=== PATIENT | female | born 1955 | race Caucasian/White ===

== ENCOUNTER 2018-03-17 16:45 | Outpatient (REF) | payer MEDICARE, MEDICAID, SELFPAY ==
[2018-03-17 20:09] LABS: TSH 4.51 uIU/mL (0.358-3.74)
== END 2018-03-17 17:05 ==
LOC: NCHCN 16:45
PROVIDERS: PCP Internal Medicine; Visit Provider Internal Medicine
DX: R26.81 Unsteadiness on feet (principal); E05.00 Thyrotoxicosis with diffuse goiter without thyrotoxic crisis or storm; I10 Essential (primary) hypertension; L84 Corns and callosities
CPT/HCPCS: 84443

== ENCOUNTER 2018-07-04 13:02 | Inpatient (IN) | payer MEDICARE, MEDICAID, SELFPAY ==
[2018-07-04] VITALS (95 sets, daily range): BP systolic 65–106; BP diastolic 42–90; PULSE 64–99; RESP 9–23; TEMP 36.8–37.2; O2SAT 92–100
--- NOTE | 2018-07-04 13:17 | DI.RAD_ITS ---
SYMPTOMS/DIAGNOSIS: COUGH PORTABLE CHEST: There are no prior comparison exams. The heart size is normal. The film is rotated. The lungs appear clear. No infiltrate or effusion is seen. IMPRESSION: No acute abnormality.
--- NOTE | 2018-07-04 13:22 | ED.GENADUL_ITS ---
Discharge Plan Disposition Patient Disposition: [facility] INPATIENT Condition: Serious Discharge Details Chief Complaint: GenMedical Clinical Impression: Acute hypotension, Acute UTI, Acute dehydration, Acute kidney injury, Cough, Acute hypokalemia Primary Care Provider: Souleymane Muller ED Provider: Bg Gautam Home Meds and New Rx's Prescriptions: No Action loperamide 2 mg Capsule 2 mg PO DAILY AM RF: 0 fluconazole [Diflucan] 150 mg Tablet 150 mg PO ONCE RF: 0 donepezil [Aricept] 10 mg Tablet 10 mg PO DAILY RF: 0 olanzapine [Zyprexa] 5 mg Tablet 10 mg PO DAILY RF: 0 sumatriptan succinate 50 mg Tablet 50 mg PO PRN PRNRF: 0 omeprazole 40 mg Capsule,Delayed Release(Dr/Ec) 40 mg PO DAILY RF: 0 nystatin 100,000 unit/gram Cream 1 applic TOPICAL TID RF: 0 methimazole 5 mg Tablet 5 mg PO DAILY RF: 0 hydrochlorothiazide 25 mg Tablet 25 mg PO DAILY RF: 0 ProAir HFA 90 mcg/actuation Hfa Aerosol Inhaler 2 % Inhalation PRN PRNRF: 0 lisinopril 40 mg Tablet 40 mg PO DAILY RF: 0 cholecalciferol (vitamin D3) [Vitamin D3] 1,000 unit Capsule 1 tab PO DAILY RF: 0 memantine 10 mg Tablet 10 mg PO BID RF: 0 Medical Decision Making This is a 63-year-old female who presents for evaluation of weakness and decreased energy over the last few days. She did have a fever 5 days ago but this is currently gone, and has been gone for the last few days. No episodes of diarrhea or vomiting. No complaint of significant chest or abdominal pain. Physical exam demonstrates slightly low blood pressure however heart rate is reassuring. No fever. PCP was concerned for urinary infection. We will rehydrate the patient, evaluate for any potential infection, and check for an acute abdominal pathology with the patient's slightly firm abdominal hernia. This may be near her baseline, however I do feel that an incarcerated or strangulated hernia does need to be ruled out based on her current clinical presentation. Patient has not eaten anything since last night. 5:01 PM Patient's laboratory workup has returned, she demonstrates notable acute kidney injury with an elevated creatinine, she has an elevated white count, left shift, but no bandemia. No evidence of significant anemia. Potassium is low at 2.6, magnesium is within normal limits. Lactate is elevate. TSH is normal, doubt myxedema coma. Urinalysis is slightly elevated with a WBC count of 5-10, and RBCs of 3-5. Chest x-ray is negative per Dr. Alvarez, CT scan of the abdomen shows a large cystic structure in her anterior abdominal wall but no other significant abnormality or signs of infection. Influenza was negative. In spite of the negative chest x-ray the patient does continue to have a cough. I am unsure as to the exact etiology of her symptoms, however the patient's blood pressure continues to remain low. The patient oscillates between a map of 55 to a map of 65. Trending towards the lower end. 3 units of normal saline were administered to the patient and in spite of this she continued to have low blood pressure. Assessment of the IVC was ineffective secondary to the patient's habitus. However bedside evaluation of her IJ is demonstrated plump internal jugular vessels after fluid resuscitation. In spite of the fluid replacement with the continued low pressure we will start the patient on Levophed, and place a right central line. I have started the patient on Rocephin and azithromycin to cover urinary components with potential community-acquired pneumonia coverage. She demonstrates no evidence of meningitis with no nuchal rigidity, neck pain. We will wait for the hospitalist to call back for admission. 6: 36 PM Case was discussed with Dr. Corey, he agrees with assessment and plan. I have extensively reviewed the treatment plan with the patient. I have addressed all patient concerns at this time. I have also discussed the plan with the admitting physician and they agree with the current assessment and plan and have agreed to assume responsibility for the patient. All parties demonstrate verbal understanding and agreement with our assessment and plan at this time. EKG 18: 23 Rate 75, sinus rhythm, inverted T wave in V1 through V6. No ST elevations or depressions. No previous EKG for comparison Procedure: Internal Jugular Central Venous Catheter Indication: Hemodynamic monitoring/Intravenous access PROCEDURE SUMMARY: A time-out was performed. The patient?s right neck region was prepped and draped in sterile fashion using chlorhexidine scrub. Anesthesia was achieved with 1% lidocaine. The internal jugular vein was accessed under ultrasound guidance using a finder needle.Venous blood was withdrawn. A guidewire was advanced through the needle. A small incision was made with a 10 blade scalpel and the dilator was advanced over the guidewire until appropriate dilation was obtained. The dilator was removed and a triple lumen catheter was a dvanced over the guidewire and secured into place with 2 simple interrupted sutures. At time of procedure completion, all ports aspirated and flushed properly. Post-procedure x-ray shows the tip of the catheter within the superior vena cava. ESTIMATED BLOOD LOSS: 5ml?s The patient tolerated the procedure well there were no complications. HPI General Date/Time Provider Initiated Documentation: 07/04/18 13:03 . HPI Narrative: This is a 63-year-old female with a past medical history of developmental delay, Parkinson's, hypertension, schizophrenia thyroid disease who presents today for evaluation after being sent by her primary care provider in [place]. They report that the patient had a mild fever on Saturday/5 days ago, but none since then. She has had notable weakness since then, and slight difficulty performing her ADLs at home. She has been getting assistance from her sisters. She did see her primary care provider where she was diagnosed with a yeast infection in her groin, started on one oral fluconazole and then topical powder. However in spite of this she is continued to be weak, family states that she appears to be off her normal baseline. Normal mental status though is near baseline per her PCP. Due to the patient's developmental delay she has no additional complaints. No history of vomiting, diarrhea, hematemesis, hematochezia, melena, or acholic stool. No complaint of severe abdominal pain but she does admit to mild abdominal pain over the location of her abdominal hernia. Past surgical history is positive for multiple hernia repairs. Patient and family deny any IV or illicit drug use. No other complaints at this time. No other modifying factors. Related Data Home Medications Medication Instructions Recorded Confirmed albuterol sulfate [ProAir HFA] 2 % INHALATION PRN PRN 07/04/18 07/04/18 cholecalciferol (vitamin D3) 1 tab PO DAILY 07/04/18 07/04/18 [Vitamin D3] donepezil [Aricept] 10 mg PO DAILY 07/04/18 07/04/18 fluconazole [Diflucan] 150 mg PO ONCE 07/04/18 hydrochlorothiazide 25 mg PO DAILY 07/04/18 07/04/18 lisinopril 40 mg PO DAILY 07/04/18 07/04/18 loperamide 2 mg PO DAILY AM 07/04/18 07/04/18 memantine 10 mg PO BID 07/04/18 07/04/18 methimazole 5 mg PO DAILY 07/04/18 07/04/18 nystatin 1 applic TOPICAL TID 07/04/18 07/04/18 olanzapine [Zyprexa] 10 mg PO DAILY 07/04/18 07/04/18 omeprazole 40 mg PO DAILY 07/04/18 07/04/18 sumatriptan succinate 50 mg PO PRN PRN 07/04/18 07/04/18 Allergies Allergy/AdvReac Type Severity Reaction Status Date / Time Sulfa (Sulfonamide Allergy Mild Skin Rash Unverified 07/04/18 13:11 Antibiotics) General Stated Complaint: GenMedical TIFFANY: 3 Review of Systems Review of Systems All systems reviewed & are unremarkable except as noted in HPI and below PFSH Social History Smoking/Tobacco Use Status: Never Exam Narrative Exam Narrative: 1.Const: Well-nourished, Well-developed, appearing stated age 2.Eyes: PERRL, no conjunctival injection, and symmetrical lids. 3.ENT: Atraumatic external nose and ears. Moist MM. Neck: Symmetric, trachea midline, No thyromegaly. Patient demonstrates good movement of cervical neck. There is no nuchal rigidity, no nuchal tenderness. Patient is able to flex the neck without any difficulty or significant pain. Negative Kernig's and Brudzinski sign. 4.CVS: +S1/S2, No murmurs or gallops. Peripheral pulses 2+ and equal in all extremities. Brisk capillary refill in all extremities. 5.RESP: Unlabored respiratory effort. Clear to auscultation bilaterally. No wheezes rales or rhonchi 6.GI: Soft,Nondistended, No hepatosplenomegaly. No guarding or rebound. Patient does have a notable right-sided periumbilical hernia. It is firm with no evidence of erythema or edema. It is mildly tender on palpation. I am unable to reduce it. 7.MSK: Normocephalic/Atraumatic, Extremities w/o deformity or ttp No cyanosis or clubbing, Normal movement of all extremities 8.Skin: Warm, Dry. Patient does have a chronic left-sided ulcer which is well healed, no evidence of active bleeding or discharge. Excellent all the granulation tissue with no signs of current active ulcer. Minimal erythema under 1 of the patient's pannus folds on the right by her groin. No evidence of severe yeast infection. No evidence of significant decubitus ulcer. 9.Neuro: digital cartographer II-XII grossly intact. Sensation grossly intact, no focal neurologic deficits. 10.Psych: (AAO) x3. Appropriate mood and affect. Patient answers questions appropriately for her mental baseline Course Vital Signs Temperature 36.9 C 07/04/18 13:06 Pulse 81 07/04/18 13:06 Respiratory Rate 18 07/04/18 13:06 Blood Pressure 90/71 L 07/04/18 13:06 Pulse Oximetry 100 07/04/18 13:06 Temperature 36.9 C 07/04/18 13:06 Temperature Source Temporal Artery Scan 07/04/18 13:06 Pulse 81 07/04/18 13:06 Respiratory Rate 18 07/04/18 13:06 Respiratory Effort 07/04/18 13:14 Blood Pressure 90/71 L 07/04/18 13:06 Blood Pressure Position Sitting 07/04/18 13:06 Pulse Oximetry 100 07/04/18 13:06 Oxygen Delivery Method Room Air 07/04/18 13:06 Oxygen Flow Rate 0 07/04/18 13:06
[2018-07-04] MEDS: Normal Saline 1,000 ML 1000 ML IV ×3 (13:29→14:03)
[2018-07-04 13:36] LABS: Lactate-non-spesis 1.9 mmol/L (0.6-1.4)
[2018-07-04 13:38] LABS: Abs Immature Grans 0.05 k/cumm (0.0-0.09); Basophils % 0.3; Eosinophils % 0.3; HCT 40.6 % (36.0-46.0); Immature Grans % 0.3; Lymphocytes % 15.1; Mean Corp. HGB Concentration 34.5 g/dL (32.0-36.0); Mean Corpuscular Hemoglobin 24.7 pg (27.0-33.0); Mean Corpuscular Volume 71.7 fL (80-95); Mean Platelet Volume 10.6 fL (8.0-11.0); Monocytes % 12.1; Neutrophils % 71.9; Platelet Count 525 x1000/uL (130-400); RBC 5.66 m/cumm (4.00-5.20); RBC Distribution Width 15.5 % (11.7-14.6); White Blood Cell Count 14.87 k/cumm (4.4-10.8)
[2018-07-04 13:43] LABS: Bilirubin Negative (Negative); Blood Trace-intact (Negative); Clarity Clear; Glucose Negative (Negative); Ketones Negative (Negative); Leukocyte Esterase Negative (Negative); Nitrite Negative (Negative); Urobilinogen 0.2 EU/dL (Up TO 0.2)
[2018-07-04 13:58] LABS: Absolute Basophil Count 0.04 k/cumm (0.0-0.2); Absolute Eosinophil Count 0.04 k/cumm (0.0-0.7); Absolute Lymphocyte Count 2.25 k/cumm (1.2-3.4); Absolute Neutrophil Count 10.69 k/cumm (1.2-6.7)
[2018-07-04 14:01] LABS: Microcytosis 2+
[2018-07-04 14:06] LABS: ALT 29 U/L (12-78); AST 28 U/L (15-37); Albumin 4.3 g/dL (3.4-5.0); Alkaline Phosphatase 143 U/L (46-116); Anion Gap 12.8 mmol/L (3-11); BUN 20 mg/dL (7-18); Bilirubin, Total 0.5 mg/dL (0.2-1.0); CO2 30.2 mmol/L (21.0-32.0); CREATININE 2.53 mg/dL (0.55-1.02); Chloride 84 mmol/L (98-107); Estimated GFR 19.19 (mL/min/1.73m2); Glucose 107 mg/dL (70-100); Lipase 252 U/L (73-393); Sodium 127 mmol/L (136-145); TSH (W/Ref FT4) 3.03 uIU/mL (0.358-3.74); Total Protein 8.2 g/dL (6.4-8.2)
[2018-07-04 14:09] LABS: Potassium 2.6 mmol/L (3.5-5.1)
[2018-07-04 14:13] LABS: Ovalocytes 2+
[2018-07-04] MEDS: Potassium Chloride 20 MEQ TABCR 40 MEQ PO (14:15)
[2018-07-04] MEDS: POTASSIUM CHLORIDE 20 MEQ/100 ML BAG 50 MEQ IVPB (14:15)
[2018-07-04 14:26] LABS: Bacteria Few HPF (Negative); C & S Indicated? Yes; Casts 3-5 Hyaline LPF (Negative); Crystals Negative HPF (Negative); Epithelial Cells Rare HPF (Negative); Mucus Trace (Negative)
[2018-07-04] MEDS: Breeza Beverage 473 ML BTL PO (15:07)
[2018-07-04] MEDS: Omnipaque 350 MG/ML 50 ML BTL PO (15:07)
--- NOTE | 2018-07-04 15:20 | DI.CT_ITS ---
SYMPTOMS/DIAGNOSIS: SLIGHT CONFUSION, DEVELOPMENTAL DELAY, SLURRED SPEECH NONCONTRAST HEAD CT: There are no prior comparison exams. No intracranial hemorrhage, mass or infarct is seen. There is no evidence of skull fracture. The ventricles are normal in size. The orbits and sinuses are unremarkable. IMPRESSION: Negative head CT.
--- NOTE | 2018-07-04 15:25 | DI.CT_ITS ---
SYMPTOMS/DIAGNOSIS: ABDOMINAL PAIN, KNOWN HERNIA INCREASING IN SIZE X 1 YEAR, PAIN OVER HERNIA SITE, FIRM ANTERIOR HERNIA, NOT EATING WELL, DEVELOPMENTAL DELAY CT OF THE ABDOMEN AND PELVIS: Images were performed from the lung bases through the ischial tuberosities after oral and without IV contrast. The patient has a history of a hernia repair. In the subcutaneous tissue of the midline of the anterior abdomen, near the level of the umbilicus, there is an 11 mm circumscribed fluid collection, likely representing a seroma. No hernia is identified. The lung bases are clear. There is a posteromedial fatty-containing diaphragmatic hernia. The heart size is normal. The liver, spleen, pancreas, kidneys and right adrenal gland are unremarkable. There is a small low density nodule of the left adrenal gland consistent with an adenoma. A single stone is noted in the gallbladder. There is no abnormal gallbladder distention, wall thickening or biliary dilatation. The aorta is tortuous but normal in diameter. A Bell catheter is noted in the bladder, which is decompressed. The uterus and ovaries are unremarkable. There are numerous diverticula seen of the descending and sigmoid colon. There is no evidence of diverticulitis. No small bowel dilatation or wall thickening is seen. IMPRESSION: An 11 cm cyst in the umbilical region. The findings could represent a seroma. No hernia is identified. No acute abnormality is seen intraabdominally.
[2018-07-04] MEDS: AZITHROMYCIN 500 MG in Normal Saline 250 ML 250 MG IVPB (16:41)
--- NOTE | 2018-07-04 16:44 | DI.RAD_ITS ---
SYMPTOMS/DIAGNOSIS: POST LINE PORTABLE CHEST: Comparison is made with exam performed earlier the same day at 1:34 p.m. The exam is limited by respiratory motion. A right internal jugular central venous catheter has been placed. The tip projects in the upper right atrium. No pneumothorax is seen. The lungs are grossly clear but show motion. The heart size is normal. IMPRESSION: Satisfactory placement of central venous catheter.
--- NOTE | 2018-07-04 17:00 | DI.VRAD_ITS ---
EXAM: XR Chest, 1 View EXAM DATE/TIME: 07/04/2018 4:44 PM CLINICAL HISTORY: 63 years old, female; Device placement; Picc TECHNIQUE: XR of the chest, 1 view. COMPARISON: CR XR PORTABLE CHEST AP 07/04/2018 1:34 PM FINDINGS: Tubes, catheters and devices: A right jugular central venous catheter lies with its tip in the superior vena cava. Lungs: Unremarkable. No consolidation. Pleural space: Unremarkable. No pleural effusion. No pneumothorax. Heart/Mediastinum: Unremarkable. No cardiomegaly. Bones/joints: Chronic osseous changes. IMPRESSION: Right jugular venous catheter appears well-positioned. Dictated and Authenticated by: Gurdeep Carlin MD. Ordering:SUKH Pederson MD
[2018-07-04] MEDS: Hydrocortisone SOD SUC. 100 MG VIAL IVP (18:04)
--- NOTE | 2018-07-04 18:48 | HPE_ITS ---
Date of service: 07/04/18 Time of Service: 18:44 Assessment and Plan (1) Hypotension: Current visit: Yes Status: Acute Hypotension, etiology not entirely clear at present infectious source entirely possible but lack of fever and relatively underwhelming urinalysis would be atypical. I am struck by the lack of reflex tachycardia. I see no medications which would revisit be responsible for this and I wonder about a possible cardiogenic factor. Certainly the EKG would be consistent with coronary ischemia although this finding of bradycardia would be most usually associated with an inferior GA and we see no signs of that on EKG. otherwise there are certainly no signs of hemorrhagic shock and the remote possibility of adrenal insufficiency has been covered by empiric hydrocortisone. For now would continue antibiotics, await blood culture and complete rule out protocol In the meantime will replace potassium. The hyponatremia is noted, certainly of the hypovolemic variety. Will hold hydrochlorothiazide of course and continue saline. of course will hold the lisinopril as well given the hypo-to History of Present Illness Chief Complaint: Weakness and hypotension Narrative: Patient is a 63-year-old female with history of developmental delay. She was sent to the emergency room today because of several days of nonspecific weakness. In the emergency room initial findings of note for hypotension with blood pressures in the 60s systolic. She was given fluid resuscitation and started on levophed. Initial laboratory evaluation of note for leukocytosis, low-grade pyuria (5-10 white cells), negative chest x-ray and CT of abdomen unremarkable except for a known cyst in the right lower quadrant. She was given dose of Rocephin and Zithromax along with 100 mg of hydrocortisone. She was admitted for further evaluation and management. The patient herself says she feels entirely well Review of Systems Review of Systems Unobtainable due to mental condition COUNTS INCLUDE 234 BEDS AT THE [facility] Social History Smoking/Tobacco Use Status: Never Meds Home Medications Medication Instructions Recorded Confirmed Type albuterol sulfate [ProAir HFA] 2 % INHALATION PRN PRN 07/04/18 07/04/18 History cholecalciferol (vitamin D3) 1 tab PO DAILY 07/04/18 07/04/18 History [Vitamin D3] donepezil [Aricept] 10 mg PO DAILY 07/04/18 07/04/18 History fluconazole [Diflucan] 150 mg PO ONCE 07/04/18 History hydrochlorothiazide 25 mg PO DAILY 07/04/18 07/04/18 History lisinopril 40 mg PO DAILY 07/04/18 07/04/18 History loperamide 2 mg PO DAILY AM 07/04/18 07/04/18 History memantine 10 mg PO BID 07/04/18 07/04/18 History methimazole 5 mg PO DAILY 07/04/18 07/04/18 History nystatin 1 applic TOPICAL TID 07/04/18 07/04/18 History olanzapine [Zyprexa] 10 mg PO DAILY 07/04/18 07/04/18 History omeprazole 40 mg PO DAILY 07/04/18 07/04/18 History sumatriptan succinate 50 mg PO PRN PRN 07/04/18 07/04/18 History Allergies Allergy/AdvReac Type Severity Reaction Status Date / Time Sulfa (Sulfonamide Allergy Mild Skin Rash Unverified 07/04/18 13:11 Antibiotics) Exam Narrative Exam Narrative: Blood pressure 80/50, pulse 74, respirations 18, temp 36.9 HEENT is unremarkable, neck supple, lungs diminished breath sounds but clear, heart is distant but regular rate and rhythm. Abdomen is soft and nontender there is a 10-12 cm superficial cystic-like mass in the right lower quadrant. Pelvic and rectal exams deferred. Extremities without edema. Neurological patient is oriented x1 moves all 4 extrema Laboratory: White count is 14.8 hematocrit 40 platelets 520 sodium 127 potassium 2.6 chloride 84 bicarb 30 BUN 20 creatinine 2.5 glucose 107 lactate 1.9 TSH 3.0 urinalysis 3-5 red cells 5-10 white cells. Chest x-ray and CT as described above. EKG shows sinus rhythm with diffuse T wave inversions, no prior tracing for comparison Results Labs : 07/04/18 13:15 07/04/18 13:15 Laboratory Results - last 24 hr 07/04/18 07/04/18 07/04/18 13:15 13:15 13:15 WBC 14.87 H RBC 5.66 H Hgb 14.0 Hct 40.6 MCV 71.7 L MCH 24.7 L MCHC 34.5 RDW 15.5 H Plt Count 525 H MPV 10.6 Immature Gran % 0.3 Neutrophils % 71.9 Lymphocytes % 15.1 Monocytes % 12.1 Eosinophils % 0.3 Basophils % 0.3 Absolute Neutrophils 10.69 H Absolute Lymphocytes 2.25 Absolute Monocytes 1.80 H Absolute Eosinophils 0.04 Absolute Basophils 0.04 RBC Morphology See below Microcytosis 2+ Ovalocytes 2+ Sodium 127 L Potassium 2.6 L* Chloride 84 L Carbon Dioxide 30.2 Anion Gap 12.8 H BUN 20 H Creatinine 2.53 H Estimated GFR/1.73 m2 19.19 Glucose 107 H Lactate 1.9 H Calcium 10.0 Magnesium Total Bilirubin 0.5 AST 28 ALT 29 Alkaline Phosphatase 143 H Total Protein 8.2 Albumin 4.3 Lipase 252 TSH 3.03 Urine Color Urine Clarity Urine pH Ur Specific [place] Urine Protein Urine Ketones Urine Blood Urine Nitrite Urine Bilirubin Urine Urobilinogen Ur Leukocyte Esterase Urine RBC Urine WBC Ur Epithelial Cells Urine Crystals Urine Bacteria Urine Casts Urine Mucus Ur Culture Indicated? Urine Glucose 07/04/18 07/04/18 13:15 13:15 WBC RBC Hgb Hct MCV MCH MCHC RDW Plt Count MPV Immature Gran % Neutrophils % Lymphocytes % Monocytes % Eosinophils % Basophils % Absolute Neutrophils Absolute Lymphocytes Absolute Monocytes Absolute Eosinophils Absolute Basophils RBC Morphology Microcytosis Ovalocytes Sodium Potassium Chloride Carbon Dioxide Anion Gap BUN Creatinine Estimated GFR/1.73 m2 Glucose Lactate Calcium Magnesium 2.0 Total Bilirubin AST ALT Alkaline Phosphatase Total Protein Albumin Lipase TSH Urine Color Yellow Urine Clarity Clear Urine pH 7.0 Ur Specific [place] 1.020 Urine Protein 100 H Urine Ketones Negative Urine Blood Trace-intact H Urine Nitrite Negative Urine Bilirubin Negative Urine Urobilinogen 0.2 Ur Leukocyte Esterase Negative Urine RBC 3-5 H Urine WBC 5-10 Ur Epithelial Cells Rare Urine Crystals Negative Urine Bacteria Few Urine Casts 3-5 hyaline Urine Mucus Trace Ur Culture Indicated? Yes Urine Glucose Negative Last Vital Signs Temp 36.9 C 07/04/18 13:06 Pulse 74 07/04/18 17:06 Resp 18 07/04/18 14:33 BP 88/52 L 07/04/18 18:39 Pulse Ox 100 07/04/18 13:21
[2018-07-04 19:10] LABS: Troponin I < 0.02 ng/mL (0.00-0.06)
[2018-07-04 19:57] LABS: Troponin I < 0.02 ng/mL (0.00-0.06)
[2018-07-04] MEDS: POTASSIUM CHLORIDE/0.9% NACL 1,000 ML 150 MEQ IV (21:09)
[2018-07-04] MEDS: Normal Saline Flush 10 ML SYR IVP ×3 (21:12→23:32)
[2018-07-04] MEDS: OLANZapine 5 MG TAB 10 MG PO (22:02)
[2018-07-04] MEDS: Donepezil 5 MG TAB 10 MG PO (22:02)
[2018-07-04] MEDS: Memantine 5 MG TAB 10 MG PO (22:02)
[2018-07-04] MEDS: Methimazole 5 MG TAB PO (22:03)
[2018-07-04] MEDS: Normal Saline 500 ML IV (23:32)
[2018-07-05] VITALS (144 sets, daily range): BP systolic 54–133; BP diastolic 36–99; PULSE 48–105; RESP 10–41; TEMP 36.3–36.9; O2SAT 89–100
[2018-07-05] MEDS: Normal Saline Flush 10 ML SYR IVP ×3 (02:19→09:23)
[2018-07-05] MEDS: POTASSIUM CHLORIDE/0.9% NACL 1,000 ML 150 MEQ IV ×3 (05:52→19:54)
[2018-07-05] MEDS: Loperamide 2 MG CAP PO (06:16)
[2018-07-05 07:14] LABS: HCT 33.5 % (36.0-46.0); HGB 11.1 g/dL (12.0-15.5); Mean Corp. HGB Concentration 33.1 g/dL (32.0-36.0); Mean Corpuscular Hemoglobin 24.6 pg (27.0-33.0); Mean Corpuscular Volume 74.1 fL (80-95); Mean Platelet Volume 10.9 fL (8.0-11.0); Platelet Count 349 x1000/uL (130-400); RBC 4.52 m/cumm (4.00-5.20); RBC Distribution Width 15.6 % (11.7-14.6); White Blood Cell Count 12.49 k/cumm (4.4-10.8)
[2018-07-05 07:24] LABS: Anion Gap 10.4 mmol/L (3-11); BUN 12 mg/dL (7-18); CO2 25.6 mmol/L (21.0-32.0); CREATININE 1.48 mg/dL (0.55-1.02); Chloride 98 mmol/L (98-107); Estimated GFR 35.62 (mL/min/1.73m2); Sodium 134 mmol/L (136-145)
[2018-07-05 07:35] LABS: Potassium 2.8 mmol/L (3.5-5.1)
--- NOTE | 2018-07-05 07:58 | PDOC.CMIN ---
Care Management Initial Assess REASON FOR HOSPITALIZATION:: Hypotension PAST MEDICAL HISTORY/PAST SURGICAL HISTORY:: Hypertension, Parkinson's Disease, Schizophrenia, Graves disease, hx of bleeding stomach ulcer, hernia repair, surgeries on bilateral feet with plates, tubectomy with oophorectomy PREVIOUS FUNCTIONAL STATUS/SOCIAL/FAMILY SUPPORTS:: Christie resides alone in [place], [place]. She has sisters who support her with ADLs, Netta also resides in [place] and her other sister, Tiny resides about forty minutes away. Tiny shares that the family privately pays a woman who provides house cleaning, groceris and meal prep. CURRENT FUNCTIONAL STATUS:: Christie was lying in bed, elevated when CM met with her. She was pleasant in interaction and able to answer questions accurately about where she lives. ADVANCE DIRECTIVES:: None on file at [facility]. Has patient been provided with information about the portal?: Yes Did the patient sign up for the portal?: No CODE STATUS:: Full Code INSURANCE COVERAGE / FINANCIAL ISSUES:: Medicare. Medicaid CURRENT HOME/COMMUNITY SERVICES/EQUIPMENT:: Disability, private paid homemaker, MOW, FWW PRIMARY CARE PHYSICIAN:: Souleymane Muller POTENTIAL DISCHARGE NEEDS:: Coordination of additional services on discharge; CM referral/communication. PATIENT/FAMILY EDUCATION NEEDS:: Review of discharge needs, community based supports, self care needs upon discharge. ANTICIPATED BARRIERS TO DISCHARGE:: None identified. TRANSPORTATION:: Via private vehicle with family or friend. PLAN:: Christie will return home when ready per MD. She will follow up with her PCP, resume current supports and be evaluated for further needs. CM will continue to monitor clinical status and support discharge planning considerations. Christie will transport via private vehicle with family or friend.
[2018-07-05] MEDS: Potassium Chloride 20 MEQ TABCR 40 MEQ PO ×2 (09:16→16:40)
[2018-07-05] MEDS: POTASSIUM CHLORIDE 20 MEQ/100 ML BAG 50 MEQ IVPB (09:16)
[2018-07-05] MEDS: Memantine 5 MG TAB 10 MG PO ×2 (09:16→20:03)
[2018-07-05] MEDS: AZITHROMYCIN 250 MG in Normal Saline 250 ML IVPB (13:52)
[2018-07-05 14:18] LABS: Lactate-non-spesis 3.4 mmol/L (0.6-1.4)
[2018-07-05] MEDS: Hydrocortisone SOD SUC. 100 MG VIAL 50 MG IVP ×2 (14:48→20:02)
[2018-07-05] MEDS: VANCOMYCIN 750 MG in Normal Saline 250 ML 250 MG IV (16:41)
--- NOTE | 2018-07-05 17:53 | W.PM.PROGNOT ---
Date of Service Date of service: 07/05/18 Time of Service: 17:53 Assessment and Plan (1) Hypotension: Current visit: Yes Status: Acute Unusual findings of hypotension with evidence of end-organ damage with KJ and elevation in Lactate - unknown etiology. Initial thought regarding Sepsis/SIRS type picture, but without clear source. Potential for UTI but very weakly positive urinalysis, and with Blood and Urine Cultures both thus far negative. However, did broaden antibiotic therapy to Vancomycin & Meropenem in case of Sepsis with Urinary Source while awaiting Culture results. Also initiated on stress dosed steroids in case of adrenal insufficiency. Continue on pressor therapy and IVFs and monitor fluid status carefully. No signs of anaphylaxis. Check TSH to rule out Hypothyroidism. Again unsure of adrenal crisis as diagnosis - stress dose steroids as above. Check ECHO to rule out cardiogenic etiology. No persistent arrhythmias on monitor. Of note, patient's sister reports that she was just started on thiazide therapy as an outpatient for uncontrolled HTN. Unsure if this is a contributing or sole factor here - both YAMEL-I and HCTZ on hold. (2) KJ (acute kidney injury): Current visit: Yes Status: Acute Likely in setting of hypotension, poor perfusion, with concurrent HCTZ and YAMEL-I use. Both meds on hold, with pressor support and IVFs as above. Creatinine improved this morning. (3) Schizophrenia: Current visit: Yes Status: Chronic Noted. Continue home meds. (4) DVT prophylaxis: Current visit: Yes Status: Acute SC Lovenox. Subjective Interval history since last seen: 63-year-old woman with history of developmental delay and Hypertension, admitted from [facility] with a diagnosis of Hypotension. Ms. Gardiner has a history of developmental delay and cognitive dysfunction, HTN, GERD, and Schizophrenia. She was initially sent to the emergency room today because of several days of nonspecific weakness. In the ED she was noted to be significantly hypotensive with blood pressures in the 60s systolic, but interestingly without related tachycardia. She was given fluid resuscitation and started on levophed. Initial laboratory evaluation of note for leukocytosis, low-grade pyuria (5-10 white cells), negative chest x-ray and CT of abdomen unremarkable except for a known cyst in the right lower quadrant. She was then referred for admission for further evaluation and treatment. This morning the patient's blood pressure appears improved but still requiring pressor support. She remains afebrile. Her Urine and Blood Cultures remain negative. Exam Narrative Exam Narrative: General: Patient appears comfortable, Awake and Alert, enjoying dinner, NAD Neck: Supple CV: Regular, nontachycardic, S1S2, No rubs, murmurs, or gallops. Pulmonary: Clear to auscultation bilaterally, no crackles, wheezing, or rhonchi Abdomen: + Bowel Sounds, soft, nontender, nondistended Vascular: No lower extremity edema Psych: Normal mood and affect. Objective Objective Clinical Data: Abnormal lab results 07/05/18 07/05/18 07/05/18 Range/Units 06:39 06:39 14:10 WBC 12.49 H (4.4-10.8) k/cumm Hgb 11.1 L D (12.0-15.5) g/dL Hct 33.5 L (36.0-46.0) % MCV 74.1 L (80-95) fL MCH 24.6 L (27.0-33.0) pg RDW 15.6 H (11.7-14.6) % Sodium 134 L (136-145) mmol/L Potassium 2.8 L* (3.5-5.1) mmol/L Creatinine 1.48 H D (0.55-1.02) mg/dL Lactate 3.4 H (0.6-1.4) mmol/L Vital Signs Temperature 36.8 C 07/05/18 16:00 Temperature Source Temporal Artery Scan 07/05/18 16:00 Pulse 87 07/05/18 17:00 Pulse 80 07/05/18 17:10 Respiratory Rate 15 07/05/18 17:10 Respiratory Effort 07/05/18 16:00 Respiratory Depth Normal 07/05/18 16:00 Respiratory Pattern Normal 07/05/18 16:00 Blood Pressure 99/67 L 07/05/18 17:00 Blood Pressure Mean 76 07/05/18 17:00 Blood Pressure Position Left Lateral 07/05/18 16:00 Pulse Oximetry 97 07/05/18 17:10 Oxygen Delivery Method Room Air 07/05/18 16:00 Oxygen Flow Rate 0 07/05/18 16:00 Pain Level 0 07/05/18 16:00 Intake & Output 07/04/18 07/05/18 07/05/18 23:59 11:59 23:59 Intake Total 4412.000 / 4412.000 2169.637 / 3872.631 1702.994 / 3872.631 Output Total 2049 650 / 1500 850 / 1500 Balance 2362.000 / 2362.000 1519.637 / 2372.631 852.994 / 2372.631 Weight 89.1 kg 92 kg 92 kg Intake: IV 4052.000 / 4052.000 1689.637 / 3192.631 1502.994 / 3192.631 Oral 360 / 360 480 / 680 200 / 680 Output: Urine 2049 650 / 1500 850 / 1500 Other: Urine Color Pale Pale Straw Yellow Yellow Urine Appearance Clear Clear Cloudy Comment Campbell catheter in place and draining straw colored urine. Chem strip showing mod. leukocytes, pH of 5, SG of 1.020 and mod. blood campbell Stool Occult Blood Negative Negative Stool Size Smear Small Small Stool Characteristics Liquid Liquid Liquid Brown [facility] Laboratory Results WBC 12.49 k/cumm (4.4-10.8) H 07/05/18 06:39 RBC 4.52 m/cumm (4.00-5.20) 07/05/18 06:39 Hgb 11.1 g/dL (12.0-15.5) L D 07/05/18 06:39 Hct 33.5 % (36.0-46.0) L 07/05/18 06:39 MCV 74.1 fL (80-95) L 07/05/18 06:39 MCH 24.6 pg (27.0-33.0) L 07/05/18 06:39 MCHC 33.1 g/dL (32.0-36.0) 07/05/18 06:39 RDW 15.6 % (11.7-14.6) H 07/05/18 06:39 Plt Count 349 x1000/uL (130-400) D 07/05/18 06:39 MPV 10.9 fL (8.0-11.0) 07/05/18 06:39 Immature Gran % 0.3 07/04/18 13:15 Neutrophils % 71.9 07/04/18 13:15 Lymphocytes % 15.1 07/04/18 13:15 Monocytes % 12.1 07/04/18 13:15 Eosinophils % 0.3 07/04/18 13:15 Basophils % 0.3 07/04/18 13:15 Absolute Neutrophils 10.69 k/cumm (1.2-6.7) H 07/04/18 13:15 Absolute Lymphocytes 2.25 k/cumm (1.2-3.4) 07/04/18 13:15 Absolute Monocytes 1.80 k/cumm (0.11-0.7) H 07/04/18 13:15 Absolute Eosinophils 0.04 k/cumm (0.0-0.7) 07/04/18 13:15 Absolute Basophils 0.04 k/cumm (0.0-0.2) 07/04/18 13:15 RBC Morphology See below 07/04/18 13:15 Microcytosis 2+ 07/04/18 13:15 Ovalocytes 2+ 07/04/18 13:15 Sodium 134 mmol/L (136-145) L 07/05/18 06:39 Potassium 2.8 mmol/L (3.5-5.1) L* 07/05/18 06:39 Chloride 98 mmol/L (98-107) 07/05/18 06:39 Carbon Dioxide 25.6 mmol/L (21.0-32.0) 07/05/18 06:39 Anion Gap 10.4 mmol/L (3-11) 07/05/18 06:39 BUN 12 mg/dL (7-18) D 07/05/18 06:39 Creatinine 1.48 mg/dL (0.55-1.02) H D 07/05/18 06:39 Estimated GFR/1.73 m2 35.62 (mL/min/1.73m2) 07/05/18 06:39 Glucose 107 mg/dL (70-100) H 07/04/18 13:15 Lactate 3.4 mmol/L (0.6-1.4) H 07/05/18 14:10 Calcium 10.0 mg/dL (8.5-10.1) 07/04/18 13:15 Magnesium 2.0 mg/dL (1.8-2.4) 07/04/18 13:15 Total Bilirubin 0.5 mg/dL (0.2-1.0) 07/04/18 13:15 AST 28 U/L (15-37) 07/04/18 13:15 ALT 29 U/L (12-78) 07/04/18 13:15 Alkaline Phosphatase 143 U/L (46-116) H 07/04/18 13:15 Troponin I < 0.02 ng/mL (0.00-0.06) 07/04/18 19:14 Total Protein 8.2 g/dL (6.4-8.2) 07/04/18 13:15 Albumin 4.3 g/dL (3.4-5.0) 07/04/18 13:15 Lipase 252 U/L (73-393) 07/04/18 13:15 TSH 3.03 uIU/mL (0.358-3.74) 07/04/18 13:15 Urine Color Yellow (Yellow) 07/04/18 13:15 Urine Clarity Clear 07/04/18 13:15 Urine pH 7.0 (5-8) 07/04/18 13:15 Ur Specific [place] 1.020 (1.005-1.025) 07/04/18 13:15 Urine Protein 100 mg/dL (Negative) H 07/04/18 13:15 Urine Ketones Negative mg/dL (Negative) 07/04/18 13:15 Urine Blood Trace-intact (Negative) H 07/04/18 13:15 Urine Nitrite Negative (Negative) 07/04/18 13:15 Urine Bilirubin Negative (Negative) 07/04/18 13:15 Urine Urobilinogen 0.2 EU/dL (Up TO 0.2) 07/04/18 13:15 Ur Leukocyte Esterase Negative (Negative) 07/04/18 13:15 Urine RBC 3-5 (0-2) H 07/04/18 13:15 Urine WBC 5-10 HPF (0-5) 07/04/18 13:15 Ur Epithelial Cells Rare HPF (Negative) 07/04/18 13:15 Urine Crystals Negative HPF (Negative) 07/04/18 13:15 Urine Bacteria Few HPF (Negative) 07/04/18 13:15 Urine Casts 3-5 hyaline LPF (Negative) 07/04/18 13:15 Urine Mucus Trace (Negative) 07/04/18 13:15 Ur Culture Indicated? Yes 07/04/18 13:15 Urine Glucose Negative mg/dL (Negative) 07/04/18 13:15
[2018-07-05] MEDS: OLANZapine 5 MG TAB 10 MG PO (22:13)
[2018-07-05] MEDS: Methimazole 5 MG TAB PO (22:13)
[2018-07-05] MEDS: Donepezil 5 MG TAB 10 MG PO (22:13)
[2018-07-06] VITALS (112 sets, daily range): BP systolic 81–152; BP diastolic 11–120; PULSE 60–130; RESP 9–33; TEMP 35.9–37.1; O2SAT 93–100
[2018-07-06] MEDS: Normal Saline Flush 10 ML SYR IVP ×5 (00:39→23:11)
[2018-07-06] MEDS: Albuterol HFA 8 GM 60 PUFF INH IH (00:39)
[2018-07-06] MEDS: Hydrocortisone SOD SUC. 100 MG VIAL 50 MG IVP ×3 (01:21→14:15)
[2018-07-06] MEDS: POTASSIUM CHLORIDE/0.9% NACL 1,000 ML 150 MEQ IV ×3 (01:49→15:54)
[2018-07-06] MEDS: VANCOMYCIN 750 MG in Normal Saline 250 ML 250 MG IV ×2 (02:49→14:52)
[2018-07-06] MEDS: Loperamide 2 MG CAP PO (06:40)
[2018-07-06 07:36] LABS: Abs Immature Grans 0.03 k/cumm (0.0-0.09); Absolute Basophil Count 0.01 k/cumm (0.0-0.2); Absolute Eosinophil Count 0.01 k/cumm (0.0-0.7); Absolute Lymphocyte Count 1.17 k/cumm (1.2-3.4); Absolute Monocyte Count 0.76 k/cumm (0.11-0.7); Absolute Neutrophil Count 8.81 k/cumm (1.2-6.7); Basophils % 0.1; Eosinophils % 0.1; HCT 33.9 % (36.0-46.0); HGB 11.2 g/dL (12.0-15.5); Immature Grans % 0.3; Lymphocytes % 10.8; Mean Corpuscular Hemoglobin 24.7 pg (27.0-33.0); Mean Corpuscular Volume 74.7 fL (80-95); Mean Platelet Volume 10.3 fL (8.0-11.0); Neutrophils % 81.7; Platelet Count 343 x1000/uL (130-400); RBC 4.54 m/cumm (4.00-5.20); White Blood Cell Count 10.79 k/cumm (4.4-10.8)
[2018-07-06 07:55] LABS: Anion Gap 11.9 mmol/L (3-11); BUN 10 mg/dL (7-18); CO2 21.1 mmol/L (21.0-32.0); CREATININE 0.99 mg/dL (0.55-1.02); Calcium 8.7 mg/dL (8.5-10.1); Chloride 105 mmol/L (98-107); Estimated GFR 56.65 (mL/min/1.73m2); Glucose 126 mg/dL (70-100); Magnesium 1.3 mg/dL (1.8-2.4); Potassium 3.6 mmol/L (3.5-5.1); Sodium 138 mmol/L (136-145); TSH (W/Ref FT4) 1.09 uIU/mL (0.358-3.74)
[2018-07-06 07:58] LABS: Troponin I < 0.02 ng/mL (0.00-0.06)
[2018-07-06] MEDS: Enoxaparin 40 MG/0.4 ML SYR SC (08:09)
[2018-07-06] MEDS: Memantine 5 MG TAB 10 MG PO ×2 (08:10→20:52)
[2018-07-06 08:44] LABS: Diff Comment RBC Morph Reviewed
[2018-07-06 08:45] LABS: Hypochromasia 2+; Microcytosis 2+; Ovalocytes 2+
[2018-07-06] MEDS: Potassium Chloride 20 MEQ TABCR 40 MEQ PO (09:23)
[2018-07-06] MEDS: MAGNESIUM SULFATE 4 GM/100 ML BAG IVPB (09:32)
--- NOTE | 2018-07-06 10:25 | PDOC.CMPRO ---
Care Management Progress Note S/O: Christie was lying in bed-sitting up elevated when CM met with her, Netta-her sister was at her bedside. They reported no concerns at this time and Christie was pleasant in interaction. Netta reported Christie has fourteen steps into her home, as well as an elevator. CM will continue to follow. A: 63 year old female admitted to [facility] 07/04/18 for Hypotension P: Christie will return home with increased service supports; anticipate new orders for VNA supports as well as CCC attachment at [facility]. Christie has been managing with private supports at home but is agreeable to additional supports and reports having VNA in the past after surgical procedures. Christie will transport via private vehicle with one of her sisters.
--- NOTE | 2018-07-06 10:32 | CMPROGNOTE_ITS ---
Care Management Progress Note S/O: Christie was lying in bed-sitting up elevated when CM met with her, Netta-her sister was at her bedside. They reported no concerns at this time and Christie was pleasant in interaction. Netta reported Christie has fourteen steps into her home, as well as an elevator. CM will continue to follow. A: 63 year old female admitted to [facility] 07/04/18 for Hypotension P: Christie will return home with increased service supports; anticipate new orders for VNA supports as well as CCC attachment at [facility]. Christie has been managing with private supports at home but is agreeable to additional supports and reports having VNA in the past after surgical procedures. Christie will transport via private vehicle with one of her sisters.
--- NOTE | 2018-07-06 15:06 | PGE_ITS ---
Date of Service Date of service: 07/06/18 Time of Service: 15:01 Assessment and Plan (1) Altered mental status: Current visit: Yes Status: Acute As described by family and nursing staff, appears to involve episodes of confusion, 'staring', near unresponsive state while awake, and a potential post- ictal like state - cannot rule out seizure activity as potential reason. Check MRI to rule out acute intracranial pathology, include space occupying lesion or acute CVA, and check an EEG. Neurology consulted as well. Currently appears stable. (2) Hypotension: Current visit: Yes Status: Acute Unusual findings of hypotension with evidence of end-organ damage with KJ and elevation in Lactate - unknown etiology. Initial thought regarding Sepsis/SIRS type picture, but without clear source. Potential for UTI but very weakly positive urinalysis, and with Blood and Urine Cultures both thus far negative. However, did broaden antibiotic therapy to Vancomycin & Meropenem in case of Sepsis with Urinary Source while awaiting final Culture results. Also initiated on stress dosed steroids in case of adrenal insufficiency - begin to taper downtoday. Currently off pressor therapy but remains on IVFs. No signs of anaphylaxis. TSH normal and rules out Hypothyroidism. Again unsure of adrenal crisis as diagnosis - stress dose steroids as above. Check ECHO to rule out cardiogenic etiology. No persistent arrhythmias on monitoring manager. Of note, patient's sister reported that she was just started on thiazide therapy as an outpatient for uncontrolled HTN. Unsure if this is a contributing or sole factor here - both YAMEL-I and HCTZ continue to be on hold. (3) KJ (acute kidney injury): Current visit: Yes Status: Acute Likely in setting of hypotension, poor perfusion, with concurrent HCTZ and YAMEL-I use. Both meds continue to be on hold, with pressor support and IVFs as above. Creatinine improved again this morning and now normalized. Monitor. (4) Schizophrenia: Current visit: Yes Status: Chronic Noted. Continue home meds. (5) DVT prophylaxis: Current visit: Yes Status: Acute SC Lovenox. Subjective Interval history since last seen: 63-year-old woman with history of cognitive delay and Hypertension, admitted from [facility] Emergency Department with a diagnosis of Hypotension. Ms. Gardiner has a history of cognitive dysfunction, HTN, GERD, and Schizophrenia. She was initially sent to the emergency room because of several days of nonspecific weakness. In the ED she was noted to be significantly hypotensive with blood pressures in the 60s systolic, but interestingly without tachycardia. She was given fluid resuscitation and started on levophed. Initial laboratory evaluation of note for leukocytosis, low-grade pyuria (5-10 white cells), negative chest x-ray and CT of the abdomen that was unremarkable except for a known cyst in the right lower quadrant. She was then referred for admission for further evaluation and treatment. Today the patient's blood pressure appears improved and she remains off pressor support for the last few hours. She remains afebrile. Her Urine and Blood Cultures remain negative, and her C. Diff and Fecal Leukocytes were negative as well. However, family noted an episode of 'staring' where the patient appeared confused and was minimally responsive. Nursing confirms reports and tells account of Ms. Gardiner being unable to lift her spoon while eating and appearing confused as well. She regained back to her baseline mental status over some time, but was initially confused following the event. Exam Narrative Exam Narrative: General: Patient appears comfortable, Awake and Alert, enjoying dinner, NAD Neck: Supple CV: Regular, nontachycardic, S1S2, No rubs, murmurs, or gallops. Pulmonary: Clear to auscultation bilaterally, no crackles, wheezing, or rhonchi Abdomen: + Bowel Sounds, soft, nontender, nondistended Vascular: No lower extremity edema Psych: Normal mood and affect. Objective Objective Clinical Data: Abnormal lab results 07/06/18 07/06/18 Range/Units 07:20 07:20 Hgb 11.2 L (12.0-15.5) g/dL Hct 33.9 L (36.0-46.0) % MCV 74.7 L (80-95) fL MCH 24.7 L (27.0-33.0) pg RDW 16.0 H (11.7-14.6) % Absolute Neutrophils 8.81 H (1.2-6.7) k/cumm Absolute Lymphocytes 1.17 L (1.2-3.4) k/cumm Absolute Monocytes 0.76 H (0.11-0.7) k/cumm Anion Gap 11.9 H (3-11) mmol/L Glucose 126 H (70-100) mg/dL Magnesium 1.3 L (1.8-2.4) mg/dL Vital Signs Temperature 36.5 C 07/06/18 08:00 Temperature Source Temporal Artery Scan 07/06/18 08:00 Pulse 120 H 07/06/18 13:01 Pulse 125 H 07/06/18 13:10 Respiratory Rate 30 H 07/06/18 13:10 Respiratory Effort 07/06/18 08:00 Respiratory Depth Normal 07/06/18 08:00 Respiratory Pattern Normal 07/06/18 08:00 Blood Pressure 146/120 H 07/06/18 13:01 Blood Pressure Mean 124 07/06/18 13:01 Blood Pressure Position Left Lateral 07/06/18 08:00 Pulse Oximetry 98 07/06/18 13:10 Oxygen Delivery Method Nasal Cannula 07/06/18 08:00 Oxygen Flow Rate 1 07/06/18 08:00 Pain Level 0 07/06/18 08:00 Intake & Output 07/05/18 07/06/18 07/06/18 23:59 11:59 23:59 Intake Total 2952.994 / 5122.631 2821.354 / 3021.354 200 / 3021.354 Output Total 1650 / 2300 650 / 650 Balance 1302.994 / 2822.631 2171.354 / 2371.354 200 / 2371.354 Weight 92 kg 94.5 kg Intake: IV 2752.994 / 4442.631 2581.354 / 2781.354 200 / 2781.354 Oral 200 / 680 240 / 240 Output: Urine 1650 / 2300 650 / 650 Other: Urine Color Pale Pale Yellow Yellow Urine Appearance Clear Clear Comment campbell Campbell catheter in place and draining clear yellow urine. Trace protein, pH of 5, large amt of blood, SG of 1.030, trace ketones and Glucose 1999 Stool Occult Blood Negative Negative Stool Size Moderate Small Stool Characteristics Liquid Liquid Laboratory Results WBC 10.79 k/cumm (4.4-10.8) 07/06/18 07:20 RBC 4.54 m/cumm (4.00-5.20) 07/06/18 07:20 Hgb 11.2 g/dL (12.0-15.5) L 07/06/18 07:20 Hct 33.9 % (36.0-46.0) L 07/06/18 07:20 MCV 74.7 fL (80-95) L 07/06/18 07:20 MCH 24.7 pg (27.0-33.0) L 07/06/18 07:20 MCHC 33.0 g/dL (32.0-36.0) 07/06/18 07:20 RDW 16.0 % (11.7-14.6) H 07/06/18 07:20 Plt Count 343 x1000/uL (130-400) 07/06/18 07:20 MPV 10.3 fL (8.0-11.0) 07/06/18 07:20 Immature Gran % 0.3 07/06/18 07:20 Neutrophils % 81.7 07/06/18 07:20 Lymphocytes % 10.8 07/06/18 07:20 Monocytes % 7.0 07/06/18 07:20 Eosinophils % 0.1 07/06/18 07:20 Basophils % 0.1 07/06/18 07:20 Absolute Neutrophils 8.81 k/cumm (1.2-6.7) H 07/06/18 07:20 Absolute Lymphocytes 1.17 k/cumm (1.2-3.4) L 07/06/18 07:20 Absolute Monocytes 0.76 k/cumm (0.11-0.7) H 07/06/18 07:20 Absolute Eosinophils 0.01 k/cumm (0.0-0.7) 07/06/18 07:20 Absolute Basophils 0.01 k/cumm (0.0-0.2) 07/06/18 07:20 Differential Comment Rbc morph reviewed 07/06/18 07:20 RBC Morphology See below 07/06/18 07:20 Hypochromasia 2+ 07/06/18 07:20 Microcytosis 2+ 07/06/18 07:20 Ovalocytes 2+ 07/06/18 07:20 Sodium 138 mmol/L (136-145) 07/06/18 07:20 Potassium 3.6 mmol/L (3.5-5.1) D 07/06/18 07:20 Chloride 105 mmol/L (98-107) 07/06/18 07:20 Carbon Dioxide 21.1 mmol/L (21.0-32.0) 07/06/18 07:20 Anion Gap 11.9 mmol/L (3-11) H 07/06/18 07:20 BUN 10 mg/dL (7-18) 07/06/18 07:20 Creatinine 0.99 mg/dL (0.55-1.02) 07/06/18 07:20 Estimated GFR/1.73 m2 56.65 (mL/min/1.73m2) 07/06/18 07:20 Glucose 126 mg/dL (70-100) H 07/06/18 07:20 Lactate 1.0 mmol/L (0.6-1.4) 07/06/18 07:20 Calcium 8.7 mg/dL (8.5-10.1) 07/06/18 07:20 Magnesium 1.3 mg/dL (1.8-2.4) L 07/06/18 07:20 Total Bilirubin 0.5 mg/dL (0.2-1.0) 07/04/18 13:15 AST 28 U/L (15-37) 07/04/18 13:15 ALT 29 U/L (12-78) 07/04/18 13:15 Alkaline Phosphatase 143 U/L (46-116) H 07/04/18 13:15 Troponin I < 0.02 ng/mL (0.00-0.06) 07/06/18 07:20 Total Protein 8.2 g/dL (6.4-8.2) 07/04/18 13:15 Albumin 4.3 g/dL (3.4-5.0) 07/04/18 13:15 Lipase 252 U/L (73-393) 07/04/18 13:15 TSH 1.09 uIU/mL (0.358-3.74) 07/06/18 07:20 Urine Color Yellow (Yellow) 07/04/18 13:15 Urine Clarity Clear 07/04/18 13:15 Urine pH 7.0 (5-8) 07/04/18 13:15 Ur Specific [place] 1.020 (1.005-1.025) 07/04/18 13:15 Urine Protein 100 mg/dL (Negative) H 07/04/18 13:15 Urine Ketones Negative mg/dL (Negative) 07/04/18 13:15 Urine Blood Trace-intact (Negative) H 07/04/18 13:15 Urine Nitrite Negative (Negative) 07/04/18 13:15 Urine Bilirubin Negative (Negative) 07/04/18 13:15 Urine Urobilinogen 0.2 EU/dL (Up TO 0.2) 07/04/18 13:15 Ur Leukocyte Esterase Negative (Negative) 07/04/18 13:15 Urine RBC 3-5 (0-2) H 07/04/18 13:15 Urine WBC 5-10 HPF (0-5) 07/04/18 13:15 Ur Epithelial Cells Rare HPF (Negative) 07/04/18 13:15 Urine Crystals Negative HPF (Negative) 07/04/18 13:15 Urine Bacteria Few HPF (Negative) 07/04/18 13:15 Urine Casts 3-5 hyaline LPF (Negative) 07/04/18 13:15 Urine Mucus Trace (Negative) 07/04/18 13:15 Ur Culture Indicated? Yes 07/04/18 13:15 Urine Glucose Negative mg/dL (Negative) 07/04/18 13:15 Stool Campylobacter PCR Cancelled 07/05/18 17:07 Stool Salmonella PCR Cancelled 07/05/18 17:07 Stool Shigella PCR Cancelled 07/05/18 17:07 Shiga Toxin (PCR) Cancelled 07/05/18 17:07 Objective Narrative Objective Narrative: Urine Culture Final 07/06/18-1335 Day 1 Result NO GROWTH 24 HOURS Day 2 Result NO GROWTH 48 HOURS
[2018-07-06] MEDS: Methimazole 5 MG TAB PO (20:52)
[2018-07-06] MEDS: Donepezil 5 MG TAB 10 MG PO (20:53)
[2018-07-06] MEDS: Pantoprazole 40 MG TABCR PO (20:53)
[2018-07-06] MEDS: OLANZapine 5 MG TAB 10 MG PO (20:55)
[2018-07-07] VITALS (36 sets, daily range): BP systolic 80–155; BP diastolic 57–114; PULSE 62–111; RESP 16–28; TEMP 36.2–37.1; O2SAT 93–100
[2018-07-07] MEDS: Normal Saline 500 ML 30 ML IV (02:38)
[2018-07-07] MEDS: Hydrocortisone SOD SUC. 100 MG VIAL 50 MG IVP ×2 (02:39→14:37)
[2018-07-07] MEDS: VANCOMYCIN 750 MG in Normal Saline 250 ML 250 MG IV ×2 (03:50→14:39)
[2018-07-07] MEDS: Loperamide 2 MG CAP PO (05:43)
[2018-07-07] MEDS: Normal Saline Flush 10 ML SYR IVP ×6 (07:01→23:46)
[2018-07-07 07:40] LABS: Abs Immature Grans 0.05 k/cumm (0.0-0.09); Absolute Eosinophil Count 0.03 k/cumm (0.0-0.7); Absolute Lymphocyte Count 1.11 k/cumm (1.2-3.4); Absolute Monocyte Count 0.69 k/cumm (0.11-0.7); Basophils % 0.2; Eosinophils % 0.2; HGB 10.7 g/dL (12.0-15.5); Immature Grans % 0.4; Lymphocytes % 8.8; Mean Corp. HGB Concentration 32.4 g/dL (32.0-36.0); Mean Corpuscular Hemoglobin 24.8 pg (27.0-33.0); Mean Corpuscular Volume 76.4 fL (80-95); Mean Platelet Volume 10.5 fL (8.0-11.0); Monocytes % 5.5; Neutrophils % 84.9; Platelet Count 327 x1000/uL (130-400); RBC 4.32 m/cumm (4.00-5.20); RBC Distribution Width 16.5 % (11.7-14.6)
[2018-07-07 07:43] LABS: Absolute Basophil Count 0.03 k/cumm (0.0-0.2)
[2018-07-07 07:55] LABS: Anion Gap 6.5 mmol/L (3-11); BUN 15 mg/dL (7-18); CO2 24.5 mmol/L (21.0-32.0); CREATININE 1.06 mg/dL (0.55-1.02); Calcium 8.7 mg/dL (8.5-10.1); Chloride 109 mmol/L (98-107); Estimated GFR 52.36 (mL/min/1.73m2); Glucose 103 mg/dL (70-100); Potassium 4.5 mmol/L (3.5-5.1); Sodium 140 mmol/L (136-145)
[2018-07-07] MEDS: Memantine 5 MG TAB 10 MG PO ×2 (09:02→20:08)
[2018-07-07] MEDS: Enoxaparin 40 MG/0.4 ML SYR SC (09:02)
--- NOTE | 2018-07-07 09:23 | W.SPEECHEVAL ---
Date of service: 07/07/18 Time of Service: 07:45 Speech Therapy Evaluation Note: REFERRING PROVIDER: Dr. Sigala BACKGROUND This is a 63 year old left-handed female who was admitted on 07/04/18 with a recent h/o nonspecific weakness and a dx of hypotension and KJ. Family reported that she has her pills crushed in puree and, consequently, a swallow eval was requested. PMH is positive for developmental delay, schizophrenia, HTN and GERD. The patient is able to provide additional background information with regard to p. o. consistencies taken at her residence in the weeks prior to this admission. She states she is able to take what, by description, are Thin liquids, a Dysphagia Advanced diet with chopped meats and crushed pills in puree. OBJECTIVE Nursing reports: - T: 36.6 - O2 sat: 95% on RA - LS: CTA-B in the presence of multiple ABX - Good abilty to self-feed with slow feeding rate. - Occasional episodes of staring off into space with either minimal or no responses. The patient greets me with good direct eye contact and an intelligible verbal greeting. She is able to converse, answering questions to the best of her ability, but rarely asks questions. She is easily distracted but able to attend adequately in the absence of distractions. She is A & O x 4 and able to follow 2-step directions. Oral Sensorimotor Exam The patient has her own dentition but has only 3 remaining teeth on the bottom ridge (anterior teeth). She denies having any partial dentures and any dental discomfort,even when chewing. Oral sensation for buccal, labial and lingual areas is WNL bilaterally. Motorically, the smile is symmetrical. The pt shows no lingual deviation in a setting of moderately decreased excursion. Lingual lateralization is WNL bilaterally. Labial and buccal strength and coordination are WNL. Lingual strength is mildly-moderately decreased bilaterally. Velopharyngeal elevation is strong and symmetrical. Pt's volitional cough is produced as more of a hard-onset throat-clear. Volitional throat-clear is WNL. Speech intelligibility to this unfamiliar listener in the presence of mild-moderate background noise is 100%.Vocal quality is mildly hyponasal and mildly strained. Vocal intensity is mildly increased. Swallowing - [place]-thick liquid: Good bolus control & posterior oral transit (POT). No suraj s/s aspiration/penetration (A/P). Oral clearance 100%.These results are true for both single and consecutive swallows by cup. - [place]-thick liquid: Good bolus control & POT; no suraj s/s A/P; oral clearance 100%. These results are true for both single and consecutive swallows by both cup and straw. - Thin liquids: Good bolus control and POT; no suraj s/s A/P; oral clearance 100%. These results are true for both single and consecutive swallows by both cup and straw. - Puree food: Good bolus control and linguopalatal bolus compression. POT is WNL. No suraj s/s A/P. Oral clearance 100%. - Mechanically Altered food: Good mastication quality, bolus control & POT. No suraj s/s A/P. Oral clearance 100%. - Dysphagia Advanced food: Use of mildly-moderately increased mastication time but this does result in good mastication quality. Bolus control and POT are both WNL. No suraj s/s A/P. Oral clearance 100%. - Small-sized whole pills taken one at a time with a Thin liquid wash: Good bolus control & POT. No suraj s/s A/P. Oral clearance 100%. Pt is observed to self-feed both liquids and finger foods with use of her dominant LUE with good effect. She denies any globus sensation at either the pharyngeal or proximal esophageal levels at the conclusion of the visit. She shows no evidence of staring off into space with decreased responses during today's visit. INTERPRETATION The patient shows no evidence of a pharyngoesphageal dysphagia but does have a mild-moderate oral-prep dysphagia secondary to significant partial edentulousness. RECOMMENDATIONS 1. Continue Thin liquids 2. Change from a Regular consistency diet to a Dysphagial Advanced diet with moistened fine-chopped meats. 3. Whole pills with a liquid wash as tolerated. 4. Independant self-feeding. 5. Allow p. o. intake ONLY with sufficient alertness/participation. 6. No ST indicated at this time. Thank you for referring this patient.
--- NOTE | 2018-07-07 11:33 | PDOC.CMPRO ---
- If Service Date Differs Date of service: 07/07/18 Time of Service: 11:33 Care Management Progress Note S/O: Christie is lying in bed when this script writer visits this morning. She states that her night was good, and that she is doing good. Discussed DC plans with Christie, she has had home health services in the past and is receptive to home health if the physician feels as though it is warranted. A: 63 year old female admitted to [facility] 07/04/18 for Hypotension P: Christie will return home with increased service supports; anticipate new orders for VNA supports as well as CCC attachment at [facility]. Christie has been managing with private supports at home but is agreeable to additional supports and reports having VNA in the past after surgical procedures. Christie will transport via private vehicle with one of her sisters.
[2018-07-07] MEDS: Normal Saline 1,000 ML 75 ML IV (11:51)
--- NOTE | 2018-07-07 11:55 | CMPROGNOTE_ITS ---
- If Service Date Differs Date of service: 07/07/18 Time of Service: 11:33 Care Management Progress Note S/O: Christie is lying in bed when this keno writer visits this morning. She states that her night was good, and that she is doing good. Discussed DC plans with Christie, she has had home health services in the past and is receptive to home health if the physician feels as though it is warranted. A: 63 year old female admitted to [facility] 07/04/18 for Hypotension P: Christie will return home with increased service supports; anticipate new orders for VNA supports as well as CCC attachment at [facility]. Christie has been managing with private supports at home but is agreeable to additional supports and reports having VNA in the past after surgical procedures. Christie will transport via private vehicle with one of her sisters.
--- NOTE | 2018-07-07 12:36 | PHARADMIT ---
Addendum entered by Delfino Aleman III 08/19/18 11:41: Pharmacy Note Subjective Main issue is now urinary retention, needs straight cath Objective VS-OK K+3.5 Mag-2.0 Wgt-90.5 kg Assessment Lasix 40mg po daily. Plan Plan is for discharge to [facility] (accepted) if she is ready. Original Note: Addendum entered by Sabiha Irwin 08/14/18 15:12: Pharmacy Note Subjective Continues to be treated for CHF, tube feeds, meds via PEG tube, frequent bouts of aspiration Objective VS-ok, weight steady 97.2kg, K+ 3.2, Mag 1.8 Assessment Lasix increased to 40mg IV BID Potassium 40meq via PEG tube daily added and 20meq IV x 2 today Zosyn continues day# ? (long time, many orders) for UTI and aspiration coverage Last urine micro resulted 08/13/18 >100K Pseudomonas Micro blood drawn 08/11/18: no growth x48h Plan Referrals made for placement but having PEG tube does restrict acceptance Original Note: Addendum entered by Delfino Aleman III 08/13/18 11:08: Pharmacy Note Subjective Immodium order q4h prn. Objective VS-OK Afebrile, WBC- 8..98 K+3.1 H&H-8.6/29.2 Large BM Assessment Vancomycin dc'd, Zosyn continues for UTI Plan Placement still remains an issue. Original Note: Addendum entered by Delfino Aleman III 08/12/18 09:17: Pharmacy Note Subjective Also diagnosis of UTI, along with pneumonia Continues strict NPO due to aspiration issues, wheezy. Complaint of tooth pain. Loose stooling , Immodium BID to be ordered Objective VS-OK afebrile, K+3.3 WBC-10.93 H&H-8.7/29.2 SCr-0.59 Wgt-97.6 kg Large liquid BM today Assessment Vancomycin, Zosyn continue... Plan Watch for Immodium order, follow Vancomycin. Original Note: Addendum entered by Alejandra Mann 08/11/18 15:42: Pharmacy Note Subjective question of possible aspiration again per morning report Objective HR-101 other VS okay K+3.1 Assessment vanco started 1250 mg Q12H to target a trough of 15.9 Plan order vanco trough when needed Original Note: Addendum entered by Delfino Aleman III 08/08/18 14:16: Swing Bed: Stooling has decreased. VS-OK BP-115/84 HR-94 H&H-up8.7/29.8 Other Labs-OK Still awaiting placement Original Note: Addendum entered by Delfino Aleman III 08/07/18 15:47: Nutrition consult to help with continual stooling after PEG tube feeds. Recommended Immodium 30 minutes prior to tube feeds. VS-OK BP-148/104 HR-91 Lytes,SCr, Plts, WBC-OK H&H-8.1/27.4 Wgt-91.6 kg Family would like patient in a SNF in the [place], [place] area. Original Note: Addendum entered by Delfino Aleman III 08/06/18 10:45: Pharmacy Note Subjective Patient much improved, ambulated some in halll, approaching baseline. Objective VS_OK K+3.6 mAG-1.9 H&H, WBC,SCr-OK Wgt- 93.8 kg Assessment No changes Plan Placement is an issue at this time. No bed available at [facility] Original Note: Addendum entered by Delfino Aleman III 07/31/18 14:54: Pharmacy Note Subjective Speech attempted swallow eval. today but patient was uncooperative. Speech concluded that patient is a poor candidate for a change in PO intake at this time. Continue PEG tibe for nutrition,hydratio n and meds. Objective BP-152/108 HR-107 Lytes,SCr,Plts,WBC-OK, H&H-7.8/26.4 Wgt-100 kg Liquid BMs Assessment Asked MD about Zosyn, she will think it over, continues for now. Plan Be sure all meds via PEG tube, Watch for Zosyn dc. Original Note: Addendum entered by Delfino Aleman III 07/30/18 12:10: Pharmacy Note Subjective MD noted that patient is swallowing better and is more awake. Objective BP-101/69 VS-OK K+3.8 H&H-7.6/25.5 Grkv-[id number]-NGU-OK Wgt-102 kg Assessment Zosyn continues. Plan [facility], Keep npo Original Note: Addendum entered by Alejandra Mann 07/28/18 16:17: Pharmacy Note Subjective All PO meds to be given via PEG tube Objective BP-150/106 other VS okay Assessment zosyn started yesterday due to aspiration pneumonia clotrimazole/zinc oxide/A+D ointment ordered norepinephrine drip discontinued as pt has been on lorazepam without issues for a few days Plan continue to watch VS, labs and for med changes Original Note: Addendum entered by Sabiha Irwin 07/24/18 10:47: Pharmacy Note Subjective Somnolent overnight per RN, All meds to be given via PEG tube Objective VS ok, weight is down 6.7kg, H/H 8.3/27.3, lytes ok Assessment Lorazepam 1mg IV Q3h (scheduled), even if asleep but easily arousable, but hold for sedation (rec'd total of 11mg in last 24 hrs) to see if mental status improves, then plan to taper Norepinephrine is not running, but active if needed Xopenex updrafts are scheduled and prn Psychiatry following, pt remains mostly non-verbal, many med changes Plan Will take time for Catatonia to subside and continue on Benzo therapy Original Note: Addendum entered by Delfino Aleman III 07/23/18 14:35: Pharmacy Note Subjective believes patients current catatonia & low BP is from being NPO and not receiving her psych meds (notably Olanzapine). She has required pressors (Levophed & Lorazepam) to combat these symptoms. Had palliative care consult. Her current swallowing issues (esophageal dysmotility) continue, and she is receiving tube feeds. Objective VS-OK BP-100/64 K+3.6 Mag-1.8 SCr-1.08 H&H-9.1/29.5 WBC-11.13 Assessment Lorazepam 1mg NG q8H, Ordered but not using Levophed Drip. Plan Awaiting catatonia to resolve now that she is back on psych meds Original Note: Addendum entered by Alejandra Mann 07/21/18 17:02: Pharmacy Note Subjective All meds to be given via PEG tube; moved from MS to ICU for IV lorazepam Objective Tmax-31.8 BP-90/57 RR-93 SCr-1.11(up) WBC-11.70(up very slightly) Assessment lorazepam 0.5 mg ordered TID PO mag and K+ replacement given IV fluids stopped Plan continue to watch VS, labs and for med changes Original Note: Addendum entered by Sabiha Irwin 07/20/18 14:33: Pharmacy Note Subjective All meds to be given via PEG tube Objective BP 160/100, lytes good, WBC 11.37 Assessment MD mentions possible Justin/Tachy syndrome Lovenox restarted today Triple Anbx discontinued was on for risk of aspiration and failed swallow tests) Home meds restarted, Methimazole is alternating 2 tablets w/1 tablet daily Lasix 40mg IV QD Plan Tube feeds per nutrition, working w/PT but non-verbal and resistant today Original Note: Addendum entered by Sabiha Irwin 07/19/18 15:14: went for PEG placement today, likely remains high risk of aspiration Vanco trough 7am 07/20/18 ordered (day#14), Zosyn continues (day#11), Levaquin (day#6) plus other Anbx prior repeat chest xray this morning shows no findings Big jump in K+ level (4.0)..still has KCl in IVF's Mag down 1.6...rec'd 2gram IV x1 Watch for restart of Lovenox ? Narrow Anbx coverage, Afebrile, WBC down 10.78, negative chest xray Original Note: Addendum entered by Delfino Aleman III 07/18/18 16:57: Pharmacy Note Subjective Patient in cognitively impaired at baseline and he mentation waxes & wanes heree. Objective BP- 179/104 K+2.8 SCr-0.89 WBC-11.02 H&H,Plts steady Wgt-101.2 kg Stooling liquid Assessment Continues to require IV K+ boluses, Na-145 No Vancomycin trough needed today, Zosyn continues. Plan PEG tube placement held up by low K+, Surgeon wants level > 3.5 before going to OR Original Note: Addendum entered by Delfino Aleman III 07/17/18 13:58: Pharmacy Note Subjective Speech eval-for swallowing & Nutrition consult ( wants PEG Tube for feeds). Remains NPO. Objective BP-151/107 K+2.9 Na-150 Assessment MD ordered KCl 20mEq IV X 4 Bags. On Bumex IV Vanco trough OK 19.1), Zosyn,Levaquin continue Mónica garay'katy MORRIS thinks it is increasing her confusion Plan Surgical consult ordered for PEG tube placement Original Note: Addendum entered by Alana Herrera 07/16/18 09:19: Pharmacy Note Subjective brain MRI showed no acute infract, mass or enhancing lesion Objective so far UC and BC negative, Bp 134/85 hr 103(usually 80's) Assessment vancomycin, pip/tazo and levofloxacin continue, Repeat chest xray, keppra IV continues, Plan methimazole is ordered 5 mg HS, in the dosing comments it says 2 tabs alternate with 1 tab once daily (was copied from home med list). was made aware of this and this med is currently on hold due to NPO, follow up on this when med restarted Original Note: Addendum entered by Alejandra Mann 07/15/18 17:02: Pharmacy Note Subjective repeat brain MRI today Objective VS-okay K+3.1(down) h/h-improved Assessment -vanco trough came back high at 22.6 so held dose for 4 hours and restarted at 1000 mg Q18H to target a trough of 14.2 (actual trough has been much higher than predicted so far) -vanco, zosyn and levfloxacin continue -NPO- due to dysphagia -methimazole is ordered 5 mg HS, in the dosing comments it says 2 tabs alternate with 1 tab once daily (was copied from home med list). was made aware of this and this med is currently on hold due to NPO, follow up on this when med restarted -bumetanide dose increased, hydrocortisone dose decreased, K+ replacement given -repeat blood and urine cultures from yesterday no growth @24 hours Plan continue to watch VS, labs and for med changes (possible change or d/c of abx) order vanco trough when necessary Original Note: Addendum entered by Delfino Aleman III 07/11/18 14:39: Pharmacy Note Subjective Hospitalist notes that dysphagia raises concerns of aspiration pneumonia. On Day #4 of Zosyn & Vancomycin. has called for surgical consult for possible EGD. Endoscopy scheduled for AM. Nursing described episodes of confusion, near unresponsive state and post-ictal like state. (Seizure ?) Objective BP- 145/116 K+3.7 WBC-11.43, Assessment Vancomycin trough came back high (21.2) dose frequency changed to q14 hours and re-timed. Flu-negative Tamiflu dc'd. Plan Awaiting results of endoscopy. Original Note: Addendum entered by Alana Herrera 07/09/18 15:01: Pharmacy Note Subjective UNSURE OF SOURCE OF HYPOTENSION Objective BP NOW 152/91, HR 99 Assessment NO GROWTH FROM UC, BC. NEW BC ORDERED ON 07/08 PENDING FLU NEGATIVE, CDIFF NEGATIVE, PIP/TAZO AND VANCOMYCIN CONTINUE, NEW VANCO DOSE STARTED DUE TO INCREASED RENAL FUNCTION. SOLU CORTEF IV, PT HAS DIFFICULTY SWALLOWING SO MEDS CHANGED TO LIQUID OR NURSE CRUSHING Plan EXPECT HOME BP MEDS OR NEW ONES TO BE ADDED, ORDER VANCO TROUGH IF CONTINUED WHEN APPROPRIATE Original Note: Addendum entered by Alejandra Mann 07/08/18 17:52: Pharmacy Note Subjective Objective VS-okay mag-1.6 WBC-14.02(up) Assessment abx were discontinued yesterday evening, then restarted last night, and changed some today. Pt now on vanco and zosyn IV mag replacement given neuro consult today, suggested keppra 500 mg BID (was ordered) Plan order vanco trough when needed Original Note: Admission Pharmacy Clinical Review hypotension Code Status Full Code Current Weight 95.3 kg Renally Cleared and Narrow Therapeutic Index Meds Crcl ~66.4 mL/min using adjusted body weight meropenem could be changed from Q12H to Q8H due to improved renal function, MD aware QTc Value / Action Taken QTc 465 BP Control, Fever BP 126 afebrile Electrolytes reviewed Cl 109 DVT Prophylaxis enoxaparin Opiate Usage / Scheduled Bowel Regimen Ordered no/no Plt/SCr for Heparin / Enoxaparin plt 327 SCr 1.06 INR for Warfarin n/a H/H stable, WBC/Bands h/h 10.7/33.0 wbc 12.60 Antibiotic appropriateness meropenem and vanco Cultures and Sensitivities blood and urine cultures-no growth @48 hours rapid influenza, lactoferrin and C.diff negative Surgical ABX d/c within 24 hr n/a DM control / Insulin Dosing BG 103 none Heart Failure (Check EF%) (YAMEL's, B-Block, Diuretics) hydrochlorothiazide and lisinopril (home meds) IV to PO Switch n/a Home Meds Reviewed yes Home Meds Not Ordered cholecalciferol, fluconazole(x1 dose), HCTZ, lisinopril, nystatin, omeprazole (has pantoprazole ordered), sumatriptan Comments vanco trough came back 18.6 (was drawn a little early and previous dose was given late), continue same dose to target a trough of 15.1 speech and neuro consults
--- NOTE | 2018-07-07 12:45 | DI.MRI_ITS ---
SYMPTOM/DIAGNOSIS: ALTERED MENTAL STATUS MRI BRAIN: Comparison is made with head CT dated 04 July 2018. T2 sagittal, T1, T2, Flair, Diffusion and gradient echo axial sequences were performed. No intracranial hemorrhage, mass or infarct is seen. There is mild atrophy. No significant white matter changes. The vascular flow voids appear intact. The orbits, sinuses and pituitary are unremarkable. IMPRESSION: Mild atrophy. No acute abnormality
[2018-07-07 13:09] LABS: Vancomycin, Trough 18.6 ug/mL (10.0-20.0)
--- NOTE | 2018-07-07 14:47 | PT.INIE ---
Date of service: 07/07/18 Time of Service: 02:00 PT Notes Inpatient Physical Therapy Evaluation Date: Saturday July 07, 2018 Referring Doctor: Fernandez Sigala MD PT Orders: PT CONSULT: Follow-up needed Manage/follow per spec. Precautions: fall risk Patient Profile/Admitting Diagnosis: Patient admited to [facility] diagnosis of acute on chronic exacerbation of CHF, hypomagnesium, hypotension PMHX: Developmental delay, complicating schizpphrenia, PD, graves disease, HTN, multipe foot surgeries right. Social History/Home Situation: Lives alone in [facility]. Lives on second floor with elevator but does have 14 steps if not using elevator. Has family support and care also provided by computer engineering technician. Current Functional Limitations: ambulation, stair negotiation Equipment Owned/DME: 4 wheeled walker, cane, grab bars in shower and toilet Subjective: I'm feeling pretty good right now. I think I'm going into a different room. Objective: Seen today for PT evaluation. General Observation: Obese female. IV ports in right carotid, dorsum of right hand and antecubital fossa of left arm. Was on telemetry while in ICU but was disconnected for purposes of changing rooms. She was moved from ICU to [facility] surge floor. Mental Status: Alert to person and place but not time. Very pleasant and communicative. Pain: Mild discomfort in right MTP with ambulation. She likes to walk with her sneakers on but they would not fit (fluid retention) ROM: Right Upper Extremity: WFL and painfree. Left Upper Extremity: WFL and painfree. Right Lower Extremity: WFL and painfree Left Lower Extremity: WFL and painfree Strength: Right Upper Extremity: GH flexion and abduction 4/5, bicep 4+/5, tricep 4/5. Coater Smoking Pipe 5/5. Left Upper Extremity: GH flexion and abduction 4-/5, bicep and tricep 4/5. Coater Smoking Pipe 5/5. Right Lower Extremity: Hip flexion and abduction 4-/5, quad 4/5, hamstring 4/5, ankle PF and DF 4/5. Left Lower Extremity: Hip flexion and abduction 4-/5, quad 4/5, hamstring 4-/5, ankle PF and DF 4/5. Bed Mobility/Transfers: Supine to sit: Min assist x1 with HOB 30 degrees Sit to Stand: CG x1 to FWW Stand to sit: CGx1 from FWW Sit to supine: CG x1 with HOB 45 degrees Gait: Patient ambulated 75 feet with CG assist x1 with FWW with verbal cues for turning slowly and controlled with FWW. Patient was being moved from ICU to Med Surg. After 75 feet, she reported that her legs felt tired and that she needed to sit. She ambulated with a wheel chair following. Ended up in hospital bed with HOB 45 degrees and bed alarm activated. Balance: Static Sitting: Good Dynamic Sitting: Fair Static Standing: Fair Dynamic Standing: Fair Special Tests: Mobility Limitations Standardized Measure [facility] AM-PAC 6 clicks Basic Mobility Inpatient Short Form: Raw Score: 17 Standardized Score: 42.13 CMS Score: 50.57 CMS Modifier: CK Informed Consent/Education: Patient instructed in purpose of PT consult and plan of care. Assessment: Patient is a 63 year old female with developmental delay referred to physical therapy services with the diagnosis of weakness and hypotension, and graves disease Patient presents with clinical signs and symptoms consistent with this diagnosis, as demonstrated by the following impairment level findings: impaired motor function, muscle performance, gait, balance and functional mobility. Impairments are contributing to the functional limitations listed above. AMPA score. 50.57% Patient is assessed as a [] Low 87493 Moderate 71664 [] High 12401 complexity based on the following: History: as per PMH Examination: as per functional limitations Presentation: evolving Decision Making: moderate AMPAC 50.57% Goals: Goals X1 week 1. Supine-Sit: SBA 2. Sit-Supine: SBA 3. Sit-Stand: SBA to FWW 4. Stand-Sit SBA from FWW 5. Bed-Chair: SBA with FWW 6. Chair-Bed: SBA with FWW 7. Gait 150' SBA with FWW 8. Stairs: full flight with use of railing. Plan of Care/Treatment Plan: 1-2x/day, 7 days/week x 1 week. Plan of care has been reviewed with the BUILDING ENERGY RETROFIT TECHNICIAN providing the service under Physical Therapy direction. Initiate Physical Therapy intervention for strengthening, bed mobility, transfers, gait, stairs, balance training, use of assistive device. DISCHARGE RECOMMENDATIONS: Discharge to home with HHPT. TREATMENT CODE/TIME: 30 minutes IE 2:00 G Codes in the area mobility of walking and moving around: current status [id number] CK; projected status GP [id number]. Discharge status (if discharging) GP [id number] CK. Valentín Fofana PT, DPT
--- NOTE | 2018-07-07 14:52 | NUR.NOTE ---
Nursing Note: Pt transferred out of ICU room 222 to MS room 208.
--- NOTE | 2018-07-07 15:06 | IN_ITS ---
Date of service: 07/07/18 Time of Service: 02:00 PT Notes Inpatient Physical Therapy Evaluation Date: Saturday July 07, 2018 Referring Doctor: Fernandez Sigala MD PT Orders: PT CONSULT: Follow-up needed Manage/follow per spec. Precautions: fall risk Patient Profile/Admitting Diagnosis: Patient admited to [facility] diagnosis of acute on chronic exacerbation of CHF, hypomagnesium, hypotension PMHX: Developmental delay, complicating schizpphrenia, PD, graves disease, HTN, multipe foot surgeries right. Social History/Home Situation: Lives alone in [facility] assisted living facility. Lives on second floor with elevator but does have 14 steps if not using elevator. Has family support and care also provided by medical insurance claims processor. Current Functional Limitations: ambulation, stair negotiation Equipment Owned/DME: 4 wheeled walker, cane, grab bars in shower and toilet Subjective: I'm feeling pretty good right now. I think I'm going into a different room. Objective: Seen today for PT evaluation. General Observation: Obese female. IV ports in right carotid, dorsum of right hand and antecubital fossa of left arm. Was on telemetry while in ICU but was d isconnected for purposes of changing rooms. She was moved from ICU to [facility] surge floor. Mental Status: Alert to person and place but not time. Very pleasant and communicative. Pain: Mild discomfort in right MTP with ambulation. She likes to walk with her sneakers on but they would not fit (fluid retention) ROM: Right Upper Extremity: WFL and painfree. Left Upper Extremity: WFL and painfree. Right Lower Extremity: WFL and painfree Left Lower Extremity: WFL and painfree Strength: Right Upper Extremity: GH flexion and abduction 4/5, bicep 4+/5, tricep 4/5. Bean Picker Machine Operator 5/5. Left Upper Extremity: GH flexion and abduction 4-/5, bicep and tricep 4/5. Bean Picker Machine Operator 5/5. Right Lower Extremity: Hip flexion and abduction 4-/5, quad 4/5, hamstring 4/5, ankle PF and DF 4/5. Left Lower Extremity: Hip flexion and abduction 4-/5, quad 4/5, hamstring 4-/5, ankle PF and DF 4/5. Bed Mobility/Transfers: Supine to sit: Min assist x1 with HOB 30 degrees Sit to Stand: CG x1 to FWW Stand to sit: CGx1 from FWW Sit to supine: CG x1 with HOB 45 degrees Gait: Patient ambulated 75 feet with CG assist x1 with FWW with verbal cues for turning slowly and controlled with FWW. Patient was being moved from ICU to Med Surg. After 75 feet, she reported that her legs felt tired and that she needed to sit. She ambulated with a wheel chair following. Ended up in hospital bed with HOB 45 degrees and bed alarm activated. Balance: Static Sitting: Good Dynamic Sitting: Fair Static Standing: Fair Dynamic Standing: Fair Special Tests: Mobility Limitations Standardized Measure [facility] AM-PAC 6 clicks Basic Mobility Inpatient Short Form: Raw Score: 17 Standardized Score: 42.13 CMS Score: 50.57 CMS Modifier: CK Informed Consent/Education: Patient instructed in purpose of PT consult and plan of care. Assessment: Patient is a 63 year old female with developmental delay referred to physical therapy services with the diagnosis of weakness and hypotension, and graves disease Patient presents with clinical signs and symptoms consistent with this diagnosis, as demonstrated by the following impairment level findings: impaired motor function, muscle performance, gait, balance and functional mobility. Impairments are contributing to the functional limitations listed above. AMPA score. 50.57% Patient is assessed as a [] Low 25654 Moderate 15216 [] High 11147 complexity based on the following: History: as per PMH Examination: as per functional limitations Presentation: evolving Decision Making: moderate AMPAC 50.57% Goals: Goals X1 week 1. Supine-Sit: SBA 2. Sit-Supine: SBA 3. Sit-Stand: SBA to FWW 4. Stand-Sit SBA from FWW 5. Bed-Chair: SBA with FWW 6. Chair-Bed: SBA with FWW 7. Gait 150' SBA with FWW 8. Stairs: full flight with use of railing. Plan of Care/Treatment Plan: 1-2x/day, 7 days/week x 1 week. Plan of care has been reviewed with the OILSEED MEAT PRESSER providing the service under Physical Therapy direction. Initiate Physical Therapy intervention for strengthening, bed mobility, transfers, gait, stairs, balance training, use of assistive device. DISCHARGE RECOMMENDATIONS: Discharge to home with HHPT. TREATMENT CODE/TIME: 30 minutes IE 2:00 G Codes in the area mobility of walking and moving around: current status [id number] CK; projected status GP [id number]. Discharge status (if discharging) GP G8980 CK. Valentín Fofana PT, DPT
--- NOTE | 2018-07-07 15:32 | CHAPLAIN ---
I met Christie when she was in the ICU earlier today having lunch. I introduced myself, explained my role and offered support.
--- NOTE | 2018-07-07 16:00 | OT.INIE ---
Occupational Therapy Notes Inpatient Occupational Therapy Evaluation Date: 07/07/18 Referring Doctor:Fernandez Sigala MD Precautions: Standard, Fall risk PATIENT PROFILE/ADMITTING DIAGNOSIS: Pt is 63 year old female who was admitted through the ER for hypotensive. Past Medical History: Developmental delay, complicating schizpphrenia, PD, graves disease, HTN, multipe foot surgeries.. Social History/Home Situation: : Pt reports that she lives alone in [place] at an assisted living facility. Lives on second floor with elevator or 14 steps. Has family support by her sisters and care also provided by housekeeper child care. Her baseline level of function for ADLs was (I). Equipment owned/DME: 4WW, grab bars SUBJECTIVE: Pt was sitting in bed with her sister in the room. She was agreeable to OT session. OBJECTIVE: General Observation: IV ports in right carotid, dorsum of right hand and antecubital fossa of left arm, telemetry, BP cuff (L) UE Mental Status: Alert to person, place and year Pain: no c/o pain ROM: RUE WNL L UE WNL STRENGTH: RUE 4/5 throughout globally LUE 4/5 throughout globally FUNCTIONAL MOBILITY/ADLS: BATHING Sitting on side of bed with max (A) for set up Bathing UE (I) (B) UE, face and abdomen Bathing LE (I) DRESSING Dressing UE In sitting position min (A) with doning and doffing [facility] gown. BALANCE: Static sitting Normal Dynamic Sitting Normal SPECIAL TESTS: Daily Activity Limitations Standardized Measure [facility] AM -PAC ?6 clicks? Daily Activity Inpatient Short Form: Raw score: 19 Standardized score: 40.22 CMS score: 42.80% [facility] modifier: CK INFORMED CONSENT/EDUCATION: Pt instructed in purpose of OT Consult and plan of care. ASSESSMENT: Patient is a 63-year-old female referred to occupational therapy services with developmental delay referred to OT services with the diagnosis of weakness and hypotension, and graves disease in setting of Developmental delay, complicating schizophrenia, PD, graves disease, HTN, multiple foot surgeries right. Patient presents with clinical signs and symptoms consistent with dx, as demonstrated by the following impairment level findings and functional limitations of decreased (I) in ADLs/IADLs compared to pts baseline level of function. OT recommends that pt return home when medically cleared per MD with home health OT. AMPAC score 19, CMS 42.80% Patient is assessed as a high [id number] complexity based on the following: History: See Above Examination: See Above Presentation: See Above Decision Making: AMPAC score 19, CMS 42.80% GOALS Goals x1 week in hospital setting. 1. Dressing pt will be (I) with dressing routine including UE/LE 2. Bathing pt will be (I) with bathing routine in the shower. 3. Toileting pt will be (I) With toileting routine on toilet. PLAN OF CARE/TREATMENT PLAN: 1x/day, 5 days/ week x 1week Initiate Occupational Therapy Services for bathing, dressing, grooming, toileting, eating, transfer training. DISCHARGE RECOMMENDATIONS Home when medically cleared per MD with home OT. TREATMENT TIME/MINUTES/[place]ODES [place] [id number], 33 minutes G Codes in the area of self- : washing oneself, toileting, dressing, eating and drinking, current status GO [id number] CK projected status GO [id number]. Discharge status (if discharging) GO [id number]. Thank you for this referral. Ashtyn Alvarez, OTR/L [facility]
--- NOTE | 2018-07-07 16:15 | OTIE_ITS ---
Occupational Therapy Notes Inpatient Occupational Therapy Evaluation Date: 07/07/18 Referring Doctor:Fernandez Sigala MD Precautions: Standard, Fall risk PATIENT PROFILE/ADMITTING DIAGNOSIS: Pt is 63 year old female who was admitted through the ER for hypotensive. Past Medical History: Developmental delay, complicating schizpphrenia, PD, graves disease, HTN, multipe foot surgeries.. Social History/Home Situation: : Pt reports that she lives alone in [place] at an assisted living facility. Lives on second floor with elevator or 14 steps . Has family support by her sisters and care also provided by director hris. Her baseline level of function for ADLs was (I). Equipment owned/DME: 4WW, grab bars SUBJECTIVE: Pt was sitting in bed with her sister in the room. She was agreeable to OT session. OBJECTIVE: General Observation: IV ports in right carotid, dorsum of right hand and an tecubital fossa of left arm, telemetry, BP cuff (L) UE Mental Status: Alert to person, place and year Pain: no c/o pain ROM: RUE WNL L UE WNL STRENGTH: RUE 4/5 throughout globally LUE 4/5 throughout globally FUNCTIONAL MOBILITY/ADLS: BATHING Sitting on side of bed with max (A) for set up Bathing UE (I) (B) UE, face and abdomen Bathing LE (I) DRESSING Dressing UE In sitting position min (A) with doning and doffing [facility] gown. BALANCE: Static sitting Normal Dynamic Sitting Normal SPECIAL TESTS: Daily Activity Limitations Standardized Measure [facility] AM -PAC ?6 clicks? Daily Activity Inpatient Short Form: Raw score: 19 Standardized score: 40.22 CMS score: 42.80% [facility] modifier: CK INFORMED CONSENT/EDUCATION: Pt instructed in purpose of OT Consult and plan of care. ASSESSMENT: Patient is a 63-year-old female referred to occupational therapy services with developmental delay referred to OT services with the diagnosis of weakness and hypotension, and graves disease in setting of Developmental delay, complicating schizophrenia, PD, graves disease, HTN, multiple foot surgeries right. Patient presents with clinical signs and symptoms consistent with dx, as demonstrated by the following impairment level findings and functional limitatio ns of decreased (I) in ADLs/IADLs compared to pts baseline level of function. OT recommends that pt return home when medically cleared per MD with home health OT. AMPAC score 19, CMS 42.80% Patient is assessed as a high [id number] complexity based on the following: History: See Above Examination: See Above Presentation: See Above Decision Making: AMPAC score 19, CMS 42.80% GOALS Goals x1 week in hospital setting. 1. Dressing pt will be (I) with dressing routine including UE/LE 2. Bathing pt will be (I) with bathing routine in the shower. 3. Toileting pt will be (I) With toileting routine on toilet. PLAN OF CARE/TREATMENT PLAN: 1x/day, 5 days/ week x 1week Initiate Occupational Therapy Services for bathing, dressing, grooming, toileti ng, eating, transfer training. DISCHARGE RECOMMENDATIONS Home when medically cleared per MD with home OT. TREATMENT TIME/MINUTES/CODES IE [id number], 33 minutes G Codes in the area of self- : washing oneself, toileting, dressing, eating and drinking, current status GO [id number] CK projected status GO [id number]. Discharge status (if discharging) GO [id number]. Thank you for this referral. Ashtyn Alvarez, OTR/L [facility]
[2018-07-07] MEDS: OLANZapine 5 MG TAB 10 MG PO (20:08)
[2018-07-07] MEDS: Methimazole 5 MG TAB PO (20:08)
[2018-07-07] MEDS: Donepezil 5 MG TAB 10 MG PO (20:09)
[2018-07-07] MEDS: Pantoprazole 40 MG TABCR PO (20:09)
[2018-07-07] MEDS: Albuterol HFA 8 GM 60 PUFF INH IH (20:26)
--- NOTE | 2018-07-07 20:29 | PGE_ITS ---
Date of Service Date of service: 07/07/18 Time of Service: 20:26 Assessment and Plan (1) Altered mental status: Current visit: Yes Status: Acute As described by family and nursing staff, appears to involve episodes of confusion, 'staring', near unresponsive state while awake, and a potential post- ictal like state - cannot rule out seizure activity as potential reason. MRI without acute intracranial pathology, including space occupying lesion or acute CVA. EEG pending. Neurology consulted as well - Currently appears stable. (2) Hypotension: Current visit: Yes Status: Acute Unusual findings of hypotension with evidence of end-organ damage with KJ and elevation in Lactate - unknown etiology. Initial thought regarding Sepsis/SIRS type picture, but without clear source. Potential for UTI but very weakly positive urinalysis with negative Blood and Urine Cultures. Will discontinue Vancomycin & Meropenem. Also initiated on stress dosed steroids in case of adrenal insufficiency - continue taper today. Currently off pressor therapy and becoming hypertensive. No signs of anaphylaxis. TSH normal and rules out Hypothyroidism. Again unsure of adrenal crisis as diagnosis - stress dose steroids as above. Check ECHO to rule out cardiogenic etiology - still pending. No persistent arrhythmias on monitoring and evaluation advisor. Of note, patient's sister reported that she was just started on thiazide therapy as an outpatient for uncontrolled HTN. Unsure if this was a contributing or sole factor here - both YAMEL-I and HCTZ continue to be on hold. (3) KJ (acute kidney injury): Current visit: Yes Status: Acute Likely in setting of hypotension, poor perfusion, with concurrent HCTZ and YAMEL-I use. Both meds continue to be on hold, with pressor support and IVFs as above. Creatinine improved again this morning and now normalized. Monitor. (4) Schizophrenia: Current visit: Yes Status: Chronic Noted. Continue home meds. (5) DVT prophylaxis: Current visit: Yes Status: Acute SC Lovenox. Subjective Interval history since last seen: 63-year-old woman with history of cognitive delay and Hypertension, admitted from [facility] Emergency Department with a diagnosis of Hypotension. Ms. Gardiner has a history of cognitive dysfunction, HTN, GERD, and Schizophrenia. She was initially sent to the emergency room because of several days of nonspecific weakness. In the ED she was noted to be significantly hypotensive w ith blood pressures in the 60s systolic, but interestingly without tachycardia. She was given fluid resuscitation and started on levophed. Initial laboratory evaluation of note for leukocytosis, low-grade pyuria (5-10 white cells), negative chest x-ray and CT of the abdomen that was unremarkable except for a known cyst in the right lower quadrant. She was then referred for admission for further evaluation and treatment. Today the patient's blood pressure appears improved and she remains off pressor support for the last few hours. She remains afebrile. Her Urine and Blood Cultures remain negative, and her C. Diff and Fecal Leukocytes were negative as well. However, family noted an episode of 'staring' where the patient appeared confused and was minimally responsive. Nursing confirms reports and tells account of Ms. Gardiner being unable to lift her spoon while eating and appearing confused as well. She regained back to her baseline mental status over some time, but was initially confused following the event. Exam Narrative Exam Narrative: General: Patient appears comfortable, Awake and Alert, enjoying dinner, NAD Neck: Supple CV: Regular, nontachycardic, S1S2, No rubs, murmurs, or gallops. Pulmonary: Clear to auscultation bilaterally, no crackles, wheezing, or rhonchi. Breath Sounds decreased overall. Abdomen: + Bowel Sounds, soft, nontender, nondistended Vascular: No lower extremity edema Psych: Normal mood and affect. Objective Objective Clinical Data: Abnormal lab results 07/07/18 07/07/18 Range/Units 07:03 07:03 WBC 12.60 H (4.4-10.8) k/cumm Hgb 10.7 L (12.0-15.5) g/dL Hct 33.0 L (36.0-46.0) % MCV 76.4 L (80-95) fL MCH 24.8 L (27.0-33.0) pg RDW 16.5 H (11.7-14.6) % Absolute Neutrophils 10.70 H (1.2-6.7) k/cumm Absolute Lymphocytes 1.11 L (1.2-3.4) k/cumm Chloride 109 H (98-107) mmol/L Creatinine 1.06 H (0.55-1.02) mg/dL Glucose 103 H (70-100) mg/dL Vital Signs Temperature 36.4 C L 07/07/18 16:29 Temperature Source Tympanic 07/07/18 16:29 Pulse 101 H 07/07/18 16:29 Pulse 102 H 07/07/18 11:01 Respiratory Rate 22 07/07/18 16:29 Respiratory Effort 07/07/18 09:00 Respiratory Depth Normal 07/07/18 09:00 Respiratory Pattern Normal 07/07/18 09:00 Blood Pressure 148/114 H 07/07/18 16:29 Blood Pressure Mean 102 07/07/18 11:01 Blood Pressure Position Supine 07/07/18 05:05 Pulse Oximetry 96 07/07/18 16:29 Oxygen Delivery Method Room Air 07/07/18 16:29 Oxygen Flow Rate 0 07/07/18 16:29 Pain Level 0 07/07/18 16:08 Comment 07/06/18 11:20 Intake & Output 07/06/18 07/07/18 07/07/18 23:59 11:59 23:59 Intake Total 1222.5 / 4433.854 491.5 / 1676.5 1185 / 1676.5 Output Total 580 / 1230 175 / 175 Balance 642.5 / 3203.854 316.5 / 1501.5 1185 / 1501.5 Weight 95.3 kg Intake: IV 582.5 / 3193.854 491.5 / 1336.5 845 / 1336.5 Oral 640 / 1240 340 / 340 Output: Urine 580 / 1230 175 / 175 Other: Urine Color Yellow Dark Kadie Urine Appearance Clear Cloudy Sediment Comment campbell Campbell in place and draining dark kadie urine. Stool Occult Blood Negative Negative Stool Size Small Small Stool Characteristics Liquid Soft Brown Brown Laboratory Results WBC 12.60 k/cumm (4.4-10.8) H 07/07/18 07:03 RBC 4.32 m/cumm (4.00-5.20) 07/07/18 07:03 Hgb 10.7 g/dL (12.0-15.5) L 07/07/18 07:03 Hct 33.0 % (36.0-46.0) L 07/07/18 07:03 MCV 76.4 fL (80-95) L 07/07/18 07:03 MCH 24.8 pg (27.0-33.0) L 07/07/18 07:03 MCHC 32.4 g/dL (32.0-36.0) 07/07/18 07:03 RDW 16.5 % (11.7-14.6) H 07/07/18 07:03 Plt Count 327 x1000/uL (130-400) 07/07/18 07:03 MPV 10.5 fL (8.0-11.0) 07/07/18 07:03 Immature Gran % 0.4 07/07/18 07:03 Neutrophils % 84.9 07/07/18 07:03 Lymphocytes % 8.8 07/07/18 07:03 Monocytes % 5.5 07/07/18 07:03 Eosinophils % 0.2 07/07/18 07:03 Basophils % 0.2 07/07/18 07:03 Absolute Neutrophils 10.70 k/cumm (1.2-6.7) H 07/07/18 07:03 Absolute Lymphocytes 1.11 k/cumm (1.2-3.4) L 07/07/18 07:03 Absolute Monocytes 0.69 k/cumm (0.11-0.7) 07/07/18 07:03 Absolute Eosinophils 0.03 k/cumm (0.0-0.7) 07/07/18 07:03 Absolute Basophils 0.03 k/cumm (0.0-0.2) 07/07/18 07:03 Differential Comment Rbc morph reviewed 07/06/18 07:20 RBC Morphology See below 07/06/18 07:20 Hypochromasia 2+ 07/06/18 07:20 Microcytosis 2+ 07/06/18 07:20 Ovalocytes 2+ 07/06/18 07:20 Sodium 140 mmol/L (136-145) 07/07/18 07:03 Potassium 4.5 mmol/L (3.5-5.1) D 07/07/18 07:03 Chloride 109 mmol/L (98-107) H 07/07/18 07:03 Carbon Dioxide 24.5 mmol/L (21.0-32.0) 07/07/18 07:03 Anion Gap 6.5 mmol/L (3-11) 07/07/18 07:03 BUN 15 mg/dL (7-18) 07/07/18 07:03 Creatinine 1.06 mg/dL (0.55-1.02) H 07/07/18 07:03 Estimated GFR/1.73 m2 52.36 (mL/min/1.73m2) 07/07/18 07:03 Glucose 103 mg/dL (70-100) H 07/07/18 07:03 Lactate 1.0 mmol/L (0.6-1.4) 07/06/18 07:20 Calcium 8.7 mg/dL (8.5-10.1) 07/07/18 07:03 Magnesium 2.0 mg/dL (1.8-2.4) 07/07/18 07:03 Total Bilirubin 0.5 mg/dL (0.2-1.0) 07/04/18 13:15 AST 28 U/L (15-37) 07/04/18 13:15 ALT 29 U/L (12-78) 07/04/18 13:15 Alkaline Phosphatase 143 U/L (46-116) H 07/04/18 13:15 Troponin I < 0.02 ng/mL (0.00-0.06) 07/06/18 07:20 Total Protein 8.2 g/dL (6.4-8.2) 07/04/18 13:15 Albumin 4.3 g/dL (3.4-5.0) 07/04/18 13:15 Lipase 252 U/L (73-393) 07/04/18 13:15 TSH 1.09 uIU/mL (0.358-3.74) 07/06/18 07:20 Urine Color Yellow (Yellow) 07/04/18 13:15 Urine Clarity Clear 07/04/18 13:15 Urine pH 7.0 (5-8) 07/04/18 13:15 Ur Specific [place] 1.020 (1.005-1.025) 07/04/18 13:15 Urine Protein 100 mg/dL (Negative) H 07/04/18 13:15 Urine Ketones Negative mg/dL (Negative) 07/04/18 13:15 Urine Blood Trace-intact (Negative) H 07/04/18 13:15 Urine Nitrite Negative (Negative) 07/04/18 13:15 Urine Bilirubin Negative (Negative) 07/04/18 13:15 Urine Urobilinogen 0.2 EU/dL (Up TO 0.2) 07/04/18 13:15 Ur Leukocyte Esterase Negative (Negative) 07/04/18 13:15 Urine RBC 3-5 (0-2) H 07/04/18 13:15 Urine WBC 5-10 HPF (0-5) 07/04/18 13:15 Ur Epithelial Cells Rare HPF (Negative) 07/04/18 13:15 Urine Crystals Negative HPF (Negative) 07/04/18 13:15 Urine Bacteria Few HPF (Negative) 07/04/18 13:15 Urine Casts 3-5 hyaline LPF (Negative) 07/04/18 13:15 Urine Mucus Trace (Negative) 07/04/18 13:15 Ur Culture Indicated? Yes 07/04/18 13:15 Urine Glucose Negative mg/dL (Negative) 07/04/18 13:15 Stool Campylobacter PCR Cancelled 07/05/18 17:07 Stool Salmonella PCR Cancelled 07/05/18 17:07 Stool Shigella PCR Cancelled 07/05/18 17:07 Vancomycin Trough 18.6 ug/mL (10.0-20.0) 07/07/18 12:46 Shiga Toxin (PCR) Cancelled 07/05/18 17:07 Path Cons Comment See comment 07/06/18 07:20
[2018-07-07 22:11] LABS: Troponin I 0.03 ng/mL (0.00-0.06)
--- NOTE | 2018-07-07 22:14 | PDOC.EEG_ITS ---
EEG: [facility] Department of Neurology INPATIENT EEG REPORT Date of Recordin07/07/18 Interpreting Physician: Dr. Tena Saba Reason for study: Ms. Gardiner is a 63 year-old woman with a history of cognitive impairment admitted with hypotension and questionable sepsis but with no known source, who was witnessed to have episodes of waxing and waning mental status with brief staring, concerning for seizure. Current Medications: Active Medications Generic Name Dose Route Start Last Admin Trade Name Freq PRN Reason Stop Dose Admin Albuterol Sulfate 2 puff 07/04/18 19:04 07/07/18 20:26 Ventolin Hfa IH 2 puffs Q4H PRN PRN Administration Dimethicone/Zinc Oxide 0 gm 07/04/18 18:59 07/05/18 14:49 Franky Protect Cream TP 1 applic PRN PRN Administration Donepezil HCl 10 mg 07/04/18 22:00 07/07/18 20:09 Aricept PO 10 mg HS KALIN Administration Enoxaparin Sodium 40 mg 07/06/18 08:30 07/07/18 09:02 Lovenox SC 40 mg DAILY KALIN Administration Hydrocortisone 50 mg 07/08/18 08:00 Solu-Cortef IVP DAILY@0800 KALIN Norepinephrine Bitartrate 4, 250 mls @ 0 mls/hr 07/04/18 17:15 07/06/18 22:12 000 mcg/ Dextrose/Water IV Infused INFUSION KALIN Titration Protocol Per Protocol Sodium Chloride 500 mls @ 30 mls/hr 07/07/18 02:33 07/07/18 05:41 Saline 500ml Bag IV 0 mls/hr PRN PRN Infusion Sodium Chloride 1,000 mls @ 75 mls/hr 07/07/18 11:45 07/07/18 18:19 Saline 1000ml Bag IV 75 mls/hr INFUSION KALIN Infusion Loperamide HCl 2 mg 07/05/18 05:35 07/07/18 05:43 Imodium PO 2 mg DAILY AM KALIN Administration Memantine 10 mg 07/04/18 20:00 07/07/18 20:08 Namenda PO 10 mg BID KALIN Administration Methimazole 5 mg 07/04/18 22:00 07/07/18 20:08 Tapazole PO 5 mg HS KALIN Administration Olanzapine 10 mg 07/04/18 22:00 07/07/18 20:08 Zyprexa PO 10 mg HS KALIN Administration Pantoprazole Sodium 40 mg 07/04/18 22:00 07/07/18 20:09 Protonix PO 40 mg HS KALIN Administration Sodium Chloride 10 ml 07/04/18 21:11 07/07/18 21:41 Saline Flush 10 Ml Syringe IVP 20 ml PRN PRN Administration Sodium Chloride 500 ml 07/07/18 02:51 Saline 500ml Bag IV DIRECTED PRN albuterol sulfate [ProAir HFA] 2 % INHALATION PRN PRN 07/04/18 cholecalciferol (vitamin D3) [Vitamin D3] 1 tab PO DAILY 07/04/18 donepezil [Aricept] 10 mg PO DAILY 07/04/18 fluconazole [Diflucan] 150 mg PO ONCE 07/04/18 hydrochlorothiazide 25 mg PO DAILY 07/04/18 lisinopril 40 mg PO DAILY 07/04/18 loperamide 2 mg PO DAILY AM 07/04/18 memantine 10 mg PO BID 07/04/18 methimazole 5 mg PO DAILY 07/04/18 nystatin 1 applic TOPICAL TID 07/04/18 olanzapine [Zyprexa] 10 mg PO DAILY 07/04/18 omeprazole 40 mg PO DAILY 07/04/18 sumatriptan succinate 50 mg PO PRN PRN 07/04/18 METHODS: A 21 channel digitized electroencephalogram was performed in the [facility] Med/Surg Floor or ICU. The 10/20 international system of electrode placement was used and bipolar and referential electrode montages were recorded. In addition to EEG the patient was monitored for EKG and lateral/vertical eye movements. Activation procedures of photic stimulation and hyperventilation were performed if applicable. Video was used during activation procedures and during events where applicable. The duration of the recording was 30 minutes. DESCRIPTION OF EEG: The patient was noted to be awake only during the recording. During maximal wakefulness an 8-Hz posterior background rhythm was present which was well- modulated, symmetrical, reactive to eye opening, and of moderate voltage. With eye opening the background activity changed to a low voltage mixture of alpha, beta, and occasional theta range frequencies. Faster frequencies were present in the bilateral anterior head regions. There was a normal anterior-posterior voltage gradient. No drowsiness or stage II sleep was recorded. Activating Procedures: Photic stimulation was performed which produced a symmetrical posterior driving response at various flash frequencies. Hyperventilation was not performed. EKG: EKG revealed normal sinus rhythm. INTERPRETATION: This EEG is abnormal due to a mildly slowed posterior background rhythm. PRIOR EEG: none CLINICAL CORRELATION: The finding above most likely reflects the patients known history of cognitive impairment. No focal regions of cerebral dysfunction or epileptiform activity was present. Epilepsy remains a clinical diagnosis and a normal EEG does not rule out epilepsy. No sleep was recorded during the study which reduces the sensitivity of the exam. Clinical correlation is advised. Tena Saba MD
--- NOTE | 2018-07-07 22:26 | DI.RAD_ITS ---
SYMPTOM/DIAGNOSIS: DYSPNEA PORTABLE AP CHEST: Comparison is made with 07/04/18. The exam is limited by respiratory motion and suboptimal pulmonary inflation. A right internal jugular catheter is again noted with the tip in the right atrium. There is a question of increased densities at the left lung base which could represent atelectasis versus pneumonia. No effusions are visible. IMPRESSION: Limited exam. Question of increased densities at the left lung base representing atelectasis or pneumonia.
[2018-07-07 22:31] LABS: D-Dimer 1329 ng/mlFEU (<500)
--- NOTE | 2018-07-07 22:52 | PGE_ITS ---
Date of Service Date of service: 07/07/18 Time of Service: 22:45 Assessment and Plan (1) Dyspnea: Current visit: Yes Status: Acute ddx includes ACS, CHF/volume overload, HCAP, PE. EKG did not show acute ischemia, first troponin was negative. D-dimer is high and therefore will check CTA chest to rule out P.E./pneumonia, CHF. (2) Atypical chest pain: Current visit: Yes Status: Acute as above. Subjective Patient reports: shortness of breath and other (chest pain) Interval history since last seen: Christie developed some transient chest discomfort and dyspnea tonight. She has been hypertensive and tachycardic. BP 150/110 and HR in low 100's sinus tachycardia. Repeat ECG did not show any ischemic changes. In fact her prior ECG from admission on 07/[address]-T changes which have since resolved. She was treated w/ single NTG and her CP is now gone. She remains hypertensive. Troponin I was normal at 0.03 but her d- dimer is elevated at 1329. I am checking a CTA of her chest to rule out PE. I do not feel that she has acute coronary ischemia. I am also checking pro-BNP to evaluate for CHF. Exam Const General: no acute distress Nutritional Appearance: overweight Orientation: alert and awake Limitations: behavioral limitations (patient is cognitively impaired. She is a poor historian and not attentive) Resp Effort & Inspection: normal respiratory effort Auscultation: diminished lung sounds bilaterally in the lower lung reynaga Percussion: dullness Lower: bilaterally Cardio Jugular venous pressure: no JVD Palpation: normal PMI Rate: tachycardic Rhythm: regular rhythm Heart Sounds: S1 normal, S2 normal, no gallops, no murmurs and no rubs Extrem Right lower extremity: edema Details: non-pitting and 1+ Left lower extremity: edema Details: non-pitting and 1+ Objective Objective Clinical Data: Abnormal lab results 07/07/18 07/07/18 07/07/18 Range/Units 07:03 07:03 21:15 WBC 12.60 H (4.4-10.8) k/cumm Hgb 10.7 L (12.0-15.5) g/dL Hct 33.0 L (36.0-46.0) % MCV 76.4 L (80-95) fL MCH 24.8 L (27.0-33.0) pg RDW 16.5 H (11.7-14.6) % Absolute Neutrophils 10.70 H (1.2-6.7) k/cumm Absolute Lymphocytes 1.11 L (1.2-3.4) k/cumm D-Dimer 1329 H (<500) ng/mlFEU Chloride 109 H (98-107) mmol/L Creatinine 1.06 H (0.55-1.02) mg/dL Glucose 103 H (70-100) mg/dL Vital Signs Temperature 36.2 C L 07/07/18 20:55 Temperature Source Tympanic 07/07/18 20:55 Pulse 104 H 07/07/18 20:55 Pulse Rhythm Regular 07/07/18 20:57 Pulse 102 H 07/07/18 11:01 Respiratory Rate 18 07/07/18 20:55 Respiratory Effort Non-Labored 07/07/18 20:57 Respiratory Depth Normal 07/07/18 20:57 Respiratory Pattern Normal 07/07/18 20:57 Blood Pressure 150/110 H 07/07/18 20:55 Blood Pressure Mean 102 07/07/18 11:01 Blood Pressure Position Supine 07/07/18 05:05 Pulse Oximetry 94 L 07/07/18 20:55 Oxygen Delivery Method Room Air 07/07/18 20:55 Oxygen Flow Rate 0 07/07/18 20:55 Pain Level 0 07/07/18 16:08 Comment 07/06/18 11:20 Intake & Output 07/06/18 07/07/18 07/07/18 23:59 11:59 23:59 Intake Total 1222.5 / 4433.854 491.5 / 1936.5 1445 / 1936.5 Output Total 580 / 1230 175 / 475 300 / 475 Balance 642.5 / 3203.854 316.5 / 1461.5 1145 / 1461.5 Weight 95.3 kg Intake: IV 582.5 / 3193.854 491.5 / 1356.5 865 / 1356.5 Oral 640 / 1240 580 / 580 Output: Urine 580 / 1230 175 / 475 300 / 475 Other: Urine Color Yellow Dark Kadie Dark Kadie Urine Appearance Clear Cloudy Clear Sediment Comment campbell Campbell in place and draining dark kadie urine. Stool Occult Blood Negative Negative Stool Size Small Small Stool Characteristics Liquid Soft Brown Brown Laboratory Results WBC 12.60 k/cumm (4.4-10.8) H 07/07/18 07:03 RBC 4.32 m/cumm (4.00-5.20) 07/07/18 07:03 Hgb 10.7 g/dL (12.0-15.5) L 07/07/18 07:03 Hct 33.0 % (36.0-46.0) L 07/07/18 07:03 MCV 76.4 fL (80-95) L 07/07/18 07:03 MCH 24.8 pg (27.0-33.0) L 07/07/18 07:03 MCHC 32.4 g/dL (32.0-36.0) 07/07/18 07:03 RDW 16.5 % (11.7-14.6) H 07/07/18 07:03 Plt Count 327 x1000/uL (130-400) 07/07/18 07:03 MPV 10.5 fL (8.0-11.0) 07/07/18 07:03 Immature Gran % 0.4 07/07/18 07:03 Neutrophils % 84.9 07/07/18 07:03 Lymphocytes % 8.8 07/07/18 07:03 Monocytes % 5.5 07/07/18 07:03 Eosinophils % 0.2 07/07/18 07:03 Basophils % 0.2 07/07/18 07:03 Absolute Neutrophils 10.70 k/cumm (1.2-6.7) H 07/07/18 07:03 Absolute Lymphocytes 1.11 k/cumm (1.2-3.4) L 07/07/18 07:03 Absolute Monocytes 0.69 k/cumm (0.11-0.7) 07/07/18 07:03 Absolute Eosinophils 0.03 k/cumm (0.0-0.7) 07/07/18 07:03 Absolute Basophils 0.03 k/cumm (0.0-0.2) 07/07/18 07:03 Differential Comment Rbc morph reviewed 07/06/18 07:20 RBC Morphology See below 07/06/18 07:20 Hypochromasia 2+ 07/06/18 07:20 Microcytosis 2+ 07/06/18 07:20 Ovalocytes 2+ 07/06/18 07:20 D-Dimer 1329 ng/mlFEU (<500) H 07/07/18 21:15 Sodium 140 mmol/L (136-145) 07/07/18 07:03 Potassium 4.5 mmol/L (3.5-5.1) D 07/07/18 07:03 Chloride 109 mmol/L (98-107) H 07/07/18 07:03 Carbon Dioxide 24.5 mmol/L (21.0-32.0) 07/07/18 07:03 Anion Gap 6.5 mmol/L (3-11) 07/07/18 07:03 BUN 15 mg/dL (7-18) 07/07/18 07:03 Creatinine 1.06 mg/dL (0.55-1.02) H 07/07/18 07:03 Estimated GFR/1.73 m2 52.36 (mL/min/1.73m2) 07/07/18 07:03 Glucose 103 mg/dL (70-100) H 07/07/18 07:03 Lactate 1.0 mmol/L (0.6-1.4) 07/06/18 07:20 Calcium 8.7 mg/dL (8.5-10.1) 07/07/18 07:03 Magnesium 2.0 mg/dL (1.8-2.4) 07/07/18 07:03 Total Bilirubin 0.5 mg/dL (0.2-1.0) 07/04/18 13:15 AST 28 U/L (15-37) 07/04/18 13:15 ALT 29 U/L (12-78) 07/04/18 13:15 Alkaline Phosphatase 143 U/L (46-116) H 07/04/18 13:15 Troponin I 0.03 ng/mL (0.00-0.06) 07/07/18 21:15 Total Protein 8.2 g/dL (6.4-8.2) 07/04/18 13:15 Albumin 4.3 g/dL (3.4-5.0) 07/04/18 13:15 Lipase 252 U/L (73-393) 07/04/18 13:15 TSH 1.09 uIU/mL (0.358-3.74) 07/06/18 07:20 Urine Color Yellow (Yellow) 07/04/18 13:15 Urine Clarity Clear 07/04/18 13:15 Urine pH 7.0 (5-8) 07/04/18 13:15 Ur Specific [place] 1.020 (1.005-1.025) 07/04/18 13:15 Urine Protein 100 mg/dL (Negative) H 07/04/18 13:15 Urine Ketones Negative mg/dL (Negative) 07/04/18 13:15 Urine Blood Trace-intact (Negative) H 07/04/18 13:15 Urine Nitrite Negative (Negative) 07/04/18 13:15 Urine Bilirubin Negative (Negative) 07/04/18 13:15 Urine Urobilinogen 0.2 EU/dL (Up TO 0.2) 07/04/18 13:15 Ur Leukocyte Esterase Negative (Negative) 07/04/18 13:15 Urine RBC 3-5 (0-2) H 07/04/18 13:15 Urine WBC 5-10 HPF (0-5) 07/04/18 13:15 Ur Epithelial Cells Rare HPF (Negative) 07/04/18 13:15 Urine Crystals Negative HPF (Negative) 07/04/18 13:15 Urine Bacteria Few HPF (Negative) 07/04/18 13:15 Urine Casts 3-5 hyaline LPF (Negative) 07/04/18 13:15 Urine Mucus Trace (Negative) 07/04/18 13:15 Ur Culture Indicated? Yes 07/04/18 13:15 Urine Glucose Negative mg/dL (Negative) 07/04/18 13:15 Stool Campylobacter PCR Cancelled 07/05/18 17:07 Stool Salmonella PCR Cancelled 07/05/18 17:07 Stool Shigella PCR Cancelled 07/05/18 17:07 Vancomycin Trough 18.6 ug/mL (10.0-20.0) 07/07/18 12:46 Shiga Toxin (PCR) Cancelled 07/05/18 17:07 Path Cons Comment See comment 07/06/18 07:20 EXAM: CT Angiography Chest With Contrast EXAM DATE/TIME: 07/07/2018 10:44 PM FINDINGS: Lungs: No consolidation. Pleural space: No pleural effusion. No pneumothorax. Heart/Mediastinum: No cardiomegaly. Bones/joints: Rotator cuff repair in the right shoulder. Right acromioclavicular degenerative changes with right a.c. joint widening, appears chronic. Degenerative changes in the spine. IMPRESSION: No acute cardiopulmonary pathology. Dictated and Authenticated by: Jie Causey MD. Reviewed Pertinent PMH: Yes
[2018-07-07 23:01] LABS: NT-proBNP 1154 pg/mL
--- NOTE | 2018-07-07 23:35 | DI.CT_ITS ---
SYMPTOM/DIAGNOSIS: DYSPNEA, CHEST PAIN PE CHEST CT: CT angiography was performed with multi slice acquisition and multi planar and 3D reconstruction. The aorta and pulmonary arteries are well opacified with IV contrast and no emboli or aortic dissection is seen. The heart size is normal. There are no pleural or pericardial effusions. Evaluation of the lungs is limited due to respiratory motion. There are no focal infiltrates. Significant motion is seen at the level of the liver. No gross abnormality is identified. IMPRESSION: No evidence of pulmonary emboli or other acute abnormality.
[2018-07-07] MEDS: Omnipaque 350 MG/ML 100 ML BTL IJ (23:43)
--- NOTE | 2018-07-07 23:46 | DI.VRAD_ITS ---
EXAM: XR Chest, 1 View EXAM DATE/TIME: 07/07/2018 10:27 PM CLINICAL HISTORY: 63 years old, female; Signs and symptoms; Dyspnea TECHNIQUE: XR of the chest, 1 view. COMPARISON: CR XR PORTABLE CHEST AP POST LINE 07/04/2018 4:42 PM FINDINGS: Tubes, catheters and devices: Shunt tubing overlies the right chest. Lungs: Increasing opacities in the left base may represent atelectasis or pneumonia. Pleural space: Possible small left pleural effusion No pneumothorax. Heart/Mediastinum: Unremarkable. No cardiomegaly. Bones/joints: Unremarkable. Other findings: Overlying EKG wires IMPRESSION: 1. Shunt tubing overlies the right chest. 2. Increasing opacities in the left base may represent atelectasis or pneumonia. Dictated and Authenticated by: Jerrell Whipple MD. Ordering:[facility] Trevor Sanz MD
--- NOTE | 2018-07-07 23:52 | DI.VRAD_ITS ---
EXAM: CT Angiography Chest With Contrast EXAM DATE/TIME: 07/07/2018 10:44 PM CLINICAL HISTORY: 63 years old, female; Pain and signs and symptoms; Dyspnea; Chest pain; Type not specified; Patient HX: PT unable to provide medical HX. Dyspnea, chest pain TECHNIQUE: Axial computed tomographic angiography images of the chest with intravenous contrast using CT angiography protocol. All CT scans at this facility use at least one of these dose optimization techniques: automated exposure control; mA and/or kV adjustment per patient size (includes targeted exams where dose is matched to clinical indication); or iterative reconstruction. Coronal and sagittal reformatted images were created and reviewed. MIP reconstructed images were created and reviewed. CONTRAST: 79 ml of Omnipaque 350 administered intravenously. COMPARISON: CR XR PORTABLE CHEST AP 07/07/2018 10:38 PM FINDINGS: Pulmonary arteries: No evidence of pulmonary embolus to the segmental level. Aorta: No aneurysm of the aorta. No dissection of the aorta. Lungs: Minimal subluxation in the left lower lobe may represent minimal atelectasis or pneumonia. Pleural space: Normal. No pneumothorax. No pleural effusion. Heart: Normal. No cardiomegaly. No pericardial effusion. Lymph nodes: Unremarkable. No enlarged lymph nodes. Bones/joints: Unremarkable. No acute fracture. Soft tissues: Unremarkable. IMPRESSION: 1. No evidence of pulmonary embolus to the segmental level. 2. No aneurysm of the aorta. 3. No dissection of the aorta. Dictated and Authenticated by: Jerrell Whipple MD. Ordering:[facility] Trevor Sanz MD
[2018-07-08] VITALS (55 sets, daily range): BP systolic 77–161; BP diastolic 45–111; PULSE 42–108; RESP 2–24; TEMP 36.1–37.6; O2SAT 90–99
[2018-07-08] MEDS: Albuterol HFA 8 GM 60 PUFF INH IH (00:28)
[2018-07-08] MEDS: Normal Saline Flush 10 ML SYR IVP ×5 (00:29→16:29)
[2018-07-08] MEDS: Furosemide 20 MG/2 ML VIAL IVP (01:31)
[2018-07-08 01:54] LABS: Troponin I 0.02 ng/mL (0.00-0.06)
[2018-07-08] MEDS: MEROPENEM 1 GM in Normal Saline 100 ML IVPB (02:13)
[2018-07-08] MEDS: Loperamide 2 MG CAP PO (05:19)
[2018-07-08 06:03] LABS: Abs Immature Grans 0.05 k/cumm (0.0-0.09); Absolute Eosinophil Count 0.39 k/cumm (0.0-0.7); Absolute Monocyte Count 1.12 k/cumm (0.11-0.7); Basophils % 0.4; Eosinophils % 2.8; HCT 32.8 % (36.0-46.0); HGB 10.7 g/dL (12.0-15.5); Immature Grans % 0.4; Lymphocytes % 26.2; Mean Corp. HGB Concentration 32.6 g/dL (32.0-36.0); Mean Corpuscular Hemoglobin 24.8 pg (27.0-33.0); Mean Corpuscular Volume 75.9 fL (80-95); Mean Platelet Volume 10.4 fL (8.0-11.0); Neutrophils % 62.2; Platelet Count 330 x1000/uL (130-400); RBC 4.32 m/cumm (4.00-5.20); RBC Distribution Width 16.8 % (11.7-14.6); White Blood Cell Count 14.02 k/cumm (4.4-10.8)
[2018-07-08 06:07] LABS: Absolute Basophil Count 0.06 k/cumm (0.0-0.2); Absolute Lymphocyte Count 3.67 k/cumm (1.2-3.4); Absolute Neutrophil Count 8.72 k/cumm (1.2-6.7)
[2018-07-08 06:10] LABS: Anion Gap 9.2 mmol/L (3-11); BUN 20 mg/dL (7-18); CO2 27.8 mmol/L (21.0-32.0); CREATININE 0.91 mg/dL (0.55-1.02); Calcium 8.7 mg/dL (8.5-10.1); Chloride 104 mmol/L (98-107); Glucose 85 mg/dL (70-100); Magnesium 1.6 mg/dL (1.8-2.4); Potassium 3.5 mmol/L (3.5-5.1); Sodium 141 mmol/L (136-145)
[2018-07-08 06:18] LABS: Troponin I 0.02 ng/mL (0.00-0.06)
--- NOTE | 2018-07-08 07:45 | MERGE_ITS ---
*[facility]* *[facility]* [address] [place] [address] Date of study: 07/08/2018 Transthoracic Echocardiography M-mode, complete 2D, complete spectral Doppler, and color Doppler *STUDY CONCLUSIONS* Summary: 1. Procedure narrative: Image quality was fair. 2. Left ventricle: The cavity size was normal. Wall thickness was normal. Systolic function was normal. The estimated ejection fraction was 60-65%. Although no diagnostic regional wall motion abnormality was identified, this possibility cannot be completely excluded on the basis of this study. 3. Right ventricle: The cavity size was normal. Wall thickness was normal. Systolic function was normal. *PATIENT PRESENTATION* Height: 170.2cm ((67in) ) S/D Pressure: 152 / 109 Weight: 95.3kg ((209.6lb) ) BSA: 2.16m^2 Test start time: 07:45 AM. Test stop time: 08:45 AM. CONSULTING Souleymane Muller MD ORDERING Fernandez Sigala REFERRING Fernandez Sigala PERFORMING [facility] [employer] RT Karl Orta)(MARELY), RDMIHIR PERFORMING [place] *PROCEDURE DATA* Procedure information: The patient was identified by two identifiers. This study was interpreted by [facility]. Pertinent images and digital data are archived for permanent storage and are available for subsequent review. No prior study was available for comparison. Study status: Routine. Transthoracic echocardiography. M-mode, complete 2D, complete spectral Doppler, and color Doppler. A Transthoracic Echocardiogram was performed. Scanning was performed from the parasternal, apical, subcostal, and suprasternal notch acoustic windows. Images were obtained using an [id number] cardiac ultrasound machine. Image quality was fair. Study completion: The patient tolerated the procedure well. There were no complications. *CARDIAC ANATOMY* Left ventricle: The cavity size was normal. Wall thickness was normal. Systolic function was normal. The estimated ejection fraction was 60-65%. Although no diagnostic regional wall motion abnormality was identified, this possibility cannot be completely excluded on the basis of this study. The study is not technically sufficient to allow evaluation of LV diastolic function. Aortic valve: Poorly visualized. Mobility was not restricted. Doppler: Transvalvular velocity was within the normal range. There was no stenosis. There was no significant regurgitation. VTI ratio of LVOT to aortic valve: 1.15. Valve area (VTI): 3.9cm^2. Indexed valve area (VTI): 1.8cm^2/m^2. Peak velocity ratio of LVOT to aortic valve: 1. Valve area (Vmax): 3.4cm^2. Indexed valve area (Vmax): 1.6cm^2/m^2. Mean velocity ratio of LVOT to aortic valve: 0.77. Valve area (Vmean): 2.6cm^2. Indexed valve area (Vmean): 1.2cm^2/m^2. Mean gradient (S): 3.1mm Hg. Peak gradient (S): 4.6mm Hg. Aorta: Aortic root: The aortic root was normal in size. Ascending aorta: The ascending aorta was normal in size. Mitral valve: Structurally normal valve. Mobility was not restricted. Doppler: Transvalvular velocity was within the normal range. There was no evidence for stenosis. There was no significant regurgitation. Valve area by pressure half-time: 3.5cm^2. Indexed valve area by pressure half-time: 1.6cm^2/m^2. Left atrium: The atrium was normal in size. Right ventricle: The cavity size was normal. Wall thickness was normal. Systolic function was normal. Pulmonic valve: Doppler: Transvalvular velocity was within the normal range. There was no evidence for stenosis. There was no significant regurgitation. Tricuspid valve: Structurally normal valve. Doppler: Transvalvular velocity was within the normal range. There was no evidence for stenosis. There was no significant regurgitation. Pulmonary artery: Systolic pressure could not be accurately estimated. Right atrium: The atrium was normal in size. Pericardium: There was no pericardial effusion. Systemic veins: Inferior vena cava: Well visualized. The vessel was patent and normal in size. The respirophasic diameter changes were in the normal range (greater than or equal to 50%). Baseline ECG: Normal sinus rhythm. Measurements Left ventricle Value Reference LV ID, ED, PLAX 5.0 cm 3.5 - 6.0 LV ID, ES, PLAX 2.9 cm 2.1 - 4.0 LV PW thickness, ED, PLAX 0.6 cm LV end-diastolic volume, 1-p A2C 51 ml LV ejection fraction, 1-p A2C 63 % LV end-diastolic volume, 1-p A4C 59 ml LV ejection fraction, 1-p A4C 65 % LV e', lateral 0.114 m/sec LV E/e', lateral 5 LV e', medial 0.07 m/sec LV E/e', medial 8 LV e', average 0.092 m/sec LV E/e', average 6 Ventricular septum Value Reference IVS thickness, ED, PLAX 1.1 cm LVOT Value Reference LVOT ID, A-P 2.1 cm LVOT area 3.4 cm^2 LVOT peak velocity, S 1.07 m/sec LVOT mean velocity, S 0.66 m/sec LVOT VTI, S 21.8 cm LVOT peak gradient, S 4.6 mm Hg LVOT mean gradient, S 2.1 mm Hg Stroke volume (SV), LVOT DP 73 ml Stroke index (SV/bsa), LVOT DP 34 ml/m^2 Aortic valve Value Reference Aortic valve peak velocity, S 1.1 m/sec Aortic valve mean velocity, S 0.86 m/sec Aortic valve VTI, S 19.0 cm Aortic mean gradient, S 3.1 mm Hg Aortic peak gradient, S 4.6 mm Hg VTI ratio, LVOT/AV 1.15 Aortic valve area, VTI 3.9 cm^2 Velocity ratio, peak, LVOT/AV 1 Aortic valve area, peak velocity 3.4 cm^2 Velocity ratio, mean, LVOT/AV 0.77 Aortic valve area, mean velocity 2.6 cm^2 Aortic valve area/bsa, mean velocity 1.2 cm^2/m^2 Aorta Value Reference Aortic root ID, ED 3.2 cm Ascending aorta ID, A-P, S 3.5 cm Left atrium Value Reference LA ID, A-P, ES 2.3 cm LA ID/bsa, A-P 1.1 cm/m^2 <=2.2 LA area, ES, A4C 14.3 cm^2 8.8 - 23.4 LA area, ES, A2C 10 cm^2 LA volume/bsa, ES, 1-p A4C 16 ml/m^2 LA volume, ES, 2-p 23 ml LA volume/bsa, ES, 2-p 11 ml/m^2 LA/aortic root ratio 0.71 Mitral valve Value Reference Mitral E-wave peak velocity 0.58 m/sec Mitral A-wave peak velocity 0.78 m/sec Mitral deceleration time 220 ms 150 - 230 Mitral pressure half-time 64 ms Mitral E/A ratio, peak 0.74 Mitral valve area, PHT, DP 3.5 cm^2 Tricuspid valve Value Reference Tricuspid regurg peak velocity 2.2 m/sec Tricuspid peak RV-RA gradient 19.6 mm Hg Right atrium Value Reference RA area, ES, A4C 12.9 cm^2 8.3 - 19.5 Legend: (L) and (H) rosemary values outside specified reference range. I have personally reviewed the images and have reviewed and edited the reported findings. Electronically signed by Mani Cordoba 07/08/2018 09:24
[2018-07-08] MEDS: Hydrocortisone SOD SUC. 100 MG VIAL 50 MG IVP ×2 (09:27→20:04)
[2018-07-08] MEDS: Potassium Chloride 20 MEQ TABCR 40 MEQ PO (09:28)
[2018-07-08] MEDS: Memantine 5 MG TAB 10 MG PO (09:28)
[2018-07-08] MEDS: Enoxaparin 40 MG/0.4 ML SYR SC (09:28)
[2018-07-08] MEDS: MAGNESIUM SULFATE 2 GM/50 ML BAG IVPB (09:30)
[2018-07-08] MEDS: VANCOMYCIN 750 MG in Normal Saline 250 ML 250 MG IV ×2 (10:30→21:27)
[2018-07-08] MEDS: Metoprolol 12.5 MG TAB PO (10:59)
[2018-07-08] MEDS: Lisinopril 20 MG TAB 40 MG PO (10:59)
--- NOTE | 2018-07-08 11:10 | OT.INNT ---
Date of service: 07/08/18 Time of Service: 09:40 Occupational Therapy Notes 07/08/18 OT went in to see pt, pt was sitting in bed and getting medication with nursing. Pt denied OT services today stating no and then provided no other verbal communication with OT. OT will check in with pt tomorrow. Ashtyn Alvarez OTR/[facility]
[2018-07-08 11:37] LABS: Campylobacter PCR SEE COMMENTS; Salmonella PCR SEE COMMENTS; Shiga Toxin PCR SEE COMMENTS; Shigella/Enteroinvasive Ecoli SEE COMMENTS
--- NOTE | 2018-07-08 11:52 | PT.INTREAT ---
Date of service: 07/08/18 Time of Service: 11:52 PT Notes Inpatient Physical Therapy Treatment Note [facility] Date: 07/08/18 PRECAUTIONS: Fall SUBJECTIVE: Christie is agreeable to participating in PT. OBJECTIVE: PAIN: No complaints of pain BED MOBILITY/TRANSFERS Supine-sit: Mod A with HOB at 50 degrees Sit-supine: Independent with HOB flat Sit-stand: Mod A x2 Stand-sit: Min A GAIT Assistive Device: FWW Weight bearing: Full Assist: Min A Distance: 4 sidesteps to left Deviation: Cueing for FWW mechanics ASSESSMENT: Patient tolerated session without complaints of pain. Patient appeared as though she was having difficulty following instructions, slow to respond. Patient did not want to complete any more gait training at this time. Patient would benefit from continued gait and transfer training as well as strengthening for improved mobility. PLAN: Continue with PTs POC TREATMENT CODE/TIME: 20 minutes; ([id number] x 1)
[2018-07-08] MEDS: CEFEPIME 2 GM in Normal Saline 100 ML IVPB (12:09)
--- NOTE | 2018-07-08 12:20 | W.NEUROCONSU ---
Date of service: 07/08/18 Time of Service: 12:20 Assessment and Plan (1) Altered mental status: Current visit: Yes Status: Acute (2) Spell of behavior change: Current visit: Yes Status: Acute (3) Babinski response: Current visit: Yes Status: Acute Ms. Gardiner is a 63-year-old, left-handed woman with a past medical history of cognitive impairment who was admitted with hypotension and acute kidney injury as well as pneumonia. During the hospitalization, she has been witnessed to have 2-3 episodes of behavioral arrest and staring, followed by several minutes of confusion and then return to baseline. The differential diagnosis includes encephalopathy/delirium in the setting of acute illness versus new onset seizures (she lives alone). Workup including a brain MRI and EEG were both unremarkable. It is not known if she has any other epilepsy risk factors other than her cognitive impairment at this time. Based on the limited information and despite the normal testing, I would recommend treatment for epilepsy, especially as she lives alone. I recommend starting Keppra 500 mg twice daily. ADRs include agitation and other behavioral disturbance. Otherwise, she was found to have bilateral Babinski reflexes on exam. It is unclear if this is part of her cognitive impairment or is a new finding. She reports using a walker at baseline and it is unclear if her balance and gait have changed over the years. If there is concern for progressive gait imbalance, I would recommend further workup including an MRI of her cervical spine without contrast plus or minus an MRI thoracic spine without contrast. She should follow-up in the neurology in the next 1-2 months. Please call with any questions or concerns. DISCLAIMER: This note was created using [employer] voice recognition software. History of Present Illness Chief Complaint: seizures Narrative: Handedness: LEFT (only?). HPI: Ms. Gardiner is a 63-year-old woman with a past medical history of cognitive impairment, schizophrenia, hypothyroidism, and hypertension. She was brought to the ER on 07/04/2018 with a 5-day history of increased weakness. She was found to be hypotensive with a blood pressure in the 70s-90s systolic without resultant tachycardia. Her white blood cells were elevated at 14.87, sodium was 127, potassium 2.6, creatinine 2.53, lactate 1.9, alk phos 143, and a normal TSH. She was initially thought to be septic and she does have pneumonia, however, ultimately it was thought that she became hypotensive due to new diuretics. On 07/06/2018, family noted a spell of behavioral arrest. Christie was eating with the spoon retirement to her mouth when she suddenly stopped eating. She was witnessed to stare off. She was not responsive to her family members who were trying to speak with her. After a very short duration, she began to respond but seemed unusually confused, more so than baseline. After another short period of time, she seemed to be back to normal. There were 1-2 more episodes also witnessed by family and nursing during this hospitalization. Unfortunately, no family was at the bedside and there was no answer to the contact numbers that I called. Thus, the history is limited to what is written in the chart and what Ms. Gardiner can provide. She reportedly has no prior history of seizures and no staring spells have ever been witnessed before, however, she does live on her own. It is unclear if she has any risk factors for seizures or family history of seizures. Parkinson's was written on her diagnosis list but I do not know the background of that. She is not on any Parkinson's medications and is in fact on Zyprexa, presumably for mood. She gave me conflicting information on whether she uses a walker for ambulation prior to the hospitalization or not. Workup has included both a CT head and MRI brain, both of which I was able to review. They were remarkable for only mild cerebral atrophy. 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 I am not sure what to make of this. She had an EEG on 07/07/2018 which did not show any epileptic activity in the awake state only. Consults Requesting physician: Fernandez Sigala Review of Systems Review of Systems All systems reviewed & are unremarkable except as noted in HPI and below PFSH Medical History Schizophrenia (Chronic) Cognitive developmental delay (Acute) Hypertension (Chronic) Hypothyroidism (Chronic) Social History household members: none marital status: SINGLE current occupational status: disabled Smoking/Tobacco Use Status: Never alcohol intake: never substance use type: does not use additional social history: Lives alone. Visit Medication and Allergies Active Medications Generic Name Dose Route Start Last Admin Trade Name Freq PRN Reason Stop Dose Admin Albuterol Sulfate 2 puff 07/04/18 19:04 07/08/18 00:28 Ventolin Hfa IH 2 puffs Q4H PRN PRN Administration Dimethicone/Zinc Oxide 0 gm 07/04/18 18:59 07/05/18 14:49 Franky Protect Cream TP 1 applic PRN PRN Administration Donepezil HCl 10 mg 07/04/18 22:00 07/07/18 20:09 Aricept PO 10 mg HS KALIN Administration Enoxaparin Sodium 40 mg 07/06/18 08:30 07/08/18 09:28 Lovenox SC 40 mg DAILY KALIN Administration Sodium Chloride 500 mls @ 30 mls/hr 07/07/18 02:33 07/07/18 05:41 Saline 500ml Bag IV 0 mls/hr PRN PRN Infusion Vancomycin HCl 750 mg/ Sodium 250 mls @ 250 mls/hr 07/08/18 10:00 07/08/18 10:30 Chloride IV 250 mls/hr Q12H KALIN Administration Protocol Cefepime HCl 2 gm/ Sodium 100 mls @ 200 mls/hr 07/08/18 12:00 07/08/18 12:09 Chloride IVPB 200 mls/hr Q8H KALIN Administration Lisinopril 40 mg 07/08/18 08:30 07/08/18 10:59 Prinivil PO 40 mg DAILY KALIN Administration Loperamide HCl 2 mg 07/05/18 05:35 07/08/18 05:19 Imodium PO 2 mg DAILY AM KALIN Administration Memantine 10 mg 07/04/18 20:00 07/08/18 09:28 Namenda PO 10 mg BID KALIN Administration Methimazole 5 mg 07/04/18 22:00 07/07/18 20:08 Tapazole PO 5 mg HS KALIN Administration Metoprolol Tartrate 12.5 mg 07/08/18 10:00 07/08/18 10:59 Lopressor PO 12.5 mg Q12H KALIN Administration Olanzapine 10 mg 07/04/18 22:00 07/07/18 20:08 Zyprexa PO 10 mg HS KALIN Administration Pantoprazole Sodium 40 mg 07/04/18 22:00 07/07/18 20:09 Protonix PO 40 mg HS KALIN Administration Sodium Chloride 10 ml 07/04/18 21:11 07/08/18 10:31 Saline Flush 10 Ml Syringe IVP 30 ml PRN PRN Administration Sodium Chloride 500 ml 07/07/18 02:51 Saline 500ml Bag IV DIRECTED PRN Allergies Sulfa (Sulfonamide Antibiotics) Allergy (Mild, Unverified 07/04/18 13:11) Skin Rash Exam Narrative Exam Narrative: Physical Exam: Gen: Patient of apparent stated age, NAD Head and face: no facial or cranial abnormalities Neck: Supple, no meningismus, no occipital tenderness CV: + S1, S2, RRR, no murmur Resp: borderline tachympnea with accessory breathing; clear breath sounds Abd: soft, nontender, nondistended Ext: No edema. No clubbing or cyanosis. No bony deformity. Neuro Exam: Language: fluency, naming, repetition, and comprehension intact; Mental Status: AAO to self, current events mostly intact; baseline cognitive impairment Speech: no dysarthria Cranial nerves: Funduscopy: not performed CN II: visual reynaga intact CN III, IV, : extraocular movements intact, no nystagmus, pupils symmetric and reactive to light CN V: face sensation intact to LT CN VII: no facial asymmetry noted CN VIII: hearing intact bilaterally CN IX, X: palate rises symmetrically CN XI: trapezius/SCM 5/5 bilaterally CN XII: protrudes tongue symmetrically Sensory: intact to LT in all extremities; extensive sensory testing not performed due to cognitive status Motor: bulk and tone intact. Fine motor movements intact bilaterally. No pronator drift. Strength 5/5 throughout including the deltoids, biceps, triceps, wrist extensors, hip flexors, knee flexors, knee extensors, ankle flexors, and ankle extensors. Reflexes: 2+ at the biceps, triceps, brachioradialis, patella, and achilles tendons bilaterally; toes upgoing bilaterally; neg Esquivel/Tromner; no clonus; Coordination: FTN and HTS intact bilaterally Gait: deferred Results Last Vital Signs Temp 36.6 C 07/08/18 11:56 Pulse 97 H 07/08/18 11:56 Resp 20 07/08/18 11:56 BP 151/105 H 07/08/18 11:56 Pulse Ox 99 07/08/18 11:56 Labs : 07/08/18 05:00 07/08/18 05:00 Laboratory Results - last 24 hr 07/07/18 07/07/18 07/07/18 12:46 21:15 21:15 WBC RBC Hgb Hct MCV MCH MCHC RDW Plt Count MPV Immature Gran % Neutrophils % Lymphocytes % Monocytes % Eosinophils % Basophils % Absolute Neutrophils Absolute Lymphocytes Absolute Monocytes Absolute Eosinophils Absolute Basophils D-Dimer 1329 H Sodium Potassium Chloride Carbon Dioxide Anion Gap BUN Creatinine Estimated GFR/1.73 m2 Glucose Calcium Magnesium Troponin I 0.03 NT-Pro-B Natriuret Pep 1154 H Calcitonin Vancomycin Trough 18.6 07/08/18 07/08/18 07/08/18 00:55 05:00 05:00 WBC 14.02 H RBC 4.32 Hgb 10.7 L Hct 32.8 L MCV 75.9 L MCH 24.8 L MCHC 32.6 RDW 16.8 H Plt Count 330 MPV 10.4 Immature Gran % 0.4 Neutrophils % 62.2 Lymphocytes % 26.2 Monocytes % 8.0 Eosinophils % 2.8 Basophils % 0.4 Absolute Neutrophils 8.72 H Absolute Lymphocytes 3.67 H Absolute Monocytes 1.12 H Absolute Eosinophils 0.39 Absolute Basophils 0.06 D-Dimer Sodium 141 Potassium 3.5 D Chloride 104 Carbon Dioxide 27.8 Anion Gap 9.2 BUN 20 H Creatinine 0.91 Estimated GFR/1.73 m2 >= 60.00 Glucose 85 Calcium 8.7 Magnesium 1.6 L Troponin I 0.02 NT-Pro-B Natriuret Pep Calcitonin Vancomycin Trough 07/08/18 07/08/18 05:00 06:24 WBC RBC Hgb Hct MCV MCH MCHC RDW Plt Count MPV Immature Gran % Neutrophils % Lymphocytes % Monocytes % Eosinophils % Basophils % Absolute Neutrophils Absolute Lymphocytes Absolute Monocytes Absolute Eosinophils Absolute Basophils D-Dimer Sodium Potassium Chloride Carbon Dioxide Anion Gap BUN Creatinine Estimated GFR/1.73 m2 Glucose Calcium Magnesium Troponin I 0.02 NT-Pro-B Natriuret Pep Calcitonin Cancelled Vancomycin Trough
--- NOTE | 2018-07-08 12:43 | PDOC.CMPRO ---
- If Service Date Differs Date of service: 07/08/18 Time of Service: 12:43 Care Management Progress Note S/O: Christie is sitting up in bed eating pancakes when this internal communications writer visits this morning. Christie states that she is doing good when this internal communications writer talks with her this morning. At times throughout conversation Christie does not answer this internal communications writer, however if CM repeats question Christie will answer. A: 63 year old female admitted to [facility] 07/04/18 for Hypotension P: Christie will return home with increased service supports; anticipate new orders for VNA supports as well as CCC attachment at [facility]. Christie has been managing with private supports at home but is agreeable to additional supports and reports having VNA in the past after surgical procedures. Christie will transport via private vehicle with one of her sisters.
--- NOTE | 2018-07-08 16:20 | PT.INNT ---
Date of service: 07/08/18 Time of Service: 16:21 PT Notes 07/08/18 Patient on hold for the afternoon per nursing. SS
[2018-07-08] MEDS: Normal Saline 1,000 ML 150 ML IV (16:28)
--- NOTE | 2018-07-08 16:30 | RESPIRATORY ---
Patient placed on 2Lpm nasal cannula to assist in respiratory effort
[2018-07-08] MEDS: Levalbuterol 1.25 MG/3 ML UPD VIAL UPD (16:32)
--- NOTE | 2018-07-08 16:42 | DI.RAD_ITS ---
SYMPTOM/DIAGNOSIS: TACHYPNEA PORTABLE AP CHEST: Comparison is made with 07/07/18. The exam is limited by respiratory motion and poor pulmonary inflation. A right internal jugular line is again noted. The heart size is unchanged. The lungs show no focal infiltrate. IMPRESSION: Limited exam. No acute abnormality.
--- NOTE | 2018-07-08 17:00 | DI.VRAD_ITS ---
EXAM: XR Chest, 1 View EXAM DATE/TIME: 07/08/2018 4:19 PM CLINICAL HISTORY: 63 years old, female; Signs and symptoms; Other: Tachypnea TECHNIQUE: XR of the chest, 1 view. COMPARISON: SC XR PORTABLE CHEST AP 07/07/2018 10:38 PM FINDINGS: Tubes, catheters and devices: Right approach central venous catheter with its tip in the region of cavoatrial junction. Lungs: Minimal opacity in in the left retrocardiac region which is slightly decreased as compared to prior chest radiograph of 07/07/2018. Pleural space: Unremarkable. No pleural effusion. No pneumothorax. Heart/Mediastinum: Unremarkable. No cardiomegaly. Bones/joints: Degenerative changes of the spine. IMPRESSION: Improved aeration in the left lower lung which may represent improving atelectasis/pneumonia. Dictated and Authenticated by: Yvon Carmichael MD. Ordering:TARYN Presley MD
--- NOTE | 2018-07-08 17:13 | NUR.NOTE ---
Nursing Note: Went in to perform a check and change on the patient and she did not look right. She was diaphoretic, had an increased work of breathing. she was grossly incontinent of BM, I had a staff member assist me to clean her up and change her bed so I could perform a complete assessment. Besides the afore mentioned, she also had wheezes and rhonci to the bases, vs were checked,and hospitalist was called for an order for a duoneb. RT came in and put her on 2 liters of 02 for an assist. Hospitalist, came in, ordered stat labs, ns at 150, change in abx, blood cultures chest x-ray. All of this was performed, Then after speaking to the family hospitalist transfewrred her to the care of the ICU. I gave report to the icu at 1645, and transferred care at 1710
[2018-07-08] MEDS: PIPERACILLIN/TAZO 4.5 GM in Normal Saline 100 ML IVPB (18:03)
--- NOTE | 2018-07-08 18:50 | W.PM.PROGNOT ---
Date of Service Date of service: 07/08/18 Time of Service: 18:50 Assessment and Plan (1) Altered mental status: Current visit: Yes Status: Acute As described by family and nursing staff, appears to involve episodes of confusion, 'staring', near unresponsive state while awake, and a potential post-ictal like state - cannot rule out seizure activity as potential reason. MRI without acute intracranial pathology, including space occupying lesion or acute CVA. EEG essentially normal. 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 Unsure if her symptoms represent waxing and waning encephalopathyin the setting of acute illness vs. seizure activity. Per recommendations will initiate low dose Keppra and follow-up with Neurology in 1-2 months. (2) Hypotension: Current visit: Yes Status: Acute Unusual findings of hypotension with evidence of end-organ damage with KJ and elevation in Lactate - unknown etiology. Initial thought regarding Sepsis/SIRS type picture, but without clear source. Potential for UTI but very weakly positive urinalysis with negative Blood and Urine Cultures. Initially discontinued Vancomycin & Meropenem. Also initiated on stress dosed steroids in case of adrenal insufficiency. Was weaned off pressor therapy and became hypertensive. No signs of anaphylaxis. TSH normal and rules out Hypothyroidism. Again unsure of adrenal crisis as diagnosis - stress dose steroids as above. ECHO ruled out cardiogenic etiology. No persistent arrhythmias on playground monitor. Of note, patient's sister reported that she was just started on thiazide therapy as an outpatient for uncontrolled HTN. Unsure if this was a contributing or sole factor here - both YAMEL-I and HCTZ were on hold. Current hypotension appears more due to acute illness, but currrently unsure of source. Given cough will check Rapid Flu and initiate antibiotic therapy with HCAP coverage as well as aspiration, as there was some concern regarding potential aspiration after patient's lunch. Of note, her initial speech eval without risk. Continue Vancomycin and Pip-Tazo. Will transfer back to the ICU, reinitiate IVFs, hold antihypertensives (low dose BB initiated, and YAMEL-I restarted), and initiate pressor thereapy as needed. RIJ TLC Central Line still in place. (3) KJ (acute kidney injury): Current visit: Yes Status: Acute Likely in setting of hypotension, poor perfusion, with concurrent HCTZ and YMAEL-I use. Both meds continue to be on hold, with pressor support and IVFs as above. Creatinine improved again this morning and now normalized. Monitor. (4) Schizophrenia: Current visit: Yes Status: Chronic Noted. Continue home meds. (5) DVT prophylaxis: Current visit: Yes Status: Acute SC Lovenox. Subjective Interval history since last seen: 63-year-old woman with history of cognitive delay and Hypertension, admitted from [facility] Emergency Department with a diagnosis of Hypotension. Ms. Gardiner has a history of cognitive dysfunction, HTN, GERD, and Schizophrenia. She was initially sent to the emergency room because of several days of nonspecific weakness. In the ED she was noted to be significantly hypotensive with blood pressures in the 60s systolic, but interestingly without tachycardia. She was given fluid resuscitation and started on levophed. Initial laboratory evaluation of note for leukocytosis, low-grade pyuria (5-10 white cells), negative chest x-ray and CT of the abdomen that was unremarkable except for a known cyst in the right lower quadrant. She was then referred for admission for further evaluation and treatment. Today the patient's blood pressure appears improved and she remains off pressor support for the last few hours. She remains afebrile. Her Urine and Blood Cultures remain negative, and her C. Diff and Fecal Leukocytes were negative as well. However, family noted an episode of 'staring' where the patient appeared confused and was minimally responsive. Nursing confirms reports and tells account of Ms. Gardiner being unable to lift her spoon while eating and appearing confused as well. She regained back to her baseline mental status over some time, but was initially confused following the event. MRI of the brain and EEG were both interpreted as essentially normal, and neurology consult was provided as well. Overnight the patient developed some chest discomfort, with an unchanged EKG and ruled out with serial cardiac biomarkers. She also underwent an unremarkable CT Angiogram (although with minimal area of atelectasis or pneumonia in the left lower lobe). She was started overnight on broad spectrum antibiotics. This morning the patient appeared slightly more ill than previously seen, and by afternoon had a worsening cough and dyspnea. A repeat CXR showed no gross abnormalities, and with improved aeration in the left lower lung. Her ECHO was also interpreted as normal. She is afebrile, but with a temperature of 37.6. Exam Narrative Exam Narrative: General: Patient appears more ill at time of exam, diaphoretic but still responsive, awake, and alert. Neck: Supple CV: Regular, nontachycardic, S1S2, No rubs, murmurs, or gallops. Pulmonary: Clear to auscultation bilaterally, no crackles, wheezing, or rhonchi. Breath Sounds decreased overall. Exam appears unchanged with perhaps mild wheezing. Abdomen: + Bowel Sounds, soft, nontender, nondistended Vascular: No lower extremity edema Psych: Normal mood and affect. Objective Objective Clinical Data: Abnormal lab results 07/07/18 07/07/18 07/08/18 Range/Units 21:15 21:15 05:00 WBC (4.4-10.8) k/cumm Hgb (12.0-15.5) g/dL Hct (36.0-46.0) % MCV (80-95) fL MCH (27.0-33.0) pg RDW (11.7-14.6) % Absolute Neutrophils (1.2-6.7) k/cumm Absolute Lymphocytes (1.2-3.4) k/cumm Absolute Monocytes (0.11-0.7) k/cumm D-Dimer 1329 H (<500) ng/mlFEU BUN 20 H (7-18) mg/dL Magnesium 1.6 L (1.8-2.4) mg/dL NT-Pro-B Natriuret Pep 1154 H ( - 299) pg/mL 07/08/18 Range/Units 05:00 WBC 14.02 H (4.4-10.8) k/cumm Hgb 10.7 L (12.0-15.5) g/dL Hct 32.8 L (36.0-46.0) % MCV 75.9 L (80-95) fL MCH 24.8 L (27.0-33.0) pg RDW 16.8 H (11.7-14.6) % Absolute Neutrophils 8.72 H (1.2-6.7) k/cumm Absolute Lymphocytes 3.67 H (1.2-3.4) k/cumm Absolute Monocytes 1.12 H (0.11-0.7) k/cumm D-Dimer (<500) ng/mlFEU BUN (7-18) mg/dL Magnesium (1.8-2.4) mg/dL NT-Pro-B Natriuret Pep ( - 299) pg/mL Vital Signs Temperature 37.4 C 07/08/18 16:13 Temperature Source Tympanic 07/08/18 16:13 Pulse 74 07/08/18 16:32 Pulse Rhythm Regular 07/08/18 13:57 Pulse 102 H 07/07/18 11:01 Respiratory Rate 24 07/08/18 16:32 Respiratory Effort 07/08/18 13:57 Respiratory Depth Normal 07/08/18 13:57 Respiratory Pattern Normal 07/08/18 13:57 Blood Pressure 103/70 07/08/18 16:13 Blood Pressure Mean 102 07/07/18 11:01 Blood Pressure Position Supine 07/07/18 05:05 Pulse Oximetry 94 L 07/08/18 16:32 Oxygen Delivery Method Nasal Cannula 07/08/18 16:32 Oxygen Flow Rate 2 07/08/18 16:32 Pain Level 0 07/07/18 16:08 Comment 07/08/18 16:13 Intake & Output 07/07/18 07/08/18 07/08/18 23:59 11:59 23:59 Intake Total 1865 / 2356.5 430 / 480 50 / 480 Output Total 300 / 475 1550 / 2100 550 / 2100 Balance 1565 / 1881.5 -1120 / -1620 -500 / -1620 Weight 96.2 kg Intake: IV 1285 / 1776.5 130 / 180 50 / 180 Oral 580 / 580 300 / 300 Output: Urine 300 / 475 1550 / 2100 550 / 2100 Other: Urine Color Dark Sofia Pale Yellow Yellow Urine Appearance Clear Clear Clear Cloudy Laboratory Results WBC 14.02 k/cumm (4.4-10.8) H 07/08/18 05:00 RBC 4.32 m/cumm (4.00-5.20) 07/08/18 05:00 Hgb 10.7 g/dL (12.0-15.5) L 07/08/18 05:00 Hct 32.8 % (36.0-46.0) L 07/08/18 05:00 MCV 75.9 fL (80-95) L 07/08/18 05:00 MCH 24.8 pg (27.0-33.0) L 07/08/18 05:00 MCHC 32.6 g/dL (32.0-36.0) 07/08/18 05:00 RDW 16.8 % (11.7-14.6) H 07/08/18 05:00 Plt Count 330 x1000/uL (130-400) 07/08/18 05:00 MPV 10.4 fL (8.0-11.0) 07/08/18 05:00 Immature Gran % 0.4 07/08/18 05:00 Neutrophils % 62.2 07/08/18 05:00 Lymphocytes % 26.2 07/08/18 05:00 Monocytes % 8.0 07/08/18 05:00 Eosinophils % 2.8 07/08/18 05:00 Basophils % 0.4 07/08/18 05:00 Absolute Neutrophils 8.72 k/cumm (1.2-6.7) H 07/08/18 05:00 Absolute Lymphocytes 3.67 k/cumm (1.2-3.4) H 07/08/18 05:00 Absolute Monocytes 1.12 k/cumm (0.11-0.7) H 07/08/18 05:00 Absolute Eosinophils 0.39 k/cumm (0.0-0.7) 07/08/18 05:00 Absolute Basophils 0.06 k/cumm (0.0-0.2) 07/08/18 05:00 Differential Comment Rbc morph reviewed 07/06/18 07:20 RBC Morphology See below 07/06/18 07:20 Hypochromasia 2+ 07/06/18 07:20 Microcytosis 2+ 07/06/18 07:20 Ovalocytes 2+ 07/06/18 07:20 D-Dimer 1329 ng/mlFEU (<500) H 07/07/18 21:15 Sodium 141 mmol/L (136-145) 07/08/18 05:00 Potassium 3.5 mmol/L (3.5-5.1) D 07/08/18 05:00 Chloride 104 mmol/L (98-107) 07/08/18 05:00 Carbon Dioxide 27.8 mmol/L (21.0-32.0) 07/08/18 05:00 Anion Gap 9.2 mmol/L (3-11) 07/08/18 05:00 BUN 20 mg/dL (7-18) H 07/08/18 05:00 Creatinine 0.91 mg/dL (0.55-1.02) 07/08/18 05:00 Estimated GFR/1.73 m2 >= 60.00 (mL/min/1.73m2) 07/08/18 05:00 Glucose 85 mg/dL (70-100) 07/08/18 05:00 Lactate 1.0 mmol/L (0.6-1.4) 07/06/18 07:20 Calcium 8.7 mg/dL (8.5-10.1) 07/08/18 05:00 Magnesium 1.6 mg/dL (1.8-2.4) L 07/08/18 05:00 Total Bilirubin 0.5 mg/dL (0.2-1.0) 07/04/18 13:15 AST 28 U/L (15-37) 07/04/18 13:15 ALT 29 U/L (12-78) 07/04/18 13:15 Alkaline Phosphatase 143 U/L (46-116) H 07/04/18 13:15 Troponin I 0.02 ng/mL (0.00-0.06) 07/08/18 05:00 NT-Pro-B Natriuret Pep 1154 pg/mL (-299) H 07/07/18 21:15 Total Protein 8.2 g/dL (6.4-8.2) 07/04/18 13:15 Albumin 4.3 g/dL (3.4-5.0) 07/04/18 13:15 Lipase 252 U/L (73-393) 07/04/18 13:15 Calcitonin Cancelled 07/08/18 06:24 TSH 1.09 uIU/mL (0.358-3.74) 07/06/18 07:20 Urine Color Yellow (Yellow) 07/04/18 13:15 Urine Clarity Clear 07/04/18 13:15 Urine pH 7.0 (5-8) 07/04/18 13:15 Ur Specific [place] 1.020 (1.005-1.025) 07/04/18 13:15 Urine Protein 100 mg/dL (Negative) H 07/04/18 13:15 Urine Ketones Negative mg/dL (Negative) 07/04/18 13:15 Urine Blood Trace-intact (Negative) H 07/04/18 13:15 Urine Nitrite Negative (Negative) 07/04/18 13:15 Urine Bilirubin Negative (Negative) 07/04/18 13:15 Urine Urobilinogen 0.2 EU/dL (Up TO 0.2) 07/04/18 13:15 Ur Leukocyte Esterase Negative (Negative) 07/04/18 13:15 Urine RBC 3-5 (0-2) H 07/04/18 13:15 Urine WBC 5-10 HPF (0-5) 07/04/18 13:15 Ur Epithelial Cells Rare HPF (Negative) 07/04/18 13:15 Urine Crystals Negative HPF (Negative) 07/04/18 13:15 Urine Bacteria Few HPF (Negative) 07/04/18 13:15 Urine Casts 3-5 hyaline LPF (Negative) 07/04/18 13:15 Urine Mucus Trace (Negative) 07/04/18 13:15 Ur Culture Indicated? Yes 07/04/18 13:15 Urine Glucose Negative mg/dL (Negative) 07/04/18 13:15 Stool Campylobacter PCR Cancelled 07/05/18 17:07 Stool Salmonella PCR Cancelled 07/05/18 17:07 Stool Shigella PCR Cancelled 07/05/18 17:07 Vancomycin Trough 18.6 ug/mL (10.0-20.0) 07/07/18 12:46 Shiga Toxin (PCR) Cancelled 07/05/18 17:07 Path Cons Comment See comment 07/06/18 07:20
[2018-07-08 19:04] LABS: Bilirubin Negative (Negative); Blood Large (Negative); Glucose >=1000 mg/dL (Negative); Ketones 15 mg/dL (Negative); Leukocyte Esterase Negative (Negative); Nitrite Negative (Negative); Specific Gravity >= 1.030 (1.005-1.025); Urobilinogen 0.2 EU/dL (Up TO 0.2)
[2018-07-08 19:47] LABS: Clarity Cloudy
[2018-07-08 20:00] LABS: RBC >50 (0-2)
[2018-07-08 20:01] LABS: C & S Indicated? C&S Done As Ordered
--- NOTE | 2018-07-08 21:31 | PGE_ITS ---
Date of Service Date of service: 07/08/18 Time of Service: 21:28 Subjective Interval history since last seen: Called for hypotension and bradycardia. Case reviewed, currently on empiric antibiotics for presumed sepsis, unknown source. At time I was called BP 70s-80s/ sys with pulse 40-50s. Monitor and 12 lead demonstrate sinus narda with periods of junctional escape and possible slow AF. On Levophed. Meds reviewed, Aricept potentially contributing to inappropriate bradycardia in face of hypotension. I do note that patient had similar pattern on admission and there may be some underlying sinus disease as well. Currently BP has increased to 120/sys, pulse remains similar to above. Have d'elizabeth Aricept. Will also switch levophed to Dopamine as may provide greater chronotropic impact. As of now patient is tolerating the bradycardia, but temporary pacer may be required at some point. Will also continue volume support. Objective Objective Clinical Data: Abnormal lab results 07/07/18 07/07/18 07/08/18 Range/Units 21:15 21:15 05:00 WBC (4.4-10.8) k/cumm Hgb (12.0-15.5) g/dL Hct (36.0-46.0) % MCV (80-95) fL MCH (27.0-33.0) pg RDW (11.7-14.6) % Absolute Neutrophils (1.2-6.7) k/cumm Absolute Lymphocytes (1.2-3.4) k/cumm Absolute Monocytes (0.11-0.7) k/cumm D-Dimer 1329 H (<500) ng/mlFEU BUN 20 H (7-18) mg/dL Magnesium 1.6 L (1.8-2.4) mg/dL NT-Pro-B Natriuret Pep 1154 H ( - 299) pg/mL Ur Specific [place] (1.005-1.025) Urine Protein (Negative) mg/dL Urine Ketones (Negative) mg/dL Urine Blood (Negative) Urine RBC (0-2) Urine Glucose (Negative) mg/dL 07/08/18 07/08/18 Range/Units 05:00 16:30 WBC 14.02 H (4.4-10.8) k/cumm Hgb 10.7 L (12.0-15.5) g/dL Hct 32.8 L (36.0-46.0) % MCV 75.9 L (80-95) fL MCH 24.8 L (27.0-33.0) pg RDW 16.8 H (11.7-14.6) % Absolute Neutrophils 8.72 H (1.2-6.7) k/cumm Absolute Lymphocytes 3.67 H (1.2-3.4) k/cumm Absolute Monocytes 1.12 H (0.11-0.7) k/cumm D-Dimer (<500) ng/mlFEU BUN (7-18) mg/dL Magnesium (1.8-2.4) mg/dL NT-Pro-B Natriuret Pep ( - 299) pg/mL Ur Specific [place] >= 1.030 H (1.005-1.025) Urine Protein 100 H (Negative) mg/dL Urine Ketones 15 H (Negative) mg/dL Urine Blood Large H (Negative) Urine RBC >50 H (0-2) Urine Glucose >=1000 H (Negative) mg/dL Vital Signs Temperature 37.4 C 07/08/18 16:13 Temperature Source Tympanic 07/08/18 16:13 Pulse 50 L 07/08/18 20:18 Pulse Rhythm Regular 07/08/18 13:57 Pulse 66 07/08/18 19:30 Respiratory Rate 20 07/08/18 19:30 Respiratory Effort 07/08/18 15:15 Respiratory Depth Normal 07/08/18 15:15 Respiratory Pattern Normal 07/08/18 15:15 Blood Pressure 79/56 L 07/08/18 20:18 Blood Pressure Mean 63 07/08/18 19:30 Blood Pressure Position Supine 07/07/18 05:05 Pulse Oximetry 97 07/08/18 19:30 Respiratory End-tidal CO2 34 07/07/18 15:01 Oxygen Delivery Method Nasal Cannula 07/08/18 16:32 Oxygen Flow Rate 2 07/08/18 16:32 Pain Level 0 07/08/18 15:15 Comment 07/08/18 16:13 Intake & Output 07/07/18 07/08/18 07/08/18 23:59 11:59 23:59 Intake Total 1865 / 2356.5 680 / 730.33 50.33 / 730.33 Output Total 300 / 475 1550 / 2100 550 / 2100 Balance 1565 / 1881.5 -870 / -1369.67 -499.67 / -1369.67 Weight 96.2 kg 97.5 kg Intake: IV 1285 / 1776.5 380 / 430.33 50.33 / 430.33 Oral 580 / 580 300 / 300 Output: Urine 300 / 475 1550 / 2100 550 / 2100 Other: Urine Color Dark Sofia Pale Yellow Yellow Urine Appearance Clear Clear Clear Cloudy Laboratory Results WBC 14.02 k/cumm (4.4-10.8) H 07/08/18 05:00 RBC 4.32 m/cumm (4.00-5.20) 07/08/18 05:00 Hgb 10.7 g/dL (12.0-15.5) L 07/08/18 05:00 Hct 32.8 % (36.0-46.0) L 07/08/18 05:00 MCV 75.9 fL (80-95) L 07/08/18 05:00 MCH 24.8 pg (27.0-33.0) L 07/08/18 05:00 MCHC 32.6 g/dL (32.0-36.0) 07/08/18 05:00 RDW 16.8 % (11.7-14.6) H 07/08/18 05:00 Plt Count 330 x1000/uL (130-400) 07/08/18 05:00 MPV 10.4 fL (8.0-11.0) 07/08/18 05:00 Immature Gran % 0.4 07/08/18 05:00 Neutrophils % 62.2 07/08/18 05:00 Lymphocytes % 26.2 07/08/18 05:00 Monocytes % 8.0 07/08/18 05:00 Eosinophils % 2.8 07/08/18 05:00 Basophils % 0.4 07/08/18 05:00 Absolute Neutrophils 8.72 k/cumm (1.2-6.7) H 07/08/18 05:00 Absolute Lymphocytes 3.67 k/cumm (1.2-3.4) H 07/08/18 05:00 Absolute Monocytes 1.12 k/cumm (0.11-0.7) H 07/08/18 05:00 Absolute Eosinophils 0.39 k/cumm (0.0-0.7) 07/08/18 05:00 Absolute Basophils 0.06 k/cumm (0.0-0.2) 07/08/18 05:00 Differential Comment Rbc morph reviewed 07/06/18 07:20 RBC Morphology See below 07/06/18 07:20 Hypochromasia 2+ 07/06/18 07:20 Microcytosis 2+ 07/06/18 07:20 Ovalocytes 2+ 07/06/18 07:20 D-Dimer 1329 ng/mlFEU (<500) H 07/07/18 21:15 Sodium 141 mmol/L (136-145) 07/08/18 05:00 Potassium 3.5 mmol/L (3.5-5.1) D 07/08/18 05:00 Chloride 104 mmol/L (98-107) 07/08/18 05:00 Carbon Dioxide 27.8 mmol/L (21.0-32.0) 07/08/18 05:00 Anion Gap 9.2 mmol/L (3-11) 07/08/18 05:00 BUN 20 mg/dL (7-18) H 07/08/18 05:00 Creatinine 0.91 mg/dL (0.55-1.02) 07/08/18 05:00 Estimated GFR/1.73 m2 >= 60.00 (mL/min/1.73m2) 07/08/18 05:00 Glucose 85 mg/dL (70-100) 07/08/18 05:00 Lactate 1.0 mmol/L (0.6-1.4) 07/06/18 07:20 Calcium 8.7 mg/dL (8.5-10.1) 07/08/18 05:00 Magnesium 1.6 mg/dL (1.8-2.4) L 07/08/18 05:00 Total Bilirubin 0.5 mg/dL (0.2-1.0) 07/04/18 13:15 AST 28 U/L (15-37) 07/04/18 13:15 ALT 29 U/L (12-78) 07/04/18 13:15 Alkaline Phosphatase 143 U/L (46-116) H 07/04/18 13:15 Troponin I 0.02 ng/mL (0.00-0.06) 07/08/18 05:00 NT-Pro-B Natriuret Pep 1154 pg/mL (-299) H 07/07/18 21:15 Total Protein 8.2 g/dL (6.4-8.2) 07/04/18 13:15 Albumin 4.3 g/dL (3.4-5.0) 07/04/18 13:15 Lipase 252 U/L (73-393) 07/04/18 13:15 Calcitonin Cancelled 07/08/18 06:24 TSH 1.09 uIU/mL (0.358-3.74) 07/06/18 07:20 Urine Color Brown (Yellow) 07/08/18 16:30 Urine Clarity Cloudy 07/08/18 16:30 Urine pH 6.0 (5-8) 07/08/18 16:30 Ur Specific [place] >= 1.030 (1.005-1.025) H 07/08/18 16:30 Urine Protein 100 mg/dL (Negative) H 07/08/18 16:30 Urine Ketones 15 mg/dL (Negative) H 07/08/18 16:30 Urine Blood Large (Negative) H 07/08/18 16:30 Urine Nitrite Negative (Negative) 07/08/18 16:30 Urine Bilirubin Negative (Negative) 07/08/18 16:30 Urine Urobilinogen 0.2 EU/dL (Up TO 0.2) 07/08/18 16:30 Ur Leukocyte Esterase Negative (Negative) 07/08/18 16:30 Urine RBC >50 (0-2) H 07/08/18 16:30 Urine WBC Not Applicable 07/08/18 16:30 Ur Epithelial Cells Not Applicable 07/08/18 16:30 Urine Crystals Not Applicable 07/08/18 16:30 Urine Bacteria Not Applicable 07/08/18 16:30 Urine Casts 3-5 hyaline LPF (Negative) 07/04/18 13:15 Urine Mucus Not Applicable 07/08/18 16:30 Ur Culture Indicated? C&s done as ordered 07/08/18 16:30 Urine Glucose >=1000 mg/dL (Negative) H 07/08/18 16:30 Stool Campylobacter PCR Cancelled 07/05/18 17:07 Stool Salmonella PCR Cancelled 07/05/18 17:07 Stool Shigella PCR Cancelled 07/05/18 17:07 Vancomycin Trough 18.6 ug/mL (10.0-20.0) 07/07/18 12:46 Shiga Toxin (PCR) Cancelled 07/05/18 17:07 Path Cons Comment See comment 07/06/18 07:20
[2018-07-08] MEDS: DOPamine 400 MG/250 ML BAG 12.797 MG IV (21:33)
[2018-07-09] VITALS (70 sets, daily range): BP systolic 92–163; BP diastolic 56–123; PULSE 54–107; RESP 7–32; TEMP 36–37.6; O2SAT 90–98
[2018-07-09] MEDS: PIPERACILLIN/TAZO 4.5 GM in Normal Saline 100 ML IVPB ×4 (01:38→23:12)
[2018-07-09] MEDS: Hydrocortisone SOD SUC. 100 MG VIAL 50 MG IVP ×4 (01:39→20:54)
[2018-07-09] MEDS: Levalbuterol 1.25 MG/3 ML UPD VIAL UPD ×2 (01:41→14:05)
[2018-07-09] MEDS: Normal Saline 1,000 ML 125 ML IV ×2 (02:38→23:00)
[2018-07-09] MEDS: Normal Saline Flush 10 ML SYR IVP ×2 (06:45→09:23)
[2018-07-09 07:33] LABS: Abs Immature Grans 0.01 k/cumm (0.0-0.09); Absolute Basophil Count 0.01 k/cumm (0.0-0.2); Absolute Eosinophil Count 0.01 k/cumm (0.0-0.7); Absolute Lymphocyte Count 0.88 k/cumm (1.2-3.4); Absolute Neutrophil Count 8.45 k/cumm (1.2-6.7); Basophils % 0.1; Eosinophils % 0.1; HCT 32.9 % (36.0-46.0); HGB 10.5 g/dL (12.0-15.5); Immature Grans % 0.1; Mean Corp. HGB Concentration 31.9 g/dL (32.0-36.0); Mean Corpuscular Hemoglobin 24.5 pg (27.0-33.0); Mean Corpuscular Volume 76.9 fL (80-95); Mean Platelet Volume 10.2 fL (8.0-11.0); Monocytes % 4.1; Neutrophils % 86.6; Platelet Count 301 x1000/uL (130-400); RBC 4.28 m/cumm (4.00-5.20); RBC Distribution Width 17.1 % (11.7-14.6); White Blood Cell Count 9.76 k/cumm (4.4-10.8)
[2018-07-09 07:36] LABS: Anion Gap 10.4 mmol/L (3-11); BUN 18 mg/dL (7-18); CO2 24.6 mmol/L (21.0-32.0); CREATININE 0.84 mg/dL (0.55-1.02); Calcium 8.6 mg/dL (8.5-10.1); Chloride 110 mmol/L (98-107); Glucose 125 mg/dL (70-100); Magnesium 1.8 mg/dL (1.8-2.4); Potassium 3.9 mmol/L (3.5-5.1); Sodium 145 mmol/L (136-145)
--- NOTE | 2018-07-09 08:46 | OT.INNT ---
Date of service: 07/09/18 Time of Service: 08:46 Occupational Therapy Notes 07/09/18 Pt was transferred from Med Surg to ICU, at this time OT will need new referral for continued care. Ashtyn Alvarez OTR/[facility]
[2018-07-09] MEDS: Magnesium Oxide 400 MG TAB PO (09:21)
[2018-07-09] MEDS: Memantine 5 MG TAB 10 MG PO ×2 (09:21→20:56)
[2018-07-09] MEDS: Enoxaparin 40 MG/0.4 ML SYR SC (09:22)
[2018-07-09] MEDS: Loperamide 2 MG CAP PO (09:22)
--- NOTE | 2018-07-09 10:26 | PDOC.CMPRO ---
- If Service Date Differs Date of service: 07/09/18 Time of Service: 10:26 Care Management Progress Note S/O: Christie is lying in bed when this documentation writer visits this morning. She has family in the room with her, whom are supportive and open to discussion. Christie states she's doing good this morning. Christie had low blood pressures last evening, and was started on a Dopamine drip. She also continues on IV Vancomycin at this time. A: 63 year old female admitted to [facility] 07/04/18 for Hypotension P: Christie will return home with increased service supports; anticipate new orders for VNA supports as well as CCC attachment at [facility]. Christie has been managing with private supports at home but is agreeable to additional supports and reports having VNA in the past after surgical procedures. Christie will transport via private vehicle with one of her sisters.
--- NOTE | 2018-07-09 10:48 | PT.INDS ---
Date of service: 07/09/18 Time of Service: 10:48 PT Notes 07/09/18 Referring: Dr. Fernandez Sigala Treatment Dates: 07/07/18-07/08/18 Patient has been transferred to ICU for further medical intervention. Due to acute medical status change, she will be discharged from PT services. If further PT intervention is warranted, a new consultation will be required. Plan: Discharge from PT Karen Floyd, PT, DPT
--- NOTE | 2018-07-09 11:01 | CMPROGNOTE_ITS ---
- If Service Date Differs Date of service: 07/09/18 Time of Service: 10:26 Care Management Progress Note S/O: Christie is lying in bed when this video games storywriter visits this morning. She has family in the room with her, whom are supportive and open to discussion. Christie states she's doing good this morning. Christie had low blood pressures last evening, and was started on a Dopamine drip. She also continues on IV Vancomycin at this time. A: 63 year old female admitted to [facility] 07/04/18 for Hypotension P: Christie will return home with increased service supports; anticipate new orders for VNA supports as well as CCC attachment at [facility]. Christie has been managing with private supports at home but is agreeable to additional supports and reports having VNA in the past after surgical procedures. Christie will transport via private vehicle with one of her sisters.
[2018-07-09] MEDS: Oseltamivir 6 MG/ML 60 ML BTL 75 MG PO ×2 (12:38→20:56)
[2018-07-09] MEDS: VANCOMYCIN 1,000 MG in Normal Saline 250 ML 166.667 MG IVPB (12:40)
[2018-07-09] MEDS: Potassium Chloride Liquid 20 MEQ PKT 10 MEQ PO (12:40)
[2018-07-09] MEDS: Normal Saline 1,000 ML 150 ML IV (12:41)
--- NOTE | 2018-07-09 12:43 | W.PM.PROGNOT ---
Date of Service Date of service: 07/09/18 Time of Service: 12:44 Assessment and Plan (1) Hypotension: Current visit: Yes Status: Acute Initial hypotension with evidence of end-organ damage with KJ and elevation in Lactate - unknown etiology. Initial thought regarding Sepsis/SIRS type picture, but without clear source. Potential for UTI but very weakly positive urinalysis with negative Blood and Urine Cultures. Initially discontinued Vancomycin & Meropenem. Also initiated on stress dosed steroids in case of adrenal insufficiency. Was weaned off pressor therapy and became hypertensive. No signs of anaphylaxis. TSH normal and rules out Hypothyroidism. Again unsure of adrenal crisis as diagnosis - stress dose steroids were initiated. ECHO ruled out cardiogenic etiology. No persistent arrhythmias on phototypesetting equipment monitor, but now patient has become intermittently bradycardic, especially during episodes of hypotension. Initial episode may have been med related as she was just started on thiazide therapy as an outpatient for uncontrolled HTN. Unsure if this was a contributing or sole factor here - both YAMEL-I and HCTZ continue to be on hold. Current hypotension appears more due to acute illness, but unsure of source. Repeat Rapid Flu negative. So far with negative CXR, urine culture, Blood Culture, CT of the chest on 06/27 (small area of atelectasis vs. infiltrate - improved on repeaat CXR), stool cultures, C.Diff, and fecal leukocytes. Nursing reporting continued bouts of coughing URI type symptoms, as well as a 'choking spell' while attempting to eat. Nursing yesterday has simliar concerns. Continue broad spectrum antibiotics with HCAP coverage as well as aspiration. Of note, her initial speech eval without risk. Continue Vancomycin and Pip-Tazo day #2. Modify diet and request speech consult. Continue to monitor in the ICU, reinitiated IVFs, holding antihypertensive, and continue pressor thereapy if needed. Also started on empiric Tamiflu. RIJ TLC Central Line still in place. (2) Bradycardia: Current visit: Yes Status: Acute Abnormally normal heart rate during initial bout of hypotension, then frankly bradycardic - reportedly had a bout of junctional rhythm as well. Will formally review case with cardiology. (3) Altered mental status: Current visit: Yes Status: Acute As described by family and nursing staff, appears to involve episodes of confusion, 'staring', near unresponsive state while awake, and a potential post-ictal like state - cannot rule out seizure activity as potential reason. MRI without acute intracranial pathology, including space occupying lesion or acute CVA. EEG essentially normal. 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 Unsure if her symptoms represent waxing and waning encephalopathy in the setting of acute illness vs. seizure activity. Per recommendations will initiate low dose Keppra and follow-up with Neurology in 1-2 months. (4) KJ (acute kidney injury): Current visit: Yes Status: Acute Likely in setting of hypotension, poor perfusion, with concurrent HCTZ and YAMEL-I use. Both meds continue to be on hold, with pressor support and IVFs as above. Creatinine improved again this morning and now normalized. Monitor. (5) Schizophrenia: Current visit: Yes Status: Chronic Noted. Continue home meds. (6) DVT prophylaxis: Current visit: Yes Status: Acute SC Lovenox. Subjective Interval history since last seen: 63-year-old woman with history of cognitive delay and Hypertension, admitted from [facility] Emergency Department with a diagnosis of Hypotension. Ms. Gardiner has a history of cognitive dysfunction, HTN, GERD, and Schizophrenia. She was initially sent to the emergency room because of several days of nonspecific weakness. In the ED she was noted to be significantly hypotensive with blood pressures in the 60s systolic, but without tachycardia. She was given fluid resuscitation and started on levophed. Initial laboratory evaluation of note for leukocytosis, low-grade pyuria (5-10 white cells), negative chest x-ray and CT of the abdomen that was unremarkable except for a known cyst in the right lower quadrant. She was then referred for admission for further evaluation and treatment. Blood pressure initially improved and she remained off pressor support, eventually being transferred to the medical surgical floor. She remained afebrile. Her Urine and Blood Cultures remained negative, and her C. Diff and Fecal Leukocytes were negative as well. However, family noted an episodes of 'staring' where the patient appeared confused and was minimally responsive. Nursing confirms reports and tells account of Ms. Gardiner being unable to lift her spoon while eating and appearing confused as well. She regained back to her baseline mental status over some time, but was initially confused following the event. MRI of the brain and EEG were both interpreted as essentially normal, and neurology consult was provided as well - current thought regarding waxing and waning encephalopathy in setting of acute illness, with seizure not completely ruled out. As she lives alone and is independed, Low dose Keppra was initiated as prophylaxis. Previously the patient developed some chest discomfort, with an unchanged EKG and ruled out with serial cardiac biomarkers. She also underwent an unremarkable CT Angiogram (although with minimal area of atelectasis or pneumonia in the left lower lobe). She was started overnight on broad spectrum antibiotics. By the morning of 07/08 the patient appeared slightly more ill than previously seen, and by afternoon had a worsening cough and dyspnea. A repeat CXR showed no gross abnormalities, and in fact with improved aeration in the left lower lung. Her ECHO was also interpreted as normal. She continued to be afebrile, but with worsening clinical picture - went on to develop hypotension. She was moved to the ICU and eventually initiated on Dopamine as the patient became bradycardic as well. This morning the patient appears improved, and has been off of pressor therapy for approximately one hour. No other events reported. Remains afebrile. Exam Narrative Exam Narrative: General: Patient appears more ill at time of exam, diaphoretic but still responsive, awake, and alert. Neck: Supple CV: Regular, nontachycardic, S1S2, No rubs, murmurs, or gallops. Pulmonary: Clear to auscultation bilaterally, no crackles, wheezing, or rhonchi. Breath Sounds decreased overall. Exam appears unchanged. Abdomen: + Bowel Sounds, soft, nontender, nondistended Vascular: No lower extremity edema Psych: Normal mood and affect. Objective Objective Clinical Data: Abnormal lab results 07/08/18 07/09/18 07/09/18 Range/Units 16:30 07:00 07:00 Hgb 10.5 L (12.0-15.5) g/dL Hct 32.9 L (36.0-46.0) % MCV 76.9 L (80-95) fL MCH 24.5 L (27.0-33.0) pg MCHC 31.9 L (32.0-36.0) g/dL RDW 17.1 H (11.7-14.6) % Absolute Neutrophils 8.45 H (1.2-6.7) k/cumm Absolute Lymphocytes 0.88 L (1.2-3.4) k/cumm Chloride 110 H (98-107) mmol/L Glucose 125 H (70-100) mg/dL Ur Specific Lockwood >= 1.030 H (1.005-1.025) Urine Protein 100 H (Negative) mg/dL Urine Ketones 15 H (Negative) mg/dL Urine Blood Large H (Negative) Urine RBC >50 H (0-2) Urine Glucose >=1000 H (Negative) mg/dL Vital Signs Temperature 36.8 C 07/09/18 03:00 Temperature Source Temporal Artery Scan 07/09/18 03:00 Pulse 54 L 07/09/18 04:01 Pulse Rhythm Regular 07/08/18 13:57 Pulse 60 07/09/18 04:01 Respiratory Rate 19 07/09/18 04:01 Respiratory Effort 07/09/18 03:00 Respiratory Depth Normal 07/09/18 03:00 Respiratory Pattern Normal 07/09/18 03:00 Blood Pressure 110/59 L 07/09/18 04:01 Blood Pressure Mean 71 07/09/18 04:01 Blood Pressure Position Right Lateral 07/09/18 03:00 Pulse Oximetry 97 07/09/18 07:57 Respiratory End-tidal CO2 34 07/07/18 15:01 Oxygen Delivery Method OxyMask 07/09/18 07:57 Oxygen Flow Rate 2 07/09/18 07:57 Pain Level 0 07/09/18 03:00 Comment 07/08/18 16:13 Intake & Output 07/08/18 07/09/18 07/09/18 23:59 11:59 23:59 Intake Total 195.836 / 875.836 213.939 / 3594.610 3285 / 1213.939 Output Total 850 / 2400 950 / 950 Balance -654.164 / -1524.164 -736.061 / 830.960 2156 / 263.939 Weight 97.5 kg 98.4 kg Intake: IV 195.836 / 575.836 153.939 / 5945.753 8424 / 1153.939 Oral 60 / 60 Output: Urine 850 / 2400 950 / 950 Other: Urine Color Yellow Yellow Urine Appearance Clear Cloudy Cloudy Urine Odor Strong Comment Pt has a patent and draining indwelling campbell cath. Pt has a patent and draining indwelling campbell cath. Voiding Methods Indwelling Catheter Laboratory Results WBC 9.76 k/cumm (4.4-10.8) D 07/09/18 07:00 RBC 4.28 m/cumm (4.00-5.20) 07/09/18 07:00 Hgb 10.5 g/dL (12.0-15.5) L 07/09/18 07:00 Hct 32.9 % (36.0-46.0) L 07/09/18 07:00 MCV 76.9 fL (80-95) L 07/09/18 07:00 MCH 24.5 pg (27.0-33.0) L 07/09/18 07:00 MCHC 31.9 g/dL (32.0-36.0) L 07/09/18 07:00 RDW 17.1 % (11.7-14.6) H 07/09/18 07:00 Plt Count 301 x1000/uL (130-400) 07/09/18 07:00 MPV 10.2 fL (8.0-11.0) 07/09/18 07:00 Immature Gran % 0.1 07/09/18 07:00 Neutrophils % 86.6 07/09/18 07:00 Lymphocytes % 9.0 07/09/18 07:00 Monocytes % 4.1 07/09/18 07:00 Eosinophils % 0.1 07/09/18 07:00 Basophils % 0.1 07/09/18 07:00 Absolute Neutrophils 8.45 k/cumm (1.2-6.7) H 07/09/18 07:00 Absolute Lymphocytes 0.88 k/cumm (1.2-3.4) L 07/09/18 07:00 Absolute Monocytes 0.40 k/cumm (0.11-0.7) 07/09/18 07:00 Absolute Eosinophils 0.01 k/cumm (0.0-0.7) 07/09/18 07:00 Absolute Basophils 0.01 k/cumm (0.0-0.2) 07/09/18 07:00 Differential Comment Rbc morph reviewed 07/06/18 07:20 RBC Morphology See below 07/06/18 07:20 Hypochromasia 2+ 07/06/18 07:20 Microcytosis 2+ 07/06/18 07:20 Ovalocytes 2+ 07/06/18 07:20 D-Dimer 1329 ng/mlFEU (<500) H 07/07/18 21:15 Sodium 145 mmol/L (136-145) 07/09/18 07:00 Potassium 3.9 mmol/L (3.5-5.1) 07/09/18 07:00 Chloride 110 mmol/L (98-107) H 07/09/18 07:00 Carbon Dioxide 24.6 mmol/L (21.0-32.0) 07/09/18 07:00 Anion Gap 10.4 mmol/L (3-11) 07/09/18 07:00 BUN 18 mg/dL (7-18) 07/09/18 07:00 Creatinine 0.84 mg/dL (0.55-1.02) 07/09/18 07:00 Estimated GFR/1.73 m2 >= 60.00 (mL/min/1.73m2) 07/09/18 07:00 Glucose 125 mg/dL (70-100) H 07/09/18 07:00 Lactate 1.0 mmol/L (0.6-1.4) 07/06/18 07:20 Calcium 8.6 mg/dL (8.5-10.1) 07/09/18 07:00 Magnesium 1.8 mg/dL (1.8-2.4) 07/09/18 07:00 Total Bilirubin 0.5 mg/dL (0.2-1.0) 07/04/18 13:15 AST 28 U/L (15-37) 07/04/18 13:15 ALT 29 U/L (12-78) 07/04/18 13:15 Alkaline Phosphatase 143 U/L (46-116) H 07/04/18 13:15 Troponin I 0.02 ng/mL (0.00-0.06) 07/08/18 05:00 NT-Pro-B Natriuret Pep 1154 pg/mL (-299) H 07/07/18 21:15 Total Protein 8.2 g/dL (6.4-8.2) 07/04/18 13:15 Albumin 4.3 g/dL (3.4-5.0) 07/04/18 13:15 Lipase 252 U/L (73-393) 07/04/18 13:15 Calcitonin Cancelled 07/08/18 06:24 TSH 1.09 uIU/mL (0.358-3.74) 07/06/18 07:20 Urine Color Brown (Yellow) 07/08/18 16:30 Urine Clarity Cloudy 07/08/18 16:30 Urine pH 6.0 (5-8) 07/08/18 16:30 Ur Specific Lockwood >= 1.030 (1.005-1.025) H 07/08/18 16:30 Urine Protein 100 mg/dL (Negative) H 07/08/18 16:30 Urine Ketones 15 mg/dL (Negative) H 07/08/18 16:30 Urine Blood Large (Negative) H 07/08/18 16:30 Urine Nitrite Negative (Negative) 07/08/18 16:30 Urine Bilirubin Negative (Negative) 07/08/18 16:30 Urine Urobilinogen 0.2 EU/dL (Up TO 0.2) 07/08/18 16:30 Ur Leukocyte Esterase Negative (Negative) 07/08/18 16:30 Urine RBC >50 (0-2) H 07/08/18 16:30 Urine WBC Not Applicable 07/08/18 16:30 Ur Epithelial Cells Not Applicable 07/08/18 16:30 Urine Crystals Not Applicable 07/08/18 16:30 Urine Bacteria Not Applicable 07/08/18 16:30 Urine Casts 3-5 hyaline LPF (Negative) 07/04/18 13:15 Urine Mucus Not Applicable 07/08/18 16:30 Ur Culture Indicated? C&s done as ordered 07/08/18 16:30 Urine Glucose >=1000 mg/dL (Negative) H 07/08/18 16:30 Stool Campylobacter PCR See comments 07/06/18 12:45 Stool Salmonella PCR See comments 07/06/18 12:45 Stool Shigella PCR See comments 07/06/18 12:45 Vancomycin Trough 18.6 ug/mL (10.0-20.0) 07/07/18 12:46 Shiga Toxin (PCR) See comments 07/06/18 12:45 Path Cons Comment See comment 07/06/18 07:20
--- NOTE | 2018-07-09 12:50 | PGE_ITS ---
Date of Service Date of service: 07/09/18 Time of Service: 12:44 Assessment and Plan (1) Hypotension: Current visit: Yes Status: Acute Initial hypotension with evidence of end-organ damage with KJ and elevation in Lactate - unknown etiology. Initial thought regarding Sepsis/SIRS type picture, but without clear source. Potential for UTI but very weakly positive urinalysis with negative Blood and Urine Cultures. Initially discontinued Vancomycin & Meropenem. Also initiated on stress dosed steroids in case of adrenal insufficiency. Was weaned off pressor therapy and became hypertensive. No signs of anaphylaxis. TSH normal and rules out Hypothyroidism. Again unsure of adrenal crisis as diagnosis - stress dose steroids were initiated. ECHO ruled out cardiogenic etiology. No persistent arrhythmias on cardiac rehabilitation specialist, but now patient has become intermittently bradycardic, especially during episodes of hypotension. Initial episode may have been med related as she was just started on thiazide therapy as an outpatient for uncontrolled HTN. Unsure if this was a contributing or sole factor here - both YAMEL-I and HCTZ continue to be on hold. Current hypotension appears more due to acute illness, but unsure of source. Repeat Rapid Flu negative. So far with negative CXR, urine culture, Blood Culture, CT of the chest on 06/27 (small area of atelectasis vs. infiltrate - improved on repeaat CXR), stool cultures, C.Diff, and fecal leukocytes. Nursing reporting continued bouts of coughing URI type symptoms, as well as a 'choking spell' while attempting to eat. Nursing yesterday has simliar concerns. Continue broad spectrum antibiotics with HCAP coverage as well as aspiration. Of note, her initial speech eval without risk. Continue Vancomycin and Pip-Tazo day #2. Modify diet and request speech consult. Continue to monitor in the ICU, reinitiated IVFs, holding antihypertensive, and continue pressor thereapy if needed. Also started on empiric Tamiflu. RIJ TLC Central Line still in place. (2) Bradycardia: Current visit: Yes Status: Acute Abnormally normal heart rate during initial bout of hypotension, then frankly bradycardic - reportedly had a bout of junctional rhythm as well. Will formally review case with cardiology. (3) Altered mental status: Current visit: Yes Status: Acute As described by family and nursing staff, appears to involve episodes of confusion, 'staring', near unresponsive state while awake, and a potential post- ictal like state - cannot rule out seizure activity as potential reason. MRI without acute intracranial pathology, including space occupying lesion or acute CVA. EEG essentially normal. 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 Unsure if her symptoms represent waxing and waning encephalopathy in the setting of acute illness vs. seizure activity. Per recommendations will initiate low dose Keppra and follow-up with Neurology in 1- 2 months. (4) KJ (acute kidney injury): Current visit: Yes Status: Acute Likely in setting of hypotension, poor perfusion, with concurrent HCTZ and YAMEL-I use. Both meds continue to be on hold, with pressor support and IVFs as above. Creatinine improved again this morning and now normalized. Monitor. (5) Schizophrenia: Current visit: Yes Status: Chronic Noted. Continue home meds. (6) DVT prophylaxis: Current visit: Yes Status: Acute SC Lovenox. Subjective Interval history since last seen: 63-year-old woman with history of cognitive delay and Hypertension, admitted from [facility] Emergency Department with a diagnosis of Hypotension. Ms. Gardiner has a history of cognitive dysfunction, HTN, GERD, and Schizophrenia. She was initially sent to the emergency room because of several days of nonspecific weakness. In the ED she was noted to be significantly hypotensive with blood pressures in the 60s systolic, but without tachycardia. She was given fluid resuscitation and started on levophed. Initial laboratory evaluation of note for leukocytosis, low-grade pyuria (5-10 white cells), negative chest x-ray and CT of the abdomen that was unremarkable except for a known cyst in the right lower quadrant. She was then referred for admission for further evaluation and treatment. Blood pressure initially improved and she remained off pressor support, eventually being transferred to the medical surgical floor. She remained afebrile. Her Urine and Blood Cultures remained negative, and her C. Diff and Fecal Leukocytes were negative as well. However, family noted an episodes of 'staring' where the patient appeared confused and was minimally responsive. Nursing confirms reports and tells account of Ms. Gardiner being unable to lift her spoon while eating and appearing confused as well. She regained back to her baseline mental status over some time, but was initially confused following the event. MRI of the brain and EEG were both interpreted as essentially normal, and neurology consult was provided as well - current thought regarding waxing and waning encephalopathy in setting of acute illness, with seizure not completely ruled out. As she lives alone and is independed, Low dose Keppra was initiated as prophylaxis. Previously the patient developed some chest discomfort, with an unchanged EKG and ruled out with serial cardiac biomarkers. She also underwent an unremarkable CT Angiogram (although with minimal area of atelectasis or pneumonia in the left lower lobe). She was started overnight on broad spectrum antibiotics. By the morning of 07/08 the patient appeared slightly more ill than previously seen, and by afternoon had a worsening cough and dyspnea. A repeat CXR showed no gross abnormalities, and in fact with improved aeration in the left lower lung. Her ECHO was also interpreted as normal. She continued to be afebrile, but with worsening clinical picture - went on to develop hypotension. She was moved to the ICU and eventually initiated on Dopamine as the patient became bradycardic as well. This morning the patient appears improved, and has been off of pressor therapy for approximately one hour. No other events reported. Remains afebrile. Exam Narrative Exam Narrative: General: Patient appears more ill at time of exam, diaphoretic but still responsive, awake, and alert. Neck: Supple CV: Regular, nontachycardic, S1S2, No rubs, murmurs, or gallops. Pulmonary: Clear to auscultation bilaterally, no crackles, wheezing, or rhonchi. Breath Sounds decreased overall. Exam appears unchanged. Abdomen: + Bowel Sounds, soft, nontender, nondistended Vascular: No lower extremity edema Psych: Normal mood and affect. Objective Objective Clinical Data: Abnormal lab results 07/08/18 07/09/18 07/09/18 Range/Units 16:30 07:00 07:00 Hgb 10.5 L (12.0-15.5) g/dL Hct 32.9 L (36.0-46.0) % MCV 76.9 L (80-95) fL MCH 24.5 L (27.0-33.0) pg MCHC 31.9 L (32.0-36.0) g/dL RDW 17.1 H (11.7-14.6) % Absolute Neutrophils 8.45 H (1.2-6.7) k/cumm Absolute Lymphocytes 0.88 L (1.2-3.4) k/cumm Chloride 110 H (98-107) mmol/L Glucose 125 H (70-100) mg/dL Ur Specific [place] >= 1.030 H (1.005-1.025) Urine Protein 100 H (Negative) mg/dL Urine Ketones 15 H (Negative) mg/dL Urine Blood Large H (Negative) Urine RBC >50 H (0-2) Urine Glucose >=1000 H (Negative) mg/dL Vital Signs Temperature 36.8 C 07/09/18 03:00 Temperature Source Temporal Artery Scan 07/09/18 03:00 Pulse 54 L 07/09/18 04:01 Pulse Rhythm Regular 07/08/18 13:57 Pulse 60 07/09/18 04:01 Respiratory Rate 19 07/09/18 04:01 Respiratory Effort 07/09/18 03:00 Respiratory Depth Normal 07/09/18 03:00 Respiratory Pattern Normal 07/09/18 03:00 Blood Pressure 110/59 L 07/09/18 04:01 Blood Pressure Mean 71 07/09/18 04:01 Blood Pressure Position Right Lateral 07/09/18 03:00 Pulse Oximetry 97 07/09/18 07:57 Respiratory End-tidal CO2 34 07/07/18 15:01 Oxygen Delivery Method OxyMask 07/09/18 07:57 Oxygen Flow Rate 2 07/09/18 07:57 Pain Level 0 07/09/18 03:00 Comment 07/08/18 16:13 Intake & Output 07/08/18 07/09/18 07/09/18 23:59 11:59 23:59 Intake Total 195.836 / 875.836 213.939 / 6221.930 9952 / 1213.939 Output Total 850 / 2400 950 / 950 Balance -654.164 / -1524.164 -736.061 / 727.410 4281 / 263.939 Weight 97.5 kg 98.4 kg Intake: IV 195.836 / 575.836 153.939 / 2965.830 9375 / 1153.939 Oral 60 / 60 Output: Urine 850 / 2400 950 / 950 Other: Urine Color Yellow Yellow Urine Appearance Clear Cloudy Cloudy Urine Odor Strong Comment Pt has a patent and draining indwelling campbell cath. Pt has a patent and draining indwelling campbell cath. Voiding Methods Indwelling Catheter Laboratory Results WBC 9.76 k/cumm (4.4-10.8) D 07/09/18 07:00 RBC 4.28 m/cumm (4.00-5.20) 07/09/18 07:00 Hgb 10.5 g/dL (12.0-15.5) L 07/09/18 07:00 Hct 32.9 % (36.0-46.0) L 07/09/18 07:00 MCV 76.9 fL (80-95) L 07/09/18 07:00 MCH 24.5 pg (27.0-33.0) L 07/09/18 07:00 MCHC 31.9 g/dL (32.0-36.0) L 07/09/18 07:00 RDW 17.1 % (11.7-14.6) H 07/09/18 07:00 Plt Count 301 x1000/uL (130-400) 07/09/18 07:00 MPV 10.2 fL (8.0-11.0) 07/09/18 07:00 Immature Gran % 0.1 07/09/18 07:00 Neutrophils % 86.6 07/09/18 07:00 Lymphocytes % 9.0 07/09/18 07:00 Monocytes % 4.1 07/09/18 07:00 Eosinophils % 0.1 07/09/18 07:00 Basophils % 0.1 07/09/18 07:00 Absolute Neutrophils 8.45 k/cumm (1.2-6.7) H 07/09/18 07:00 Absolute Lymphocytes 0.88 k/cumm (1.2-3.4) L 07/09/18 07:00 Absolute Monocytes 0.40 k/cumm (0.11-0.7) 07/09/18 07:00 Absolute Eosinophils 0.01 k/cumm (0.0-0.7) 07/09/18 07:00 Absolute Basophils 0.01 k/cumm (0.0-0.2) 07/09/18 07:00 Differential Comment Rbc morph reviewed 07/06/18 07:20 RBC Morphology See below 07/06/18 07:20 Hypochromasia 2+ 07/06/18 07:20 Microcytosis 2+ 07/06/18 07:20 Ovalocytes 2+ 07/06/18 07:20 D-Dimer 1329 ng/mlFEU (<500) H 07/07/18 21:15 Sodium 145 mmol/L (136-145) 07/09/18 07:00 Potassium 3.9 mmol/L (3.5-5.1) 07/09/18 07:00 Chloride 110 mmol/L (98-107) H 07/09/18 07:00 Carbon Dioxide 24.6 mmol/L (21.0-32.0) 07/09/18 07:00 Anion Gap 10.4 mmol/L (3-11) 07/09/18 07:00 BUN 18 mg/dL (7-18) 07/09/18 07:00 Creatinine 0.84 mg/dL (0.55-1.02) 07/09/18 07:00 Estimated GFR/1.73 m2 >= 60.00 (mL/min/1.73m2) 07/09/18 07:00 Glucose 125 mg/dL (70-100) H 07/09/18 07:00 Lactate 1.0 mmol/L (0.6-1.4) 07/06/18 07:20 Calcium 8.6 mg/dL (8.5-10.1) 07/09/18 07:00 Magnesium 1.8 mg/dL (1.8-2.4) 07/09/18 07:00 Total Bilirubin 0.5 mg/dL (0.2-1.0) 07/04/18 13:15 AST 28 U/L (15-37) 07/04/18 13:15 ALT 29 U/L (12-78) 07/04/18 13:15 Alkaline Phosphatase 143 U/L (46-116) H 07/04/18 13:15 Troponin I 0.02 ng/mL (0.00-0.06) 07/08/18 05:00 NT-Pro-B Natriuret Pep 1154 pg/mL (-299) H 07/07/18 21:15 Total Protein 8.2 g/dL (6.4-8.2) 07/04/18 13:15 Albumin 4.3 g/dL (3.4-5.0) 07/04/18 13:15 Lipase 252 U/L (73-393) 07/04/18 13:15 Calcitonin Cancelled 07/08/18 06:24 TSH 1.09 uIU/mL (0.358-3.74) 07/06/18 07:20 Urine Color Brown (Yellow) 07/08/18 16:30 Urine Clarity Cloudy 07/08/18 16:30 Urine pH 6.0 (5-8) 07/08/18 16:30 Ur Specific [place] >= 1.030 (1.005-1.025) H 07/08/18 16:30 Urine Protein 100 mg/dL (Negative) H 07/08/18 16:30 Urine Ketones 15 mg/dL (Negative) H 07/08/18 16:30 Urine Blood Large (Negative) H 07/08/18 16:30 Urine Nitrite Negative (Negative) 07/08/18 16:30 Urine Bilirubin Negative (Negative) 07/08/18 16:30 Urine Urobilinogen 0.2 EU/dL (Up TO 0.2) 07/08/18 16:30 Ur Leukocyte Esterase Negative (Negative) 07/08/18 16:30 Urine RBC >50 (0-2) H 07/08/18 16:30 Urine WBC Not Applicable 07/08/18 16:30 Ur Epithelial Cells Not Applicable 07/08/18 16:30 Urine Crystals Not Applicable 07/08/18 16:30 Urine Bacteria Not Applicable 07/08/18 16:30 Urine Casts 3-5 hyaline LPF (Negative) 07/04/18 13:15 Urine Mucus Not Applicable 07/08/18 16:30 Ur Culture Indicated? C&s done as ordered 07/08/18 16:30 Urine Glucose >=1000 mg/dL (Negative) H 07/08/18 16:30 Stool Campylobacter PCR See comments 07/06/18 12:45 Stool Salmonella PCR See comments 07/06/18 12:45 Stool Shigella PCR See comments 07/06/18 12:45 Vancomycin Trough 18.6 ug/mL (10.0-20.0) 07/07/18 12:46 Shiga Toxin (PCR) See comments 07/06/18 12:45 Path Cons Comment See comment 07/06/18 07:20
[2018-07-09] MEDS: OLANZapine 5 MG TAB 10 MG PO (22:48)
[2018-07-09] MEDS: Methimazole 5 MG TAB PO (22:48)
[2018-07-09] MEDS: Pantoprazole 40 MG TABCR PO (22:49)
[2018-07-09] MEDS: VANCOMYCIN 1,000 MG in Normal Saline 250 ML 166.6 MG IVPB (23:16)
[2018-07-10] VITALS (43 sets, daily range): BP systolic 101–140; BP diastolic 66–103; PULSE 55–109; RESP 7–24; TEMP 36.5–36.9; O2SAT 90–97
[2018-07-10] MEDS: Hydrocortisone SOD SUC. 100 MG VIAL 50 MG IVP ×4 (03:09→23:22)
[2018-07-10] MEDS: Loperamide 2 MG CAP PO (06:20)
[2018-07-10 07:03] LABS: Abs Immature Grans 0.04 k/cumm (0.0-0.09); Absolute Lymphocyte Count 0.96 k/cumm (1.2-3.4); Absolute Monocyte Count 0.45 k/cumm (0.11-0.7); Absolute Neutrophil Count 6.97 k/cumm (1.2-6.7); HGB 9.7 g/dL (12.0-15.5); Immature Grans % 0.5; Lymphocytes % 11.4; Mean Corp. HGB Concentration 31.3 g/dL (32.0-36.0); Mean Corpuscular Hemoglobin 24.2 pg (27.0-33.0); Mean Corpuscular Volume 77.3 fL (80-95); Mean Platelet Volume 10.3 fL (8.0-11.0); Monocytes % 5.3; Neutrophils % 82.8; Platelet Count 297 x1000/uL (130-400); RBC 4.01 m/cumm (4.00-5.20); RBC Distribution Width 17.2 % (11.7-14.6); White Blood Cell Count 8.42 k/cumm (4.4-10.8)
[2018-07-10 07:12] LABS: Anion Gap 8.7 mmol/L (3-11); BUN 21 mg/dL (7-18); CO2 25.3 mmol/L (21.0-32.0); CREATININE 0.69 mg/dL (0.55-1.02); Calcium 8.8 mg/dL (8.5-10.1); Chloride 114 mmol/L (98-107); Glucose 106 mg/dL (70-100); Magnesium 1.7 mg/dL (1.8-2.4); Potassium 3.5 mmol/L (3.5-5.1); Sodium 148 mmol/L (136-145)
[2018-07-10] MEDS: Levalbuterol 1.25 MG/3 ML UPD VIAL UPD (08:00)
[2018-07-10] MEDS: PIPERACILLIN/TAZO 4.5 GM in Normal Saline 100 ML IVPB ×3 (08:15→23:23)
[2018-07-10] MEDS: Memantine 5 MG TAB 10 MG PO ×2 (08:15→20:21)
[2018-07-10] MEDS: Normal Saline Flush 10 ML SYR IVP (08:16)
[2018-07-10] MEDS: Oseltamivir 6 MG/ML 60 ML BTL 75 MG PO (08:17)
[2018-07-10] MEDS: Enoxaparin 40 MG/0.4 ML SYR SC (08:17)
--- NOTE | 2018-07-10 08:35 | DI.US_ITS ---
SYMPTOM/DIAGNOSIS: CHOKING SENSATION, H/O GRAVES DISEASE THYROID ULTRASOUND: Routine examination was performed. The right lobe measures 4.9 by 1.6 by 1.9 cm. The left lobe measures 4.2 by 2.1 by 1.7 cm. The thyroid gland is heterogeneous with symmetric and normal blood flow. There are multiple thyroid nodules distributed throughout the gland, ranging from cystic and solid. The largest nodule is a solid isoechoic nodule in the superior aspect of the right lobe measuring 1.1 by 1.1 by 1 cm. No internal blood flow is seen. There is an ovoid, hypoechoic nodule in the isthmus measuring .7 by .7 by .4 cm. without internal blood flow. The study is somewhat limited due to patient motion artifact. IMPRESSION: Multi nodular thyroid gland.
[2018-07-10] MEDS: Furosemide 20 MG/2 ML VIAL IVP (09:47)
[2018-07-10] MEDS: Potassium Chloride 20 MEQ TABCR 40 MEQ PO (09:47)
[2018-07-10] MEDS: Magnesium Oxide 400 MG TAB 800 MG PO (09:47)
--- NOTE | 2018-07-10 13:02 | PDOC.CMPRO ---
- If Service Date Differs Date of service: 07/10/18 Time of Service: 13:02 Care Management Progress Note S/O: Christie is sitting up in her chair this morning. She is receptive to discussion. Christie's family had not been in as of this morning when this appeals writer visited with her. Per morning meeting Christie will have a thyroid US today and a speech consult will be put in. No change in DC plan. A: 63 year old female admitted to [facility] 07/04/18 for Hypotension P: Christie will return home with increased service supports; anticipate new orders for VNA supports as well as CCC attachment at [facility]. Christie has been managing with private supports at home but is agreeable to additional supports and reports having VNA in the past after surgical procedures. Christie will transport via private vehicle with one of her sisters.
--- NOTE | 2018-07-10 13:23 | CMPROGNOTE_ITS ---
- If Service Date Differs Date of service: 07/10/18 Time of Service: 13:02 Care Management Progress Note S/O: Christie is sitting up in her chair this morning. She is receptive to discussion. Christie's family had not been in as of this morning when this data analyst report writer visited with her. Per morning meeting Christie will have a thyroid US today and a speech consult will be put in. No change in DC plan. A: 63 year old female admitted to [facility] 07/04/18 for Hypotension P: Christie will return home with increased service supports; anticipate new orders for VNA supports as well as CCC attachment at [facility]. Christie has been managing with private supports at home but is agreeable to additional supports and reports having VNA in the past after surgical procedures. Christie will transport via private vehicle with one of her sisters.
[2018-07-10] MEDS: Normal Saline 1,000 ML 30 ML IV (13:50)
[2018-07-10] MEDS: VANCOMYCIN 1,000 MG in Normal Saline 250 ML 166.6 MG IVPB ×2 (13:53→23:24)
--- NOTE | 2018-07-10 14:15 | PGE_ITS ---
Date of Service Date of service: 07/10/18 Time of Service: 14:14 Assessment and Plan (1) Dysphagia: Current visit: Yes Status: Acute Review of outside records with Barium Swallow from 2007 at [facility] with abnormal findings, including distal esophageal spasms and possible narrowing. There was also noted Unprotected aspiration as well as large GERD with evidence of esophagitis. An ensuing Endoscopy showed a benign appearing stricture, dilated. Patient's symptoms of dysphagia, noted difficulty with meals, and waxing and waning clinical deterioration may be related to recurrence of esophageal stricture, with potential aspiration events and ensuing chemical pneumonitis vs. pneumonia (small area of infiltrate seen on imaging). Continue coverage for potential aspiration pneumonia, repeat Barium Swallow, repeat Speech Consult (patient had been evaluated shortly after admission without significant noted risk). Maintain on current modified diet, and monitor closely. Ultrasound of the thyroid also obtained given history of Grave's Disease, and without evidence of significant enlargement that would cause patient's symptoms. (2) Hypotension: Current visit: Yes Status: Acute Initial hypotension with evidence of end-organ damage with KJ and elevation in Lactate - unknown etiology. Initial thought regarding Sepsis/SIRS type picture, but without clear source. Potential for UTI but very weakly positive urinalysis with negative Blood and Urine Cultures. Initially discontinued Vancomycin & Meropenem. Also initiated on stress dosed steroids in case of adrenal insufficiency. Was weaned off pressor therapy and became hypertensive. No signs of anaphylaxis. TSH normal and ruled out Hypothyroidism. ECHO ruled out cardiogenic etiology. No persistent arrhythmias on boiler coverer, but patient had episodes of intermit sinus bradycardia, especially during episodes of hypotension. Initial episode may have been med related as she was just started on thiazide therapy as an outpatient for uncontrolled HTN. Unsure if this was a contributing or sole factor here - both YAMEL-I and HCTZ continue to be on hold. Recurrent hypotension appears more due to acute illness, potentially on the basis of aspiration. Repeat Rapid Flu negative. So far with negative CXR, urine culture, Blood Culture, CT of the chest on 06/27 (small area of atelectasis vs. infiltrate - improved on repeat CXR), stool cultures, C.Diff, and fecal leukocytes. Nursing reporting continued bouts of coughing URI type symptoms, as well as a 'choking spell' while attempting to eat, with dysphagia under work-up as above. Continue broad spectrum antibiotics with HCAP coverage as well as aspiration. Of note, her initial speech eval without risk. Continue Vancomycin and Pip-Tazo day #3. Continue to monitor in the ICU, reinitiated IVFs, holding antihypertensive, and continue pressor thereapy if needed. Will discontinue empiric Tamiflu. RIJ TLC Central Line still in place. (3) Bradycardia: Current visit: No Status: Acute Abnormally normal heart rate during initial bout of hypotension, then frankly bradycardic - reportedly had a bout of junctional rhythm as well. However, review of EKG by Cardiology/Electrophysiology with note of Sinus Bradycardia. Avoid jovan agents - also with tachycardia noted. 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 Cardiology is aware if patient becomes unstable. (4) Altered mental status: Current visit: Yes Status: Acute As described by family and nursing staff, appears to involve episodes of confusion, 'staring', near unresponsive state while awake, and a potential post- ictal like state - cannot rule out seizure activity as potential reason. MRI without acute intracranial pathology, including space occupying lesion or acute CVA. EEG essentially normal. 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 Unsure if her symptoms represent waxing and waning encephalopathy in the setting of acute illness vs. seizure activity. Per recommendations initiated low dose Keppra and follow-up with Neurology in 1-2 months. (5) KJ (acute kidney injury): Current visit: Yes Status: Acute Likely in setting of hypotension, poor perfusion, with concurrent HCTZ and YAMEL-I use. Both meds continue to be on hold, with pressor support and IVFs as above. Creatinine improved and KJ resolved. (6) Schizophrenia: Current visit: No Status: Chronic Noted. Continue home meds. (7) DVT prophylaxis: Current visit: Yes Status: Acute SC Lovenox. Subjective Interval history since last seen: 63-year-old woman with history of cognitive delay and Hypertension, admitted from [facility] Emergency Department with a diagnosis of Hypotension. Ms. Gardiner has a history of cognitive dysfunction, HTN, GERD, and Schizophrenia. She was initially sent to the emergency room because of several days of nonspecific weakness. In the ED she was noted to be significantly hypotensive with blood pressures in the 60s systolic, but without tachycardia. She was given fluid resuscitation and started on levophed. Initial laboratory evaluation of note for leukocytosis, low-grade pyuria (5-10 white cells), negative chest x-ray and CT of the abdomen that was unremarkable except for a known cyst in the right lower quadrant. She was then referred for admission for further evaluation and treatment. Blood pressure initially improved and she remained off pressor support, eventually being transferred to the medical surgical floor. She remained afebrile. Her Urine and Blood Cultures remained negative, and her C. Diff and Fecal Leukocytes were negative as well. However, family noted an episodes of 'staring' where the patient appeared confused and was minimally responsive. Nursing confirms reports and tells account of Ms. Gardiner being unable to lift her spoon while eating and appearing confused as well. She regained back to her baseline mental status over some time, but was initially confused following the event. MRI of the brain and EEG were both interpreted as essentially normal, and neurology consult was provided as well - current thought regarding waxing and waning encephalopathy in setting of acute illness, with seizure not completely ruled out. As she lives alone and is independent, Low dose Keppra was initiated as seizure prophylaxis. Previously the patient developed some chest discomfort, with an unchanged EKG and ruled out with serial cardiac biomarkers. She also underwent an unremarkable CT Angiogram (although with minimal area of atelectasis or pneumonia in the left lower lobe). She was started overnight on broad spectrum antibiotics. By the morning of 07/08 the patient appeared slightly more ill than previously seen, and by afternoon had a worsening cough and dyspnea. A repeat CXR showed no gross abnormalities, and in fact with improved aeration in the left lower lung. Her ECHO was also interpreted as normal. She continued to be afebrile, but with worsening clinical picture - went on to develop hypotension. She was moved to the ICU and eventually initiated on Dopamine as the patient became bradycardic as well. She has since stabilized and is off pressor therapy - however continues to complain of dysphagia and food 'sticking' in throat. A thyroid ultrasound was obtained given her history of Grave's, showing a MNG. Nursing reports that the patient and family are now reporting a history of esophageal stricture s/p dilation in past at an outside hospital. She appears improved today - continued loose stools reported. Remains afebrile. Exam Narrative Exam Narrative: General: Patient appears less ill than prior exam, awake, and alert, appropriately responsive. NAD. Neck: Supple CV: Regular, nontachycardic, S1S2, No rubs, murmurs, or gallops. Pulmonary: Clear to auscultation bilaterally, no crackles, wheezing, or rhonchi. Breath Sounds decreased overall. Exam appears unchanged. Abdomen: + Bowel Sounds, soft, nontender, nondistended Vascular: No lower extremity edema Psych: Normal mood and affect. Objective Objective Clinical Data: Abnormal lab results 07/10/18 07/10/18 Range/Units 06:40 06:40 Hgb 9.7 L (12.0-15.5) g/dL Hct 31.0 L (36.0-46.0) % MCV 77.3 L (80-95) fL MCH 24.2 L (27.0-33.0) pg MCHC 31.3 L (32.0-36.0) g/dL RDW 17.2 H (11.7-14.6) % Absolute Neutrophils 6.97 H (1.2-6.7) k/cumm Absolute Lymphocytes 0.96 L (1.2-3.4) k/cumm Sodium 148 H (136-145) mmol/L Chloride 114 H (98-107) mmol/L BUN 21 H (7-18) mg/dL Glucose 106 H (70-100) mg/dL Magnesium 1.7 L (1.8-2.4) mg/dL Vital Signs Temperature 36.6 C 07/10/18 14:12 Temperature Source Temporal Artery Scan 07/10/18 14:12 Pulse 90 07/10/18 14:01 Pulse Rhythm Regular 07/08/18 13:57 Pulse 86 07/10/18 14:01 Respiratory Rate 19 07/10/18 14:01 Respiratory Effort Incrsd Work of Breathing 07/10/18 14:12 Respiratory Depth Shallow 07/10/18 14:12 Respiratory Pattern Normal 07/10/18 14:12 Blood Pressure 121/94 H 07/10/18 14:01 Blood Pressure Mean 100 07/10/18 14:01 Blood Pressure Position Right Lateral 07/10/18 03:00 Pulse Oximetry 97 07/10/18 08:30 Respiratory End-tidal CO2 34 07/07/18 15:01 Oxygen Delivery Method Room Air 07/10/18 08:03 Oxygen Flow Rate 0 07/10/18 08:03 Pain Level 0 07/10/18 14:12 Comment 07/08/18 16:13 Intake & Output 07/09/18 07/10/18 07/10/18 23:59 11:59 23:59 Intake Total 3945 / 4158.939 1510 / 1510 Output Total 500 / 2165 625 / 625 Balance 3445 / 1993.939 885 / 885 Weight 101.7 kg Intake: IV 3275 / 3428.939 1510 / 1510 Oral 670 / 730 Output: Urine 500 / 2100 625 / 625 Other: Urine Color Light Sofia Yellow Urine Appearance Cloudy Cloudy Comment Pt has a patent and draining indwelling campbell cath, output QS. Campbell in place Campbell in place Stool Occult Blood Negative Negative Stool Size Moderate Large Stool Characteristics Soft Soft Liquid Brown Brown Laboratory Results WBC 8.42 k/cumm (4.4-10.8) 07/10/18 06:40 RBC 4.01 m/cumm (4.00-5.20) 07/10/18 06:40 Hgb 9.7 g/dL (12.0-15.5) L 07/10/18 06:40 Hct 31.0 % (36.0-46.0) L 07/10/18 06:40 MCV 77.3 fL (80-95) L 07/10/18 06:40 MCH 24.2 pg (27.0-33.0) L 07/10/18 06:40 MCHC 31.3 g/dL (32.0-36.0) L 07/10/18 06:40 RDW 17.2 % (11.7-14.6) H 07/10/18 06:40 Plt Count 297 x1000/uL (130-400) 07/10/18 06:40 MPV 10.3 fL (8.0-11.0) 07/10/18 06:40 Immature Gran % 0.5 07/10/18 06:40 Neutrophils % 82.8 07/10/18 06:40 Lymphocytes % 11.4 07/10/18 06:40 Monocytes % 5.3 07/10/18 06:40 Eosinophils % 0.0 07/10/18 06:40 Basophils % 0.0 07/10/18 06:40 Absolute Neutrophils 6.97 k/cumm (1.2-6.7) H 07/10/18 06:40 Absolute Lymphocytes 0.96 k/cumm (1.2-3.4) L 07/10/18 06:40 Absolute Monocytes 0.45 k/cumm (0.11-0.7) 07/10/18 06:40 Absolute Eosinophils 0.00 k/cumm (0.0-0.7) 07/10/18 06:40 Absolute Basophils 0.00 k/cumm (0.0-0.2) 07/10/18 06:40 Differential Comment Rbc morph reviewed 07/06/18 07:20 RBC Morphology See below 07/06/18 07:20 Hypochromasia 2+ 07/06/18 07:20 Microcytosis 2+ 07/06/18 07:20 Ovalocytes 2+ 07/06/18 07:20 D-Dimer 1329 ng/mlFEU (<500) H 07/07/18 21:15 Sodium 148 mmol/L (136-145) H 07/10/18 06:40 Potassium 3.5 mmol/L (3.5-5.1) 07/10/18 06:40 Chloride 114 mmol/L (98-107) H 07/10/18 06:40 Carbon Dioxide 25.3 mmol/L (21.0-32.0) 07/10/18 06:40 Anion Gap 8.7 mmol/L (3-11) 07/10/18 06:40 BUN 21 mg/dL (7-18) H 07/10/18 06:40 Creatinine 0.69 mg/dL (0.55-1.02) 07/10/18 06:40 Estimated GFR/1.73 m2 >= 60.00 (mL/min/1.73m2) 07/10/18 06:40 Glucose 106 mg/dL (70-100) H 07/10/18 06:40 Lactate 1.0 mmol/L (0.6-1.4) 07/06/18 07:20 Calcium 8.8 mg/dL (8.5-10.1) 07/10/18 06:40 Magnesium 1.7 mg/dL (1.8-2.4) L 07/10/18 06:40 Total Bilirubin 0.5 mg/dL (0.2-1.0) 07/04/18 13:15 AST 28 U/L (15-37) 07/04/18 13:15 ALT 29 U/L (12-78) 07/04/18 13:15 Alkaline Phosphatase 143 U/L (46-116) H 07/04/18 13:15 Troponin I 0.02 ng/mL (0.00-0.06) 07/08/18 05:00 NT-Pro-B Natriuret Pep 1154 pg/mL (-299) H 07/07/18 21:15 Total Protein 8.2 g/dL (6.4-8.2) 07/04/18 13:15 Albumin 4.3 g/dL (3.4-5.0) 07/04/18 13:15 Lipase 252 U/L (73-393) 07/04/18 13:15 Calcitonin Cancelled 07/08/18 06:24 TSH 1.09 uIU/mL (0.358-3.74) 07/06/18 07:20 Urine Color Brown (Yellow) 07/08/18 16:30 Urine Clarity Cloudy 07/08/18 16:30 Urine pH 6.0 (5-8) 07/08/18 16:30 Ur Specific Porcupine >= 1.030 (1.005-1.025) H 07/08/18 16:30 Urine Protein 100 mg/dL (Negative) H 07/08/18 16:30 Urine Ketones 15 mg/dL (Negative) H 07/08/18 16:30 Urine Blood Large (Negative) H 07/08/18 16:30 Urine Nitrite Negative (Negative) 07/08/18 16:30 Urine Bilirubin Negative (Negative) 07/08/18 16:30 Urine Urobilinogen 0.2 EU/dL (Up TO 0.2) 07/08/18 16:30 Ur Leukocyte Esterase Negative (Negative) 07/08/18 16:30 Urine RBC >50 (0-2) H 07/08/18 16:30 Urine WBC Not Applicable 07/08/18 16:30 Ur Epithelial Cells Not Applicable 07/08/18 16:30 Urine Crystals Not Applicable 07/08/18 16:30 Urine Bacteria Not Applicable 07/08/18 16:30 Urine Casts 3-5 hyaline LPF (Negative) 07/04/18 13:15 Urine Mucus Not Applicable 07/08/18 16:30 Ur Culture Indicated? C&s done as ordered 07/08/18 16:30 Urine Glucose >=1000 mg/dL (Negative) H 07/08/18 16:30 Stool Campylobacter PCR See comments 07/06/18 12:45 Stool Salmonella PCR See comments 07/06/18 12:45 Stool Shigella PCR See comments 07/06/18 12:45 Vancomycin Trough 18.6 ug/mL (10.0-20.0) 07/07/18 12:46 Shiga Toxin (PCR) See comments 07/06/18 12:45 Path Cons Comment See comment 07/06/18 07:20
[2018-07-10] MEDS: Magnesium Oxide 400 MG TAB PO (16:31)
[2018-07-10] MEDS: Potassium Chloride 20 MEQ TABCR PO (16:32)
--- NOTE | 2018-07-10 18:29 | NUR.NOTE ---
Pt had marked congestion in her airway after eating dinner. Pt had been sitting upright for meal and no choking was noted during eating. The patient feels the something in my throat feeling is slightly worse after eating. Pt had all liquids or pureed food. (pudding, cottage cheese, thickened milk....)Nursing Note:
[2018-07-10] MEDS: Pantoprazole 40 MG TABCR PO (20:22)
[2018-07-10] MEDS: Methimazole 5 MG TAB PO (21:17)
[2018-07-10] MEDS: OLANZapine 5 MG TAB 10 MG PO (21:17)
[2018-07-11] VITALS (46 sets, daily range): BP systolic 104–169; BP diastolic 62–127; PULSE 57–109; RESP 11–33; TEMP 36.3–37.2; O2SAT 88–99
[2018-07-11] MEDS: Loperamide 2 MG CAP PO (06:14)
[2018-07-11] MEDS: Normal Saline Flush 10 ML SYR IVP ×4 (06:24→17:26)
[2018-07-11 07:29] LABS: Abs Immature Grans 0.08 k/cumm (0.0-0.09); Absolute Basophil Count 0.01 k/cumm (0.0-0.2); Absolute Lymphocyte Count 1.49 k/cumm (1.2-3.4); Absolute Monocyte Count 0.79 k/cumm (0.11-0.7); Absolute Neutrophil Count 9.06 k/cumm (1.2-6.7); Basophils % 0.1; HCT 31.8 % (36.0-46.0); Immature Grans % 0.7; Mean Corp. HGB Concentration 31.4 g/dL (32.0-36.0); Mean Corpuscular Hemoglobin 24.4 pg (27.0-33.0); Mean Corpuscular Volume 77.6 fL (80-95); Mean Platelet Volume 10.5 fL (8.0-11.0); Monocytes % 6.9; Neutrophils % 79.3; Platelet Count 319 x1000/uL (130-400); RBC Distribution Width 17.6 % (11.7-14.6); White Blood Cell Count 11.43 k/cumm (4.4-10.8)
[2018-07-11 07:38] LABS: Anion Gap 8.6 mmol/L (3-11); BUN 29 mg/dL (7-18); CO2 26.4 mmol/L (21.0-32.0); CREATININE 0.81 mg/dL (0.55-1.02); Calcium 8.9 mg/dL (8.5-10.1); Chloride 114 mmol/L (98-107); Glucose 97 mg/dL (70-100); Magnesium 1.7 mg/dL (1.8-2.4); Potassium 3.7 mmol/L (3.5-5.1); Sodium 149 mmol/L (136-145)
--- NOTE | 2018-07-11 09:17 | PT.INIE ---
Date of service: 07/11/18 Time of Service: 09:00 PT Notes Inpatient Physical Therapy Evaluation Date: 07/11/18 Referring Doctor: Dr. Sigala PT Orders: PT CONSULT: evaluate and treat Precautions: fall, standard Patient Profile/Admitting Diagnosis: Patient admitted with c/o weakness, and found in the ER to be hypotensive. During her hospital stay, she developed possible seizure activity versus waxing and waning encephalopathy in the setting of acute illness. She then developed bradycardia and was admitted to the ICU. Initially during her stay, she was receiving PT intervention, although with worsening mobility leading up to her transfer to ICU. New orders were received today to evaluate patient in the ICU. PMHX: cognitive dysfunction; HTN; GERD; schizophrenia; Graves disease; esophageal stricture s/p dilation Social History/Home Situation: Patient lives alone in a single level home. She uses a 4WW at night, and according to family present at time of eval, has been encouarged to use this during the day as well, although with limited compliance. She has a internet sales associate who comes in to help with meals, grocery shopping and housework. She has supportive family in the area, who have been present here at the hospital throughout her stay. Equipment Owned/DME: 4WW Subjective: Christie states that she's feeling well today. She reports that she got up with her walker and nursing and sat in the chair yesterday. She is getting ready to do down for tests at this time. Objective: General Observation: Resting in bed with multiple lines in place. Patient has an IV central line to the right side of her neck, telemetry, and a Bell catheter. Mental Status: A&Ox3 Pain: denies Vital Signs: monitored on telemetry ROM: Right Upper Extremity: AROM allows shoulder flexion to 90 degrees. Wrist and elbow motion are WNL. Left Upper Extremity: AROM allows shoulder flexion to 90 degrees. Wrist and elbow motion are WNL. Right Lower Extremity: Hip flexion allows 80 degrees functionally. Knee motion 0-120 bilaterally. Ankle motion allows 0 degrees DF only. Left Lower Extremity: Hip flexion allows 80 degrees functionally. Knee motion 0-120 bilaterally. Ankle motion allows 0 degrees DF only. Strength: Right Upper Extremity: Shoulder flexion 3-/5. Biceps 3/5. Left Upper Extremity: Shoulder flexion 3-/5. Biceps 3/5. Right Lower Extremity: Patient is functionally able to perform SLR without extension lag. Ankle DF is 3/5 bilat. HS 3/5 bilat. Left Lower Extremity: Patient is functionally able to perform SLR without extension lag. Ankle DF is 3/5 bilat. HS 3/5 bilat. Sensation: intact distally Bed Mobility/Transfers: rolling L->R: mod A rolling R->L: mod A Unable to assess further due to time contraints, as patient is heading down for testing. [facility]. Gait: Unable to assess due to time constraints. Balance: Unable to assess Special Tests: Mobility Limitations Standardized Measure [employer] AM-PAC 6 clicks Basic Mobility Inpatient Short Form: Raw Score: 11 Standardized Score: 33.86 CMS Score: 73% CMS Modifier: CL Informed Consent/Education: Patient instructed in purpose of PT consult and plan of care. Assessment: Patient is a 63 year old female referred to physical therapy services with the diagnosis of diminished mobility related to acute illness. Patient presents with clinical signs and symptoms consistent with diagnosis, with limited evaluation performed today, as patient is undergoing further testing this morning. She currently demonstrates the following impairment level findings: 1. Decreased UE strength 2. Decreased ankle DF 3. Decreased functional strength for rolling 4. Anticipated gait impairments and limitations in activity tolerance Impairments are contributing to the following functional limitations: 1. Decreased independence with bed mobility 2. Decreased independence with transfers 3. Unable to ambulate 4. Anticipated decrease in activity tolerance [facility] score 73% deficit Patient is assessed as a High [id number] complexity based on the following: History: 63 year old female with cognitive delay admitted with weakness and continuing to undergo medical testing, with current diagnoses including bradycardia and possible seizure activity versus waxing and waning encephalopathy in the setting of acute illness. Examination: functional limitations as noted above Presentation: unstable Decision Making: high complexity Goals: Goals X1 week 1. Supine-Sit : supervision 2. Sit-Supine : supervision 3. Sit-Stand : supervision 4. Stand-Sit : supervision 5. Bed-Chair : CG with 4WW 6. Chair-Bed : CG with 4WW 7. Gait : CG with 4WW x 50' Plan of Care/Treatment Plan: 1-2x/day, 7 days/week x 1 week. Plan of care has been reviewed with the [employer] providing the service under Physical Therapy direction. Initiate Physical Therapy intervention for strengthening, bed mobility, transfers, gait, stairs, balance training, use of assistive device. DISCHARGE RECOMMENDATIONS: home with family assistance. Will likely require continued PT intervention via Home Health services TREATMENT CODE/TIME: 25 minutes (00495) G Codes in the area mobility of walking and moving around: current status [id number] CL; projected status GP [id number]. Discharge status (if discharging) GP [id number] CL.
--- NOTE | 2018-07-11 10:23 | DI.RAD_ITS ---
SYMPTOM/DIAGNOSIS: H/O ESOPHAGEAL STRICTURE AND ASPIRATION BARIUM SWALLOW AND UPPER GI: Fluoroscopy Time: 2.01 seconds The examination was performed with the patient in the semi upright position. There was no aspiration or penetration during the examination. There is decreased motility of the esophagus with residual contrast remaining in the mid esophagus. No stricture is seen. No hiatal hernia was noted. No intrinsic or extrinsic masses are seen in the esophagus. There is a question of delay in the ni phase of swallowing. This may be further evaluated with a modified barium swallow with speech pathology. IMPRESSION: 1. No evidence of an esophageal stricture. 2. No evidence of aspiration or penetration during the examination. 3. Decreased esophageal peristalsis. The findings were discussed with Dr. Sigala on the date of the examination.
--- NOTE | 2018-07-11 10:43 | PDOC.CMPRO ---
- If Service Date Differs Date of service: 07/11/18 Time of Service: 10:43 Care Management Progress Note S/O: Christie had a upper GI and barium swallow xray today, she remains in the ICU at this time. Christie had a PT consult today whom will follow her throughout her stay. She continues on IV fluids and IV antibiotics at this time. No change in DC plan. A: 63 year old female admitted to [facility] 07/04/18 for Hypotension P: Christie will return home with increased service supports; anticipate new orders for VNA supports as well as CCC attachment at [facility]. Christie has been managing with private supports at home but is agreeable to additional supports and reports having VNA in the past after surgical procedures. Christie will transport via private vehicle with one of her sisters.
--- NOTE | 2018-07-11 10:46 | CMPROGNOTE_ITS ---
- If Service Date Differs Date of service: 07/11/18 Time of Service: 10:43 Care Management Progress Note S/O: Christie had a upper GI and barium swallow xray today, she remains in the ICU at this time. Christie had a PT consult today whom will follow her throughout her stay. She continues on IV fluids and IV antibiotics at this time. No change in DC plan. A: 63 year old female admitted to [facility] 07/04/18 for Hypotension P: Christie will return home with increased service supports; anticipate new orders for VNA supports as well as CCC attachment at [facility]. Chrsitie has been managing with private supports at home but is agreeable to additional supports and reports having VNA in the past after surgical procedures. Christie will transport via private vehicle with one of her sisters.
[2018-07-11] MEDS: Barium Sulfate 60% W/V 355 ML BTL 175 ML PO (10:47)
[2018-07-11] MEDS: PIPERACILLIN/TAZO 4.5 GM in Normal Saline 100 ML IVPB ×2 (10:57→16:19)
[2018-07-11] MEDS: Memantine 5 MG TAB 10 MG PO ×2 (11:00→19:12)
[2018-07-11] MEDS: Magnesium Oxide 400 MG TAB PO (11:01)
[2018-07-11] MEDS: Enoxaparin 40 MG/0.4 ML SYR SC (11:01)
[2018-07-11] MEDS: Potassium Chloride Liquid 20 MEQ PKT 40 MEQ PO (11:01)
[2018-07-11] MEDS: Pantoprazole 40 MG VIAL IVP ×2 (11:02→19:13)
[2018-07-11 11:35] LABS: Vancomycin, Trough 21.2 ug/mL (10.0-20.0)
[2018-07-11] MEDS: Hydrocortisone SOD SUC. 100 MG VIAL 50 MG IVP (12:05)
--- NOTE | 2018-07-11 12:34 | W.PM.PROGNOT ---
Date of Service Date of service: 07/11/18 Time of Service: 12:35 Assessment and Plan (1) Dysphagia: Current visit: Yes Status: Acute Review of outside records with Barium Swallow from 2007 at [facility] with abnormal findings, including distal esophageal spasms and possible narrowing. There was also noted Unprotected aspiration as well as large GERD with evidence of esophagitis. An ensuing Endoscopy showed a benign appearing stricture, dilated. Patient's symptoms of dysphagia, noted difficulty with meals, and waxing and waning clinical deterioration were concerning for recurrence of esophageal stricture, with potential aspiration events and ensuing chemical pneumonitis vs. pneumonia (small area of infiltrate seen on imaging). Barium Swallow shows no evidence of stricture, but with esophageal dysmotility and retention of barium in the esophagus. Continue coverage for potential aspiration pneumonia, currently on day 4 of vancomycin and Pip-Tazo. Discussed case with GI at both [facility] and [facility] who agree that she needs a diagnostic EGD as an inpatient, but both without bed availability. Plan will be for a surgical consult regarding potential EGD here, and if structural problem is encountered she may warrant transfer and back to a tertiary center for intervention. If not, will need medical management of dysmotility with either Rx vs. consideration for PEG tube placement. Maintain on current modified diet, small frequent meals, and monitor very closely. Ultrasound of the thyroid also obtained given history of Grave's Disease, and without evidence of significant enlargement that would cause patient's symptoms. (2) Hypotension: Current visit: Yes Status: Acute Initial hypotension with evidence of end-organ damage with KJ and elevation in Lactate - unknown etiology. Initial thought regarding Sepsis/SIRS type picture, but without clear source. Potential for UTI but very weakly positive urinalysis with negative Blood and Urine Cultures. Initially discontinued Vancomycin & Meropenem. Also initiated on stress dosed steroids in case of adrenal insufficiency. Was weaned off pressor therapy and became hypertensive. No signs of anaphylaxis. TSH normal and ruled out Hypothyroidism. ECHO ruled out cardiogenic etiology. No persistent arrhythmias on phlebotomy services technician, but patient had episodes of intermit sinus bradycardia, especially during episodes of hypotension. Initial episode may have been med related as she was just started on thiazide therapy as an outpatient for uncontrolled HTN. Unsure if this was a contributing or sole factor here - both YAMEL-I and HCTZ continue to be on hold. Recurrent hypotension appears more due to acute illness, potentially on the basis of aspiration. Repeat Rapid Flu negative. So far with negative CXR, urine culture, Blood Culture, CT of the chest on 06/27 (small area of atelectasis vs. infiltrate - improved on repeat CXR), stool cultures, C.Diff, and fecal leukocytes. Nursing reporting continued bouts of coughing URI type symptoms, as well as a 'choking spell' while attempting to eat, with dysphagia under work-up as above. Continue broad spectrum antibiotics with HCAP coverage as well as aspiration. Of note, her initial speech eval without risk. Continue Vancomycin and Pip-Tazo day #4. Continue to monitor in the ICU, reinitiated IVFs, holding antihypertensive, and continue pressor thereapy if needed. RIJ TLC Central Line still in place. (3) Bradycardia: Current visit: No Status: Acute Abnormally normal heart rate during initial bout of hypotension, then frankly bradycardic - reportedly had a bout of junctional rhythm as well. However, review of EKG by Cardiology/Electrophysiology with note of Sinus Bradycardia. Avoid jovan agents - also with tachycardia noted. 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 Cardiology is aware if patient becomes unstable. (4) Altered mental status: Current visit: Yes Status: Acute As described by family and nursing staff, appears to involve episodes of confusion, 'staring', near unresponsive state while awake, and a potential post-ictal like state - cannot rule out seizure activity as potential reason. MRI without acute intracranial pathology, including space occupying lesion or acute CVA. EEG essentially normal. 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 Unsure if her symptoms represent waxing and waning encephalopathy in the setting of acute illness vs. seizure activity. Per recommendations initiated low dose Keppra and follow-up with Neurology in 1-2 months. (5) KJ (acute kidney injury): Current visit: Yes Status: Acute Likely in setting of hypotension, poor perfusion, with concurrent HCTZ and YAMEL-I use. Both meds continue to be on hold, with pressor support and IVFs as above. Creatinine improved and KJ resolved. (6) Schizophrenia: Current visit: No Status: Chronic Noted. Continue home meds. (7) DVT prophylaxis: Current visit: Yes Status: Acute SC Lovenox. Subjective Interval history since last seen: 63-year-old woman with history of cognitive delay and Hypertension, admitted from [facility] Emergency Department with a diagnosis of Hypotension. Ms. Gardiner has a history of cognitive dysfunction, HTN, GERD, and Schizophrenia. She was initially sent to the emergency room because of several days of nonspecific weakness. In the ED she was noted to be significantly hypotensive with blood pressures in the 60s systolic, but without tachycardia. She was given fluid resuscitation and started on levophed. Initial laboratory evaluation of note for leukocytosis, low-grade pyuria (5-10 white cells), negative chest x-ray and CT of the abdomen that was unremarkable except for a known cyst in the right lower quadrant. She was then referred for admission for further evaluation and treatment. Blood pressure initially improved and she remained off pressor support, eventually being transferred to the medical surgical floor. She remained afebrile. Her Urine and Blood Cultures remained negative, and her C. Diff and Fecal Leukocytes were negative as well. However, family noted an episodes of 'staring' where the patient appeared confused and was minimally responsive. Nursing confirms reports and tells account of Ms. Gardiner being unable to lift her spoon while eating and appearing confused as well. She regained back to her baseline mental status over some time, but was initially confused following the event. MRI of the brain and EEG were both interpreted as essentially normal, and neurology consult was provided as well - current thought regarding waxing and waning encephalopathy in setting of acute illness, with seizure not completely ruled out. As she lives alone and is independent, Low dose Keppra was initiated as seizure prophylaxis. Previously on 07/07 the patient developed some chest discomfort, with an unchanged EKG, and ruled out with serial cardiac biomarkers. She also underwent an unremarkable CT Angiogram (although with minimal area of atelectasis or pneumonia in the left lower lobe). She was started overnight on broad spectrum antibiotics. By the morning of 07/08 the patient appeared slightly more ill than previously seen, and by afternoon had a worsening cough and dyspnea. A repeat CXR showed no gross abnormalities, and in fact with improved aeration in the left lower lung. Her ECHO was also interpreted as normal. She continued to be afebrile, but with worsening clinical picture - went on to develop hypotension. She was moved to the ICU and eventually initiated on Dopamine as the she became bradycardic as well. She has since stabilized and is off pressor therapy - however continues to complain of dysphagia and food 'sticking' in throat. A thyroid ultrasound was obtained given her history of Grave's, showing only a MNG. Nursing reported that the patient and family reported a history of esophageal stricture s/p dilation in past at an outside hospital. An upper GI / Barium Swallow was obtained and showed decreased esophageal motility with retention of barium, but no stricture. She appears stable today. Remains afebrile. Exam Narrative Exam Narrative: General: Patient appears less ill than prior exam, awake, and alert, appropriately responsive. NAD. Neck: Supple CV: Regular, nontachycardic, S1S2, No rubs, murmurs, or gallops. Pulmonary: Clear to auscultation bilaterally, no crackles, wheezing, or rhonchi. Breath Sounds decreased overall. Exam appears unchanged. Abdomen: + Bowel Sounds, soft, nontender, nondistended Vascular: No lower extremity edema Psych: Normal mood and affect. Objective Objective Clinical Data: Abnormal lab results 07/11/18 07/11/18 07/11/18 Range/Units 06:40 06:40 11:10 WBC 11.43 H D (4.4-10.8) k/cumm Hgb 10.0 L (12.0-15.5) g/dL Hct 31.8 L (36.0-46.0) % MCV 77.6 L (80-95) fL MCH 24.4 L (27.0-33.0) pg MCHC 31.4 L (32.0-36.0) g/dL RDW 17.6 H (11.7-14.6) % Absolute Neutrophils 9.06 H (1.2-6.7) k/cumm Absolute Monocytes 0.79 H (0.11-0.7) k/cumm Sodium 149 H (136-145) mmol/L Chloride 114 H (98-107) mmol/L BUN 29 H (7-18) mg/dL Magnesium 1.7 L (1.8-2.4) mg/dL Vancomycin Trough 21.2 H* (10.0-20.0) ug/mL Vital Signs Temperature 37 C 07/11/18 00:05 Temperature Source Temporal Artery Scan 07/11/18 00:05 Pulse 109 H 07/11/18 00:05 Pulse Rhythm Regular 07/08/18 13:57 Pulse 98 H 07/10/18 18:01 Respiratory Rate 19 07/11/18 00:05 Respiratory Effort Incrsd Work of Breathing 07/11/18 00:05 Respiratory Depth Shallow 07/11/18 00:05 Respiratory Pattern Normal 07/11/18 00:05 Blood Pressure 117/79 07/11/18 00:05 Blood Pressure Mean 91 07/11/18 00:05 Blood Pressure Position Right Lateral 07/11/18 00:05 Pulse Oximetry 93 L 07/11/18 00:05 Respiratory End-tidal CO2 34 07/07/18 15:01 Oxygen Delivery Method Room Air 07/11/18 00:05 Oxygen Flow Rate 0 07/11/18 00:05 Pain Level 0 07/11/18 00:05 Comment 07/08/18 16:13 Intake & Output 07/10/18 07/11/18 07/11/18 23:59 11:59 23:59 Intake Total 1329 / 3089 450 / 450 Output Total 1750 / 2375 125 / 125 Balance -421 / 714 325 / 325 Weight 100.1 kg Intake: IV 490 / 2000 450 / 450 Oral 839 / 1089 Output: Urine 1500 / 2125 125 / 125 Stool 250 / 250 Other: Urine Color Straw Straw Urine Appearance Cloudy Cloudy Comment Bell in place, draining QS. Bell in place, draining QS. Stool Occult Blood Negative Negative Stool Size Large Large Stool Characteristics Soft Soft Brown Brown Laboratory Results WBC 11.43 k/cumm (4.4-10.8) H D 07/11/18 06:40 RBC 4.10 m/cumm (4.00-5.20) 07/11/18 06:40 Hgb 10.0 g/dL (12.0-15.5) L 07/11/18 06:40 Hct 31.8 % (36.0-46.0) L 07/11/18 06:40 MCV 77.6 fL (80-95) L 07/11/18 06:40 MCH 24.4 pg (27.0-33.0) L 07/11/18 06:40 MCHC 31.4 g/dL (32.0-36.0) L 07/11/18 06:40 RDW 17.6 % (11.7-14.6) H 07/11/18 06:40 Plt Count 319 x1000/uL (130-400) 07/11/18 06:40 MPV 10.5 fL (8.0-11.0) 07/11/18 06:40 Immature Gran % 0.7 07/11/18 06:40 Neutrophils % 79.3 07/11/18 06:40 Lymphocytes % 13.0 07/11/18 06:40 Monocytes % 6.9 07/11/18 06:40 Eosinophils % 0.0 07/11/18 06:40 Basophils % 0.1 07/11/18 06:40 Absolute Neutrophils 9.06 k/cumm (1.2-6.7) H 07/11/18 06:40 Absolute Lymphocytes 1.49 k/cumm (1.2-3.4) 07/11/18 06:40 Absolute Monocytes 0.79 k/cumm (0.11-0.7) H 07/11/18 06:40 Absolute Eosinophils 0.00 k/cumm (0.0-0.7) 07/11/18 06:40 Absolute Basophils 0.01 k/cumm (0.0-0.2) 07/11/18 06:40 Differential Comment Rbc morph reviewed 07/06/18 07:20 RBC Morphology See below 07/06/18 07:20 Hypochromasia 2+ 07/06/18 07:20 Microcytosis 2+ 07/06/18 07:20 Ovalocytes 2+ 07/06/18 07:20 D-Dimer 1329 ng/mlFEU (<500) H 07/07/18 21:15 Sodium 149 mmol/L (136-145) H 07/11/18 06:40 Potassium 3.7 mmol/L (3.5-5.1) 07/11/18 06:40 Chloride 114 mmol/L (98-107) H 07/11/18 06:40 Carbon Dioxide 26.4 mmol/L (21.0-32.0) 07/11/18 06:40 Anion Gap 8.6 mmol/L (3-11) 07/11/18 06:40 BUN 29 mg/dL (7-18) H 07/11/18 06:40 Creatinine 0.81 mg/dL (0.55-1.02) 07/11/18 06:40 Estimated GFR/1.73 m2 >= 60.00 (mL/min/1.73m2) 07/11/18 06:40 Glucose 97 mg/dL (70-100) 07/11/18 06:40 Lactate 1.0 mmol/L (0.6-1.4) 07/06/18 07:20 Calcium 8.9 mg/dL (8.5-10.1) 07/11/18 06:40 Magnesium 1.7 mg/dL (1.8-2.4) L 07/11/18 06:40 Total Bilirubin 0.5 mg/dL (0.2-1.0) 07/04/18 13:15 AST 28 U/L (15-37) 07/04/18 13:15 ALT 29 U/L (12-78) 07/04/18 13:15 Alkaline Phosphatase 143 U/L (46-116) H 07/04/18 13:15 Troponin I 0.02 ng/mL (0.00-0.06) 07/08/18 05:00 NT-Pro-B Natriuret Pep 1154 pg/mL (-299) H 07/07/18 21:15 Total Protein 8.2 g/dL (6.4-8.2) 07/04/18 13:15 Albumin 4.3 g/dL (3.4-5.0) 07/04/18 13:15 Lipase 252 U/L (73-393) 07/04/18 13:15 Calcitonin Cancelled 07/08/18 06:24 TSH 1.09 uIU/mL (0.358-3.74) 07/06/18 07:20 Urine Color Brown (Yellow) 07/08/18 16:30 Urine Clarity Cloudy 07/08/18 16:30 Urine pH 6.0 (5-8) 07/08/18 16:30 Ur Specific Northrop >= 1.030 (1.005-1.025) H 07/08/18 16:30 Urine Protein 100 mg/dL (Negative) H 07/08/18 16:30 Urine Ketones 15 mg/dL (Negative) H 07/08/18 16:30 Urine Blood Large (Negative) H 07/08/18 16:30 Urine Nitrite Negative (Negative) 07/08/18 16:30 Urine Bilirubin Negative (Negative) 07/08/18 16:30 Urine Urobilinogen 0.2 EU/dL (Up TO 0.2) 07/08/18 16:30 Ur Leukocyte Esterase Negative (Negative) 07/08/18 16:30 Urine RBC >50 (0-2) H 07/08/18 16:30 Urine WBC Not Applicable 07/08/18 16:30 Ur Epithelial Cells Not Applicable 07/08/18 16:30 Urine Crystals Not Applicable 07/08/18 16:30 Urine Bacteria Not Applicable 07/08/18 16:30 Urine Casts 3-5 hyaline LPF (Negative) 07/04/18 13:15 Urine Mucus Not Applicable 07/08/18 16:30 Ur Culture Indicated? C&s done as ordered 07/08/18 16:30 Urine Glucose >=1000 mg/dL (Negative) H 07/08/18 16:30 Stool Campylobacter PCR See comments 07/06/18 12:45 Stool Salmonella PCR See comments 07/06/18 12:45 Stool Shigella PCR See comments 07/06/18 12:45 Vancomycin Trough 21.2 ug/mL (10.0-20.0) H* 07/11/18 11:10 Shiga Toxin (PCR) See comments 07/06/18 12:45 Path Cons Comment See comment 07/06/18 07:20
[2018-07-11] MEDS: VANCOMYCIN 1,000 MG in Normal Saline 250 ML 166.667 MG IVPB (13:24)
[2018-07-11] MEDS: Normal Saline 500 ML 50 ML IV (13:36)
--- NOTE | 2018-07-11 14:00 | W.SURGCON ---
Date of service: 07/11/18 Time of Service: 14:00 Assessment and Plan (1) Dysphagia: Current visit: Yes Status: Acute 63 y/o female with dysphagia. Barium swallow this am suggestive of esophageal dysmotility. Remote history of esophageal stricture/dilation. Discussed with patient and sister re: findings and recommendation for EGD. Procedure for EGD with risks, benefits, and alternatives reviewed. These include but are not limited to risks with anesthesia sedation, bleeding, perforation, missed finding, possible biopsy, and possible dilation. If no stricture is identified, will need medical management of dysmotility. We discussed possible transfer to tertiary center for further intervention as needed. May have to consider PEG placement at some point if symptoms worsen/ fail to improve. All questions answered. Patient and her sister wish for us to proceed with EGD at this time. For endoscopy in am. See orders. History of Present Illness Chief Complaint: Dysphagia Narrative: 63 y/o female seen with her sister at the bedside in the ICU. Patient's case discussed with Dr. Sigala earlier today. Patient was admitted on 07/04/18 for weakness and hypotension. She reportedly passed an initial swallow evaluation but since then has had issues with dysphagia on this admission. Her old records indicate a barium swallow performed in 2007 showed GERD with distal esophageal spasms and possible narrowing. A distal stricture was identified and dilated endoscopically. She had another barium swallow this am which did not show a stricture but was suggestive of esophageal dysmotility with residual barium in the mid-esophagus. GI was consulted at [facility] and [facility] with recommendations for further workup with endoscopy. Surgical consult requested for EGD. Patient has a history of cognitive delay and schizophrenia but is A&Ox3. Consults Consult date: 07/11/18 Requesting physician: Fernandez Sigala Review of Systems Review of Systems All systems reviewed & are unremarkable except as noted in HPI and below Gastrointestinal Denies abdominal pain, Denies nausea and Denies vomiting [facility] Medical History Schizophrenia (Chronic) Cognitive developmental delay (Acute) Hypertension (Chronic) Hypothyroidism (Chronic) Social History household members: none marital status: SINGLE current occupational status: disabled Smoking/Tobacco Use Status: Never alcohol intake: never substance use type: does not use additional social history: Lives alone. Exam Const General: cooperative, comfortable and no acute distress Nutritional Appearance: obese Orientation: alert and oriented x3 HENMT Head: normocephalic and atraumatic Eyes Sclera: sclerae normal Resp Effort & Inspection: normal respiratory effort and able to speak in complete sentences Cardio Jugular venous pressure: no JVD Rate: regular rate Rhythm: regular rhythm GI Inspection: non-distended Palpation: soft, not firm, no guarding, mass (large right lower quadrant mass consistent with cyst per hx/CT) RLQ , not rigid and nontender Skin General skin exam: no rashes or lesions noted and no jaundice Neuro General: alert and oriented x3 Speech: speech normal Results Last Vital Signs Temp 37 C 07/11/18 00:05 Pulse 79 07/11/18 12:01 Resp 17 07/11/18 13:00 BP 145/116 H 07/11/18 12:01 Pulse Ox 98 07/11/18 12:01 Labs : 07/11/18 06:40 07/11/18 06:40 Laboratory Results - last 24 hr 07/11/18 07/11/18 07/11/18 06:40 06:40 11:10 WBC 11.43 H D RBC 4.10 Hgb 10.0 L Hct 31.8 L MCV 77.6 L MCH 24.4 L MCHC 31.4 L RDW 17.6 H Plt Count 319 MPV 10.5 Immature Gran % 0.7 Neutrophils % 79.3 Lymphocytes % 13.0 Monocytes % 6.9 Eosinophils % 0.0 Basophils % 0.1 Absolute Neutrophils 9.06 H Absolute Lymphocytes 1.49 Absolute Monocytes 0.79 H Absolute Eosinophils 0.00 Absolute Basophils 0.01 Sodium 149 H Potassium 3.7 Chloride 114 H Carbon Dioxide 26.4 Anion Gap 8.6 BUN 29 H Creatinine 0.81 Estimated GFR/1.73 m2 >= 60.00 Glucose 97 Calcium 8.9 Magnesium 1.7 L Vancomycin Trough 21.2 H* Imaging Additional studies: Patient Name: VIOLETTA WRIGHT #: [id number]: ICU Ordering Provider: Fernandez Sigala M.D. : ADM IN Primary Care Provider: Souleymane Muller Date of Exam: 07/11/18Sex: F Admission Date: 07/04/18 : 1955 Age: 63 Exam(s) a RF:RF barium swallow & UGI SYMPTOM/DIAGNOSIS: H/O ESOPHAGEAL STRICTURE AND ASPIRATION BARIUM SWALLOW AND UPPER GI: Fluoroscopy Time: 2.01 seconds The examination was performed with the patient in the semi upright position. There was no aspiration or penetration during the examination. There is decreased motility of the esophagus with residual contrast remaining in the mid esophagus. No stricture is seen. No hiatal hernia was noted. No intrinsic or extrinsic masses are seen in the esophagus. There is a question of delay in the ni phase of swallowing. This may be further evaluated with a modified barium swallow with speech pathology. IMPRESSION: 1. No evidence of an esophageal stricture. 2. No evidence of aspiration or penetration during the examination. 3. Decreased esophageal peristalsis. The findings were discussed with Dr. Sigala on the date of the examination. Ordered By: Fernandez Sigala M.D. CC: Dictated By: Souleymane Kee M.D. 07/11/18 1025 Transcribed By: Violetta Almanza 07/11/18 1027 This is privileged, confidential information intended only for the provider named. Any use or distribution by any person other than this provider is strictly prohibited. If you receive this report in error, please notify us immediately at [phone] and return the original report to us at the address above. Thank-you.
--- NOTE | 2018-07-11 15:23 | PT.INTREAT ---
Date of service: 07/11/18 Time of Service: 15:23 PT Notes Inpatient Physical Therapy Treatment Note [facility] Date: 07/11/18 PRECAUTIONS: Fall SUBJECTIVE: Christie states that she feels pretty good today, although she reports I cannot move. OBJECTIVE: PAIN: No complaints of pain BED MOBILITY/TRANSFERS Supine-sit: I Sit-supine: I Sit-stand: CGA Stand-sit: CGA GAIT Assistive Device: 4 WW Weight bearing: Full Assist: CGA Distance: 3 side steps to right THEREX: Patient completed an UE and LE strengthening program while seated at EOB, as per flow sheet. ASSESSMENT: Patient tolerated session well without complaint. Patient was able to tolerate a progression in therapeutic exercise program while seated at edge of bed. Patient would benefit from continued gait and transfer training as well as strengthening for improved mobility. PLAN: Continue with PTs POC TREATMENT CODE/TIME: 30 minutes; (9711 0 x 1, 9753 0 x 1)
[2018-07-11] MEDS: Normal Saline 1,000 ML 100 ML IV (16:28)
[2018-07-11] MEDS: Furosemide 20 MG/2 ML VIAL IVP (17:26)
[2018-07-11] MEDS: Methimazole 5 MG TAB PO (21:21)
[2018-07-11] MEDS: Nystatin POWDER 60 GM JAR TP (21:21)
[2018-07-11] MEDS: OLANZapine 5 MG TAB 10 MG PO (21:21)
[2018-07-12] VITALS (37 sets, daily range): BP systolic 108–180; BP diastolic 63–126; PULSE 61–113; RESP 11–26; TEMP 36.4–36.8; O2SAT 92–98
[2018-07-12] MEDS: PIPERACILLIN/TAZO 4.5 GM in Normal Saline 100 ML IVPB ×4 (00:08→23:36)
[2018-07-12] MEDS: VANCOMYCIN 1,000 MG in Normal Saline 250 ML 167 MG IVPB ×2 (05:40→18:51)
[2018-07-12] MEDS: Normal Saline Flush 10 ML SYR IVP ×3 (05:41→22:21)
[2018-07-12 06:14] LABS: Abs Immature Grans 0.02 k/cumm (0.0-0.09); Absolute Basophil Count 0.01 k/cumm (0.0-0.2); Absolute Eosinophil Count 0.18 k/cumm (0.0-0.7); Absolute Lymphocyte Count 2.28 k/cumm (1.2-3.4); Absolute Monocyte Count 0.71 k/cumm (0.11-0.7); Absolute Neutrophil Count 4.08 k/cumm (1.2-6.7); Basophils % 0.1; Eosinophils % 2.5; HCT 28.2 % (36.0-46.0); HGB 8.7 g/dL (12.0-15.5); Immature Grans % 0.3; Lymphocytes % 31.3; Mean Corp. HGB Concentration 30.9 g/dL (32.0-36.0); Mean Corpuscular Hemoglobin 24.4 pg (27.0-33.0); Mean Corpuscular Volume 79.2 fL (80-95); Mean Platelet Volume 10.7 fL (8.0-11.0); Monocytes % 9.8; Platelet Count 238 x1000/uL (130-400); RBC 3.56 m/cumm (4.00-5.20); RBC Distribution Width 17.5 % (11.7-14.6); White Blood Cell Count 7.28 k/cumm (4.4-10.8)
[2018-07-12 06:38] LABS: Anion Gap 5.4 mmol/L (3-11); BUN 24 mg/dL (7-18); CO2 28.6 mmol/L (21.0-32.0); Calcium 8.4 mg/dL (8.5-10.1); Chloride 118 mmol/L (98-107); Glucose 73 mg/dL (70-100); Magnesium 1.7 mg/dL (1.8-2.4); Potassium 3.3 mmol/L (3.5-5.1); Sodium 152 mmol/L (136-145)
[2018-07-12] MEDS: Lactated Ringers 1,000 ML 30 ML IV (08:55)
--- NOTE | 2018-07-12 09:32 | ROE_ITS ---
Date of service: 07/12/18 Time of Service: 09:28 Operative Note DATE OF PROCEDURE: 07/12/18 PRE-OP DIAGNOSIS: Dysphagia, esophageal dysmotility POST-OP DIAGNOSIS: other (Schatzki's ring) PROCEDURE: Esophagogastroduodenoscopy SURGEON: Leonidas Mcclellan ANESTHESIA: MAC ESTIMATED BLOOD LOSS: 0 PATHOLOGY: none sent COMPLICATIONS: None Patient was transported to: PACU Patient's condition: stable Indications: 63 y/o female with dysphagia. Patient had a barium study on 07/11/18 which suggested esophageal dysmotility. Patient presents at this time for an EGD for further workup. Procedure including risks, benefits, and alternatives discussed with patient and her sister and informed consent obtained prior to proceeding. Findings: Esophagus - mild Schatzki's ring proximal to GE junction, non- obstructing, no pooling of secretions noted Stomach - normal Duodenal bulb/2nd portion - normal Procedure Description: Patient was brought to the operating room and placed in the supine position. Patient was placed under monitored anesthesia care. Time out performed per protocol. Olympus endoscope was introduced transorally and advanced down the esophagus without resistance. No retained food or pooling of secretions seen. The GE junction appeared regular without any acute inflammation. Scope was advanced into the stomach. Normal distensibility and rugae noted. No mucosal lesions noted. Scope was advanced beyond the pylorus up to the second portion of the duodenum. The duodenal mucosa was unremarkable. The scope was withdrawn into the stomach and retroflexed. The proximal stomach and hiatal region were unremarkable. The scope was then straightened and withdrawn. In the distal esophagus, there appeared to be a mild Schatzki's ring proximal to the GE junction. No significant narrowing noted. The lumen was widely patent at the site of the ring and appeared to be too wide for dilation. Scope was then withdrawn completely. The patient tolerated the procedure well.
[2018-07-12] MEDS: Hydrocortisone SOD SUC. 100 MG VIAL 50 MG IVP (10:05)
[2018-07-12] MEDS: Pantoprazole 40 MG VIAL IVP ×2 (10:06→20:49)
[2018-07-12] MEDS: Memantine 5 MG TAB 10 MG PO ×2 (10:07→20:51)
[2018-07-12] MEDS: Nystatin POWDER 60 GM JAR TP ×2 (10:07→20:51)
[2018-07-12] MEDS: Potassium Chloride Liquid 20 MEQ PKT 40 MEQ PO (10:20)
[2018-07-12] MEDS: MAGNESIUM SULFATE 1 GM/100 ML BAG IVPB ×2 (10:20→10:35)
[2018-07-12 10:22] LABS: ALT 47 U/L (12-78); AST 24 U/L (15-37); Albumin 2.2 g/dL (3.4-5.0); Alkaline Phosphatase 65 U/L (46-116); Bilirubin, Total 0.3 mg/dL (0.2-1.0); Total Protein 4.6 g/dL (6.4-8.2)
[2018-07-12] MEDS: DEXTROSE 5%-WATER 1,000 ML 75 ML IV ×2 (10:45→10:47)
--- NOTE | 2018-07-12 12:03 | PDOC.CMPRO ---
Care Management Progress Note S/O Christie had just returned from the OR following an EGD. I did not engage in a conversation at this time. A: 63 yo female admitted for hypotension remains at ICU level of care P: Return to [facility] in [place] and resume independent living. Anticipate referral for NEW services for PT/OT. Family will transport when medically cleared for discharge.
--- NOTE | 2018-07-12 12:11 | CMPROGNOTE_ITS ---
Care Management Progress Note S/O Christie had just returned from the OR following an EGD. I did not engage in a conversation at this time. A: 63 yo female admitted for hypotension remains at ICU level of care P: Return to [facility] in [place] and resume independent living. Anticipate referral for NEW services for PT/OT. Family will transport when medically cleared for discharge.
--- NOTE | 2018-07-12 12:48 | PT.INTREAT ---
Date of service: 07/12/18 Time of Service: 12:48 PT Notes Inpatient Physical Therapy Treatment Note [facility] Date: 07/12/18 PRECAUTIONS: Fall OBJECTIVE: [] PAIN: [] BED MOBILITY/TRANSFERS Rolling L/R: [] Supine-sit: Mod/Max x2 Sit-supine: Mod/Maxx2 Sit-stand: CGA Stand-sit: CGA GAIT Assistive Device: 4WW Weight bearing: Full Assist: CGAx2 Distance: Marching in place, static standing for approx 3 min, and side steps to the left x4. THEREX: Pt completed UE and LE ther ex as per flow sheet. ASSESSMENT: Pt was fatigued fairly quickly today. Bed mobility was difficult today. PLAN: Cont as per PT POC. TREATMENT CODE/TIME: 10:55-11:30 (35) NILDA TORRES
--- NOTE | 2018-07-12 12:51 | PT.INTREAT ---
Date of service: 07/30/18 Time of Service: 15:29 PT Notes Inpatient Physical Therapy Treatment Note [facility] Date: 07/30/18 PRECAUTIONS: Fall and Standard SUBJECTIVE: Pt reports that she is tired from the AM session. She refuses to get OOB but will complete bed ther ex. OBJECTIVE: GAIT THEREX: Pt completed supine UE and LE ther ex as per flow sheet. ASSESSMENT: Pt did seem to be fatigued this afternoon and was not able to tolerate a lot during her session. We will monitor pt's response to today's session and progress accordingly. PLAN: Cont as per PT POC. TREATMENT CODE/TIME: 3:05-3:15 (10) TP
--- NOTE | 2018-07-12 13:12 | DI.US_ITS ---
SYMPTOM/DIAGNOSIS: BILAT CALF SWELLING, ? DVT BILATERAL LOWER EXTREMITY ULTRASOUND: The deep veins of the right lower extremity show normal compression, augmentation and color flow. The visualized portions of the saphenous veins are patent with normal compression. The deep veins of the left lower extremity show normal compression, augmentation and color flow. No evidence of a deep venous thrombus is seen. The visualized portion of the saphenous vein is patent. There is subcutaneous edema seen in the calves bilaterally. IMPRESSION: No evidence of a deep venous thrombus in either lower extremity.
--- NOTE | 2018-07-12 13:30 | DI.VRAD_ITS ---
EXAM: US Bilateral Duplex Lower Extremity Veins EXAM DATE/TIME: 07/12/2018 10:03 AM CLINICAL HISTORY: 63 years old, female; Signs and symptoms; Other: Bilateral calf swelling TECHNIQUE: Real-time duplex ultrasound of the Bilateral Lower Extremities with 2-D arellano scale, color Doppler flow and spectral waveform analysis. Complete exam focused on the bilateral lower extremity veins. COMPARISON: No relevant prior studies available. FINDINGS: Right deep veins: Unremarkable. The common femoral, femoral, proximal profunda femoral and popliteal veins are patent without thrombus. Normal compressibility, augmentation response and Doppler waveforms. Right superficial veins: Saphenofemoral junction is patent without thrombus. Left deep veins: Unremarkable. The common femoral, femoral, proximal profunda femoral and popliteal veins are patent without thrombus. Normal compressibility, augmentation response and Doppler waveforms. Left superficial veins: Saphenofemoral junction is patent without thrombus. Soft tissues: There is subcutaneous edema seen at the calf level bilaterally. IMPRESSION: No evidence for DVT. COMMENT: Preliminary interpretation is based on receipt of 50 image(s). A final report will be issued subsequently. Dictated and Authenticated by: Disha Perry MD. Ordering:SHEILA Robb MD
[2018-07-12 15:27] LABS: Anion Gap 10.5 mmol/L (3-11); BUN 24 mg/dL (7-18); CO2 25.5 mmol/L (21.0-32.0); CREATININE 0.87 mg/dL (0.55-1.02); Chloride 114 mmol/L (98-107); Glucose 141 mg/dL (70-100); Potassium 3.6 mmol/L (3.5-5.1); Sodium 150 mmol/L (136-145)
--- NOTE | 2018-07-12 15:49 | W.PM.PROGNOT ---
Date of Service Date of service: 07/12/18 Time of Service: 15:51 Assessment and Plan (1) Dysphagia: Current visit: Yes Status: Acute with h/o distal esophageal spasms and possible stricture. At the time of the EGD in 2007, there was also noted Unprotected aspiration as well as GERD with evidence of esophagitis. An ensuing Endoscopy showed a benign appearing stricture, dilated. She is s/p EGD today with findings of a Schatzky's ring, though it was felt to be nonobstructing. I am awaiting call back from [facility] to discuss further plan of care. (2) Hypotension: Current visit: Yes Status: Acute Initially, hypotension to the point of shock requiring pressors with evidence of end-organ damage with KJ and elevation in Lactate - unknown etiology. ?Dehydration, ?sepsis. Does not appear to have been adrenal insufficiency. No clear infectious source. Echo without clear cardiogenic explanation. Aspiration pneumonia/recurrent aspiration events now seem like the most likely scenario. Today, the BP is stable at 124/74. Will continue to closely monitor. Continue Vancomycin and Pip-Tazo day #5. Likely ok to transfer out of ICU ass seems to be maintaining BP's. RIJ TLC Central Line still in place. (3) Bradycardia: Current visit: No Status: Acute In setting of hypotension. Avoid jovan agents. ? Tachy/Justin Syndrome. Cardiology is aware if patient becomes unstable. No longer requiring pressors/chronotropes. (4) Altered mental status: Current visit: Yes Status: Acute episodes of confusion, 'staring', near unresponsive state while awake, and a potential post-ictal like state - cannot rule out seizure activity as potential reason, though EEG and MRI were negative. Continue keppra. Will need outpatient neurology follow up. (5) KJ (acute kidney injury): Current visit: Yes Status: Resolved Likely in setting of hypotension, poor perfusion, with concurrent HCTZ and YAMEL-I use. Both meds continue to be on hold. Continue IVF. (6) Schizophrenia: Current visit: No Status: Chronic Noted. Continue home meds. (7) DVT prophylaxis: Current visit: Yes Status: Acute SC Lovenox. (8) Esophageal dysmotility: Current visit: Yes Status: Acute Awaiting discussion with [facility] (9) GERD (gastroesophageal reflux disease): Current visit: Yes Status: Chronic Continue PPI 40 mg IV BID (10) Hypomagnesemia: Current visit: Yes Status: Acute Replete (11) Hypernatremia: Current visit: Yes Status: Acute Likely due to dehydration. IVF changed to D5. Continue with careful sodium monitoring. (12) Hypokalemia: Current visit: Yes Status: Acute replete (13) Discharge planning issues: Current visit: Yes Status: Acute Full code. Can be transferred out of ICU but on tele Awaiting conversation with [facility] re further plans. (14) DVT prophylaxis: Current visit: Yes Status: Acute Lovenox Subjective Interval history since last seen: Ms Gardiner had an EGD this am, which demonstrated a mild Schatzki's ring proximal to the GE junction, which was felt to be nonobstructing and without evidence of pooling of secretions. Following the procedure, the patient felt well, denying dizziness, chest pain, nausea, vomiting. She did complain of some shortness of breath. Exam Narrative Exam Narrative: General: Middle Aged female, somewhat slow to respond to questions, very pleasant HEENT: EOMI, MMM Heart: RRR, no m/r/g Lungs: Clear/diminished breath sounds B GI: abdomen soft, nontender, nondistended Extremities: +2 BLE edema, no clubbing or cyanosis Objective Objective Clinical Data: Abnormal lab results 07/12/18 07/12/18 07/12/18 Range/Units 05:50 05:50 15:05 RBC 3.56 L (4.00-5.20) m/cumm Hgb 8.7 L (12.0-15.5) g/dL Hct 28.2 L (36.0-46.0) % MCV 79.2 L (80-95) fL MCH 24.4 L (27.0-33.0) pg MCHC 30.9 L (32.0-36.0) g/dL RDW 17.5 H (11.7-14.6) % Absolute Monocytes 0.71 H (0.11-0.7) k/cumm Sodium 152 H 150 H (136-145) mmol/L Potassium 3.3 L (3.5-5.1) mmol/L Chloride 118 H 114 H (98-107) mmol/L BUN 24 H 24 H (7-18) mg/dL Glucose 141 H (70-100) mg/dL Calcium 8.4 L (8.5-10.1) mg/dL Magnesium 1.7 L (1.8-2.4) mg/dL Total Protein 4.6 L (6.4-8.2) g/dL Albumin 2.2 L (3.4-5.0) g/dL Vital Signs Temperature 36.4 C L 07/12/18 12:00 Temperature Source Temporal Artery Scan 07/12/18 12:00 Pulse 64 07/12/18 08:01 Pulse Rhythm Regular 07/08/18 13:57 Pulse 67 07/12/18 08:01 Respiratory Rate 19 07/12/18 12:00 Respiratory Effort 07/12/18 12:00 Respiratory Depth Normal 07/12/18 12:00 Respiratory Pattern Irregular 07/12/18 12:00 Blood Pressure 124/74 07/12/18 08:01 Blood Pressure Mean 86 07/12/18 08:01 Blood Pressure Position Supine 07/12/18 12:00 Pulse Oximetry 96 07/12/18 08:01 Respiratory End-tidal CO2 34 07/07/18 15:01 Oxygen Delivery Method Room Air 07/12/18 12:00 Oxygen Flow Rate 0 07/12/18 12:00 Pain Level 0 07/12/18 12:00 Comment 07/08/18 16:13 Intake & Output 07/11/18 07/12/18 07/12/18 23:59 11:59 23:59 Intake Total 1667.833 / 2680.833 1355 / 1355 Output Total 2100 / 2225 450 / 450 Balance -432.167 / 455.833 905 / 905 Weight 100.7 kg Intake: IV 1017.833 / 2030.833 1355 / 1355 Oral 650 / 650 Output: Urine 2100 / 2225 450 / 450 Other: Urine Color Yellow Yellow Urine Appearance Sediment Clear Comment campbell in place. Campbell in place. campbell in place. Stool Occult Blood Negative Stool Size Small Stool Characteristics Liquid Laboratory Results WBC 7.28 k/cumm (4.4-10.8) D 07/12/18 05:50 RBC 3.56 m/cumm (4.00-5.20) L 07/12/18 05:50 Hgb 8.7 g/dL (12.0-15.5) L 07/12/18 05:50 Hct 28.2 % (36.0-46.0) L 07/12/18 05:50 MCV 79.2 fL (80-95) L 07/12/18 05:50 MCH 24.4 pg (27.0-33.0) L 07/12/18 05:50 MCHC 30.9 g/dL (32.0-36.0) L 07/12/18 05:50 RDW 17.5 % (11.7-14.6) H 07/12/18 05:50 Plt Count 238 x1000/uL (130-400) 07/12/18 05:50 MPV 10.7 fL (8.0-11.0) 07/12/18 05:50 Immature Gran % 0.3 07/12/18 05:50 Neutrophils % 56.0 07/12/18 05:50 Lymphocytes % 31.3 07/12/18 05:50 Monocytes % 9.8 07/12/18 05:50 Eosinophils % 2.5 07/12/18 05:50 Basophils % 0.1 07/12/18 05:50 Absolute Neutrophils 4.08 k/cumm (1.2-6.7) 07/12/18 05:50 Absolute Lymphocytes 2.28 k/cumm (1.2-3.4) 07/12/18 05:50 Absolute Monocytes 0.71 k/cumm (0.11-0.7) H 07/12/18 05:50 Absolute Eosinophils 0.18 k/cumm (0.0-0.7) 07/12/18 05:50 Absolute Basophils 0.01 k/cumm (0.0-0.2) 07/12/18 05:50 Differential Comment Rbc morph reviewed 07/06/18 07:20 RBC Morphology See below 07/06/18 07:20 Hypochromasia 2+ 07/06/18 07:20 Microcytosis 2+ 07/06/18 07:20 Ovalocytes 2+ 07/06/18 07:20 D-Dimer 1329 ng/mlFEU (<500) H 07/07/18 21:15 Sodium 150 mmol/L (136-145) H 07/12/18 15:05 Potassium 3.6 mmol/L (3.5-5.1) 07/12/18 15:05 Chloride 114 mmol/L (98-107) H 07/12/18 15:05 Carbon Dioxide 25.5 mmol/L (21.0-32.0) 07/12/18 15:05 Anion Gap 10.5 mmol/L (3-11) 07/12/18 15:05 BUN 24 mg/dL (7-18) H 07/12/18 15:05 Creatinine 0.87 mg/dL (0.55-1.02) 07/12/18 15:05 Estimated GFR/1.73 m2 >= 60.00 (mL/min/1.73m2) 07/12/18 15:05 Glucose 141 mg/dL (70-100) H 07/12/18 15:05 Lactate 1.0 mmol/L (0.6-1.4) 07/06/18 07:20 Calcium 9.0 mg/dL (8.5-10.1) 07/12/18 15:05 Magnesium 1.7 mg/dL (1.8-2.4) L 07/12/18 05:50 Total Bilirubin 0.3 mg/dL (0.2-1.0) 07/12/18 05:50 Conjugated Bilirubin 0.10 mg/dL (0.00-0.20) 07/12/18 05:50 AST 24 U/L (15-37) 07/12/18 05:50 ALT 47 U/L (12-78) 07/12/18 05:50 Alkaline Phosphatase 65 U/L (46-116) 07/12/18 05:50 Troponin I 0.02 ng/mL (0.00-0.06) 07/08/18 05:00 NT-Pro-B Natriuret Pep 1154 pg/mL (-299) H 07/07/18 21:15 Total Protein 4.6 g/dL (6.4-8.2) L 07/12/18 05:50 Albumin 2.2 g/dL (3.4-5.0) L 07/12/18 05:50 Lipase 252 U/L (73-393) 07/04/18 13:15 Calcitonin Cancelled 07/08/18 06:24 TSH 1.09 uIU/mL (0.358-3.74) 07/06/18 07:20 Urine Color Brown (Yellow) 07/08/18 16:30 Urine Clarity Cloudy 07/08/18 16:30 Urine pH 6.0 (5-8) 07/08/18 16:30 Ur Specific [place] >= 1.030 (1.005-1.025) H 07/08/18 16:30 Urine Protein 100 mg/dL (Negative) H 07/08/18 16:30 Urine Ketones 15 mg/dL (Negative) H 07/08/18 16:30 Urine Blood Large (Negative) H 07/08/18 16:30 Urine Nitrite Negative (Negative) 07/08/18 16:30 Urine Bilirubin Negative (Negative) 07/08/18 16:30 Urine Urobilinogen 0.2 EU/dL (Up TO 0.2) 07/08/18 16:30 Ur Leukocyte Esterase Negative (Negative) 07/08/18 16:30 Urine RBC >50 (0-2) H 07/08/18 16:30 Urine WBC Not Applicable 07/08/18 16:30 Ur Epithelial Cells Not Applicable 07/08/18 16:30 Urine Crystals Not Applicable 07/08/18 16:30 Urine Bacteria Not Applicable 07/08/18 16:30 Urine Casts 3-5 hyaline LPF (Negative) 07/04/18 13:15 Urine Mucus Not Applicable 07/08/18 16:30 Ur Culture Indicated? C&s done as ordered 07/08/18 16:30 Urine Glucose >=1000 mg/dL (Negative) H 07/08/18 16:30 Stool Campylobacter PCR See comments 07/06/18 12:45 Stool Salmonella PCR See comments 07/06/18 12:45 Stool Shigella PCR See comments 07/06/18 12:45 Vancomycin Trough 21.2 ug/mL (10.0-20.0) H* 07/11/18 11:10 Shiga Toxin (PCR) See comments 07/06/18 12:45 Path Cons Comment See comment 07/06/18 07:20 Venous doppler BLE's: No evidence for DVT.
[2018-07-12] MEDS: Methimazole 5 MG TAB PO (20:50)
[2018-07-12] MEDS: OLANZapine 5 MG TAB 10 MG PO (20:51)
[2018-07-13] VITALS (32 sets, daily range): BP systolic 113–169; BP diastolic 65–110; PULSE 75–90; RESP 10–34; TEMP 37.6; O2SAT 91–98
[2018-07-13] MEDS: PIPERACILLIN/TAZO 4.5 GM in Normal Saline 100 ML IVPB ×2 (08:01→16:11)
[2018-07-13] MEDS: Normal Saline Flush 10 ML SYR IVP ×3 (08:04→10:55)
[2018-07-13 08:40] LABS: Vancomycin, Trough 19.7 ug/mL (10.0-20.0)
[2018-07-13 08:41] LABS: Magnesium 1.8 mg/dL (1.8-2.4)
--- NOTE | 2018-07-13 08:45 | DI.CT_ITS ---
SYMPTOM/DIAGNOSIS: ? CVA,WEAKNESS RT SIDE OF FACE, FACIAL DROOP NONCONTRAST HEAD CT: Comparison is made with 07/04/18. There is prominence of the ventricles and sulci consistent with age appropriate cerebral atrophy. Areas of decreased attenuation are seen in the white matter consistent with small vessel ischemic disease. No acute intracranial hemorrhage, infarct, midline shift or mass effect is identified. The ventricles are intact. The basilar cisterns are patent. The visualized paranasal sinuses are clear. The mastoid air cells are well pneumatized. The calvarium is intact. IMPRESSION: No acute intracranial process.
--- NOTE | 2018-07-13 09:13 | DI.VRAD_ITS ---
EXAM: CT Head Without Contrast EXAM DATE/TIME: 07/13/2018 7:26 AM CLINICAL HISTORY: 63 years old, female; Signs and symptoms; Other: R/O CVA TECHNIQUE: Axial computed tomography images of the head/brain without contrast. All CT scans at this facility use at least one of these dose optimization techniques: automated exposure control; mA and/or kV adjustment per patient size (includes targeted exams where dose is matched to clinical indication); or iterative reconstruction. Coronal and sagittal reformatted images were created and reviewed. COMPARISON: CT Head^HEAD ROUTINE (Adult) 07/04/2018 3:18 PM FINDINGS: Brain: No acute intracranial hemorrhage. There is mild diffuse heterogeneity of the white matter attenuation, consistent with chronic white matter ischemic changes. Mild cerebral atrophy Ventricles: Normal. No ventriculomegaly. Bones/joints: Normal. No acute fracture. Sinuses: Normal as visualized. No acute sinusitis. Mastoid air cells: Normal as visualized. No mastoid effusion. Soft tissues: Normal. IMPRESSION: No acute intracranial hemorrhage. Dictated and Authenticated by: Jerrell Whipple MD. Ordering:SHEILA Robb MD
[2018-07-13 09:14] LABS: Abs Immature Grans 0.06 k/cumm (0.0-0.09); Absolute Basophil Count 0.02 k/cumm (0.0-0.2); Absolute Eosinophil Count 0.17 k/cumm (0.0-0.7); Absolute Lymphocyte Count 1.57 k/cumm (1.2-3.4); Absolute Monocyte Count 1.05 k/cumm (0.11-0.7); Absolute Neutrophil Count 6.91 k/cumm (1.2-6.7); Basophils % 0.2; Eosinophils % 1.7; HCT 33.3 % (36.0-46.0); HGB 10.8 g/dL (12.0-15.5); Immature Grans % 0.6; Lymphocytes % 16.1; Mean Corp. HGB Concentration 32.4 g/dL (32.0-36.0); Mean Corpuscular Hemoglobin 25.1 pg (27.0-33.0); Mean Corpuscular Volume 77.4 fL (80-95); Mean Platelet Volume 10.1 fL (8.0-11.0); Monocytes % 10.7; Neutrophils % 70.7; Platelet Count 285 x1000/uL (130-400); RBC Distribution Width 17.7 % (11.7-14.6); White Blood Cell Count 9.78 k/cumm (4.4-10.8)
[2018-07-13 09:25] LABS: Anion Gap 7.4 mmol/L (3-11); BUN 21 mg/dL (7-18); CO2 26.6 mmol/L (21.0-32.0); CREATININE 0.85 mg/dL (0.55-1.02); Calcium 8.9 mg/dL (8.5-10.1); Chloride 115 mmol/L (98-107); Glucose 110 mg/dL (70-100); Potassium 3.3 mmol/L (3.5-5.1); Sodium 149 mmol/L (136-145)
[2018-07-13] MEDS: VANCOMYCIN 1,000 MG in Normal Saline 250 ML 167 MG IVPB (09:28)
[2018-07-13] MEDS: Pantoprazole 40 MG VIAL IVP ×2 (09:36→20:47)
[2018-07-13] MEDS: Hydrocortisone SOD SUC. 100 MG VIAL 50 MG IVP (09:36)
[2018-07-13] MEDS: Memantine 5 MG TAB 10 MG PO ×2 (09:36→20:42)
[2018-07-13] MEDS: Loperamide 2 MG CAP PO (09:37)
[2018-07-13] MEDS: Enoxaparin 40 MG/0.4 ML SYR SC (09:38)
[2018-07-13] MEDS: Nystatin POWDER 60 GM JAR TP ×2 (09:38→20:42)
[2018-07-13] MEDS: Bumetanide 1 MG/4 ML VIAL 0.5 MG IVP (10:56)
--- NOTE | 2018-07-13 11:28 | PGE_ITS ---
Date of Service Date of service: 07/13/18 Time of Service: 11:24 Assessment and Plan (1) Esophageal dysmotility: Current visit: Yes Status: Acute Case discussed with GI at [facility] per Dr. Barrera with recommmendation for outpatient manometry noted. May be considering PEG if not improving. Noting further to add at this time. Will sign off for now. Please reconsult surgery as needed. Subjective Interval history since last seen: Chart reviewed. Patient denies any abdominal pain. No new complaints. She is NPO for now awaiting another swallow eval. Exam Const General: cooperative and no acute distress Nutritional Appearance: obese Orientation: alert Eyes Sclera: sclerae normal Resp Effort & Inspection: normal respiratory effort and able to speak in complete sentences Cardio Jugular venous pressure: no JVD Rate: regular rate Rhythm: regular rhythm GI Inspection: non-distended Palpation: soft, not firm, no guarding, mass (known cyst/seroma RLQ seen on CT) and nontender Skin General skin exam: no jaundice Objective Objective Clinical Data: Abnormal lab results 07/12/18 07/13/18 07/13/18 Range/Units 15:05 08:05 09:00 Hgb 10.8 L D (12.0-15.5) g/dL Hct 33.3 L (36.0-46.0) % MCV 77.4 L (80-95) fL MCH 25.1 L (27.0-33.0) pg RDW 17.7 H (11.7-14.6) % Absolute Neutrophils 6.91 H (1.2-6.7) k/cumm Absolute Monocytes 1.05 H (0.11-0.7) k/cumm Sodium 150 H 149 H (136-145) mmol/L Potassium 3.3 L (3.5-5.1) mmol/L Chloride 114 H 115 H (98-107) mmol/L BUN 24 H 21 H (7-18) mg/dL Glucose 141 H 110 H (70-100) mg/dL Vital Signs Temperature 36.8 C 07/12/18 18:28 Temperature Source Temporal Artery Scan 07/12/18 18:28 Pulse 79 07/13/18 05:01 Pulse Rhythm Regular 07/13/18 00:36 Pulse 78 07/13/18 05:01 Respiratory Rate 10 L 07/13/18 05:01 Respiratory Effort 07/13/18 00:36 Respiratory Depth Normal 07/13/18 00:36 Respiratory Pattern Normal 07/13/18 00:36 Blood Pressure 153/102 H 07/13/18 05:01 Blood Pressure Mean 115 07/13/18 05:01 Blood Pressure Position Supine 07/12/18 12:00 Pulse Oximetry 93 L 07/13/18 00:01 Respiratory End-tidal CO2 34 07/07/18 15:01 Oxygen Delivery Method Room Air 07/12/18 18:28 Oxygen Flow Rate 0 07/12/18 18:28 Pain Level 0 07/12/18 18:28 Comment 07/08/18 16:13 Intake & Output 07/12/18 07/12/18 07/13/18 11:59 23:59 11:59 Intake Total 1605 / 2775 1170 / 2775 1100 / 1100 Output Total 450 / 950 500 / 950 250 / 250 Balance 1155 / 1825 670 / 1825 850 / 850 Weight 100.7 kg 108 kg Intake: IV 1605 / 2055 450 / 2055 1100 / 1100 Oral 720 / 720 Output: Urine 450 / 950 500 / 950 250 / 250 Other: Urine Color Yellow Yellow Yellow Urine Appearance Clear Clear Clear Comment Campbell in place. campbell in place. Laboratory Results WBC 9.78 k/cumm (4.4-10.8) D 07/13/18 09:00 RBC 4.30 m/cumm (4.00-5.20) 07/13/18 09:00 Hgb 10.8 g/dL (12.0-15.5) L D 07/13/18 09:00 Hct 33.3 % (36.0-46.0) L 07/13/18 09:00 MCV 77.4 fL (80-95) L 07/13/18 09:00 MCH 25.1 pg (27.0-33.0) L 07/13/18 09:00 MCHC 32.4 g/dL (32.0-36.0) 07/13/18 09:00 RDW 17.7 % (11.7-14.6) H 07/13/18 09:00 Plt Count 285 x1000/uL (130-400) 07/13/18 09:00 MPV 10.1 fL (8.0-11.0) 07/13/18 09:00 Abs Immat Gran (auto) Cancelled 07/13/18 08:05 Immature Gran % 0.6 07/13/18 09:00 Neutrophils % 70.7 07/13/18 09:00 Band Neutrophils % Cancelled 07/13/18 08:05 Lymphocytes % 16.1 07/13/18 09:00 Atypical Lymphs % Cancelled 07/13/18 08:05 Monocytes % 10.7 07/13/18 09:00 Eosinophils % 1.7 07/13/18 09:00 Basophils % 0.2 07/13/18 09:00 Absolute Neutrophils 6.91 k/cumm (1.2-6.7) H 07/13/18 09:00 Absolute Lymphocytes 1.57 k/cumm (1.2-3.4) 07/13/18 09:00 Absolute Monocytes 1.05 k/cumm (0.11-0.7) H 07/13/18 09:00 Absolute Eosinophils 0.17 k/cumm (0.0-0.7) 07/13/18 09:00 Absolute Basophils 0.02 k/cumm (0.0-0.2) 07/13/18 09:00 Metamyelocytes Cancelled 07/13/18 08:05 Myelocytes Cancelled 07/13/18 08:05 Promyelocytes Cancelled 07/13/18 08:05 Nucleated RBCs Cancelled 07/13/18 08:05 Differential Comment Rbc morph reviewed 07/06/18 07:20 Other Cell Type Cancelled 07/13/18 08:05 RBC Morphology See below 07/06/18 07:20 Polychromasia Cancelled 07/13/18 08:05 Hypochromasia 2+ 07/06/18 07:20 Poikilocytosis Cancelled 07/13/18 08:05 Basophilic Stippling Cancelled 07/13/18 08:05 Anisocytosis Cancelled 07/13/18 08:05 Microcytosis 2+ 07/06/18 07:20 Macrocytosis Cancelled 07/13/18 08:05 Spherocytes Cancelled 07/13/18 08:05 Target Cells Cancelled 07/13/18 08:05 Tear Drop Cells Cancelled 07/13/18 08:05 Ovalocytes 2+ 07/06/18 07:20 Stomatocytes Cancelled 07/13/18 08:05 Telles-Whatley Bodies Cancelled 07/13/18 08:05 Girma Cells Cancelled 07/13/18 08:05 Acanthocytes (Spur) Cancelled 07/13/18 08:05 Schistocytes Cancelled 07/13/18 08:05 D-Dimer 1329 ng/mlFEU (<500) H 07/07/18 21:15 Sodium 149 mmol/L (136-145) H 07/13/18 08:05 Potassium 3.3 mmol/L (3.5-5.1) L 07/13/18 08:05 Chloride 115 mmol/L (98-107) H 07/13/18 08:05 Carbon Dioxide 26.6 mmol/L (21.0-32.0) 07/13/18 08:05 Anion Gap 7.4 mmol/L (3-11) 07/13/18 08:05 BUN 21 mg/dL (7-18) H 07/13/18 08:05 Creatinine 0.85 mg/dL (0.55-1.02) 07/13/18 08:05 Estimated GFR/1.73 m2 >= 60.00 (mL/min/1.73m2) 07/13/18 08:05 Glucose 110 mg/dL (70-100) H 07/13/18 08:05 Lactate 1.0 mmol/L (0.6-1.4) 07/06/18 07:20 Calcium 8.9 mg/dL (8.5-10.1) 07/13/18 08:05 Magnesium 1.8 mg/dL (1.8-2.4) 07/13/18 08:05 Total Bilirubin 0.3 mg/dL (0.2-1.0) 07/12/18 05:50 Conjugated Bilirubin 0.10 mg/dL (0.00-0.20) 07/12/18 05:50 AST 24 U/L (15-37) 07/12/18 05:50 ALT 47 U/L (12-78) 07/12/18 05:50 Alkaline Phosphatase 65 U/L (46-116) 07/12/18 05:50 Troponin I 0.02 ng/mL (0.00-0.06) 07/08/18 05:00 NT-Pro-B Natriuret Pep 1154 pg/mL (-299) H 07/07/18 21:15 Total Protein 4.6 g/dL (6.4-8.2) L 07/12/18 05:50 Albumin 2.2 g/dL (3.4-5.0) L 07/12/18 05:50 Lipase 252 U/L (73-393) 07/04/18 13:15 Calcitonin Cancelled 07/08/18 06:24 TSH 1.09 uIU/mL (0.358-3.74) 07/06/18 07:20 Urine Color Brown (Yellow) 07/08/18 16:30 Urine Clarity Cloudy 07/08/18 16:30 Urine pH 6.0 (5-8) 07/08/18 16:30 Ur Specific [place] >= 1.030 (1.005-1.025) H 07/08/18 16:30 Urine Protein 100 mg/dL (Negative) H 07/08/18 16:30 Urine Ketones 15 mg/dL (Negative) H 07/08/18 16:30 Urine Blood Large (Negative) H 07/08/18 16:30 Urine Nitrite Negative (Negative) 07/08/18 16:30 Urine Bilirubin Negative (Negative) 07/08/18 16:30 Urine Urobilinogen 0.2 EU/dL (Up TO 0.2) 07/08/18 16:30 Ur Leukocyte Esterase Negative (Negative) 07/08/18 16:30 Urine RBC >50 (0-2) H 07/08/18 16:30 Urine WBC Not Applicable 07/08/18 16:30 Ur Epithelial Cells Not Applicable 07/08/18 16:30 Urine Crystals Not Applicable 07/08/18 16:30 Urine Bacteria Not Applicable 07/08/18 16:30 Urine Casts 3-5 hyaline LPF (Negative) 07/04/18 13:15 Urine Mucus Not Applicable 07/08/18 16:30 Ur Culture Indicated? C&s done as ordered 07/08/18 16:30 Urine Glucose >=1000 mg/dL (Negative) H 07/08/18 16:30 Stool Campylobacter PCR See comments 07/06/18 12:45 Stool Salmonella PCR See comments 07/06/18 12:45 Stool Shigella PCR See comments 07/06/18 12:45 Vancomycin Trough 19.7 ug/mL (10.0-20.0) 07/13/18 08:05 Shiga Toxin (PCR) See comments 07/06/18 12:45 Path Cons Comment See comment 07/06/18 07:20
--- NOTE | 2018-07-13 11:33 | PT.INTREAT ---
Date of service: 07/13/18 Time of Service: 11:34 PT Notes Inpatient Physical Therapy Treatment Note [facility] Date: 07/13/18 PRECAUTIONS: Fall and standard SUBJECTIVE: Pt reports that she is tired today. OBJECTIVE: Pt's bp was 157/102 and HR in the low 90's so we did not get pt OOB today due to her BP getting more elevated when OOB and in chair yesterday. THEREX: Pt completed UE and LE strengthening as per flow sheet. PT required mod vc's and also assist with almost all of her ther ex today. Pt was noticeably more fatigued today and required significant more assist with her ther ex today. ASSESSMENT: Pt was experiencing more difficulty today with her session. Pt reports that nothing is wrong but required more assist today. PLAN: Cont as per PT POC. TREATMENT CODE/TIME: 10:45-11:05 (20)
--- NOTE | 2018-07-13 13:30 | CMPROGNOTE_ITS ---
Care Management Progress Note S/O: Christie appeared very tired today an there were long pauses between her answers when asked any question. Family was not present during the visit. At time of admission Christie's sisters and brother (Tiny, Netta and Cedric) shared concerns about her underlying diagnosis of schizophrenia that had become out of control when she was sick in the past but at baseline she is able to function in the community with assistance when medication compliant. The family received education around guardianship and competency at that time and were encouraged to focus on medical clearance prior to discussing disposition options other than transfer or home with increased supports. Based on results from her recent diagnostic exams she may need to consider PEG tube placement for nutrition as she is not able to manage swallowing food without difficulty. I did begin the conversation with Christie this morning but am not sure how well she understood the details. She did say she would consider it but we will need to schedule a family meeting once the physician has had the opportunity to address the need with her as well. Palliative Consult will also be considered. 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 Anticipate referral for new services for Nursing, PT/OT. This plan may not be realistic if she does not regain her baseline functionality. Family will transport when medically cleared for discharge.
[2018-07-13] MEDS: DEXTROSE 5%-WATER 1,000 ML 125 ML IV ×2 (13:49→22:44)
[2018-07-13 14:49] LABS: BUN 18 mg/dL (7-18); CREATININE 0.83 mg/dL (0.55-1.02); Calcium 8.7 mg/dL (8.5-10.1); Chloride 114 mmol/L (98-107); Glucose 120 mg/dL (70-100); Potassium 3.1 mmol/L (3.5-5.1); Sodium 150 mmol/L (136-145)
[2018-07-13] MEDS: POTASSIUM CHLORIDE 20 MEQ/100 ML BAG 50 MEQ IVPB ×2 (17:48→20:28)
--- NOTE | 2018-07-13 18:05 | W.PM.PROGNOT ---
Date of Service Date of service: 07/13/18 Time of Service: 07:30 Assessment and Plan (1) Weakness on right side of face: Current visit: Yes Status: Acute I am not convinced that this is truly there. CT head negative. Will consult with neurology in am. Patient already had an MRI on this admission. ?Could this be symptomatic hypernatremia or a complex partial seizure. (2) Dysphagia: Current visit: Yes Status: Acute Made NPO today due to the questionable R facial droop until reevaluation by speech. She is s/p EGD 05/12/19 with findings of a Schatzky's ring, though it was felt to be nonobstructing. [facility] (Dr Bryson) feels the patient would warrant an outpatient monometry. This study is not done on inpatient basis. Meanwhile, we are recommended to monitor her PO intake (if/when she passes swallowing evaluation) and how she does with the modified diet. If she does not pass, we are recommended to place a PEG tube. No transfer recommended at this time. *h/o distal esophageal spasms and possible stricture. At the time of the EGD in 2007, there was also noted Unprotected aspiration as well as GERD with evidence of esophagitis. An ensuing Endoscopy showed a benign appearing stricture, dilated. (3) Esophageal dysmotility: Current visit: Yes Status: Acute As above (4) Hypotension: Current visit: Yes Status: Acute Initially, hypotension to the point of shock requiring pressors with evidence of end-organ damage with KJ and elevation in Lactate - unknown etiology. ?Dehydration, ?sepsis. Does not appear to have been adrenal insufficiency, but we are weaning steroids. No clear infectious source. Echo without clear cardiogenic explanation. Aspiration pneumonia/recurrent aspiration events now seem like the most likely scenario. Continue Vancomycin and Pip-Tazo day #6. BP's are maintaining. (5) Bradycardia: Current visit: No Status: Acute Resolved, was seen in setting of hypotension. Avoid jovan agents. ? Tachy/Justin Syndrome. Cardiology is aware if patient becomes unstable. No longer requiring pressors/chronotropes. (6) Altered mental status: Current visit: Yes Status: Acute episodes of confusion, 'staring', near unresponsive state while awake, and a potential post-ictal like state - cannot rule out seizure activity as potential reason, though EEG and MRI were negative. New R-sided facial droop could be part of the same picture. Continue keppra. Will discuss with neurology. (7) KJ (acute kidney injury): Current visit: Yes Status: Resolved Likely in setting of hypotension, poor perfusion, with concurrent HCTZ and YAMEL-I use. Both meds continue to be on hold. Continue IVF. (8) Schizophrenia: Current visit: No Status: Chronic Behaviors stable. Continue home meds. (9) GERD (gastroesophageal reflux disease): Current visit: Yes Status: Chronic Continue PPI 40 mg IV BID (10) Hypomagnesemia: Current visit: Yes Status: Resolved Monitor (11) Hypernatremia: Current visit: Yes Status: Acute Likely due to dehydration. Continue D5 fluids. (12) Hypokalemia: Current visit: Yes Status: Resolved Continue to monitor (13) Discharge planning issues: Current visit: Yes Status: Acute Full code. In med-surg tele status May require a PEG tube. Palliative care consult placed (14) DVT prophylaxis: Current visit: Yes Status: Acute SC Lovenox. Subjective Interval history since last seen: The patient states her mouth feels funny because it's dry. Per nursing, they think they see a R facial droop, which is why I was called to bedside this morning. It is unclear when this truly started. The patient denies a headache, dizziness, chest pain, shortness of breath, nausea, vomiting, abdominal pain. She denies numbness/tingling. Exam Narrative Exam Narrative: General: Middle Aged female, somewhat slow to respond to questions, seems even more slow to do so today Neurological: A&ox2, ?slight R facial droop (she is able to elevate the corner of the mouth when smiling); preserved strength in BUE's and BLE's HEENT: EOMI, dry MM Heart: RRR, no m/r/g Lungs: Clear/diminished breath sounds B GI: abdomen soft, nontender, nondistended Extremities: +1 BLE edema, no clubbing or cyanosis Objective Objective Clinical Data: Abnormal lab results 07/13/18 07/13/18 07/13/18 Range/Units 08:05 09:00 14:08 Hgb 10.8 L D (12.0-15.5) g/dL Hct 33.3 L (36.0-46.0) % MCV 77.4 L (80-95) fL MCH 25.1 L (27.0-33.0) pg RDW 17.7 H (11.7-14.6) % Absolute Neutrophils 6.91 H (1.2-6.7) k/cumm Absolute Monocytes 1.05 H (0.11-0.7) k/cumm Sodium 149 H 150 H (136-145) mmol/L Potassium 3.3 L 3.1 L (3.5-5.1) mmol/L Chloride 115 H 114 H (98-107) mmol/L BUN 21 H (7-18) mg/dL Glucose 110 H 120 H (70-100) mg/dL Vital Signs Temperature 36.8 C 07/12/18 18:28 Temperature Source Temporal Artery Scan 07/12/18 18:28 Pulse 83 07/13/18 16:18 Pulse Rhythm Regular 07/13/18 16:19 Pulse 86 07/13/18 16:18 Respiratory Rate 17 07/13/18 16:18 Respiratory Effort 07/13/18 16:19 Respiratory Depth Normal 07/13/18 10:00 Respiratory Pattern Normal 07/13/18 10:00 Blood Pressure 167/109 H 07/13/18 16:18 Blood Pressure Mean 124 07/13/18 16:18 Blood Pressure Position Supine 07/12/18 12:00 Pulse Oximetry 96 07/13/18 15:00 Respiratory End-tidal CO2 34 07/07/18 15:01 Oxygen Delivery Method Room Air 07/12/18 18:28 Oxygen Flow Rate 0 07/12/18 18:28 Pain Level 0 07/12/18 18:28 Comment 07/08/18 16:13 Intake & Output 07/12/18 07/13/18 07/13/18 23:59 11:59 23:59 Intake Total 1170 / 2775 1100 / 1200 100 / 1200 Output Total 500 / 950 250 / 1550 1300 / 1550 Balance 670 / 1825 850 / -350 -1200 / -350 Weight 108 kg Intake: IV 450 / 2055 1100 / 1200 100 / 1200 Oral 720 / 720 Output: Urine 500 / 950 250 / 1550 1300 / 1550 Other: Urine Color Yellow Yellow Yellow Urine Appearance Clear Clear Clear Mucous Threads Comment campbell in place. Stool Occult Blood Negative Stool Size Large Stool Characteristics Brown Laboratory Results WBC 9.78 k/cumm (4.4-10.8) D 07/13/18 09:00 RBC 4.30 m/cumm (4.00-5.20) 07/13/18 09:00 Hgb 10.8 g/dL (12.0-15.5) L D 07/13/18 09:00 Hct 33.3 % (36.0-46.0) L 07/13/18 09:00 MCV 77.4 fL (80-95) L 07/13/18 09:00 MCH 25.1 pg (27.0-33.0) L 07/13/18 09:00 MCHC 32.4 g/dL (32.0-36.0) 07/13/18 09:00 RDW 17.7 % (11.7-14.6) H 07/13/18 09:00 Plt Count 285 x1000/uL (130-400) 07/13/18 09:00 MPV 10.1 fL (8.0-11.0) 07/13/18 09:00 Abs Immat Gran (auto) Cancelled 07/13/18 08:05 Immature Gran % 0.6 07/13/18 09:00 Neutrophils % 70.7 07/13/18 09:00 Band Neutrophils % Cancelled 07/13/18 08:05 Lymphocytes % 16.1 07/13/18 09:00 Atypical Lymphs % Cancelled 07/13/18 08:05 Monocytes % 10.7 07/13/18 09:00 Eosinophils % 1.7 07/13/18 09:00 Basophils % 0.2 07/13/18 09:00 Absolute Neutrophils 6.91 k/cumm (1.2-6.7) H 07/13/18 09:00 Absolute Lymphocytes 1.57 k/cumm (1.2-3.4) 07/13/18 09:00 Absolute Monocytes 1.05 k/cumm (0.11-0.7) H 07/13/18 09:00 Absolute Eosinophils 0.17 k/cumm (0.0-0.7) 07/13/18 09:00 Absolute Basophils 0.02 k/cumm (0.0-0.2) 07/13/18 09:00 Metamyelocytes Cancelled 07/13/18 08:05 Myelocytes Cancelled 07/13/18 08:05 Promyelocytes Cancelled 07/13/18 08:05 Nucleated RBCs Cancelled 07/13/18 08:05 Differential Comment Rbc morph reviewed 07/06/18 07:20 Other Cell Type Cancelled 07/13/18 08:05 RBC Morphology See below 07/06/18 07:20 Polychromasia Cancelled 07/13/18 08:05 Hypochromasia 2+ 07/06/18 07:20 Poikilocytosis Cancelled 07/13/18 08:05 Basophilic Stippling Cancelled 07/13/18 08:05 Anisocytosis Cancelled 07/13/18 08:05 Microcytosis 2+ 07/06/18 07:20 Macrocytosis Cancelled 07/13/18 08:05 Spherocytes Cancelled 07/13/18 08:05 Target Cells Cancelled 07/13/18 08:05 Tear Drop Cells Cancelled 07/13/18 08:05 Ovalocytes 2+ 07/06/18 07:20 Stomatocytes Cancelled 07/13/18 08:05 [place] Bodies Cancelled 07/13/18 08:05 [place] Cells Cancelled 07/13/18 08:05 Acanthocytes (Spur) Cancelled 07/13/18 08:05 Schistocytes Cancelled 07/13/18 08:05 D-Dimer 1329 ng/mlFEU (<500) H 07/07/18 21:15 Sodium 150 mmol/L (136-145) H 07/13/18 14:08 Potassium 3.1 mmol/L (3.5-5.1) L 07/13/18 14:08 Chloride 114 mmol/L (98-107) H 07/13/18 14:08 Carbon Dioxide 27.0 mmol/L (21.0-32.0) 07/13/18 14:08 Anion Gap 9.0 mmol/L (3-11) 07/13/18 14:08 BUN 18 mg/dL (7-18) 07/13/18 14:08 Creatinine 0.83 mg/dL (0.55-1.02) 07/13/18 14:08 Estimated GFR/1.73 m2 >= 60.00 (mL/min/1.73m2) 07/13/18 14:08 Glucose 120 mg/dL (70-100) H 07/13/18 14:08 Lactate 1.0 mmol/L (0.6-1.4) 07/06/18 07:20 Calcium 8.7 mg/dL (8.5-10.1) 07/13/18 14:08 Magnesium 1.8 mg/dL (1.8-2.4) 07/13/18 08:05 Total Bilirubin 0.3 mg/dL (0.2-1.0) 07/12/18 05:50 Conjugated Bilirubin 0.10 mg/dL (0.00-0.20) 07/12/18 05:50 AST 24 U/L (15-37) 07/12/18 05:50 ALT 47 U/L (12-78) 07/12/18 05:50 Alkaline Phosphatase 65 U/L (46-116) 07/12/18 05:50 Troponin I 0.02 ng/mL (0.00-0.06) 07/08/18 05:00 NT-Pro-B Natriuret Pep 1154 pg/mL (-299) H 07/07/18 21:15 Total Protein 4.6 g/dL (6.4-8.2) L 07/12/18 05:50 Albumin 2.2 g/dL (3.4-5.0) L 07/12/18 05:50 Lipase 252 U/L (73-393) 07/04/18 13:15 Calcitonin Cancelled 07/08/18 06:24 TSH 1.09 uIU/mL (0.358-3.74) 07/06/18 07:20 Urine Color Brown (Yellow) 07/08/18 16:30 Urine Clarity Cloudy 07/08/18 16:30 Urine pH 6.0 (5-8) 07/08/18 16:30 Ur Specific [place] >= 1.030 (1.005-1.025) H 07/08/18 16:30 Urine Protein 100 mg/dL (Negative) H 07/08/18 16:30 Urine Ketones 15 mg/dL (Negative) H 07/08/18 16:30 Urine Blood Large (Negative) H 07/08/18 16:30 Urine Nitrite Negative (Negative) 07/08/18 16:30 Urine Bilirubin Negative (Negative) 07/08/18 16:30 Urine Urobilinogen 0.2 EU/dL (Up TO 0.2) 07/08/18 16:30 Ur Leukocyte Esterase Negative (Negative) 07/08/18 16:30 Urine RBC >50 (0-2) H 07/08/18 16:30 Urine WBC Not Applicable 07/08/18 16:30 Ur Epithelial Cells Not Applicable 07/08/18 16:30 Urine Crystals Not Applicable 07/08/18 16:30 Urine Bacteria Not Applicable 07/08/18 16:30 Urine Casts 3-5 hyaline LPF (Negative) 07/04/18 13:15 Urine Mucus Not Applicable 07/08/18 16:30 Ur Culture Indicated? C&s done as ordered 07/08/18 16:30 Urine Glucose >=1000 mg/dL (Negative) H 07/08/18 16:30 Stool Campylobacter PCR See comments 07/06/18 12:45 Stool Salmonella PCR See comments 07/06/18 12:45 Stool Shigella PCR See comments 07/06/18 12:45 Vancomycin Trough 19.7 ug/mL (10.0-20.0) 07/13/18 08:05 Shiga Toxin (PCR) See comments 07/06/18 12:45 Path Cons Comment See comment 07/06/18 07:20 CT head: No acute intracranial hemorrhage.
[2018-07-13] MEDS: Methimazole 5 MG TAB PO (20:56)
[2018-07-13] MEDS: OLANZapine 5 MG TAB 10 MG PO (20:57)
[2018-07-13] MEDS: guaiFENesin/D-METHORPHAN HB 5 ML CUP PO (20:57)
[2018-07-13] MEDS: VANCOMYCIN 1,000 MG in Normal Saline 250 ML 166.667 MG IVPB (22:50)
[2018-07-14] VITALS (54 sets, daily range): BP systolic 84–169; BP diastolic 53–115; PULSE 58–103; RESP 1–26; TEMP 36.2–36.5; O2SAT 92–100
[2018-07-14] MEDS: Levalbuterol 1.25 MG/3 ML UPD VIAL UPD ×6 (00:52→20:54)
[2018-07-14] MEDS: guaiFENesin/D-METHORPHAN HB 5 ML CUP PO (01:07)
[2018-07-14] MEDS: Normal Saline Flush 10 ML SYR IVP ×4 (05:40→20:53)
--- NOTE | 2018-07-14 05:50 | PDOC.CMPRO ---
Care Management Progress Note S/O: Christie remains somewhat confused at baseline causing concern for capacity. Christie was reviewed during interdisciplinary rounds meeting; next steps dependent on Speech and Neuro consults, per MD. If Christie is approved for modified diet she may return home with new VNA supports, if not, she may require PEG Tube which in turn, will initiate family conversation with her three siblings; per MD. A: 63 yo disabled female admitted for hypotension now may be in need of a PEG Tube and referral for Palliative Care P: Plan undetermined at this time-monitoring to determine Christie's baseline functionality. Family will transport when medically cleared for discharge.
[2018-07-14 07:24] LABS: Abs Immature Grans 0.03 k/cumm (0.0-0.09); Absolute Basophil Count 0.02 k/cumm (0.0-0.2); Absolute Eosinophil Count 0.34 k/cumm (0.0-0.7); Absolute Monocyte Count 0.98 k/cumm (0.11-0.7); Absolute Neutrophil Count 5.24 k/cumm (1.2-6.7); Basophils % 0.2; Eosinophils % 3.8; HCT 30.5 % (36.0-46.0); HGB 9.6 g/dL (12.0-15.5); Immature Grans % 0.3; Lymphocytes % 25.8; Mean Corp. HGB Concentration 31.5 g/dL (32.0-36.0); Mean Corpuscular Hemoglobin 24.7 pg (27.0-33.0); Mean Corpuscular Volume 78.6 fL (80-95); Neutrophils % 58.9; Platelet Count 242 x1000/uL (130-400); RBC 3.88 m/cumm (4.00-5.20); RBC Distribution Width 17.7 % (11.7-14.6); White Blood Cell Count 8.91 k/cumm (4.4-10.8)
[2018-07-14 07:54] LABS: Magnesium 1.7 mg/dL (1.8-2.4)
[2018-07-14 08:21] LABS: Anion Gap 7.1 mmol/L (3-11); BUN 17 mg/dL (7-18); CO2 26.9 mmol/L (21.0-32.0); CREATININE 0.98 mg/dL (0.55-1.02); Calcium 8.3 mg/dL (8.5-10.1); Chloride 111 mmol/L (98-107); Estimated GFR 57.32 (mL/min/1.73m2); Glucose 106 mg/dL (70-100); Potassium 3.3 mmol/L (3.5-5.1); Sodium 145 mmol/L (136-145)
[2018-07-14] MEDS: DEXTROSE 5%-WATER 1,000 ML 125 ML IV (08:56)
[2018-07-14] MEDS: PIPERACILLIN/TAZO 4.5 GM in Normal Saline 100 ML IVPB ×3 (08:59→17:42)
[2018-07-14] MEDS: Enoxaparin 40 MG/0.4 ML SYR SC (09:12)
[2018-07-14] MEDS: Hydrocortisone SOD SUC. 100 MG VIAL 25 MG IVP (09:13)
[2018-07-14] MEDS: Bumetanide 1 MG/4 ML VIAL 0.5 MG IVP (09:18)
[2018-07-14] MEDS: Pantoprazole 40 MG VIAL IVP ×2 (09:21→20:53)
[2018-07-14 10:18] LABS: Procalcitonin, S <0.10 ng/mL (<or=1.5)
[2018-07-14] MEDS: MAGNESIUM SULFATE 2 GM/50 ML BAG IVPB (10:43)
[2018-07-14] MEDS: Normal Saline 500 ML 25 ML IV (10:44)
--- NOTE | 2018-07-14 12:27 | W.PM.PROGNOT ---
Date of Service Date of service: 07/14/18 Time of Service: 12:27 Assessment and Plan (1) Altered mental status: Current visit: Yes Status: Acute (2) Spell of behavior change: Current visit: No Status: Acute (3) Dysphagia: Current visit: Yes Status: Acute Ms. Gardiner is a 63-year-old, left-handed woman with a past medical history of cognitive impairment who was admitted with hypotension, acute kidney injury, and pneumonia, initially noted to have 2-3 episodes of behavioral arrest and staring, followed by several minutes of confusion and then return to baseline concerning for encephalopathy/delirium in the setting of acute illness versus new onset seizures (she lives alone). Workup including a brain MRI and EEG were both unremarkable and she was started on Keppra 500mg BID as a precautionary as it was i she would be returning home alone. She has not had any further episodes of behavioral arrest but over the last 24 hours has developed a more persistent altered mental status. This has been associated with progressive and severe dysphagia over the last 2-3 days. I cannot find any focal neurological deficits on exam. I suspect that her clinical decline is due to a toxic/metabolic etiology which I discussed with the primary care team. They will work this up further. Otherwise, she was also noted to have potential right face weakness. I do not see any documentation to suggest that she did have true weakness. She does have a right facial asymmetry which may have caused the questionable finding. Without any hard evidence of the face weakness actually happening, I would not recommend any further workup at this time. Otherwise, she was found to have bilateral Babinski reflexes on exam. In discussion with her sister, there were no concerns for myelopathy/progressive gait imbalance prior to her hospitalization. Thus, I suspect this is her baseline finding secondary to her underlying neurological disease. She should follow-up in the neurology in the next 1-2 months. Please call with any questions or concerns. DISCLAIMER: This note was created using [employer] voice recognition software. (4) Babinski response: Current visit: No Status: Acute Subjective Interval history since last seen: I was asked to see Ms. Gardiner again after she was witnessed to have a questionable right facial droop yesterday, 07/13/18. Nursing staff had thought that there was a weakness, and the hospitalist was called immediately who evaluated the patient but did not note any significant facial weakness. She does have a baseline asymmetry. She had an acute CT head which is able to review and was unremarkable. Otherwise, since she was last seen, she has been dealing with bradycardia, hypernatremia, and more recently altered mental status with new dysphagia. She has not had any further spells with behavioral arrest or automatisms to suggest further seizure activity. She has been on Keppra 500 mg twice daily. Exam Narrative Exam Narrative: Physical Exam: Constitutional: Patient of apparent stated age, well nourished, well developed, no acute distress Extrem: significant edema in all extremities, worse in the bilateral LE Neuro: MS/Language/Speech: Alert, oriented to self only, language slowed overall with difficulty following 2 step commands; able to cross the midline; mild dysarthria CN: EOMI, visual [place] full, no facial asymmetry, hearing intact to whisper Motor: Normal bulk and tone. FMM intact, no pronator drift. Diffuse mild symmetric weakness throughout. Sensation: Intact to light touch throughout Reflexes: +Babinski bilaterally Coordination: Finger to nose performed without dysmetria Gait: deferred Objective Objective Clinical Data: Abnormal lab results 07/13/18 07/14/18 07/14/18 Range/Units 14:08 06:25 06:25 RBC 3.88 L (4.00-5.20) m/cumm Hgb 9.6 L (12.0-15.5) g/dL Hct 30.5 L (36.0-46.0) % MCV 78.6 L (80-95) fL MCH 24.7 L (27.0-33.0) pg MCHC 31.5 L (32.0-36.0) g/dL RDW 17.7 H (11.7-14.6) % Absolute Monocytes 0.98 H (0.11-0.7) k/cumm Sodium 150 H (136-145) mmol/L Potassium 3.1 L (3.5-5.1) mmol/L Chloride 114 H (98-107) mmol/L Glucose 120 H (70-100) mg/dL Calcium (8.5-10.1) mg/dL Magnesium 1.7 L (1.8-2.4) mg/dL 07/14/18 Range/Units 06:25 RBC (4.00-5.20) m/cumm Hgb (12.0-15.5) g/dL Hct (36.0-46.0) % MCV (80-95) fL MCH (27.0-33.0) pg MCHC (32.0-36.0) g/dL RDW (11.7-14.6) % Absolute Monocytes (0.11-0.7) k/cumm Sodium (136-145) mmol/L Potassium 3.3 L (3.5-5.1) mmol/L Chloride 111 H (98-107) mmol/L Glucose 106 H (70-100) mg/dL Calcium 8.3 L (8.5-10.1) mg/dL Magnesium (1.8-2.4) mg/dL Vital Signs Temperature 37.6 C H 07/13/18 18:30 Temperature Source Temporal Artery Scan 07/13/18 18:30 Pulse 72 07/14/18 06:15 Pulse Rhythm Regular 07/14/18 00:05 Pulse 76 07/14/18 03:01 Respiratory Rate 20 07/14/18 06:15 Respiratory Effort 07/14/18 00:05 Respiratory Depth Normal 07/13/18 10:00 Respiratory Pattern Normal 07/13/18 10:00 Blood Pressure 84/68 L 07/14/18 03:01 Blood Pressure Mean 72 07/14/18 03:01 Blood Pressure Position Supine 07/12/18 12:00 Pulse Oximetry 95 07/14/18 06:15 Respiratory End-tidal CO2 34 07/07/18 15:01 Oxygen Delivery Method Room Air 07/14/18 05:45 Oxygen Flow Rate 0 07/14/18 05:45 Pain Level 0 07/12/18 18:28 Comment 07/08/18 16:13 Intake & Output 07/13/18 07/14/18 07/14/18 23:59 11:59 23:59 Intake Total 5400 / 6750 3350 / 3350 Output Total 2600 / 2850 275 / 275 Balance 2800 / 3900 3075 / 3075 Weight 105.5 kg Intake: IV 5400 / 6750 3350 / 3350 Oral 0 / 0 Output: Urine 2600 / 2850 275 / 275 Other: Urine Color Yellow Yellow Urine Appearance Clear Cloudy Mucous Threads Mucous Threads Stool Occult Blood Negative Negative Stool Size Large Large Stool Characteristics Soft Soft Liquid Liquid Mucoid Mucoid Brown Brown Voiding Methods Indwelling Catheter Laboratory Results WBC 8.91 k/cumm (4.4-10.8) 07/14/18 06:25 RBC 3.88 m/cumm (4.00-5.20) L 07/14/18 06:25 Hgb 9.6 g/dL (12.0-15.5) L 07/14/18 06:25 Hct 30.5 % (36.0-46.0) L 07/14/18 06:25 MCV 78.6 fL (80-95) L 07/14/18 06:25 MCH 24.7 pg (27.0-33.0) L 07/14/18 06:25 MCHC 31.5 g/dL (32.0-36.0) L 07/14/18 06:25 RDW 17.7 % (11.7-14.6) H 07/14/18 06:25 Plt Count 242 x1000/uL (130-400) 07/14/18 06:25 MPV 11.0 fL (8.0-11.0) 07/14/18 06:25 Abs Immat Gran (auto) Cancelled 07/13/18 08:05 Immature Gran % 0.3 07/14/18 06:25 Neutrophils % 58.9 07/14/18 06:25 Band Neutrophils % Cancelled 07/13/18 08:05 Lymphocytes % 25.8 07/14/18 06:25 Atypical Lymphs % Cancelled 07/13/18 08:05 Monocytes % 11.0 07/14/18 06:25 Eosinophils % 3.8 07/14/18 06:25 Basophils % 0.2 07/14/18 06:25 Absolute Neutrophils 5.24 k/cumm (1.2-6.7) 07/14/18 06:25 Absolute Lymphocytes 2.30 k/cumm (1.2-3.4) 07/14/18 06:25 Absolute Monocytes 0.98 k/cumm (0.11-0.7) H 07/14/18 06:25 Absolute Eosinophils 0.34 k/cumm (0.0-0.7) 07/14/18 06:25 Absolute Basophils 0.02 k/cumm (0.0-0.2) 07/14/18 06:25 Metamyelocytes Cancelled 07/13/18 08:05 Myelocytes Cancelled 07/13/18 08:05 Promyelocytes Cancelled 07/13/18 08:05 Nucleated RBCs Cancelled 07/13/18 08:05 Differential Comment Rbc morph reviewed 07/06/18 07:20 Other Cell Type Cancelled 07/13/18 08:05 RBC Morphology See below 07/06/18 07:20 Polychromasia Cancelled 07/13/18 08:05 Hypochromasia 2+ 07/06/18 07:20 Poikilocytosis Cancelled 07/13/18 08:05 Basophilic Stippling Cancelled 07/13/18 08:05 Anisocytosis Cancelled 07/13/18 08:05 Microcytosis 2+ 07/06/18 07:20 Macrocytosis Cancelled 07/13/18 08:05 Spherocytes Cancelled 07/13/18 08:05 Target Cells Cancelled 07/13/18 08:05 Tear Drop Cells Cancelled 07/13/18 08:05 Ovalocytes 2+ 07/06/18 07:20 Stomatocytes Cancelled 07/13/18 08:05 [place] Bodies Cancelled 07/13/18 08:05 [place] Cells Cancelled 07/13/18 08:05 Acanthocytes (Spur) Cancelled 07/13/18 08:05 Schistocytes Cancelled 07/13/18 08:05 D-Dimer 1329 ng/mlFEU (<500) H 07/07/18 21:15 Sodium 145 mmol/L (136-145) 07/14/18 06:25 Potassium 3.3 mmol/L (3.5-5.1) L 07/14/18 06:25 Chloride 111 mmol/L (98-107) H 07/14/18 06:25 Carbon Dioxide 26.9 mmol/L (21.0-32.0) 07/14/18 06:25 Anion Gap 7.1 mmol/L (3-11) 07/14/18 06:25 BUN 17 mg/dL (7-18) 07/14/18 06:25 Creatinine 0.98 mg/dL (0.55-1.02) 07/14/18 06:25 Estimated GFR/1.73 m2 57.32 (mL/min/1.73m2) 07/14/18 06:25 Glucose 106 mg/dL (70-100) H 07/14/18 06:25 Lactate 1.0 mmol/L (0.6-1.4) 07/06/18 07:20 Calcium 8.3 mg/dL (8.5-10.1) L 07/14/18 06:25 Magnesium 1.7 mg/dL (1.8-2.4) L 07/14/18 06:25 Total Bilirubin 0.3 mg/dL (0.2-1.0) 07/12/18 05:50 Conjugated Bilirubin 0.10 mg/dL (0.00-0.20) 07/12/18 05:50 AST 24 U/L (15-37) 07/12/18 05:50 ALT 47 U/L (12-78) 07/12/18 05:50 Alkaline Phosphatase 65 U/L (46-116) 07/12/18 05:50 Troponin I 0.02 ng/mL (0.00-0.06) 07/08/18 05:00 NT-Pro-B Natriuret Pep 1154 pg/mL (-299) H 07/07/18 21:15 Total Protein 4.6 g/dL (6.4-8.2) L 07/12/18 05:50 Albumin 2.2 g/dL (3.4-5.0) L 07/12/18 05:50 Lipase 252 U/L (73-393) 07/04/18 13:15 Procalcitonin <0.10 ng/mL (<or=1.5) 07/08/18 06:24 Calcitonin Cancelled 07/08/18 06:24 TSH 1.09 uIU/mL (0.358-3.74) 07/06/18 07:20 Urine Color Brown (Yellow) 07/08/18 16:30 Urine Clarity Cloudy 07/08/18 16:30 Urine pH 6.0 (5-8) 07/08/18 16:30 Ur Specific [place] >= 1.030 (1.005-1.025) H 07/08/18 16:30 Urine Protein 100 mg/dL (Negative) H 07/08/18 16:30 Urine Ketones 15 mg/dL (Negative) H 07/08/18 16:30 Urine Blood Large (Negative) H 07/08/18 16:30 Urine Nitrite Negative (Negative) 07/08/18 16:30 Urine Bilirubin Negative (Negative) 07/08/18 16:30 Urine Urobilinogen 0.2 EU/dL (Up TO 0.2) 07/08/18 16:30 Ur Leukocyte Esterase Negative (Negative) 07/08/18 16:30 Urine RBC >50 (0-2) H 07/08/18 16:30 Urine WBC Not Applicable 07/08/18 16:30 Ur Epithelial Cells Not Applicable 07/08/18 16:30 Urine Crystals Not Applicable 07/08/18 16:30 Urine Bacteria Not Applicable 07/08/18 16:30 Urine Casts 3-5 hyaline LPF (Negative) 07/04/18 13:15 Urine Mucus Not Applicable 07/08/18 16:30 Ur Culture Indicated? C&s done as ordered 07/08/18 16:30 Urine Glucose >=1000 mg/dL (Negative) H 07/08/18 16:30 Stool Campylobacter PCR See comments 07/06/18 12:45 Stool Salmonella PCR See comments 07/06/18 12:45 Stool Shigella PCR See comments 07/06/18 12:45 Vancomycin Trough 19.7 ug/mL (10.0-20.0) 07/13/18 08:05 Shiga Toxin (PCR) See comments 07/06/18 12:45 Path Cons Comment See comment 07/06/18 07:20 Miscellaneous Test Cancelled 07/08/18 06:24
--- NOTE | 2018-07-14 12:29 | DI.RAD_ITS ---
SYMPTOMS/DIAGNOSIS: HYPOTENSION, F/U PNEUMONIA CHEST X-RAY, PORTABLE AP VIEW: Comparisons are 07/08/18 and 07/11/18. There is poor inspiration. Cardiac silhouette is stable in size. There is a left PICC line. The tip of the catheter is seen in the superior vena cava. There is increased opacity in the left lung base. This may represent atelectasis or pneumonia. The right lung appears clear. No gross effusions or pneumothoraces are identified. The bones appear intact. IMPRESSION: Increased lung markings in the left lung base. This may represent atelectasis or pneumonia.
--- NOTE | 2018-07-14 12:31 | W.SPEECHEVAL ---
Date of service: 07/14/18 Time of Service: 11:30 Speech Therapy Evaluation Note: REFERRING PROVIDER: Dr. Barrera BACKGROUND This is a 63 year old left-handed female who, on 07/13/18, was thought to show a right facial droop. Consequently, a new swallow evaluation was requested. An initial swallow eval was done on 07/07/18 which showed a mild-moderate oral-prep dysphagia secondary to significant partial edentulousness. PMH: schizophrenia, developmental delay, HTN, GERD. The pt had a Ba+ swallow x-ray on 07/11/18 which showed esophageal dysmotility and no aspiration/penetration. On 07/12/18 an EGD was done which revealed a non-obstructing Schatzky's ring. A phone consult with [facility] [place] resulted in a recommendation of out-patient manometry. OBJECTIVE Nursing reports: - O2 sat: 95% on RA - Patient (pt) is currently NPO. - Pt had a coughing episode earlier this morning. It was felt that she had difficulty clearing pharyngeal secretions. The pt is reclined in bed. She makes a delayed direct eye contact with me only after I offer a verbal greeting. Her verbal responses are extremely delayed and often incomplete. Occasionally they are absent. She is only able to state her first name despite verbal cueing. She is oriented to place but not time or event. She is able to follow basic 1-step directions inconsistently. One of the pt's sisters is in the room with her. Oral Sensorimotor Exam The pt has her own dentition but has only 3 remaining teeth on the bottom ridge (anterior teeth). Oral sensation for buccal and labial areas is within normal limits bilaterally (WNL-B) but lingual sensation is unable to be assessed due to the pt's decreased ability to follow directions and poor oral access. Motorically, the smile is symmetrical and no facial droop is noted. Mild right lingual deviation with upward tongue-tip curl is seen in a setting of absent excursion. Lingual lateralization is WNL-B but lingual rapid alternating movements are severely decreased. Mandibular lateralization is mildly-moderately decreased. Velopharyngeal elevation is moderately decreased B. Volitional cough is produced as a weak throat-clear. A volitional throat-clear is severely decreased. Speech intelligibility to this mildly familiar listener in a setting of mild background noise is 100% despite mild vocal hoarseness and moderately decreased vocal intensity. It should be noted that some of the tasks in this exam are unable to be done due to the pt's difficulty with following directions. Swallowing: - Honey-thick liquid: Good bolus control but delayed posterior oral transit (POT). Decreased laryngeal elevation on palpation. No suraj signs/symptoms (s/s) of aspiration/penetration (A/P). Oral clearance: 100%. No oral escape. - [place]-thick liquid: Results the same as for Honey-thick liquid but after the swallow, the pt spontaneously puts her right index and middle fingers to her throat at the cricopharyngeal/UES level. She is unable to verbally express/describe any sensation. P. o. intake is halted at this point due to what is felt to be a high risk of both silent and audible aspiration. INTERPRETATION The pt's functional status is significantly diminished from that seen on 07/07/18. She shows a moderate oral and severe pharyngoesophageal dysphagia in a setting of increased generalized weakness and mental status change. She is felt to be at high risk of aspiration with any p. o. intake. RECOMMENDATIONS 1. Continue NPO status. 2. Provide oral moisturizing with use of a cold wet metal teaspoon in order to avoid aspiration. 3. Consider non-oral means of nutrition/hydration/medication. 4. ST is not indicated at this time. The case is discussed with today's hospitalist, Dr. Barrera, and the neurologist, Dr. Bennett. The recommendations and rationale for same are also discussed with the pt's sister. Both Dr. Barrera and the pt's sister are in agreement with the recommendations. Thank you for referring this pt.
[2018-07-14] MEDS: Nystatin POWDER 60 GM JAR TP ×2 (12:34→20:48)
--- NOTE | 2018-07-14 13:06 | EVALE_ITS ---
Date of service: 07/14/18 Time of Service: 11:30 Speech Therapy Evaluation Note: REFERRING PROVIDER: Dr. Barrera BACKGROUND This is a 63 year old left-handed female who, on 07/13/18, was thought to show a right facial droop. Consequently, a new swallow evaluation was requested. An initial swallow eval was done on 07/07/18 which showed a mild- moderate oral-prep dysphagia secondary to significant partial edentulousness. PMH: schizophrenia, developmental delay, HTN, GERD. The pt had a Ba+ swallow x- ray on 07/11/18 which showed esophageal dysmotility and no aspiration/penetration. On 07/12/18 an EGD was done which revealed a non- obstructing Schatzky's ring. A phone consult with [facility] [place] resulted in a recommendation of out-patient manometry. OBJECTIVE Nursing reports: - O2 sat: 95% on RA - Patient (pt) is currently NPO. - Pt had a coughing episode earlier this morning. It was felt that she had difficulty clearing pharyngeal secretions. The pt is reclined in bed. She makes a delayed direct eye contact with me only after I offer a verbal greeting. Her verbal responses are extremely delayed and often incomplete. Occasionally they are absent. She is only able to state her first name despite verbal cueing. She is oriented to place but not time or event. She is able to follow basic 1-step directions inconsistently. One of the pt's sisters is in the room with her. Oral Sensorimotor Exam The pt has her own dentition but has only 3 remaining teeth on the bottom ridge (anterior teeth). Oral sensation for buccal and labial areas is within normal limits bilaterally (WNL-B) but lingual sensation is unable to be assessed due to the pt's decreased ability to follow directions and poor oral access. Motorically, the smile is symmetrical and no facial droop is noted. Mild right lingual deviation with upward tongue-tip curl is seen in a setting of absent e xcursion. Lingual lateralization is WNL-B but lingual rapid alternating movements are severely decreased. Mandibular lateralization is mildly- moderately decreased. Velopharyngeal elevation is moderately decreased B. Volitional cough is produced as a weak throat-clear. A volitional throat-clear is severely decreased. Speech intelligibility to this mildly familiar listener in a setting of mild background noise is 100% despite mild vocal hoarseness and moderately decreased vocal intensity. It should be noted that some of the tasks in this exam are unable to be done due to the pt's difficulty with following directions. Swallowing: - Honey-thick liquid: Good bolus control but delayed posterior oral transit (POT). Decreased laryngeal elevation on palpation. No suraj signs/symptoms (s/s) of aspiration/penetration (A/P). Oral clearance: 100%. No oral escape. - [place]-thick liquid: Results the same as for Honey-thick liquid but after the swallow, the pt spontaneously puts her right index and middle fingers to her throat at the cricopharyngeal/UES level. She is unable to verbally express/describe any sensation. P. o. intake is halted at this point due to what is felt to be a high risk of both silent and audible aspiration. INTERPRETATION The pt's functional status is significantly diminished from that seen on 07/07/18. She shows a moderate oral and severe pharyngoesophageal dysphagia in a setting of increased generalized weakness and mental status change. She is felt to be at high risk of aspiration with any p. o. intake. RECOMMENDATIONS 1. Continue NPO status. 2. Provide oral moisturizing with use of a cold wet metal teaspoon in order to avoid aspiration. 3. Consider non-oral means of nutrition/hydration/medication. 4. ST is not indicated at this time. The case is discussed with today's hospitalist, Dr. Barrera, and the neurologist, Dr. Bennett. The recommendations and rationale for same are also discussed with the pt's sister. Both Dr. Barrera and the pt's sister are in agreement with the recommendations. Thank you for referring this pt.
[2018-07-14] MEDS: POTASSIUM CHLORIDE 20 MEQ/100 ML BAG 50 MEQ IVPB ×2 (13:08→14:58)
[2018-07-14] MEDS: VANCOMYCIN 1,000 MG in Normal Saline 250 ML 167 MG IVPB (14:24)
[2018-07-14 14:29] LABS: Bilirubin Negative (Negative); Blood Small (Negative); Clarity Clear; Glucose 100 mg/dL (Negative); Ketones Negative (Negative); Leukocyte Esterase Negative (Negative); Nitrite Negative (Negative); Specific Gravity <= 1.005 (1.005-1.025); Urobilinogen 0.2 EU/dL (Up TO 0.2)
[2018-07-14 14:37] LABS: Epithelial Cells Rare HPF (Negative); WBC 0-2 HPF (0-5)
[2018-07-14 14:38] LABS: Bacteria Rare HPF (Negative); C & S Indicated? C&S Done As Ordered; Casts Negative LPF (Negative); Crystals Rare Amorphous HPF (Negative); Mucus Trace (Negative)
--- NOTE | 2018-07-14 16:12 | PT.INTREAT ---
Date of service: 07/14/18 Time of Service: 15:35 PT Notes Inpatient Physical Therapy Treatment Note [facility] Date: 07/14/18 PRECAUTIONS:standard, fall SUBJECTIVE: Christie denies pain at initiation of session. She has family present who state she's done well today. PT treatment was attempted on 4 occasions before patient was available for treatment today; subsequently she received only 1 PT session today. OBJECTIVE: PAIN: denies BED MOBILITY/TRANSFERS Supine-sit: patient able to independently transfer supine->long sit, with HOB at 30 degrees. She initiates steps to transition to EOB, although demonstrates significant DAVILA. Her HR remains below 100, and with rest back to supine position, her breathing recovers after 45 seconds. Sit-stand: unable Bed-Chair: unable GAIT : Unable VITALS: Resting HR 80bpm, BP 155/100. Post-therex, HR 95, BP 156/110. Therex was subsequently discontinued and nursing alerted to elevated BP. THEREX: Patient able to complete therex program in long sit position, with need for max cues and visual feedback. She requires min A with heel slides on the left. ASSESSMENT: Decreased mobility versus previous visits. Patient demonstrating significant DAVILA and blood pressures elevated above safe limits for exercise, limiting our treatment today. PLAN: Re-evaluate and progress tomorrow. Will attempt transfer to EOB with close monitoring of vitals tomorrow. TREATMENT CODE/TIME: 25 minutes ([id number], [id number])
--- NOTE | 2018-07-14 16:20 | PTTR_ITS ---
Date of service: 07/14/18 Time of Service: 15:35 PT Notes Inpatient Physical Therapy Treatment Note [facility] Date: 07/14/18 PRECAUTIONS:standard, fall SUBJECTIVE: Christie denies pain at initiation of session. She has family present w luis antonio state she's done well today. PT treatment was attempted on 4 occasions before patient was available for treatment today; subsequently she received only 1 PT session today. OBJECTIVE: PAIN: denies BED MOBILITY/TRANSFERS Supine-sit: patient able to independently transfer supine->long sit, with HOB at 30 degrees. She initiates steps to transition to EOB, although demonstrates significant DAVILA. Her HR remains below 100, and with rest back to supine position , her breathing recovers after 45 seconds. Sit-stand: unable Bed-Chair: unable GAIT : Unable VITALS: Resting HR 80bpm, BP 155/100. Post-therex, HR 95, BP 156/110. Therex was subsequently discontinued and nursing alerted to elevated BP. THEREX: Patient able to complete therex program in long sit position, with need for max cues and visual feedback. She requires min A with heel slides on the left. ASSESSMENT: Decreased mobility versus previous visits. Patient demonstrating significant DAVILA and blood pressures elevated above safe limits for exercise, limiting our treatment today. PLAN: Re-evaluate and progress tomorrow. Will attempt transfer to EOB with close monitoring of vitals tomorrow. TREATMENT CODE/TIME: 25 minutes ([id number], [id number])
--- NOTE | 2018-07-14 17:43 | W.PM.PROGNOT ---
Date of Service Date of service: 07/14/18 Time of Service: 13:00 Assessment and Plan (1) Weakness on right side of face: Current visit: Yes Status: Acute Likely part of toxic metabolic encephalopathy - but I will again discuss with neurology now that even the family reports seeing it. CT head negative. Septic workup at this time reveals a L basilar infiltrate - we will focus on treating that and reassess mental status. (2) Altered mental status: Current visit: Yes Status: Acute episodes of confusion, 'staring', near unresponsive state while awake, and a potential post-ictal like state earlier on this admission, in addition to worsening confusion now - cannot rule out seizure activity as potential reason, though EEG and MRI were negative. Continue keppra. Treat pneumonia. Check ammonia. (3) Dysphagia: Current visit: Yes Status: Acute Multifactorial - both oropharyngeal and esophageal. She failed her swallowing evaluation today. It is felt right now that her oropharyngeal dysphagia could be due to the acute encephalopathy - so it may, in fact, improve. We will focus on treating her infection. Keep her NPO. The patient would be willing to have a PEG tube if needed, per my conversation with her. She will need outpatient monometry to evaluate her esophageal dysphagia/dysmotility. *h/o distal esophageal spasms and possible stricture. At the time of the EGD in 2007, there was also noted Unprotected aspiration as well as GERD with evidence of esophagitis. An ensuing Endoscopy showed a benign appearing stricture, dilated. (4) Esophageal dysmotility: Current visit: Yes Status: Acute As above (5) Hypotension: Current visit: Yes Status: Resolved Initially, hypotension to the point of shock requiring pressors with evidence of end-organ damage with KJ and elevation in Lactate - unknown etiology. ?Dehydration, ?sepsis. Does not appear to have been adrenal insufficiency, but we are weaning steroids. No clear infectious source. Echo without clear cardiogenic explanation. Aspiration pneumonia/recurrent aspiration events now seem like the most likely scenario. (6) Bradycardia: Current visit: No Status: Acute Resolved, was seen in setting of hypotension. Avoid jovan agents. ? Tachy/Justin Syndrome. Cardiology is aware if patient becomes unstable. No longer requiring pressors/chronotropes. (7) KJ (acute kidney injury): Current visit: Yes Status: Resolved Likely in setting of hypotension, poor perfusion, with concurrent HCTZ and YAMEL-I use. Both meds continue to be on hold. Continue IVF. (8) Schizophrenia: Current visit: No Status: Chronic Behaviors stable. Continue home meds. (9) GERD (gastroesophageal reflux disease): Current visit: Yes Status: Chronic Continue PPI 40 mg IV BID (10) Hypomagnesemia: Current visit: Yes Status: Resolved Monitor (11) Hypernatremia: Current visit: Yes Status: Resolved D/c D5 fluids. (12) Hypokalemia: Current visit: Yes Status: Acute Replete (13) Discharge planning issues: Current visit: Yes Status: Acute Meeting with palliative care to discuss code status. Verbalizes agreement to PEG tube if needed in discussion with me. Transferred back to the ICU today due to change in neurologic status. (14) DVT prophylaxis: Current visit: Yes Status: Acute SC Lovenox. Subjective Interval history since last seen: More confused today and having more slurred speech. Per family, she did have a brief episode of R facial droop this afternoon which they clearly noticed. The patient denies dizziness, chest pain, shortness of breath, nausea, vomiting. She failed her swallowing evaluation today. The patient verbalizes to me that, if she had to have a feeding tube, she would want it. She is not hungry right now. She was evaluated by Dr Saba, who feels that the change in mental status/swallowing is likely a part of encephalopathy and, so, we should look for reversible causes of encephalopathy. Exam Narrative Exam Narrative: General: Middle Aged female, more slow to respond to questions today Neurological: A&ox3, I do not appreciate a R facial droop; preserved strength in BUE's and BLE's HEENT: EOMI, dry MM Heart: RRR, no m/r/g Lungs: Clear/diminished breath sounds B GI: abdomen soft, nontender, nondistended Extremities: +2 BLE edema, no clubbing or cyanosis Objective Objective Clinical Data: Abnormal lab results 07/14/18 07/14/18 07/14/18 Range/Units 06:25 06:25 06:25 RBC 3.88 L (4.00-5.20) m/cumm Hgb 9.6 L (12.0-15.5) g/dL Hct 30.5 L (36.0-46.0) % MCV 78.6 L (80-95) fL MCH 24.7 L (27.0-33.0) pg MCHC 31.5 L (32.0-36.0) g/dL RDW 17.7 H (11.7-14.6) % Absolute Monocytes 0.98 H (0.11-0.7) k/cumm Potassium 3.3 L (3.5-5.1) mmol/L Chloride 111 H (98-107) mmol/L Glucose 106 H (70-100) mg/dL Calcium 8.3 L (8.5-10.1) mg/dL Magnesium 1.7 L (1.8-2.4) mg/dL Urine Blood (Negative) Urine RBC (0-2) 07/14/18 Range/Units 13:05 RBC (4.00-5.20) m/cumm Hgb (12.0-15.5) g/dL Hct (36.0-46.0) % MCV (80-95) fL MCH (27.0-33.0) pg MCHC (32.0-36.0) g/dL RDW (11.7-14.6) % Absolute Monocytes (0.11-0.7) k/cumm Potassium (3.5-5.1) mmol/L Chloride (98-107) mmol/L Glucose (70-100) mg/dL Calcium (8.5-10.1) mg/dL Magnesium (1.8-2.4) mg/dL Urine Blood Small H (Negative) Urine RBC 3-5 H (0-2) Vital Signs Temperature 36.4 C L 07/14/18 16:26 Temperature Source Temporal Artery Scan 07/14/18 16:26 Pulse 85 07/14/18 16:26 Pulse Rhythm Regular 07/14/18 00:05 Pulse 90 07/14/18 15:54 Respiratory Rate 18 07/14/18 16:26 Respiratory Effort Non-Labored 07/14/18 16:26 Respiratory Depth Normal 07/14/18 16:26 Respiratory Pattern Normal 07/14/18 16:26 Blood Pressure 168/104 H 07/14/18 16:26 Blood Pressure Mean 125 07/14/18 16:26 Blood Pressure Position Supine 07/14/18 16:26 Pulse Oximetry 97 07/14/18 16:26 Respiratory End-tidal CO2 34 07/07/18 15:01 Oxygen Delivery Method Room Air 07/14/18 16:26 Oxygen Flow Rate 0 07/14/18 16:26 Pain Level 3 07/14/18 16:26 Comment 07/08/18 16:13 Intake & Output 07/13/18 07/14/18 07/14/18 23:59 11:59 23:59 Intake Total 5400 / 6750 3380 / 3827.500 447.500 / 3827.500 Output Total 2600 / 2850 275 / 1225 950 / 1225 Balance 2800 / 3900 3105 / 2602.500 -502.500 / 2602.500 Weight 105.5 kg Intake: IV 5400 / 6750 3380 / 3827.500 447.500 / 3827.500 Oral 0 / 0 0 / 0 Output: Urine 2600 / 2850 275 / 1225 950 / 1225 Other: Urine Color Yellow Yellow Yellow Urine Appearance Clear Cloudy Cloudy Mucous Threads Mucous Threads Hematuria Comment Bell catheter in place and draining yellow urine with some sedimentation noted. Bell in place, draining clear yellow urine with sediment Stool Occult Blood Negative Negative Stool Size Large Moderate Stool Characteristics Soft Soft Liquid Brown Mucoid Brown Voiding Methods Indwelling Catheter Laboratory Results WBC 8.91 k/cumm (4.4-10.8) 07/14/18 06:25 RBC 3.88 m/cumm (4.00-5.20) L 07/14/18 06:25 Hgb 9.6 g/dL (12.0-15.5) L 07/14/18 06:25 Hct 30.5 % (36.0-46.0) L 07/14/18 06:25 MCV 78.6 fL (80-95) L 07/14/18 06:25 MCH 24.7 pg (27.0-33.0) L 07/14/18 06:25 MCHC 31.5 g/dL (32.0-36.0) L 07/14/18 06:25 RDW 17.7 % (11.7-14.6) H 07/14/18 06:25 Plt Count 242 x1000/uL (130-400) 07/14/18 06:25 MPV 11.0 fL (8.0-11.0) 07/14/18 06:25 Abs Immat Gran (auto) Cancelled 07/13/18 08:05 Immature Gran % 0.3 07/14/18 06:25 Neutrophils % 58.9 07/14/18 06:25 Band Neutrophils % Cancelled 07/13/18 08:05 Lymphocytes % 25.8 07/14/18 06:25 Atypical Lymphs % Cancelled 07/13/18 08:05 Monocytes % 11.0 07/14/18 06:25 Eosinophils % 3.8 07/14/18 06:25 Basophils % 0.2 07/14/18 06:25 Absolute Neutrophils 5.24 k/cumm (1.2-6.7) 07/14/18 06:25 Absolute Lymphocytes 2.30 k/cumm (1.2-3.4) 07/14/18 06:25 Absolute Monocytes 0.98 k/cumm (0.11-0.7) H 07/14/18 06:25 Absolute Eosinophils 0.34 k/cumm (0.0-0.7) 07/14/18 06:25 Absolute Basophils 0.02 k/cumm (0.0-0.2) 07/14/18 06:25 Metamyelocytes Cancelled 07/13/18 08:05 Myelocytes Cancelled 07/13/18 08:05 Promyelocytes Cancelled 07/13/18 08:05 Nucleated RBCs Cancelled 07/13/18 08:05 Differential Comment Rbc morph reviewed 07/06/18 07:20 Other Cell Type Cancelled 07/13/18 08:05 RBC Morphology See below 07/06/18 07:20 Polychromasia Cancelled 07/13/18 08:05 Hypochromasia 2+ 07/06/18 07:20 Poikilocytosis Cancelled 07/13/18 08:05 Basophilic Stippling Cancelled 07/13/18 08:05 Anisocytosis Cancelled 07/13/18 08:05 Microcytosis 2+ 07/06/18 07:20 Macrocytosis Cancelled 07/13/18 08:05 Spherocytes Cancelled 07/13/18 08:05 Target Cells Cancelled 07/13/18 08:05 Tear Drop Cells Cancelled 07/13/18 08:05 Ovalocytes 2+ 07/06/18 07:20 Stomatocytes Cancelled 07/13/18 08:05 [place] Bodies Cancelled 07/13/18 08:05 Girma Cells Cancelled 07/13/18 08:05 Acanthocytes (Spur) Cancelled 07/13/18 08:05 Schistocytes Cancelled 07/13/18 08:05 D-Dimer 1329 ng/mlFEU (<500) H 07/07/18 21:15 Sodium 145 mmol/L (136-145) 07/14/18 06:25 Potassium 3.3 mmol/L (3.5-5.1) L 07/14/18 06:25 Chloride 111 mmol/L (98-107) H 07/14/18 06:25 Carbon Dioxide 26.9 mmol/L (21.0-32.0) 07/14/18 06:25 Anion Gap 7.1 mmol/L (3-11) 07/14/18 06:25 BUN 17 mg/dL (7-18) 07/14/18 06:25 Creatinine 0.98 mg/dL (0.55-1.02) 07/14/18 06:25 Estimated GFR/1.73 m2 57.32 (mL/min/1.73m2) 07/14/18 06:25 Glucose 106 mg/dL (70-100) H 07/14/18 06:25 Lactate 1.0 mmol/L (0.6-1.4) 07/06/18 07:20 Calcium 8.3 mg/dL (8.5-10.1) L 07/14/18 06:25 Magnesium 1.7 mg/dL (1.8-2.4) L 07/14/18 06:25 Total Bilirubin 0.3 mg/dL (0.2-1.0) 07/12/18 05:50 Conjugated Bilirubin 0.10 mg/dL (0.00-0.20) 07/12/18 05:50 AST 24 U/L (15-37) 07/12/18 05:50 ALT 47 U/L (12-78) 07/12/18 05:50 Alkaline Phosphatase 65 U/L (46-116) 07/12/18 05:50 Troponin I 0.02 ng/mL (0.00-0.06) 07/08/18 05:00 NT-Pro-B Natriuret Pep 1154 pg/mL (-299) H 07/07/18 21:15 Total Protein 4.6 g/dL (6.4-8.2) L 07/12/18 05:50 Albumin 2.2 g/dL (3.4-5.0) L 07/12/18 05:50 Lipase 252 U/L (73-393) 07/04/18 13:15 Procalcitonin <0.10 ng/mL (<or=1.5) 07/08/18 06:24 Calcitonin Cancelled 07/08/18 06:24 TSH 1.09 uIU/mL (0.358-3.74) 07/06/18 07:20 Urine Color Yellow (Yellow) 07/14/18 13:05 Urine Clarity Clear 07/14/18 13:05 Urine pH 5.0 (5-8) 07/14/18 13:05 Ur Specific [place] <= 1.005 (1.005-1.025) 07/14/18 13:05 Urine Protein Negative mg/dL (Negative) 07/14/18 13:05 Urine Ketones Negative mg/dL (Negative) 07/14/18 13:05 Urine Blood Small (Negative) H 07/14/18 13:05 Urine Nitrite Negative (Negative) 07/14/18 13:05 Urine Bilirubin Negative (Negative) 07/14/18 13:05 Urine Urobilinogen 0.2 EU/dL (Up TO 0.2) 07/14/18 13:05 Ur Leukocyte Esterase Negative (Negative) 07/14/18 13:05 Urine RBC 3-5 (0-2) H 07/14/18 13:05 Urine WBC 0-2 HPF (0-5) 07/14/18 13:05 Ur Epithelial Cells Rare HPF (Negative) 07/14/18 13:05 Urine Crystals Rare amorphous HPF (Negative) 07/14/18 13:05 Urine Bacteria Rare HPF (Negative) 07/14/18 13:05 Urine Casts Negative LPF (Negative) 07/14/18 13:05 Urine Mucus Trace (Negative) 07/14/18 13:05 Ur Culture Indicated? C&s done as ordered 07/14/18 13:05 Urine Glucose 100 mg/dL (Negative) 07/14/18 13:05 Stool Campylobacter PCR See comments 07/06/18 12:45 Stool Salmonella PCR See comments 07/06/18 12:45 Stool Shigella PCR See comments 07/06/18 12:45 Vancomycin Trough 19.7 ug/mL (10.0-20.0) 07/13/18 08:05 Shiga Toxin (PCR) See comments 07/06/18 12:45 Path Cons Comment See comment 07/06/18 07:20 Miscellaneous Test Cancelled 07/08/18 06:24 CXR: Increased lung markings in the left lung base. This may represent atelectasis or pneumonia.
--- NOTE | 2018-07-14 20:22 | W.PALLCONSUL ---
Date of service: 07/14/18 Time of Service: 20:23 History of Present Illness Chief Complaint: Weakness and mental status changes Narrative: Christie is a 63-year-old woman who lives at [facility] in [place] she has 2 sisters who help to take care of the details of her life. Her past medical history is significant for renal insufficiency, multiple hernia repairs, hypotension requiring levo fed, Parkinson's, schizophrenia. She had a 5-day history of fever and weakness, was brought to the emergency room and admitted for further care. They were concerned because of her hypotension and possible sepsis. During her 10 days in the ICU she has had multiple multiple workups. She does have a left basilar infiltrate and persistent hypotension and weakness. Her sister states that baseline she is fairly functional, although her meals have to be brought to her. Her sisters take care of her checkbook etc. She had lived with her mother until her mother's 4 years ago. They state that they have never seen her mental status as it is now. Of note her PCP said that her mental status baseline was not normal. Today she had a swallowing eval. Unfortunately she does chronic aspiration. And was made n.p.o. She was asked if she wanted a feeding tube and replied yes I was asked to come in and talk to the patient and the family about goals of care and CODE STATUS Consults Consult date: 07/14/18 Requesting physician: Clarisse Barrera Assessment and Plan (1) Esophageal dysmotility: Current visit: Yes Status: Acute (2) Dysphagia: Current visit: Yes Status: Acute (3) Dyspnea: Current visit: No Status: Acute (4) Has end of life care plan: Current visit: No Status: Acute I spoke with Christie and her two sisters. She was very clear that she wanted her sisters to direct her care. We completed a DPOA form. Christie signed it and it was witnessed by an ICU nurse and myself. Christie's clarity of choices broke down when I discussed COde Status. She answered yes to every question even if the questions I asked were total opposites. Christie's sisters stated that they had discussed CODE Status over the last 4 years when their mom was dying of cancer. They both said that they had never seen Christie in her present state. They both felt strongly that Christie stated that she did not want to be on life support, she would not want CPR. The sisters understood what CPR entailed. We reviewed the COLST form. In keeping with Christie's wishes, they chose DNR/DNI as what Christie would chose if she was at her baseline. They knew Christie would still want to be transferred when she returned home, should she get sick again. Christie said she was ok with antibiotics to be administered should she get sick; IV fluids were fine if it can return her to baseline; Christie stated emphatically that she was ok with a feeding tube. We discussed how the tube would enter her abdomen and her food would be liquid. Chicken was her favorite food. She didn't react negatively when I said she may not be able to eat in the future (we didn't know at this time) I understand the medical legal concern about asking Christie who she wants to make decisions for her. Again I asked this question in many many ways. She was quite clear every time I asked the question that she wanted her sisters to make these decisions I feel comfortable that she did assign D POA to them. I have given a copy of her Coast form to her sisters. We also sent a copy to Dr. Styles her PCP and have a copy scanned into [employer], and a copy to [facility] I have spent more than 50% of time in counseling with this patient. This document was created by [employer] recognition and may contain grammatical and translation errors. I did express the above to her nurse and the hospitalist, Dr Barrera. Dr Barrera did enter the DNR/DNI order. Review of Systems Review of Systems Obtaining a review of systems with the patient was impossible. She answered yes to every question even if questions were polar opposite i.e. are you hungry yes are you full yes. Sister states that she has been very weak and that her mental status has not been clear. Today states that in the past she would have been able to answer the questions appropriately. FOR[facility]LY [facility] Medical History Schizophrenia (Chronic) Cognitive developmental delay (Acute) Hypertension (Chronic) Hypothyroidism (Chronic) Social History household members: none current occupational status: disabled Smoking/Tobacco Use Status: Never alcohol intake: never substance use type: does not use additional social history: Lives alone. Exam Narrative Exam Narrative: Christie is lying in an ICU bed, hooked up to monitors and IVs etc. She stares blankly at me at times looks at her sisters for guidance. Her vitals were stable during my visit pupils were equal and reactive her heart was regular. Lungs, to the extent that I was able to listen to them, showed aeration and some scattered rales. She did not try to sit up in bed. She seemed engaged in our conversation, but any attempts at asking her what I said this resulted in either a blank stare or shaking her head. Results Last Vital Signs Temp 97.5 F L 07/14/18 19:17 Pulse 86 07/14/18 19:17 Resp 17 07/14/18 19:17 BP 165/108 H 07/14/18 19:17 Pulse Ox 98 07/14/18 19:17 Labs : 07/14/18 06:25 07/14/18 06:25 Laboratory Results - last 24 hr 07/08/18 07/14/18 07/14/18 06:24 06:25 06:25 WBC 8.91 RBC 3.88 L Hgb 9.6 L Hct 30.5 L MCV 78.6 L MCH 24.7 L MCHC 31.5 L RDW 17.7 H Plt Count 242 MPV 11.0 Immature Gran % 0.3 Neutrophils % 58.9 Lymphocytes % 25.8 Monocytes % 11.0 Eosinophils % 3.8 Basophils % 0.2 Absolute Neutrophils 5.24 Absolute Lymphocytes 2.30 Absolute Monocytes 0.98 H Absolute Eosinophils 0.34 Absolute Basophils 0.02 Sodium Potassium Chloride Carbon Dioxide Anion Gap BUN Creatinine Estimated GFR/1.73 m2 Glucose Calcium Magnesium 1.7 L Procalcitonin <0.10 Calcitonin Cancelled Urine Color Urine Clarity Urine pH Ur Specific [place] Urine Protein Urine Ketones Urine Blood Urine Nitrite Urine Bilirubin Urine Urobilinogen Ur Leukocyte Esterase Urine RBC Urine WBC Ur Epithelial Cells Urine Crystals Urine Bacteria Urine Casts Urine Mucus Ur Culture Indicated? Urine Glucose Miscellaneous Test Cancelled 07/14/18 07/14/18 06:25 13:05 WBC RBC Hgb Hct MCV MCH MCHC RDW Plt Count MPV Immature Gran % Neutrophils % Lymphocytes % Monocytes % Eosinophils % Basophils % Absolute Neutrophils Absolute Lymphocytes Absolute Monocytes Absolute Eosinophils Absolute Basophils Sodium 145 Potassium 3.3 L Chloride 111 H Carbon Dioxide 26.9 Anion Gap 7.1 BUN 17 Creatinine 0.98 Estimated GFR/1.73 m2 57.32 Glucose 106 H Calcium 8.3 L Magnesium Procalcitonin Calcitonin Urine Color Yellow Urine Clarity Clear Urine pH 5.0 Ur Specific [place] <= 1.005 Urine Protein Negative Urine Ketones Negative Urine Blood Small H Urine Nitrite Negative Urine Bilirubin Negative Urine Urobilinogen 0.2 Ur Leukocyte Esterase Negative Urine RBC 3-5 H Urine WBC 0-2 Ur Epithelial Cells Rare Urine Crystals Rare amorphous Urine Bacteria Rare Urine Casts Negative Urine Mucus Trace Ur Culture Indicated? C&s done as ordered Urine Glucose 100 Miscellaneous Test
--- NOTE | 2018-07-14 20:50 | PCNE_ITS ---
Date of service: 07/14/18 Time of Service: 20:23 History of Present Illness Chief Complaint: Weakness and mental status changes Narrative: Christie is a 63-year-old woman who lives at [facility] in [place] she has 2 sisters who help to take care of the details of her life. Her past medical history is significant for renal insufficiency, multiple hernia re pairs, hypotension requiring levo fed, Parkinson's, schizophrenia. She had a 5- day history of fever and weakness, was brought to the emergency room and admitted for further care. They were concerned because of her hypotension and possible sepsis. During her 10 days in the ICU she has had multiple multiple workups. She does have a left basilar infiltrate and persistent hypotension and weakness. Her sister states that baseline she is fairly functional, although her meals have to be brought to her. Her sisters take care of her checkbook etc. She had lived with her mother until her mother's 4 years ago. They state that they have never seen her mental status as it is now. Of note her PCP said that her mental status baseline was not normal. Today she had a swallowing eval. Unfortunately she does chronic aspiration. And was made n.p.o. She was asked if she wanted a feeding tube and replied yes I was asked to come in and talk to the patient and the family about goals of care and CODE STATUS Consults Consult date: 07/14/18 Requesting physician: Clarisse Barrera Assessment and Plan (1) Esophageal dysmotility: Current visit: Yes Status: Acute (2) Dysphagia: Current visit: Yes Status: Acute (3) Dyspnea: Current visit: No Status: Acute (4) Has end of life care plan: Current visit: No Status: Acute I spoke with Christie and her two sisters. She was very clear that she wanted her sisters to direct her care. We completed a DPOA form. Christie signed it and it was witnessed by an ICU nurse and myself. Christie's clarity of choices broke down when I discussed COde Status. She answered yes to every question even if the questions I asked were total opposites. Christie's sisters stated that they had discussed CODE Status over the last 4 years when their mom was dying of cancer. They both said that they had never seen Christie in her present state. They both felt strongly that Christie stated that she did not want to be on life support, she would not want CPR. The sisters understood what CPR entailed. We reviewed the COLST form. In keeping with Christie's wishes, they chose DNR/DNI as what Christie would chose if she was at her baseline. They knew Christie would still want to be transferred when she returned home, should she get sick again. Christie said she was ok with antibiotics to be administered should she get sick; IV fluids were fine if it can return her to baseline; Christie stated emphatically that she was ok with a feeding tube. We discussed how the tube would enter her abdomen and her food would be liquid. Chicken was her favorite food. She didn't react negatively when I said she may not be able to eat in the future (we didn't know at this time) I understand the medical legal concern about asking Christie who she wants to make decisions for her. Again I asked this question in many many ways. She was quite clear every time I asked the question that she wanted her sisters to make these decisions I feel comfortable that she did assign D POA to them. I have given a copy of her Coast form to her sisters. We also sent a copy to Dr. Styles her PCP and have a copy scanned into [employer], and a copy to [facility] I have spent more than 50% of time in counseling with this patient. This document was created by [employer] recognition and may contain grammatical and translation errors. I did express the above to her nurse and the hospitalist, Dr Barrera. Dr Barrera did enter the DNR/DNI order. Review of Systems Review of Systems Obtaining a review of systems with the patient was impossible. She answered yes to every question even if questions were polar opposite i.e. are you hungry yes are you full yes. Sister states that she has been very weak and that her mental status has not been clear. Today states that in the past she would have been able to answer the questions appropriately. FOR[facility]LY [facility] Medical History Schizophrenia (Chronic) Cognitive developmental delay (Acute) Hypertension (Chronic) Hypothyroidism (Chronic) Social History household members: none current occupational status: disabled Smoking/Tobacco Use Status: Never alcohol intake: never substance use type: does not use additional social history: Lives alone. Exam Narrative Exam Narrative: Christie is lying in an ICU bed, hooked up to monitors and IVs etc. She stares blankly at me at times looks at her sisters for guidance. Her vitals were stable during my visit pupils were equal and reactive her heart was regular. Lungs, to the extent that I was able to listen to them, showed aeration and some scattered rales. She did not try to sit up in bed. She seemed engaged in our conversation, but any attempts at asking her what I said this resulted in either a blank stare or shaking her head. Results Last Vital Signs Temp 97.5 F L 07/14/18 19:17 Pulse 86 07/14/18 19:17 Resp 17 07/14/18 19:17 BP 165/108 H 07/14/18 19:17 Pulse Ox 98 07/14/18 19:17 Labs : 07/14/18 06:25 07/14/18 06:25 Laboratory Results - last 24 hr 07/08/18 07/14/18 07/14/18 06:24 06:25 06:25 WBC 8.91 RBC 3.88 L Hgb 9.6 L Hct 30.5 L MCV 78.6 L MCH 24.7 L MCHC 31.5 L RDW 17.7 H Plt Count 242 MPV 11.0 Immature Gran % 0.3 Neutrophils % 58.9 Lymphocytes % 25.8 Monocytes % 11.0 Eosinophils % 3.8 Basophils % 0.2 Absolute Neutrophils 5.24 Absolute Lymphocytes 2.30 Absolute Monocytes 0.98 H Absolute Eosinophils 0.34 Absolute Basophils 0.02 Sodium Potassium Chloride Carbon Dioxide Anion Gap BUN Creatinine Estimated GFR/1.73 m2 Glucose Calcium Magnesium 1.7 L Procalcitonin <0.10 Calcitonin Cancelled Urine Color Urine Clarity Urine pH Ur Specific [place] Urine Protein Urine Ketones Urine Blood Urine Nitrite Urine Bilirubin Urine Urobilinogen Ur Leukocyte Esterase Urine RBC Urine WBC Ur Epithelial Cells Urine Crystals Urine Bacteria Urine Casts Urine Mucus Ur Culture Indicated? Urine Glucose Miscellaneous Test Cancelled 07/14/18 07/14/18 06:25 13:05 WBC RBC Hgb Hct MCV MCH MCHC RDW Plt Count MPV Immature Gran % Neutrophils % Lymphocytes % Monocytes % Eosinophils % Basophils % Absolute Neutrophils Absolute Lymphocytes Absolute Monocytes Absolute Eosinophils Absolute Basophils Sodium 145 Potassium 3.3 L Chloride 111 H Carbon Dioxide 26.9 Anion Gap 7.1 BUN 17 Creatinine 0.98 Estimated GFR/1.73 m2 57.32 Glucose 106 H Calcium 8.3 L Magnesium Procalcitonin Calcitonin Urine Color Yellow Urine Clarity Clear Urine pH 5.0 Ur Specific [place] <= 1.005 Urine Protein Negative Urine Ketones Negative Urine Blood Small H Urine Nitrite Negative Urine Bilirubin Negative Urine Urobilinogen 0.2 Ur Leukocyte Esterase Negative Urine RBC 3-5 H Urine WBC 0-2 Ur Epithelial Cells Rare Urine Crystals Rare amorphous Urine Bacteria Rare Urine Casts Negative Urine Mucus Trace Ur Culture Indicated? C&s done as ordered Urine Glucose 100 Miscellaneous Test
[2018-07-14] MEDS: LEVOFLOXACIN 500 MG/100 ML BAG 100 MG IVPB (20:53)
[2018-07-14] MEDS: Normal Saline 500 ML 100 ML IV (21:10)
--- NOTE | 2018-07-14 21:47 | NUR.NOTE ---
Nursing Note: Luis Ramirez filled out DPOA and Code status paperwork with pt and sisters. then instructed RN to fax this document to , [facility], and [facility], which RN did. However, it was then noted that had filled in wrong birthdate for pt- 09/26/1954, instead of 1955. RN passing this information on to next shift, with goal that they will notify day shift nursing team and this team will notify MD Ramirez so that document can be rectified
[2018-07-15] VITALS (46 sets, daily range): BP systolic 101–173; BP diastolic 63–144; PULSE 67–91; RESP 1–26; TEMP 36.4–37; O2SAT 91–100
[2018-07-15] MEDS: PIPERACILLIN/TAZO 4.5 GM in Normal Saline 100 ML IVPB ×3 (00:10→16:22)
[2018-07-15] MEDS: Normal Saline Flush 10 ML SYR IVP ×6 (00:25→16:57)
[2018-07-15] MEDS: VANCOMYCIN 1,000 MG in Normal Saline 250 ML 167 MG IVPB (01:54)
[2018-07-15] MEDS: Levalbuterol 1.25 MG/3 ML UPD VIAL UPD ×6 (02:03→20:50)
[2018-07-15] MEDS: Pantoprazole 40 MG VIAL IVP ×2 (08:05→20:50)
[2018-07-15] MEDS: Hydrocortisone SOD SUC. 100 MG VIAL 25 MG IVP (08:05)
[2018-07-15] MEDS: Enoxaparin 40 MG/0.4 ML SYR SC (08:10)
[2018-07-15 08:36] LABS: Abs Immature Grans 0.05 k/cumm (0.0-0.09); Absolute Basophil Count 0.02 k/cumm (0.0-0.2); Absolute Eosinophil Count 0.29 k/cumm (0.0-0.7); Absolute Lymphocyte Count 1.18 k/cumm (1.2-3.4); Absolute Monocyte Count 0.98 k/cumm (0.11-0.7); Absolute Neutrophil Count 8.26 k/cumm (1.2-6.7); Basophils % 0.2; Eosinophils % 2.7; HCT 33.5 % (36.0-46.0); HGB 10.5 g/dL (12.0-15.5); Immature Grans % 0.5; Lymphocytes % 10.9; Mean Corp. HGB Concentration 31.3 g/dL (32.0-36.0); Mean Corpuscular Hemoglobin 24.1 pg (27.0-33.0); Mean Platelet Volume 10.9 fL (8.0-11.0); Monocytes % 9.1; Neutrophils % 76.6; Platelet Count 279 x1000/uL (130-400); RBC 4.35 m/cumm (4.00-5.20); RBC Distribution Width 17.6 % (11.7-14.6); White Blood Cell Count 10.78 k/cumm (4.4-10.8)
[2018-07-15 08:37] LABS: Anion Gap 6.8 mmol/L (3-11); BUN 12 mg/dL (7-18); CO2 27.2 mmol/L (21.0-32.0); CREATININE 0.94 mg/dL (0.55-1.02); Calcium 8.7 mg/dL (8.5-10.1); Chloride 111 mmol/L (98-107); Glucose 109 mg/dL (70-100); Magnesium 1.9 mg/dL (1.8-2.4); Potassium 3.1 mmol/L (3.5-5.1); Sodium 145 mmol/L (136-145)
--- NOTE | 2018-07-15 10:19 | PT.INTREAT ---
Date of service: 07/15/18 Time of Service: 10:19 PT Notes 07/15/18 Held morning PT session, patient's BP elevated. Patient unable to follow directions and at one time reports I can't breathe which was reported to nsg. Will attempt to resume PT services later today.
[2018-07-15] MEDS: POTASSIUM CHLORIDE 20 MEQ/100 ML BAG 50 MEQ IVPB ×2 (10:45→14:32)
[2018-07-15] MEDS: Bumetanide 1 MG/4 ML VIAL IVP ×2 (10:46→16:02)
[2018-07-15 10:56] LABS: Ammonia < 10 umol/L (11-32)
--- NOTE | 2018-07-15 13:33 | W.PM.PROGNOT ---
Date of Service Date of service: 07/15/18 Time of Service: 11:15 Assessment and Plan (1) Weakness on right side of face: Current visit: Yes Status: Acute As the family mentioned thinking that the facial droop was indeed there, we are repeating MRI brain - with and without contrast this time, to r/o organic lesion. CT head negative. Continue to treat pneumonia. (2) Altered mental status: Current visit: Yes Status: Acute episodes of confusion, 'staring', near unresponsive state while awake, and a potential post-ictal like state earlier on this admission, in addition to worsening confusion now - cannot rule out seizure activity as potential reason, though EEG and MRI were negative. Continue keppra. Continue to treat pneumonia. Ammonia wnl. For MRI brain with and without contrast. (3) Dysphagia: Current visit: Yes Status: Acute Multifactorial - both oropharyngeal and esophageal. Currently NPO after having failed a swallowing evaluation. It is felt right now that her oropharyngeal dysphagia could be due to the acute encephalopathy - so it may, in fact, improve. Continue to treat pneumonia. Keep her NPO. The patient would be willing to have a PEG tube if needed, per my conversation with her. She will need outpatient monometry to evaluate her esophageal dysphagia/dysmotility. *h/o distal esophageal spasms and possible stricture. At the time of the EGD in 2007, there was also noted Unprotected aspiration as well as GERD with evidence of esophagitis. An ensuing Endoscopy showed a benign appearing stricture, dilated. (4) Esophageal dysmotility: Current visit: Yes Status: Acute As above (5) Hypotension: Current visit: Yes Status: Resolved Initially, hypotension to the point of shock requiring pressors with evidence of end-organ damage with KJ and elevation in Lactate - unknown etiology. ?Dehydration, ?sepsis. Does not appear to have been adrenal insufficiency, but we are weaning steroids. No clear infectious source. Echo without clear cardiogenic explanation. Aspiration pneumonia/recurrent aspiration events now seem like the most likely scenario. (6) Bradycardia: Current visit: No Status: Acute Resolved, was seen in setting of hypotension. Avoid jovan agents. ? Tachy/Justin Syndrome. Cardiology is aware if patient becomes unstable. No longer requiring pressors/chronotropes. (7) KJ (acute kidney injury): Current visit: Yes Status: Resolved Likely in setting of hypotension, poor perfusion, with concurrent HCTZ and YAMEL-I use. Both meds continue to be on hold. Tolerating bumex - continue to monitor Cr. Off IVF at this time. (8) Schizophrenia: Current visit: No Status: Chronic Behaviors stable. Continue home meds. (9) GERD (gastroesophageal reflux disease): Current visit: Yes Status: Chronic Continue PPI 40 mg IV BID (10) Hypomagnesemia: Current visit: Yes Status: Resolved Monitor (11) Hypernatremia: Current visit: Yes Status: Resolved Continue to monitor while diuresing. (12) Hypokalemia: Current visit: Yes Status: Acute Replete (13) Discharge planning issues: Current visit: Yes Status: Acute Code status now DNR/DNI, and DPOA has been assigned. Verbalizes agreement to PEG tube if needed in discussion with me. Keep in ICU. (14) DVT prophylaxis: Current visit: Yes Status: Acute SC Lovenox. Subjective Interval history since last seen: Complains of shortness of breath - she thinks its in her lungs that she has the sensation, but then she keeps pointing to her neck and clearing her throat when talking about it. She has not required oxygen, has not had respiratory distress, and has not be tachypneic. She denies dizziness, chest pain, abdominal pain, nausea, vomiting. Exam Narrative Exam Narrative: General: Middle Aged female, responds mostly with one word answers, appears again slow to respond Neurological: A&ox3, I do not appreciate a R facial droop; preserved strength in BUE's and BLE's HEENT: EOMI, dry MM Heart: RRR, no m/r/g Lungs: Clear/diminished breath sounds B GI: abdomen soft, nontender, nondistended; abdominal fullness in RLQ which I have not previously appreciated - and firmer, per nursing - nontender. Extremities: +2 BLE edema, no clubbing or cyanosis Objective Objective Clinical Data: Abnormal lab results 07/14/18 07/15/18 07/15/18 Range/Units 13:05 08:05 08:05 Hgb 10.5 L (12.0-15.5) g/dL Hct 33.5 L (36.0-46.0) % MCV 77.0 L (80-95) fL MCH 24.1 L (27.0-33.0) pg MCHC 31.3 L (32.0-36.0) g/dL RDW 17.6 H (11.7-14.6) % Absolute Neutrophils 8.26 H (1.2-6.7) k/cumm Absolute Lymphocytes 1.18 L (1.2-3.4) k/cumm Absolute Monocytes 0.98 H (0.11-0.7) k/cumm Potassium 3.1 L (3.5-5.1) mmol/L Chloride 111 H (98-107) mmol/L Glucose 109 H (70-100) mg/dL Ammonia (11-32) umol/L Urine Blood Small H (Negative) Urine RBC 3-5 H (0-2) 07/15/18 Range/Units 10:20 Hgb (12.0-15.5) g/dL Hct (36.0-46.0) % MCV (80-95) fL MCH (27.0-33.0) pg MCHC (32.0-36.0) g/dL RDW (11.7-14.6) % Absolute Neutrophils (1.2-6.7) k/cumm Absolute Lymphocytes (1.2-3.4) k/cumm Absolute Monocytes (0.11-0.7) k/cumm Potassium (3.5-5.1) mmol/L Chloride (98-107) mmol/L Glucose (70-100) mg/dL Ammonia < 10 L (11-32) umol/L Urine Blood (Negative) Urine RBC (0-2) Vital Signs Temperature 36.4 C L 07/15/18 08:35 Temperature Source Temporal Artery Scan 07/15/18 08:35 Pulse 90 07/15/18 12:01 Pulse Rhythm Regular 07/14/18 00:05 Pulse 90 07/15/18 12:01 Respiratory Rate 17 07/15/18 12:01 Respiratory Effort Non-Labored 07/15/18 08:35 Respiratory Depth Normal 07/15/18 08:35 Respiratory Pattern Normal 07/15/18 08:35 Blood Pressure 166/109 H 07/15/18 12:01 Blood Pressure Mean 122 07/15/18 12:01 Blood Pressure Position Supine 07/15/18 08:35 Pulse Oximetry 97 07/15/18 10:01 Respiratory End-tidal CO2 34 07/07/18 15:01 Oxygen Delivery Method Room Air 07/15/18 08:35 Oxygen Flow Rate 0 07/15/18 08:35 Pain Level 0 07/15/18 03:00 Comment 07/08/18 16:13 Intake & Output 07/14/18 07/15/18 07/15/18 23:59 11:59 23:59 Intake Total 1822.500 / 5202.500 250 / 250 Output Total 1721999 650 / 650 Balance 97.500 / 3202.500 -400 / -400 Weight 104.8 kg Intake: IV 1822.500 / 5202.500 250 / 250 Oral 0 / 0 Output: Urine 1724 650 / 650 Other: Urine Color Yellow Yellow Urine Appearance Clear Clear Comment Bell in place, draining clear yellow urine with sediment Bell in intact, draining clear yellow urine with sediment Stool Occult Blood Negative Stool Size Moderate Moderate Stool Characteristics Liquid Soft Brown Brown Laboratory Results WBC 10.78 k/cumm (4.4-10.8) 07/15/18 08:05 RBC 4.35 m/cumm (4.00-5.20) 07/15/18 08:05 Hgb 10.5 g/dL (12.0-15.5) L 07/15/18 08:05 Hct 33.5 % (36.0-46.0) L 07/15/18 08:05 MCV 77.0 fL (80-95) L 07/15/18 08:05 MCH 24.1 pg (27.0-33.0) L 07/15/18 08:05 MCHC 31.3 g/dL (32.0-36.0) L 07/15/18 08:05 RDW 17.6 % (11.7-14.6) H 07/15/18 08:05 Plt Count 279 x1000/uL (130-400) 07/15/18 08:05 MPV 10.9 fL (8.0-11.0) 07/15/18 08:05 Abs Immat Gran (auto) Cancelled 07/13/18 08:05 Immature Gran % 0.5 07/15/18 08:05 Neutrophils % 76.6 07/15/18 08:05 Band Neutrophils % Cancelled 07/13/18 08:05 Lymphocytes % 10.9 07/15/18 08:05 Atypical Lymphs % Cancelled 07/13/18 08:05 Monocytes % 9.1 07/15/18 08:05 Eosinophils % 2.7 07/15/18 08:05 Basophils % 0.2 07/15/18 08:05 Absolute Neutrophils 8.26 k/cumm (1.2-6.7) H 07/15/18 08:05 Absolute Lymphocytes 1.18 k/cumm (1.2-3.4) L 07/15/18 08:05 Absolute Monocytes 0.98 k/cumm (0.11-0.7) H 07/15/18 08:05 Absolute Eosinophils 0.29 k/cumm (0.0-0.7) 07/15/18 08:05 Absolute Basophils 0.02 k/cumm (0.0-0.2) 07/15/18 08:05 Metamyelocytes Cancelled 07/13/18 08:05 Myelocytes Cancelled 07/13/18 08:05 Promyelocytes Cancelled 07/13/18 08:05 Nucleated RBCs Cancelled 07/13/18 08:05 Differential Comment Rbc morph reviewed 07/06/18 07:20 Other Cell Type Cancelled 07/13/18 08:05 RBC Morphology See below 07/06/18 07:20 Polychromasia Cancelled 07/13/18 08:05 Hypochromasia 2+ 07/06/18 07:20 Poikilocytosis Cancelled 07/13/18 08:05 Basophilic Stippling Cancelled 07/13/18 08:05 Anisocytosis Cancelled 07/13/18 08:05 Microcytosis 2+ 07/06/18 07:20 Macrocytosis Cancelled 07/13/18 08:05 Spherocytes Cancelled 07/13/18 08:05 Target Cells Cancelled 07/13/18 08:05 Tear Drop Cells Cancelled 07/13/18 08:05 Ovalocytes 2+ 07/06/18 07:20 Stomatocytes Cancelled 07/13/18 08:05 Telles-Idana Bodies Cancelled 07/13/18 08:05 Girma Cells Cancelled 07/13/18 08:05 Acanthocytes (Spur) Cancelled 07/13/18 08:05 Schistocytes Cancelled 07/13/18 08:05 D-Dimer 1329 ng/mlFEU (<500) H 07/07/18 21:15 Sodium 145 mmol/L (136-145) 07/15/18 08:05 Potassium 3.1 mmol/L (3.5-5.1) L 07/15/18 08:05 Chloride 111 mmol/L (98-107) H 07/15/18 08:05 Carbon Dioxide 27.2 mmol/L (21.0-32.0) 07/15/18 08:05 Anion Gap 6.8 mmol/L (3-11) 07/15/18 08:05 BUN 12 mg/dL (7-18) 07/15/18 08:05 Creatinine 0.94 mg/dL (0.55-1.02) 07/15/18 08:05 Estimated GFR/1.73 m2 >= 60.00 (mL/min/1.73m2) 07/15/18 08:05 Glucose 109 mg/dL (70-100) H 07/15/18 08:05 Lactate 1.0 mmol/L (0.6-1.4) 07/06/18 07:20 Calcium 8.7 mg/dL (8.5-10.1) 07/15/18 08:05 Magnesium 1.9 mg/dL (1.8-2.4) 07/15/18 08:05 Total Bilirubin 0.3 mg/dL (0.2-1.0) 07/12/18 05:50 Conjugated Bilirubin 0.10 mg/dL (0.00-0.20) 07/12/18 05:50 AST 24 U/L (15-37) 07/12/18 05:50 ALT 47 U/L (12-78) 07/12/18 05:50 Alkaline Phosphatase 65 U/L (46-116) 07/12/18 05:50 Ammonia < 10 umol/L (11-32) L 07/15/18 10:20 Troponin I 0.02 ng/mL (0.00-0.06) 07/08/18 05:00 NT-Pro-B Natriuret Pep 1154 pg/mL (-299) H 07/07/18 21:15 Total Protein 4.6 g/dL (6.4-8.2) L 07/12/18 05:50 Albumin 2.2 g/dL (3.4-5.0) L 07/12/18 05:50 Lipase 252 U/L (73-393) 07/04/18 13:15 Procalcitonin <0.10 ng/mL (<or=1.5) 07/08/18 06:24 Calcitonin Cancelled 07/08/18 06:24 TSH 1.09 uIU/mL (0.358-3.74) 07/06/18 07:20 Urine Color Yellow (Yellow) 07/14/18 13:05 Urine Clarity Clear 07/14/18 13:05 Urine pH 5.0 (5-8) 07/14/18 13:05 Ur Specific [place] <= 1.005 (1.005-1.025) 07/14/18 13:05 Urine Protein Negative mg/dL (Negative) 07/14/18 13:05 Urine Ketones Negative mg/dL (Negative) 07/14/18 13:05 Urine Blood Small (Negative) H 07/14/18 13:05 Urine Nitrite Negative (Negative) 07/14/18 13:05 Urine Bilirubin Negative (Negative) 07/14/18 13:05 Urine Urobilinogen 0.2 EU/dL (Up TO 0.2) 07/14/18 13:05 Ur Leukocyte Esterase Negative (Negative) 07/14/18 13:05 Urine RBC 3-5 (0-2) H 07/14/18 13:05 Urine WBC 0-2 HPF (0-5) 07/14/18 13:05 Ur Epithelial Cells Rare HPF (Negative) 07/14/18 13:05 Urine Crystals Rare amorphous HPF (Negative) 07/14/18 13:05 Urine Bacteria Rare HPF (Negative) 07/14/18 13:05 Urine Casts Negative LPF (Negative) 07/14/18 13:05 Urine Mucus Trace (Negative) 07/14/18 13:05 Ur Culture Indicated? C&s done as ordered 07/14/18 13:05 Urine Glucose 100 mg/dL (Negative) 07/14/18 13:05 Stool Campylobacter PCR See comments 07/06/18 12:45 Stool Salmonella PCR See comments 07/06/18 12:45 Stool Shigella PCR See comments 07/06/18 12:45 Vancomycin Trough 19.7 ug/mL (10.0-20.0) 01/20/19 08:05 Shiga Toxin (PCR) See comments 07/06/18 12:45 Path Cons Comment See comment 07/06/18 07:20 Miscellaneous Test Cancelled 07/08/18 06:24
--- NOTE | 2018-07-15 14:00 | DI.MRI_ITS ---
SYMPTOMS/DIAGNOSIS: NEW CEREBROVASCULAR ACCIDENT, ? BRAIN LESION MRI OF BRAIN: Pre and post contrast examination was performed. Comparison CT is 07/13/18. There is global cerebral atrophy. There is normal signal in the brain parenchyma. The diffusion weighted images are unremarkable. No intracranial hemorrhage is seen. No intracranial mass or enhancing lesion is present. The ventricles are intact. The basilar cisterns are patent. No acute midline shift or mass effect is present. There is a normal flow void present in the [place]. The visualized paranasal sinuses are clear. The orbits and retroorbital soft tissues are unremarkable. IMPRESSION: 1. No evidence of an acute infarct, intracranial mass or enhancing lesion. 2. Global cerebral atrophy.
[2018-07-15] MEDS: Gadoterate meglumine 20 ML VIAL IVP (14:03)
--- NOTE | 2018-07-15 15:06 | PT.INTREAT ---
Date of service: 07/15/18 Time of Service: 15:06 PT Notes 07/15/18 Hold afternoon PT session. Patient at MRI testing. Patient has had elevated BP throughout the day at rest and with activity. Will attempt to resume PT services tomorrow morning, if appropriate.
--- NOTE | 2018-07-15 15:54 | DI.RAD_ITS ---
SYMPTOM/DIAGNOSIS: ASPIRATION EVENT PORTABLE AP CHEST: The lungs are free of infiltrate. No pleural effusion is defined. The heart is within normal limits in size. There is some unfolding and ectasia of the thoracic aorta. The tip of a left subclavian appears to end in the mid to distal portion of the superior vena cava. SUMMARY: Clearing of the lung re[place] is demonstrated when compared with the previous examination. A CVP line remains in good position. The heart remains within normal limits in size.
[2018-07-15 16:54] LABS: Vancomycin, Trough 22.6 ug/mL (10.0-20.0)
[2018-07-15] MEDS: methylPREDNISolone SUCC 125 MG VIAL IVP (16:57)
[2018-07-15] MEDS: LORazepam 2 MG/ML VIAL 0.5 MG IVP (17:29)
--- NOTE | 2018-07-15 18:25 | PDOC.CMPRO ---
Care Management Progress Note S/O: Christie continues work up per MD. She remains NPO and her code status was changed yesterday after family meeting with Palliative Care DO; Dr. Ramirez. Christie remains confused but pleasant. CM continues to follow; discharge plan remains undetermined at this time. A: 63 yo disabled female admitted for hypotension now may be in need of a PEG Tube and referral for Palliative Care P: Plan undetermined at this time-monitoring to determine Christie's baseline functionality. Family will transport when medically cleared for discharge.
[2018-07-15] MEDS: Normal Saline Flush 10 ML SYR 20 ML IVP (20:49)
[2018-07-15] MEDS: LEVOFLOXACIN 500 MG/100 ML BAG 100 MG IVPB (20:50)
[2018-07-15] MEDS: Normal Saline 500 ML 30 ML IV (20:50)
[2018-07-15] MEDS: Nystatin POWDER 60 GM JAR TP (20:51)
[2018-07-15] MEDS: VANCOMYCIN 1,000 MG in Normal Saline 250 ML 166.667 MG IVPB (20:51)
[2018-07-16] VITALS (42 sets, daily range): BP systolic 89–175; BP diastolic 53–113; PULSE 71–140; RESP 8–22; TEMP 36.6–36.8; O2SAT 91–100
[2018-07-16] MEDS: PIPERACILLIN/TAZO 4.5 GM in Normal Saline 100 ML IVPB ×3 (00:32→17:02)
[2018-07-16] MEDS: Levalbuterol 1.25 MG/3 ML UPD VIAL UPD ×6 (00:36→21:24)
[2018-07-16 07:05] LABS: Abs Immature Grans 0.06 k/cumm (0.0-0.09); Absolute Basophil Count 0.01 k/cumm (0.0-0.2); Absolute Neutrophil Count 9.21 k/cumm (1.2-6.7); Basophils % 0.1; HCT 31.8 % (36.0-46.0); HGB 10.2 g/dL (12.0-15.5); Immature Grans % 0.5; Mean Corp. HGB Concentration 32.1 g/dL (32.0-36.0); Mean Corpuscular Hemoglobin 24.8 pg (27.0-33.0); Mean Corpuscular Volume 77.4 fL (80-95); Mean Platelet Volume 11.2 fL (8.0-11.0); Monocytes % 10.3; Neutrophils % 80.1; Platelet Count 290 x1000/uL (130-400); RBC 4.11 m/cumm (4.00-5.20)
[2018-07-16 07:11] LABS: Absolute Lymphocyte Count 1.04 k/cumm (1.2-3.4); Absolute Monocyte Count 1.18 k/cumm (0.11-0.7)
[2018-07-16 07:17] LABS: Anion Gap 10.9 mmol/L (3-11); BUN 14 mg/dL (7-18); CO2 27.1 mmol/L (21.0-32.0); Chloride 111 mmol/L (98-107); Glucose 110 mg/dL (70-100); Magnesium 1.8 mg/dL (1.8-2.4); Sodium 149 mmol/L (136-145)
[2018-07-16 07:26] LABS: Calcium 8.8 mg/dL (8.5-10.1)
[2018-07-16] MEDS: Normal Saline Flush 10 ML SYR IVP ×2 (09:04→17:11)
[2018-07-16] MEDS: Normal Saline Flush 10 ML SYR 20 ML IVP ×2 (09:04→21:22)
[2018-07-16] MEDS: Enoxaparin 40 MG/0.4 ML SYR SC (09:41)
[2018-07-16] MEDS: Bumetanide 1 MG/4 ML VIAL IVP ×2 (09:41→17:05)
[2018-07-16] MEDS: Hydrocortisone SOD SUC. 100 MG VIAL 10 MG IVP (09:42)
[2018-07-16] MEDS: Pantoprazole 40 MG VIAL IVP ×2 (09:43→21:22)
[2018-07-16] MEDS: Nystatin POWDER 60 GM JAR TP ×2 (09:43→21:23)
[2018-07-16] MEDS: POTASSIUM CHLORIDE 20 MEQ/100 ML BAG 50 MEQ IVPB ×2 (11:09→13:36)
--- NOTE | 2018-07-16 11:12 | DI.RAD_ITS ---
SYMPTOMS/DIAGNOSIS: F/U ASPIRATION EVENT AP UPRIGHT PORTABLE CHEST: When compared with the 07/15 examination, there has been no significant interval change with no gross infiltrates identified in the lungs. There is no pleural effusion. The heart is unchanged in size. A PICC line remains well positioned in the superior vena cava.
[2018-07-16] MEDS: POTASSIUM CHLORIDE/D5-0.45NACL 1,000 ML 75 MEQ IV (11:52)
--- NOTE | 2018-07-16 12:12 | PT.INTREAT ---
Date of service: 07/16/18 Time of Service: 12:12 PT Notes Inpatient Physical Therapy Treatment Note [facility] Date: 07/16/18 PRECAUTIONS: Fall SUBJECTIVE: Christie stating I can't move. OBJECTIVE: PAIN: No c/o pain BED MOBILITY/TRANSFERS Rolling L/R: Max A x2 Supine-sit: Max A x2 Sit-supine: I Sit-stand: Refused Stand-sit: refused GAIT: Unable VITALS: BP: 175/111 post exercise THEREX: Completed LE AAROM with patient, bilaterally, as per flow sheet. Patient unable to follow direction to completed actively. ASSESSMENT: Patient demonstrated difficulty following directions this morning. She also had elevated BP, which prevented further participation in PT, for safety. PLAN: Continue with PT's POC, as appropriate. TREATMENT CODE/TIME: 30 minutes; ([id number], [id number])
[2018-07-16] MEDS: VANCOMYCIN 1,000 MG in Normal Saline 250 ML 166.67 MG IVPB (14:57)
--- NOTE | 2018-07-16 16:07 | PT.INNT ---
Date of service: 07/16/18 Time of Service: 16:07 PT Notes 07/16/18 Held afternoon PT session due to elevated blood pressures throughout the day. Will attempt to resume PT services tomorrow morning, if appropriate.
--- NOTE | 2018-07-16 16:40 | PDOC.CMPRO ---
Care Management Progress Note S/O: Christie continues work up per MD. CM continues to follow; discharge plan remains undetermined at this time. A: 63 yo disabled female admitted for hypotension now may be in need of a PEG Tube and referral for Palliative Care P: Plan undetermined at this time-monitoring to determine Christie's baseline functionality. Family will transport when medically cleared for discharge.
--- NOTE | 2018-07-16 19:11 | PGE_ITS ---
Date of Service Date of service: 07/16/18 Time of Service: 13:00 Assessment and Plan (1) Weakness on right side of face: Current visit: Yes Status: Resolved MRI brain is negative for CVA/organic lesion. CT head negative. Continue to treat pneumonia. (2) Altered mental status: Current visit: Yes Status: Acute episodes of confusion, 'staring', near unresponsive state while awake, and a potential post-ictal like state earlier on this admission, in addition to worsening confusion now - cannot rule out seizure activity as potential reason, though EEG and MRI x 2 were negative. D/c keppra - worsening confusion could be a side effect. Continue to treat pneumonia. Ammonia wnl. (3) Dysphagia: Current visit: Yes Status: Acute Multifactorial - both oropharyngeal and esophageal. Currently NPO. Swallow reeval tomorrow. If fails, consider PEG tube. Continue to treat pneumonia. D/c keppra. She will need outpatient monometry to evaluate her esophageal dysphagia/dysmotility. *h/o distal esophageal spasms and possible stricture. At the time of the EGD in 2007, there was also noted Unprotected aspiration as well as GERD with evidence of esophagitis. An ensuing Endoscopy showed a benign appearing stricture, dilated. (4) Esophageal dysmotility: Current visit: Yes Status: Acute As above (5) Hypotension: Current visit: Yes Status: Resolved Initially, hypotension to the point of shock requiring pressors with evidence of end-organ damage with KJ and elevation in Lactate - unknown etiology. ?Dehydration, ?sepsis. Does not appear to have been adrenal insufficiency, but we are weaning steroids. No clear infectious source. Echo without clear cardiogenic explanation. Aspiration pneumonia/recurrent aspiration events now seem like the most likely scenario. (6) Bradycardia: Current visit: No Status: Acute Resolved, was seen in setting of hypotension. Avoid jovan agents. ? Tachy/Justin Syndrome. Cardiology is aware if patient becomes unstable. No longer requiring pressors/chronotropes. (7) KJ (acute kidney injury): Current visit: Yes Status: Resolved Likely in setting of hypotension, poor perfusion, with concurrent HCTZ and YAMEL-I use. Both meds continue to be on hold. Tolerating bumex - continue to prema tor Cr. Off IVF at this time. (8) Schizophrenia: Current visit: No Status: Chronic Behaviors stable. Resume home meds once has an NG tube/PEG tube. (9) GERD (gastroesophageal reflux disease): Current visit: Yes Status: Chronic Continue PPI 40 mg IV BID (10) Hypomagnesemia: Current visit: Yes Status: Resolved Monitor (11) Hypernatremia: Current visit: Yes Status: Resolved Continue to monitor while diuresing. (12) Hypokalemia: Current visit: Yes Status: Acute Replete (13) Discharge planning issues: Current visit: Yes Status: Acute Code status now DNR/DNI, and DPOA has been assigned. Verbalizes agreement to PEG tube if needed in discussion with me. Transfer out of ICU. (14) DVT prophylaxis: Current visit: Yes Status: Acute SC Lovenox. Subjective Interval history since last seen: Ms Gardiner is complaining of irritated throat and continues to have a cough. She denies dizziness, chest pain, shortness of breath, nausea, vomiting. Exam Narrative Exam Narrative: General: Middle Aged female, awake, appears slightly faster in her responses, coughing/clearing throat a lot, A&OX2 HEENT: EOMI, MMM Heart: RRR, no m/r/g Lungs: Clear/diminished breath sounds B GI: abdomen soft, nontender, nondistended; abdominal fullness in RLQ - nontender Extremities: +2 BLE edema (improved), no clubbing or cyanosis Objective Objective Clinical Data: Abnormal lab results 07/16/18 07/16/18 Range/Units 06:25 06:25 WBC 11.50 H (4.4-10.8) k/cumm Hgb 10.2 L (12.0-15.5) g/dL Hct 31.8 L (36.0-46.0) % MCV 77.4 L (80-95) fL MCH 24.8 L (27.0-33.0) pg RDW 18.0 H (11.7-14.6) % MPV 11.2 H (8.0-11.0) fL Absolute Neutrophils 9.21 H (1.2-6.7) k/cumm Absolute Lymphocytes 1.04 L (1.2-3.4) k/cumm Absolute Monocytes 1.18 H (0.11-0.7) k/cumm Sodium 149 H (136-145) mmol/L Potassium 3.0 L (3.5-5.1) mmol/L Chloride 111 H (98-107) mmol/L Glucose 110 H (70-100) mg/dL Vital Signs Temperature 36.8 C 07/16/18 12:15 Temperature Source Temporal Artery Scan 07/16/18 12:15 Pulse 108 H 07/16/18 12:01 Pulse Rhythm Regular 07/14/18 00:05 Pulse 109 H 07/16/18 14:00 Respiratory Rate 15 07/16/18 14:00 Respiratory Effort Non-Labored 07/16/18 12:15 Respiratory Depth Normal 07/16/18 12:15 Respiratory Pattern Normal 07/16/18 12:15 Blood Pressure 156/98 H 07/16/18 12:01 Blood Pressure Mean 113 07/16/18 12:01 Blood Pressure Position Left Lateral 07/16/18 12:15 Pulse Oximetry 97 07/16/18 14:00 Respiratory End-tidal CO2 34 07/07/18 15:01 Oxygen Delivery Method Room Air 07/16/18 12:15 Oxygen Flow Rate 0 07/16/18 12:15 Fraction of Inspired Oxygen (FIO2) 28 07/16/18 00:30 Pain Level 0 07/16/18 12:15 Comment 07/08/18 16:13 Intake & Output 07/15/18 07/16/18 07/16/18 23:59 11:59 23:59 Intake Total 875 / 1230 235 / 955 720 / 955 Output Total 3825 / 4475 350 / 1750 1400 / 1750 Balance -2950 / -3245 -115 / -795 -680 / -795 Weight 100.9 kg Intake: IV 875 / 1230 235 / 955 720 / 955 Output: Urine 3825 / 4475 350 / 1750 1400 / 1750 Other: Urine Color Yellow Yellow Yellow Straw Urine Appearance Clear Clear Clear Comment Bell in intact, draining clear yellow urine with sediment Bell in intact, draining clear yellow urine with sediment Bell in intact, draining clear yellow urine with sediment Stool Size Small Stool Characteristics Liquid Brown Laboratory Results WBC 11.50 k/cumm (4.4-10.8) H 07/16/18 06:25 RBC 4.11 m/cumm (4.00-5.20) 07/16/18 06:25 Hgb 10.2 g/dL (12.0-15.5) L 07/16/18 06:25 Hct 31.8 % (36.0-46.0) L 07/16/18 06:25 MCV 77.4 fL (80-95) L 07/16/18 06:25 MCH 24.8 pg (27.0-33.0) L 07/16/18 06:25 MCHC 32.1 g/dL (32.0-36.0) 07/16/18 06:25 RDW 18.0 % (11.7-14.6) H 07/16/18 06:25 Plt Count 290 x1000/uL (130-400) 07/16/18 06:25 MPV 11.2 fL (8.0-11.0) H 07/16/18 06:25 Abs Immat Gran (auto) Cancelled 07/13/18 08:05 Immature Gran % 0.5 07/16/18 06:25 Neutrophils % 80.1 07/16/18 06:25 Band Neutrophils % Cancelled 07/13/18 08:05 Lymphocytes % 9.0 07/16/18 06:25 Atypical Lymphs % Cancelled 07/13/18 08:05 Monocytes % 10.3 07/16/18 06:25 Eosinophils % 0.0 07/16/18 06:25 Basophils % 0.1 07/16/18 06:25 Absolute Neutrophils 9.21 k/cumm (1.2-6.7) H 07/16/18 06:25 Absolute Lymphocytes 1.04 k/cumm (1.2-3.4) L 07/16/18 06:25 Absolute Monocytes 1.18 k/cumm (0.11-0.7) H 07/16/18 06:25 Absolute Eosinophils 0.00 k/cumm (0.0-0.7) 07/16/18 06:25 Absolute Basophils 0.01 k/cumm (0.0-0.2) 07/16/18 06:25 Metamyelocytes Cancelled 07/13/18 08:05 Myelocytes Cancelled 07/13/18 08:05 Promyelocytes Cancelled 07/13/18 08:05 Nucleated RBCs Cancelled 07/13/18 08:05 Differential Comment Rbc morph reviewed 07/06/18 07:20 Other Cell Type Cancelled 07/13/18 08:05 RBC Morphology See below 07/06/18 07:20 Polychromasia Cancelled 07/13/18 08:05 Hypochromasia 2+ 07/06/18 07:20 Poikilocytosis Cancelled 07/13/18 08:05 Basophilic Stippling Cancelled 07/13/18 08:05 Anisocytosis Cancelled 07/13/18 08:05 Microcytosis 2+ 07/06/18 07:20 Macrocytosis Cancelled 07/13/18 08:05 Spherocytes Cancelled 07/13/18 08:05 Target Cells Cancelled 07/13/18 08:05 Tear Drop Cells Cancelled 07/13/18 08:05 Ovalocytes 2+ 07/06/18 07:20 Stomatocytes Cancelled 07/13/18 08:05 [place] Bodies Cancelled 07/13/18 08:05 [place] Cells Cancelled 07/13/18 08:05 Acanthocytes (Spur) Cancelled 07/13/18 08:05 Schistocytes Cancelled 07/13/18 08:05 D-Dimer 1329 ng/mlFEU (<500) H 07/07/18 21:15 Sodium 149 mmol/L (136-145) H 07/16/18 06:25 Potassium 3.0 mmol/L (3.5-5.1) L 07/16/18 06:25 Chloride 111 mmol/L (98-107) H 07/16/18 06:25 Carbon Dioxide 27.1 mmol/L (21.0-32.0) 07/16/18 06:25 Anion Gap 10.9 mmol/L (3-11) 07/16/18 06:25 BUN 14 mg/dL (7-18) 07/16/18 06:25 Creatinine 1.00 mg/dL (0.55-1.02) 07/16/18 06:25 Estimated GFR/1.73 m2 56.00 (mL/min/1.73m2) 07/16/18 06:25 Glucose 110 mg/dL (70-100) H 07/16/18 06:25 Lactate 1.0 mmol/L (0.6-1.4) 07/06/18 07:20 Calcium 8.8 mg/dL (8.5-10.1) 07/16/18 06:25 Magnesium 1.8 mg/dL (1.8-2.4) 07/16/18 06:25 Total Bilirubin 0.3 mg/dL (0.2-1.0) 07/12/18 05:50 Conjugated Bilirubin 0.10 mg/dL (0.00-0.20) 07/12/18 05:50 AST 24 U/L (15-37) 07/12/18 05:50 ALT 47 U/L (12-78) 07/12/18 05:50 Alkaline Phosphatase 65 U/L (46-116) 07/12/18 05:50 Ammonia < 10 umol/L (11-32) L 07/15/18 10:20 Troponin I 0.02 ng/mL (0.00-0.06) 07/08/18 05:00 NT-Pro-B Natriuret Pep 1154 pg/mL (-299) H 07/07/18 21:15 Total Protein 4.6 g/dL (6.4-8.2) L 07/12/18 05:50 Albumin 2.2 g/dL (3.4-5.0) L 07/12/18 05:50 Lipase 252 U/L (73-393) 07/04/18 13:15 Procalcitonin <0.10 ng/mL (<or=1.5) 07/08/18 06:24 Calcitonin Cancelled 07/08/18 06:24 TSH 1.09 uIU/mL (0.358-3.74) 07/06/18 07:20 Urine Color Yellow (Yellow) 07/14/18 13:05 Urine Clarity Clear 07/14/18 13:05 Urine pH 5.0 (5-8) 07/14/18 13:05 Ur Specific [place] <= 1.005 (1.005-1.025) 07/14/18 13:05 Urine Protein Negative mg/dL (Negative) 07/14/18 13:05 Urine Ketones Negative mg/dL (Negative) 07/14/18 13:05 Urine Blood Small (Negative) H 07/14/18 13:05 Urine Nitrite Negative (Negative) 07/14/18 13:05 Urine Bilirubin Negative (Negative) 07/14/18 13:05 Urine Urobilinogen 0.2 EU/dL (Up TO 0.2) 07/14/18 13:05 Ur Leukocyte Esterase Negative (Negative) 07/14/18 13:05 Urine RBC 3-5 (0-2) H 07/14/18 13:05 Urine WBC 0-2 HPF (0-5) 07/14/18 13:05 Ur Epithelial Cells Rare HPF (Negative) 07/14/18 13:05 Urine Crystals Rare amorphous HPF (Negative) 07/14/18 13:05 Urine Bacteria Rare HPF (Negative) 07/14/18 13:05 Urine Casts Negative LPF (Negative) 07/14/18 13:05 Urine Mucus Trace (Negative) 07/14/18 13:05 Ur Culture Indicated? C&s done as ordered 07/14/18 13:05 Urine Glucose 100 mg/dL (Negative) 07/14/18 13:05 Stool Campylobacter PCR See comments 07/06/18 12:45 Stool Salmonella PCR See comments 07/06/18 12:45 Stool Shigella PCR See comments 07/06/18 12:45 Vancomycin Trough 22.6 ug/mL (10.0-20.0) H* 07/15/18 16:15 Shiga Toxin (PCR) See comments 07/06/18 12:45 Path Cons Comment See comment 07/06/18 07:20 Miscellaneous Test Cancelled 07/08/18 06:24
[2018-07-16] MEDS: LEVOFLOXACIN 500 MG/100 ML BAG 100 MG IVPB (21:12)
[2018-07-17] VITALS (21 sets, daily range): BP systolic 133–166; BP diastolic 90–139; PULSE 79–107; RESP 1–33; TEMP 36.8; O2SAT 94–98
[2018-07-17] MEDS: Levalbuterol 1.25 MG/3 ML UPD VIAL UPD ×5 (00:28→21:22)
[2018-07-17] MEDS: PIPERACILLIN/TAZO 4.5 GM in Normal Saline 100 ML IVPB ×3 (00:29→16:05)
[2018-07-17] MEDS: Normal Saline Flush 10 ML SYR IVP ×2 (06:31→21:08)
[2018-07-17 07:25] LABS: Abs Immature Grans 0.06 k/cumm (0.0-0.09); Absolute Basophil Count 0.01 k/cumm (0.0-0.2); Absolute Eosinophil Count 0.16 k/cumm (0.0-0.7); Absolute Lymphocyte Count 1.46 k/cumm (1.2-3.4); Absolute Monocyte Count 1.14 k/cumm (0.11-0.7); Absolute Neutrophil Count 7.68 k/cumm (1.2-6.7); Basophils % 0.1; Eosinophils % 1.5; HCT 30.2 % (36.0-46.0); HGB 9.4 g/dL (12.0-15.5); Immature Grans % 0.6; Lymphocytes % 13.9; Mean Corp. HGB Concentration 31.1 g/dL (32.0-36.0); Mean Corpuscular Hemoglobin 24.5 pg (27.0-33.0); Mean Corpuscular Volume 78.6 fL (80-95); Mean Platelet Volume 11.1 fL (8.0-11.0); Monocytes % 10.8; Neutrophils % 73.1; Platelet Count 276 x1000/uL (130-400); RBC 3.84 m/cumm (4.00-5.20); RBC Distribution Width 18.3 % (11.7-14.6); White Blood Cell Count 10.51 k/cumm (4.4-10.8)
[2018-07-17 07:31] LABS: Anion Gap 9.7 mmol/L (3-11); BUN 13 mg/dL (7-18); CO2 29.3 mmol/L (21.0-32.0); CREATININE 0.99 mg/dL (0.55-1.02); Calcium 8.7 mg/dL (8.5-10.1); Chloride 111 mmol/L (98-107); Estimated GFR 56.65 (mL/min/1.73m2); Glucose 115 mg/dL (70-100); Magnesium 1.7 mg/dL (1.8-2.4); Sodium 150 mmol/L (136-145)
[2018-07-17 07:35] LABS: Vancomycin, Trough 19.1 ug/mL (10.0-20.0)
[2018-07-17 07:46] LABS: Potassium 2.9 mmol/L (3.5-5.1)
[2018-07-17 07:55] LABS: Anisocytosis 2+; Diff Comment RBC Morph Reviewed; Ovalocytes 2+; Polychromasia Present
[2018-07-17 07:56] LABS: Hypochromasia 1+; Poikilocytes 1+
--- NOTE | 2018-07-17 08:44 | W.SPEECHEVAL ---
Date of service: 07/17/18 Time of Service: 07:45 Speech Therapy Evaluation Note: REFERRING PROVIDER: Dr. Barrera BACKGROUND This is a 63 year old left-handed female who is currently being treated for pneumonia as well as other concerns. She has been seen by me twice during this admission for swallow evals. An initial eval was done on 07/07/18 which showed a mild-moderate oral-prep dysphagia secondary to significant partial edentulousness. Consequently, she was changed to a Dysphagial Advanced diet with moistened fine-chopped meats but continued on Thin liquids and whole pills with a liquid wash as tolerated. She was seen for a second swallow eval on 07/14/18 due to a possible R facial droop. At that time, a distinct decrease in overall function was noted with a moderate oral and severe pharyngoesophageal dysphagia. (A 07/11/18 Ba+ swallow x-ray showed esophageal dysmotility and no aspiration/penetration. A 07/12/18 EGD showed only a non-obstructive Schatzky's ring.) An n.p.o. status was recommended as well as consideration of non-oral nutrition/hydration/medication. To date the pt has remained n.p.o. and has not had an NG or PEG tube. A request for current assessment of p.o. toleration is now made. PMH: Schizophrenia, developmental delay, HTN, GERD. OBJECTIVE Nursing reports: - T: 36.8 - O2 sat: 96 on RA - LS: generally CTA-B but possible fine crackles and diminished in the R base The pt is initially observed to show audible respiration due to oropharyngeal secretions when she is prone. She makes no spontaneous effort to clear them. Nursing cleans her up and then puts her in a reclined sitting position prior to my visit and, once she is sitting up, her respiration is no longer audible. She is awake and staring diagonally to her right. She is using mouth breathing. She shows no response to my verbal greeting and requires a verbal request in order to turn her head over toward me (on her left). Having done this, she does make good direct eye contact but whenever I stop speaking to her, she returns to her right visual gaze. Her behavioral and verbal responses are very delayed and, in fact, she sometimes offers no verbal response to questions. Her speech is very dysarthric as she barely moves her lips and tongue unless prompted to do so; this does result in increased oral motor movement and increased speech intelligibility but it is not sustained across conversation. After much encouragement she is able to answer orientation questions and is found to be A & O x 4. She does not follow most 1-step directions, giving a perseverative I can't. to almost every request. The Oral Sensorimotor Exam is unable to be done due the pt's verbal and behavioral refusals (I can't as well as just no responses). The pt is trialed on thermal-tactile stimulation in an effort to increase oral motor movement. However, upon introduction of the cold wet metal tsp to the anterior and mid-tongue, the pt immediately gags and hypersalivates. A tsp coated lightly with Honey-thick liquid is introduced for gustatory stim and this is met with no oral closure around the spoon and oral escape of secretions. At this point, the evaluation is stopped due to what is felt to be a high risk of aspiration. The pt denies being hungry or thirsty. INTERPRETATION The pt continues to be unsafe for any p. o. nutrition/hydration/medication due to a second, and even more severe, decrease in overall functional status. It is felt that her perseverative I can't. is not an indication of physical inability but of mental/emotional difficulty. RECOMMENDATION 1. Continue n.p.o. status. 2. Consider placement of a PEG tube for nutrition/hydration/medication. 3. ST is not indicated at this time. 4. Re-evaluation for safe p.o. intake can be done if/when the pt shows sustained (over several days) alertness/participation. Thank you for referring this pt.
[2018-07-17] MEDS: Normal Saline Flush 10 ML SYR 20 ML IVP ×2 (09:05→19:36)
[2018-07-17] MEDS: Enoxaparin 40 MG/0.4 ML SYR SC (09:05)
[2018-07-17] MEDS: Bumetanide 1 MG/4 ML VIAL IVP (09:06)
[2018-07-17] MEDS: Hydrocortisone SOD SUC. 100 MG VIAL 10 MG IVP (09:22)
[2018-07-17] MEDS: Pantoprazole 40 MG VIAL IVP ×2 (09:27→19:36)
[2018-07-17] MEDS: Nystatin POWDER 60 GM JAR TP ×2 (10:32→19:37)
[2018-07-17] MEDS: MAGNESIUM SULFATE 2 GM/50 ML BAG IVPB (11:05)
--- NOTE | 2018-07-17 11:13 | INDS_ITS ---
Date of service: 07/17/18 Time of Service: 10:40 PT Notes Date: 07/17/18 Referring Doctor: Dr. Sigala PT Orders: PT CONSULT: evaluate and treat Precautions: fall, standard Treatment Dates: 07/11/18 - 07/17/18 Patient Profile/Admitting Diagnosis: Patient admitted with c/o weakness, and found in the ER to be hypotensive. During her hospital stay, she developed possible seizure activity versus waxing and waning encephalopathy in the setting of acute illness. She then developed bradycardia and was admitted to the ICU. Initially during her stay, she was receiving PT intervention, although with worsening mobility leading up to her transfer to ICU. She's been been unable to participate in PT intervention on several occasions throughout the past 7 days, due to elevated blood pressure. She has been seen for 6 PT sessions over the past 7 days PMHX: cognitive dysfunction; HTN; GERD; schizophrenia; Graves disease; esophageal stricture s/p dilation Social History/Home Situation: Patient lives alone in a single level home. She uses a 4WW at night, and according to family present at time of eval, has been encouarged to use this during the day as well, although with limited compliance. She has a mower operator who comes in to help with meals, grocery shopping and housework. She has supportive family in the area, who have been present here at the hospital throughout her stay. Equipment Owned/DME: 4WW Subjective: Christie states that she's feeling well today. She reports that she got up with her walker and nursing and sat in the chair yesterday. She is getting ready to do down for tests at this time. Objective: General Observation: Resting in bed with multiple lines in place. Patient has a blood pressure cuff to right upper extremity, pulse oximeter to left index finger, IV in LUE, telemetry, and a Bell catheter. Mental Status: A&Ox3 Pain: denies Vital Signs: monitored on telemetry throughout. Resting BP is 156/94. ROM: Right Upper Extremity: AROM allows shoulder flexion to 120 degrees. Wrist and elbow motion are WNL. Left Upper Extremity: AROM allows shoulder flexion to 120 degrees. Wrist and elbow motion are WNL. Right Lower Extremity: Hip flexion allows 80 degrees functionally. Knee motion 0-120 bilaterally. Ankle motion allows 0 degrees DF only. Left Lower Extremity: Hip flexion allows 80 degrees functionally. Knee motion 0- 120 bilaterally. Ankle motion allows 0 degrees DF only. Strength: Right Upper Extremity: Shoulder flexion 3-/5. Biceps 3/5. Left Upper Extremity: Shoulder flexion 3-/5. Biceps 3/5. Right Lower Extremity: Patient is functionally able to perform SLR without extension lag. Ankle DF is 3/5 bilat. HS 3/5 bilat. Left Lower Extremity: Patient is functionally able to perform SLR without extension lag. Ankle DF is 3/5 bilat. HS 3/5 bilat. Sensation: intact distally Bed Mobility/Transfers: Supine to sit: Mod assist of 1 Sit to stand: Min assist Stand to sit: Mod assist Bed to chair: Mod assist x2, 4 WW Gait: Patient able to take 3 steps with need for max cues, mod assist x2 and 4 WW Balance: Static sitting: Fair Dynamic sitting: Fair Static standing: Poor Dynamic standing: Poor Treatment: Today's session consisted of reevaluation, and initiation of transfer training. Patient requires max cues throughout, and assistance as noted above. She also completed therapeutic exercises, as noted on flowsheet, with need for both verbal and tactile cues throughout. Assessment: Patient is a 63 year old female referred to physical therapy services with the diagnosis of diminished mobility related to acute illness. Patient has participated in PT intervention over the past 7 days, although with limited ability to participate due to poorly controlled blood pressures. Today she was able to get up to the chair with significant assistance. She continues to demonstrate significant limitations in functional mobility and strength, and requires continued PT intervention in acute care setting to maximize mobility and allow for safe transition back home once medically stable. Goals: Goals X1 week 1. Supine-Sit : supervision (not met) 2. Sit-Supine : supervision(not met) 3. Sit-Stand : supervision(not met) 4. Stand-Sit : supervision(not met) 5. Bed-Chair : CG with 4WW(not met) 6. Chair-Bed : CG with 4WW(not met) 7. Gait : CG with 4WW x 50'(not met) Plan of Care/Treatment Plan: 1-2x/day, 7 days/week x 1 week. Plan of care has been reviewed with the WAREHOUSE RECEIVING SUPERVISOR providing the service under Physical Therapy direction. Initiate Physical Therapy intervention for strengthening, bed mobility, transfers, gait, stairs, balance training, use of assistive device. DISCHARGE RECOMMENDATIONS: home with family assistance. Will likely require continued PT intervention via Home Health services TREATMENT CODE/TIME: 25 minutes ([id number])
[2018-07-17] MEDS: POTASSIUM CHLORIDE 20 MEQ/100 ML BAG 50 MEQ IVPB ×4 (11:22→17:16)
[2018-07-17] MEDS: DEXTROSE 5%-WATER 1,000 ML 75 ML IV ×2 (11:27→11:31)
--- NOTE | 2018-07-17 11:39 | W.NUTCONSULT ---
Date of service: 07/17/18 Time of Service: 11:41 Nutritional Consult ASSESSMENT: Nutrition consult for tube feeding recommendations. Ms. Gardiner has been NPO since 07/12/18. She has been re-evaluated today by speech therapist and was deemed incapable of PO intake. She is 67/170.2 cm and 101.9 kg/224 lbs her BMI is 35.2 kg/m2 which consistent with class 2 obesity. Her adjusted ideal body weight is 89 kg. Her estimated energy needs are 2000 kcal/day (REE x 1.2) Her estimated protein needs are 89g-107g per day based on 1.0-1.2 g/kg of adjusted ideal body weight. Her estimated fluid needs are 2000 ml/day based on 1 ml per kcal provided. Of note, her weight is up 10kg from admission. NUTRITIONAL DIAGNOSIS: Inability to take oral foods and fluids related to decreased alertness. INTERVENTION: Recommend the following tube feeding regimen: Goal rate of Jevity 1.2 micki @ 65 ml/hr continuously. Start feeding at 30 ml/hr x 4 hours then increase by 15 ml every four hours as tolerated until goal rate is achieved. This feeding will provide 1872 calories, 86 grams of protein, 28 grams of fiber, and 1242 ml of free water. She may require an additional 800 ml of free water to maintain adequate hydration. This feeding provides her estimated micronutrient needs. MONITORING AND EVALUATION: 1. Will monitor weight, tolerance to tube feeding, and watch for advance to PO feeds. 2. Will evaluate nutrition care plan ongoing and adjust as needed to provide Ms. Gardiner with optimal nutrition. Thank you for the consult. Time Spent in Nutritional Counseling and Treatment: BERNABE
--- NOTE | 2018-07-17 14:24 | CMPROGNOTE_ITS ---
Care Management Progress Note S/O: Christie continues work up per MD. She was sitting up in her chair when greeted by this race and sports book writer; she remains pleasant in interaction. CM continues to follow; discharge plan remains undetermined at this time. A: 63 yo disabled female admitted for hypotension now may be in need of a PEG Tube and referral for Palliative Care P: Plan undetermined at this time-monitoring to determine Christie's baseline functionality. Family will transport when medically cleared for discharge.
--- NOTE | 2018-07-17 14:56 | PT.INTREAT ---
Date of service: 07/17/18 Time of Service: 14:56 PT Notes Inpatient Physical Therapy Treatment Note [facility] Date: 07/17/18 PRECAUTIONS: Fall SUBJECTIVE: Christie states that she is feeling better today, although her throat is bothering her and she is having a difficult time swallowing. OBJECTIVE: PAIN: No complaints of pain BED MOBILITY/TRANSFERS Supine-sit: Mod A Sit-stand: CGA Stand-sit: Min A Bed-Chair: CGA x2 GAIT Assistive Device: 4 WW Weight bearing: Full Assist: CGA x2 Distance: 3 steps Deviation: X cueing for 4 WW mechanics and movement initiation THEREX: Patient completed several lower extremity strengthening exercises in a seated position, as per flow sheet. VITALS: BP: Pre-activity = 157/117, post 3-minute rest = 155/102 (monitored by nursing throughout session) ASSESSMENT: Patient tolerated session without complaint. Patient required max cueing for movement initiation and 4 WW mechanics with gait training. Patient would benefit from continued gait and transfer training as well as strengthening for improved mobility as well as for improved activity tolerance. PLAN: Continue with PTs POC TREATMENT CODE/TIME: 30 minutes; [id number], [id number]
--- NOTE | 2018-07-17 16:18 | SCONE_ITS ---
Date of service: 07/17/18 Time of Service: 16:15 Assessment and Plan (1) Dysphagia: Start date: 07/17/18 Start time: 16:16 Current visit: Yes Status: Acute pt for peg in am will have to get consent from the sister case will be an add-on (2) Esophageal dysmotility: Start date: 07/17/18 Start time: 16:17 Current visit: Yes Status: Acute History of Present Illness Chief Complaint: dysphagia/dysmotility Review of Systems Constitutional Reports as per [facility] Medical History Schizophrenia (Chronic) Cognitive developmental delay (Acute) Hypertension (Chronic) Hypothyroidism (Chronic) Social History household members: none current occupational status: disabled Smoking/Tobacco Use Status: Never alcohol intake: never substance use type: does not use additional social history: Lives alone. Exam Const General: cooperative Orientation: other (pt cant answer my questions) GI Inspection: normal to inspection Palpation: soft Percussion: normal to percussion Auscultation: normal bowel sounds Results Last Vital Signs Temp 36.8 C 07/17/18 07:54 Pulse 92 H 07/17/18 12:01 Resp 20 07/17/18 12:01 BP 151/107 H 07/17/18 12:01 Pulse Ox 97 07/17/18 10:49 Labs : 07/17/18 06:35 07/17/18 06:35 Laboratory Results - last 24 hr 07/17/18 07/17/18 07/17/18 06:35 06:35 07:00 WBC 10.51 RBC 3.84 L Hgb 9.4 L Hct 30.2 L MCV 78.6 L MCH 24.5 L MCHC 31.1 L RDW 18.3 H Plt Count 276 MPV 11.1 H Immature Gran % 0.6 Neutrophils % 73.1 Lymphocytes % 13.9 Monocytes % 10.8 Eosinophils % 1.5 Basophils % 0.1 Absolute Neutrophils 7.68 H Absolute Lymphocytes 1.46 Absolute Monocytes 1.14 H Absolute Eosinophils 0.16 Absolute Basophils 0.01 Differential Comment Rbc morph reviewed RBC Morphology See below Polychromasia Present Hypochromasia 1+ Poikilocytosis 1+ Anisocytosis 2+ Ovalocytes 2+ Sodium 150 H Potassium 2.9 L* Chloride 111 H Carbon Dioxide 29.3 Anion Gap 9.7 BUN 13 Creatinine 0.99 Estimated GFR/1.73 m2 56.65 Glucose 115 H Calcium 8.7 Magnesium 1.7 L Vancomycin Trough 19.1
--- NOTE | 2018-07-17 18:35 | PGE_ITS ---
Date of Service Date of service: 07/17/18 Time of Service: 12:20 Assessment and Plan (1) Dysphagia: Current visit: Yes Status: Acute Multifactorial - both oropharyngeal and esophageal. Currently NPO. Again, failed this today. General surgery is consulted for a PEG tube tomorrow. Continue to treat pneumonia. She will need outpatient monometry to evaluate her esophageal dysphagia/dy smotility. *h/o distal esophageal spasms and possible stricture. At the time of the EGD in 2007, there was also noted Unprotected aspiration as well as GERD with evidence of esophagitis. An ensuing Endoscopy showed a benign appearing stricture, dilated. (2) Altered mental status: Current visit: Yes Status: Acute Current encephalopathy is different than what the patient initially presented with - ?is this episode due to keppra (d/c'ed) or possibly pneumonia. Initially, had episodes of confusion, 'staring', near unresponsive state while awake, and a potential post-ictal like state - cannot rule out seizure activity as potential reason, though EEG and MRI x 2 were negative. Continue to treat pneumonia. Ammonia wnl. (3) Weakness on right side of face: Current visit: Yes Status: Resolved MRI brain is negative for CVA/organic lesion. CT head negative. Continue to treat pneumonia. (4) Esophageal dysmotility: Current visit: Yes Status: Acute As above (5) Hypotension: Current visit: Yes Status: Resolved Initially, hypotension to the point of shock requiring pressors with evidence of end-organ damage with KJ and elevation in Lactate - unknown etiology. ?Dehydration, ?sepsis. Does not appear to have been adrenal insufficiency, but we are weaning steroids. No clear infectious source. Echo without clear cardiogenic explanation. Aspiration pneumonia/recurrent aspiration events now seem like the most likely scenario. Continue to taper hydrocortisone. No actual evidence of adrenal insufficiency on admission. (6) Bradycardia: Current visit: No Status: Acute Resolved, was seen in setting of hypotension. Avoid jovan agents. ? Tachy/Justin Syndrome. Cardiology is aware if patient becomes unstable. No longer requiring pressors/chronotropes. (7) KJ (acute kidney injury): Current visit: Yes Status: Resolved Likely in setting of hypotension, poor perfusion, with concurrent HCTZ and YAMEL-I use. Both meds continue to be on hold. Tolerating bumex - continue to monitor Cr. Off IVF at this time. (8) Schizophrenia: Current visit: No Status: Chronic Behaviors stable. Resume home meds once has an NG tube/PEG tube. (9) GERD (gastroesophageal reflux disease): Current visit: Yes Status: Chronic Continue PPI 40 mg IV BID (10) Hypomagnesemia: Current visit: Yes Status: Acute Replete (11) Hypernatremia: Current visit: Yes Status: Acute Resume D5 fluids and continue bumex (12) Hypokalemia: Current visit: Yes Status: Acute Replete (13) Discharge planning issues: Current visit: Yes Status: Acute Code status now DNR/DNI, and DPOA has been assigned. Verbalizes agreement to PEG tube if needed in discussion with me. Transfer out of ICU. (14) DVT prophylaxis: Current visit: Yes Status: Acute SC Lovenox. Subjective Interval history since last seen: Christie keeps pointing to her throat, but states it doesn't hurt and that she is not short of breath. She keeps clearing her throat. She denies dizziness, chest pain, nausea, vomiting. She is planned to get a PEG tube tomorrow. Exam Narrative Exam Narrative: General: Middle Aged female, awake, A&Ox2, looks about the same as yesterday HEENT: EOMI, MMM Heart: RRR, no m/r/g Lungs: Clear/diminished breath sounds B GI: abdomen soft, nontender, nondistended; abdominal fullness in RLQ - nontender Extremities: +1 BLE edema (improved), no clubbing or cyanosis Objective Objective Clinical Data: Abnormal lab results 07/17/18 07/17/18 Range/Units 06:35 06:35 RBC 3.84 L (4.00-5.20) m/cumm Hgb 9.4 L (12.0-15.5) g/dL Hct 30.2 L (36.0-46.0) % MCV 78.6 L (80-95) fL MCH 24.5 L (27.0-33.0) pg MCHC 31.1 L (32.0-36.0) g/dL RDW 18.3 H (11.7-14.6) % MPV 11.1 H (8.0-11.0) fL Absolute Neutrophils 7.68 H (1.2-6.7) k/cumm Absolute Monocytes 1.14 H (0.11-0.7) k/cumm Sodium 150 H (136-145) mmol/L Potassium 2.9 L* (3.5-5.1) mmol/L Chloride 111 H (98-107) mmol/L Glucose 115 H (70-100) mg/dL Magnesium 1.7 L (1.8-2.4) mg/dL Vital Signs Temperature 36.8 C 07/17/18 07:54 Temperature Source Temporal Artery Scan 07/17/18 07:54 Pulse 92 H 07/17/18 12:01 Pulse Rhythm Regular 07/17/18 07:56 Pulse 93 H 07/17/18 12:01 Respiratory Rate 20 07/17/18 12:01 Respiratory Effort 07/17/18 07:56 Respiratory Depth Shallow 07/17/18 07:56 Respiratory Pattern Normal 07/17/18 07:56 Blood Pressure 151/107 H 07/17/18 12:01 Blood Pressure Mean 117 07/17/18 12:01 Blood Pressure Position Left Lateral 07/16/18 12:15 Pulse Oximetry 97 07/17/18 10:49 Respiratory End-tidal CO2 34 07/07/18 15:01 Oxygen Delivery Method Room Air 07/17/18 09:19 Oxygen Flow Rate 0 07/17/18 09:19 Fraction of Inspired Oxygen (FIO2) 28 07/16/18 00:30 Pain Level 0 07/16/18 15:05 Comment 07/08/18 16:13 Intake & Output 07/16/18 07/17/18 07/17/18 23:59 11:59 23:59 Intake Total 940 / 1175 105 / 503.333 398.333 / 503.333 Output Total 3600 / 3950 2149 Balance -2660 / -2775 -2045 / -1646.667 398.333 / -1646.667 Weight 101.9 kg Intake: IV 940 / 1175 105 / 503.333 398.333 / 503.333 Output: Urine 3600 / 3950 2149 / 2149 Other: Urine Color Pale Pale Yellow Yellow Urine Appearance Clear Sediment Comment Bell in intact, draining clear yellow urine with sediment Stool Occult Blood Negative Negative Stool Size Small Moderate Small Stool Characteristics Liquid Liquid Soft Brown Laboratory Results WBC 10.51 k/cumm (4.4-10.8) 07/17/18 06:35 RBC 3.84 m/cumm (4.00-5.20) L 07/17/18 06:35 Hgb 9.4 g/dL (12.0-15.5) L 07/17/18 06:35 Hct 30.2 % (36.0-46.0) L 07/17/18 06:35 MCV 78.6 fL (80-95) L 07/17/18 06:35 MCH 24.5 pg (27.0-33.0) L 07/17/18 06:35 MCHC 31.1 g/dL (32.0-36.0) L 07/17/18 06:35 RDW 18.3 % (11.7-14.6) H 07/17/18 06:35 Plt Count 276 x1000/uL (130-400) 07/17/18 06:35 MPV 11.1 fL (8.0-11.0) H 07/17/18 06:35 Abs Immat Gran (auto) Cancelled 07/13/18 08:05 Immature Gran % 0.6 07/17/18 06:35 Neutrophils % 73.1 07/17/18 06:35 Band Neutrophils % Cancelled 07/13/18 08:05 Lymphocytes % 13.9 07/17/18 06:35 Atypical Lymphs % Cancelled 07/13/18 08:05 Monocytes % 10.8 07/17/18 06:35 Eosinophils % 1.5 07/17/18 06:35 Basophils % 0.1 07/17/18 06:35 Absolute Neutrophils 7.68 k/cumm (1.2-6.7) H 07/17/18 06:35 Absolute Lymphocytes 1.46 k/cumm (1.2-3.4) 07/17/18 06:35 Absolute Monocytes 1.14 k/cumm (0.11-0.7) H 07/17/18 06:35 Absolute Eosinophils 0.16 k/cumm (0.0-0.7) 07/17/18 06:35 Absolute Basophils 0.01 k/cumm (0.0-0.2) 07/17/18 06:35 Metamyelocytes Cancelled 07/13/18 08:05 Myelocytes Cancelled 07/13/18 08:05 Promyelocytes Cancelled 07/13/18 08:05 Nucleated RBCs Cancelled 07/13/18 08:05 Differential Comment Rbc morph reviewed 07/17/18 06:35 Other Cell Type Cancelled 07/13/18 08:05 RBC Morphology See below 07/17/18 06:35 Polychromasia Present 07/17/18 06:35 Hypochromasia 1+ 07/17/18 06:35 Poikilocytosis 1+ 07/17/18 06:35 Basophilic Stippling Cancelled 07/13/18 08:05 Anisocytosis 2+ 07/17/18 06:35 Microcytosis 2+ 07/06/18 07:20 Macrocytosis Cancelled 07/13/18 08:05 Spherocytes Cancelled 07/13/18 08:05 Target Cells Cancelled 07/13/18 08:05 Tear Drop Cells Cancelled 07/13/18 08:05 Ovalocytes 2+ 07/17/18 06:35 Stomatocytes Cancelled 07/13/18 08:05 Telles-[place] Bodies Cancelled 07/13/18 08:05 [place] Cells Cancelled 07/13/18 08:05 Acanthocytes (Spur) Cancelled 07/13/18 08:05 Schistocytes Cancelled 07/13/18 08:05 D-Dimer 1329 ng/mlFEU (<500) H 07/07/18 21:15 Sodium 150 mmol/L (136-145) H 07/17/18 06:35 Potassium 2.9 mmol/L (3.5-5.1) L* 07/17/18 06:35 Chloride 111 mmol/L (98-107) H 07/17/18 06:35 Carbon Dioxide 29.3 mmol/L (21.0-32.0) 07/17/18 06:35 Anion Gap 9.7 mmol/L (3-11) 07/17/18 06:35 BUN 13 mg/dL (7-18) 07/17/18 06:35 Creatinine 0.99 mg/dL (0.55-1.02) 07/17/18 06:35 Estimated GFR/1.73 m2 56.65 (mL/min/1.73m2) 07/17/18 06:35 Glucose 115 mg/dL (70-100) H 07/17/18 06:35 Lactate 1.0 mmol/L (0.6-1.4) 07/06/18 07:20 Calcium 8.7 mg/dL (8.5-10.1) 07/17/18 06:35 Magnesium 1.7 mg/dL (1.8-2.4) L 07/17/18 06:35 Total Bilirubin 0.3 mg/dL (0.2-1.0) 07/12/18 05:50 Conjugated Bilirubin 0.10 mg/dL (0.00-0.20) 07/12/18 05:50 AST 24 U/L (15-37) 07/12/18 05:50 ALT 47 U/L (12-78) 07/12/18 05:50 Alkaline Phosphatase 65 U/L (46-116) 07/12/18 05:50 Ammonia < 10 umol/L (11-32) L 07/15/18 10:20 Troponin I 0.02 ng/mL (0.00-0.06) 07/08/18 05:00 NT-Pro-B Natriuret Pep 1154 pg/mL (-299) H 07/07/18 21:15 Total Protein 4.6 g/dL (6.4-8.2) L 07/12/18 05:50 Albumin 2.2 g/dL (3.4-5.0) L 07/12/18 05:50 Lipase 252 U/L (73-393) 07/04/18 13:15 Procalcitonin <0.10 ng/mL (<or=1.5) 07/08/18 06:24 Calcitonin Cancelled 07/08/18 06:24 TSH 1.09 uIU/mL (0.358-3.74) 07/06/18 07:20 Urine Color Yellow (Yellow) 07/14/18 13:05 Urine Clarity Clear 07/14/18 13:05 Urine pH 5.0 (5-8) 07/14/18 13:05 Ur Specific [place] <= 1.005 (1.005-1.025) 07/14/18 13:05 Urine Protein Negative mg/dL (Negative) 07/14/18 13:05 Urine Ketones Negative mg/dL (Negative) 07/14/18 13:05 Urine Blood Small (Negative) H 07/14/18 13:05 Urine Nitrite Negative (Negative) 07/14/18 13:05 Urine Bilirubin Negative (Negative) 07/14/18 13:05 Urine Urobilinogen 0.2 EU/dL (Up TO 0.2) 07/14/18 13:05 Ur Leukocyte Esterase Negative (Negative) 07/14/18 13:05 Urine RBC 3-5 (0-2) H 07/14/18 13:05 Urine WBC 0-2 HPF (0-5) 07/14/18 13:05 Ur Epithelial Cells Rare HPF (Negative) 07/14/18 13:05 Urine Crystals Rare amorphous HPF (Negative) 07/14/18 13:05 Urine Bacteria Rare HPF (Negative) 07/14/18 13:05 Urine Casts Negative LPF (Negative) 07/14/18 13:05 Urine Mucus Trace (Negative) 07/14/18 13:05 Ur Culture Indicated? C&s done as ordered 07/14/18 13:05 Urine Glucose 100 mg/dL (Negative) 07/14/18 13:05 Stool Campylobacter PCR See comments 07/06/18 12:45 Stool Salmonella PCR See comments 07/06/18 12:45 Stool Shigella PCR See comments 07/06/18 12:45 Vancomycin Trough 19.1 ug/mL (10.0-20.0) 07/17/18 07:00 Shiga Toxin (PCR) See comments 07/06/18 12:45 Path Cons Comment See comment 07/06/18 07:20 Miscellaneous Test Cancelled 07/08/18 06:24
[2018-07-17] MEDS: LEVOFLOXACIN 500 MG/100 ML BAG 100 MG IVPB (19:36)
[2018-07-18] VITALS (37 sets, daily range): BP systolic 91–179; BP diastolic 62–122; PULSE 65–103; RESP 2–32; TEMP 36.2–36.3; O2SAT 94–100
[2018-07-18] MEDS: PIPERACILLIN/TAZO 4.5 GM in Normal Saline 100 ML IVPB ×4 (01:06→23:50)
[2018-07-18] MEDS: DEXTROSE 5%-WATER 1,000 ML 75 ML IV (03:12)
--- NOTE | 2018-07-18 06:24 | W.PM.PROGNOT ---
Date of Service Date of service: 07/18/18 Time of Service: 06:24 Assessment and Plan (1) Esophageal dysmotility: Start date: 07/18/18 Start time: :25 Current visit: Yes Status: Acute PEG for today (2) Dysphagia: Current visit: Yes Status: Acute Subjective Patient reports: no new complaints Exam GI Inspection: normal to inspection Palpation: soft Percussion: normal to percussion Auscultation: normal bowel sounds Objective Objective Clinical Data: Abnormal lab results 07/17/18 07/17/18 Range/Units 06:35 06:35 RBC 3.84 L (4.00-5.20) m/cumm Hgb 9.4 L (12.0-15.5) g/dL Hct 30.2 L (36.0-46.0) % MCV 78.6 L (80-95) fL MCH 24.5 L (27.0-33.0) pg MCHC 31.1 L (32.0-36.0) g/dL RDW 18.3 H (11.7-14.6) % MPV 11.1 H (8.0-11.0) fL Absolute Neutrophils 7.68 H (1.2-6.7) k/cumm Absolute Monocytes 1.14 H (0.11-0.7) k/cumm Sodium 150 H (136-145) mmol/L Potassium 2.9 L* (3.5-5.1) mmol/L Chloride 111 H (98-107) mmol/L Glucose 115 H (70-100) mg/dL Magnesium 1.7 L (1.8-2.4) mg/dL Vital Signs Temperature 36.8 C 07/17/18 07:54 Temperature Source Temporal Artery Scan 07/17/18 07:54 Pulse 87 07/18/18 04:01 Pulse Rhythm Regular 07/18/18 00:44 Pulse 88 07/18/18 04:01 Respiratory Rate 30 H 07/18/18 04:01 Respiratory Effort Non-Labored 07/18/18 00:44 Respiratory Depth Normal 07/18/18 00:44 Respiratory Pattern Normal 07/18/18 00:44 Blood Pressure 153/99 H 07/18/18 04:01 Blood Pressure Mean 113 07/18/18 04:01 Blood Pressure Position Left Lateral 07/16/18 12:15 Pulse Oximetry 95 07/18/18 04:01 Respiratory End-tidal CO2 34 07/07/18 15:01 Oxygen Delivery Method Room Air 07/17/18 09:19 Oxygen Flow Rate 0 07/17/18 09:19 Fraction of Inspired Oxygen (FIO2) 28 07/16/18 00:30 Pain Level 0 07/16/18 15:05 Comment 07/17/18 22:23 Intake & Output 07/17/18 07/17/18 07/18/18 11:59 23:59 11:59 Intake Total 105 / 803.333 698.333 / 155.139 4196 / 1200 Output Total 2150 / 3100 950 / 3100 350 / 350 Balance -2045 / -2296.667 -251.667 / -2296.667 850 / 850 Weight 101.9 kg Intake: IV 105 / 803.333 698.333 / 108.897 8110 / 1200 Output: Urine 2150 / 3100 950 / 3100 350 / 350 Other: Urine Color Pale Yellow Yellow Yellow Urine Appearance Sediment Cloudy Clear Stool Occult Blood Negative Negative Stool Size Moderate Small Stool Characteristics Liquid Liquid Brown Laboratory Results WBC 10.51 k/cumm (4.4-10.8) 07/17/18 06:35 RBC 3.84 m/cumm (4.00-5.20) L 07/17/18 06:35 Hgb 9.4 g/dL (12.0-15.5) L 07/17/18 06:35 Hct 30.2 % (36.0-46.0) L 07/17/18 06:35 MCV 78.6 fL (80-95) L 07/17/18 06:35 MCH 24.5 pg (27.0-33.0) L 07/17/18 06:35 MCHC 31.1 g/dL (32.0-36.0) L 07/17/18 06:35 RDW 18.3 % (11.7-14.6) H 07/17/18 06:35 Plt Count 276 x1000/uL (130-400) 07/17/18 06:35 MPV 11.1 fL (8.0-11.0) H 07/17/18 06:35 Abs Immat Gran (auto) Cancelled 07/13/18 08:05 Immature Gran % 0.6 07/17/18 06:35 Neutrophils % 73.1 07/17/18 06:35 Band Neutrophils % Cancelled 07/13/18 08:05 Lymphocytes % 13.9 07/17/18 06:35 Atypical Lymphs % Cancelled 07/13/18 08:05 Monocytes % 10.8 07/17/18 06:35 Eosinophils % 1.5 07/17/18 06:35 Basophils % 0.1 07/17/18 06:35 Absolute Neutrophils 7.68 k/cumm (1.2-6.7) H 07/17/18 06:35 Absolute Lymphocytes 1.46 k/cumm (1.2-3.4) 07/17/18 06:35 Absolute Monocytes 1.14 k/cumm (0.11-0.7) H 07/17/18 06:35 Absolute Eosinophils 0.16 k/cumm (0.0-0.7) 07/17/18 06:35 Absolute Basophils 0.01 k/cumm (0.0-0.2) 07/17/18 06:35 Metamyelocytes Cancelled 07/13/18 08:05 Myelocytes Cancelled 07/13/18 08:05 Promyelocytes Cancelled 07/13/18 08:05 Nucleated RBCs Cancelled 07/13/18 08:05 Differential Comment Rbc morph reviewed 07/17/18 06:35 Other Cell Type Cancelled 07/13/18 08:05 RBC Morphology See below 07/17/18 06:35 Polychromasia Present 07/17/18 06:35 Hypochromasia 1+ 07/17/18 06:35 Poikilocytosis 1+ 07/17/18 06:35 Basophilic Stippling Cancelled 07/13/18 08:05 Anisocytosis 2+ 07/17/18 06:35 Microcytosis 2+ 07/06/18 07:20 Macrocytosis Cancelled 07/13/18 08:05 Spherocytes Cancelled 07/13/18 08:05 Target Cells Cancelled 07/13/18 08:05 Tear Drop Cells Cancelled 07/13/18 08:05 Ovalocytes 2+ 07/17/18 06:35 Stomatocytes Cancelled 07/13/18 08:05 [place] Bodies Cancelled 07/13/18 08:05 [place] Cells Cancelled 07/13/18 08:05 Acanthocytes (Spur) Cancelled 07/13/18 08:05 Schistocytes Cancelled 07/13/18 08:05 D-Dimer 1329 ng/mlFEU (<500) H 07/07/18 21:15 Sodium 150 mmol/L (136-145) H 07/17/18 06:35 Potassium 2.9 mmol/L (3.5-5.1) L* 07/17/18 06:35 Chloride 111 mmol/L (98-107) H 07/17/18 06:35 Carbon Dioxide 29.3 mmol/L (21.0-32.0) 07/17/18 06:35 Anion Gap 9.7 mmol/L (3-11) 07/17/18 06:35 BUN 13 mg/dL (7-18) 07/17/18 06:35 Creatinine 0.99 mg/dL (0.55-1.02) 07/17/18 06:35 Estimated GFR/1.73 m2 56.65 (mL/min/1.73m2) 07/17/18 06:35 Glucose 115 mg/dL (70-100) H 07/17/18 06:35 Lactate 1.0 mmol/L (0.6-1.4) 07/06/18 07:20 Calcium 8.7 mg/dL (8.5-10.1) 07/17/18 06:35 Magnesium 1.7 mg/dL (1.8-2.4) L 07/17/18 06:35 Total Bilirubin 0.3 mg/dL (0.2-1.0) 07/12/18 05:50 Conjugated Bilirubin 0.10 mg/dL (0.00-0.20) 07/12/18 05:50 AST 24 U/L (15-37) 07/12/18 05:50 ALT 47 U/L (12-78) 07/12/18 05:50 Alkaline Phosphatase 65 U/L (46-116) 07/12/18 05:50 Ammonia < 10 umol/L (11-32) L 07/15/18 10:20 Troponin I 0.02 ng/mL (0.00-0.06) 07/08/18 05:00 NT-Pro-B Natriuret Pep 1154 pg/mL (-299) H 07/07/18 21:15 Total Protein 4.6 g/dL (6.4-8.2) L 07/12/18 05:50 Albumin 2.2 g/dL (3.4-5.0) L 07/12/18 05:50 Lipase 252 U/L (73-393) 07/04/18 13:15 Procalcitonin <0.10 ng/mL (<or=1.5) 07/08/18 06:24 Calcitonin Cancelled 07/08/18 06:24 TSH 1.09 uIU/mL (0.358-3.74) 07/06/18 07:20 Urine Color Yellow (Yellow) 07/14/18 13:05 Urine Clarity Clear 07/14/18 13:05 Urine pH 5.0 (5-8) 07/14/18 13:05 Ur Specific [place] <= 1.005 (1.005-1.025) 07/14/18 13:05 Urine Protein Negative mg/dL (Negative) 07/14/18 13:05 Urine Ketones Negative mg/dL (Negative) 07/14/18 13:05 Urine Blood Small (Negative) H 07/14/18 13:05 Urine Nitrite Negative (Negative) 07/14/18 13:05 Urine Bilirubin Negative (Negative) 07/14/18 13:05 Urine Urobilinogen 0.2 EU/dL (Up TO 0.2) 07/14/18 13:05 Ur Leukocyte Esterase Negative (Negative) 07/14/18 13:05 Urine RBC 3-5 (0-2) H 07/14/18 13:05 Urine WBC 0-2 HPF (0-5) 07/14/18 13:05 Ur Epithelial Cells Rare HPF (Negative) 07/14/18 13:05 Urine Crystals Rare amorphous HPF (Negative) 07/14/18 13:05 Urine Bacteria Rare HPF (Negative) 07/14/18 13:05 Urine Casts Negative LPF (Negative) 07/14/18 13:05 Urine Mucus Trace (Negative) 07/14/18 13:05 Ur Culture Indicated? C&s done as ordered 07/14/18 13:05 Urine Glucose 100 mg/dL (Negative) 07/14/18 13:05 Stool Campylobacter PCR See comments 07/06/18 12:45 Stool Salmonella PCR See comments 07/06/18 12:45 Stool Shigella PCR See comments 07/06/18 12:45 Vancomycin Trough 19.1 ug/mL (10.0-20.0) 07/17/18 07:00 Shiga Toxin (PCR) See comments 07/06/18 12:45 Path Cons Comment See comment 07/06/18 07:20 Miscellaneous Test Cancelled 07/08/18 06:24
[2018-07-18 07:24] LABS: Abs Immature Grans 0.03 k/cumm (0.0-0.09); Absolute Basophil Count 0.01 k/cumm (0.0-0.2); Absolute Eosinophil Count 0.37 k/cumm (0.0-0.7); Absolute Lymphocyte Count 1.52 k/cumm (1.2-3.4); Absolute Monocyte Count 0.99 k/cumm (0.11-0.7); Basophils % 0.1; Eosinophils % 3.4; HGB 9.7 g/dL (12.0-15.5); Immature Grans % 0.3; Lymphocytes % 13.8; Mean Corp. HGB Concentration 31.3 g/dL (32.0-36.0); Mean Corpuscular Hemoglobin 24.7 pg (27.0-33.0); Mean Corpuscular Volume 78.9 fL (80-95); Mean Platelet Volume 11.4 fL (8.0-11.0); Neutrophils % 73.4; Platelet Count 288 x1000/uL (130-400); RBC 3.93 m/cumm (4.00-5.20); RBC Distribution Width 18.7 % (11.7-14.6); White Blood Cell Count 11.02 k/cumm (4.4-10.8)
[2018-07-18 07:25] LABS: Absolute Neutrophil Count 8.09 k/cumm (1.2-6.7)
[2018-07-18 07:44] LABS: Anion Gap 8.9 mmol/L (3-11); BUN 10 mg/dL (7-18); CO2 29.1 mmol/L (21.0-32.0); CREATININE 0.89 mg/dL (0.55-1.02); Calcium 8.7 mg/dL (8.5-10.1); Chloride 107 mmol/L (98-107); Glucose 112 mg/dL (70-100); Magnesium 1.9 mg/dL (1.8-2.4); Sodium 145 mmol/L (136-145)
[2018-07-18 08:04] LABS: Potassium 2.8 mmol/L (3.5-5.1)
[2018-07-18] MEDS: Hydrocortisone SOD SUC. 100 MG VIAL 10 MG IVP (08:59)
[2018-07-18] MEDS: Pantoprazole 40 MG VIAL IVP ×2 (09:01→19:34)
[2018-07-18] MEDS: Bumetanide 1 MG/4 ML VIAL IVP (09:01)
[2018-07-18] MEDS: Levalbuterol 1.25 MG/3 ML UPD VIAL UPD ×2 (09:55→14:32)
--- NOTE | 2018-07-18 10:25 | PT.INTREAT ---
Date of service: 07/18/18 Time of Service: 10:26 PT Notes Inpatient Physical Therapy Treatment Note [facility] Date: 07/18/18 PRECAUTIONS: Fall OBJECTIVE: Patient makes good eye contact, although is not speaking or answering questions this morning. Continuously pointing to throat and groaning. PAIN: Patient indicates discomfort in throat this morning BED MOBILITY/TRANSFERS/GAIT: Unable to follow directions to move to edge of bed. THEREX: Patient was able to perform SLR x2, actively. She was unable to follow further instructions, however tolerated PROM to LE, as per flow sheet. ASSESSMENT: Patient was unable to follow directions this morning. Patient tolerated PROM to LE in supine position. Patient would benefit from continued participation in gait and transfer training as well as strengthening for improved mobility. PLAN: Continue with PTs POC TREATMENT CODE/TIME: 10 minutes; [id number]
[2018-07-18] MEDS: POTASSIUM CHLORIDE/D5-0.9%NACL 1,000 ML 75 MEQ IV (11:01)
[2018-07-18] MEDS: POTASSIUM CHLORIDE 20 MEQ/100 ML BAG 50 MEQ IVPB ×4 (11:07→20:19)
[2018-07-18] MEDS: Normal Saline Flush 10 ML SYR 20 ML IVP ×2 (11:17→19:32)
[2018-07-18] MEDS: Normal Saline 500 ML 50 ML IV (11:18)
[2018-07-18] MEDS: Normal Saline Flush 10 ML SYR IVP ×2 (11:19→17:00)
[2018-07-18] MEDS: Nystatin POWDER 60 GM JAR TP ×2 (11:24→19:51)
--- NOTE | 2018-07-18 12:48 | W.PM.PROGNOT ---
Date of Service Date of service: 07/18/18 Time of Service: 12:48 Assessment and Plan (1) Esophageal dysmotility: Current visit: Yes Status: Acute Patient will need PEG placement in OR (2) Hypokalemia: Start date: 07/18/18 Start time: 12:49 Current visit: Yes Status: Acute Patient potassium of 2.8 will need to be corrected would like to be greater than 3.5 or surgery and will repeat in the morning for possible PEG done in the operating room Case discussed with the hospitalist Consent obtained by Sister Netta all risk benefits alternatives discussed in detail and consent was signed Subjective Patient reports: no new complaints Exam GI Inspection: normal to inspection Palpation: soft Percussion: normal to percussion Auscultation: normal bowel sounds Objective Objective Clinical Data: Abnormal lab results 07/18/18 07/18/18 Range/Units 06:20 06:20 WBC 11.02 H (4.4-10.8) k/cumm RBC 3.93 L (4.00-5.20) m/cumm Hgb 9.7 L (12.0-15.5) g/dL Hct 31.0 L (36.0-46.0) % MCV 78.9 L (80-95) fL MCH 24.7 L (27.0-33.0) pg MCHC 31.3 L (32.0-36.0) g/dL RDW 18.7 H (11.7-14.6) % MPV 11.4 H (8.0-11.0) fL Absolute Neutrophils 8.09 H (1.2-6.7) k/cumm Absolute Monocytes 0.99 H (0.11-0.7) k/cumm Potassium 2.8 L* (3.5-5.1) mmol/L Glucose 112 H (70-100) mg/dL Vital Signs Temperature 36.8 C 07/17/18 07:54 Temperature Source Temporal Artery Scan 07/17/18 07:54 Pulse 94 H 07/18/18 09:55 Pulse Rhythm Regular 07/18/18 00:44 Pulse 88 07/18/18 04:01 Respiratory Rate 25 H 07/18/18 09:55 Respiratory Effort Non-Labored 07/18/18 00:44 Respiratory Depth Normal 07/18/18 00:44 Respiratory Pattern Normal 07/18/18 00:44 Blood Pressure 153/99 H 07/18/18 04:01 Blood Pressure Mean 113 07/18/18 04:01 Blood Pressure Position Left Lateral 07/16/18 12:15 Pulse Oximetry 100 07/18/18 09:55 Respiratory End-tidal CO2 34 07/07/18 15:01 Oxygen Delivery Method Room Air 07/18/18 09:55 Oxygen Flow Rate 0 07/18/18 09:55 Fraction of Inspired Oxygen (FIO2) 28 07/16/18 00:30 Pain Level 0 07/16/18 15:05 Comment 07/17/18 22:23 Intake & Output 07/17/18 07/18/18 07/18/18 23:59 11:59 23:59 Intake Total 698.333 / 088.515 5921.833 / 2125.833 Output Total 950 / 3100 350 / 350 Balance -251.667 / -2296.667 1775.833 / 1775.833 Weight 101.2 kg Intake: IV 698.333 / 885.254 4445.833 / 2125.833 Output: Urine 950 / 3100 350 / 350 Other: Urine Color Yellow Yellow Urine Appearance Cloudy Clear Stool Occult Blood Negative Stool Size Small Stool Characteristics Liquid Laboratory Results WBC 11.02 k/cumm (4.4-10.8) H 07/18/18 06:20 RBC 3.93 m/cumm (4.00-5.20) L 07/18/18 06:20 Hgb 9.7 g/dL (12.0-15.5) L 07/18/18 06:20 Hct 31.0 % (36.0-46.0) L 07/18/18 06:20 MCV 78.9 fL (80-95) L 07/18/18 06:20 MCH 24.7 pg (27.0-33.0) L 07/18/18 06:20 MCHC 31.3 g/dL (32.0-36.0) L 07/18/18 06:20 RDW 18.7 % (11.7-14.6) H 07/18/18 06:20 Plt Count 288 x1000/uL (130-400) 07/18/18 06:20 MPV 11.4 fL (8.0-11.0) H 07/18/18 06:20 Abs Immat Gran (auto) Cancelled 07/13/18 08:05 Immature Gran % 0.3 07/18/18 06:20 Neutrophils % 73.4 07/18/18 06:20 Band Neutrophils % Cancelled 07/13/18 08:05 Lymphocytes % 13.8 07/18/18 06:20 Atypical Lymphs % Cancelled 07/13/18 08:05 Monocytes % 9.0 07/18/18 06:20 Eosinophils % 3.4 07/18/18 06:20 Basophils % 0.1 07/18/18 06:20 Absolute Neutrophils 8.09 k/cumm (1.2-6.7) H 07/18/18 06:20 Absolute Lymphocytes 1.52 k/cumm (1.2-3.4) 07/18/18 06:20 Absolute Monocytes 0.99 k/cumm (0.11-0.7) H 07/18/18 06:20 Absolute Eosinophils 0.37 k/cumm (0.0-0.7) 07/18/18 06:20 Absolute Basophils 0.01 k/cumm (0.0-0.2) 07/18/18 06:20 Metamyelocytes Cancelled 07/13/18 08:05 Myelocytes Cancelled 07/13/18 08:05 Promyelocytes Cancelled 07/13/18 08:05 Nucleated RBCs Cancelled 07/13/18 08:05 Differential Comment Rbc morph reviewed 07/17/18 06:35 Other Cell Type Cancelled 07/13/18 08:05 RBC Morphology See below 07/17/18 06:35 Polychromasia Present 07/17/18 06:35 Hypochromasia 1+ 07/17/18 06:35 Poikilocytosis 1+ 07/17/18 06:35 Basophilic Stippling Cancelled 07/13/18 08:05 Anisocytosis 2+ 07/17/18 06:35 Microcytosis 2+ 07/06/18 07:20 Macrocytosis Cancelled 07/13/18 08:05 Spherocytes Cancelled 07/13/18 08:05 Target Cells Cancelled 07/13/18 08:05 Tear Drop Cells Cancelled 07/13/18 08:05 Ovalocytes 2+ 07/17/18 06:35 Stomatocytes Cancelled 07/13/18 08:05 Telles-[place] Bodies Cancelled 07/13/18 08:05 Girma Cells Cancelled 07/13/18 08:05 Acanthocytes (Spur) Cancelled 07/13/18 08:05 Schistocytes Cancelled 07/13/18 08:05 D-Dimer 1329 ng/mlFEU (<500) H 07/07/18 21:15 Sodium 145 mmol/L (136-145) 07/18/18 06:20 Potassium 2.8 mmol/L (3.5-5.1) L* 07/18/18 06:20 Chloride 107 mmol/L (98-107) 07/18/18 06:20 Carbon Dioxide 29.1 mmol/L (21.0-32.0) 07/18/18 06:20 Anion Gap 8.9 mmol/L (3-11) 07/18/18 06:20 BUN 10 mg/dL (7-18) 07/18/18 06:20 Creatinine 0.89 mg/dL (0.55-1.02) 07/18/18 06:20 Estimated GFR/1.73 m2 >= 60.00 (mL/min/1.73m2) 07/18/18 06:20 Glucose 112 mg/dL (70-100) H 07/18/18 06:20 Lactate 1.0 mmol/L (0.6-1.4) 07/06/18 07:20 Calcium 8.7 mg/dL (8.5-10.1) 07/18/18 06:20 Magnesium 1.9 mg/dL (1.8-2.4) 07/18/18 06:20 Total Bilirubin 0.3 mg/dL (0.2-1.0) 07/12/18 05:50 Conjugated Bilirubin 0.10 mg/dL (0.00-0.20) 07/12/18 05:50 AST 24 U/L (15-37) 07/12/18 05:50 ALT 47 U/L (12-78) 07/12/18 05:50 Alkaline Phosphatase 65 U/L (46-116) 07/12/18 05:50 Ammonia < 10 umol/L (11-32) L 07/15/18 10:20 Troponin I 0.02 ng/mL (0.00-0.06) 07/08/18 05:00 NT-Pro-B Natriuret Pep 1154 pg/mL (-299) H 07/07/18 21:15 Total Protein 4.6 g/dL (6.4-8.2) L 07/12/18 05:50 Albumin 2.2 g/dL (3.4-5.0) L 07/12/18 05:50 Lipase 252 U/L (73-393) 07/04/18 13:15 Procalcitonin <0.10 ng/mL (<or=1.5) 07/08/18 06:24 Calcitonin Cancelled 07/08/18 06:24 TSH 1.09 uIU/mL (0.358-3.74) 07/06/18 07:20 Urine Color Yellow (Yellow) 07/14/18 13:05 Urine Clarity Clear 07/14/18 13:05 Urine pH 5.0 (5-8) 07/14/18 13:05 Ur Specific [place] <= 1.005 (1.005-1.025) 07/14/18 13:05 Urine Protein Negative mg/dL (Negative) 07/14/18 13:05 Urine Ketones Negative mg/dL (Negative) 07/14/18 13:05 Urine Blood Small (Negative) H 07/14/18 13:05 Urine Nitrite Negative (Negative) 07/14/18 13:05 Urine Bilirubin Negative (Negative) 07/14/18 13:05 Urine Urobilinogen 0.2 EU/dL (Up TO 0.2) 07/14/18 13:05 Ur Leukocyte Esterase Negative (Negative) 07/14/18 13:05 Urine RBC 3-5 (0-2) H 07/14/18 13:05 Urine WBC 0-2 HPF (0-5) 07/14/18 13:05 Ur Epithelial Cells Rare HPF (Negative) 07/14/18 13:05 Urine Crystals Rare amorphous HPF (Negative) 07/14/18 13:05 Urine Bacteria Rare HPF (Negative) 07/14/18 13:05 Urine Casts Negative LPF (Negative) 07/14/18 13:05 Urine Mucus Trace (Negative) 07/14/18 13:05 Ur Culture Indicated? C&s done as ordered 07/14/18 13:05 Urine Glucose 100 mg/dL (Negative) 07/14/18 13:05 Stool Campylobacter PCR See comments 07/06/18 12:45 Stool Salmonella PCR See comments 07/06/18 12:45 Stool Shigella PCR See comments 07/06/18 12:45 Vancomycin Trough 19.1 ug/mL (10.0-20.0) 07/17/18 07:00 Shiga Toxin (PCR) See comments 07/06/18 12:45 Path Cons Comment See comment 07/06/18 07:20 Miscellaneous Test Cancelled 07/08/18 06:24
--- NOTE | 2018-07-18 15:06 | PDOC.CMPRO ---
Care Management Progress Note S/O: Christie had a planned PEG tube placement for today but was not clinically ready due to her potassium level. She will continue to be monitored. CM spoke to her sister Netta in length. Netta shared concerns around Christie's disposition and shared that Christie would not wish to be in a longterm and would not wish to have terminal makeup operator life support measures. CM reviewed disposition options and provided family education around considerations for all. Netta reported she would consider SNFs and Hospice (with coordination of 14/01 support). Netta reported feeling confident that Christie would want the PEG tube but not sure for how long. Netta also shared concerns around Christie not having her anti-psychotic prescribed for schizophrenia. CM reviewed chart and observed medicine has been held for five days. Netta stated that in the past it has taken weeks for Christie to return to therapeutic levels when missing doses. OSITO spoke with Delfino of Pharmacy who reported injectable Zyprexa was available; but would require MD order. Dr. Barrera shared that Christie's med was held due to NPO status and she would resume CM continues to follow; discharge plan remains undetermined at this time. A: 63 yo disabled female admitted for hypotension now may be in need of a PEG Tube and referral for Palliative Care P: Plan remains undetermined at this time though Christie will likely have PEG tube placed. CM will continue to follow.
--- NOTE | 2018-07-18 15:09 | NUR.NOTE ---
07/18/18-0845 Pt sitting up in bed watching TV. Pointing to her throat multiple times but does not answer questions regarding this. She will make fleeting eye contact. Does not answer questions and does not offer any conversation which is not her norm. Does not recognize this nurse which she has been able to do in the past. Tends to stare out , will not follow simple commands , is very still in her movements. Her sister reports that when she is having a episode with her schizophrenia she will look you in the eye, say no and move her arm to the right to indicate leave me alone. Nursing Note:
--- NOTE | 2018-07-18 15:49 | CMPROGNOTE_ITS ---
Care Management Progress Note S/O: Christie had a planned PEG tube placement for today but was not clinically ready due to her potassium level. She will continue to be monitored. CM spoke to her sister Netta in length. 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 CM reviewed disposition options and provided family education around considerations for all. Netta reported she would consider SNFs and Hospice (with coordination of 14/01 support). Netta reported feeling confident that Christie would want the PEG tube but not sure for how long. Netta also shared concerns around Christie not having her anti-psychotic prescribed for schizophrenia. CM reviewed chart and observed medicine has been held for five days. Netta stated that in the past it has taken weeks for Christie to return to therapeutic levels when missing doses. OSITO spoke with Delfino of Pharmacy who reported injectable Zyprexa was available; but would require MD order. Dr. Barrera shared that Christie's med was held due to NPO status and she would resume CM continues to follow; discharge plan remains undetermined at this time. A: 63 yo disabled female admitted for hypotension now may be in need of a PEG Tube and referral for Palliative Care P: Plan remains undetermined at this time though Christie will likely have PEG tube placed. CM will continue to follow.
--- NOTE | 2018-07-18 16:59 | PT.INTREAT ---
Date of service: 07/18/18 Time of Service: 16:00 PT Notes Inpatient Physical Therapy Treatment Note [facility] Date: 07/18/18 PRECAUTIONS:Fall, standard SUBJECTIVE: Christie is agreeable to setting up a physical therapy. She states that she is feeling well today. OBJECTIVE: PAIN: Denies BED MOBILITY/TRANSFERS Rolling L/R: Max assist of 3 Supine-sit: Min assist x1 Sit-supine: Max assist x2 Sit-stand: Unable GAIT Unable THEREX: Patient completes limited therapeutic exercise program in supine and seated position. Throughout session she demonstrates increasing difficulty following commands, and requires significant assistance to get back to bed. She also has a large bowel movement in the seated position, and requires assistance of 3 for rolling and positioning to allow for effective cleaning. ASSESSMENT: Patient demonstrates good strength and mobility when cognitively able to follow commands. She was able to get out of bed with min assist only for assistance of the left lower extremity however requires max assist of 3 for returning to bed. PLAN: Continue attempts to maximize mobility and independence while medically managed in the ICU TREATMENT CODE/TIME: 45 minutes (61510 x3)
--- NOTE | 2018-07-18 17:04 | PTTR_ITS ---
Date of service: 07/18/18 Time of Service: 16:00 PT Notes Inpatient Physical Therapy Treatment Note [facility] Date: 07/18/18 PRECAUTIONS:Fall, standard SUBJECTIVE: Christie is agreeable to setting up a physical therapy. She states lionel t she is feeling well today. OBJECTIVE: PAIN: Denies BED MOBILITY/TRANSFERS Rolling L/R: Max assist of 3 Supine-sit: Min assist x1 Sit-supine: Max assist x2 Sit-stand: Unable GAIT Unable THEREX: Patient completes limited therapeutic exercise program in supine and seated position. Throughout session she demonstrates increasing difficulty following commands, and requires significant assistance to get back to bed. She also has a large bowel movement in the seated position, and requires assistance of 3 for rolling and positioning to allow for effective cleaning. ASSESSMENT: Patient demonstrates good strength and mobility when cognitively able to follow commands. She was able to get out of bed with min assist only for assistance of the left lower extremity however requires max assist of 3 for returning to bed. PLAN: Continue attempts to maximize mobility and independence while medically managed in the ICU TREATMENT CODE/TIME: 45 minutes (75117 x3)
[2018-07-18 17:21] LABS: Anion Gap 9.5 mmol/L (3-11); BUN 9 mg/dL (7-18); CO2 28.5 mmol/L (21.0-32.0); Calcium 8.9 mg/dL (8.5-10.1); Chloride 109 mmol/L (98-107); Glucose 119 mg/dL (70-100); Potassium 3.3 mmol/L (3.5-5.1); Sodium 147 mmol/L (136-145)
[2018-07-18] MEDS: LEVOFLOXACIN 500 MG/100 ML BAG 100 MG IVPB (19:18)
[2018-07-18] MEDS: POTASSIUM CHLORIDE/D5-0.9%NACL 1,000 ML 125 MEQ IV (20:09)
--- NOTE | 2018-07-18 20:45 | PGE_ITS ---
Date of Service Date of service: 07/18/18 Time of Service: 11:20 Assessment and Plan (1) Dysphagia: Current visit: Yes Status: Acute Multifactorial - both oropharyngeal and esophageal. Failed several swallowing evaluations. Remains NPO in anticipation of the PEG tube tomorrow. Continue to treat her aspiration pneumonia. She will need outpatient monometry to evaluate her esophageal dysphagia/dysmotility. *h/o distal esophageal spasms and possible stricture. At the time of the EGD in 2007, there was also noted Unprotected aspiration as well as GERD with evidence of esophagitis. An ensuing Endoscopy showed a benign appearing stricture, dilated. (2) Altered mental status: Current visit: Yes Status: Acute Current encephalopathy is different than what the patient initially presented with - ?is this episode due to keppra (d/c'ed) or possibly pneumonia. Also, could this be her psychiatric condition presenting again, since she has been off her medications? Initially, had episodes of confusion, 'staring', near unresponsive state while awake, and a potential post-ictal like state - cannot rule out seizure activity as potential reason, though EEG and MRI x 2 were negative. Continue to treat pneumonia as the one potentially correctable reason of encephalopathy. (3) Weakness on right side of face: Current visit: Yes Status: Resolved MRI brain is negative for CVA/organic lesion. CT head negative. Continue to treat pneumonia. (4) Esophageal dysmotility: Current visit: Yes Status: Acute As above (5) Hypotension: Current visit: Yes Status: Resolved Initially, hypotension to the point of shock requiring pressors with evidence of end-organ damage with KJ and elevation in Lactate - unknown etiology. ?Dehydration, ?sepsis. Does not appear to have been adrenal insufficiency, but we are weaning steroids. No clear infectious source. Echo without clear cardiogenic explanation. Aspiration pneumonia/recurrent aspiration events now seem like the most likely scenario. Finished hydrocortisone. No actual evidence of adrenal insufficiency on admission. (6) Bradycardia: Current visit: No Status: Acute Resolved, was seen in setting of hypotension. Avoid jovan agents. ? Tachy/Justin Syndrome. Cardiology is aware if patient becomes unstable. No longer requiring pressors/chronotropes. (7) KJ (acute kidney injury): Current visit: Yes Status: Resolved Likely in setting of hypotension, poor perfusion, with concurrent HCTZ and YAMEL-I use. Both meds continue to be on hold. Tolerating bumex - continue to monitor Cr. Bumex held to avoid hypokalemia prior to PEG placement tomorrow. (8) Schizophrenia: Current visit: No Status: Chronic Possibly a component of this encephalopathy. Resume home meds once has an NG tube/PEG tube. Consider psych consult. (9) GERD (gastroesophageal reflux disease): Current visit: Yes Status: Chronic Continue PPI 40 mg IV BID (10) Hypomagnesemia: Current visit: Yes Status: Acute Replete (11) Hypernatremia: Current visit: Yes Status: Acute Monitor/adjust IVF accordingly (presently, On D5 1/2NS with 40 meq KCL @75 cc/hr) (12) Hypokalemia: Current visit: Yes Status: Acute Replete (13) Discharge planning issues: Current visit: Yes Status: Acute Code status now DNR/DNI, and DPOA has been assigned. Awaiting PEG. In medical surgical status (14) DVT prophylaxis: Current visit: Yes Status: Acute SC Lovenox on hold in anticipation of procedure. Subjective Interval history since last seen: Christie is not answering any of my questions today, but keeps pointing to her throat when I ask her about it. PEG tube placement did not happen today because of hypokalemia. She is planned to undergo PEG placement tomorrow. Exam Narrative Exam Narrative: General: Middle Aged female, awake, while she looks alert, she is not answering my questions today HEENT: EOMI, MMM Heart: RRR, no m/r/g Lungs: Clear/diminished breath sounds B GI: abdomen soft, nontender, nondistended; abdominal fullness in RLQ - nontender Extremities: +1 BLE edema (improved), no clubbing or cyanosis Objective Objective Clinical Data: Abnormal lab results 07/18/18 07/18/18 07/18/18 Range/Units 06:20 06:20 17:00 WBC 11.02 H (4.4-10.8) k/cumm RBC 3.93 L (4.00-5.20) m/cumm Hgb 9.7 L (12.0-15.5) g/dL Hct 31.0 L (36.0-46.0) % MCV 78.9 L (80-95) fL MCH 24.7 L (27.0-33.0) pg MCHC 31.3 L (32.0-36.0) g/dL RDW 18.7 H (11.7-14.6) % MPV 11.4 H (8.0-11.0) fL Absolute Neutrophils 8.09 H (1.2-6.7) k/cumm Absolute Monocytes 0.99 H (0.11-0.7) k/cumm Sodium 147 H (136-145) mmol/L Potassium 2.8 L* 3.3 L (3.5-5.1) mmol/L Chloride 109 H (98-107) mmol/L Glucose 112 H 119 H (70-100) mg/dL Vital Signs Temperature 36.2 C L 07/18/18 12:16 Temperature Source Tympanic 07/18/18 12:16 Pulse 93 H 07/18/18 18:01 Pulse Rhythm Regular 07/18/18 16:32 Pulse 96 H 07/18/18 18:01 Respiratory Rate 29 H 07/18/18 18:01 Respiratory Effort Non-Labored 07/18/18 16:32 Respiratory Depth Normal 07/18/18 16:32 Respiratory Pattern Normal 07/18/18 16:32 Blood Pressure 161/122 H 07/18/18 18:01 Blood Pressure Mean 131 07/18/18 18:01 Blood Pressure Position Left Lateral 07/16/18 12:15 Pulse Oximetry 97 07/18/18 18:01 Respiratory End-tidal CO2 34 07/07/18 15:01 Oxygen Delivery Method Room Air 07/18/18 12:16 Oxygen Flow Rate 0 07/18/18 12:16 Fraction of Inspired Oxygen (FIO2) 28 07/16/18 00:30 Pain Level 0 07/18/18 08:46 Comment 07/17/18 22:23 Intake & Output 07/17/18 07/18/18 07/18/18 23:59 11:59 23:59 Intake Total 698.333 / 698.792 9720.833 / 3535.000 1389.167 / 3535.000 Output Total 950 / 3100 725 / 1275 550 / 1275 Balance -251.667 / -2296.667 1420.833 / 2260.000 839.167 / 2260.000 Weight 101.2 kg Intake: IV 698.333 / 231.972 0062.833 / 3535.000 1389.167 / 3535.000 Oral 0 / 0 0 / 0 Output: Urine 950 / 3100 725 / 1275 550 / 1275 Other: Urine Color Yellow Yellow Yellow Urine Appearance Cloudy Clear Clear Stool Occult Blood Negative Negative Stool Size Small Moderate Moderate Stool Characteristics Liquid Liquid Liquid Laboratory Results WBC 11.02 k/cumm (4.4-10.8) H 07/18/18 06:20 RBC 3.93 m/cumm (4.00-5.20) L 07/18/18 06:20 Hgb 9.7 g/dL (12.0-15.5) L 07/18/18 06:20 Hct 31.0 % (36.0-46.0) L 07/18/18 06:20 MCV 78.9 fL (80-95) L 07/18/18 06:20 MCH 24.7 pg (27.0-33.0) L 07/18/18 06:20 MCHC 31.3 g/dL (32.0-36.0) L 07/18/18 06:20 RDW 18.7 % (11.7-14.6) H 07/18/18 06:20 Plt Count 288 x1000/uL (130-400) 07/18/18 06:20 MPV 11.4 fL (8.0-11.0) H 07/18/18 06:20 Abs Immat Gran (auto) Cancelled 07/13/18 08:05 Immature Gran % 0.3 07/18/18 06:20 Neutrophils % 73.4 07/18/18 06:20 Band Neutrophils % Cancelled 07/13/18 08:05 Lymphocytes % 13.8 07/18/18 06:20 Atypical Lymphs % Cancelled 07/13/18 08:05 Monocytes % 9.0 07/18/18 06:20 Eosinophils % 3.4 07/18/18 06:20 Basophils % 0.1 07/18/18 06:20 Absolute Neutrophils 8.09 k/cumm (1.2-6.7) H 07/18/18 06:20 Absolute Lymphocytes 1.52 k/cumm (1.2-3.4) 07/18/18 06:20 Absolute Monocytes 0.99 k/cumm (0.11-0.7) H 07/18/18 06:20 Absolute Eosinophils 0.37 k/cumm (0.0-0.7) 07/18/18 06:20 Absolute Basophils 0.01 k/cumm (0.0-0.2) 07/18/18 06:20 Metamyelocytes Cancelled 07/13/18 08:05 Myelocytes Cancelled 07/13/18 08:05 Promyelocytes Cancelled 07/13/18 08:05 Nucleated RBCs Cancelled 07/13/18 08:05 Differential Comment Rbc morph reviewed 07/17/18 06:35 Other Cell Type Cancelled 07/13/18 08:05 RBC Morphology See below 07/17/18 06:35 Polychromasia Present 07/17/18 06:35 Hypochromasia 1+ 07/17/18 06:35 Poikilocytosis 1+ 07/17/18 06:35 Basophilic Stippling Cancelled 07/13/18 08:05 Anisocytosis 2+ 07/17/18 06:35 Microcytosis 2+ 07/06/18 07:20 Macrocytosis Cancelled 07/13/18 08:05 Spherocytes Cancelled 07/13/18 08:05 Target Cells Cancelled 07/13/18 08:05 Tear Drop Cells Cancelled 07/13/18 08:05 Ovalocytes 2+ 07/17/18 06:35 Stomatocytes Cancelled 07/13/18 08:05 [place] Bodies Cancelled 07/13/18 08:05 Girma Cells Cancelled 07/13/18 08:05 Acanthocytes (Spur) Cancelled 07/13/18 08:05 Schistocytes Cancelled 07/13/18 08:05 D-Dimer 1329 ng/mlFEU (<500) H 07/07/18 21:15 Sodium 147 mmol/L (136-145) H 07/18/18 17:00 Potassium 3.3 mmol/L (3.5-5.1) L 07/18/18 17:00 Chloride 109 mmol/L (98-107) H 07/18/18 17:00 Carbon Dioxide 28.5 mmol/L (21.0-32.0) 07/18/18 17:00 Anion Gap 9.5 mmol/L (3-11) 07/18/18 17:00 BUN 9 mg/dL (7-18) 07/18/18 17:00 Creatinine 1.00 mg/dL (0.55-1.02) 07/18/18 17:00 Estimated GFR/1.73 m2 56.00 (mL/min/1.73m2) 07/18/18 17:00 Glucose 119 mg/dL (70-100) H 07/18/18 17:00 Lactate 1.0 mmol/L (0.6-1.4) 07/06/18 07:20 Calcium 8.9 mg/dL (8.5-10.1) 07/18/18 17:00 Magnesium 1.9 mg/dL (1.8-2.4) 07/18/18 06:20 Total Bilirubin 0.3 mg/dL (0.2-1.0) 07/12/18 05:50 Conjugated Bilirubin 0.10 mg/dL (0.00-0.20) 07/12/18 05:50 AST 24 U/L (15-37) 07/12/18 05:50 ALT 47 U/L (12-78) 07/12/18 05:50 Alkaline Phosphatase 65 U/L (46-116) 07/12/18 05:50 Ammonia < 10 umol/L (11-32) L 07/15/18 10:20 Troponin I 0.02 ng/mL (0.00-0.06) 07/08/18 05:00 NT-Pro-B Natriuret Pep 1154 pg/mL (-299) H 07/07/18 21:15 Total Protein 4.6 g/dL (6.4-8.2) L 07/12/18 05:50 Albumin 2.2 g/dL (3.4-5.0) L 07/12/18 05:50 Lipase 252 U/L (73-393) 07/04/18 13:15 Procalcitonin <0.10 ng/mL (<or=1.5) 07/08/18 06:24 Calcitonin Cancelled 07/08/18 06:24 TSH 1.09 uIU/mL (0.358-3.74) 07/06/18 07:20 Urine Color Yellow (Yellow) 07/14/18 13:05 Urine Clarity Clear 07/14/18 13:05 Urine pH 5.0 (5-8) 07/14/18 13:05 Ur Specific [place] <= 1.005 (1.005-1.025) 07/14/18 13:05 Urine Protein Negative mg/dL (Negative) 07/14/18 13:05 Urine Ketones Negative mg/dL (Negative) 07/14/18 13:05 Urine Blood Small (Negative) H 07/14/18 13:05 Urine Nitrite Negative (Negative) 07/14/18 13:05 Urine Bilirubin Negative (Negative) 07/14/18 13:05 Urine Urobilinogen 0.2 EU/dL (Up TO 0.2) 07/14/18 13:05 Ur Leukocyte Esterase Negative (Negative) 07/14/18 13:05 Urine RBC 3-5 (0-2) H 07/14/18 13:05 Urine WBC 0-2 HPF (0-5) 07/14/18 13:05 Ur Epithelial Cells Rare HPF (Negative) 07/14/18 13:05 Urine Crystals Rare amorphous HPF (Negative) 07/14/18 13:05 Urine Bacteria Rare HPF (Negative) 07/14/18 13:05 Urine Casts Negative LPF (Negative) 07/14/18 13:05 Urine Mucus Trace (Negative) 07/14/18 13:05 Ur Culture Indicated? C&s done as ordered 07/14/18 13:05 Urine Glucose 100 mg/dL (Negative) 07/14/18 13:05 Stool Campylobacter PCR See comments 07/06/18 12:45 Stool Salmonella PCR See comments 07/06/18 12:45 Stool Shigella PCR See comments 07/06/18 12:45 Vancomycin Trough 19.1 ug/mL (10.0-20.0) 07/17/18 07:00 Shiga Toxin (PCR) See comments 07/06/18 12:45 Path Cons Comment See comment 07/06/18 07:20 Miscellaneous Test Cancelled 07/08/18 06:24
[2018-07-18] MEDS: POTASSIUM CHLORIDE/D5-0.45NACL 1,000 ML 75 MEQ IV (22:23)
[2018-07-19] VITALS (45 sets, daily range): BP systolic 109–182; BP diastolic 74–148; PULSE 30–107; RESP 1–94; TEMP 35.8–37.4; O2SAT 94–100
[2018-07-19] MEDS: Levalbuterol 1.25 MG/3 ML UPD VIAL UPD ×5 (04:46→21:37)
[2018-07-19] MEDS: Normal Saline Flush 10 ML SYR IVP ×3 (04:48→15:40)
[2018-07-19 05:19] LABS: Abs Immature Grans 0.04 k/cumm (0.0-0.09); Absolute Basophil Count 0.02 k/cumm (0.0-0.2); Absolute Lymphocyte Count 1.33 k/cumm (1.2-3.4); Absolute Monocyte Count 1.14 k/cumm (0.11-0.7); Absolute Neutrophil Count 7.85 k/cumm (1.2-6.7); Basophils % 0.2; Eosinophils % 3.7; HCT 31.9 % (36.0-46.0); Immature Grans % 0.4; Lymphocytes % 12.3; Mean Corp. HGB Concentration 31.3 g/dL (32.0-36.0); Mean Corpuscular Hemoglobin 24.9 pg (27.0-33.0); Mean Corpuscular Volume 79.4 fL (80-95); Mean Platelet Volume 10.9 fL (8.0-11.0); Monocytes % 10.6; Neutrophils % 72.8; Platelet Count 299 x1000/uL (130-400); RBC 4.02 m/cumm (4.00-5.20); White Blood Cell Count 10.78 k/cumm (4.4-10.8)
[2018-07-19 05:26] LABS: BUN 8 mg/dL (7-18); CREATININE 0.96 mg/dL (0.55-1.02); Calcium 8.7 mg/dL (8.5-10.1); Chloride 110 mmol/L (98-107); Glucose 108 mg/dL (70-100); Magnesium 1.6 mg/dL (1.8-2.4); Sodium 148 mmol/L (136-145)
--- NOTE | 2018-07-19 06:09 | PGE_ITS ---
Date of Service Date of service: 07/19/18 Time of Service: 06:07 Assessment and Plan (1) Esophageal dysmotility: Start date: 07/19/18 Start time: 06:08 Current visit: Yes Status: Acute potassium corrected for or this am consent done Subjective Patient reports: no new complaints Exam GI Inspection: normal to inspection Palpation: soft Percussion: normal to percussion Auscultation: normal bowel sounds Objective Objective Clinical Data: Abnormal lab results 07/18/18 07/18/18 07/18/18 Range/Units 06:20 06:20 17:00 WBC 11.02 H (4.4-10.8) k/cumm RBC 3.93 L (4.00-5.20) m/cumm Hgb 9.7 L (12.0-15.5) g/dL Hct 31.0 L (36.0-46.0) % MCV 78.9 L (80-95) fL MCH 24.7 L (27.0-33.0) pg MCHC 31.3 L (32.0-36.0) g/dL RDW 18.7 H (11.7-14.6) % MPV 11.4 H (8.0-11.0) fL Absolute Neutrophils 8.09 H (1.2-6.7) k/cumm Absolute Monocytes 0.99 H (0.11-0.7) k/cumm Sodium 147 H (136-145) mmol/L Potassium 2.8 L* 3.3 L (3.5-5.1) mmol/L Chloride 109 H (98-107) mmol/L Glucose 112 H 119 H (70-100) mg/dL Magnesium (1.8-2.4) mg/dL 07/19/18 07/19/18 Range/Units 05:02 05:02 WBC (4.4-10.8) k/cumm RBC (4.00-5.20) m/cumm Hgb 10.0 L (12.0-15.5) g/dL Hct 31.9 L (36.0-46.0) % MCV 79.4 L (80-95) fL MCH 24.9 L (27.0-33.0) pg MCHC 31.3 L (32.0-36.0) g/dL RDW 19.0 H (11.7-14.6) % MPV (8.0-11.0) fL Absolute Neutrophils 7.85 H (1.2-6.7) k/cumm Absolute Monocytes 1.14 H (0.11-0.7) k/cumm Sodium 148 H (136-145) mmol/L Potassium (3.5-5.1) mmol/L Chloride 110 H (98-107) mmol/L Glucose 108 H (70-100) mg/dL Magnesium 1.6 L (1.8-2.4) mg/dL Vital Signs Temperature 36.2 C L 07/18/18 12:16 Temperature Source Tympanic 07/18/18 12:16 Pulse 94 H 07/19/18 02:01 Pulse Rhythm Regular 07/18/18 23:10 Pulse 87 07/19/18 03:00 Respiratory Rate 30 H 07/19/18 04:46 Respiratory Effort Non-Labored 07/18/18 23:10 Respiratory Depth Normal 07/18/18 23:10 Respiratory Pattern Normal 07/18/18 23:10 Blood Pressure 157/109 H 07/19/18 02:01 Blood Pressure Mean 119 07/19/18 02:01 Blood Pressure Position Left Lateral 07/16/18 12:15 Pulse Oximetry 94 L 07/19/18 04:46 Respiratory End-tidal CO2 34 07/07/18 15:01 Oxygen Delivery Method Room Air 07/19/18 04:46 Oxygen Flow Rate 0 07/19/18 04:46 Fraction of Inspired Oxygen (FIO2) 28 07/16/18 00:30 Pain Level 0 07/18/18 08:46 Comment 07/17/18 22:23 Intake & Output 07/18/18 07/18/18 07/19/18 11:59 23:59 11:59 Intake Total 2145.833 / 4443.334 2297.501 / 4443.334 100 / 100 Output Total 725 / 1525 800 / 1525 Balance 1420.833 / 2918.334 1497.501 / 2918.334 100 / 100 Weight 101.2 kg Intake: IV 2145.833 / 4443.334 2297.501 / 4443.334 100 / 100 Oral 0 / 0 0 / 0 0 / 0 Output: Urine 725 / 1525 800 / 1525 Other: Urine Color Yellow Yellow Yellow Urine Appearance Clear Clear Clear Urine Odor Normal Comment Passing clear yellow urine QS. Passing clear yellow urine QS. Stool Occult Blood Negative Stool Size Moderate Moderate Stool Characteristics Liquid Liquid Voiding Methods Indwelling Catheter Laboratory Results WBC 10.78 k/cumm (4.4-10.8) 07/19/18 05:02 RBC 4.02 m/cumm (4.00-5.20) 07/19/18 05:02 Hgb 10.0 g/dL (12.0-15.5) L 07/19/18 05:02 Hct 31.9 % (36.0-46.0) L 07/19/18 05:02 MCV 79.4 fL (80-95) L 07/19/18 05:02 MCH 24.9 pg (27.0-33.0) L 07/19/18 05:02 MCHC 31.3 g/dL (32.0-36.0) L 07/19/18 05:02 RDW 19.0 % (11.7-14.6) H 07/19/18 05:02 Plt Count 299 x1000/uL (130-400) 07/19/18 05:02 MPV 10.9 fL (8.0-11.0) 07/19/18 05:02 Abs Immat Gran (auto) Cancelled 07/13/18 08:05 Immature Gran % 0.4 07/19/18 05:02 Neutrophils % 72.8 07/19/18 05:02 Band Neutrophils % Cancelled 07/13/18 08:05 Lymphocytes % 12.3 07/19/18 05:02 Atypical Lymphs % Cancelled 07/13/18 08:05 Monocytes % 10.6 07/19/18 05:02 Eosinophils % 3.7 07/19/18 05:02 Basophils % 0.2 07/19/18 05:02 Absolute Neutrophils 7.85 k/cumm (1.2-6.7) H 07/19/18 05:02 Absolute Lymphocytes 1.33 k/cumm (1.2-3.4) 07/19/18 05:02 Absolute Monocytes 1.14 k/cumm (0.11-0.7) H 07/19/18 05:02 Absolute Eosinophils 0.40 k/cumm (0.0-0.7) 07/19/18 05:02 Absolute Basophils 0.02 k/cumm (0.0-0.2) 07/19/18 05:02 Metamyelocytes Cancelled 07/13/18 08:05 Myelocytes Cancelled 07/13/18 08:05 Promyelocytes Cancelled 07/13/18 08:05 Nucleated RBCs Cancelled 07/13/18 08:05 Differential Comment Rbc morph reviewed 07/17/18 06:35 Other Cell Type Cancelled 07/13/18 08:05 RBC Morphology See below 07/17/18 06:35 Polychromasia Present 07/17/18 06:35 Hypochromasia 1+ 07/17/18 06:35 Poikilocytosis 1+ 07/17/18 06:35 Basophilic Stippling Cancelled 07/13/18 08:05 Anisocytosis 2+ 07/17/18 06:35 Microcytosis 2+ 07/06/18 07:20 Macrocytosis Cancelled 07/13/18 08:05 Spherocytes Cancelled 07/13/18 08:05 Target Cells Cancelled 07/13/18 08:05 Tear Drop Cells Cancelled 07/13/18 08:05 Ovalocytes 2+ 07/17/18 06:35 Stomatocytes Cancelled 07/13/18 08:05 [place]elles[place] Bodies Cancelled 07/13/18 08:05 [place] Cells Cancelled 07/13/18 08:05 Acanthocytes (Spur) Cancelled 07/13/18 08:05 Schistocytes Cancelled 07/13/18 08:05 D-Dimer 1329 ng/mlFEU (<500) H 07/07/18 21:15 Sodium 148 mmol/L (136-145) H 07/19/18 05:02 Potassium 4.0 mmol/L (3.5-5.1) D 07/19/18 05:02 Chloride 110 mmol/L (98-107) H 07/19/18 05:02 Carbon Dioxide 27.0 mmol/L (21.0-32.0) 07/19/18 05:02 Anion Gap 11.0 mmol/L (3-11) 07/19/18 05:02 BUN 8 mg/dL (7-18) 07/19/18 05:02 Creatinine 0.96 mg/dL (0.55-1.02) 07/19/18 05:02 Estimated GFR/1.73 m2 58.70 (mL/min/1.73m2) 07/19/18 05:02 Glucose 108 mg/dL (70-100) H 07/19/18 05:02 Lactate 1.0 mmol/L (0.6-1.4) 07/06/18 07:20 Calcium 8.7 mg/dL (8.5-10.1) 07/19/18 05:02 Magnesium 1.6 mg/dL (1.8-2.4) L 07/19/18 05:02 Total Bilirubin 0.3 mg/dL (0.2-1.0) 07/12/18 05:50 Conjugated Bilirubin 0.10 mg/dL (0.00-0.20) 07/12/18 05:50 AST 24 U/L (15-37) 07/12/18 05:50 ALT 47 U/L (12-78) 07/12/18 05:50 Alkaline Phosphatase 65 U/L (46-116) 07/12/18 05:50 Ammonia < 10 umol/L (11-32) L 07/15/18 10:20 Troponin I 0.02 ng/mL (0.00-0.06) 07/08/18 05:00 NT-Pro-B Natriuret Pep 1154 pg/mL (-299) H 07/07/18 21:15 Total Protein 4.6 g/dL (6.4-8.2) L 07/12/18 05:50 Albumin 2.2 g/dL (3.4-5.0) L 07/12/18 05:50 Lipase 252 U/L (73-393) 07/04/18 13:15 Procalcitonin <0.10 ng/mL (<or=1.5) 07/08/18 06:24 Calcitonin Cancelled 07/08/18 06:24 TSH 1.09 uIU/mL (0.358-3.74) 07/06/18 07:20 Urine Color Yellow (Yellow) 07/14/18 13:05 Urine Clarity Clear 07/14/18 13:05 Urine pH 5.0 (5-8) 07/14/18 13:05 Ur Specific [place] <= 1.005 (1.005-1.025) 07/14/18 13:05 Urine Protein Negative mg/dL (Negative) 07/14/18 13:05 Urine Ketones Negative mg/dL (Negative) 07/14/18 13:05 Urine Blood Small (Negative) H 07/14/18 13:05 Urine Nitrite Negative (Negative) 07/14/18 13:05 Urine Bilirubin Negative (Negative) 07/14/18 13:05 Urine Urobilinogen 0.2 EU/dL (Up TO 0.2) 07/14/18 13:05 Ur Leukocyte Esterase Negative (Negative) 07/14/18 13:05 Urine RBC 3-5 (0-2) H 07/14/18 13:05 Urine WBC 0-2 HPF (0-5) 07/14/18 13:05 Ur Epithelial Cells Rare HPF (Negative) 07/14/18 13:05 Urine Crystals Rare amorphous HPF (Negative) 07/14/18 13:05 Urine Bacteria Rare HPF (Negative) 07/14/18 13:05 Urine Casts Negative LPF (Negative) 07/14/18 13:05 Urine Mucus Trace (Negative) 07/14/18 13:05 Ur Culture Indicated? C&s done as ordered 07/14/18 13:05 Urine Glucose 100 mg/dL (Negative) 07/14/18 13:05 Stool Campylobacter PCR See comments 07/06/18 12:45 Stool Salmonella PCR See comments 07/06/18 12:45 Stool Shigella PCR See comments 07/06/18 12:45 Vancomycin Trough 19.1 ug/mL (10.0-20.0) 07/17/18 07:00 Shiga Toxin (PCR) See comments 07/06/18 12:45 Path Cons Comment See comment 07/06/18 07:20 Miscellaneous Test Cancelled 07/08/18 06:24
--- NOTE | 2018-07-19 07:22 | NUR.NOTE ---
19 Jul 2018, 0620hrs; This RN notified [facility], Richa Marshall, that Dr Rhodes (Surgeon) has spoken with Tali NOGUERA and has decided to cancel the surgical placement of a PEG Tube scheduled for this AM.Nursing Note:
--- NOTE | 2018-07-19 07:54 | PDOC.CMPRO ---
- If Service Date Differs Date of service: 07/19/18 Time of Service: 07:54 Care Management Progress Note S/O: Christie went to the OR today and a PEG tube was placed and returned to the ICU. No change in status today discharge disposition to be determined. Once the PEG tube is in use plan to restart her medications for schizophrenia and nutrition via PEG. She remains on IV antibiotics and palliative continues to consult. A: 63 yo disabled female admitted for hypotension, aspiration now with a PEG tube placement. P: Discharge disposition undetermined at this time, no change in status today patient remains ICU level of care. CM to continue to provide support ongoing discharge planning and disposition.
--- NOTE | 2018-07-19 08:30 | DI.RAD_ITS ---
SYMPTOM/DIAGNOSIS: TACHYPNEA PORTABLE CHEST: Comparison is made with 16 July 2018. A PICC line is again noted from the left arm with the tip in the lower SVC. Leads overlie the chest. The exam is limited by respiratory motion. The aorta is tortuous. No gross infiltrate or effusion is seen. IMPRESSION: Limited exam. No acute abnormality.
[2018-07-19] MEDS: Pantoprazole 40 MG VIAL IVP (08:38)
[2018-07-19] MEDS: PIPERACILLIN/TAZO 4.5 GM in Normal Saline 100 ML IVPB (08:38)
[2018-07-19] MEDS: Normal Saline Flush 10 ML SYR 20 ML IVP ×2 (08:38→21:39)
[2018-07-19] MEDS: Nystatin POWDER 60 GM JAR TP ×2 (08:40→21:39)
[2018-07-19] MEDS: MAGNESIUM SULFATE 2 GM/50 ML BAG IVPB (10:02)
--- NOTE | 2018-07-19 10:34 | DI.VRAD_ITS ---
EXAM: XR Chest, 1 View EXAM DATE/TIME: 07/19/2018 8:15 AM CLINICAL HISTORY: 63 years old, female; Signs and symptoms; Tachypnea; Additional info: Limited exam due to patient's mental status. PT unable to follow breathing instructions TECHNIQUE: XR of the chest, 1 view. COMPARISON: CR XR PORTABLE CHEST AP 07/16/2018 11:10 AM FINDINGS: Tubes, catheters and devices: The left PICC line is stable. Lungs: Unremarkable. No consolidation. Pleural space: Unremarkable. No pleural effusion. No pneumothorax. Heart/Mediastinum: Unremarkable. No cardiomegaly. Bones/joints: Unremarkable. Other findings: Patient rotation to the right. IMPRESSION: No acute findings. Dictated and Authenticated by: Valentín Oconnor MD. Ordering:TARYN Presley MD
--- NOTE | 2018-07-19 11:07 | NUR.NOTE ---
Pt is unable to follow commands, non verbal, sitting with eye open, withdraws to pain and responds to tactile stimuli, resistant to repositionint and to AM skin care and incont care, pushing against staff with moderate strength using all extremities. Does not respond to questions, stares at television or nurse without verbalizing. Nursing Note:
--- NOTE | 2018-07-19 11:54 | W.PM.PROGNOT ---
Date of Service Date of service: 07/19/18 Time of Service: 11:55 Assessment and Plan (1) Esophageal dysmotility: Start date: 07/19/18 Start time: 11:57 Current visit: Yes Status: Acute cxr ok pt less tachypnea not hypoxic case dw hospitalist and family notified looking to do case at 1:30 Exam Const Other: pt more interactive today case dw team in the morning Hospitalist aware of case and believe she is optimized based on her poor baseline GI Inspection: normal to inspection Palpation: soft Percussion: normal to percussion Auscultation: normal bowel sounds Objective Objective Clinical Data: Abnormal lab results 07/18/18 07/19/18 07/19/18 Range/Units 17:00 05:02 05:02 Hgb 10.0 L (12.0-15.5) g/dL Hct 31.9 L (36.0-46.0) % MCV 79.4 L (80-95) fL MCH 24.9 L (27.0-33.0) pg MCHC 31.3 L (32.0-36.0) g/dL RDW 19.0 H (11.7-14.6) % Absolute Neutrophils 7.85 H (1.2-6.7) k/cumm Absolute Monocytes 1.14 H (0.11-0.7) k/cumm Sodium 147 H 148 H (136-145) mmol/L Potassium 3.3 L (3.5-5.1) mmol/L Chloride 109 H 110 H (98-107) mmol/L Glucose 119 H 108 H (70-100) mg/dL Magnesium 1.6 L (1.8-2.4) mg/dL Vital Signs Temperature 36.2 C L 07/18/18 12:16 Temperature Source Tympanic 07/18/18 12:16 Pulse 82 07/19/18 08:00 Pulse Rhythm Regular 07/18/18 23:10 Pulse 107 H 07/19/18 10:00 Respiratory Rate 34 H 07/19/18 10:00 Respiratory Effort 07/19/18 08:35 Respiratory Depth Shallow 07/19/18 08:35 Respiratory Pattern Tachypnea 07/19/18 08:35 Blood Pressure 137/94 H 07/19/18 08:00 Blood Pressure Mean 105 07/19/18 08:00 Blood Pressure Position Left Lateral 07/16/18 12:15 Pulse Oximetry 98 07/19/18 10:00 Respiratory End-tidal CO2 34 07/07/18 15:01 Oxygen Delivery Method Room Air 07/19/18 04:46 Oxygen Flow Rate 0 07/19/18 04:46 Fraction of Inspired Oxygen (FIO2) 28 07/16/18 00:30 Pain Level 0 07/18/18 08:46 Comment 07/17/18 22:23 Intake & Output 07/18/18 07/18/18 07/19/18 11:59 23:59 11:59 Intake Total 2145.833 / 4443.334 2297.501 / 4443.334 290.5 / 290.5 Output Total 725 / 1525 800 / 1525 400 / 400 Balance 1420.833 / 2918.334 1497.501 / 2918.334 -109.5 / -109.5 Weight 101.2 kg 100.4 kg Intake: IV 2145.833 / 4443.334 2297.501 / 4443.334 290.5 / 290.5 Oral 0 / 0 0 / 0 0 / 0 Output: Urine 725 / 1525 800 / 1525 400 / 400 Other: Urine Color Yellow Yellow Yellow Urine Appearance Clear Clear Clear Urine Odor Normal Normal Comment Passing clear yellow urine QS. Passing clear yellow urine QS. Stool Occult Blood Negative Negative Stool Size Moderate Moderate Moderate Stool Characteristics Liquid Soft Liquid Liquid Voiding Methods Indwelling Catheter Indwelling Catheter Laboratory Results WBC 10.78 k/cumm (4.4-10.8) 07/19/18 05:02 RBC 4.02 m/cumm (4.00-5.20) 07/19/18 05:02 Hgb 10.0 g/dL (12.0-15.5) L 07/19/18 05:02 Hct 31.9 % (36.0-46.0) L 07/19/18 05:02 MCV 79.4 fL (80-95) L 07/19/18 05:02 MCH 24.9 pg (27.0-33.0) L 07/19/18 05:02 MCHC 31.3 g/dL (32.0-36.0) L 07/19/18 05:02 RDW 19.0 % (11.7-14.6) H 07/19/18 05:02 Plt Count 299 x1000/uL (130-400) 07/19/18 05:02 MPV 10.9 fL (8.0-11.0) 07/19/18 05:02 Abs Immat Gran (auto) Cancelled 07/13/18 08:05 Immature Gran % 0.4 07/19/18 05:02 Neutrophils % 72.8 07/19/18 05:02 Band Neutrophils % Cancelled 07/13/18 08:05 Lymphocytes % 12.3 07/19/18 05:02 Atypical Lymphs % Cancelled 07/13/18 08:05 Monocytes % 10.6 07/19/18 05:02 Eosinophils % 3.7 07/19/18 05:02 Basophils % 0.2 07/19/18 05:02 Absolute Neutrophils 7.85 k/cumm (1.2-6.7) H 07/19/18 05:02 Absolute Lymphocytes 1.33 k/cumm (1.2-3.4) 07/19/18 05:02 Absolute Monocytes 1.14 k/cumm (0.11-0.7) H 07/19/18 05:02 Absolute Eosinophils 0.40 k/cumm (0.0-0.7) 07/19/18 05:02 Absolute Basophils 0.02 k/cumm (0.0-0.2) 07/19/18 05:02 Metamyelocytes Cancelled 07/13/18 08:05 Myelocytes Cancelled 07/13/18 08:05 Promyelocytes Cancelled 07/13/18 08:05 Nucleated RBCs Cancelled 07/13/18 08:05 Differential Comment Rbc morph reviewed 07/17/18 06:35 Other Cell Type Cancelled 07/13/18 08:05 RBC Morphology See below 07/17/18 06:35 Polychromasia Present 07/17/18 06:35 Hypochromasia 1+ 07/17/18 06:35 Poikilocytosis 1+ 07/17/18 06:35 Basophilic Stippling Cancelled 07/13/18 08:05 Anisocytosis 2+ 07/17/18 06:35 Microcytosis 2+ 07/06/18 07:20 Macrocytosis Cancelled 07/13/18 08:05 Spherocytes Cancelled 07/13/18 08:05 Target Cells Cancelled 07/13/18 08:05 Tear Drop Cells Cancelled 07/13/18 08:05 Ovalocytes 2+ 07/17/18 06:35 Stomatocytes Cancelled 07/13/18 08:05 [place] Bodies Cancelled 07/13/18 08:05 [place] Cells Cancelled 07/13/18 08:05 Acanthocytes (Spur) Cancelled 07/13/18 08:05 Schistocytes Cancelled 07/13/18 08:05 D-Dimer 1329 ng/mlFEU (<500) H 07/07/18 21:15 Sodium 148 mmol/L (136-145) H 07/19/18 05:02 Potassium 4.0 mmol/L (3.5-5.1) D 07/19/18 05:02 Chloride 110 mmol/L (98-107) H 07/19/18 05:02 Carbon Dioxide 27.0 mmol/L (21.0-32.0) 07/19/18 05:02 Anion Gap 11.0 mmol/L (3-11) 07/19/18 05:02 BUN 8 mg/dL (7-18) 07/19/18 05:02 Creatinine 0.96 mg/dL (0.55-1.02) 07/19/18 05:02 Estimated GFR/1.73 m2 58.70 (mL/min/1.73m2) 07/19/18 05:02 Glucose 108 mg/dL (70-100) H 07/19/18 05:02 Lactate 1.0 mmol/L (0.6-1.4) 07/06/18 07:20 Calcium 8.7 mg/dL (8.5-10.1) 07/19/18 05:02 Magnesium 1.6 mg/dL (1.8-2.4) L 07/19/18 05:02 Total Bilirubin 0.3 mg/dL (0.2-1.0) 07/12/18 05:50 Conjugated Bilirubin 0.10 mg/dL (0.00-0.20) 07/12/18 05:50 AST 24 U/L (15-37) 07/12/18 05:50 ALT 47 U/L (12-78) 07/12/18 05:50 Alkaline Phosphatase 65 U/L (46-116) 07/12/18 05:50 Ammonia < 10 umol/L (11-32) L 07/15/18 10:20 Troponin I 0.02 ng/mL (0.00-0.06) 07/08/18 05:00 NT-Pro-B Natriuret Pep 1154 pg/mL (-299) H 07/07/18 21:15 Total Protein 4.6 g/dL (6.4-8.2) L 07/12/18 05:50 Albumin 2.2 g/dL (3.4-5.0) L 07/12/18 05:50 Lipase 252 U/L (73-393) 07/04/18 13:15 Procalcitonin <0.10 ng/mL (<or=1.5) 07/08/18 06:24 Calcitonin Cancelled 07/08/18 06:24 TSH 1.09 uIU/mL (0.358-3.74) 07/06/18 07:20 Urine Color Yellow (Yellow) 07/14/18 13:05 Urine Clarity Clear 07/14/18 13:05 Urine pH 5.0 (5-8) 07/14/18 13:05 Ur Specific [place] <= 1.005 (1.005-1.025) 07/14/18 13:05 Urine Protein Negative mg/dL (Negative) 07/14/18 13:05 Urine Ketones Negative mg/dL (Negative) 07/14/18 13:05 Urine Blood Small (Negative) H 07/14/18 13:05 Urine Nitrite Negative (Negative) 07/14/18 13:05 Urine Bilirubin Negative (Negative) 07/14/18 13:05 Urine Urobilinogen 0.2 EU/dL (Up TO 0.2) 07/14/18 13:05 Ur Leukocyte Esterase Negative (Negative) 07/14/18 13:05 Urine RBC 3-5 (0-2) H 07/14/18 13:05 Urine WBC 0-2 HPF (0-5) 07/14/18 13:05 Ur Epithelial Cells Rare HPF (Negative) 07/14/18 13:05 Urine Crystals Rare amorphous HPF (Negative) 07/14/18 13:05 Urine Bacteria Rare HPF (Negative) 07/14/18 13:05 Urine Casts Negative LPF (Negative) 07/14/18 13:05 Urine Mucus Trace (Negative) 07/14/18 13:05 Ur Culture Indicated? C&s done as ordered 07/14/18 13:05 Urine Glucose 100 mg/dL (Negative) 07/14/18 13:05 Stool Campylobacter PCR See comments 07/06/18 12:45 Stool Salmonella PCR See comments 07/06/18 12:45 Stool Shigella PCR See comments 07/06/18 12:45 Vancomycin Trough 19.1 ug/mL (10.0-20.0) 07/17/18 07:00 Shiga Toxin (PCR) See comments 07/06/18 12:45 Path Cons Comment See comment 07/06/18 07:20 Miscellaneous Test Cancelled 07/08/18 06:24
[2018-07-19] MEDS: POTASSIUM CHLORIDE/D5-0.45NACL 1,000 ML 75 MEQ IV (12:12)
--- NOTE | 2018-07-19 12:36 | PT.INTREAT ---
Date of service: 07/19/18 Time of Service: 10:15 PT Notes Inpatient Physical Therapy Treatment Note [facility] Date: 07/19/18 SUBJECTIVE: pt non verbal today. OBJECTIVE: [] THEREX: performed AAROM of U/LE. See flowsheet for details. ASSESSMENT: unable to follow directions, or verbalize anything today. Held on getting her OOB today, due to safety issues. PLAN: will continue POC as she is able to tolerate. TREATMENT CODE/TIME: 12 min. TPx1.
--- NOTE | 2018-07-19 12:39 | PTTR_ITS ---
Date of service: 07/19/18 Time of Service: 10:15 PT Notes Inpatient Physical Therapy Treatment Note [facility] Date: 07/19/18 SUBJECTIVE: pt non verbal today. OBJECTIVE: [] THEREX: performed AAROM of U/LE. See flowsheet for details. ASSESSMENT: unable to follow directions, or verbalize anything today. Held on getting her OOB today, due to safety issues. PLAN: will continue POC as she is able to tolerate. TREATMENT CODE/TIME: 12 min. TPx1.
--- NOTE | 2018-07-19 14:34 | W.PM.OP ---
Date of service: 07/19/18 Time of Service: 14:34 Operative Note DATE OF PROCEDURE: 07/12/18 PRE-OP DIAGNOSIS: Dysphagia, esophageal dysmotility POST-OP DIAGNOSIS: other (Schatzki's ring) PROCEDURE: PEG SURGEON: Leonidas Mcclellan ASSISTING SURGEON: Jax Morales ANESTHESIA: GETA ESTIMATED BLOOD LOSS: 2 PATHOLOGY: none sent Patient was transported to: PACU Patient's condition: stable Procedure Description: Patient was seen preoperatively and had a potassium of 2.5 that need to be corrected preoperatively to 4. This was done overnight and in the morning on examination patient was found to be tachypneic and hypoxic requiring some intervention prior to clearance and bring the patient for her operation today. Once patient was ready for surgery at approximately 1:30pm this afternoon patient was brought to the operating room and placed on the operating table in supine fashion. Patient's sister Netta who is the power of trust and estates attorney gave consent all risks benefits and alternatives were discussed in detail with her. Patient underwent general anesthesia and endotracheal intubation. A thorough timeout was done with entire OR staff present. Patient had the abdomen prepped and draped in a sterile fashion. Local anesthesia was infiltrated in the area and adequate anesthesia was achieved. Patient had the upper endoscopy performed and entered into the stomach with complete distention and light reflex through the abdominal wall the proper position in the left upper quadrant was chosen. The area that local had been infiltrated had a 1.5 cm incision with an 11 blade. The needle was inserted in to the abdominal wall entering the anterior stomach where the scope visualized the needle coming in. At this point the insert of the needle was removed the snare was placed around the Angiocath and the guidewire was entered into the stomach where it was snared and brought out through the mouth with the endoscope. The guidewire was attached to the PEG tube and this was then pulled through the mouth down the esophagus into the stomach via the incision made in the anterior abdominal wall. The scope was reinserted and followed the tube down into the abdomen and confirmed its placement at 2.5 cm at the skin of the abdominal wall. Patient had a bumper brought down to the skin level to secure it at 2.5 cm and sterile dressing was applied. A thorough debridement was done with the entire or staff present. Patient's sister Netta was contacted by phone of intraoperative findings and procedures. Patient was extubated did well and moved from PACU to back to the ICU postoperatively
--- NOTE | 2018-07-19 14:40 | ROE_ITS ---
Date of service: 07/19/18 Time of Service: 14:34 Operative Note DATE OF PROCEDURE: 07/12/18 PRE-OP DIAGNOSIS: Dysphagia, esophageal dysmotility POST-OP DIAGNOSIS: other (Schatzki's ring) PROCEDURE: PEG SURGEON: Leonidas Mcclellan ASSISTING SURGEON: Jax Morales ANESTHESIA: GETA ESTIMATED BLOOD LOSS: 2 PATHOLOGY: none sent Patient was transported to: PACU Patient's condition: stable Procedure Description: Patient was seen preoperatively and had a potassium of 2.5 that need to be corrected preoperatively to 4. This was done overnight and in the morning on examination patient was found to be tachypneic and hypoxic requiring some intervention prior to clearance and bring the patient for her operation today. Once patient was ready for surgery at approximately 1:30pm this afternoon patient was brought to the operating room and placed on the operating table in supine fashion. Patient's sister Netta who is the power of attorney law clerk gave consent all risks benefits and alternatives were discussed in d etail with her. Patient underwent general anesthesia and endotracheal intubation. A thorough timeout was done with entire OR staff present. Patient had the abdomen prepped and draped in a sterile fashion. Local anesthesia was infiltrated in the area and adequate anesthesia was achieved. Patient had the upper endoscopy performed and entered into the stomach with complete distention and light reflex through the abdominal wall the proper position in the left upper quadrant was chosen. The area that local had been infiltrated had a 1.5 cm incision with an 11 blade. The needle was inserted in to the abdominal wall entering the anterior stomach where the scope visualized the needle coming in. At this point the insert of the needle was removed the snare was placed around the Angiocath and the guidewire was entered into the stomach where it was snared and brought out through the mouth with the endoscope. The guidewire was attached to the PEG tube and this was then pulled through the mouth down the esophagus into the stomach via the incision made in the anterior abdominal wall. The scope was reinserted and followed the tube down into the abdomen and confirmed its placement at 2.5 cm at the skin of the abdominal wall. Patient had a bumper brought down to the skin level to secure it at 2.5 cm and sterile dressing was applied. A thorough debridement was done with the entire or staff present. Patient's sister Netta was contacted by phone of intraoperative findings and procedures. Patient was extubated did well and moved from PACU to back to the ICU postoperatively
[2018-07-19] MEDS: Normal Saline 500 ML 30 ML IV (15:40)
--- NOTE | 2018-07-19 15:58 | W.PM.PROGNOT ---
Date of Service Date of service: 07/19/18 Time of Service: 15:58 Assessment and Plan (1) Dysphagia: Current visit: Yes Status: Acute History of benign distal esophageal stricture by EGD, s/p dilation in 2007. There was also noted Unprotected aspiration as well as large GERD with evidence of esophagitis. However, repeat EGD normal and Barium Swallow with no evidence of stricture, but with esophageal dysmotility and retention of barium in the esophagus. Patient has been under treatment for Aspiration pneumonia - s/p PEG tube placement today. Maintain NPO status and initiate Tube Feeds tomorrow. For now will reinitiate home meds via Peg Tube, and continue aspiration precautions. Will also start on short acting Cardizem, and consider QHS Imipramine. Continue treatment of GERD with IV PPI therapy. Will ultimately need outpatient manometry when mental status is back to baseline, and patient is able to cooperate. Of note, currently also having problems with initiation of swallowing which appears new and may be related to her altered mental status and holding of her psych medications. Her medications are being restarted. (2) Esophageal dysmotility: Current visit: Yes Status: Acute Treatment as above. (3) Hypotension: Current visit: Yes Status: Resolved Initially, hypotensiven to the point of requiring pressor support, and with evidence of end-organ damage with KJ and elevation in Lactate - unknown etiology. Potential Dehydration in the setting of initiation of HCTZ vs. Sepsis - although no evidence of infiltrate or acute infection initially. Does not appear to have been adrenal insufficiency, with steroids weaned off. Echo without clear cardiogenic etiology, and no persistent arrhythmias on monitor. Aspiration pneumonia/recurrent aspiration events now seem like the most likely scenario. (4) Altered mental status: Current visit: Yes Status: Acute Initially described as episodes of confusion, 'staring', near unresponsive state while awake, with potential post-ictal like state - now appears different as patient's affect and verbal responsiveness have declined significantly. No evidence of active infection - may be related to side-effect of Keppra (depression/confusion), now d/c'd. May also be related to witholding of chronic psychiatric medications - reinitiated today. Ultmately cannot rule out seizure activity as potential etiology as well, although EEG and MRI X2 were negative. 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 Unsure if her symptoms represent waxing and waning encephalopathy in the setting of acute illness vs. seizure activity. (5) Bradycardia: Current visit: No Status: Acute Abnormally normal heart rate during initial bout of hypotension, then frankly bradycardic - reportedly had a bout of junctional rhythm as well. However, review of EKG by Cardiology/Electrophysiology with note of Sinus Bradycardia. Avoid jovan agents - also with tachycardia noted. 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 Cardiology is aware if patient becomes unstable. (6) Hypernatremia: Current visit: Yes Status: Acute Mild. Free Water Deficit Calculated at 3-4 L. Will start on low quantity free water dispense via Peg Tube. For initiation of Tube Feeds soon as well. Monitor. (7) KJ (acute kidney injury): Current visit: Yes Status: Resolved Creatinine improved and KJ resolved. (8) Schizophrenia: Current visit: No Status: Chronic Restart home meds as above. (9) DVT prophylaxis: Current visit: Yes Status: Acute Restart Enoxaparin tomorrow - on hold for PEG Tube placement today. (10) Advance directive on file: Current visit: Yes Status: Acute DNR/DNI. Subjective Interval history since last seen: 63-year-old woman with history of cognitive delay and Hypertension, admitted from [facility] Emergency Department with a diagnosis of Hypotension. Ms. Gardiner has a history of cognitive dysfunction, HTN, GERD, and Schizophrenia. She was initially sent to the emergency room because of several days of nonspecific weakness. In the ED she was noted to be significantly hypotensive with blood pressures in the 60s systolic, but without tachycardia. She was given fluid resuscitation and started on levophed. Initial laboratory evaluation of note for leukocytosis, low-grade pyuria (5-10 white cells), negative chest x-ray and CT of the abdomen that was unremarkable except for a known cyst in the right lower quadrant. She was then referred for admission for further evaluation and treatment. Since her admission Blood pressure eventually improved and she has remained off pressor support after recurrence of her hypotension, thought likely secondary to aspiration pneumonia/pneumonitis. She has remained afebrile. Her Urine and Blood Cultures remained negative, and her C. Diff and Fecal Leukocytes were negative as well. CT of the chest and ECHO have been normal. She has however shown evidence of difficulty with swallowing, and a Barium Swallow revealed evidence of barium retention and esophageal dysmotility. Subsequent EGD was negative. Mrs. Gardiner has remained NPO and without oral meds or food. She has successfully undergone PEG tube placement today, and appears stable post procedure. Still not at her baseline mental status. No other events reported. Remains afebrile. Exam Narrative Exam Narrative: General: Patient appears stable, awake, and alert, no longer appropriately responsive. NAD. Neck: Supple CV: Regular, nontachycardic, S1S2, No rubs, murmurs, or gallops. Pulmonary: Essentially Clear to auscultation bilaterally, no crackles, wheezing, or rhonchi. Breath Sounds decreased overall. Abdomen: + Bowel Sounds, soft, nontender, nondistended Vascular: No lower extremity edema Objective Objective Clinical Data: Abnormal lab results 07/18/18 07/19/18 07/19/18 Range/Units 17:00 05:02 05:02 Hgb 10.0 L (12.0-15.5) g/dL Hct 31.9 L (36.0-46.0) % MCV 79.4 L (80-95) fL MCH 24.9 L (27.0-33.0) pg MCHC 31.3 L (32.0-36.0) g/dL RDW 19.0 H (11.7-14.6) % Absolute Neutrophils 7.85 H (1.2-6.7) k/cumm Absolute Monocytes 1.14 H (0.11-0.7) k/cumm Sodium 147 H 148 H (136-145) mmol/L Potassium 3.3 L (3.5-5.1) mmol/L Chloride 109 H 110 H (98-107) mmol/L Glucose 119 H 108 H (70-100) mg/dL Magnesium 1.6 L (1.8-2.4) mg/dL Vital Signs Temperature 35.8 C L 07/19/18 14:45 Temperature Source Tympanic 07/19/18 14:45 Pulse 76 07/19/18 14:45 Pulse Rhythm Regular 07/18/18 23:10 Pulse 97 H 07/19/18 13:20 Respiratory Rate 26 H 07/19/18 14:45 Respiratory Effort 07/19/18 14:45 Respiratory Depth Shallow 07/19/18 14:45 Respiratory Pattern Tachypnea 07/19/18 14:45 Blood Pressure 114/74 07/19/18 14:45 Blood Pressure Mean 87 07/19/18 14:45 Blood Pressure Position Supine 07/19/18 14:45 Pulse Oximetry 97 07/19/18 14:45 Respiratory End-tidal CO2 34 07/07/18 15:01 Oxygen Delivery Method Room Air 07/19/18 14:45 Oxygen Flow Rate 0 07/19/18 14:45 Fraction of Inspired Oxygen (FIO2) 28 07/16/18 00:30 Pain Level 0 07/18/18 08:46 Comment 07/17/18 22:23 Intake & Output 07/18/18 07/19/18 07/19/18 23:59 11:59 23:59 Intake Total 2297.501 / 4443.334 290.5 / 1418.0 1127.5 / 1418.0 Output Total 800 / 1525 400 / 950 550 / 950 Balance 1497.501 / 2918.334 -109.5 / 468.0 577.5 / 468.0 Weight 100.4 kg Intake: IV 2297.501 / 4443.334 290.5 / 1418.0 1127.5 / 1418.0 Oral 0 / 0 0 / 0 Output: Urine 800 / 1525 400 / 950 550 / 950 Other: Urine Color Yellow Yellow Yellow Urine Appearance Clear Clear Urine Odor Normal Normal Comment Passing clear yellow urine QS. Passing clear yellow urine QS. Stool Occult Blood Negative Stool Size Moderate Moderate Small Stool Characteristics Soft Liquid Liquid Liquid Brown Brown Green Voiding Methods Indwelling Catheter Indwelling Catheter Laboratory Results WBC 10.78 k/cumm (4.4-10.8) 07/19/18 05:02 RBC 4.02 m/cumm (4.00-5.20) 07/19/18 05:02 Hgb 10.0 g/dL (12.0-15.5) L 07/19/18 05:02 Hct 31.9 % (36.0-46.0) L 07/19/18 05:02 MCV 79.4 fL (80-95) L 07/19/18 05:02 MCH 24.9 pg (27.0-33.0) L 07/19/18 05:02 MCHC 31.3 g/dL (32.0-36.0) L 07/19/18 05:02 RDW 19.0 % (11.7-14.6) H 07/19/18 05:02 Plt Count 299 x1000/uL (130-400) 07/19/18 05:02 MPV 10.9 fL (8.0-11.0) 07/19/18 05:02 Abs Immat Gran (auto) Cancelled 07/13/18 08:05 Immature Gran % 0.4 07/19/18 05:02 Neutrophils % 72.8 07/19/18 05:02 Band Neutrophils % Cancelled 07/13/18 08:05 Lymphocytes % 12.3 07/19/18 05:02 Atypical Lymphs % Cancelled 07/13/18 08:05 Monocytes % 10.6 07/19/18 05:02 Eosinophils % 3.7 07/19/18 05:02 Basophils % 0.2 07/19/18 05:02 Absolute Neutrophils 7.85 k/cumm (1.2-6.7) H 07/19/18 05:02 Absolute Lymphocytes 1.33 k/cumm (1.2-3.4) 07/19/18 05:02 Absolute Monocytes 1.14 k/cumm (0.11-0.7) H 07/19/18 05:02 Absolute Eosinophils 0.40 k/cumm (0.0-0.7) 07/19/18 05:02 Absolute Basophils 0.02 k/cumm (0.0-0.2) 07/19/18 05:02 Metamyelocytes Cancelled 07/13/18 08:05 Myelocytes Cancelled 07/13/18 08:05 Promyelocytes Cancelled 07/13/18 08:05 Nucleated RBCs Cancelled 07/13/18 08:05 Differential Comment Rbc morph reviewed 07/17/18 06:35 Other Cell Type Cancelled 07/13/18 08:05 RBC Morphology See below 07/17/18 06:35 Polychromasia Present 07/17/18 06:35 Hypochromasia 1+ 07/17/18 06:35 Poikilocytosis 1+ 07/17/18 06:35 Basophilic Stippling Cancelled 07/13/18 08:05 Anisocytosis 2+ 07/17/18 06:35 Microcytosis 2+ 07/06/18 07:20 Macrocytosis Cancelled 07/13/18 08:05 Spherocytes Cancelled 07/13/18 08:05 Target Cells Cancelled 07/13/18 08:05 Tear Drop Cells Cancelled 07/13/18 08:05 Ovalocytes 2+ 07/17/18 06:35 Stomatocytes Cancelled 07/13/18 08:05 Telles-Farner Bodies Cancelled 07/13/18 08:05 [place] Cells Cancelled 07/13/18 08:05 Acanthocytes (Spur) Cancelled 07/13/18 08:05 Schistocytes Cancelled 07/13/18 08:05 D-Dimer 1329 ng/mlFEU (<500) H 07/07/18 21:15 Sodium 148 mmol/L (136-145) H 07/19/18 05:02 Potassium 4.0 mmol/L (3.5-5.1) D 07/19/18 05:02 Chloride 110 mmol/L (98-107) H 07/19/18 05:02 Carbon Dioxide 27.0 mmol/L (21.0-32.0) 07/19/18 05:02 Anion Gap 11.0 mmol/L (3-11) 07/19/18 05:02 BUN 8 mg/dL (7-18) 07/19/18 05:02 Creatinine 0.96 mg/dL (0.55-1.02) 07/19/18 05:02 Estimated GFR/1.73 m2 58.70 (mL/min/1.73m2) 07/19/18 05:02 Glucose 108 mg/dL (70-100) H 07/19/18 05:02 Lactate 1.0 mmol/L (0.6-1.4) 07/06/18 07:20 Calcium 8.7 mg/dL (8.5-10.1) 07/19/18 05:02 Magnesium 1.6 mg/dL (1.8-2.4) L 07/19/18 05:02 Total Bilirubin 0.3 mg/dL (0.2-1.0) 07/12/18 05:50 Conjugated Bilirubin 0.10 mg/dL (0.00-0.20) 07/12/18 05:50 AST 24 U/L (15-37) 07/12/18 05:50 ALT 47 U/L (12-78) 07/12/18 05:50 Alkaline Phosphatase 65 U/L (46-116) 07/12/18 05:50 Ammonia < 10 umol/L (11-32) L 07/15/18 10:20 Troponin I 0.02 ng/mL (0.00-0.06) 07/08/18 05:00 NT-Pro-B Natriuret Pep 1154 pg/mL (-299) H 07/07/18 21:15 Total Protein 4.6 g/dL (6.4-8.2) L 07/12/18 05:50 Albumin 2.2 g/dL (3.4-5.0) L 07/12/18 05:50 Lipase 252 U/L (73-393) 07/04/18 13:15 Procalcitonin <0.10 ng/mL (<or=1.5) 07/08/18 06:24 Calcitonin Cancelled 07/08/18 06:24 TSH 1.09 uIU/mL (0.358-3.74) 07/06/18 07:20 Urine Color Yellow (Yellow) 07/14/18 13:05 Urine Clarity Clear 07/14/18 13:05 Urine pH 5.0 (5-8) 07/14/18 13:05 Ur Specific [place] <= 1.005 (1.005-1.025) 07/14/18 13:05 Urine Protein Negative mg/dL (Negative) 07/14/18 13:05 Urine Ketones Negative mg/dL (Negative) 07/14/18 13:05 Urine Blood Small (Negative) H 07/14/18 13:05 Urine Nitrite Negative (Negative) 07/14/18 13:05 Urine Bilirubin Negative (Negative) 07/14/18 13:05 Urine Urobilinogen 0.2 EU/dL (Up TO 0.2) 07/14/18 13:05 Ur Leukocyte Esterase Negative (Negative) 07/14/18 13:05 Urine RBC 3-5 (0-2) H 07/14/18 13:05 Urine WBC 0-2 HPF (0-5) 07/14/18 13:05 Ur Epithelial Cells Rare HPF (Negative) 07/14/18 13:05 Urine Crystals Rare amorphous HPF (Negative) 07/14/18 13:05 Urine Bacteria Rare HPF (Negative) 07/14/18 13:05 Urine Casts Negative LPF (Negative) 07/14/18 13:05 Urine Mucus Trace (Negative) 07/14/18 13:05 Ur Culture Indicated? C&s done as ordered 07/14/18 13:05 Urine Glucose 100 mg/dL (Negative) 07/14/18 13:05 Stool Campylobacter PCR See comments 07/06/18 12:45 Stool Salmonella PCR See comments 07/06/18 12:45 Stool Shigella PCR See comments 07/06/18 12:45 Vancomycin Trough 19.1 ug/mL (10.0-20.0) 07/17/18 07:00 Shiga Toxin (PCR) See comments 07/06/18 12:45 Path Cons Comment See comment 07/06/18 07:20 Miscellaneous Test Cancelled 07/08/18 06:24
--- NOTE | 2018-07-19 21:08 | NUR.NOTE ---
Nursing Note: Patient transferred from ICU to medsur unit without incident, patient noted to have campbell catheter in place, currently on telemetry monitoring, all belongings transferred with patient.
--- NOTE | 2018-07-19 21:24 | NUR.NOTE ---
Nursing Note: Oral suctioning performed for patient comfort, tolerated well.
[2018-07-19] MEDS: Donepezil 5 MG TAB 10 MG UD (21:37)
[2018-07-19] MEDS: OLANZapine 5 MG TAB 10 MG UD (21:38)
[2018-07-19] MEDS: Memantine 5 MG TAB 10 MG UD (21:42)
--- NOTE | 2018-07-19 23:25 | NUR.NOTE ---
Nursing Note: Oral suctioning performed on patient, she is having a significant amount of secretions, which she is not able to manage independently.
[2018-07-20] VITALS (20 sets, daily range): BP systolic 150–175; BP diastolic 100–140; PULSE 81–168; RESP 2–36; TEMP 36.6–37.7; O2SAT 95–98
[2018-07-20] MEDS: Levalbuterol 1.25 MG/3 ML UPD VIAL UPD ×6 (00:14→20:39)
--- NOTE | 2018-07-20 01:27 | NUR.NOTE ---
Nursing Note: The patient required oral suctioning again. Charge nurse aware.
[2018-07-20] MEDS: POTASSIUM CHLORIDE/D5-0.45NACL 1,000 ML 75 MEQ IV ×2 (02:40→13:47)
--- NOTE | 2018-07-20 03:49 | NUR.NOTE ---
Nursing Note: Patient requires additional oral suctioning for inability to manage standard secretions.
[2018-07-20 07:01] LABS: Abs Immature Grans 0.03 k/cumm (0.0-0.09); Absolute Basophil Count 0.02 k/cumm (0.0-0.2); Absolute Lymphocyte Count 1.18 k/cumm (1.2-3.4); Absolute Monocyte Count 0.99 k/cumm (0.11-0.7); Basophils % 0.2; Eosinophils % 2.6; HCT 30.6 % (36.0-46.0); HGB 9.6 g/dL (12.0-15.5); Immature Grans % 0.3; Lymphocytes % 10.4; Mean Corp. HGB Concentration 31.4 g/dL (32.0-36.0); Mean Corpuscular Hemoglobin 25.1 pg (27.0-33.0); Mean Corpuscular Volume 79.9 fL (80-95); Mean Platelet Volume 11.4 fL (8.0-11.0); Monocytes % 8.7; Neutrophils % 77.8; Platelet Count 273 x1000/uL (130-400); RBC 3.83 m/cumm (4.00-5.20); RBC Distribution Width 19.2 % (11.7-14.6); White Blood Cell Count 11.37 k/cumm (4.4-10.8)
[2018-07-20 07:02] LABS: Absolute Neutrophil Count 8.85 k/cumm (1.2-6.7)
[2018-07-20 07:14] LABS: Anion Gap 6.5 mmol/L (3-11); BUN 6 mg/dL (7-18); CO2 26.5 mmol/L (21.0-32.0); CREATININE 0.91 mg/dL (0.55-1.02); Calcium 8.6 mg/dL (8.5-10.1); Chloride 110 mmol/L (98-107); Glucose 115 mg/dL (70-100); Magnesium 1.8 mg/dL (1.8-2.4); Potassium 3.6 mmol/L (3.5-5.1); Sodium 143 mmol/L (136-145)
[2018-07-20 07:20] LABS: Vancomycin, Trough 18.9 ug/mL (10.0-20.0)
--- NOTE | 2018-07-20 07:28 | PGE_ITS ---
Date of Service Date of service: 07/20/18 Time of Service: 07:26 Assessment and Plan (1) Gastrostomy in place: Start date: 07/20/18 Start time: 07:30 Current visit: Yes Status: Acute PEG placed yesterday pt simon well TF started surgery will S/O if any new issues please reconsult Subjective Patient reports: no new complaints Interval history since last seen: cont to have upper airway secretions si gnificant to be concerned for aspiration Exam Const Other: pt has lucid moments and her reaction amd affect are variable GI Inspection: normal to inspection Palpation: soft Percussion: normal to percussion Auscultation: normal bowel sounds Abdomen image: 1. peg site CDI Objective Objective Clinical Data: Abnormal lab results 07/20/18 07/20/18 Range/Units 06:17 06:17 WBC 11.37 H (4.4-10.8) k/cumm RBC 3.83 L (4.00-5.20) m/cumm Hgb 9.6 L (12.0-15.5) g/dL Hct 30.6 L (36.0-46.0) % MCV 79.9 L (80-95) fL MCH 25.1 L (27.0-33.0) pg MCHC 31.4 L (32.0-36.0) g/dL RDW 19.2 H (11.7-14.6) % MPV 11.4 H (8.0-11.0) fL Absolute Neutrophils 8.85 H (1.2-6.7) k/cumm Absolute Lymphocytes 1.18 L (1.2-3.4) k/cumm Absolute Monocytes 0.99 H (0.11-0.7) k/cumm Chloride 110 H (98-107) mmol/L BUN 6 L (7-18) mg/dL Glucose 115 H (70-100) mg/dL Vital Signs Temperature 36.9 C 07/20/18 04:11 Temperature Source Tympanic 07/20/18 04:11 Pulse 82 07/20/18 04:29 Pulse Rhythm Regular 07/19/18 22:32 Pulse 90 07/19/18 16:00 Respiratory Rate 18 07/20/18 04:29 Respiratory Effort Non-Labored 07/19/18 22:32 Respiratory Depth Shallow 07/19/18 22:32 Respiratory Pattern Normal 07/19/18 22:32 Blood Pressure 153/105 H 07/20/18 04:11 Blood Pressure Mean 87 07/19/18 14:45 Blood Pressure Position Supine 07/19/18 14:45 Pulse Oximetry 97 07/20/18 04:29 Respiratory End-tidal CO2 34 07/07/18 15:01 Oxygen Delivery Method Room Air 07/20/18 04:29 Oxygen Flow Rate 0 07/20/18 04:29 Fraction of Inspired Oxygen (FIO2) 28 07/16/18 00:30 Pain Level 0 07/18/18 08:46 Comment 07/20/18 00:20 Intake & Output 07/19/18 07/19/18 07/20/18 11:59 23:59 11:59 Intake Total 290.5 / 1609.5 1319.0 / 1609.5 902.5 / 902.5 Output Total 400 / 950 550 / 950 370 / 370 Balance -109.5 / 659.5 769.0 / 659.5 532.5 / 532.5 Weight 100.4 kg 100.4 kg Intake: IV 290.5 / 1609.5 1319.0 / 1609.5 902.5 / 902.5 Oral 0 / 0 0 / 0 Output: Urine 400 / 950 550 / 950 250 / 250 Output, Residual 120 / 120 Other: Urine Color Yellow Yellow Yellow Urine Appearance Clear Clear Clear Urine Odor Normal Comment Passing clear yellow urine QS. Stool Size Moderate Small Stool Characteristics Liquid Liquid Brown Brown Green Voiding Methods Indwelling Catheter Laboratory Results WBC 11.37 k/cumm (4.4-10.8) H 07/20/18 06:17 RBC 3.83 m/cumm (4.00-5.20) L 07/20/18 06:17 Hgb 9.6 g/dL (12.0-15.5) L 07/20/18 06:17 Hct 30.6 % (36.0-46.0) L 07/20/18 06:17 MCV 79.9 fL (80-95) L 07/20/18 06:17 MCH 25.1 pg (27.0-33.0) L 07/20/18 06:17 MCHC 31.4 g/dL (32.0-36.0) L 07/20/18 06:17 RDW 19.2 % (11.7-14.6) H 07/20/18 06:17 Plt Count 273 x1000/uL (130-400) 07/20/18 06:17 MPV 11.4 fL (8.0-11.0) H 07/20/18 06:17 Abs Immat Gran (auto) Cancelled 07/13/18 08:05 Immature Gran % 0.3 07/20/18 06:17 Neutrophils % 77.8 07/20/18 06:17 Band Neutrophils % Cancelled 07/13/18 08:05 Lymphocytes % 10.4 07/20/18 06:17 Atypical Lymphs % Cancelled 07/13/18 08:05 Monocytes % 8.7 07/20/18 06:17 Eosinophils % 2.6 07/20/18 06:17 Basophils % 0.2 07/20/18 06:17 Absolute Neutrophils 8.85 k/cumm (1.2-6.7) H 07/20/18 06:17 Absolute Lymphocytes 1.18 k/cumm (1.2-3.4) L 07/20/18 06:17 Absolute Monocytes 0.99 k/cumm (0.11-0.7) H 07/20/18 06:17 Absolute Eosinophils 0.30 k/cumm (0.0-0.7) 07/20/18 06:17 Absolute Basophils 0.02 k/cumm (0.0-0.2) 07/20/18 06:17 Metamyelocytes Cancelled 07/13/18 08:05 Myelocytes Cancelled 07/13/18 08:05 Promyelocytes Cancelled 07/13/18 08:05 Nucleated RBCs Cancelled 07/13/18 08:05 Differential Comment Rbc morph reviewed 07/17/18 06:35 Other Cell Type Cancelled 07/13/18 08:05 RBC Morphology See below 07/17/18 06:35 Polychromasia Present 07/17/18 06:35 Hypochromasia 1+ 07/17/18 06:35 Poikilocytosis 1+ 07/17/18 06:35 Basophilic Stippling Cancelled 07/13/18 08:05 Anisocytosis 2+ 07/17/18 06:35 Microcytosis 2+ 07/06/18 07:20 Macrocytosis Cancelled 07/13/18 08:05 Spherocytes Cancelled 07/13/18 08:05 Target Cells Cancelled 07/13/18 08:05 Tear Drop Cells Cancelled 07/13/18 08:05 Ovalocytes 2+ 07/17/18 06:35 Stomatocytes Cancelled 07/13/18 08:05 Telles-[place] Bodies Cancelled 07/13/18 08:05 [place] Cells Cancelled 07/13/18 08:05 Acanthocytes (Spur) Cancelled 07/13/18 08:05 Schistocytes Cancelled 07/13/18 08:05 D-Dimer 1329 ng/mlFEU (<500) H 07/07/18 21:15 Sodium 143 mmol/L (136-145) 07/20/18 06:17 Potassium 3.6 mmol/L (3.5-5.1) 07/20/18 06:17 Chloride 110 mmol/L (98-107) H 07/20/18 06:17 Carbon Dioxide 26.5 mmol/L (21.0-32.0) 07/20/18 06:17 Anion Gap 6.5 mmol/L (3-11) 07/20/18 06:17 BUN 6 mg/dL (7-18) L 07/20/18 06:17 Creatinine 0.91 mg/dL (0.55-1.02) 07/20/18 06:17 Estimated GFR/1.73 m2 >= 60.00 (mL/min/1.73m2) 07/20/18 06:17 Glucose 115 mg/dL (70-100) H 07/20/18 06:17 Lactate 1.0 mmol/L (0.6-1.4) 07/06/18 07:20 Calcium 8.6 mg/dL (8.5-10.1) 07/20/18 06:17 Magnesium 1.8 mg/dL (1.8-2.4) 07/20/18 06:17 Total Bilirubin 0.3 mg/dL (0.2-1.0) 07/12/18 05:50 Conjugated Bilirubin 0.10 mg/dL (0.00-0.20) 07/12/18 05:50 AST 24 U/L (15-37) 07/12/18 05:50 ALT 47 U/L (12-78) 07/12/18 05:50 Alkaline Phosphatase 65 U/L (46-116) 07/12/18 05:50 Ammonia < 10 umol/L (11-32) L 07/15/18 10:20 Troponin I 0.02 ng/mL (0.00-0.06) 07/08/18 05:00 NT-Pro-B Natriuret Pep 1154 pg/mL (-299) H 07/07/18 21:15 Total Protein 4.6 g/dL (6.4-8.2) L 07/12/18 05:50 Albumin 2.2 g/dL (3.4-5.0) L 07/12/18 05:50 Lipase 252 U/L (73-393) 07/04/18 13:15 Procalcitonin <0.10 ng/mL (<or=1.5) 07/08/18 06:24 Calcitonin Cancelled 07/08/18 06:24 TSH 1.09 uIU/mL (0.358-3.74) 07/06/18 07:20 Urine Color Yellow (Yellow) 07/14/18 13:05 Urine Clarity Clear 07/14/18 13:05 Urine pH 5.0 (5-8) 07/14/18 13:05 Ur Specific [place] <= 1.005 (1.005-1.025) 07/14/18 13:05 Urine Protein Negative mg/dL (Negative) 07/14/18 13:05 Urine Ketones Negative mg/dL (Negative) 07/14/18 13:05 Urine Blood Small (Negative) H 07/14/18 13:05 Urine Nitrite Negative (Negative) 07/14/18 13:05 Urine Bilirubin Negative (Negative) 07/14/18 13:05 Urine Urobilinogen 0.2 EU/dL (Up TO 0.2) 07/14/18 13:05 Ur Leukocyte Esterase Negative (Negative) 07/14/18 13:05 Urine RBC 3-5 (0-2) H 07/14/18 13:05 Urine WBC 0-2 HPF (0-5) 07/14/18 13:05 Ur Epithelial Cells Rare HPF (Negative) 07/14/18 13:05 Urine Crystals Rare amorphous HPF (Negative) 07/14/18 13:05 Urine Bacteria Rare HPF (Negative) 07/14/18 13:05 Urine Casts Negative LPF (Negative) 07/14/18 13:05 Urine Mucus Trace (Negative) 07/14/18 13:05 Ur Culture Indicated? C&s done as ordered 07/14/18 13:05 Urine Glucose 100 mg/dL (Negative) 07/14/18 13:05 Stool Campylobacter PCR See comments 07/06/18 12:45 Stool Salmonella PCR See comments 07/06/18 12:45 Stool Shigella PCR See comments 07/06/18 12:45 Vancomycin Trough 19.1 ug/mL (10.0-20.0) 07/17/18 07:00 Shiga Toxin (PCR) See comments 07/06/18 12:45 Path Cons Comment See comment 07/06/18 07:20 Miscellaneous Test Cancelled 07/08/18 06:24
[2018-07-20] MEDS: Nystatin POWDER 60 GM JAR TP ×2 (08:00→20:42)
[2018-07-20] MEDS: Enoxaparin 40 MG/0.4 ML SYR SC (09:08)
[2018-07-20] MEDS: Normal Saline Flush 10 ML SYR 20 ML IVP ×2 (09:09→20:40)
[2018-07-20] MEDS: Pantoprazole 40 MG VIAL IVP (09:09)
[2018-07-20] MEDS: Memantine 5 MG TAB 10 MG UD ×2 (09:10→20:40)
[2018-07-20] MEDS: Methimazole 5 MG TAB 10 MG UD (09:11)
[2018-07-20] MEDS: Loperamide 2 MG CAP UD (09:11)
[2018-07-20] MEDS: Magnesium Oxide 400 MG TAB UD (10:34)
[2018-07-20] MEDS: Potassium Chloride Liquid 20 MEQ PKT 40 MEQ UD (10:34)
--- NOTE | 2018-07-20 12:01 | PT.INTREAT ---
Date of service: 07/20/18 Time of Service: 09:25 PT Notes Inpatient Physical Therapy Treatment Note [facility] Date: 07/20/18 SUBJECTIVE: Pt non verbal. She is awake and looks at me, but willing or able to communicate. OBJECTIVE: [] THEREX:attempted some ther ex. most ex performed AA. I was unable to get her to perform any UE ex, as she resisted me with any ROM. ASSESSMENT: nonverbal today, and unable to follow directions. PLAN: continue POC. TREATMENT CODE/TIME: 10 min. TPx1.
[2018-07-20] MEDS: Furosemide 40 MG/4 ML VIAL IVP (12:48)
[2018-07-20] MEDS: Normal Saline Flush 10 ML SYR IVP (12:49)
--- NOTE | 2018-07-20 13:16 | PDOC.CMPRO ---
- If Service Date Differs Date of service: 07/20/18 Time of Service: 13:16 Care Management Progress Note S/O: Christie is alert when CM enters the room conversation is minimal. Christie and her sister Netta met with palliative care today, Christie is having difficulty managing her secretions. PEG tube is in place feedings to start today and medications were restarted to treat schizophrenia. Plan per palliative and family is to continue to assess Christie's ability to tolerate feeding, and medications and then to revisit progress on Saturday. Hopeful that Christie can return to baseline and independent level of functioning versus transition to comfort measures only. A: 63 yo disabled female admitted for hypotension, aspiration now with a PEG tube placement. P: Discharge disposition undetermined at this time, no change in status today patient remains acute level of care. Palliative to revisit comfort measures versus progressive treatment on Saturday Christie and family present CM to continue to provide support ongoing discharge planning and disposition.
--- NOTE | 2018-07-20 18:25 | PCPN_ITS ---
Date of service: 07/20/18 Time of Service: 10:24 Assessment and Plan (1) Gastrostomy in place: Current visit: Yes Status: Acute (2) Has end of life care plan: Current visit: No Status: Acute I did speak with Netta her sister for some time. Netta was having a hard time with seeing Christie as she is presently. She stated my mother would be appalled to see her that there is state I do agree with the hospitalist that we do need to give her some time on her psych meds to better understand if she can regain her previous level of function. Netta and I decided we would touch base Saturday evening and decide next steps after 48 hours on her psych meds I have spent more than 50% of time in counseling with this patient. This document was created by [employer] and may contain grammatical and translation errors. (3) Weakness on right side of face: Current visit: Yes Status: Resolved Subjective Patient reports: no new complaints Interval history since last seen: I came to see how Regina was doing since her PEG tube was placed. Nursing reports that she is having trouble with her secretions. She is pretty much staring in place. She appears to be much more we moved that she had been. Little emotion in her face. I also spoke with her sister Netta who was very torn between watching her sister in a way that she had been helped to never see her and not feeling comfortable actively reversing the process with the PEG tube etc. I also spoke to Dr. Barrera, the hospitalist who took care of Regina when she was first admitted. He remembers a vivacious energetic person. He feels strongly that discontinuation of her psych meds was contributing to her present state. Dr. Jaocb from psychiatry has seen Christie and felt that she may be having catatonia from abrupt withdrawal of her psych meds She remains n.p.o. and they are trying some free water and her PEG tube Exam Narrative Exam Narrative: It is quite difficult to communicate with Christie. She looks at you most of the time actually through you she does try to say some words but it is difficult to understand what her meaning it is. She is drooling. She does not indicate that she is in any pain Cor regular lungs some air movement although diminished abdomen nontender PEG tube in place. She does have compression for her legs. Objective Objective Clinical Data: Abnormal lab results 07/20/18 07/20/18 Range/Units 06:17 06:17 WBC 11.37 H (4.4-10.8) k/cumm RBC 3.83 L (4.00-5.20) m/cumm Hgb 9.6 L (12.0-15.5) g/dL Hct 30.6 L (36.0-46.0) % MCV 79.9 L (80-95) fL MCH 25.1 L (27.0-33.0) pg MCHC 31.4 L (32.0-36.0) g/dL RDW 19.2 H (11.7-14.6) % MPV 11.4 H (8.0-11.0) fL Absolute Neutrophils 8.85 H (1.2-6.7) k/cumm Absolute Lymphocytes 1.18 L (1.2-3.4) k/cumm Absolute Monocytes 0.99 H (0.11-0.7) k/cumm Chloride 110 H (98-107) mmol/L BUN 6 L (7-18) mg/dL Glucose 115 H (70-100) mg/dL Vital Signs Temperature 99.1 F 07/20/18 11:50 Temperature Source Tympanic 07/20/18 11:50 Pulse 97 H 07/20/18 15:15 Pulse Rhythm Regular 07/20/18 08:15 Pulse 90 07/19/18 16:00 Respiratory Rate 20 07/20/18 11:50 Respiratory Effort Non-Labored 07/20/18 08:15 Respiratory Depth Shallow 07/20/18 08:15 Respiratory Pattern Normal 07/20/18 08:15 Blood Pressure 160/100 H 07/20/18 14:20 Blood Pressure Mean 87 07/19/18 14:45 Blood Pressure Position Supine 07/19/18 14:45 Pulse Oximetry 98 07/20/18 11:50 Respiratory End-tidal CO2 34 07/07/18 15:01 Oxygen Delivery Method Room Air 07/20/18 11:50 Oxygen Flow Rate 0 07/20/18 11:50 Fraction of Inspired Oxygen (FIO2) 28 07/16/18 00:30 Pain Level 0 07/18/18 08:46 Comment 07/20/18 14:20 Intake & Output 0107/20/18 07/20/18 23:59 11:59 23:59 Intake Total 1319.0 / 1609.5 902.5 / 1736.25 833.75 / 1736.25 Output Total 550 / 950 570 / 2195 1625 / 2195 Balance 769.0 / 659.5 332.5 / -458.75 -791.25 / -458.75 Weight 221 lb 5.506 oz Intake: IV 1319.0 / 1609.5 902.5 / 1736.25 833.75 / 1736.25 Oral 0 / 0 Output: Urine 550 / 950 250 / 1875 1625 / 1875 Output, Residual 320 / 320 Other: Urine Color Yellow Yellow Yellow Urine Appearance Clear Clear Clear Stool Size Small Large Stool Characteristics Liquid Liquid Brown Mucoid Laboratory Results WBC 11.37 k/cumm (4.4-10.8) H 07/20/18 06:17 RBC 3.83 m/cumm (4.00-5.20) L 07/20/18 06:17 Hgb 9.6 g/dL (12.0-15.5) L 07/20/18 06:17 Hct 30.6 % (36.0-46.0) L 07/20/18 06:17 MCV 79.9 fL (80-95) L 07/20/18 06:17 MCH 25.1 pg (27.0-33.0) L 07/20/18 06:17 MCHC 31.4 g/dL (32.0-36.0) L 07/20/18 06:17 RDW 19.2 % (11.7-14.6) H 07/20/18 06:17 Plt Count 273 x1000/uL (130-400) 07/20/18 06:17 MPV 11.4 fL (8.0-11.0) H 07/20/18 06:17 Abs Immat Gran (auto) Cancelled 07/13/18 08:05 Immature Gran % 0.3 07/20/18 06:17 Neutrophils % 77.8 07/20/18 06:17 Band Neutrophils % Cancelled 07/13/18 08:05 Lymphocytes % 10.4 07/20/18 06:17 Atypical Lymphs % Cancelled 07/13/18 08:05 Monocytes % 8.7 07/20/18 06:17 Eosinophils % 2.6 07/20/18 06:17 Basophils % 0.2 07/20/18 06:17 Absolute Neutrophils 8.85 k/cumm (1.2-6.7) H 07/20/18 06:17 Absolute Lymphocytes 1.18 k/cumm (1.2-3.4) L 07/20/18 06:17 Absolute Monocytes 0.99 k/cumm (0.11-0.7) H 07/20/18 06:17 Absolute Eosinophils 0.30 k/cumm (0.0-0.7) 07/20/18 06:17 Absolute Basophils 0.02 k/cumm (0.0-0.2) 07/20/18 06:17 Metamyelocytes Cancelled 07/13/18 08:05 Myelocytes Cancelled 07/13/18 08:05 Promyelocytes Cancelled 07/13/18 08:05 Nucleated RBCs Cancelled 07/13/18 08:05 Differential Comment Rbc morph reviewed 07/17/18 06:35 Other Cell Type Cancelled 07/13/18 08:05 RBC Morphology See below 07/17/18 06:35 Polychromasia Present 07/17/18 06:35 Hypochromasia 1+ 07/17/18 06:35 Poikilocytosis 1+ 07/17/18 06:35 Basophilic Stippling Cancelled 07/13/18 08:05 Anisocytosis 2+ 07/17/18 06:35 Microcytosis 2+ 07/06/18 07:20 Macrocytosis Cancelled 07/13/18 08:05 Spherocytes Cancelled 07/13/18 08:05 Target Cells Cancelled 07/13/18 08:05 Tear Drop Cells Cancelled 07/13/18 08:05 Ovalocytes 2+ 07/17/18 06:35 Stomatocytes Cancelled 07/13/18 08:05 [place] Bodies Cancelled 07/13/18 08:05 [place] Cells Cancelled 07/13/18 08:05 Acanthocytes (Spur) Cancelled 07/13/18 08:05 Schistocytes Cancelled 07/13/18 08:05 D-Dimer 1329 ng/mlFEU (<500) H 07/07/18 21:15 Sodium 143 mmol/L (136-145) 07/20/18 06:17 Potassium 3.6 mmol/L (3.5-5.1) 07/20/18 06:17 Chloride 110 mmol/L (98-107) H 07/20/18 06:17 Carbon Dioxide 26.5 mmol/L (21.0-32.0) 07/20/18 06:17 Anion Gap 6.5 mmol/L (3-11) 07/20/18 06:17 BUN 6 mg/dL (7-18) L 07/20/18 06:17 Creatinine 0.91 mg/dL (0.55-1.02) 07/20/18 06:17 Estimated GFR/1.73 m2 >= 60.00 (mL/min/1.73m2) 07/20/18 06:17 Glucose 115 mg/dL (70-100) H 07/20/18 06:17 Lactate 1.0 mmol/L (0.6-1.4) 07/06/18 07:20 Calcium 8.6 mg/dL (8.5-10.1) 07/20/18 06:17 Magnesium 1.8 mg/dL (1.8-2.4) 07/20/18 06:17 Total Bilirubin 0.3 mg/dL (0.2-1.0) 07/12/18 05:50 Conjugated Bilirubin 0.10 mg/dL (0.00-0.20) 07/12/18 05:50 AST 24 U/L (15-37) 07/12/18 05:50 ALT 47 U/L (12-78) 07/12/18 05:50 Alkaline Phosphatase 65 U/L (46-116) 07/12/18 05:50 Ammonia < 10 umol/L (11-32) L 07/15/18 10:20 Troponin I 0.02 ng/mL (0.00-0.06) 07/08/18 05:00 NT-Pro-B Natriuret Pep 1154 pg/mL (-299) H 07/07/18 21:15 Total Protein 4.6 g/dL (6.4-8.2) L 07/12/18 05:50 Albumin 2.2 g/dL (3.4-5.0) L 07/12/18 05:50 Lipase 252 U/L (73-393) 07/04/18 13:15 Procalcitonin <0.10 ng/mL (<or=1.5) 07/08/18 06:24 Calcitonin Cancelled 07/08/18 06:24 TSH 1.09 uIU/mL (0.358-3.74) 07/06/18 07:20 Urine Color Yellow (Yellow) 07/14/18 13:05 Urine Clarity Clear 07/14/18 13:05 Urine pH 5.0 (5-8) 07/14/18 13:05 Ur Specific [place] <= 1.005 (1.005-1.025) 07/14/18 13:05 Urine Protein Negative mg/dL (Negative) 07/14/18 13:05 Urine Ketones Negative mg/dL (Negative) 07/14/18 13:05 Urine Blood Small (Negative) H 07/14/18 13:05 Urine Nitrite Negative (Negative) 07/14/18 13:05 Urine Bilirubin Negative (Negative) 07/14/18 13:05 Urine Urobilinogen 0.2 EU/dL (Up TO 0.2) 07/14/18 13:05 Ur Leukocyte Esterase Negative (Negative) 07/14/18 13:05 Urine RBC 3-5 (0-2) H 07/14/18 13:05 Urine WBC 0-2 HPF (0-5) 07/14/18 13:05 Ur Epithelial Cells Rare HPF (Negative) 07/14/18 13:05 Urine Crystals Rare amorphous HPF (Negative) 07/14/18 13:05 Urine Bacteria Rare HPF (Negative) 07/14/18 13:05 Urine Casts Negative LPF (Negative) 07/14/18 13:05 Urine Mucus Trace (Negative) 07/14/18 13:05 Ur Culture Indicated? C&s done as ordered 07/14/18 13:05 Urine Glucose 100 mg/dL (Negative) 07/14/18 13:05 Stool Campylobacter PCR See comments 07/06/18 12:45 Stool Salmonella PCR See comments 07/06/18 12:45 Stool Shigella PCR See comments 07/06/18 12:45 Vancomycin Trough 18.9 ug/mL (10.0-20.0) 07/20/18 06:17 Shiga Toxin (PCR) See comments 07/06/18 12:45 Path Cons Comment See comment 07/06/18 07:20 Miscellaneous Test Cancelled 07/08/18 06:24
--- NOTE | 2018-07-20 18:29 | PGE_ITS ---
Date of Service Date of service: 07/20/18 Time of Service: 18:26 Assessment and Plan (1) Dysphagia: Current visit: Yes Status: Acute History of benign distal esophageal stricture by EGD, s/p dilation in 2007. There was also noted Unprotected aspiration as well as large GERD with evidence of esophagitis. However, repeat EGD normal and Barium Swallow with no evidence of stricture, but with esophageal dysmotility and retention of barium in the esophagus. Patient has been under treatment for Aspiration pneumonia - s/p PEG tube placement 07/19. Maintain NPO status for now, initiate Tube Feeds today. Also restarted home meds via Peg Tube, with continued aspiration precautions. Will also start on short acting Cardizem, and consider QHS Imipramine. Continue treatment of GERD with IV PPI therapy. Will ultimately need outpatient manometry when mental status is back to baseline, and patient is able to cooperate. Of note, currently also having problems with initiation of swallowing which appears new and may be related to her altered mental status and holding of her psych medications. Her medications have been restarted. (2) Esophageal dysmotility: Current visit: Yes Status: Acute Treatment as above. (3) Hypotension: Current visit: Yes Status: Resolved Initially, hypotensiven to the point of requiring pressor support, and with evidence of end-organ damage with KJ and elevation in Lactate - unknown etiology. Potential Dehydration in the setting of initiation of HCTZ vs. Sepsis - although no evidence of infiltrate or acute infection initially. Does not appear to have been adrenal insufficiency, with steroids weaned off. Echo without clear cardiogenic etiology, and no persistent arrhythmias on monitor. Aspiration pneumonia/recurrent aspiration events now seem like the most likely scenario. (4) Altered mental status: Current visit: Yes Status: Acute Initially described as episodes of confusion, 'staring', near unresponsive state while awake, with potential post-ictal like state - now appears different as patient's affect and verbal responsiveness have declined significantly. No evidence of active infection - may be related to side-effect of Keppra (depression/confusion), now d/c'd. May also be related to witholding of chronic psychiatric medications - reinitiated 07/19. Ultmately cannot rule out seizure activity as potential etiology as well, although EEG and MRI X2 were negative. 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 Unsure if her symptoms represent waxing and waning encephalopathy in the setting of acute illness vs. seizure activity. (5) Bradycardia: Current visit: No Status: Acute Abnormally normal heart rate during initial bout of hypotension, then frankly bradycardic - reportedly had a bout of junctional rhythm as well. However, review of EKG by Cardiology/Electrophysiology with note of Sinus Bradycardia. Avoid jovan agents - also with tachycardia noted. 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 Cardiology is aware if patient becomes unstable. (6) Hypernatremia: Current visit: Yes Status: Acute Mild. Free Water Deficit Calculated at 3-4 L. Was initiated on low quantity free water dispense via Peg Tube with normalization of sodium this morning. Continue to monitor with initiation of Tube Feeds as well. (7) KJ (acute kidney injury): Current visit: Yes Status: Resolved Creatinine improved and KJ resolved. (8) Schizophrenia: Current visit: No Status: Chronic Restarted home meds as above. (9) DVT prophylaxis: Current visit: Yes Status: Acute Restart Enoxaparin post PEG Tube placement yesterday. (10) Advance directive on file: Current visit: Yes Status: Acute DNR/DNI. Subjective Interval history since last seen: 63-year-old woman with history of cognitive delay and Hypertension, admitted from [facility] Emergency Department with a diagnosis of Hypotension. Ms. Gardiner has a history of cognitive dysfunction, HTN, GERD, and Schizophrenia. She was initially sent to the emergency room because of several days of nonspecific weakness. In the ED she was noted to be significantly hypotensive with blood pressures in the 60s systolic, but without tachycardia. She was given fluid resuscitation and started on levophed. Initial laboratory evaluation of note for leukocytosis, low-grade pyuria (5-10 white cells), negative chest x-ray and CT of the abdomen that was unremarkable except for a known cyst in the right lower quadrant. She was then referred for admission for further evaluation and treatment. Since her admission Blood pressure eventually improved and she has remained off pressor support after recurrence of her hypotension, thought likely secondary to aspiration pneumonia/pneumonitis. She has remained afebrile. Her Urine and Blood Cultures remained negative, and her C. Diff and Fecal Leukocytes were negative as well. CT of the chest and ECHO have been normal. She has however shown evidence of difficulty with swallowing, and a Barium Swallow revealed evidence of barium retention and esophageal dysmotility. Subsequent EGD was negative. Mrs. Gardiner has remained NPO and without oral meds or food for quite some time - has successfully undergone PEG tube placement on 07/19 with apparent well functioning tube. Still not at her baseline mental status and with significant waxing and waning symptoms overall. No other events reported. Remains afebrile. Exam Narrative Exam Narrative: General: Patient appears stable, awake, and alert, no longer appropriately responsive. NAD. Neck: Supple CV: Regular, nontachycardic, S1S2, No rubs, murmurs, or gallops. Pulmonary: Essentially Clear to auscultation bilaterally but limited due to patient's lack of cooperation and body habitus. No crackles, wheezing, or rhonchi. Breath Sounds decreased overall. Abdomen: + Bowel Sounds, soft, nontender, nondistended Vascular: No lower extremity edema Objective Objective Clinical Data: Abnormal lab results 07/20/18 07/20/18 Range/Units 06:17 06:17 WBC 11.37 H (4.4-10.8) k/cumm RBC 3.83 L (4.00-5.20) m/cumm Hgb 9.6 L (12.0-15.5) g/dL Hct 30.6 L (36.0-46.0) % MCV 79.9 L (80-95) fL MCH 25.1 L (27.0-33.0) pg MCHC 31.4 L (32.0-36.0) g/dL RDW 19.2 H (11.7-14.6) % MPV 11.4 H (8.0-11.0) fL Absolute Neutrophils 8.85 H (1.2-6.7) k/cumm Absolute Lymphocytes 1.18 L (1.2-3.4) k/cumm Absolute Monocytes 0.99 H (0.11-0.7) k/cumm Chloride 110 H (98-107) mmol/L BUN 6 L (7-18) mg/dL Glucose 115 H (70-100) mg/dL Vital Signs Temperature 37.3 C 07/20/18 11:50 Temperature Source Tympanic 07/20/18 11:50 Pulse 97 H 07/20/18 15:15 Pulse Rhythm Regular 07/20/18 08:15 Pulse 90 07/19/18 16:00 Respiratory Rate 20 07/20/18 11:50 Respiratory Effort Non-Labored 07/20/18 08:15 Respiratory Depth Shallow 07/20/18 08:15 Respiratory Pattern Normal 07/20/18 08:15 Blood Pressure 160/100 H 07/20/18 14:20 Blood Pressure Mean 87 07/19/18 14:45 Blood Pressure Position Supine 07/19/18 14:45 Pulse Oximetry 98 07/20/18 11:50 Respiratory End-tidal CO2 34 07/07/18 15:01 Oxygen Delivery Method Room Air 07/20/18 11:50 Oxygen Flow Rate 0 07/20/18 11:50 Fraction of Inspired Oxygen (FIO2) 28 07/16/18 00:30 Pain Level 0 07/18/18 08:46 Comment 07/20/18 14:20 Intake & Output 07/19/18 07/20/18 07/20/18 23:59 11:59 23:59 Intake Total 1319.0 / 1609.5 902.5 / 1736.25 833.75 / 1736.25 Output Total 550 / 950 570 / 2195 1625 / 2195 Balance 769.0 / 659.5 332.5 / -458.75 -791.25 / -458.75 Weight 100.4 kg Intake: IV 1319.0 / 1609.5 902.5 / 1736.25 833.75 / 1736.25 Oral 0 / 0 Output: Urine 550 / 950 250 / 1875 1625 / 1875 Output, Residual 320 / 320 Other: Urine Color Yellow Yellow Yellow Urine Appearance Clear Clear Clear Stool Size Small Large Stool Characteristics Liquid Liquid Brown Mucoid Laboratory Results WBC 11.37 k/cumm (4.4-10.8) H 07/20/18 06:17 RBC 3.83 m/cumm (4.00-5.20) L 07/20/18 06:17 Hgb 9.6 g/dL (12.0-15.5) L 07/20/18 06:17 Hct 30.6 % (36.0-46.0) L 07/20/18 06:17 MCV 79.9 fL (80-95) L 07/20/18 06:17 MCH 25.1 pg (27.0-33.0) L 07/20/18 06:17 MCHC 31.4 g/dL (32.0-36.0) L 07/20/18 06:17 RDW 19.2 % (11.7-14.6) H 07/20/18 06:17 Plt Count 273 x1000/uL (130-400) 07/20/18 06:17 MPV 11.4 fL (8.0-11.0) H 07/20/18 06:17 Abs Immat Gran (auto) Cancelled 07/13/18 08:05 Immature Gran % 0.3 07/20/18 06:17 Neutrophils % 77.8 07/20/18 06:17 Band Neutrophils % Cancelled 07/13/18 08:05 Lymphocytes % 10.4 07/20/18 06:17 Atypical Lymphs % Cancelled 07/13/18 08:05 Monocytes % 8.7 07/20/18 06:17 Eosinophils % 2.6 07/20/18 06:17 Basophils % 0.2 07/20/18 06:17 Absolute Neutrophils 8.85 k/cumm (1.2-6.7) H 07/20/18 06:17 Absolute Lymphocytes 1.18 k/cumm (1.2-3.4) L 07/20/18 06:17 Absolute Monocytes 0.99 k/cumm (0.11-0.7) H 07/20/18 06:17 Absolute Eosinophils 0.30 k/cumm (0.0-0.7) 07/20/18 06:17 Absolute Basophils 0.02 k/cumm (0.0-0.2) 07/20/18 06:17 Metamyelocytes Cancelled 07/13/18 08:05 Myelocytes Cancelled 07/13/18 08:05 Promyelocytes Cancelled 07/13/18 08:05 Nucleated RBCs Cancelled 07/13/18 08:05 Differential Comment Rbc morph reviewed 07/17/18 06:35 Other Cell Type Cancelled 07/13/18 08:05 RBC Morphology See below 07/17/18 06:35 Polychromasia Present 07/17/18 06:35 Hypochromasia 1+ 07/17/18 06:35 Poikilocytosis 1+ 07/17/18 06:35 Basophilic Stippling Cancelled 07/13/18 08:05 Anisocytosis 2+ 07/17/18 06:35 Microcytosis 2+ 07/06/18 07:20 Macrocytosis Cancelled 07/13/18 08:05 Spherocytes Cancelled 07/13/18 08:05 Target Cells Cancelled 07/13/18 08:05 Tear Drop Cells Cancelled 07/13/18 08:05 Ovalocytes 2+ 07/17/18 06:35 Stomatocytes Cancelled 07/13/18 08:05 [place] Bodies Cancelled 07/13/18 08:05 [place] Cells Cancelled 07/13/18 08:05 Acanthocytes (Spur) Cancelled 07/13/18 08:05 Schistocytes Cancelled 07/13/18 08:05 D-Dimer 1329 ng/mlFEU (<500) H 07/07/18 21:15 Sodium 143 mmol/L (136-145) 07/20/18 06:17 Potassium 3.6 mmol/L (3.5-5.1) 07/20/18 06:17 Chloride 110 mmol/L (98-107) H 07/20/18 06:17 Carbon Dioxide 26.5 mmol/L (21.0-32.0) 07/20/18 06:17 Anion Gap 6.5 mmol/L (3-11) 07/20/18 06:17 BUN 6 mg/dL (7-18) L 07/20/18 06:17 Creatinine 0.91 mg/dL (0.55-1.02) 07/20/18 06:17 Estimated GFR/1.73 m2 >= 60.00 (mL/min/1.73m2) 07/20/18 06:17 Glucose 115 mg/dL (70-100) H 07/20/18 06:17 Lactate 1.0 mmol/L (0.6-1.4) 07/06/18 07:20 Calcium 8.6 mg/dL (8.5-10.1) 07/20/18 06:17 Magnesium 1.8 mg/dL (1.8-2.4) 07/20/18 06:17 Total Bilirubin 0.3 mg/dL (0.2-1.0) 07/12/18 05:50 Conjugated Bilirubin 0.10 mg/dL (0.00-0.20) 07/12/18 05:50 AST 24 U/L (15-37) 07/12/18 05:50 ALT 47 U/L (12-78) 07/12/18 05:50 Alkaline Phosphatase 65 U/L (46-116) 07/12/18 05:50 Ammonia < 10 umol/L (11-32) L 07/15/18 10:20 Troponin I 0.02 ng/mL (0.00-0.06) 07/08/18 05:00 NT-Pro-B Natriuret Pep 1154 pg/mL (-299) H 07/07/18 21:15 Total Protein 4.6 g/dL (6.4-8.2) L 07/12/18 05:50 Albumin 2.2 g/dL (3.4-5.0) L 07/12/18 05:50 Lipase 252 U/L (73-393) 07/04/18 13:15 Procalcitonin <0.10 ng/mL (<or=1.5) 07/08/18 06:24 Calcitonin Cancelled 07/08/18 06:24 TSH 1.09 uIU/mL (0.358-3.74) 07/06/18 07:20 Urine Color Yellow (Yellow) 07/14/18 13:05 Urine Clarity Clear 07/14/18 13:05 Urine pH 5.0 (5-8) 07/14/18 13:05 Ur Specific [place] <= 1.005 (1.005-1.025) 07/14/18 13:05 Urine Protein Negative mg/dL (Negative) 07/14/18 13:05 Urine Ketones Negative mg/dL (Negative) 07/14/18 13:05 Urine Blood Small (Negative) H 07/14/18 13:05 Urine Nitrite Negative (Negative) 07/14/18 13:05 Urine Bilirubin Negative (Negative) 07/14/18 13:05 Urine Urobilinogen 0.2 EU/dL (Up TO 0.2) 07/14/18 13:05 Ur Leukocyte Esterase Negative (Negative) 07/14/18 13:05 Urine RBC 3-5 (0-2) H 07/14/18 13:05 Urine WBC 0-2 HPF (0-5) 07/14/18 13:05 Ur Epithelial Cells Rare HPF (Negative) 07/14/18 13:05 Urine Crystals Rare amorphous HPF (Negative) 07/14/18 13:05 Urine Bacteria Rare HPF (Negative) 07/14/18 13:05 Urine Casts Negative LPF (Negative) 07/14/18 13:05 Urine Mucus Trace (Negative) 07/14/18 13:05 Ur Culture Indicated? C&s done as ordered 07/14/18 13:05 Urine Glucose 100 mg/dL (Negative) 07/14/18 13:05 Stool Campylobacter PCR See comments 07/06/18 12:45 Stool Salmonella PCR See comments 07/06/18 12:45 Stool Shigella PCR See comments 07/06/18 12:45 Vancomycin Trough 18.9 ug/mL (10.0-20.0) 07/20/18 06:17 Shiga Toxin (PCR) See comments 07/06/18 12:45 Path Cons Comment See comment 07/06/18 07:20 Miscellaneous Test Cancelled 07/08/18 06:24
[2018-07-20] MEDS: OLANZapine 5 MG TAB 10 MG UD (22:47)
[2018-07-20] MEDS: Donepezil 5 MG TAB 10 MG UD (22:47)
[2018-07-21] VITALS (47 sets, daily range): BP systolic 80–178; BP diastolic 50–124; PULSE 85–131; RESP 5–32; TEMP 37.2–38.1; O2SAT 92–99
[2018-07-21] MEDS: Levalbuterol 1.25 MG/3 ML UPD VIAL UPD ×6 (00:37→20:16)
[2018-07-21 07:30] LABS: Abs Immature Grans 0.06 k/cumm (0.0-0.09); Absolute Neutrophil Count 7.76 k/cumm (1.2-6.7); Basophils % 0.3; Eosinophils % 3.8; HCT 31.2 % (36.0-46.0); HGB 9.7 g/dL (12.0-15.5); Immature Grans % 0.5; Lymphocytes % 17.1; Mean Corp. HGB Concentration 31.1 g/dL (32.0-36.0); Mean Corpuscular Hemoglobin 24.9 pg (27.0-33.0); Mean Platelet Volume 11.2 fL (8.0-11.0); Neutrophils % 66.3; Platelet Count 326 x1000/uL (130-400); RBC Distribution Width 19.7 % (11.7-14.6)
[2018-07-21 07:37] LABS: Absolute Basophil Count 0.04 k/cumm (0.0-0.2); Absolute Eosinophil Count 0.44 k/cumm (0.0-0.7)
[2018-07-21 07:44] LABS: BUN 9 mg/dL (7-18); CREATININE 1.11 mg/dL (0.55-1.02); Calcium 8.9 mg/dL (8.5-10.1); Chloride 109 mmol/L (98-107); Estimated GFR 49.64 (mL/min/1.73m2); Glucose 132 mg/dL (70-100); Magnesium 1.7 mg/dL (1.8-2.4); Potassium 3.5 mmol/L (3.5-5.1); Sodium 146 mmol/L (136-145)
[2018-07-21] MEDS: Furosemide 40 MG/4 ML VIAL IVP (09:11)
[2018-07-21] MEDS: Pantoprazole 40 MG VIAL IVP (09:12)
[2018-07-21] MEDS: Normal Saline Flush 10 ML SYR 20 ML IVP ×2 (09:12→20:25)
[2018-07-21] MEDS: Enoxaparin 40 MG/0.4 ML SYR SC (09:13)
[2018-07-21] MEDS: Magnesium Oxide 400 MG TAB PO ×3 (09:14→17:30)
[2018-07-21] MEDS: Methimazole 5 MG TAB UD (09:14)
[2018-07-21] MEDS: Loperamide 2 MG CAP UD (09:14)
[2018-07-21] MEDS: Potassium Chloride Liquid 20 MEQ PKT 40 MEQ PO (09:15)
[2018-07-21] MEDS: Nystatin POWDER 60 GM JAR TP ×2 (09:16→20:20)
--- NOTE | 2018-07-21 09:18 | PDOC.CMPRO ---
Care Management Progress Note S/O: Christie was transferred to ICU level of care as she will begin new Ativan treatment for catatonia recommended by Dr. Scott. CM will continue to follow. Family remains hopeful that Christie can return to baseline and independent level of functioning versus transition to comfort measures only. A: 63 yo disabled female admitted for hypotension, aspiration now with a PEG tube placement. P: Discharge disposition undetermined at this time, no change in status today patient remains acute level of care. Palliative to revisit comfort measures versus progressive treatment on Saturday Christie and family present CM to continue to provide support ongoing discharge planning and disposition.
[2018-07-21] MEDS: Memantine 5 MG TAB 10 MG UD ×2 (09:41→20:16)
--- NOTE | 2018-07-21 12:31 | W.NUTRFU ---
Date of service: 07/21/18 Time of Service: 12:33 Nutritional Follow up NOTE: Nutrition consult to re-evaluate tube feeding with regard to intravascular depletion. In reviewing the amount of free fluid that she is getting, there is room to increase the volume using a calculation of 30-35 ml/kg/day of her adjusted ideal body weight of 89 kg. In that case, we could move towards an additional 1450 ml to 1875 ml of free water daily in addition to the tube feeding volume. In this case, she will need to get 240 ml of free water, six times per day or in some schedule that works with her medications and her flushes. Will continue to monitor her progress and tolerance to tube feeding. Will remain available for any other recommendations in with her nutrition care plan. Thank you for the consult. Time Spent in Nutritional Counseling and Treatment: BERNABE
--- NOTE | 2018-07-21 15:10 | W.PM.PROGNOT ---
Date of Service Date of service: 07/21/18 Time of Service: 15:10 Assessment and Plan (1) Dysphagia: Current visit: Yes Status: Acute History of benign distal esophageal stricture by EGD, s/p dilation in 2007. There was also noted Unprotected aspiration as well as large GERD with evidence of esophagitis. However, repeat EGD normal and Barium Swallow with no evidence of stricture, but with esophageal dysmotility and retention of barium in the esophagus. Patient has been under treatment for Aspiration pneumonia - s/p PEG tube placement 07/19. Maintain NPO status for now, continue Tube Feeds. Also restarted home meds via Peg Tube, with continued aspiration precautions. Will also continue short acting Cardizem, and consider QHS Imipramine. Continue treatment of GERD with IV PPI therapy. Will ultimately need outpatient manometry when mental status is back to baseline, and patient is able to cooperate. Of note, currently also having problems with initiation of swallowing which appears new and may be related to her altered mental status and holding of her psych medications. Her medications have been restarted. (2) Schizophrenia: Current visit: No Status: Chronic Restarted home meds as above on 07/19. Ms. Gardiner was formally evaluated by psychiatry - per verbal report from Dr. 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 Recommendations for transfer of patient to ICU, and initiation of IV Ativan with close monitoring for effect. (3) Esophageal dysmotility: Current visit: Yes Status: Acute Treatment as above. (4) Hypotension: Current visit: Yes Status: Resolved Initially, hypotensiven to the point of requiring pressor support, and with evidence of end-organ damage with KJ and elevation in Lactate - unknown etiology. Potential Dehydration in the setting of initiation of HCTZ vs. Sepsis - although no evidence of infiltrate or acute infection initially. Does not appear to have been adrenal insufficiency, with steroids weaned off. Echo without clear cardiogenic etiology, and no persistent arrhythmias on monitor. Aspiration pneumonia/recurrent aspiration events now seem like the most likely scenario. (5) Altered mental status: Current visit: Yes Status: Acute Initially described as episodes of confusion, 'staring', near unresponsive state while awake, with potential post-ictal like state - now appears different as patient's affect and verbal responsiveness have declined significantly. No evidence of active infection - thought potentially related to side-effect of Keppra (depression/confusion), now without change even after d/c. Potentially related to witholding of chronic psychiatric medications, catatonia per verbal report from psychiatry. Reinitiated medications 07/19. Currently to transfer to the ICU for trial of benzodiazepine therapy. EEG and MRI X2 were negative. (6) Bradycardia: Current visit: No Status: Acute Abnormally normal heart rate during initial bout of hypotension, then frankly bradycardic - reportedly had a bout of junctional rhythm as well. However, review of EKG by Cardiology/Electrophysiology with note of Sinus Bradycardia. Avoid jovan agents - also with tachycardia noted. 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 Cardiology is aware if patient becomes unstable. (7) Hypernatremia: Current visit: Yes Status: Acute Improved and now mild. Continue Tube Feeds with Free Water via Peg Tube. (8) KJ (acute kidney injury): Current visit: Yes Status: Resolved Creatinine improved and KJ resolved. (9) DVT prophylaxis: Current visit: Yes Status: Acute Continue Enoxaparin. (10) Advance directive on file: Current visit: Yes Status: Acute DNR/DNI. Subjective Interval history since last seen: 63-year-old woman with history of cognitive delay and Hypertension, admitted from [facility] Emergency Department with a diagnosis of Hypotension. Ms. Gardiner has a history of cognitive dysfunction, HTN, GERD, and Schizophrenia. She was initially sent to the emergency room because of several days of nonspecific weakness. In the ED she was noted to be significantly hypotensive with blood pressures in the 60s systolic, but without tachycardia. She was given fluid resuscitation and started on levophed. Initial laboratory evaluation of note for leukocytosis, low-grade pyuria (5-10 white cells), negative chest x-ray and CT of the abdomen that was unremarkable except for a known cyst in the right lower quadrant. She was then referred for admission for further evaluation and treatment. Since her admission Blood pressure eventually improved and she has remained off pressor support after recurrence of her hypotension, thought likely secondary to aspiration pneumonia/pneumonitis. Her Urine and Blood Cultures remained negative, and her C. Diff and Fecal Leukocytes were negative as well. CT of the chest and ECHO have been normal. She has however shown evidence of difficulty with swallowing, and a Barium Swallow revealed evidence of barium retention and esophageal dysmotility. Subsequent EGD was negative. Mrs. Gardiner has remained NPO and without oral meds or food for quite some time - has successfully undergone PEG tube placement on 07/19 with apparent well functioning tube. Still not at her baseline mental status and with significant waxing and waning symptoms overall, now worsening. One time fever overnight. No other events reported. Remains afebrile. Exam Narrative Exam Narrative: General: Patient appears stable, awake, but not alert, no longer appropriately responsive or following commands. NAD. Neck: Supple CV: Regular, tachycardic, S1S2, No rubs, murmurs, or gallops. Pulmonary: diffusely rhonchorous but limited due to patient's lack of cooperation and body habitus. Abdomen: + Bowel Sounds, soft, nontender, nondistended Vascular: No lower extremity edema Objective Objective Clinical Data: Abnormal lab results 07/21/18 07/21/18 Range/Units 06:44 06:44 WBC 11.70 H (4.4-10.8) k/cumm RBC 3.90 L (4.00-5.20) m/cumm Hgb 9.7 L (12.0-15.5) g/dL Hct 31.2 L (36.0-46.0) % MCH 24.9 L (27.0-33.0) pg MCHC 31.1 L (32.0-36.0) g/dL RDW 19.7 H (11.7-14.6) % MPV 11.2 H (8.0-11.0) fL Absolute Neutrophils 7.76 H (1.2-6.7) k/cumm Absolute Monocytes 1.40 H (0.11-0.7) k/cumm Sodium 146 H (136-145) mmol/L Chloride 109 H (98-107) mmol/L Creatinine 1.11 H (0.55-1.02) mg/dL Glucose 132 H (70-100) mg/dL Magnesium 1.7 L (1.8-2.4) mg/dL Vital Signs Temperature 37.4 C 07/21/18 11:33 Temperature Source Tympanic 07/21/18 11:33 Pulse 113 H 07/21/18 14:31 Pulse Rhythm Regular 07/21/18 08:20 Pulse 114 H 07/21/18 14:31 Respiratory Rate 29 H 07/21/18 14:31 Respiratory Effort Non-Labored 07/21/18 08:20 Respiratory Depth Shallow 07/21/18 08:20 Respiratory Pattern Normal 07/21/18 08:20 Blood Pressure 134/97 H 07/21/18 14:31 Blood Pressure Mean 105 07/21/18 14:31 Blood Pressure Position Supine 07/19/18 14:45 Pulse Oximetry 94 L 07/21/18 14:31 Respiratory End-tidal CO2 34 07/07/18 15:01 Oxygen Delivery Method Room Air 07/21/18 11:33 Oxygen Flow Rate 0 07/21/18 11:33 Fraction of Inspired Oxygen (FIO2) 28 07/16/18 00:30 Pain Level 0 07/18/18 08:46 Comment 07/21/18 00:23 Intake & Output 07/20/18 07/21/18 07/21/18 23:59 11:59 23:59 Intake Total 833.75 / 1736.25 241 / 241 Output Total 3825 / 4395 2355 / 3605 1250 / 3605 Balance -2991.25 / -2658.75 -2114 / -3364 -1250 / -3364 Weight 97.3 kg Intake: IV 833.75 / 1736.25 Intake, Tube Feeding Amount 241 / 241 Output: Urine 3825 / 4075 2050 / 3300 1250 / 3300 Output, Residual 305 / 305 Other: Urine Color Pale Yellow Pale Yellow Yellow Urine Appearance Clear Clear Clear Urine Odor None Stool Size Small Stool Characteristics Liquid Brown Laboratory Results WBC 11.70 k/cumm (4.4-10.8) H 07/21/18 06:44 RBC 3.90 m/cumm (4.00-5.20) L 07/21/18 06:44 Hgb 9.7 g/dL (12.0-15.5) L 07/21/18 06:44 Hct 31.2 % (36.0-46.0) L 07/21/18 06:44 MCV 80.0 fL (80-95) 07/21/18 06:44 MCH 24.9 pg (27.0-33.0) L 07/21/18 06:44 MCHC 31.1 g/dL (32.0-36.0) L 07/21/18 06:44 RDW 19.7 % (11.7-14.6) H 07/21/18 06:44 Plt Count 326 x1000/uL (130-400) 07/21/18 06:44 MPV 11.2 fL (8.0-11.0) H 07/21/18 06:44 Abs Immat Gran (auto) Cancelled 07/13/18 08:05 Immature Gran % 0.5 07/21/18 06:44 Neutrophils % 66.3 07/21/18 06:44 Band Neutrophils % Cancelled 07/13/18 08:05 Lymphocytes % 17.1 07/21/18 06:44 Atypical Lymphs % Cancelled 07/13/18 08:05 Monocytes % 12.0 07/21/18 06:44 Eosinophils % 3.8 07/21/18 06:44 Basophils % 0.3 07/21/18 06:44 Absolute Neutrophils 7.76 k/cumm (1.2-6.7) H 07/21/18 06:44 Absolute Lymphocytes 2.00 k/cumm (1.2-3.4) 07/21/18 06:44 Absolute Monocytes 1.40 k/cumm (0.11-0.7) H 07/21/18 06:44 Absolute Eosinophils 0.44 k/cumm (0.0-0.7) 07/21/18 06:44 Absolute Basophils 0.04 k/cumm (0.0-0.2) 07/21/18 06:44 Metamyelocytes Cancelled 07/13/18 08:05 Myelocytes Cancelled 07/13/18 08:05 Promyelocytes Cancelled 07/13/18 08:05 Nucleated RBCs Cancelled 07/13/18 08:05 Differential Comment Rbc morph reviewed 07/17/18 06:35 Other Cell Type Cancelled 07/13/18 08:05 RBC Morphology See below 07/17/18 06:35 Polychromasia Present 07/17/18 06:35 Hypochromasia 1+ 07/17/18 06:35 Poikilocytosis 1+ 07/17/18 06:35 Basophilic Stippling Cancelled 07/13/18 08:05 Anisocytosis 2+ 07/17/18 06:35 Microcytosis 2+ 07/06/18 07:20 Macrocytosis Cancelled 07/13/18 08:05 Spherocytes Cancelled 07/13/18 08:05 Target Cells Cancelled 07/13/18 08:05 Tear Drop Cells Cancelled 07/13/18 08:05 Ovalocytes 2+ 07/17/18 06:35 Stomatocytes Cancelled 07/13/18 08:05 [place] Bodies Cancelled 07/13/18 08:05 Girma Cells Cancelled 07/13/18 08:05 Acanthocytes (Spur) Cancelled 07/13/18 08:05 Schistocytes Cancelled 07/13/18 08:05 D-Dimer 1329 ng/mlFEU (<500) H 07/07/18 21:15 Sodium 146 mmol/L (136-145) H 07/21/18 06:44 Potassium 3.5 mmol/L (3.5-5.1) 07/21/18 06:44 Chloride 109 mmol/L (98-107) H 07/21/18 06:44 Carbon Dioxide 28.0 mmol/L (21.0-32.0) 07/21/18 06:44 Anion Gap 9.0 mmol/L (3-11) 07/21/18 06:44 BUN 9 mg/dL (7-18) 07/21/18 06:44 Creatinine 1.11 mg/dL (0.55-1.02) H 07/21/18 06:44 Estimated GFR/1.73 m2 49.64 (mL/min/1.73m2) 07/21/18 06:44 Glucose 132 mg/dL (70-100) H 07/21/18 06:44 Lactate 1.0 mmol/L (0.6-1.4) 07/06/18 07:20 Calcium 8.9 mg/dL (8.5-10.1) 07/21/18 06:44 Magnesium 1.7 mg/dL (1.8-2.4) L 07/21/18 06:44 Total Bilirubin 0.3 mg/dL (0.2-1.0) 07/12/18 05:50 Conjugated Bilirubin 0.10 mg/dL (0.00-0.20) 07/12/18 05:50 AST 24 U/L (15-37) 07/12/18 05:50 ALT 47 U/L (12-78) 07/12/18 05:50 Alkaline Phosphatase 65 U/L (46-116) 07/12/18 05:50 Ammonia < 10 umol/L (11-32) L 07/15/18 10:20 Troponin I 0.02 ng/mL (0.00-0.06) 07/08/18 05:00 NT-Pro-B Natriuret Pep 1154 pg/mL (-299) H 07/07/18 21:15 Total Protein 4.6 g/dL (6.4-8.2) L 07/12/18 05:50 Albumin 2.2 g/dL (3.4-5.0) L 07/12/18 05:50 Lipase 252 U/L (73-393) 07/04/18 13:15 Procalcitonin <0.10 ng/mL (<or=1.5) 07/08/18 06:24 Calcitonin Cancelled 07/08/18 06:24 TSH 1.09 uIU/mL (0.358-3.74) 07/06/18 07:20 Urine Color Yellow (Yellow) 07/14/18 13:05 Urine Clarity Clear 07/14/18 13:05 Urine pH 5.0 (5-8) 07/14/18 13:05 Ur Specific [place] <= 1.005 (1.005-1.025) 07/14/18 13:05 Urine Protein Negative mg/dL (Negative) 07/14/18 13:05 Urine Ketones Negative mg/dL (Negative) 07/14/18 13:05 Urine Blood Small (Negative) H 07/14/18 13:05 Urine Nitrite Negative (Negative) 07/14/18 13:05 Urine Bilirubin Negative (Negative) 07/14/18 13:05 Urine Urobilinogen 0.2 EU/dL (Up TO 0.2) 07/14/18 13:05 Ur Leukocyte Esterase Negative (Negative) 07/14/18 13:05 Urine RBC 3-5 (0-2) H 07/14/18 13:05 Urine WBC 0-2 HPF (0-5) 07/14/18 13:05 Ur Epithelial Cells Rare HPF (Negative) 07/14/18 13:05 Urine Crystals Rare amorphous HPF (Negative) 07/14/18 13:05 Urine Bacteria Rare HPF (Negative) 07/14/18 13:05 Urine Casts Negative LPF (Negative) 07/14/18 13:05 Urine Mucus Trace (Negative) 07/14/18 13:05 Ur Culture Indicated? C&s done as ordered 07/14/18 13:05 Urine Glucose 100 mg/dL (Negative) 07/14/18 13:05 Stool Campylobacter PCR See comments 07/06/18 12:45 Stool Salmonella PCR See comments 07/06/18 12:45 Stool Shigella PCR See comments 07/06/18 12:45 Vancomycin Trough 18.9 ug/mL (10.0-20.0) 07/20/18 06:17 Shiga Toxin (PCR) See comments 07/06/18 12:45 Path Cons Comment See comment 07/06/18 07:20 Miscellaneous Test Cancelled 07/08/18 06:24
[2018-07-21] MEDS: LORazepam 2 MG/ML VIAL 1 MG IVP (15:22)
[2018-07-21] MEDS: Normal Saline Flush 10 ML SYR IVP (15:27)
--- NOTE | 2018-07-21 15:29 | PT.INTREAT ---
Date of service: 07/21/18 Time of Service: 15:29 PT Notes Inpatient Physical Therapy Treatment Note [facility] Date: 07/21/18 PRECAUTIONS: Fall OBJECTIVE: Christie is mostly non-responsive, although awake, making good eye contact during this morning's PT session. Patient not making good eye contact, non-responsive, although awake, during afternoon PT session. PAIN: No indications of pain BED MOBILITY/TRANSFERS/GAIT: Unable to participate in transfers and gait at this time due to unresponsiveness and inability to follow directions. THEREX: Patient was taken through ROM exercises for both UE and LE. Patient was able to perform AAROM during this morning's session, although allowed for PROM throughout UE and LE, bilaterally, with some resistance into shoulder horizontal abduction and shoulder flexion. ASSESSMENT: Patient was unable to participate much in ROM exercises for UE and LE. She was also unable to perform transfers and gait training at this time due to inability to follow directions. PLAN: Continue with PT's POC TREATMENT CODE/TIME: Session 1: 15 minutes; [id number] Session 2: 15 minutes; [id number]
[2018-07-21] MEDS: Normal Saline 500 ML 30 ML IV (15:39)
--- NOTE | 2018-07-21 16:47 | PT.INPN ---
Date of service: 07/17/18 Time of Service: 16:47 PT Notes Date: 07/17/18 Referring Doctor: Dr. Sigala PT Orders: PT CONSULT: evaluate and treat Precautions: fall, standard Treatment Dates: 07/11/18 - 07/17/18 Patient Profile/Admitting Diagnosis: Patient admitted with c/o weakness, and found in the ER to be hypotensive. During her hospital stay, she developed possible seizure activity versus waxing and waning encephalopathy in the setting of acute illness. She then developed bradycardia and was admitted to the ICU. Initially during her stay, she was receiving PT intervention, although with worsening mobility leading up to her transfer to ICU. She's been been unable to participate in PT intervention on several occasions throughout the past 7 days, due to elevated blood pressure. She has been seen for 6 PT sessions over the past 7 days PMHX: cognitive dysfunction; HTN; GERD; schizophrenia; Graves disease; esophageal stricture s/p dilation Social History/Home Situation: Patient lives alone in a single level home. She uses a 4WW at night, and according to family present at time of eval, has been encouarged to use this during the day as well, although with limited compliance. She has a wiping rag washer who comes in to help with meals, grocery shopping and housework. She has supportive family in the area, who have been present here at the hospital throughout her stay. Equipment Owned/DME: 4WW Subjective: Christie states that she's feeling well today. She reports that she got up with her walker and nursing and sat in the chair yesterday. She is getting ready to do down for tests at this time. Objective: General Observation: Resting in bed with multiple lines in place. Patient has a blood pressure cuff to right upper extremity, pulse oximeter to left index finger, IV in LUE, telemetry, and a Bell catheter. Mental Status: A&Ox3 Pain: denies Vital Signs: monitored on telemetry throughout. Resting BP is 156/94. ROM: Right Upper Extremity: AROM allows shoulder flexion to 120 degrees. Wrist and elbow motion are WNL. Left Upper Extremity: AROM allows shoulder flexion to 120 degrees. Wrist and elbow motion are WNL. Right Lower Extremity: Hip flexion allows 80 degrees functionally. Knee motion 0-120 bilaterally. Ankle motion allows 0 degrees DF only. Left Lower Extremity: Hip flexion allows 80 degrees functionally. Knee motion 0-120 bilaterally. Ankle motion allows 0 degrees DF only. Strength: Right Upper Extremity: Shoulder flexion 3-/5. Biceps 3/5. Left Upper Extremity: Shoulder flexion 3-/5. Biceps 3/5. Right Lower Extremity: Patient is functionally able to perform SLR without extension lag. Ankle DF is 3/5 bilat. HS 3/5 bilat. Left Lower Extremity: Patient is functionally able to perform SLR without extension lag. Ankle DF is 3/5 bilat. HS 3/5 bilat. Sensation: intact distally Bed Mobility/Transfers: Supine to sit: Mod assist of 1 Sit to stand: Min assist Stand to sit: Mod assist Bed to chair: Mod assist x2, 4 WW Gait: Patient able to take 3 steps with need for max cues, mod assist x2 and 4 WW Balance: Static sitting: Fair Dynamic sitting: Fair Static standing: Poor Dynamic standing: Poor Treatment: Today's session consisted of reevaluation, and initiation of transfer training. Patient requires max cues throughout, and assistance as noted above. She also completed therapeutic exercises, as noted on flowsheet, with need for both verbal and tactile cues throughout. Assessment: Patient is a 63 year old female referred to physical therapy services with the diagnosis of diminished mobility related to acute illness. Patient has participated in PT intervention over the past 7 days, although with limited ability to participate due to poorly controlled blood pressures. Today she was able to get up to the chair with significant assistance. She continues to demonstrate significant limitations in functional mobility and strength, and requires continued PT intervention in acute care setting to maximize mobility and allow for safe transition back home once medically stable. Goals: Goals X1 week 1. Supine-Sit : supervision (not met) 2. Sit-Supine : supervision(not met) 3. Sit-Stand : supervision(not met) 4. Stand-Sit : supervision(not met) 5. Bed-Chair : CG with 4WW(not met) 6. Chair-Bed : CG with 4WW(not met) 7. Gait : CG with 4WW x 50'(not met) Plan of Care/Treatment Plan: 1-2x/day, 7 days/week x 1 week. Plan of care has been reviewed with the INSURANCE CLAIMS SUPERVISOR providing the service under Physical Therapy direction. Initiate Physical Therapy intervention for strengthening, bed mobility, transfers, gait, stairs, balance training, use of assistive device. DISCHARGE RECOMMENDATIONS: home with family assistance. Will likely require continued PT intervention via Home Health services TREATMENT CODE/TIME: 25 minutes ([id number])
--- NOTE | 2018-07-21 16:47 | PT.DS ---
Date of service 07/21/18 Time of Service 16:48 PT Notes 07/21/18 Patient has been seen for skilled PT intervention 1-2x/day for 11 days. She has demonstrated limited participation over the past 3 days, and today was transferred to ICU for monitoring. Due to acute medical status change, she will be discharged from PT services. If further PT intervention is warranted, a new consult will be required. Karen Floyd, PT, DPT
[2018-07-21] MEDS: Potassium Chloride Liquid 20 MEQ PKT 10 MEQ PO (17:29)
[2018-07-21] MEDS: OLANZapine 5 MG TAB 10 MG UD (20:15)
[2018-07-21] MEDS: Donepezil 5 MG TAB 10 MG UD (20:16)
[2018-07-21] MEDS: LORazepam 0.5 MG TAB NG ×2 (20:17→21:45)
[2018-07-22] VITALS (62 sets, daily range): BP systolic 78–173; BP diastolic 50–114; PULSE 77–126; RESP 1–37; TEMP 36.7–37.4; O2SAT 88–99
[2018-07-22] MEDS: Levalbuterol 1.25 MG/3 ML UPD VIAL UPD ×6 (01:06→20:17)
[2018-07-22] MEDS: LORazepam 2 MG/ML VIAL 0.5 MG IVP (02:19)
[2018-07-22 07:35] LABS: Abs Immature Grans 0.03 k/cumm (0.0-0.09); Absolute Basophil Count 0.02 k/cumm (0.0-0.2); Absolute Eosinophil Count 0.37 k/cumm (0.0-0.7); Absolute Lymphocyte Count 1.41 k/cumm (1.2-3.4); Absolute Monocyte Count 1.05 k/cumm (0.11-0.7); Absolute Neutrophil Count 7.08 k/cumm (1.2-6.7); Basophils % 0.2; Eosinophils % 3.7; HCT 27.7 % (36.0-46.0); HGB 8.4 g/dL (12.0-15.5); Immature Grans % 0.3; Lymphocytes % 14.2; Mean Corp. HGB Concentration 30.3 g/dL (32.0-36.0); Mean Corpuscular Hemoglobin 24.5 pg (27.0-33.0); Mean Corpuscular Volume 80.8 fL (80-95); Mean Platelet Volume 11.1 fL (8.0-11.0); Monocytes % 10.5; Neutrophils % 71.1; Platelet Count 287 x1000/uL (130-400); RBC 3.43 m/cumm (4.00-5.20); RBC Distribution Width 19.6 % (11.7-14.6); White Blood Cell Count 9.96 k/cumm (4.4-10.8)
[2018-07-22 07:39] LABS: Anion Gap 6.2 mmol/L (3-11); BUN 16 mg/dL (7-18); CO2 30.8 mmol/L (21.0-32.0); CREATININE 1.14 mg/dL (0.55-1.02); Calcium 8.6 mg/dL (8.5-10.1); Chloride 111 mmol/L (98-107); Estimated GFR 48.14 (mL/min/1.73m2); Glucose 125 mg/dL (70-100); Magnesium 1.9 mg/dL (1.8-2.4); Potassium 3.8 mmol/L (3.5-5.1); Sodium 148 mmol/L (136-145)
--- NOTE | 2018-07-22 07:50 | PSYCO_ITS ---
Date of service: 07/21/18 Time of Service: 13:47 History of Present Illness Narrative: Primary Care Provider: Dr. Styles at [facility] Information source: Patient's sister Tiny, chart, medical team Reason for consultation: I was asked by Fernandez Sigala MD to see Christie Gardiner for question of catatonia or other cause of altered mental status. History Of Present Illness: Per Tiny, patient's sister, Christie Gardiner was living fairly independently in an assisted living and at her baseline healthwise when after a few days of feeling not well she was feeling worse and called the ambulance to take her to the emergency room. Per summary in Dr. Sigala's note: Ms. Gardiner has a history of cognitive dysfunction, HTN, GERD, and Schizophrenia. She was initially sent to the emergency room because of several days of nonspecific weakness. In the ED she was noted to be significantly hypotensive with blood pressures in the 60s systolic, but without tachycardia. She was given fluid resuscitation and started on levophed. Initial laboratory evaluation of note for leukocytosis, low-grade pyuria (5-10 white cells), negative chest x-ray and CT of the abdomen that was unremarkable except for a known cyst in the right lower quadrant. She was then referred for admission for further evaluation and treatment. Since her admission Blood pressure eventually improved and she has remained off pressor support after recurrence of her hypotension, thought likely secondary to aspiration pneumonia/pneumonitis. Her Urine and Blood Cultures remained negative, and her C. Diff and Fecal Leukocytes were negative as well. CT of the chest and ECHO have been normal. She did however show evidence of difficulty with swallowing, and a Barium Swallow revealed evidence of barium retention and esophageal dysmotility. Subsequent EGD was negative. Mrs. Gardiner had remained NPO and without oral meds or food for quite some time - successfully underwent PEG tube placement on 07/19 and restarted on her home medications. Still was not at her baseline mental status and with significant waxing and waning symptoms overall, which was worsening. Neurology was consulted and concluded a toxic-metabolic etiology to her dysphagia and altered mental status. Tiny reports that Christie was displaying stereotypic behaviors of sitting up and stretching out her arms before her without any known purpose early on in this current episode of illness, even while she was still living at home. Christie was apparently diagnosed with schizophrenia in her early 20s when she was hospitalized and experiencing hallucinations. Since that time she once stopped her antipsychotic and clearly psychotic symptoms returned with hallucinations and confusions. She has experience catatonia in the past around the time of stopping her antipsychotic with predominantly staring and mutism symptoms. It took a long time after resuming her antipsychotics for her to return to her baseline which is normally functional in ADLs, very social and related. She lived with her mother as an adult, even took care of her mother as mother was dying, and after mother's moved to an assisted living facility. Her sisters are involved and supportive. Per Dr Sigala, Christie was quite interactive and social in the first week of admission for possible aspiration pneumonia until swallowing became difficult due to onset of worsening esophogeal dysmotility. Her psychiatric medications had been stopped in case they were contributing to her decline. PEG tube for continued feeds and resumption of psychiatric medications did not resolved her symptoms. Family and medical team report that her condition continues to decline and they are getting palliative care involved in helping make health care decisions. Today Christie is agitated, requiring on both hands to prevent pulling at lines, is not verbal, but she looked at me in a staring fashion when I entered the room. Throughout the interview she otherwise made no notice of my presence and perseverated on touching/poking at her name band on her wrist. She was not aware of her jaydon falling forward to expose her bare chest, nor seemed to notice sister's or my adjustment of her gown back over her shoulders. She did not follow objects put before her eyes, no echolalia or echopraxia, no response to words or her name. Staring, mutism and an agitated perseveration were present. Sister emphasized that this was nothing like her baseline and nothing that her sister would want to live with. She was hopeful, when presented with the option, that a benzodiazepine challenge might help alleviate these symptoms of likely catatonia. Substances: not reviewed with sister at this visit PAST PSYCHIATRIC HISTORY: as noted above Hospitalizations: Suicide attempts: none known Prescribers: Dr. Styles Medications: - olanzapine 10mg daily as an outpatient. Therapist: REVIEW OF SYSTEMS: patient unable to participate. MENTAL STATUS EXAM: Constitutional: alert, sitting up in bed, behaviors as noted above Psychomotor: +restless/agitation, purposeless movements Speech: none Associations: unable to assess Thought process: unable to assess Thought content unable to assess Suicidal/homicidal ideations: unable to assess Hallucinations none clearly evident but uncertain Mood: unable to assess Affect: blank, staring Attention/Concentration: poort Judgment/insight: poor Oriented x 0 as far as able to assess Language unable to assess Fund of knowledge unable to assess Memory unable to assess Other cognitive testing: none Assessment and Plan (1) Altered mental status: Current visit: Yes Status: Acute History and clinical exam are strongly suggestive of Active Catatonia which can be further assessed with a benzodiazepine challenge. Although her vital signs have been labile due to underlying illness she does not exhibit muscle rigidity which would be concerning for a possible malignant catatonia. Recommendations: - move her to the ICU for repeated IV or PO dosing of ativan q30 minutes until she either becomes sedated or begins to improve in mental status. Dosing required to improve mental status can then be scheduled three times daily to maintain improved mental status. - continue her psychiatric medications for now, particularly olanzapine. I high suspect that while discontinuation of olanzapine worsened catatonia, by sister's report of stereotypic movements, Christie was already beginning to experience mild, possibly fluctuating, catatonia at illness onset. While stopping antispychotics is often the course with new onset catatonia, in Christie's case the best history we have is that cessation of antipsychotic precipitates catatonia. I have discussed the benzo challenge protocol with Dr. Sigala in person. [facility] Medical History Schizophrenia (Chronic) Cognitive developmental delay (Acute) Hypertension (Chronic) Hypothyroidism (Chronic) Social History household members: none current occupational status: disabled Smoking/Tobacco Use Status: Never alcohol intake: never substance use type: does not use additional social history: Lives alone. Results Last Vital Signs Temp 37.4 C 07/22/18 03:30 Pulse 112 H 07/22/18 03:06 Resp 30 H 07/22/18 03:06 BP 136/103 H 07/22/18 03:06 Pulse Ox 99 07/22/18 07:35 Labs : 07/23/18 06:30 07/23/18 06:30 Laboratory Results - last 24 hr 07/21/18 07/22/18 07/22/18 06:44 07:12 07:12 WBC 9.96 RBC 3.43 L Hgb 8.4 L Hct 27.7 L MCV 80.8 MCH 24.5 L MCHC 30.3 L RDW 19.6 H Plt Count 287 MPV 11.1 H Immature Gran % 0.3 Neutrophils % 71.1 Lymphocytes % 14.2 Monocytes % 10.5 Eosinophils % 3.7 Basophils % 0.2 Absolute Neutrophils 7.08 H Absolute Lymphocytes 1.41 Absolute Monocytes 1.05 H Absolute Eosinophils 0.37 Absolute Basophils 0.02 Sodium 146 H 148 H Potassium 3.5 3.8 Chloride 109 H 111 H Carbon Dioxide 28.0 30.8 Anion Gap 9.0 6.2 BUN 9 16 D Creatinine 1.11 H 1.14 H Estimated GFR/1.73 m2 49.64 48.14 Glucose 132 H 125 H Calcium 8.9 8.6 Magnesium 1.7 L 1.9
--- NOTE | 2018-07-22 08:43 | W.PSYCHCONSU ---
Date of service: 07/22/18 History of Present Illness Narrative: Events since initial consultation/last note: Overnight events: lorazepam 1mg led to drop in blood pressure - 0.5mg TID ordered. overnight nurse reported that patient did become more interactive and twice responded no to questions after getting ativan in the night. Staring and agitation continued when she was awake, which was several times throughout the night. Subjective: Patient was sleeping in ICU, snoring loudly with head of bed raised at 45 degrees. She did not respond to voice or touch or physical exam. MSK/Neuro: no rigidity in proximal and distal joints of upper extremities bilaterally. Mental status exam: asleep, in apparent distress. Does not arouse to normal sound and touch stimuli. Assessment and Plan (1) Altered mental status: Current visit: Yes Status: Acute Ms. Gardiner is a 63 year old female with a history of cognitive dysfunction, HTN, GERD, and Schizophrenia. She initially presented to the emergency room because of several days of nonspecific weakness and admitted for possible aspiration pneumonia. In the ED she was noted to be significantly hypotensive with blood pressures in the 60s systolic, but without tachycardia. She was given fluid resuscitation and started on levophed. Initial laboratory evaluation of note for leukocytosis, low-grade pyuria (5-10 white cells), negative chest x-ray and CT of the abdomen that was unremarkable except for a known cyst in the right lower quadrant. She was then referred for admission for further evaluation and treatment. Since her admission Blood pressure eventually improved and she has remained off pressor support after recurrence of her hypotension, thought likely secondary to aspiration pneumonia/pneumonitis. Her Urine and Blood Cultures remained negative, and her C. Diff and Fecal Leukocytes were negative as well. CT of the chest and ECHO have been normal. She did however show evidence of difficulty with swallowing, and a Barium Swallow revealed evidence of barium retention and esophageal dysmotility. Subsequent EGD was negative. Mrs. Gardiner had remained NPO and without oral meds or food for quite some time - successfully underwent PEG tube placement on 07/19 and restarted on her home medications. Still was not at her baseline mental status and with significant waxing and waning symptoms overall, which was worsening. History and clinical exam strongly supported an active catatonia which was confirmed by a lorazepam challenge immediately improving her symptoms, but not resolving them. It may take days to weeks for symptoms of catatonia to fully resolve, so long as her medical condition also improves. She is likely susceptible to catatonic symptoms triggered by physical illness. Recommendations: - continue lorazepam dosing while managing hypotension, and continue to monitor vital signs and monitor for any worsening muscle rigidity that indicates worsening of catatonia. - continue involvement with palliative care to address goals of care for Christie with family. - it patient is converted to comfort measures only, aggressive treatment of Catatonia with lorazepam can be part of comfort measures. - continue olanzapine medication as discontinuation seems to worsen catatonia. [facility] Medical History Schizophrenia (Chronic) Cognitive developmental delay (Acute) Hypertension (Chronic) Hypothyroidism (Chronic) Social History household members: none current occupational status: disabled Smoking/Tobacco Use Status: Never alcohol intake: never substance use type: does not use additional social history: Lives alone. Results Last Vital Signs Temp 37.4 C 07/22/18 03:30 Pulse 112 H 07/22/18 03:06 Resp 30 H 07/22/18 03:06 BP 136/103 H 07/22/18 03:06 Pulse Ox 99 07/22/18 07:35 Labs : 07/23/18 06:30 07/23/18 06:30 Laboratory Results - last 24 hr 07/22/18 07/22/18 07:12 07:12 WBC 9.96 RBC 3.43 L Hgb 8.4 L Hct 27.7 L MCV 80.8 MCH 24.5 L MCHC 30.3 L RDW 19.6 H Plt Count 287 MPV 11.1 H Immature Gran % 0.3 Neutrophils % 71.1 Lymphocytes % 14.2 Monocytes % 10.5 Eosinophils % 3.7 Basophils % 0.2 Absolute Neutrophils 7.08 H Absolute Lymphocytes 1.41 Absolute Monocytes 1.05 H Absolute Eosinophils 0.37 Absolute Basophils 0.02 Sodium 148 H Potassium 3.8 Chloride 111 H Carbon Dioxide 30.8 Anion Gap 6.2 BUN 16 D Creatinine 1.14 H Estimated GFR/1.73 m2 48.14 Glucose 125 H Calcium 8.6 Magnesium 1.9
[2018-07-22] MEDS: Normal Saline 500 ML 30 ML IV (08:57)
[2018-07-22] MEDS: Normal Saline Flush 10 ML SYR 20 ML IVP ×2 (09:13→19:53)
[2018-07-22] MEDS: Pantoprazole 40 MG VIAL IVP (09:14)
[2018-07-22] MEDS: Memantine 5 MG TAB 10 MG UD ×2 (09:14→19:51)
[2018-07-22] MEDS: Furosemide 40 MG/4 ML VIAL IVP (09:14)
[2018-07-22] MEDS: Loperamide 2 MG CAP UD (09:15)
[2018-07-22] MEDS: Magnesium Oxide 400 MG TAB PO (09:15)
[2018-07-22] MEDS: LORazepam 0.5 MG TAB NG ×2 (09:15→13:46)
[2018-07-22] MEDS: Enoxaparin 40 MG/0.4 ML SYR SC (09:15)
[2018-07-22] MEDS: Methimazole 5 MG TAB 10 MG UD (09:15)
--- NOTE | 2018-07-22 10:36 | PDOC.CMPRO ---
Care Management Progress Note S/O: Christie remains in the ICU with continued close monitoring of possible catatonia being managed by Dr. Sigala in conjunction with Dr. Scott. She continues to stare off and not engage with care. She is unable to follow directions and slow to answer questions per RN, though it appears daytime nursing noted Christie is progressively more alert and alert for longer periods of time. CM will continue to follow. Family remains hopeful that Christie can return to baseline and independent level of functioning versus transition to comfort measures only. A: 63 yo disabled female admitted for hypotension, aspiration now with a PEG tube placement. P: Discharge disposition undetermined at this time, no change in status today patient remains ICU level of care. Palliative to revisit comfort measures versus progressive treatment on Saturday. CM will continue to provide support ongoing discharge planning and disposition.
[2018-07-22] MEDS: Potassium Chloride Liquid 20 MEQ PKT NG (10:41)
[2018-07-22] MEDS: Nystatin POWDER 60 GM JAR TP ×2 (10:41→19:51)
[2018-07-22] MEDS: Normal Saline Flush 10 ML SYR IVP ×2 (11:18→14:04)
[2018-07-22] MEDS: LORazepam 1 MG TAB NG ×2 (12:11→14:06)
[2018-07-22 14:26] LABS: HCT 31.3 % (36.0-46.0); HGB 9.8 g/dL (12.0-15.5)
--- NOTE | 2018-07-22 15:00 | PGE_ITS ---
Date of Service Date of service: 07/22/18 Time of Service: 14:58 Assessment and Plan (1) Dysphagia: Current visit: Yes Status: Acute History of benign distal esophageal stricture by EGD, s/p dilation in 2007. There was also noted Unprotected aspiration as well as large GERD with evidence of esophagitis. However, repeat EGD normal and Barium Swallow performed this hospitalization with no evidence of stricture, but with esophageal dysmotility and retention of barium in the esophagus. Patient treated for Aspiration pneumonia - s/p PEG tube placement 07/19. Maintain NPO status for now, continue Tube Feeds. Also restarted home meds via Peg Tube, with continued aspiration precautions. Due to hypotension from trial of ativan will discontinue short acting Cardizem, and initiate QHS Imipramine. Continue treatment of GERD with IV PPI therapy. Will ultimately need outpatient manometry when mental status is back to baseline, and patient is able to cooperate. Of note, currently also having problems with initiation of swallowing which appears new and may be related to her altered mental status and holding of her psych medications. Her medications have been restarted. (2) Schizophrenia: Current visit: No Status: Chronic Restarted home meds as above on 07/19. Ms. Gardiner was formally evaluated by psychiatry - per verbal report from Dr. 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 Per recommendations patient was transferred to the ICU, and initiated on IV Ativan with significant hypotension, but also with improved mentation, interaction, following commands, and now increasing verbal response. Started on standing, 3 times daily low dose lorazepam, with essentially Q2H administration of additional Lorazepam to guage for response, with further titration based on results. Psych input appreciated. (3) Esophageal dysmotility: Current visit: Yes Status: Acute Treatment as above. (4) Hypotension: Current visit: Yes Status: Resolved Initially, hypotensiven to the point of requiring pressor support, and with evidence of end-organ damage with KJ and elevation in Lactate - unknown etiology. Potential Dehydration in the setting of initiation of HCTZ vs. Sepsis - although no evidence of infiltrate or acute infection initially. Does not appear to have been adrenal insufficiency, with steroids weaned off. Echo wi thout clear cardiogenic etiology, and no persistent arrhythmias on monitor. Aspiration pneumonia/recurrent aspiration events now seem like the most likely scenario. Levophed currently ordered but not in use, in case patient experiences repeat hypotension while receiving a Lorazepam challenge. (5) Altered mental status: Current visit: Yes Status: Acute Initially described as episodes of confusion, 'staring', near unresponsive state while awake, with potential post-ictal like state - now appears different as patient's affect and verbal responsiveness have declined significantly. No evidence of active infection - thought potentially related to side-effect of Keppra (depression/confusion), now without change even after d/c. Potentially related to witholding of chronic psychiatric medications, catatonia per verbal report from psychiatry. Reinitiated medications 07/19. Currently in ICU for trial of benzodiazepine therapy as above. EEG and MRI X2 were negative. (6) Bradycardia: Current visit: No Status: Acute Abnormally normal heart rate during initial bout of hypotension, then frankly bradycardic - reportedly had a bout of junctional rhythm as well. However, review of EKG by Cardiology/Electrophysiology with note of Sinus Bradycardia. Avoid jovan agents - also with tachycardia noted. 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 Cardiology is aware if patient becomes unstable. (7) Hypernatremia: Current visit: Yes Status: Acute Improved and now mild. Continue Tube Feeds, and increase Free Water via Peg Tube. (8) KJ (acute kidney injury): Current visit: Yes Status: Resolved Creatinine stable. (9) DVT prophylaxis: Current visit: Yes Status: Acute Continue Enoxaparin. (10) Advance directive on file: Current visit: Yes Status: Acute DNR/DNI. Subjective Interval history since last seen: 63-year-old woman with history of cognitive delay and Hypertension, admitted from [facility] Emergency Department with a diagnosis of Hypotension. Ms. Gardiner has a history of cognitive dysfunction, HTN, GERD, and Schizophrenia. She was initially sent to the emergency room because of several days of nonspecific weakness. In the ED she was noted to be significantly hypotensive with blood pressures in the 60s systolic, but without tachycardia. She was given fluid resuscitation and started on levophed. Initial laboratory evaluation of note for leukocytosis, low-grade pyuria (5-10 white cells), negative chest x-ray and CT of the abdomen that was unremarkable except for a known cyst in the right lower quadrant. She was then referred for admission for further evaluation and treatment. Since her admission Blood pressure eventually improved and she has remained off pressor support after recurrence of her hypotension, thought likely secondary to aspiration pneumonia/pneumonitis. Her Urine and Blood Cultures remained negative, and her C. Diff and Fecal Leukocytes were negative as well. CT of the chest and ECHO have been normal. She has however shown evidence of difficulty with swallowing, and a Barium Swallow revealed evidence of barium retention and esophageal dysmotility. Subsequent EGD was negative. Mrs. Gardiner had remained NPO and without oral meds or food for quite some time - successfully underwent PEG tube placement on 07/19 and restarted on her home medications. Still was not at her baseline mental status and with significant waxing and waning symptoms overall, which was worsening. Described as likely catatonia by psychiatry, she was moved to the ICU and given trial of benzodiazepine therapy. No other events reported. Remains afebrile. Exam Narrative Exam Narrative: General: Patient appears stable, awake, appears alert this morning, improved responsiveness and now following commands. Minimally verbal only. NAD. Neck: Supple CV: Regular, tachycardic, S1S2, No rubs, murmurs, or gallops. Pulmonary: Improved breath sounds overall, appears clear but limited due to patient's lack of cooperation and body habitus. Abdomen: + Bowel Sounds, soft, nontender, nondistended Vascular: No lower extremity edema Objective Objective Clinical Data: Abnormal lab results 07/22/18 07/22/18 07/22/18 Range/Units 07:12 07:12 14:12 RBC 3.43 L (4.00-5.20) m/cumm Hgb 8.4 L 9.8 L (12.0-15.5) g/dL Hct 27.7 L 31.3 L (36.0-46.0) % MCH 24.5 L (27.0-33.0) pg MCHC 30.3 L (32.0-36.0) g/dL RDW 19.6 H (11.7-14.6) % MPV 11.1 H (8.0-11.0) fL Absolute Neutrophils 7.08 H (1.2-6.7) k/cumm Absolute Monocytes 1.05 H (0.11-0.7) k/cumm Sodium 148 H (136-145) mmol/L Chloride 111 H (98-107) mmol/L Creatinine 1.14 H (0.55-1.02) mg/dL Glucose 125 H (70-100) mg/dL Vital Signs Temperature 37.1 C 07/22/18 13:08 Temperature Source Tympanic 07/22/18 13:08 Pulse 116 H 07/22/18 14:00 Pulse Rhythm Regular 07/21/18 08:20 Pulse 117 H 07/22/18 14:01 Respiratory Rate 29 H 07/22/18 14:01 Respiratory Effort Non-Labored 07/22/18 13:08 Respiratory Depth Normal 07/22/18 13:08 Respiratory Pattern Tachypnea 07/22/18 13:08 Blood Pressure 135/101 H 07/22/18 14:00 Blood Pressure Mean 109 07/22/18 14:00 Blood Pressure Position Supine 07/22/18 13:08 Pulse Oximetry 94 L 07/22/18 14:01 Respiratory End-tidal CO2 34 07/07/18 15:01 Oxygen Delivery Method Room Air 07/22/18 13:25 Oxygen Flow Rate 0 07/22/18 13:25 Fraction of Inspired Oxygen (FIO2) 28 07/16/18 00:30 Pain Level 0 07/22/18 13:08 Comment 07/21/18 15:40 Intake & Output 07/21/18 07/22/18 07/22/18 23:59 11:59 23:59 Intake Total 0 / 241 1870 / 2990 1120 / 2990 Output Total 2600 / 4955 2300 / 2300 Balance -2600 / -4714 1870 / 690 -1180 / 690 Weight 97.3 kg 94.3 kg Intake: IV 0 / 0 500 / 500 Oral 1370 / 1970 600 / 1970 Intake, Tube Feeding Amount 520 / 520 Output: Urine 2600 / 4650 2300 / 2300 Other: Urine Color Pale Yellow Yellow Straw Urine Appearance Clear Clear Urine Odor None Comment Passing clear yellow urine QS. Bell catheter. Bell catheter. Stool Occult Blood Negative Stool Size Large Stool Characteristics Brown Laboratory Results WBC 9.96 k/cumm (4.4-10.8) 07/22/18 07:12 RBC 3.43 m/cumm (4.00-5.20) L 07/22/18 07:12 Hgb 9.8 g/dL (12.0-15.5) L 07/22/18 14:12 Hct 31.3 % (36.0-46.0) L 07/22/18 14:12 MCV 80.8 fL (80-95) 07/22/18 07:12 MCH 24.5 pg (27.0-33.0) L 07/22/18 07:12 MCHC 30.3 g/dL (32.0-36.0) L 07/22/18 07:12 RDW 19.6 % (11.7-14.6) H 07/22/18 07:12 Plt Count 287 x1000/uL (130-400) 07/22/18 07:12 MPV 11.1 fL (8.0-11.0) H 07/22/18 07:12 Abs Immat Gran (auto) Cancelled 07/13/18 08:05 Immature Gran % 0.3 07/22/18 07:12 Neutrophils % 71.1 07/22/18 07:12 Band Neutrophils % Cancelled 07/13/18 08:05 Lymphocytes % 14.2 07/22/18 07:12 Atypical Lymphs % Cancelled 07/13/18 08:05 Monocytes % 10.5 07/22/18 07:12 Eosinophils % 3.7 07/22/18 07:12 Basophils % 0.2 07/22/18 07:12 Absolute Neutrophils 7.08 k/cumm (1.2-6.7) H 07/22/18 07:12 Absolute Lymphocytes 1.41 k/cumm (1.2-3.4) 07/22/18 07:12 Absolute Monocytes 1.05 k/cumm (0.11-0.7) H 07/22/18 07:12 Absolute Eosinophils 0.37 k/cumm (0.0-0.7) 07/22/18 07:12 Absolute Basophils 0.02 k/cumm (0.0-0.2) 07/22/18 07:12 Metamyelocytes Cancelled 07/13/18 08:05 Myelocytes Cancelled 07/13/18 08:05 Promyelocytes Cancelled 07/13/18 08:05 Nucleated RBCs Cancelled 07/13/18 08:05 Differential Comment Rbc morph reviewed 07/17/18 06:35 Other Cell Type Cancelled 07/13/18 08:05 RBC Morphology See below 07/17/18 06:35 Polychromasia Present 07/17/18 06:35 Hypochromasia 1+ 07/17/18 06:35 Poikilocytosis 1+ 07/17/18 06:35 Basophilic Stippling Cancelled 07/13/18 08:05 Anisocytosis 2+ 07/17/18 06:35 Microcytosis 2+ 07/06/18 07:20 Macrocytosis Cancelled 07/13/18 08:05 Spherocytes Cancelled 07/13/18 08:05 Target Cells Cancelled 07/13/18 08:05 Tear Drop Cells Cancelled 07/13/18 08:05 Ovalocytes 2+ 07/17/18 06:35 Stomatocytes Cancelled 07/13/18 08:05 [place] Bodies Cancelled 07/13/18 08:05 Girma Cells Cancelled 07/13/18 08:05 Acanthocytes (Spur) Cancelled 07/13/18 08:05 Schistocytes Cancelled 07/13/18 08:05 D-Dimer 1329 ng/mlFEU (<500) H 07/07/18 21:15 Sodium 148 mmol/L (136-145) H 07/22/18 07:12 Potassium 3.8 mmol/L (3.5-5.1) 07/22/18 07:12 Chloride 111 mmol/L (98-107) H 07/22/18 07:12 Carbon Dioxide 30.8 mmol/L (21.0-32.0) 07/22/18 07:12 Anion Gap 6.2 mmol/L (3-11) 07/22/18 07:12 BUN 16 mg/dL (7-18) D 07/22/18 07:12 Creatinine 1.14 mg/dL (0.55-1.02) H 07/22/18 07:12 Estimated GFR/1.73 m2 48.14 (mL/min/1.73m2) 07/22/18 07:12 Glucose 125 mg/dL (70-100) H 07/22/18 07:12 Lactate 1.0 mmol/L (0.6-1.4) 07/06/18 07:20 Calcium 8.6 mg/dL (8.5-10.1) 07/22/18 07:12 Magnesium 1.9 mg/dL (1.8-2.4) 07/22/18 07:12 Total Bilirubin 0.3 mg/dL (0.2-1.0) 07/12/18 05:50 Conjugated Bilirubin 0.10 mg/dL (0.00-0.20) 07/12/18 05:50 AST 24 U/L (15-37) 07/12/18 05:50 ALT 47 U/L (12-78) 07/12/18 05:50 Alkaline Phosphatase 65 U/L (46-116) 07/12/18 05:50 Ammonia < 10 umol/L (11-32) L 07/15/18 10:20 Troponin I 0.02 ng/mL (0.00-0.06) 07/08/18 05:00 NT-Pro-B Natriuret Pep 1154 pg/mL (-299) H 07/07/18 21:15 Total Protein 4.6 g/dL (6.4-8.2) L 07/12/18 05:50 Albumin 2.2 g/dL (3.4-5.0) L 07/12/18 05:50 Lipase 252 U/L (73-393) 07/04/18 13:15 Procalcitonin <0.10 ng/mL (<or=1.5) 07/08/18 06:24 Calcitonin Cancelled 07/08/18 06:24 TSH 1.09 uIU/mL (0.358-3.74) 07/06/18 07:20 Urine Color Yellow (Yellow) 07/14/18 13:05 Urine Clarity Clear 07/14/18 13:05 Urine pH 5.0 (5-8) 07/14/18 13:05 Ur Specific [place] <= 1.005 (1.005-1.025) 07/14/18 13:05 Urine Protein Negative mg/dL (Negative) 07/14/18 13:05 Urine Ketones Negative mg/dL (Negative) 07/14/18 13:05 Urine Blood Small (Negative) H 07/14/18 13:05 Urine Nitrite Negative (Negative) 07/14/18 13:05 Urine Bilirubin Negative (Negative) 07/14/18 13:05 Urine Urobilinogen 0.2 EU/dL (Up TO 0.2) 07/14/18 13:05 Ur Leukocyte Esterase Negative (Negative) 07/14/18 13:05 Urine RBC 3-5 (0-2) H 07/14/18 13:05 Urine WBC 0-2 HPF (0-5) 07/14/18 13:05 Ur Epithelial Cells Rare HPF (Negative) 07/14/18 13:05 Urine Crystals Rare amorphous HPF (Negative) 07/14/18 13:05 Urine Bacteria Rare HPF (Negative) 07/14/18 13:05 Urine Casts Negative LPF (Negative) 07/14/18 13:05 Urine Mucus Trace (Negative) 07/14/18 13:05 Ur Culture Indicated? C&s done as ordered 07/14/18 13:05 Urine Glucose 100 mg/dL (Negative) 07/14/18 13:05 Stool Campylobacter PCR See comments 07/06/18 12:45 Stool Salmonella PCR See comments 07/06/18 12:45 Stool Shigella PCR See comments 07/06/18 12:45 Vancomycin Trough 18.9 ug/mL (10.0-20.0) 07/20/18 06:17 Shiga Toxin (PCR) See comments 07/06/18 12:45 Path Cons Comment See comment 07/06/18 07:20 Miscellaneous Test Cancelled 07/08/18 06:24
[2018-07-22] MEDS: LORazepam 0.5 MG TAB 1 MG NG (19:54)
[2018-07-22] MEDS: Donepezil 5 MG TAB 10 MG UD (20:44)
[2018-07-22] MEDS: OLANZapine 5 MG TAB 10 MG UD (20:44)
[2018-07-23] VITALS (88 sets, daily range): BP systolic 81–179; BP diastolic 56–142; PULSE 77–119; RESP 2–38; TEMP 36.6–37.3; O2SAT 88–97
[2018-07-23] MEDS: Normal Saline Flush 10 ML SYR 20 ML IVP ×2 (06:26→19:49)
[2018-07-23 07:14] LABS: Abs Immature Grans 0.04 k/cumm (0.0-0.09); Absolute Basophil Count 0.04 k/cumm (0.0-0.2); Absolute Eosinophil Count 0.63 k/cumm (0.0-0.7); Absolute Lymphocyte Count 1.45 k/cumm (1.2-3.4); Absolute Monocyte Count 1.14 k/cumm (0.11-0.7); Absolute Neutrophil Count 7.82 k/cumm (1.2-6.7); Basophils % 0.4; Eosinophils % 5.7; HCT 29.5 % (36.0-46.0); HGB 9.1 g/dL (12.0-15.5); Immature Grans % 0.4; Mean Corp. HGB Concentration 30.8 g/dL (32.0-36.0); Mean Corpuscular Hemoglobin 24.9 pg (27.0-33.0); Mean Corpuscular Volume 80.6 fL (80-95); Mean Platelet Volume 11.5 fL (8.0-11.0); Monocytes % 10.2; Neutrophils % 70.3; Platelet Count 322 x1000/uL (130-400); RBC 3.66 m/cumm (4.00-5.20); RBC Distribution Width 19.6 % (11.7-14.6); White Blood Cell Count 11.13 k/cumm (4.4-10.8)
[2018-07-23 07:42] LABS: Anion Gap 8.6 mmol/L (3-11); BUN 17 mg/dL (7-18); CO2 30.4 mmol/L (21.0-32.0); CREATININE 1.08 mg/dL (0.55-1.02); Calcium 8.9 mg/dL (8.5-10.1); Chloride 107 mmol/L (98-107); Estimated GFR 51.24 (mL/min/1.73m2); Glucose 127 mg/dL (70-100); Magnesium 1.8 mg/dL (1.8-2.4); Potassium 3.6 mmol/L (3.5-5.1); Sodium 146 mmol/L (136-145)
[2018-07-23] MEDS: Loperamide 2 MG CAP UD (08:02)
[2018-07-23] MEDS: Memantine 5 MG TAB 10 MG UD ×2 (08:03→19:47)
[2018-07-23] MEDS: Methimazole 5 MG TAB UD (08:03)
[2018-07-23] MEDS: LORazepam 0.5 MG TAB 1 MG NG (08:03)
[2018-07-23] MEDS: Enoxaparin 40 MG/0.4 ML SYR SC (08:04)
[2018-07-23] MEDS: Pantoprazole 40 MG VIAL IVP (08:04)
--- NOTE | 2018-07-23 08:45 | PDOC.CMPRO ---
Care Management Progress Note S/O: CM spoke with Dr. Ramirez who met with Christie Franks's sister for Palliative Care. CM met with Dr. Sigala as well as Christie's sisters Tiny and Netta to discuss medical status, prognosis and next steps. After being well informed by both doctors, the sisters reported feeling confident in continuing with Christie's current treatments with the hope she will return to her functional mental baseline and then be able to follow up with GI in regards to her esophageal functioning. Christie remains on aspiration precautions; NPO with PEG tube feeds. Christie was sleeping when CM was in her room, she coughed a few times and was snoring, but not alert to engage with this technical writer and editor. Per MD note; 07/22/18: Restarted home meds as above on 07/19. Ms. Gardiner was formally evaluated by psychiatry - per verbal report from Dr. Scott her current condition may represent Catatonia following abrupt disruption of her medications, Especially Olanzapine(Of note, currently also having problems with initiation of swallowing which appears new and may be related to her altered mental status and holding of her psych medications). Per recommendations patient was transferred to the ICU, and initiated on IV Ativan with significant hypotension, but also with improved mentation, interaction, following commands, and now increasing verbal response. Due to hypotension from trial of ativan will discontinue short acting Cardizem, and initiate QHS Imipramine. A: 63 yo disabled female admitted for hypotension, aspiration pneumonia now with a PEG tube placement. P: Discharge disposition undetermined at this time, no change in status today patient remains ICU level of care. Palliative to revisit comfort measures versus progressive treatment. Family remains hopeful that Christie can return to baseline and independent level of functioning versus transition to comfort measures only. In this event, Christie would require eventual follow up for outpatient manometry per MD. CM will continue to provide support ongoing discharge planning and disposition.
[2018-07-23] MEDS: Levalbuterol 1.25 MG/3 ML UPD VIAL UPD ×3 (09:17→19:47)
[2018-07-23] MEDS: Potassium Chloride 20 MEQ TABCR 40 MEQ UD (10:03)
[2018-07-23] MEDS: Magnesium Oxide 400 MG TAB UD (10:03)
[2018-07-23] MEDS: Normal Saline Flush 10 ML SYR IVP ×2 (10:04→19:41)
[2018-07-23] MEDS: LORazepam 2 MG/ML VIAL 1 MG IVP ×9 (10:04→22:52)
[2018-07-23] MEDS: Nystatin POWDER 60 GM JAR TP ×2 (10:16→19:48)
--- NOTE | 2018-07-23 11:52 | W.PALLCONSUL ---
Date of service: 07/23/18 Time of Service: 09:52 History of Present Illness Chief Complaint: Weakness, esophageal dysfunction, catatonia Narrative: Christie is a 63-year-old woman with schizophrenia previously living successfully in a assisted living with family support. She developed weakness and was brought to the hospital. After a lengthy workup she was found to hear esophageal dysmotility. During the course of the workup, due to her aspiration, she was n.p.o. and was unable to take her psych meds. On Saturday a PEG tube was placed. Her psych meds were restarted on Saturday. Due to the abrupt stopping of many of her psych meds, Dr. Jacob, psychiatry, felt that she was going through catatonia and recommended Ativan. The Ativan dropped Christie's blood pressure significantly requiring blood pressure pressors to maintain adequate BP. Christie has come around some. She is better able to handle her secretions. She still needs the bed to be at about 50 degrees. She now appears to look more actually than through you. I am meeting with her Sister Tiny to discuss goals of care. On Saturday I had met with Christie's sister Netta. Netta was quite upset with how Christie was appearing to be. She made the remark my mother would be a good asked if she saw how Christie was at this time.After discussing with Dr. Sigala and Netta the plan was to give Christie a few days to see how she is improving. Dr. Sigala feels that Christie is starting to wake up. She still has a long way to go. Tiny feels strongly that Christie would not want to live in a care home and would not like to be hooked up to tube feedings for the rest of her life. I had tried to call Netta at her home [phone] but was unable to reach her. I will try again on her cell at [phone]. Netta wanted to discuss next steps today Consults Consult date: 07/23/18 Requesting physician: Fernandez Siagla Assessment and Plan (1) Gastrostomy in place: Current visit: Yes Status: Acute (2) Esophageal dysmotility: Current visit: Yes Status: Acute (3) Spell of behavior change: Current visit: No Status: Acute (4) Altered mental status: Current visit: Yes Status: Acute (5) Hypotension: Current visit: Yes Status: Resolved I have spent more than 50% of time in counseling with this family. In discussion with Tiny, Tiny feels strongly that Christie would not like to live the way that she is. Her doctor, Dr. Sigala feels that she is making progress. I am waiting to speak with Netta to get a better idea of next steps. (tried again 12:09) Netta had spoken to Dr Sigala in the interim. She wants to continue the present treatment to see if Regina can come out of her catatonia. She does not think Regina would want to continue if this is the best her life will be. She is uncertain if life in a care home with food only through a feeding tube is what Regina would want either. I am gone for the next [address] Bourgeois knows about Regina and her present case and is happy to visit with the family if they wish. I will see Regina next week. This document was created by [employer] and may contain grammatical and translation errors. Review of Systems Constitutional Reports lethargy and Reports malaise Eyes Reports system reviewed and no additional complaints, except as docu ENT Comments: NPO Cardiovascular Reports system reviewed and no additional complaints, except as docu Comments: did not indicate to sister that she was in any pain hypotension with administration of lorazapam. Now on pressors to mintain BP Neurologic Reports behavioral changes Psychiatric Reports behavioral changes Comments: possible catatonia [facility] Medical History Schizophrenia (Chronic) Cognitive developmental delay (Acute) Hypertension (Chronic) Hypothyroidism (Chronic) Social History household members: none current occupational status: disabled Smoking/Tobacco Use Status: Never alcohol intake: never substance use type: does not use additional social history: Lives alone. Exam Narrative Exam Narrative: Christie is lying in bed in a 50 degree angle. She seems tired. She did look more at this, especially concentrating on her Sister Tiny. She allowed nursing to do their thing, but did not interact with them. She did appear comfortable, and not anxious Results Last Vital Signs Temp 97.9 F 07/23/18 08:30 Pulse 105 H 07/23/18 04:00 Resp 25 H 07/23/18 04:01 BP 149/100 H 07/23/18 04:00 Pulse Ox 94 L 07/23/18 04:01 Labs : 07/23/18 06:30 07/23/18 06:30 Laboratory Results - last 24 hr 07/22/18 07/23/18 07/23/18 14:12 06:30 06:30 WBC 11.13 H RBC 3.66 L Hgb 9.8 L 9.1 L Hct 31.3 L 29.5 L MCV 80.6 MCH 24.9 L MCHC 30.8 L RDW 19.6 H Plt Count 322 MPV 11.5 H Immature Gran % 0.4 Neutrophils % 70.3 Lymphocytes % 13.0 Monocytes % 10.2 Eosinophils % 5.7 Basophils % 0.4 Absolute Neutrophils 7.82 H Absolute Lymphocytes 1.45 Absolute Monocytes 1.14 H Absolute Eosinophils 0.63 Absolute Basophils 0.04 Sodium 146 H Potassium 3.6 Chloride 107 Carbon Dioxide 30.4 Anion Gap 8.6 BUN 17 Creatinine 1.08 H Estimated GFR/1.73 m2 51.24 Glucose 127 H Calcium 8.9 Magnesium 1.8
--- NOTE | 2018-07-23 12:07 | PCNE_ITS ---
Date of service: 07/23/18 Time of Service: 09:52 History of Present Illness Chief Complaint: Weakness, esophageal dysfunction, catatonia Narrative: Christie is a 63-year-old woman with schizophrenia previously living successfully in a assisted living with family support. She developed weakness and was brought to the hospital. After a lengthy workup she was found to hear esophageal dysmotility. During the course of the workup, due to her aspiration, she was n.p.o. and was unable to take her psych meds. On Saturday a PEG tube was placed. Her psych meds were restarted on Saturday. Due to the abrupt stopping of many of her psych meds, Dr. Jacob, psychiatry, felt that she was going through catatonia and recommended Ativan. The Ativan dropped Christie's bloo d pressure significantly requiring blood pressure pressors to maintain adequate BP. Christie has come around some. She is better able to handle her secretions. She still needs the bed to be at about 50 degrees. She now appears to look more actually than through you. I am meeting with her Sister Tiny to discuss goals of care. On Saturday I had met with Christie's sister Netta. Netta was quite upset with how Christie was appearing to be. She made the remark my mother would be a good asked if she saw how Christie was at this time.After discussing with Dr. Sigala and Netta the plan was to give Christie a few days to see how she is improving. Dr. Sigala feels that Christie is starting to wake up. She still has a long way to go. Tiny feels strongly that Christie would not want to live in a fpc and would not like to be hooked up to tube feedings for the rest of her life. I had tried to call Netta at her home [phone] but was unable to reach her. I will try again on her cell at [phone]. Netta wanted to discuss next steps today Consults Consult date: 07/23/18 Requesting physician: Fernandez Sigala Assessment and Plan (1) Gastrostomy in place: Current visit: Yes Status: Acute (2) Esophageal dysmotility: Current visit: Yes Status: Acute (3) Spell of behavior change: Current visit: No Status: Acute (4) Altered mental status: Current visit: Yes Status: Acute (5) Hypotension: Current visit: Yes Status: Resolved I have spent more than 50% of time in counseling with this family. In discussion with Tiny, Tiny feels strongly that Christie would not like to live the way that she is. Her doctor, Dr. Sigala feels that she is making progress. I am waiting to speak with Netta to get a better idea of next steps. (tried again 12:09) Netta had spoken to Dr Sigala in the interim. She wants to continue the present treatment to see if Regina can come out of her catatonia. She does not think Regina would want to continue if this is the best her life will be. She is uncertain if life in a fpc with food only through a feeding tube is what Regina would want either. I am gone for the next [address] Bourgeois knows about Regina and her present case and is happy to visit with the family if they wish. I will see Regina next week. This document was created by [employer] and may contain grammatical and translation errors. Review of Systems Constitutional Reports lethargy and Reports malaise Eyes Reports system reviewed and no additional complaints, except as docu ENT Comments: NPO Cardiovascular Reports system reviewed and no additional complaints, except as docu Comments: did not indicate to sister that she was in any pain hypotension with administration of lorazapam. Now on pressors to mintain BP Neurologic Reports behavioral changes Psychiatric Reports behavioral changes Comments: possible catatonia [facility] Medical History Schizophrenia (Chronic) Cognitive developmental delay (Acute) Hypertension (Chronic) Hypothyroidism (Chronic) Social History household members: none current occupational status: disabled Smoking/Tobacco Use Status: Never alcohol intake: never substance use type: does not use additional social history: Lives alone. Exam Narrative Exam Narrative: Christie is lying in bed in a 50 degree angle. She seems tired. She did look more at this, especially concentrating on her Sister Tiny. She allowed nursing to do their thing, but did not interact with them. She did appear comfortable, and not anxious Results Last Vital Signs Temp 97.9 F 07/23/18 08:30 Pulse 105 H 07/23/18 04:00 Resp 25 H 07/23/18 04:01 BP 149/100 H 07/23/18 04:00 Pulse Ox 94 L 07/23/18 04:01 Labs : 07/23/18 06:30 07/23/18 06:30 Laboratory Results - last 24 hr 07/22/18 07/23/18 07/23/18 14:12 06:30 06:30 WBC 11.13 H RBC 3.66 L Hgb 9.8 L 9.1 L Hct 31.3 L 29.5 L MCV 80.6 MCH 24.9 L MCHC 30.8 L RDW 19.6 H Plt Count 322 MPV 11.5 H Immature Gran % 0.4 Neutrophils % 70.3 Lymphocytes % 13.0 Monocytes % 10.2 Eosinophils % 5.7 Basophils % 0.4 Absolute Neutrophils 7.82 H Absolute Lymphocytes 1.45 Absolute Monocytes 1.14 H Absolute Eosinophils 0.63 Absolute Basophils 0.04 Sodium 146 H Potassium 3.6 Chloride 107 Carbon Dioxide 30.4 Anion Gap 8.6 BUN 17 Creatinine 1.08 H Estimated GFR/1.73 m2 51.24 Glucose 127 H Calcium 8.9 Magnesium 1.8
--- NOTE | 2018-07-23 13:41 | PGE_ITS ---
Date of Service Date of service: 07/23/18 Time of Service: 13:39 Assessment and Plan (1) Schizophrenia: Current visit: No Status: Chronic Restarted home meds as above on 07/19. Ms. Gardiner was formally evaluated by psychiatry - per verbal report from Dr. 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 Per recommendations patient was transferred to the ICU, and initiated on IV Ativan with significant hypotension, but also with improved mentation, interaction, following commands, and now increasing verbal response. Conitnue on standing, 3 times daily low dose lorazepam. Initiate Levophed for blood pressure control, and continue aggressive IV Ativan when able from a sedation standpoint. Continue further titration based on results. Psych input appreciated. (2) Dysphagia: Current visit: Yes Status: Acute History of benign distal esophageal stricture by EGD, s/p dilation in 2007. There was also noted Unprotected aspiration as well as large GERD with evidence of esophagitis. However, repeat EGD normal and Barium Swallow performed this hospitalization with no evidence of stricture, but with esophageal dysmotility and retention of barium in the esophagus. Patient treated for Aspiration pneumonia - s/p PEG tube placement 07/19. Maintain NPO status for now, continue Tube Feeds. Also restarted home meds via Peg Tube, with continued aspiration precautions. Due to hypotension from trial of ativan discontinued short acting Cardizem and initiated QHS Imipramine. Continue treatment of GERD with IV PPI therapy. Will ultimately need outpatient manometry when mental status is back to baseline and patient is able to cooperate. Of note, currently also having problems with initiation of swallowing which appears new and may be related to her altered mental status and holding of her psych medications. Her psychiatric medications have been restarted and administered via PEG tube. (3) Esophageal dysmotility: Current visit: Yes Status: Acute Treatment as above. (4) Hypotension: Current visit: Yes Status: Resolved Initially, hypotensiven to the point of requiring pressor support, and with evidence of end-organ damage with KJ and elevation in Lactate - unknown etiology. Potential Dehydration in the setting of initiation of HCTZ vs. Sepsis - although no evidence of infiltrate or acute infection initially. Does not appear to have been adrenal insufficiency, with steroids weaned off. Echo without clear cardiogenic etiology, and no persistent arrhythmias on monitor. Aspiration pneumonia/recurrent aspiration events now seem like the most likely scenario. Levophed currently ordered but not in use, in case patient experiences repeat hypotension while receiving Lorazepam challenge. (5) Altered mental status: Current visit: Yes Status: Acute Initially described as episodes of confusion, 'staring', near unresponsive state while awake, with potential post-ictal like state - now appears different as patient's affect and verbal responsiveness have declined significantly. No evidence of active infection - thought potentially related to side-effect of Keppra (depression/confusion), now without change even after d/c. Potentially related to witholding of chronic psychiatric medications, catatonia per report from psychiatry. Reinitiated medications 07/19. Currently in ICU for trial of benzodiazepine therapy as above. EEG and MRI X2 were negative. (6) Bradycardia: Current visit: No Status: Acute Abnormally normal heart rate during initial bout of hypotension, then frankly bradycardic - reportedly had a bout of junctional rhythm as well. However, review of EKG by Cardiology/Electrophysiology with note of Sinus Bradycardia. Avoid jovan agents - also with tachycardia noted. 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 (7) Hypernatremia: Current visit: Yes Status: Acute Improved and now mild. Continue Tube Feeds, and increased Free Water via Peg Tube. (8) KJ (acute kidney injury): Current visit: Yes Status: Resolved Creatinine stable. (9) DVT prophylaxis: Current visit: Yes Status: Acute Continue Enoxaparin. (10) Advance directive on file: Current visit: Yes Status: Acute DNR/DNI. Subjective Interval history since last seen: 63-year-old woman with history of cognitive delay and Hypertension, admitted from [facility] Emergency Department with a diagnosis of Hypotension. Ms. Gardiner has a history of cognitive dysfunction, HTN, GERD, and Schizophrenia. She was initially sent to the emergency room because of several days of nonspecific weakness. In the ED she was noted to be significantly hypotensive with blood pressures in the 60s systolic, but without tachycardia. She was given fluid resuscitation and started on levophed. Initial laboratory evaluat ion of note for leukocytosis, low-grade pyuria (5-10 white cells), negative chest x-ray and CT of the abdomen that was unremarkable except for a known cyst in the right lower quadrant. She was then referred for admission for further evaluation and treatment. Since her admission Blood pressure eventually improved and she has remained off pressor support after recurrence of her hypotension, thought likely secondary to aspiration pneumonia/pneumonitis. Her Urine and Blood Cultures remained negative, and her C. Diff and Fecal Leukocytes were negative as well. CT of the chest and ECHO have been normal. She did however show evidence of difficulty with swallowing, and a Barium Swallow revealed evidence of barium retention and esophageal dysmotility. Subsequent EGD was negative. Mrs. Gardiner had remained NPO and without oral meds or food for quite some time - successfully underwent PEG tube placement on 07/19 and restarted on her home medications. Still was not at her baseline mental status and with significant waxing and waning symptoms overall, which was worsening. Described as likely catatonia by psychiatry, she was moved to the ICU and given trial of benzodiazepine therapy with some degree of success. No other events reported. Remains afebrile. Exam Narrative Exam Narrative: General: Patient was awake at time of visit, more alert this morning, improved responsiveness and now following commands and verbal at times. NAD. Neck: Supple CV: Regular, tachycardic, S1S2, No rubs, murmurs, or gallops. Pulmonary: Improved breath sounds overall, appears clear but limited due to patient's lack of cooperation and body habitus. Potential bibasilar crackles. Abdomen: + Bowel Sounds, soft, nontender, nondistended Vascular: No lower extremity edema Objective Objective Clinical Data: Abnormal lab results 07/22/18 07/23/18 07/23/18 Range/Units 14:12 06:30 06:30 WBC 11.13 H (4.4-10.8) k/cumm RBC 3.66 L (4.00-5.20) m/cumm Hgb 9.8 L 9.1 L (12.0-15.5) g/dL Hct 31.3 L 29.5 L (36.0-46.0) % MCH 24.9 L (27.0-33.0) pg MCHC 30.8 L (32.0-36.0) g/dL RDW 19.6 H (11.7-14.6) % MPV 11.5 H (8.0-11.0) fL Absolute Neutrophils 7.82 H (1.2-6.7) k/cumm Absolute Monocytes 1.14 H (0.11-0.7) k/cumm Sodium 146 H (136-145) mmol/L Creatinine 1.08 H (0.55-1.02) mg/dL Glucose 127 H (70-100) mg/dL Vital Signs Temperature 37.1 C 07/23/18 11:41 Temperature Source Temporal Artery Scan 07/23/18 11:41 Pulse 81 07/23/18 12:31 Pulse Rhythm Regular 07/21/18 08:20 Pulse 82 07/23/18 12:31 Respiratory Rate 27 H 07/23/18 12:31 Respiratory Effort 07/23/18 11:41 Respiratory Depth Shallow 07/23/18 11:41 Respiratory Pattern Tachypnea 07/23/18 11:41 Blood Pressure 100/64 07/23/18 12:31 Blood Pressure Mean 71 07/23/18 12:31 Blood Pressure Position Right Lateral 07/23/18 11:41 Pulse Oximetry 89 L 07/23/18 12:31 Respiratory End-tidal CO2 34 07/07/18 15:01 Oxygen Delivery Method Room Air 07/23/18 11:41 Oxygen Flow Rate 0 07/23/18 11:41 Fraction of Inspired Oxygen (FIO2) 28 07/16/18 00:30 Pain Level 0 07/23/18 11:41 Comment 07/21/18 15:40 Intake & Output 07/22/18 07/23/18 07/23/18 23:59 11:59 23:59 Intake Total 1120 / 2990 Output Total 2650 / 2650 1150 / 1800 650 / 1800 Balance -1530 / 340 -1150 / -1800 -650 / -1800 Weight 95.5 kg Intake: Oral 600 / 1970 Intake, Tube Feeding Amount 520 / 520 Output: Urine 2650 / 2650 1150 / 1800 650 / 1800 Other: Urine Color Yellow Yellow Yellow Urine Appearance Clear Clear Clear Comment Bell in place draining yellow urine Bell catheter in place and draining clear yellow urine. Emptied for 650 cc at this time. Mod. amt of leukocytes, pH of 6.5, SG of 1.010 Laboratory Results WBC 11.13 k/cumm (4.4-10.8) H 07/23/18 06:30 RBC 3.66 m/cumm (4.00-5.20) L 07/23/18 06:30 Hgb 9.1 g/dL (12.0-15.5) L 07/23/18 06:30 Hct 29.5 % (36.0-46.0) L 07/23/18 06:30 MCV 80.6 fL (80-95) 07/23/18 06:30 MCH 24.9 pg (27.0-33.0) L 07/23/18 06:30 MCHC 30.8 g/dL (32.0-36.0) L 07/23/18 06:30 RDW 19.6 % (11.7-14.6) H 07/23/18 06:30 Plt Count 322 x1000/uL (130-400) 07/23/18 06:30 MPV 11.5 fL (8.0-11.0) H 07/23/18 06:30 Abs Immat Gran (auto) Cancelled 07/13/18 08:05 Immature Gran % 0.4 07/23/18 06:30 Neutrophils % 70.3 07/23/18 06:30 Band Neutrophils % Cancelled 07/13/18 08:05 Lymphocytes % 13.0 07/23/18 06:30 Atypical Lymphs % Cancelled 07/13/18 08:05 Monocytes % 10.2 07/23/18 06:30 Eosinophils % 5.7 07/23/18 06:30 Basophils % 0.4 07/23/18 06:30 Absolute Neutrophils 7.82 k/cumm (1.2-6.7) H 07/23/18 06:30 Absolute Lymphocytes 1.45 k/cumm (1.2-3.4) 07/23/18 06:30 Absolute Monocytes 1.14 k/cumm (0.11-0.7) H 07/23/18 06:30 Absolute Eosinophils 0.63 k/cumm (0.0-0.7) 07/23/18 06:30 Absolute Basophils 0.04 k/cumm (0.0-0.2) 07/23/18 06:30 Metamyelocytes Cancelled 07/13/18 08:05 Myelocytes Cancelled 07/13/18 08:05 Promyelocytes Cancelled 07/13/18 08:05 Nucleated RBCs Cancelled 07/13/18 08:05 Differential Comment Rbc morph reviewed 07/17/18 06:35 Other Cell Type Cancelled 07/13/18 08:05 RBC Morphology See below 07/17/18 06:35 Polychromasia Present 07/17/18 06:35 Hypochromasia 1+ 07/17/18 06:35 Poikilocytosis 1+ 07/17/18 06:35 Basophilic Stippling Cancelled 07/13/18 08:05 Anisocytosis 2+ 07/17/18 06:35 Microcytosis 2+ 07/06/18 07:20 Macrocytosis Cancelled 07/13/18 08:05 Spherocytes Cancelled 07/13/18 08:05 Target Cells Cancelled 07/13/18 08:05 Tear Drop Cells Cancelled 07/13/18 08:05 Ovalocytes 2+ 07/17/18 06:35 Stomatocytes Cancelled 07/13/18 08:05 Telles-Goodridge Bodies Cancelled 07/13/18 08:05 Girma Cells Cancelled 07/13/18 08:05 Acanthocytes (Spur) Cancelled 07/13/18 08:05 Schistocytes Cancelled 07/13/18 08:05 D-Dimer 1329 ng/mlFEU (<500) H 07/07/18 21:15 Sodium 146 mmol/L (136-145) H 07/23/18 06:30 Potassium 3.6 mmol/L (3.5-5.1) 07/23/18 06:30 Chloride 107 mmol/L (98-107) 07/23/18 06:30 Carbon Dioxide 30.4 mmol/L (21.0-32.0) 07/23/18 06:30 Anion Gap 8.6 mmol/L (3-11) 07/23/18 06:30 BUN 17 mg/dL (7-18) 07/23/18 06:30 Creatinine 1.08 mg/dL (0.55-1.02) H 07/23/18 06:30 Estimated GFR/1.73 m2 51.24 (mL/min/1.73m2) 07/23/18 06:30 Glucose 127 mg/dL (70-100) H 07/23/18 06:30 Lactate 1.0 mmol/L (0.6-1.4) 07/06/18 07:20 Calcium 8.9 mg/dL (8.5-10.1) 07/23/18 06:30 Magnesium 1.8 mg/dL (1.8-2.4) 07/23/18 06:30 Total Bilirubin 0.3 mg/dL (0.2-1.0) 07/12/18 05:50 Conjugated Bilirubin 0.10 mg/dL (0.00-0.20) 07/12/18 05:50 AST 24 U/L (15-37) 07/12/18 05:50 ALT 47 U/L (12-78) 07/12/18 05:50 Alkaline Phosphatase 65 U/L (46-116) 07/12/18 05:50 Ammonia < 10 umol/L (11-32) L 07/15/18 10:20 Troponin I 0.02 ng/mL (0.00-0.06) 07/08/18 05:00 NT-Pro-B Natriuret Pep 1154 pg/mL (-299) H 07/07/18 21:15 Total Protein 4.6 g/dL (6.4-8.2) L 07/12/18 05:50 Albumin 2.2 g/dL (3.4-5.0) L 07/12/18 05:50 Lipase 252 U/L (73-393) 07/04/18 13:15 Procalcitonin <0.10 ng/mL (<or=1.5) 07/08/18 06:24 Calcitonin Cancelled 07/08/18 06:24 TSH 1.09 uIU/mL (0.358-3.74) 07/06/18 07:20 Urine Color Yellow (Yellow) 07/14/18 13:05 Urine Clarity Clear 07/14/18 13:05 Urine pH 5.0 (5-8) 07/14/18 13:05 Ur Specific Willard <= 1.005 (1.005-1.025) 07/14/18 13:05 Urine Protein Negative mg/dL (Negative) 07/14/18 13:05 Urine Ketones Negative mg/dL (Negative) 07/14/18 13:05 Urine Blood Small (Negative) H 07/14/18 13:05 Urine Nitrite Negative (Negative) 07/14/18 13:05 Urine Bilirubin Negative (Negative) 07/14/18 13:05 Urine Urobilinogen 0.2 EU/dL (Up TO 0.2) 07/14/18 13:05 Ur Leukocyte Esterase Negative (Negative) 07/14/18 13:05 Urine RBC 3-5 (0-2) H 07/14/18 13:05 Urine WBC 0-2 HPF (0-5) 07/14/18 13:05 Ur Epithelial Cells Rare HPF (Negative) 07/14/18 13:05 Urine Crystals Rare amorphous HPF (Negative) 07/14/18 13:05 Urine Bacteria Rare HPF (Negative) 07/14/18 13:05 Urine Casts Negative LPF (Negative) 07/14/18 13:05 Urine Mucus Trace (Negative) 07/14/18 13:05 Ur Culture Indicated? C&s done as ordered 07/14/18 13:05 Urine Glucose 100 mg/dL (Negative) 07/14/18 13:05 Stool Campylobacter PCR See comments 07/06/18 12:45 Stool Salmonella PCR See comments 07/06/18 12:45 Stool Shigella PCR See comments 07/06/18 12:45 Vancomycin Trough 18.9 ug/mL (10.0-20.0) 07/20/18 06:17 Shiga Toxin (PCR) See comments 07/06/18 12:45 Path Cons Comment See comment 07/06/18 07:20 Miscellaneous Test Cancelled 07/08/18 06:24
[2018-07-23] MEDS: Donepezil 5 MG TAB 10 MG UD (21:36)
[2018-07-23] MEDS: OLANZapine 5 MG TAB 10 MG UD (21:36)
[2018-07-24] VITALS (55 sets, daily range): BP systolic 73–173; BP diastolic 37–117; PULSE 68–118; RESP 2–36; TEMP 36.4–37; O2SAT 88–100
[2018-07-24] MEDS: Levalbuterol 1.25 MG/3 ML UPD VIAL UPD ×6 (00:26→20:04)
[2018-07-24] MEDS: LORazepam 1 MG TAB NG (00:27)
[2018-07-24] MEDS: LORazepam 2 MG/ML VIAL 1 MG IVP ×7 (01:40→22:30)
[2018-07-24] MEDS: Normal Saline Flush 10 ML SYR IVP ×3 (01:41→09:20)
[2018-07-24 07:33] LABS: Abs Immature Grans 0.01 k/cumm (0.0-0.09); Absolute Basophil Count 0.03 k/cumm (0.0-0.2); Absolute Eosinophil Count 0.45 k/cumm (0.0-0.7); Absolute Lymphocyte Count 1.48 k/cumm (1.2-3.4); Absolute Monocyte Count 1.16 k/cumm (0.11-0.7); Absolute Neutrophil Count 5.44 k/cumm (1.2-6.7); Basophils % 0.4; Eosinophils % 5.3; HCT 27.3 % (36.0-46.0); HGB 8.3 g/dL (12.0-15.5); Immature Grans % 0.1; Lymphocytes % 17.3; Mean Corp. HGB Concentration 30.4 g/dL (32.0-36.0); Mean Corpuscular Volume 82.2 fL (80-95); Mean Platelet Volume 11.5 fL (8.0-11.0); Monocytes % 13.5; Neutrophils % 63.4; Platelet Count 277 x1000/uL (130-400); RBC 3.32 m/cumm (4.00-5.20); RBC Distribution Width 19.6 % (11.7-14.6); White Blood Cell Count 8.57 k/cumm (4.4-10.8)
[2018-07-24 07:44] LABS: Anion Gap 5.2 mmol/L (3-11); BUN 19 mg/dL (7-18); CO2 31.8 mmol/L (21.0-32.0); CREATININE 0.97 mg/dL (0.55-1.02); Calcium 8.7 mg/dL (8.5-10.1); Chloride 109 mmol/L (98-107); Glucose 90 mg/dL (70-100); Magnesium 2.1 mg/dL (1.8-2.4); Potassium 4.1 mmol/L (3.5-5.1); Sodium 146 mmol/L (136-145)
[2018-07-24] MEDS: Normal Saline Flush 10 ML SYR 20 ML IVP ×2 (09:00→20:00)
[2018-07-24] MEDS: Methimazole 5 MG TAB 10 MG UD (09:17)
[2018-07-24] MEDS: Enoxaparin 40 MG/0.4 ML SYR SC (09:17)
[2018-07-24] MEDS: Loperamide 2 MG CAP UD (09:18)
[2018-07-24] MEDS: Memantine 5 MG TAB 10 MG UD ×2 (09:19→19:58)
[2018-07-24] MEDS: Pantoprazole 40 MG VIAL IVP (09:20)
[2018-07-24] MEDS: Nystatin POWDER 60 GM JAR TP ×2 (09:48→20:01)
--- NOTE | 2018-07-24 10:11 | W.PSYCHCONSU ---
Date of service: 07/24/18 History of Present Illness Narrative: Events since initial consultation/last note: Overnight events: - patient reportedly more responsive and interactive since initiation of q2 1mg ativan Medications: - total of 11mg of ativan over last 24 hours Subjective: Patient unable to provide subjective report verbally but does spontaneously point to her throat. No other patient initiated communication is observed. When asked to say something she does not spontaneously speak. When asked if she would say yes or no, patient said. No. When asked to say her name, she stated Christie Gardiner. Per Meredith, her casino cage manager, family reported that it took a week for catatonia to resolve in last episode. REVIEW OF SYSTEMS: - patient unable to participate other than as noted above - when asked about pain she said no - but this is the only word I heard her say and may not be reliable Physical exam: - no rigidity in joints of upper extremity bilaterally MENTAL STATUS EXAM: Constitutional: appears much more alert than yesterday, no longer staring but making normal eye contact and tracks my movement around her bed with her eyes. Attitude: cooperative Psychomotor: no retardation or agitation Speech: consisting only of no and Christie Gardiner when asked to state her name. Poorly enunciated. Associations: no looseness Thought process: linear, logical, goal directed Thought content without psychosis, delusions, obsessions No suicidal or homicidal ideations evident Hallucinations: none evident Mood: not able to assess Affect: anxious, Attention/Concentration: alert Judgment/insight: unable to assess Oriented to self, unable to determine whether to time or place Language unable to assess Fund of knowledge unable to assess Memory unable to assess Other cognitive testing: none Assessment and Plan (1) Catatonia associated with another mental disorder: Current visit: Yes Status: Acute Christie Gardiner is a 63 year old female with past psychiatric history of schizophrenia and history of catatonia when antipsychotics were stopped, who was admitted to [facility] on 07/04/18 with worsening weakness and found to be hypotensive and thought possibly to have aspiration pneumonia. A dysphagia was discovered and worsened over the course of hospitalization requiring PEG tub placement for feeds and medications. Earlier in this hospital course neurology was consulted to evaluate staring spells (no focal neurological disorder was found), and as dysphagia worsened all psychotropics were stopped (reasonable) but mental status acutely worsened at the same time. Psychiatry consult was requested to help assess altered mental status which did not improve even after olanzapine was restarted. The symptom of catatonia was suspected by history and clinical exam which responded to an ativan challenge. I suspect a mild fluctuating catatonia was present even prior to admission per family report of stereotypic behavior as patient was reporting not feeling well. Worsening of her medical status and acute cessation of olanzapine probably significantly worsened catatonia. Yesterday, ativan 1mg q2hrs prn catatonia was administered for total of 11mg which was beneficial for improving mental status but with catatonic symptoms still present. Recommendations: - schedule ativan 1mg IV q3 hours even if asleep but easily arousable, but hold for sedation. - if improvement in mental status holds at current state or improves even further on above schedule, then consider backing ativan off to [id number] to prevent somnolence secondary to ativan. - if previous episode reported by family is any guide, it will take about a week for catatonia to improve and during this week daily assessment and incremental reduction of ativan total dose may be possible. - long-term (3-6 months) of low dose twice daily dosing of scheduled ativan or clonazepam will likely be necessary to prevent recurrence of catatonia. - I have verbally given my recommendations to Dr. Sigala and I have given him my cell phone number so that he can contact me with any questions about catatonia symptom management. Thank you for including me in the care of Christie Gardiner. Visit Statistics Total Visit Minutes: 20 Visit Time Allocation >50% of face to face visit spent in counseling (Extensive teaching, explanation and instructions. Counseling as appropriate. Review of plans, and discussion concerning medical problems dealt with at this visit. Discussion of benefits/risks of treatment, anticipated course of events, potential medication side effects, options, alternatives, and follow up plans. Questions were solicited and answered, and the patient verbalized understanding.), and/or coordination of care. [facility] Medical History Schizophrenia (Chronic) Cognitive developmental delay (Acute) Hypertension (Chronic) Hypothyroidism (Chronic) Social History household members: none current occupational status: disabled Smoking/Tobacco Use Status: Never alcohol intake: never substance use type: does not use additional social history: Lives alone. Results Last Vital Signs Temp 36.4 C L 07/24/18 08:32 Pulse 73 07/24/18 08:32 Resp 24 07/24/18 08:32 BP 100/71 07/24/18 08:32 Pulse Ox 92 L 07/24/18 08:32 Labs : 07/24/18 06:18 07/24/18 06:18 Laboratory Results - last 24 hr 07/24/18 07/24/18 06:18 06:18 WBC 8.57 RBC 3.32 L Hgb 8.3 L Hct 27.3 L MCV 82.2 MCH 25.0 L MCHC 30.4 L RDW 19.6 H Plt Count 277 MPV 11.5 H Immature Gran % 0.1 Neutrophils % 63.4 Lymphocytes % 17.3 Monocytes % 13.5 Eosinophils % 5.3 Basophils % 0.4 Absolute Neutrophils 5.44 Absolute Lymphocytes 1.48 Absolute Monocytes 1.16 H Absolute Eosinophils 0.45 Absolute Basophils 0.03 Sodium 146 H Potassium 4.1 Chloride 109 H Carbon Dioxide 31.8 Anion Gap 5.2 BUN 19 H Creatinine 0.97 Estimated GFR/1.73 m2 58.00 Glucose 90 Calcium 8.7 Magnesium 2.1
--- NOTE | 2018-07-24 10:21 | PSYCO_ITS ---
Date of service: 07/24/18 History of Present Illness Narrative: Events since initial consultation/last note: Overnight events: - patient reportedly more responsive and interactive since initiation of q2 1mg ativan Medications: - total of 11mg of ativan over last 24 hours Subjective: Patient unable to provide subjective report verbally but does spontaneously point to her throat. No other patient initiated communication is observed. When asked to say something she does not spontaneously speak. When asked if she would say yes or no, patient said. No. When asked to say her name, she stated Christie Gardiner. Per Meredith, her processing manager, family reported that it took a week for catatonia to resolve in last episode. REVIEW OF SYSTEMS: - patient unable to participate other than as noted above - when asked about pain she said no - but this is the only word I heard her say and may not be reliable Physical exam: - no rigidity in joints of upper extremity bilaterally MENTAL STATUS EXAM: Constitutional: appears much more alert than yesterday, no longer staring but making normal eye contact and tracks my movement around her bed with her eyes. Attitude: cooperative Psychomotor: no retardation or agitation Speech: consisting only of no and Christie Gardiner when asked to state her name. Poorly enunciated. Associations: no looseness Thought process: linear, logical, goal directed Thought content without psychosis, delusions, obsessions No suicidal or homicidal ideations evident Hallucinations: none evident Mood: not able to assess Affect: anxious, Attention/Concentration: alert Judgment/insight: unable to assess Oriented to self, unable to determine whether to time or place Language unable to assess Fund of knowledge unable to assess Memory unable to assess Other cognitive testing: none Assessment and Plan (1) Catatonia associated with another mental disorder: Current visit: Yes Status: Acute Christie Gardiner is a 63 year old female with past psychiatric history of schizophrenia and history of catatonia when antipsychotics were stopped, who was admitted to [facility] on 07/04/18 with worsening weakness and found to be hypotensive and thought possibly to have aspiration pneumonia. A dysphagia was discovered and worsened over the course of hospitalization requiring PEG tub placement for feeds and medications. Earlier in this hospital course neurology was consulted to evaluate staring spells (no focal neurological disorder was found), and as dysphagia worsened all psychotropics were stopped (reasonable) but mental status acutely worsened at the same time. Psychiatry consult was requested to help assess altered mental status which did not improve even after olanzapine was restarted. The symptom of catatonia was suspected by history and clinical exam which responded to an ativan challenge. I suspect a mild fluctuating catatonia was present even prior to admission per family report of stereotypic behavior as patient was reporting not feeling well. Worsening of her medical status and acute cessation of olanzapine probably significantly worsened catatonia. Yesterday, ativan 1mg q2hrs prn catatonia was administered for total of 11mg which was beneficial for improving mental status but with catatonic symptoms sti ll present. Recommendations: - schedule ativan 1mg IV q3 hours even if asleep but easily arousable, but hold for sedation. - if improvement in mental status holds at current state or improves even further on above schedule, then consider backing ativan off to [id number] to prevent somnolence secondary to ativan. - if previous episode reported by family is any guide, it will take about a week for catatonia to improve and during this week daily assessment and incremental reduction of ativan total dose may be possible. - long-term (3-6 months) of low dose twice daily dosing of scheduled ativan or clonazepam will likely be necessary to prevent recurrence of catatonia. - I have verbally given my recommendations to Dr. Sigala and I have given him my cell phone number so that he can contact me with any questions about catatonia symptom management. Thank you for including me in the care of Christie Gardiner. Visit Statistics Total Visit Minutes: 20 Visit Time Allocation >50% of face to face visit spent in counseling (Extensive teaching, explanation and instructions. Counseling as appropriate. Review of plans, and discussion concerning medical problems dealt with at this visit. Discussion of benefits/risks of treatment, anticipated course of events, potential medication side effects, options, alternatives, and follow up plans. Questions were solicited and answered, and the patient verbalized understanding.), and/or coordination of care. [facility] Medical History Schizophrenia (Chronic) Cognitive developmental delay (Acute) Hypertension (Chronic) Hypothyroidism (Chronic) Social History household members: none current occupational status: disabled Smoking/Tobacco Use Status: Never alcohol intake: never substance use type: does not use additional social history: Lives alone. Results Last Vital Signs Temp 36.4 C L 07/24/18 08:32 Pulse 73 07/24/18 08:32 Resp 24 07/24/18 08:32 BP 100/71 07/24/18 08:32 Pulse Ox 92 L 07/24/18 08:32 Labs : 07/24/18 06:18 07/24/18 06:18 Laboratory Results - last 24 hr 07/24/18 07/24/18 06:18 06:18 WBC 8.57 RBC 3.32 L Hgb 8.3 L Hct 27.3 L MCV 82.2 MCH 25.0 L MCHC 30.4 L RDW 19.6 H Plt Count 277 MPV 11.5 H Immature Gran % 0.1 Neutrophils % 63.4 Lymphocytes % 17.3 Monocytes % 13.5 Eosinophils % 5.3 Basophils % 0.4 Absolute Neutrophils 5.44 Absolute Lymphocytes 1.48 Absolute Monocytes 1.16 H Absolute Eosinophils 0.45 Absolute Basophils 0.03 Sodium 146 H Potassium 4.1 Chloride 109 H Carbon Dioxide 31.8 Anion Gap 5.2 BUN 19 H Creatinine 0.97 Estimated GFR/1.73 m2 58.00 Glucose 90 Calcium 8.7 Magnesium 2.1
--- NOTE | 2018-07-24 11:24 | PSYCO_ITS ---
[facility] Medical History Schizophrenia (Chronic) Cognitive developmental delay (Acute) Hypertension (Chronic) Hypothyroidism (Chronic) Social History household members: none current occupational status: disabled Smoking/Tobacco Use Status: Never alcohol intake: never substance use type: does not use additional social history: Lives alone. Results Last Vital Signs Temp 36.4 07/24/18 08:32 Pulse 73 07/24/18 08:32 Resp 24 07/24/18 08:32 BP 100/71 07/24/18 08:32 Pulse Ox 92 L 07/24/18 08:32 Labs : 07/24/18 06:18 07/24/18 06:18 Laboratory Results - last 24 hr 07/24/18 07/24/18 06:18 06:18 WBC 8.57 RBC 3.32 L Hgb 8.3 L Hct 27.3 L MCV 82.2 MCH 25.0 L MCHC 30.4 L RDW 19.6 H Plt Count 277 MPV 11.5 H Immature Gran % 0.1 Neutrophils % 63.4 Lymphocytes % 17.3 Monocytes % 13.5 Eosinophils % 5.3 Basophils % 0.4 Absolute Neutrophils 5.44 Absolute Lymphocytes 1.48 Absolute Monocytes 1.16 H Absolute Eosinophils 0.45 Absolute Basophils 0.03 Sodium 146 H Potassium 4.1 Chloride 109 H Carbon Dioxide 31.8 Anion Gap 5.2 BUN 19 H Creatinine 0.97 Estimated GFR/1.73 m2 58.00 Glucose 90 Calcium 8.7 Magnesium 2.1
--- NOTE | 2018-07-24 14:38 | W.PM.PROGNOT ---
Date of Service Date of service: 07/24/18 Time of Service: 14:38 Assessment and Plan (1) Schizophrenia: Current visit: No Status: Chronic Restarted home meds as above on 07/19. Ms. Gardiner was formally evaluated by psychiatry - per verbal report from Dr. 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 Per recommendations patient was transferred to the ICU, and initiated on IV Ativan - she now has improved mentation, interaction, following commands, and increasing verbal response. Recommendations per psychiatry as follows: - Change to scheduled ativan 1mg IV q3 hours, even if asleep (if easily arousable), but hold for sedation. - if improvement in mental status holds at current state or improves even further on above schedule, will decrease Ativan off to [id number] to prevent somnolence. - if previous episode reported by family is any guide, it will take about a week for catatonia to improve and during this week daily assessment and incremental reduction of ativan total dose may be possible. - long-term (3-6 months) of low dose twice daily dosing of scheduled ativan or clonazepam will likely be necessary to prevent recurrence of catatonia. (2) Dysphagia: Current visit: Yes Status: Acute History of benign distal esophageal stricture by EGD, s/p dilation in 2007. There was also noted Unprotected aspiration as well as large GERD with evidence of esophagitis. However, repeat EGD normal and Barium Swallow performed this hospitalization with no evidence of stricture, but with esophageal dysmotility and retention of barium in the esophagus. Patient treated for Aspiration pneumonia - s/p PEG tube placement 07/19. Maintain NPO status for now, continue Tube Feeds. Also restarted home meds via Peg Tube, with continued aspiration precautions. Due to hypotension from trial of ativan discontinued short acting Cardizem and initiated QHS Imipramine. Continue treatment of GERD with IV PPI therapy. Will ultimately need outpatient manometry when mental status is back to baseline and patient is able to cooperate. Of note, currently also having problems with initiation of swallowing which appears new and may be related to her altered mental status and holding of her psych medications. Her psychiatric medications have been restarted and administered via PEG tube, and catatonia appears improved. (3) Esophageal dysmotility: Current visit: Yes Status: Acute Treatment as above. (4) Hypotension: Current visit: Yes Status: Resolved Initially, hypotensive to the point of requiring pressor support, and with evidence of end-organ damage with KJ and elevation in Lactate - unknown etiology. Potential Dehydration in the setting of initiation of HCTZ vs. Sepsis - although no evidence of infiltrate or acute infection initially. Does not appear to have been adrenal insufficiency, with steroids weaned off. Echo without clear cardiogenic etiology, and no persistent arrhythmias on monitor. Aspiration pneumonia/recurrent aspiration events now seem like the most likely scenario. Levophed currently ordered but not in use, in case patient experiences repeat hypotension while receiving Lorazepam challenge. (5) Altered mental status: Current visit: Yes Status: Acute Initially described as episodes of confusion, 'staring', near unresponsive state while awake, with potential post-ictal like state - now appears different as patient's affect and verbal responsiveness have declined significantly. No evidence of active infection - thought potentially related to side-effect of Keppra (depression/confusion), now without change even after d/c. Potentially related to witholding of chronic psychiatric medications, catatonia per report from psychiatry. Reinitiated medications 07/19. Currently in ICU for trial of benzodiazepine therapy as above. EEG and MRI X2 were negative. (6) Bradycardia: Current visit: No Status: Acute Abnormally normal heart rate during initial bout of hypotension, then frankly bradycardic - reportedly had a bout of junctional rhythm as well. However, review of EKG by Cardiology/Electrophysiology with note of Sinus Bradycardia. Avoid jovan agents - also with tachycardia noted. 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 (7) Hypernatremia: Current visit: Yes Status: Acute Improved and now mild. Continue Tube Feeds, and increased Free Water via Peg Tube. (8) KJ (acute kidney injury): Current visit: Yes Status: Resolved Creatinine stable. (9) DVT prophylaxis: Current visit: Yes Status: Acute Continue Enoxaparin. (10) Advance directive on file: Current visit: Yes Status: Acute DNR/DNI. Subjective Interval history since last seen: 63-year-old woman with history of cognitive delay and Hypertension, admitted from [facility] Emergency Department with a diagnosis of Hypotension. Ms. Gardiner has a history of cognitive dysfunction, HTN, GERD, and Schizophrenia. She was initially sent to the emergency room because of several days of nonspecific weakness. In the ED she was noted to be significantly hypotensive with blood pressures in the 60s systolic, but without tachycardia. She was given fluid resuscitation and started on levophed. Initial laboratory evaluation of note for leukocytosis, low-grade pyuria (5-10 white cells), negative chest x-ray and CT of the abdomen that was unremarkable except for a known cyst in the right lower quadrant. She was then referred for admission for further evaluation and treatment. Since her admission Blood pressure eventually improved and she has remained off pressor support after recurrence of her hypotension, thought likely secondary to aspiration pneumonia/pneumonitis. Her Urine and Blood Cultures remained negative, and her C. Diff and Fecal Leukocytes were negative as well. CT of the chest and ECHO have been normal. She did however show evidence of difficulty with swallowing, and a Barium Swallow revealed evidence of barium retention and esophageal dysmotility. Subsequent EGD was negative. Mrs. Gardiner had remained NPO and without oral meds or food for quite some time - successfully underwent PEG tube placement on 07/19 and restarted on her home medications. Still was not at her baseline mental status and with significant waxing and waning symptoms overall, which was worsening. Described as likely catatonia by psychiatry, she was moved to the ICU and given trial of benzodiazepine therapy with some degree of success. She is now awake and alert, following commands and appropriate, but not yet at her baseline. No other events reported. Remains afebrile. Exam Narrative Exam Narrative: General: Patient was awake at time of visit, more alert this morning, improved responsiveness and now following commands and verbal at times. NAD. Neck: Supple CV: Regular, tachycardic, S1S2, No rubs, murmurs, or gallops. Pulmonary: Appears clear but limited due to patient's lack of cooperation and body habitus. Potential mild bibasilar crackles. Abdomen: + Bowel Sounds, soft, nontender, nondistended Vascular: No lower extremity edema Objective Objective Clinical Data: Abnormal lab results 07/24/18 07/24/18 Range/Units 06:18 06:18 RBC 3.32 L (4.00-5.20) m/cumm Hgb 8.3 L (12.0-15.5) g/dL Hct 27.3 L (36.0-46.0) % MCH 25.0 L (27.0-33.0) pg MCHC 30.4 L (32.0-36.0) g/dL RDW 19.6 H (11.7-14.6) % MPV 11.5 H (8.0-11.0) fL Absolute Monocytes 1.16 H (0.11-0.7) k/cumm Sodium 146 H (136-145) mmol/L Chloride 109 H (98-107) mmol/L BUN 19 H (7-18) mg/dL Vital Signs Temperature 36.6 C 07/24/18 13:09 Temperature Source Temporal Artery Scan 07/24/18 13:09 Pulse 115 H 07/24/18 13:09 Pulse Rhythm Regular 07/21/18 08:20 Pulse 118 H 07/24/18 11:04 Respiratory Rate 22 07/24/18 13:09 Respiratory Effort Incrsd Work of Breathing 07/24/18 13:09 Respiratory Depth Shallow 07/24/18 13:09 Respiratory Pattern Tachypnea 07/24/18 13:09 Blood Pressure 152/110 H 07/24/18 13:09 Blood Pressure Mean 124 07/24/18 13:09 Blood Pressure Position Sitting 07/24/18 13:09 Pulse Oximetry 97 07/24/18 13:09 Respiratory End-tidal CO2 34 07/07/18 15:01 Oxygen Delivery Method Room Air 07/24/18 13:09 Oxygen Flow Rate 0 07/24/18 13:09 Fraction of Inspired Oxygen (FIO2) 28 07/16/18 00:30 Pain Level 0 07/24/18 11:58 Comment 07/21/18 15:40 Intake & Output 07/23/18 07/24/18 07/24/18 23:59 11:59 23:59 Intake Total 741 / 741 640 / 640 Output Total 1550 / 2705 310 / 310 Balance -809 / -1964 330 / 330 Weight 93.7 kg Intake: IV 217 / 217 Intake, Tube Feeding Amount 711 / 711 423 / 423 Output: Urine 1550 / 2700 310 / 310 Other: Urine Color Pale Pale Yellow Yellow Urine Appearance Clear Clear Comment campbell to gravity with light colored yellow urine. campbell to gravity with light colored yellow urine. indwelling campbell Stool Occult Blood Negative Negative Stool Size Large Small Stool Characteristics Soft Liquid Brown Laboratory Results WBC 8.57 k/cumm (4.4-10.8) 07/24/18 06:18 RBC 3.32 m/cumm (4.00-5.20) L 07/24/18 06:18 Hgb 8.3 g/dL (12.0-15.5) L 07/24/18 06:18 Hct 27.3 % (36.0-46.0) L 07/24/18 06:18 MCV 82.2 fL (80-95) 07/24/18 06:18 MCH 25.0 pg (27.0-33.0) L 07/24/18 06:18 MCHC 30.4 g/dL (32.0-36.0) L 07/24/18 06:18 RDW 19.6 % (11.7-14.6) H 07/24/18 06:18 Plt Count 277 x1000/uL (130-400) 07/24/18 06:18 MPV 11.5 fL (8.0-11.0) H 07/24/18 06:18 Abs Immat Gran (auto) Cancelled 07/13/18 08:05 Immature Gran % 0.1 07/24/18 06:18 Neutrophils % 63.4 07/24/18 06:18 Band Neutrophils % Cancelled 07/13/18 08:05 Lymphocytes % 17.3 07/24/18 06:18 Atypical Lymphs % Cancelled 07/13/18 08:05 Monocytes % 13.5 07/24/18 06:18 Eosinophils % 5.3 07/24/18 06:18 Basophils % 0.4 07/24/18 06:18 Absolute Neutrophils 5.44 k/cumm (1.2-6.7) 07/24/18 06:18 Absolute Lymphocytes 1.48 k/cumm (1.2-3.4) 07/24/18 06:18 Absolute Monocytes 1.16 k/cumm (0.11-0.7) H 07/24/18 06:18 Absolute Eosinophils 0.45 k/cumm (0.0-0.7) 07/24/18 06:18 Absolute Basophils 0.03 k/cumm (0.0-0.2) 07/24/18 06:18 Metamyelocytes Cancelled 07/13/18 08:05 Myelocytes Cancelled 07/13/18 08:05 Promyelocytes Cancelled 07/13/18 08:05 Nucleated RBCs Cancelled 07/13/18 08:05 Differential Comment Rbc morph reviewed 07/17/18 06:35 Other Cell Type Cancelled 07/13/18 08:05 RBC Morphology See below 07/17/18 06:35 Polychromasia Present 07/17/18 06:35 Hypochromasia 1+ 07/17/18 06:35 Poikilocytosis 1+ 07/17/18 06:35 Basophilic Stippling Cancelled 07/13/18 08:05 Anisocytosis 2+ 07/17/18 06:35 Microcytosis 2+ 07/06/18 07:20 Macrocytosis Cancelled 07/13/18 08:05 Spherocytes Cancelled 07/13/18 08:05 Target Cells Cancelled 07/13/18 08:05 Tear Drop Cells Cancelled 07/13/18 08:05 Ovalocytes 2+ 07/17/18 06:35 Stomatocytes Cancelled 07/13/18 08:05 Telles-Mccarr Bodies Cancelled 07/13/18 08:05 Morris Cells Cancelled 07/13/18 08:05 Acanthocytes (Spur) Cancelled 07/13/18 08:05 Schistocytes Cancelled 07/13/18 08:05 D-Dimer 1329 ng/mlFEU (<500) H 07/07/18 21:15 Sodium 146 mmol/L (136-145) H 07/24/18 06:18 Potassium 4.1 mmol/L (3.5-5.1) 07/24/18 06:18 Chloride 109 mmol/L (98-107) H 07/24/18 06:18 Carbon Dioxide 31.8 mmol/L (21.0-32.0) 07/24/18 06:18 Anion Gap 5.2 mmol/L (3-11) 07/24/18 06:18 BUN 19 mg/dL (7-18) H 07/24/18 06:18 Creatinine 0.97 mg/dL (0.55-1.02) 07/24/18 06:18 Estimated GFR/1.73 m2 58.00 (mL/min/1.73m2) 07/24/18 06:18 Glucose 90 mg/dL (70-100) 07/24/18 06:18 Lactate 1.0 mmol/L (0.6-1.4) 07/06/18 07:20 Calcium 8.7 mg/dL (8.5-10.1) 07/24/18 06:18 Magnesium 2.1 mg/dL (1.8-2.4) 07/24/18 06:18 Total Bilirubin 0.3 mg/dL (0.2-1.0) 07/12/18 05:50 Conjugated Bilirubin 0.10 mg/dL (0.00-0.20) 07/12/18 05:50 AST 24 U/L (15-37) 07/12/18 05:50 ALT 47 U/L (12-78) 07/12/18 05:50 Alkaline Phosphatase 65 U/L (46-116) 07/12/18 05:50 Ammonia < 10 umol/L (11-32) L 07/15/18 10:20 Troponin I 0.02 ng/mL (0.00-0.06) 07/08/18 05:00 NT-Pro-B Natriuret Pep 1154 pg/mL (-299) H 07/07/18 21:15 Total Protein 4.6 g/dL (6.4-8.2) L 07/12/18 05:50 Albumin 2.2 g/dL (3.4-5.0) L 07/12/18 05:50 Lipase 252 U/L (73-393) 07/04/18 13:15 Procalcitonin <0.10 ng/mL (<or=1.5) 07/08/18 06:24 Calcitonin Cancelled 07/08/18 06:24 TSH 1.09 uIU/mL (0.358-3.74) 07/06/18 07:20 Urine Color Yellow (Yellow) 07/14/18 13:05 Urine Clarity Clear 07/14/18 13:05 Urine pH 5.0 (5-8) 07/14/18 13:05 Ur Specific [place] <= 1.005 (1.005-1.025) 07/14/18 13:05 Urine Protein Negative mg/dL (Negative) 07/14/18 13:05 Urine Ketones Negative mg/dL (Negative) 07/14/18 13:05 Urine Blood Small (Negative) H 07/14/18 13:05 Urine Nitrite Negative (Negative) 07/14/18 13:05 Urine Bilirubin Negative (Negative) 07/14/18 13:05 Urine Urobilinogen 0.2 EU/dL (Up TO 0.2) 07/14/18 13:05 Ur Leukocyte Esterase Negative (Negative) 07/14/18 13:05 Urine RBC 3-5 (0-2) H 07/14/18 13:05 Urine WBC 0-2 HPF (0-5) 07/14/18 13:05 Ur Epithelial Cells Rare HPF (Negative) 07/14/18 13:05 Urine Crystals Rare amorphous HPF (Negative) 07/14/18 13:05 Urine Bacteria Rare HPF (Negative) 07/14/18 13:05 Urine Casts Negative LPF (Negative) 07/14/18 13:05 Urine Mucus Trace (Negative) 07/14/18 13:05 Ur Culture Indicated? C&s done as ordered 07/14/18 13:05 Urine Glucose 100 mg/dL (Negative) 07/14/18 13:05 Stool Campylobacter PCR See comments 07/06/18 12:45 Stool Salmonella PCR See comments 07/06/18 12:45 Stool Shigella PCR See comments 07/06/18 12:45 Vancomycin Trough 18.9 ug/mL (10.0-20.0) 07/20/18 06:17 Shiga Toxin (PCR) See comments 07/06/18 12:45 Path Cons Comment See comment 07/06/18 07:20 Miscellaneous Test Cancelled 07/08/18 06:24
--- NOTE | 2018-07-24 17:55 | DI.RAD_ITS ---
SYMPTOM/DIAGNOSIS: TACHYPNEA, CHANGE IN RESPIRATION. PORTABLE AP CHEST: 07/24/18 Note is again made of previously described PICC line, the tip of which lies over the superior vena cava. Lungs are grossly clear with a poor inspiratory effort. CONCLUSION: No evidence of acute change.
--- NOTE | 2018-07-24 18:17 | DI.VRAD_ITS ---
EXAM: XR Chest, 1 View EXAM DATE/TIME: 07/24/2018 5:40 PM CLINICAL HISTORY: 63 years old, female; Signs and symptoms; Other: Tachypnea, change in respiration TECHNIQUE: XR of the chest, 1 view. COMPARISON: SC XR PORTABLE CHEST AP 07/19/2018 10:08 AM FINDINGS: Tubes, catheters and devices: There is a left-sided PICC line with its tip overlying the SVC. There cardiac leads which overlie the chest. Lungs: There is no evidence of an infiltrate or a pleural effusion. There is a poor inspiratory effort. Pleural space: See above. Heart/Mediastinum: Unremarkable. No cardiomegaly. Bones/joints: Unremarkable. IMPRESSION: Poor inspiratory effort. Left-sided PICC line in place. Dictated and Authenticated by: Mariano Horn MD. Ordering:TARYN Presley MD
[2018-07-24] MEDS: Donepezil 5 MG TAB 10 MG UD (22:35)
[2018-07-24] MEDS: OLANZapine 5 MG TAB 10 MG UD (22:35)
[2018-07-25] VITALS (53 sets, daily range): BP systolic 85–173; BP diastolic 49–120; PULSE 71–115; RESP 1–34; TEMP 36.6–37.3; O2SAT 79–100
[2018-07-25] MEDS: LORazepam 2 MG/ML VIAL 1 MG IVP ×6 (01:50→21:56)
[2018-07-25] MEDS: Levalbuterol 1.25 MG/3 ML UPD VIAL UPD ×5 (02:08→20:05)
[2018-07-25] MEDS: Normal Saline 500 ML 30 ML IV ×2 (03:45→20:05)
[2018-07-25] MEDS: Normal Saline Flush 10 ML SYR 20 ML IVP ×2 (06:22→20:04)
[2018-07-25] MEDS: Normal Saline Flush 10 ML SYR IVP ×2 (06:23→06:35)
[2018-07-25 07:26] LABS: Abs Immature Grans 0.02 k/cumm (0.0-0.09); Absolute Basophil Count 0.02 k/cumm (0.0-0.2); Absolute Eosinophil Count 0.41 k/cumm (0.0-0.7); Absolute Lymphocyte Count 1.37 k/cumm (1.2-3.4); Absolute Monocyte Count 0.86 k/cumm (0.11-0.7); Absolute Neutrophil Count 3.87 k/cumm (1.2-6.7); Basophils % 0.3; Eosinophils % 6.3; HCT 27.5 % (36.0-46.0); HGB 8.2 g/dL (12.0-15.5); Immature Grans % 0.3; Lymphocytes % 20.9; Mean Corp. HGB Concentration 29.8 g/dL (32.0-36.0); Mean Corpuscular Hemoglobin 24.8 pg (27.0-33.0); Mean Corpuscular Volume 83.3 fL (80-95); Mean Platelet Volume 11.4 fL (8.0-11.0); Monocytes % 13.1; Neutrophils % 59.1; Platelet Count 275 x1000/uL (130-400); RBC Distribution Width 19.6 % (11.7-14.6); White Blood Cell Count 6.55 k/cumm (4.4-10.8)
[2018-07-25 07:39] LABS: Anion Gap 2.2 mmol/L (3-11); BUN 17 mg/dL (7-18); CO2 32.8 mmol/L (21.0-32.0); CREATININE 0.93 mg/dL (0.55-1.02); Calcium 8.5 mg/dL (8.5-10.1); Chloride 109 mmol/L (98-107); Glucose 107 mg/dL (70-100); Potassium 4.2 mmol/L (3.5-5.1); Sodium 144 mmol/L (136-145)
[2018-07-25] MEDS: Enoxaparin 40 MG/0.4 ML SYR SC (08:46)
[2018-07-25] MEDS: Methimazole 5 MG TAB UD (08:49)
[2018-07-25] MEDS: Loperamide 2 MG CAP UD (08:50)
[2018-07-25] MEDS: Memantine 5 MG TAB 10 MG UD ×2 (08:50→20:04)
[2018-07-25] MEDS: Pantoprazole 40 MG VIAL IVP (08:53)
[2018-07-25] MEDS: Nystatin POWDER 60 GM JAR TP ×2 (09:15→20:11)
--- NOTE | 2018-07-25 09:35 | PDOC.CMPRO ---
Care Management Progress Note S/O: Per reports, Christie appears to be making some slow gains. CM met with Netta who reported the family is seeking guardianship; specifically Tiny as she is retired and has more time to devote to Christie's everyday needs. Netta will remain DPOA per Christie's wishes. CM validated Netta's concerns as she waits for Christie's catatonia to resolve and remains hopeful Christie can return to her mental baseline, with the understanding her physical baseline functioning will take precedent only when and if her catatonia resolves. In the interim, she remains closely monitored and remains NPO on TPN. CM will continue to follow. A: 63 yo disabled female admitted for hypotension, aspiration pneumonia now with a PEG tube placement. P: Discharge disposition undetermined at this time, no change in status today patient remains ICU level of care. Family remains hopeful that Christie can return to baseline and independent level of functioning.. In this event, Christie would require eventual follow up for outpatient manometry per MD. CM will continue to provide support ongoing discharge planning and disposition.
--- NOTE | 2018-07-25 11:25 | W.PM.PROGNOT ---
Date of Service Date of service: 07/25/18 Time of Service: 11:25 Assessment and Plan (1) Schizophrenia: Current visit: No Status: Chronic Restarted home meds as above on 07/19. Ms. 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 Per recommendations patient was transferred to the ICU, and initiated on standing dose frequent IV Ativan - she now has improved mentation, interaction, following commands, and increasing verbal response, but not at her baseline and with significant waxing and waning. Recommendations per psychiatry as follows: - Will extend scheduled ativan 1mg IV to Q4 hour dosing, even if asleep (if easily arousable), but holding for sedation. Patient has pressors ordered incase of hypotention. - if improvement in mental status holds at current state or improves even further on above schedule, will continue to decrease Ativan off to prevent somnolence. - if previous episode reported by family is any guide, it will take about a week for catatonia to improve and during this week daily assessment and incremental reduction of ativan total dose may be possible. - long-term (3-6 months) of low dose twice daily dosing of scheduled ativan or clonazepam will likely be necessary to prevent recurrence of catatonia. (2) Dysphagia: Current visit: Yes Status: Acute History of benign distal esophageal stricture by EGD, s/p dilation in 2007. There was also noted Unprotected aspiration as well as large GERD with evidence of esophagitis. However, repeat EGD normal and Barium Swallow performed this hospitalization with no evidence of stricture, but with esophageal dysmotility and retention of barium in the esophagus. Patient treated for Aspiration pneumonia - s/p PEG tube placement 07/19. Maintain NPO status for now, continue Tube Feeds. Also restarted home meds via Peg Tube, with continued aspiration precautions. Due to hypotension from trial of ativan discontinued short acting Cardizem and initiated QHS Imipramine. Continue treatment of GERD with IV PPI therapy. Will ultimately need outpatient manometry if mental status returns to baseline and patient is able to cooperate. Of note, had been having problems with initiation of swallowing which appeared new and likely related to her altered mental status and holding of her psych medications. Her psychiatric medications have been restarted and administered via PEG tube, and catatonia appears improved. (3) Esophageal dysmotility: Current visit: Yes Status: Acute Treatment as above. (4) Hypotension: Current visit: Yes Status: Resolved Initially, hypotensive to the point of requiring pressor support, and with evidence of end-organ damage with KJ and elevation in Lactate - unknown etiology. Potential Dehydration in the setting of initiation of HCTZ vs. Sepsis - although no evidence of infiltrate or acute infection initially. Does not appear to have been adrenal insufficiency, with steroids weaned off. Echo without clear cardiogenic etiology, and no persistent arrhythmias on monitor. Aspiration pneumonia/recurrent aspiration events now seem like the most likely scenario. Levophed currently ordered but not in use, in case patient experiences repeat hypotension while receiving Lorazepam challenge. (5) Altered mental status: Current visit: Yes Status: Acute Initially described as episodes of confusion, 'staring', near unresponsive state while awake, with potential post-ictal like state - now appears different as patient's affect and verbal responsiveness have declined significantly. No evidence of active infection - thought potentially related to side-effect of Keppra (depression/confusion), now without change even after d/c. Potentially related to witholding of chronic psychiatric medications, catatonia per report from psychiatry. Reinitiated medications 07/19. Currently in ICU for trial of benzodiazepine therapy as above. EEG and MRI X2 were negative. (6) Bradycardia: Current visit: No Status: Acute Abnormally normal heart rate during initial bout of hypotension, then frankly bradycardic - reportedly had a bout of junctional rhythm as well. However, review of EKG by Cardiology/Electrophysiology with note of Sinus Bradycardia. Avoid jovan agents - also with tachycardia noted. 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 (7) Hypernatremia: Current visit: Yes Status: Acute Now resolved. Continue Tube Feeds, and increased Free Water via Peg Tube. (8) KJ (acute kidney injury): Current visit: Yes Status: Resolved Creatinine stable. (9) Anemia: Current visit: Yes Status: Chronic Mildly worsening hgb, heme negative stool. Check iron studies, B12, FA, and continue PPI therapy although doubt GI source or blood loss. (10) DVT prophylaxis: Current visit: Yes Status: Acute Continue Enoxaparin. (11) Advance directive on file: Current visit: Yes Status: Acute DNR/DNI. Subjective Interval history since last seen: 63-year-old woman with history of cognitive delay and Hypertension, admitted from [facility] Emergency Department with a diagnosis of Hypotension. Ms. Gardiner has a history of cognitive dysfunction, HTN, GERD, and Schizophrenia. She was initially sent to the emergency room because of several days of nonspecific weakness. In the ED she was noted to be significantly hypotensive with blood pressures in the 60s systolic, but without tachycardia. She was given fluid resuscitation and started on levophed. Initial laboratory evaluation of note for leukocytosis, low-grade pyuria (5-10 white cells), negative chest x-ray and CT of the abdomen that was unremarkable except for a known cyst in the right lower quadrant. She was then referred for admission for further evaluation and treatment. Since her admission Blood pressure eventually improved and she has remained off pressor support after recurrence of her hypotension, thought likely secondary to aspiration pneumonia/pneumonitis. Her Urine and Blood Cultures have remained negative, and her C. Diff and Fecal Leukocytes were negative as well. CT of the chest and ECHO have been normal. She did however show evidence of difficulty with swallowing, and a Barium Swallow revealed evidence of barium retention and esophageal dysmotility. Subsequent EGD was negative. Mrs. Gardiner had remained NPO and without oral meds or food for quite some time - successfully underwent PEG tube placement on 07/19 and restarted on her home medications. Still was not at her baseline mental status and had become essentially nonverbal and not following commands. Thought to be likely catatonia psychiatry was consulted and confirmed diagnosis. She was moved to the ICU and given trial of benzodiazepine therapy with a degree of success. She is now awake and alert, following commands and appropriate, but not yet at her baseline. Her symptoms are also waxing and waning. No other events reported. Remains afebrile. Exam Narrative Exam Narrative: General: Patient was awake at time of visit, more alert this morning, improved responsiveness and now following commands and verbal at times. NAD. Neck: Supple CV: Regular, mildly tachycardic, S1S2, No rubs, murmurs, or gallops. Pulmonary: Appears clear but limited due to patient's lack of cooperation and body habitus. Abdomen: + Bowel Sounds, soft, nontender, nondistended Vascular: No lower extremity edema Objective Objective Clinical Data: Abnormal lab results 07/25/18 07/25/18 Range/Units 06:40 06:40 RBC 3.30 L (4.00-5.20) m/cumm Hgb 8.2 L (12.0-15.5) g/dL Hct 27.5 L (36.0-46.0) % MCH 24.8 L (27.0-33.0) pg MCHC 29.8 L (32.0-36.0) g/dL RDW 19.6 H (11.7-14.6) % MPV 11.4 H (8.0-11.0) fL Absolute Monocytes 0.86 H (0.11-0.7) k/cumm Chloride 109 H (98-107) mmol/L Carbon Dioxide 32.8 H (21.0-32.0) mmol/L Anion Gap 2.2 L (3-11) mmol/L Glucose 107 H (70-100) mg/dL Vital Signs Temperature 36.6 C 07/25/18 05:00 Temperature Source Temporal Artery Scan 07/25/18 05:00 Pulse 104 H 07/25/18 09:45 Pulse Rhythm Regular 07/21/18 08:20 Pulse 99 H 07/25/18 07:01 Respiratory Rate 24 07/25/18 09:45 Respiratory Effort Incrsd Work of Breathing 07/25/18 03:00 Respiratory Depth Shallow 07/25/18 03:00 Respiratory Pattern Tachypnea 07/25/18 03:00 Blood Pressure 127/87 07/25/18 07:01 Blood Pressure Mean 96 07/25/18 07:01 Blood Pressure Position Supine 07/25/18 03:00 Pulse Oximetry 100 07/25/18 09:45 Respiratory End-tidal CO2 34 07/07/18 15:01 Oxygen Delivery Method Nasal Cannula 07/25/18 05:19 Oxygen Flow Rate 3 07/25/18 05:19 Fraction of Inspired Oxygen (FIO2) 28 07/16/18 00:30 Pain Level 0 07/25/18 03:00 Comment 07/21/18 15:40 Intake & Output 07/24/18 07/24/18 07/25/18 11:59 23:59 11:59 Intake Total 700 / 1120 420 / 1120 614 / 614 Output Total 2019 285 / 285 Balance 390 / -900 -1290 / -900 329 / 329 Weight 93.7 kg 96.4 kg Intake: IV 277 / 377 100 / 377 283 / 283 Intake, Tube Feeding Amount 423 / 743 320 / 743 331 / 331 Output: Urine / 2009 1700 2009 275 / 275 Output, Residual Other: Urine Color Pale Yellow Yellow Yellow Straw Straw Urine Appearance Clear Clear Clear Comment campbell to gravity with light colored yellow urine. indwelling campbell indwelling campbell Stool Occult Blood Negative Negative Stool Size Small Large Stool Characteristics Liquid Liquid Brown Brown Laboratory Results WBC 6.55 k/cumm (4.4-10.8) 07/25/18 06:40 RBC 3.30 m/cumm (4.00-5.20) L 07/25/18 06:40 Hgb 8.2 g/dL (12.0-15.5) L 07/25/18 06:40 Hct 27.5 % (36.0-46.0) L 07/25/18 06:40 MCV 83.3 fL (80-95) 07/25/18 06:40 MCH 24.8 pg (27.0-33.0) L 07/25/18 06:40 MCHC 29.8 g/dL (32.0-36.0) L 07/25/18 06:40 RDW 19.6 % (11.7-14.6) H 07/25/18 06:40 Plt Count 275 x1000/uL (130-400) 07/25/18 06:40 MPV 11.4 fL (8.0-11.0) H 07/25/18 06:40 Abs Immat Gran (auto) Cancelled 07/13/18 08:05 Immature Gran % 0.3 07/25/18 06:40 Neutrophils % 59.1 07/25/18 06:40 Band Neutrophils % Cancelled 07/13/18 08:05 Lymphocytes % 20.9 07/25/18 06:40 Atypical Lymphs % Cancelled 07/13/18 08:05 Monocytes % 13.1 07/25/18 06:40 Eosinophils % 6.3 07/25/18 06:40 Basophils % 0.3 07/25/18 06:40 Absolute Neutrophils 3.87 k/cumm (1.2-6.7) 07/25/18 06:40 Absolute Lymphocytes 1.37 k/cumm (1.2-3.4) 07/25/18 06:40 Absolute Monocytes 0.86 k/cumm (0.11-0.7) H 07/25/18 06:40 Absolute Eosinophils 0.41 k/cumm (0.0-0.7) 07/25/18 06:40 Absolute Basophils 0.02 k/cumm (0.0-0.2) 07/25/18 06:40 Metamyelocytes Cancelled 07/13/18 08:05 Myelocytes Cancelled 07/13/18 08:05 Promyelocytes Cancelled 07/13/18 08:05 Nucleated RBCs Cancelled 07/13/18 08:05 Differential Comment Rbc morph reviewed 07/17/18 06:35 Other Cell Type Cancelled 07/13/18 08:05 RBC Morphology See below 07/17/18 06:35 Polychromasia Present 07/17/18 06:35 Hypochromasia 1+ 07/17/18 06:35 Poikilocytosis 1+ 07/17/18 06:35 Basophilic Stippling Cancelled 07/13/18 08:05 Anisocytosis 2+ 07/17/18 06:35 Microcytosis 2+ 07/06/18 07:20 Macrocytosis Cancelled 07/13/18 08:05 Spherocytes Cancelled 07/13/18 08:05 Target Cells Cancelled 07/13/18 08:05 Tear Drop Cells Cancelled 07/13/18 08:05 Ovalocytes 2+ 07/17/18 06:35 Stomatocytes Cancelled 07/13/18 08:05 [place] Bodies Cancelled 07/13/18 08:05 [place] Cells Cancelled 07/13/18 08:05 Acanthocytes (Spur) Cancelled 07/13/18 08:05 Schistocytes Cancelled 07/13/18 08:05 D-Dimer 1329 ng/mlFEU (<500) H 07/07/18 21:15 Sodium 144 mmol/L (136-145) 07/25/18 06:40 Potassium 4.2 mmol/L (3.5-5.1) 07/25/18 06:40 Chloride 109 mmol/L (98-107) H 07/25/18 06:40 Carbon Dioxide 32.8 mmol/L (21.0-32.0) H 07/25/18 06:40 Anion Gap 2.2 mmol/L (3-11) L 07/25/18 06:40 BUN 17 mg/dL (7-18) 07/25/18 06:40 Creatinine 0.93 mg/dL (0.55-1.02) 07/25/18 06:40 Estimated GFR/1.73 m2 >= 60.00 (mL/min/1.73m2) 07/25/18 06:40 Glucose 107 mg/dL (70-100) H 07/25/18 06:40 Lactate 1.0 mmol/L (0.6-1.4) 07/06/18 07:20 Calcium 8.5 mg/dL (8.5-10.1) 07/25/18 06:40 Magnesium 2.0 mg/dL (1.8-2.4) 07/25/18 06:40 Total Bilirubin 0.3 mg/dL (0.2-1.0) 07/12/18 05:50 Conjugated Bilirubin 0.10 mg/dL (0.00-0.20) 07/12/18 05:50 AST 24 U/L (15-37) 07/12/18 05:50 ALT 47 U/L (12-78) 07/12/18 05:50 Alkaline Phosphatase 65 U/L (46-116) 07/12/18 05:50 Ammonia < 10 umol/L (11-32) L 07/15/18 10:20 Troponin I 0.02 ng/mL (0.00-0.06) 07/08/18 05:00 NT-Pro-B Natriuret Pep 1154 pg/mL (-299) H 07/07/18 21:15 Total Protein 4.6 g/dL (6.4-8.2) L 07/12/18 05:50 Albumin 2.2 g/dL (3.4-5.0) L 07/12/18 05:50 Lipase 252 U/L (73-393) 07/04/18 13:15 Procalcitonin <0.10 ng/mL (<or=1.5) 07/08/18 06:24 Calcitonin Cancelled 07/08/18 06:24 TSH 1.09 uIU/mL (0.358-3.74) 07/06/18 07:20 Urine Color Yellow (Yellow) 07/14/18 13:05 Urine Clarity Clear 07/14/18 13:05 Urine pH 5.0 (5-8) 07/14/18 13:05 Ur Specific [place] <= 1.005 (1.005-1.025) 07/14/18 13:05 Urine Protein Negative mg/dL (Negative) 07/14/18 13:05 Urine Ketones Negative mg/dL (Negative) 07/14/18 13:05 Urine Blood Small (Negative) H 07/14/18 13:05 Urine Nitrite Negative (Negative) 07/14/18 13:05 Urine Bilirubin Negative (Negative) 07/14/18 13:05 Urine Urobilinogen 0.2 EU/dL (Up TO 0.2) 07/14/18 13:05 Ur Leukocyte Esterase Negative (Negative) 07/14/18 13:05 Urine RBC 3-5 (0-2) H 07/14/18 13:05 Urine WBC 0-2 HPF (0-5) 07/14/18 13:05 Ur Epithelial Cells Rare HPF (Negative) 07/14/18 13:05 Urine Crystals Rare amorphous HPF (Negative) 07/14/18 13:05 Urine Bacteria Rare HPF (Negative) 07/14/18 13:05 Urine Casts Negative LPF (Negative) 07/14/18 13:05 Urine Mucus Trace (Negative) 07/14/18 13:05 Ur Culture Indicated? C&s done as ordered 07/14/18 13:05 Urine Glucose 100 mg/dL (Negative) 07/14/18 13:05 Stool Campylobacter PCR See comments 07/06/18 12:45 Stool Salmonella PCR See comments 07/06/18 12:45 Stool Shigella PCR See comments 07/06/18 12:45 Vancomycin Trough 18.9 ug/mL (10.0-20.0) 07/20/18 06:17 Shiga Toxin (PCR) See comments 07/06/18 12:45 Path Cons Comment See comment 07/06/18 07:20 Miscellaneous Test Cancelled 07/08/18 06:24
--- NOTE | 2018-07-25 15:40 | PT.INIE ---
Date of service: 07/25/18 Time of Service: 14:00 PT Notes Inpatient Physical Therapy Evaluation Date: 07/25/18 Referring Doctor: Dr. Sigala PT Orders: PT CONSULT: deconditioned, long hospitalization. Not able to ambulate at this time Precautions: fall, standard Patient Profile/Admitting Diagnosis: Patient admitted with c/o weakness, and found in the ER to be hypotensive. She has had a prolonged hospital stay, and is now being managed by both Dr. Sigala and Dr. Scott. She had participated in PT intervention to a limited degree early in her acute care stay. She was placed on hold after transfer to the ICU where her psychiatric medications were addressed. Dr. Sigala has now requested a new consult, as patient has now been bedridden for several days. PMHX: cognitive dysfunction; HTN; GERD; schizophrenia; Graves disease; esophageal stricture s/p dilation Social History/Home Situation: Patient lives alone in a single level home. She uses a 4WW at night, and according to family present at time of eval, has been encouarged to use this during the day as well, although with limited compliance. She has a life cycle assessment analyst who comes in to help with meals, grocery shopping and housework. She has supportive family in the area, who have been present here at the hospital throughout her stay. Equipment Owned/DME: 4WW Subjective: Christie does not provide any subjective history, although she shakes her head yes when asked if she's agreeable to PT consult, and mouths no when asked if she has any pain. Her sister is present at time of consult, and reports she is happy to see Christie working with PT in an effort to get stronger. Objective: General Observation: Resting in bed with multiple lines in place. Patient has a IV lines to LLE, telemetry, PEG tube, and a Bell catheter. Mental Status: Alert. Patient responds only intermittently, and verbalizes poorly. She is easily distracted and requires significant cues throughout session. Pain: denies Vital Signs: monitored on telemetry. HR elevated from resting of 90 to 115 with transition to long sit position. ROM: Right Upper Extremity: AROM allows shoulder flexion to 90 degrees. Wrist and elbow motion are WNL. Left Upper Extremity: AROM allows shoulder flexion to 90 degrees. Wrist and elbow motion are WNL. Right Lower Extremity: Hip flexion allows 80 degrees functionally. Knee motion 0-120 bilaterally. Ankle motion allows 0 degrees DF only. Left Lower Extremity: Hip flexion allows 80 degrees functionally. Knee motion 0-120 bilaterally. Ankle motion allows 0 degrees DF only. Strength: Right Upper Extremity: Shoulder flexion 3-/5. Biceps 3/5. Left Upper Extremity: Shoulder flexion 3-/5. Biceps 3/5. Right Lower Extremity: Patient is functionally able to perform SLR without extension lag. Ankle DF is 3/5 bilat. HS 3/5 bilat. Left Lower Extremity: Patient is functionally able to perform SLR without extension lag. Ankle DF is 3/5 bilat. HS 3/5 bilat. Sensation: intact distally Bed Mobility/Transfers: supine-sit: unable sit-stand: unable Patient is able to perform partial supine (HOB 30 degrees) to long sit independently, although with need for significant cues. Gait: Unable Balance: Unable to assess Special Tests: Mobility Limitations Standardized Measure [facility] AM-PAC 6 clicks Basic Mobility Inpatient Short Form: Raw Score: 7 Standardized Score: 26.42 CMS Score: 92% Informed Consent/Education: Patient instructed in purpose of PT consult and plan of care. Assessment: Patient is a 63 year old female referred to physical therapy services with the diagnosis of deconditioned, long hospitalization. Not able to ambulate at this time. Patient presents with clinical signs and symptoms consistent with diagnosis, with marked limitations in mobility and activity tolerance, with significant elevation in HR with only minor movements for bed mobility. She has been undergoing changes in her psychiatric medications, and continues to struggle with following commands; I anticipate that she will continue to have fluctuating ability to participate in PT intervention. She will certainly benefit from resumption of skilled care to maximize her strength and mobility, but will likely have to alter activities based on her ability to participate day to day. She currently demonstrates the following impairment level findings: 1. Decreased UE strength 2. Decreased ankle DF 3. Decreased functional strength for bed mobility 4. Anticipated gait impairments and limitations in activity tolerance Impairments are contributing to the following functional limitations: 1. Decreased independence with bed mobility 2. Decreased independence with transfers 3. Unable to ambulate 4. Anticipated decrease in activity tolerance [facility] score 92% deficit Patient is assessed as a High 86852 complexity based on the following: History: 63 year old female with cognitive delay admitted with weakness and hypotension. She's had an extensive acute care stay with limited mobility for the past several days, as well as an extensive medical history as noted above. Examination: functional limitations as noted above Presentation: unstable Decision Making: high complexity Goals: Goals X1 week 1. Supine-Sit : supervision 2. Sit-Supine : supervision 3. Sit-Stand : supervision 4. Stand-Sit : supervision 5. Bed-Chair : CG with 4WW 6. Chair-Bed : CG with 4WW 7. Gait : CG with 4WW x 50' Plan of Care/Treatment Plan: 1-2x/day, 7 days/week x 1 week. Plan of care has been reviewed with the INSURANCE OFFICE MANAGER providing the service under Physical Therapy direction. Initiate Physical Therapy intervention for strengthening, bed mobility, transfers, gait, stairs, balance training, use of assistive device. DISCHARGE RECOMMENDATIONS: home with family assistance. Will likely require continued PT intervention via Home Health services TREATMENT CODE/TIME: 25 minutes ([id number])
[2018-07-25 17:03] LABS: Iron 20 ug/dL (50-175); Total Iron Binding Capacity 235 ug/dL (250-450); Transferrin Sat 9 % (15-50)
[2018-07-25 17:29] LABS: Ferritin 35 ng/mL (8-388); Vitamin B12 471 pg/mL (193-986)
[2018-07-25] MEDS: OLANZapine 5 MG TAB 10 MG UD (21:56)
[2018-07-25] MEDS: Donepezil 5 MG TAB 10 MG UD (21:56)
[2018-07-26] VITALS (34 sets, daily range): BP systolic 90–177; BP diastolic 52–112; PULSE 75–113; RESP 2–33; TEMP 36.7–37.1; O2SAT 91–99
[2018-07-26] MEDS: Levalbuterol 1.25 MG/3 ML UPD VIAL UPD (04:31)
[2018-07-26 05:59] LABS: Abs Immature Grans 0.01 k/cumm (0.0-0.09); Absolute Basophil Count 0.03 k/cumm (0.0-0.2); Absolute Monocyte Count 0.88 k/cumm (0.11-0.7); Absolute Neutrophil Count 3.75 k/cumm (1.2-6.7); Basophils % 0.5; Eosinophils % 4.7; HCT 26.4 % (36.0-46.0); HGB 7.9 g/dL (12.0-15.5); Immature Grans % 0.2; Mean Corp. HGB Concentration 29.9 g/dL (32.0-36.0); Mean Corpuscular Hemoglobin 24.5 pg (27.0-33.0); Mean Platelet Volume 10.9 fL (8.0-11.0); Monocytes % 13.8; Neutrophils % 58.8; Platelet Count 294 x1000/uL (130-400); RBC 3.22 m/cumm (4.00-5.20); RBC Distribution Width 19.3 % (11.7-14.6); White Blood Cell Count 6.37 k/cumm (4.4-10.8)
[2018-07-26 06:06] LABS: Anion Gap 6.1 mmol/L (3-11); BUN 16 mg/dL (7-18); CO2 30.9 mmol/L (21.0-32.0); CREATININE 0.92 mg/dL (0.55-1.02); Calcium 8.8 mg/dL (8.5-10.1); Chloride 107 mmol/L (98-107); Glucose 103 mg/dL (70-100); Potassium 3.8 mmol/L (3.5-5.1); Sodium 144 mmol/L (136-145)
[2018-07-26 06:41] LABS: Diff Comment RBC Morph Reviewed
[2018-07-26 06:42] LABS: Hypochromasia 1+; Microcytosis 2+; Ovalocytes 2+; Schistocytes 1+
[2018-07-26] MEDS: Pantoprazole 40 MG VIAL IVP (07:56)
[2018-07-26] MEDS: Normal Saline Flush 10 ML SYR IVP ×2 (07:57→11:22)
[2018-07-26] MEDS: Enoxaparin 40 MG/0.4 ML SYR SC (08:00)
[2018-07-26] MEDS: Memantine 5 MG TAB 10 MG UD ×2 (08:10→20:37)
[2018-07-26] MEDS: Loperamide 2 MG CAP UD (08:10)
[2018-07-26] MEDS: Methimazole 5 MG TAB 10 MG UD (08:10)
--- NOTE | 2018-07-26 10:40 | PT.INTREAT ---
Date of service: 07/26/18 Time of Service: 10:40 PT Notes Inpatient Physical Therapy Treatment Note [facility] Date: 07/26/18 PRECAUTIONS: Fall SUBJECTIVE: Christie is agreeable to participating in PT OBJECTIVE: PAIN: No c/o pain BED MOBILITY/TRANSFERS Rolling L/R: Mod A to L and R Supine-sit: I Sit-supine: I Sit-stand: Refused THEREX: Patient completed several LE strengthening exercises while seated at EOB, as per flow sheet. ASSESSMENT: Patient tolerated session well at first. She then became non-compliant, refusing to stand, and getting herself back to bed. Patient was able to perform rolling in bed, following encouragement, to be cleaned up and have linens changed. Patient would benefit from continued gait and transfer training for improved mobility and activity tolerance. PLAN: Continue with PT's POC TREATMENT CODE/TIME: 30 minutes; [id number] x2
--- NOTE | 2018-07-26 10:45 | PTTR_ITS ---
Date of service: 07/26/18 Time of Service: 10:40 PT Notes Inpatient Physical Therapy Treatment Note [facility] Date: 07/26/18 PRECAUTIONS: Fall SUBJECTIVE: Christie is agreeable to participating in PT OBJECTIVE: PAIN: No c/o pain BED MOBILITY/TRANSFERS Rolling L/R: Mod A to L and R Supine-sit: I Sit-supine: I Sit-stand: Refused THEREX: Patient completed several LE strengthening exercises while seated at EOB, as per flow sheet. ASSESSMENT: Patient tolerated session well at first. She then became non- compliant, refusing to stand, and getting herself back to bed. Patient was able to perform rolling in bed, following encouragement, to be cleaned up and have linens changed. Patient would benefit from continued gait and transfer training for improved mobility and activity tolerance. PLAN: Continue with PT's POC TREATMENT CODE/TIME: 30 minutes; [id number] x2
[2018-07-26] MEDS: LORazepam 2 MG/ML VIAL 1 MG IVP ×4 (11:07→23:31)
[2018-07-26] MEDS: Nystatin POWDER 60 GM JAR TP ×2 (11:09→20:39)
[2018-07-26] MEDS: Cyanocobalamin 500 MCG TAB 1000 MCG NG (11:19)
[2018-07-26] MEDS: Folic Acid 1 MG TAB NG (11:20)
[2018-07-26] MEDS: Ferrous Sulfate 44 MG/ML Liquid 325 MG NG (11:20)
[2018-07-26] MEDS: Normal Saline Flush 10 ML SYR 20 ML IVP ×2 (11:22→20:38)
--- NOTE | 2018-07-26 12:47 | PDOC.CMPRO ---
- If Service Date Differs Date of service: 07/26/18 Time of Service: 12:47 Care Management Progress Note S/O: Christie remains in the ICU at this time. She continues to receive tube feeds at this time. Christie's family visit frequently and are very supportive, at this time family is pursuing guardianship. Per report in morning meeting Christie was able to follow commands and had a good night. She will remain in the ICU at this time. no change in DC plan. A: 63 yo disabled female admitted for hypotension, aspiration pneumonia now with a PEG tube placement. P: Discharge disposition undetermined at this time, no change in status today patient remains ICU level of care. Family remains hopeful that Christie can return to baseline and independent level of functioning.. In this event, Christie would require eventual follow up for outpatient manometry per MD. CM will continue to provide support ongoing discharge planning and disposition.
--- NOTE | 2018-07-26 14:22 | W.PM.PROGNOT ---
Date of Service Date of service: 07/26/18 Time of Service: 14:22 Assessment and Plan (1) Schizophrenia: Current visit: No Status: Chronic with catatonia - treatment as above (2) Altered mental status: Current visit: Yes Status: Acute At this point felt to be predominantly psychiatric in etiology, as in catatonia. Continue IV ativan at current doses and monitor mental status closely. (3) Dysphagia: Current visit: Yes Status: Acute Multifactorial - both oropharyngeal and esophageal, with at least part of oropharyngeal component thought to be psychogenic/due to being off of psychiatric medications. Failed several swallowing evaluations. s/p PEG tube - tolerating TF's well. She will need outpatient monometry to evaluate her esophageal dysphagia/dysmotility. s/p EGD on this admission with a nonobstructing Schatzki ring. (4) Weakness on right side of face: Current visit: Yes Status: Resolved No evidence for CVA or seizure. Off of anticonvulsants at this time. (5) Esophageal dysmotility: Current visit: Yes Status: Acute As above (6) Hypotension: Current visit: Yes Status: Resolved Initially, hypotension to the point of shock requiring pressors with evidence of end-organ damage with KJ and elevation in Lactate - at this point felt to be due to aspiration pneumonia at the time Finished hydrocortisone taper, but no actual evidence of adrenal insufficiency on admission. Latest BP's in the 90's thought to be secondary to ativan use - since then, noted to be with SBP in 150's. (7) Bradycardia: Current visit: No Status: Acute Resolved, was seen in setting of hypotension. Avoid jovan agents. ? Tachy/Justin Syndrome. No longer requiring pressors/chronotropes. (8) KJ (acute kidney injury): Current visit: Yes Status: Resolved Cr remains stable - continue to monitor (9) GERD (gastroesophageal reflux disease): Current visit: Yes Status: Chronic Continue PPI 40 mg IV daily (10) Hypomagnesemia: Current visit: Yes Status: Resolved Continue to monitor (11) Hypernatremia: Current visit: Yes Status: Resolved Continue to monitor (12) Hypokalemia: Current visit: Yes Status: Resolved Continue to monitor (13) Discharge planning issues: Current visit: Yes Status: Acute DNR/DNI, s/p PEG (14) DVT prophylaxis: Current visit: Yes Status: Acute Lovenox Subjective Interval history since last seen: Christie is reported by nursing to have an improved level of alertness today. She states she is not in pain and that her breathing is good, but does not answer my other questions. She remains on tube feeding. Remains on IV ativan - 6 am dose was held due to sedation. Exam Narrative Exam Narrative: General: in bed, awake, verbally intermittently responsive; continues to reach for her neck/throat HEENT: EOMI, MMM Heart: RRR, no m/r/g Lungs: ?mildly tachypneic, diminished breath sounds B GI: abdomen soft; RLQ mass/seroma unchanged; PEG tube site clean, dry, intact Extremities: no e/c/c BLE's; 1+ BLE pedal pulses. Objective Objective Clinical Data: Abnormal lab results 07/25/18 07/25/18 07/26/18 Range/Units 16:13 16:13 05:47 RBC (4.00-5.20) m/cumm Hgb (12.0-15.5) g/dL Hct (36.0-46.0) % MCH (27.0-33.0) pg MCHC (32.0-36.0) g/dL RDW (11.7-14.6) % Absolute Monocytes (0.11-0.7) k/cumm Glucose 103 H (70-100) mg/dL Iron 20 L (50-175) ug/dL TIBC 235 L (250-450) ug/dL Transferrin % Sat 9 L (15-50) % Folate 8.0 L (8.6-20.0) ng/mL 07/26/18 Range/Units 05:47 RBC 3.22 L (4.00-5.20) m/cumm Hgb 7.9 L (12.0-15.5) g/dL Hct 26.4 L (36.0-46.0) % MCH 24.5 L (27.0-33.0) pg MCHC 29.9 L (32.0-36.0) g/dL RDW 19.3 H (11.7-14.6) % Absolute Monocytes 0.88 H (0.11-0.7) k/cumm Glucose (70-100) mg/dL Iron (50-175) ug/dL TIBC (250-450) ug/dL Transferrin % Sat (15-50) % Folate (8.6-20.0) ng/mL Vital Signs Temperature 37.0 C 07/26/18 12:45 Temperature Source Temporal Artery Scan 07/26/18 12:45 Pulse 108 H 07/26/18 13:01 Pulse Rhythm Regular 07/21/18 08:20 Pulse 109 H 07/26/18 14:01 Respiratory Rate 33 H 07/26/18 14:01 Respiratory Effort Non-Labored 07/26/18 12:45 Respiratory Depth Normal 07/26/18 12:45 Respiratory Pattern Tachypnea 07/26/18 12:45 Blood Pressure 150/81 H 07/26/18 13:01 Blood Pressure Mean 95 07/26/18 13:01 Blood Pressure Position Left Lateral 07/26/18 12:45 Pulse Oximetry 97 07/26/18 14:01 Respiratory End-tidal CO2 34 07/07/18 15:01 Oxygen Delivery Method Room Air 07/26/18 12:45 Oxygen Flow Rate 0 07/26/18 12:45 Fraction of Inspired Oxygen (FIO2) 28 07/16/18 00:30 Pain Level 0 07/26/18 12:45 Comment 07/21/18 15:40 Intake & Output 07/25/18 07/26/18 07/26/18 23:59 11:59 23:59 Intake Total 728 / 1690.5 117.5 / 117.5 Output Total 2200 / 2485 510 / 1150 640 / 1150 Balance -1472 / -794.5 -392.5 / -1032.5 -640 / -1032.5 Weight 99.2 kg Intake: IV 418 / 818.5 117.5 / 117.5 Intake, Tube Feeding Amount 310 / 872 Output: Urine 2200 / 2475 500 / 1140 640 / 1140 Output, Residual 0 / 10 Other: Urine Color Yellow Yellow Yellow Straw Urine Appearance Clear Clear Clear Sediment Urine Odor None Normal Comment indwelling campbell Campbell intact and draining clear yellow urine. Campbell intact and draining clear yellow urine. Stool Occult Blood Negative Stool Size Moderate Small Moderate Stool Characteristics Liquid Brown Brown Voiding Methods Indwelling Catheter Laboratory Results WBC 6.37 k/cumm (4.4-10.8) 07/26/18 05:47 RBC 3.22 m/cumm (4.00-5.20) L 07/26/18 05:47 Hgb 7.9 g/dL (12.0-15.5) L 07/26/18 05:47 Hct 26.4 % (36.0-46.0) L 07/26/18 05:47 MCV 82.0 fL (80-95) 07/26/18 05:47 MCH 24.5 pg (27.0-33.0) L 07/26/18 05:47 MCHC 29.9 g/dL (32.0-36.0) L 07/26/18 05:47 RDW 19.3 % (11.7-14.6) H 07/26/18 05:47 Plt Count 294 x1000/uL (130-400) 07/26/18 05:47 MPV 10.9 fL (8.0-11.0) 07/26/18 05:47 Abs Immat Gran (auto) Cancelled 07/13/18 08:05 Immature Gran % 0.2 07/26/18 05:47 Neutrophils % 58.8 07/26/18 05:47 Band Neutrophils % Cancelled 07/13/18 08:05 Lymphocytes % 22.0 07/26/18 05:47 Atypical Lymphs % Cancelled 07/13/18 08:05 Monocytes % 13.8 07/26/18 05:47 Eosinophils % 4.7 07/26/18 05:47 Basophils % 0.5 07/26/18 05:47 Absolute Neutrophils 3.75 k/cumm (1.2-6.7) 07/26/18 05:47 Absolute Lymphocytes 1.40 k/cumm (1.2-3.4) 07/26/18 05:47 Absolute Monocytes 0.88 k/cumm (0.11-0.7) H 07/26/18 05:47 Absolute Eosinophils 0.30 k/cumm (0.0-0.7) 07/26/18 05:47 Absolute Basophils 0.03 k/cumm (0.0-0.2) 07/26/18 05:47 Metamyelocytes Cancelled 07/13/18 08:05 Myelocytes Cancelled 07/13/18 08:05 Promyelocytes Cancelled 07/13/18 08:05 Nucleated RBCs Cancelled 07/13/18 08:05 Differential Comment Rbc morph reviewed 07/26/18 05:47 Other Cell Type Cancelled 07/13/18 08:05 RBC Morphology See below 07/26/18 05:47 Polychromasia Present 07/17/18 06:35 Hypochromasia 1+ 07/26/18 05:47 Poikilocytosis 1+ 07/17/18 06:35 Basophilic Stippling Cancelled 07/13/18 08:05 Anisocytosis 2+ 07/17/18 06:35 Microcytosis 2+ 07/26/18 05:47 Macrocytosis Cancelled 07/13/18 08:05 Spherocytes Cancelled 07/13/18 08:05 Target Cells Cancelled 07/13/18 08:05 Tear Drop Cells Cancelled 07/13/18 08:05 Ovalocytes 2+ 07/26/18 05:47 Stomatocytes Cancelled 07/13/18 08:05 [place] Bodies Cancelled 07/13/18 08:05 Girma Cells Cancelled 07/13/18 08:05 Acanthocytes (Spur) Cancelled 07/13/18 08:05 Schistocytes 1+ 07/26/18 05:47 D-Dimer 1329 ng/mlFEU (<500) H 07/07/18 21:15 Sodium 144 mmol/L (136-145) 07/26/18 05:47 Potassium 3.8 mmol/L (3.5-5.1) 07/26/18 05:47 Chloride 107 mmol/L (98-107) 07/26/18 05:47 Carbon Dioxide 30.9 mmol/L (21.0-32.0) 07/26/18 05:47 Anion Gap 6.1 mmol/L (3-11) 07/26/18 05:47 BUN 16 mg/dL (7-18) 07/26/18 05:47 Creatinine 0.92 mg/dL (0.55-1.02) 07/26/18 05:47 Estimated GFR/1.73 m2 >= 60.00 (mL/min/1.73m2) 07/26/18 05:47 Glucose 103 mg/dL (70-100) H 07/26/18 05:47 Lactate 1.0 mmol/L (0.6-1.4) 07/06/18 07:20 Calcium 8.8 mg/dL (8.5-10.1) 07/26/18 05:47 Magnesium 2.0 mg/dL (1.8-2.4) 07/26/18 05:47 Iron 20 ug/dL (50-175) L 07/25/18 16:13 TIBC 235 ug/dL (250-450) L 07/25/18 16:13 Transferrin % Sat 9 % (15-50) L 07/25/18 16:13 Ferritin 35 ng/mL (8-388) 07/25/18 16:13 Total Bilirubin 0.3 mg/dL (0.2-1.0) 07/12/18 05:50 Conjugated Bilirubin 0.10 mg/dL (0.00-0.20) 07/12/18 05:50 AST 24 U/L (15-37) 07/12/18 05:50 ALT 47 U/L (12-78) 07/12/18 05:50 Alkaline Phosphatase 65 U/L (46-116) 07/12/18 05:50 Ammonia < 10 umol/L (11-32) L 07/15/18 10:20 Troponin I 0.02 ng/mL (0.00-0.06) 07/08/18 05:00 NT-Pro-B Natriuret Pep 1154 pg/mL (-299) H 07/07/18 21:15 Total Protein 4.6 g/dL (6.4-8.2) L 07/12/18 05:50 Albumin 2.2 g/dL (3.4-5.0) L 07/12/18 05:50 Lipase 252 U/L (73-393) 07/04/18 13:15 Vitamin B12 471 pg/mL (193-986) 07/25/18 16:13 Folate 8.0 ng/mL (8.6-20.0) L 07/25/18 16:13 Procalcitonin <0.10 ng/mL (<or=1.5) 07/08/18 06:24 Calcitonin Cancelled 07/08/18 06:24 TSH 1.09 uIU/mL (0.358-3.74) 07/06/18 07:20 Urine Color Yellow (Yellow) 07/14/18 13:05 Urine Clarity Clear 07/14/18 13:05 Urine pH 5.0 (5-8) 07/14/18 13:05 Ur Specific [place] <= 1.005 (1.005-1.025) 07/14/18 13:05 Urine Protein Negative mg/dL (Negative) 07/14/18 13:05 Urine Ketones Negative mg/dL (Negative) 07/14/18 13:05 Urine Blood Small (Negative) H 07/14/18 13:05 Urine Nitrite Negative (Negative) 07/14/18 13:05 Urine Bilirubin Negative (Negative) 07/14/18 13:05 Urine Urobilinogen 0.2 EU/dL (Up TO 0.2) 07/14/18 13:05 Ur Leukocyte Esterase Negative (Negative) 07/14/18 13:05 Urine RBC 3-5 (0-2) H 07/14/18 13:05 Urine WBC 0-2 HPF (0-5) 07/14/18 13:05 Ur Epithelial Cells Rare HPF (Negative) 07/14/18 13:05 Urine Crystals Rare amorphous HPF (Negative) 07/14/18 13:05 Urine Bacteria Rare HPF (Negative) 07/14/18 13:05 Urine Casts Negative LPF (Negative) 07/14/18 13:05 Urine Mucus Trace (Negative) 07/14/18 13:05 Ur Culture Indicated? C&s done as ordered 07/14/18 13:05 Urine Glucose 100 mg/dL (Negative) 07/14/18 13:05 Stool Campylobacter PCR See comments 07/06/18 12:45 Stool Salmonella PCR See comments 07/06/18 12:45 Stool Shigella PCR See comments 07/06/18 12:45 Vancomycin Trough 18.9 ug/mL (10.0-20.0) 07/20/18 06:17 Shiga Toxin (PCR) See comments 07/06/18 12:45 Path Cons Comment See comment 07/06/18 07:20 Miscellaneous Test Cancelled 07/08/18 06:24
--- NOTE | 2018-07-26 15:02 | DI.RAD_ITS ---
SYMPTOM/DIAGNOSIS: TACHYPNEA, H/O ASPIRATION R/O ASPIRATION PNA PORTABLE CHEST: Comparison is made with 24 July 2018 The exam is limited by poor pulmonary inflation and rotation as well as mild respiratory motion. The heart size is unchanged. The aorta is quite tortuous. A PICC line is again noted with the tip in the SVC The patient's chin overlies the right lung apex. No gross infiltrates are seen. There is no evidence of pneumothorax or effusion. IMPRESSION: Limited exam. No acute abnormality.
--- NOTE | 2018-07-26 15:49 | DI.VRAD_ITS ---
EXAM: XR Chest, 1 View EXAM DATE/TIME: 07/26/2018 2:27 PM CLINICAL HISTORY: 63 years old, female; Signs and symptoms; Tachypnea; Patient HX: H/o aspiration, R/O aspiration pna TECHNIQUE: XR of the chest, 1 view. COMPARISON: SC XR PORTABLE CHEST AP 07/24/2018 5:45 PM FINDINGS: Tubes, catheters and devices: Left PICC line tip over the atriocaval junction. Lungs: Probable mild left basilar pneumonia final left heart. Pleural space: Unremarkable. No pleural effusion. No pneumothorax. Heart/Mediastinum: Unremarkable. No cardiomegaly. Bones/joints: Unremarkable. Other findings: Patient rotation to the right. IMPRESSION: 1. Probable mild left basilar pneumonia final left heart. 2. Left PICC line tip over the atriocaval junction. Dictated and Authenticated by: Valentín Oconnor MD. Ordering:SHEILA Robb MD
--- NOTE | 2018-07-26 16:47 | WOUNDCARE ---
Wound Care Report Wound consult placed on 07/19/18, this nurse notified of consult today, 07/26/18. Pt seen in ICU, agreeable to consult A&Ox1. Pt has what appears to be IAD. Currently receiving tube feeds and as a result is having incontinent liquid stools every 2-3 hours. Large area of reddened, denuded skin noted on bilateral buttocks and chay area. Entire area blanchable. some bleeding noted around anal area during cleaning of stool. Inner thighs/groin also reddened and denuded. Possible component of candidiasis albicans based on presentation, MD Whittington notified of assessment. Would recommend applying zinc based cream (in house brand is [id number] ) after each incontinent episode. Use blue package barrier wipes for cleansing skin. No diapers/briefs, use cloth chucks only. If further/worsening skin breakdown occurs even with prompt attention to incontinent episodes and zinc application please notify wound nurse or MD. Thank you for the consult.
[2018-07-26] MEDS: Donepezil 5 MG TAB 10 MG UD (22:00)
[2018-07-26] MEDS: OLANZapine 5 MG TAB 10 MG UD (22:00)
[2018-07-27] VITALS (26 sets, daily range): BP systolic 96–177; BP diastolic 56–110; PULSE 74–105; RESP 22–44; TEMP 36.5–37; O2SAT 90–96
[2018-07-27 06:10] LABS: Abs Immature Grans 0.01 k/cumm (0.0-0.09); Absolute Basophil Count 0.03 k/cumm (0.0-0.2); Absolute Eosinophil Count 0.46 k/cumm (0.0-0.7); Absolute Monocyte Count 0.98 k/cumm (0.11-0.7); Absolute Neutrophil Count 4.49 k/cumm (1.2-6.7); Basophils % 0.4; Eosinophils % 6.3; HCT 27.4 % (36.0-46.0); HGB 8.4 g/dL (12.0-15.5); Immature Grans % 0.1; Lymphocytes % 17.9; Mean Corp. HGB Concentration 30.7 g/dL (32.0-36.0); Mean Corpuscular Hemoglobin 25.1 pg (27.0-33.0); Mean Corpuscular Volume 81.8 fL (80-95); Mean Platelet Volume 11.1 fL (8.0-11.0); Monocytes % 13.5; Neutrophils % 61.8; Platelet Count 316 x1000/uL (130-400); RBC 3.35 m/cumm (4.00-5.20); RBC Distribution Width 19.1 % (11.7-14.6); White Blood Cell Count 7.27 k/cumm (4.4-10.8)
[2018-07-27 06:23] LABS: Anion Gap 5.1 mmol/L (3-11); BUN 14 mg/dL (7-18); CO2 30.9 mmol/L (21.0-32.0); CREATININE 0.85 mg/dL (0.55-1.02); Calcium 8.6 mg/dL (8.5-10.1); Chloride 106 mmol/L (98-107); Glucose 113 mg/dL (70-100); Magnesium 1.8 mg/dL (1.8-2.4); Potassium 3.6 mmol/L (3.5-5.1); Sodium 142 mmol/L (136-145)
[2018-07-27] MEDS: Normal Saline Flush 10 ML SYR IVP ×3 (08:17→21:49)
[2018-07-27] MEDS: Normal Saline Flush 10 ML SYR 20 ML IVP ×2 (08:17→21:27)
[2018-07-27] MEDS: Pantoprazole 40 MG VIAL IVP (08:18)
[2018-07-27] MEDS: Folic Acid 1 MG TAB NG (08:19)
[2018-07-27] MEDS: Loperamide 2 MG CAP UD (08:19)
[2018-07-27] MEDS: Methimazole 5 MG TAB UD (08:19)
[2018-07-27] MEDS: Cyanocobalamin 500 MCG TAB 1000 MCG NG (08:19)
[2018-07-27] MEDS: Memantine 5 MG TAB 10 MG UD ×2 (08:19→21:26)
[2018-07-27] MEDS: Ferrous Sulfate 44 MG/ML Liquid 325 MG NG (08:19)
[2018-07-27] MEDS: Enoxaparin 40 MG/0.4 ML SYR SC (08:24)
[2018-07-27] MEDS: Nystatin POWDER 60 GM JAR TP ×2 (08:26→21:30)
[2018-07-27] MEDS: PIPERACILLIN/TAZO 3.375 GM in Normal Saline 50 ML IVPB ×3 (09:40→21:32)
[2018-07-27] MEDS: LORazepam 2 MG/ML VIAL 1 MG IVP ×4 (09:41→21:28)
--- NOTE | 2018-07-27 10:31 | PT.INTREAT ---
Date of service: 07/27/18 Time of Service: 10:31 PT Notes Inpatient Physical Therapy Treatment Note [facility] Date: 07/27/18 PRECAUTIONS: Fall SUBJECTIVE: Christie is agreeable to participating in PT. She states that she slept well last night. OBJECTIVE: PAIN: No c/o pain BED MOBILITY/TRANSFERS Rolling L/R: Min A to L/R Supine-sit: I Sit-supine: I Sit-stand: Refused Stand-sit: Refused Static sitting at EOB x5 minutes with SBA GAIT: Refused THEREX: Patient completed several global strengthening exercises in both supine and seated positions, as per flow sheet. Patient also performed functional scooting up EOB x5 with Mod A. ASSESSMENT: Patient tolerated session well without complaint. Patient demonstrates occasions of inability to follow directions. She would benefit from continued transfer training and strengthening for improved mobility. PLAN: Continue with PT's POC TREATMENT CODE/TIME: 40 minutes; 52020 x2, 16850
--- NOTE | 2018-07-27 14:18 | PDOC.CMPRO ---
- If Service Date Differs Date of service: 07/27/18 Time of Service: 14:18 Care Management Progress Note S/O: Christie remains in the ICU at this time. She continues to receive tube feeds at this time. Christie's family was in today visiting and are interested in discussing guardianship, as well as obtaining paperwork in regards to applying for guardianship. CM to discuss this with christie's family on Saturday and to provide them with the paperwork for completion. A: 63 yo disabled female admitted for hypotension, aspiration pneumonia now with a PEG tube placement. P: Discharge disposition undetermined at this time, no change in status today patient remains ICU level of care. Family remains hopeful that Christie can return to baseline and independent level of functioning.. In this event, Christie would require eventual follow up for outpatient manometry per MD. CM will continue to provide support ongoing discharge planning and disposition.
--- NOTE | 2018-07-27 14:31 | PGE_ITS ---
Date of Service Date of service: 07/27/18 Time of Service: 14:27 Assessment and Plan (1) Aspiration pneumonia: Current visit: Yes Status: Acute Started on zosyn. Keep NPO. Unclear if this is happening due to aspiration on tube feeding or on respiratory secritions. (2) Schizophrenia: Current visit: No Status: Chronic with catatonia - treatment as above. Improving (3) Altered mental status: Current visit: Yes Status: Acute At this point felt to be predominantly psychiatric in etiology, as in catatonia. Continue IV ativan at current doses and monitor mental status closely. (4) Dysphagia: Current visit: Yes Status: Acute Multifactorial - both oropharyngeal and esophageal, with at least part of oropharyngeal component thought to be psychogenic/due to being off of psychiatric medications. I am obtaining a CT of the soft tissues of the neck as the patient so persistently points to her throat. Failed several swallowing evaluations. s/p PEG tube - tolerating TF's well. She will need outpatient monometry to evaluate her esophageal dysphagia/dysmotility. s/p EGD on this admission with a nonobstructing Schatzki ring. Reinitiated on abx for suspected aspiration pneumonia. (5) Weakness on right side of face: Current visit: Yes Status: Resolved No evidence for CVA or seizure. Off of anticonvulsants at this time. (6) Esophageal dysmotility: Current visit: Yes Status: Acute As above (7) Hypotension: Current visit: Yes Status: Resolved Initially, hypotension to the point of shock requiring pressors with evidence of end-organ damage with KJ and elevation in Lactate - at this point felt to be due to aspiration pneumonia at the time Finished hydrocortisone taper, but no actual evidence of adrenal insufficiency on admission. Latest BP's in the 90's thought to be secondary to ativan use. Has prn levophed ordered. (8) Bradycardia: Current visit: No Status: Acute Resolved, was seen in setting of hypotension. Avoid jovan agents. ? Tachy/Justin Syndrome. No longer requiring pressors/chronotropes. (9) KJ (acute kidney injury): Current visit: Yes Status: Resolved Cr remains stable - continue to monitor (10) GERD (gastroesophageal reflux disease): Current visit: Yes Status: Chronic Continue PPI 40 mg IV daily (11) Hypomagnesemia: Current visit: Yes Status: Resolved Continue to monitor (12) Hypernatremia: Current visit: Yes Status: Resolved Continue to monitor (13) Hypokalemia: Current visit: Yes Status: Resolved Continue to monitor (14) Discharge planning issues: Current visit: Yes Status: Acute DNR/DNI, s/p PEG (15) DVT prophylaxis: Current visit: Yes Status: Acute Lovenox Subjective Interval history since last seen: Christie remains on IV ativan in the ICU. Her 6 am dose of ativan was held today. She is more interactive/conversant, but not answering every question. Today she tries to explain to me why she keeps pointing to her throat, but pauses after I keep touching my throat because...Because... She denies a sore throat or a sensation of something stuck to it. She is not answering questions about dizziness, chest pain, shortness of breath, nausea, or vomiting. Exam Narrative Exam Narrative: General: in bed, awake, more communicative/makes attempts to explain why she continues to reach for her neck/throat, but not answering other questions I ask her HEENT: EOMI, MMM Heart: RRR, no m/r/g Lungs: ?mildly tachypneic (looks better), diminished breath sounds B GI: abdomen soft; RLQ mass/seroma unchanged; PEG tube site clean, dry, intact Extremities: no e/c/c BLE's; 1+ BLE pedal pulses. Objective Objective Clinical Data: Abnormal lab results 07/27/18 07/27/18 Range/Units 05:32 05:32 RBC 3.35 L (4.00-5.20) m/cumm Hgb 8.4 L (12.0-15.5) g/dL Hct 27.4 L (36.0-46.0) % MCH 25.1 L (27.0-33.0) pg MCHC 30.7 L (32.0-36.0) g/dL RDW 19.1 H (11.7-14.6) % MPV 11.1 H (8.0-11.0) fL Absolute Monocytes 0.98 H (0.11-0.7) k/cumm Glucose 113 H (70-100) mg/dL Vital Signs Temperature 36.5 C 07/27/18 08:16 Temperature Source Temporal Artery Scan 07/27/18 08:16 Pulse 102 H 07/27/18 13:01 Pulse Rhythm Regular 07/21/18 08:20 Pulse 104 H 07/27/18 13:01 Respiratory Rate 31 H 07/27/18 13:01 Respiratory Effort Non-Labored 07/27/18 08:16 Respiratory Depth Normal 07/27/18 08:16 Respiratory Pattern Tachypnea 07/27/18 08:16 Blood Pressure 167/103 H 07/27/18 13:01 Blood Pressure Mean 118 07/27/18 13:01 Blood Pressure Position Supine 07/27/18 08:16 Pulse Oximetry 95 07/27/18 13:01 Respiratory End-tidal CO2 34 07/07/18 15:01 Oxygen Delivery Method Room Air 07/27/18 08:16 Oxygen Flow Rate 0 07/27/18 08:16 Fraction of Inspired Oxygen (FIO2) 28 07/16/18 00:30 Pain Level 0 07/27/18 08:16 Comment 07/21/18 15:40 Intake & Output 07/26/18 07/27/18 07/27/18 23:59 11:59 23:59 Intake Total 30 / 147.5 Output Total 640 / 1150 1350 / 1350 Balance -610 / -1002.5 -1350 / -1350 Weight 104.1 kg Intake: IV 30 / 147.5 Output: Urine 640 / 1140 1350 / 1350 Output, Residual 0 / 10 0 / 0 Other: Urine Color Yellow Yellow Urine Appearance Clear Clear Urine Odor None Comment Indwelling urinary catheter present Bell catheter intact and draining well. Stool Occult Blood Negative Stool Size Moderate Moderate Stool Characteristics Brown Liquid Voiding Methods Indwelling Catheter Laboratory Results WBC 7.27 k/cumm (4.4-10.8) 07/27/18 05:32 RBC 3.35 m/cumm (4.00-5.20) L 07/27/18 05:32 Hgb 8.4 g/dL (12.0-15.5) L 07/27/18 05:32 Hct 27.4 % (36.0-46.0) L 07/27/18 05:32 MCV 81.8 fL (80-95) 07/27/18 05:32 MCH 25.1 pg (27.0-33.0) L 07/27/18 05:32 MCHC 30.7 g/dL (32.0-36.0) L 07/27/18 05:32 RDW 19.1 % (11.7-14.6) H 07/27/18 05:32 Plt Count 316 x1000/uL (130-400) 07/27/18 05:32 MPV 11.1 fL (8.0-11.0) H 07/27/18 05:32 Abs Immat Gran (auto) Cancelled 07/13/18 08:05 Immature Gran % 0.1 07/27/18 05:32 Neutrophils % 61.8 07/27/18 05:32 Band Neutrophils % Cancelled 07/13/18 08:05 Lymphocytes % 17.9 07/27/18 05:32 Atypical Lymphs % Cancelled 07/13/18 08:05 Monocytes % 13.5 07/27/18 05:32 Eosinophils % 6.3 07/27/18 05:32 Basophils % 0.4 07/27/18 05:32 Absolute Neutrophils 4.49 k/cumm (1.2-6.7) 07/27/18 05:32 Absolute Lymphocytes 1.30 k/cumm (1.2-3.4) 07/27/18 05:32 Absolute Monocytes 0.98 k/cumm (0.11-0.7) H 07/27/18 05:32 Absolute Eosinophils 0.46 k/cumm (0.0-0.7) 07/27/18 05:32 Absolute Basophils 0.03 k/cumm (0.0-0.2) 07/27/18 05:32 Metamyelocytes Cancelled 07/13/18 08:05 Myelocytes Cancelled 07/13/18 08:05 Promyelocytes Cancelled 07/13/18 08:05 Nucleated RBCs Cancelled 07/13/18 08:05 Differential Comment Rbc morph reviewed 07/26/18 05:47 Other Cell Type Cancelled 07/13/18 08:05 RBC Morphology See below 07/26/18 05:47 Polychromasia Present 07/17/18 06:35 Hypochromasia 1+ 07/26/18 05:47 Poikilocytosis 1+ 07/17/18 06:35 Basophilic Stippling Cancelled 07/13/18 08:05 Anisocytosis 2+ 07/17/18 06:35 Microcytosis 2+ 07/26/18 05:47 Macrocytosis Cancelled 07/13/18 08:05 Spherocytes Cancelled 07/13/18 08:05 Target Cells Cancelled 07/13/18 08:05 Tear Drop Cells Cancelled 07/13/18 08:05 Ovalocytes 2+ 07/26/18 05:47 Stomatocytes Cancelled 07/13/18 08:05 [place] Bodies Cancelled 07/13/18 08:05 [place] Cells Cancelled 07/13/18 08:05 Acanthocytes (Spur) Cancelled 07/13/18 08:05 Schistocytes 1+ 07/26/18 05:47 D-Dimer 1329 ng/mlFEU (<500) H 07/07/18 21:15 Sodium 142 mmol/L (136-145) 07/27/18 05:32 Potassium 3.6 mmol/L (3.5-5.1) 07/27/18 05:32 Chloride 106 mmol/L (98-107) 07/27/18 05:32 Carbon Dioxide 30.9 mmol/L (21.0-32.0) 07/27/18 05:32 Anion Gap 5.1 mmol/L (3-11) 07/27/18 05:32 BUN 14 mg/dL (7-18) 07/27/18 05:32 Creatinine 0.85 mg/dL (0.55-1.02) 07/27/18 05:32 Estimated GFR/1.73 m2 >= 60.00 (mL/min/1.73m2) 07/27/18 05:32 Glucose 113 mg/dL (70-100) H 07/27/18 05:32 Lactate 1.0 mmol/L (0.6-1.4) 07/06/18 07:20 Calcium 8.6 mg/dL (8.5-10.1) 07/27/18 05:32 Magnesium 1.8 mg/dL (1.8-2.4) 07/27/18 05:32 Iron 20 ug/dL (50-175) L 07/25/18 16:13 TIBC 235 ug/dL (250-450) L 07/25/18 16:13 Transferrin % Sat 9 % (15-50) L 07/25/18 16:13 Ferritin 35 ng/mL (8-388) 07/25/18 16:13 Total Bilirubin 0.3 mg/dL (0.2-1.0) 07/12/18 05:50 Conjugated Bilirubin 0.10 mg/dL (0.00-0.20) 07/12/18 05:50 AST 24 U/L (15-37) 07/12/18 05:50 ALT 47 U/L (12-78) 07/12/18 05:50 Alkaline Phosphatase 65 U/L (46-116) 07/12/18 05:50 Ammonia < 10 umol/L (11-32) L 07/15/18 10:20 Troponin I 0.02 ng/mL (0.00-0.06) 07/08/18 05:00 NT-Pro-B Natriuret Pep 1154 pg/mL (-299) H 07/07/18 21:15 Total Protein 4.6 g/dL (6.4-8.2) L 07/12/18 05:50 Albumin 2.2 g/dL (3.4-5.0) L 07/12/18 05:50 Lipase 252 U/L (73-393) 07/04/18 13:15 Vitamin B12 471 pg/mL (193-986) 07/25/18 16:13 Folate 8.0 ng/mL (8.6-20.0) L 07/25/18 16:13 Procalcitonin <0.10 ng/mL (<or=1.5) 07/08/18 06:24 Calcitonin Cancelled 07/08/18 06:24 TSH 1.09 uIU/mL (0.358-3.74) 07/06/18 07:20 Urine Color Yellow (Yellow) 07/14/18 13:05 Urine Clarity Clear 07/14/18 13:05 Urine pH 5.0 (5-8) 07/14/18 13:05 Ur Specific [place] <= 1.005 (1.005-1.025) 07/14/18 13:05 Urine Protein Negative mg/dL (Negative) 07/14/18 13:05 Urine Ketones Negative mg/dL (Negative) 07/14/18 13:05 Urine Blood Small (Negative) H 07/14/18 13:05 Urine Nitrite Negative (Negative) 07/14/18 13:05 Urine Bilirubin Negative (Negative) 07/14/18 13:05 Urine Urobilinogen 0.2 EU/dL (Up TO 0.2) 07/14/18 13:05 Ur Leukocyte Esterase Negative (Negative) 07/14/18 13:05 Urine RBC 3-5 (0-2) H 07/14/18 13:05 Urine WBC 0-2 HPF (0-5) 07/14/18 13:05 Ur Epithelial Cells Rare HPF (Negative) 07/14/18 13:05 Urine Crystals Rare amorphous HPF (Negative) 07/14/18 13:05 Urine Bacteria Rare HPF (Negative) 07/14/18 13:05 Urine Casts Negative LPF (Negative) 07/14/18 13:05 Urine Mucus Trace (Negative) 07/14/18 13:05 Ur Culture Indicated? C&s done as ordered 07/14/18 13:05 Urine Glucose 100 mg/dL (Negative) 07/14/18 13:05 Stool Campylobacter PCR See comments 07/06/18 12:45 Stool Salmonella PCR See comments 07/06/18 12:45 Stool Shigella PCR See comments 07/06/18 12:45 Vancomycin Trough 18.9 ug/mL (10.0-20.0) 07/20/18 06:17 Shiga Toxin (PCR) See comments 07/06/18 12:45 Path Cons Comment See comment 07/06/18 07:20 Miscellaneous Test Cancelled 07/08/18 06:24 CXR: 1. Probable mild left basilar pneumonia final left heart. 2. Left PICC line tip over the atriocaval junction. (this is a quote of a preliminary CXR read; it is not clear what final left heart means in this context; final read is pending)
[2018-07-27] MEDS: Omnipaque 350 MG/ML 100 ML BTL IJ (14:45)
--- NOTE | 2018-07-27 14:46 | DI.CT_ITS ---
SYMPTOMS/DIAGNOSIS: DYSPHAGIA, ? ABSCESS/MASS CT OF THE NECK: The exam is somewhat limited by patient motion. There is artifact related to dental work. No mass, adenopathy or abscess is seen. Submandibular, parotid and thyroid glands are unremarkable. The lung apices appear clear. There is no paraspinal hematoma. The tip of a catheter is seen in the SVC. IMPRESSION: No acute abnormality. No evidence of abscess or mass.
--- NOTE | 2018-07-27 15:09 | DI.VRAD_ITS ---
EXAM: CT Neck With Contrast EXAM DATE/TIME: 07/27/2018 1:57 PM CLINICAL HISTORY: 63 years old, female; Signs and symptoms; Dysphagia / difficulty swallowing TECHNIQUE: Axial computed tomography images of the neck with intravenous contrast. Coronal and sagittal reformatted images were created and reviewed. COMPARISON: US thyroid 07/10/2018 4:19 PM FINDINGS: Oropharynx: Normal. No significant tonsillar enlargement. Larynx: Normal. Normal epiglottis. Submandibular/Parotid glands: Normal. Glands are normal in size. Thyroid: Normal. No enlarged or calcified nodules. Lymph nodes: Normal. No lymphadenopathy. Lungs: Normal as visualized. Vasculature: No acute findings. Bones/joints: Normal. No acute fracture. Soft tissues: There is a left PICC with the tip in the SVC. IMPRESSION: No acute abnormality. Dictated and Authenticated by: Joy Holliday MD. Ordering:SHEILA Robb MD
[2018-07-27] MEDS: OLANZapine 5 MG TAB 10 MG UD (21:24)
[2018-07-27] MEDS: Donepezil 5 MG TAB 10 MG UD (21:25)
[2018-07-28] VITALS (41 sets, daily range): BP systolic 106–168; BP diastolic 64–114; PULSE 77–118; RESP 17–31; TEMP 36.2–36.7; O2SAT 91–97
[2018-07-28] MEDS: PIPERACILLIN/TAZO 3.375 GM in Normal Saline 50 ML IVPB ×4 (03:23→22:13)
[2018-07-28] MEDS: guaiFENesin/D-METHORPHAN HB 5 ML CUP UD (03:26)
[2018-07-28] MEDS: LORazepam 2 MG/ML VIAL 1 MG IVP ×5 (06:28→22:13)
[2018-07-28] MEDS: Normal Saline Flush 10 ML SYR IVP ×4 (06:37→22:13)
[2018-07-28 07:26] LABS: Abs Immature Grans 0.02 k/cumm (0.0-0.09); Absolute Basophil Count 0.04 k/cumm (0.0-0.2); Absolute Eosinophil Count 0.41 k/cumm (0.0-0.7); Absolute Lymphocyte Count 1.08 k/cumm (1.2-3.4); Absolute Monocyte Count 0.88 k/cumm (0.11-0.7); Absolute Neutrophil Count 3.96 k/cumm (1.2-6.7); Basophils % 0.6; Eosinophils % 6.4; HCT 27.4 % (36.0-46.0); HGB 8.3 g/dL (12.0-15.5); Immature Grans % 0.3; Lymphocytes % 16.9; Mean Corp. HGB Concentration 30.3 g/dL (32.0-36.0); Mean Corpuscular Hemoglobin 24.7 pg (27.0-33.0); Mean Corpuscular Volume 81.5 fL (80-95); Mean Platelet Volume 10.9 fL (8.0-11.0); Monocytes % 13.8; Platelet Count 320 x1000/uL (130-400); RBC 3.36 m/cumm (4.00-5.20); RBC Distribution Width 18.9 % (11.7-14.6); White Blood Cell Count 6.39 k/cumm (4.4-10.8)
[2018-07-28 07:41] LABS: Anion Gap 6.2 mmol/L (3-11); BUN 12 mg/dL (7-18); CO2 30.8 mmol/L (21.0-32.0); CREATININE 0.94 mg/dL (0.55-1.02); Calcium 8.5 mg/dL (8.5-10.1); Chloride 105 mmol/L (98-107); Glucose 118 mg/dL (70-100); Magnesium 1.9 mg/dL (1.8-2.4); Potassium 3.5 mmol/L (3.5-5.1); Sodium 142 mmol/L (136-145)
--- NOTE | 2018-07-28 08:51 | PDOC.CMPRO ---
Care Management Progress Note S/O: Christie presents with marked improvement; speaking in almost full sentences with only lingering catatonia per Dr. Scott. She reported no awareness of catatonic episode to Dr. Scott; please refer to her note for more information. CM will continue to follow; it is likely with continued improvement that Christie and her family may collaborate together for discharge planning considerations with a presumed return home with increased service supports and outpatient follow up for further exploration of esophageal functioning. CM will continue to follow. A: 63 yo disabled female admitted for hypotension, aspiration pneumonia now with a PEG tube placement. P: Discharge disposition undetermined at this time, no change in status today patient remains ICU level of care. Family remains hopeful that Christie can return to baseline and independent level of functioning.. In this event, Christie would require eventual follow up for outpatient manometry per MD. CM will continue to provide support ongoing discharge planning and disposition.
[2018-07-28] MEDS: Normal Saline Flush 10 ML SYR 20 ML IVP ×2 (09:35→19:24)
[2018-07-28] MEDS: Pantoprazole 40 MG VIAL IVP (09:38)
[2018-07-28] MEDS: Loperamide 2 MG CAP UD (09:39)
[2018-07-28] MEDS: Cyanocobalamin 500 MCG TAB 1000 MCG NG (09:39)
[2018-07-28] MEDS: Enoxaparin 40 MG/0.4 ML SYR SC (09:39)
[2018-07-28] MEDS: Methimazole 5 MG TAB 10 MG UD (09:39)
[2018-07-28] MEDS: Folic Acid 1 MG TAB NG (09:39)
[2018-07-28] MEDS: Memantine 5 MG TAB 10 MG UD ×2 (09:39→19:24)
[2018-07-28] MEDS: Nystatin POWDER 60 GM JAR TP ×2 (09:40→19:24)
[2018-07-28] MEDS: Ferrous Sulfate 44 MG/ML Liquid 325 MG NG (10:10)
--- NOTE | 2018-07-28 11:21 | PT.INTREAT ---
Date of service: 07/28/18 Time of Service: 11:21 PT Notes Inpatient Physical Therapy Treatment Note [facility] Date: 07/28/18 PRECAUTIONS: WBAT on R SUBJECTIVE: Christie is agreeable to PT. She expresses that she needs to be cleaned-up and changed by nursing. She also states that she is feeling good today. OBJECTIVE: PAIN: No c/o pain BED MOBILITY/TRANSFERS Rolling L/R: CGA on L Supine-sit: I Sit-supine: I Sit-stand: Mod A Stand-sit: Min A Static standing x2 minutes with Min A. GAIT: Refused THEREX: Patient completed a exercises for UE and LE strengthening while in a supine position, and while seated at EOB, as per flow sheet. ASSESSMENT: Patient was able to perform sit<> stand transfer with min?mod assist today. Patient continues to require consistent cueing for activity initiation. Patient would benefit from continued transfer training and strengthening as well as participating in gait training for improved ability to perform daily functional activities, to return to baseline. PLAN: Continue with PTs POC TREATMENT CODE/TIME: 30 minutes; [id number], [id number]
--- NOTE | 2018-07-28 12:59 | W.PM.PROGNOT ---
Date of Service Date of service: 07/28/18 Time of Service: 12:59 Assessment and Plan (1) Aspiration pneumonia: Current visit: Yes Status: Acute On zosyn D2. Keep NPO. Unclear if this is happening due to aspiration on tube feeding or on respiratory secritions. Repeat CXR pending. (2) Schizophrenia: Current visit: No Status: Chronic with catatonia - treating with IV ativan. Improving (3) Altered mental status: Current visit: Yes Status: Acute At this point felt to be predominantly psychiatric in etiology, as in catatonia. Continue IV ativan at current doses. Improving rapidly. (4) Dysphagia: Current visit: Yes Status: Acute Multifactorial - both oropharyngeal and esophageal, with at least part of oropharyngeal component thought to be psychogenic/due to being off of psychiatric medications. CT soft tissues of the neck was negative for any abnormality Failed several swallowing evaluations - worth considering repeating one now that patient's mental status is better. s/p PEG tube - tolerating TF's well. She will need outpatient monometry to evaluate her esophageal dysphagia/dysmotility. s/p EGD on this admission with a nonobstructing Schatzki ring. (5) Weakness on right side of face: Current visit: Yes Status: Resolved No evidence for CVA or seizure. Off of anticonvulsants at this time. (6) Esophageal dysmotility: Current visit: Yes Status: Acute As above (7) Hypotension: Current visit: Yes Status: Resolved Initially, hypotension to the point of shock requiring pressors with evidence of end-organ damage with KJ and elevation in Lactate - at this point felt to be due to sepsis/shock due to aspiration pneumonia at the time. Finished hydrocortisone taper, but no actual evidence of adrenal insufficiency on admission. Latest BP's in the 90's thought to be secondary to ativan use. Levophed is being d/c'ed. (8) Bradycardia: Current visit: No Status: Acute Resolved, was seen in setting of hypotension. Avoid jovan agents. ? Tachy/Justin Syndrome. No longer requiring pressors/chronotropes. (9) KJ (acute kidney injury): Current visit: Yes Status: Resolved Cr remains stable - continue to monitor (10) GERD (gastroesophageal reflux disease): Current visit: Yes Status: Chronic Continue PPI 40 mg IV daily (11) Hypomagnesemia: Current visit: Yes Status: Resolved Continue to monitor (12) Hypernatremia: Current visit: Yes Status: Resolved Continue to monitor (13) Hypokalemia: Current visit: Yes Status: Resolved Continue to monitor (14) Discharge planning issues: Current visit: Yes Status: Acute DNR/DNI, s/p PEG (15) DVT prophylaxis: Current visit: Yes Status: Acute Lovenox Subjective Interval history since last seen: Ms Gardiner is more interactive and speaking in full sentences today, per nursing. With me, she was napping, easily arousable, denying chest pain, shortness of breath, nausea, vomiting, pain, or any discomfort. Exam Narrative Exam Narrative: General: in bed, asleep - and tachypneic with RR up to 32 when asleep at about 20 degree angle - mildly better when HOB is elevated. Easily arousable, but mildly tachypneic even when awake. She seems to be unaware of this tachypnea. More interactive today, speaking in sentences HEENT: EOMI, MMM Heart: RRR, no m/r/g Lungs: more tachypneic, diminished breath sounds B GI: abdomen soft; RLQ mass/seroma unchanged; PEG tube site clean, dry, intact Extremities: no e/c/c BLE's; 1+ BLE pedal pulses. Objective Objective Clinical Data: Abnormal lab results 07/28/18 07/28/18 Range/Units 06:43 06:43 RBC 3.36 L (4.00-5.20) m/cumm Hgb 8.3 L (12.0-15.5) g/dL Hct 27.4 L (36.0-46.0) % MCH 24.7 L (27.0-33.0) pg MCHC 30.3 L (32.0-36.0) g/dL RDW 18.9 H (11.7-14.6) % Absolute Lymphocytes 1.08 L (1.2-3.4) k/cumm Absolute Monocytes 0.88 H (0.11-0.7) k/cumm Glucose 118 H (70-100) mg/dL CXR ordered, not yet done Vital Signs Temperature 36.5 C 07/28/18 08:45 Temperature Source Tympanic 07/28/18 08:45 Pulse 95 H 07/28/18 12:00 Pulse Rhythm Regular 07/21/18 08:20 Pulse 99 H 07/28/18 12:01 Respiratory Rate 28 H 07/28/18 12:01 Respiratory Effort 07/28/18 08:45 Respiratory Depth Shallow 07/28/18 08:45 Respiratory Pattern Normal 07/28/18 08:45 Blood Pressure 125/89 07/28/18 12:00 Blood Pressure Mean 96 07/28/18 12:00 Blood Pressure Position Sitting 07/28/18 08:45 Pulse Oximetry 95 07/28/18 12:01 Respiratory End-tidal CO2 34 07/07/18 15:01 Oxygen Delivery Method Room Air 07/28/18 08:45 Oxygen Flow Rate 0 07/28/18 08:45 Fraction of Inspired Oxygen (FIO2) 28 07/16/18 00:30 Pain Level 0 07/28/18 08:45 Comment 07/21/18 15:40 Intake & Output 07/27/18 07/28/18 07/28/18 23:59 11:59 23:59 Intake Total 425 / 475 791 / 791 Output Total 615 / 1965 640 / 1015 375 / 1015 Balance -190 / -1490 151 / -224 -375 / -224 Weight 102.4 kg Intake: IV 150 / 200 50 / 50 Intake, Tube Feeding Amount 275 / 275 741 / 741 Output: Urine 600 / 1950 625 / 1000 375 / 1000 Output, Residual 15 / 15 15 / 15 Other: Urine Color Yellow Yellow Yellow Urine Appearance Clear Clear Clear Urine Odor None Comment Bell catheter intact and draining clear yellow urine QS. Bell in place and draining clear yellow urine. Stool Occult Blood Negative Stool Size Large Stool Characteristics Liquid Brown Voiding Methods Indwelling Catheter Laboratory Results WBC 6.39 k/cumm (4.4-10.8) 07/28/18 06:43 RBC 3.36 m/cumm (4.00-5.20) L 07/28/18 06:43 Hgb 8.3 g/dL (12.0-15.5) L 07/28/18 06:43 Hct 27.4 % (36.0-46.0) L 07/28/18 06:43 MCV 81.5 fL (80-95) 07/28/18 06:43 MCH 24.7 pg (27.0-33.0) L 07/28/18 06:43 MCHC 30.3 g/dL (32.0-36.0) L 07/28/18 06:43 RDW 18.9 % (11.7-14.6) H 07/28/18 06:43 Plt Count 320 x1000/uL (130-400) 07/28/18 06:43 MPV 10.9 fL (8.0-11.0) 07/28/18 06:43 Abs Immat Gran (auto) Cancelled 07/13/18 08:05 Immature Gran % 0.3 07/28/18 06:43 Neutrophils % 62.0 07/28/18 06:43 Band Neutrophils % Cancelled 07/13/18 08:05 Lymphocytes % 16.9 07/28/18 06:43 Atypical Lymphs % Cancelled 07/13/18 08:05 Monocytes % 13.8 07/28/18 06:43 Eosinophils % 6.4 07/28/18 06:43 Basophils % 0.6 07/28/18 06:43 Absolute Neutrophils 3.96 k/cumm (1.2-6.7) 07/28/18 06:43 Absolute Lymphocytes 1.08 k/cumm (1.2-3.4) L 07/28/18 06:43 Absolute Monocytes 0.88 k/cumm (0.11-0.7) H 07/28/18 06:43 Absolute Eosinophils 0.41 k/cumm (0.0-0.7) 07/28/18 06:43 Absolute Basophils 0.04 k/cumm (0.0-0.2) 07/28/18 06:43 Metamyelocytes Cancelled 07/13/18 08:05 Myelocytes Cancelled 07/13/18 08:05 Promyelocytes Cancelled 07/13/18 08:05 Nucleated RBCs Cancelled 07/13/18 08:05 Differential Comment Rbc morph reviewed 07/26/18 05:47 Other Cell Type Cancelled 07/13/18 08:05 RBC Morphology See below 07/26/18 05:47 Polychromasia Present 07/17/18 06:35 Hypochromasia 1+ 07/26/18 05:47 Poikilocytosis 1+ 07/17/18 06:35 Basophilic Stippling Cancelled 07/13/18 08:05 Anisocytosis 2+ 07/17/18 06:35 Microcytosis 2+ 07/26/18 05:47 Macrocytosis Cancelled 07/13/18 08:05 Spherocytes Cancelled 07/13/18 08:05 Target Cells Cancelled 07/13/18 08:05 Tear Drop Cells Cancelled 07/13/18 08:05 Ovalocytes 2+ 07/26/18 05:47 Stomatocytes Cancelled 07/13/18 08:05 [place] Bodies Cancelled 07/13/18 08:05 [place] Cells Cancelled 07/13/18 08:05 Acanthocytes (Spur) Cancelled 07/13/18 08:05 Schistocytes 1+ 07/26/18 05:47 D-Dimer 1329 ng/mlFEU (<500) H 07/07/18 21:15 Sodium 142 mmol/L (136-145) 07/28/18 06:43 Potassium 3.5 mmol/L (3.5-5.1) 07/28/18 06:43 Chloride 105 mmol/L (98-107) 07/28/18 06:43 Carbon Dioxide 30.8 mmol/L (21.0-32.0) 07/28/18 06:43 Anion Gap 6.2 mmol/L (3-11) 07/28/18 06:43 BUN 12 mg/dL (7-18) 07/28/18 06:43 Creatinine 0.94 mg/dL (0.55-1.02) 07/28/18 06:43 Estimated GFR/1.73 m2 >= 60.00 (mL/min/1.73m2) 07/28/18 06:43 Glucose 118 mg/dL (70-100) H 07/28/18 06:43 Lactate 1.0 mmol/L (0.6-1.4) 07/06/18 07:20 Calcium 8.5 mg/dL (8.5-10.1) 07/28/18 06:43 Magnesium 1.9 mg/dL (1.8-2.4) 07/28/18 06:43 Iron 20 ug/dL (50-175) L 07/25/18 16:13 TIBC 235 ug/dL (250-450) L 07/25/18 16:13 Transferrin % Sat 9 % (15-50) L 07/25/18 16:13 Ferritin 35 ng/mL (8-388) 07/25/18 16:13 Total Bilirubin 0.3 mg/dL (0.2-1.0) 07/12/18 05:50 Conjugated Bilirubin 0.10 mg/dL (0.00-0.20) 07/12/18 05:50 AST 24 U/L (15-37) 07/12/18 05:50 ALT 47 U/L (12-78) 07/12/18 05:50 Alkaline Phosphatase 65 U/L (46-116) 07/12/18 05:50 Ammonia < 10 umol/L (11-32) L 07/15/18 10:20 Troponin I 0.02 ng/mL (0.00-0.06) 07/08/18 05:00 NT-Pro-B Natriuret Pep 1154 pg/mL (-299) H 07/07/18 21:15 Total Protein 4.6 g/dL (6.4-8.2) L 07/12/18 05:50 Albumin 2.2 g/dL (3.4-5.0) L 07/12/18 05:50 Lipase 252 U/L (73-393) 07/04/18 13:15 Vitamin B12 471 pg/mL (193-986) 07/25/18 16:13 Folate 8.0 ng/mL (8.6-20.0) L 07/25/18 16:13 Procalcitonin <0.10 ng/mL (<or=1.5) 07/08/18 06:24 Calcitonin Cancelled 07/08/18 06:24 TSH 1.09 uIU/mL (0.358-3.74) 07/06/18 07:20 Urine Color Yellow (Yellow) 07/14/18 13:05 Urine Clarity Clear 07/14/18 13:05 Urine pH 5.0 (5-8) 07/14/18 13:05 Ur Specific [place] <= 1.005 (1.005-1.025) 07/14/18 13:05 Urine Protein Negative mg/dL (Negative) 07/14/18 13:05 Urine Ketones Negative mg/dL (Negative) 07/14/18 13:05 Urine Blood Small (Negative) H 07/14/18 13:05 Urine Nitrite Negative (Negative) 07/14/18 13:05 Urine Bilirubin Negative (Negative) 07/14/18 13:05 Urine Urobilinogen 0.2 EU/dL (Up TO 0.2) 07/14/18 13:05 Ur Leukocyte Esterase Negative (Negative) 07/14/18 13:05 Urine RBC 3-5 (0-2) H 07/14/18 13:05 Urine WBC 0-2 HPF (0-5) 07/14/18 13:05 Ur Epithelial Cells Rare HPF (Negative) 07/14/18 13:05 Urine Crystals Rare amorphous HPF (Negative) 07/14/18 13:05 Urine Bacteria Rare HPF (Negative) 07/14/18 13:05 Urine Casts Negative LPF (Negative) 07/14/18 13:05 Urine Mucus Trace (Negative) 07/14/18 13:05 Ur Culture Indicated? C&s done as ordered 07/14/18 13:05 Urine Glucose 100 mg/dL (Negative) 07/14/18 13:05 Stool Campylobacter PCR See comments 07/06/18 12:45 Stool Salmonella PCR See comments 07/06/18 12:45 Stool Shigella PCR See comments 07/06/18 12:45 Vancomycin Trough 18.9 ug/mL (10.0-20.0) 07/20/18 06:17 Shiga Toxin (PCR) See comments 07/06/18 12:45 Path Cons Comment See comment 07/06/18 07:20 Miscellaneous Test Cancelled 07/08/18 06:24
--- NOTE | 2018-07-28 13:30 | DI.RAD_ITS ---
SYMPTOM/DIAGNOSIS: ASPIRATION PNEUMONIA PORTABLE AP CHEST: Comparison is made with 07/25/18. The heart size is normal. There has been no change in the position of the PICC line with the tip in the right atrium. The lungs are again not well inflated. No infiltrates or effusions are seen. IMPRESSION: No acute abnormality.
--- NOTE | 2018-07-28 14:06 | W.PSYCHCONSU ---
History of Present Illness Narrative: Events since initial consultation/last note: Overnight events: Medications: - currently getting ativan IV [id number] Subjective: Per medical team: she is talking in full sentences now, seeming more alert. Patient reports being in no pain. She initially endorsed her sister Tiny coming by today, then paused, then said No she did not come today. She reports not remembering meeting me before or being aware of catatonic symptoms last week, not aware of people trying to interact with her and her being unable to respond. She reports having a PEG tube for feeds but that it doesn't hurt. She reports having a feeling but no pain at the base of her neck. REVIEW OF SYSTEMS: Constitutional: denies any pain or lethargy Musculoskeletal/neuro: denies any stiffness GI: as noted above Psych: see above Physical exam: - no stiffness or cogwheeling in upper extremity joints bilaterally MENTAL STATUS EXAM: Constitutional: sitting up in bed, looking at tv, turns to look at me when I come into the doorway Attitude: cooperative Psychomotor: slowed Speech: slowed with a bit of latency before response, few words, simple sentences, quiet volume and monotone. Still slightly slurred Associations: no looseness Thought process: linear, logical, goal directed, concrete Thought content without psychosis, delusions, obsessions No suicidal or homicidal ideations Hallucinations denied and none observed Mood: unable to say Affect: flat Attention/Concentration: improved from last week, see cognitive testing below Judgment/insight: fair/fair Oriented x 4 Other cognitive testing: spelled WORLD correctly forward, initially refused to spell it backwards but with encouragement to state the last letter, she said, [id number] Stated the season as winter, gave the month as July after looking around me at the calendar on the wall. Accurately stated the scene in the painting on the wall at the foot of her bed as spring and accurately described the activity (fishing). Assessment and Plan (1) Catatonia associated with another mental disorder: Current visit: Yes Status: Acute Christie Gardiner is a 63 year old female with past psychiatric history of schizophrenia and history of catatonia when antipsychotics were stopped, who was admitted to [facility] on 07/04/18 with worsening weakness and found to be hypotensive and thought possibly to have aspiration pneumonia. A dysphagia was discovered and worsened over the course of hospitalization requiring PEG tub placement for feeds and medications. Earlier in this hospital course neurology was consulted to evaluate staring spells (no focal neurological disorder was found), and as dysphagia worsened all psychotropics were stopped (reasonable) but mental status acutely worsened at the same time. Psychiatry consult was requested to help assess altered mental status which did not improve even after olanzapine was restarted. The symptom of catatonia was suspected by history and clinical exam which responded to an ativan challenge. I suspect a mild fluctuating catatonia was present even prior to admission per family report of stereotypic behavior as patient was reporting not feeling well. Worsening of her medical status and acute cessation of olanzapine probably significantly worsened catatonia. Patient has improved on IV ativan with likely a bit of lingering catatonia (delayed response but no longer staring, speaking and understanding more, attention improved, no stereiotypic behaviors) remaining but will need to check with sisters about her baseline. She is at high risk for catatonia relapse if her medical condition worsens. Recommendations: - continue ativan IV [id number]. - continue psychotropic medication particularly olanzapine - treat underlying medical conditions. I will continue to follow her while she is admitted to [facility]. [facility] Medical History Schizophrenia (Chronic) Cognitive developmental delay (Acute) Hypertension (Chronic) Hypothyroidism (Chronic) Social History household members: none current occupational status: disabled Smoking/Tobacco Use Status: Never alcohol intake: never substance use type: does not use additional social history: Lives alone. Results Last Vital Signs Temp 36.2 C L 07/28/18 12:50 Pulse 92 H 07/28/18 12:50 Resp 27 H 07/28/18 12:50 BP 130/83 07/28/18 12:50 Pulse Ox 95 07/28/18 12:50 Labs : 07/28/18 06:43 07/28/18 06:43 Laboratory Results - last 24 hr 07/28/18 07/28/18 06:43 06:43 WBC 6.39 RBC 3.36 L Hgb 8.3 L Hct 27.4 L MCV 81.5 MCH 24.7 L MCHC 30.3 L RDW 18.9 H Plt Count 320 MPV 10.9 Immature Gran % 0.3 Neutrophils % 62.0 Lymphocytes % 16.9 Monocytes % 13.8 Eosinophils % 6.4 Basophils % 0.6 Absolute Neutrophils 3.96 Absolute Lymphocytes 1.08 L Absolute Monocytes 0.88 H Absolute Eosinophils 0.41 Absolute Basophils 0.04 Sodium 142 Potassium 3.5 Chloride 105 Carbon Dioxide 30.8 Anion Gap 6.2 BUN 12 Creatinine 0.94 Estimated GFR/1.73 m2 >= 60.00 Glucose 118 H Calcium 8.5 Magnesium 1.9
--- NOTE | 2018-07-28 15:20 | PT.INNT ---
Date of service: 07/28/18 Time of Service: 15:21 PT Notes 07/28/18 Patient refused afternoon PT session, stating I'm really tired and could we just do it tomorrow? Will attempt to resume PT services tomorrow morning.
[2018-07-28] MEDS: Normal Saline 500 ML 30 ML IV (16:39)
[2018-07-28] MEDS: Donepezil 5 MG TAB 10 MG UD (22:14)
[2018-07-28] MEDS: OLANZapine 5 MG TAB 10 MG UD (22:14)
[2018-07-29] VITALS (26 sets, daily range): BP systolic 107–162; BP diastolic 68–108; PULSE 71–106; RESP 20–32; TEMP 35.8–36.7; O2SAT 93–98
[2018-07-29] MEDS: Normal Saline Flush 10 ML SYR 20 ML IVP ×6 (00:20→21:18)
[2018-07-29] MEDS: LORazepam 2 MG/ML VIAL 1 MG IVP ×6 (02:56→21:18)
[2018-07-29] MEDS: guaiFENesin/D-METHORPHAN HB 5 ML CUP UD (02:57)
[2018-07-29] MEDS: PIPERACILLIN/TAZO 3.375 GM in Normal Saline 50 ML IVPB ×4 (03:11→21:43)
[2018-07-29 07:15] LABS: Abs Immature Grans 0.03 k/cumm (0.0-0.09); Absolute Basophil Count 0.02 k/cumm (0.0-0.2); Absolute Eosinophil Count 0.56 k/cumm (0.0-0.7); Absolute Lymphocyte Count 1.29 k/cumm (1.2-3.4); Absolute Monocyte Count 0.83 k/cumm (0.11-0.7); Absolute Neutrophil Count 4.01 k/cumm (1.2-6.7); Basophils % 0.3; Eosinophils % 8.3; HCT 27.5 % (36.0-46.0); HGB 8.4 g/dL (12.0-15.5); Immature Grans % 0.4; Lymphocytes % 19.1; Mean Corp. HGB Concentration 30.5 g/dL (32.0-36.0); Mean Corpuscular Hemoglobin 24.8 pg (27.0-33.0); Mean Corpuscular Volume 81.1 fL (80-95); Mean Platelet Volume 11.2 fL (8.0-11.0); Monocytes % 12.3; Neutrophils % 59.6; Platelet Count 335 x1000/uL (130-400); RBC 3.39 m/cumm (4.00-5.20); RBC Distribution Width 18.8 % (11.7-14.6); White Blood Cell Count 6.74 k/cumm (4.4-10.8)
[2018-07-29 07:46] LABS: Anion Gap 7.2 mmol/L (3-11); BUN 13 mg/dL (7-18); CO2 30.8 mmol/L (21.0-32.0); CREATININE 0.86 mg/dL (0.55-1.02); Calcium 8.6 mg/dL (8.5-10.1); Chloride 104 mmol/L (98-107); Glucose 115 mg/dL (70-100); Magnesium 1.8 mg/dL (1.8-2.4); Potassium 3.4 mmol/L (3.5-5.1); Sodium 142 mmol/L (136-145)
[2018-07-29] MEDS: Enoxaparin 40 MG/0.4 ML SYR SC (09:05)
[2018-07-29] MEDS: Pantoprazole 40 MG VIAL IVP (09:06)
[2018-07-29] MEDS: Cyanocobalamin 500 MCG TAB 1000 MCG NG (09:08)
[2018-07-29] MEDS: Folic Acid 1 MG TAB NG (09:09)
[2018-07-29] MEDS: Memantine 5 MG TAB 10 MG UD ×2 (09:09→21:17)
[2018-07-29] MEDS: Loperamide 2 MG CAP UD (09:09)
[2018-07-29] MEDS: Methimazole 5 MG TAB UD (09:10)
[2018-07-29] MEDS: Ferrous Sulfate 44 MG/ML Liquid 325 MG NG (09:10)
[2018-07-29] MEDS: Nystatin POWDER 60 GM JAR TP ×2 (09:11→21:19)
[2018-07-29] MEDS: Furosemide 20 MG/2 ML VIAL IVP (11:04)
[2018-07-29] MEDS: Normal Saline Flush 10 ML SYR IVP ×2 (11:05→14:02)
[2018-07-29] MEDS: Potassium Chloride Liquid 20 MEQ PKT 40 MEQ NG ×2 (12:27→18:44)
--- NOTE | 2018-07-29 13:10 | PT.INTREAT ---
Date of service: 07/29/18 Time of Service: 11:30 PT Notes Inpatient Physical Therapy Treatment Note [facility] Date: 07/29/18 PRECAUTIONS: Fall, standard SUBJECTIVE: Christie states that she is willing to get up into standing today. States that her legs are very tired, but she is willing to try OBJECTIVE: PAIN: Denies BED MOBILITY/TRANSFERS Rolling L/R: Min assist Supine-sit: Min assist x2 Sit-supine: Supervision Sit-stand: Mod assist x2 Stand-sit: Mod assist x2 Bed-Chair: Unable Chair-bed: Unable GAIT : Unable. Patient is able to transition to partial standing for 3 repetitions, requiring significant level of assist, as noted above. THEREX: Instructed in both seated and supine activities, as noted on flowsheet ASSESSMENT: Significant fatigue with attempts at weightbearing activity today. Patient is significantly more engaged and responsive during today's session. We will continue attempts at improving tolerance to weightbearing activity. PLAN: Continue per established POC TREATMENT CODE/TIME: 35 minutes (94509, [id number])
--- NOTE | 2018-07-29 13:13 | PTTR_ITS ---
Date of service: 07/29/18 Time of Service: 11:30 PT Notes Inpatient Physical Therapy Treatment Note [facility] Date: 07/29/18 PRECAUTIONS: Fall, standard SUBJECTIVE: Christie states that she is willing to get up into standing today. [place] mansi that her legs are very tired, but she is willing to try OBJECTIVE: PAIN: Denies BED MOBILITY/TRANSFERS Rolling L/R: Min assist Supine-sit: Min assist x2 Sit-supine: Supervision Sit-stand: Mod assist x2 Stand-sit: Mod assist x2 Bed-Chair: Unable Chair-bed: Unable GAIT : Unable. Patient is able to transition to partial standing for 3 repetitions, requiring significant level of assist, as noted above. THEREX: Instructed in both seated and supine activities, as noted on flowsheet ASSESSMENT: Significant fatigue with attempts at weightbearing activity today. Patient is significantly more engaged and responsive during today's session. We will continue attempts at improving tolerance to weightbearing activity. PLAN: Continue per established POC TREATMENT CODE/TIME: 35 minutes ([id number], [id number])
--- NOTE | 2018-07-29 15:01 | PT.INTREAT ---
Date of service: 07/29/18 Time of Service: 15:01 PT Notes Inpatient Physical Therapy Treatment Note [facility] Date: 07/29/18 PRECAUTIONS: Fall SUBJECTIVE: Christie is agreeable to participating in PT, following some encouragement. She expresses that she is concerned about transferring with her PEG tube in place. OBJECTIVE: PAIN: No c/o pain BED MOBILITY/TRANSFERS Supine-sit: Min A x2 Sit-supine: S Sit-stand: Mod A x2 Stand-sit: Mod A x2 GAIT: Unable at this time. THEREX: Patient completed several UE and LE exercises in a supine position, as per flow sheet. Patient completed static standing 4x30 seconds with Mod A x2. Patient continues to require significant cueing for exercise initiation. ASSESSMENT: Patient tolerated session with complaints of increased fatigue. She was able to perform functional sit<>stand transfers with Mod A x2 4x, and was able to maintain static standing position x30 seconds. Patient would benefit from continued transfer training and strengthening. PLAN: Continue with PT's POC TREATMENT CODE/TIME: 30 minutes; [id number], [id number]
--- NOTE | 2018-07-29 15:04 | WOUNDCARE ---
Wound Care Report Pt seen in ICU for follow-up visit. Buttocks and chay are are much improved in regards to redness and rawness. Entire reddened are continues to be blanchable. No bleeding noted. Pt denies pain. MD ordered Clomitrazole 1%/Zinc Oxide/Vitamins A&D TID and PRN, in place of original Zinc recommendation, which has not been applied up to this point according to MAR. Pharmacy contacted and asked to time order so cream will start being applied as ordered. Will follow-up on to see if new Tx plan is improving IAD.
--- NOTE | 2018-07-29 17:28 | PGE_ITS ---
Date of Service Date of service: 07/29/18 Time of Service: 11:45 Assessment and Plan (1) Aspiration pneumonia: Current visit: Yes Status: Acute On zosyn D3. Keep NPO until a repeat swallow eval in am. Unclear if this is happening due to aspiration on tube feeding or on respiratory secretions. Repeat CXR is negative. (2) Schizophrenia: Current visit: No Status: Chronic with catatonia - treating with IV ativan. Improving rapidly. (3) Altered mental status: Current visit: Yes Status: Acute At this point felt to be predominantly psychiatric in etiology, as in catatonia. Continue IV ativan at current doses. Improving rapidly. Consider switch to PO ativan tomorrow. (4) Dysphagia: Current visit: Yes Status: Acute Multifactorial - both oropharyngeal and esophageal, with at least part of oropharyngeal component thought to be psychogenic/due to being off of psychiatric medications. CT soft tissues of the neck was negative for any abnormality Failed several swallowing evaluations - for repeat swallow eval tomorrow. s/p PEG tube - tolerating TF's well. She will need outpatient monometry to evaluate her esophageal dysphagia/dysmotility. s/p EGD on this admission with a nonobstructing Schatzki ring. (5) Weakness on right side of face: Current visit: Yes Status: Resolved No evidence for CVA or seizure. Off of anticonvulsants at this time. (6) Esophageal dysmotility: Current visit: Yes Status: Acute As above (7) Hypotension: Current visit: Yes Status: Resolved Initially, hypotension to the point of shock requiring pressors with evidence of end-organ damage with KJ and elevation in Lactate - at this point felt to be due to sepsis/shock due to aspiration pneumonia at the time. Finished hydrocortisone taper, but no actual evidence of adrenal insufficiency on admission. BP's are actually on the higher side today. (8) Bradycardia: Current visit: No Status: Resolved Resolved, was seen in setting of hypotension. Avoid jovan agents. ? Tachy/Justin Syndrome. No longer requiring pressors/chronotropes. (9) KJ (acute kidney injury): Current visit: Yes Status: Resolved Cr remains stable - continue to monitor (10) GERD (gastroesophageal reflux disease): Current visit: Yes Status: Chronic Continue PPI 40 mg IV daily (11) Hypomagnesemia: Current visit: Yes Status: Resolved Continue to monitor (12) Hypernatremia: Current visit: Yes Status: Resolved Continue to monitor (13) Hypokalemia: Current visit: Yes Status: Resolved Continue to monitor (14) Discharge planning issues: Current visit: Yes Status: Acute DNR/DNI, s/p PEG (15) DVT prophylaxis: Current visit: Yes Status: Acute Lovenox Subjective Interval history since last seen: Ms Gardiner states she is feeling better today. She is not sure she wants to try another swallowing evaluation. She denies dizziness, chest pain, shortness of breath, nausea, vomiting. Nursing reports crackles. Family feels the patient is doing much much better. Exam Narrative Exam Narrative: General: Sitting up in bed, no tachypnea noted; much more conversant HEENT: EOMI, MMM Heart: RRR, no m/r/g Lungs: Diminished breath sounds B GI: abdomen soft; RLQ mass/seroma unchanged; PEG tube site clean, dry, intact Extremities: no e/c/c BLE's; 1+ BLE pedal pulses. Objective Objective Clinical Data: Abnormal lab results 07/29/18 07/29/18 Range/Units 06:20 06:20 RBC 3.39 L (4.00-5.20) m/cumm Hgb 8.4 L (12.0-15.5) g/dL Hct 27.5 L (36.0-46.0) % MCH 24.8 L (27.0-33.0) pg MCHC 30.5 L (32.0-36.0) g/dL RDW 18.8 H (11.7-14.6) % MPV 11.2 H (8.0-11.0) fL Absolute Monocytes 0.83 H (0.11-0.7) k/cumm Potassium 3.4 L (3.5-5.1) mmol/L Glucose 115 H (70-100) mg/dL Vital Signs Temperature 36.7 C 07/29/18 13:24 Temperature Source Temporal Artery Scan 07/29/18 13:24 Pulse 93 H 07/29/18 14:01 Pulse Rhythm Regular 07/21/18 08:20 Pulse 95 H 07/29/18 14:01 Respiratory Rate 22 07/29/18 12:02 Respiratory Effort Non-Labored 07/29/18 13:24 Respiratory Depth Normal 07/29/18 13:24 Respiratory Pattern Normal 07/29/18 13:24 Blood Pressure 162/107 H 07/29/18 14:01 Blood Pressure Mean 121 07/29/18 14:01 Blood Pressure Position Supine 07/29/18 07:56 Pulse Oximetry 96 07/29/18 14:01 Respiratory End-tidal CO2 34 07/07/18 15:01 Oxygen Delivery Method Room Air 07/29/18 13:24 Oxygen Flow Rate 0 07/29/18 13:24 Fraction of Inspired Oxygen (FIO2) 07/16/18 00:30 Pain Level 0 07/29/18 13:24 Comment 07/21/18 15:40 Intake & Output 07/28/18 07/29/18 07/29/18 23:59 11:59 23:59 Intake Total 870 / 1711 477 / 1024 547 / 1024 Output Total 1063 / 1703 850 / 850 Balance -193 / 8 -373 / 174 547 / 174 Weight 101.2 kg Intake: IV 170 / 270 100 / 100 Intake, Tube Feeding Amount 700 / 1441 377 / 924 547 / 924 Output: Urine 1025 / 1650 850 / 850 Output, Residual 38 / 53 Other: Urine Color Pale Yellow Urine Appearance Clear Comment Bell in place and draining clear yellow urine. Indwelling Bell catheter with clear yellow urine in collection bag. Indwelling Bell catheter with clear yellow urine in collection bag. Stool Occult Blood Negative Stool Size Smear Moderate Stool Characteristics Soft Soft Foamy Foamy Brown Laboratory Results WBC 6.74 k/cumm (4.4-10.8) 07/29/18 06:20 RBC 3.39 m/cumm (4.00-5.20) L 07/29/18 06:20 Hgb 8.4 g/dL (12.0-15.5) L 07/29/18 06:20 Hct 27.5 % (36.0-46.0) L 07/29/18 06:20 MCV 81.1 fL (80-95) 07/29/18 06:20 MCH 24.8 pg (27.0-33.0) L 07/29/18 06:20 MCHC 30.5 g/dL (32.0-36.0) L 07/29/18 06:20 RDW 18.8 % (11.7-14.6) H 07/29/18 06:20 Plt Count 335 x1000/uL (130-400) 07/29/18 06:20 MPV 11.2 fL (8.0-11.0) H 07/29/18 06:20 Abs Immat Gran (auto) Cancelled 07/13/18 08:05 Immature Gran % 0.4 07/29/18 06:20 Neutrophils % 59.6 07/29/18 06:20 Band Neutrophils % Cancelled 07/13/18 08:05 Lymphocytes % 19.1 07/29/18 06:20 Atypical Lymphs % Cancelled 07/13/18 08:05 Monocytes % 12.3 07/29/18 06:20 Eosinophils % 8.3 07/29/18 06:20 Basophils % 0.3 07/29/18 06:20 Absolute Neutrophils 4.01 k/cumm (1.2-6.7) 07/29/18 06:20 Absolute Lymphocytes 1.29 k/cumm (1.2-3.4) 07/29/18 06:20 Absolute Monocytes 0.83 k/cumm (0.11-0.7) H 07/29/18 06:20 Absolute Eosinophils 0.56 k/cumm (0.0-0.7) 07/29/18 06:20 Absolute Basophils 0.02 k/cumm (0.0-0.2) 07/29/18 06:20 Metamyelocytes Cancelled 07/13/18 08:05 Myelocytes Cancelled 07/13/18 08:05 Promyelocytes Cancelled 07/13/18 08:05 Nucleated RBCs Cancelled 07/13/18 08:05 Differential Comment Rbc morph reviewed 07/26/18 05:47 Other Cell Type Cancelled 07/13/18 08:05 RBC Morphology See below 07/26/18 05:47 Polychromasia Present 07/17/18 06:35 Hypochromasia 1+ 07/26/18 05:47 Poikilocytosis 1+ 07/17/18 06:35 Basophilic Stippling Cancelled 07/13/18 08:05 Anisocytosis 2+ 07/17/18 06:35 Microcytosis 2+ 07/26/18 05:47 Macrocytosis Cancelled 07/13/18 08:05 Spherocytes Cancelled 07/13/18 08:05 Target Cells Cancelled 07/13/18 08:05 Tear Drop Cells Cancelled 07/13/18 08:05 Ovalocytes 2+ 07/26/18 05:47 Stomatocytes Cancelled 07/13/18 08:05 [place] Bodies Cancelled 07/13/18 08:05 Girma Cells Cancelled 07/13/18 08:05 Acanthocytes (Spur) Cancelled 07/13/18 08:05 Schistocytes 1+ 07/26/18 05:47 D-Dimer 1329 ng/mlFEU (<500) H 07/07/18 21:15 Sodium 142 mmol/L (136-145) 07/29/18 06:20 Potassium 3.4 mmol/L (3.5-5.1) L 07/29/18 06:20 Chloride 104 mmol/L (98-107) 07/29/18 06:20 Carbon Dioxide 30.8 mmol/L (21.0-32.0) 07/29/18 06:20 Anion Gap 7.2 mmol/L (3-11) 07/29/18 06:20 BUN 13 mg/dL (7-18) 07/29/18 06:20 Creatinine 0.86 mg/dL (0.55-1.02) 07/29/18 06:20 Estimated GFR/1.73 m2 >= 60.00 (mL/min/1.73m2) 07/29/18 06:20 Glucose 115 mg/dL (70-100) H 07/29/18 06:20 Lactate 1.0 mmol/L (0.6-1.4) 07/06/18 07:20 Calcium 8.6 mg/dL (8.5-10.1) 07/29/18 06:20 Magnesium 1.8 mg/dL (1.8-2.4) 07/29/18 06:20 Iron 20 ug/dL (50-175) L 07/25/18 16:13 TIBC 235 ug/dL (250-450) L 07/25/18 16:13 Transferrin % Sat 9 % (15-50) L 07/25/18 16:13 Ferritin 35 ng/mL (8-388) 07/25/18 16:13 Total Bilirubin 0.3 mg/dL (0.2-1.0) 07/12/18 05:50 Conjugated Bilirubin 0.10 mg/dL (0.00-0.20) 07/12/18 05:50 AST 24 U/L (15-37) 07/12/18 05:50 ALT 47 U/L (12-78) 07/12/18 05:50 Alkaline Phosphatase 65 U/L (46-116) 07/12/18 05:50 Ammonia < 10 umol/L (11-32) L 07/15/18 10:20 Troponin I 0.02 ng/mL (0.00-0.06) 07/08/18 05:00 NT-Pro-B Natriuret Pep 1154 pg/mL (-299) H 07/07/18 21:15 Total Protein 4.6 g/dL (6.4-8.2) L 07/12/18 05:50 Albumin 2.2 g/dL (3.4-5.0) L 07/12/18 05:50 Lipase 252 U/L (73-393) 07/04/18 13:15 Vitamin B12 471 pg/mL (193-986) 07/25/18 16:13 Folate 8.0 ng/mL (8.6-20.0) L 07/25/18 16:13 Procalcitonin <0.10 ng/mL (<or=1.5) 07/08/18 06:24 Calcitonin Cancelled 07/08/18 06:24 TSH 1.09 uIU/mL (0.358-3.74) 07/06/18 07:20 Urine Color Yellow (Yellow) 07/14/18 13:05 Urine Clarity Clear 07/14/18 13:05 Urine pH 5.0 (5-8) 07/14/18 13:05 Ur Specific [place] <= 1.005 (1.005-1.025) 07/14/18 13:05 Urine Protein Negative mg/dL (Negative) 07/14/18 13:05 Urine Ketones Negative mg/dL (Negative) 07/14/18 13:05 Urine Blood Small (Negative) H 07/14/18 13:05 Urine Nitrite Negative (Negative) 07/14/18 13:05 Urine Bilirubin Negative (Negative) 07/14/18 13:05 Urine Urobilinogen 0.2 EU/dL (Up TO 0.2) 07/14/18 13:05 Ur Leukocyte Esterase Negative (Negative) 07/14/18 13:05 Urine RBC 3-5 (0-2) H 07/14/18 13:05 Urine WBC 0-2 HPF (0-5) 07/14/18 13:05 Ur Epithelial Cells Rare HPF (Negative) 07/14/18 13:05 Urine Crystals Rare amorphous HPF (Negative) 07/14/18 13:05 Urine Bacteria Rare HPF (Negative) 07/14/18 13:05 Urine Casts Negative LPF (Negative) 07/14/18 13:05 Urine Mucus Trace (Negative) 07/14/18 13:05 Ur Culture Indicated? C&s done as ordered 07/14/18 13:05 Urine Glucose 100 mg/dL (Negative) 07/14/18 13:05 Stool Campylobacter PCR See comments 07/06/18 12:45 Stool Salmonella PCR See comments 07/06/18 12:45 Stool Shigella PCR See comments 07/06/18 12:45 Vancomycin Trough 18.9 ug/mL (10.0-20.0) 07/20/18 06:17 Shiga Toxin (PCR) See comments 07/06/18 12:45 Path Cons Comment See comment 07/06/18 07:20 Miscellaneous Test Cancelled 07/08/18 06:24
--- NOTE | 2018-07-29 17:43 | PDOC.CMPRO ---
Care Management Progress Note S/O: Christie was sitting upright in bed when CM met with her. Christie's sister, Tiny was at Christie's bedside. CM provided Emergency Guardianship paperwork; Tiny reported she would only be seeking financial guardianship to pay Christie's bills. Christie continues to slowly clear, and answered CM's questions appropriately. She only provided one or two word sentences and struggled with word finding to describe her NG tube. She reported no discomfort. She made good eye contact and appeared fully alert. CM provided update to Dr. Ramirez via phone as well. CM will continue to follow. A: 63 yo disabled female admitted for hypotension, aspiration pneumonia now with a PEG tube placement. P: Discharge disposition undetermined at this time, no change in status today patient remains ICU level of care. Family remains hopeful that Christie can return to baseline and independent level of functioning.. In this event, Christie would require eventual follow up for outpatient manometry per MD. CM will continue to provide support ongoing discharge planning and disposition.
[2018-07-29] MEDS: OLANZapine 5 MG TAB 10 MG UD (21:17)
[2018-07-29] MEDS: Donepezil 5 MG TAB 10 MG UD (21:17)
[2018-07-29] MEDS: Normal Saline 500 ML 30 ML IV (22:31)
[2018-07-30] VITALS (33 sets, daily range): BP systolic 80–172; BP diastolic 48–115; PULSE 68–104; RESP 15–31; TEMP 35.9–36.9; O2SAT 90–98
[2018-07-30] MEDS: LORazepam 2 MG/ML VIAL 1 MG IVP ×5 (01:44→18:20)
[2018-07-30] MEDS: Normal Saline Flush 10 ML SYR 20 ML IVP ×4 (01:45→20:37)
[2018-07-30] MEDS: PIPERACILLIN/TAZO 3.375 GM in Normal Saline 50 ML IVPB ×4 (04:39→22:31)
[2018-07-30 07:46] LABS: Abs Immature Grans 0.02 k/cumm (0.0-0.09); Absolute Basophil Count 0.04 k/cumm (0.0-0.2); Absolute Eosinophil Count 0.65 k/cumm (0.0-0.7); Absolute Lymphocyte Count 1.53 k/cumm (1.2-3.4); Absolute Monocyte Count 0.74 k/cumm (0.11-0.7); Absolute Neutrophil Count 3.68 k/cumm (1.2-6.7); Basophils % 0.6; Eosinophils % 9.8; HCT 25.5 % (36.0-46.0); HGB 7.6 g/dL (12.0-15.5); Immature Grans % 0.3; Mean Corp. HGB Concentration 29.8 g/dL (32.0-36.0); Mean Corpuscular Hemoglobin 24.6 pg (27.0-33.0); Mean Corpuscular Volume 82.5 fL (80-95); Mean Platelet Volume 11.2 fL (8.0-11.0); Monocytes % 11.1; Neutrophils % 55.2; Platelet Count 300 x1000/uL (130-400); RBC 3.09 m/cumm (4.00-5.20); RBC Distribution Width 18.8 % (11.7-14.6); White Blood Cell Count 6.66 k/cumm (4.4-10.8)
[2018-07-30 07:47] LABS: Anion Gap 3.7 mmol/L (3-11); BUN 13 mg/dL (7-18); CO2 31.3 mmol/L (21.0-32.0); CREATININE 0.85 mg/dL (0.55-1.02); Calcium 8.8 mg/dL (8.5-10.1); Chloride 107 mmol/L (98-107); Glucose 109 mg/dL (70-100); Magnesium 1.9 mg/dL (1.8-2.4); Potassium 3.8 mmol/L (3.5-5.1); Sodium 142 mmol/L (136-145)
[2018-07-30] MEDS: Enoxaparin 40 MG/0.4 ML SYR SC (09:15)
[2018-07-30] MEDS: Ferrous Sulfate 44 MG/ML Liquid 325 MG NG (09:24)
[2018-07-30] MEDS: Methimazole 5 MG TAB 10 MG UD (09:27)
[2018-07-30] MEDS: Memantine 5 MG TAB 10 MG UD ×2 (09:27→20:38)
[2018-07-30] MEDS: Loperamide 2 MG CAP UD (09:27)
[2018-07-30] MEDS: Cyanocobalamin 500 MCG TAB 1000 MCG NG (09:27)
[2018-07-30] MEDS: Pantoprazole 40 MG VIAL IVP (09:27)
[2018-07-30] MEDS: Folic Acid 1 MG TAB NG (09:27)
[2018-07-30] MEDS: Nystatin POWDER 60 GM JAR TP ×2 (09:45→21:37)
[2018-07-30] MEDS: Normal Saline Flush 10 ML SYR IVP ×3 (11:22→18:20)
[2018-07-30] MEDS: Normal Saline 500 ML 30 ML IV (11:23)
--- NOTE | 2018-07-30 11:53 | PT.INTREAT ---
Date of service: 07/30/18 Time of Service: 11:53 PT Notes 07/30/18 SUBJECTIVE: Christie stating her stomach is rumbling. She is agreeable to PT treatment. OBJECTIVE: Pt supine with bed elevated. TRANSFERS: Supine to sit: Min A Sit to supine: Min A x2 Sit to stand: Mod A x2 Stand to sit: Mod A x2 Rolling: Min A GAIT: Device: 4WW Weight bearing: AT Assist: min A x 2 Distance: side step to right x 4 steps. Therex: Stood x2 for at least 1 minute each. She performs light LE strengthening in supine position for UE/LE's. See flow sheet for specifics. ASSESSMENT: Improvement in her sit stand transfers and was able to stand for longer periods of time with improvement in her ability to side step. She continues to be motivated to improve. PLAN: Continue current POC progressing towards established goals. Treatment time: 40 minutes [id number] Alice Howard, PROFESSOR OF NURSING
--- NOTE | 2018-07-30 11:59 | PTTR_ITS ---
Date of service: 07/30/18 Time of Service: 11:53 PT Notes 07/30/18 SUBJECTIVE: Christie stating her stomach is rumbling. She is agreeable to PT treatment. OBJECTIVE: Pt supine with bed elevated. TRANSFERS: Supine to sit: Min A Sit to supine: Min A x2 Sit to stand: Mod A x2 Stand to sit: Mod A x2 Rolling: Min A GAIT: Device: 4WW Weight bearing: AT Assist: min A x 2 Distance: side step to right x 4 steps. Therex: Stood x2 for at least 1 minute each. She performs light LE strengthening in supine position for UE/LE's. See flow sheet for specifics. ASSESSMENT: Improvement in her sit stand transfers and was able to stand for longer periods of time with improvement in her ability to side step. She continues to be motivated to improve. PLAN: Continue current POC progressing towards established goals. Treatment time: 40 minutes [id number], [id number] Alice Howard, LABORATORY ASST
[2018-07-30 14:52] LABS: HCT 29.8 % (36.0-46.0); HGB 8.8 g/dL (12.0-15.5)
--- NOTE | 2018-07-30 16:28 | PDOC.CMPRO ---
- If Service Date Differs Date of service: 07/30/18 Time of Service: 16:28 Care Management Progress Note S/O: Christie was sitting upright in bed when CM met with her. Christie is able to answer questions related to how she is feeling today. She does not ask questions however appears to have appropriate responses to questions. She is alert, her condition appears to have improved per report. Anticipate she will change to acute care this week once she can be transitioned to oral benzodiazepines. Family is not present today during CM visit will provide update when present. Dr. Scott's continues to consult. A: 63 yo disabled female admitted for hypotension, aspiration pneumonia now with a PEG tube placement. P: Discharge disposition undetermined at this time, no change in status today patient remains ICU level of care. Family remains hopeful that Christie can return to baseline and independent level of functioning.. In this event, Christie would require eventual follow up for outpatient manometry per MD. CM will continue to provide support ongoing discharge planning and disposition.
--- NOTE | 2018-07-30 19:04 | PGE_ITS ---
Date of Service Date of service: 07/30/18 Time of Service: 11:30 Assessment and Plan (1) Aspiration pneumonia: Current visit: Yes Status: Acute On zosyn D4. Finish tomorrow. Swallow eval will now happen tomorrow. (2) Schizophrenia: Current visit: No Status: Chronic with catatonia - improved. Transition to PO ativan. Ok to transfer out of ICU. (3) Altered mental status: Current visit: Yes Status: Acute At this point felt to be predominantly psychiatric in etiology, as in catatonia. Resolving. Switching to PO ativan. (4) Dysphagia: Current visit: Yes Status: Acute Multifactorial - both oropharyngeal and esophageal, with at least part of oropharyngeal component thought to be psychogenic/due to being off of psychiatric medications. CT soft tissues of the neck was negative for any abnormality For repeat swallow eval tomorrow. s/p PEG tube - tolerating TF's well. She will need outpatient monometry to evaluate her esophageal dysphagia/dysmotility. s/p EGD on this admission with a nonobstructing Schatzki ring. (5) Weakness on right side of face: Current visit: Yes Status: Resolved No evidence for CVA or seizure. Off of anticonvulsants at this time. (6) Esophageal dysmotility: Current visit: Yes Status: Acute As above (7) Hypotension: Current visit: Yes Status: Resolved Initially, hypotension to the point of shock requiring pressors with evidence of end-organ damage with KJ and elevation in Lactate - at this point felt to be due to sepsis/shock due to aspiration pneumonia at the time. Finished hydrocortisone taper, but no actual evidence of adrenal insufficiency on admission. BP's normalized. (8) Bradycardia: Current visit: No Status: Resolved Resolved, was seen in setting of hypotension. Avoid jovan agents. ? Tachy/Justin Syndrome. No longer requiring pressors/chronotropes. (9) KJ (acute kidney injury): Current visit: Yes Status: Resolved Cr remains stable - continue to monitor (10) GERD (gastroesophageal reflux disease): Current visit: Yes Status: Chronic Continue PPI 40 mg IV daily (11) Hypomagnesemia: Current visit: Yes Status: Resolved Continue to monitor (12) Hypernatremia: Current visit: Yes Status: Resolved Continue to monitor (13) Hypokalemia: Current visit: Yes Status: Resolved Continue to monitor (14) Discharge planning issues: Current visit: Yes Status: Acute DNR/DNI, s/p PEG (15) DVT prophylaxis: Current visit: Yes Status: Acute Lovenox Subjective Interval history since last seen: Ms Gardiner continues to do better. She denies dizziness, chest pain, shortness of breath, nausea, vomiting. Exam Narrative Exam Narrative: General: Sitting up in bed, no tachypnea, conversant, upbeat HEENT: EOMI, MMM Heart: RRR, no m/r/g Lungs: Diminished breath sounds B GI: abdomen soft; RLQ mass/seroma unchanged; PEG tube site clean, dry, intact Extremities: no e/c/c BLE's; 1+ BLE pedal pulses. Objective Objective Clinical Data: Abnormal lab results 07/30/18 07/30/18 07/30/18 Range/Units 06:25 06:25 14:35 RBC 3.09 L (4.00-5.20) m/cumm Hgb 7.6 L 8.8 L (12.0-15.5) g/dL Hct 25.5 L 29.8 L (36.0-46.0) % MCH 24.6 L (27.0-33.0) pg MCHC 29.8 L (32.0-36.0) g/dL RDW 18.8 H (11.7-14.6) % MPV 11.2 H (8.0-11.0) fL Absolute Monocytes 0.74 H (0.11-0.7) k/cumm Glucose 109 H (70-100) mg/dL Vital Signs Temperature 35.9 C L 07/30/18 16:46 Temperature Source Tympanic 07/30/18 16:46 Pulse 92 H 07/30/18 16:46 Pulse Rhythm Regular 07/21/18 08:20 Pulse 94 H 07/30/18 16:43 Respiratory Rate 22 07/30/18 16:46 Respiratory Effort Non-Labored 07/30/18 16:46 Respiratory Depth Normal 07/30/18 16:46 Respiratory Pattern Normal 07/30/18 16:46 Blood Pressure 163/102 H 07/30/18 16:43 Blood Pressure Mean 115 07/30/18 16:43 Blood Pressure Position Supine 07/30/18 16:46 Pulse Oximetry 96 07/30/18 16:46 Respiratory End-tidal CO2 34 07/07/18 15:01 Oxygen Delivery Method Room Air 07/30/18 16:46 Oxygen Flow Rate 0 07/30/18 16:46 Fraction of Inspired Oxygen (FIO2) 28 07/16/18 00:30 Pain Level 0 07/30/18 16:46 Comment 07/21/18 15:40 Intake & Output 07/29/18 07/30/18 07/30/18 23:59 11:59 23:59 Intake Total 1127 / 2104 1251 / 1473 222 / 1473 Output Total 990 / 1840 550 / 550 Balance 137 / 264 1251 / 923 -328 / 923 Weight 102 kg Intake: IV 100 / 700 576 / 656 80 / 656 Oral 0 / 0 0 / 0 Intake, Tube Feeding Amount 1027 / 1404 675 / 817 142 / 817 Output: Urine 950 / 1800 550 / 550 Output, Residual 40 / 40 Other: Urine Color Pale Pale Yellow Yellow Yellow Urine Appearance Clear Clear Clear Comment campbell to gravity with light colored yellow urine Campbell catheter in place and draining yellow urine. Trace protein, pH of 7.5, Sg of 1.015 by chem strip. Campbell catheter in place and draining yellow urine. Stool Occult Blood Negative Negative Stool Size Moderate Small Stool Characteristics Liquid Laboratory Results WBC 6.66 k/cumm (4.4-10.8) 07/30/18 06:25 RBC 3.09 m/cumm (4.00-5.20) L 07/30/18 06:25 Hgb 8.8 g/dL (12.0-15.5) L 07/30/18 14:35 Hct 29.8 % (36.0-46.0) L 07/30/18 14:35 MCV 82.5 fL (80-95) 07/30/18 06:25 MCH 24.6 pg (27.0-33.0) L 07/30/18 06:25 MCHC 29.8 g/dL (32.0-36.0) L 07/30/18 06:25 RDW 18.8 % (11.7-14.6) H 07/30/18 06:25 Plt Count 300 x1000/uL (130-400) 07/30/18 06:25 MPV 11.2 fL (8.0-11.0) H 07/30/18 06:25 Abs Immat Gran (auto) Cancelled 07/13/18 08:05 Immature Gran % 0.3 07/30/18 06:25 Neutrophils % 55.2 07/30/18 06:25 Band Neutrophils % Cancelled 07/13/18 08:05 Lymphocytes % 23.0 07/30/18 06:25 Atypical Lymphs % Cancelled 07/13/18 08:05 Monocytes % 11.1 07/30/18 06:25 Eosinophils % 9.8 07/30/18 06:25 Basophils % 0.6 07/30/18 06:25 Absolute Neutrophils 3.68 k/cumm (1.2-6.7) 07/30/18 06:25 Absolute Lymphocytes 1.53 k/cumm (1.2-3.4) 07/30/18 06:25 Absolute Monocytes 0.74 k/cumm (0.11-0.7) H 07/30/18 06:25 Absolute Eosinophils 0.65 k/cumm (0.0-0.7) 07/30/18 06:25 Absolute Basophils 0.04 k/cumm (0.0-0.2) 07/30/18 06:25 Metamyelocytes Cancelled 07/13/18 08:05 Myelocytes Cancelled 07/13/18 08:05 Promyelocytes Cancelled 07/13/18 08:05 Nucleated RBCs Cancelled 07/13/18 08:05 Differential Comment Rbc morph reviewed 07/26/18 05:47 Other Cell Type Cancelled 07/13/18 08:05 RBC Morphology See below 07/26/18 05:47 Polychromasia Present 07/17/18 06:35 Hypochromasia 1+ 07/26/18 05:47 Poikilocytosis 1+ 07/17/18 06:35 Basophilic Stippling Cancelled 07/13/18 08:05 Anisocytosis 2+ 07/17/18 06:35 Microcytosis 2+ 07/26/18 05:47 Macrocytosis Cancelled 07/13/18 08:05 Spherocytes Cancelled 07/13/18 08:05 Target Cells Cancelled 07/13/18 08:05 Tear Drop Cells Cancelled 07/13/18 08:05 Ovalocytes 2+ 07/26/18 05:47 Stomatocytes Cancelled 07/13/18 08:05 T[place] Bodies Cancelled 07/13/18 08:05 Vilas Cells Cancelled 07/13/18 08:05 Acanthocytes (Spur) Cancelled 07/13/18 08:05 Schistocytes 1+ 07/26/18 05:47 D-Dimer 1329 ng/mlFEU (<500) H 07/07/18 21:15 Sodium 142 mmol/L (136-145) 07/30/18 06:25 Potassium 3.8 mmol/L (3.5-5.1) 07/30/18 06:25 Chloride 107 mmol/L (98-107) 07/30/18 06:25 Carbon Dioxide 31.3 mmol/L (21.0-32.0) 07/30/18 06:25 Anion Gap 3.7 mmol/L (3-11) 07/30/18 06:25 BUN 13 mg/dL (7-18) 07/30/18 06:25 Creatinine 0.85 mg/dL (0.55-1.02) 07/30/18 06:25 Estimated GFR/1.73 m2 >= 60.00 (mL/min/1.73m2) 07/30/18 06:25 Glucose 109 mg/dL (70-100) H 07/30/18 06:25 Lactate 1.0 mmol/L (0.6-1.4) 07/06/18 07:20 Calcium 8.8 mg/dL (8.5-10.1) 07/30/18 06:25 Magnesium 1.9 mg/dL (1.8-2.4) 07/30/18 06:25 Iron 20 ug/dL (50-175) L 07/25/18 16:13 TIBC 235 ug/dL (250-450) L 07/25/18 16:13 Transferrin % Sat 9 % (15-50) L 07/25/18 16:13 Ferritin 35 ng/mL (8-388) 07/25/18 16:13 Total Bilirubin 0.3 mg/dL (0.2-1.0) 07/12/18 05:50 Conjugated Bilirubin 0.10 mg/dL (0.00-0.20) 07/12/18 05:50 AST 24 U/L (15-37) 07/12/18 05:50 ALT 47 U/L (12-78) 07/12/18 05:50 Alkaline Phosphatase 65 U/L (46-116) 07/12/18 05:50 Ammonia < 10 umol/L (11-32) L 07/15/18 10:20 Troponin I 0.02 ng/mL (0.00-0.06) 07/08/18 05:00 NT-Pro-B Natriuret Pep 1154 pg/mL (-299) H 07/07/18 21:15 Total Protein 4.6 g/dL (6.4-8.2) L 07/12/18 05:50 Albumin 2.2 g/dL (3.4-5.0) L 07/12/18 05:50 Lipase 252 U/L (73-393) 07/04/18 13:15 Vitamin B12 471 pg/mL (193-986) 07/25/18 16:13 Folate 8.0 ng/mL (8.6-20.0) L 07/25/18 16:13 Procalcitonin <0.10 ng/mL (<or=1.5) 07/08/18 06:24 Calcitonin Cancelled 07/08/18 06:24 TSH 1.09 uIU/mL (0.358-3.74) 07/06/18 07:20 Urine Color Yellow (Yellow) 07/14/18 13:05 Urine Clarity Clear 07/14/18 13:05 Urine pH 5.0 (5-8) 07/14/18 13:05 Ur Specific [place] <= 1.005 (1.005-1.025) 07/14/18 13:05 Urine Protein Negative mg/dL (Negative) 07/14/18 13:05 Urine Ketones Negative mg/dL (Negative) 07/14/18 13:05 Urine Blood Small (Negative) H 07/14/18 13:05 Urine Nitrite Negative (Negative) 07/14/18 13:05 Urine Bilirubin Negative (Negative) 07/14/18 13:05 Urine Urobilinogen 0.2 EU/dL (Up TO 0.2) 07/14/18 13:05 Ur Leukocyte Esterase Negative (Negative) 07/14/18 13:05 Urine RBC 3-5 (0-2) H 07/14/18 13:05 Urine WBC 0-2 HPF (0-5) 07/14/18 13:05 Ur Epithelial Cells Rare HPF (Negative) 07/14/18 13:05 Urine Crystals Rare amorphous HPF (Negative) 07/14/18 13:05 Urine Bacteria Rare HPF (Negative) 07/14/18 13:05 Urine Casts Negative LPF (Negative) 07/14/18 13:05 Urine Mucus Trace (Negative) 07/14/18 13:05 Ur Culture Indicated? C&s done as ordered 07/14/18 13:05 Urine Glucose 100 mg/dL (Negative) 07/14/18 13:05 Stool Campylobacter PCR See comments 07/06/18 12:45 Stool Salmonella PCR See comments 07/06/18 12:45 Stool Shigella PCR See comments 07/06/18 12:45 Vancomycin Trough 18.9 ug/mL (10.0-20.0) 07/20/18 06:17 Shiga Toxin (PCR) See comments 07/06/18 12:45 Path Cons Comment See comment 07/06/18 07:20 Miscellaneous Test Cancelled 07/08/18 06:24
[2018-07-30] MEDS: OLANZapine 5 MG TAB 10 MG UD (20:38)
[2018-07-30] MEDS: LORazepam 1 MG TAB PO ×2 (20:39→23:28)
[2018-07-30] MEDS: Donepezil 5 MG TAB 10 MG UD (20:39)
[2018-07-31] MEDS: PIPERACILLIN/TAZO 3.375 GM in Normal Saline 50 ML IVPB ×3 (03:38→16:37)
[2018-07-31] MEDS: LORazepam 1 MG TAB PO ×4 (03:38→19:47)
[2018-07-31 04:35] VITALS: BP 115/76; PULSE 75; RESP 24; TEMP 36.6; O2SAT 94
[2018-07-31 06:59] LABS: Abs Immature Grans 0.02 k/cumm (0.0-0.09); Absolute Basophil Count 0.03 k/cumm (0.0-0.2); Absolute Eosinophil Count 0.65 k/cumm (0.0-0.7); Absolute Lymphocyte Count 1.49 k/cumm (1.2-3.4); Absolute Monocyte Count 0.53 k/cumm (0.11-0.7); Absolute Neutrophil Count 4.91 k/cumm (1.2-6.7); Basophils % 0.4; Eosinophils % 8.5; HCT 26.4 % (36.0-46.0); HGB 7.8 g/dL (12.0-15.5); Immature Grans % 0.3; Lymphocytes % 19.5; Mean Corp. HGB Concentration 29.5 g/dL (32.0-36.0); Mean Corpuscular Hemoglobin 24.5 pg (27.0-33.0); Mean Platelet Volume 10.7 fL (8.0-11.0); Monocytes % 6.9; Neutrophils % 64.4; Platelet Count 340 x1000/uL (130-400); RBC 3.18 m/cumm (4.00-5.20); RBC Distribution Width 18.9 % (11.7-14.6); White Blood Cell Count 7.63 k/cumm (4.4-10.8)
[2018-07-31 07:12] LABS: Anion Gap 5.6 mmol/L (3-11); BUN 13 mg/dL (7-18); CO2 30.4 mmol/L (21.0-32.0); CREATININE 0.81 mg/dL (0.55-1.02); Calcium 8.5 mg/dL (8.5-10.1); Chloride 106 mmol/L (98-107); Glucose 117 mg/dL (70-100); Magnesium 1.8 mg/dL (1.8-2.4); Potassium 3.9 mmol/L (3.5-5.1); Sodium 142 mmol/L (136-145)
[2018-07-31 07:25] VITALS: BP 110/75; PULSE 80; RESP 22; TEMP 36.5; O2SAT 94
[2018-07-31] MEDS: Normal Saline 500 ML 30 ML IV (08:17)
--- NOTE | 2018-07-31 09:53 | PDOC.CMPRO ---
Care Management Progress Note S/O: Christie will have a repeat speech consult today to inform next steps. She was lying in bed when CM met with her, alert and engaged with this feature writer. She put on the TV, changed the channels and the volume when asked if she enjoyed watching television. She also reported liking her change in room, now being on the MED/SURG floow. Dr. Scott's continues to consult. CM continues to follow. A: 63 yo disabled female admitted for hypotension, aspiration pneumonia now with a PEG tube placement. P: Discharge disposition undetermined at this time, no change in status today patient remains ICU level of care. Family remains hopeful that Christie can return to baseline and independent level of functioning.. In this event, Christie would require eventual follow up for outpatient manometry per MD. CM will continue to provide support ongoing discharge planning and disposition.
[2018-07-31] MEDS: Methimazole 5 MG TAB UD (11:21)
[2018-07-31] MEDS: Memantine 5 MG TAB 10 MG UD ×2 (11:21→19:48)
[2018-07-31] MEDS: Loperamide 2 MG CAP UD (11:21)
[2018-07-31] MEDS: Cyanocobalamin 500 MCG TAB 1000 MCG NG (11:21)
[2018-07-31] MEDS: Folic Acid 1 MG TAB NG (11:21)
[2018-07-31] MEDS: Ferrous Sulfate 44 MG/ML Liquid 325 MG NG (11:22)
[2018-07-31] MEDS: Pantoprazole 40 MG VIAL IVP (11:24)
[2018-07-31] MEDS: Enoxaparin 40 MG/0.4 ML SYR SC (11:25)
[2018-07-31] MEDS: Normal Saline Flush 10 ML SYR 20 ML IVP ×2 (11:26→20:08)
[2018-07-31] MEDS: Nystatin POWDER 60 GM JAR TP ×2 (11:29→20:06)
[2018-07-31 11:41] VITALS: BP 152/108; PULSE 107; RESP 20; TEMP 36.7; O2SAT 96
--- NOTE | 2018-07-31 12:44 | PT.INPN ---
Date of service: 07/31/18 Time of Service: 12:45 PT Notes Date: 07/31/18 Referring Doctor: Dr. Sigala PT Orders: PT CONSULT: deconditioned, long hospitalization. Not able to ambulate at this time Precautions: fall, standard Treatment Dates: 07/25/18 - 07/31/18 Patient Profile/Admitting Diagnosis: Patient has had a prolonged hospitalization for management of hypotension and schizophrenia. She's participated in PT intervention 1-2x/day for the past 7 days, with a total of 9 sessions. PMHX: cognitive dysfunction; HTN; GERD; schizophrenia; Graves disease; esophageal stricture s/p dilation Social History/Home Situation: Patient lives alone in a single level home. She uses a 4WW at night, and according to family present at time of eval, has been encouarged to use this during the day as well, although with limited compliance. She has a pattern keeper who comes in to help with meals, grocery shopping and housework. She has supportive family in the area, who have been present here at the hospital throughout her stay. Equipment Owned/DME: 4WW Subjective: Christie states that she is ready to work with PT. She denies pain. Objective: General Observation: Resting in bed with multiple lines in place. Patient has a IV lines to LLE, telemetry, PEG tube, and a Bell catheter. Mental Status: Alert. Patient responds appropriately throughout session. Pain: denies ROM: Right Upper Extremity: AROM allows shoulder flexion to 120 degrees. Wrist and elbow motion are WNL. Left Upper Extremity: AROM allows shoulder flexion to 120 degrees. Wrist and elbow motion are WNL. Right Lower Extremity: Hip flexion allows 90 degrees functionally. Knee motion 0-120 bilaterally. Ankle motion allows 0 degrees DF only. Left Lower Extremity: Hip flexion allows 90 degrees functionally. Knee motion 0-120 bilaterally. Ankle motion allows 0 degrees DF only. Strength: Right Upper Extremity: Shoulder flexion 3/5. Biceps 3/5. Left Upper Extremity: Shoulder flexion 3/5. Biceps 3/5. Right Lower Extremity: Patient is functionally able to perform SLR without extension lag. Ankle DF is 3/5 bilat. HS 3/5 bilat. Left Lower Extremity: Patient is functionally able to perform SLR without extension lag. Ankle DF is 3/5 bilat. HS 3/5 bilat. Sensation: intact distally Bed Mobility/Transfers: rolling to side: min A supine-sit: supervision sit-stand: min A x 2 stand-sit: min A x 2 Patient is able to perform partial supine (HOB 30 degrees) to long sit independently. She is able to WB through heels and UEs to scoot up in bed with max cues. Gait: Patient is able to statically stand x 60 seconds with bilat UE support to 4WW and CGx2. She was able to take side steps x 4 on 07/30/18 with min A x 2 and use of 4WW. Balance: Static sitting: Fair Dynamic sitting fair Static standing poor Dynamic standing: Poor Treatment: Today's session consisted of instruction in a therapeutic exercise program in addition to gait and transfer training. Patient received instruction and cuing for scooting up in bed, which she is able to perform to a moderate degree without assistance. She is instructed in supine and seated activities, and completed static sitting times 5 minutes with supervision only to ensure safety with seated activities with speech therapist (non-billable time). Assessment: Patient is a 63 year old female referred to physical therapy services with the diagnosis of deconditioned, long hospitalization. Not able to ambulate at this time. Patient has been participating in skilled PT intervention 1-2 times per day for the past 7 days, with significant improvements in mobility and activity tolerance. Her mental status has significantly improved, and she is now able to follow commands and participate with PT sessions, and has subsequently demonstrated remarkable gains in the past few days. She requires continue PT intervention to maximize mobility and independence to allow for eventual transition back to assisted living. I suspect she will require a stay in either chcf or on swing bed status prior to transition back to her assisted living apartment. Goals: Goals X1 week 1. Supine-Sit : supervision ( met) 2. Sit-Supine : supervision (progressing toward) 3. Sit-Stand : supervision (progressing toward) 4. Stand-Sit : supervision (progressing toward) 5. Bed-Chair : CG with 4WW (progressing toward) 6. Chair-Bed : CG with 4WW(progressing toward) 7. Gait : CG with 4WW x 50' (not met) Plan of Care/Treatment Plan: 1-2x/day, 7 days/week x 1 week. Plan of care has been reviewed with the TUBE REPAIRER providing the service under Physical Therapy direction. Initiate Physical Therapy intervention for strengthening, bed mobility, transfers, gait, stairs, balance training, use of assistive device. DISCHARGE RECOMMENDATIONS: home with family assistance. Will likely require SNF or Swing Bed stay for further rehabilitation once medically stable. TREATMENT CODE/TIME: 35 minutes total, with 30 minutes in skilled care ([id number], [id number])
--- NOTE | 2018-07-31 12:49 | W.SPEECHNOTE ---
Date of service: 07/31/18 Time of Service: 12:30 Speech Therapy Visit Note Note: Attempted to do a swallow eval for this pt as requested by Dr. Barrera. Pt was awake but was unwilling to fully participate, spitting out two trial boluses and saying I don't want to. She had difficulty following contextual 1-step directions. She showed perseverative ideation and comments regarding her PEG tube and required comforting/assurance from her sister. It's felt that the patient is resistant to p. o. intake and so is a poor candidate for a change to p. o. nutrition/hydration/medication at this time. It is likely that she will need to depend on her PEG tube for adequate nutrition.
--- NOTE | 2018-07-31 12:51 | INPN_ITS ---
Date of service: 07/31/18 Time of Service: 12:45 PT Notes Date: 07/31/18 Referring Doctor: Dr. Sigala PT Orders: PT CONSULT: deconditioned, long hospitalization. Not able to ambulate at this time Precautions: fall, standard Treatment Dates: 07/25/18 - 07/31/18 Patient Profile/Admitting Diagnosis: Patient has had a prolonged hospitalization for management of hypotension and schizophrenia. She's participated in PT intervention 1-2x/day for the past 7 days, with a total of 9 sessions. PMHX: cognitive dysfunction; HTN; GERD; schizophrenia; Graves disease; esophageal stricture s/p dilation Social History/Home Situation: Patient lives alone in a single level home. She uses a 4WW at night, and according to family present at time of eval, has been encouarged to use this during the day as well, although with limited compliance. She has a lifter driver who comes in to help with meals, grocery shopping and h ousework. She has supportive family in the area, who have been present here at the hospital throughout her stay. Equipment Owned/DME: 4WW Subjective: Christie states that she is ready to work with PT. She denies pain. Objective: General Observation: Resting in bed with multiple lines in place. Patient has a IV lines to LLE, telemetry, PEG tube, and a Bell catheter. Mental Status: Alert. Patient responds appropriately throughout session. Pain: denies ROM: Right Upper Extremity: AROM allows shoulder flexion to 120 degrees. Wrist and elbow motion are WNL. Left Upper Extremity: AROM allows shoulder flexion to 120 degrees. Wrist and elbow motion are WNL. Right Lower Extremity: Hip flexion allows 90 degrees functionally. Knee motion 0-120 bilaterally. Ankle motion allows 0 degrees DF only. Left Lower Extremity: Hip flexion allows 90 degrees functionally. Knee motion 0- 120 bilaterally. Ankle motion allows 0 degrees DF only. Strength: Right Upper Extremity: Shoulder flexion 3/5. Biceps 3/5. Left Upper Extremity: Shoulder flexion 3/5. Biceps 3/5. Right Lower Extremity: Patient is functionally able to perform SLR without extension lag. Ankle DF is 3/5 bilat. HS 3/5 bilat. Left Lower Extremity: Patient is functionally able to perform SLR without extension lag. Ankle DF is 3/5 bilat. HS 3/5 bilat. Sensation: intact distally Bed Mobility/Transfers: rolling to side: min A supine-sit: supervision sit-stand: min A x 2 stand-sit: min A x 2 Patient is able to perform partial supine (HOB 30 degrees) to long sit independently. She is able to WB through heels and UEs to scoot up in bed with max cues. Gait: Patient is able to statically stand x 60 seconds with bilat UE support to 4WW and CGx2. She was able to take side steps x 4 on 07/30/18 with min A x 2 and use of 4WW. Balance: Static sitting: Fair Dynamic sitting fair Static standing poor Dynamic standing: Poor Treatment: Today's session consisted of instruction in a therapeutic exercise program in addition to gait and transfer training. Patient received instruction and cuing for scooting up in bed, which she is able to perform to a moderate degree without assistance. She is instructed in supine and seated activities, and completed static sitting times 5 minutes with supervision only to ensure safety with seated activities with speech therapist (non-billable time). Assessment: Patient is a 63 year old female referred to physical therapy services with the diagnosis of deconditioned, long hospitalization. Not able to ambulate at this time. Patient has been participating in skilled PT intervention 1-2 times per day for the past 7 days, with significant improvements in mobility and activity tolerance. Her mental status has significantly improved, and she is now able to follow commands and participate with PT sessions, and has subsequently demonstrated remarkable gains in the past few days. She requires continue PT intervention to maximize mobility and independence to allow for eventual transition back to assisted living. I suspect she will require a stay in either alf or on swing bed status prior to transition back to her assisted living apartment. Goals: Goals X1 week 1. Supine-Sit : supervision ( met) 2. Sit-Supine : supervision (progressing toward) 3. Sit-Stand : supervision (progressing toward) 4. Stand-Sit : supervision (progressing toward) 5. Bed-Chair : CG with 4WW (progressing toward) 6. Chair-Bed : CG with 4WW(progressing toward) 7. Gait : CG with 4WW x 50' (not met) Plan of Care/Treatment Plan: 1-2x/day, 7 days/week x 1 week. Plan of care has been reviewed with the DIGITAL MARKETING PROGRAM MANAGER providing the service under Physical Therapy direction. Initiate Physical Therapy intervention for strengthening, bed mobility, transfers, gait, stairs, balance training, use of assistive device. DISCHARGE RECOMMENDATIONS: home with family assistance. Will likely require SNF or Swing Bed stay for further rehabilitation once medically stable. TREATMENT CODE/TIME: 35 minutes total, with 30 minutes in skilled care ([id number])
--- NOTE | 2018-07-31 16:04 | PT.INTREAT ---
Date of service: 07/31/18 Time of Service: 15:00 PT Notes Inpatient Physical Therapy Treatment Note [facility] Date: 07/31/18 PRECAUTIONS:FALL, STANDARD SUBJECTIVE: Christie states that she's agreeable to PT session. OBJECTIVE: PAIN: denies BED MOBILITY/TRANSFERS Supine-sit: Supervision Sit-supine: Supervision Sit-stand: Min assist Stand-sit: Min assist Bed-Chair: Unable GAIT Assistive Device: 4 WW Weight bearing: Full Assist: Min assist Distance: Sidestep x4 Deviation: Max cues for technique and walker management THEREX: Patient completed limited therapeutic exercises, as noted on flowsheet. Treatment: Today's session consisted of gait and transfer training. Patient performed supine to sit transfers x2, and sit to stand transfers x5. She requires max cues for technique throughout. She was able to initiate sidestepping although with reliance on posterior support to bed, with poor intrinsic stability. Deferred on transfer to chair due to continued instability. ASSESSMENT: Entirety of today's session was spent in gait and transfer training. Patient is demonstrating improved independence with transfers, and improve tolerance to weightbearing activities. PLAN: Continue progressing weightbearing activities and close chain strengthening with transition to gait training in upcoming days. TREATMENT CODE/TIME: 25 minutes ([id number])
[2018-07-31] MEDS: Normal Saline Flush 10 ML SYR IVP ×2 (16:35→21:31)
[2018-07-31 17:00] VITALS: BP 155/111; PULSE 99; RESP 24; TEMP 37.2; O2SAT 94
--- NOTE | 2018-07-31 18:16 | W.PM.PROGNOT ---
Date of Service Date of service: 07/31/18 Time of Service: 13:25 Assessment and Plan (1) Aspiration pneumonia: Current visit: Yes Status: Acute On zosyn D5 - finish today. (2) Schizophrenia: Current visit: No Status: Chronic with catatonia - improved. Continue ativan per tube, monitoring mental status. (3) Altered mental status: Current visit: Yes Status: Acute At this point felt to be predominantly psychiatric in etiology, as in catatonia. Resolving. Continue PO ativan. Consider klonopin. (4) Dysphagia: Current visit: Yes Status: Acute Multifactorial - both oropharyngeal and esophageal, with at least part of oropharyngeal component thought to be psychogenic/due to being off of psychiatric medications. CT soft tissues of the neck was negative for any abnormality Failed repeat swallow eval. s/p PEG tube - tolerating TF's well. If the patient is going to be tube-feeding dependent, then the necessity of outpatient monometry is questionable. She is s/p EGD on this admission with a nonobstructing Schatzki ring. (5) Weakness on right side of face: Current visit: Yes Status: Resolved No evidence for CVA or seizure. Off of anticonvulsants at this time. (6) Esophageal dysmotility: Current visit: Yes Status: Acute As above (7) Hypotension: Current visit: Yes Status: Resolved Initially, hypotension to the point of shock requiring pressors with evidence of end-organ damage with KJ and elevation in Lactate - at this point felt to be due to sepsis/shock due to aspiration pneumonia at the time. Finished hydrocortisone taper, but no actual evidence of adrenal insufficiency on admission. BP's normalized. (8) Bradycardia: Current visit: No Status: Resolved Resolved, was seen in setting of hypotension. Avoid jovan agents. ? Tachy/Justin Syndrome. No longer requiring pressors/chronotropes. (9) KJ (acute kidney injury): Current visit: Yes Status: Resolved Cr remains stable - continue to monitor (10) GERD (gastroesophageal reflux disease): Current visit: Yes Status: Chronic Continue PPI 40 mg IV daily (11) Hypomagnesemia: Current visit: Yes Status: Resolved Continue to monitor (12) Hypernatremia: Current visit: Yes Status: Resolved Continue to monitor (13) Hypokalemia: Current visit: Yes Status: Resolved Continue to monitor (14) Discharge planning issues: Current visit: Yes Status: Acute DNR/DNI, s/p PEG (15) DVT prophylaxis: Current visit: Yes Status: Acute Lovenox Subjective Interval history since last seen: Christie failed/did not fully participate with the swallowing evaluation today. She denies dizziness, chest pain, shortness of breath, nausea, vomiting. Exam Narrative Exam Narrative: General: Sitting up in bed, no tachypnea, conversant, upbeat, smiling HEENT: EOMI, MMM Heart: RRR, no m/r/g Lungs: Diminished breath sounds B GI: abdomen soft; RLQ mass/seroma unchanged; PEG tube site clean, dry, intact Extremities: no e/c/c BLE's; 1+ BLE pedal pulses. Objective Objective Clinical Data: Abnormal lab results 07/31/18 07/31/18 Range/Units 06:45 06:45 RBC 3.18 L (4.00-5.20) m/cumm Hgb 7.8 L (12.0-15.5) g/dL Hct 26.4 L (36.0-46.0) % MCH 24.5 L (27.0-33.0) pg MCHC 29.5 L (32.0-36.0) g/dL RDW 18.9 H (11.7-14.6) % Glucose 117 H (70-100) mg/dL Vital Signs Temperature 37.2 C 07/31/18 17:00 Temperature Source Tympanic 07/31/18 17:00 Pulse 99 H 07/31/18 17:00 Pulse Rhythm Regular 07/31/18 16:53 Pulse 94 H 07/30/18 16:43 Respiratory Rate 24 07/31/18 17:00 Respiratory Effort Incrsd Work of Breathing 07/31/18 16:53 Respiratory Depth Deep 07/31/18 16:53 Respiratory Pattern Tachypnea 07/31/18 16:53 Blood Pressure 155/111 H 07/31/18 17:00 Blood Pressure Mean 115 07/30/18 16:43 Blood Pressure Position Supine 07/30/18 16:46 Pulse Oximetry 94 L 07/31/18 17:00 Respiratory End-tidal CO2 34 07/07/18 15:01 Oxygen Delivery Method Room Air 07/31/18 17:00 Oxygen Flow Rate 0 07/31/18 17:00 Fraction of Inspired Oxygen (FIO2) 28 07/16/18 00:30 Pain Level 0 07/31/18 17:00 Comment 07/31/18 04:35 Intake & Output 07/30/18 07/31/18 07/31/18 23:59 11:59 23:59 Intake Total 911 / 2162 925 / 925 Output Total 1452 / 1452 412 / 1022 610 / 1022 Balance -541 / 710 513 / -97 -610 / -97 Weight 100 kg Intake: IV 130 / 706 700 / 700 Oral 0 / 0 Intake, Tube Feeding Amount 781 / 1456 225 / 225 Output: Urine 1450 / 1450 300 / 750 450 / 750 Output, Residual 2 / 2 112 / 272 160 / 272 Other: Urine Color Yellow Yellow Yellow Urine Appearance Clear Clear Clear Urine Odor None Comment Bell catheter in place and draining yellow urine. Stool Occult Blood Negative Negative Stool Size Small Large Stool Characteristics Brown Liquid Brown Voiding Methods Indwelling Catheter Laboratory Results WBC 7.63 k/cumm (4.4-10.8) 07/31/18 06:45 RBC 3.18 m/cumm (4.00-5.20) L 07/31/18 06:45 Hgb 7.8 g/dL (12.0-15.5) L 07/31/18 06:45 Hct 26.4 % (36.0-46.0) L 07/31/18 06:45 MCV 83.0 fL (80-95) 07/31/18 06:45 MCH 24.5 pg (27.0-33.0) L 07/31/18 06:45 MCHC 29.5 g/dL (32.0-36.0) L 07/31/18 06:45 RDW 18.9 % (11.7-14.6) H 07/31/18 06:45 Plt Count 340 x1000/uL (130-400) 07/31/18 06:45 MPV 10.7 fL (8.0-11.0) 07/31/18 06:45 Abs Immat Gran (auto) Cancelled 07/13/18 08:05 Immature Gran % 0.3 07/31/18 06:45 Neutrophils % 64.4 07/31/18 06:45 Band Neutrophils % Cancelled 07/13/18 08:05 Lymphocytes % 19.5 07/31/18 06:45 Atypical Lymphs % Cancelled 07/13/18 08:05 Monocytes % 6.9 07/31/18 06:45 Eosinophils % 8.5 07/31/18 06:45 Basophils % 0.4 07/31/18 06:45 Absolute Neutrophils 4.91 k/cumm (1.2-6.7) 07/31/18 06:45 Absolute Lymphocytes 1.49 k/cumm (1.2-3.4) 07/31/18 06:45 Absolute Monocytes 0.53 k/cumm (0.11-0.7) 07/31/18 06:45 Absolute Eosinophils 0.65 k/cumm (0.0-0.7) 07/31/18 06:45 Absolute Basophils 0.03 k/cumm (0.0-0.2) 07/31/18 06:45 Metamyelocytes Cancelled 07/13/18 08:05 Myelocytes Cancelled 07/13/18 08:05 Promyelocytes Cancelled 07/13/18 08:05 Nucleated RBCs Cancelled 07/13/18 08:05 Differential Comment Rbc morph reviewed 07/26/18 05:47 Other Cell Type Cancelled 07/13/18 08:05 RBC Morphology See below 07/26/18 05:47 Polychromasia Present 07/17/18 06:35 Hypochromasia 1+ 07/26/18 05:47 Poikilocytosis 1+ 07/17/18 06:35 Basophilic Stippling Cancelled 07/13/18 08:05 Anisocytosis 2+ 07/17/18 06:35 Microcytosis 2+ 07/26/18 05:47 Macrocytosis Cancelled 07/13/18 08:05 Spherocytes Cancelled 07/13/18 08:05 Target Cells Cancelled 07/13/18 08:05 Tear Drop Cells Cancelled 07/13/18 08:05 Ovalocytes 2+ 07/26/18 05:47 Stomatocytes Cancelled 07/13/18 08:05 Telles-[place] Bodies Cancelled 07/13/18 08:05 Girma Cells Cancelled 07/13/18 08:05 Acanthocytes (Spur) Cancelled 07/13/18 08:05 Schistocytes 1+ 07/26/18 05:47 D-Dimer 1329 ng/mlFEU (<500) H 07/07/18 21:15 Sodium 142 mmol/L (136-145) 07/31/18 06:45 Potassium 3.9 mmol/L (3.5-5.1) 07/31/18 06:45 Chloride 106 mmol/L (98-107) 07/31/18 06:45 Carbon Dioxide 30.4 mmol/L (21.0-32.0) 07/31/18 06:45 Anion Gap 5.6 mmol/L (3-11) 07/31/18 06:45 BUN 13 mg/dL (7-18) 07/31/18 06:45 Creatinine 0.81 mg/dL (0.55-1.02) 07/31/18 06:45 Estimated GFR/1.73 m2 >= 60.00 (mL/min/1.73m2) 07/31/18 06:45 Glucose 117 mg/dL (70-100) H 07/31/18 06:45 Lactate 1.0 mmol/L (0.6-1.4) 07/06/18 07:20 Calcium 8.5 mg/dL (8.5-10.1) 07/31/18 06:45 Magnesium 1.8 mg/dL (1.8-2.4) 07/31/18 06:45 Iron 20 ug/dL (50-175) L 07/25/18 16:13 TIBC 235 ug/dL (250-450) L 07/25/18 16:13 Transferrin % Sat 9 % (15-50) L 07/25/18 16:13 Ferritin 35 ng/mL (8-388) 07/25/18 16:13 Total Bilirubin 0.3 mg/dL (0.2-1.0) 07/12/18 05:50 Conjugated Bilirubin 0.10 mg/dL (0.00-0.20) 07/12/18 05:50 AST 24 U/L (15-37) 07/12/18 05:50 ALT 47 U/L (12-78) 07/12/18 05:50 Alkaline Phosphatase 65 U/L (46-116) 07/12/18 05:50 Ammonia < 10 umol/L (11-32) L 07/15/18 10:20 Troponin I 0.02 ng/mL (0.00-0.06) 07/08/18 05:00 NT-Pro-B Natriuret Pep 1154 pg/mL (-299) H 07/07/18 21:15 Total Protein 4.6 g/dL (6.4-8.2) L 07/12/18 05:50 Albumin 2.2 g/dL (3.4-5.0) L 07/12/18 05:50 Lipase 252 U/L (73-393) 07/04/18 13:15 Vitamin B12 471 pg/mL (193-986) 07/25/18 16:13 Folate 8.0 ng/mL (8.6-20.0) L 07/25/18 16:13 Procalcitonin <0.10 ng/mL (<or=1.5) 07/08/18 06:24 Calcitonin Cancelled 07/08/18 06:24 TSH 1.09 uIU/mL (0.358-3.74) 07/06/18 07:20 Urine Color Yellow (Yellow) 07/14/18 13:05 Urine Clarity Clear 07/14/18 13:05 Urine pH 5.0 (5-8) 07/14/18 13:05 Ur Specific [place] <= 1.005 (1.005-1.025) 07/14/18 13:05 Urine Protein Negative mg/dL (Negative) 07/14/18 13:05 Urine Ketones Negative mg/dL (Negative) 07/14/18 13:05 Urine Blood Small (Negative) H 07/14/18 13:05 Urine Nitrite Negative (Negative) 07/14/18 13:05 Urine Bilirubin Negative (Negative) 07/14/18 13:05 Urine Urobilinogen 0.2 EU/dL (Up TO 0.2) 07/14/18 13:05 Ur Leukocyte Esterase Negative (Negative) 07/14/18 13:05 Urine RBC 3-5 (0-2) H 07/14/18 13:05 Urine WBC 0-2 HPF (0-5) 07/14/18 13:05 Ur Epithelial Cells Rare HPF (Negative) 07/14/18 13:05 Urine Crystals Rare amorphous HPF (Negative) 07/14/18 13:05 Urine Bacteria Rare HPF (Negative) 07/14/18 13:05 Urine Casts Negative LPF (Negative) 07/14/18 13:05 Urine Mucus Trace (Negative) 07/14/18 13:05 Ur Culture Indicated? C&s done as ordered 07/14/18 13:05 Urine Glucose 100 mg/dL (Negative) 07/14/18 13:05 Stool Campylobacter PCR See comments 07/06/18 12:45 Stool Salmonella PCR See comments 07/06/18 12:45 Stool Shigella PCR See comments 07/06/18 12:45 Vancomycin Trough 18.9 ug/mL (10.0-20.0) 07/20/18 06:17 Shiga Toxin (PCR) See comments 07/06/18 12:45 Path Cons Comment See comment 07/06/18 07:20 Miscellaneous Test Cancelled 07/08/18 06:24
[2018-07-31 18:57] VITALS: BP 164/120; PULSE 102; RESP 28; TEMP 37.5; O2SAT 94
--- NOTE | 2018-07-31 19:27 | DI.RAD_ITS ---
SYMPTOM/DIAGNOSIS: DYSPNEA PORTABLE AP CHEST at 1927 hours: The heart is not enlarged. There is a PICC line in position on the left, the tip of which appears to lie in the superior vena cava. Lungs are grossly clear. Slight pleurla blunting noted on the right, small right pleural effusion not excluded. PA and lateral chest may be obtained for further evaluation if clinically indicated. CONCLUSION: No evidence of acute change.
[2018-07-31 19:47] VITALS: PULSE 102; RESP 2; RESP 28; O2SAT 94
[2018-07-31] MEDS: Albuterol/Ipratropium 3 ML UPD VIAL UPD (19:47)
[2018-07-31 20:24] LABS: NT-proBNP 744 pg/mL
--- NOTE | 2018-07-31 21:21 | PGE_ITS ---
Date of Service Date of service: 07/31/18 Time of Service: 21:06 Assessment and Plan (1) Dyspnea: Current visit: No Status: Acute clinically this does not appear to be pneumonia although with her dysphagia she certainly is at risk of aspiration of her secretions. There has been no observed emesis of tube feedings. Clinically I think that she has some bronchospastic component that responded to aerosolized bronchodilators and therefore I am going to keep her on scheduled aerosol treatments for tonight. I am also giving her some iv lasix as she appears to be slightly volume overloaded although her echocardiogram from 07/08 demonstrated normal LV function. I took a brief look at her heart on US in PLAX view and she seemed to have vigorous LV function. I gave her some supplemental KCl in light of giving her lasix. She has repeat BMP and magnesium levels for a.m. As she had no ischemic ST-T changes and had no CP I did not proceed w/ troponin levels. I will repeat her BNP in the a.m. however to assess her responsiveness to the lasix. She has been anemic but stable the past few days, I did not repeat this tonight as she showed no signs of bleeding. If she were to become hypotensive then I would check stat hemogram. Qualifiers: Dyspnea type: shortness of breath Qualified Code(s): R06.02 - Shortness of breath; R06.00 - Dyspnea, unspecified; R06.01 - Orthopnea Subjective Patient reports: shortness of breath Interval history since last seen: Patient w/ progressive increase in her HR and BP throughout the afternoon and tonight was tachypneic w/ increased wheezing. I ordered stat aerosol treatments and PCXR in light of her hx of aspiration pneumonia. She just finished 5 d course of Zosyn today. She has no fevers. I also ordered stat EKG and BNP. Her EKG demonstrated sinus tachycardia at 103 [address]pm with no ischemic [address]-T changes. Her pro-BNP was elevated at 744 and her CXR did not reveal any infiltrates and is unchanged compared to her prior CXR on 07/28 which was read as no acute abnormalities (specifically no infiltrates or efusions and normal heart size). I performed a quick bedside U.S. of her lungs and found a few B lines at the bases but no effusion. I reviewed her I/O's and her cumulative is 4.4 liters over the course of her admission and in the past 3 days she is positive by 1900 mL. Her dyspnea improved and her wheezing improved w/ DuoNeb but in light of her elevated BNP and rales on exam and US findings I decided to give her a dose of lasix. Exam Const General: cooperative, anxious and not diaphoretic Nutritional Appearance: obese Orientation: alert, awake and oriented to person Neck Neck: normal visual inspection, full ROM and no JVD Carotids: normal carotid upstroke Resp Effort & Inspection: able to speak in complete sentences, not labored and tachypneic Auscultation: crackles bilaterally at the base, no rhonchi and no wheezes Cardio Jugular venous pressure: no JVD Palpation: normal PMI Rate: tachycardic Rhythm: regular rhythm Extrem General: pedal edema bilaterally Objective Objective Clinical Data: Abnormal lab results 07/31/18 07/31/18 07/31/18 Range/Units 06:45 06:45 19:52 RBC 3.18 L (4.00-5.20) m/cumm Hgb 7.8 L (12.0-15.5) g/dL Hct 26.4 L (36.0-46.0) % MCH 24.5 L (27.0-33.0) pg MCHC 29.5 L (32.0-36.0) g/dL RDW 18.9 H (11.7-14.6) % Glucose 117 H (70-100) mg/dL NT-Pro-B Natriuret Pep 744 H ( - 299) pg/mL Vital Signs Temperature 37.5 C 07/31/18 18:57 Temperature Source Tympanic 07/31/18 18:57 Pulse 102 H 07/31/18 19:47 Pulse Rhythm Regular 07/31/18 16:53 Pulse 94 H 07/30/18 16:43 Respiratory Rate 28 H 07/31/18 19:47 Respiratory Effort Incrsd Work of Breathing 07/31/18 16:53 Respiratory Depth Deep 07/31/18 16:53 Respiratory Pattern Tachypnea 07/31/18 16:53 Blood Pressure 164/120 H 07/31/18 18:57 Blood Pressure Mean 115 07/30/18 16:43 Blood Pressure Position Supine 07/30/18 16:46 Pulse Oximetry 94 L 07/31/18 19:47 Respiratory End-tidal CO2 34 07/07/18 15:01 Oxygen Delivery Method Room Air 07/31/18 19:47 Oxygen Flow Rate 0 07/31/18 19:47 Fraction of Inspired Oxygen (FIO2) 28 07/16/18 00:30 Pain Level 0 07/31/18 17:00 Comment 07/31/18 04:35 Intake & Output 07/30/18 07/31/18 07/31/18 23:59 11:59 23:59 Intake Total / 2162 925 / 1970 1045 / 1970 Output Total 1452 / 1452 412 / 1022 610 / 1022 Balance -541 / 710 513 / 948 435 / 948 Weight 100 kg Intake: IV 130 / 706 700 / 760 60 / 760 Oral 0 / 0 Intake, Tube Feeding Amount 781 / 1456 225 / 1210 985 / 1210 Output: Urine 1450 / 1450 300 / 750 450 / 750 Output, Residual 2 / 2 112 / 272 160 / 272 Other: Urine Color Yellow Yellow Yellow Urine Appearance Clear Clear Clear Urine Odor None Comment Bell catheter in place and draining yellow urine. Stool Occult Blood Negative Negative Stool Size Small Large Smear Stool Characteristics Brown Liquid Brown Brown Voiding Methods Indwelling Catheter Laboratory Results WBC 7.63 k/cumm (4.4-10.8) 07/31/18 06:45 RBC 3.18 m/cumm (4.00-5.20) L 07/31/18 06:45 Hgb 7.8 g/dL (12.0-15.5) L 07/31/18 06:45 Hct 26.4 % (36.0-46.0) L 07/31/18 06:45 MCV 83.0 fL (80-95) 07/31/18 06:45 MCH 24.5 pg (27.0-33.0) L 07/31/18 06:45 MCHC 29.5 g/dL (32.0-36.0) L 07/31/18 06:45 RDW 18.9 % (11.7-14.6) H 07/31/18 06:45 Plt Count 340 x1000/uL (130-400) 07/31/18 06:45 MPV 10.7 fL (8.0-11.0) 07/31/18 06:45 Abs Immat Gran (auto) Cancelled 07/13/18 08:05 Immature Gran % 0.3 07/31/18 06:45 Neutrophils % 64.4 07/31/18 06:45 Band Neutrophils % Cancelled 07/13/18 08:05 Lymphocytes % 19.5 07/31/18 06:45 Atypical Lymphs % Cancelled 07/13/18 08:05 Monocytes % 6.9 07/31/18 06:45 Eosinophils % 8.5 07/31/18 06:45 Basophils % 0.4 07/31/18 06:45 Absolute Neutrophils 4.91 k/cumm (1.2-6.7) 07/31/18 06:45 Absolute Lymphocytes 1.49 k/cumm (1.2-3.4) 07/31/18 06:45 Absolute Monocytes 0.53 k/cumm (0.11-0.7) 07/31/18 06:45 Absolute Eosinophils 0.65 k/cumm (0.0-0.7) 07/31/18 06:45 Absolute Basophils 0.03 k/cumm (0.0-0.2) 07/31/18 06:45 Metamyelocytes Cancelled 07/13/18 08:05 Myelocytes Cancelled 07/13/18 08:05 Promyelocytes Cancelled 07/13/18 08:05 Nucleated RBCs Cancelled 07/13/18 08:05 Differential Comment Rbc morph reviewed 07/26/18 05:47 Other Cell Type Cancelled 07/13/18 08:05 RBC Morphology See below 07/26/18 05:47 Polychromasia Present 07/17/18 06:35 Hypochromasia 1+ 07/26/18 05:47 Poikilocytosis 1+ 07/17/18 06:35 Basophilic Stippling Cancelled 07/13/18 08:05 Anisocytosis 2+ 07/17/18 06:35 Microcytosis 2+ 07/26/18 05:47 Macrocytosis Cancelled 07/13/18 08:05 Spherocytes Cancelled 07/13/18 08:05 Target Cells Cancelled 07/13/18 08:05 Tear Drop Cells Cancelled 07/13/18 08:05 Ovalocytes 2+ 07/26/18 05:47 Stomatocytes Cancelled 07/13/18 08:05 [place] Bodies Cancelled 07/13/18 08:05 [place] Cells Cancelled 07/13/18 08:05 Acanthocytes (Spur) Cancelled 07/13/18 08:05 Schistocytes 1+ 07/26/18 05:47 D-Dimer 1329 ng/mlFEU (<500) H 07/07/18 21:15 Sodium 142 mmol/L (136-145) 07/31/18 06:45 Potassium 3.9 mmol/L (3.5-5.1) 07/31/18 06:45 Chloride 106 mmol/L (98-107) 07/31/18 06:45 Carbon Dioxide 30.4 mmol/L (21.0-32.0) 07/31/18 06:45 Anion Gap 5.6 mmol/L (3-11) 07/31/18 06:45 BUN 13 mg/dL (7-18) 07/31/18 06:45 Creatinine 0.81 mg/dL (0.55-1.02) 07/31/18 06:45 Estimated GFR/1.73 m2 >= 60.00 (mL/min/1.73m2) 07/31/18 06:45 Glucose 117 mg/dL (70-100) H 07/31/18 06:45 Lactate 1.0 mmol/L (0.6-1.4) 07/06/18 07:20 Calcium 8.5 mg/dL (8.5-10.1) 07/31/18 06:45 Magnesium 1.8 mg/dL (1.8-2.4) 07/31/18 06:45 Iron 20 ug/dL (50-175) L 07/25/18 16:13 TIBC 235 ug/dL (250-450) L 07/25/18 16:13 Transferrin % Sat 9 % (15-50) L 07/25/18 16:13 Ferritin 35 ng/mL (8-388) 07/25/18 16:13 Total Bilirubin 0.3 mg/dL (0.2-1.0) 07/12/18 05:50 Conjugated Bilirubin 0.10 mg/dL (0.00-0.20) 07/12/18 05:50 AST 24 U/L (15-37) 07/12/18 05:50 ALT 47 U/L (12-78) 07/12/18 05:50 Alkaline Phosphatase 65 U/L (46-116) 07/12/18 05:50 Ammonia < 10 umol/L (11-32) L 07/15/18 10:20 Troponin I 0.02 ng/mL (0.00-0.06) 07/08/18 05:00 NT-Pro-B Natriuret Pep 744 pg/mL (-299) H 07/31/18 19:52 Total Protein 4.6 g/dL (6.4-8.2) L 07/12/18 05:50 Albumin 2.2 g/dL (3.4-5.0) L 07/12/18 05:50 Lipase 252 U/L (73-393) 07/04/18 13:15 Vitamin B12 471 pg/mL (193-986) 07/25/18 16:13 Folate 8.0 ng/mL (8.6-20.0) L 07/25/18 16:13 Procalcitonin <0.10 ng/mL (<or=1.5) 07/08/18 06:24 Calcitonin Cancelled 07/08/18 06:24 TSH 1.09 uIU/mL (0.358-3.74) 07/06/18 07:20 Urine Color Yellow (Yellow) 07/14/18 13:05 Urine Clarity Clear 07/14/18 13:05 Urine pH 5.0 (5-8) 07/14/18 13:05 Ur Specific [place] <= 1.005 (1.005-1.025) 07/14/18 13:05 Urine Protein Negative mg/dL (Negative) 07/14/18 13:05 Urine Ketones Negative mg/dL (Negative) 07/14/18 13:05 Urine Blood Small (Negative) H 07/14/18 13:05 Urine Nitrite Negative (Negative) 07/14/18 13:05 Urine Bilirubin Negative (Negative) 07/14/18 13:05 Urine Urobilinogen 0.2 EU/dL (Up TO 0.2) 07/14/18 13:05 Ur Leukocyte Esterase Negative (Negative) 07/14/18 13:05 Urine RBC 3-5 (0-2) H 07/14/18 13:05 Urine WBC 0-2 HPF (0-5) 07/14/18 13:05 Ur Epithelial Cells Rare HPF (Negative) 07/14/18 13:05 Urine Crystals Rare amorphous HPF (Negative) 07/14/18 13:05 Urine Bacteria Rare HPF (Negative) 07/14/18 13:05 Urine Casts Negative LPF (Negative) 07/14/18 13:05 Urine Mucus Trace (Negative) 07/14/18 13:05 Ur Culture Indicated? C&s done as ordered 07/14/18 13:05 Urine Glucose 100 mg/dL (Negative) 07/14/18 13:05 Stool Campylobacter PCR See comments 07/06/18 12:45 Stool Salmonella PCR See comments 07/06/18 12:45 Stool Shigella PCR See comments 07/06/18 12:45 Vancomycin Trough 18.9 ug/mL (10.0-20.0) 07/20/18 06:17 Shiga Toxin (PCR) See comments 07/06/18 12:45 Path Cons Comment See comment 07/06/18 07:20 Miscellaneous Test Cancelled 07/08/18 06:24 Reviewed Pertinent PMH: Yes
[2018-07-31] MEDS: Furosemide 40 MG/4 ML VIAL IVP (21:30)
--- NOTE | 2018-07-31 21:34 | DI.VRAD_ITS ---
EXAM: XR Chest, 1 View EXAM DATE/TIME: 07/31/2018 7:35 PM CLINICAL HISTORY: 63 years old, female; Signs and symptoms; Dyspnea TECHNIQUE: XR of the chest, 1 view. COMPARISON: CR XR PORTABLE CHEST AP 07/28/2018 1:20 PM FINDINGS: Tubes, catheters and devices: Left upper extremity PICC is noted terminating in the lower SVC. Lungs: Lung volumes are adequate. Mild atelectasis is noted in the lung bases. No focal consolidation is seen. Pleural space: Subtle veil-like density projecting over the right lung base, which may be indicative of a posteriorly layering small pleural effusion. There is no pneumothorax. Heart/Mediastinum: Heart size is within normal limits. Thoracic aorta appears mildly tortuous. Bones/joints: Unremarkable. IMPRESSION: Mild bibasilar atelectasis and findings suggestive of a small posteriorly layering right-sided pleural effusion. Dictated and Authenticated by: Aguila Peace MD. Ordering:[facility] Trevor Sanz MD
[2018-07-31] MEDS: Donepezil 5 MG TAB 10 MG UD (21:41)
[2018-07-31] MEDS: Potassium Chloride Liquid 20 MEQ PKT NG (21:41)
[2018-07-31] MEDS: OLANZapine 5 MG TAB 10 MG UD (21:42)
[2018-08-01] VITALS (7 sets, daily range): BP systolic 104–165; BP diastolic 68–109; PULSE 88–107; RESP 20–22; TEMP 36.2–37.4; O2SAT 90–97
[2018-08-01] MEDS: Albuterol/Ipratropium 3 ML UPD VIAL UPD ×2 (00:43→04:59)
[2018-08-01] MEDS: LORazepam 1 MG TAB PO ×7 (00:44→23:09)
[2018-08-01 07:31] LABS: Abs Immature Grans 0.03 k/cumm (0.0-0.09); Absolute Basophil Count 0.05 k/cumm (0.0-0.2); Absolute Eosinophil Count 0.58 k/cumm (0.0-0.7); Absolute Lymphocyte Count 1.69 k/cumm (1.2-3.4); Absolute Monocyte Count 0.66 k/cumm (0.11-0.7); Absolute Neutrophil Count 5.43 k/cumm (1.2-6.7); Basophils % 0.6; Eosinophils % 6.9; HCT 28.1 % (36.0-46.0); HGB 8.4 g/dL (12.0-15.5); Immature Grans % 0.4; Mean Corp. HGB Concentration 29.9 g/dL (32.0-36.0); Mean Corpuscular Hemoglobin 24.5 pg (27.0-33.0); Mean Corpuscular Volume 81.9 fL (80-95); Monocytes % 7.8; Neutrophils % 64.3; Platelet Count 386 x1000/uL (130-400); RBC 3.43 m/cumm (4.00-5.20); White Blood Cell Count 8.44 k/cumm (4.4-10.8)
[2018-08-01 07:42] LABS: Anion Gap 8.9 mmol/L (3-11); BUN 13 mg/dL (7-18); CO2 30.1 mmol/L (21.0-32.0); CREATININE 0.87 mg/dL (0.55-1.02); Calcium 8.9 mg/dL (8.5-10.1); Chloride 105 mmol/L (98-107); Glucose 116 mg/dL (70-100); Magnesium 1.8 mg/dL (1.8-2.4); Potassium 3.6 mmol/L (3.5-5.1); Sodium 144 mmol/L (136-145)
[2018-08-01] MEDS: Normal Saline Flush 10 ML SYR IVP ×2 (08:59→21:43)
[2018-08-01] MEDS: Enoxaparin 40 MG/0.4 ML SYR SC (09:00)
[2018-08-01] MEDS: Memantine 5 MG TAB 10 MG UD ×2 (09:01→20:06)
[2018-08-01] MEDS: Methimazole 5 MG TAB 10 MG UD (09:01)
[2018-08-01] MEDS: Loperamide 2 MG CAP UD (09:01)
[2018-08-01] MEDS: Cyanocobalamin 500 MCG TAB 1000 MCG NG (09:01)
[2018-08-01] MEDS: Folic Acid 1 MG TAB NG (09:01)
[2018-08-01] MEDS: Nystatin POWDER 60 GM JAR TP ×2 (09:02→20:25)
[2018-08-01] MEDS: Ferrous Sulfate 44 MG/ML Liquid 325 MG NG (09:02)
[2018-08-01] MEDS: Pantoprazole 40 MG VIAL IVP (09:03)
[2018-08-01] MEDS: Normal Saline Flush 10 ML SYR 20 ML IVP ×2 (09:04→20:07)
--- NOTE | 2018-08-01 12:25 | W.NUTRFU ---
Date of service: 08/01/18 Time of Service: 12:25 Nutritional Follow up NOTE: Nutrition consult to reassess tube feeding: Ms. Gardiner is receiving 65 ml/hr continuously of Jevity 1.2 micki. She has minimal residuals on most days and her weight has been relatively stable. She is currently 97 kg. BMI 33.5 kg/m2 consistent with class 1 obesity. Her latest BMP was WNL except for glucose which was 116, which is not actually out of range considering she gets continuous feeds. Her normal BUN, creatinine, GFR suggest that she is getting adequate free water. The Banatrol should be available later today or by tomorrow morning, to help thicken up and possible reduce her stool output. As Ms. Gardiner is becoming more alert and as she may not want to be hooked up to her feeding around the clock moving forward, we could start working towards cycling the feeding overnight so that she has free time during day, if so desired. I would recommend first decreasing her feeding by 4 hours, then 8, then 12 if she is able to tolerate the increased rate with the decreased hours. For example, start with 78 ml/hr of Jevity 1.2 micki x 20 hours daily. If tolerated, increase to 98 ml/hr x 16 hours daily. If tolerated, increase to 130 ml/hr x 12 hours daily. If she does not tolerate the high rate, even some hours off the feeding during the day may be pleasurable to her in the future. Thank you for the consult. Time Spent in Nutritional Counseling and Treatment: BERNABE
[2018-08-01] MEDS: Potassium Chloride Liquid 20 MEQ PKT 40 MEQ NG (12:36)
--- NOTE | 2018-08-01 15:39 | PT.INTREAT ---
Date of service: 08/01/18 Time of Service: 15:39 PT Notes Inpatient Physical Therapy Treatment Note [facility] Date: 08/01/18 PRECAUTIONS: Fall SUBJECTIVE: Christie states that she is feeling good today. OBJECTIVE: PAIN: No c/o pain BED MOBILITY/TRANSFERS Rolling: Min A Supine-sit: S Sit-supine: S Sit-stand: Min A-CGA in a.m.; Min A in p.m. Stand-sit: Min A-CGA in a.m.; Min A in p.m. Transfer training with STEDY in afternoon. Performed sit<>stand transfer x1, static standing x30 seconds with cueing for upright posture. GAIT Assistive Device: 4WW Weight bearing: WBAT on R Assist: Min A Distance: 4 side steps in both a.m. and p.m. Deviation: Buckling noted on L knee with attempt at forward step Static standing x2 minutes in a.m.; x1 minute in p.m. THEREX: Patient completed a global strengthening program while seated at EOB in both a.m. and p.m., as per flow sheet. Patient tolerated the addition of reaching exercises, as well as cervical ROM exercises. ASSESSMENT: Patient tolerated sessions well with some complaints of increased fatigue. Patient was able to tolerate a progression in ther ex. Patient would benefit from continued transfer training as well as strengthening for improved activity tolerance. PLAN: Continue with PT's POC TREATMENT CODE/TIME: Session 1: 30 minutes; 15572 x2, 74147 Session 2: 30 minutes; 37212, [id number]
--- NOTE | 2018-08-01 18:20 | PDOC.CMPRO ---
Care Management Progress Note S/O: Christie was sitting up in her bed, her sisters at her bedside. She continues to make gains towards mental and physical baseline. CM facilitated conversation central to SNF stay for short term rehab when medically ready. Christie was agreeable to transitioning short term and requested this chart writer fax referrals to [facility] [place], [facility] and [facility]. CM faxed referrals and will continue to follow. CM supported Tiny in retrieving [employer]OL[employer]TARY financial guardianship forms as Christie is now alert enough to engage in the process. A: 63 yo disabled female admitted for hypotension, aspiration pneumonia now with a PEG tube placement. P: SNF coordination has begun in anticipation of medical stabilization, Christie continues to work with S/T and P/T; CM to request OT consult. Christie will require follow up for outpatient manometry per MD. CM will continue to provide support ongoing discharge planning and disposition.
--- NOTE | 2018-08-01 18:42 | CMPROGNOTE_ITS ---
Care Management Progress Note S/O: Christie was sitting up in her bed, her sisters at her bedside. She continues to make gains towards mental and physical baseline. CM facilitated conversation central to SNF stay for short term rehab when medically ready. Christie was agreeable to transitioning short term and requested this assembly instructions writer fax referrals to [facility], [facility] and [facility]. CM faxed referrals and will continue to follow. CM supported Tiny in retrieving [employer]OL[employer]TARY financial guardianship forms as Christie is now alert enough to engage in the process. A: 63 yo disabled female admitted for hypotension, aspiration pneumonia now with a PEG tube placement. P: SNF coordination has begun in anticipation of medical stabilization, Christie continues to work with S/T and P/T; CM to request OT consult. Christie will require follow up for outpatient manometry per MD. CM will continue to provide support ongoing discharge planning and disposition.
--- NOTE | 2018-08-01 21:01 | W.PM.PROGNOT ---
Date of Service Date of service: 08/01/18 Time of Service: 18:00 Assessment and Plan (1) Acute on chronic diastolic CHF (congestive heart failure): Current visit: Yes Status: Acute EF 60-65% per echo in June. I have decreased free water with Tube feeding and am diuresing the patient some more tonight. Monitor I/O's and daily weights. (2) Aspiration pneumonia: Current visit: Yes Status: Resolved Finished 5 days of zosyn. (3) Schizophrenia: Current visit: No Status: Chronic with catatonia - improved/stable. Continue ativan per tube, monitoring mental status. Next week, would consider transitioning to clonazepam. (4) Altered mental status: Current visit: Yes Status: Acute At this point felt to be predominantly psychiatric in etiology, as in catatonia. Resolving. Continue PO ativan. Consider klonopin. (5) Dysphagia: Current visit: Yes Status: Acute Multifactorial - both oropharyngeal and esophageal, with at least part of oropharyngeal component thought to be psychogenic/due to being off of psychiatric medications. CT soft tissues of the neck was negative for any abnormality Failed repeat swallow eval. s/p PEG tube - tolerating TF's well. Will increase rate, as per nutrition recommendations, so that TF is only going for 20 hours/day. If the patient is going to be tube-feeding dependent, then the necessity of outpatient monometry is questionable. She is s/p EGD on this admission with a nonobstructing Schatzki ring. (6) Weakness on right side of face: Current visit: Yes Status: Resolved No evidence for CVA or seizure. Off of anticonvulsants at this time. (7) Esophageal dysmotility: Current visit: Yes Status: Acute As above (8) Hypotension: Current visit: Yes Status: Resolved Initially, hypotension to the point of shock requiring pressors with evidence of end-organ damage with KJ and elevation in Lactate - at this point felt to be due to sepsis/shock due to aspiration pneumonia at the time. Finished hydrocortisone taper, but no actual evidence of adrenal insufficiency on admission. BP's normalized. (9) Bradycardia: Current visit: No Status: Resolved Resolved, was seen in setting of hypotension. Avoid jovan agents. ? Tachy/Justin Syndrome. No longer requiring pressors/chronotropes. (10) KJ (acute kidney injury): Current visit: Yes Status: Resolved Cr remains stable - continue to monitor (11) GERD (gastroesophageal reflux disease): Current visit: Yes Status: Chronic Continue PPI 40 mg IV daily (12) Hypomagnesemia: Current visit: Yes Status: Resolved Continue to monitor (13) Hypernatremia: Current visit: Yes Status: Resolved Continue to monitor (14) Hypokalemia: Current visit: Yes Status: Resolved Continue to monitor (15) Discharge planning issues: Current visit: Yes Status: Acute DNR/DNI, s/p PEG Discussed with case management - patient may require a Level 2 review prior to placement. (16) DVT prophylaxis: Current visit: Yes Status: Acute Lovenox Subjective Interval history since last seen: Ms Gardiner complains of shortness of breath. She did have an episode of shortness of breath overnight which improved with lasix. Right now, she is not coughing. She denies dizziness, chest pain, nausea, vomiting. She states she thinks her chest is not moving. She is on room air. Exam Narrative Exam Narrative: General: Laying in bed at a 30 degree angle; no tachypnea, conversant in full sentences, no increased work of breathing whatsoever HEENT: EOMI, MMM Heart: RRR, no m/r/g Lungs: Diminished breath sounds B GI: abdomen soft; RLQ mass/seroma unchanged; PEG tube site clean, dry, intact Extremities: no e/c/c BLE's; 1+ BLE pedal pulses. Objective Objective Clinical Data: Abnormal lab results 08/01/18 08/01/18 Range/Units 06:48 06:48 RBC 3.43 L (4.00-5.20) m/cumm Hgb 8.4 L (12.0-15.5) g/dL Hct 28.1 L (36.0-46.0) % MCH 24.5 L (27.0-33.0) pg MCHC 29.9 L (32.0-36.0) g/dL RDW 19.0 H (11.7-14.6) % Glucose 116 H (70-100) mg/dL Vital Signs Temperature 37.2 C 08/01/18 20:22 Temperature Source Tympanic 08/01/18 20:22 Pulse 101 H 08/01/18 20:22 Pulse Rhythm Regular 08/01/18 15:53 Pulse 94 H 07/30/18 16:43 Respiratory Rate 20 08/01/18 20:22 Respiratory Effort 08/01/18 15:53 Respiratory Depth Shallow 08/01/18 15:53 Respiratory Pattern Tachypnea 08/01/18 15:53 Blood Pressure 148/109 H 08/01/18 20:22 Blood Pressure Mean 115 07/30/18 16:43 Blood Pressure Position Supine 07/30/18 16:46 Pulse Oximetry 92 L 08/01/18 20:22 Respiratory End-tidal CO2 34 07/07/18 15:01 Oxygen Delivery Method Room Air 08/01/18 20:22 Oxygen Flow Rate 0 08/01/18 20:22 Fraction of Inspired Oxygen (FIO2) 28 07/16/18 00:30 Pain Level 0 07/31/18 17:00 Comment 08/01/18 07:51 Intake & Output 07/31/18 08/01/18 08/01/18 23:59 11:59 23:59 Intake Total 1095 / 2020 666 / 1101 435 / 1101 Output Total 3960 / 4382 854 / 1263 409 / 1263 Balance -2865 / -2362 -188 / -162 26 / -162 Weight 97 kg Intake: IV 110 / 810 Intake, Tube Feeding Amount 985 / 1210 666 / 1101 435 / 1101 Output: Urine 3800 / 4100 800 / 1200 400 / 1200 Output, Residual 160 / 282 54 / 63 9 / 63 Other: Urine Color Pale Pale Yellow Yellow Yellow Urine Appearance Clear Clear Clear Urine Odor None Comment not emptied at this time Stool Size Smear Small Small Stool Characteristics Brown Soft Soft Brown Liquid Brown Voiding Methods Indwelling Catheter Laboratory Results WBC 8.44 k/cumm (4.4-10.8) 08/01/18 06:48 RBC 3.43 m/cumm (4.00-5.20) L 08/01/18 06:48 Hgb 8.4 g/dL (12.0-15.5) L 08/01/18 06:48 Hct 28.1 % (36.0-46.0) L 08/01/18 06:48 MCV 81.9 fL (80-95) 08/01/18 06:48 MCH 24.5 pg (27.0-33.0) L 08/01/18 06:48 MCHC 29.9 g/dL (32.0-36.0) L 08/01/18 06:48 RDW 19.0 % (11.7-14.6) H 08/01/18 06:48 Plt Count 386 x1000/uL (130-400) 08/01/18 06:48 MPV 11.0 fL (8.0-11.0) 08/01/18 06:48 Abs Immat Gran (auto) Cancelled 07/13/18 08:05 Immature Gran % 0.4 08/01/18 06:48 Neutrophils % 64.3 08/01/18 06:48 Band Neutrophils % Cancelled 07/13/18 08:05 Lymphocytes % 20.0 08/01/18 06:48 Atypical Lymphs % Cancelled 07/13/18 08:05 Monocytes % 7.8 08/01/18 06:48 Eosinophils % 6.9 08/01/18 06:48 Basophils % 0.6 08/01/18 06:48 Absolute Neutrophils 5.43 k/cumm (1.2-6.7) 08/01/18 06:48 Absolute Lymphocytes 1.69 k/cumm (1.2-3.4) 08/01/18 06:48 Absolute Monocytes 0.66 k/cumm (0.11-0.7) 08/01/18 06:48 Absolute Eosinophils 0.58 k/cumm (0.0-0.7) 08/01/18 06:48 Absolute Basophils 0.05 k/cumm (0.0-0.2) 08/01/18 06:48 Metamyelocytes Cancelled 07/13/18 08:05 Myelocytes Cancelled 07/13/18 08:05 Promyelocytes Cancelled 07/13/18 08:05 Nucleated RBCs Cancelled 07/13/18 08:05 Differential Comment Rbc morph reviewed 07/26/18 05:47 Other Cell Type Cancelled 07/13/18 08:05 RBC Morphology See below 07/26/18 05:47 Polychromasia Present 07/17/18 06:35 Hypochromasia 1+ 07/26/18 05:47 Poikilocytosis 1+ 07/17/18 06:35 Basophilic Stippling Cancelled 07/13/18 08:05 Anisocytosis 2+ 07/17/18 06:35 Microcytosis 2+ 07/26/18 05:47 Macrocytosis Cancelled 07/13/18 08:05 Spherocytes Cancelled 07/13/18 08:05 Target Cells Cancelled 07/13/18 08:05 Tear Drop Cells Cancelled 07/13/18 08:05 Ovalocytes 2+ 07/26/18 05:47 Stomatocytes Cancelled 07/13/18 08:05 [place] Bodies Cancelled 07/13/18 08:05 Girma Cells Cancelled 07/13/18 08:05 Acanthocytes (Spur) Cancelled 07/13/18 08:05 Schistocytes 1+ 07/26/18 05:47 D-Dimer 1329 ng/mlFEU (<500) H 07/07/18 21:15 Sodium 144 mmol/L (136-145) 08/01/18 06:48 Potassium 3.6 mmol/L (3.5-5.1) 08/01/18 06:48 Chloride 105 mmol/L (98-107) 08/01/18 06:48 Carbon Dioxide 30.1 mmol/L (21.0-32.0) 08/01/18 06:48 Anion Gap 8.9 mmol/L (3-11) 08/01/18 06:48 BUN 13 mg/dL (7-18) 08/01/18 06:48 Creatinine 0.87 mg/dL (0.55-1.02) 08/01/18 06:48 Estimated GFR/1.73 m2 >= 60.00 (mL/min/1.73m2) 08/01/18 06:48 Glucose 116 mg/dL (70-100) H 08/01/18 06:48 Lactate 1.0 mmol/L (0.6-1.4) 07/06/18 07:20 Calcium 8.9 mg/dL (8.5-10.1) 08/01/18 06:48 Magnesium 1.8 mg/dL (1.8-2.4) 08/01/18 06:48 Iron 20 ug/dL (50-175) L 07/25/18 16:13 TIBC 235 ug/dL (250-450) L 07/25/18 16:13 Transferrin % Sat 9 % (15-50) L 07/25/18 16:13 Ferritin 35 ng/mL (8-388) 07/25/18 16:13 Total Bilirubin 0.3 mg/dL (0.2-1.0) 07/12/18 05:50 Conjugated Bilirubin 0.10 mg/dL (0.00-0.20) 07/12/18 05:50 AST 24 U/L (15-37) 07/12/18 05:50 ALT 47 U/L (12-78) 07/12/18 05:50 Alkaline Phosphatase 65 U/L (46-116) 07/12/18 05:50 Ammonia < 10 umol/L (11-32) L 07/15/18 10:20 Troponin I 0.02 ng/mL (0.00-0.06) 07/08/18 05:00 NT-Pro-B Natriuret Pep 744 pg/mL (-299) H 07/31/18 19:52 Total Protein 4.6 g/dL (6.4-8.2) L 07/12/18 05:50 Albumin 2.2 g/dL (3.4-5.0) L 07/12/18 05:50 Lipase 252 U/L (73-393) 07/04/18 13:15 Vitamin B12 471 pg/mL (193-986) 07/25/18 16:13 Folate 8.0 ng/mL (8.6-20.0) L 07/25/18 16:13 Procalcitonin <0.10 ng/mL (<or=1.5) 07/08/18 06:24 Calcitonin Cancelled 07/08/18 06:24 TSH 1.09 uIU/mL (0.358-3.74) 07/06/18 07:20 Urine Color Yellow (Yellow) 07/14/18 13:05 Urine Clarity Clear 07/14/18 13:05 Urine pH 5.0 (5-8) 07/14/18 13:05 Ur Specific [place] <= 1.005 (1.005-1.025) 07/14/18 13:05 Urine Protein Negative mg/dL (Negative) 07/14/18 13:05 Urine Ketones Negative mg/dL (Negative) 07/14/18 13:05 Urine Blood Small (Negative) H 07/14/18 13:05 Urine Nitrite Negative (Negative) 07/14/18 13:05 Urine Bilirubin Negative (Negative) 07/14/18 13:05 Urine Urobilinogen 0.2 EU/dL (Up TO 0.2) 07/14/18 13:05 Ur Leukocyte Esterase Negative (Negative) 07/14/18 13:05 Urine RBC 3-5 (0-2) H 07/14/18 13:05 Urine WBC 0-2 HPF (0-5) 07/14/18 13:05 Ur Epithelial Cells Rare HPF (Negative) 07/14/18 13:05 Urine Crystals Rare amorphous HPF (Negative) 07/14/18 13:05 Urine Bacteria Rare HPF (Negative) 07/14/18 13:05 Urine Casts Negative LPF (Negative) 07/14/18 13:05 Urine Mucus Trace (Negative) 07/14/18 13:05 Ur Culture Indicated? C&s done as ordered 07/14/18 13:05 Urine Glucose 100 mg/dL (Negative) 07/14/18 13:05 Stool Campylobacter PCR See comments 07/06/18 12:45 Stool Salmonella PCR See comments 07/06/18 12:45 Stool Shigella PCR See comments 07/06/18 12:45 Vancomycin Trough 18.9 ug/mL (10.0-20.0) 07/20/18 06:17 Shiga Toxin (PCR) See comments 07/06/18 12:45 Path Cons Comment See comment 07/06/18 07:20 Miscellaneous Test Cancelled 07/08/18 06:24
[2018-08-01] MEDS: Furosemide 20 MG/2 ML VIAL IVP (21:41)
[2018-08-01] MEDS: Donepezil 5 MG TAB 10 MG UD (21:42)
[2018-08-01] MEDS: OLANZapine 5 MG TAB 10 MG UD (21:42)
[2018-08-02] VITALS (8 sets, daily range): BP systolic 134–172; BP diastolic 85–120; PULSE 90–105; RESP 18–20; TEMP 36.4–37.7; O2SAT 93–96
[2018-08-02] MEDS: LORazepam 1 MG TAB PO ×5 (04:57→21:29)
[2018-08-02 07:14] LABS: Abs Immature Grans 0.03 k/cumm (0.0-0.09); Absolute Basophil Count 0.04 k/cumm (0.0-0.2); Absolute Eosinophil Count 0.82 k/cumm (0.0-0.7); Absolute Lymphocyte Count 1.82 k/cumm (1.2-3.4); Absolute Monocyte Count 0.75 k/cumm (0.11-0.7); Basophils % 0.5; Eosinophils % 9.9; HCT 27.9 % (36.0-46.0); HGB 8.1 g/dL (12.0-15.5); Immature Grans % 0.4; Mean Corpuscular Hemoglobin 24.1 pg (27.0-33.0); Mean Platelet Volume 10.8 fL (8.0-11.0); Monocytes % 9.1; Neutrophils % 58.1; Platelet Count 402 x1000/uL (130-400); RBC 3.36 m/cumm (4.00-5.20); RBC Distribution Width 18.9 % (11.7-14.6); White Blood Cell Count 8.26 k/cumm (4.4-10.8)
[2018-08-02 07:19] LABS: Anion Gap 6.2 mmol/L (3-11); BUN 15 mg/dL (7-18); CO2 32.8 mmol/L (21.0-32.0); CREATININE 0.81 mg/dL (0.55-1.02); Calcium 8.7 mg/dL (8.5-10.1); Chloride 105 mmol/L (98-107); Glucose 106 mg/dL (70-100); Magnesium 1.7 mg/dL (1.8-2.4); Potassium 4.1 mmol/L (3.5-5.1); Sodium 144 mmol/L (136-145)
[2018-08-02] MEDS: Pantoprazole 40 MG VIAL IVP (09:20)
[2018-08-02] MEDS: Nystatin POWDER 60 GM JAR TP ×2 (09:20→17:55)
[2018-08-02] MEDS: Normal Saline Flush 10 ML SYR IVP (09:21)
[2018-08-02] MEDS: Normal Saline Flush 10 ML SYR 20 ML IVP ×2 (09:21→21:31)
[2018-08-02] MEDS: Enoxaparin 40 MG/0.4 ML SYR SC (09:22)
[2018-08-02] MEDS: Loperamide 2 MG CAP UD (09:25)
[2018-08-02] MEDS: Memantine 5 MG TAB 10 MG UD ×2 (09:25→21:29)
[2018-08-02] MEDS: Methimazole 5 MG TAB UD (09:25)
[2018-08-02] MEDS: Ferrous Sulfate 44 MG/ML Liquid 325 MG NG ×2 (09:26→21:32)
[2018-08-02] MEDS: Folic Acid 1 MG TAB NG (09:26)
[2018-08-02] MEDS: Cyanocobalamin 500 MCG TAB 1000 MCG NG (09:26)
[2018-08-02] MEDS: Magnesium Oxide 400 MG TAB NG (10:52)
--- NOTE | 2018-08-02 12:05 | PTTR_ITS ---
Date of service: 08/02/18 Time of Service: 08:10 PT Notes Inpatient Physical Therapy Treatment Note [facility] Date: 08/02/18 PRECAUTIONS:Fall and Standard SUBJECTIVE: Indicated she had pooped while performing right hip abd/adduction in bed. Returned to room later in the morning to perform seated on edge of bed exercises and standing activities, but patient indicated she did not want to try Stedy Lift today. Not feeling like she can stand as well today. OBJECTIVE: PAIN: No reported pain, just complaints of leg weakness. BED MOBILITY/TRANSFERS Supine-sit: SBA Sit-supine: SBA Sit-stand: Min assist of 2 Stand-sit: Min assist of 2 GAIT Assistive Device: EWW Weight bearing: WBAT Assist: Min assist x 2 Distance: Refused side stepping today and attempt to try Stedy Lift, but did perform 3 reps of sit to stand. Was able to stand x 30 seconds for 1 rep today. THEREX: Performed ther ex on edge of bed consisting of LAQs, hip abd/add, hip flexion, UE shoulder horizontal abd/add, rows, elbow flexion/ extension and shoulder flexion to approximately 80-90 degrees x 10 to 15 reps each. See flow sheet for details. Also, worked on sitting balance on edge of bed having patient perform changing head movements, reaching forward and reaching to right and left. ASSESSMENT: Tolerated today's PT session fair, but appeared a bit nervous about working with someone new. PLAN: Continue with current POC with focus on strengthening of bilateral UE/LEs and progression with ADL mobility. Hope to try Stedy Lift tomorrow if willing. TREATMENT CODE/TIME: 8:10 to 8:20 (10') and 10:45 to 11:05 (20'), [id number] adn [id number] x [id number] Christie Reid, PHOTOC[employer]YING EQUIPMENT REPAIRER
--- NOTE | 2018-08-02 17:59 | W.PM.PROGNOT ---
Date of Service Date of service: 08/02/18 Time of Service: 17:59 Assessment and Plan (1) Schizophrenia: Current visit: No Status: Chronic Restarted home meds as above on 07/19. Ms. 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 Per recommendations patient was transferred to the ICU, and initiated on standing dose frequent IV Ativan - she now has improved mentation, interaction, following commands, and at baseline. Need to consider change to longer acting benzo, with slow taper over weeks. Will discuss further with psychiatry. (2) Altered mental status: Current visit: Yes Status: Acute Initially described as episodes of confusion, 'staring', near unresponsive state while awake, with potential post-ictal like state - now appears different as patient's affect and verbal responsiveness have declined significantly. No evidence of active infection - thought potentially related to side-effect of Keppra (depression/confusion), now without change even after d/c. Potentially related to witholding of chronic psychiatric medications, catatonia per report from psychiatry. Reinitiated medications 07/19. Currently back to baseline with ativan therapy as above. EEG and MRI X2 were negative. (3) Dysphagia: Current visit: Yes Status: Acute History of benign distal esophageal stricture by EGD, s/p dilation in 2007. There was also noted Unprotected aspiration as well as large GERD with evidence of esophagitis. However, repeat EGD normal and Barium Swallow performed this hospitalization with no evidence of stricture, but with esophageal dysmotility and retention of barium in the esophagus. Patient treated for Aspiration pneumonia now on seperate occasions - s/p PEG tube placement 07/19. Maintain NPO status for now, continue Tube Feeds. Also restarted home meds via Peg Tube, with continued aspiration precautions. Due to hypotension from trial of ativan discontinued short acting Cardizem and initiated QHS Imipramine. Continue treatment of GERD with IV PPI therapy. Will ultimately need outpatient manometry if mental status returns to baseline and patient is able to cooperate. Of note, had been having problems with initiation of swallowing which appeared new and likely related to her altered mental status and holding of her psych medications. She has undergone repeat treatment of aspiration pneumonia despite PEG tube placement - needs repeat speech evaluation. Her psychiatric medications have been restarted and administered via PEG tube, and catatonia appears resolved. (4) Esophageal dysmotility: Current visit: Yes Status: Acute Treatment as above. (5) Hypotension: Current visit: Yes Status: Resolved Initially, hypotensive to the point of requiring pressor support, and with evidence of end-organ damage with KJ and elevation in Lactate - unknown etiology. Potential Dehydration in the setting of initiation of HCTZ vs. Sepsis - although no evidence of infiltrate or acute infection initially. Does not appear to have been adrenal insufficiency, with steroids weaned off. Echo without clear cardiogenic etiology, and no persistent arrhythmias on monitor. Aspiration pneumonia/recurrent aspiration events now seem like the most likely scenario. Appears resolved. (6) Bradycardia: Current visit: No Status: Resolved Abnormally normal heart rate during initial bout of hypotension, then frankly bradycardic - reportedly had a bout of junctional rhythm as well. However, review of EKG by Cardiology/Electrophysiology with note of Sinus Bradycardia. Avoid jovan agents - also with tachycardia noted. 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 (7) Hypernatremia: Current visit: Yes Status: Resolved Now resolved. Continue Tube Feeds, and Free Water via Peg Tube. (8) JK (acute kidney injury): Current visit: Yes Status: Resolved Creatinine stable. (9) Anemia: Current visit: Yes Status: Chronic Mildly worsening hgb, heme negative stool. Iron studies with low iron, low TIBC, and low ferritin. B12 normal but wit low FA. TSH normal as well. Continue PPI therapy, Ferrous sulfate and Folic Acid supplements. Add Vitamin C as well. (10) DVT prophylaxis: Current visit: Yes Status: Acute Continue Enoxaparin. (11) Advance directive on file: Current visit: Yes Status: Acute DNR/DNI. Subjective Interval history since last seen: 63-year-old woman with history of cognitive delay and Hypertension, admitted from [facility] Emergency Department with a diagnosis of Hypotension. Ms. Gardiner has a history of cognitive dysfunction, HTN, GERD, and Schizophrenia. She was initially sent to the emergency room because of several days of nonspecific weakness. In the ED she was noted to be significantly hypotensive with blood pressures in the 60s systolic, but without tachycardia. She was given fluid resuscitation and started on levophed. Initial laboratory evaluation of note for leukocytosis, low-grade pyuria (5-10 white cells), negative chest x-ray and CT of the abdomen that was unremarkable except for a known cyst in the right lower quadrant. She was then referred for admission for further evaluation and treatment. Since her admission Blood pressure eventually improved and she has remained off pressor support after recurrence of her hypotension, thought likely secondary to aspiration pneumonia/pneumonitis. Her Urine and Blood Cultures have remained negative, and her C. Diff and Fecal Leukocytes were negative as well. CT of the chest and ECHO have been normal. She did however show evidence of difficulty with swallowing, and a Barium Swallow revealed evidence of barium retention and esophageal dysmotility. Subsequent EGD was negative. Mrs. Gardiner had remained NPO and without oral meds or food for quite some time - successfully underwent PEG tube placement on 07/19 and restarted on her home medications. Still was not at her baseline mental status and had become essentially nonverbal and not following commands. Thought to be likely catatonia psychiatry was consulted and confirmed diagnosis. She was moved to the ICU and given trial of benzodiazepine therapy with excellent success. She is now awake and alert and appears back to baseline mental status. No other events reported. Remains afebrile. Exam Narrative Exam Narrative: General: Patient awake at time of visit, alert and at baseline mental status. NAD. Neck: Supple CV: Regular, mildly tachycardic, S1S2, No rubs, murmurs, or gallops. Pulmonary: Appears clear but diminished. Abdomen: + Bowel Sounds, soft, nontender, nondistended. RLQ seroma unchanged. PEG Tube site clean. Vascular: No lower extremity edema Objective Objective Clinical Data: Abnormal lab results 08/02/18 08/02/18 Range/Units 06:30 06:30 RBC 3.36 L (4.00-5.20) m/cumm Hgb 8.1 L (12.0-15.5) g/dL Hct 27.9 L (36.0-46.0) % MCH 24.1 L (27.0-33.0) pg MCHC 29.0 L (32.0-36.0) g/dL RDW 18.9 H (11.7-14.6) % Plt Count 402 H (130-400) x1000/uL Absolute Monocytes 0.75 H (0.11-0.7) k/cumm Absolute Eosinophils 0.82 H (0.0-0.7) k/cumm Carbon Dioxide 32.8 H (21.0-32.0) mmol/L Glucose 106 H (70-100) mg/dL Magnesium 1.7 L (1.8-2.4) mg/dL Vital Signs Temperature 37.7 C H 08/02/18 16:06 Temperature Source Tympanic 08/02/18 16:06 Pulse 102 H 08/02/18 16:06 Pulse Rhythm Regular 08/02/18 07:27 Pulse 94 H 07/30/18 16:43 Respiratory Rate 20 08/02/18 16:06 Respiratory Effort Incrsd Work of Breathing 08/02/18 07:27 Respiratory Depth Shallow 08/02/18 07:27 Respiratory Pattern Tachypnea 08/02/18 07:27 Blood Pressure 170/20 H 08/02/18 16:06 Blood Pressure Mean 115 07/30/18 16:43 Blood Pressure Position Supine 07/30/18 16:46 Pulse Oximetry 96 08/02/18 16:06 Respiratory End-tidal CO2 34 07/07/18 15:01 Oxygen Delivery Method Room Air 08/02/18 16:06 Oxygen Flow Rate 0 08/02/18 16:06 Fraction of Inspired Oxygen (FIO2) 28 07/16/18 00:30 Pain Level 0 08/02/18 11:45 Comment 08/02/18 16:06 Intake & Output 08/01/18 08/02/18 08/02/18 23:59 11:59 23:59 Intake Total 735 / 1401 936 / 2680 1744 / 2680 Output Total 415 / 1269 1747 / 2253 506 / 2253 Balance 320 / 132 -811 / 427 1238 / 427 Weight 95.6 kg Intake: Intake, Tube Feeding Amount 735 / 1401 936 / 2680 1744 / 2680 Output: Urine 400 / 1200 1650 / 2100 450 / 2100 Output, Residual 15 / 69 97 / 153 56 / 153 Other: Urine Color Yellow Yellow Yellow Urine Appearance Clear Clear Clear Stool Size Small Large Stool Characteristics Soft Soft Liquid Formed Brown Liquid Brown Laboratory Results WBC 8.26 k/cumm (4.4-10.8) 08/02/18 06:30 RBC 3.36 m/cumm (4.00-5.20) L 08/02/18 06:30 Hgb 8.1 g/dL (12.0-15.5) L 08/02/18 06:30 Hct 27.9 % (36.0-46.0) L 08/02/18 06:30 MCV 83.0 fL (80-95) 08/02/18 06:30 MCH 24.1 pg (27.0-33.0) L 08/02/18 06:30 MCHC 29.0 g/dL (32.0-36.0) L 08/02/18 06:30 RDW 18.9 % (11.7-14.6) H 08/02/18 06:30 Plt Count 402 x1000/uL (130-400) H 08/02/18 06:30 MPV 10.8 fL (8.0-11.0) 08/02/18 06:30 Abs Immat Gran (auto) Cancelled 07/13/18 08:05 Immature Gran % 0.4 08/02/18 06:30 Neutrophils % 58.1 08/02/18 06:30 Band Neutrophils % Cancelled 07/13/18 08:05 Lymphocytes % 22.0 08/02/18 06:30 Atypical Lymphs % Cancelled 07/13/18 08:05 Monocytes % 9.1 08/02/18 06:30 Eosinophils % 9.9 08/02/18 06:30 Basophils % 0.5 08/02/18 06:30 Absolute Neutrophils 4.80 k/cumm (1.2-6.7) 08/02/18 06:30 Absolute Lymphocytes 1.82 k/cumm (1.2-3.4) 08/02/18 06:30 Absolute Monocytes 0.75 k/cumm (0.11-0.7) H 08/02/18 06:30 Absolute Eosinophils 0.82 k/cumm (0.0-0.7) H 08/02/18 06:30 Absolute Basophils 0.04 k/cumm (0.0-0.2) 08/02/18 06:30 Metamyelocytes Cancelled 07/13/18 08:05 Myelocytes Cancelled 07/13/18 08:05 Promyelocytes Cancelled 07/13/18 08:05 Nucleated RBCs Cancelled 07/13/18 08:05 Differential Comment Rbc morph reviewed 07/26/18 05:47 Other Cell Type Cancelled 07/13/18 08:05 RBC Morphology See below 07/26/18 05:47 Polychromasia Present 07/17/18 06:35 Hypochromasia 1+ 07/26/18 05:47 Poikilocytosis 1+ 07/17/18 06:35 Basophilic Stippling Cancelled 07/13/18 08:05 Anisocytosis 2+ 07/17/18 06:35 Microcytosis 2+ 07/26/18 05:47 Macrocytosis Cancelled 07/13/18 08:05 Spherocytes Cancelled 07/13/18 08:05 Target Cells Cancelled 07/13/18 08:05 Tear Drop Cells Cancelled 07/13/18 08:05 Ovalocytes 2+ 07/26/18 05:47 Stomatocytes Cancelled 07/13/18 08:05 [place] Blue Bodies Cancelled 07/13/18 08:05 Girma Cells Cancelled 07/13/18 08:05 Acanthocytes (Spur) Cancelled 07/13/18 08:05 Schistocytes 1+ 07/26/18 05:47 D-Dimer 1329 ng/mlFEU (<500) H 07/07/18 21:15 Sodium 144 mmol/L (136-145) 08/02/18 06:30 Potassium 4.1 mmol/L (3.5-5.1) 08/02/18 06:30 Chloride 105 mmol/L (98-107) 08/02/18 06:30 Carbon Dioxide 32.8 mmol/L (21.0-32.0) H 08/02/18 06:30 Anion Gap 6.2 mmol/L (3-11) 08/02/18 06:30 BUN 15 mg/dL (7-18) 08/02/18 06:30 Creatinine 0.81 mg/dL (0.55-1.02) 08/02/18 06:30 Estimated GFR/1.73 m2 >= 60.00 (mL/min/1.73m2) 08/02/18 06:30 Glucose 106 mg/dL (70-100) H 08/02/18 06:30 Lactate 1.0 mmol/L (0.6-1.4) 07/06/18 07:20 Calcium 8.7 mg/dL (8.5-10.1) 08/02/18 06:30 Magnesium 1.7 mg/dL (1.8-2.4) L 08/02/18 06:30 Iron 20 ug/dL (50-175) L 07/25/18 16:13 TIBC 235 ug/dL (250-450) L 07/25/18 16:13 Transferrin % Sat 9 % (15-50) L 07/25/18 16:13 Ferritin 35 ng/mL (8-388) 07/25/18 16:13 Total Bilirubin 0.3 mg/dL (0.2-1.0) 07/12/18 05:50 Conjugated Bilirubin 0.10 mg/dL (0.00-0.20) 07/12/18 05:50 AST 24 U/L (15-37) 07/12/18 05:50 ALT 47 U/L (12-78) 07/12/18 05:50 Alkaline Phosphatase 65 U/L (46-116) 07/12/18 05:50 Ammonia < 10 umol/L (11-32) L 07/15/18 10:20 Troponin I 0.02 ng/mL (0.00-0.06) 07/08/18 05:00 NT-Pro-B Natriuret Pep 744 pg/mL (-299) H 07/31/18 19:52 Total Protein 4.6 g/dL (6.4-8.2) L 07/12/18 05:50 Albumin 2.2 g/dL (3.4-5.0) L 07/12/18 05:50 Lipase 252 U/L (73-393) 07/04/18 13:15 Vitamin B12 471 pg/mL (193-986) 07/25/18 16:13 Folate 8.0 ng/mL (8.6-20.0) L 07/25/18 16:13 Procalcitonin <0.10 ng/mL (<or=1.5) 07/08/18 06:24 Calcitonin Cancelled 07/08/18 06:24 TSH 1.09 uIU/mL (0.358-3.74) 07/06/18 07:20 Urine Color Yellow (Yellow) 07/14/18 13:05 Urine Clarity Clear 07/14/18 13:05 Urine pH 5.0 (5-8) 07/14/18 13:05 Ur Specific Lamar <= 1.005 (1.005-1.025) 07/14/18 13:05 Urine Protein Negative mg/dL (Negative) 07/14/18 13:05 Urine Ketones Negative mg/dL (Negative) 07/14/18 13:05 Urine Blood Small (Negative) H 07/14/18 13:05 Urine Nitrite Negative (Negative) 07/14/18 13:05 Urine Bilirubin Negative (Negative) 07/14/18 13:05 Urine Urobilinogen 0.2 EU/dL (Up TO 0.2) 07/14/18 13:05 Ur Leukocyte Esterase Negative (Negative) 07/14/18 13:05 Urine RBC 3-5 (0-2) H 07/14/18 13:05 Urine WBC 0-2 HPF (0-5) 07/14/18 13:05 Ur Epithelial Cells Rare HPF (Negative) 07/14/18 13:05 Urine Crystals Rare amorphous HPF (Negative) 07/14/18 13:05 Urine Bacteria Rare HPF (Negative) 07/14/18 13:05 Urine Casts Negative LPF (Negative) 07/14/18 13:05 Urine Mucus Trace (Negative) 07/14/18 13:05 Ur Culture Indicated? C&s done as ordered 07/14/18 13:05 Urine Glucose 100 mg/dL (Negative) 07/14/18 13:05 Stool Campylobacter PCR See comments 07/06/18 12:45 Stool Salmonella PCR See comments 07/06/18 12:45 Stool Shigella PCR See comments 07/06/18 12:45 Vancomycin Trough 18.9 ug/mL (10.0-20.0) 07/20/18 06:17 Shiga Toxin (PCR) See comments 07/06/18 12:45 Path Cons Comment See comment 07/06/18 07:20 Miscellaneous Test Cancelled 07/08/18 06:24
--- NOTE | 2018-08-02 19:47 | PDOC.CMPRO ---
Care Management Progress Note S/O: Christie continues to make gains towards mental and physical baseline. She will have a repeat S/T consult to inform next steps and will have a new OT consult as well. Referrals faxed to [facility], [facility] and [facility]; coordination to continue when admission staff available on 08/04/18. A: 63 yo disabled female admitted for hypotension, aspiration pneumonia now with a PEG tube placement. P: SNF coordination has begun in anticipation of medical stabilization, Christie continues to work with S/T and P/T; CM to request OT consult. Christie will require follow up for outpatient manometry per MD. CM will continue to provide support ongoing discharge planning and disposition.
--- NOTE | 2018-08-02 19:50 | CMPROGNOTE_ITS ---
Care Management Progress Note S/O: Christie continues to make gains towards mental and physical baseline. She will have a repeat S/T consult to inform next steps and will have a new OT consult as well. Referrals faxed to [facility], [facility] [place] and [facility]; coordination to continue when admission staff available on 08/04/18. A: 63 yo disabled female admitted for hypotension, aspiration pneumonia now with a PEG tube placement. P: SNF coordination has begun in anticipation of medical stabilization, Christie continues to work with S/T and P/T; CM to request OT consult. Christie will require follow up for outpatient manometry per MD. CM will continue to provide support ongoing discharge planning and disposition.
[2018-08-02] MEDS: Donepezil 5 MG TAB 10 MG UD (21:28)
[2018-08-02] MEDS: OLANZapine 5 MG TAB 10 MG UD (21:28)
[2018-08-02] MEDS: Ascorbic Acid 500 MG TAB NG (21:29)
[2018-08-03] MEDS: LORazepam 1 MG TAB PO ×3 (00:06→09:05)
[2018-08-03 04:10] VITALS: BP 122/86; PULSE 83; RESP 28; TEMP 36.7; O2SAT 94
[2018-08-03 07:17] LABS: Abs Immature Grans 0.04 k/cumm (0.0-0.09); Absolute Basophil Count 0.05 k/cumm (0.0-0.2); Absolute Eosinophil Count 0.76 k/cumm (0.0-0.7); Absolute Lymphocyte Count 2.15 k/cumm (1.2-3.4); Absolute Monocyte Count 0.66 k/cumm (0.11-0.7); Absolute Neutrophil Count 5.17 k/cumm (1.2-6.7); Basophils % 0.6; Eosinophils % 8.6; HCT 28.2 % (36.0-46.0); HGB 8.3 g/dL (12.0-15.5); Immature Grans % 0.5; Lymphocytes % 24.3; Mean Corp. HGB Concentration 29.4 g/dL (32.0-36.0); Mean Corpuscular Hemoglobin 24.4 pg (27.0-33.0); Mean Corpuscular Volume 82.9 fL (80-95); Mean Platelet Volume 10.8 fL (8.0-11.0); Monocytes % 7.5; Neutrophils % 58.5; Platelet Count 418 x1000/uL (130-400); RBC Distribution Width 18.7 % (11.7-14.6); White Blood Cell Count 8.83 k/cumm (4.4-10.8)
[2018-08-03 07:28] LABS: Anion Gap 7.3 mmol/L (3-11); BUN 18 mg/dL (7-18); CO2 30.7 mmol/L (21.0-32.0); CREATININE 0.73 mg/dL (0.55-1.02); Calcium 9.1 mg/dL (8.5-10.1); Chloride 106 mmol/L (98-107); Glucose 111 mg/dL (70-100); Magnesium 1.8 mg/dL (1.8-2.4); Potassium 4.2 mmol/L (3.5-5.1); Sodium 144 mmol/L (136-145)
[2018-08-03 07:50] VITALS: BP 162/115; PULSE 93; RESP 18; TEMP 36.2; O2SAT 97
[2018-08-03] MEDS: Normal Saline Flush 10 ML SYR IVP (09:19)
[2018-08-03] MEDS: Normal Saline Flush 10 ML SYR 20 ML IVP ×2 (09:19→20:56)
[2018-08-03] MEDS: Memantine 5 MG TAB 10 MG UD ×2 (09:21→20:55)
[2018-08-03] MEDS: Ascorbic Acid 500 MG TAB NG ×2 (09:21→20:55)
[2018-08-03] MEDS: Methimazole 5 MG TAB 10 MG UD (09:21)
[2018-08-03] MEDS: Cyanocobalamin 500 MCG TAB 1000 MCG NG (09:21)
[2018-08-03] MEDS: Loperamide 2 MG CAP UD (09:22)
[2018-08-03] MEDS: Enoxaparin 40 MG/0.4 ML SYR SC (09:22)
[2018-08-03] MEDS: Folic Acid 1 MG TAB NG (09:22)
[2018-08-03] MEDS: Ferrous Sulfate 44 MG/ML Liquid 325 MG NG ×2 (09:22→21:11)
[2018-08-03] MEDS: Pantoprazole 40 MG VIAL IVP (10:09)
[2018-08-03] MEDS: Nystatin POWDER 60 GM JAR TP ×2 (10:10→20:55)
[2018-08-03] MEDS: Magnesium Oxide 400 MG TAB JT (10:55)
[2018-08-03 11:20] VITALS: BP 164/114; PULSE 100; RESP 20; TEMP 37.4; O2SAT 97
--- NOTE | 2018-08-03 12:10 | PDOC.CMPRO ---
Care Management Progress Note S/O: Christie continues to make gains towards mental and physical baseline. She will have a repeat S/T consult to inform next steps and continue working with Psychiatry, PT and OT. Christie will transition to Clonidine long acting per MD. Referrals faxed to [facility], [facility] and [facility]; coordination to continue when admission staff available on 08/04/18. A: 63 yo disabled female admitted for hypotension, aspiration pneumonia now with a PEG tube placement. P: SNF coordination has begun in anticipation of medical stabilization, Christie continues to work with S/T and P/T; CM to request OT consult. Christie will require follow up for outpatient manometry per MD. CM will continue to provide support ongoing discharge planning and disposition.
--- NOTE | 2018-08-03 12:38 | PT.INTREAT ---
Date of service: 08/03/18 Time of Service: 08:30 PT Notes Inpatient Physical Therapy Treatment Note [facility] Date: 08/03/18 PRECAUTIONS:Fall and Standard SUBJECTIVE: Indicated she would like to sit up in the recliner chair today. OBJECTIVE: PAIN: No reported pain complaints offered. BED MOBILITY/TRANSFERS Supine-sit: SBA Sit-supine: SBA Sit-stand: Min assist with 4WW Stand-sit: Min assist with 4WW GAIT Assistive Device: 4WW Weight bearing: AT Assist: Min assist of 2 Distance: Stood at bed side for 1-11/2 minutes x 2 Utilized Stedy Lift with patient able to perform a sit to stand transfer and transition to recliner chair. THEREX: Performed AP x 20 reps, seated SAQs, hip flexion and hip abd/add for 15 reps each. Also, performed UE horizontal shoulder abd/add, rows, shoulder flexion to 80-90 degrees, and elbow flexion / extension for 15 reps each. Worked on sitting balance on edge of bed with patient performing head position changes and reaching with L/R UE upon verbal commands. ASSESSMENT: Tolerated PT session very well with good effort given with all exercises and willing to try Stedy Lift for chair transfer. Actually did well with this. PLAN: Continue with current POC with focus on improved UE/ LE strength and ADL function. 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
--- NOTE | 2018-08-03 12:50 | PTTR_ITS ---
Date of service: 08/03/18 Time of Service: 08:30 PT Notes Inpatient Physical Therapy Treatment Note [facility] Date: 08/03/18 PRECAUTIONS:Fall and Standard SUBJECTIVE: Indicated she would like to sit up in the recliner chair today. OBJECTIVE: PAIN: No reported pain complaints offered. BED MOBILITY/TRANSFERS Supine-sit: SBA Sit-supine: SBA Sit-stand: Min assist with 4WW Stand-sit: Min assist with 4WW GAIT Assistive Device: 4WW Weight bearing: AT Assist: Min assist of 2 Distance: Stood at bed side for 1-11/2 minutes x 2 Utilized Stedy Lift with patient able to perform a sit to stand transfer and transition to recliner chair. THEREX: Performed AP x 20 reps, seated SAQs, hip flexion and hip abd/add for 15 reps each. Also, performed UE horizontal shoulder abd/add, rows, shoulder flexion to 80-90 degrees, and elbow flexion / extension for 15 reps each. Worked on sitting balance on edge of bed with patient performing head position changes and reaching with L/R UE upon verbal commands. ASSESSMENT: Tolerated PT session very well with good effort given with all exercises and willing to try Stedy Lift for chair transfer. Actually did well with this. PLAN: Continue with current POC with focus on improved UE/ LE strength and ADL function. TREATMENT CODE/TIME: 8:30 to 9:00 (30'), 37928 x 1 and 33360 x 1 Christie Reid ANIMAL DAYCARE PROVIDER
[2018-08-03] MEDS: clonazePAM 1 MG TAB PO ×2 (14:04→20:55)
[2018-08-03 15:51] VITALS: BP 163/107; PULSE 101; RESP 20; TEMP 37.2; O2SAT 97
--- NOTE | 2018-08-03 17:02 | PGE_ITS ---
Date of Service Date of service: 08/03/18 Time of Service: 16:58 Assessment and Plan (1) Schizophrenia: Current visit: No Status: Chronic Restarted home meds as above on 07/19. Ms. 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 Per recommendations patient was transferred to the ICU, and initiated on standing dose frequent IV Ativan - she now has improved mentation, interaction, following commands, and appears at baseline mental status. Has been maintained on Q4 hour oral Lorazepam. Change to equivalent dosing long-acting benzo with Clonazepam today, with slow taper planned over weeks. Will discuss further with psychiatry. (2) Altered mental status: Current visit: Yes Status: Acute Initially described as episodes of confusion, 'staring', near unresponsive state while awake, with potential post-ictal like state - now appears different as patient's affect and verbal responsiveness have declined significantly. No evidence of active infection - thought potentially related to side-effect of Keppra (depression/confusion), now without change even after d/c. Potentially related to witholding of chronic psychiatric medications, catatonia per report from psychiatry. Reinitiated medications 07/19. Currently back to baseline with benzo therapy as above. EEG and MRI X2 were negative. (3) Dysphagia: Current visit: Yes Status: Acute History of benign distal esophageal stricture by EGD, s/p dilation in 2007. There was also noted Unprotected aspiration as well as large GERD with evidence of esophagitis. However, repeat EGD normal and Barium Swallow performed this hospitalization with no evidence of stricture, but with esophageal dysmotility and retention of barium in the esophagus. Patient treated for Aspiration pneumonia now on seperate occasions - s/p PEG tube placement 07/19. Maintaining NPO status with continue dTube Feeds. Also restarted home meds via Peg Tube, with continued aspiration precautions. Due to hypotension from trial of ativan discontinued short acting Cardizem and initiated QHS Imipramine. Continue treatment of GERD with IV PPI therapy. Will ultimately need outpatient manometry if patient is able to cooperate and tolerate testing. Of note, had been having problems with initiation of swallowing which appeared new and likely related to her altered mental status and holding of her psych medications. She has undergone repeat treatment of aspiration pneumonia despite PEG tube placement - needs repeat speech evaluation. Her psychiatric medications have been restarted and administered via PEG tube, and catatonia appears resolved. (4) Esophageal dysmotility: Current visit: Yes Status: Acute Treatment as above. (5) Hypotension: Current visit: Yes Status: Resolved Initially, hypotensive to the point of requiring pressor support, and with evidence of end-organ damage with KJ and elevation in Lactate - unknown etiology. Potential Dehydration in the setting of initiation of HCTZ vs. Sepsis - although no evidence of infiltrate or acute infection initially. Does not appear to have been adrenal insufficiency, with steroids weaned off. Echo without clear cardiogenic etiology, and no persistent arrhythmias on monitor. A spiration pneumonia/recurrent aspiration events now seem like the most likely scenario. Appears resolved. (6) Bradycardia: Current visit: No Status: Resolved Abnormally normal heart rate during initial bout of hypotension, then frankly bradycardic - reportedly had a bout of junctional rhythm as well. However, review of EKG by Cardiology/Electrophysiology with note of Sinus Bradycardia. Avoid jovan agents - also with tachycardia noted. 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 (7) Hypernatremia: Current visit: Yes Status: Resolved Now resolved. Continue Tube Feeds, and Free Water via Peg Tube. (8) KJ (acute kidney injury): Current visit: Yes Status: Resolved Creatinine stable. (9) Anemia: Current visit: Yes Status: Chronic Stable but low hgb, heme negative stool. Iron studies with low iron, low TIBC, and low ferritin. B12 normal but wit low FA. TSH normal as well. Continue PPI therapy, Ferrous sulfate and Folic Acid supplements. Added Vitamin C as well. (10) DVT prophylaxis: Current visit: Yes Status: Acute Continue Enoxaparin. (11) Advance directive on file: Current visit: Yes Status: Acute DNR/DNI. Subjective Interval history since last seen: 63-year-old woman with history of cognitive delay and Hypertension, admitted from [facility] Emergency Department with a diagnosis of Hypotension. Ms. Gardiner has a history of cognitive dysfunction, HTN, GERD, and Schizophrenia. She was initially sent to the emergency room because of several days of nonspecific weakness. In the ED she was noted to be significantly hypotensive with blood pressures in the 60s systolic, but without tachycardia. She was given fluid resuscitation and started on levophed. Initial laboratory evaluation of note for leukocytosis, low-grade pyuria (5-10 white cells), nega tive chest x-ray and CT of the abdomen that was unremarkable except for a known cyst in the right lower quadrant. She was then referred for admission for further evaluation and treatment. Since her admission Blood pressure eventually improved and she has remained off pressor support after recurrence of her hypotension, thought likely secondary to aspiration pneumonia/pneumonitis. Her Urine and Blood Cultures have remained negative, and her C. Diff and Fecal Leukocytes were negative as well. CT of the chest and ECHO have been normal. She did however show evidence of difficulty with swallowing, and a Barium Swallow revealed evidence of barium retention and esophageal dysmotility. Subsequent EGD was negative. Mrs. Gardiner had remained NPO and without oral meds or food for quite some time - successfully underwent PEG tube placement on 07/19 and restarted on her home medications. Still was not at her baseline mental status and had become essentially nonverbal and not following commands. Thought to be likely catatonia psychiatry was consulted and confirmed diagnosis. She was moved to the ICU and given trial of benzodiazepine therapy with excellent success. She is now awake and alert and appears back to baseline mental status. Needs repeat speech evaluation and likely SNF for skilled rehab. No other events reported. Remains afebrile. Exam Narrative Exam Narrative: General: Patient awake at time of visit, alert and at baseline mental status. NAD. Neck: Supple CV: Regular, mildly tachycardic, S1S2, No rubs, murmurs, or gallops. Pulmonary: Appears clear but diminished. Abdomen: + Bowel Sounds, soft, nontender, nondistended. RLQ seroma unchanged. PEG Tube site clean. Vascular: No lower extremity edema Objective Objective Clinical Data: Abnormal lab results 08/03/18 08/03/18 Range/Units 06:32 06:32 RBC 3.40 L (4.00-5.20) m/cumm Hgb 8.3 L (12.0-15.5) g/dL Hct 28.2 L (36.0-46.0) % MCH 24.4 L (27.0-33.0) pg MCHC 29.4 L (32.0-36.0) g/dL RDW 18.7 H (11.7-14.6) % Plt Count 418 H (130-400) x1000/uL Absolute Eosinophils 0.76 H (0.0-0.7) k/cumm Glucose 111 H (70-100) mg/dL Vital Signs Temperature 37.2 C 08/03/18 15:51 Temperature Source Tympanic 08/03/18 15:51 Pulse 101 H 08/03/18 15:51 Pulse Rhythm Regular 08/03/18 16:23 Pulse 94 H 07/30/18 16:43 Respiratory Rate 20 08/03/18 15:51 Respiratory Effort 08/03/18 16:23 Respiratory Depth Shallow 08/03/18 16:23 Respiratory Pattern Tachypnea 08/03/18 16:23 Blood Pressure 163/107 H 08/03/18 15:51 Blood Pressure Mean 115 07/30/18 16:43 Blood Pressure Position Supine 07/30/18 16:46 Pulse Oximetry 97 08/03/18 15:51 Respiratory End-tidal CO2 34 07/07/18 15:01 Oxygen Delivery Method Room Air 08/03/18 15:51 Oxygen Flow Rate 0 08/03/18 15:51 Fraction of Inspired Oxygen (FIO2) 28 07/16/18 00:30 Pain Level 0 08/03/18 11:20 Comment 08/03/18 04:10 Intake & Output 08/02/18 08/03/18 08/03/18 23:59 11:59 23:59 Intake Total 1744 / 2680 1595 / 1595 Output Total 1106 / 2853 382 / 982 600 / 982 Balance 638 / -173 -382 / 613 995 / 613 Weight 94.8 kg Intake: Intake, Tube Feeding Amount 1744 / 2680 1595 / 1595 Output: Urine 1050 / 2700 350 / 950 600 / 950 Output, Residual 56 / 153 32 / 32 Other: Urine Color Yellow Yellow Light Sofia Urine Appearance Clear Clear Clear Stool Size Moderate Stool Characteristics Soft Brown Laboratory Results WBC 8.83 k/cumm (4.4-10.8) 08/03/18 06:32 RBC 3.40 m/cumm (4.00-5.20) L 08/03/18 06:32 Hgb 8.3 g/dL (12.0-15.5) L 08/03/18 06:32 Hct 28.2 % (36.0-46.0) L 08/03/18 06:32 MCV 82.9 fL (80-95) 08/03/18 06:32 MCH 24.4 pg (27.0-33.0) L 08/03/18 06:32 MCHC 29.4 g/dL (32.0-36.0) L 08/03/18 06:32 RDW 18.7 % (11.7-14.6) H 08/03/18 06:32 Plt Count 418 x1000/uL (130-400) H 08/03/18 06:32 MPV 10.8 fL (8.0-11.0) 08/03/18 06:32 Abs Immat Gran (auto) Cancelled 07/13/18 08:05 Immature Gran % 0.5 08/03/18 06:32 Neutrophils % 58.5 08/03/18 06:32 Band Neutrophils % Cancelled 07/13/18 08:05 Lymphocytes % 24.3 08/03/18 06:32 Atypical Lymphs % Cancelled 07/13/18 08:05 Monocytes % 7.5 08/03/18 06:32 Eosinophils % 8.6 08/03/18 06:32 Basophils % 0.6 08/03/18 06:32 Absolute Neutrophils 5.17 k/cumm (1.2-6.7) 08/03/18 06:32 Absolute Lymphocytes 2.15 k/cumm (1.2-3.4) 08/03/18 06:32 Absolute Monocytes 0.66 k/cumm (0.11-0.7) 08/03/18 06:32 Absolute Eosinophils 0.76 k/cumm (0.0-0.7) H 08/03/18 06:32 Absolute Basophils 0.05 k/cumm (0.0-0.2) 08/03/18 06:32 Metamyelocytes Cancelled 07/13/18 08:05 Myelocytes Cancelled 07/13/18 08:05 Promyelocytes Cancelled 07/13/18 08:05 Nucleated RBCs Cancelled 07/13/18 08:05 Differential Comment Rbc morph reviewed 07/26/18 05:47 Other Cell Type Cancelled 07/13/18 08:05 RBC Morphology See below 07/26/18 05:47 Polychromasia Present 07/17/18 06:35 Hypochromasia 1+ 07/26/18 05:47 Poikilocytosis 1+ 07/17/18 06:35 Basophilic Stippling Cancelled 07/13/18 08:05 Anisocytosis 2+ 07/17/18 06:35 Microcytosis 2+ 07/26/18 05:47 Macrocytosis Cancelled 07/13/18 08:05 Spherocytes Cancelled 07/13/18 08:05 Target Cells Cancelled 07/13/18 08:05 Tear Drop Cells Cancelled 07/13/18 08:05 Ovalocytes 2+ 07/26/18 05:47 Stomatocytes Cancelled 07/13/18 08:05 [place] Bodies Cancelled 07/13/18 08:05 Girma Cells Cancelled 07/13/18 08:05 Acanthocytes (Spur) Cancelled 07/13/18 08:05 Schistocytes 1+ 07/26/18 05:47 D-Dimer 1329 ng/mlFEU (<500) H 07/07/18 21:15 Sodium 144 mmol/L (136-145) 08/03/18 06:32 Potassium 4.2 mmol/L (3.5-5.1) 08/03/18 06:32 Chloride 106 mmol/L (98-107) 08/03/18 06:32 Carbon Dioxide 30.7 mmol/L (21.0-32.0) 08/03/18 06:32 Anion Gap 7.3 mmol/L (3-11) 08/03/18 06:32 BUN 18 mg/dL (7-18) 08/03/18 06:32 Creatinine 0.73 mg/dL (0.55-1.02) 08/03/18 06:32 Estimated GFR/1.73 m2 >= 60.00 (mL/min/1.73m2) 08/03/18 06:32 Glucose 111 mg/dL (70-100) H 08/03/18 06:32 Lactate 1.0 mmol/L (0.6-1.4) 07/06/18 07:20 Calcium 9.1 mg/dL (8.5-10.1) 08/03/18 06:32 Magnesium 1.8 mg/dL (1.8-2.4) 08/03/18 06:32 Iron 20 ug/dL (50-175) L 07/25/18 16:13 TIBC 235 ug/dL (250-450) L 07/25/18 16:13 Transferrin % Sat 9 % (15-50) L 07/25/18 16:13 Ferritin 35 ng/mL (8-388) 07/25/18 16:13 Total Bilirubin 0.3 mg/dL (0.2-1.0) 07/12/18 05:50 Conjugated Bilirubin 0.10 mg/dL (0.00-0.20) 07/12/18 05:50 AST 24 U/L (15-37) 07/12/18 05:50 ALT 47 U/L (12-78) 07/12/18 05:50 Alkaline Phosphatase 65 U/L (46-116) 07/12/18 05:50 Ammonia < 10 umol/L (11-32) L 07/15/18 10:20 Troponin I 0.02 ng/mL (0.00-0.06) 07/08/18 05:00 NT-Pro-B Natriuret Pep 744 pg/mL (-299) H 07/31/18 19:52 Total Protein 4.6 g/dL (6.4-8.2) L 07/12/18 05:50 Albumin 2.2 g/dL (3.4-5.0) L 07/12/18 05:50 Lipase 252 U/L (73-393) 07/04/18 13:15 Vitamin B12 471 pg/mL (193-986) 07/25/18 16:13 Folate 8.0 ng/mL (8.6-20.0) L 07/25/18 16:13 Procalcitonin <0.10 ng/mL (<or=1.5) 07/08/18 06:24 Calcitonin Cancelled 07/08/18 06:24 TSH 1.09 uIU/mL (0.358-3.74) 07/06/18 07:20 Urine Color Yellow (Yellow) 07/14/18 13:05 Urine Clarity Clear 07/14/18 13:05 Urine pH 5.0 (5-8) 07/14/18 13:05 Ur Specific [place] <= 1.005 (1.005-1.025) 07/14/18 13:05 Urine Protein Negative mg/dL (Negative) 07/14/18 13:05 Urine Ketones Negative mg/dL (Negative) 07/14/18 13:05 Urine Blood Small (Negative) H 07/14/18 13:05 Urine Nitrite Negative (Negative) 07/14/18 13:05 Urine Bilirubin Negative (Negative) 07/14/18 13:05 Urine Urobilinogen 0.2 EU/dL (Up TO 0.2) 07/14/18 13:05 Ur Leukocyte Esterase Negative (Negative) 07/14/18 13:05 Urine RBC 3-5 (0-2) H 07/14/18 13:05 Urine WBC 0-2 HPF (0-5) 07/14/18 13:05 Ur Epithelial Cells Rare HPF (Negative) 07/14/18 13:05 Urine Crystals Rare amorphous HPF (Negative) 07/14/18 13:05 Urine Bacteria Rare HPF (Negative) 07/14/18 13:05 Urine Casts Negative LPF (Negative) 07/14/18 13:05 Urine Mucus Trace (Negative) 07/14/18 13:05 Ur Culture Indicated? C&s done as ordered 07/14/18 13:05 Urine Glucose 100 mg/dL (Negative) 07/14/18 13:05 Stool Campylobacter PCR See comments 07/06/18 12:45 Stool Salmonella PCR See comments 07/06/18 12:45 Stool Shigella PCR See comments 07/06/18 12:45 Vancomycin Trough 18.9 ug/mL (10.0-20.0) 07/20/18 06:17 Shiga Toxin (PCR) See comments 07/06/18 12:45 Path Cons Comment See comment 07/06/18 07:20 Miscellaneous Test Cancelled 07/08/18 06:24
[2018-08-03 19:39] VITALS: BP 177/93; PULSE 96; RESP 20; TEMP 36.7; O2SAT 96
[2018-08-03] MEDS: Donepezil 5 MG TAB 10 MG UD (20:55)
[2018-08-03] MEDS: OLANZapine 5 MG TAB 10 MG UD (20:55)
[2018-08-04 00:17] VITALS: BP 110/75; PULSE 86; RESP 20; TEMP 36; O2SAT 93
[2018-08-04 04:50] VITALS: BP 150/97; PULSE 100; RESP 26; TEMP 37; O2SAT 96
[2018-08-04] MEDS: Normal Saline Flush 10 ML SYR IVP ×3 (06:52→13:53)
[2018-08-04 07:11] LABS: Abs Immature Grans 0.03 k/cumm (0.0-0.09); Absolute Basophil Count 0.04 k/cumm (0.0-0.2); Absolute Eosinophil Count 0.71 k/cumm (0.0-0.7); Absolute Lymphocyte Count 1.82 k/cumm (1.2-3.4); Absolute Monocyte Count 0.77 k/cumm (0.11-0.7); Absolute Neutrophil Count 5.83 k/cumm (1.2-6.7); Basophils % 0.4; Eosinophils % 7.7; HGB 8.5 g/dL (12.0-15.5); Immature Grans % 0.3; Lymphocytes % 19.8; Mean Corp. HGB Concentration 29.3 g/dL (32.0-36.0); Mean Corpuscular Hemoglobin 24.3 pg (27.0-33.0); Mean Corpuscular Volume 82.9 fL (80-95); Mean Platelet Volume 10.9 fL (8.0-11.0); Monocytes % 8.4; Neutrophils % 63.4; Platelet Count 432 x1000/uL (130-400); RBC Distribution Width 18.7 % (11.7-14.6)
[2018-08-04 07:19] LABS: Anion Gap 6.8 mmol/L (3-11); BUN 17 mg/dL (7-18); CO2 30.2 mmol/L (21.0-32.0); CREATININE 0.79 mg/dL (0.55-1.02); Chloride 106 mmol/L (98-107); Glucose 122 mg/dL (70-100); Magnesium 1.7 mg/dL (1.8-2.4); Potassium 3.8 mmol/L (3.5-5.1); Sodium 143 mmol/L (136-145)
[2018-08-04 07:30] VITALS: BP 151/96; PULSE 99; RESP 20; TEMP 37.1; O2SAT 96
[2018-08-04] MEDS: clonazePAM 1 MG TAB PO ×2 (08:40→20:45)
[2018-08-04] MEDS: amLODIPine 5 MG TAB PO (08:40)
[2018-08-04] MEDS: Cyanocobalamin 500 MCG TAB 1000 MCG NG (08:40)
[2018-08-04] MEDS: Ascorbic Acid 500 MG TAB NG ×2 (08:52→20:45)
[2018-08-04] MEDS: Methimazole 5 MG TAB UD (08:52)
[2018-08-04] MEDS: Memantine 5 MG TAB 10 MG UD ×2 (08:52→20:45)
[2018-08-04] MEDS: Folic Acid 1 MG TAB NG (08:52)
[2018-08-04] MEDS: Loperamide 2 MG CAP UD (08:52)
[2018-08-04] MEDS: Normal Saline Flush 10 ML SYR 20 ML IVP ×3 (08:53→20:45)
[2018-08-04] MEDS: Enoxaparin 40 MG/0.4 ML SYR SC (08:53)
[2018-08-04] MEDS: Pantoprazole 40 MG VIAL IVP (08:53)
[2018-08-04] MEDS: Nystatin POWDER 60 GM JAR TP ×2 (08:54→21:09)
--- NOTE | 2018-08-04 10:58 | W.SPEECHEVAL ---
Date of service: 08/04/18 Time of Service: 10:00 Speech Therapy Evaluation Note: REFERRING PROVIDER: Dr. Sigala BACKGROUND This is a 63 year old Caucasion left-handed female s/p PEG tube placement (07/19/18) for whom a second attempt at a swallowing eval was requested in order to assess for swallow competency required for an outpatient esophageal manometry procedure. The previous attempt on 07/31/18 failed due to the patient's refusal to swallow any boluses. PMH: schizophrenia, developmental delay, HTN, GERD. OBJECTIVE Nursing reports:- T: 37.1 - O2 sat: 96% on RA - LS: CTA and diminished bilaterally The patient (pt) has her sister in the room with her. Her sister states that she gave the pt a pep talk regarding participation in this swallow eval. The pt is sitting in her porfirio-chair and makes good direct eye contact with me and gives a delayed verbal greeting. She is A & o X 4 and able to follow 2-step directions. Oral Sensorimotor Exam The pt has her own dentition but is partially edentulous on the lower ridge. Some of her teeth are chipped or broken but she denies any dental pain. Oral hygiene is fair. Oral senstion is WNL bilaterally (B) for buccal, labial and lingual areas. Smile is symmetrical. Inconsistent mild lingual deviation on protrusion is seen in a setting of good excursion. Lingual lateralization is WNL-B, however, lingual rapid alternating movements are replaced with lingual superior-inferior movements. Mandibular lateralization is WNL-B. Velopharyngeal elevation is mildly-moderately decreased B. Volitional cough is mildly-moderately decreased but volitional throat-clear is WNL. Speech intelligibility to this familiar listener in a setting of mild background noise is 100%. Vocal intensity and quality are both WNL. Swallowing - Honey-thick liquid: Good bolus control; mildly delayed posterior oral transit (POT); no suraj signs/symptoms (s/s) aspiration/penetration (A/P); oral clearance 100%; no oral escape. These results are true for both single and consecutive swallows by cup. It should be noted that the pt reports a stuck feeling and points to the level of the UES. She denies any globus and any reflux sensations at the level of the distal, mid and proximal esophagus. - [place]-thick liquid: Results are the same as for Honey-thick liquid and are true for both single and consecutive swallows by cup and straw. Again, the pt reports a UES globus sensation but no esophageal sensations. - Thin liquid: Results are the same as for [place]-thick liquid, including sensations. - Puree food: Good bolus control; mildly delayed POT; no suraj s/s A/P; oral clearance 100%; no oral escape. Continued reporting of UES globus sensation,but no esophageal sensations. - Mechanically Altered food: Good bolus control and mastication quality; POT mildly delayed; no suraj s/s A/P; oral clearance 100%; no oral escape. Continued reporting of UES globus sensation, but no esophageal sensations. - Dysphagia Advanced food: Use of significantly increased mastication time but this does result in good mastication quality. Bolus control & POT both WNL. No suraj s/s A/P. Oral clearance 100%. No oral escape. Continued UES globus sensation but no esophageal sensations. Pt observed to self-feed using dominant LUE and regular utensil. It should be noted that some time after the period of p.o. intake is over, pt begins to show a repeated dry cough. Vocal quality is WNL. She is unable to say what she thinks is causing the cough. INTERPRETATION The pt shows the following: mild oral-prep dysphagia secondary to partial edentulousness, no clinical s/s of pharyngeal dysphagia; severe esophageal dysphagia likely secondary to previously diagnosed esophageal dysmotility (Ba+ swallow x-ray 07/11/18). She is now willing to swallow various p.o. consistencies, but continues to be at risk of aspiration of refluxed material. RECOMMENDATIONS 1. Continue n.p.o. status with nutrition/hydration/medication via PEG tube. 2. No speech therapy is indicated at this time. Thank you for referring this pt.
[2018-08-04 11:00] VITALS: BP 132/96; PULSE 99; RESP 16; TEMP 37.4; O2SAT 96
[2018-08-04] MEDS: Magnesium Oxide 400 MG TAB NG (11:02)
[2018-08-04] MEDS: Potassium Chloride Liquid 20 MEQ PKT NG (11:02)
[2018-08-04] MEDS: Ferrous Sulfate 44 MG/ML Liquid 325 MG NG ×2 (11:13→21:08)
--- NOTE | 2018-08-04 12:30 | PT.INTREAT ---
Date of service: 08/04/18 Time of Service: 12:30 PT Notes Inpatient Physical Therapy Treatment Note [facility] Date: 08/04/18 PRECAUTIONS: Fall SUBJECTIVE: Patient states that she is feeling good today, and she is agreeable to getting up to the recliner chair. OBJECTIVE: PAIN: Complains of pain BED MOBILITY/TRANSFERS Rolling L/R: Min A Supine-sit: S Sit-supine: S Sit-stand: SBA with STEDY from bed; Min A with STEDY from chair Stand-sit: CGA with STEDY Bed-Chair: STEDY Chair-bed: STEDY GAIT Assistive Device: STEDY Weight bearing: As tolerated Assist: SBA Distance: Stood in STEDY x2 minutes THEREX: Patient completed a global strengthening program in the a.m., while seated in chair, as per flow sheet. Patient completed a global strengthening program in p.m., while standing and STEDY, and in supine and side-lying positions in bed, as per flow sheet. Patient tolerated a slight progression in her program today, modifications made to repetitions are noted on flow sheet. ASSESSMENT: Patient tolerated session well without complaint. Patient was able to demonstrate a progression in her ther ex for global strengthening, as well as standing tolerance and STEDY. Patient would benefit from continued strengthening as well as gait and transfer training for improved activity tolerance as well as improved mobility. PLAN: Continue with PTs POC TREATMENT CODE/TIME: Session 1: 40 minutes; [id number], [id number] Session 2: 20 minutes; [id number]
--- NOTE | 2018-08-04 12:45 | PTTR_ITS ---
Date of service: 08/04/18 Time of Service: 12:30 PT Notes Inpatient Physical Therapy Treatment Note [facility] Date: 08/04/18 PRECAUTIONS: Fall SUBJECTIVE: Patient states that she is feeling good today, and she is agreeable to getting up to the recliner chair. OBJECTIVE: PAIN: Complains of pain BED MOBILITY/TRANSFERS Rolling L/R: Min A Supine-sit: S Sit-supine: S Sit-stand: SBA with STEDY from bed; Min A with STEDY from chair Stand-sit: CGA with STEDY Bed-Chair: STEDY Chair-bed: STEDY GAIT Assistive Device: STEDY Weight bearing: As tolerated Assist: SBA Distance: Stood in STEDY x2 minutes THEREX: Patient completed a global strengthening program in the a.m., while seat ed in chair, as per flow sheet. Patient completed a global strengthening program in p.m., while standing and STEDY, and in supine and side-lying positions in bed, as per flow sheet. Patient tolerated a slight progression in her program today, modifications made to repetitions are noted on flow sheet. ASSESSMENT: Patient tolerated session well without complaint. Patient was able to demonstrate a progression in her ther ex for global strengthening, as well as standing tolerance and STEDY. Patient would benefit from continued strengthening as well as gait and transfer training for improved activity tolerance as well as improved mobility. PLAN: Continue with PTs POC TREATMENT CODE/TIME: Session 1: 40 minutes; [id number], [id number] Session 2: 20 minutes; [id number]
[2018-08-04] MEDS: Furosemide 20 MG/2 ML VIAL IVP (13:54)
[2018-08-04 15:14] VITALS: BP 145/99; PULSE 96; RESP 17; TEMP 36.7; O2SAT 97
--- NOTE | 2018-08-04 16:17 | OT.INIE ---
Occupational Therapy Notes Inpatient Occupational Therapy Evaluation Date: 08/04/18 Referring Doctor:Dr. Sigala OT Orders: a Precautions: Fall, standard precautions PATIENT PROFILE/ADMITTING DIAGNOSIS: Pt is a 63 year old female who was admitted with c/o weakness, and found in the ER to be hypotensive last month. She has had a prolonged hospital stay, with a decline in medical status resulting in transfer to the ICU and is now being managed on Med Surg. Past Medical History:cognitive dysfunction; HTN; GERD; schizophrenia; Graves disease; esophageal stricture s/p dilation Social History/Home Situation:Prior to admission to [facility] she lived alone in [place] at an assisted living facility. Lives on second floor with elevator or 14 steps. Has family support by her sisters and care also provided by [employer]. Her baseline level of function for ADLs was (I). Equipment owned/DME: [employer] SUBJECTIVE: Pt was sitting in bed when OT arrived. She was agreeable to OT consult and states that she is waiting to meet with the doctor and her sister this morning. OBJECTIVE: General Observation: IV not connected (L) UE, Bell, PEG tube Mental Status: Alert and aware of place and name Pain: no c/o pain ROM: RUE Shoulder AROM to 110*, wrist and hand WNL L UE Shoulder AROM to 110*, wrist and hand WNL STRENGTH: RUE 4/5 throughout globally LUE 4/5 throughout globally FUNCTIONAL MOBILITY/ADLS: Transfers Rolling L/R: Min A Supine-sit: S Sit-supine: S Sit-stand: SBA with STEDY from bed; Min A with STEDY from chair Stand-sit: CGA with STEDY Bed-Chair: STEDY Transfer Chair-bed: STEDY transfer BATHING Sitting in bed with max (A) set up Bathing UE (I) wash UE with min vc Bathing LE (I) was to knees, pt denies lower legs and feet at todays session. DRESSING Sitting in bed Dressing UE (I) [facility] gown with min vc for pulling up arm sleeves. Dressing LE NT GROOMING Sitting in chair with max (A) set up, pt was (I) brushing her teeth and combing her hair. Needed vc for opening tooth paste. TOILETING Pt soiled her bed during OT session. She reported that she had no idea that she even had to go to the bathroom. EATING NT BALANCE: Static sitting Normal Dynamic Sitting Good Static Standing Good Dynamic Standing Fair-good SPECIAL TESTS: Daily Activity Limitations Standardized Measure [facility] AM -PAC ?6 clicks? Daily Activity Inpatient Short Form: Raw score: 19 CMS score: 43% INFORMED CONSENT/EDUCATION: Pt instructed in purpose of OT Consult and plan of care. ASSESSMENT: Patient is a 63-year-old female referred to occupational therapy services with diagnosis of deconditioned, long hospitalization. Patient presents with clinical signs and symptoms consistent with dx, as demonstrated by the following impairment level findings/functional limitations: Decreased AROM of (B) UE, decreased strength in (B) UE, decreased functional activity tolerance, decreased (I) for functional mobilitys to perform ADLs/IADLs, decreased (I) in ADLs, decreased (I) in standing ADLs and use of toilet for toileting routine. AMPAC score 19, CMS score 43% Patient is assessed as a high [id number] complexity based on the following: History: See Above Examination: See Above Presentation: Evolving Decision Making: AMPAC score 19, CMS score 43% GOALS Goals x1 week 1. Grooming standing at sink with FWW, SBA pt will be able to perform teeth brushing and brushing her hair (I). 2. Dressing sitting in chair with mod (A) for (B) socks pt will be able to (I) don and doff pants and shirt. 3. Bathing standing at sink with CGA, FWW pt will be able to perform bathing routing with mod (A) lower legs. 4. Toileting pt will be able to perform toileting routine on toilet with min (A) 5. Eating (I) PLAN OF CARE/TREATMENT PLAN: 1x/day, 5 days/ week x 1week Initiate Occupational Therapy Services for bathing, dressing, grooming, toileting, eating, transfer training. DISCHARGE RECOMMENDATIONS To SNF for further rehabilitation and assistance when medically cleared per MD. TREATMENT TIME/MINUTES/CODES 50520, [id number], 30 minutes (09:20) [facility]
--- NOTE | 2018-08-04 16:20 | OTIE_ITS ---
Occupational Therapy Notes Inpatient Occupational Therapy Evaluation Date: 08/04/18 Referring Doctor:Dr. Sigala OT Orders: a Precautions: Fall, standard precautions PATIENT PROFILE/ADMITTING DIAGNOSIS: Pt is a 63 year old female who was admitted with c/o weakness, and found in the ER to be hypotensive last month. She has had a prolonged hospital stay, with a decline in medical status resulting in transfer to the ICU and is now being managed on Med Surg. Past Medical History:cognitive dysfunction; HTN; GERD; schizophrenia; Graves disease; esophageal stricture s/p dilation Social History/Home Situation:Prior to admission to [facility] she lived alone in [place] at an assisted living facility. Lives on second floor with elevator or 14 steps. Has family support by her sisters and care also provided by [employer]. Her baseline level of function for ADLs was (I). Equipment owned/DME: [employer] SUBJECTIVE: Pt was sitting in bed when OT arrived. She was agreeable to OT consult and states that she is waiting to meet with the doctor and her sister this morning. OBJECTIVE: General Observation: IV not connected (L) UE, Bell, PEG tube Mental Status: Alert and aware of place and name Pain: no c/o pain ROM: RUE Shoulder AROM to 110*, wrist and hand WNL L UE Shoulder AROM to 110*, wrist and hand WNL STRENGTH: RUE 4/5 throughout globally LUE 4/5 throughout globally FUNCTIONAL MOBILITY/ADLS: Transfers Rolling L/R: Min A Supine-sit: S Sit-supine: S Sit-stand: SBA with STEDY from bed; Min A with STEDY from chair Stand-sit: CGA with STEDY Bed-Chair: STEDY Transfer Chair-bed: STEDY transfer BATHING Sitting in bed with max (A) set up Bathing UE (I) wash UE with min vc Bathing LE (I) was to knees, pt denies lower legs and feet at todays session. DRESSING Sitting in bed Dressing UE (I) [facility] gown with min vc for pulling up arm sleeves. Dressing LE NT GROOMING Sitting in chair with max (A) set up, pt was (I) brushing her teeth and combing her hair. Needed vc for opening tooth paste. TOILETING Pt soiled her bed during OT session. She reported that she had no idea that she even had to go to the bathroom. EATING NT BALANCE: Static sitting Normal Dynamic Sitting Good Static Standing Good Dynamic Standing Fair-good SPECIAL TESTS: Daily Activity Limitations Standardized Measure [facility] AM -PAC ?6 clicks? Daily Activity Inpatient Short Form: Raw score: 19 CMS score: 43% INFORMED CONSENT/EDUCATION: Pt instructed in purpose of OT Consult and plan of care. ASSESSMENT: Patient is a 63-year-old female referred to occupational therapy services with diagnosis of deconditioned, long hospitalization. Patient presents with clinical signs and symptoms consistent with dx, as demonstrated by the following impairment level findings/functional limitations: Decreased AROM of (B) UE, decreased strength in (B) UE, decreased functional activity tolerance, decreased (I) for functional mobilitys to perform ADLs/IADLs, decreased (I) in ADLs, decreased (I) in standing ADLs and use of toilet for toileting routine. AMPAC score 19, CMS score 43% Patient is assessed as a high [id number] complexity based on the following: History: See Above Examination: See Above Presentation: Evolving Decision Making: AMPAC score 19, CMS score 43% GOALS Goals x1 week 1. Grooming standing at sink with FWW, SBA pt will be able to perform teeth brushing and brushing her hair (I). 2. Dressing sitting in chair with mod (A) for (B) socks pt will be able to (I) don and doff pants and shirt. 3. Bathing standing at sink with CGA, FWW pt will be able to perform bathing routing with mod (A) lower legs. 4. Toileting pt will be able to perform toileting routine on toilet with min (A) 5. Eating (I) PLAN OF CARE/TREATMENT PLAN: 1x/day, 5 days/ week x 1week Initiate Occupational Therapy Services for bathing, dressing, grooming, toileting, eating, transfer training. DISCHARGE RECOMMENDATIONS To SNF for further rehabilitation and assistance when medically cleared per MD. TREATMENT TIME/MINUTES/CODES 35392, [id number], 30 minutes (09:20) [facility]
--- NOTE | 2018-08-04 17:41 | PGE_ITS ---
Date of Service Date of service: 08/04/18 Time of Service: 17:30 Assessment and Plan (1) Schizophrenia: Current visit: No Status: Chronic Restarted home meds as above on 07/19. Ms. 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 Per recommendations patient was transferred to the ICU, and initiated on standing dose frequent IV Ativan - she now has improved mentation, interaction, following commands, and appears at baseline mental status. Had been maintained on Q4 hour oral Lorazepam, change to equivalent dosing long-acting benzo with Clonazepam yesterday, decreased dose today following discussion with psych. Plan will be for a very slow taper planned over a 6 month course. (2) Altered mental status: Current visit: Yes Status: Acute Initially described as episodes of confusion, 'staring', near unresponsive state while awake, with potential post-ictal like state - then with worsening affect and verbal responsiveness that declined significantly. 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 Responded well to Benzo therapy as above, now back to baseline. EEG and MRI X2 were negative. (3) Dysphagia: Current visit: Yes Status: Acute History of benign distal esophageal stricture by EGD, s/p dilation in 2007. There was also noted Unprotected aspiration as well as large GERD with evidence of esophagitis. However, repeat EGD here normal and Barium Swallow performed this hospitalization with no evidence of stricture, but with esophageal dysmotility and retention of barium in the esophagus. Patient treated for Aspiration pneumonia now on seperate occasions - s/p PEG tube placement 07/19. Maintaining NPO status with continued Tube Feeds. Also restarted home meds via Peg Tube, with continued aspiration precautions. Due to hypotension from trial of ativan discontinued short acting Cardizem and initiated QHS Imipramine. Also on treatment of GERD with PPI therapy. Will ultimately need outpatient manometry. Of note, had been having problems with initiation of swallowing which appeared new and likely related to her altered mental status/catatonic state from withholding of her psych medications. She has undergone repeat speech evaluation and now able to initiate swallowing well, but with continued and significant discomfort after due to her Esophageal Dysmotility. (4) Esophageal dysmotility: Current visit: Yes Status: Acute Treatment as above. (5) Hypotension: Current visit: Yes Status: Resolved Initially, hypotensive to the point of requiring pressor support, and with evidence of end-organ damage with KJ and elevation in Lactate - unknown etiology. Potential Dehydration in the setting of initiation of HCTZ vs. Sepsis - although no evidence of infiltrate or acute infection initially. Does not appear to have been adrenal insufficiency, with steroids weaned off. Echo without clear cardiogenic etiology, and no persistent arrhythmias on monitor. Aspiration pneumonia/recurrent aspiration events now seem like the most likely scenario. Appears resolved. (6) Bradycardia: Current visit: No Status: Resolved Abnormally normal heart rate during initial bout of hypotension, then frankly bradycardic - reportedly had a bout of junctional rhythm as well. However, review of EKG by Cardiology/Electrophysiology with note of Sinus Bradycardia. Avoid jovan agents - also with tachycardia noted. 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 (7) Hypernatremia: Current visit: Yes Status: Resolved Now resolved. Continue Tube Feeds, and Free Water via Peg Tube. (8) KJ (acute kidney injury): Current visit: Yes Status: Resolved Creatinine stable. (9) Anemia: Current visit: Yes Status: Chronic Stable but low hgb, heme negative stool. Iron studies with low iron, low TIBC, and low ferritin. B12 normal but wit low FA. TSH normal as well. Continue PPI therapy, Ferrous sulfate and Folic Acid supplements. Added Vitamin C as well. (10) DVT prophylaxis: Current visit: Yes Status: Acute Continue Enoxaparin. (11) Advance directive on file: Current visit: Yes Status: Acute DNR/DNI. Subjective Interval history since last seen: 63-year-old woman with history of cognitive delay and Hypertension, admitted from [facility] Emergency Department with a diagnosis of Hypotension. Ms. Gardiner has a history of cognitive dysfunction, HTN, GERD, and Schizophrenia. She was initially sent to the emergency room because of several days of nonspecific weakness. In the ED she was noted to be significantly hypotensive with blood pressures in the 60s systolic, but without tachycardia. She was given fluid resuscitation and started on levophed. Initial laboratory evaluation of note for leukocytosis, low-grade pyuria (5-10 white cells), negative chest x-ray and CT of the abdomen that was unremarkable except for a known cyst in the right lower quadrant. She was then referred for admission for further evaluation and treatment. Since her admission Blood pressure eventually improved and she has remained off pressor support after recurrence of her hypotension, thought likely secondary to aspiration pneumonia/pneumonitis. Her Urine and Blood Cultures have remained negative, and her C. Diff and Fecal Leukocytes were negative as well. CT of the chest and ECHO have been normal. She did however show evidence of difficulty with swallowing, and a Barium Swallow revealed evidence of barium retention and esophageal dysmotility. Subsequent EGD was negative. Mrs. Gardiner had remained NPO and without oral meds or food for quite some time - successfully underwent PEG tube placement on 07/19 and restarted on her home medications. The Patient is an extremely pleasant and stable woman, previously highly independent and living on her own. Her mental status declined significantly from her baseline - become essentially nonverbal and not following commands. Thought to be likely catatonia psychiatry was consulted and confirmed diagnosis. She was moved to the ICU and given trial of benzodiazepine therapy with excellent success. She is now awake and alert and appears back to baseline mental status. Ms. Gardiner underwent a repeat speech evaluation with improved ability to swallow with return of her mental status, but as expected with a great deal of esophageal dysphagia and resultant discomfort given her esophageal dysmotility. She will likely need SNF for skilled rehab. No other events reported. Remains afebrile. Exam Narrative Exam Narrative: General: Patient awake at time of visit, alert and at baseline mental status. NAD. Neck: Supple CV: Regular, mildly tachycardic, S1S2, No rubs, murmurs, or gallops. Pulmonary: Mild bibasilar crackles. Abdomen: + Bowel Sounds, soft, nontender, nondistended. RLQ seroma unchanged. PEG Tube site clean. Vascular: No lower extremity edema Objective Objective Clinical Data: Abnormal lab results 08/04/18 08/04/18 Range/Units 06:33 06:33 RBC 3.50 L (4.00-5.20) m/cumm Hgb 8.5 L (12.0-15.5) g/dL Hct 29.0 L (36.0-46.0) % MCH 24.3 L (27.0-33.0) pg MCHC 29.3 L (32.0-36.0) g/dL RDW 18.7 H (11.7-14.6) % Plt Count 432 H (130-400) x1000/uL Absolute Monocytes 0.77 H (0.11-0.7) k/cumm Absolute Eosinophils 0.71 H (0.0-0.7) k/cumm Glucose 122 H (70-100) mg/dL Magnesium 1.7 L (1.8-2.4) mg/dL Vital Signs Temperature 36.7 C 08/04/18 15:14 Temperature Source Tympanic 08/04/18 15:14 Pulse 96 H 08/04/18 15:14 Pulse Rhythm Regular 08/04/18 07:30 Pulse 94 H 07/30/18 16:43 Respiratory Rate 17 08/04/18 15:14 Respiratory Effort 08/04/18 07:30 Respiratory Depth Normal 08/04/18 07:30 Respiratory Pattern Tachypnea 08/03/18 16:23 Blood Pressure 145/99 H 08/04/18 15:14 Blood Pressure Mean 115 07/30/18 16:43 Blood Pressure Position Supine 07/30/18 16:46 Pulse Oximetry 97 08/04/18 15:14 Respiratory End-tidal CO2 34 07/07/18 15:01 Oxygen Delivery Method Room Air 08/04/18 15:14 Oxygen Flow Rate 0 08/04/18 15:14 Fraction of Inspired Oxygen (FIO2) 28 07/16/18 00:30 Pain Level 0 08/04/18 04:50 Comment 08/04/18 04:50 Intake & Output 08/03/18 08/04/18 08/04/18 23:59 11:59 23:59 Intake Total 1675 / 1675 0 / 0 Output Total 1650 / 2031 350 / 1000 650 / 1000 Balance 25 / -357 -350 / -1000 -650 / -1000 Weight 96.4 kg Intake: IV 80 / 80 Oral 0 / 0 Intake, Tube Feeding Amount 1595 / 1595 Output: Urine 1650 / 2000 300 / 950 650 / 950 Output, Residual 0 / 32 50 / 50 Other: Urine Color Yellow Yellow Yellow Urine Appearance Clear Clear Clear Stool Occult Blood Negative Stool Size Small Small Stool Characteristics Soft Soft Liquid Brown Laboratory Results WBC 9.20 k/cumm (4.4-10.8) 08/04/18 06:33 RBC 3.50 m/cumm (4.00-5.20) L 08/04/18 06:33 Hgb 8.5 g/dL (12.0-15.5) L 08/04/18 06:33 Hct 29.0 % (36.0-46.0) L 08/04/18 06:33 MCV 82.9 fL (80-95) 08/04/18 06:33 MCH 24.3 pg (27.0-33.0) L 08/04/18 06:33 MCHC 29.3 g/dL (32.0-36.0) L 08/04/18 06:33 RDW 18.7 % (11.7-14.6) H 08/04/18 06:33 Plt Count 432 x1000/uL (130-400) H 08/04/18 06:33 MPV 10.9 fL (8.0-11.0) 08/04/18 06:33 Abs Immat Gran (auto) Cancelled 07/13/18 08:05 Immature Gran % 0.3 08/04/18 06:33 Neutrophils % 63.4 08/04/18 06:33 Band Neutrophils % Cancelled 07/13/18 08:05 Lymphocytes % 19.8 08/04/18 06:33 Atypical Lymphs % Cancelled 07/13/18 08:05 Monocytes % 8.4 08/04/18 06:33 Eosinophils % 7.7 08/04/18 06:33 Basophils % 0.4 08/04/18 06:33 Absolute Neutrophils 5.83 k/cumm (1.2-6.7) 08/04/18 06:33 Absolute Lymphocytes 1.82 k/cumm (1.2-3.4) 08/04/18 06:33 Absolute Monocytes 0.77 k/cumm (0.11-0.7) H 08/04/18 06:33 Absolute Eosinophils 0.71 k/cumm (0.0-0.7) H 08/04/18 06:33 Absolute Basophils 0.04 k/cumm (0.0-0.2) 08/04/18 06:33 Metamyelocytes Cancelled 07/13/18 08:05 Myelocytes Cancelled 07/13/18 08:05 Promyelocytes Cancelled 07/13/18 08:05 Nucleated RBCs Cancelled 07/13/18 08:05 Differential Comment Rbc morph reviewed 07/26/18 05:47 Other Cell Type Cancelled 07/13/18 08:05 RBC Morphology See below 07/26/18 05:47 Polychromasia Present 07/17/18 06:35 Hypochromasia 1+ 07/26/18 05:47 Poikilocytosis 1+ 07/17/18 06:35 Basophilic Stippling Cancelled 07/13/18 08:05 Anisocytosis 2+ 07/17/18 06:35 Microcytosis 2+ 07/26/18 05:47 Macrocytosis Cancelled 07/13/18 08:05 Spherocytes Cancelled 07/13/18 08:05 Target Cells Cancelled 07/13/18 08:05 Tear Drop Cells Cancelled 07/13/18 08:05 Ovalocytes 2+ 07/26/18 05:47 Stomatocytes Cancelled 07/13/18 08:05 Telles-Bowen Bodies Cancelled 07/13/18 08:05 Girma Cells Cancelled 07/13/18 08:05 Acanthocytes (Spur) Cancelled 07/13/18 08:05 Schistocytes 1+ 07/26/18 05:47 D-Dimer 1329 ng/mlFEU (<500) H 07/07/18 21:15 Sodium 143 mmol/L (136-145) 08/04/18 06:33 Potassium 3.8 mmol/L (3.5-5.1) 08/04/18 06:33 Chloride 106 mmol/L (98-107) 08/04/18 06:33 Carbon Dioxide 30.2 mmol/L (21.0-32.0) 08/04/18 06:33 Anion Gap 6.8 mmol/L (3-11) 08/04/18 06:33 BUN 17 mg/dL (7-18) 08/04/18 06:33 Creatinine 0.79 mg/dL (0.55-1.02) 08/04/18 06:33 Estimated GFR/1.73 m2 >= 60.00 (mL/min/1.73m2) 08/04/18 06:33 Glucose 122 mg/dL (70-100) H 08/04/18 06:33 Lactate 1.0 mmol/L (0.6-1.4) 07/06/18 07:20 Calcium 9.0 mg/dL (8.5-10.1) 08/04/18 06:33 Magnesium 1.7 mg/dL (1.8-2.4) L 08/04/18 06:33 Iron 20 ug/dL (50-175) L 07/25/18 16:13 TIBC 235 ug/dL (250-450) L 07/25/18 16:13 Transferrin % Sat 9 % (15-50) L 07/25/18 16:13 Ferritin 35 ng/mL (8-388) 07/25/18 16:13 Total Bilirubin 0.3 mg/dL (0.2-1.0) 07/12/18 05:50 Conjugated Bilirubin 0.10 mg/dL (0.00-0.20) 07/12/18 05:50 AST 24 U/L (15-37) 07/12/18 05:50 ALT 47 U/L (12-78) 07/12/18 05:50 Alkaline Phosphatase 65 U/L (46-116) 07/12/18 05:50 Ammonia < 10 umol/L (11-32) L 07/15/18 10:20 Troponin I 0.02 ng/mL (0.00-0.06) 07/08/18 05:00 NT-Pro-B Natriuret Pep 744 pg/mL (-299) H 07/31/18 19:52 Total Protein 4.6 g/dL (6.4-8.2) L 07/12/18 05:50 Albumin 2.2 g/dL (3.4-5.0) L 07/12/18 05:50 Lipase 252 U/L (73-393) 07/04/18 13:15 Vitamin B12 471 pg/mL (193-986) 07/25/18 16:13 Folate 8.0 ng/mL (8.6-20.0) L 07/25/18 16:13 Procalcitonin <0.10 ng/mL (<or=1.5) 07/08/18 06:24 Calcitonin Cancelled 07/08/18 06:24 TSH 1.09 uIU/mL (0.358-3.74) 07/06/18 07:20 Urine Color Yellow (Yellow) 07/14/18 13:05 Urine Clarity Clear 07/14/18 13:05 Urine pH 5.0 (5-8) 07/14/18 13:05 Ur Specific [place] <= 1.005 (1.005-1.025) 07/14/18 13:05 Urine Protein Negative mg/dL (Negative) 07/14/18 13:05 Urine Ketones Negative mg/dL (Negative) 07/14/18 13:05 Urine Blood Small (Negative) H 07/14/18 13:05 Urine Nitrite Negative (Negative) 07/14/18 13:05 Urine Bilirubin Negative (Negative) 07/14/18 13:05 Urine Urobilinogen 0.2 EU/dL (Up TO 0.2) 07/14/18 13:05 Ur Leukocyte Esterase Negative (Negative) 07/14/18 13:05 Urine RBC 3-5 (0-2) H 07/14/18 13:05 Urine WBC 0-2 HPF (0-5) 07/14/18 13:05 Ur Epithelial Cells Rare HPF (Negative) 07/14/18 13:05 Urine Crystals Rare amorphous HPF (Negative) 07/14/18 13:05 Urine Bacteria Rare HPF (Negative) 07/14/18 13:05 Urine Casts Negative LPF (Negative) 07/14/18 13:05 Urine Mucus Trace (Negative) 07/14/18 13:05 Ur Culture Indicated? C&s done as ordered 07/14/18 13:05 Urine Glucose 100 mg/dL (Negative) 07/14/18 13:05 Stool Campylobacter PCR See comments 07/06/18 12:45 Stool Salmonella PCR See comments 07/06/18 12:45 Stool Shigella PCR See comments 07/06/18 12:45 Vancomycin Trough 18.9 ug/mL (10.0-20.0) 07/20/18 06:17 Shiga Toxin (PCR) See comments 07/06/18 12:45 Path Cons Comment See comment 07/06/18 07:20 Miscellaneous Test Cancelled 07/08/18 06:24
--- NOTE | 2018-08-04 17:41 | PSYCO_ITS ---
Date of service: 08/04/18 Time of Service: 13:08 History of Present Illness Narrative: Events since initial consultation/last note: Overnight events: no concerns. PT visit this morning and speech eval this morning Medications: po ativan 1mg q4hrs was changed to clonazepam 1mg tid. Labs last 24 hours: Subjective: Mood: good sleep good cognition I have short-term memory problems denies is bothering her. Pain none. She feels that she still has something in there when she points to her throat. Feels ready to take a nap after activities this morning. Endorses having a swallow eval today and reports that PT came but she was not yet able to walk. She reports that Tiny came to visit and do a lot of papers. Papers were for a skilled nursing. She is aware she will go to a skilled nursing at discharge. She said she feels okay about this. medical team reports her being much more bright, spontaneous, and interactive, seeming back to her baseline. REVIEW OF SYSTEMS: Constitutional: denies pain Musculoskeletal/neuro: feels weak Psych: see above MENTAL STATUS EXAM: Constitutional: appears alert, relaxed, comfortable Attitude: cooperative Psychomotor: no retardation or agitation Speech: slow, quiet volume and normal prosody. Slight articulation problems Associations: no looseness Thought process: linear, logical, goal directed, concrete Thought content without psychosis, delusions, obsessions No suicidal or homicidal ideations Hallucinations denied Mood: good Affect: full, appropriately reactive, calm Attention/Concentration: groslsy intact Judgment/insight: fair/fair Oriented x 4 Language appropriate to age and education Fund of knowledge appropriate to age and education Memory intact to recent and remote events Other cognitive testing: none Assessment and Plan (1) Catatonia associated with another mental disorder: Current visit: Yes Status: Acute Christie Gardiner is a 63 year old female with past psychiatric history of schizophrenia and history of catatonia when antipsychotics were stopped, who was admitted to [facility] on 07/04/18 with worsening weakness and found to be hypotensive and thought possibly to have aspiration pneumonia. A dysphagia was discovered and worsened over the course of hospitalization requiring PEG tub placement for feeds and medications. Earlier in this hospital course neurology was consulted to evaluate staring spells (no focal neurological disorder was found), and as dysphagia worsened all psychotropics were stopped (reasonable) but mental status acutely worsened at the same time. Psychiatry consult was requested to help assess altered mental status which did not improve even after olanzapine was restarted. The symptom of catatonia was suspected by history and clinical exam which responded to an ativan challenge. I suspect a mild fluctuating catatonia was present even prior to admission per family report of stereotypic behavior as patient was reporting not feeling well. Worsening of her medical status and acute cessation of olanzapine probably significantly worsened catatonia. Catatonia appears resolved and was transitioned from IV ativan to PO ativan and now to clonazepam 1mg tid. She might be having a bit of sedation on clonazepam tid and a trial to bid dosing is worthwhile while monitoring for returning catatonia symptoms. Recommendations: - reduce clonazepam to 1mg twice daily - continue olanzapine 10mg daily I will continue to follow her while medications are being adjusted. Visit Statistics Total Visit Minutes: 25 Visit Time Allocation >50% of face to face visit spent in counseling (Extensive teaching, explanation and instructions. Counseling as appropriate. Review of plans, and discussion concerning medical problems dealt with at this visit. Discussion of benefits/risks of treatment, anticipated course of events, potential medication side effects, options, alternatives, and follow up plans. Questions were solicited and answered, and the patient verbalized understanding.), and/or coordination of care. (2) Schizophrenia: Current visit: No Status: Chronic [facility] Medical History Schizophrenia (Chronic) Cognitive developmental delay (Acute) Hypertension (Chronic) Hypothyroidism (Chronic) Social History household members: none current occupational status: disabled Smoking and Tabacco status: Never alcohol intake: never substance use type: does not use additional social history: Lives alone. Results Last Vital Signs Temp 36.7 C 08/04/18 15:14 Pulse 96 H 08/04/18 15:14 Resp 17 08/04/18 15:14 BP 145/99 H 08/04/18 15:14 Pulse Ox 97 08/04/18 15:14 Labs : 08/05/18 06:35 08/05/18 06:35 Laboratory Results - last 24 hr 08/04/18 08/04/18 06:33 06:33 WBC 9.20 RBC 3.50 L Hgb 8.5 L Hct 29.0 L MCV 82.9 MCH 24.3 L MCHC 29.3 L RDW 18.7 H Plt Count 432 H MPV 10.9 Immature Gran % 0.3 Neutrophils % 63.4 Lymphocytes % 19.8 Monocytes % 8.4 Eosinophils % 7.7 Basophils % 0.4 Absolute Neutrophils 5.83 Absolute Lymphocytes 1.82 Absolute Monocytes 0.77 H Absolute Eosinophils 0.71 H Absolute Basophils 0.04 Sodium 143 Potassium 3.8 Chloride 106 Carbon Dioxide 30.2 Anion Gap 6.8 BUN 17 Creatinine 0.79 Estimated GFR/1.73 m2 >= 60.00 Glucose 122 H Calcium 9.0 Magnesium 1.7 L
--- NOTE | 2018-08-04 18:16 | PDOC.CMPRO ---
Care Management Progress Note S/O: Christie passed her speech evaluation today, she also worked successfully with PT and received much positive praise for her efforts. CM notified [employer] Guardianship paperwork for Christie, Tiny and Netta. PASSR II RN called to report no screening will be needed for Christie's short term stay. Referrals faxed to [facility], [facility] and [facility]; CM continues to seek placement and provide updated clinical information. A: 63 yo disabled female admitted for hypotension, aspiration pneumonia now with a PEG tube placement. P: SNF coordination has begun in anticipation of medical stabilization, Christie continues to work with S/T, Psychiatry, P/T, and OT. Christie will require follow up for outpatient manometry per MD. CM will continue to provide support ongoing discharge planning and disposition.
--- NOTE | 2018-08-04 18:24 | CMPROGNOTE_ITS ---
Care Management Progress Note S/O: Christie passed her speech evaluation today, she also worked successfully with PT and received much positive praise for her efforts. CM notified Voluntary Guardianship paperwork for Christie, Tiny and Netta. PASSR II RN called to report no screening will be needed for Christie's short term stay. Referrals faxed to [facility], [facility] and [facility]; CM continues to seek placement and provide updated clinical information. A: 63 yo disabled female admitted for hypotension, aspiration pneumonia now with a PEG tube placement. P: SNF coordination has begun in anticipation of medical stabilization, Christie continues to work with S/T, Psychiatry, P/T, and OT. Christie will require follow up for outpatient manometry per MD. CM will continue to provide support ongoing discharge planning and disposition.
[2018-08-04 19:57] VITALS: BP 168/118; PULSE 94; RESP 19; TEMP 36.7; O2SAT 94
[2018-08-04] MEDS: Donepezil 5 MG TAB 10 MG UD (22:16)
[2018-08-04] MEDS: OLANZapine 5 MG TAB 10 MG UD (22:16)
[2018-08-05] VITALS (8 sets, daily range): BP systolic 120–165; BP diastolic 84–112; PULSE 88–101; RESP 18–20; TEMP 36.4–37.2; O2SAT 95–98
[2018-08-05] MEDS: guaiFENesin/D-METHORPHAN HB 5 ML CUP UD ×2 (05:00→21:11)
[2018-08-05 07:12] LABS: Abs Immature Grans 0.02 k/cumm (0.0-0.09); Absolute Basophil Count 0.05 k/cumm (0.0-0.2); Absolute Eosinophil Count 0.57 k/cumm (0.0-0.7); Absolute Monocyte Count 0.78 k/cumm (0.11-0.7); Absolute Neutrophil Count 4.98 k/cumm (1.2-6.7); Basophils % 0.6; Eosinophils % 7.1; HCT 30.9 % (36.0-46.0); HGB 9.2 g/dL (12.0-15.5); Immature Grans % 0.3; Mean Corp. HGB Concentration 29.8 g/dL (32.0-36.0); Mean Corpuscular Hemoglobin 24.7 pg (27.0-33.0); Mean Corpuscular Volume 82.8 fL (80-95); Mean Platelet Volume 10.8 fL (8.0-11.0); Monocytes % 9.8; Neutrophils % 62.2; Platelet Count 445 x1000/uL (130-400); RBC 3.73 m/cumm (4.00-5.20); RBC Distribution Width 18.8 % (11.7-14.6)
[2018-08-05 07:25] LABS: Anion Gap 6.9 mmol/L (3-11); BUN 18 mg/dL (7-18); CO2 34.1 mmol/L (21.0-32.0); Calcium 9.2 mg/dL (8.5-10.1); Chloride 105 mmol/L (98-107); Glucose 131 mg/dL (70-100); Potassium 3.5 mmol/L (3.5-5.1); Sodium 146 mmol/L (136-145)
[2018-08-05] MEDS: Enoxaparin 40 MG/0.4 ML SYR SC (08:55)
[2018-08-05] MEDS: Pantoprazole 40 MG VIAL IVP (08:57)
[2018-08-05] MEDS: Normal Saline Flush 10 ML SYR 20 ML IVP ×2 (08:57→20:28)
[2018-08-05] MEDS: Cyanocobalamin 500 MCG TAB 1000 MCG NG (08:58)
[2018-08-05] MEDS: Methimazole 5 MG TAB 10 MG UD (08:58)
[2018-08-05] MEDS: Loperamide 2 MG CAP UD (08:59)
[2018-08-05] MEDS: Ascorbic Acid 500 MG TAB NG ×2 (08:59→20:27)
[2018-08-05] MEDS: clonazePAM 1 MG TAB PO ×2 (08:59→20:27)
[2018-08-05] MEDS: Folic Acid 1 MG TAB NG (08:59)
[2018-08-05] MEDS: Memantine 5 MG TAB 10 MG UD ×2 (08:59→20:27)
[2018-08-05] MEDS: amLODIPine 5 MG TAB PO (09:00)
[2018-08-05] MEDS: Ferrous Sulfate 44 MG/ML Liquid 325 MG NG ×2 (09:01→20:25)
[2018-08-05] MEDS: Nystatin POWDER 60 GM JAR TP ×2 (09:02→20:29)
--- NOTE | 2018-08-05 09:33 | PDOC.CMPRO ---
Care Management Progress Note S/O: Christie remains pleasant in interaction and is motivated to return to her baseline; working well with Speech, PT, and OT. CM will continue to follow. CM faxed updated clinicals to [facility], [facility] and [facility]; CM continues to seek placement and provide updated clinical information. [facility]: Reported no female bed availability anticipated. [facility]: Under Review [facility]: Under Review A: 63 yo disabled female admitted for hypotension, aspiration pneumonia now with a PEG tube placement. P: SNF coordination continues in anticipation of medical stabilization, Christie continues to work with S/T, Psychiatry, P/T, and OT. Christie will require follow up for outpatient manometry per MD. CM will continue to provide support ongoing discharge planning and disposition.
--- NOTE | 2018-08-05 09:39 | CMPROGNOTE_ITS ---
Care Management Progress Note S/O: Christie remains pleasant in interaction and is motivated to return to her baseline; working well with Speech, PT, and OT. CM will continue to follow. CM faxed updated clinicals to [facility], [facility]; CM continues to seek placement and provide updated clinical information. [facility]: Reported no female bed availability anticipated. [facility]: Under Review [facility]: Under Review A: 63 yo disabled female admitted for hypotension, aspiration pneumonia now with a PEG tube placement. P: SNF coordination continues in anticipation of medical stabilization, Christie continues to work with S/T, Psychiatry, P/T, and OT. Christie will require follow up for outpatient manometry per MD. CM will continue to provide support ongoing discharge planning and disposition.
--- NOTE | 2018-08-05 11:08 | OT.INTREAT ---
Date of service: 08/05/18 Time of Service: 10:35 Occupational Therapy Notes Occupational Therapy Inpatient Treatment Note Date: 08/05/18 PRECAUTIONS: Fall, standard SUBJECTIVE: Pt was sitting in bed when OT arrived. She reports that nursing came in and cleaned her up already washing her back, arms and chest. Pt reports that she is clean and does not feel like she needs to wash up anymore because nursing already said she was clean. She is agreeable to OT session to brush her teeth. She reports that she is tired this morning because she worked with PT for a long time. OBJECTIVE: PAIN:no c/o pain. GROOMING: Sitting in bed pt was able to open and close tooth paste, and brush her teeth (I). She required min vc for spitting and to make sure all of the left over tooth paste was out of her mouth. ASSESSMENT/PLAN: OT will plan to see pt when PT is present at next session. OT feels that pt will benefit more so that pt won't be as tired. Pt has demonstrated increased (I). OT will continue to work towards goals of bring more (I) with ADL routine. TREATMENT CODES/TIME: 18063, 10 minutes (10:35) Ashtyn Alvarez OTR/[facility]
--- NOTE | 2018-08-05 13:41 | PT.INTREAT ---
Date of service: 08/05/18 Time of Service: 13:42 PT Notes Inpatient Physical Therapy Treatment Note [facility] Date: 08/05/18 PRECAUTIONS: Fall SUBJECTIVE: Christie is agreeable to participating in PT, and reports that she got good rest last night. OBJECTIVE: PAIN: No c/o pain BED MOBILITY/TRANSFERS Supine-sit: S Sit-supine: S Sit-stand: SBA with STEDY in a.m.; CGA with 4WW in p.m. Stand-sit: SBA with STEDY in a.m.; CGA with 4WW in p.m. Bed-chair: STEDY in a.m.; CGA x2 with 4WW in p.m. Chair-bed: CGA x2 4WW in p.m. GAIT Assistive Device: STEDY in a.m.; 4WW in p.m. Weight bearing: Full Assist: SBA with STEDY in a.m.; CGA x2 with 4WW in p.m. Distance: 6' x2 with 4WW in p.m. Patient completed static standing and STEDY times 15 minutes with UE support THEREX: Patient completed a global strengthening program, in standing and seated positions, in a.m. and p.m., as per flow sheet. Added functional [id number] exercise from recliner chair. Patient also completed shoulder flexion from 4WW, bilaterally, in standing position for dynamic balance retraining exercise. ASSESSMENT: Patient tolerated sessions well with some complaint of increased fatigue. She was able to tolerate gait training with 4 WW, 6' x2, with CGA x2. Patient would benefit from continued transfer and gait training as well as strengthening for continued improvement in activity tolerance and ability to perform daily functional tasks. PLAN: Continue with PT's POC TREATMENT CODE/TIME: Session 1: 45 minutes; 17177 x2, [id number] Session 2: 25 minutes; [id number], [id number]
--- NOTE | 2018-08-05 13:48 | PTTR_ITS ---
Date of service: 08/05/18 Time of Service: 13:42 PT Notes Inpatient Physical Therapy Treatment Note [facility] Date: 08/05/18 PRECAUTIONS: Fall SUBJECTIVE: Christie is agreeable to participating in PT, and reports that she got good rest last night. OBJECTIVE: PAIN: No c/o pain BED MOBILITY/TRANSFERS Supine-sit: S Sit-supine: S Sit-stand: SBA with STEDY in a.m.; CGA with 4WW in p.m. Stand-sit: SBA with STEDY in a.m.; CGA with 4WW in p.m. Bed-chair: STEDY in a.m.; CGA x2 with 4WW in p.m. Chair-bed: CGA x2 4WW in p.m. GAIT Assistive Device: STEDY in a.m.; 4WW in p.m. Weight bearing: Full Assist: SBA with STEDY in a.m.; CGA x2 with 4WW in p.m. Distance: 6' x2 with 4WW in p.m. Patient completed static standing and STEDY times 15 minutes with UE support THEREX: Patient completed a global strengthening program, in standing and seated positions, in a.m. and p.m., as per flow sheet. Added functional [id number] exercise from recliner chair. Patient also completed shoulder flexion from 4WW, bilaterally, in standing position for dynamic balance retraining exercise. ASSESSMENT: Patient tolerated sessions well with some complaint of increased fatigue. She was able to tolerate gait training with 4 WW, 6' x2, with CGA x2. Patient would benefit from continued transfer and gait training as well as strengthening for continued improvement in activity tolerance and ability to perform daily functional tasks. PLAN: Continue with PT's POC TREATMENT CODE/TIME: Session 1: 45 minutes; 68205 x2, 50119 Session 2: 25 minutes; [id number], [id number]
--- NOTE | 2018-08-05 15:46 | W.PM.PROGNOT ---
Date of Service Date of service: 08/05/18 Time of Service: 15:46 Assessment and Plan (1) Schizophrenia: Current visit: No Status: Chronic Restarted home meds as above on 07/19. Ms. 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 Per recommendations patient was transferred to the ICU, and initiated on standing dose frequent IV Ativan - she now has improved mentation, interaction, following commands, and appears at baseline mental status. Had been maintained on Q4 hour oral Lorazepam, change to equivalent dosing long-acting benzo with Clonazepam previously, decreased dose today following discussion with psych. Plan will be for a very slow taper planned over a 6 month course. (2) Altered mental status: Current visit: Yes Status: Acute Initially described as episodes of confusion, 'staring', near unresponsive state while awake, with potential post-ictal like state - then with worsening affect and verbal responsiveness that declined significantly. 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 Responded well to Benzo therapy as above, now back to baseline. EEG and MRI X2 were negative. (3) Dysphagia: Current visit: Yes Status: Acute History of benign distal esophageal stricture by EGD, s/p dilation in 2007. There was also noted Unprotected aspiration as well as large GERD with evidence of esophagitis. However, repeat EGD here normal and Barium Swallow performed this hospitalization with no evidence of stricture, but with esophageal dysmotility and retention of barium in the esophagus. Patient treated for Aspiration pneumonia now on seperate occasions - s/p PEG tube placement 07/19. Maintaining NPO status with continued Tube Feeds. Also restarted home meds via Peg Tube, with continued aspiration precautions. Due to hypotension from trial of ativan discontinued short acting Cardizem and initiated QHS Imipramine. Also on treatment of GERD with PPI therapy. Will ultimately need outpatient manometry. Of note, had been having problems with initiation of swallowing which appeared new and likely related to her altered mental status/catatonic state from withholding of her psych medications. She has undergone repeat speech evaluation and now able to initiate swallowing well, but with continued and significant discomfort after due to her Esophageal Dysmotility. (4) Esophageal dysmotility: Current visit: Yes Status: Acute Treatment as above. (5) Hypotension: Current visit: Yes Status: Resolved Initially, hypotensive to the point of requiring pressor support, and with evidence of end-organ damage with KJ and elevation in Lactate - unknown etiology. Potential Dehydration in the setting of initiation of HCTZ vs. Sepsis - although no evidence of infiltrate or acute infection initially. Does not appear to have been adrenal insufficiency, with steroids weaned off. Echo without clear cardiogenic etiology, and no persistent arrhythmias on monitor. Aspiration pneumonia/recurrent aspiration events now seem like the most likely scenario. Appears resolved. (6) Bradycardia: Current visit: No Status: Resolved Abnormally normal heart rate during initial bout of hypotension, then frankly bradycardic - reportedly had a bout of junctional rhythm as well. However, review of EKG by Cardiology/Electrophysiology with note of Sinus Bradycardia. Avoid jovan agents - also with tachycardia noted. 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 (7) Hypernatremia: Current visit: Yes Status: Resolved Now resolved. Continue Tube Feeds, and Free Water via Peg Tube. (8) KJ (acute kidney injury): Current visit: Yes Status: Resolved Creatinine stable. (9) Anemia: Current visit: Yes Status: Chronic Stable but low hgb, heme negative stool. Iron studies with low iron, low TIBC, and low ferritin. B12 normal but wit low FA. TSH normal as well. Continue PPI therapy, Ferrous sulfate and Folic Acid supplements. Added Vitamin C as well. (10) DVT prophylaxis: Current visit: Yes Status: Acute Continue Enoxaparin. (11) Advance directive on file: Current visit: Yes Status: Acute DNR/DNI. Subjective Interval history since last seen: 63-year-old woman with history of cognitive delay and Hypertension, admitted from [facility] Emergency Department with a diagnosis of Hypotension. Ms. Gardiner has a history of cognitive dysfunction, HTN, GERD, and Schizophrenia. She was initially sent to the emergency room because of several days of nonspecific weakness. In the ED she was noted to be significantly hypotensive with blood pressures in the 60s systolic, but without tachycardia. She was given fluid resuscitation and started on levophed. Initial laboratory evaluation of note for leukocytosis, low-grade pyuria (5-10 white cells), negative chest x-ray and CT of the abdomen that was unremarkable except for a known cyst in the right lower quadrant. She was then referred for admission for further evaluation and treatment. Since her admission Blood pressure eventually improved and she has remained off pressor support after recurrence of her hypotension, thought likely secondary to aspiration pneumonia/pneumonitis. Her Urine and Blood Cultures have remained negative, and her C. Diff and Fecal Leukocytes were negative as well. CT of the chest and ECHO have been normal. She did however show evidence of difficulty with swallowing, and a Barium Swallow revealed evidence of barium retention and esophageal dysmotility. Subsequent EGD was negative. Mrs. Gardiner had remained NPO and without oral meds or food for quite some time - successfully underwent PEG tube placement on 07/19 and restarted on her home medications. The Patient is an extremely pleasant and stable woman, previously highly independent and living on her own. Her mental status declined significantly from her baseline - become essentially nonverbal and not following commands. Thought to be likely catatonia psychiatry was consulted and confirmed diagnosis. She was moved to the ICU and given trial of benzodiazepine therapy with excellent success. She is now awake and alert and appears back to baseline mental status. Ms. Gardiner underwent a repeat speech evaluation with improved ability to swallow with return of her mental status, but as expected with a great deal of esophageal dysphagia and resultant discomfort given her esophageal dysmotility. Plan is for SNF placement for skilled rehab. No other events reported. Remains afebrile. Exam Narrative Exam Narrative: General: Patient awake at time of visit, alert and at baseline mental status. NAD. Neck: Supple CV: Regular, mildly tachycardic, S1S2, No rubs, murmurs, or gallops. Pulmonary: Previous mild bibasilar crackles improved. Abdomen: + Bowel Sounds, soft, nontender, nondistended. RLQ seroma unchanged. PEG Tube site clean. Vascular: No lower extremity edema Objective Objective Clinical Data: Abnormal lab results 08/05/18 08/05/18 Range/Units 06:35 06:35 RBC 3.73 L (4.00-5.20) m/cumm Hgb 9.2 L (12.0-15.5) g/dL Hct 30.9 L (36.0-46.0) % MCH 24.7 L (27.0-33.0) pg MCHC 29.8 L (32.0-36.0) g/dL RDW 18.8 H (11.7-14.6) % Plt Count 445 H (130-400) x1000/uL Absolute Monocytes 0.78 H (0.11-0.7) k/cumm Sodium 146 H (136-145) mmol/L Carbon Dioxide 34.1 H (21.0-32.0) mmol/L Glucose 131 H (70-100) mg/dL Vital Signs Temperature 37.2 C 08/05/18 15:42 Temperature Source Tympanic 08/05/18 15:42 Pulse 101 H 08/05/18 15:42 Pulse Rhythm Regular 08/05/18 15:31 Pulse 94 H 07/30/18 16:43 Respiratory Rate 20 08/05/18 15:42 Respiratory Effort 08/05/18 15:31 Respiratory Depth Normal 08/05/18 15:31 Respiratory Pattern Normal 08/05/18 15:31 Blood Pressure 159/100 H 08/05/18 15:42 Blood Pressure Mean 115 07/30/18 16:43 Blood Pressure Position Supine 07/30/18 16:46 Pulse Oximetry 98 08/05/18 15:42 Respiratory End-tidal CO2 34 07/07/18 15:01 Oxygen Delivery Method Room Air 08/05/18 15:42 Oxygen Flow Rate 0 08/05/18 15:42 Fraction of Inspired Oxygen (FIO2) 28 07/16/18 00:30 Pain Level 0 08/05/18 10:51 Comment 08/04/18 04:50 Intake & Output 08/04/18 08/05/18 08/05/18 23:59 11:59 23:59 Intake Total 1560 / 1560 Output Total 1679 300 / 300 Balance -1679 / 1260 / 1260 Weight 91.3 kg Intake: Oral 0 / 0 Intake, Tube Feeding Amount 1560 / 1560 Output: Urine 1650 / 1950 300 / 300 Output, Residual 30 / 80 Other: Urine Color Yellow Yellow Urine Appearance Clear Cloudy Clear Stool Size Small Moderate Stool Characteristics Liquid Soft Brown Laboratory Results WBC 8.00 k/cumm (4.4-10.8) 08/05/18 06:35 RBC 3.73 m/cumm (4.00-5.20) L 08/05/18 06:35 Hgb 9.2 g/dL (12.0-15.5) L 08/05/18 06:35 Hct 30.9 % (36.0-46.0) L 08/05/18 06:35 MCV 82.8 fL (80-95) 08/05/18 06:35 MCH 24.7 pg (27.0-33.0) L 08/05/18 06:35 MCHC 29.8 g/dL (32.0-36.0) L 08/05/18 06:35 RDW 18.8 % (11.7-14.6) H 08/05/18 06:35 Plt Count 445 x1000/uL (130-400) H 08/05/18 06:35 MPV 10.8 fL (8.0-11.0) 08/05/18 06:35 Abs Immat Gran (auto) Cancelled 07/13/18 08:05 Immature Gran % 0.3 08/05/18 06:35 Neutrophils % 62.2 08/05/18 06:35 Band Neutrophils % Cancelled 07/13/18 08:05 Lymphocytes % 20.0 08/05/18 06:35 Atypical Lymphs % Cancelled 07/13/18 08:05 Monocytes % 9.8 08/05/18 06:35 Eosinophils % 7.1 08/05/18 06:35 Basophils % 0.6 08/05/18 06:35 Absolute Neutrophils 4.98 k/cumm (1.2-6.7) 08/05/18 06:35 Absolute Lymphocytes 1.60 k/cumm (1.2-3.4) 08/05/18 06:35 Absolute Monocytes 0.78 k/cumm (0.11-0.7) H 08/05/18 06:35 Absolute Eosinophils 0.57 k/cumm (0.0-0.7) 08/05/18 06:35 Absolute Basophils 0.05 k/cumm (0.0-0.2) 08/05/18 06:35 Metamyelocytes Cancelled 07/13/18 08:05 Myelocytes Cancelled 07/13/18 08:05 Promyelocytes Cancelled 07/13/18 08:05 Nucleated RBCs Cancelled 07/13/18 08:05 Differential Comment Rbc morph reviewed 07/26/18 05:47 Other Cell Type Cancelled 07/13/18 08:05 RBC Morphology See below 07/26/18 05:47 Polychromasia Present 07/17/18 06:35 Hypochromasia 1+ 07/26/18 05:47 Poikilocytosis 1+ 07/17/18 06:35 Basophilic Stippling Cancelled 07/13/18 08:05 Anisocytosis 2+ 07/17/18 06:35 Microcytosis 2+ 07/26/18 05:47 Macrocytosis Cancelled 07/13/18 08:05 Spherocytes Cancelled 07/13/18 08:05 Target Cells Cancelled 07/13/18 08:05 Tear Drop Cells Cancelled 07/13/18 08:05 Ovalocytes 2+ 07/26/18 05:47 Stomatocytes Cancelled 07/13/18 08:05 [place] Bodies Cancelled 07/13/18 08:05 Martin Cells Cancelled 07/13/18 08:05 Acanthocytes (Spur) Cancelled 07/13/18 08:05 Schistocytes 1+ 07/26/18 05:47 D-Dimer 1329 ng/mlFEU (<500) H 07/07/18 21:15 Sodium 146 mmol/L (136-145) H 08/05/18 06:35 Potassium 3.5 mmol/L (3.5-5.1) 08/05/18 06:35 Chloride 105 mmol/L (98-107) 08/05/18 06:35 Carbon Dioxide 34.1 mmol/L (21.0-32.0) H 08/05/18 06:35 Anion Gap 6.9 mmol/L (3-11) 08/05/18 06:35 BUN 18 mg/dL (7-18) 08/05/18 06:35 Creatinine 0.80 mg/dL (0.55-1.02) 08/05/18 06:35 Estimated GFR/1.73 m2 >= 60.00 (mL/min/1.73m2) 08/05/18 06:35 Glucose 131 mg/dL (70-100) H 08/05/18 06:35 Lactate 1.0 mmol/L (0.6-1.4) 07/06/18 07:20 Calcium 9.2 mg/dL (8.5-10.1) 08/05/18 06:35 Magnesium 2.0 mg/dL (1.8-2.4) 08/05/18 06:35 Iron 20 ug/dL (50-175) L 07/25/18 16:13 TIBC 235 ug/dL (250-450) L 07/25/18 16:13 Transferrin % Sat 9 % (15-50) L 07/25/18 16:13 Ferritin 35 ng/mL (8-388) 07/25/18 16:13 Total Bilirubin 0.3 mg/dL (0.2-1.0) 07/12/18 05:50 Conjugated Bilirubin 0.10 mg/dL (0.00-0.20) 07/12/18 05:50 AST 24 U/L (15-37) 07/12/18 05:50 ALT 47 U/L (12-78) 07/12/18 05:50 Alkaline Phosphatase 65 U/L (46-116) 07/12/18 05:50 Ammonia < 10 umol/L (11-32) L 07/15/18 10:20 Troponin I 0.02 ng/mL (0.00-0.06) 07/08/18 05:00 NT-Pro-B Natriuret Pep 744 pg/mL (-299) H 07/31/18 19:52 Total Protein 4.6 g/dL (6.4-8.2) L 07/12/18 05:50 Albumin 2.2 g/dL (3.4-5.0) L 07/12/18 05:50 Lipase 252 U/L (73-393) 07/04/18 13:15 Vitamin B12 471 pg/mL (193-986) 07/25/18 16:13 Folate 8.0 ng/mL (8.6-20.0) L 07/25/18 16:13 Procalcitonin <0.10 ng/mL (<or=1.5) 07/08/18 06:24 Calcitonin Cancelled 07/08/18 06:24 TSH 1.09 uIU/mL (0.358-3.74) 07/06/18 07:20 Urine Color Yellow (Yellow) 07/14/18 13:05 Urine Clarity Clear 07/14/18 13:05 Urine pH 5.0 (5-8) 07/14/18 13:05 Ur Specific [place] <= 1.005 (1.005-1.025) 07/14/18 13:05 Urine Protein Negative mg/dL (Negative) 07/14/18 13:05 Urine Ketones Negative mg/dL (Negative) 07/14/18 13:05 Urine Blood Small (Negative) H 07/14/18 13:05 Urine Nitrite Negative (Negative) 07/14/18 13:05 Urine Bilirubin Negative (Negative) 07/14/18 13:05 Urine Urobilinogen 0.2 EU/dL (Up TO 0.2) 07/14/18 13:05 Ur Leukocyte Esterase Negative (Negative) 07/14/18 13:05 Urine RBC 3-5 (0-2) H 07/14/18 13:05 Urine WBC 0-2 HPF (0-5) 07/14/18 13:05 Ur Epithelial Cells Rare HPF (Negative) 07/14/18 13:05 Urine Crystals Rare amorphous HPF (Negative) 07/14/18 13:05 Urine Bacteria Rare HPF (Negative) 07/14/18 13:05 Urine Casts Negative LPF (Negative) 07/14/18 13:05 Urine Mucus Trace (Negative) 07/14/18 13:05 Ur Culture Indicated? C&s done as ordered 07/14/18 13:05 Urine Glucose 100 mg/dL (Negative) 07/14/18 13:05 Stool Campylobacter PCR See comments 07/06/18 12:45 Stool Salmonella PCR See comments 07/06/18 12:45 Stool Shigella PCR See comments 07/06/18 12:45 Vancomycin Trough 18.9 ug/mL (10.0-20.0) 07/20/18 06:17 Shiga Toxin (PCR) See comments 07/06/18 12:45 Path Cons Comment See comment 07/06/18 07:20 Miscellaneous Test Cancelled 07/08/18 06:24
[2018-08-05] MEDS: Normal Saline Flush 10 ML SYR IVP (17:45)
[2018-08-05] MEDS: OLANZapine 5 MG TAB 10 MG UD (21:07)
[2018-08-05] MEDS: Donepezil 5 MG TAB 10 MG UD (21:07)
[2018-08-06] VITALS (7 sets, daily range): BP systolic 117–161; BP diastolic 81–116; PULSE 88–101; RESP 18–22; TEMP 36.4–37.2; O2SAT 94–97
[2018-08-06 07:41] LABS: Abs Immature Grans 0.04 k/cumm (0.0-0.09); Absolute Basophil Count 0.06 k/cumm (0.0-0.2); Absolute Eosinophil Count 0.48 k/cumm (0.0-0.7); Absolute Lymphocyte Count 2.06 k/cumm (1.2-3.4); Absolute Monocyte Count 1.01 k/cumm (0.11-0.7); Absolute Neutrophil Count 5.05 k/cumm (1.2-6.7); Basophils % 0.7; Eosinophils % 5.5; HCT 30.2 % (36.0-46.0); Immature Grans % 0.5; Lymphocytes % 23.7; Mean Corp. HGB Concentration 29.8 g/dL (32.0-36.0); Mean Corpuscular Hemoglobin 24.9 pg (27.0-33.0); Mean Corpuscular Volume 83.4 fL (80-95); Mean Platelet Volume 10.8 fL (8.0-11.0); Monocytes % 11.6; Platelet Count 445 x1000/uL (130-400); RBC 3.62 m/cumm (4.00-5.20); RBC Distribution Width 18.9 % (11.7-14.6)
[2018-08-06 07:43] LABS: Anion Gap 6.9 mmol/L (3-11); BUN 18 mg/dL (7-18); CO2 33.1 mmol/L (21.0-32.0); CREATININE 0.85 mg/dL (0.55-1.02); Calcium 9.2 mg/dL (8.5-10.1); Chloride 106 mmol/L (98-107); Glucose 118 mg/dL (70-100); Magnesium 1.9 mg/dL (1.8-2.4); Potassium 3.6 mmol/L (3.5-5.1); Sodium 146 mmol/L (136-145)
[2018-08-06] MEDS: Nystatin POWDER 60 GM JAR TP ×2 (09:28→21:29)
[2018-08-06] MEDS: Ferrous Sulfate 44 MG/ML Liquid 325 MG NG ×2 (09:28→21:30)
[2018-08-06] MEDS: Normal Saline Flush 10 ML SYR IVP (09:29)
[2018-08-06] MEDS: Enoxaparin 40 MG/0.4 ML SYR SC (09:29)
[2018-08-06] MEDS: Normal Saline Flush 10 ML SYR 20 ML IVP ×2 (09:29→21:30)
[2018-08-06] MEDS: Cyanocobalamin 500 MCG TAB 1000 MCG NG (09:30)
[2018-08-06] MEDS: Loperamide 2 MG CAP UD (09:30)
[2018-08-06] MEDS: Memantine 5 MG TAB 10 MG UD ×2 (09:30→21:31)
[2018-08-06] MEDS: amLODIPine 5 MG TAB PO (09:30)
[2018-08-06] MEDS: Pantoprazole 40 MG VIAL IVP (09:30)
[2018-08-06] MEDS: Folic Acid 1 MG TAB NG (09:30)
[2018-08-06] MEDS: Ascorbic Acid 500 MG TAB NG ×2 (09:30→21:31)
[2018-08-06] MEDS: clonazePAM 1 MG TAB PO ×2 (09:31→21:31)
[2018-08-06] MEDS: Methimazole 5 MG TAB UD (09:31)
[2018-08-06] MEDS: Magnesium Oxide 400 MG TAB JT (09:35)
--- NOTE | 2018-08-06 11:17 | OT.INTREAT ---
Date of service: 08/06/18 Time of Service: 08:25 Occupational Therapy Notes Occupational Therapy Inpatient Treatment Note Date: 08/06/18 PRECAUTIONS: Fall, Standard SUBJECTIVE: Pt was agreeable to OT session. She reports that she slept well last night and that she wants to sit in her chair. OBJECTIVE: PAIN:no c/o pain FUNCTIONAL MOBILITY performed with CHARGE HISTOTECHNOLOGIST to chair BATHING: Sitting in chair, min vc Upper Body: (I) (B) UE, min (A) abdomen, max (A) hair, (I) face Lower Body: (I) legs to knees. DRESSING: Sitting in chair with min vc Upper Extremity: Min (A) [facility] gow Lower Extremity: Max (A) (B) socks GROOMING: Sitting in chair max (A) Set up, mod vc for spitting post teeth brushing, (I) hair. ASSESSMENT/PLAN: OT recommends that pt go to SNF when medically cleared per MD. Pt is demonstrating increased (I) in ADLs however requires vc to perform routines and mod-max (A) for set up at this time. TREATMENT CODES/TIME: [id number], 30 minutes (08:25) Ashtyn Alvarez OTR/[facility]
--- NOTE | 2018-08-06 11:23 | OTTR_ITS ---
Date of service: 08/06/18 Time of Service: 08:25 Occupational Therapy Notes Occupational Therapy Inpatient Treatment Note Date: 08/06/18 PRECAUTIONS: Fall, Standard SUBJECTIVE: Pt was agreeable to OT session. She reports that she slept well last night and that she wants to sit in her chair. OBJECTIVE: PAIN:no c/o pain FUNCTIONAL MOBILITY performed with SPRAY GUN STRIPER to chair BATHING: Sitting in chair, min vc Upper Body: (I) (B) UE, min (A) abdomen, max (A) hair, (I) face Lower Body: (I) legs to knees. DRESSING: Sitting in chair with min vc Upper Extremity: Min (A) [facility] gow Lower Extremity: Max (A) (B) socks GROOMING: Sitting in chair max (A) Set up, mod vc for spitting post teeth brushing, (I) hair. ASSESSMENT/PLAN: OT recommends that pt go to SNF when medically cleared per MD. Pt is demonstrating increased (I) in ADLs however requires vc to perform routines and mod-max (A) for set up at this time. TREATMENT CODES/TIME: [id number], 30 minutes (08:25) Ashtyn Alvarez OTR/[facility]
--- NOTE | 2018-08-06 12:37 | PT.INTREAT ---
Date of service: 08/06/18 Time of Service: 12:37 PT Notes Inpatient Physical Therapy Treatment Note [facility] Date: 08/06/18 PRECAUTIONS: Fall SUBJECTIVE: Christie is pleasant and agreeable to PT. During PT session, Christie states I have to tell you something, I pulled on my tube the other day, and they told me not to. It doesn't hurt, I just can't explain it. OBJECTIVE: PAIN: No c/o pain BED MOBILITY/TRANSFERS Supine-sit: S Sit-supine: S Sit-stand: CGA from bed in a.m.; Min A from recliner in p.m. Stand-sit: CGA Bed-chair: CGA x2 with 4WW Chair-bed: CGA x2 with 4WW GAIT Assistive Device: 4WW Weight bearing: Full Assist: CGA x2 in a.m.; CGA in p.m. Distance: 6' in a.m.; 12' + 6' in p.m. Deviation: Cueing for safety with turning and backing up to chair; Seated rest x1 in p.m. THEREX: Patient completed a global strengthening program, while in seated and supine positions, as per flow sheet. She was also able to perform functional [id number] exercise x5, as well as standing shoulder flexion, bilaterally, for dynamic balance retraining. ASSESSMENT: Patient tolerated session well, requiring cueing and instruction during gait training for safety with turning and backing up to chair. She was able to tolerate a progression in gait distance with 4WW and CGA. Patient would benefit from continued gait and transfer training, as well as strengthening for improved activity tolerance and mobility. PLAN: Continue with PT's POC TREATMENT CODE/TIME: Session 1: 35 minutes; [id number], [id number] Session 2: 30 minutes; [id number], [id number]
--- NOTE | 2018-08-06 12:43 | PTTR_ITS ---
Date of service: 08/06/18 Time of Service: 12:37 PT Notes Inpatient Physical Therapy Treatment Note [facility] Date: 08/06/18 PRECAUTIONS: Fall SUBJECTIVE: Chrisite is pleasant and agreeable to PT. During PT session, Christie states I have to tell you something, I pulled on my tube the other day, and they told me not to. It doesn't hurt, I just can't explain it. OBJECTIVE: PAIN: No c/o pain BED MOBILITY/TRANSFERS Supine-sit: S Sit-supine: S Sit-stand: CGA from bed in a.m.; Min A from recliner in p.m. Stand-sit: CGA Bed-chair: CGA x2 with 4WW Chair-bed: CGA x2 with 4WW GAIT Assistive Device: 4WW Weight bearing: Full Assist: CGA x2 in a.m.; CGA in p.m. Distance: 6' in a.m.; 12' + 6' in p.m. Deviation: Cueing for safety with turning and backing up to chair; Seated rest x1 in p.m. THEREX: Patient completed a global strengthening program, while in seated and supine positions, as per flow sheet. She was also able to perform functional [id number] exercise x5, as well as standing shoulder flexion, bilaterally, for dynamic balance retraining. ASSESSMENT: Patient tolerated session well, requiring cueing and instruction during gait training for safety with turning and backing up to chair. She was able to tolerate a progression in gait distance with 4WW and CGA. Patient would benefit from continued gait and transfer training, as well as strengthening for improved activity tolerance and mobility. PLAN: Continue with PT's POC TREATMENT CODE/TIME: Session 1: 35 minutes; [id number], [id number] Session 2: 30 minutes; [id number], [id number]
--- NOTE | 2018-08-06 13:29 | PDOC.CMPRO ---
- If Service Date Differs Date of service: 08/06/18 Time of Service: 13:29 Care Management Progress Note S/O: Christie is lying in bed this morning when this blurb writer visits. CM contacted SNF's of patients choice and the responses are listed below. Chrsitie's family has not been in as of yet this afternoon. CM will need to meet with Christie and her family in regards to broadening search for SNF placement. [facility]: Reported no female bed availability anticipated. [facility] [place]: No beds available - have a wait list [facility]: No female beds available. A: 63 yo disabled female admitted for hypotension, aspiration pneumonia now with a PEG tube placement. P: SNF coordination continues in anticipation of medical stabilization, Christie continues to work with S/T, Psychiatry, P/T, and OT. Christie will require follow up for outpatient manometry per MD. CM will continue to provide support ongoing discharge planning and disposition.
--- NOTE | 2018-08-06 13:32 | CMPROGNOTE_ITS ---
- If Service Date Differs Date of service: 08/06/18 Time of Service: 13:29 Care Management Progress Note S/O: Christie is lying in bed this morning when this business writer visits. CM contacted SNF's of patients choice and the responses are listed below. Christie's family has not been in as of yet this afternoon. CM will need to meet with Christie and her family in regards to broadening search for SNF placement. [facility]: Reported no female bed availability anticipated. [facility]: No beds available - have a wait list [facility]: No female beds available. A: 63 yo disabled female admitted for hypotension, aspiration pneumonia now with a PEG tube placement. P: SNF coordination continues in anticipation of medical stabilization, Christie continues to work with S/T, Psychiatry, P/T, and OT. Christie will require follow up for outpatient manometry per MD. CM will continue to provide support ongoing discharge planning and disposition.
--- NOTE | 2018-08-06 18:06 | W.PM.PROGNOT ---
Date of Service Date of service: 08/06/18 Time of Service: 18:06 Assessment and Plan (1) Schizophrenia: Current visit: No Status: Chronic Restarted home meds as above on 07/19. Ms. 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 Per recommendations patient was transferred to the ICU, and initiated on standing dose frequent IV Ativan - she now has improved mentation, interaction, following commands, and appears at baseline mental status. Had been maintained on Q4 hour oral Lorazepam, change to equivalent dosing long-acting benzo with Clonazepam previously, decreased dose following discussion with psych. Plan will be for a very slow taper planned over a 6 month course. (2) Altered mental status: Current visit: Yes Status: Acute Initially described as episodes of confusion, 'staring', near unresponsive state while awake, with potential post-ictal like state - then with worsening affect and verbal responsiveness that declined significantly. 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 Responded well to Benzo therapy as above, now back to baseline. EEG and MRI X2 were negative. (3) Dysphagia: Current visit: Yes Status: Acute History of benign distal esophageal stricture by EGD, s/p dilation in 2007. There was also noted Unprotected aspiration as well as large GERD with evidence of esophagitis. However, repeat EGD here normal and Barium Swallow performed this hospitalization with no evidence of stricture, but with esophageal dysmotility and retention of barium in the esophagus. Patient treated for Aspiration pneumonia now on seperate occasions - s/p PEG tube placement 07/19. Maintaining NPO status with continued Tube Feeds. Also restarted home meds via Peg Tube, with continued aspiration precautions. Due to hypotension from trial of ativan discontinued short acting Cardizem and initiated QHS Imipramine. Also on treatment of GERD with PPI therapy. Will ultimately need outpatient manometry. Of note, had been having problems with initiation of swallowing which appeared new and likely related to her altered mental status/catatonic state from withholding of her psych medications. She has undergone repeat speech evaluation and now able to initiate swallowing well, but with continued and significant discomfort after due to her Esophageal Dysmotility. (4) Esophageal dysmotility: Current visit: Yes Status: Acute Treatment as above. (5) Hypotension: Current visit: Yes Status: Resolved Initially, hypotensive to the point of requiring pressor support, and with evidence of end-organ damage with KJ and elevation in Lactate - unknown etiology. Potential Dehydration in the setting of initiation of HCTZ vs. Sepsis - although no evidence of infiltrate or acute infection initially. Does not appear to have been adrenal insufficiency, with steroids weaned off. Echo without clear cardiogenic etiology, and no persistent arrhythmias on monitor. Aspiration pneumonia/recurrent aspiration events now seem like the most likely scenario. Appears resolved. (6) Bradycardia: Current visit: No Status: Resolved Abnormally normal heart rate during initial bout of hypotension, then frankly bradycardic - reportedly had a bout of junctional rhythm as well. However, review of EKG by Cardiology/Electrophysiology with note of Sinus Bradycardia. Avoid jovan agents - also with tachycardia noted. 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 (7) Hypernatremia: Current visit: Yes Status: Resolved Now resolved. Continue Tube Feeds, and Free Water via Peg Tube. (8) KJ (acute kidney injury): Current visit: Yes Status: Resolved Creatinine stable. (9) Anemia: Current visit: Yes Status: Chronic Stable but low hgb, heme negative stool. Iron studies with low iron, low TIBC, and low ferritin. B12 normal but wit low FA. TSH normal as well. Continue PPI therapy, Ferrous sulfate and Folic Acid supplements. Added Vitamin C as well. (10) DVT prophylaxis: Current visit: Yes Status: Acute Continue Enoxaparin. (11) Advance directive on file: Current visit: Yes Status: Acute DNR/DNI. Subjective Interval history since last seen: 63-year-old woman with history of cognitive delay and Hypertension, admitted from [facility] Emergency Department with a diagnosis of Hypotension. Ms. Gardiner has a history of cognitive dysfunction, HTN, GERD, and Schizophrenia. She was initially sent to the emergency room because of several days of nonspecific weakness. In the ED she was noted to be significantly hypotensive with blood pressures in the 60s systolic, but without tachycardia. She was given fluid resuscitation and started on levophed. Initial laboratory evaluation of note for leukocytosis, low-grade pyuria (5-10 white cells), negative chest x-ray and CT of the abdomen that was unremarkable except for a known cyst in the right lower quadrant. She was then referred for admission for further evaluation and treatment. Since her admission Blood pressure eventually improved and she has remained off pressor support after recurrence of her hypotension, thought likely secondary to aspiration pneumonia/pneumonitis. Her Urine and Blood Cultures have remained negative, and her C. Diff and Fecal Leukocytes were negative as well. CT of the chest and ECHO have been normal. She did however show evidence of difficulty with swallowing, and a Barium Swallow revealed evidence of barium retention and esophageal dysmotility. Subsequent EGD was negative. Mrs. Gardiner had remained NPO and without oral meds or food for quite some time - successfully underwent PEG tube placement on 07/19 and restarted on her home medications. The Patient is an extremely pleasant and stable woman, previously highly independent and living on her own. Her mental status declined significantly from her baseline - become essentially nonverbal and not following commands. Thought to be likely catatonia psychiatry was consulted and confirmed diagnosis. She was moved to the ICU and given trial of benzodiazepine therapy with excellent success. She is now awake and alert and appears back to baseline mental status. Ms. Gardiner underwent a repeat speech evaluation with improved ability to swallow with return of her mental status, but as expected with a great deal of esophageal dysphagia and resultant discomfort given her esophageal dysmotility. Plan is for SNF placement for skilled rehab - currently awaiting placement options. No other events reported. Remains afebrile. Exam Narrative Exam Narrative: General: Patient awake at time of visit, alert and at baseline mental status. NAD. Psych: Mood and affect at patient's baseline. Objective Objective Clinical Data: Abnormal lab results 08/06/18 08/06/18 Range/Units 06:30 06:30 RBC 3.62 L (4.00-5.20) m/cumm Hgb 9.0 L (12.0-15.5) g/dL Hct 30.2 L (36.0-46.0) % MCH 24.9 L (27.0-33.0) pg MCHC 29.8 L (32.0-36.0) g/dL RDW 18.9 H (11.7-14.6) % Plt Count 445 H (130-400) x1000/uL Absolute Monocytes 1.01 H (0.11-0.7) k/cumm Sodium 146 H (136-145) mmol/L Carbon Dioxide 33.1 H (21.0-32.0) mmol/L Glucose 118 H (70-100) mg/dL Vital Signs Temperature 36.9 C 08/06/18 16:26 Temperature Source Tympanic 08/06/18 16:26 Pulse 97 H 08/06/18 16:26 Pulse Rhythm Regular 08/06/18 12:08 Pulse 94 H 07/30/18 16:43 Respiratory Rate 20 08/06/18 16:26 Respiratory Effort 08/06/18 12:08 Respiratory Depth Shallow 08/06/18 12:08 Respiratory Pattern Normal 08/06/18 12:08 Blood Pressure 132/91 H 08/06/18 16:26 Blood Pressure Mean 115 07/30/18 16:43 Blood Pressure Position Supine 07/30/18 16:46 Pulse Oximetry 97 08/06/18 16:26 Respiratory End-tidal CO2 34 07/07/18 15:01 Oxygen Delivery Method Room Air 08/06/18 16:26 Oxygen Flow Rate 0 08/06/18 16:26 Fraction of Inspired Oxygen (FIO2) 28 07/16/18 00:30 Pain Level 0 08/05/18 10:51 Comment 08/04/18 04:50 Intake & Output 08/05/18 08/06/18 08/06/18 23:59 11:59 23:59 Output Total 700 / 1000 350 / 700 350 / 700 Balance -700 / 560 -350 / -700 -350 / -700 Weight 93.8 kg Output: Urine 700 / 1000 350 / 700 350 / 700 Other: Urine Color Yellow Yellow Yellow Urine Appearance Clear Clear Clear Comment patient given good skin care , currently she is perservating about her stomach, that it hurts, she has a hernia, but other fisher, positive bowel sounds, no tenderness, she was given reassurance fecal matter along tubing is cleaned off , campbell is patent and draining Stool Size Smear Moderate Stool Characteristics Soft Soft Laboratory Results WBC 8.70 k/cumm (4.4-10.8) 08/06/18 06:30 RBC 3.62 m/cumm (4.00-5.20) L 08/06/18 06:30 Hgb 9.0 g/dL (12.0-15.5) L 08/06/18 06:30 Hct 30.2 % (36.0-46.0) L 08/06/18 06:30 MCV 83.4 fL (80-95) 08/06/18 06:30 MCH 24.9 pg (27.0-33.0) L 08/06/18 06:30 MCHC 29.8 g/dL (32.0-36.0) L 08/06/18 06:30 RDW 18.9 % (11.7-14.6) H 08/06/18 06:30 Plt Count 445 x1000/uL (130-400) H 08/06/18 06:30 MPV 10.8 fL (8.0-11.0) 08/06/18 06:30 Abs Immat Gran (auto) Cancelled 07/13/18 08:05 Immature Gran % 0.5 08/06/18 06:30 Neutrophils % 58.0 08/06/18 06:30 Band Neutrophils % Cancelled 07/13/18 08:05 Lymphocytes % 23.7 08/06/18 06:30 Atypical Lymphs % Cancelled 07/13/18 08:05 Monocytes % 11.6 08/06/18 06:30 Eosinophils % 5.5 08/06/18 06:30 Basophils % 0.7 08/06/18 06:30 Absolute Neutrophils 5.05 k/cumm (1.2-6.7) 08/06/18 06:30 Absolute Lymphocytes 2.06 k/cumm (1.2-3.4) 08/06/18 06:30 Absolute Monocytes 1.01 k/cumm (0.11-0.7) H 08/06/18 06:30 Absolute Eosinophils 0.48 k/cumm (0.0-0.7) 08/06/18 06:30 Absolute Basophils 0.06 k/cumm (0.0-0.2) 08/06/18 06:30 Metamyelocytes Cancelled 07/13/18 08:05 Myelocytes Cancelled 07/13/18 08:05 Promyelocytes Cancelled 07/13/18 08:05 Nucleated RBCs Cancelled 07/13/18 08:05 Differential Comment Rbc morph reviewed 07/26/18 05:47 Other Cell Type Cancelled 07/13/18 08:05 RBC Morphology See below 07/26/18 05:47 Polychromasia Present 07/17/18 06:35 Hypochromasia 1+ 07/26/18 05:47 Poikilocytosis 1+ 07/17/18 06:35 Basophilic Stippling Cancelled 07/13/18 08:05 Anisocytosis 2+ 07/17/18 06:35 Microcytosis 2+ 07/26/18 05:47 Macrocytosis Cancelled 07/13/18 08:05 Spherocytes Cancelled 07/13/18 08:05 Target Cells Cancelled 07/13/18 08:05 Tear Drop Cells Cancelled 07/13/18 08:05 Ovalocytes 2+ 07/26/18 05:47 Stomatocytes Cancelled 07/13/18 08:05 [place] Bodies Cancelled 07/13/18 08:05 Collins Cells Cancelled 07/13/18 08:05 Acanthocytes (Spur) Cancelled 07/13/18 08:05 Schistocytes 1+ 07/26/18 05:47 D-Dimer 1329 ng/mlFEU (<500) H 07/07/18 21:15 Sodium 146 mmol/L (136-145) H 08/06/18 06:30 Potassium 3.6 mmol/L (3.5-5.1) 08/06/18 06:30 Chloride 106 mmol/L (98-107) 08/06/18 06:30 Carbon Dioxide 33.1 mmol/L (21.0-32.0) H 08/06/18 06:30 Anion Gap 6.9 mmol/L (3-11) 08/06/18 06:30 BUN 18 mg/dL (7-18) 08/06/18 06:30 Creatinine 0.85 mg/dL (0.55-1.02) 08/06/18 06:30 Estimated GFR/1.73 m2 >= 60.00 (mL/min/1.73m2) 08/06/18 06:30 Glucose 118 mg/dL (70-100) H 08/06/18 06:30 Lactate 1.0 mmol/L (0.6-1.4) 07/06/18 07:20 Calcium 9.2 mg/dL (8.5-10.1) 08/06/18 06:30 Magnesium 1.9 mg/dL (1.8-2.4) 08/06/18 06:30 Iron 20 ug/dL (50-175) L 07/25/18 16:13 TIBC 235 ug/dL (250-450) L 07/25/18 16:13 Transferrin % Sat 9 % (15-50) L 07/25/18 16:13 Ferritin 35 ng/mL (8-388) 07/25/18 16:13 Total Bilirubin 0.3 mg/dL (0.2-1.0) 07/12/18 05:50 Conjugated Bilirubin 0.10 mg/dL (0.00-0.20) 07/12/18 05:50 AST 24 U/L (15-37) 07/12/18 05:50 ALT 47 U/L (12-78) 07/12/18 05:50 Alkaline Phosphatase 65 U/L (46-116) 07/12/18 05:50 Ammonia < 10 umol/L (11-32) L 07/15/18 10:20 Troponin I 0.02 ng/mL (0.00-0.06) 07/08/18 05:00 NT-Pro-B Natriuret Pep 744 pg/mL (-299) H 07/31/18 19:52 Total Protein 4.6 g/dL (6.4-8.2) L 07/12/18 05:50 Albumin 2.2 g/dL (3.4-5.0) L 07/12/18 05:50 Lipase 252 U/L (73-393) 07/04/18 13:15 Vitamin B12 471 pg/mL (193-986) 07/25/18 16:13 Folate 8.0 ng/mL (8.6-20.0) L 07/25/18 16:13 Procalcitonin <0.10 ng/mL (<or=1.5) 07/08/18 06:24 Calcitonin Cancelled 07/08/18 06:24 TSH 1.09 uIU/mL (0.358-3.74) 07/06/18 07:20 Urine Color Yellow (Yellow) 07/14/18 13:05 Urine Clarity Clear 07/14/18 13:05 Urine pH 5.0 (5-8) 07/14/18 13:05 Ur Specific [place] <= 1.005 (1.005-1.025) 07/14/18 13:05 Urine Protein Negative mg/dL (Negative) 07/14/18 13:05 Urine Ketones Negative mg/dL (Negative) 07/14/18 13:05 Urine Blood Small (Negative) H 07/14/18 13:05 Urine Nitrite Negative (Negative) 07/14/18 13:05 Urine Bilirubin Negative (Negative) 07/14/18 13:05 Urine Urobilinogen 0.2 EU/dL (Up TO 0.2) 07/14/18 13:05 Ur Leukocyte Esterase Negative (Negative) 07/14/18 13:05 Urine RBC 3-5 (0-2) H 07/14/18 13:05 Urine WBC 0-2 HPF (0-5) 07/14/18 13:05 Ur Epithelial Cells Rare HPF (Negative) 07/14/18 13:05 Urine Crystals Rare amorphous HPF (Negative) 07/14/18 13:05 Urine Bacteria Rare HPF (Negative) 07/14/18 13:05 Urine Casts Negative LPF (Negative) 07/14/18 13:05 Urine Mucus Trace (Negative) 07/14/18 13:05 Ur Culture Indicated? C&s done as ordered 07/14/18 13:05 Urine Glucose 100 mg/dL (Negative) 07/14/18 13:05 Stool Campylobacter PCR See comments 07/06/18 12:45 Stool Salmonella PCR See comments 07/06/18 12:45 Stool Shigella PCR See comments 07/06/18 12:45 Vancomycin Trough 18.9 ug/mL (10.0-20.0) 07/20/18 06:17 Shiga Toxin (PCR) See comments 07/06/18 12:45 Path Cons Comment See comment 07/06/18 07:20 Miscellaneous Test Cancelled 07/08/18 06:24
[2018-08-06] MEDS: OLANZapine 5 MG TAB 10 MG UD (21:31)
[2018-08-06] MEDS: Donepezil 5 MG TAB 10 MG UD (21:31)
[2018-08-07 04:10] VITALS: BP 134/90; PULSE 87; RESP 24; TEMP 36.9; O2SAT 95
[2018-08-07 07:22] LABS: Abs Immature Grans 0.02 k/cumm (0.0-0.09); Absolute Basophil Count 0.04 k/cumm (0.0-0.2); Absolute Eosinophil Count 0.51 k/cumm (0.0-0.7); Absolute Lymphocyte Count 1.85 k/cumm (1.2-3.4); Absolute Monocyte Count 0.71 k/cumm (0.11-0.7); Absolute Neutrophil Count 3.95 k/cumm (1.2-6.7); Basophils % 0.6; Eosinophils % 7.2; HCT 27.4 % (36.0-46.0); HGB 8.1 g/dL (12.0-15.5); Immature Grans % 0.3; Lymphocytes % 26.1; Mean Corp. HGB Concentration 29.6 g/dL (32.0-36.0); Mean Corpuscular Hemoglobin 24.9 pg (27.0-33.0); Mean Corpuscular Volume 84.3 fL (80-95); Neutrophils % 55.8; Platelet Count 375 x1000/uL (130-400); RBC 3.25 m/cumm (4.00-5.20); RBC Distribution Width 18.8 % (11.7-14.6); White Blood Cell Count 7.08 k/cumm (4.4-10.8)
[2018-08-07 07:34] LABS: Anion Gap 7.2 mmol/L (3-11); BUN 17 mg/dL (7-18); CO2 31.8 mmol/L (21.0-32.0); CREATININE 0.77 mg/dL (0.55-1.02); Calcium 8.7 mg/dL (8.5-10.1); Chloride 107 mmol/L (98-107); Glucose 119 mg/dL (70-100); Magnesium 1.9 mg/dL (1.8-2.4); Potassium 3.8 mmol/L (3.5-5.1); Sodium 146 mmol/L (136-145)
[2018-08-07 07:45] VITALS: BP 148/104; PULSE 91; RESP 18; TEMP 36.8; O2SAT 96
--- NOTE | 2018-08-07 09:02 | PDOC.CMPRO ---
Care Management Progress Note S/O: Christie remains pleasant in interaction and continues to make good efforts and is appropriate working with PT/OT/Speech/Psych/Nutrition and medical staff. CM reviewed lack of bed availability. CM will discuss possibility of SWB1 for Christie as it is likely Christie will be difficult to place for short term rehab given her dual diagnosis and medical complexity. CM will continue to follow. [facility]: Reported no female bed availability anticipated. [place]: No beds available - have a wait list [facility]: No female beds available. A: 63 yo disabled female admitted for hypotension, aspiration pneumonia now with a PEG tube placement. P: SNF coordination continues in anticipation of medical stabilization, Christie continues to work with S/T, Psychiatry, P/T, and OT. Christie will require follow up for outpatient manometry per MD. CM will continue to provide support ongoing discharge planning and disposition.
[2018-08-07] MEDS: clonazePAM 1 MG TAB PO ×2 (09:27→19:12)
[2018-08-07] MEDS: amLODIPine 5 MG TAB PO (09:27)
[2018-08-07] MEDS: Folic Acid 1 MG TAB NG (09:27)
[2018-08-07] MEDS: Memantine 5 MG TAB 10 MG UD ×2 (09:27→19:12)
[2018-08-07] MEDS: Potassium Chloride 20 MEQ TABCR PO (09:27)
[2018-08-07] MEDS: Loperamide 2 MG CAP UD ×3 (09:27→21:34)
[2018-08-07] MEDS: Magnesium Oxide 400 MG TAB NG (09:28)
[2018-08-07] MEDS: Cyanocobalamin 500 MCG TAB 1000 MCG NG (09:28)
[2018-08-07] MEDS: Methimazole 5 MG TAB 10 MG UD (09:28)
[2018-08-07] MEDS: Ascorbic Acid 500 MG TAB NG ×2 (09:28→19:12)
[2018-08-07] MEDS: Normal Saline Flush 10 ML SYR 20 ML IVP ×2 (09:28→19:13)
[2018-08-07] MEDS: Nystatin POWDER 60 GM JAR TP ×2 (09:29→19:13)
[2018-08-07] MEDS: Pantoprazole 40 MG VIAL IVP (09:29)
[2018-08-07] MEDS: Enoxaparin 40 MG/0.4 ML SYR SC (09:48)
--- NOTE | 2018-08-07 09:54 | OTTR_ITS ---
Date of service: 08/07/18 Time of Service: 09:00 Occupational Therapy Notes Occupational Therapy Inpatient Treatment Note Date: 08/07/18 PRECAUTIONS: Fall, standard SUBJECTIVE: Pt was sitting on commode when OT arrived. She was agreeable to OT session. OBJECTIVE: PAIN:no c/o pain FUNCTIONAL MOBILITY Sit-stand: CGA, 4WW Stand-sit: CGA, 4WW with min vc for hand placement Commode-Chair: CGA, 4WW BATHING: Sitting in chair, max (A) set up Upper Body: mod (A) for underarms, otherwise (I) face, abdomen and (B) UE, max (A) back Lower Body: Mod (A) lower legs DRESSING: Sitting in chair with max (A) set up. Upper Extremity: Mod (A) [facility] gown Lower Extremity: NT GROOMING: Sitting in chair, (I) with brushing teeth and hair with max (A) set up. TOILETING: Device: Commode Assist: Max (A) toileting hygiene ASSESSMENT: Pt is demonstrating increased (I) in ADL routines. She able to perform them in the sitting position however is not able to tolerate standing at the sink at this time. Pt would benefit from continued skilled OT services for progression of (I) of ADLs and increased functional activity tolerance. PLAN: OT recommends that pt go to SNF when medically cleared per MD. TREATMENT CODES/TIME: [id number], 27minutes (09:00) [facility]
[2018-08-07] MEDS: Ferrous Sulfate 44 MG/ML Liquid 325 MG NG ×2 (09:58→19:11)
--- NOTE | 2018-08-07 11:16 | PT.INTREAT ---
Date of service: 08/07/18 Time of Service: 11:16 PT Notes Inpatient Physical Therapy Treatment Note [facility] Date: 08/07/18 PRECAUTIONS: Fall SUBJECTIVE: Christie states that she did not sleep well, and is feeling tired and not well today. OBJECTIVE: PAIN: No c/o pain BED MOBILITY/TRANSFERS Supine-sit: S Sit-stand: CGA Stand-sit: CGA GAIT Assistive Device: 4WW Weight bearing: Full Assist: CGA Distance: 15' x2 Deviation: Slow pace, seated rest x1 TOILETING: Patient toileted with assist (performed x2) ASSESSMENT: Patient tolerated session well with complaint of increased fatigue. She was able to tolerate a progression in gait distance with 4WW. She would benefit from continued gait and transfer training as well as strengthening for improved mobility. PLAN: Continue with PT's POC TREATMENT CODE/TIME: 35 minutes; [id number], [id number]
--- NOTE | 2018-08-07 11:56 | W.NUTRFU ---
Date of service: 08/07/18 Time of Service: 11:57 Nutritional Follow up NOTE: Ms. Gardiner is having increased stool output. It is noted that cycling the tube feedings was initiated. It is unclear if cycling the feedings has helped her stool output. Would recommend a trial of bolus feeds which can sometimes help to minimize stool output. Her weight is fairly stable at 94.6 kg. Jevity 1.2 micki bolus 390 ml, four times per day. Would consider giving immodium 30 minutes prior to each feeding. Recommend 175 ml of free water pre and post feed or in some manner to achieve a total of at least 1400 ml of free water. Would recommend adding one packet of Maximiliano, glutamine and arginine supplement for wound healing, to one of the flushes, twice daily. 1. Will monitor tolerance to new feeding regimen or whatever is decided. Will monitor weight. 2. Will evaluate nutrition care plan ongoing and adjust as needed. Time Spent in Nutritional Counseling and Treatment: BERNABE
[2018-08-07 16:08] VITALS: BP 151/98; PULSE 95; RESP 20; TEMP 37.3; O2SAT 95
--- NOTE | 2018-08-07 16:11 | PT.INPN ---
Date of service: 08/07/18 Time of Service: 05:00 PT Notes Date: 08/07/18 Referring Doctor: Dr. Sigala PT Orders: PT CONSULT: deconditioned, long hospitalization. Not able to ambulate at this time Precautions: fall, standard Treatment Dates: 07/25/18 - 08/07/18 Patient Profile/Admitting Diagnosis: Patient has had a prolonged hospitalization for management of hypotension and schizophrenia. She's participated in PT intervention 1-2x/day for the past 14 days, with a total of 22 sessions. PMHX: cognitive dysfunction; HTN; GERD; schizophrenia; Graves disease; esophageal stricture s/p dilation Social History/Home Situation: Patient lives alone in a single level home. She uses a 4WW at night, and according to family present at time of eval, has been encouarged to use this during the day as well, although with limited compliance. She has a shipping and receiving specialist who comes in to help with meals, grocery shopping and housework. She has supportive family in the area, who have been present here at the hospital throughout her stay. Equipment Owned/DME: 4WW Subjective: Christie states that she is ready to work with PT. She denies pain. States that she's tired from walking this morning. Objective: General Observation: Resting in chair. PEG tube and a Bell catheter. Mental Status: Alert. Patient responds appropriately throughout session. Pain: denies ROM: Right Upper Extremity: AROM allows shoulder flexion to 150 degrees. Wrist and elbow motion are WNL. Left Upper Extremity: AROM allows shoulder flexion to 150 degrees. Wrist and elbow motion are WNL. Right Lower Extremity: Hip flexion allows 90 degrees functionally. Knee motion 0-120 bilaterally. Ankle motion allows 0 degrees DF only. Left Lower Extremity: Hip flexion allows 90 degrees functionally. Knee motion 0-120 bilaterally. Ankle motion allows 0 degrees DF only. Strength: Right Upper Extremity: Shoulder flexion 4/5. Biceps 4/5. Left Upper Extremity: Shoulder flexion 4/5. Biceps 4/5. Right Lower Extremity: Patient is functionally able to perform SLR without extension lag. Ankle DF is 3/5 bilat. HS 3/5 bilat. Left Lower Extremity: Patient is functionally able to perform SLR without extension lag. Ankle DF is 3/5 bilat. HS 3/5 bilat. Sensation: intact distally Bed Mobility/Transfers: rolling to side: independent supine-sit: supervision sit-stand: min A x 2 stand-sit: min A x 2CGA Able to perform partial supine (HOB 30 degrees) to long sit independently. She is able to WB through heels and UEs to scoot up in bed. Gait: Patient is able to ambulate 15' with 4WW with CGA x 2. She requires cues and increased time to perform, with reports of LE fatigue during ambulation. Balance: Static sitting: Good Dynamic sitting good Static standing fair Dynamic standing: fair Treatment: Today's session consisted of instruction in a therapeutic exercise program in addition to gait and transfer training. She was instructed in supine and seated activities, with addition of resisted exercises with use of theraband. Full therex program can be found on flowsheet. Assessment: Patient is a 63 year old female referred to physical therapy services with the diagnosis of deconditioned, long hospitalization. Not able to ambulate at this time. Patient has been participating in skilled PT intervention 1-2 times per day for the past 14 days, with significant improvements in mobility and activity tolerance. Her mental status has significantly improved, and she is now able to follow commands and participate with PT sessions, and has subsequently demonstrated remarkable gains in the past week. She requires continue PT intervention to maximize mobility and independence to allow for eventual transition back to assisted living. Due to her continued limitations in mobility, she will require a stay in prison prior to transition back to her assisted living apartment. Goals: Goals X1 week 1. Supine-Sit : supervision ( met) 2. Sit-Supine : supervision (met) 3. Sit-Stand : supervision (progressing toward) 4. Stand-Sit : supervision (progressing toward) 5. Bed-Chair : CG with 4WW (met) 6. Chair-Bed : CG with 4WW(met) 7. Gait : CG with 4WW x 50' (not met) Plan of Care/Treatment Plan: 1-2x/day, 7 days/week x 1 week. Plan of care has been reviewed with the SENIOR TRIAL ATTORNEY providing the service under Physical Therapy direction. Initiate Physical Therapy intervention for strengthening, bed mobility, transfers, gait, stairs, balance training, use of assistive device. DISCHARGE RECOMMENDATIONS:Will require SNF for further rehabilitation once medically stable. TREATMENT CODE/TIME: 3:00-3:25 (25 minutes) ([id number], [id number])
--- NOTE | 2018-08-07 16:41 | W.PM.PROGNOT ---
Date of Service Date of service: 08/07/18 Time of Service: 16:40 Assessment and Plan (1) Schizophrenia: Current visit: No Status: Chronic Restarted home meds as above on 07/19. Ms. 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 Per recommendations patient was transferred to the ICU, and initiated on standing dose frequent IV Ativan - she now has improved mentation, interaction, following commands, and appears at baseline mental status. Had been maintained on Q4 hour oral Lorazepam, change to equivalent dosing long-acting benzo with Clonazepam previously, decreased dose following discussion with psych. Plan will be for a very slow taper planned over a 6 month course. Continues to appear stable and at baseline mental status. (2) Altered mental status: Current visit: Yes Status: Acute Initially described as episodes of confusion, 'staring', near unresponsive state while awake, with potential post-ictal like state - then with worsening affect and verbal responsiveness that declined significantly. 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 Responded well to Benzo therapy as above, now back to baseline. EEG and MRI X2 were negative. (3) Dysphagia: Current visit: Yes Status: Acute History of benign distal esophageal stricture by EGD, s/p dilation in 2007. There was also noted Unprotected aspiration as well as large GERD with evidence of esophagitis. However, repeat EGD here normal and Barium Swallow performed this hospitalization with no evidence of stricture, but with esophageal dysmotility and retention of barium in the esophagus. Patient treated for Aspiration pneumonia now on seperate occasions - s/p PEG tube placement 07/19. Maintaining NPO status with continued Tube Feeds. Also restarted home meds via Peg Tube, with continued aspiration precautions. Due to hypotension from trial of ativan discontinued short acting Cardizem and initiated QHS Imipramine. Also on treatment of GERD with PPI therapy. Will ultimately need outpatient manometry. Of note, had been having problems with initiation of swallowing which appeared new and likely related to her altered mental status/catatonic state from withholding of her psych medications. She has undergone repeat speech evaluation and now able to initiate swallowing well, but with continued and significant discomfort after due to her Esophageal Dysmotility. (4) Esophageal dysmotility: Current visit: Yes Status: Acute Treatment as above. (5) Hypotension: Current visit: Yes Status: Resolved Initially, hypotensive to the point of requiring pressor support, and with evidence of end-organ damage with KJ and elevation in Lactate - unknown etiology. Potential Dehydration in the setting of initiation of HCTZ vs. Sepsis - although no evidence of infiltrate or acute infection initially. Does not appear to have been adrenal insufficiency, with steroids weaned off. Echo without clear cardiogenic etiology, and no persistent arrhythmias on monitor. Aspiration pneumonia/recurrent aspiration events now seem like the most likely scenario. Appears resolved. Currently with mild bibasilar crackles and mild weight gain - attempt dose of IV diuretic therapy. (6) Bradycardia: Current visit: No Status: Resolved Abnormally normal heart rate during initial bout of hypotension, then frankly bradycardic - reportedly had a bout of junctional rhythm as well. However, review of EKG by Cardiology/Electrophysiology with note of Sinus Bradycardia. Avoid jovan agents - also with tachycardia noted. 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 (7) Hypernatremia: Current visit: Yes Status: Resolved Minimal. Continue Tube Feeds, and Free Water via Peg Tube. (8) KJ (acute kidney injury): Current visit: Yes Status: Resolved Creatinine stable. (9) Anemia: Current visit: Yes Status: Chronic Stable but low hgb, heme negative stool. Iron studies with low iron, low TIBC, and low ferritin. B12 normal but wit low FA. TSH normal as well. Continue PPI therapy, Ferrous sulfate and Folic Acid supplements. Added Vitamin C as well. (10) DVT prophylaxis: Current visit: Yes Status: Acute Continue Enoxaparin. (11) Advance directive on file: Current visit: Yes Status: Acute DNR/DNI. Subjective Interval history since last seen: 63-year-old woman with history of cognitive delay and Hypertension, admitted from [facility] Emergency Department with a diagnosis of Hypotension. Ms. Gardiner has a history of cognitive dysfunction, HTN, GERD, and Schizophrenia. She was initially sent to the emergency room because of several days of nonspecific weakness. In the ED she was noted to be significantly hypotensive with blood pressures in the 60s systolic, but without tachycardia. She was given fluid resuscitation and started on levophed. Initial laboratory evaluation of note for leukocytosis, low-grade pyuria (5-10 white cells), negative chest x-ray and CT of the abdomen that was unremarkable except for a known cyst in the right lower quadrant. She was then referred for admission for further evaluation and treatment. Since her admission Blood pressure eventually improved and she has remained off pressor support after recurrence of her hypotension, thought likely secondary to aspiration pneumonia/pneumonitis. Her Urine and Blood Cultures have remained negative, and her C. Diff and Fecal Leukocytes were negative as well. CT of the chest and ECHO have been normal. She did however show evidence of difficulty with swallowing, and a Barium Swallow revealed evidence of barium retention and esophageal dysmotility. Subsequent EGD was negative. Mrs. Gardiner had remained NPO and without oral meds or food for quite some time - successfully underwent PEG tube placement on 07/19 and restarted on her home medications. The Patient is an extremely pleasant and stable woman, previously highly independent and living on her own. Her mental status declined significantly from her baseline - become essentially nonverbal and not following commands. Thought to be likely catatonia psychiatry was consulted and confirmed diagnosis. She was moved to the ICU and given trial of benzodiazepine therapy with excellent success. She is now awake and alert and appears back to baseline mental status. Ms. Gardiner underwent a repeat speech evaluation with improved ability to swallow with return of her mental status, but as expected with a great deal of esophageal dysphagia and resultant discomfort given her esophageal dysmotility. Plan is for SNF placement for skilled rehab - currently awaiting placement options. She reports mild dyspnea this morning, but remains without oxygen requirement. No other events reported. Remains afebrile. Exam Narrative Exam Narrative: General: Patient awake at time of visit, alert and at baseline mental status. NAD. Neck: Supple CV: Regular, mildly tachycardic, S1S2, No rubs, murmurs, or gallops. Pulmonary: Recurrence of mild bibasilar crackles. Abdomen: + Bowel Sounds, soft, nontender, nondistended. RLQ seroma unchanged. PEG Tube site clean. Vascular: No lower extremity edema Psych: Mood and affect at patient's baseline. Objective Objective Clinical Data: Abnormal lab results 08/07/18 08/07/18 Range/Units 06:40 06:40 RBC 3.25 L (4.00-5.20) m/cumm Hgb 8.1 L (12.0-15.5) g/dL Hct 27.4 L (36.0-46.0) % MCH 24.9 L (27.0-33.0) pg MCHC 29.6 L (32.0-36.0) g/dL RDW 18.8 H (11.7-14.6) % Absolute Monocytes 0.71 H (0.11-0.7) k/cumm Sodium 146 H (136-145) mmol/L Glucose 119 H (70-100) mg/dL Vital Signs Temperature 37.3 C 08/07/18 16:08 Temperature Source Tympanic 08/07/18 16:08 Pulse 95 H 08/07/18 16:08 Pulse Rhythm Regular 08/07/18 09:00 Pulse 94 H 07/30/18 16:43 Respiratory Rate 20 08/07/18 16:08 Respiratory Effort Non-Labored 08/07/18 09:00 Respiratory Depth Normal 08/07/18 09:00 Respiratory Pattern Normal 08/07/18 09:00 Blood Pressure 151/98 H 08/07/18 16:08 Blood Pressure Mean 115 07/30/18 16:43 Blood Pressure Position Supine 07/30/18 16:46 Pulse Oximetry 95 08/07/18 16:08 Respiratory End-tidal CO2 34 07/07/18 15:01 Oxygen Delivery Method Room Air 08/07/18 16:08 Oxygen Flow Rate 0 08/07/18 16:08 Fraction of Inspired Oxygen (FIO2) 28 07/16/18 00:30 Pain Level 0 08/07/18 04:10 Comment 08/04/18 04:50 Intake & Output 08/06/18 08/07/18 08/07/18 23:59 11:59 23:59 Intake Total 20 / 1645 1625 / 1645 Output Total 350 / 700 500 / 990 490 / 990 Balance -350 / -700 -480 / 655 1135 / 655 Weight 94.6 kg Intake: IV 20 / 50 30 / 50 Intake, Tube Feeding Amount 1595 / 1595 Output: Urine 350 / 700 500 / 950 450 / 950 Output, Residual 40 / 40 Other: Urine Color Yellow Yellow Yellow Urine Appearance Clear Cloudy Cloudy Comment fecal matter along tubing is cleaned off , campbell is patent and draining Stool Size Smear Moderate Small Stool Characteristics Soft Liquid Liquid Liquid Brown Brown Laboratory Results WBC 7.08 k/cumm (4.4-10.8) 08/07/18 06:40 RBC 3.25 m/cumm (4.00-5.20) L 08/07/18 06:40 Hgb 8.1 g/dL (12.0-15.5) L 08/07/18 06:40 Hct 27.4 % (36.0-46.0) L 08/07/18 06:40 MCV 84.3 fL (80-95) 08/07/18 06:40 MCH 24.9 pg (27.0-33.0) L 08/07/18 06:40 MCHC 29.6 g/dL (32.0-36.0) L 08/07/18 06:40 RDW 18.8 % (11.7-14.6) H 08/07/18 06:40 Plt Count 375 x1000/uL (130-400) 08/07/18 06:40 MPV 11.0 fL (8.0-11.0) 08/07/18 06:40 Abs Immat Gran (auto) Cancelled 07/13/18 08:05 Immature Gran % 0.3 08/07/18 06:40 Neutrophils % 55.8 08/07/18 06:40 Band Neutrophils % Cancelled 07/13/18 08:05 Lymphocytes % 26.1 08/07/18 06:40 Atypical Lymphs % Cancelled 07/13/18 08:05 Monocytes % 10.0 08/07/18 06:40 Eosinophils % 7.2 08/07/18 06:40 Basophils % 0.6 08/07/18 06:40 Absolute Neutrophils 3.95 k/cumm (1.2-6.7) 08/07/18 06:40 Absolute Lymphocytes 1.85 k/cumm (1.2-3.4) 08/07/18 06:40 Absolute Monocytes 0.71 k/cumm (0.11-0.7) H 08/07/18 06:40 Absolute Eosinophils 0.51 k/cumm (0.0-0.7) 08/07/18 06:40 Absolute Basophils 0.04 k/cumm (0.0-0.2) 08/07/18 06:40 Metamyelocytes Cancelled 07/13/18 08:05 Myelocytes Cancelled 07/13/18 08:05 Promyelocytes Cancelled 07/13/18 08:05 Nucleated RBCs Cancelled 07/13/18 08:05 Differential Comment Rbc morph reviewed 07/26/18 05:47 Other Cell Type Cancelled 07/13/18 08:05 RBC Morphology See below 07/26/18 05:47 Polychromasia Present 07/17/18 06:35 Hypochromasia 1+ 07/26/18 05:47 Poikilocytosis 1+ 07/17/18 06:35 Basophilic Stippling Cancelled 07/13/18 08:05 Anisocytosis 2+ 07/17/18 06:35 Microcytosis 2+ 07/26/18 05:47 Macrocytosis Cancelled 07/13/18 08:05 Spherocytes Cancelled 07/13/18 08:05 Target Cells Cancelled 07/13/18 08:05 Tear Drop Cells Cancelled 07/13/18 08:05 Ovalocytes 2+ 07/26/18 05:47 Stomatocytes Cancelled 07/13/18 08:05 [place] Bodies Cancelled 07/13/18 08:05 [place] Cells Cancelled 07/13/18 08:05 Acanthocytes (Spur) Cancelled 07/13/18 08:05 Schistocytes 1+ 07/26/18 05:47 D-Dimer 1329 ng/mlFEU (<500) H 07/07/18 21:15 Sodium 146 mmol/L (136-145) H 08/07/18 06:40 Potassium 3.8 mmol/L (3.5-5.1) 08/07/18 06:40 Chloride 107 mmol/L (98-107) 08/07/18 06:40 Carbon Dioxide 31.8 mmol/L (21.0-32.0) 08/07/18 06:40 Anion Gap 7.2 mmol/L (3-11) 08/07/18 06:40 BUN 17 mg/dL (7-18) 08/07/18 06:40 Creatinine 0.77 mg/dL (0.55-1.02) 08/07/18 06:40 Estimated GFR/1.73 m2 >= 60.00 (mL/min/1.73m2) 08/07/18 06:40 Glucose 119 mg/dL (70-100) H 08/07/18 06:40 Lactate 1.0 mmol/L (0.6-1.4) 07/06/18 07:20 Calcium 8.7 mg/dL (8.5-10.1) 08/07/18 06:40 Magnesium 1.9 mg/dL (1.8-2.4) 08/07/18 06:40 Iron 20 ug/dL (50-175) L 07/25/18 16:13 TIBC 235 ug/dL (250-450) L 07/25/18 16:13 Transferrin % Sat 9 % (15-50) L 07/25/18 16:13 Ferritin 35 ng/mL (8-388) 07/25/18 16:13 Total Bilirubin 0.3 mg/dL (0.2-1.0) 07/12/18 05:50 Conjugated Bilirubin 0.10 mg/dL (0.00-0.20) 07/12/18 05:50 AST 24 U/L (15-37) 07/12/18 05:50 ALT 47 U/L (12-78) 07/12/18 05:50 Alkaline Phosphatase 65 U/L (46-116) 07/12/18 05:50 Ammonia < 10 umol/L (11-32) L 07/15/18 10:20 Troponin I 0.02 ng/mL (0.00-0.06) 07/08/18 05:00 NT-Pro-B Natriuret Pep 744 pg/mL (-299) H 07/31/18 19:52 Total Protein 4.6 g/dL (6.4-8.2) L 07/12/18 05:50 Albumin 2.2 g/dL (3.4-5.0) L 07/12/18 05:50 Lipase 252 U/L (73-393) 07/04/18 13:15 Vitamin B12 471 pg/mL (193-986) 07/25/18 16:13 Folate 8.0 ng/mL (8.6-20.0) L 07/25/18 16:13 Procalcitonin <0.10 ng/mL (<or=1.5) 07/08/18 06:24 Calcitonin Cancelled 07/08/18 06:24 TSH 1.09 uIU/mL (0.358-3.74) 07/06/18 07:20 Urine Color Yellow (Yellow) 07/14/18 13:05 Urine Clarity Clear 07/14/18 13:05 Urine pH 5.0 (5-8) 07/14/18 13:05 Ur Specific [place] <= 1.005 (1.005-1.025) 07/14/18 13:05 Urine Protein Negative mg/dL (Negative) 07/14/18 13:05 Urine Ketones Negative mg/dL (Negative) 07/14/18 13:05 Urine Blood Small (Negative) H 07/14/18 13:05 Urine Nitrite Negative (Negative) 07/14/18 13:05 Urine Bilirubin Negative (Negative) 07/14/18 13:05 Urine Urobilinogen 0.2 EU/dL (Up TO 0.2) 07/14/18 13:05 Ur Leukocyte Esterase Negative (Negative) 07/14/18 13:05 Urine RBC 3-5 (0-2) H 07/14/18 13:05 Urine WBC 0-2 HPF (0-5) 07/14/18 13:05 Ur Epithelial Cells Rare HPF (Negative) 07/14/18 13:05 Urine Crystals Rare amorphous HPF (Negative) 07/14/18 13:05 Urine Bacteria Rare HPF (Negative) 07/14/18 13:05 Urine Casts Negative LPF (Negative) 07/14/18 13:05 Urine Mucus Trace (Negative) 07/14/18 13:05 Ur Culture Indicated? C&s done as ordered 07/14/18 13:05 Urine Glucose 100 mg/dL (Negative) 07/14/18 13:05 Stool Campylobacter PCR See comments 07/06/18 12:45 Stool Salmonella PCR See comments 07/06/18 12:45 Stool Shigella PCR See comments 07/06/18 12:45 Vancomycin Trough 18.9 ug/mL (10.0-20.0) 07/20/18 06:17 Shiga Toxin (PCR) See comments 07/06/18 12:45 Path Cons Comment See comment 07/06/18 07:20 Miscellaneous Test Cancelled 07/08/18 06:24
[2018-08-07] MEDS: Normal Saline Flush 10 ML SYR IVP (17:27)
[2018-08-07] MEDS: Furosemide 20 MG/2 ML VIAL IVP (17:27)
--- NOTE | 2018-08-07 19:15 | NUR.NOTE ---
Nursing Note: Report received from previous nurse, patient is in stable condition, currently resting in bed with no report of pain or discomfort at this time. The bed is in the low and locked position, side rails up x2, call light within reach, bed alarm on.
[2018-08-07] MEDS: Donepezil 5 MG TAB 10 MG UD (22:03)
[2018-08-07] MEDS: OLANZapine 5 MG TAB 10 MG UD (22:03)
[2018-08-07 23:49] VITALS: BP 123/87; PULSE 86; RESP 21; TEMP 36.5; O2SAT 97
[2018-08-08 04:53] VITALS: BP 129/86; PULSE 87; RESP 24; TEMP 36.6; O2SAT 97
[2018-08-08 07:09] LABS: Abs Immature Grans 0.02 k/cumm (0.0-0.09); Absolute Basophil Count 0.06 k/cumm (0.0-0.2); Absolute Eosinophil Count 0.56 k/cumm (0.0-0.7); Absolute Monocyte Count 0.66 k/cumm (0.11-0.7); Absolute Neutrophil Count 4.53 k/cumm (1.2-6.7); Basophils % 0.8; Eosinophils % 7.2; HCT 29.8 % (36.0-46.0); HGB 8.7 g/dL (12.0-15.5); Immature Grans % 0.3; Lymphocytes % 25.5; Mean Corp. HGB Concentration 29.2 g/dL (32.0-36.0); Mean Corpuscular Hemoglobin 24.5 pg (27.0-33.0); Mean Corpuscular Volume 83.9 fL (80-95); Monocytes % 8.4; Neutrophils % 57.8; Platelet Count 399 x1000/uL (130-400); RBC 3.55 m/cumm (4.00-5.20); White Blood Cell Count 7.83 k/cumm (4.4-10.8)
[2018-08-08 07:42] LABS: Anion Gap 8.1 mmol/L (3-11); BUN 16 mg/dL (7-18); CO2 30.9 mmol/L (21.0-32.0); CREATININE 0.77 mg/dL (0.55-1.02); Calcium 8.9 mg/dL (8.5-10.1); Chloride 104 mmol/L (98-107); Glucose 87 mg/dL (70-100); Magnesium 1.8 mg/dL (1.8-2.4); Potassium 3.5 mmol/L (3.5-5.1); Sodium 143 mmol/L (136-145)
[2018-08-08 07:50] VITALS: BP 138/101; PULSE 93; RESP 20; TEMP 36.8; O2SAT 93
[2018-08-08] MEDS: amLODIPine 5 MG TAB PO (09:56)
[2018-08-08] MEDS: Cyanocobalamin 500 MCG TAB 1000 MCG NG (09:56)
[2018-08-08] MEDS: Potassium Chloride 20 MEQ TABCR 40 MEQ PO (09:57)
[2018-08-08] MEDS: Magnesium Oxide 400 MG TAB JT (09:57)
[2018-08-08] MEDS: Memantine 5 MG TAB 10 MG UD ×2 (09:57→21:31)
[2018-08-08] MEDS: clonazePAM 1 MG TAB PO ×2 (09:58→21:28)
[2018-08-08] MEDS: Enoxaparin 40 MG/0.4 ML SYR SC (09:58)
[2018-08-08] MEDS: Pantoprazole 40 MG VIAL IVP (09:58)
[2018-08-08] MEDS: Folic Acid 1 MG TAB NG (09:58)
[2018-08-08] MEDS: Ascorbic Acid 500 MG TAB NG ×2 (09:58→21:28)
[2018-08-08] MEDS: Normal Saline Flush 10 ML SYR IVP (09:59)
[2018-08-08] MEDS: Methimazole 5 MG TAB UD (10:00)
[2018-08-08] MEDS: Nystatin POWDER 60 GM JAR TP ×2 (10:00→21:29)
--- NOTE | 2018-08-08 10:13 | OT.INTREAT ---
Date of service: 08/08/18 Time of Service: 08:50 Occupational Therapy Notes Occupational Therapy Inpatient Treatment Note Date: 08/08/18 PRECAUTIONS: NPO, Fall, Standard SUBJECTIVE: Pt would like to shower today, she reports that she feels good today and is agreeable to OT session. OBJECTIVE: PAIN:no c/o pain FUNCTIONAL MOBILITY pt performed functional mobility with PT to get to the shower room, please refer to note. BATHING: In shower, sitting on shower bench with min-mod vc pt was educated on use of shower head and water temperature adjust which was performed throughout session by OT. Upper Body: (I) face, max (A) back, mod (A) underarms and abdomen, (I) (B) UE min vc for water/soap combination and rinsing techniques Lower Body: (I) upper legs, max (A) lower legs as pt reports I can't do it pt felt unsure about leaning forward in the shower. Max (A) glutes DRESSING: Sitting on shower bench post shower with min vc Upper Extremity: Min (A) don and doff hospital gown Lower Extremity: Max (A) don and doff (B) socks. ASSESSMENT: Pt was demonstrating increased (I) in ADLs for her bathing routine. She was able to perform bathing routine in the shower while sitting on shower bench which is a progression from sitting in her chair in her room at previous sessions. Pt is demonstrating increased functional use of her (B) arms and was receptive to education and training provided. She was able to perform bathing routine with (A), she is unable to perform this (I) however is making progressions. Pt would benefit from continued skilled OT services for progression of (I) in ADLs and functional activity tolerance. PLAN: OT will continue to progress pts (I) in ADL routines. TREATMENT CODES/TIME: [id number], 49 minutes (08:50) [facility]
--- NOTE | 2018-08-08 10:18 | OTTR_ITS ---
Date of service: 08/08/18 Time of Service: 08:50 Occupational Therapy Notes Occupational Therapy Inpatient Treatment Note Date: 08/08/18 PRECAUTIONS: NPO, Fall, Standard SUBJECTIVE: Pt would like to shower today, she reports that she feels good today and is agreeable to OT session. OBJECTIVE: PAIN:no c/o pain FUNCTIONAL MOBILITY pt performed functional mobility with PT to get to the shower room, please refer to note. BATHING: In shower, sitting on shower bench with min-mod vc pt was educated on use of shower head and water temperature adjust which was performed throughout session by OT. Upper Body: (I) face, max (A) back, mod (A) underarms and abdomen, (I) (B) UE min vc for water/soap combination and rinsing techniques Lower Body: (I) upper legs, max (A) lower legs as pt reports I can't do it pt felt unsure about leaning forward in the shower. Max (A) glutes DRESSING: Sitting on shower bench post shower with min vc Upper Extremity: Min (A) don and doff [facility] gown Lower Extremity: Max (A) don and doff (B) socks. ASSESSMENT: Pt was demonstrating increased (I) in ADLs for her bathing routine. She was able to perform bathing routine in the shower while sitting on shower bench which is a progression from sitting in her chair in her room at previous sessions. Pt is demonstrating increased functional use of her (B) arms and was receptive to education and training provided. She was able to perform bathing routine with (A), she is unable to perform this (I) however is making progressions. Pt would benefit from continued skilled OT services for p rogression of (I) in ADLs and functional activity tolerance. PLAN: OT will continue to progress pts (I) in ADL routines. TREATMENT CODES/TIME: [id number], 49 minutes (08:50) [facility]
[2018-08-08] MEDS: Ferrous Sulfate 44 MG/ML Liquid 325 MG NG ×2 (10:20→21:28)
[2018-08-08] MEDS: Loperamide 2 MG CAP UD ×2 (10:21→13:20)
[2018-08-08 11:40] VITALS: BP 115/84; PULSE 94; RESP 20; TEMP 36.7; O2SAT 93
--- NOTE | 2018-08-08 12:05 | PDOC.CMPRO ---
Care Management Progress Note S/O: Christie remains pleasant in interaction and continues to make good effort working with PT/OT/Speech/Psych/Nutrition and medical staff. SNF placement coordination has been difficult given her dual diagnosis, medical complexity and family choice. She will likely enter [facility] for skilled rehab stay at [facility] while working towards baseline and attending outpatient appointments including possible manometry. CM will continue to follow. A: 63 yo disabled female admitted for hypotension, aspiration pneumonia now with a PEG tube placement. P: SNF coordination continues in anticipation of medical stabilization, Christie continues to work with S/T, Psychiatry, P/T, and OT. Christie will require follow up for outpatient manometry per MD. CM will continue to provide support ongoing discharge planning and disposition.
--- NOTE | 2018-08-08 12:06 | PT.INTREAT ---
Date of service: 08/08/18 Time of Service: 08:30 PT Notes [facility] Date: 08/08/18 PRECAUTIONS: Fall SUBJECTIVE: Christie states that she is anxious to take a shower with OT today. OBJECTIVE: PAIN: No c/o pain BED MOBILITY/TRANSFERS Supine-sit: S Sit-stand: CGA Stand-sit: CGA GAIT Assistive Device: 4WW Weight bearing: Full Assist: CGA Distance: 15' x3 Deviation: Slow pace, chair follow Therex: Post rx, patient reports that she is too fatigued from showering to perform therex activities. ASSESSMENT: Patient tolerated session well with complaint of increased fatigue. She was able to tolerate a progression in gait distance with 4WW. She would benefit from continued gait and transfer training as well as strengthening for improved mobility. PLAN: Continue with PT's POC TREATMENT CODE/TIME: (8:30-8:50; 9:25-9:35); [id number]
--- NOTE | 2018-08-08 12:25 | CMPROGNOTE_ITS ---
Care Management Progress Note S/O: Christie remains pleasant in interaction and continues to make good effort working with PT/OT/Speech/Psych/Nutrition and medical staff. SNF placement coordination has been difficult given her dual diagnosis, medical complexity and family choice. She will likely enter [facility] for skilled rehab stay at [facility] while working towards baseline and attending outpatient appointments including possible manometry. CM will continue to follow. A: 63 yo disabled female admitted for hypotension, aspiration pneumonia now with a PEG tube placement. P: SNF coordination continues in anticipation of medical stabilization, Christie continues to work with S/T, Psychiatry, P/T, and OT. Christie will require follow up for outpatient manometry per MD. CM will continue to provide support ongoing discharge planning and disposition.
--- NOTE | 2018-08-08 13:07 | PGE_ITS ---
Date of Service Date of service: 08/08/18 Time of Service: 13:05 Assessment and Plan (1) Schizophrenia: Current visit: No Status: Chronic Restarted home meds as above on 07/19. Ms. 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 Per recommendations patient was transferred to the ICU, and initiated on standing dose frequent IV Ativan - she now has improved mentation, interaction, following commands, and appears at baseline mental status. Had been maintained on Q4 hour oral Lorazepam, change to equivalent dosing long-acting benzo with Clonazepam previously, decreased dose following discussion with psych. Plan will be for a very slow taper planned over a 6 month course. Continues to appear stable and at baseline mental status. (2) Altered mental status: Current visit: Yes Status: Acute Initially described as episodes of confusion, 'staring', near unresponsive state while awake, with potential post-ictal like state - then with worsening affect and verbal responsiveness that declined significantly. 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 Responded well to Benzo therapy as above, now back to baseline. EEG and MRI X2 were negative. (3) Dysphagia: Current visit: Yes Status: Acute History of benign distal esophageal stricture by EGD, s/p dilation in 2007. There was also noted Unprotected aspiration as well as large GERD with evidence of esophagitis. However, repeat EGD here normal and Barium Swallow performed this hospitalization with no evidence of stricture, but with esophageal dysmotility and retention of barium in the esophagus. Patient treated for Aspiration pneumonia now on seperate occasions - s/p PEG tube placement 07/19. Maintaining NPO status with continued Tube Feeds. Also restarted home meds via Peg Tube, with continued aspiration precautions. Due to hypotension from trial of ativan discontinued short acting Cardizem and initiated QHS Imipramine. Also on treatment of GERD with PPI therapy. Will ultimately need outpatient manometry. Of note, had been having problems with initiation of swallowing which appeared new and likely related to her altered mental status/catatonic state from withholding of her psych medications. She has undergone repeat speech evaluation and now able to initiate swallowing well, but with continued and significant discomfort after due to her Esophageal Dysmotility. Will need outpatient GI work-up with manometry. (4) Esophageal dysmotility: Current visit: Yes Status: Acute Treatment as above. (5) Hypotension: Current visit: Yes Status: Resolved Initially, hypotensive to the point of requiring pressor support, and with evidence of end-organ damage with KJ and elevation in Lactate - unknown et iology. Potential Dehydration in the setting of initiation of HCTZ vs. Sepsis - although no evidence of infiltrate or acute infection initially. Does not appear to have been adrenal insufficiency, with steroids weaned off. Echo without clear cardiogenic etiology, and no persistent arrhythmias on monitor. Aspiration pneumonia/recurrent aspiration events now seem like the most likely scenario. Appears resolved. (6) Bradycardia: Current visit: No Status: Resolved Abnormally normal heart rate during initial bout of hypotension, then frankly bradycardic - reportedly had a bout of junctional rhythm as well. However, review of EKG by Cardiology/Electrophysiology with note of Sinus Bradycardia. Avoid jovan agents - also with tachycardia noted. 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 (7) Hypernatremia: Current visit: Yes Status: Resolved Resolved. Continue Tube Feeds, and Free Water via Peg Tube. Of note, patient with occasional bibasilar crackles and subjective dyspnea which responds to prn administration of lasix. Will decrease free water today and monitor. (8) KJ (acute kidney injury): Current visit: Yes Status: Resolved Creatinine stable. (9) Anemia: Current visit: Yes Status: Chronic Stable but low hgb, heme negative stool. Iron studies with low iron, low TIBC, and low ferritin. B12 normal but wit low FA. TSH normal as well. Continue PPI therapy, Ferrous sulfate and Folic Acid supplements. Added Vitamin C as well. (10) DVT prophylaxis: Current visit: Yes Status: Acute Continue Enoxaparin. (11) Advance directive on file: Current visit: Yes Status: Acute DNR/DNI. Subjective Interval history since last seen: 63-year-old woman with history of cognitive delay and Hypertension, admitted from [facility] Emergency Department with a diagnosis of Hypotension. Ms. Gardiner has a history of cognitive dysfunction, HTN, GERD, and Schizophrenia. She was initially sent to the emergency room because of several days of nonspecific weakness. In the ED she was noted to be significantly hypotensive with blood pressures in the 60s systolic, but without tachycardia. She was given fluid resuscitation and started on levophed. Initial laboratory evalu ation of note for leukocytosis, low-grade pyuria (5-10 white cells), negative chest x-ray and CT of the abdomen that was unremarkable except for a known cyst in the right lower quadrant. She was then referred for admission for further evaluation and treatment. Since her admission Blood pressure eventually improved and she has remained off pressor support after recurrence of her hypotension, thought likely secondary to aspiration pneumonia/pneumonitis. Her Urine and Blood Cultures have remained negative, and her C. Diff and Fecal Leukocytes were negative as well. CT of the chest and ECHO have been normal. She did however show evidence of difficulty with swallowing, and a Barium Swallow revealed evidence of barium retention and esophageal dysmotility. Subsequent EGD was negative. Mrs. Gardiner had remained NPO and without oral meds or food for quite some time - successfully underwent PEG tube placement on 07/19 and restarted on her home medications. The Patient is an extremely pleasant and stable woman, previously highly independent and living on her own. Her mental status declined significantly from her baseline - become essentially nonverbal and not following commands. Thought to be likely catatonia psychiatry was consulted and confirmed diagnosis. She was moved to the ICU and given trial of benzodiazepine therapy with excellent success. She is now awake and alert and appears back to baseline mental status. Ms. Gardiner underwent a repeat speech evaluation with improved ability to swallow with return of her mental status, but as expected with a great deal of esophageal dysphagia and resultant discomfort given her esophageal dysmotility. Plan is for SNF placement for skilled rehab - currently awaiting placement options. She has no complaints this morning. No other events reported. Remains afebrile. Exam Narrative Exam Narrative: General: Patient awake at time of visit, alert and at baseline mental status. NAD. Neck: Supple CV: Regular, nontachycardic, S1S2, No rubs, murmurs, or gallops. Pulmonary: Resolution of mild bibasilar crackles. Abdomen: + Bowel Sounds, soft, nontender, nondistended. RLQ seroma unchanged. PEG Tube site clean. Vascular: No lower extremity edema Psych: Mood and affect at patient's baseline. Objective Objective Clinical Data: Abnormal lab results 08/08/18 Range/Units 06:24 RBC 3.55 L (4.00-5.20) m/cumm Hgb 8.7 L (12.0-15.5) g/dL Hct 29.8 L (36.0-46.0) % MCH 24.5 L (27.0-33.0) pg MCHC 29.2 L (32.0-36.0) g/dL RDW 19.0 H (11.7-14.6) % Vital Signs Temperature 36.8 C 08/08/18 07:50 Temperature Source Tympanic 08/08/18 07:50 Pulse 93 H 08/08/18 07:50 Pulse Rhythm Regular 08/08/18 09:55 Pulse 94 H 07/30/18 16:43 Respiratory Rate 20 08/08/18 07:50 Respiratory Effort Non-Labored 08/08/18 09:55 Respiratory Depth Normal 08/08/18 09:55 Respiratory Pattern Normal 08/08/18 09:55 Blood Pressure 138/101 H 08/08/18 07:50 Blood Pressure Mean 115 07/30/18 16:43 Blood Pressure Position Supine 07/30/18 16:46 Pulse Oximetry 93 L 08/08/18 07:50 Respiratory End-tidal CO2 34 07/07/18 15:01 Oxygen Delivery Method Room Air 08/08/18 07:50 Oxygen Flow Rate 0 08/08/18 07:50 Fraction of Inspired Oxygen (FIO2) 28 07/16/18 00:30 Pain Level 0 08/08/18 04:53 Comment 08/04/18 04:50 Intake & Output 08/07/18 08/08/18 08/08/18 23:59 11:59 23:59 Intake Total 2405 / 2425 600 / 600 Output Total 810 / 1310 1308 / 1308 Balance 1595 / 1115 -708 / -708 Weight 92.8 kg Intake: IV 30 / 50 Intake, Tube Feeding Amount 2375 / 2375 600 / 600 Output: Urine 750 / 1250 1300 / 1300 Output, Residual 60 / 60 8 / 8 Other: Urine Color Yellow Yellow Urine Appearance Cloudy Cloudy Stool Size Small Stool Characteristics Liquid Laboratory Results WBC 7.83 k/cumm (4.4-10.8) 08/08/18 06:24 RBC 3.55 m/cumm (4.00-5.20) L 08/08/18 06:24 Hgb 8.7 g/dL (12.0-15.5) L 08/08/18 06:24 Hct 29.8 % (36.0-46.0) L 08/08/18 06:24 MCV 83.9 fL (80-95) 08/08/18 06:24 MCH 24.5 pg (27.0-33.0) L 08/08/18 06:24 MCHC 29.2 g/dL (32.0-36.0) L 08/08/18 06:24 RDW 19.0 % (11.7-14.6) H 08/08/18 06:24 Plt Count 399 x1000/uL (130-400) 08/08/18 06:24 MPV 11.0 fL (8.0-11.0) 08/08/18 06:24 Abs Immat Gran (auto) Cancelled 07/13/18 08:05 Immature Gran % 0.3 08/08/18 06:24 Neutrophils % 57.8 08/08/18 06:24 Band Neutrophils % Cancelled 07/13/18 08:05 Lymphocytes % 25.5 08/08/18 06:24 Atypical Lymphs % Cancelled 07/13/18 08:05 Monocytes % 8.4 08/08/18 06:24 Eosinophils % 7.2 08/08/18 06:24 Basophils % 0.8 08/08/18 06:24 Absolute Neutrophils 4.53 k/cumm (1.2-6.7) 08/08/18 06:24 Absolute Lymphocytes 2.00 k/cumm (1.2-3.4) 08/08/18 06:24 Absolute Monocytes 0.66 k/cumm (0.11-0.7) 08/08/18 06:24 Absolute Eosinophils 0.56 k/cumm (0.0-0.7) 08/08/18 06:24 Absolute Basophils 0.06 k/cumm (0.0-0.2) 08/08/18 06:24 Metamyelocytes Cancelled 07/13/18 08:05 Myelocytes Cancelled 07/13/18 08:05 Promyelocytes Cancelled 07/13/18 08:05 Nucleated RBCs Cancelled 07/13/18 08:05 Differential Comment Rbc morph reviewed 07/26/18 05:47 Other Cell Type Cancelled 07/13/18 08:05 RBC Morphology See below 07/26/18 05:47 Polychromasia Present 07/17/18 06:35 Hypochromasia 1+ 07/26/18 05:47 Poikilocytosis 1+ 07/17/18 06:35 Basophilic Stippling Cancelled 07/13/18 08:05 Anisocytosis 2+ 07/17/18 06:35 Microcytosis 2+ 07/26/18 05:47 Macrocytosis Cancelled 07/13/18 08:05 Spherocytes Cancelled 07/13/18 08:05 Target Cells Cancelled 07/13/18 08:05 Tear Drop Cells Cancelled 07/13/18 08:05 Ovalocytes 2+ 07/26/18 05:47 Stomatocytes Cancelled 07/13/18 08:05 Telles-Calcium Bodies Cancelled 07/13/18 08:05 [place] Cells Cancelled 07/13/18 08:05 Acanthocytes (Spur) Cancelled 07/13/18 08:05 Schistocytes 1+ 07/26/18 05:47 D-Dimer 1329 ng/mlFEU (<500) H 07/07/18 21:15 Sodium 143 mmol/L (136-145) 08/08/18 06:24 Potassium 3.5 mmol/L (3.5-5.1) 08/08/18 06:24 Chloride 104 mmol/L (98-107) 08/08/18 06:24 Carbon Dioxide 30.9 mmol/L (21.0-32.0) 08/08/18 06:24 Anion Gap 8.1 mmol/L (3-11) 08/08/18 06:24 BUN 16 mg/dL (7-18) 08/08/18 06:24 Creatinine 0.77 mg/dL (0.55-1.02) 08/08/18 06:24 Estimated GFR/1.73 m2 >= 60.00 (mL/min/1.73m2) 08/08/18 06:24 Glucose 87 mg/dL (70-100) 08/08/18 06:24 Lactate 1.0 mmol/L (0.6-1.4) 07/06/18 07:20 Calcium 8.9 mg/dL (8.5-10.1) 08/08/18 06:24 Magnesium 1.8 mg/dL (1.8-2.4) 08/08/18 06:24 Iron 20 ug/dL (50-175) L 07/25/18 16:13 TIBC 235 ug/dL (250-450) L 07/25/18 16:13 Transferrin % Sat 9 % (15-50) L 07/25/18 16:13 Ferritin 35 ng/mL (8-388) 07/25/18 16:13 Total Bilirubin 0.3 mg/dL (0.2-1.0) 07/12/18 05:50 Conjugated Bilirubin 0.10 mg/dL (0.00-0.20) 07/12/18 05:50 AST 24 U/L (15-37) 07/12/18 05:50 ALT 47 U/L (12-78) 07/12/18 05:50 Alkaline Phosphatase 65 U/L (46-116) 07/12/18 05:50 Ammonia < 10 umol/L (11-32) L 07/15/18 10:20 Troponin I 0.02 ng/mL (0.00-0.06) 07/08/18 05:00 NT-Pro-B Natriuret Pep 744 pg/mL (-299) H 07/31/18 19:52 Total Protein 4.6 g/dL (6.4-8.2) L 07/12/18 05:50 Albumin 2.2 g/dL (3.4-5.0) L 07/12/18 05:50 Lipase 252 U/L (73-393) 07/04/18 13:15 Vitamin B12 471 pg/mL (193-986) 07/25/18 16:13 Folate 8.0 ng/mL (8.6-20.0) L 07/25/18 16:13 Procalcitonin <0.10 ng/mL (<or=1.5) 07/08/18 06:24 Calcitonin Cancelled 07/08/18 06:24 TSH 1.09 uIU/mL (0.358-3.74) 07/06/18 07:20 Urine Color Yellow (Yellow) 07/14/18 13:05 Urine Clarity Clear 07/14/18 13:05 Urine pH 5.0 (5-8) 07/14/18 13:05 Ur Specific [place] <= 1.005 (1.005-1.025) 07/14/18 13:05 Urine Protein Negative mg/dL (Negative) 07/14/18 13:05 Urine Ketones Negative mg/dL (Negative) 07/14/18 13:05 Urine Blood Small (Negative) H 07/14/18 13:05 Urine Nitrite Negative (Negative) 07/14/18 13:05 Urine Bilirubin Negative (Negative) 07/14/18 13:05 Urine Urobilinogen 0.2 EU/dL (Up TO 0.2) 07/14/18 13:05 Ur Leukocyte Esterase Negative (Negative) 07/14/18 13:05 Urine RBC 3-5 (0-2) H 07/14/18 13:05 Urine WBC 0-2 HPF (0-5) 07/14/18 13:05 Ur Epithelial Cells Rare HPF (Negative) 07/14/18 13:05 Urine Crystals Rare amorphous HPF (Negative) 07/14/18 13:05 Urine Bacteria Rare HPF (Negative) 07/14/18 13:05 Urine Casts Negative LPF (Negative) 07/14/18 13:05 Urine Mucus Trace (Negative) 07/14/18 13:05 Ur Culture Indicated? C&s done as ordered 07/14/18 13:05 Urine Glucose 100 mg/dL (Negative) 07/14/18 13:05 Stool Campylobacter PCR See comments 07/06/18 12:45 Stool Salmonella PCR See comments 07/06/18 12:45 Stool Shigella PCR See comments 07/06/18 12:45 Vancomycin Trough 18.9 ug/mL (10.0-20.0) 07/20/18 06:17 Shiga Toxin (PCR) See comments 07/06/18 12:45 Path Cons Comment See comment 07/06/18 07:20 Miscellaneous Test Cancelled 07/08/18 06:24
--- NOTE | 2018-08-08 15:09 | PT.INTREAT ---
Date of service: 08/08/18 Time of Service: 15:10 PT Notes Inpatient Physical Therapy Treatment Note [facility] Date: 08/08/18 PRECAUTIONS: Fall SUBJECTIVE: Christie is agreeable to participating in PT, although states that she would like to get back into bed after she is done. There is an also expresses concern regarding the long-term plan for her. She states that she is afraid that she never be able to return home because of her feeding tube and weakness. OBJECTIVE: PAIN: No complaints of pain BED MOBILITY/TRANSFERS Sit-supine: S Sit-stand: CGA Stand-sit: CGA Bed-Chair: CGA Chair-bed: CGA GAIT Assistive Device: 4 WW Weight bearing: Full Assist: CGA Distance: 15'+ 25' Deviation: Seated rest x1 TOILETING: Stand?pivot transfer from bed<>commode. Patient toileted with assist. THEREX: Patient completed several supine exercises, including sit ups, SLR, rows and shoulder horizontal abduction with green Thera-Band, as per flow sheet. ASSESSMENT: Patient tolerated a progression in gait distance with 4 WW support and CGA. Patient would benefit from continued gait and transfer training as well as strengthening for improved mobility and ability to perform daily functional tasks at a more independent level. PLAN: Continue with PTs POC TREATMENT CODE/TIME: 30 minutes; [id number], [id number]
[2018-08-08 16:18] VITALS: BP 135/91; PULSE 91; RESP 20; TEMP 37; O2SAT 95
[2018-08-08 19:31] VITALS: BP 137/92; PULSE 86; RESP 18; TEMP 36.8; O2SAT 100
[2018-08-08] MEDS: Donepezil 5 MG TAB 10 MG UD (21:29)
[2018-08-08] MEDS: Normal Saline Flush 10 ML SYR 20 ML IVP (21:29)
[2018-08-08] MEDS: OLANZapine 5 MG TAB 10 MG UD (21:30)
[2018-08-08 23:46] VITALS: BP 118/81; PULSE 80; RESP 19; TEMP 37.4; O2SAT 97
[2018-08-09 07:30] LABS: Abs Immature Grans 0.05 k/cumm (0.0-0.09); Absolute Basophil Count 0.03 k/cumm (0.0-0.2); Absolute Eosinophil Count 0.39 k/cumm (0.0-0.7); Absolute Lymphocyte Count 1.67 k/cumm (1.2-3.4); Absolute Monocyte Count 0.87 k/cumm (0.11-0.7); Basophils % 0.2; Eosinophils % 3.1; HCT 30.6 % (36.0-46.0); Immature Grans % 0.4; Lymphocytes % 13.3; Mean Corp. HGB Concentration 29.4 g/dL (32.0-36.0); Mean Corpuscular Hemoglobin 24.7 pg (27.0-33.0); Mean Corpuscular Volume 84.1 fL (80-95); Mean Platelet Volume 11.4 fL (8.0-11.0); Monocytes % 6.9; Neutrophils % 76.1; Platelet Count 428 x1000/uL (130-400); RBC 3.64 m/cumm (4.00-5.20); RBC Distribution Width 18.9 % (11.7-14.6); White Blood Cell Count 12.56 k/cumm (4.4-10.8)
[2018-08-09 07:33] VITALS: BP 146/100; PULSE 95; RESP 18; TEMP 36.6; O2SAT 96
[2018-08-09 07:33] LABS: Anion Gap 8.1 mmol/L (3-11); BUN 24 mg/dL (7-18); CO2 30.9 mmol/L (21.0-32.0); Calcium 8.9 mg/dL (8.5-10.1); Chloride 102 mmol/L (98-107); Glucose 94 mg/dL (70-100); Magnesium 1.9 mg/dL (1.8-2.4); Potassium 3.5 mmol/L (3.5-5.1); Sodium 141 mmol/L (136-145)
[2018-08-09 07:39] LABS: Absolute Neutrophil Count 9.56 k/cumm (1.2-6.7)
[2018-08-09] MEDS: Ferrous Sulfate 44 MG/ML Liquid 325 MG NG ×2 (08:57→20:57)
[2018-08-09] MEDS: Pantoprazole 40 MG VIAL IVP ×2 (08:58→20:57)
[2018-08-09] MEDS: Folic Acid 1 MG TAB NG (08:58)
[2018-08-09] MEDS: Cyanocobalamin 500 MCG TAB 1000 MCG NG (08:58)
[2018-08-09] MEDS: Enoxaparin 40 MG/0.4 ML SYR SC (08:58)
[2018-08-09] MEDS: Methimazole 5 MG TAB 10 MG UD (08:59)
[2018-08-09] MEDS: Memantine 5 MG TAB 10 MG UD ×2 (08:59→20:58)
[2018-08-09] MEDS: Ascorbic Acid 500 MG TAB NG ×2 (08:59→20:58)
[2018-08-09] MEDS: Normal Saline Flush 10 ML SYR 20 ML IVP ×2 (08:59→21:00)
[2018-08-09] MEDS: clonazePAM 1 MG TAB PO ×2 (08:59→20:58)
[2018-08-09] MEDS: amLODIPine 5 MG TAB PO (08:59)
[2018-08-09] MEDS: Normal Saline Flush 10 ML SYR IVP ×3 (09:00→15:03)
--- NOTE | 2018-08-09 10:01 | PT.INTREAT ---
Date of service: 08/09/18 Time of Service: 10:01 PT Notes 08/09/18 SUBJECTIVE: Agreeable to PT treatment. Complains of stomach discomfort post treatment. Nursing aware. OBJECTIVE: Supine in bed. Agreeable to PT treatment. TRANSFERS Supine to sit: S Sit to stand: CGA Stand to sit: CGA GAIT: Device: 4WW Weight bearing: Full Assist: CGA Distance: 5'+25' Deviation: Wheel chair follow Therex: UE/LE strengthening as noted on flow sheet with skilled instruction provided throughout. ASSESSMENT: Tolerates PT well today. She initially was quite fatigued getting out of bed but then was able to rest for a minute and complete 25' of gait. PLAN: Continue current POC progressing towards goals. Treatment time: 25' [id number], [id number] Alice Howard, DIRECTOR OF [employer]
--- NOTE | 2018-08-09 10:06 | PTTR_ITS ---
Date of service: 08/09/18 Time of Service: 10:01 PT Notes 08/09/18 SUBJECTIVE: Agreeable to PT treatment. Complains of stomach discomfort post treatment. Nursing aware. OBJECTIVE: Supine in bed. Agreeable to PT treatment. TRANSFERS Supine to sit: S Sit to stand: CGA Stand to sit: CGA GAIT: Device: 4WW Weight bearing: Full Assist: CGA Distance: 5'+25' Deviation: Wheel chair follow Therex: UE/LE strengthening as noted on flow sheet with skilled instruction provided throughout. ASSESSMENT: Tolerates PT well today. She initially was quite fatigued getting out of bed but then was able to rest for a minute and complete 25' of gait. PLAN: Continue current POC progressing towards goals. Treatment time: 25' [id number], [id number] Alice Howard, [employer]
[2018-08-09] MEDS: Nystatin POWDER 60 GM JAR TP ×2 (10:55→20:59)
--- NOTE | 2018-08-09 11:20 | DI.RAD_ITS ---
SYMPTOMS/DIAGNOSIS: NEW LEUKOCYTOSIS, SUSPECTED ASPIRATION EVENT CHEST X-RAY, PORTABLE: A single frontal view is obtained. Comparison is 07/31/18. The heart size and pulmonary vasculature are within normal limits. There is a left PICC line. The tip of the catheter is in good position in the superior vena cava. It is stable in position. No focal infiltrates, effusions or pneumothoraces are identified. IMPRESSION: No acute pulmonary process.
--- NOTE | 2018-08-09 11:23 | DI.VRAD_ITS ---
EXAM: XR Chest, 1 View EXAM DATE/TIME: 08/09/2018 10:59 AM CLINICAL HISTORY: 63 years old, female; Signs and symptoms; Other: New leucocytosis, suspected aspiration event. TECHNIQUE: XR of the chest, 1 view. COMPARISON: SC XR PORTABLE CHEST AP 07/31/2018 7:22 PM FINDINGS: Tubes, catheters and devices: PICC line present with tip superimposed over the lower SVC. Lungs: The lungs are clear. No pulmonary consolidation. Pleural space: Unremarkable. No pleural effusion. No pneumothorax. Heart/Mediastinum: Unremarkable. No cardiomegaly. Bones/joints: Unremarkable. IMPRESSION: No acute abnormality. Dictated and Authenticated by: Rios Olson MD. Ordering:SHEILA Robb MD
[2018-08-09 11:25] VITALS: BP 124/86; PULSE 85; RESP 19; TEMP 36.7; O2SAT 97
[2018-08-09] MEDS: Alteplase 2 MG VIAL IJ (13:43)
[2018-08-09] MEDS: PIPERACILLIN/TAZO 3.375 GM in Normal Saline 50 ML IVPB ×2 (15:03→20:56)
[2018-08-09] MEDS: Furosemide 20 MG/2 ML VIAL IVP (15:03)
--- NOTE | 2018-08-09 15:15 | PDOC.CMPRO ---
Care Management Progress Note S/O: Christie was alert and responded to questions. Shared that she plans to go to a Residential for a while to get stronger. A: 63 yo disabled female admitted for hypotension, aspiration pneumonia now with a PEG tube placement. P: Anticipate Christie will need to spend time in Swing Bed 1 status as we continue to try and find SNF placement. Christie continues to work with S/T, Psychiatry, P/T, and OT. Christie will require follow up for outpatient manometry per MD.
[2018-08-09 15:53] VITALS: BP 132/89; PULSE 88; RESP 18; TEMP 36.9; O2SAT 96
--- NOTE | 2018-08-09 16:01 | CMPROGNOTE_ITS ---
Care Management Progress Note S/O: Christie was alert and responded to questions. Shared that she plans to go to a [facility] for a while to get stronger. A: 63 yo disabled female admitted for hypotension, aspiration pneumonia now with a PEG tube placement. P: Anticipate Christie will need to spend time in Swing Bed 1 status as we continue to try and find SNF placement. Christie continues to work with S/T, Psychiatry, P/T, and OT. Christie will require follow up for outpatient manometry per MD.
[2018-08-09 19:24] VITALS: BP 130/93; PULSE 94; RESP 20; TEMP 37.2; O2SAT 95
--- NOTE | 2018-08-09 20:14 | W.PM.PROGNOT ---
Date of Service Date of service: 08/09/18 Time of Service: 14:00 Assessment and Plan (1) Acute on chronic diastolic CHF (congestive heart failure): Current visit: Yes Status: Acute EF 60-65% per echo in June. Continue decreased free water with tube feeding. Lasix reinitiated. (2) Aspiration pneumonia: Current visit: Yes Status: Acute Clinically, I think this has recurred - especially given evidence of reflux by report of taste of medicine in the mouth, and hoarseness. Zosyn resumed. I increased her PPI. (3) Schizophrenia: Current visit: No Status: Chronic with catatonia - improved/stable. Continue clonazepam. (4) Altered mental status: Current visit: Yes Status: Resolved Due to catatonia. Resolving. Continue klonopin. (5) Dysphagia: Current visit: Yes Status: Acute Multifactorial - both oropharyngeal and esophageal, with at least part of oropharyngeal component thought to be psychogenic/due to being off of psychiatric medications. CT soft tissues of the neck was negative for any abnormality Failed repeat swallow eval. s/p PEG tube - tolerating bolus Tube feeding. If the patient is going to be tube-feeding dependent, then the necessity of outpatient monometry is questionable. She is s/p EGD on this admission with a nonobstructing Schatzki ring. (6) Weakness on right side of face: Current visit: Yes Status: Resolved No evidence for CVA or seizure. Off of anticonvulsants at this time. (7) Esophageal dysmotility: Current visit: Yes Status: Acute As above (8) Hypotension: Current visit: Yes Status: Resolved Initially, hypotension to the point of shock requiring pressors with evidence of end-organ damage with KJ and elevation in Lactate - at this point felt to be due to sepsis/shock due to aspiration pneumonia at the time. Finished hydrocortisone taper, but no actual evidence of adrenal insufficiency on admission. BP's normalized. (9) Bradycardia: Current visit: No Status: Resolved Resolved, was seen in setting of hypotension. Avoid jovan agents. ? Tachy/Justin Syndrome. No longer requiring pressors/chronotropes. (10) KJ (acute kidney injury): Current visit: Yes Status: Resolved Cr remains stable - continue to monitor (11) GERD (gastroesophageal reflux disease): Current visit: Yes Status: Chronic Increase PPI as patient reports reflux. Follow aspiration precautions. (12) Hypomagnesemia: Current visit: Yes Status: Resolved Continue to monitor (13) Hypernatremia: Current visit: Yes Status: Resolved Continue to monitor (14) Hypokalemia: Current visit: Yes Status: Resolved Continue to monitor (15) Discharge planning issues: Current visit: Yes Status: Acute DNR/DNI, s/p PEG Discussed with case management - patient may require a Level 2 review prior to placement. (16) DVT prophylaxis: Current visit: Yes Status: Acute Lovenox Subjective Interval history since last seen: Complains of abdominal pain only around the PEG site and only when she touches it. Denies dizziness, chest pain, shortness of breath. Sister reports noting that she has been coughing. Patient reports tasting her medicine in her mouth. Sister notes that Christie's voice has been hoarse. Exam Narrative Exam Narrative: General: Laying in bed at a 30 degree angle; no tachypnea, no respiratory distress when talking HEENT: EOMI, MMM Heart: RRR, no m/r/g Lungs: Diminished breath sounds B GI: abdomen soft; RLQ mass/seroma unchanged; PEG tube site clean, dry, intact Extremities: +1 BLE edema, no clubbing/cyanosis Objective Objective Clinical Data: Abnormal lab results 08/09/18 08/09/18 Range/Units 05:48 05:48 WBC 12.56 H D (4.4-10.8) k/cumm RBC 3.64 L (4.00-5.20) m/cumm Hgb 9.0 L (12.0-15.5) g/dL Hct 30.6 L (36.0-46.0) % MCH 24.7 L (27.0-33.0) pg MCHC 29.4 L (32.0-36.0) g/dL RDW 18.9 H (11.7-14.6) % Plt Count 428 H (130-400) x1000/uL MPV 11.4 H (8.0-11.0) fL Absolute Neutrophils 9.56 H (1.2-6.7) k/cumm Absolute Monocytes 0.87 H (0.11-0.7) k/cumm BUN 24 H (7-18) mg/dL Vital Signs Temperature 37.2 C 08/09/18 19:24 Temperature Source Tympanic 08/09/18 19:24 Pulse 94 H 08/09/18 19:24 Pulse Rhythm Regular 08/09/18 09:00 Pulse 94 H 07/30/18 16:43 Respiratory Rate 20 08/09/18 19:24 Respiratory Effort Incrsd Work of Breathing 08/09/18 09:00 Respiratory Depth Normal 08/09/18 09:00 Respiratory Pattern Normal 08/09/18 09:00 Blood Pressure 130/93 H 08/09/18 19:24 Blood Pressure Mean 115 07/30/18 16:43 Blood Pressure Position Supine 07/30/18 16:46 Pulse Oximetry 95 08/09/18 19:24 Respiratory End-tidal CO2 34 07/07/18 15:01 Oxygen Delivery Method Room Air 08/09/18 19:24 Oxygen Flow Rate 0 08/09/18 19:24 Fraction of Inspired Oxygen (FIO2) 28 07/16/18 00:30 Pain Level 0 08/09/18 11:25 Comment 08/04/18 04:50 Intake & Output 08/08/18 08/09/18 08/09/18 23:59 11:59 23:59 Intake Total 1440 / 2040 450 / 1280 830 / 1280 Output Total 1050 / 2358 250 / 1850 1600 / 1850 Balance 390 / -318 200 / -570 -770 / -570 Weight 96.4 kg Intake: IV 30 60 / 110 50 / 110 Intake, Tube Feeding Amount 1409 390 / 1170 780 / 1170 Output: Urine 1050 / 2350 250 / 1850 1600 / 1850 Output, Residual 0 / 8 0 / 0 0 / 0 Other: Urine Color Yellow Yellow Yellow Urine Appearance Cloudy Clear Stool Size Small Small Stool Characteristics Soft Liquid Laboratory Results WBC 12.56 k/cumm (4.4-10.8) H D 08/09/18 05:48 RBC 3.64 m/cumm (4.00-5.20) L 08/09/18 05:48 Hgb 9.0 g/dL (12.0-15.5) L 08/09/18 05:48 Hct 30.6 % (36.0-46.0) L 08/09/18 05:48 MCV 84.1 fL (80-95) 08/09/18 05:48 MCH 24.7 pg (27.0-33.0) L 08/09/18 05:48 MCHC 29.4 g/dL (32.0-36.0) L 08/09/18 05:48 RDW 18.9 % (11.7-14.6) H 08/09/18 05:48 Plt Count 428 x1000/uL (130-400) H 08/09/18 05:48 MPV 11.4 fL (8.0-11.0) H 08/09/18 05:48 Abs Immat Gran (auto) Cancelled 07/13/18 08:05 Immature Gran % 0.4 08/09/18 05:48 Neutrophils % 76.1 08/09/18 05:48 Band Neutrophils % Cancelled 07/13/18 08:05 Lymphocytes % 13.3 08/09/18 05:48 Atypical Lymphs % Cancelled 07/13/18 08:05 Monocytes % 6.9 08/09/18 05:48 Eosinophils % 3.1 08/09/18 05:48 Basophils % 0.2 08/09/18 05:48 Absolute Neutrophils 9.56 k/cumm (1.2-6.7) H 08/09/18 05:48 Absolute Lymphocytes 1.67 k/cumm (1.2-3.4) 08/09/18 05:48 Absolute Monocytes 0.87 k/cumm (0.11-0.7) H 08/09/18 05:48 Absolute Eosinophils 0.39 k/cumm (0.0-0.7) 08/09/18 05:48 Absolute Basophils 0.03 k/cumm (0.0-0.2) 08/09/18 05:48 Metamyelocytes Cancelled 07/13/18 08:05 Myelocytes Cancelled 07/13/18 08:05 Promyelocytes Cancelled 07/13/18 08:05 Nucleated RBCs Cancelled 07/13/18 08:05 Differential Comment Rbc morph reviewed 07/26/18 05:47 Other Cell Type Cancelled 07/13/18 08:05 RBC Morphology See below 07/26/18 05:47 Polychromasia Present 07/17/18 06:35 Hypochromasia 1+ 07/26/18 05:47 Poikilocytosis 1+ 07/17/18 06:35 Basophilic Stippling Cancelled 07/13/18 08:05 Anisocytosis 2+ 07/17/18 06:35 Microcytosis 2+ 07/26/18 05:47 Macrocytosis Cancelled 07/13/18 08:05 Spherocytes Cancelled 07/13/18 08:05 Target Cells Cancelled 07/13/18 08:05 Tear Drop Cells Cancelled 07/13/18 08:05 Ovalocytes 2+ 07/26/18 05:47 Stomatocytes Cancelled 07/13/18 08:05 [place] Bodies Cancelled 07/13/18 08:05 Girma Cells Cancelled 07/13/18 08:05 Acanthocytes (Spur) Cancelled 07/13/18 08:05 Schistocytes 1+ 07/26/18 05:47 D-Dimer 1329 ng/mlFEU (<500) H 07/07/18 21:15 Sodium 141 mmol/L (136-145) 08/09/18 05:48 Potassium 3.5 mmol/L (3.5-5.1) 08/09/18 05:48 Chloride 102 mmol/L (98-107) 08/09/18 05:48 Carbon Dioxide 30.9 mmol/L (21.0-32.0) 08/09/18 05:48 Anion Gap 8.1 mmol/L (3-11) 08/09/18 05:48 BUN 24 mg/dL (7-18) H 08/09/18 05:48 Creatinine 0.70 mg/dL (0.55-1.02) 08/09/18 05:48 Estimated GFR/1.73 m2 >= 60.00 (mL/min/1.73m2) 08/09/18 05:48 Glucose 94 mg/dL (70-100) 08/09/18 05:48 Lactate 1.0 mmol/L (0.6-1.4) 07/06/18 07:20 Calcium 8.9 mg/dL (8.5-10.1) 08/09/18 05:48 Magnesium 1.9 mg/dL (1.8-2.4) 08/09/18 05:48 Iron 20 ug/dL (50-175) L 07/25/18 16:13 TIBC 235 ug/dL (250-450) L 07/25/18 16:13 Transferrin % Sat 9 % (15-50) L 07/25/18 16:13 Ferritin 35 ng/mL (8-388) 07/25/18 16:13 Total Bilirubin 0.3 mg/dL (0.2-1.0) 07/12/18 05:50 Conjugated Bilirubin 0.10 mg/dL (0.00-0.20) 07/12/18 05:50 AST 24 U/L (15-37) 07/12/18 05:50 ALT 47 U/L (12-78) 07/12/18 05:50 Alkaline Phosphatase 65 U/L (46-116) 07/12/18 05:50 Ammonia < 10 umol/L (11-32) L 07/15/18 10:20 Troponin I 0.02 ng/mL (0.00-0.06) 07/08/18 05:00 NT-Pro-B Natriuret Pep 744 pg/mL (-299) H 07/31/18 19:52 Total Protein 4.6 g/dL (6.4-8.2) L 07/12/18 05:50 Albumin 2.2 g/dL (3.4-5.0) L 07/12/18 05:50 Lipase 252 U/L (73-393) 07/04/18 13:15 Vitamin B12 471 pg/mL (193-986) 07/25/18 16:13 Folate 8.0 ng/mL (8.6-20.0) L 07/25/18 16:13 Procalcitonin <0.10 ng/mL (<or=1.5) 07/08/18 06:24 Calcitonin Cancelled 07/08/18 06:24 TSH 1.09 uIU/mL (0.358-3.74) 07/06/18 07:20 Urine Color Yellow (Yellow) 07/14/18 13:05 Urine Clarity Clear 07/14/18 13:05 Urine pH 5.0 (5-8) 07/14/18 13:05 Ur Specific [place] <= 1.005 (1.005-1.025) 07/14/18 13:05 Urine Protein Negative mg/dL (Negative) 07/14/18 13:05 Urine Ketones Negative mg/dL (Negative) 07/14/18 13:05 Urine Blood Small (Negative) H 07/14/18 13:05 Urine Nitrite Negative (Negative) 07/14/18 13:05 Urine Bilirubin Negative (Negative) 07/14/18 13:05 Urine Urobilinogen 0.2 EU/dL (Up TO 0.2) 07/14/18 13:05 Ur Leukocyte Esterase Negative (Negative) 07/14/18 13:05 Urine RBC 3-5 (0-2) H 07/14/18 13:05 Urine WBC 0-2 HPF (0-5) 07/14/18 13:05 Ur Epithelial Cells Rare HPF (Negative) 07/14/18 13:05 Urine Crystals Rare amorphous HPF (Negative) 07/14/18 13:05 Urine Bacteria Rare HPF (Negative) 07/14/18 13:05 Urine Casts Negative LPF (Negative) 07/14/18 13:05 Urine Mucus Trace (Negative) 07/14/18 13:05 Ur Culture Indicated? C&s done as ordered 07/14/18 13:05 Urine Glucose 100 mg/dL (Negative) 07/14/18 13:05 Stool Campylobacter PCR See comments 07/06/18 12:45 Stool Salmonella PCR See comments 07/06/18 12:45 Stool Shigella PCR See comments 07/06/18 12:45 Vancomycin Trough 18.9 ug/mL (10.0-20.0) 07/20/18 06:17 Shiga Toxin (PCR) See comments 07/06/18 12:45 Path Cons Comment See comment 07/06/18 07:20 Miscellaneous Test Cancelled 07/08/18 06:24 CXR: IMPRESSION: No acute abnormality.
[2018-08-09] MEDS: Donepezil 5 MG TAB 10 MG UD (22:05)
[2018-08-09] MEDS: OLANZapine 5 MG TAB 10 MG UD (22:05)
[2018-08-09 23:45] VITALS: BP 136/92; PULSE 87; RESP 20; TEMP 36.8; O2SAT 95
[2018-08-10] MEDS: PIPERACILLIN/TAZO 3.375 GM in Normal Saline 50 ML IVPB ×4 (01:53→19:43)
[2018-08-10 03:59] VITALS: BP 131/86; PULSE 90; RESP 20; TEMP 36.9; O2SAT 95
[2018-08-10 07:27] LABS: Abs Immature Grans 0.06 k/cumm (0.0-0.09); Absolute Eosinophil Count 0.45 k/cumm (0.0-0.7); Absolute Lymphocyte Count 1.91 k/cumm (1.2-3.4); Absolute Monocyte Count 0.97 k/cumm (0.11-0.7); Basophils % 0.3; Eosinophils % 3.9; HCT 29.2 % (36.0-46.0); HGB 8.5 g/dL (12.0-15.5); Immature Grans % 0.5; Lymphocytes % 16.7; Mean Corp. HGB Concentration 29.1 g/dL (32.0-36.0); Mean Corpuscular Hemoglobin 24.5 pg (27.0-33.0); Mean Corpuscular Volume 84.1 fL (80-95); Mean Platelet Volume 11.2 fL (8.0-11.0); Monocytes % 8.5; Neutrophils % 70.1; Platelet Count 396 x1000/uL (130-400); RBC 3.47 m/cumm (4.00-5.20); RBC Distribution Width 18.8 % (11.7-14.6); White Blood Cell Count 11.44 k/cumm (4.4-10.8)
[2018-08-10 07:30] LABS: Absolute Basophil Count 0.03 k/cumm (0.0-0.2); Absolute Neutrophil Count 8.02 k/cumm (1.2-6.7)
[2018-08-10 07:39] LABS: Anion Gap 6.4 mmol/L (3-11); BUN 22 mg/dL (7-18); CO2 31.6 mmol/L (21.0-32.0); CREATININE 0.68 mg/dL (0.55-1.02); Calcium 8.2 mg/dL (8.5-10.1); Chloride 103 mmol/L (98-107); Glucose 88 mg/dL (70-100); Magnesium 1.9 mg/dL (1.8-2.4); Sodium 141 mmol/L (136-145)
[2018-08-10] MEDS: Enoxaparin 40 MG/0.4 ML SYR SC (07:54)
[2018-08-10] MEDS: Normal Saline Flush 10 ML SYR 20 ML IVP ×2 (07:54→19:44)
[2018-08-10] MEDS: Normal Saline Flush 10 ML SYR IVP ×3 (07:54→13:51)
[2018-08-10 07:55] VITALS: BP 152/103; PULSE 91; RESP 18; TEMP 36.4; O2SAT 96
[2018-08-10] MEDS: Ferrous Sulfate 44 MG/ML Liquid 325 MG NG ×2 (07:55→19:43)
[2018-08-10] MEDS: Methimazole 5 MG TAB UD (07:56)
[2018-08-10] MEDS: Memantine 5 MG TAB 10 MG UD ×2 (07:56→19:42)
[2018-08-10] MEDS: Cyanocobalamin 500 MCG TAB 1000 MCG NG (07:56)
[2018-08-10] MEDS: Folic Acid 1 MG TAB NG (07:56)
[2018-08-10] MEDS: Pantoprazole 40 MG VIAL IVP ×2 (07:56→19:43)
[2018-08-10] MEDS: Ascorbic Acid 500 MG TAB NG ×2 (07:56→19:43)
[2018-08-10] MEDS: amLODIPine 5 MG TAB PO (07:56)
[2018-08-10] MEDS: clonazePAM 1 MG TAB PO ×2 (07:56→19:42)
[2018-08-10] MEDS: Nystatin POWDER 60 GM JAR TP ×2 (07:56→19:45)
--- NOTE | 2018-08-10 10:00 | PT.INTREAT ---
Date of service: 08/10/18 Time of Service: 10:00 PT Notes 08/10/18 SUBJECTIVE: Pt stating she has to use the toilet. No new complaints. OBJECTIVE: Seated in recliner. Agreeable to PT treatment. TRANSFERS Sit to stand: CGA Stand to sit: CGA GAIT: Device; 4WW Weight bearing: Full Assist: CGA Distance: 30' Deviation: Wheel chair follow, cues to stay close to her walker. Breaks activated on walker througout gait. Therex: Seated UE/LE strengthening. Perform resisted UE exercises with good tolerance. Also performed repetitive stand pivot transfers x 3 to use commode throughout treatment. ASSESSMENT: Increased safety awareness with transfers with pt reaching for her chair and squaring up before she sits. She tolerates an increase in her gait distance well today but is quite fatigued afterwards. PLAN: Continue per established POC. Treatment time: 30 minutes [id number], [id number] Alice Howard, TUNNELING MACHINE OPERATOR
--- NOTE | 2018-08-10 10:05 | PTTR_ITS ---
Date of service: 08/10/18 Time of Service: 10:00 PT Notes 08/10/18 SUBJECTIVE: Pt stating she has to use the toilet. No new complaints. OBJECTIVE: Seated in recliner. Agreeable to PT treatment. TRANSFERS Sit to stand: CGA Stand to sit: CGA GAIT: Device; 4WW Weight bearing: Full Assist: CGA Distance: 30' Deviation: Wheel chair follow, cues to stay close to her walker. Breaks activated on walker througout gait. Therex: Seated UE/LE strengthening. Perform resisted UE exercises with good tolerance. Also performed repetitive stand pivot transfers x 3 to use commode throughout treatment. ASSESSMENT: Increased safety awareness with transfers with pt reaching for her chair and squaring up before she sits. She tolerates an increase in her gait distance well today but is quite fatigued afterwards. PLAN: Continue per established POC. Treatment time: 30 minutes [id number], [id number] Alice Howard, PIER MASTER
[2018-08-10] MEDS: Furosemide 20 MG/2 ML VIAL IVP (11:10)
[2018-08-10] MEDS: Potassium Chloride Liquid 20 MEQ PKT 40 MEQ NG ×2 (11:11→19:43)
[2018-08-10 13:05] VITALS: BP 123/86; PULSE 90; RESP 18; TEMP 36; O2SAT 99
--- NOTE | 2018-08-10 15:24 | PDOC.CMPRO ---
Care Management Progress Note S/O: Christie was alert and responded to questions. Appears comfortable lying in bed with her head elevated. A: 63 yo disabled female admitted for hypotension, aspiration pneumonia now with a PEG tube in place. Remains at Acute level of care today. P: Anticipate Christie will need to spend time in Swing Bed 1 status as we continue to try and find SNF placement. Christie continues to work with P/T. Will require SNF placement to increase her strength and mobility. May need to use Swing Bed option as we search for placement.
[2018-08-10 15:49] VITALS: BP 115/83; PULSE 90; RESP 19; TEMP 36.9; O2SAT 99
--- NOTE | 2018-08-10 19:34 | W.PM.PROGNOT ---
Date of Service Date of service: 08/10/18 Time of Service: 16:15 Assessment and Plan (1) Acute on chronic diastolic CHF (congestive heart failure): Current visit: Yes Status: Acute EF 60-65% per echo in June. Continue decreased free water with tube feeding. Continue lasix. Monitor Cr, Sodium, I/O's, daily weights and respiratory status. (2) Aspiration pneumonia: Current visit: Yes Status: Acute Clinically, I think this has recurred - especially given evidence of reflux by report of taste of medicine in the mouth, and hoarseness. Continue zosyn and BID PPI. (3) Schizophrenia: Current visit: No Status: Chronic with catatonia - improved/stable. Continue clonazepam. (4) Altered mental status: Current visit: Yes Status: Resolved Due to catatonia. Resolving. Continue klonopin. (5) Dysphagia: Current visit: Yes Status: Acute Multifactorial - both oropharyngeal and esophageal, with at least part of oropharyngeal component thought to be psychogenic/due to being off of psychiatric medications. CT soft tissues of the neck was negative for any abnormality Failed repeat swallow eval. s/p PEG tube - tolerating bolus Tube feeding. If the patient is going to be tube-feeding dependent, then the necessity of outpatient monometry is questionable. She is s/p EGD on this admission with a nonobstructing Schatzki ring. (6) Weakness on right side of face: Current visit: Yes Status: Resolved No evidence for CVA or seizure. Off of anticonvulsants at this time. (7) Esophageal dysmotility: Current visit: Yes Status: Acute As above (8) Hypotension: Current visit: Yes Status: Resolved Initially, hypotension to the point of shock requiring pressors with evidence of end-organ damage with KJ and elevation in Lactate - at this point felt to be due to sepsis/shock due to aspiration pneumonia at the time. Finished hydrocortisone taper, but no actual evidence of adrenal insufficiency on admission. BP's normalized. (9) Bradycardia: Current visit: No Status: Resolved Resolved, was seen in setting of hypotension. Avoid jovan agents. ? Tachy/Justin Syndrome. No longer requiring pressors/chronotropes. (10) KJ (acute kidney injury): Current visit: Yes Status: Resolved Cr remains stable - continue to monitor (11) GERD (gastroesophageal reflux disease): Current visit: Yes Status: Chronic Continue BID PPI. Follow aspiration precautions. (12) Hypomagnesemia: Current visit: Yes Status: Resolved Continue to monitor (13) Hypernatremia: Current visit: Yes Status: Resolved Continue to monitor (14) Hypokalemia: Current visit: Yes Status: Resolved Continue to monitor (15) Discharge planning issues: Current visit: Yes Status: Acute DNR/DNI, s/p PEG Discussed with case management - patient may require a Level 2 review prior to placement. (16) DVT prophylaxis: Current visit: Yes Status: Acute Lovenox Subjective Interval history since last seen: I feel like I'm not breathing. Denies cough, dizziness, chest pain, actual shortness of breath, nausea, vomiting. Exam Narrative Exam Narrative: General: Laying in bed at a 30 degree angle; no tachypnea, no respiratory distress when talking HEENT: EOMI, MMM Heart: RRR, no m/r/g Lungs: Diminished breath sounds B GI: abdomen soft; RLQ mass/seroma unchanged; PEG tube site clean, dry, intact Extremities: +1 BLE edema - improved; no clubbing/cyanosis Objective Objective Clinical Data: Abnormal lab results 08/10/18 08/10/18 Range/Units 06:32 06:32 WBC 11.44 H (4.4-10.8) k/cumm RBC 3.47 L (4.00-5.20) m/cumm Hgb 8.5 L (12.0-15.5) g/dL Hct 29.2 L (36.0-46.0) % MCH 24.5 L (27.0-33.0) pg MCHC 29.1 L (32.0-36.0) g/dL RDW 18.8 H (11.7-14.6) % MPV 11.2 H (8.0-11.0) fL Absolute Neutrophils 8.02 H (1.2-6.7) k/cumm Absolute Monocytes 0.97 H (0.11-0.7) k/cumm Potassium 3.0 L (3.5-5.1) mmol/L BUN 22 H (7-18) mg/dL Calcium 8.2 L (8.5-10.1) mg/dL Vital Signs Temperature 36.9 C 08/10/18 15:49 Temperature Source Tympanic 02/17/19 15:49 Pulse 90 08/10/18 15:49 Pulse Rhythm Regular 08/10/18 07:55 Pulse 94 H 07/30/18 16:43 Respiratory Rate 19 08/10/18 15:49 Respiratory Effort 08/10/18 07:55 Respiratory Depth Shallow 08/10/18 07:55 Respiratory Pattern Normal 08/10/18 07:55 Blood Pressure 115/83 08/10/18 15:49 Blood Pressure Mean 115 07/30/18 16:43 Blood Pressure Position Supine 07/30/18 16:46 Pulse Oximetry 99 08/10/18 15:49 Respiratory End-tidal CO2 34 07/07/18 15:01 Oxygen Delivery Method Room Air 08/10/18 15:49 Oxygen Flow Rate 0 08/10/18 15:49 Fraction of Inspired Oxygen (FIO2) 28 07/16/18 00:30 Pain Level 0 08/10/18 07:55 Comment 08/04/18 04:50 Intake & Output 08/09/18 08/10/18 08/10/18 23:59 11:59 23:59 Intake Total 1680 / 2130 570 / 1410 840 / 1410 Output Total 1610 / 1860 650 / 650 0 / 650 Balance 70 / 270 -80 / 760 840 / 760 Weight 97.1 kg Intake: IV 120 / 180 180 / 240 60 / 240 Intake, Tube Feeding Amount 1560 / 1950 390 / 1170 780 / 1170 Output: Urine 1600 / 1850 650 / 650 Output, Residual 10 / 10 0 / 0 0 / 0 Other: Urine Color Yellow Straw Urine Appearance Clear Cloudy Sediment Stool Occult Blood Negative Stool Size Large Copious Smear Stool Characteristics Soft Liquid Brown Laboratory Results WBC 11.44 k/cumm (4.4-10.8) H 08/10/18 06:32 RBC 3.47 m/cumm (4.00-5.20) L 08/10/18 06:32 Hgb 8.5 g/dL (12.0-15.5) L 08/10/18 06:32 Hct 29.2 % (36.0-46.0) L 08/10/18 06:32 MCV 84.1 fL (80-95) 08/10/18 06:32 MCH 24.5 pg (27.0-33.0) L 08/10/18 06:32 MCHC 29.1 g/dL (32.0-36.0) L 08/10/18 06:32 RDW 18.8 % (11.7-14.6) H 08/10/18 06:32 Plt Count 396 x1000/uL (130-400) 08/10/18 06:32 MPV 11.2 fL (8.0-11.0) H 08/10/18 06:32 Abs Immat Gran (auto) Cancelled 07/13/18 08:05 Immature Gran % 0.5 08/10/18 06:32 Neutrophils % 70.1 08/10/18 06:32 Band Neutrophils % Cancelled 07/13/18 08:05 Lymphocytes % 16.7 08/10/18 06:32 Atypical Lymphs % Cancelled 07/13/18 08:05 Monocytes % 8.5 08/10/18 06:32 Eosinophils % 3.9 08/10/18 06:32 Basophils % 0.3 08/10/18 06:32 Absolute Neutrophils 8.02 k/cumm (1.2-6.7) H 08/10/18 06:32 Absolute Lymphocytes 1.91 k/cumm (1.2-3.4) 08/10/18 06:32 Absolute Monocytes 0.97 k/cumm (0.11-0.7) H 08/10/18 06:32 Absolute Eosinophils 0.45 k/cumm (0.0-0.7) 08/10/18 06:32 Absolute Basophils 0.03 k/cumm (0.0-0.2) 08/10/18 06:32 Metamyelocytes Cancelled 07/13/18 08:05 Myelocytes Cancelled 07/13/18 08:05 Promyelocytes Cancelled 07/13/18 08:05 Nucleated RBCs Cancelled 07/13/18 08:05 Differential Comment Rbc morph reviewed 07/26/18 05:47 Other Cell Type Cancelled 07/13/18 08:05 RBC Morphology See below 07/26/18 05:47 Polychromasia Present 07/17/18 06:35 Hypochromasia 1+ 07/26/18 05:47 Poikilocytosis 1+ 07/17/18 06:35 Basophilic Stippling Cancelled 07/13/18 08:05 Anisocytosis 2+ 07/17/18 06:35 Microcytosis 2+ 07/26/18 05:47 Macrocytosis Cancelled 07/13/18 08:05 Spherocytes Cancelled 07/13/18 08:05 Target Cells Cancelled 07/13/18 08:05 Tear Drop Cells Cancelled 07/13/18 08:05 Ovalocytes 2+ 07/26/18 05:47 Stomatocytes Cancelled 07/13/18 08:05 Telles-[place] Bodies Cancelled 07/13/18 08:05 Girma Cells Cancelled 07/13/18 08:05 Acanthocytes (Spur) Cancelled 07/13/18 08:05 Schistocytes 1+ 07/26/18 05:47 D-Dimer 1329 ng/mlFEU (<500) H 07/07/18 21:15 Sodium 141 mmol/L (136-145) 08/10/18 06:32 Potassium 3.0 mmol/L (3.5-5.1) L 08/10/18 06:32 Chloride 103 mmol/L (98-107) 08/10/18 06:32 Carbon Dioxide 31.6 mmol/L (21.0-32.0) 08/10/18 06:32 Anion Gap 6.4 mmol/L (3-11) 08/10/18 06:32 BUN 22 mg/dL (7-18) H 08/10/18 06:32 Creatinine 0.68 mg/dL (0.55-1.02) 08/10/18 06:32 Estimated GFR/1.73 m2 >= 60.00 (mL/min/1.73m2) 08/10/18 06:32 Glucose 88 mg/dL (70-100) 08/10/18 06:32 Lactate 1.0 mmol/L (0.6-1.4) 07/06/18 07:20 Calcium 8.2 mg/dL (8.5-10.1) L 08/10/18 06:32 Magnesium 1.9 mg/dL (1.8-2.4) 08/10/18 06:32 Iron 20 ug/dL (50-175) L 07/25/18 16:13 TIBC 235 ug/dL (250-450) L 07/25/18 16:13 Transferrin % Sat 9 % (15-50) L 07/25/18 16:13 Ferritin 35 ng/mL (8-388) 07/25/18 16:13 Total Bilirubin 0.3 mg/dL (0.2-1.0) 07/12/18 05:50 Conjugated Bilirubin 0.10 mg/dL (0.00-0.20) 07/12/18 05:50 AST 24 U/L (15-37) 07/12/18 05:50 ALT 47 U/L (12-78) 07/12/18 05:50 Alkaline Phosphatase 65 U/L (46-116) 07/12/18 05:50 Ammonia < 10 umol/L (11-32) L 07/15/18 10:20 Troponin I 0.02 ng/mL (0.00-0.06) 07/08/18 05:00 NT-Pro-B Natriuret Pep 744 pg/mL (-299) H 07/31/18 19:52 Total Protein 4.6 g/dL (6.4-8.2) L 07/12/18 05:50 Albumin 2.2 g/dL (3.4-5.0) L 07/12/18 05:50 Lipase 252 U/L (73-393) 07/04/18 13:15 Vitamin B12 471 pg/mL (193-986) 07/25/18 16:13 Folate 8.0 ng/mL (8.6-20.0) L 07/25/18 16:13 Procalcitonin <0.10 ng/mL (<or=1.5) 07/08/18 06:24 Calcitonin Cancelled 07/08/18 06:24 TSH 1.09 uIU/mL (0.358-3.74) 07/06/18 07:20 Urine Color Yellow (Yellow) 07/14/18 13:05 Urine Clarity Clear 07/14/18 13:05 Urine pH 5.0 (5-8) 07/14/18 13:05 Ur Specific [place] <= 1.005 (1.005-1.025) 07/14/18 13:05 Urine Protein Negative mg/dL (Negative) 07/14/18 13:05 Urine Ketones Negative mg/dL (Negative) 07/14/18 13:05 Urine Blood Small (Negative) H 07/14/18 13:05 Urine Nitrite Negative (Negative) 07/14/18 13:05 Urine Bilirubin Negative (Negative) 07/14/18 13:05 Urine Urobilinogen 0.2 EU/dL (Up TO 0.2) 07/14/18 13:05 Ur Leukocyte Esterase Negative (Negative) 07/14/18 13:05 Urine RBC 3-5 (0-2) H 07/14/18 13:05 Urine WBC 0-2 HPF (0-5) 07/14/18 13:05 Ur Epithelial Cells Rare HPF (Negative) 07/14/18 13:05 Urine Crystals Rare amorphous HPF (Negative) 07/14/18 13:05 Urine Bacteria Rare HPF (Negative) 07/14/18 13:05 Urine Casts Negative LPF (Negative) 07/14/18 13:05 Urine Mucus Trace (Negative) 07/14/18 13:05 Ur Culture Indicated? C&s done as ordered 07/14/18 13:05 Urine Glucose 100 mg/dL (Negative) 07/14/18 13:05 Stool Campylobacter PCR See comments 07/06/18 12:45 Stool Salmonella PCR See comments 07/06/18 12:45 Stool Shigella PCR See comments 07/06/18 12:45 Vancomycin Trough 18.9 ug/mL (10.0-20.0) 07/20/18 06:17 Shiga Toxin (PCR) See comments 07/06/18 12:45 Path Cons Comment See comment 07/06/18 07:20 Miscellaneous Test Cancelled 07/08/18 06:24
[2018-08-10 19:53] VITALS: BP 133/94; PULSE 89; RESP 20; TEMP 36.7; O2SAT 98
[2018-08-10] MEDS: Donepezil 5 MG TAB 10 MG UD (21:36)
[2018-08-10] MEDS: OLANZapine 5 MG TAB 10 MG UD (21:36)
[2018-08-11] MEDS: PIPERACILLIN/TAZO 3.375 GM in Normal Saline 50 ML IVPB ×4 (01:07→20:20)
[2018-08-11 07:10] LABS: Abs Immature Grans 0.07 k/cumm (0.0-0.09); Absolute Basophil Count 0.05 k/cumm (0.0-0.2); Absolute Lymphocyte Count 1.94 k/cumm (1.2-3.4); Absolute Monocyte Count 0.91 k/cumm (0.11-0.7); Basophils % 0.4; HCT 30.9 % (36.0-46.0); Immature Grans % 0.6; Lymphocytes % 16.3; Mean Corp. HGB Concentration 29.1 g/dL (32.0-36.0); Mean Corpuscular Hemoglobin 24.8 pg (27.0-33.0); Mean Corpuscular Volume 85.1 fL (80-95); Monocytes % 7.6; Neutrophils % 70.1; Platelet Count 405 x1000/uL (130-400); RBC 3.63 m/cumm (4.00-5.20); RBC Distribution Width 19.3 % (11.7-14.6); White Blood Cell Count 11.92 k/cumm (4.4-10.8)
[2018-08-11 07:15] LABS: Absolute Neutrophil Count 8.36 k/cumm (1.2-6.7)
[2018-08-11 07:20] VITALS: BP 142/95; PULSE 96; RESP 20; TEMP 37; O2SAT 97
[2018-08-11 07:26] LABS: Anion Gap 5.7 mmol/L (3-11); BUN 23 mg/dL (7-18); CO2 34.3 mmol/L (21.0-32.0); Calcium 8.9 mg/dL (8.5-10.1); Chloride 102 mmol/L (98-107); Glucose 93 mg/dL (70-100); Magnesium 1.8 mg/dL (1.8-2.4); Potassium 3.1 mmol/L (3.5-5.1); Sodium 142 mmol/L (136-145)
[2018-08-11] MEDS: Potassium Chloride Liquid 20 MEQ PKT 40 MEQ NG ×2 (08:48→11:00)
[2018-08-11] MEDS: Normal Saline Flush 10 ML SYR IVP ×3 (08:49→16:55)
[2018-08-11] MEDS: Normal Saline Flush 10 ML SYR 20 ML IVP ×2 (08:49→20:18)
[2018-08-11] MEDS: Pantoprazole 40 MG VIAL IVP ×2 (08:49→20:20)
[2018-08-11] MEDS: Ferrous Sulfate 44 MG/ML Liquid 325 MG NG ×2 (08:49→20:19)
[2018-08-11] MEDS: Furosemide 20 MG/2 ML VIAL IVP (08:49)
[2018-08-11] MEDS: Enoxaparin 40 MG/0.4 ML SYR SC (08:50)
[2018-08-11] MEDS: Methimazole 5 MG TAB 10 MG UD (08:50)
[2018-08-11] MEDS: amLODIPine 5 MG TAB PO (08:50)
[2018-08-11] MEDS: Ascorbic Acid 500 MG TAB NG ×2 (08:50→20:18)
[2018-08-11] MEDS: Memantine 5 MG TAB 10 MG UD ×2 (08:50→20:19)
[2018-08-11] MEDS: clonazePAM 1 MG TAB PO ×2 (08:50→20:18)
[2018-08-11] MEDS: Cyanocobalamin 500 MCG TAB 1000 MCG NG (08:50)
[2018-08-11] MEDS: Folic Acid 1 MG TAB NG (08:50)
[2018-08-11] MEDS: Nystatin POWDER 60 GM JAR TP ×2 (08:51→20:19)
[2018-08-11 09:55] VITALS: O2SAT 97
[2018-08-11 11:05] VITALS: BP 129/88; PULSE 101; RESP 20; TEMP 37; O2SAT 97
--- NOTE | 2018-08-11 11:06 | OT.INNT ---
Date of service: 08/11/18 Time of Service: 11:06 Occupational Therapy Notes 08/11/18 OT went to see pt, pt reports that I am not doing well today. She reports that her jaw is very painful, with nursing is present in the room. Pt denies OT session reporting that she is in too much pain. OT will follow up with pt tomorrow. Ashtyn Alvarez, OTR/[facility]
[2018-08-11 12:14] LABS: Bilirubin Negative (Negative); Blood Trace-intact (Negative); Clarity Clear; Glucose Negative (Negative); Ketones Negative (Negative); Leukocyte Esterase Moderate (Negative); Nitrite Positive (Negative); Specific Gravity 1.015 (1.005-1.025); Urobilinogen 0.2 EU/dL (Up TO 0.2); pH 7.5 (5-8)
[2018-08-11 12:27] LABS: Epithelial Cells Negative HPF (Negative); Other Cells Rare Renal (Negative)
[2018-08-11 12:28] LABS: Bacteria Moderate HPF (Negative); C & S Indicated? C&S Done As Ordered; Casts Negative LPF (Negative); Crystals Rare Calcium Oxalate HPF (Negative); Mucus Negative (Negative)
--- NOTE | 2018-08-11 12:56 | PT.INTREAT ---
Date of service: 08/11/18 Time of Service: 12:56 PT Notes Inpatient Physical Therapy Treatment Note [facility] Date: 08/11/18 PRECAUTIONS: Fall SUBJECTIVE: Christie reports that she is having significant left?sided jaw pain this morning. She states that she is not feeling well today. OBJECTIVE: PAIN: Please see subjective portion of this note. BED MOBILITY/TRANSFERS Supine-sit: S Sit-supine: S Sit-stand: CGA Stand-sit: CGA GAIT Assistive Device: 4WW Weight bearing: Full Assist: CGA Distance: 15' in a.m.; 20' x2 in p.m. Deviation: Seated rest x1 in p.m. THEREX: Completed a lower extremity strengthening and resisted upper extremity strengthening program, as per flow sheet. Patient tolerated the addition of tricep extension exercise using green Thera-Band for resistance, well without complaint. TOILETING: Patient toileted with assist for care and transfers ASSESSMENT: Patient tolerated session with complaint of increased fatigue. She would benefit from continued gait and transfer training as well as strengthening for improved mobility and improved activity tolerance. PLAN: As per primary PT TREATMENT CODE/TIME: Session 1: 30 minutes; [id number], [id number] Session 2: 30 minutes; [id number], [id number]
--- NOTE | 2018-08-11 13:00 | PTTR_ITS ---
Date of service: 08/11/18 Time of Service: 12:56 PT Notes Inpatient Physical Therapy Treatment Note [facility] Date: 08/11/18 PRECAUTIONS: Fall SUBJECTIVE: Christie reports that she is having significant left?sided jaw pain this morning. She states that she is not feeling well today. OBJECTIVE: PAIN: Please see subjective portion of this note. BED MOBILITY/TRANSFERS Supine-sit: S Sit-supine: S Sit-stand: CGA Stand-sit: CGA GAIT Assistive Device: 4WW Weight bearing: Full Assist: CGA Distance: 15' in a.m.; 20' x2 in p.m. Deviation: Seated rest x1 in p.m. THEREX: Completed a lower extremity strengthening and resisted upper extremity strengthening program, as per flow sheet. Patient tolerated the addition of tricep extension exercise using green Thera-Band for resistance, well without complaint. TOILETING: Patient toileted with assist for care and transfers ASSESSMENT: Patient tolerated session with complaint of increased fatigue. She would benefit from continued gait and transfer training as well as strengthening for improved mobility and improved activity tolerance. PLAN: As per primary PT TREATMENT CODE/TIME: Session 1: 30 minutes; [id number], [id number] Session 2: 30 minutes; [id number], [id number]
--- NOTE | 2018-08-11 13:12 | DI.RAD_ITS ---
SYMPTOM/DIAGNOSIS: SUSPECTED ASPIRATION PNEUMONIA PORTABLE AP CHEST: Comparison is made with 08/09/18. Heart size and pulmonary vasculature are stable and within normal limits. There is a left PICC line, the tip of the catheter is seen at the junction of the superior vena cava and right atrium. Since the prior examination, there appears to have developed a left basilar infiltrate. The right lung is clear. No effusions or pneumothoraces are identified. IMPRESSION: Question of interval development of a left basilar infiltrate suspicious for pneumonia or atelectasis.
[2018-08-11 16:18] VITALS: BP 138/97; PULSE 96; RESP 20; TEMP 37.8; O2SAT 96
--- NOTE | 2018-08-11 16:23 | PDOC.CMPRO ---
- If Service Date Differs Date of service: 08/11/18 Time of Service: 16:23 Care Management Progress Note S/O:Christie remains acute at this time. Urine and blood cultures are pending. She is now on IV antibiotics for suspected aspiration pneumonia. She had a temp of 37.8 this late afternoon. Christie is alert engages with CM. She is sitting up in bed family is not present during CM visit. A: 63 yo disabled female admitted for hypotension, aspiration pneumonia, and Catatonia, now with a PEG tube in place. Remains at Acute level of care today. P: Anticipate Christie will need to spend time in Swing Bed 1 status as CM continues to search for SNF placement. Christie continues to work with P/T. Will require SNF placement to increase her strength and mobility. CM to continue to provide support to patient ongoing discharge planning and disposition.
[2018-08-11] MEDS: VANCOMYCIN 1,250 MG in Normal Saline 250 ML 166.667 MG IV (16:55)
[2018-08-11 17:12] LABS: Bilirubin Negative (Negative); Blood Large (Negative); Clarity Sl Cloudy; Glucose Negative (Negative); Ketones Trace mg/dL (Negative); Leukocyte Esterase Small (Negative); Nitrite Negative (Negative); Specific Gravity 1.015 (1.005-1.025); Urobilinogen 0.2 EU/dL (Up TO 0.2); pH 6.5 (5-8)
[2018-08-11 17:27] LABS: Bacteria Moderate HPF (Negative); C & S Indicated? Yes; Casts Negative LPF (Negative); Crystals Negative HPF (Negative); Epithelial Cells Few HPF (Negative); Mucus Trace (Negative); RBC >50 (0-2); WBC 20-50 HPF (0-5)
[2018-08-11] MEDS: Acetaminophen Solution 650 MG/20.3 ML CUP NG (17:44)
--- NOTE | 2018-08-11 19:42 | W.PM.PROGNOT ---
Date of Service Date of service: 08/11/18 Time of Service: 14:30 Assessment and Plan (1) Acute on chronic diastolic CHF (congestive heart failure): Current visit: Yes Status: Acute EF 60-65% per echo in June. Continue decreased free water with tube feeding. Continue lasix. Monitor Cr, Sodium, I/O's, daily weights and respiratory status. (2) Aspiration pneumonia: Current visit: Yes Status: Acute Clinically, I think this has recurred. Continue zosyn and BID PPI. Add vancomycin, as the leukocytosis has not improved. (3) Schizophrenia: Current visit: No Status: Chronic with catatonia - improved/stable. Continue clonazepam. (4) Altered mental status: Current visit: Yes Status: Resolved Due to catatonia. Resolving. Continue klonopin. I do not appreciate that the patient's mental status today is any different than 2 days ago. However, the family and physical therapy feel that there may be a difference. I suspect that there may be a component of toxic metabolic encephalopathy from the UTI. (5) Dysphagia: Current visit: Yes Status: Acute Multifactorial - both oropharyngeal and esophageal, with at least part of oropharyngeal component thought to be psychogenic/due to being off of psychiatric medications. CT soft tissues of the neck was negative for any abnormality Failed repeat swallow eval. s/p PEG tube - tolerating bolus Tube feeding. If the patient is going to be tube-feeding dependent, then the necessity of outpatient monometry is questionable. She is s/p EGD on this admission with a nonobstructing Schatzki ring. (6) Weakness on right side of face: Current visit: Yes Status: Resolved No evidence for CVA or seizure. Off of anticonvulsants at this time. (7) Esophageal dysmotility: Current visit: Yes Status: Acute As above (8) Hypotension: Current visit: Yes Status: Resolved Initially, hypotension to the point of shock requiring pressors with evidence of end-organ damage with KJ and elevation in Lactate - at this point felt to be due to sepsis/shock due to aspiration pneumonia at the time. Finished hydrocortisone taper, but no actual evidence of adrenal insufficiency on admission. BP's normalized. (9) Bradycardia: Current visit: No Status: Resolved Resolved, was seen in setting of hypotension. Avoid jovan agents. ? Tachy/Justin Syndrome. No longer requiring pressors/chronotropes. (10) KJ (acute kidney injury): Current visit: Yes Status: Resolved Cr remains stable - continue to monitor (11) GERD (gastroesophageal reflux disease): Current visit: Yes Status: Chronic Continue BID PPI. Follow aspiration precautions. (12) Hypomagnesemia: Current visit: Yes Status: Resolved Continue to monitor (13) Hypernatremia: Current visit: Yes Status: Resolved Continue to monitor (14) Hypokalemia: Current visit: Yes Status: Acute Continue to monitor (15) Catheter-associated urinary tract infection: Current visit: Yes Status: Acute Catheter was changed today. Vancomycin added to Zosyn. Cultures done, pending. (16) Tooth pain: Current visit: Yes Status: Acute Patient is already on Zosyn. I have prescribed Tylenol and Magic mouthwash. (17) Discharge planning issues: Current visit: Yes Status: Acute DNR/DNI, s/p PEG Discussed with case management - patient may require a Level 2 review prior to placement. (18) DVT prophylaxis: Current visit: Yes Status: Acute Lovenox Subjective Interval history since last seen: The patient reported that her left jaw was hurting today. She was also noted to have a fever this afternoon. She complains of a nonproductive cough. She still thinks that she is short of breath, which she is describing as not breathing. She denies any dizziness, chest pain, nausea, vomiting. Her Bell catheter was changed today. Exam Narrative Exam Narrative: General: Laying in bed at a 30 degree angle; no tachypnea, no respiratory distress when talking; she is alert oriented x2; appears to be at her baseline, but sweaty HEENT: EOMI, MMM Heart: RRR, no m/r/g Lungs: Diminished breath sounds B GI: abdomen soft; RLQ mass/seroma unchanged; PEG tube site clean, dry, intact Extremities: +1 BLE edema -unchanged; no clubbing/cyanosis Objective Objective Clinical Data: Abnormal lab results 08/11/18 08/11/18 08/11/18 Range/Units 06:19 06:19 11:45 WBC 11.92 H (4.4-10.8) k/cumm RBC 3.63 L (4.00-5.20) m/cumm Hgb 9.0 L (12.0-15.5) g/dL Hct 30.9 L (36.0-46.0) % MCH 24.8 L (27.0-33.0) pg MCHC 29.1 L (32.0-36.0) g/dL RDW 19.3 H (11.7-14.6) % Plt Count 405 H (130-400) x1000/uL Absolute Neutrophils 8.36 H (1.2-6.7) k/cumm Absolute Monocytes 0.91 H (0.11-0.7) k/cumm Potassium 3.1 L (3.5-5.1) mmol/L Carbon Dioxide 34.3 H (21.0-32.0) mmol/L BUN 23 H (7-18) mg/dL Urine Protein (Negative) mg/dL Urine Ketones (Negative) mg/dL Urine Blood Trace-intact H (Negative) Urine Nitrite Positive H (Negative) Ur Leukocyte Esterase Moderate H (Negative) Urine RBC 3-5 H (0-2) 08/11/18 Range/Units 16:18 WBC (4.4-10.8) k/cumm RBC (4.00-5.20) m/cumm Hgb (12.0-15.5) g/dL Hct (36.0-46.0) % MCH (27.0-33.0) pg MCHC (32.0-36.0) g/dL RDW (11.7-14.6) % Plt Count (130-400) x1000/uL Absolute Neutrophils (1.2-6.7) k/cumm Absolute Monocytes (0.11-0.7) k/cumm Potassium (3.5-5.1) mmol/L Carbon Dioxide (21.0-32.0) mmol/L BUN (7-18) mg/dL Urine Protein 100 H (Negative) mg/dL Urine Ketones Trace H (Negative) mg/dL Urine Blood Large H (Negative) Urine Nitrite (Negative) Ur Leukocyte Esterase Small H (Negative) Urine RBC >50 H (0-2) Vital Signs Temperature 37.8 C H 08/11/18 16:18 Temperature Source Tympanic 08/11/18 16:18 Pulse 96 H 08/11/18 16:18 Pulse Rhythm Regular 08/11/18 08:50 Pulse 94 H 07/30/18 16:43 Respiratory Rate 20 08/11/18 16:18 Respiratory Effort 08/11/18 08:50 Respiratory Depth Shallow 08/11/18 08:50 Respiratory Pattern Normal 08/11/18 08:50 Blood Pressure 138/97 H 08/11/18 16:18 Blood Pressure Mean 115 07/30/18 16:43 Blood Pressure Position Supine 07/30/18 16:46 Pulse Oximetry 96 08/11/18 16:18 Respiratory End-tidal CO2 34 07/07/18 15:01 Oxygen Delivery Method Room Air 08/11/18 16:18 Oxygen Flow Rate 0 08/11/18 16:18 Fraction of Inspired Oxygen (FIO2) 28 07/16/18 00:30 Pain Level 0 08/10/18 07:55 Comment 08/04/18 04:50 Intake & Output 08/10/18 08/11/18 08/11/18 23:59 11:59 23:59 Intake Total 1300 / 1870 550 / 1670 1120 / 1670 Output Total 0 / 650 1600 / 2190 590 / 2190 Balance 1300 / 1220 -1050 / -520 530 / -520 Weight 97.9 kg Intake: IV 130 / 310 160 / 500 340 / 500 Intake, Tube Feeding Amount 1170 / 1560 390 / 1170 780 / 1170 Output: Urine 1600 / 2100 500 / 2100 Output, Residual 0 / 0 0 / 90 90 / 90 Other: Urine Color Light Sofia Yellow Urine Appearance Cloudy Clear Cloudy Sediment Sediment Comment Current catheter discontinued per MD request, new catheter placed at this time. MD requesting new urine sample, will obtain once available. Stool Occult Blood Negative Stool Size Smear Small Small Stool Characteristics Soft Liquid Liquid Brown Laboratory Results WBC 11.92 k/cumm (4.4-10.8) H 08/11/18 06:19 RBC 3.63 m/cumm (4.00-5.20) L 08/11/18 06:19 Hgb 9.0 g/dL (12.0-15.5) L 08/11/18 06:19 Hct 30.9 % (36.0-46.0) L 08/11/18 06:19 MCV 85.1 fL (80-95) 08/11/18 06:19 MCH 24.8 pg (27.0-33.0) L 08/11/18 06:19 MCHC 29.1 g/dL (32.0-36.0) L 08/11/18 06:19 RDW 19.3 % (11.7-14.6) H 08/11/18 06:19 Plt Count 405 x1000/uL (130-400) H 08/11/18 06:19 MPV 11.0 fL (8.0-11.0) 08/11/18 06:19 Abs Immat Gran (auto) Cancelled 07/13/18 08:05 Immature Gran % 0.6 08/11/18 06:19 Neutrophils % 70.1 08/11/18 06:19 Band Neutrophils % Cancelled 07/13/18 08:05 Lymphocytes % 16.3 08/11/18 06:19 Atypical Lymphs % Cancelled 07/13/18 08:05 Monocytes % 7.6 08/11/18 06:19 Eosinophils % 5.0 08/11/18 06:19 Basophils % 0.4 08/11/18 06:19 Absolute Neutrophils 8.36 k/cumm (1.2-6.7) H 08/11/18 06:19 Absolute Lymphocytes 1.94 k/cumm (1.2-3.4) 08/11/18 06:19 Absolute Monocytes 0.91 k/cumm (0.11-0.7) H 08/11/18 06:19 Absolute Eosinophils 0.60 k/cumm (0.0-0.7) 08/11/18 06:19 Absolute Basophils 0.05 k/cumm (0.0-0.2) 08/11/18 06:19 Metamyelocytes Cancelled 07/13/18 08:05 Myelocytes Cancelled 07/13/18 08:05 Promyelocytes Cancelled 07/13/18 08:05 Nucleated RBCs Cancelled 07/13/18 08:05 Differential Comment Rbc morph reviewed 07/26/18 05:47 Other Cell Type Cancelled 07/13/18 08:05 RBC Morphology See below 07/26/18 05:47 Polychromasia Present 07/17/18 06:35 Hypochromasia 1+ 07/26/18 05:47 Poikilocytosis 1+ 07/17/18 06:35 Basophilic Stippling Cancelled 07/13/18 08:05 Anisocytosis 2+ 07/17/18 06:35 Microcytosis 2+ 07/26/18 05:47 Macrocytosis Cancelled 07/13/18 08:05 Spherocytes Cancelled 07/13/18 08:05 Target Cells Cancelled 07/13/18 08:05 Tear Drop Cells Cancelled 07/13/18 08:05 Ovalocytes 2+ 07/26/18 05:47 Stomatocytes Cancelled 07/13/18 08:05 [place] Bodies Cancelled 07/13/18 08:05 [place] Cells Cancelled 07/13/18 08:05 Acanthocytes (Spur) Cancelled 07/13/18 08:05 Schistocytes 1+ 07/26/18 05:47 D-Dimer 1329 ng/mlFEU (<500) H 07/07/18 21:15 Sodium 142 mmol/L (136-145) 08/11/18 06:19 Potassium 3.1 mmol/L (3.5-5.1) L 08/11/18 06:19 Chloride 102 mmol/L (98-107) 08/11/18 06:19 Carbon Dioxide 34.3 mmol/L (21.0-32.0) H 08/11/18 06:19 Anion Gap 5.7 mmol/L (3-11) 08/11/18 06:19 BUN 23 mg/dL (7-18) H 08/11/18 06:19 Creatinine 0.60 mg/dL (0.55-1.02) 08/11/18 06:19 Estimated GFR/1.73 m2 >= 60.00 (mL/min/1.73m2) 08/11/18 06:19 Glucose 93 mg/dL (70-100) 08/11/18 06:19 Lactate 1.0 mmol/L (0.6-1.4) 07/06/18 07:20 Calcium 8.9 mg/dL (8.5-10.1) 08/11/18 06:19 Magnesium 1.8 mg/dL (1.8-2.4) 08/11/18 06:19 Iron 20 ug/dL (50-175) L 07/25/18 16:13 TIBC 235 ug/dL (250-450) L 07/25/18 16:13 Transferrin % Sat 9 % (15-50) L 07/25/18 16:13 Ferritin 35 ng/mL (8-388) 07/25/18 16:13 Total Bilirubin 0.3 mg/dL (0.2-1.0) 07/12/18 05:50 Conjugated Bilirubin 0.10 mg/dL (0.00-0.20) 07/12/18 05:50 AST 24 U/L (15-37) 07/12/18 05:50 ALT 47 U/L (12-78) 07/12/18 05:50 Alkaline Phosphatase 65 U/L (46-116) 07/12/18 05:50 Ammonia < 10 umol/L (11-32) L 07/15/18 10:20 Troponin I 0.02 ng/mL (0.00-0.06) 07/08/18 05:00 NT-Pro-B Natriuret Pep 744 pg/mL (-299) H 07/31/18 19:52 Total Protein 4.6 g/dL (6.4-8.2) L 07/12/18 05:50 Albumin 2.2 g/dL (3.4-5.0) L 07/12/18 05:50 Lipase 252 U/L (73-393) 07/04/18 13:15 Vitamin B12 471 pg/mL (193-986) 07/25/18 16:13 Folate 8.0 ng/mL (8.6-20.0) L 07/25/18 16:13 Procalcitonin <0.10 ng/mL (<or=1.5) 07/08/18 06:24 Calcitonin Cancelled 07/08/18 06:24 TSH 1.09 uIU/mL (0.358-3.74) 07/06/18 07:20 Urine Color Yellow (Yellow) 08/11/18 16:18 Urine Clarity Sl cloudy 08/11/18 16:18 Urine pH 6.5 (5-8) 08/11/18 16:18 Ur Specific [place] 1.015 (1.005-1.025) 08/11/18 16:18 Urine Protein 100 mg/dL (Negative) H 08/11/18 16:18 Urine Ketones Trace mg/dL (Negative) H 08/11/18 16:18 Urine Blood Large (Negative) H 08/11/18 16:18 Urine Nitrite Negative (Negative) 08/11/18 16:18 Urine Bilirubin Negative (Negative) 08/11/18 16:18 Urine Urobilinogen 0.2 EU/dL (Up TO 0.2) 08/11/18 16:18 Ur Leukocyte Esterase Small (Negative) H 08/11/18 16:18 Urine RBC >50 (0-2) H 08/11/18 16:18 Urine WBC 20-50 HPF (0-5) 08/11/18 16:18 Ur Epithelial Cells Few HPF (Negative) 08/11/18 16:18 Urine Crystals Negative HPF (Negative) 08/11/18 16:18 Urine Bacteria Moderate HPF (Negative) 08/11/18 16:18 Urine Casts Negative LPF (Negative) 08/11/18 16:18 Urine Mucus Trace (Negative) 08/11/18 16:18 Urine Other Rare renal (Negative) 08/11/18 11:45 Ur Culture Indicated? Yes 08/11/18 16:18 Urine Glucose Negative mg/dL (Negative) 08/11/18 16:18 Stool Campylobacter PCR See comments 07/06/18 12:45 Stool Salmonella PCR See comments 07/06/18 12:45 Stool Shigella PCR See comments 07/06/18 12:45 Vancomycin Trough 18.9 ug/mL (10.0-20.0) 07/20/18 06:17 Shiga Toxin (PCR) See comments 07/06/18 12:45 Path Cons Comment See comment 07/06/18 07:20 Miscellaneous Test Cancelled 07/08/18 06:24 Chest x-ray: Done, official read pending; per my read, the patient is vascularly congested, there is poor inspiratory effort, and there may be an opacity or atelectasis in her left base.
[2018-08-11 20:20] VITALS: BP 132/84; PULSE 93; RESP 20; TEMP 36.6; O2SAT 97
[2018-08-11] MEDS: Donepezil 5 MG TAB 10 MG UD (22:15)
[2018-08-11] MEDS: OLANZapine 5 MG TAB 10 MG UD (22:15)
[2018-08-11 23:52] VITALS: BP 125/86; PULSE 85; RESP 19; TEMP 36; O2SAT 96
[2018-08-12] VITALS (8 sets, daily range): BP systolic 115–148; BP diastolic 70–102; PULSE 82–106; RESP 19–21; TEMP 36.6–37; O2SAT 94–98
[2018-08-12] MEDS: Normal Saline Flush 10 ML SYR IVP (01:48)
[2018-08-12] MEDS: PIPERACILLIN/TAZO 3.375 GM in Normal Saline 50 ML IVPB ×4 (01:48→20:00)
[2018-08-12] MEDS: VANCOMYCIN 1,250 MG in Normal Saline 250 ML 166.667 MG IV (02:36)
[2018-08-12 07:45] LABS: Abs Immature Grans 0.04 k/cumm (0.0-0.09); Absolute Eosinophil Count 0.62 k/cumm (0.0-0.7); Absolute Lymphocyte Count 1.88 k/cumm (1.2-3.4); Absolute Monocyte Count 1.06 k/cumm (0.11-0.7); Absolute Neutrophil Count 7.27 k/cumm (1.2-6.7); Basophils % 0.5; Eosinophils % 5.7; HCT 29.2 % (36.0-46.0); HGB 8.7 g/dL (12.0-15.5); Immature Grans % 0.4; Lymphocytes % 17.2; Mean Corp. HGB Concentration 29.8 g/dL (32.0-36.0); Mean Corpuscular Hemoglobin 25.3 pg (27.0-33.0); Mean Corpuscular Volume 84.9 fL (80-95); Mean Platelet Volume 11.4 fL (8.0-11.0); Monocytes % 9.7; Neutrophils % 66.5; Platelet Count 383 x1000/uL (130-400); RBC 3.44 m/cumm (4.00-5.20); RBC Distribution Width 19.4 % (11.7-14.6); White Blood Cell Count 10.93 k/cumm (4.4-10.8)
[2018-08-12 07:47] LABS: Absolute Basophil Count 0.05 k/cumm (0.0-0.2)
[2018-08-12 07:50] LABS: Anion Gap 6.1 mmol/L (3-11); BUN 24 mg/dL (7-18); CO2 33.9 mmol/L (21.0-32.0); CREATININE 0.59 mg/dL (0.55-1.02); Calcium 8.9 mg/dL (8.5-10.1); Chloride 103 mmol/L (98-107); Glucose 93 mg/dL (70-100); Magnesium 1.9 mg/dL (1.8-2.4); Potassium 3.3 mmol/L (3.5-5.1); Sodium 143 mmol/L (136-145)
[2018-08-12] MEDS: Enoxaparin 40 MG/0.4 ML SYR SC (09:20)
[2018-08-12] MEDS: Memantine 5 MG TAB 10 MG UD ×2 (09:20→20:00)
[2018-08-12] MEDS: Furosemide 20 MG/2 ML VIAL IVP (09:20)
[2018-08-12] MEDS: amLODIPine 5 MG TAB PO (09:20)
[2018-08-12] MEDS: Pantoprazole 40 MG VIAL IVP ×2 (09:20→20:00)
[2018-08-12] MEDS: Cyanocobalamin 500 MCG TAB 1000 MCG NG (09:21)
[2018-08-12] MEDS: clonazePAM 1 MG TAB PO ×2 (09:21→19:59)
[2018-08-12] MEDS: Ascorbic Acid 500 MG TAB NG ×2 (09:21→19:59)
[2018-08-12] MEDS: Methimazole 5 MG TAB UD (09:21)
[2018-08-12] MEDS: Folic Acid 1 MG TAB NG (09:21)
[2018-08-12] MEDS: Normal Saline Flush 10 ML SYR 20 ML IVP ×2 (09:22→19:58)
[2018-08-12] MEDS: Nystatin POWDER 60 GM JAR TP ×2 (09:24→19:57)
[2018-08-12] MEDS: Ferrous Sulfate 44 MG/ML Liquid 325 MG NG ×2 (09:37→19:58)
--- NOTE | 2018-08-12 09:46 | OTPN_ITS ---
Date of service: 08/12/18 Time of Service: 08:45 Occupational Therapy Notes Occupational Therapy Inpatient Progress Note Date: 08/12/18 Dates of Service: 08/04/18-08/12/18 Referring Doctor:Dr. Sigala OT Orders: a Precautions: Fall, standard precautions PATIENT PROFILE/ADMITTING DIAGNOSIS: Pt is a 63 year old female who was admitted with c/o weakness, and found in the ER to be hypotensive last month. She has had a prolonged hospital stay, with a decline in medical status resulting in transfer to the ICU and is now being managed on Med Surg. Past Medical History:cognitive dysfunction; HTN; GERD; schizophrenia; Graves disease; esophageal stricture s/p dilation Social History/Home Situation:Prior to admission to [facility] she lived alone in [place] at an assisted living facility. Lives on second floor with elevator or 14 steps. 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 Her baseline level of function for ADLs was (I). Equipment owned/DME: 4WW SUBJECTIVE: Pt was toileting when OT arrived with PT, she was agreeable to OT session and reports that her jaw is still hurting. OBJECTIVE: General Observation: PICC connected (L) UE, Bell, PEG tube Mental Status: Alert and aware of place and name Pain: no c/o pain ROM: RUE Shoulder AROM to 110*, wrist and hand WNL L UE Shoulder AROM to 110*, wrist and hand WNL STRENGTH: RUE 4/5 throughout globally LUE 4/5 throughout globally FUNCTIONAL MOBILITY/ADLS: Transfers Supine-sit: S Sit-supine: S Sit-stand: CGA Stand-sit: CGA BATHING Sitting in chair with max (A) set up Bathing UE (I) wash UE with min vc Bathing LE (I) was to knees and lower legs with max (A) (B) feet DRESSING Sitting in chair Dressing UE (I) [facility] and doff [facility] gown with min vc for pulling up arm sleeves. Dressing LE max (A) (B) socks GROOMING Sitting in chair with max (A) set up, pt was (I) brushing her teeth and combing her hair with min vc for brushing and spitting tooth paste. TOILETING on toilet with max (A) toileting hygiene EATING NPO BALANCE: Static sitting Normal Dynamic Sitting Good Static Standing Good Dynamic Standing Good ASSESSMENT: Patient is a 63-year-old female referred to occupational therapy services with diagnosis of deconditioned, long hospitalization. She has been seen for 6 OT sessions and is progressing well. She has not met all of her OT goals at this time and continues to progress towards them. She was able to tolerate a shower last session with min-mod (A) for UE/LE bathing routine. OT will continue to work with pt to progress (I) in ADLs. OT recommends that pt go to SNF for further rehabilitation. GOALS Goals x1 week 1. Grooming standing at sink with FWW, SBA pt will be able to perform teeth brus brigette and brushing her hair (I). (NOT MET) 2. Dressing sitting in chair with mod (A) for (B) socks pt will be able to (I) don and doff pants and shirt. (NOT MET) 3. Bathing standing at sink with CGA, FWW pt will be able to perform bathing routing with mod (A) lower legs. (NOT MET) 4. Toileting pt will be able to perform toileting routine on toilet with min (A) (MET) 5. Eating (I) (Pt is NPO) PLAN OF CARE/TREATMENT PLAN: 1x/day, 5 days/ week x 1week Initiate Occupational Therapy Services for bathing, dressing, grooming, toileting, eating, transfer training. DISCHARGE RECOMMENDATIONS To SNF for further rehabilitation and assistance when medically cleared per MD. TREATMENT TIME/MINUTES/CODES [id number], 41 minutes (08:45) [facility]
--- NOTE | 2018-08-12 11:13 | PT.INTREAT ---
Date of service: 08/12/18 Time of Service: 08:25 PT Notes [facility] Date: 08/12/18 PRECAUTIONS: Fall SUBJECTIVE: Christie reports that she is feeling better today. She is receptive to PT this morning. OBJECTIVE: BED MOBILITY/TRANSFERS Supine-sit: S Sit-supine: S Sit-stand: CGA Stand-sit: CGA GAIT Assistive Device: 4WW Weight bearing: Full Assist: CGA Distance: 20'x1; 10'x1 Deviation: assistance to 4WW THEREX: Completed a lower extremity strengthening and upper extremity strengthening program, as per flow sheet. Patient tolerated addition of closed chain strengthening activities, including standing march with CG and UE support to 4WW, and alternating shoulder flexion in standing to improve WBing through LEs. Full program can be found noted on flowsheet. ASSESSMENT: Patient tolerated session well, with improving tolerance to short distance ambulation. She would benefit from continued gait and transfer training as well as strengthening for improved mobility and improved activity tolerance. PLAN: Continue per established POC with progressive strengthening and gait/transfer training. TREATMENT CODE/TIME: 8:25-8:50, 9:30-9:40 (35 minutes) ; [id number], [id number] Karen Floyd, PT, DPT
[2018-08-12] MEDS: POTASSIUM CHLORIDE 20 MEQ/100 ML BAG 50 MEQ IVPB ×2 (13:14→15:41)
[2018-08-12] MEDS: VANCOMYCIN 1,250 MG in Normal Saline 250 ML 166 MG IV (13:14)
--- NOTE | 2018-08-12 13:25 | PT.INTREAT ---
Date of service: 08/12/18 Time of Service: 13:25 PT Notes Inpatient Physical Therapy Treatment Note [facility] Date: 08/12/18 PRECAUTIONS: Fall SUBJECTIVE: Christie states she feels she is not doing that well with her mobility, although states she feels pretty good today. OBJECTIVE: PAIN: No complaints of pain BED MOBILITY/TRANSFERS Sit-stand: CGA Stand-sit: CGA GAIT Assistive Device: 4 WW Weight bearing: Full Assist: CGA Distance: 30' +20' Deviation: Seated rest x1 THEREX: Declined due to fatigue TOILETING: Patient toileted with assist for care and transfers ASSESSMENT: Patient tolerated session with complaints of increased fatigue. Patient was able to tolerate a progression in gait distance with 4 WW support and CGA with wheelchair follow. Patient required seated rest x1 due to fatigue. Patient declined ther ex due to fatigue. Patient would benefit from continued gait and transfer training as well as strengthening for improved mobility as well as improved activity tolerance. PLAN: Continue with PTs POC TREATMENT CODE/TIME: 25 minutes; [id number] x2
--- NOTE | 2018-08-12 13:52 | PDOC.CMPRO ---
Care Management Progress Note S/O: Christie continues to work well with PT/OT and reported feeling better today. She continues to be closely monitored for suspected aspiration pneumonia and remains acute at this time. CM will continue to follow. A: 63 yo disabled female admitted for hypotension, aspiration pneumonia now with a PEG tube placement. P: SNF coordination continues in anticipation of medical stabilization, Christie remains pleasant in interaction and continues to make good effort working with PT/OT/Speech/Psych/Nutrition and medical staff. SNF placement coordination has been difficult given her dual diagnosis, medical complexity and family choice. CM will continue to provide support ongoing discharge planning and disposition.
[2018-08-12] MEDS: Loperamide 2 MG CAP NG ×2 (14:18→20:00)
--- NOTE | 2018-08-12 19:02 | W.PM.PROGNOT ---
Date of Service Date of service: 08/12/18 Time of Service: 15:00 Assessment and Plan (1) Acute on chronic diastolic CHF (congestive heart failure): Current visit: Yes Status: Acute EF 60-65% per echo in June. Continue decreased free water with tube feeding. Increase lasix. Monitor Cr, Sodium, I/O's, daily weights and respiratory status. (2) Aspiration pneumonia: Current visit: Yes Status: Acute Clinically, I think this has recurred. Continue zosyn and BID PPI. D/c Vancomycin - (3) Schizophrenia: Current visit: No Status: Chronic with catatonia - improved/stable. Continue clonazepam. (4) Altered mental status: Current visit: Yes Status: Resolved Due to catatonia. Resolving. Continue klonopin. I suspect that there may be a small component of toxic metabolic encephalopathy from the UTI now, but this is better (5) Dysphagia: Current visit: Yes Status: Acute Multifactorial - both oropharyngeal and esophageal, with at least part of oropharyngeal component thought to be psychogenic/due to being off of psychiatric medications. CT soft tissues of the neck was negative for any abnormality Failed repeat swallow eval. s/p PEG tube - tolerating bolus Tube feeding. If the patient is going to be tube-feeding dependent, then the necessity of outpatient monometry is questionable. She is s/p EGD on this admission with a nonobstructing Schatzki ring. (6) Weakness on right side of face: Current visit: Yes Status: Resolved No evidence for CVA or seizure. Off of anticonvulsants at this time. (7) Esophageal dysmotility: Current visit: Yes Status: Acute As above (8) Hypotension: Current visit: Yes Status: Resolved Initially, hypotension to the point of shock requiring pressors with evidence of end-organ damage with KJ and elevation in Lactate - at this point felt to be due to sepsis/shock due to aspiration pneumonia at the time. Finished hydrocortisone taper, but no actual evidence of adrenal insufficiency on admission. BP's normalized. (9) Bradycardia: Current visit: No Status: Resolved Resolved, was seen in setting of hypotension. Avoid jovan agents. ? Tachy/Justin Syndrome. No longer requiring pressors/chronotropes. (10) KJ (acute kidney injury): Current visit: Yes Status: Resolved Cr remains stable - continue to monitor (11) GERD (gastroesophageal reflux disease): Current visit: Yes Status: Chronic Continue BID PPI. Follow aspiration precautions. (12) Hypomagnesemia: Current visit: Yes Status: Resolved Continue to monitor (13) Hypernatremia: Current visit: Yes Status: Resolved Continue to monitor (14) Hypokalemia: Current visit: Yes Status: Acute Continue to monitor (15) Catheter-associated urinary tract infection: Current visit: Yes Status: Acute Catheter was changed 08/11/18. Culture is growing Pseudomonas; sensitivities are pending. D/c vancomcyin. Continue Zosyn (effectively, Day 2). (16) Tooth pain: Current visit: Yes Status: Acute Patient is already on Zosyn. Continue Tylenol and Magic mouthwash. (17) Discharge planning issues: Current visit: Yes Status: Acute DNR/DNI, s/p PEG Discussed with case management - patient may require a Level 2 review prior to placement. (18) DVT prophylaxis: Current visit: Yes Status: Acute Lovenox Subjective Interval history since last seen: Christie states her tooth doesn't hurt today. She denies any dizziness, chest pain, shortness of breath (but continues to say that I feel like I'm not breathing!, which is different than shortness of breath to her); Denies nausea, vomiting. Exam Narrative Exam Narrative: General: sitting up in a chair, looks a little bit brighter; no tachypnea, no respiratory distress when talking; she is alert oriented x2; HEENT: EOMI, MMM Heart: RRR, no m/r/g Lungs: Diminished breath sounds B GI: abdomen soft; RLQ mass/seroma unchanged; PEG tube site clean, dry, intact Extremities: +1 BLE edema -unchanged; no clubbing/cyanosis Objective Objective Clinical Data: Abnormal lab results 08/12/18 08/12/18 Range/Units 06:35 06:35 WBC 10.93 H (4.4-10.8) k/cumm RBC 3.44 L (4.00-5.20) m/cumm Hgb 8.7 L (12.0-15.5) g/dL Hct 29.2 L (36.0-46.0) % MCH 25.3 L (27.0-33.0) pg MCHC 29.8 L (32.0-36.0) g/dL RDW 19.4 H (11.7-14.6) % MPV 11.4 H (8.0-11.0) fL Absolute Neutrophils 7.27 H (1.2-6.7) k/cumm Absolute Monocytes 1.06 H (0.11-0.7) k/cumm Potassium 3.3 L (3.5-5.1) mmol/L Carbon Dioxide 33.9 H (21.0-32.0) mmol/L BUN 24 H (7-18) mg/dL Vital Signs Temperature 37 C 08/12/18 16:08 Temperature Source Tympanic 08/12/18 16:08 Pulse 92 H 08/12/18 16:08 Pulse Rhythm Regular 08/12/18 08:00 Pulse 94 H 07/30/18 16:43 Respiratory Rate 19 08/12/18 16:08 Respiratory Effort 08/12/18 08:00 Respiratory Depth Shallow 08/12/18 08:00 Respiratory Pattern Normal 08/12/18 08:00 Blood Pressure 124/88 08/12/18 16:08 Blood Pressure Mean 115 07/30/18 16:43 Blood Pressure Position Supine 07/30/18 16:46 Pulse Oximetry 97 08/12/18 16:08 Respiratory End-tidal CO2 34 07/07/18 15:01 Oxygen Delivery Method Room Air 08/12/18 16:08 Oxygen Flow Rate 0 08/12/18 16:08 Fraction of Inspired Oxygen (FIO2) 28 07/16/18 00:30 Pain Level 0 08/12/18 04:17 Comment 08/12/18 14:50 Intake & Output 08/11/18 08/12/18 08/12/18 23:59 11:59 23:59 Intake Total 1580 / 2130 740 / 1230 490 / 1230 Output Total 840 / 2440 1200 / 1650 450 / 1650 Balance 740 / -310 -460 / -420 40 / -420 Weight 97.6 kg Intake: IV 410 / 570 350 / 450 100 / 450 Intake, Tube Feeding Amount 1170 / 1560 390 / 780 390 / 780 Output: Urine 750 / 2350 1200 / 1650 450 / 1650 Output, Residual 90 / 90 0 / 0 0 / 0 Other: Urine Color Yellow Yellow Yellow Urine Appearance Clear Clear Clear Comment Current catheter discontinued per MD request, new catheter placed at this time. MD requesting new urine sample, will obtain once available. Stool Size Small Moderate Smear Stool Characteristics Liquid Liquid Liquid Brown Brown Laboratory Results WBC 10.93 k/cumm (4.4-10.8) H 08/12/18 06:35 RBC 3.44 m/cumm (4.00-5.20) L 08/12/18 06:35 Hgb 8.7 g/dL (12.0-15.5) L 08/12/18 06:35 Hct 29.2 % (36.0-46.0) L 08/12/18 06:35 MCV 84.9 fL (80-95) 08/12/18 06:35 MCH 25.3 pg (27.0-33.0) L 08/12/18 06:35 MCHC 29.8 g/dL (32.0-36.0) L 08/12/18 06:35 RDW 19.4 % (11.7-14.6) H 08/12/18 06:35 Plt Count 383 x1000/uL (130-400) 08/12/18 06:35 MPV 11.4 fL (8.0-11.0) H 08/12/18 06:35 Abs Immat Gran (auto) Cancelled 07/13/18 08:05 Immature Gran % 0.4 08/12/18 06:35 Neutrophils % 66.5 08/12/18 06:35 Band Neutrophils % Cancelled 07/13/18 08:05 Lymphocytes % 17.2 08/12/18 06:35 Atypical Lymphs % Cancelled 07/13/18 08:05 Monocytes % 9.7 08/12/18 06:35 Eosinophils % 5.7 08/12/18 06:35 Basophils % 0.5 08/12/18 06:35 Absolute Neutrophils 7.27 k/cumm (1.2-6.7) H 08/12/18 06:35 Absolute Lymphocytes 1.88 k/cumm (1.2-3.4) 08/12/18 06:35 Absolute Monocytes 1.06 k/cumm (0.11-0.7) H 08/12/18 06:35 Absolute Eosinophils 0.62 k/cumm (0.0-0.7) 08/12/18 06:35 Absolute Basophils 0.05 k/cumm (0.0-0.2) 08/12/18 06:35 Metamyelocytes Cancelled 07/13/18 08:05 Myelocytes Cancelled 07/13/18 08:05 Promyelocytes Cancelled 07/13/18 08:05 Nucleated RBCs Cancelled 07/13/18 08:05 Differential Comment Rbc morph reviewed 07/26/18 05:47 Other Cell Type Cancelled 07/13/18 08:05 RBC Morphology See below 07/26/18 05:47 Polychromasia Present 07/17/18 06:35 Hypochromasia 1+ 07/26/18 05:47 Poikilocytosis 1+ 07/17/18 06:35 Basophilic Stippling Cancelled 07/13/18 08:05 Anisocytosis 2+ 07/17/18 06:35 Microcytosis 2+ 07/26/18 05:47 Macrocytosis Cancelled 07/13/18 08:05 Spherocytes Cancelled 07/13/18 08:05 Target Cells Cancelled 07/13/18 08:05 Tear Drop Cells Cancelled 07/13/18 08:05 Ovalocytes 2+ 07/26/18 05:47 Stomatocytes Cancelled 07/13/18 08:05 [place] Bodies Cancelled 07/13/18 08:05 [place] Cells Cancelled 07/13/18 08:05 Acanthocytes (Spur) Cancelled 07/13/18 08:05 Schistocytes 1+ 07/26/18 05:47 D-Dimer 1329 ng/mlFEU (<500) H 07/07/18 21:15 Sodium 143 mmol/L (136-145) 08/12/18 06:35 Potassium 3.3 mmol/L (3.5-5.1) L 08/12/18 06:35 Chloride 103 mmol/L (98-107) 08/12/18 06:35 Carbon Dioxide 33.9 mmol/L (21.0-32.0) H 08/12/18 06:35 Anion Gap 6.1 mmol/L (3-11) 08/12/18 06:35 BUN 24 mg/dL (7-18) H 08/12/18 06:35 Creatinine 0.59 mg/dL (0.55-1.02) 08/12/18 06:35 Estimated GFR/1.73 m2 >= 60.00 (mL/min/1.73m2) 08/12/18 06:35 Glucose 93 mg/dL (70-100) 08/12/18 06:35 Lactate 1.0 mmol/L (0.6-1.4) 07/06/18 07:20 Calcium 8.9 mg/dL (8.5-10.1) 08/12/18 06:35 Magnesium 1.9 mg/dL (1.8-2.4) 08/12/18 06:35 Iron 20 ug/dL (50-175) L 07/25/18 16:13 TIBC 235 ug/dL (250-450) L 07/25/18 16:13 Transferrin % Sat 9 % (15-50) L 07/25/18 16:13 Ferritin 35 ng/mL (8-388) 07/25/18 16:13 Total Bilirubin 0.3 mg/dL (0.2-1.0) 07/12/18 05:50 Conjugated Bilirubin 0.10 mg/dL (0.00-0.20) 07/12/18 05:50 AST 24 U/L (15-37) 07/12/18 05:50 ALT 47 U/L (12-78) 07/12/18 05:50 Alkaline Phosphatase 65 U/L (46-116) 07/12/18 05:50 Ammonia < 10 umol/L (11-32) L 07/15/18 10:20 Troponin I 0.02 ng/mL (0.00-0.06) 07/08/18 05:00 NT-Pro-B Natriuret Pep 744 pg/mL (-299) H 07/31/18 19:52 Total Protein 4.6 g/dL (6.4-8.2) L 07/12/18 05:50 Albumin 2.2 g/dL (3.4-5.0) L 07/12/18 05:50 Lipase 252 U/L (73-393) 07/04/18 13:15 Vitamin B12 471 pg/mL (193-986) 07/25/18 16:13 Folate 8.0 ng/mL (8.6-20.0) L 07/25/18 16:13 Procalcitonin <0.10 ng/mL (<or=1.5) 07/08/18 06:24 Calcitonin Cancelled 07/08/18 06:24 TSH 1.09 uIU/mL (0.358-3.74) 07/06/18 07:20 Urine Color Yellow (Yellow) 08/11/18 16:18 Urine Clarity Sl cloudy 08/11/18 16:18 Urine pH 6.5 (5-8) 08/11/18 16:18 Ur Specific [place] 1.015 (1.005-1.025) 08/11/18 16:18 Urine Protein 100 mg/dL (Negative) H 08/11/18 16:18 Urine Ketones Trace mg/dL (Negative) H 08/11/18 16:18 Urine Blood Large (Negative) H 08/11/18 16:18 Urine Nitrite Negative (Negative) 08/11/18 16:18 Urine Bilirubin Negative (Negative) 08/11/18 16:18 Urine Urobilinogen 0.2 EU/dL (Up TO 0.2) 08/11/18 16:18 Ur Leukocyte Esterase Small (Negative) H 08/11/18 16:18 Urine RBC >50 (0-2) H 08/11/18 16:18 Urine WBC 20-50 HPF (0-5) 08/11/18 16:18 Ur Epithelial Cells Few HPF (Negative) 08/11/18 16:18 Urine Crystals Negative HPF (Negative) 08/11/18 16:18 Urine Bacteria Moderate HPF (Negative) 08/11/18 16:18 Urine Casts Negative LPF (Negative) 08/11/18 16:18 Urine Mucus Trace (Negative) 08/11/18 16:18 Urine Other Rare renal (Negative) 08/11/18 11:45 Ur Culture Indicated? Yes 08/11/18 16:18 Urine Glucose Negative mg/dL (Negative) 08/11/18 16:18 Stool Campylobacter PCR See comments 07/06/18 12:45 Stool Salmonella PCR See comments 07/06/18 12:45 Stool Shigella PCR See comments 07/06/18 12:45 Vancomycin Trough 18.9 ug/mL (10.0-20.0) 07/20/18 06:17 Shiga Toxin (PCR) See comments 07/06/18 12:45 Path Cons Comment See comment 07/06/18 07:20 Miscellaneous Test Cancelled 07/08/18 06:24 Urine C&S 08/11/18: pseudomonas auruginosa >100,000 CFU
[2018-08-12] MEDS: OLANZapine 5 MG TAB 10 MG UD (21:56)
[2018-08-12] MEDS: Donepezil 5 MG TAB 10 MG UD (21:56)
[2018-08-12] MEDS: guaiFENesin/D-METHORPHAN HB 5 ML CUP UD (21:56)
[2018-08-13] VITALS (8 sets, daily range): BP systolic 126–153; BP diastolic 80–112; PULSE 83–93; RESP 16–20; TEMP 36–37; O2SAT 94–100
[2018-08-13] MEDS: PIPERACILLIN/TAZO 3.375 GM in Normal Saline 50 ML IVPB ×4 (02:02→20:27)
[2018-08-13] MEDS: Normal Saline Flush 10 ML SYR IVP ×4 (02:03→16:44)
[2018-08-13] MEDS: Loperamide 2 MG CAP NG (06:09)
[2018-08-13 07:33] LABS: Anion Gap 5.8 mmol/L (3-11); BUN 21 mg/dL (7-18); CO2 33.2 mmol/L (21.0-32.0); CREATININE 0.57 mg/dL (0.55-1.02); Chloride 103 mmol/L (98-107); Glucose 93 mg/dL (70-100); Magnesium 1.8 mg/dL (1.8-2.4); Potassium 3.1 mmol/L (3.5-5.1); Sodium 142 mmol/L (136-145)
[2018-08-13 07:34] LABS: Abs Immature Grans 0.03 k/cumm (0.0-0.09); Absolute Basophil Count 0.06 k/cumm (0.0-0.2); Absolute Eosinophil Count 0.67 k/cumm (0.0-0.7); Absolute Lymphocyte Count 1.42 k/cumm (1.2-3.4); Absolute Monocyte Count 0.83 k/cumm (0.11-0.7); Absolute Neutrophil Count 5.97 k/cumm (1.2-6.7); Basophils % 0.7; Eosinophils % 7.5; HCT 29.2 % (36.0-46.0); HGB 8.6 g/dL (12.0-15.5); Immature Grans % 0.3; Lymphocytes % 15.8; Mean Corp. HGB Concentration 29.5 g/dL (32.0-36.0); Mean Corpuscular Volume 84.9 fL (80-95); Mean Platelet Volume 11.3 fL (8.0-11.0); Monocytes % 9.2; Neutrophils % 66.5; Platelet Count 353 x1000/uL (130-400); RBC 3.44 m/cumm (4.00-5.20); RBC Distribution Width 19.5 % (11.7-14.6); White Blood Cell Count 8.98 k/cumm (4.4-10.8)
[2018-08-13] MEDS: Cyanocobalamin 500 MCG TAB 1000 MCG NG (09:30)
[2018-08-13] MEDS: Folic Acid 1 MG TAB NG (09:30)
[2018-08-13] MEDS: Memantine 5 MG TAB 10 MG UD ×2 (09:30→20:27)
[2018-08-13] MEDS: Ascorbic Acid 500 MG TAB NG ×2 (09:30→20:27)
[2018-08-13] MEDS: Methimazole 5 MG TAB 10 MG UD (09:30)
[2018-08-13] MEDS: amLODIPine 5 MG TAB PO (09:30)
[2018-08-13] MEDS: clonazePAM 1 MG TAB PO ×2 (09:30→20:27)
[2018-08-13] MEDS: Enoxaparin 40 MG/0.4 ML SYR SC (09:31)
[2018-08-13] MEDS: Normal Saline Flush 10 ML SYR 20 ML IVP ×2 (09:31→20:28)
[2018-08-13] MEDS: Ferrous Sulfate 44 MG/ML Liquid 325 MG NG ×2 (09:32→20:32)
[2018-08-13] MEDS: Furosemide 20 MG/2 ML VIAL IVP ×2 (09:34→16:43)
[2018-08-13] MEDS: Pantoprazole 40 MG VIAL IVP ×2 (09:34→20:28)
[2018-08-13] MEDS: Nystatin POWDER 60 GM JAR TP ×2 (09:39→20:33)
--- NOTE | 2018-08-13 10:22 | OT.INTREAT ---
Date of service: 08/13/18 Time of Service: 08:40 Occupational Therapy Notes Occupational Therapy Inpatient Treatment Note Date: 08/13/18 PRECAUTIONS: fall, standard precautions SUBJECTIVE: Pt was lying in bed when OT arrived. She was agreeable to OT session and states that she slept good last night. OBJECTIVE: PAIN:no c/o pain but pt reports that her legs feel weak. FUNCTIONAL MOBILITY Performed by FACE BURLER, please refer to note for specifics. BATHING: Upper Body: Sitting at sink pt was able to (I) wash face, sitting in chair pt performed UE with min (A) for underarms, max (A) For back. Lower Body: Mod (A) for LE sitting in chair. DRESSING: Upper Extremity: Sitting in chair min (A) [facility] gown Lower Extremity: Max (A) (B) socks GROOMING: Standing at sink with CGA pt was able to perform teeth brushing (I) with min vc. TOILETING: Device: Bell, Commlesly Assist: Max (A) toileting hygiene on commode EATING: NPO ASSESSMENT/PLAN: Pt is demonstrating increased functional activity tolerance to perform ADLs in standing position at sink. She was able to tolerate standing at sink for teeth brushing at OT will continue to progress this for increased (I) in ADLs. TREATMENT CODES/TIME: [id number], 30 minutes (08:40) Ashtyn Alvarez OTR/[facility]
--- NOTE | 2018-08-13 10:33 | OTTR_ITS ---
Date of service: 08/13/18 Time of Service: 08:40 Occupational Therapy Notes Occupational Therapy Inpatient Treatment Note Date: 08/13/18 PRECAUTIONS: fall, standard precautions SUBJECTIVE: Pt was lying in bed when OT arrived. She was agreeable to OT session and states that she slept good last night. OBJECTIVE: PAIN:no c/o pain but pt reports that her legs feel weak. FUNCTIONAL MOBILITY Performed by STRATEGIC PARTNERSHIP MANAGER, please refer to note for specifics. BATHING: Upper Body: Sitting at sink pt was able to (I) wash face, sitting in chair pt performed UE with min (A) for underarms, max (A) For back. Lower Body: Mod (A) for LE sitting in chair. DRESSING: Upper Extremity: Sitting in chair min (A) [facility] gown Lower Extremity: Max (A) (B) socks GROOMING: Standing at sink with CGA pt was able to perform teeth brushing (I) with min vc. TOILETING: Device: Bell, Commlesly Assist: Max (A) toileting hygiene on commode EATING: NPO ASSESSMENT/PLAN: Pt is demonstrating increased functional activity tolerance to perform ADLs in standing position at sink. She was able to tolerate standing at sink for teeth brushing at OT will continue to progress this for increased (I) in ADLs. TREATMENT CODES/TIME: [id number], 30 minutes (08:40) Ashtyn Alvarez OTR/[facility]
--- NOTE | 2018-08-13 11:02 | PTTR_ITS ---
Date of service: 08/13/18 Time of Service: 11:01 PT Notes 08/13/18 SUBJECTIVE: Christie agreeable to PT treatment. Upon walking she notes LE fatigue. OBJECTIVE: Pt is in bed upon entering room. TRANSFERS Supine to sit: S Sit to stand: CGA Stand to sit: CGA GAIT: Device: 4WW Weight bearing: Full Assist: CGA Distance: 20'+10', 2 stand pivot transfers Deviation: Wheel chair follow. Therex: Seated LE/UE strengthening exercises performed as noted on flow sheet. She also performs standing balance at sink today x 3 minutes unsupported with wheel chair behind her. ASSESSMENT: Despite feeling fatigued this AM she tolerates gait and transfers well. She seem to know her limits with her mobility and knows when she needs to sit and rest. She will continue to benefit from physical therapy services to increase strength and endurance. PLAN: Continue per established POC. Treatment time: 30 minutes [id number], [id number] Alice Howard, FOOD TECHNOLOGY TEACHER
[2018-08-13] MEDS: POTASSIUM CHLORIDE 20 MEQ/100 ML BAG 50 MEQ IVPB ×2 (11:55→14:17)
--- NOTE | 2018-08-13 13:06 | PT.INTREAT ---
Date of service: 08/13/18 Time of Service: 13:07 PT Notes 08/13/18 SUBJECTIVE: Christie agreeable to PT treatment. Post treatment stating she is quite tired. OBJECTIVE: Seated in recliner upon entering room. TRANSFERS Sit to stand: CGA Stand to sit: CGA GAIT Device: 4WW Weight bearing: Full Assist: CGA distance: 25'+25' Deviation: One sit rest break. Wheel chair follow. Therex: Pt declined due to fatigue. ASSESSMENT: Good effort with PT today. She is fatigued from increase in her gait distance total today. PLAN: Continue with established POC. Direct time: 25 minutes(Session # 2) [id number] Alice Howard, LEAD PASTOR
--- NOTE | 2018-08-13 13:10 | PTTR_ITS ---
Date of service: 08/13/18 Time of Service: 13:07 PT Notes 08/13/18 SUBJECTIVE: Christie agreeable to PT treatment. Post treatment stating she is quite tired. OBJECTIVE: Seated in recliner upon entering room. TRANSFERS Sit to stand: CGA Stand to sit: CGA GAIT Device: 4WW Weight bearing: Full Assist: CGA distance: 25'+25' Deviation: One sit rest break. Wheel chair follow. Therex: Pt declined due to fatigue. ASSESSMENT: Good effort with PT today. She is fatigued from increase in her gait distance total today. PLAN: Continue with established POC. Direct time: 25 minutes(Session # 2) [id number] Alice Howard, CASTING INSPECTOR
[2018-08-13] MEDS: Acetaminophen Solution 650 MG/20.3 ML CUP NG (14:41)
--- NOTE | 2018-08-13 17:27 | PDOC.CMPRO ---
Care Management Progress Note S/O: Christie continues to work well with PT/OT and is pleasant in interaction. She continues to be closely monitored and remains acute at this time. CM met with Christie and Netta and heard Netta's concerns about her feeling Christie's presentation changed over the weekend. She noted that Christie's left eye is drifting to the left and she is having headaches and processing slower. She also reported Christie is unable to write and sign her name as well as she could last week and questioned if Neuro and Psych would see Christie again. CM agreed to relay her concerns to MD. CM will continue to follow. A: 63 yo disabled female admitted for hypotension, aspiration pneumonia now with a PEG tube placement. P: SNF coordination continues in anticipation of medical stabilization, Christie remains pleasant in interaction and continues to make good effort working with PT/OT/Speech/Psych/Nutrition and medical staff. SNF placement coordination has been difficult given her dual diagnosis, medical complexity and family choice. CM will continue to provide support ongoing discharge planning and disposition.
--- NOTE | 2018-08-13 20:33 | W.PM.PROGNOT ---
Date of Service Date of service: 08/13/18 Time of Service: 16:40 Assessment and Plan (1) Acute on chronic diastolic CHF (congestive heart failure): Current visit: Yes Status: Acute EF 60-65% per echo in June. Continue decreased free water with tube feeding. Continue current dose of lasix. Monitor Cr, Sodium, I/O's, daily weights and respiratory status. (2) Aspiration pneumonia: Current visit: Yes Status: Acute Recurent. Continue zosyn and BID PPI. (3) Schizophrenia: Current visit: No Status: Chronic with catatonia - improved/stable. Continue clonazepam. (4) Altered mental status: Current visit: Yes Status: Resolved Due to catatonia. Resolving. Continue klonopin. I suspect that there may be a small component of toxic metabolic encephalopathy from the UTI now, but this is better (5) Dysphagia: Current visit: Yes Status: Acute Multifactorial - both oropharyngeal and esophageal, with at least part of oropharyngeal component thought to be psychogenic/due to being off of psychiatric medications. CT soft tissues of the neck was negative for any abnormality Failed repeat swallow eval. s/p PEG tube - tolerating bolus Tube feeding. If the patient is going to be tube-feeding dependent, then the necessity of outpatient monometry is questionable. She is s/p EGD on this admission with a nonobstructing Schatzki ring. (6) Weakness on right side of face: Current visit: Yes Status: Resolved No evidence for CVA or seizure. Off of anticonvulsants at this time. (7) Esophageal dysmotility: Current visit: Yes Status: Acute As above (8) Hypotension: Current visit: Yes Status: Resolved Initially, hypotension to the point of shock requiring pressors with evidence of end-organ damage with KJ and elevation in Lactate - at this point felt to be due to sepsis/shock due to aspiration pneumonia at the time. Finished hydrocortisone taper, but no actual evidence of adrenal insufficiency on admission. BP's normalized. (9) Bradycardia: Current visit: No Status: Resolved Resolved, was seen in setting of hypotension. Avoid jovan agents. ? Tachy/Justin Syndrome. No longer requiring pressors/chronotropes. (10) KJ (acute kidney injury): Current visit: Yes Status: Resolved Cr remains stable - continue to monitor (11) GERD (gastroesophageal reflux disease): Current visit: Yes Status: Chronic Continue BID PPI. Follow aspiration precautions. (12) Hypomagnesemia: Current visit: Yes Status: Resolved Continue to monitor (13) Hypernatremia: Current visit: Yes Status: Resolved Continue to monitor (14) Hypokalemia: Current visit: Yes Status: Acute Continue to monitor (15) Catheter-associated urinary tract infection: Current visit: Yes Status: Acute Catheter was changed 08/11/18. Culture is growing pansensitive Pseudomonas. Continue Zosyn (effectively, Day 3). (16) Tooth pain: Current visit: Yes Status: Acute Patient is already on Zosyn. Continue Tylenol and Magic mouthwash. Not reporting pain today. (17) Discharge planning issues: Current visit: Yes Status: Acute DNR/DNI, s/p PEG Discussed with case management - patient may require a Level 2 review prior to placement. (18) DVT prophylaxis: Current visit: Yes Status: Acute Lovenox (19) Abdominal pain: Current visit: Yes Status: Acute Likely musculoskeletal - however, if pain persists, would obtain ultrasound of the gallbladder. Subjective Interval history since last seen: Christie complains of R-sided abdominal pain. She thinks it might be because she worked with PT today. She has a cough, it's nonproductive. She denies dizziness, chest pain, shortness of breath (but again states she feels like she is not breathing), denies nausea, vomiting. Exam Narrative Exam Narrative: General: initially asleep, but easily arousable; comfortably laying in bed; no tachypnea, no respiratory distress when talking; she is alert oriented x2; HEENT: EOMI, MMM Heart: RRR, no m/r/g Lungs: Diminished breath sounds B GI: abdomen soft; RLQ mass/seroma unchanged; R-sided abdominal pain is reproducible with palpation; no guarding, appears superficial and midabdominal - ?muscle spasm; PEG tube in place Extremities: +1 BLE edema -unchanged; no clubbing/cyanosis Objective Objective Clinical Data: Abnormal lab results 08/13/18 08/13/18 Range/Units 06:30 06:30 RBC 3.44 L (4.00-5.20) m/cumm Hgb 8.6 L (12.0-15.5) g/dL Hct 29.2 L (36.0-46.0) % MCH 25.0 L (27.0-33.0) pg MCHC 29.5 L (32.0-36.0) g/dL RDW 19.5 H (11.7-14.6) % MPV 11.3 H (8.0-11.0) fL Absolute Monocytes 0.83 H (0.11-0.7) k/cumm Potassium 3.1 L (3.5-5.1) mmol/L Carbon Dioxide 33.2 H (21.0-32.0) mmol/L BUN 21 H (7-18) mg/dL Vital Signs Temperature 36.6 C 08/13/18 16:40 Temperature Source Tympanic 08/13/18 16:40 Pulse 91 H 08/13/18 16:40 Pulse Rhythm Regular 08/13/18 16:40 Pulse 94 H 07/30/18 16:43 Respiratory Rate 18 08/13/18 16:40 Respiratory Effort 08/13/18 16:40 Respiratory Depth Shallow 08/13/18 16:40 Respiratory Pattern Normal 08/13/18 16:40 Blood Pressure 129/88 08/13/18 16:40 Blood Pressure Mean 115 07/30/18 16:43 Blood Pressure Position Supine 07/30/18 16:46 Pulse Oximetry 98 08/13/18 16:40 Respiratory End-tidal CO2 34 07/07/18 15:01 Oxygen Delivery Method Room Air 08/13/18 16:40 Oxygen Flow Rate 0 08/13/18 16:40 Fraction of Inspired Oxygen (FIO2) 28 07/16/18 00:30 Pain Level 0 08/13/18 04:30 Comment 08/13/18 04:30 Intake & Output 08/12/18 08/13/18 08/13/18 23:59 11:59 23:59 Intake Total 1740 / 2480 520 / 1450 930 / 1450 Output Total 1050 / 2250 1099 / 2024 92 / 2024 Balance 690 / 230 -580 / -575 5 / -575 Weight 97 kg Intake: IV 570 / 920 130 / 280 150 / 280 Intake, Tube Feeding Amount 1170 / 1560 390 / 1170 780 / 1170 Output: Urine 1050 / 2250 1100 / 2000 900 / 2000 Stool 0 / 0 Output, Residual 0 / 0 0 / 25 25 / 25 Other: Urine Color Yellow Yellow Yellow Straw Urine Appearance Clear Clear Clear Stool Size Large Large Stool Characteristics Soft Liquid Liquid Brown Brown Laboratory Results WBC 8.98 k/cumm (4.4-10.8) 08/13/18 06:30 RBC 3.44 m/cumm (4.00-5.20) L 08/13/18 06:30 Hgb 8.6 g/dL (12.0-15.5) L 08/13/18 06:30 Hct 29.2 % (36.0-46.0) L 08/13/18 06:30 MCV 84.9 fL (80-95) 08/13/18 06:30 MCH 25.0 pg (27.0-33.0) L 08/13/18 06:30 MCHC 29.5 g/dL (32.0-36.0) L 08/13/18 06:30 RDW 19.5 % (11.7-14.6) H 08/13/18 06:30 Plt Count 353 x1000/uL (130-400) 08/13/18 06:30 MPV 11.3 fL (8.0-11.0) H 08/13/18 06:30 Abs Immat Gran (auto) Cancelled 07/13/18 08:05 Immature Gran % 0.3 08/13/18 06:30 Neutrophils % 66.5 08/13/18 06:30 Band Neutrophils % Cancelled 07/13/18 08:05 Lymphocytes % 15.8 08/13/18 06:30 Atypical Lymphs % Cancelled 07/13/18 08:05 Monocytes % 9.2 08/13/18 06:30 Eosinophils % 7.5 08/13/18 06:30 Basophils % 0.7 08/13/18 06:30 Absolute Neutrophils 5.97 k/cumm (1.2-6.7) 08/13/18 06:30 Absolute Lymphocytes 1.42 k/cumm (1.2-3.4) 08/13/18 06:30 Absolute Monocytes 0.83 k/cumm (0.11-0.7) H 08/13/18 06:30 Absolute Eosinophils 0.67 k/cumm (0.0-0.7) 08/13/18 06:30 Absolute Basophils 0.06 k/cumm (0.0-0.2) 08/13/18 06:30 Metamyelocytes Cancelled 07/13/18 08:05 Myelocytes Cancelled 07/13/18 08:05 Promyelocytes Cancelled 07/13/18 08:05 Nucleated RBCs Cancelled 07/13/18 08:05 Differential Comment Rbc morph reviewed 07/26/18 05:47 Other Cell Type Cancelled 07/13/18 08:05 RBC Morphology See below 07/26/18 05:47 Polychromasia Present 07/17/18 06:35 Hypochromasia 1+ 07/26/18 05:47 Poikilocytosis 1+ 07/17/18 06:35 Basophilic Stippling Cancelled 07/13/18 08:05 Anisocytosis 2+ 07/17/18 06:35 Microcytosis 2+ 07/26/18 05:47 Macrocytosis Cancelled 07/13/18 08:05 Spherocytes Cancelled 07/13/18 08:05 Target Cells Cancelled 07/13/18 08:05 Tear Drop Cells Cancelled 07/13/18 08:05 Ovalocytes 2+ 07/26/18 05:47 Stomatocytes Cancelled 07/13/18 08:05 [place] Bodies Cancelled 07/13/18 08:05 Girma Cells Cancelled 07/13/18 08:05 Acanthocytes (Spur) Cancelled 07/13/18 08:05 Schistocytes 1+ 07/26/18 05:47 D-Dimer 1329 ng/mlFEU (<500) H 07/07/18 21:15 Sodium 142 mmol/L (136-145) 08/13/18 06:30 Potassium 3.1 mmol/L (3.5-5.1) L 08/13/18 06:30 Chloride 103 mmol/L (98-107) 08/13/18 06:30 Carbon Dioxide 33.2 mmol/L (21.0-32.0) H 08/13/18 06:30 Anion Gap 5.8 mmol/L (3-11) 08/13/18 06:30 BUN 21 mg/dL (7-18) H 08/13/18 06:30 Creatinine 0.57 mg/dL (0.55-1.02) 08/13/18 06:30 Estimated GFR/1.73 m2 >= 60.00 (mL/min/1.73m2) 08/13/18 06:30 Glucose 93 mg/dL (70-100) 08/13/18 06:30 Lactate 1.0 mmol/L (0.6-1.4) 07/06/18 07:20 Calcium 9.0 mg/dL (8.5-10.1) 08/13/18 06:30 Magnesium 1.8 mg/dL (1.8-2.4) 08/13/18 06:30 Iron 20 ug/dL (50-175) L 07/25/18 16:13 TIBC 235 ug/dL (250-450) L 07/25/18 16:13 Transferrin % Sat 9 % (15-50) L 07/25/18 16:13 Ferritin 35 ng/mL (8-388) 07/25/18 16:13 Total Bilirubin 0.3 mg/dL (0.2-1.0) 07/12/18 05:50 Conjugated Bilirubin 0.10 mg/dL (0.00-0.20) 07/12/18 05:50 AST 24 U/L (15-37) 07/12/18 05:50 ALT 47 U/L (12-78) 07/12/18 05:50 Alkaline Phosphatase 65 U/L (46-116) 07/12/18 05:50 Ammonia < 10 umol/L (11-32) L 07/15/18 10:20 Troponin I 0.02 ng/mL (0.00-0.06) 07/08/18 05:00 NT-Pro-B Natriuret Pep 744 pg/mL (-299) H 07/31/18 19:52 Total Protein 4.6 g/dL (6.4-8.2) L 07/12/18 05:50 Albumin 2.2 g/dL (3.4-5.0) L 07/12/18 05:50 Lipase 252 U/L (73-393) 07/04/18 13:15 Vitamin B12 471 pg/mL (193-986) 07/25/18 16:13 Folate 8.0 ng/mL (8.6-20.0) L 07/25/18 16:13 Procalcitonin <0.10 ng/mL (<or=1.5) 07/08/18 06:24 Calcitonin Cancelled 07/08/18 06:24 TSH 1.09 uIU/mL (0.358-3.74) 07/06/18 07:20 Urine Color Yellow (Yellow) 08/11/18 16:18 Urine Clarity Sl cloudy 08/11/18 16:18 Urine pH 6.5 (5-8) 08/11/18 16:18 Ur Specific [place] 1.015 (1.005-1.025) 08/11/18 16:18 Urine Protein 100 mg/dL (Negative) H 08/11/18 16:18 Urine Ketones Trace mg/dL (Negative) H 08/11/18 16:18 Urine Blood Large (Negative) H 08/11/18 16:18 Urine Nitrite Negative (Negative) 08/11/18 16:18 Urine Bilirubin Negative (Negative) 08/11/18 16:18 Urine Urobilinogen 0.2 EU/dL (Up TO 0.2) 08/11/18 16:18 Ur Leukocyte Esterase Small (Negative) H 08/11/18 16:18 Urine RBC >50 (0-2) H 08/11/18 16:18 Urine WBC 20-50 HPF (0-5) 08/11/18 16:18 Ur Epithelial Cells Few HPF (Negative) 08/11/18 16:18 Urine Crystals Negative HPF (Negative) 08/11/18 16:18 Urine Bacteria Moderate HPF (Negative) 08/11/18 16:18 Urine Casts Negative LPF (Negative) 08/11/18 16:18 Urine Mucus Trace (Negative) 08/11/18 16:18 Urine Other Rare renal (Negative) 08/11/18 11:45 Ur Culture Indicated? Yes 08/11/18 16:18 Urine Glucose Negative mg/dL (Negative) 08/11/18 16:18 Stool Campylobacter PCR See comments 07/06/18 12:45 Stool Salmonella PCR See comments 07/06/18 12:45 Stool Shigella PCR See comments 07/06/18 12:45 Vancomycin Trough 18.9 ug/mL (10.0-20.0) 07/20/18 06:17 Shiga Toxin (PCR) See comments 07/06/18 12:45 Path Cons Comment See comment 07/06/18 07:20 Miscellaneous Test Cancelled 07/08/18 06:24
[2018-08-13] MEDS: Donepezil 5 MG TAB 10 MG UD (21:53)
[2018-08-13] MEDS: OLANZapine 5 MG TAB 10 MG UD (21:53)
[2018-08-14] MEDS: PIPERACILLIN/TAZO 3.375 GM in Normal Saline 50 ML IVPB ×4 (02:45→20:56)
[2018-08-14] MEDS: Normal Saline Flush 10 ML SYR IVP ×4 (02:46→23:33)
[2018-08-14 04:00] VITALS: BP 125/80; PULSE 85; RESP 18; TEMP 37; O2SAT 97
[2018-08-14 07:21] LABS: Abs Immature Grans 0.02 k/cumm (0.0-0.09); Absolute Basophil Count 0.03 k/cumm (0.0-0.2); Absolute Eosinophil Count 0.38 k/cumm (0.0-0.7); Absolute Lymphocyte Count 1.25 k/cumm (1.2-3.4); Absolute Monocyte Count 0.91 k/cumm (0.11-0.7); Absolute Neutrophil Count 6.41 k/cumm (1.2-6.7); Basophils % 0.3; Eosinophils % 4.2; HGB 8.7 g/dL (12.0-15.5); Immature Grans % 0.2; Lymphocytes % 13.9; Mean Corpuscular Hemoglobin 25.4 pg (27.0-33.0); Mean Corpuscular Volume 84.8 fL (80-95); Mean Platelet Volume 11.3 fL (8.0-11.0); Monocytes % 10.1; Neutrophils % 71.3; Platelet Count 362 x1000/uL (130-400); RBC 3.42 m/cumm (4.00-5.20); RBC Distribution Width 19.3 % (11.7-14.6)
[2018-08-14 07:35] VITALS: BP 120/82; PULSE 97; RESP 20; TEMP 37.1; O2SAT 96
[2018-08-14 07:39] LABS: Anion Gap 7.7 mmol/L (3-11); BUN 23 mg/dL (7-18); CO2 33.3 mmol/L (21.0-32.0); CREATININE 0.61 mg/dL (0.55-1.02); Calcium 9.1 mg/dL (8.5-10.1); Chloride 103 mmol/L (98-107); Glucose 98 mg/dL (70-100); Magnesium 1.8 mg/dL (1.8-2.4); Potassium 3.2 mmol/L (3.5-5.1); Sodium 144 mmol/L (136-145)
[2018-08-14] MEDS: Pantoprazole 40 MG VIAL IVP ×2 (09:10→20:56)
[2018-08-14] MEDS: Furosemide 20 MG/2 ML VIAL IVP (09:11)
[2018-08-14] MEDS: Normal Saline Flush 10 ML SYR 20 ML IVP ×2 (09:19→20:55)
[2018-08-14] MEDS: Nystatin POWDER 60 GM JAR TP ×2 (09:27→20:56)
[2018-08-14] MEDS: Acetaminophen Solution 650 MG/20.3 ML CUP NG (09:27)
[2018-08-14] MEDS: Enoxaparin 40 MG/0.4 ML SYR SC (09:27)
[2018-08-14] MEDS: Ferrous Sulfate 44 MG/ML Liquid 325 MG NG ×2 (09:27→20:55)
[2018-08-14] MEDS: Methimazole 5 MG TAB UD (09:28)
[2018-08-14] MEDS: Memantine 5 MG TAB 10 MG UD ×2 (09:28→21:13)
[2018-08-14] MEDS: Folic Acid 1 MG TAB NG (09:28)
[2018-08-14] MEDS: Ascorbic Acid 500 MG TAB NG ×2 (09:28→20:55)
[2018-08-14] MEDS: amLODIPine 5 MG TAB PO (09:28)
[2018-08-14] MEDS: Loperamide 2 MG CAP NG ×2 (09:28→16:47)
[2018-08-14] MEDS: Cyanocobalamin 500 MCG TAB 1000 MCG NG (09:28)
[2018-08-14] MEDS: clonazePAM 1 MG TAB PO ×2 (09:28→23:51)
[2018-08-14] MEDS: POTASSIUM CHLORIDE 20 MEQ/100 ML BAG 50 MEQ IVPB ×2 (10:45→12:51)
[2018-08-14] MEDS: Potassium Chloride Liquid 20 MEQ PKT 40 MEQ NG (10:45)
--- NOTE | 2018-08-14 11:09 | OT.INTREAT ---
Date of service: 08/14/18 Time of Service: 08:00 Occupational Therapy Notes Occupational Therapy Inpatient Treatment Note Date: 08/14/18 PRECAUTIONS: NPO, Fall and Standard precautions SUBJECTIVE: Pt was working with PT when OT arrived. She was agreeable to OT session. OBJECTIVE: PAIN:c/o pain 5/10 in her lower abdomen which nursing was aware of. FUNCTIONAL MOBILITY Sit-stand: CGA Stand-sit: CGA Commode-Chair: CGA, FWW Chair-Commode: CGA, FWW BATHING: Sitting in chair (I) Washing face. DRESSING: Lower Extremity: Max (A) don and doff socks, pt did attempt however was unable to reach past her knees. GROOMING: Standing at sink with standing mobility performed with PT, pt was able to brush her teeth with min-mod vc and vc for standing body mechanics standing up with hand placement on sink for stability. TOILETING: Device: Commode Assist: Max (A)x2 toileting hygiene EATING: NPO ASSESSMENT/PLAN: Progression of ADLs standing at sink next session. Pt had loss of incontinence while performing functional mobility to the commode. Due to this pt required max (A) of 2 for toileting hygiene. She presented with decreased functional activity tolerance standing at sink and required multiple trips to commode throughout OT session. Nursing was made aware of situation. TREATMENT CODES/TIME: [id number], 33 minutes (08:00) [facility]
[2018-08-14 12:03] VITALS: BP 142/95; PULSE 87; RESP 20; TEMP 36.2; O2SAT 98
--- NOTE | 2018-08-14 12:42 | PDOC.CMPRO ---
Care Management Progress Note S/O: Christie continues to work well with PT/OT and is pleasant in interaction. She continues to be closely monitored and remains acute at this time. CM notified Psychiatrist and MD of family concerns. Per Dr. Scott the recommendation will be to increase Ativan to monitor effect, she did report Neuro consult would be appropriate, but first the Ativan dosage adjustment will be trialed. CM will continue to follow. A: 63 yo disabled female admitted for hypotension, aspiration pneumonia now with a PEG tube placement. [facility]: Reported no female bed availability anticipated. [facility]: No beds available-have a wait list [facility]: No female beds available. [facility]. P: SNF coordination continues in anticipation of medical stabilization, Christie remains pleasant in interaction and continues to make good effort working with PT/OT/Speech/Psych/Nutrition and medical staff. SNF placement coordination has been difficult given her dual diagnosis, medical complexity and family choice. CM will continue to provide support ongoing discharge planning and disposition.
--- NOTE | 2018-08-14 13:28 | PT.INPN ---
Date of service: 08/14/18 Time of Service: 07:55 PT Notes Date: 08/14/18 Referring Doctor: Dr. Sigala PT Orders: PT CONSULT: deconditioned, long hospitalization. Not able to ambulate at this time Precautions: fall, standard Treatment Dates: 08/07/18 - 08/14/18 Patient Profile/Admitting Diagnosis: Patient has had a prolonged hospitalization for management of hypotension and schizophrenia. She's participated in PT intervention 1-2x/day for the past 21 days, with a total of 33 sessions. PMHX: cognitive dysfunction; HTN; GERD; schizophrenia; Graves disease; esophageal stricture s/p dilation Social History/Home Situation: Patient lives alone in a single level home. She uses a 4WW at night, and according to family present at time of eval, has been encouarged to use this during the day as well, although with limited compliance. She has a sec accountant who comes in to help with meals, grocery shopping and housework. She has supportive family in the area, who have been present here at the hospital throughout her stay. Equipment Owned/DME: 4WW Subjective: Christie states that she is ready to work with PT. She denies pain. Objective: General Observation: Resting in bed. PEG tube and a Bell catheter. Mental Status: A&Ox3. Patient is very talkative this morning. Pain: denies ROM: Right Upper Extremity: AROM allows shoulder flexion to 150 degrees. Wrist and elbow motion are WNL. Left Upper Extremity: AROM allows shoulder flexion to 150 degrees. Wrist and elbow motion are WNL. Right Lower Extremity: Hip flexion allows 90 degrees functionally. Knee motion 0-120 bilaterally. Ankle motion allows 0 degrees DF only. Left Lower Extremity: Hip flexion allows 90 degrees functionally. Knee motion 0-120 bilaterally. Ankle motion allows 0 degrees DF only. Strength: Right Upper Extremity: Shoulder flexion 4/5. Biceps 4/5. Left Upper Extremity: Shoulder flexion 4/5. Biceps 4/5. Right Lower Extremity: Patient is functionally able to perform SLR without extension lag. Ankle DF is 3/5 bilat. HS 3/5 bilat. Left Lower Extremity: Patient is functionally able to perform SLR without extension lag. Ankle DF is 3/5 bilat. HS 3/5 bilat. Sensation: intact distally Bed Mobility/Transfers: rolling to side: independent supine-sit: independent sit-stand:CGA stand-sit:CGA Gait: Patient is able to ambulate 6' x 2 with 4WW with CGA during today's session. Upon initiation of walking, she loses control of bowels, and is able to safely ambulate and [facility] where she requires max A x 2 for clean up. She demonstrates excellent balance throughout. She additionally demonstrates improved stride length and gait speed during today's session. During previous sessions she's ambulated up to 30' with 4WW and CGA with wheelchair follow. Balance: Static sitting: normal Dynamic sitting normal Static standing fair Dynamic standing: fair Treatment: Today's session consisted of gait and transfer training. Treatment time was interrupted by need for OT intervention and assistance from nursing for toileting, etc, with entirety of PT session spent in gait and transfer training. She declined therex at end of session due to significant fatigue. Assessment: Patient is a 63 year old female referred to physical therapy services with the diagnosis of deconditioned, long hospitalization. Not able to ambulate at this time. Patient has been participating in skilled PT intervention 1-2 times per day for the past 21 days, with continued improvements in mobility and activity tolerance. She requires continue PT intervention to maximize mobility and independence to allow for eventual transition back to assisted living. Due to her continued limitations in mobility, she will require a stay in long term prior to transition back to her assisted living apartment. Goals: Goals X1 week 1. Supine-Sit : supervision ( met) 2. Sit-Supine : supervision (met) 3. Sit-Stand : supervision (progressing toward) 4. Stand-Sit : supervision (progressing toward) 5. Bed-Chair : CG with 4WW (met) 6. Chair-Bed : CG with 4WW(met) 7. Gait : CG with 4WW x 50' (progressing toward) Plan of Care/Treatment Plan: Continue 1-2x/day, 7 days/week x 1 week. Plan of care has been reviewed with the TRAINING AND DEVELOPMENT ASSISTANT providing the service under Physical Therapy direction. Initiate Physical Therapy intervention for strengthening, bed mobility, transfers, gait, stairs, balance training, use of assistive device. DISCHARGE RECOMMENDATIONS:Will require SNF for further rehabilitation once medically stable. TREATMENT CODE/TIME: 7:55-8:10; 8:30-8:40 (25 minutes) ([id number]) Karen Floyd, PT, DPT [facility]
--- NOTE | 2018-08-14 13:36 | INPN_ITS ---
Date of service: 08/14/18 Time of Service: 07:55 PT Notes Date: 08/14/18 Referring Doctor: Dr. Sigala PT Orders: PT CONSULT: deconditioned, long hospitalization. Not able to ambulate at this time Precautions: fall, standard Treatment Dates: 08/07/18 - 08/14/18 Patient Profile/Admitting Diagnosis: Patient has had a prolonged hospitalization for management of hypotension and schizophrenia. She's participated in PT intervention 1-2x/day for the past 21 days, with a total of 33 sessions. PMHX: cognitive dysfunction; HTN; GERD; schizophrenia; Graves disease; esophageal stricture s/p dilation Social History/Home Situation: Patient lives alone in a single level home. She uses a 4WW at night, and according to family present at time of eval, has been encouarged to use this during the day as well, although with limited compliance. She has a nut grader who comes in to help with meals, grocery shopping and housework. She has supportive family in the area, who have been present here at the hospital throughout her stay. Equipment Owned/DME: 4WW Subjective: Christie states that she is ready to work with PT. She denies pain. Objective: General Observation: Resting in bed. PEG tube and a Bell catheter. Mental Status: A&Ox3. Patient is very talkative this morning. Pain: denies ROM: Right Upper Extremity: AROM allows shoulder flexion to 150 degrees. Wrist and elbow motion are WNL. Left Upper Extremity: AROM allows shoulder flexion to 150 degrees. Wrist and elbow motion are WNL. Right Lower Extremity: Hip flexion allows 90 degrees functionally. Knee motion 0-120 bilaterally. Ankle motion allows 0 degrees DF only. Left Lower Extremity: Hip flexion allows 90 degrees functionally. Knee motion 0- 120 bilaterally. Ankle motion allows 0 degrees DF only. Strength: Right Upper Extremity: Shoulder flexion 4/5. Biceps 4/5. Left Upper Extremity: Shoulder flexion 4/5. Biceps 4/5. Right Lower Extremity: Patient is functionally able to perform SLR without extension lag. Ankle DF is 3/5 bilat. HS 3/5 bilat. Left Lower Extremity: Patient is functionally able to perform SLR without extension lag. Ankle DF is 3/5 bilat. HS 3/5 bilat. Sensation: intact distally Bed Mobility/Transfers: rolling to side: independent supine-sit: independent sit-stand:CGA stand-sit:CGA Gait: Patient is able to ambulate 6' x 2 with 4WW with CGA during today's session. Upon initiation of walking, she loses control of bowels, and is able to safely ambulate and [facility], where she requires max A x 2 for clean up. She demonstrates excellent balance throughout. She additionally demonstrates improved stride length and gait speed during today's session. During previous sessions she's ambulated up to 30' with 4WW and CGA with wheelchair follow. Balance: Static sitting: normal Dynamic sitting normal Static standing fair Dynamic standing: fair Treatment: Today's session consisted of gait and transfer training. Treatment time was interrupted by need for OT intervention and assistance from nursing for toileting, etc, with entirety of PT session spent in gait and transfer training. She declined therex at end of session due to significant fatigue. Assessment: Patient is a 63 year old female referred to physical therapy services with the diagnosis of deconditioned, long hospitalization. Not able to ambulate at this time. Patient has been participating in skilled PT intervention 1-2 times per day for the past 21 days, with continued improvements in mobility and activity tolerance. She requires continue PT intervention to maximize mobility and independence to allow for eventual transition back to assisted living. Due to her continued limitations in mobility, she will require a stay in snf prior to transition back to her assisted living apartment. Goals: Goals X1 week 1. Supine-Sit : supervision ( met) 2. Sit-Supine : supervision (met) 3. Sit-Stand : supervision (progressing toward) 4. Stand-Sit : supervision (progressing toward) 5. Bed-Chair : CG with 4WW (met) 6. Chair-Bed : CG with 4WW(met) 7. Gait : CG with 4WW x 50' (progressing toward) Plan of Care/Treatment Plan: Continue 1-2x/day, 7 days/week x 1 week. Plan of care has been reviewed with the RAILROAD CRANE OPERATOR providing the service under Physical Therapy direction. Initiate Physical Therapy intervention for strengthening, bed mobility, transfers, gait, stairs, balance training, use of assistive device. DISCHARGE RECOMMENDATIONS:Will require SNF for further rehabilitation once medically stable. TREATMENT CODE/TIME: 7:55-8:10; 8:30-8:40 (25 minutes) ([id number]) Karen Floyd, PT, DPT [facility]
--- NOTE | 2018-08-14 13:38 | PT.INTREAT ---
Date of service: 08/14/18 Time of Service: 13:38 PT Notes 08/14/18 SUBJECTIVE: Christie stating she does not think she is doing well with her walking. She continues to have discomfort along the right side of her abdomen that comes and goes. This does not increase with gait. OBJECTIVE: Seated in recliner. Explain to pt that she is making great progress with her strength and her mobility and her safety awareness is improving. Pt in agreement to PT treatment. TRANSFERS Sit to stand: CGA Stand to sit: CGA GAIT Device: 4WW Weight bearing: Full Assist: CGA Distance: 25'+30' Deviation: Wheel chair follow. 1 sit rest break. Therex: UE/LE strengthening performed in seated position. UE strengthening performed with resistance band. ASSESSMENT: Tolerating PT well today. Her transfers are improving with less cueing required for reaching for her chair. PLAN: Continue to progress per established POC. Treatment time: 12:00-12:30([id number]) Alice Howard PTA
[2018-08-14] MEDS: LORazepam 2 MG/ML VIAL 1 MG IVP (14:31)
[2018-08-14] MEDS: Furosemide 40 MG/4 ML VIAL IVP (16:46)
--- NOTE | 2018-08-14 16:47 | CMPROGNOTE_ITS ---
Care Management Progress Note S/O: Christie continues to work well with PT/OT and is pleasant in interaction. She continues to be closely monitored and remains acute at this time. CM notified Psychiatrist and MD of family concerns. Per Dr. Scott the recommendation will be to increase Ativan to monitor effect, she did report Neuro consult would be appropriate, but first the Ativan dosage adjustment will be trialed. CM will continue to follow. A: 63 yo disabled female admitted for hypotension, aspiration pneumonia now with a PEG tube placement. [facility]: Reported no female bed availability anticipated. [facility]: No beds available-have a wait list [facility]: No female beds available. [facility]. P: SNF coordination continues in anticipation of medical stabilization, Christie remains pleasant in interaction and continues to make good effort working with PT/OT/Speech/Psych/Nutrition and medical staff. SNF placement coordination has been difficult given her dual diagnosis, medical complexity and family choice. CM will continue to provide support ongoing discharge planning and disposition.
[2018-08-14 17:32] VITALS: BP 127/80; PULSE 91; RESP 20; TEMP 36.9; O2SAT 98
--- NOTE | 2018-08-14 18:58 | PGE_ITS ---
Date of Service Date of service: 08/14/18 Time of Service: 14:40 Assessment and Plan (1) Abdominal pain: Current visit: Yes Status: Acute obtain CT abdomen/pelvis - ?appendicitis (2) Schizophrenia: Current visit: No Status: Chronic with catatonia - based on her reaction to IV ativan today, there is room for increasing klonopin. Increase am dose to 1.5 mg and keep evening dose at 1.0 mg. (3) Altered mental status: Current visit: Yes Status: Resolved Due to catatonia. As above (4) Acute on chronic diastolic CHF (congestive heart failure): Current visit: Yes Status: Acute EF 60-65% per echo in June. Continue decreased free water with tube feeding. Increase lasix. Monitor Cr, Sodium, I/O's, daily weights and respiratory status. (5) Aspiration pneumonia: Current visit: Yes Status: Acute Recurent. Continue zosyn and BID PPI. (6) Dysphagia: Current visit: Yes Status: Acute Multifactorial - both oropharyngeal and esophageal, with at least part of oropharyngeal component thought to be psychogenic/due to being off of psychiatric medications. CT soft tissues of the neck was negative for any abnormality Failed repeat swallow eval. s/p PEG tube - tolerating bolus Tube feeding. If the patient is going to be tube-feeding dependent, then the necessity of outpatient monometry is questionable. She is s/p EGD on this admission with a nonobstructing Schatzki ring. (7) Weakness on right side of face: Current visit: Yes Status: Resolved No evidence for CVA or seizure. Off of anticonvulsants at this time. (8) Esophageal dysmotility: Current visit: Yes Status: Acute As above (9) Hypotension: Current visit: Yes Status: Resolved Initially, hypotension to the point of shock requiring pressors with evidence of end-organ damage with KJ and elevation in Lactate - at this point felt to be due to sepsis/shock due to aspiration pneumonia at the time. Finished hydrocortisone taper, but no actual evidence of adrenal insufficiency on admission. BP's normalized. (10) Bradycardia: Current visit: No Status: Resolved Resolved, was seen in setting of hypotension. Avoid jovan agents. ? Tachy/Justin Syndrome. No longer requiring pressors/chronotropes. (11) KJ (acute kidney injury): Current visit: Yes Status: Resolved Cr remains stable - continue to monitor (12) GERD (gastroesophageal reflux disease): Current visit: Yes Status: Chronic Continue BID PPI. Follow aspiration precautions. (13) Hypomagnesemia: Current visit: Yes Status: Resolved Continue to monitor (14) Hypernatremia: Current visit: Yes Status: Resolved Continue to monitor (15) Hypokalemia: Current visit: Yes Status: Acute Continue to monitor (16) Catheter-associated urinary tract infection: Current visit: Yes Status: Acute Catheter was changed 08/11/18 and removed today. Culture is growing pansensitive Pseudomonas. Continue Zosyn (effectively, Day 09/28). (17) Tooth pain: Current visit: Yes Status: Acute Patient is already on Zosyn. Continue Tylenol and Magic mouthwash. Not reporting pain today. (18) Discharge planning issues: Current visit: Yes Status: Acute DNR/DNI, s/p PEG Discussed with case management - patient may require a Level 2 review prior to placement. (19) DVT prophylaxis: Current visit: Yes Status: Acute Lovenox Subjective Interval history since last seen: Continues to report abdominal pain, but now she states is in her RLQ. She denies dizziness, chest pain, shortness of breath, nausea, vomiting. I have received a message from case management that the family verbalized to them that they think the patient's left eye is drifting. This is not appreciated by the medical staff, but her speech really is more slow today. I discussed the case with Dr Huang, who recommends trialing one dose of IV ativan to see if it will make Christie more interactive. In fact, it did do that. Based on this, we think that Christie continues to have catatonia to some extent and would benefit from increase in her morning dose of clonazepam to 1.5 mg. Exam Narrative Exam Narrative: General: awake, appears to have shorter answers today, but still interactive and quite strong on her feet when she tries to get up; no tachypnea, no respiratory distress when talking; she is alert oriented x2; HEENT: EOMI, MMM Heart: RRR, no m/r/g Lungs: Diminished breath sounds B GI: abdomen soft; RLQ mass/seroma unchanged; RLQ pain; PEG tube in place Extremities: +1 BLE edema -unchanged; no clubbing/cyanosis Objective Objective Clinical Data: Abnormal lab results 02/21/19 02/21/19 Range/Units 06:20 06:20 RBC 3.42 L (4.00-5.20) m/cumm Hgb 8.7 L (12.0-15.5) g/dL Hct 29.0 L (36.0-46.0) % MCH 25.4 L (27.0-33.0) pg MCHC 30.0 L (32.0-36.0) g/dL RDW 19.3 H (11.7-14.6) % MPV 11.3 H (8.0-11.0) fL Absolute Monocytes 0.91 H (0.11-0.7) k/cumm Potassium 3.2 L (3.5-5.1) mmol/L Carbon Dioxide 33.3 H (21.0-32.0) mmol/L BUN 23 H (7-18) mg/dL Vital Signs Temperature 36.9 C 08/14/18 17:32 Temperature Source Tympanic 08/14/18 17:32 Pulse 91 H 08/14/18 17:32 Pulse Rhythm Regular 08/14/18 16:00 Pulse 94 H 07/30/18 16:43 Respiratory Rate 20 08/14/18 17:32 Respiratory Effort Non-Labored 08/14/18 16:00 Respiratory Depth Normal 08/14/18 16:00 Respiratory Pattern Normal 08/14/18 16:00 Blood Pressure 127/80 08/14/18 17:32 Blood Pressure Mean 115 07/30/18 16:43 Blood Pressure Position Supine 07/30/18 16:46 Pulse Oximetry 98 08/14/18 17:32 Respiratory End-tidal CO2 34 07/07/18 15:01 Oxygen Delivery Method Room Air 08/14/18 17:32 Oxygen Flow Rate 0 08/14/18 17:32 Fraction of Inspired Oxygen (FIO2) 28 07/16/18 00:30 Pain Level 5 08/14/18 09:27 Comment 08/13/18 04:30 Intake & Output 08/13/18 08/14/18 08/14/18 23:59 11:59 23:59 Intake Total 1469 / 1989 440 / 980 540 / 980 Output Total 2285 / 3385 950 / 1170 220 / 1170 Balance -815 / -1395 -510 / -190 320 / -190 Weight 97.2 kg Intake: IV 300 / 430 50 / 200 150 / 200 Intake, Tube Feeding Amount 1170 / 1560 390 / 780 390 / 780 Output: Urine 2250 / 3350 950 / 1150 200 / 1150 Stool 0 / 0 Output, Residual 35 / 35 0 / 20 20 Other: Urine Color Pale Yellow Yellow Yellow Urine Appearance Clear Cloudy Cloudy Comment incontinent of moderate amt of urine Stool Size Moderate Stool Characteristics Liquid Brown Voiding Methods Diaper Incontinent Laboratory Results WBC 9.00 k/cumm (4.4-10.8) 08/14/18 06:20 RBC 3.42 m/cumm (4.00-5.20) L 08/14/18 06:20 Hgb 8.7 g/dL (12.0-15.5) L 08/14/18 06:20 Hct 29.0 % (36.0-46.0) L 08/14/18 06:20 MCV 84.8 fL (80-95) 08/14/18 06:20 MCH 25.4 pg (27.0-33.0) L 08/14/18 06:20 MCHC 30.0 g/dL (32.0-36.0) L 08/14/18 06:20 RDW 19.3 % (11.7-14.6) H 08/14/18 06:20 Plt Count 362 x1000/uL (130-400) 08/14/18 06:20 MPV 11.3 fL (8.0-11.0) H 08/14/18 06:20 Abs Immat Gran (auto) Cancelled 07/13/18 08:05 Immature Gran % 0.2 08/14/18 06:20 Neutrophils % 71.3 08/14/18 06:20 Band Neutrophils % Cancelled 07/13/18 08:05 Lymphocytes % 13.9 08/14/18 06:20 Atypical Lymphs % Cancelled 07/13/18 08:05 Monocytes % 10.1 08/14/18 06:20 Eosinophils % 4.2 08/14/18 06:20 Basophils % 0.3 08/14/18 06:20 Absolute Neutrophils 6.41 k/cumm (1.2-6.7) 08/14/18 06:20 Absolute Lymphocytes 1.25 k/cumm (1.2-3.4) 08/14/18 06:20 Absolute Monocytes 0.91 k/cumm (0.11-0.7) H 08/14/18 06:20 Absolute Eosinophils 0.38 k/cumm (0.0-0.7) 08/14/18 06:20 Absolute Basophils 0.03 k/cumm (0.0-0.2) 08/14/18 06:20 Metamyelocytes Cancelled 07/13/18 08:05 Myelocytes Cancelled 07/13/18 08:05 Promyelocytes Cancelled 07/13/18 08:05 Nucleated RBCs Cancelled 07/13/18 08:05 Differential Comment Rbc morph reviewed 07/26/18 05:47 Other Cell Type Cancelled 07/13/18 08:05 RBC Morphology See below 07/26/18 05:47 Polychromasia Present 07/17/18 06:35 Hypochromasia 1+ 07/26/18 05:47 Poikilocytosis 1+ 07/17/18 06:35 Basophilic Stippling Cancelled 07/13/18 08:05 Anisocytosis 2+ 07/17/18 06:35 Microcytosis 2+ 07/26/18 05:47 Macrocytosis Cancelled 07/13/18 08:05 Spherocytes Cancelled 07/13/18 08:05 Target Cells Cancelled 07/13/18 08:05 Tear Drop Cells Cancelled 07/13/18 08:05 Ovalocytes 2+ 07/26/18 05:47 Stomatocytes Cancelled 07/13/18 08:05 [place] Bodies Cancelled 07/13/18 08:05 Leoti Cells Cancelled 07/13/18 08:05 Acanthocytes (Spur) Cancelled 07/13/18 08:05 Schistocytes 1+ 07/26/18 05:47 D-Dimer 1329 ng/mlFEU (<500) H 07/07/18 21:15 Sodium 144 mmol/L (136-145) 08/14/18 06:20 Potassium 3.2 mmol/L (3.5-5.1) L 08/14/18 06:20 Chloride 103 mmol/L (98-107) 08/14/18 06:20 Carbon Dioxide 33.3 mmol/L (21.0-32.0) H 08/14/18 06:20 Anion Gap 7.7 mmol/L (3-11) 08/14/18 06:20 BUN 23 mg/dL (7-18) H 08/14/18 06:20 Creatinine 0.61 mg/dL (0.55-1.02) 08/14/18 06:20 Estimated GFR/1.73 m2 >= 60.00 (mL/min/1.73m2) 08/14/18 06:20 Glucose 98 mg/dL (70-100) 08/14/18 06:20 Lactate 1.0 mmol/L (0.6-1.4) 07/06/18 07:20 Calcium 9.1 mg/dL (8.5-10.1) 08/14/18 06:20 Magnesium 1.8 mg/dL (1.8-2.4) 08/14/18 06:20 Iron 20 ug/dL (50-175) L 07/25/18 16:13 TIBC 235 ug/dL (250-450) L 07/25/18 16:13 Transferrin % Sat 9 % (15-50) L 07/25/18 16:13 Ferritin 35 ng/mL (8-388) 07/25/18 16:13 Total Bilirubin 0.3 mg/dL (0.2-1.0) 07/12/18 05:50 Conjugated Bilirubin 0.10 mg/dL (0.00-0.20) 07/12/18 05:50 AST 24 U/L (15-37) 07/12/18 05:50 ALT 47 U/L (12-78) 07/12/18 05:50 Alkaline Phosphatase 65 U/L (46-116) 07/12/18 05:50 Ammonia < 10 umol/L (11-32) L 07/15/18 10:20 Troponin I 0.02 ng/mL (0.00-0.06) 07/08/18 05:00 NT-Pro-B Natriuret Pep 744 pg/mL (-299) H 07/31/18 19:52 Total Protein 4.6 g/dL (6.4-8.2) L 07/12/18 05:50 Albumin 2.2 g/dL (3.4-5.0) L 07/12/18 05:50 Lipase 252 U/L (73-393) 07/04/18 13:15 Vitamin B12 471 pg/mL (193-986) 07/25/18 16:13 Folate 8.0 ng/mL (8.6-20.0) L 07/25/18 16:13 Procalcitonin <0.10 ng/mL (<or=1.5) 07/08/18 06:24 Calcitonin Cancelled 07/08/18 06:24 TSH 1.09 uIU/mL (0.358-3.74) 07/06/18 07:20 Urine Color Yellow (Yellow) 08/11/18 16:18 Urine Clarity Sl cloudy 08/11/18 16:18 Urine pH 6.5 (5-8) 08/11/18 16:18 Ur Specific [place] 1.015 (1.005-1.025) 08/11/18 16:18 Urine Protein 100 mg/dL (Negative) H 08/11/18 16:18 Urine Ketones Trace mg/dL (Negative) H 08/11/18 16:18 Urine Blood Large (Negative) H 08/11/18 16:18 Urine Nitrite Negative (Negative) 08/11/18 16:18 Urine Bilirubin Negative (Negative) 08/11/18 16:18 Urine Urobilinogen 0.2 EU/dL (Up TO 0.2) 08/11/18 16:18 Ur Leukocyte Esterase Small (Negative) H 08/11/18 16:18 Urine RBC >50 (0-2) H 08/11/18 16:18 Urine WBC 20-50 HPF (0-5) 08/11/18 16:18 Ur Epithelial Cells Few HPF (Negative) 08/11/18 16:18 Urine Crystals Negative HPF (Negative) 08/11/18 16:18 Urine Bacteria Moderate HPF (Negative) 08/11/18 16:18 Urine Casts Negative LPF (Negative) 08/11/18 16:18 Urine Mucus Trace (Negative) 08/11/18 16:18 Urine Other Rare renal (Negative) 08/11/18 11:45 Ur Culture Indicated? Yes 08/11/18 16:18 Urine Glucose Negative mg/dL (Negative) 08/11/18 16:18 Stool Campylobacter PCR See comments 07/06/18 12:45 Stool Salmonella PCR See comments 07/06/18 12:45 Stool Shigella PCR See comments 07/06/18 12:45 Vancomycin Trough 18.9 ug/mL (10.0-20.0) 07/20/18 06:17 Shiga Toxin (PCR) See comments 07/06/18 12:45 Path Cons Comment See comment 07/06/18 07:20 Miscellaneous Test Cancelled 07/08/18 06:24 CT abdomen/pelvis: ordered, results pending
--- NOTE | 2018-08-14 19:00 | DI.CT_ITS ---
SYMPTOM/DIAGNOSIS: RLQ PAIN ABDOMEN AND PELVIC CT: CT examination of the abdomen and pelvis was performed with a bolus infusion of 100 cc's of Omnipaque 350. There is significant motion artifact on this study. Lung bases appear grossly clear. No free intraperitoneal fluid is seen. There is a 12 cm. in diameter fluid attenuation anterior abdominal wall mass, fluid filled umbilical hernia versus cyst. Please correlate clinically and with any previous imaging studies. Neoplastic disease not absolutely excluded but there is nothing specific to suggest infectious or neoplastic cause of this finding. The liver and spleen are grossly unremarkable in appearance although examination is limited due to motion artifact. Pancreas poorly visualized but grossly unremarkable. Abdominal aorta is of normal diameter and no major vascular abnormality is seen. Limited visualization of adrenals and kidneys shows no specific abnormality. Appendix is normal. There appears to be wall thickening of the cecum and ascending colon and portions of the transverse colon raising the possibility of colitis. No evidence of obstruction. SOCIAL DIRECTOR structures grossly intact for a postmenopausal patient. CONCLUSION: 1. Findings raising the possibility of colitis of the ascending colon. 2. Low attenuation mass anterior abdominal wall, please correlate clinically. Probably benign finding but inflammatory or neoplastic disease not absolutely excluded.
--- NOTE | 2018-08-14 19:48 | DI.VRAD_ITS ---
EXAM: CT Abdomen and Pelvis With Contrast EXAM DATE/TIME: 08/14/2018 4:11 PM CLINICAL HISTORY: 63 years old, female; Signs and symptoms; Other: Rlq pain TECHNIQUE: Axial computed tomography images of the abdomen and pelvis with intravenous contrast. All CT scans at this facility use at least one of these dose optimization techniques: automated exposure control; mA and/or kV adjustment per patient size (includes targeted exams where dose is matched to clinical indication); or iterative reconstruction. Coronal and sagittal reformatted images were created and reviewed. CONTRAST: Contrast Material: 100 ml of Omnipaque 350; Contrast Route: IV COMPARISON: CT Abdomen^ROUTINE ABDOMEN PELVIS WITHOUT (Adult) 07/04/2018 3:20 PM FINDINGS: Limitations: Study is mildly limited due to motion artifact. Lower thorax: No acute findings. ABDOMEN: Liver: Normal. No mass. Gallbladder and bile ducts: Visualized gallbladder appears unremarkable, however evaluation is very limited due to motion artifact. No biliary ductal dilation grossly noted. Pancreas: Visualized pancreas appears unremarkable although evaluation is limited. Spleen: Normal. No splenomegaly. Adrenals: There is question of a nonspecific 1.4 cm left adrenal nodule, however difficult to ascertain due to significant motion artifact at this level. Right adrenal gland appears grossly unremarkable. Kidneys and ureters: Extrarenal pelvises are noted. No acute findings of the kidneys otherwise, which are blurred by motion. Stomach and bowel: Suggestion of wall thickening to the cecum and ascending colon. No bowel obstruction. No other areas of segmental bowel wall thickening. Diffuse colonic diverticulosis is present. Appendix: No evidence of appendicitis. PELVIS: Bladder: Unremarkable as visualized. Reproductive: Unremarkable as visualized. ABDOMEN and PELVIS: Intraperitoneal space: Normal. No free air. No significant fluid collection. Bones/joints: No acute skeletal abnormalities. Soft tissues: There is a 10.4 cm x 12 cm x 11.4 cm fluid attenuation collection in the anterior abdominal wall subcutaneous tissues. A do not see a clear communication with the intra-abdominal cavity or peritoneum. No inflammatory imaging characteristics or intraluminal gas noted to this collection. Vasculature: The vasculature demonstrates diffuse mild atherosclerotic calcification. Lymph nodes: Normal. No enlarged lymph nodes. IMPRESSION: 1. Findings concerning for acute colitis involving predominantly the ascending colon and cecum, however evaluation is limited due to significant motion artifact. 2. Large subcutaneous fluid collection in the anterior abdominal wall measuring up to 12 cm without inflammatory features. Possible differential diagnoses includes an epidermal inclusion cyst versus a pilar cyst. Although no direct connection to the anterior abdominal wall is confidently visualized in this examination, a fluid filled umbilical hernia should also be taking into consideration. 3. Other incidental findings as detailed above. Dictated and Authenticated by: Chriss Serra MD. Ordering:SHEILA Robb MD
[2018-08-14] MEDS: Donepezil 5 MG TAB 10 MG UD (23:51)
[2018-08-14] MEDS: OLANZapine 5 MG TAB 10 MG UD (23:51)
[2018-08-15 00:08] VITALS: BP 115/78; PULSE 83; RESP 18; TEMP 36.3; O2SAT 97
[2018-08-15] MEDS: Normal Saline Flush 10 ML SYR IVP ×2 (02:33→20:01)
[2018-08-15] MEDS: PIPERACILLIN/TAZO 3.375 GM in Normal Saline 50 ML IVPB ×4 (02:34→19:56)
[2018-08-15 04:23] VITALS: BP 118/79; PULSE 87; RESP 20; TEMP 36.5; O2SAT 96
[2018-08-15 07:14] LABS: Abs Immature Grans 0.02 k/cumm (0.0-0.09); Absolute Basophil Count 0.05 k/cumm (0.0-0.2); Absolute Lymphocyte Count 1.91 k/cumm (1.2-3.4); Absolute Monocyte Count 0.93 k/cumm (0.11-0.7); Absolute Neutrophil Count 5.32 k/cumm (1.2-6.7); Basophils % 0.6; Eosinophils % 5.7; HGB 8.7 g/dL (12.0-15.5); Immature Grans % 0.2; Lymphocytes % 21.9; Mean Corpuscular Hemoglobin 24.6 pg (27.0-33.0); Mean Platelet Volume 11.1 fL (8.0-11.0); Monocytes % 10.7; Neutrophils % 60.9; Platelet Count 372 x1000/uL (130-400); RBC 3.53 m/cumm (4.00-5.20); RBC Distribution Width 19.4 % (11.7-14.6); White Blood Cell Count 8.73 k/cumm (4.4-10.8)
[2018-08-15 07:33] LABS: Anion Gap 5.4 mmol/L (3-11); BUN 26 mg/dL (7-18); CO2 34.6 mmol/L (21.0-32.0); CREATININE 0.67 mg/dL (0.55-1.02); Calcium 8.6 mg/dL (8.5-10.1); Chloride 103 mmol/L (98-107); Glucose 75 mg/dL (70-100); Magnesium 1.8 mg/dL (1.8-2.4); Potassium 3.4 mmol/L (3.5-5.1); Sodium 143 mmol/L (136-145)
[2018-08-15 08:21] VITALS: BP 133/90; PULSE 100; RESP 20; TEMP 36.7; O2SAT 96
[2018-08-15] MEDS: Ascorbic Acid 500 MG TAB NG ×2 (08:55→20:01)
[2018-08-15] MEDS: clonazePAM 1 MG TAB 1.5 MG PO (08:55)
[2018-08-15] MEDS: Memantine 5 MG TAB 10 MG UD ×2 (08:56→20:01)
[2018-08-15] MEDS: amLODIPine 5 MG TAB PO (08:57)
[2018-08-15] MEDS: Cyanocobalamin 500 MCG TAB 1000 MCG NG (08:57)
[2018-08-15] MEDS: Methimazole 5 MG TAB 10 MG UD (08:57)
[2018-08-15] MEDS: Potassium Chloride Liquid 20 MEQ PKT 40 MEQ NG (08:58)
[2018-08-15] MEDS: Folic Acid 1 MG TAB NG (08:58)
[2018-08-15] MEDS: MetroNIDAZOLE 500 MG/100 ML BAG 100 MG IVPB ×3 (08:59→23:43)
[2018-08-15] MEDS: Furosemide 40 MG/4 ML VIAL IVP ×2 (08:59→15:59)
[2018-08-15] MEDS: Pantoprazole 40 MG VIAL IVP ×2 (08:59→20:01)
[2018-08-15] MEDS: Enoxaparin 40 MG/0.4 ML SYR SC (08:59)
[2018-08-15] MEDS: Normal Saline Flush 10 ML SYR 20 ML IVP (08:59)
[2018-08-15] MEDS: Ferrous Sulfate 44 MG/ML Liquid 325 MG NG ×2 (09:45→20:01)
--- NOTE | 2018-08-15 10:10 | OT.INTREAT ---
Date of service: 08/15/18 Time of Service: 08:10 Occupational Therapy Notes Occupational Therapy Inpatient Treatment Note Date: 08/15/18 PRECAUTIONS: Fall, contact precautions SUBJECTIVE: Pt was sitting in chair when OT arrived. She is agreeable to OT session. OBJECTIVE: PAIN:c/o pain in abdomen which pt reports is the same from last session. Nursing is aware of this. FUNCTIONAL MOBILITY Sit-stand: CGA, 4WW Stand-sit: CGA 4WW BATHING: Performed prior to OT session with nursing. DRESSING: Performed prior to OT session with nursing. GROOMING: Standing at sink with CGA and min vc pt was able to brush her teeth. VC for body positioning in the standing position. Pt was able to perform her hair brushing with min vc standing at sink as well with 4WW. ASSESSMENT/PLAN: Pt had her campbell removed and was incontinent prior to OT session so bathing and dressing was performed prior to OT arrival. She demonstrated increased functional activity tolerance and increased (I) with standing at the sink. Pt would benefit from continued skilled OT intervention for progression of functional activity tolerance, increased (I) in ADLs and use of sock aid in the sitting position in the chair for donning (B) socks. TREATMENT CODES/TIME: 08:10, 13 minutes (08:10) ABHAY Lyons/[facility]
--- NOTE | 2018-08-15 10:14 | OTTR_ITS ---
Date of service: 08/15/18 Time of Service: 08:10 Occupational Therapy Notes Occupational Therapy Inpatient Treatment Note Date: 08/15/18 PRECAUTIONS: Fall, contact precautions SUBJECTIVE: Pt was sitting in chair when OT arrived. She is agreeable to OT session. OBJECTIVE: PAIN:c/o pain in abdomen which pt reports is the same from last session. Nursing is aware of this. FUNCTIONAL MOBILITY Sit-stand: CGA, 4WW Stand-sit: CGA 4WW BATHING: Performed prior to OT session with nursing. DRESSING: Performed prior to OT session with nursing. GROOMING: Standing at sink with CGA and min vc pt was able to brush her teeth. VC for body positioning in the standing position. Pt was able to perform her melissa r brushing with min vc standing at sink as well with 4WW. ASSESSMENT/PLAN: Pt had her campbell removed and was incontinent prior to OT session so bathing and dressing was performed prior to OT arrival. She demonstrated increased functional activity tolerance and increased (I) with standing at the sink. Pt would benefit from continued skilled OT intervention for progression of functional activity tolerance, increased (I) in ADLs and use of sock aid in the sitting position in the chair for donning (B) socks. TREATMENT CODES/TIME: 08:10, 13 minutes (08:10) Ashtyn Alvarez OTR/[facility]
[2018-08-15] MEDS: Nystatin POWDER 60 GM JAR TP ×2 (10:20→20:04)
[2018-08-15] MEDS: POTASSIUM CHLORIDE 20 MEQ/100 ML BAG 50 MEQ IVPB ×2 (11:21→13:03)
--- NOTE | 2018-08-15 11:26 | PT.INTREAT ---
Date of service: 08/15/18 Time of Service: 11:26 PT Notes 08/15/18 SUBJECTIVE: hCristie agreeable to PT treatment. She notes she slept well last night. OBJECTIVE: Pt seated in recliner upon entering room. TRANSFERS Sit to stand: SBA Stand to sit: SBA GAIT Device: 4WW Weight bearing: Full Assist: CGA Distance: 10'x2 THEREX: Perform sustained standing x approx. 4 minutes with times being unsupported. She performs seated and standing UE/LE strengthening exercises as noted on flow sheet with increases as noted. See flow sheet for specifics. ASSESSMENT: Pt able to tolerate increase in her exercises with PT this morning with good tolerance. Her transfers are becoming quite safe and she is performing these with SBA only. She will continue to benefit from progressive gait training to increase strength and independence. PLAN: Continue per established POC. Treatment time: Session 1: 30 minutes [id number], [id number] Alice Howard, SUPERINTENDENT JOB
--- NOTE | 2018-08-15 11:31 | PTTR_ITS ---
Date of service: 08/15/18 Time of Service: 11:26 PT Notes 08/15/18 SUBJECTIVE: Christie agreeable to PT treatment. She notes she slept well last night. OBJECTIVE: Pt seated in recliner upon entering room. TRANSFERS Sit to stand: SBA Stand to sit: SBA GAIT Device: 4WW Weight bearing: Full Assist: CGA Distance: 10'x2 THEREX: Perform sustained standing x approx. 4 minutes with times being unsupported. She performs seated and standing UE/LE strengthening exercises as noted on flow sheet with increases as noted. See flow sheet for specifics. ASSESSMENT: Pt able to tolerate increase in her exercises with PT this morning with good tolerance. Her transfers are becoming quite safe and she is performing these with SBA only. She will continue to benefit from progressive gait training to increase strength and independence. PLAN: Continue per established POC. Treatment time: Session 1: 30 minutes [id number], [id number] Alice Howard, RESEARCH LABORATORY SPECIALIST
[2018-08-15 12:00] VITALS: BP 128/86; PULSE 94; RESP 20; TEMP 36.5; O2SAT 94
--- NOTE | 2018-08-15 14:38 | PT.INTREAT ---
Date of service: 08/15/18 Time of Service: 14:38 PT Notes 08/15/18 SUBJECTIVE: Christie stating her legs are a little tired. Agreeable to PT treatment. OBJECTIVE: Seated in recliner. Agreeable to PT treatment. TRANSFERS Sit to stand: SBA Stand to sit: SBA GAIT Device: 4WW Weight bearing: Full Assist: CGA Distance: 10'x2 Deviation: Pt ambulates in room today until precautions are lifted. Therex: Seated and standing UE/LE strengthening exercises as noted on her flow sheet. Utilizing green thera band for increased resistance. See flow sheet for specifics. ASSESSMENT: Tolerating PT well making slow gains in her strength and mobility. She would benefit from continued strengthening to improve gait distance and independence. PLAN: Continue current POC. Session #2: 25 minutes [id number] Alice Howard PTA
--- NOTE | 2018-08-15 14:46 | PTTR_ITS ---
Date of service: 08/15/18 Time of Service: 14:38 PT Notes 08/15/18 SUBJECTIVE: Christie stating her legs are a little tired. Agreeable to PT treatment. OBJECTIVE: Seated in recliner. Agreeable to PT treatment. TRANSFERS Sit to stand: SBA Stand to sit: SBA GAIT Device: 4WW Weight bearing: Full Assist: CGA Distance: 10'x2 Deviation: Pt ambulates in room today until precautions are lifted. Therex: Seated and standing UE/LE strengthening exercises as noted on her flow sheet. Utilizing green thera band for increased resistance. See flow sheet for specifics. ASSESSMENT: Tolerating PT well making slow gains in her strength and mobility. She would benefit from continued strengthening to improve gait distance and independence. PLAN: Continue current POC. Session #2: 25 minutes [id number] Alice Howard PTA
[2018-08-15 16:05] VITALS: BP 128/86; PULSE 95; RESP 19; TEMP 37.5; O2SAT 98
[2018-08-15] MEDS: Acetaminophen Solution 650 MG/20.3 ML CUP NG (16:58)
--- NOTE | 2018-08-15 17:10 | PDOC.CMPRO ---
Care Management Progress Note S/O: Christie continues to work well with PT/OT and is pleasant in interaction. She continues to be closely monitored and remains acute at this time; per MD there is increased concern for CDIFF and new finding of colitis now being treated with antibiotics and now on precautions. Cheryle met with Rubia of the [facility] today, and the meeting went well. Netta came for a visit and reported she is going on Vacation for a week tomorrow. She also reported Tiny had surgery on her broken wrist today, but would likely come visit as well as Christie's brother while Netta is gone. CM will continue to follow. A: 63 yo disabled female admitted for hypotension, aspiration pneumonia now with a PEG tube placement. [facility]: Reported no female bed availability anticipated. [facility]: No beds available-have a wait list [facility]: No female beds available. [facility]-under review [facility]-Under review-Rubia of Admissions came to visit Christie today and will continue to review with staff. P: SNF coordination continues in anticipation of medical stabilization, Christie remains pleasant in interaction and continues to make good effort working with PT/OT/Speech/Psych/Nutrition and medical staff. SNF placement coordination has been difficult given her dual diagnosis, medical complexity and family choice. CM will continue to provide support ongoing discharge planning and disposition.
[2018-08-15 19:55] VITALS: BP 151/96; PULSE 86; RESP 19; TEMP 36.8; O2SAT 98
--- NOTE | 2018-08-15 20:26 | PGE_ITS ---
Date of Service Date of service: 08/15/18 Time of Service: 14:15 Assessment and Plan (1) Acute colitis: Current visit: Yes Status: Acute Given the multiple courses of antibiotics, the most likely etiology is C. diff. Christie was started on IV metronidazole and I added vancomycin per tube as well as probiotics. Loperamide was d/c'ed. Await results of C.Diff PCR/clint. (2) Abdominal pain: Current visit: Yes Status: Resolved Most likely due to above. Resolved. (3) Schizophrenia: Current visit: No Status: Chronic with catatonia - tolerating increased am dose of klonopin (1.5 mg) and keep evening dose at 1.0 mg. (4) Altered mental status: Current visit: Yes Status: Resolved Due to catatonia. As above (5) Acute on chronic diastolic CHF (congestive heart failure): Current visit: Yes Status: Acute EF 60-65% per echo in June. Continue decreased free water with tube feeding. Continue BID lasix. Monitor Cr, Sodium, I/O's, daily weights and respiratory status. (6) Aspiration pneumonia: Current visit: Yes Status: Acute Recurent, but likely resolved by now. D/c IV zosyn as soon as we have confirmed clearance of the UTI. She no longer needs it for pneumonia coverage. Continue BID PPI. (7) Dysphagia: Current visit: Yes Status: Acute Multifactorial - both oropharyngeal and esophageal, with at least part of oropharyngeal component thought to be psychogenic/due to being off of psychiatric medications. CT soft tissues of the neck was negative for any abnormality Failed repeat swallow eval. s/p PEG tube - tolerating bolus Tube feeding. If the patient is going to be tube-feeding dependent, then the necessity of outpatient monometry is questionable. She is s/p EGD on this admission with a nonobstructing Schatzki ring. (8) Weakness on right side of face: Current visit: Yes Status: Resolved No evidence for CVA or seizure. Off of anticonvulsants at this time. (9) Esophageal dysmotility: Current visit: Yes Status: Acute As above (10) Hypotension: Current visit: Yes Status: Resolved Initially, hypotension to the point of shock requiring pressors with evidence of end-organ damage with KJ and elevation in Lactate - at this point felt to be due to sepsis/shock due to aspiration pneumonia at the time. Finished hydrocortisone taper, but no actual evidence of adrenal insufficiency on admission. BP's normalized. (11) Bradycardia: Current visit: No Status: Resolved Resolved, was seen in setting of hypotension. Avoid jovan agents. ? Tachy/Justin Syndrome. No longer requiring pressors/chronotropes. (12) KJ (acute kidney injury): Current visit: Yes Status: Resolved Cr remains stable - continue to monitor (13) GERD (gastroesophageal reflux disease): Current visit: Yes Status: Chronic Continue BID PPI. Follow aspiration precautions. (14) Hypomagnesemia: Current visit: Yes Status: Resolved Continue to monitor (15) Hypernatremia: Current visit: Yes Status: Resolved Continue to monitor (16) Hypokalemia: Current visit: Yes Status: Acute Continue to monitor (17) Catheter-associated urinary tract infection: Current visit: Yes Status: Acute Catheter was changed 08/11/18 and removed 08/14/18. Culture is growing pansensitive Pseudomonas. Continue Zosyn (effectively, Day 10/28), unless we can document that the urine is no longer infected sooner. Repeat UA ordered. (18) Tooth pain: Current visit: Yes Status: Resolved Resolved. Continue Tylenol and Magic mouthwash. Not reporting pain today. (19) Discharge planning issues: Current visit: Yes Status: Acute DNR/DNI, s/p PEG patient may require a Level 2 review prior to placement. (20) DVT prophylaxis: Current visit: Yes Status: Acute Lovenox Subjective Interval history since last seen: Christie states she no longer has abdominal pain. She denies dizziness, chest pain, shortness of breath, nausea, vomiting. Per her sister, she is no longer seeing the delay in responses and the L-eye deviation like she saw yesterday. Apparently, Christie gets the L eye gaze deviation as part of her migraines for many years. Exam Narrative Exam Narrative: General: awake, appears to be more conversant today, asking questions about the campbell catheter removal, no tachypnea, no respiratory distress when talking; she is alert oriented x2; HEENT: EOMI, MMM Heart: RRR, no m/r/g Lungs: Diminished breath sounds B GI: abdomen soft; RLQ mass/seroma unchanged; RLQ pain; PEG tube in place Extremities: +1 BLE edema - unchanged; no clubbing/cyanosis Objective Objective Clinical Data: Abnormal lab results 08/15/18 08/15/18 Range/Units 06:40 06:40 RBC 3.53 L (4.00-5.20) m/cumm Hgb 8.7 L (12.0-15.5) g/dL Hct 30.0 L (36.0-46.0) % MCH 24.6 L (27.0-33.0) pg MCHC 29.0 L (32.0-36.0) g/dL RDW 19.4 H (11.7-14.6) % MPV 11.1 H (8.0-11.0) fL Absolute Monocytes 0.93 H (0.11-0.7) k/cumm Potassium 3.4 L (3.5-5.1) mmol/L Carbon Dioxide 34.6 H (21.0-32.0) mmol/L BUN 26 H (7-18) mg/dL Vital Signs Temperature 36.8 C 08/15/18 19:55 Temperature Source Tympanic 08/15/18 19:55 Pulse 86 08/15/18 19:55 Pulse Rhythm Regular 08/15/18 08:14 Pulse 94 H 07/30/18 16:43 Respiratory Rate 19 08/15/18 19:55 Respiratory Effort Non-Labored 08/15/18 08:14 Respiratory Depth Normal 08/15/18 08:14 Respiratory Pattern Normal 08/15/18 08:14 Blood Pressure 151/96 H 08/15/18 19:55 Blood Pressure Mean 115 07/30/18 16:43 Blood Pressure Position Supine 07/30/18 16:46 Pulse Oximetry 98 08/15/18 19:55 Respiratory End-tidal CO2 34 07/07/18 15:01 Oxygen Delivery Method Room Air 08/15/18 19:55 Oxygen Flow Rate 0 08/15/18 19:55 Fraction of Inspired Oxygen (FIO2) 28 07/16/18 00:30 Pain Level 5 08/14/18 09:27 Comment 08/13/18 04:30 Intake & Output 08/14/18 08/15/18 08/15/18 23:59 11:59 23:59 Intake Total 1280 / 1720 220 / 555 335 / 555 Output Total 500 / 1450 0 / 0 Balance 780 / 270 220 / 555 335 / 555 Weight 96 kg Intake: IV 250 / 300 220 / 555 335 / 555 Intake, Tube Feeding Amount 1030 / 1420 Output: Urine 450 / 1400 Output, Residual 50 / 50 0 / 0 Other: Urine Color Yellow Yellow Yellow Urine Appearance Cloudy Cloudy Urine Odor Normal Comment incontinent of moderate amt of urine amount unknown. pt has voided x6 since 1540 inc. and on commode Stool Size Moderate Small Stool Characteristics Liquid Soft Brown Voiding Methods Bedside Commode Diaper Bedside Commode Incontinent Diaper Incontinent Laboratory Results WBC 8.73 k/cumm (4.4-10.8) 08/15/18 06:40 RBC 3.53 m/cumm (4.00-5.20) L 08/15/18 06:40 Hgb 8.7 g/dL (12.0-15.5) L 08/15/18 06:40 Hct 30.0 % (36.0-46.0) L 08/15/18 06:40 MCV 85.0 fL (80-95) 08/15/18 06:40 MCH 24.6 pg (27.0-33.0) L 08/15/18 06:40 MCHC 29.0 g/dL (32.0-36.0) L 08/15/18 06:40 RDW 19.4 % (11.7-14.6) H 08/15/18 06:40 Plt Count 372 x1000/uL (130-400) 08/15/18 06:40 MPV 11.1 fL (8.0-11.0) H 08/15/18 06:40 Abs Immat Gran (auto) Cancelled 07/13/18 08:05 Immature Gran % 0.2 08/15/18 06:40 Neutrophils % 60.9 08/15/18 06:40 Band Neutrophils % Cancelled 07/13/18 08:05 Lymphocytes % 21.9 08/15/18 06:40 Atypical Lymphs % Cancelled 07/13/18 08:05 Monocytes % 10.7 08/15/18 06:40 Eosinophils % 5.7 08/15/18 06:40 Basophils % 0.6 08/15/18 06:40 Absolute Neutrophils 5.32 k/cumm (1.2-6.7) 08/15/18 06:40 Absolute Lymphocytes 1.91 k/cumm (1.2-3.4) 08/15/18 06:40 Absolute Monocytes 0.93 k/cumm (0.11-0.7) H 08/15/18 06:40 Absolute Eosinophils 0.50 k/cumm (0.0-0.7) 08/15/18 06:40 Absolute Basophils 0.05 k/cumm (0.0-0.2) 08/15/18 06:40 Metamyelocytes Cancelled 07/13/18 08:05 Myelocytes Cancelled 07/13/18 08:05 Promyelocytes Cancelled 07/13/18 08:05 Nucleated RBCs Cancelled 07/13/18 08:05 Differential Comment Rbc morph reviewed 07/26/18 05:47 Other Cell Type Cancelled 07/13/18 08:05 RBC Morphology See below 07/26/18 05:47 Polychromasia Present 07/17/18 06:35 Hypochromasia 1+ 07/26/18 05:47 Poikilocytosis 1+ 07/17/18 06:35 Basophilic Stippling Cancelled 07/13/18 08:05 Anisocytosis 2+ 07/17/18 06:35 Microcytosis 2+ 07/26/18 05:47 Macrocytosis Cancelled 07/13/18 08:05 Spherocytes Cancelled 07/13/18 08:05 Target Cells Cancelled 07/13/18 08:05 Tear Drop Cells Cancelled 07/13/18 08:05 Ovalocytes 2+ 07/26/18 05:47 Stomatocytes Cancelled 07/13/18 08:05 Telles-Cowarts Bodies Cancelled 07/13/18 08:05 Girma Cells Cancelled 07/13/18 08:05 Acanthocytes (Spur) Cancelled 07/13/18 08:05 Schistocytes 1+ 07/26/18 05:47 D-Dimer 1329 ng/mlFEU (<500) H 07/07/18 21:15 Sodium 143 mmol/L (136-145) 08/15/18 06:40 Potassium 3.4 mmol/L (3.5-5.1) L 08/15/18 06:40 Chloride 103 mmol/L (98-107) 08/15/18 06:40 Carbon Dioxide 34.6 mmol/L (21.0-32.0) H 08/15/18 06:40 Anion Gap 5.4 mmol/L (3-11) 08/15/18 06:40 BUN 26 mg/dL (7-18) H 08/15/18 06:40 Creatinine 0.67 mg/dL (0.55-1.02) 08/15/18 06:40 Estimated GFR/1.73 m2 >= 60.00 (mL/min/1.73m2) 08/15/18 06:40 Glucose 75 mg/dL (70-100) 08/15/18 06:40 Lactate 1.0 mmol/L (0.6-1.4) 07/06/18 07:20 Calcium 8.6 mg/dL (8.5-10.1) 08/15/18 06:40 Magnesium 1.8 mg/dL (1.8-2.4) 08/15/18 06:40 Iron 20 ug/dL (50-175) L 07/25/18 16:13 TIBC 235 ug/dL (250-450) L 07/25/18 16:13 Transferrin % Sat 9 % (15-50) L 07/25/18 16:13 Ferritin 35 ng/mL (8-388) 07/25/18 16:13 Total Bilirubin 0.3 mg/dL (0.2-1.0) 07/12/18 05:50 Conjugated Bilirubin 0.10 mg/dL (0.00-0.20) 07/12/18 05:50 AST 24 U/L (15-37) 07/12/18 05:50 ALT 47 U/L (12-78) 07/12/18 05:50 Alkaline Phosphatase 65 U/L (46-116) 07/12/18 05:50 Ammonia < 10 umol/L (11-32) L 07/15/18 10:20 Troponin I 0.02 ng/mL (0.00-0.06) 07/08/18 05:00 NT-Pro-B Natriuret Pep 744 pg/mL (-299) H 07/31/18 19:52 Total Protein 4.6 g/dL (6.4-8.2) L 07/12/18 05:50 Albumin 2.2 g/dL (3.4-5.0) L 07/12/18 05:50 Lipase 252 U/L (73-393) 07/04/18 13:15 Vitamin B12 471 pg/mL (193-986) 07/25/18 16:13 Folate 8.0 ng/mL (8.6-20.0) L 07/25/18 16:13 Procalcitonin <0.10 ng/mL (<or=1.5) 07/08/18 06:24 Calcitonin Cancelled 07/08/18 06:24 TSH 1.09 uIU/mL (0.358-3.74) 07/06/18 07:20 Urine Color Yellow (Yellow) 08/11/18 16:18 Urine Clarity Sl cloudy 08/11/18 16:18 Urine pH 6.5 (5-8) 08/11/18 16:18 Ur Specific [place] 1.015 (1.005-1.025) 08/11/18 16:18 Urine Protein 100 mg/dL (Negative) H 08/11/18 16:18 Urine Ketones Trace mg/dL (Negative) H 08/11/18 16:18 Urine Blood Large (Negative) H 08/11/18 16:18 Urine Nitrite Negative (Negative) 08/11/18 16:18 Urine Bilirubin Negative (Negative) 08/11/18 16:18 Urine Urobilinogen 0.2 EU/dL (Up TO 0.2) 08/11/18 16:18 Ur Leukocyte Esterase Small (Negative) H 08/11/18 16:18 Urine RBC >50 (0-2) H 08/11/18 16:18 Urine WBC 20-50 HPF (0-5) 08/11/18 16:18 Ur Epithelial Cells Few HPF (Negative) 08/11/18 16:18 Urine Crystals Negative HPF (Negative) 08/11/18 16:18 Urine Bacteria Moderate HPF (Negative) 08/11/18 16:18 Urine Casts Negative LPF (Negative) 08/11/18 16:18 Urine Mucus Trace (Negative) 08/11/18 16:18 Urine Other Rare renal (Negative) 08/11/18 11:45 Ur Culture Indicated? Yes 08/11/18 16:18 Urine Glucose Negative mg/dL (Negative) 08/11/18 16:18 Stool Campylobacter PCR See comments 07/06/18 12:45 Stl C.difficile Tox PCR Cancelled 08/15/18 07:36 Stool Salmonella PCR See comments 07/06/18 12:45 Stool Shigella PCR See comments 07/06/18 12:45 Vancomycin Trough 18.9 ug/mL (10.0-20.0) 07/20/18 06:17 C.difficile Tox Source Cancelled 08/15/18 07:36 Shiga Toxin (PCR) See comments 07/06/18 12:45 Path Cons Comment See comment 07/06/18 07:20 Miscellaneous Test Cancelled 07/08/18 06:24
[2018-08-15] MEDS: clonazePAM 1 MG TAB PO (22:22)
[2018-08-15] MEDS: Donepezil 5 MG TAB 10 MG UD (22:22)
[2018-08-15] MEDS: OLANZapine 5 MG TAB 10 MG UD (22:23)
[2018-08-15 22:58] LABS: Bilirubin Negative (Negative); Blood Negative (Negative); Clarity Clear; Glucose Negative (Negative); Ketones Negative (Negative); Leukocyte Esterase Negative (Negative); Nitrite Negative (Negative); Specific Gravity 1.015 (1.005-1.025); Urobilinogen 0.2 EU/dL (Up TO 0.2)
[2018-08-16 00:29] VITALS: BP 110/68; PULSE 80; RESP 20; TEMP 37.1; O2SAT 97
[2018-08-16] MEDS: PIPERACILLIN/TAZO 3.375 GM in Normal Saline 50 ML IVPB ×3 (00:52→14:51)
[2018-08-16 03:49] VITALS: BP 107/74; PULSE 84; RESP 21; TEMP 36.5; O2SAT 95
[2018-08-16 07:42] VITALS: BP 133/84; PULSE 88; RESP 22; TEMP 36.9; O2SAT 95
[2018-08-16 07:55] LABS: HCT 30.3 % (36.0-46.0); Mean Corp. HGB Concentration 29.7 g/dL (32.0-36.0); Mean Corpuscular Hemoglobin 25.2 pg (27.0-33.0); Mean Corpuscular Volume 84.9 fL (80-95); Mean Platelet Volume 11.1 fL (8.0-11.0); Platelet Count 350 x1000/uL (130-400); RBC 3.57 m/cumm (4.00-5.20); RBC Distribution Width 19.3 % (11.7-14.6); White Blood Cell Count 7.22 k/cumm (4.4-10.8)
[2018-08-16 08:09] LABS: Anion Gap 5.6 mmol/L (3-11); BUN 24 mg/dL (7-18); CO2 34.4 mmol/L (21.0-32.0); CREATININE 0.59 mg/dL (0.55-1.02); Calcium 8.7 mg/dL (8.5-10.1); Chloride 104 mmol/L (98-107); Glucose 76 mg/dL (70-100); Potassium 3.3 mmol/L (3.5-5.1); Sodium 144 mmol/L (136-145)
[2018-08-16] MEDS: Normal Saline Flush 10 ML SYR 20 ML IVP ×2 (08:54→21:33)
[2018-08-16] MEDS: Enoxaparin 40 MG/0.4 ML SYR SC (08:55)
[2018-08-16] MEDS: Furosemide 40 MG/4 ML VIAL IVP ×2 (08:55→16:31)
[2018-08-16] MEDS: MetroNIDAZOLE 500 MG/100 ML BAG 100 MG IVPB ×2 (08:55→16:32)
[2018-08-16] MEDS: clonazePAM 1 MG TAB 1.5 MG PO (08:56)
[2018-08-16] MEDS: Potassium Chloride Liquid 20 MEQ PKT 40 MEQ NG (08:56)
[2018-08-16] MEDS: amLODIPine 5 MG TAB PO (08:56)
[2018-08-16] MEDS: Cyanocobalamin 500 MCG TAB 1000 MCG NG (08:57)
[2018-08-16] MEDS: Methimazole 5 MG TAB UD (08:57)
[2018-08-16] MEDS: Folic Acid 1 MG TAB NG (08:57)
[2018-08-16] MEDS: Ascorbic Acid 500 MG TAB NG ×2 (08:57→21:34)
[2018-08-16] MEDS: Nystatin POWDER 60 GM JAR TP ×2 (08:59→21:36)
[2018-08-16] MEDS: Pantoprazole 40 MG VIAL IVP ×2 (08:59→21:33)
[2018-08-16] MEDS: Ferrous Sulfate 44 MG/ML Liquid 325 MG NG ×2 (09:06→21:39)
--- NOTE | 2018-08-16 09:59 | PDOC.CMPRO ---
- If Service Date Differs Date of service: 08/16/18 Time of Service: 09:59 Care Management Progress Note S/O: Christie continues to work well with PT/OT and is pleasant in interaction. She continues to be closely monitored and remains acute at this time. She did have an increase in her Klonopin to control symptoms. She is having loose stools, she was started on probiotics and is awaiting stool spec for cdiff. Per report she is having urinary retention in which she was straight cath a UA is pending. She remains on IV antibiotics and oral vancomycin pending cdiff results. A: 63 yo disabled female admitted for hypotension, aspiration pneumonia now with a PEG tube placement. P: SNF coordination continues in anticipation of medical stabilization, Christie remains pleasant in interaction and continues to make good effort working with PT/OT/Speech/Psych/Nutrition and medical staff. SNF placement coordination has been difficult given her dual diagnosis, medical complexity and family choice. CM will continue to provide support ongoing discharge planning and disposition.
[2018-08-16] MEDS: Memantine 5 MG TAB 10 MG UD ×2 (11:24→21:34)
[2018-08-16] MEDS: Potassium Chloride Liquid 20 MEQ PKT 40 MEQ PO (11:25)
[2018-08-16 11:30] VITALS: BP 119/82; PULSE 91; RESP 20; TEMP 36.5; O2SAT 96
--- NOTE | 2018-08-16 12:25 | PT.INTREAT ---
Date of service: 08/16/18 Time of Service: 11:30 PT Notes Inpatient Physical Therapy Treatment Note [facility] Date: 08/16/18 PRECAUTIONS:Fall SUBJECTIVE: Pt reports that her stomach is sore and that c/o her breathing and chest to nursing. OBJECTIVE: Sit-stand: CGA Stand-sit: CGA GAIT Assistive Device: 4WW Weight bearing: Full Assist: CGA Distance: static standing and marching in place to fatigue. THEREX: Pt completed UE and LE ther ex as per flow sheet. ASSESSMENT: Pt was fatigued after today's session. PLAN: Cont as per PT POC. TREATMENT CODE/TIME: 11:30-11:55 925) NILDA TORRES
[2018-08-16 15:53] VITALS: BP 133/92; PULSE 92; RESP 19; TEMP 36.9; O2SAT 98
[2018-08-16] MEDS: Potassium Chloride Liquid 20 MEQ PKT 30 MEQ NG (16:33)
--- NOTE | 2018-08-16 18:39 | PGE_ITS ---
Date of Service Date of service: 08/16/18 Time of Service: 18:39 Assessment and Plan (1) Acute colitis: Current visit: Yes Status: Acute Potential colitis of the ascending colon, but with C.Diff negative. PO Vanco and IV Metronidazole discontinued. Appears improved this morning. Continue to monitor. 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 Currently appears at baseline mental status. Continue current Clonazepam dosing. Plan will be for a very slow taper planned over a 6 month course. Continues to appear stable and at baseline mental status. (3) Altered mental status: Current visit: Yes Status: Resolved Confirmed catatonic state by psychiatry, likely precipitated by witholding of chronic psych meds over initial course of hospitalization. Responded well to Benzo therapy as above, now back to baseline. EEG and MRI X2 were negative. (4) Dysphagia: Current visit: Yes Status: Acute History of benign distal esophageal stricture by EGD, s/p dilation in 2007. There was also noted Unprotected aspiration as well as large GERD with evidence of esophagitis. However, repeat EGD here normal and Barium Swallow performed this hospitalization with no evidence of stricture, but with esophageal dysmotility and retention of barium in the esophagus. Patient treated for Aspiration pneumonia now on seperate occasions - s/p PEG tube placement 07/19. Maintaining NPO status with continued Tube Feeds. Also restarted home meds via Peg Tube, with continued aspiration precautions. Due to hypotension from trial of ativan discontinued short acting Cardizem and initiated QHS Imipramine. Also on treatment of GERD with PPI therapy. Will ultimately need outpatient manometry. Of note, had been having problems with initiation of swallowing which appeared new and likely related to her altered mental status/catatonic state from withholding of her psych medications. She has undergone repeat speech evaluation and now able to initiate swallowing well, but with continued and significant discomfort after due to her Esophageal Dysmotility. Will need outpatient GI work-up with manometry. (5) Esophageal dysmotility: Current visit: Yes Status: Acute Treatment as above. (6) Hypotension: Current visit: Yes Status: Resolved Initially, hypotensive to the point of requiring pressor support, and with evidence of end-organ damage with KJ and elevation in Lactate - unknown etiology. Potential Dehydration in the setting of initiation of HCTZ vs. Sepsis - although no evidence of infiltrate or acute infection initially. Does not appear to have been adrenal insufficiency, with steroids weaned off. Echo without clear cardiogenic etiology, and no persistent arrhythmias on monitor. Aspiration pneumonia/recurrent aspiration events now seem like the most likely scenario. Appears resolved. (7) Bradycardia: Current visit: No Status: Resolved Abnormally normal heart rate during initial bout of hypotension, then frankly bradycardic - reportedly had a bout of junctional rhythm as well. However, review of EKG by Cardiology/Electrophysiology with note of Sinus Bradycardia. Avoid jovan agents - also with tachycardia noted. 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 (8) Hypernatremia: Current visit: Yes Status: Resolved Resolved. Continue Tube Feeds, and Free Water via Peg Tube. Of note, patient with occasional bibasilar crackles and subjective dyspnea which responds to prn administration of lasix. Continue previously decreased free water and diuretic therapy. (9) KJ (acute kidney injury): Current visit: Yes Status: Resolved Creatinine stable. (10) Anemia: Current visit: Yes Status: Chronic Stable but low hgb, heme negative stool. Iron studies with low iron, low TIBC, and low ferritin. B12 normal but wit low FA. TSH normal as well. Continue PPI therapy, Ferrous sulfate and Folic Acid supplements. Added Vitamin C as well. (11) Catheter-associated urinary tract infection: Current visit: Yes Status: Acute Catheter was changed 08/11/18 and removed 08/14/18. Culture with pansensitive Pseudomonas. Repeat urinalysis negative. Discontinue Zosyn today. (12) DVT prophylaxis: Current visit: Yes Status: Acute Continue Enoxaparin. (13) Advance directive on file: Current visit: Yes Status: Acute DNR/DNI. Subjective Interval history since last seen: 63-year-old woman with history of cognitive delay and Hypertension, admitted from [facility] Emergency Department with a diagnosis of Hypotension. Ms. Gardiner has a history of cognitive dysfunction, HTN, GERD, and Schizophrenia. She was initially sent to the emergency room because of several days of nonspecific weakness. In the ED she was noted to be significantly hypotensive with blood pressures in the 60s systolic, but without tachycardia. She was given fluid resuscitation and started on levophed. Initial laboratory evaluation of note for leukocytosis, low-grade pyuria (5-10 white cells), negative chest x-ray and CT of the abdomen that was unremarkable except for a known cyst in the right lower quadrant. She was then referred for admission for further evaluation and treatment. Since her admission Blood pressure eventually improved and she has remained off pressor support after recurrence of her hypotension, thought likely secondary to aspiration pneumonia/pneumonitis. Her Urine and Blood Cultures have remained negative, and her C. Diff and Fecal Leukocytes were negative as well. CT of the chest and ECHO have been normal. She did however show evidence of difficulty with swallowing, and a Barium Swallow revealed evidence of barium retention and esophageal dysmotility. Subsequent EGD was negative. Mrs. Gardiner had remained NPO and without oral meds or food for quite some time - successfully underwent PEG tube placement on 07/19 and restarted on her home medications. The Patient is an extremely pleasant and stable woman, previously highly independent and living on her own. Her mental status declined significantly from her baseline - become essentially nonverbal and not following commands. Thought to be likely catatonia psychiatry was consulted and confirmed diagnosis. She was moved to the ICU and given trial of benzodiazepine therapy with excellent success. She is now awake and alert and appears back to baseline mental status. Ms. Gardiner underwent a repeat speech evaluation with improved ability to swallow with return of her mental status, but as expected with a great deal of esophageal dysphagia and resultant discomfort given her esophageal dysmotility. She was discovered to have a UTI, with pansensitive Pseudomonas that was treated with another course of antibiotics, as well as comploints of abdominal pain with evidence of potential Colitis of the ascending colon by CT. Repeat C.Diff returned negative, and repeat urinalysis was normal as well. Plan is for SNF placement for skilled rehab - currently awaiting placement options. She does report continued but mild RLQ abdominal pain this morning. No other events reported. Remains afebrile. Exam Narrative Exam Narrative: General: Patient awake at time of visit, alert and at baseline mental status. NAD. Neck: Supple CV: Regular, nontachycardic, S1S2, No rubs, murmurs, or gallops. Pulmonary: Resolution of mild bibasilar crackles. Abdomen: + Bowel Sounds, soft, nontender, nondistended. RLQ seroma unchanged. PEG Tube site clean. Vascular: No lower extremity edema Psych: Mood and affect at patient's baseline. Objective Objective Clinical Data: Abnormal lab results 02/23/19 02/23/19 Range/Units 07:00 07:00 RBC 3.57 L (4.00-5.20) m/cumm Hgb 9.0 L (12.0-15.5) g/dL Hct 30.3 L (36.0-46.0) % MCH 25.2 L (27.0-33.0) pg MCHC 29.7 L (32.0-36.0) g/dL RDW 19.3 H (11.7-14.6) % MPV 11.1 H (8.0-11.0) fL Potassium 3.3 L (3.5-5.1) mmol/L Carbon Dioxide 34.4 H (21.0-32.0) mmol/L BUN 24 H (7-18) mg/dL Vital Signs Temperature 36.9 C 08/16/18 15:53 Temperature Source Tympanic 08/16/18 15:53 Pulse 92 H 08/16/18 15:53 Pulse Rhythm Regular 08/15/18 19:30 Pulse 94 H 07/30/18 16:43 Respiratory Rate 19 08/16/18 15:53 Respiratory Effort Non-Labored 08/15/18 19:30 Respiratory Depth Normal 08/15/18 19:30 Respiratory Pattern Normal 08/15/18 19:30 Blood Pressure 133/92 H 08/16/18 15:53 Blood Pressure Mean 115 07/30/18 16:43 Blood Pressure Position Supine 07/30/18 16:46 Pulse Oximetry 98 08/16/18 15:53 Respiratory End-tidal CO2 34 07/07/18 15:01 Oxygen Delivery Method Room Air 08/16/18 15:53 Oxygen Flow Rate 0 08/16/18 15:53 Fraction of Inspired Oxygen (FIO2) 28 07/16/18 00:30 Pain Level 5 08/14/18 09:27 Comment 08/13/18 04:30 Intake & Output 08/15/18 08/16/18 08/16/18 23:59 11:59 23:59 Intake Total 795 / 1015 300 / 350 50 / 350 Output Total 900 / 900 Balance -105 / 115 300 / 350 50 / 350 Weight 96.2 kg Intake: IV 405 / 625 300 / 350 50 / 350 Intake, Tube Feeding Amount 390 / 390 Output: Urine 900 / 900 Output, Residual 0 / 0 Other: Urine Color Pale Yellow Urine Appearance Cloudy Comment pt has voided x6 since 1540 inc. and on commode Stool Occult Blood Negative Stool Size Small Stool Characteristics Liquid Voiding Methods Diaper Diaper Incontinent Incontinent Laboratory Results WBC 7.22 k/cumm (4.4-10.8) 08/16/18 07:00 RBC 3.57 m/cumm (4.00-5.20) L 08/16/18 07:00 Hgb 9.0 g/dL (12.0-15.5) L 08/16/18 07:00 Hct 30.3 % (36.0-46.0) L 08/16/18 07:00 MCV 84.9 fL (80-95) 08/16/18 07:00 MCH 25.2 pg (27.0-33.0) L 08/16/18 07:00 MCHC 29.7 g/dL (32.0-36.0) L 08/16/18 07:00 RDW 19.3 % (11.7-14.6) H 08/16/18 07:00 Plt Count 350 x1000/uL (130-400) 08/16/18 07:00 MPV 11.1 fL (8.0-11.0) H 08/16/18 07:00 Abs Immat Gran (auto) Cancelled 07/13/18 08:05 Immature Gran % 0.2 08/15/18 06:40 Neutrophils % 60.9 08/15/18 06:40 Band Neutrophils % Cancelled 07/13/18 08:05 Lymphocytes % 21.9 08/15/18 06:40 Atypical Lymphs % Cancelled 07/13/18 08:05 Monocytes % 10.7 08/15/18 06:40 Eosinophils % 5.7 08/15/18 06:40 Basophils % 0.6 08/15/18 06:40 Absolute Neutrophils 5.32 k/cumm (1.2-6.7) 08/15/18 06:40 Absolute Lymphocytes 1.91 k/cumm (1.2-3.4) 08/15/18 06:40 Absolute Monocytes 0.93 k/cumm (0.11-0.7) H 08/15/18 06:40 Absolute Eosinophils 0.50 k/cumm (0.0-0.7) 08/15/18 06:40 Absolute Basophils 0.05 k/cumm (0.0-0.2) 08/15/18 06:40 Metamyelocytes Cancelled 07/13/18 08:05 Myelocytes Cancelled 07/13/18 08:05 Promyelocytes Cancelled 07/13/18 08:05 Nucleated RBCs Cancelled 07/13/18 08:05 Differential Comment Rbc morph reviewed 07/26/18 05:47 Other Cell Type Cancelled 07/13/18 08:05 RBC Morphology See below 07/26/18 05:47 Polychromasia Present 07/17/18 06:35 Hypochromasia 1+ 07/26/18 05:47 Poikilocytosis 1+ 07/17/18 06:35 Basophilic Stippling Cancelled 07/13/18 08:05 Anisocytosis 2+ 07/17/18 06:35 Microcytosis 2+ 07/26/18 05:47 Macrocytosis Cancelled 07/13/18 08:05 Spherocytes Cancelled 07/13/18 08:05 Target Cells Cancelled 07/13/18 08:05 Tear Drop Cells Cancelled 07/13/18 08:05 Ovalocytes 2+ 07/26/18 05:47 Stomatocytes Cancelled 07/13/18 08:05 [place] Bodies Cancelled 07/13/18 08:05 [place]ma Cells Cancelled 07/13/18 08:05 Acanthocytes (Spur) Cancelled 07/13/18 08:05 Schistocytes 1+ 07/26/18 05:47 D-Dimer 1329 ng/mlFEU (<500) H 07/07/18 21:15 Sodium 144 mmol/L (136-145) 08/16/18 07:00 Potassium 3.3 mmol/L (3.5-5.1) L 08/16/18 07:00 Chloride 104 mmol/L (98-107) 08/16/18 07:00 Carbon Dioxide 34.4 mmol/L (21.0-32.0) H 08/16/18 07:00 Anion Gap 5.6 mmol/L (3-11) 08/16/18 07:00 BUN 24 mg/dL (7-18) H 08/16/18 07:00 Creatinine 0.59 mg/dL (0.55-1.02) 08/16/18 07:00 Estimated GFR/1.73 m2 >= 60.00 (mL/min/1.73m2) 08/16/18 07:00 Glucose 76 mg/dL (70-100) 08/16/18 07:00 Lactate 1.0 mmol/L (0.6-1.4) 07/06/18 07:20 Calcium 8.7 mg/dL (8.5-10.1) 08/16/18 07:00 Magnesium 2.0 mg/dL (1.8-2.4) 08/16/18 07:00 Iron 20 ug/dL (50-175) L 07/25/18 16:13 TIBC 235 ug/dL (250-450) L 07/25/18 16:13 Transferrin % Sat 9 % (15-50) L 07/25/18 16:13 Ferritin 35 ng/mL (8-388) 07/25/18 16:13 Total Bilirubin 0.3 mg/dL (0.2-1.0) 07/12/18 05:50 Conjugated Bilirubin 0.10 mg/dL (0.00-0.20) 07/12/18 05:50 AST 24 U/L (15-37) 07/12/18 05:50 ALT 47 U/L (12-78) 07/12/18 05:50 Alkaline Phosphatase 65 U/L (46-116) 07/12/18 05:50 Ammonia < 10 umol/L (11-32) L 07/15/18 10:20 Troponin I 0.02 ng/mL (0.00-0.06) 07/08/18 05:00 NT-Pro-B Natriuret Pep 744 pg/mL (-299) H 07/31/18 19:52 Total Protein 4.6 g/dL (6.4-8.2) L 07/12/18 05:50 Albumin 2.2 g/dL (3.4-5.0) L 07/12/18 05:50 Lipase 252 U/L (73-393) 07/04/18 13:15 Vitamin B12 471 pg/mL (193-986) 07/25/18 16:13 Folate 8.0 ng/mL (8.6-20.0) L 07/25/18 16:13 Procalcitonin <0.10 ng/mL (<or=1.5) 07/08/18 06:24 Calcitonin Cancelled 07/08/18 06:24 TSH 1.09 uIU/mL (0.358-3.74) 07/06/18 07:20 Urine Color Yellow (Yellow) 08/15/18 22:50 Urine Clarity Clear 08/15/18 22:50 Urine pH 7.0 (5-8) 08/15/18 22:50 Ur Specific [place] 1.015 (1.005-1.025) 08/15/18 22:50 Urine Protein Negative mg/dL (Negative) 08/15/18 22:50 Urine Ketones Negative mg/dL (Negative) 08/15/18 22:50 Urine Blood Negative (Negative) 08/15/18 22:50 Urine Nitrite Negative (Negative) 08/15/18 22:50 Urine Bilirubin Negative (Negative) 08/15/18 22:50 Urine Urobilinogen 0.2 EU/dL (Up TO 0.2) 08/15/18 22:50 Ur Leukocyte Esterase Negative (Negative) 08/15/18 22:50 Urine RBC >50 (0-2) H 08/11/18 16:18 Urine WBC 20-50 HPF (0-5) 08/11/18 16:18 Ur Epithelial Cells Few HPF (Negative) 08/11/18 16:18 Urine Crystals Negative HPF (Negative) 08/11/18 16:18 Urine Bacteria Moderate HPF (Negative) 08/11/18 16:18 Urine Casts Negative LPF (Negative) 08/11/18 16:18 Urine Mucus Trace (Negative) 08/11/18 16:18 Urine Other Rare renal (Negative) 08/11/18 11:45 Ur Culture Indicated? Yes 08/11/18 16:18 Urine Glucose Negative mg/dL (Negative) 08/15/18 22:50 Stool Campylobacter PCR See comments 07/06/18 12:45 Stl C.difficile Tox PCR Cancelled 08/15/18 07:36 Stool Salmonella PCR See comments 07/06/18 12:45 Stool Shigella PCR See comments 07/06/18 12:45 Vancomycin Trough 18.9 ug/mL (10.0-20.0) 07/20/18 06:17 C.difficile Tox Source Cancelled 08/15/18 07:36 Shiga Toxin (PCR) See comments 07/06/18 12:45 Path Cons Comment See comment 07/06/18 07:20 Miscellaneous Test Cancelled 07/08/18 06:24
[2018-08-16 20:59] VITALS: BP 128/72; PULSE 84; RESP 20; TEMP 36.6; O2SAT 97
[2018-08-16] MEDS: OLANZapine 5 MG TAB 10 MG UD (21:34)
[2018-08-16] MEDS: Donepezil 5 MG TAB 10 MG UD (21:34)
[2018-08-16] MEDS: clonazePAM 1 MG TAB PO (21:35)
[2018-08-17] VITALS (8 sets, daily range): BP systolic 108–144; BP diastolic 72–94; PULSE 82–107; RESP 17–21; TEMP 36–37.4; O2SAT 94–98
[2018-08-17 07:38] LABS: Abs Immature Grans 0.02 k/cumm (0.0-0.09); Absolute Basophil Count 0.06 k/cumm (0.0-0.2); Absolute Eosinophil Count 0.64 k/cumm (0.0-0.7); Absolute Lymphocyte Count 1.94 k/cumm (1.2-3.4); Absolute Monocyte Count 0.88 k/cumm (0.11-0.7); Absolute Neutrophil Count 4.72 k/cumm (1.2-6.7); Basophils % 0.7; Eosinophils % 7.7; HCT 32.8 % (36.0-46.0); HGB 9.8 g/dL (12.0-15.5); Immature Grans % 0.2; Lymphocytes % 23.5; Mean Corp. HGB Concentration 29.9 g/dL (32.0-36.0); Mean Corpuscular Hemoglobin 25.3 pg (27.0-33.0); Mean Corpuscular Volume 84.8 fL (80-95); Monocytes % 10.7; Neutrophils % 57.2; Platelet Count 401 x1000/uL (130-400); RBC 3.87 m/cumm (4.00-5.20); RBC Distribution Width 19.2 % (11.7-14.6); White Blood Cell Count 8.26 k/cumm (4.4-10.8)
[2018-08-17 07:46] LABS: Anion Gap 7.6 mmol/L (3-11); BUN 26 mg/dL (7-18); CO2 33.4 mmol/L (21.0-32.0); CREATININE 0.67 mg/dL (0.55-1.02); Calcium 8.9 mg/dL (8.5-10.1); Chloride 104 mmol/L (98-107); Glucose 111 mg/dL (70-100); Magnesium 1.9 mg/dL (1.8-2.4); Potassium 3.6 mmol/L (3.5-5.1); Sodium 145 mmol/L (136-145)
[2018-08-17] MEDS: Enoxaparin 40 MG/0.4 ML SYR SC (09:05)
[2018-08-17] MEDS: Normal Saline Flush 10 ML SYR 20 ML IVP ×2 (09:05→21:06)
[2018-08-17] MEDS: Furosemide 40 MG/4 ML VIAL IVP ×2 (09:06→15:23)
[2018-08-17] MEDS: Pantoprazole 40 MG VIAL IVP ×2 (09:06→21:05)
[2018-08-17] MEDS: Methimazole 5 MG TAB 10 MG UD (09:07)
[2018-08-17] MEDS: amLODIPine 5 MG TAB PO (09:07)
[2018-08-17] MEDS: Memantine 5 MG TAB 10 MG UD ×2 (09:07→21:05)
[2018-08-17] MEDS: Potassium Chloride Liquid 20 MEQ PKT 40 MEQ NG (09:07)
[2018-08-17] MEDS: Ascorbic Acid 500 MG TAB NG ×2 (09:08→21:05)
[2018-08-17] MEDS: Folic Acid 1 MG TAB NG (09:08)
[2018-08-17] MEDS: Cyanocobalamin 500 MCG TAB 1000 MCG NG (09:08)
[2018-08-17] MEDS: clonazePAM 1 MG TAB 1.5 MG PO (09:08)
[2018-08-17] MEDS: Nystatin POWDER 60 GM JAR TP ×2 (09:09→21:08)
--- NOTE | 2018-08-17 09:33 | PDOC.CMPRO ---
- If Service Date Differs Date of service: 08/17/18 Time of Service: 09:33 Care Management Progress Note S/O: Christie continues to receive PT/OT, per PT she was more tired today and unable to participate as well. She continues to be closely monitored and remains acute at this time. She continues to have urinary retention, she is having bladder scans with as needed straight cath. C. difficile was negative she is no longer on antibiotics. Continue search for placement, anticipate she will transition to swing bed 1 when medically ready. A: 63 yo disabled female admitted for hypotension, aspiration pneumonia now with a PEG tube placement. P: SNF coordination continues in anticipation of medical stabilization, Christie remains pleasant in interaction and continues to make good effort working with PT/OT/Speech/Psych/Nutrition and medical staff. SNF placement coordination has been difficult given her dual diagnosis, medical complexity and family choice. CM will continue to provide support ongoing discharge planning and disposition.
[2018-08-17] MEDS: Ferrous Sulfate 44 MG/ML Liquid 325 MG NG ×2 (09:41→21:13)
--- NOTE | 2018-08-17 12:33 | PT.INTREAT ---
Date of service: 08/17/18 Time of Service: 11:25 PT Notes Inpatient Physical Therapy Treatment Note [facility] Date: 08/17/18 PRECAUTIONS:Fall SUBJECTIVE: Pt complains of being tired today. OBJECTIVE: Supine-sit: CGA Sit-supine: CGA Sit-stand: CGA Stand-sit: CGA GAIT Assistive Device: 4WW Weight bearing: Full Assist: CGA Distance: marching in place and standing until fatigued THEREX: Pt completed UE and LE ther ex as per flow sheet. ASSESSMENT: Pt was more fatigued today and not able to tolerate as much. PLAN: Cont as per PT POC. TREATMENT CODE/TIME: 11:25-11:40 (15) TP
[2018-08-17] MEDS: Potassium Chloride Liquid 20 MEQ PKT 40 MEQ UD (15:22)
[2018-08-17] MEDS: Magnesium Oxide 400 MG TAB UD (15:22)
[2018-08-17] MEDS: Normal Saline Flush 10 ML SYR IVP (15:23)
--- NOTE | 2018-08-17 16:39 | PGE_ITS ---
Date of Service Date of service: 08/17/18 Time of Service: 16:38 Assessment and Plan (1) Acute colitis: Current visit: Yes Status: Acute Potential colitis of the ascending colon, but with C.Diff negative. PO Vanco and IV Metronidazole discontinued. Appears improved this morning. Continue to monitor. 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 Currently appears at baseline mental status. Continue current Clonazepam dosing. Plan will be for a very slow taper planned over a 6 month course. Continues to appear stable and at baseline mental status. (3) Altered mental status: Current visit: Yes Status: Resolved Confirmed catatonic state by psychiatry, likely precipitated by witholding of chronic psych meds over initial course of hospitalization. Responded well to Benzo therapy as above, now back to baseline. EEG and MRI X2 were negative. (4) Dysphagia: Current visit: Yes Status: Acute History of benign distal esophageal stricture by EGD, s/p dilation in 2007. There was also noted Unprotected aspiration as well as large GERD with evidence of esophagitis. However, repeat EGD here normal and Barium Swallow performed this hospitalization with no evidence of stricture, but with esophageal dysmotility and retention of barium in the esophagus. Patient treated for Aspiration pneumonia now on seperate occasions - s/p PEG tube placement 07/19. Maintaining NPO status with continued Tube Feeds. Also restarted home meds via Peg Tube, with continued aspiration precautions. Currently on QHS Imipramine. Also on treatment of GERD with PPI therapy. Will ultimately need outpatient manometry. Of note, had been having problems with initiation of swallowing which appeared new and likely related to her altered mental status/catatonic state from withholding of her psych medications. She has undergone repeat speech evaluation and now able to initiate swallowing well, but with continued and significant discomfort after due to her Esophageal Dysmotility. Will need outpatient GI work-up with manometry. (5) Esophageal dysmotility: Current visit: Yes Status: Acute Treatment as above. (6) Hypotension: Current visit: Yes Status: Resolved Initially, hypotensive to the point of requiring pressor support, and with evidence of end-organ damage with KJ and elevation in Lactate - unknown etiology. Potential Dehydration in the setting of initiation of HCTZ vs. Sepsis - although no evidence of infiltrate or acute infection initially. Does not appear to have been adrenal insufficiency, with steroids weaned off. Echo without clear cardiogenic etiology, and no persistent arrhythmias on monitor. Aspiration pneumonia/recurrent aspiration events now seem like the most likely scenario. Resolved. (7) Bradycardia: Current visit: No Status: Resolved Abnormally normal heart rate during initial bout of hypotension, then frankly bradycardic - reportedly had a bout of junctional rhythm as well. However, review of EKG by Cardiology/Electrophysiology with note of Sinus Bradycardia. Avoid jovan agents - also with tachycardia noted. 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 (8) Hypernatremia: Current visit: Yes Status: Resolved Resolved. Continue Tube Feeds, and Free Water via Peg Tube. Of note, patient with occasional bibasilar crackles and subjective dyspnea which responds to prn administration of lasix. Continue previously decreased free water and diuretic therapy, and monitor weight and lytes carefully - Current weight of 95.7 Kg - dry weight appears to be at 91-92 kg. (9) KJ (acute kidney injury): Current visit: Yes Status: Resolved Creatinine stable. (10) Anemia: Current visit: Yes Status: Chronic Stable but low hgb, heme negative stool. Iron studies with low iron, low TIBC, and low ferritin. B12 normal but wit low FA. TSH normal as well. Continue PPI therapy, Ferrous sulfate, Vitamin C, and Folic Acid supplements. Hgb remains low but stable. (11) Catheter-associated urinary tract infection: Current visit: Yes Status: Acute Catheter was changed 08/11/18 and removed 08/14/18. Culture with pansensitive Pseudomonas. Repeat urinalysis negative. Discontinued Zosyn on 08/16. (12) Urinary retention: Current visit: Yes Status: Acute Likely based on use of Benzodiazepines. Void trial unsuccessful. Will reinitiate Campbell today. (13) DVT prophylaxis: Current visit: Yes Status: Acute Continue Enoxaparin. (14) Advance directive on file: Current visit: Yes Status: Acute DNR/DNI. Subjective Interval history since last seen: 63-year-old woman with history of cognitive delay and Hypertension, admitted from [facility] Emergency Department with a diagnosis of Hypotension. Ms. Gardiner has a history of cognitive dysfunction, HTN, GERD, and Schizophrenia. She was initially sent to the emergency room because of several days of nonspecific weakness. In the ED she was noted to be significantly hypotensive with blood pressures in the 60s systolic, but without tachycardia. She was given fluid resuscitation and started on levophed. Initial laboratory evaluation of note for leukocytosis, low-grade pyuria (5-10 white cells), negative chest x-ray and CT of the abdomen that was unremarkable except for a known cyst in the right lower quadrant. She was then referred for admission for further evaluation and treatment. Since her admission Blood pressure eventually improved and she has remained off pressor support after recurrence of her hypotension, thought likely secondary to aspiration pneumonia/pneumonitis. Her Urine and Blood Cultures have remained negative, and her C. Diff and Fecal Leukocytes were negative as well. CT of the chest and ECHO have been normal. She did however show evidence of difficulty with swallowing, and a Barium Swallow revealed evidence of barium retention and esophageal dysmotility. Subsequent EGD was negative. Mrs. Gardiner had remained NPO and without oral meds or food for quite some time - successfully underwent PEG tube placement on 07/19 and restarted on her home medications. The Patient is an extremely pleasant and stable woman, previously highly independent and living on her own. Her mental status declined significantly from her baseline - become essentially nonverbal and not following commands. Thought to be likely catatonia psychiatry was consulted and confirmed diagnosis. She was moved to the ICU and given trial of benzodiazepine therapy with excellent success. She is now awake and alert and appears back to baseline mental status. Ms. Gardiner underwent a repeat speech evaluation with improved ability to swallow with return of her mental status, but as expected with a great deal of esophageal dysphagia and resultant discomfort given her esophageal dysmotility. She was discovered to have a UTI, with pansensitive Pseudomonas that was treated with another course of antibiotics, as well as comploints of abdominal pain with evidence of potential Colitis of the ascending colon by CT. Repeat C.Diff returned negative, and repeat urinalysis was normal as well - patient's antibiotics have been held. She continues to exhibit urinary retention post campbell discontinuation, with >500-600 cc's post void. Plan is for eventual SNF placement for skilled rehab - currently awaiting placement options. She reports continued but mild RLQ abdominal pain this morning. No other events reported. Remains afebrile. Exam Narrative Exam Narrative: General: Patient awake at time of visit, alert and at baseline mental status. NAD. Neck: Supple CV: Regular, nontachycardic, S1S2, No rubs, murmurs, or gallops. Pulmonary: Resolution of mild bibasilar crackles. Abdomen: + Bowel Sounds, soft, nondistended. RLQ seroma unchanged. PEG Tube site clean. Minimal but continued RLQ pain on palpation - no rebound. Vascular: No lower extremity edema Psych: Mood and affect at patient's baseline. Objective Objective Clinical Data: Abnormal lab results 08/17/18 08/17/18 Range/Units 06:50 06:50 RBC 3.87 L (4.00-5.20) m/cumm Hgb 9.8 L (12.0-15.5) g/dL Hct 32.8 L (36.0-46.0) % MCH 25.3 L (27.0-33.0) pg MCHC 29.9 L (32.0-36.0) g/dL RDW 19.2 H (11.7-14.6) % Plt Count 401 H (130-400) x1000/uL Absolute Monocytes 0.88 H (0.11-0.7) k/cumm Carbon Dioxide 33.4 H (21.0-32.0) mmol/L BUN 26 H (7-18) mg/dL Glucose 111 H (70-100) mg/dL Vital Signs Temperature 36.5 C 08/17/18 16:34 Temperature Source Tympanic 08/17/18 16:34 Pulse 107 H 08/17/18 16:34 Pulse Rhythm Regular 08/17/18 09:00 Pulse 94 H 07/30/18 16:43 Respiratory Rate 19 08/17/18 16:34 Respiratory Effort Non-Labored 08/17/18 09:00 Respiratory Depth Normal 08/17/18 09:00 Respiratory Pattern Normal 08/17/18 09:00 Blood Pressure 125/89 08/17/18 16:34 Blood Pressure Mean 115 07/30/18 16:43 Blood Pressure Position Supine 07/30/18 16:46 Pulse Oximetry 97 08/17/18 16:34 Respiratory End-tidal CO2 34 07/07/18 15:01 Oxygen Delivery Method Room Air 08/17/18 16:34 Oxygen Flow Rate 0 08/17/18 16:34 Fraction of Inspired Oxygen (FIO2) 28 07/16/18 00:30 Pain Level 5 08/14/18 09:27 Comment 08/13/18 04:30 Intake & Output 08/16/18 08/17/18 08/17/18 23:59 11:59 23:59 Intake Total 1269 / 2240 780 / 1170 390 / 1170 Output Total 1800 / 2950 2000 / 2300 300 / 2300 Balance -531 / -710 -1220 / -1130 90 / -1130 Weight 95.7 kg Intake: IV 489 / 1070 Intake, Tube Feeding Amount 780 / 1170 780 / 1170 390 / 1170 Output: Urine 1800 / 2700 2000 / 2300 300 / 2300 Output, Residual 0 / 0 0 / 0 0 / 0 Other: Urine Color Pale Yellow Yellow Yellow Urine Appearance Clear Clear Clear Urine Odor None None Comment Intermittent straight cath completed post void. Pt unable to void at the time of ISC. voided 450cc scanned for 510-583cc after a less than 50cc void Stool Size Smear Smear Stool Characteristics Liquid Voiding Methods Diaper Bedside Commode Bedside Commode Laboratory Results WBC 8.26 k/cumm (4.4-10.8) 08/17/18 06:50 RBC 3.87 m/cumm (4.00-5.20) L 08/17/18 06:50 Hgb 9.8 g/dL (12.0-15.5) L 08/17/18 06:50 Hct 32.8 % (36.0-46.0) L 08/17/18 06:50 MCV 84.8 fL (80-95) 08/17/18 06:50 MCH 25.3 pg (27.0-33.0) L 08/17/18 06:50 MCHC 29.9 g/dL (32.0-36.0) L 08/17/18 06:50 RDW 19.2 % (11.7-14.6) H 08/17/18 06:50 Plt Count 401 x1000/uL (130-400) H 08/17/18 06:50 MPV 11.0 fL (8.0-11.0) 08/17/18 06:50 Abs Immat Gran (auto) Cancelled 07/13/18 08:05 Immature Gran % 0.2 08/17/18 06:50 Neutrophils % 57.2 08/17/18 06:50 Band Neutrophils % Cancelled 07/13/18 08:05 Lymphocytes % 23.5 08/17/18 06:50 Atypical Lymphs % Cancelled 07/13/18 08:05 Monocytes % 10.7 08/17/18 06:50 Eosinophils % 7.7 08/17/18 06:50 Basophils % 0.7 08/17/18 06:50 Absolute Neutrophils 4.72 k/cumm (1.2-6.7) 08/17/18 06:50 Absolute Lymphocytes 1.94 k/cumm (1.2-3.4) 08/17/18 06:50 Absolute Monocytes 0.88 k/cumm (0.11-0.7) H 08/17/18 06:50 Absolute Eosinophils 0.64 k/cumm (0.0-0.7) 08/17/18 06:50 Absolute Basophils 0.06 k/cumm (0.0-0.2) 08/17/18 06:50 Metamyelocytes Cancelled 07/13/18 08:05 Myelocytes Cancelled 07/13/18 08:05 Promyelocytes Cancelled 07/13/18 08:05 Nucleated RBCs Cancelled 07/13/18 08:05 Differential Comment Rbc morph reviewed 07/26/18 05:47 Other Cell Type Cancelled 07/13/18 08:05 RBC Morphology See below 07/26/18 05:47 Polychromasia Present 07/17/18 06:35 Hypochromasia 1+ 07/26/18 05:47 Poikilocytosis 1+ 07/17/18 06:35 Basophilic Stippling Cancelled 07/13/18 08:05 Anisocytosis 2+ 07/17/18 06:35 Microcytosis 2+ 07/26/18 05:47 Macrocytosis Cancelled 07/13/18 08:05 Spherocytes Cancelled 07/13/18 08:05 Target Cells Cancelled 07/13/18 08:05 Tear Drop Cells Cancelled 07/13/18 08:05 Ovalocytes 2+ 07/26/18 05:47 Stomatocytes Cancelled 07/13/18 08:05 Telles-Wanship Bodies Cancelled 07/13/18 08:05 [place] Cells Cancelled 07/13/18 08:05 Acanthocytes (Spur) Cancelled 07/13/18 08:05 Schistocytes 1+ 07/26/18 05:47 D-Dimer 1329 ng/mlFEU (<500) H 07/07/18 21:15 Sodium 145 mmol/L (136-145) 08/17/18 06:50 Potassium 3.6 mmol/L (3.5-5.1) 08/17/18 06:50 Chloride 104 mmol/L (98-107) 08/17/18 06:50 Carbon Dioxide 33.4 mmol/L (21.0-32.0) H 08/17/18 06:50 Anion Gap 7.6 mmol/L (3-11) 08/17/18 06:50 BUN 26 mg/dL (7-18) H 08/17/18 06:50 Creatinine 0.67 mg/dL (0.55-1.02) 08/17/18 06:50 Estimated GFR/1.73 m2 >= 60.00 (mL/min/1.73m2) 08/17/18 06:50 Glucose 111 mg/dL (70-100) H 08/17/18 06:50 Lactate 1.0 mmol/L (0.6-1.4) 07/06/18 07:20 Calcium 8.9 mg/dL (8.5-10.1) 08/17/18 06:50 Magnesium 1.9 mg/dL (1.8-2.4) 08/17/18 06:50 Iron 20 ug/dL (50-175) L 07/25/18 16:13 TIBC 235 ug/dL (250-450) L 07/25/18 16:13 Transferrin % Sat 9 % (15-50) L 07/25/18 16:13 Ferritin 35 ng/mL (8-388) 07/25/18 16:13 Total Bilirubin 0.3 mg/dL (0.2-1.0) 07/12/18 05:50 Conjugated Bilirubin 0.10 mg/dL (0.00-0.20) 07/12/18 05:50 AST 24 U/L (15-37) 07/12/18 05:50 ALT 47 U/L (12-78) 07/12/18 05:50 Alkaline Phosphatase 65 U/L (46-116) 07/12/18 05:50 Ammonia < 10 umol/L (11-32) L 07/15/18 10:20 Troponin I 0.02 ng/mL (0.00-0.06) 07/08/18 05:00 NT-Pro-B Natriuret Pep 744 pg/mL (-299) H 07/31/18 19:52 Total Protein 4.6 g/dL (6.4-8.2) L 07/12/18 05:50 Albumin 2.2 g/dL (3.4-5.0) L 07/12/18 05:50 Lipase 252 U/L (73-393) 07/04/18 13:15 Vitamin B12 471 pg/mL (193-986) 07/25/18 16:13 Folate 8.0 ng/mL (8.6-20.0) L 07/25/18 16:13 Procalcitonin <0.10 ng/mL (<or=1.5) 07/08/18 06:24 Calcitonin Cancelled 07/08/18 06:24 TSH 1.09 uIU/mL (0.358-3.74) 07/06/18 07:20 Urine Color Yellow (Yellow) 08/15/18 22:50 Urine Clarity Clear 08/15/18 22:50 Urine pH 7.0 (5-8) 08/15/18 22:50 Ur Specific Ayr 1.015 (1.005-1.025) 08/15/18 22:50 Urine Protein Negative mg/dL (Negative) 08/15/18 22:50 Urine Ketones Negative mg/dL (Negative) 08/15/18 22:50 Urine Blood Negative (Negative) 08/15/18 22:50 Urine Nitrite Negative (Negative) 08/15/18 22:50 Urine Bilirubin Negative (Negative) 08/15/18 22:50 Urine Urobilinogen 0.2 EU/dL (Up TO 0.2) 08/15/18 22:50 Ur Leukocyte Esterase Negative (Negative) 08/15/18 22:50 Urine RBC >50 (0-2) H 08/11/18 16:18 Urine WBC 20-50 HPF (0-5) 08/11/18 16:18 Ur Epithelial Cells Few HPF (Negative) 08/11/18 16:18 Urine Crystals Negative HPF (Negative) 08/11/18 16:18 Urine Bacteria Moderate HPF (Negative) 08/11/18 16:18 Urine Casts Negative LPF (Negative) 08/11/18 16:18 Urine Mucus Trace (Negative) 08/11/18 16:18 Urine Other Rare renal (Negative) 08/11/18 11:45 Ur Culture Indicated? Yes 08/11/18 16:18 Urine Glucose Negative mg/dL (Negative) 08/15/18 22:50 Stool Campylobacter PCR See comments 07/06/18 12:45 Stl C.difficile Tox PCR Cancelled 08/15/18 07:36 Stool Salmonella PCR See comments 07/06/18 12:45 Stool Shigella PCR See comments 07/06/18 12:45 Vancomycin Trough 18.9 ug/mL (10.0-20.0) 07/20/18 06:17 C.difficile Tox Source Cancelled 08/15/18 07:36 Shiga Toxin (PCR) See comments 07/06/18 12:45 Path Cons Comment See comment 07/06/18 07:20 Miscellaneous Test Cancelled 07/08/18 06:24
--- NOTE | 2018-08-17 21:03 | NUR.NOTE ---
Nursing Note: Pt consistently reports that she cannot breathe well (for 3 consecutive evenings reported to me). Her IS performance is very poor and I feel she is doing her best and understands what she is supposed to do.
[2018-08-17] MEDS: Donepezil 5 MG TAB 10 MG UD (21:05)
[2018-08-17] MEDS: clonazePAM 1 MG TAB PO (21:05)
[2018-08-17] MEDS: OLANZapine 5 MG TAB 10 MG UD (21:05)
[2018-08-18 05:06] VITALS: BP 108/77; PULSE 87; RESP 20; TEMP 36.8; O2SAT 96
[2018-08-18 07:29] LABS: Abs Immature Grans 0.02 k/cumm (0.0-0.09); Absolute Basophil Count 0.05 k/cumm (0.0-0.2); Absolute Eosinophil Count 0.49 k/cumm (0.0-0.7); Absolute Monocyte Count 0.88 k/cumm (0.11-0.7); Absolute Neutrophil Count 5.36 k/cumm (1.2-6.7); Basophils % 0.6; Eosinophils % 5.7; HCT 32.4 % (36.0-46.0); HGB 9.5 g/dL (12.0-15.5); Immature Grans % 0.2; Lymphocytes % 20.9; Mean Corp. HGB Concentration 29.3 g/dL (32.0-36.0); Mean Corpuscular Hemoglobin 25.2 pg (27.0-33.0); Mean Corpuscular Volume 85.9 fL (80-95); Mean Platelet Volume 11.4 fL (8.0-11.0); Monocytes % 10.2; Neutrophils % 62.4; RBC 3.77 m/cumm (4.00-5.20); RBC Distribution Width 19.2 % (11.7-14.6)
[2018-08-18 07:30] VITALS: BP 111/73; PULSE 93; RESP 22; TEMP 36.6; O2SAT 94
[2018-08-18 07:45] LABS: Magnesium 1.9 mg/dL (1.8-2.4)
[2018-08-18 08:07] LABS: Anisocytosis 2+; Basophilic Stippling Present; Diff Comment RBC Morph Reviewed; Hypochromasia 1+
[2018-08-18 08:08] LABS: Platelet Count 382 x1000/uL (130-400); Poikilocytes 1+; Polychromasia Present
[2018-08-18] MEDS: Normal Saline Flush 10 ML SYR 20 ML IVP ×2 (08:26→21:21)
[2018-08-18] MEDS: Pantoprazole 40 MG VIAL IVP ×2 (08:27→21:21)
[2018-08-18] MEDS: Enoxaparin 40 MG/0.4 ML SYR SC (08:27)
[2018-08-18] MEDS: Furosemide 40 MG/4 ML VIAL IVP ×2 (08:27→16:17)
[2018-08-18] MEDS: Potassium Chloride Liquid 20 MEQ PKT 40 MEQ NG (08:28)
[2018-08-18] MEDS: Memantine 5 MG TAB 10 MG UD ×2 (08:28→21:24)
[2018-08-18] MEDS: clonazePAM 1 MG TAB 1.5 MG PO (08:28)
[2018-08-18] MEDS: Folic Acid 1 MG TAB NG (08:29)
[2018-08-18] MEDS: Methimazole 5 MG TAB UD (08:29)
[2018-08-18] MEDS: Cyanocobalamin 500 MCG TAB 1000 MCG NG (08:29)
[2018-08-18] MEDS: Ascorbic Acid 500 MG TAB NG ×2 (08:29→21:24)
[2018-08-18] MEDS: amLODIPine 5 MG TAB PO (08:29)
[2018-08-18] MEDS: Ferrous Sulfate 44 MG/ML Liquid 325 MG NG ×2 (08:31→21:46)
[2018-08-18] MEDS: Nystatin POWDER 60 GM JAR TP ×2 (08:32→21:25)
--- NOTE | 2018-08-18 09:36 | PDOC.CMPRO ---
Care Management Progress Note S/O: Christie continues to be closely monitored and remains acute at this time. She continues to have urinary retention, and is having bladder scans and straight caths as needed. C. difficile was negative-she is no longer on antibiotics and is currently being diuresed per MD. Christie was offered a bed at [facility] for when she is medically ready. Tiny called to report Christie and her siblings first choice would be to go to the [facility]. CM met with Cheryle to assure she would go to [facility] when medically cleared, Cheryle said Ok! She was watching [employer], sitting up in her chair with her legs elevated. CM accepted bed offer for Christie with Rubia of Admissions and agreed to keep updated with discharge readiness updates. A: 63 yo disabled female admitted for hypotension, aspiration pneumonia now with a PEG tube placement. P: Cheryle will discharge to [facility] when ready per MD. She will likely transfer via W/C van. Christie remains pleasant in interaction and continues to make good effort working with PT/OT/Speech/Psych/Nutrition and medical staff. CM will continue to provide support ongoing discharge planning and disposition.
--- NOTE | 2018-08-18 09:46 | CMPROGNOTE_ITS ---
Care Management Progress Note S/O: Christie continues to be closely monitored and remains acute at this time. She continues to have urinary retention, and is having bladder scans and straight caths as needed. C. difficile was negative-she is no longer on antibiotics and is currently being diuresed per MD. Christie was offered a bed at [facility] for when she is medically ready. Tiny called to report Christie and her siblings first choice would be to go to the [facility]. CM met with Cheryle to assure she would go to [facility] when medically cleared, Cheryle said Ok! She was watching [employer], sitting up in her chair with her legs elevated. CM accepted bed offer for Christie with Rubia of Admissions and agreed to keep updated with discharge readiness updates. A: 63 yo disabled female admitted for hypotension, aspiration pneumonia now with a PEG tube placement. P: Cheryle will discharge to [facility] when ready per MD. She will l ikely transfer via W/C van. Christie remains pleasant in interaction and continues to make good effort working with PT/OT/Speech/Psych/Nutrition and medical staff. CM will continue to provide support ongoing discharge planning and disposition.
--- NOTE | 2018-08-18 11:03 | OT.INPN ---
Date of service: 08/18/18 Time of Service: 10:45 Occupational Therapy Notes Occupational Therapy Inpatient Progress Note Date: 08/18/18 Dates of Service: 08/12/18-08/18/18 Referring Doctor:Dr. Sigala OT Orders: a Precautions: Fall, standard precautions PATIENT PROFILE/ADMITTING DIAGNOSIS: Pt is a 63 year old female who was admitted with c/o weakness, and found in the ER to be hypotensive last month. She has had a prolonged hospital stay, with a decline in medical status resulting in transfer to the ICU and is now being managed on Med Surg. Past Medical History:cognitive dysfunction; HTN; GERD; schizophrenia; Graves disease; esophageal stricture s/p dilation Social History/Home Situation:Prior to admission to [facility] she lived alone in [place] at an assisted living facility. Lives on second floor with elevator or 14 steps. Has family support by her sisters and care also provided by human resources benefits manager. Her baseline level of function for ADLs was (I). Equipment owned/DME: [employer] SUBJECTIVE: Pt was on commode when OT arrived. She was agreeable to OT session but demonstrated decreased functional activity tolerance at todays session. OBJECTIVE: General Observation: PICC connected (L) UE, Bell, PEG tube Mental Status: Alert and aware of place and name Pain: no c/o pain ROM: RUE Shoulder AROM to 110*, wrist and hand WNL L UE Shoulder AROM to 110*, wrist and hand WNL STRENGTH: RUE 4/5 throughout globally LUE 4/5 throughout globally FUNCTIONAL MOBILITY/ADLS: Transfers Sit-stand: CGA, FWW Stand-sit: CGA, FWW Chair-sink: CGA, FWW, min vc Sink-Chair: CGA, FWW, min vc GROOMING Standing at sink with min vc for body positioning and mechanics and hand positioning pt performed teeth and hair brushing. She required vc for steps throughout teeth brushing process and kept trying to open the tooth paste when it was already opened requiring multiple vc that it was already open. TOILETING on commode with max (A) toileting hygiene EATING NPO BALANCE: Static sitting Normal Dynamic Sitting Good Static Standing Fair Dynamic Standing Fair ASSESSMENT: Patient is a 63-year-old female referred to occupational therapy services with diagnosis of deconditioned, long hospitalization. She has been seen for 5 OT sessions and is progressing although today demonstrating decreased functional activity tolerance while standing at the sink stating multiple times that she felt like she was going to fall. OT recommends that pt go to SNF for further rehabilitation. Goals will remain the same at this time as pt is progressing towards (I) in standing at the sink and overall increased functional activity tolerance since initial evaluation. GOALS Goals x1 week 1. Grooming standing at sink with FWW, SBA pt will be able to perform teeth brushing and brushing her hair (I). (NOT MET, pt remains CGA at this time) 2. Dressing sitting in chair with mod (A) for (B) socks pt will be able to (I) don and doff pants and shirt. (NOT MET) 3. Bathing standing at sink with CGA, FWW pt will be able to perform bathing routing with mod (A) lower legs. (NOT MET) 4. Toileting pt will be able to perform toileting routine on toilet with min (A) (MET) 5. Eating (I) (Pt is NPO) PLAN OF CARE/TREATMENT PLAN: 1x/day, 5 days/ week x 1week Initiate Occupational Therapy Services for bathing, dressing, grooming, toileting, eating, transfer training. DISCHARGE RECOMMENDATIONS To SNF for further rehabilitation and assistance when medically cleared per MD. TREATMENT TIME/MINUTES/CODES [id number], 15 minutes (10:45) Ashtyn Alvarez OTR/[facility]
[2018-08-18 11:10] VITALS: BP 137/93; PULSE 99; RESP 20; TEMP 36.1; O2SAT 97
--- NOTE | 2018-08-18 11:10 | OTPN_ITS ---
Date of service: 08/18/18 Time of Service: 10:45 Occupational Therapy Notes Occupational Therapy Inpatient Progress Note Date: 08/18/18 Dates of Service: 08/12/18-08/18/18 Referring Doctor:Dr. Sigala OT Orders: a Precautions: Fall, standard precautions PATIENT PROFILE/ADMITTING DIAGNOSIS: Pt is a 63 year old female who was admitted with c/o weakness, and found in the ER to be hypotensive last month. She has had a prolonged hospital stay, with a decline in medical status resulting in transfer to the ICU and is now being managed on Med Surg. Past Medical History:cognitive dysfunction; HTN; GERD; schizophrenia; Graves disease; esophageal stricture s/p dilation Social History/Home Situation:Prior to admission to [facility] she lived alone in [place] at an assisted living facility. Lives on second floor with elevator or 14 steps. 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 Her baseline level of function for ADLs was (I). Equipment owned/DME: [employer] SUBJECTIVE: Pt was on commode when OT arrived. She was agreeable to OT session but demonstrated decreased functional activity tolerance at todays session. OBJECTIVE: General Observation: PICC connected (L) UE, Bell, PEG tube Mental Status: Alert and aware of place and name Pain: no c/o pain ROM: RUE Shoulder AROM to 110*, wrist and hand WNL L UE Shoulder AROM to 110*, wrist and hand WNL STRENGTH: RUE 4/5 throughout globally LUE 4/5 throughout globally FUNCTIONAL MOBILITY/ADLS: Transfers Sit-stand: CGA, FWW Stand-sit: CGA, FWW Chair-sink: CGA, FWW, min vc Sink-Chair: CGA, FWW, min vc GROOMING Standing at sink with min vc for body positioning and mechanics and hand positioning pt performed teeth and hair brushing. She required vc for steps throughout teeth brushing process and kept trying to open the tooth paste when it was already opened requiring multiple vc that it was already open. TOILETING on commode with max (A) toileting hygiene EATING NPO BALANCE: Static sitting Normal Dynamic Sitting Good Static Standing Fair Dynamic Standing Fair ASSESSMENT: Patient is a 63-year-old female referred to occupational therapy services with diagnosis of deconditioned, long hospitalization. She has been seen for 5 OT sessions and is progressing although today demonstrating decreased functional activity tolerance while standing at the sink stating multiple times that she felt like she was going to fall. OT recommends that pt go to SNF for further rehabilitation. Goals will remain the same at this time as pt is progressing towards (I) in standing at the sink and overall increased functional activity tolerance since initial evaluation. GOALS Goals x1 week 1. Grooming standing at sink with FWW, SBA pt will be able to perform teeth brushing and brushing her hair (I). (NOT MET, pt remains CGA at this time) 2. Dressing sitting in chair with mod (A) for (B) socks pt will be able to (I) don and doff pants and shirt. (NOT MET) 3. Bathing standing at sink with CGA, FWW pt will be able to perform bathing routing with mod (A) lower legs. (NOT MET) 4. Toileting pt will be able to perform toileting routine on toilet with min (A) (MET) 5. Eating (I) (Pt is NPO) PLAN OF CARE/TREATMENT PLAN: 1x/day, 5 days/ week x 1week Initiate Occupational Therapy Services for bathing, dressing, grooming, toileting, eating, transfer training. DISCHARGE RECOMMENDATIONS To SNF for further rehabilitation and assistance when medically cleared per MD. TREATMENT TIME/MINUTES/CODES [id number], 15 minutes (10:45) Ashtyn Alvarez OTR/[facility]
--- NOTE | 2018-08-18 14:42 | PT.INTREAT ---
Date of service: 08/18/18 Time of Service: 14:43 PT Notes 08/18/18 SUBJECTIVE: Christie stating her legs feel tired this morning. She is also complaining of left foot pain and she references the top of her foot. OBJECTIVE: Pt seated on commode. Agreeable to PT treatment. TRANSFERS Sit to stand: SBA Stand to sit: SBA GAIT Device: 4WW Weight bearing: Full Assist: CGA Distance: 10'x2 Deviation: Pt stood at sink to perform ADL's x 2 minutes. THEREX: Pt performs seated UE/LE strengthening exercises. She completes resisted UE exercises using green thera band. See flow sheet for specific. ASSESSMENT: Pt does appear to be more weak through the LE's this morning tolerating decreased ambulation. She does seem concerned about her foot bothering her and I remove her sock several times so she can look at it. She does have some swelling through her LE's and feet and this may be what she is feeling. We end treatment with pt's feet elevated in her recliner. PLAN: Continue current POC progressing toward's established goals. Session # 1: 30 minutes [id number], [id number] Alice Howard PTA
--- NOTE | 2018-08-18 15:13 | W.NUTRFU ---
Date of service: 08/18/18 Time of Service: 15:13 Nutritional Follow up NOTE: Ms. Gardiner continues to be stable on her tube feeding regimen per her PEG tube. She is 67 and 95.7 kg/ on 08/17/18 which gives her a BMI of 33 kg/m2 consistent with class 1 obesity. She will discharge on the following tube feeding regimen: Jevity 1.2 micki 390 ml bolus, four times per day using a 60 cc syringe. Boluses are provided per her PEG tube at 800, 1300, 1800, and 2200 or approximate times. Give 175 ml of free water pre and post feeding via syringe as well. Total volume per day of Jevity 1.2 micki is 1560 ml. Total free water per day should be at least 1400 ml/day based on her hydration status. Monitor weight, hydration and overall nutritional status. Evaluate nutrition care plan ongoing and adjust accordingly. Time Spent in Nutritional Counseling and Treatment: BERNABE
--- NOTE | 2018-08-18 15:29 | PT.INTREAT ---
Date of service: 08/18/18 Time of Service: 13:40 PT Notes 08/18/18 SUBJECTIVE: Christie states that she'd like to get up and walk. She's feeling good this afternoon. OBJECTIVE: Pt seated in chair. Bell catheter in place. TRANSFERS Sit to stand: SBA Stand to sit: SBA GAIT Device: 4WW Weight bearing: Full Assist: CGA Distance: 30' Deviation: significant fatigue, with need for cues for safe transfer back to chair THEREX: Pt performs seated UE/LE strengthening exercises. She completes resisted UE exercises using green thera band. Also completes sit<->stand excercises with CG, demonstrating significant fatigue, and unable to continue after 5 reps. See flow sheet for specifics. ASSESSMENT: Tolerated this afternoon's session well, with ability to progress her gait distance and complete both open and closed chain strengthening. PLAN: Continue current POC progressing toward's established goals. Session # 2: 25 minutes (1:40-2:05) [id number], [id number] Karen Floyd, PT, DPT [facility]
--- NOTE | 2018-08-18 15:32 | PTTR_ITS ---
Date of service: 08/18/18 Time of Service: 13:40 PT Notes 08/18/18 SUBJECTIVE: Christie states that she'd like to get up and walk. She's feeling good this afternoon. OBJECTIVE: Pt seated in chair. Bell catheter in place. TRANSFERS Sit to stand: SBA Stand to sit: SBA GAIT Device: 4WW Weight bearing: Full Assist: CGA Distance: 30' Deviation: significant fatigue, with need for cues for safe transfer back to chair THEREX: Pt performs seated UE/LE strengthening exercises. She completes resisted UE exercises using green thera band. Also completes sit<->stand excercises with CG, demonstrating significant fatigue, and unable to continue after 5 reps. See flow sheet for specifics. ASSESSMENT: Tolerated this afternoon's session well, with ability to progress her gait distance and complete both open and closed chain strengthening. PLAN: Continue current POC progressing toward's established goals. Session # 2: 25 minutes (1:40-2:05) [id number], [id number] Karen Floyd, PT, DPT [facility]
[2018-08-18 16:00] VITALS: BP 130/92; PULSE 94; RESP 18; TEMP 37; O2SAT 97
--- NOTE | 2018-08-18 18:17 | W.PM.PROGNOT ---
Date of Service Date of service: 08/18/18 Time of Service: 18:18 Assessment and Plan (1) Acute colitis: Current visit: Yes Status: Acute Potential colitis of the ascending colon, but with C.Diff negative. PO Vanco and IV Metronidazole discontinued. Again appears improved this morning. Continue to monitor. 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 Currently appears at baseline mental status. Continue current Clonazepam dosing. Plan will be for a very slow taper planned over a 6 month course. Continues to appear stable and at baseline mental status. (3) Altered mental status: Current visit: Yes Status: Resolved Confirmed catatonic state by psychiatry, likely precipitated by witholding of chronic psych meds over initial course of hospitalization. Responded well to Benzo therapy as above, now back to baseline. EEG and MRI X2 were negative. (4) Dysphagia: Current visit: Yes Status: Acute History of benign distal esophageal stricture by EGD, s/p dilation in 2007. There was also noted Unprotected aspiration as well as large GERD with evidence of esophagitis. However, repeat EGD here normal and Barium Swallow performed this hospitalization with no evidence of stricture, but with esophageal dysmotility and retention of barium in the esophagus. Patient treated for Aspiration pneumonia now on seperate occasions - s/p PEG tube placement 07/19. Maintaining NPO status with continued Tube Feeds. Also restarted home meds via Peg Tube, with continued aspiration precautions. Currently on QHS Imipramine. Also on treatment of GERD with PPI therapy. Will ultimately need outpatient manometry. Of note, had been having problems with initiation of swallowing which appeared new and likely related to her altered mental status/catatonic state from withholding of her psych medications. She has undergone repeat speech evaluation and now able to initiate swallowing well, but with continued and significant discomfort after due to her Esophageal Dysmotility. Will need outpatient GI work-up with manometry. (5) Esophageal dysmotility: Current visit: Yes Status: Acute Treatment as above. (6) Hypotension: Current visit: Yes Status: Resolved Initially, hypotensive to the point of requiring pressor support, and with evidence of end-organ damage with KJ and elevation in Lactate - unknown etiology. Potential Dehydration in the setting of initiation of HCTZ vs. Sepsis - although no evidence of infiltrate or acute infection initially. Does not appear to have been adrenal insufficiency, with steroids weaned off. Echo without clear cardiogenic etiology, and no persistent arrhythmias on monitor. Aspiration pneumonia/recurrent aspiration events now seem like the most likely scenario. Resolved. (7) Bradycardia: Current visit: No Status: Resolved Abnormally normal heart rate during initial bout of hypotension, then frankly bradycardic - reportedly had a bout of junctional rhythm as well. However, review of EKG by Cardiology/Electrophysiology with note of Sinus Bradycardia. Avoid jovan agents - also with tachycardia noted. 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 (8) Hypernatremia: Current visit: Yes Status: Resolved Resolved. Continue Tube Feeds, and Free Water via Peg Tube. Of note, patient with occasional bibasilar crackles and subjective dyspnea which responds to prn administration of lasix. Continue previously decreased free water and diuretic therapy, and monitor weight and lytes carefully - Current weight of 90 Kg - dry weight appears to be at 91-92 kg. Decrease lasix dose and frequency today and continue to monitor (9) KJ (acute kidney injury): Current visit: Yes Status: Resolved Creatinine stable. (10) Anemia: Current visit: Yes Status: Chronic Stable but low hgb, heme negative stool. Iron studies with low iron, low TIBC, and low ferritin. B12 normal but wit low FA. TSH normal as well. Continue PPI therapy, Ferrous sulfate, Vitamin C, and Folic Acid supplements. Hgb remains low but stable. (11) Catheter-associated urinary tract infection: Current visit: Yes Status: Acute Catheter was changed 08/11/18 and removed 08/14/18. Culture with pansensitive Pseudomonas. Repeat urinalysis negative. Discontinued Zosyn on 08/16. (12) Urinary retention: Current visit: Yes Status: Acute Likely based on use of Benzodiazepines. Void trial unsuccessful. Reinitiated Campbell. (13) DVT prophylaxis: Current visit: Yes Status: Acute Continue Enoxaparin. (14) Advance directive on file: Current visit: Yes Status: Acute DNR/DNI. Subjective Interval history since last seen: 63-year-old woman with history of cognitive delay and Hypertension, admitted from [facility] Emergency Department with a diagnosis of Hypotension. Ms. Gardiner has a history of cognitive dysfunction, HTN, GERD, and Schizophrenia. She was initially sent to the emergency room because of several days of nonspecific weakness. In the ED she was noted to be significantly hypotensive with blood pressures in the 60s systolic, but without tachycardia. She was given fluid resuscitation and started on levophed. Initial laboratory evaluation of note for leukocytosis, low-grade pyuria (5-10 white cells), negative chest x-ray and CT of the abdomen that was unremarkable except for a known cyst in the right lower quadrant. She was then referred for admission for further evaluation and treatment. Since her admission Blood pressure eventually improved and she has remained off pressor support after recurrence of her hypotension, thought likely secondary to aspiration pneumonia/pneumonitis. Her Urine and Blood Cultures have remained negative, and her C. Diff and Fecal Leukocytes were negative as well. CT of the chest and ECHO have been normal. She did however show evidence of difficulty with swallowing, and a Barium Swallow revealed evidence of barium retention and esophageal dysmotility. Subsequent EGD was negative. Mrs. Gardiner had remained NPO and without oral meds or food for quite some time - successfully underwent PEG tube placement on 07/19 and restarted on her home medications. The Patient is an extremely pleasant and stable woman, previously highly independent and living on her own. Her mental status declined significantly from her baseline - become essentially nonverbal and not following commands. Thought to be likely catatonia psychiatry was consulted and confirmed diagnosis. She was moved to the ICU and given trial of benzodiazepine therapy with excellent success. She is now awake and alert and appears back to baseline mental status. Ms. Gardiner underwent a repeat speech evaluation with improved ability to swallow with return of her mental status, but as expected with a great deal of esophageal dysphagia and resultant discomfort given her esophageal dysmotility. She was discovered to have a UTI, with pansensitive Pseudomonas that was treated with another course of antibiotics, as well as comploints of abdominal pain with evidence of potential Colitis of the ascending colon by CT. Repeat C.Diff returned negative, and repeat urinalysis was normal as well - patient's antibiotics have been held. She continued to exhibit urinary retention post campbell discontinuation, with >500-600 cc's post void, and had campbell cath reinserted. Her weight has declined significantly with diuresis. Plan is for eventual SNF placement for skilled rehab - currently awaiting placement options. She reports continued but much improved RLQ abdominal pain this morning. No other events reported. Remains afebrile. Exam Narrative Exam Narrative: General: Patient awake at time of visit, alert and at baseline mental status. NAD. Neck: Supple CV: Regular, nontachycardic, S1S2, No rubs, murmurs, or gallops. Pulmonary: Resolution of mild bibasilar crackles. Abdomen: + Bowel Sounds, soft, nondistended. RLQ seroma unchanged. PEG Tube site clean. Minimal but continued RLQ pain on palpation - no rebound. Vascular: No lower extremity edema Psych: Mood and affect at patient's baseline. Objective Objective Clinical Data: Abnormal lab results 08/18/18 Range/Units 06:15 RBC 3.77 L (4.00-5.20) m/cumm Hgb 9.5 L (12.0-15.5) g/dL Hct 32.4 L (36.0-46.0) % MCH 25.2 L (27.0-33.0) pg MCHC 29.3 L (32.0-36.0) g/dL RDW 19.2 H (11.7-14.6) % MPV 11.4 H (8.0-11.0) fL Absolute Monocytes 0.88 H (0.11-0.7) k/cumm Vital Signs Temperature 37.0 C 08/18/18 16:00 Temperature Source Tympanic 08/18/18 16:00 Pulse 94 H 08/18/18 16:00 Pulse Rhythm Regular 08/18/18 13:45 Pulse 94 H 07/30/18 16:43 Respiratory Rate 18 08/18/18 16:00 Respiratory Effort 08/17/18 19:50 Respiratory Depth Shallow 08/17/18 19:50 Respiratory Pattern Normal 08/17/18 19:50 Blood Pressure 130/92 H 08/18/18 16:00 Blood Pressure Mean 115 07/30/18 16:43 Blood Pressure Position Supine 07/30/18 16:46 Pulse Oximetry 97 08/18/18 16:00 Respiratory End-tidal CO2 34 07/07/18 15:01 Oxygen Delivery Method Room Air 08/18/18 16:00 Oxygen Flow Rate 0 08/18/18 16:00 Fraction of Inspired Oxygen (FIO2) 28 07/16/18 00:30 Pain Level 5 08/14/18 09:27 Comment 08/13/18 04:30 Intake & Output 08/17/18 08/18/18 08/18/18 23:59 11:59 23:59 Intake Total 780 / 1560 780 / 1170 390 / 1170 Output Total 1974 1800 / 2200 400 / 2200 Balance -1195 / -2415 -1020 / -1030 -10 / -1030 Weight 89.6 kg Intake: Intake, Tube Feeding Amount 780 / 1560 780 / 1170 390 / 1170 Output: Urine 1974 1800 / 2200 400 / 2200 Output, Residual 0 / 0 0 / 0 0 / 0 Other: Urine Color Yellow Yellow Yellow Urine Appearance Clear Clear Cloudy Comment scanned for 510-583cc after a less than 50cc void Stool Size Moderate Stool Characteristics Soft Liquid Green Voiding Methods Bedside Commode Laboratory Results WBC 8.60 k/cumm (4.4-10.8) 08/18/18 06:15 RBC 3.77 m/cumm (4.00-5.20) L 08/18/18 06:15 Hgb 9.5 g/dL (12.0-15.5) L 08/18/18 06:15 Hct 32.4 % (36.0-46.0) L 08/18/18 06:15 MCV 85.9 fL (80-95) 08/18/18 06:15 MCH 25.2 pg (27.0-33.0) L 08/18/18 06:15 MCHC 29.3 g/dL (32.0-36.0) L 08/18/18 06:15 RDW 19.2 % (11.7-14.6) H 08/18/18 06:15 Plt Count 382 x1000/uL (130-400) 08/18/18 06:15 MPV 11.4 fL (8.0-11.0) H 08/18/18 06:15 Abs Immat Gran (auto) Cancelled 07/13/18 08:05 Immature Gran % 0.2 08/18/18 06:15 Neutrophils % 62.4 08/18/18 06:15 Band Neutrophils % Cancelled 07/13/18 08:05 Lymphocytes % 20.9 08/18/18 06:15 Atypical Lymphs % Cancelled 07/13/18 08:05 Monocytes % 10.2 08/18/18 06:15 Eosinophils % 5.7 08/18/18 06:15 Basophils % 0.6 08/18/18 06:15 Absolute Neutrophils 5.36 k/cumm (1.2-6.7) 08/18/18 06:15 Absolute Lymphocytes 1.80 k/cumm (1.2-3.4) 08/18/18 06:15 Absolute Monocytes 0.88 k/cumm (0.11-0.7) H 08/18/18 06:15 Absolute Eosinophils 0.49 k/cumm (0.0-0.7) 08/18/18 06:15 Absolute Basophils 0.05 k/cumm (0.0-0.2) 08/18/18 06:15 Metamyelocytes Cancelled 07/13/18 08:05 Myelocytes Cancelled 07/13/18 08:05 Promyelocytes Cancelled 07/13/18 08:05 Nucleated RBCs Cancelled 07/13/18 08:05 Differential Comment Rbc morph reviewed 08/18/18 06:15 Other Cell Type Cancelled 07/13/18 08:05 RBC Morphology See below 08/18/18 06:15 Polychromasia Present 08/18/18 06:15 Hypochromasia 1+ 08/18/18 06:15 Poikilocytosis 1+ 08/18/18 06:15 Basophilic Stippling Present 08/18/18 06:15 Anisocytosis 2+ 08/18/18 06:15 Microcytosis 2+ 07/26/18 05:47 Macrocytosis Cancelled 07/13/18 08:05 Spherocytes Cancelled 07/13/18 08:05 Target Cells Cancelled 07/13/18 08:05 Tear Drop Cells Cancelled 07/13/18 08:05 Ovalocytes 2+ 07/26/18 05:47 Stomatocytes Cancelled 07/13/18 08:05 [place] Bodies Cancelled 07/13/18 08:05 [place] Cells Cancelled 07/13/18 08:05 Acanthocytes (Spur) Cancelled 07/13/18 08:05 Schistocytes 1+ 07/26/18 05:47 D-Dimer 1329 ng/mlFEU (<500) H 07/07/18 21:15 Sodium 145 mmol/L (136-145) 08/17/18 06:50 Potassium 3.6 mmol/L (3.5-5.1) 08/17/18 06:50 Chloride 104 mmol/L (98-107) 08/17/18 06:50 Carbon Dioxide 33.4 mmol/L (21.0-32.0) H 08/17/18 06:50 Anion Gap 7.6 mmol/L (3-11) 08/17/18 06:50 BUN 26 mg/dL (7-18) H 08/17/18 06:50 Creatinine 0.67 mg/dL (0.55-1.02) 08/17/18 06:50 Estimated GFR/1.73 m2 >= 60.00 (mL/min/1.73m2) 08/17/18 06:50 Glucose 111 mg/dL (70-100) H 08/17/18 06:50 Lactate 1.0 mmol/L (0.6-1.4) 07/06/18 07:20 Calcium 8.9 mg/dL (8.5-10.1) 08/17/18 06:50 Magnesium 1.9 mg/dL (1.8-2.4) 08/18/18 06:15 Iron 20 ug/dL (50-175) L 07/25/18 16:13 TIBC 235 ug/dL (250-450) L 07/25/18 16:13 Transferrin % Sat 9 % (15-50) L 07/25/18 16:13 Ferritin 35 ng/mL (8-388) 07/25/18 16:13 Total Bilirubin 0.3 mg/dL (0.2-1.0) 07/12/18 05:50 Conjugated Bilirubin 0.10 mg/dL (0.00-0.20) 07/12/18 05:50 AST 24 U/L (15-37) 07/12/18 05:50 ALT 47 U/L (12-78) 07/12/18 05:50 Alkaline Phosphatase 65 U/L (46-116) 07/12/18 05:50 Ammonia < 10 umol/L (11-32) L 07/15/18 10:20 Troponin I 0.02 ng/mL (0.00-0.06) 07/08/18 05:00 NT-Pro-B Natriuret Pep 744 pg/mL (-299) H 07/31/18 19:52 Total Protein 4.6 g/dL (6.4-8.2) L 07/12/18 05:50 Albumin 2.2 g/dL (3.4-5.0) L 07/12/18 05:50 Lipase 252 U/L (73-393) 07/04/18 13:15 Vitamin B12 471 pg/mL (193-986) 07/25/18 16:13 Folate 8.0 ng/mL (8.6-20.0) L 07/25/18 16:13 Procalcitonin <0.10 ng/mL (<or=1.5) 07/08/18 06:24 Calcitonin Cancelled 07/08/18 06:24 TSH 1.09 uIU/mL (0.358-3.74) 07/06/18 07:20 Urine Color Yellow (Yellow) 08/15/18 22:50 Urine Clarity Clear 08/15/18 22:50 Urine pH 7.0 (5-8) 08/15/18 22:50 Ur Specific Premium 1.015 (1.005-1.025) 08/15/18 22:50 Urine Protein Negative mg/dL (Negative) 08/15/18 22:50 Urine Ketones Negative mg/dL (Negative) 08/15/18 22:50 Urine Blood Negative (Negative) 08/15/18 22:50 Urine Nitrite Negative (Negative) 08/15/18 22:50 Urine Bilirubin Negative (Negative) 08/15/18 22:50 Urine Urobilinogen 0.2 EU/dL (Up TO 0.2) 08/15/18 22:50 Ur Leukocyte Esterase Negative (Negative) 08/15/18 22:50 Urine RBC >50 (0-2) H 08/11/18 16:18 Urine WBC 20-50 HPF (0-5) 08/11/18 16:18 Ur Epithelial Cells Few HPF (Negative) 08/11/18 16:18 Urine Crystals Negative HPF (Negative) 08/11/18 16:18 Urine Bacteria Moderate HPF (Negative) 08/11/18 16:18 Urine Casts Negative LPF (Negative) 08/11/18 16:18 Urine Mucus Trace (Negative) 08/11/18 16:18 Urine Other Rare renal (Negative) 08/11/18 11:45 Ur Culture Indicated? Yes 08/11/18 16:18 Urine Glucose Negative mg/dL (Negative) 08/15/18 22:50 Stool Campylobacter PCR See comments 07/06/18 12:45 Stl C.difficile Tox PCR Cancelled 08/15/18 07:36 Stool Salmonella PCR See comments 07/06/18 12:45 Stool Shigella PCR See comments 07/06/18 12:45 Vancomycin Trough 18.9 ug/mL (10.0-20.0) 07/20/18 06:17 C.difficile Tox Source Cancelled 08/15/18 07:36 Shiga Toxin (PCR) See comments 07/06/18 12:45 Path Cons Comment See comment 07/06/18 07:20 Miscellaneous Test Cancelled 07/08/18 06:24
[2018-08-18 20:06] VITALS: BP 137/96; PULSE 100; RESP 19; TEMP 37; O2SAT 97
[2018-08-18] MEDS: clonazePAM 1 MG TAB PO (21:24)
[2018-08-18] MEDS: OLANZapine 5 MG TAB 10 MG UD (21:24)
[2018-08-18] MEDS: Donepezil 5 MG TAB 10 MG UD (21:25)
[2018-08-18] MEDS: Albuterol/Ipratropium 3 ML UPD VIAL UPD (21:45)
[2018-08-18 23:22] VITALS: BP 126/67; PULSE 94; RESP 18; TEMP 37.1; O2SAT 97
[2018-08-19 03:43] VITALS: BP 104/70; PULSE 90; RESP 22; TEMP 36; O2SAT 96
[2018-08-19 07:29] LABS: Anion Gap 6.7 mmol/L (3-11); BUN 33 mg/dL (7-18); CO2 35.3 mmol/L (21.0-32.0); Calcium 9.3 mg/dL (8.5-10.1); Chloride 105 mmol/L (98-107); Glucose 88 mg/dL (70-100); Potassium 3.5 mmol/L (3.5-5.1); Sodium 147 mmol/L (136-145)
[2018-08-19 07:30] LABS: Abs Immature Grans 0.03 k/cumm (0.0-0.09); Absolute Basophil Count 0.05 k/cumm (0.0-0.2); Absolute Eosinophil Count 0.56 k/cumm (0.0-0.7); Absolute Lymphocyte Count 2.23 k/cumm (1.2-3.4); Absolute Monocyte Count 0.79 k/cumm (0.11-0.7); Absolute Neutrophil Count 4.74 k/cumm (1.2-6.7); Basophils % 0.6; Eosinophils % 6.7; HCT 32.2 % (36.0-46.0); HGB 9.4 g/dL (12.0-15.5); Immature Grans % 0.4; Lymphocytes % 26.5; Mean Corp. HGB Concentration 29.2 g/dL (32.0-36.0); Mean Corpuscular Hemoglobin 25.1 pg (27.0-33.0); Mean Corpuscular Volume 85.9 fL (80-95); Mean Platelet Volume 11.4 fL (8.0-11.0); Monocytes % 9.4; Neutrophils % 56.4; Platelet Count 351 x1000/uL (130-400); RBC 3.75 m/cumm (4.00-5.20); RBC Distribution Width 18.9 % (11.7-14.6)
[2018-08-19 07:31] VITALS: BP 107/72; PULSE 86; RESP 22; TEMP 36.4; O2SAT 97
--- NOTE | 2018-08-19 08:51 | PDOC.CMPRO ---
Care Management Progress Note S/O: Christie will discharge to [facility] when ready per MD; likely as soon as tomorrow. CM faxed updated clinicals and orders to the [facility] for ongoing discharge planning. Per MD, Cheryle will require close follow up with Urology and will discharge with campbell in place. CM will attempt follow up coordination for Manometry through [email or web address] [place]. reports she will complete MD-MD with regarding monitioring of psychotropic meds and concerns around prior catatonia. A: 63 yo disabled female admitted for hypotension, aspiration pneumonia now with a PEG tube placement. P: Cheryle will discharge to [facility] when ready per MD. She will likely transfer via W/C [id number] vehicle with family. Christie remains pleasant in interaction and continues to make good effort working with PT/OT/Speech/Psych/Nutrition and medical staff. CM will continue to provide support ongoing discharge planning and disposition.
[2018-08-19] MEDS: Nystatin POWDER 60 GM JAR TP ×2 (08:52→23:04)
[2018-08-19] MEDS: Ferrous Sulfate 44 MG/ML Liquid 325 MG NG ×2 (08:52→21:06)
[2018-08-19] MEDS: clonazePAM 1 MG TAB 1.5 MG PO (08:52)
[2018-08-19] MEDS: Potassium Chloride Liquid 20 MEQ PKT 40 MEQ NG (08:52)
[2018-08-19] MEDS: Pantoprazole 40 MG VIAL IVP ×2 (08:52→21:07)
[2018-08-19] MEDS: amLODIPine 5 MG TAB PO (08:53)
[2018-08-19] MEDS: Enoxaparin 40 MG/0.4 ML SYR SC (08:53)
[2018-08-19] MEDS: Methimazole 5 MG TAB 10 MG UD (08:53)
[2018-08-19] MEDS: Normal Saline Flush 10 ML SYR IVP (08:53)
[2018-08-19] MEDS: Normal Saline Flush 10 ML SYR 20 ML IVP ×2 (08:53→23:03)
[2018-08-19] MEDS: Furosemide 40 MG TAB PO (08:54)
[2018-08-19] MEDS: Cyanocobalamin 500 MCG TAB 1000 MCG NG (08:54)
[2018-08-19] MEDS: Memantine 5 MG TAB 10 MG UD ×2 (08:54→21:07)
[2018-08-19] MEDS: Ascorbic Acid 500 MG TAB NG ×2 (08:54→21:07)
[2018-08-19] MEDS: Folic Acid 1 MG TAB NG (08:54)
--- NOTE | 2018-08-19 08:57 | CMPROGNOTE_ITS ---
Care Management Progress Note S/O: Christie will discharge to [facility] when ready per MD; likely as soon as tomorrow. CM faxed updated clinicals and orders to the [facility] for ongoing discharge planning. Per MD, Cheryle will require close follow up with Urology and will discharge with campbell in place. CM will attempt follow up coordination for [email or web address] reports she will complete MD-MD with regarding monitioring of psychotropic meds and concerns around prior catatonia. A: 63 yo disabled female admitted for hypotension, aspiration pneumonia now with a PEG tube placement. P: Cheryle will discharge to [facility] when ready per MD. She will likely transfer via W/C [id number] vehicle with family. Christie remains pleasant in interaction and continues to make good effort working with PT/OT/Speech/Psych/Nutrition and medical staff. CM will continue to provide support ongoing discharge planning and disposition.
--- NOTE | 2018-08-19 10:53 | OT.INTREAT ---
Date of service: 08/19/18 Time of Service: 08:20 Occupational Therapy Notes Occupational Therapy Inpatient Treatment Note Date: 08/19/18 PRECAUTIONS: NPO, Fall, standard SUBJECTIVE: Pt was sitting in chair when OT arrived. She was agreeable to OT session. OBJECTIVE: PAIN:no c/o pain FUNCTIONAL MOBILITY Sit-stand: CGA, 4WW Stand-sit: CGA, 4WW Bed-Chair: CGA, 4WW Chair-bed: CGA, 4WW BATHING: Upper Body: Standing at sink (I) CG, 4WW, (I) face, mod (A) underarms. Pt in sitting was (I) abdomen. Lower Body: Performed with NURSING HOME SOCIAL WORKER prior to OT session per NURSING HOME SOCIAL WORKER report DRESSING: Upper Extremity: Standing with 4WW and CGA pt required min (A) for donning and doffing hospital gown. GROOMING: Standing at sink with 4ww and CGA pt required min vc for teeth brushing. ASSESSMENT: Pt demonstrated increased functional activity tolerance during todays session and was able to perform ADL routine standing at sink with minimal breaks and min vc for standing balance. Pt was able to perform functional dynamic movements in the frontal and saggital plane with slight deviation in stance which is improved from prior sessions. Pt would benefit from continued skilled OT intervention for progression of ADLs and increased functional activity tolerance. PLAN: Progression of functional activity tolerance and ADLs in the standing position TREATMENT CODES/TIME: [id number], 25minutes (08:20) [facility]
[2018-08-19] MEDS: Potassium Chloride 20 MEQ TABCR 40 MEQ PO (10:57)
[2018-08-19] MEDS: Loperamide 2 MG CAP PO (10:57)
--- NOTE | 2018-08-19 11:01 | OTTR_ITS ---
Date of service: 08/19/18 Time of Service: 08:20 Occupational Therapy Notes Occupational Therapy Inpatient Treatment Note Date: 08/19/18 PRECAUTIONS: NPO, Fall, standard SUBJECTIVE: Pt was sitting in chair when OT arrived. She was agreeable to OT session. OBJECTIVE: PAIN:no c/o pain FUNCTIONAL MOBILITY Sit-stand: CGA, 4WW Stand-sit: CGA, 4WW Bed-Chair: CGA, 4WW Chair-bed: CGA, 4WW BATHING: Upper Body: Standing at sink (I) CG, 4WW, (I) face, mod (A) underarms. Pt in sitting was (I) abdomen. Lower Body: Performed with SALESPERSON PARTS prior to OT session per SALESPERSON PARTS report DRESSING: Upper Extremity: Standing with 4WW and CGA pt required min (A) for donning and doffing hospital gown. GROOMING: Standing at sink with 4ww and CGA pt required min vc for teeth brushing. ASSESSMENT: Pt demonstrated increased functional activity tolerance during todays session and was able to perform ADL routine standing at sink with minimal breaks and min vc for standing balance. Pt was able to perform functional dynamic movements in the frontal and saggital plane with slight deviation in stance which is improved from prior sessions. Pt would benefit from continued skilled OT intervention for progression of ADLs and increased functional activity tolerance. PLAN: Progression of functional activity tolerance and ADLs in the standing position TREATMENT CODES/TIME: [id number], 25minutes (08:20) [facility]
[2018-08-19 11:15] VITALS: BP 119/82; PULSE 94; RESP 20; TEMP 36.4; O2SAT 97
--- NOTE | 2018-08-19 12:35 | PT.INTREAT ---
Date of service: 08/19/18 Time of Service: 12:35 PT Notes 08/19/18 SUBJECTIVE: Christie stating her swelling in her legs are improved this morning and she does not have pain in her left foot. OBJECTIVE: Pt seen for two sessions of PT today. TRANSFERS Sit to stand: SBA Stand to sit: SBA GAIT Device: 4WW Weight bearing: Full Assist: CGA Distance: 30'+10' in the AM, 25' in the PM THEREX: UE/LE strengthening performed using green resistance band for her UE's. She also performs prolong standing at the sink 2x5 minutes. See flow sheet for all details. ASSESSMENT: Pt improves on her gait distance today as well as her confidence with her gait. Progressing slow but steady. PLAN: Continue current POC progressing toward's established goals. Session # 1: 8:20-8:50 [id number], [id number] Session # 2: 12:05-12:30 [id number], [id number] Alice Howard, MANAGED CARE DIRECTOR
--- NOTE | 2018-08-19 15:13 | PGE_ITS ---
Date of Service Date of service: 08/19/18 Time of Service: 15:06 Assessment and Plan (1) Acute colitis: Current visit: Yes Status: Acute Potential colitis of the ascending colon, with pain located in the RLQ. C.Diff negative, with PO Vanco and IV Metronidazole discontinued. Again appears improved this morning and reports essentially resolved symptoms. Continue to monitor. 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 Currently appears at baseline mental status. Continue current Clonazepam dosing. Plan will be for a very slow taper planned over a 6 month course. Continues to appear stable and at baseline mental status. (3) Altered mental status: Current visit: Yes Status: Resolved Confirmed catatonic state by psychiatry, likely precipitated by witholding of chronic psych meds over initial course of hospitalization. Responded well to Benzo therapy as above, now back to baseline. EEG and MRI X2 were negative. (4) Dysphagia: Current visit: Yes Status: Acute History of benign distal esophageal stricture by EGD, s/p dilation in 2007. There was also noted Unprotected aspiration as well as large GERD with evidence of esophagitis. However, repeat EGD here normal and Barium Swallow performed this hospitalization with no evidence of stricture, but with esophageal dysmotility and retention of barium in the esophagus. Patient treated for Aspiration pneumonia now on seperate occasions - s/p PEG tube placement 07/19. Maintaining NPO status with continued Tube Feeds. Also restarted home meds via Peg Tube, with continued aspiration precautions. Currently on QHS Imipramine. Also on treatment of GERD with PPI therapy. Will ultimately need outpatient manometry. Of note, had been having problems with initiation of swallowing which appeared new and likely related to her altered mental status/catatonic state from withholding of her psych medications. She has undergone repeat speech evaluation and now able to initiate swallowing well, but with continued and significant discomfort after due to her Esophageal Dysmotility. Will need outpatient GI work-up with manometry. (5) Esophageal dysmotility: Current visit: Yes Status: Acute Treatment as above. (6) Hypotension: Current visit: Yes Status: Resolved Initially, hypotensive to the point of requiring pressor support, and with evidence of end-organ damage with KJ and elevation in Lactate - unknown etiology. Potential Dehydration in the setting of initiation of HCTZ vs. Sepsis - although no evidence of infiltrate or acute infection initially. Does not appear to have been adrenal insufficiency, with steroids weaned off. Echo without clear cardiogenic etiology, and no persistent arrhythmias on monitor. Aspiration pneumonia/recurrent aspiration events now seem like the most likely scenario. Resolved. (7) Bradycardia: Current visit: No Status: Resolved Abnormally normal heart rate during initial bout of hypotension, then frankly bradycardic - reportedly had a bout of junctional rhythm as well. However, review of EKG by Cardiology/Electrophysiology with note of Sinus Bradycardia. Avoid jovan agents - also with tachycardia noted. 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 (8) Hypernatremia: Current visit: Yes Status: Resolved Resolved. Continue Tube Feeds, and Free Water via Peg Tube. Of note, patient with occasional bibasilar crackles and subjective dyspnea which responds to prn administration of lasix. Continue previously decreased free water and diuretic therapy, and monitor weight and lytes carefully - Current weight of 90 Kg - dry weight appears to be at 91-92 kg. Continue current decreased lasix dose and continue to monitor. (9) KJ (acute kidney injury): Current visit: Yes Status: Resolved Creatinine stable. (10) Anemia: Current visit: Yes Status: Chronic Stable but low hgb, heme negative stool. Iron studies with low iron, low TIBC, and low ferritin. B12 normal but wit low FA. TSH normal as well. Continue PPI therapy, Ferrous sulfate, Vitamin C, and Folic Acid supplements. Hgb remains low but stable. (11) Catheter-associated urinary tract infection: Current visit: Yes Status: Acute Catheter was changed 08/11/18 and removed 08/14/18. Culture with pansensiti ve Pseudomonas. Repeat urinalysis negative. Discontinued Zosyn on 08/16. (12) Urinary retention: Current visit: Yes Status: Acute Likely based on use of Benzodiazepines. Void trial unsuccessful. Reinitiated Campbell. (13) DVT prophylaxis: Current visit: Yes Status: Acute Continue Enoxaparin. (14) Advance directive on file: Current visit: Yes Status: Acute DNR/DNI. Subjective Interval history since last seen: 63-year-old woman with history of cognitive delay and Hypertension, admitted from [facility] Emergency Department with a diagnosis of Hypotension. Ms. Gardiner has a history of cognitive dysfunction, HTN, GERD, and Schizophrenia. She was initially sent to the emergency room because of several days of nonspecific weakness. In the ED she was noted to be significantly hypotensive with blood pressures in the 60s systolic, but without tachycardia. She was given fluid resuscitation and started on levophed. Initial laboratory evaluation of note for leukocytosis, low-grade pyuria (5-10 white cells), negative chest x-ray and CT of the abdomen that was unremarkable except for a known cyst in the right lower quadrant. She was then referred for admission for further evaluation and treatment. Since her admission Blood pressure eventually improved and she has remained off pressor support after recurrence of her hypotension, thought likely secondary to aspiration pneumonia/pneumonitis. Her Urine and Blood Cultures have remained negative, and her C. Diff and Fecal Leukocytes were negative as well. CT of the chest and ECHO have been normal. She did however show evidence of difficulty with swallowing, and a Barium Swallow revealed evidence of barium retention and esophageal dysmotility. Subsequent EGD was negative. Mrs. Gardiner had remained NPO and without oral meds or food for quite some time - successfully underwent PEG tube placement on 07/19 and restarted on her home medications. The Patient is an extremely pleasant and stable woman, previously highly independent and living on her own. Her mental status declined significantly from her baseline - become essentially nonverbal and not following commands. Thought to be likely catatonia psychiatry was consulted and confirmed diagnosis. She was moved to the ICU and given trial of benzodiazepine therapy with excellent success. She is now awake and alert and appears back to baseline mental status. She also underwent a repeat speech evaluation with improved ability to swallow with return of her mental status, but as expected with a great deal of esophageal dysphagia and resultant discomfort given her esophageal dysmotility. She was discovered to have a UTI, with pansensitive Pseudomonas that was treated with another course of antibiotics, as well as comploints of abdominal pain with evidence of potential Colitis of the ascending colon by CT. Repeat C.Diff returned negative, and repeat urinalysis was normal as well - patient's antibiotics have been held, and she continues to feel improved from an abdominal pain standpoint. She continued to exhibit urinary retention post campbell discontinuation, with >500-600 cc's post void, and had campbell cath reinserted. Her weight has declined significantly with diuresis. Plan is for eventual SNF placement for skilled rehab - currently awaiting placement options. She reports continued but much improved RLQ abdominal pain this morning. No other events reported. Remains afebrile. Exam Narrative Exam Narrative: General: Patient awake at time of visit, alert and at baseline mental status. NAD. Neck: Supple CV: Regular, nontachycardic, S1S2, No rubs, murmurs, or gallops. Pulmonary: Resolution of mild bibasilar crackles. Abdomen: + Bowel Sounds, soft, nondistended. RLQ seroma unchanged. PEG Tube site clean. No further RLQ pain on palpation - no rebound. Vascular: No lower extremity edema Psych: Mood and affect at patient's baseline. Objective Objective Clinical Data: Abnormal lab results 08/19/18 08/19/18 Range/Units 06:20 06:20 RBC 3.75 L (4.00-5.20) m/cumm Hgb 9.4 L (12.0-15.5) g/dL Hct 32.2 L (36.0-46.0) % MCH 25.1 L (27.0-33.0) pg MCHC 29.2 L (32.0-36.0) g/dL RDW 18.9 H (11.7-14.6) % MPV 11.4 H (8.0-11.0) fL Absolute Monocytes 0.79 H (0.11-0.7) k/cumm Sodium 147 H (136-145) mmol/L Carbon Dioxide 35.3 H (21.0-32.0) mmol/L BUN 33 H (7-18) mg/dL Vital Signs Temperature 36.4 C L 08/19/18 11:15 Temperature Source Tympanic 08/19/18 11:15 Pulse 94 H 08/19/18 11:15 Pulse Rhythm Regular 08/19/18 08:50 Pulse 94 H 07/30/18 16:43 Respiratory Rate 20 08/19/18 11:15 Respiratory Effort Non-Labored 08/19/18 08:50 Respiratory Depth Shallow 08/19/18 08:50 Respiratory Pattern Normal 08/19/18 08:50 Blood Pressure 119/82 08/19/18 11:15 Blood Pressure Mean 115 07/30/18 16:43 Blood Pressure Position Supine 07/30/18 16:46 Pulse Oximetry 97 08/19/18 11:15 Respiratory End-tidal CO2 34 07/07/18 15:01 Oxygen Delivery Method Room Air 08/19/18 11:15 Oxygen Flow Rate 0 08/19/18 11:15 Fraction of Inspired Oxygen (FIO2) 28 07/16/18 00:30 Pain Level 5 08/14/18 09:27 Comment 08/13/18 04:30 Intake & Output 08/18/18 08/19/18 08/19/18 23:59 11:59 23:59 Intake Total 1170 / 1950 450 / 840 390 / 840 Output Total 2110 / 3910 0 / 1250 1250 / 1250 Balance -940 / -1960 450 / -410 -860 / -410 Weight 90.5 kg Intake: IV 60 / 60 Intake, Tube Feeding Amount 1170 / 1950 390 / 780 390 / 780 Output: Urine 2100 / 3900 1250 / 1250 Output, Residual 10 / 10 0 / 0 0 / 0 Other: Urine Color Yellow Yellow Urine Appearance Clear Clear Clear Comment Campbell bag changed as it was leaking all over floor. Stool Size Large Stool Characteristics Soft Formed Laboratory Results WBC 8.40 k/cumm (4.4-10.8) 08/19/18 06:20 RBC 3.75 m/cumm (4.00-5.20) L 08/19/18 06:20 Hgb 9.4 g/dL (12.0-15.5) L 08/19/18 06:20 Hct 32.2 % (36.0-46.0) L 08/19/18 06:20 MCV 85.9 fL (80-95) 08/19/18 06:20 MCH 25.1 pg (27.0-33.0) L 08/19/18 06:20 MCHC 29.2 g/dL (32.0-36.0) L 08/19/18 06:20 RDW 18.9 % (11.7-14.6) H 08/19/18 06:20 Plt Count 351 x1000/uL (130-400) 08/19/18 06:20 MPV 11.4 fL (8.0-11.0) H 08/19/18 06:20 Abs Immat Gran (auto) Cancelled 07/13/18 08:05 Immature Gran % 0.4 08/19/18 06:20 Neutrophils % 56.4 08/19/18 06:20 Band Neutrophils % Cancelled 07/13/18 08:05 Lymphocytes % 26.5 08/19/18 06:20 Atypical Lymphs % Cancelled 07/13/18 08:05 Monocytes % 9.4 08/19/18 06:20 Eosinophils % 6.7 08/19/18 06:20 Basophils % 0.6 08/19/18 06:20 Absolute Neutrophils 4.74 k/cumm (1.2-6.7) 08/19/18 06:20 Absolute Lymphocytes 2.23 k/cumm (1.2-3.4) 08/19/18 06:20 Absolute Monocytes 0.79 k/cumm (0.11-0.7) H 08/19/18 06:20 Absolute Eosinophils 0.56 k/cumm (0.0-0.7) 08/19/18 06:20 Absolute Basophils 0.05 k/cumm (0.0-0.2) 08/19/18 06:20 Metamyelocytes Cancelled 07/13/18 08:05 Myelocytes Cancelled 07/13/18 08:05 Promyelocytes Cancelled 07/13/18 08:05 Nucleated RBCs Cancelled 07/13/18 08:05 Differential Comment Rbc morph reviewed 08/18/18 06:15 Other Cell Type Cancelled 07/13/18 08:05 RBC Morphology See below 08/18/18 06:15 Polychromasia Present 08/18/18 06:15 Hypochromasia 1+ 08/18/18 06:15 Poikilocytosis 1+ 08/18/18 06:15 Basophilic Stippling Present 08/18/18 06:15 Anisocytosis 2+ 08/18/18 06:15 Microcytosis 2+ 07/26/18 05:47 Macrocytosis Cancelled 07/13/18 08:05 Spherocytes Cancelled 07/13/18 08:05 Target Cells Cancelled 07/13/18 08:05 Tear Drop Cells Cancelled 07/13/18 08:05 Ovalocytes 2+ 07/26/18 05:47 Stomatocytes Cancelled 07/13/18 08:05 [place] Bodies Cancelled 07/13/18 08:05 Girma Cells Cancelled 07/13/18 08:05 Acanthocytes (Spur) Cancelled 07/13/18 08:05 Schistocytes 1+ 07/26/18 05:47 D-Dimer 1329 ng/mlFEU (<500) H 07/07/18 21:15 Sodium 147 mmol/L (136-145) H 08/19/18 06:20 Potassium 3.5 mmol/L (3.5-5.1) 08/19/18 06:20 Chloride 105 mmol/L (98-107) 08/19/18 06:20 Carbon Dioxide 35.3 mmol/L (21.0-32.0) H 08/19/18 06:20 Anion Gap 6.7 mmol/L (3-11) 08/19/18 06:20 BUN 33 mg/dL (7-18) H 08/19/18 06:20 Creatinine 0.70 mg/dL (0.55-1.02) 08/19/18 06:20 Estimated GFR/1.73 m2 >= 60.00 (mL/min/1.73m2) 08/19/18 06:20 Glucose 88 mg/dL (70-100) 08/19/18 06:20 Lactate 1.0 mmol/L (0.6-1.4) 07/06/18 07:20 Calcium 9.3 mg/dL (8.5-10.1) 08/19/18 06:20 Magnesium 2.0 mg/dL (1.8-2.4) 08/19/18 06:20 Iron 20 ug/dL (50-175) L 07/25/18 16:13 TIBC 235 ug/dL (250-450) L 07/25/18 16:13 Transferrin % Sat 9 % (15-50) L 07/25/18 16:13 Ferritin 35 ng/mL (8-388) 07/25/18 16:13 Total Bilirubin 0.3 mg/dL (0.2-1.0) 07/12/18 05:50 Conjugated Bilirubin 0.10 mg/dL (0.00-0.20) 07/12/18 05:50 AST 24 U/L (15-37) 07/12/18 05:50 ALT 47 U/L (12-78) 07/12/18 05:50 Alkaline Phosphatase 65 U/L (46-116) 07/12/18 05:50 Ammonia < 10 umol/L (11-32) L 07/15/18 10:20 Troponin I 0.02 ng/mL (0.00-0.06) 07/08/18 05:00 NT-Pro-B Natriuret Pep 744 pg/mL (-299) H 07/31/18 19:52 Total Protein 4.6 g/dL (6.4-8.2) L 07/12/18 05:50 Albumin 2.2 g/dL (3.4-5.0) L 07/12/18 05:50 Lipase 252 U/L (73-393) 07/04/18 13:15 Vitamin B12 471 pg/mL (193-986) 07/25/18 16:13 Folate 8.0 ng/mL (8.6-20.0) L 07/25/18 16:13 Procalcitonin <0.10 ng/mL (<or=1.5) 07/08/18 06:24 Calcitonin Cancelled 07/08/18 06:24 TSH 1.09 uIU/mL (0.358-3.74) 07/06/18 07:20 Urine Color Yellow (Yellow) 08/15/18 22:50 Urine Clarity Clear 08/15/18 22:50 Urine pH 7.0 (5-8) 08/15/18 22:50 Ur Specific Elroy 1.015 (1.005-1.025) 08/15/18 22:50 Urine Protein Negative mg/dL (Negative) 08/15/18 22:50 Urine Ketones Negative mg/dL (Negative) 08/15/18 22:50 Urine Blood Negative (Negative) 08/15/18 22:50 Urine Nitrite Negative (Negative) 08/15/18 22:50 Urine Bilirubin Negative (Negative) 08/15/18 22:50 Urine Urobilinogen 0.2 EU/dL (Up TO 0.2) 08/15/18 22:50 Ur Leukocyte Esterase Negative (Negative) 08/15/18 22:50 Urine RBC >50 (0-2) H 08/11/18 16:18 Urine WBC 20-50 HPF (0-5) 08/11/18 16:18 Ur Epithelial Cells Few HPF (Negative) 08/11/18 16:18 Urine Crystals Negative HPF (Negative) 08/11/18 16:18 Urine Bacteria Moderate HPF (Negative) 08/11/18 16:18 Urine Casts Negative LPF (Negative) 08/11/18 16:18 Urine Mucus Trace (Negative) 08/11/18 16:18 Urine Other Rare renal (Negative) 08/11/18 11:45 Ur Culture Indicated? Yes 08/11/18 16:18 Urine Glucose Negative mg/dL (Negative) 08/15/18 22:50 Stool Campylobacter PCR See comments 07/06/18 12:45 Stl C.difficile Tox PCR Cancelled 08/15/18 07:36 Stool Salmonella PCR See comments 07/06/18 12:45 Stool Shigella PCR See comments 07/06/18 12:45 Vancomycin Trough 18.9 ug/mL (10.0-20.0) 07/20/18 06:17 C.difficile Tox Source Cancelled 08/15/18 07:36 Shiga Toxin (PCR) See comments 07/06/18 12:45 Path Cons Comment See comment 07/06/18 07:20 Miscellaneous Test Cancelled 07/08/18 06:24
[2018-08-19 16:06] VITALS: BP 130/92; PULSE 100; RESP 19; TEMP 36.6; O2SAT 98
[2018-08-19 20:16] VITALS: BP 135/96; PULSE 95; RESP 18; TEMP 36.2; O2SAT 98
[2018-08-19] MEDS: OLANZapine 5 MG TAB 10 MG UD (21:07)
[2018-08-19] MEDS: clonazePAM 1 MG TAB PO (21:09)
[2018-08-19] MEDS: Donepezil 5 MG TAB 10 MG UD (21:09)
[2018-08-20 03:25] VITALS: BP 114/77; PULSE 89; RESP 20; TEMP 36.6; O2SAT 95
[2018-08-20 07:24] LABS: Anion Gap 7.3 mmol/L (3-11); BUN 35 mg/dL (7-18); CO2 32.7 mmol/L (21.0-32.0); Calcium 9.5 mg/dL (8.5-10.1); Chloride 107 mmol/L (98-107); Glucose 98 mg/dL (70-100); Magnesium 1.9 mg/dL (1.8-2.4); Sodium 147 mmol/L (136-145)
[2018-08-20 07:46] LABS: Abs Immature Grans 0.02 k/cumm (0.0-0.09); Absolute Basophil Count 0.06 k/cumm (0.0-0.2); Absolute Eosinophil Count 0.55 k/cumm (0.0-0.7); Absolute Lymphocyte Count 2.03 k/cumm (1.2-3.4); Absolute Neutrophil Count 5.83 k/cumm (1.2-6.7); Basophils % 0.6; Eosinophils % 5.9; HCT 33.2 % (36.0-46.0); HGB 9.5 g/dL (12.0-15.5); Immature Grans % 0.2; Lymphocytes % 21.9; Mean Corp. HGB Concentration 28.6 g/dL (32.0-36.0); Mean Corpuscular Hemoglobin 24.7 pg (27.0-33.0); Mean Corpuscular Volume 86.2 fL (80-95); Mean Platelet Volume 11.6 fL (8.0-11.0); Monocytes % 8.6; Neutrophils % 62.8; Platelet Count 372 x1000/uL (130-400); RBC 3.85 m/cumm (4.00-5.20); RBC Distribution Width 18.9 % (11.7-14.6); White Blood Cell Count 9.29 k/cumm (4.4-10.8)
--- NOTE | 2018-08-20 08:39 | PDOC.CMDIS ---
LACE Index Scoring Tool - Questions: Length of Stay (in days): 14 or more Acuity (Admit via E.D.?): Yes E.D. Visits: 1 - Answers: Total Score: 11 Risk of Readmission: High Risk Care Management Discharge Reason for Hospitalization: Hypotension Discharge Plan: Cheryle will discharge to [facility] when ready per MD. She will transfer via W/C van coordinated by this rfp writer through RCT with Christie's [facility] benefit. notified iTny: [phone], Cheryle's sister who agreed to contact the family and deliver Cheryle's personal belongings to the rehab. Patient/Family Education Needs: Review of instructions, Palliative Care, SNF coordination, transfer process, insurance limitations. Services Needed at Discharge: [facility] Facility ([facility]), Transportation (W/C Van)
--- NOTE | 2018-08-20 08:43 | CMDISCH_ITS ---
LACE Index Scoring Tool - Questions: Length of Stay (in days): 14 or more Acuity (Admit via E.D.?): Yes E.D. Visits: 1 - Answers: Total Score: 11 Risk of Readmission: High Risk Care Management Discharge Reason for Hospitalization: Hypotension Discharge Plan: Cheryle will discharge to [facility] when ready per MD. She will transfer via W/C van coordinated by this press writer through RCT with Christie's [facility] benefit. notified Tiny: [phone], Cheryle's sister who agreed to contact the family and deliver Cheryle's personal belongings to the rehab. Patient/Family Education Needs: Review of instructions, Palliative Care, SNF coordination, transfer process, insurance limitations. Services Needed at Discharge: Custodial Facility ([facility]), Transportation (W/C Van)
[2018-08-20 09:01] VITALS: BP 150/116; PULSE 100; RESP 20; TEMP 35.8; O2SAT 95
[2018-08-20] MEDS: Normal Saline Flush 10 ML SYR 20 ML IVP (09:41)
[2018-08-20] MEDS: Enoxaparin 40 MG/0.4 ML SYR SC (09:41)
[2018-08-20] MEDS: Pantoprazole 40 MG VIAL IVP (09:42)
[2018-08-20] MEDS: Nystatin POWDER 60 GM JAR TP (09:42)
[2018-08-20] MEDS: Loperamide 2 MG CAP PO (09:43)
[2018-08-20] MEDS: Potassium Chloride Liquid 20 MEQ PKT 40 MEQ NG (09:43)
[2018-08-20] MEDS: amLODIPine 5 MG TAB PO (09:43)
[2018-08-20] MEDS: Memantine 5 MG TAB 10 MG UD (09:43)
[2018-08-20] MEDS: Furosemide 40 MG TAB PO (09:43)
[2018-08-20] MEDS: Folic Acid 1 MG TAB NG (09:45)
[2018-08-20] MEDS: Cyanocobalamin 500 MCG TAB 1000 MCG NG (09:45)
[2018-08-20] MEDS: Ascorbic Acid 500 MG TAB NG (09:45)
[2018-08-20] MEDS: Methimazole 5 MG TAB UD (09:45)
[2018-08-20] MEDS: Ferrous Sulfate 44 MG/ML Liquid 325 MG NG (09:52)
[2018-08-20] MEDS: Bacitracin 1 PACKET ×2 (09:53→11:21)
[2018-08-20 10:00] VITALS: O2SAT 95
--- NOTE | 2018-08-20 10:35 | OTDS_ITS ---
Date of service: 08/20/18 Time of Service: 09:30 Occupational Therapy Notes Occupational Therapy Inpatient Discharge Summary Date: 08/20/18 Dates of Service: 08/04/18-08/20/18 Referring Doctor:Dr. Sigala OT Orders: a Precautions: Fall, standard precautions PATIENT PROFILE/ADMITTING DIAGNOSIS: Pt is a 63 year old female who was admitted with c/o weakness, and found in the ER to be hypotensive last month. She has had a prolonged hospital stay, with a decline in medical status resulting in trans kamron to the ICU and is now being managed on Med Surg. Past Medical History:cognitive dysfunction; HTN; GERD; schizophrenia; Graves disease; esophageal stricture s/p dilation Social History/Home Situation:Prior to admission to [facility] she lived alone in [place] at an assisted living facility. Lives on second floor with elevator or 14 steps. Has family support by her sisters and care also provided by diabetes educator. Her baseline level of function for ADLs was (I). Equipment owned/DME: 4WW SUBJECTIVE: Pt was sitting in chair when OT arrived. She was agreeable to OT session. Nursing reports that pt is being discharged today to [facility]. OBJECTIVE: General Observation: PICC connected (L) UE, Bell, PEG tube Mental Status: Alert and aware of place and name Pain: no c/o pain ROM: RUE Shoulder AROM to 110*, wrist and hand WNL L UE Shoulder AROM to 110*, wrist and hand WNL STRENGTH: RUE 4/5 throughout globally LUE 4/5 throughout globally FUNCTIONAL MOBILITY/ADLS: Transfers Sit-stand: CGA, FWW Stand-sit: CGA, FWW Chair-sink: CGA, FWW, min vc Sink-Chair: CGA, FWW, min vc GROOMING Standing at sink with min vc for body positioning and mechanics and hand positioning pt performed teeth and hair brushing. She required vc for steps throughout teeth brushing process and kept trying to open the tooth paste when i t was already opened requiring multiple vc that it was already open. CGA required throughout routine and pt demonstrates need for vc to stand tall for safe body mechanics. Dressing: Sitting in chair pt is able to (I) don and doff [facility] gown. Max (A) (B) socks as pt denies this during OT sessions. TOILETING on commode with max (A) toileting hygiene. Pt is able to make it to toilet and perform this with min (A) but will go towards commode if it is closer. EATING NPO, Tube feedings only at this time. BALANCE: Static sitting Normal Dynamic Sitting Good Static Standing Fair Dynamic Standing Fair ASSESSMENT: Patient is a 63-year-old female referred to occupational therapy services with diagnosis of deconditioned, long hospitalization. She has been seen for a total of 11 skilled OT sessions. Pt demonstrated increased functional activity tolerance and is now able to perform grooming and UE bathing while standing at the sink with 4ww and CGA. Pt did perform bathing 1x in the shower with OT which she demonstrated increased (I) in the sitting position with vc for instructions. She functionally is still unable to don and doff (B) socks at this time and refuses to do so when asked. She has been performing her bathing routine standing at the sink for UE and sitting in the chair for LE. OT recommends that pt go to SNF when medically cleared per MD. Plan per nursing is for pt to be discharged today to [facility]. GOALS 1. Grooming standing at sink with FWW, SBA pt will be able to perform teeth brushing and brushing her hair (I). (NOT MET, pt remains CGA at this time) 2. Dressing sitting in chair with mod (A) for (B) socks pt will be able to (I) don and doff pants and shirt. (NOT MET, pt denies) 3. Bathing standing at sink with CGA, FWW pt will be able to perform bathing routing with mod (A) lower legs. (NOT MET, max (A) lower legs at this time) 4. Toileting pt will be able to perform toileting routine on toilet with min (A) (MET) 5. Eating (I) (Pt is NPO, NOT MET) PLAN OF CARE/TREATMENT PLAN: Discharge from skilled OT services at this time. DISCHARGE RECOMMENDATIONS Plan is for pt to be discharged to [facility] today at 1:00 TREATMENT TIME/MINUTES/CODES [id number], 30 minutes (09:30) [facility]
[2018-08-20 11:14] VITALS: BP 150/96; PULSE 108; RESP 20; TEMP 36.8; O2SAT 98
[2018-08-20] MEDS: clonazePAM 1 MG TAB 1.5 MG PO (11:21)
[2018-08-20] MEDS: Magnesium Oxide 400 MG TAB PO (11:22)
--- NOTE | 2018-08-20 12:29 | PT.INDS ---
Date of service: 08/20/18 Time of Service: 09:25 PT Notes Date: 08/20/18 Referring Doctor: Dr. Sigala PT Orders: PT CONSULT: deconditioned, long hospitalization. Not able to ambulate at this time Precautions: fall, standard Treatment Dates: 07/25/18 - 08/20/18 Patient Profile/Admitting Diagnosis: Patient has had a prolonged hospitalization for management of hypotension and schizophrenia. She's participated in PT intervention 1-2x/day for the past 27 days, with a total of 43sessions. PMHX: cognitive dysfunction; HTN; GERD; schizophrenia; Graves disease; esophageal stricture s/p dilation Social History/Home Situation: Patient lives alone in a single level home. She uses a 4WW at night, and according to family present at time of eval, has been encouarged to use this during the day as well, although with limited compliance. 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 She has supportive family in the area, who have been present here at the hospital throughout her stay. Equipment Owned/DME: 4WW Subjective: Christie states that she is ready to work with PT. She denies pain. Objective: General Observation: Resting in chair. PEG tube and a Bell catheter. Mental Status: A&Ox3. Pain: denies ROM: Right Upper Extremity: AROM allows shoulder flexion to 150 degrees. Wrist and elbow motion are WNL. Left Upper Extremity: AROM allows shoulder flexion to 150 degrees. Wrist and elbow motion are WNL. Right Lower Extremity: Hip flexion allows 100 degrees functionally. Knee motion 0-120 bilaterally. Ankle motion allows 0 degrees DF only. Left Lower Extremity: Hip flexion allows 100 degrees functionally. Knee motion 0-120 bilaterally. Ankle motion allows 0 degrees DF only. Strength: Right Upper Extremity: Shoulder flexion 4/5. Biceps 4/5. Left Upper Extremity: Shoulder flexion 4/5. Biceps 4/5. Right Lower Extremity: Patient is functionally able to perform SLR without extension lag. Ankle DF is 3/5 bilat. HS 3/5 bilat. Left Lower Extremity: Patient is functionally able to perform SLR without extension lag. Ankle DF is 3/5 bilat. HS 3/5 bilat. Sensation: intact distally Bed Mobility/Transfers: rolling to side: independent supine-sit: independent sit-supine: independent sit-stand:SBA stand-sit:SBA Gait: Patient is able to ambulate 6'x1 and 30'x1 with 4WW with CGA during today's session. She demonstrates slow gait pattern with limited foot clearance, bilat. Balance: Static sitting: normal Dynamic sitting normal Static standing fair Dynamic standing: fair Treatment: Today's session consisted of gait and transfer training. Patient declines therex today, reporting significant fatigue. Assessment: Patient is a 63 year old female referred to physical therapy services with the diagnosis of deconditioned, long hospitalization. Not able to ambulate at this time. Patient has been participating in skilled PT intervention 1-2 times per day for the past 27 days, with continued improvements in mobility and activity tolerance. She has now medically stabilized, and is being discharged from acute care. She does not demonstrate mobility sufficient to allow for safe transition home at this time, and requires continued PT intervention in SNF setting to maximize mobility and independence to allow for eventual transition back to assisted living apartment. She will now be discharged from PT in acute care setting. Goals: Goals X1 week 1. Supine-Sit : supervision ( met) 2. Sit-Supine : supervision (met) 3. Sit-Stand : supervision (progressing toward) 4. Stand-Sit : supervision (progressing toward) 5. Bed-Chair : CG with 4WW (met) 6. Chair-Bed : CG with 4WW(met) 7. Gait : CG with 4WW x 50' (progressing toward) Plan of Care/Treatment Plan: D/C from PT in acute care setting. DISCHARGE RECOMMENDATIONS:Will require SNF for further rehabilitation. TREATMENT CODE/TIME: 9:25-9:35; 11:45-11:55 (20 minutes) ([id number]) Karen Floyd, PT, DPT [facility]
--- NOTE | 2018-08-20 12:34 | INDS_ITS ---
Date of service: 08/20/18 Time of Service: 09:25 PT Notes Date: 08/20/18 Referring Doctor: Dr. Sigala PT Orders: PT CONSULT: deconditioned, long hospitalization. Not able to ambulate at this time Precautions: fall, standard Treatment Dates: 07/25/18 - 08/20/18 Patient Profile/Admitting Diagnosis: Patient has had a prolonged hospitalization for management of hypotension and schizophrenia. She's participated in PT intervention 1-2x/day for the past 27 days, with a total of 43sessions. PMHX: cognitive dysfunction; HTN; GERD; schizophrenia; Graves disease; esophageal stricture s/p dilation Social History/Home Situation: Patient lives alone in a single level home. She uses a 4WW at night, and according to family present at time of eval, has been encouarged to use this during the day as well, although with limited compliance. She has a smeller who comes in to help with meals, grocery shopping and housework. She has supportive family in the area, who have been present here at the hospital throughout her stay. Equipment Owned/DME: 4WW Subjective: Christie states that she is ready to work with PT. She denies pain. Objective: General Observation: Resting in chair. PEG tube and a Bell catheter. Mental Status: A&Ox3. Pain: denies ROM: Right Upper Extremity: AROM allows shoulder flexion to 150 degrees. Wrist and elbow motion are WNL. Left Upper Extremity: AROM allows shoulder flexion to 150 degrees. Wrist and elbow motion are WNL. Right Lower Extremity: Hip flexion allows 100 degrees functionally. Knee motion 0-120 bilaterally. Ankle motion allows 0 degrees DF only. Left Lower Extremity: Hip flexion allows 100 degrees functionally. Knee motion 0-120 bilaterally. Ankle motion allows 0 degrees DF only. Strength: Right Upper Extremity: Shoulder flexion 4/5. Biceps 4/5. Left Upper Extremity: Shoulder flexion 4/5. Biceps 4/5. Right Lower Extremity: Patient is functionally able to perform SLR without extension lag. Ankle DF is 3/5 bilat. HS 3/5 bilat. Left Lower Extremity: Patient is functionally able to perform SLR without extension lag. Ankle DF is 3/5 bilat. HS 3/5 bilat. Sensation: intact distally Bed Mobility/Transfers: rolling to side: independent supine-sit: independent sit-supine: independent sit-stand:SBA stand-sit:SBA Gait: Patient is able to ambulate 6'x1 and 30'x1 with 4WW with CGA during today's session. She demonstrates slow gait pattern with limited foot clearance, bilat. Balance: Static sitting: normal Dynamic sitting normal Static standing fair Dynamic standing: fair Treatment: Today's session consisted of gait and transfer training. Patient declines therex today, reporting significant fatigue. Assessment: Patient is a 63 year old female referred to physical therapy services with the diagnosis of deconditioned, long hospitalization. Not able to ambulate at this time. Patient has been participating in skilled PT interven tion 1-2 times per day for the past 27 days, with continued improvements in mobility and activity tolerance. She has now medically stabilized, and is being discharged from acute care. She does not demonstrate mobility sufficient to allow for safe transition home at this time, and requires continued PT intervention in SNF setting to maximize mobility and independence to allow for eventual transition back to assisted living apartment. She will now be discharged from PT in acute care setting. Goals: Goals X1 week 1. Supine-Sit : supervision ( met) 2. Sit-Supine : supervision (met) 3. Sit-Stand : supervision (progressing toward) 4. Stand-Sit : supervision (progressing toward) 5. Bed-Chair : CG with 4WW (met) 6. Chair-Bed : CG with 4WW(met) 7. Gait : CG with 4WW x 50' (progressing toward) Plan of Care/Treatment Plan: D/C from PT in acute care setting. DISCHARGE RECOMMENDATIONS:Will require SNF for further rehabilitation. TREATMENT CODE/TIME: 9:25-9:35; 11:45-11:55 (20 minutes) ([id number]) Karen Floyd, PT, DPT [facility]
--- NOTE | 2018-08-20 13:18 | W.PM.DS.N ---
Date of service: 08/20/18 Time of Service: 13:18 DS: Diagnosis Discharge Diagnosis (1) Acute colitis: Status: Acute (2) Schizophrenia: Status: Chronic (3) Altered mental status: Status: Resolved (4) Dysphagia: Status: Acute (5) Esophageal dysmotility: Status: Acute (6) Hypotension: Status: Resolved (7) Bradycardia: Status: Resolved (8) Hypernatremia: Status: Resolved (9) KJ (acute kidney injury): Status: Resolved (10) Anemia: Status: Chronic (11) Catheter-associated urinary tract infection: Status: Acute (12) Urinary retention: Status: Acute (13) DVT prophylaxis: Status: Acute (14) Advance directive on file: Status: Acute Discharge Plan Disposition Patient Disposition: SNF (LEVEL 1) [facility] Condition: Serious Discharge Details Reason For Visit: HYPOTENSION Admit Date/Time: 07/04/18 18:59 Admit Provider: Morris Corey Attending Provider: Morris Corey Primary Care Provider: Souleymane Muller Hospital Course Hospital Course: CC: Hypotension HPI: 63-year-old woman with history of cognitive delay and Hypertension, admitted from [facility] with a diagnosis of Hypotension. Ms. Gardiner has a history of cognitive dysfunction, HTN, GERD, and Schizophrenia. She was initially sent to the ED because of several days of nonspecific weakness. In the ED she was noted to be significantly hypotensive with blood pressures in the 60s systolic, but without tachycardia. She was given fluid resuscitation and started on levophed. Initial laboratory evaluation of note for leukocytosis, low-grade pyuria (5-10 white cells), negative chest x-ray and CT of the abdomen that was unremarkable except for a known cyst in the right lower quadrant. She was then referred for admission for further evaluation and treatment. Since her admission Blood pressure eventually improved and she has remained off pressor support after recurrence of her hypotension once early on during her lengthy hospitalization - thought likely secondary to aspiration pneumonia/pneumonitis. Her Urine and Blood Cultures have remained negative, and her C. Diff and Fecal Leukocytes were negative as well. CT of the chest and ECHO have been normal. She did however show evidence of difficulty with swallowing, and a Barium Swallow revealed evidence of barium retention and esophageal dysmotility. Subsequent EGD was negative. Mrs. Gardiner had remained NPO and without oral meds or food for quite some time - successfully underwent PEG tube placement on 07/19 and restarted on her home medications. The Patient is an extremely pleasant and stable woman, previously highly independent and living on her own. Her mental status declined significantly from her baseline - became essentially nonverbal and not following commands. Thought to be likely catatonia, psychiatry was consulted and confirmed diagnosis. She was moved to the ICU and given trial of IV benzodiazepine therapy with excellent success. She is now awake and alert and appears back to baseline mental status, and needs to be maintained on oral benzo therapy indefinitely. She also underwent a repeat speech evaluation with improved ability to swallow with return of her mental status, but as expected with a great deal of esophageal dysphagia and resultant discomfort given her esophageal dysmotility. The patient was subsequently discovered to have a UTI, with pansensitive Pseudomonas that was treated with another course of antibiotics, as well as complaints of abdominal pain with evidence of potential Colitis of the ascending colon by CT. Repeat C.Diff returned negative, and repeat urinalysis was normal as well - patient's antibiotics have been held, and she continues to feel improved from an abdominal pain standpoint - now completely resolved over the last 2 days. She continued to exhibit urinary retention post campbell discontinuation, with >500-600 cc's post void, and unfortunately had a campbell catheter reinserted. Her weight has declined significantly with diuresis, and has remained steady over the last 4 days on her current furosemide regimen. No other events reported. Remains afebrile. Hospital Course: (1) Acute colitis: Potential colitis of the ascending colon on somewhat limited CT Scan, with pain located in the RLQ. C.Diff negative, with PO Vanco and IV Metronidazole discontinued after a 1-2 day course. Pain improved without intervention, and now appears resolved over the course of the last 2 days. Continue to monitor. (2) Schizophrenia: Resolution of Catatonia that had developed following abrupt disruption of home medications early in hospitalization, especially Olanzapine. Currently appears at baseline mental status. Continue current Clonazepam dosing. Plan will be for indefinite use at this time per discussion with psychiatry. Continues to appear stable and at baseline mental status. (3) Altered mental status: Confirmed catatonic state by psychiatry, likely precipitated by witholding of chronic psych meds over initial course of hospitalization. Responded well to Benzo therapy as above, now back to baseline. EEG and MRI X2 were negative. (4) Dysphagia: History of benign distal esophageal stricture by EGD, s/p dilation in 2007. There was also noted Unprotected aspiration as well as large GERD with evidence of esophagitis at that time. However, repeat EGD here normal and Barium Swallow performed this hospitalization with no evidence of stricture, but with significant esophageal dysmotility and retention of barium in the esophagus. Patient treated for Aspiration pneumonia now on seperate occasions - s/p PEG tube placement 07/19. Maintaining NPO status with continued Tube Feeds. Also restarted home meds via Peg Tube, with continued aspiration precautions. Currently on QHS Imipramine. Also on treatment of GERD with PPI therapy. Will ultimately need outpatient manometry - will schedule with GI as outpatient for potential Manometry. Of note, had been having problems with initiation of swallowing which appeared new and likely related to her altered mental status/catatonic state from withholding of her psych medications. She has undergone repeat speech evaluation and now able to initiate swallowing well, but with continued and significant discomfort after due to her Esophageal Dysmotility. Will need outpatient GI follow-up with possible manometry if deemed appropriate. (5) Esophageal dysmotility: Plan as above. (6) Hypotension: Initially, hypotensive to the point of requiring pressor support, and with evidence of end-organ damage with JK and elevation in Lactate - unknown etiology. Potential Dehydration in the setting of initiation of HCTZ vs. Sepsis - although no evidence of infiltrate or acute infection initially. Does not appear to have been adrenal insufficiency, with steroids weaned off. Echo without clear cardiogenic etiology, and no persistent arrhythmias on monitor. Aspiration pneumonia/recurrent aspiration events now seem like the most likely scenario. Resolved. (7) Bradycardia: Abnormally normal heart rate during initial bout of hypotension, then frankly bradycardic during recurrent bout of hypotension. Also with tachycardia noted. 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 (8) Hypernatremia: Minimal and occasional. Continue Tube Feeds, and Free Water via Peg Tube. Of note, patient with occasional bibasilar crackles and subjective dyspnea which responded to prn administration of lasix. Continue previously decreased free water and diuretic therapy, and monitor weight and lytes carefully - Current weight of 90 Kg - dry weight appears to be at 91-92 kg. Continue current decreased lasix dose and continue to monitor. (9) KJ (acute kidney injury): Resolved, with current creatinine stable. (10) Anemia: Stable but low hgb, heme negative stool. Iron studies with low iron, low TIBC, and low ferritin. B12 normal but with low FA. TSH normal as well. Continue PPI therapy, Ferrous sulfate, Vitamin C, and Folic Acid supplements. Hgb remains low but stable. (11) Catheter-associated urinary tract infection: Catheter was changed 08/11/18 and removed 08/14/18. Culture with pansensitive Pseudomonas. Repeat urinalysis negative. Discontinued Zosyn on 08/16. Campbell resumed secondary to Urinary Retention. Ms. Gardiner is at high risk for recurrence of infection as she is occasionally incontinent of stool, and has chronically loose stools and now with campbell cath in place. Considered discussion with Urology regarding potential for Suprapubic cath - patient does have a very large lower abdomen Seroma that may be prohibitive, and already has PEG Tube in place. Will have her follow-up with Urology as outpatient to monitor over time and consider alternate treatment modalities in the future. (12) Urinary retention: Likely based on use of Benzodiazepines. Void trial unsuccessful. Reinitiated Campbell previously. (13) DVT prophylaxis: Was maintained on SC Enoxaparin. (14) Advance directive on file: DNR/DNI. (15) Disposition: To [facility] level care. PLEASE NOTE - ALL MEDICATIONS ARE VIA NG TUBE. PATIENT IS NPO. 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 Home Meds and New Rx's Prescriptions: New furosemide 40 mg Tablet 40 mg PO DAILY Qty: 0 RF: 0 donepezil 5 mg Tablet 10 mg UD HS Qty: 0 RF: 0 loperamide 2 mg Capsule 2 mg PO DAILY Qty: 0 RF: 0 clonazepam 1 mg Tablet 1.5 mg PO BID Qty: 90 RF: 0 amlodipine 5 mg Tablet 5 mg PO DAILY Qty: 0 RF: 0 potassium chloride 20 mEq Packet 40 meq NG DAILY Qty: 0 RF: 0 cyanocobalamin (vitamin B-12) [Vitamin B-12] 500 mcg Tablet 1,000 mcg NG DAILY Qty: 0 RF: 0 ascorbic acid (vitamin C) [Vitamin C] 500 mg Tablet 500 mg NG BID Qty: 0 RF: 0 folic acid 1 mg Tablet 1 mg NG DAILY Qty: 0 RF: 0 nystatin 100,000 unit/gram Powder topical BID Qty: 0 RF: 0 imipramine HCl 25 mg Tablet 25 mg PO HS Qty: 0 RF: 0 Refresh Plus 0.5 % Dropperette 1 ea OU PRN PRNQty: 0 RF: 0 Floranex 100 million cell Granules In Packet 1 g PO TID Qty: 0 RF: 0 ferrous sulfate 220 mg (44 mg iron)/5 mL Elixir 325 mg NG BID Qty: 0 RF: 0 Mag&Al/Sim/Diphenhyd/Lidocaine [First-Mouthwash Blm Suspension] 5 ml PO Q6H PRN PRNQty: 0 RF: 0 Continued loperamide 2 mg Capsule 2 mg PO DAILY AM RF: 0 donepezil [Aricept] 10 mg Tablet 10 mg PO DAILY RF: 0 olanzapine [Zyprexa] 5 mg Tablet 10 mg PO DAILY RF: 0 sumatriptan succinate 50 mg Tablet 50 mg PO PRN PRNRF: 0 methimazole 5 mg Tablet 5 mg PO DAILY RF: 0 ProAir HFA 90 mcg/actuation Hfa Aerosol Inhaler 2 % Inhalation PRN PRNRF: 0 cholecalciferol (vitamin D3) [Vitamin D3] 1,000 unit Capsule 1 tab PO DAILY RF: 0 memantine 10 mg Tablet 10 mg PO BID RF: 0 Changed omeprazole 40 mg Capsule,Delayed Release(Dr/Ec) 40 mg PO BID Qty: 0 RF: 0 Discontinued fluconazole [Diflucan] 150 mg Tablet 150 mg PO ONCE RF: 0 nystatin 100,000 unit/gram Cream 1 applic TOPICAL TID RF: 0 hydrochlorothiazide 25 mg Tablet 25 mg PO DAILY RF: 0 lisinopril 40 mg Tablet 40 mg PO DAILY RF: 0 Discharge Instructions Stand Alone Forms: Nursing Discharge Form Referrals: Urology - [facility] [Other] - 08/27/18 1:30 pm Activity:: As Per PT. Equipment/Supplies:: No Equipment Needed Diet:: TUBE FEEDS. PATIENT IS NPO. Discharge Orders Discharge Orders: Discharge Order (Routine); Ordered 08/20/18 Ordered By: Fernandez Sigala Exam Narrative Exam Narrative: General: Patient awake at time of visit, alert and at baseline mental status. NAD. Neck: Supple CV: Regular, nontachycardic, S1S2, No rubs, murmurs, or gallops. Pulmonary: Resolution of mild bibasilar crackles. Abdomen: + Bowel Sounds, soft, nondistended. RLQ seroma unchanged. PEG Tube site clean. No further RLQ pain on palpation - no rebound. Vascular: No lower extremity edema Psych: Mood and affect at patient's baseline. DS: Data Vitals/I&O Vitals and I&O: Vital Signs Temperature 36.8 C 08/20/18 11:14 Temperature Source Tympanic 08/20/18 11:14 Pulse 108 H 08/20/18 11:14 Pulse Rhythm Regular 08/20/18 11:44 Pulse 94 H 07/30/18 16:43 Respiratory Rate 20 08/20/18 11:14 Respiratory Effort 08/20/18 11:44 Respiratory Depth Normal 08/20/18 11:44 Respiratory Pattern Normal 08/20/18 11:44 Blood Pressure 150/96 H 08/20/18 11:14 Blood Pressure Mean 115 07/30/18 16:43 Blood Pressure Position Supine 07/30/18 16:46 Pulse Oximetry 98 08/20/18 11:14 Respiratory End-tidal CO2 34 07/07/18 15:01 Oxygen Delivery Method Room Air 08/20/18 11:14 Oxygen Flow Rate 0 08/20/18 11:14 Fraction of Inspired Oxygen (FIO2) 28 07/16/18 00:30 Pain Level 5 08/14/18 09:27 Comment 08/13/18 04:30 Intake & Output 08/19/18 08/20/18 08/20/18 23:59 11:59 23:59 Intake Total 1170 / 1620 390 / 390 Output Total 1750 / 1750 375 / 375 Balance -580 / -130 15 / 15 Weight 88.8 kg Intake: Intake, Tube Feeding Amount 1170 / 1560 390 / 390 Output: Urine 1750 / 1750 375 / 375 Output, Residual 0 / 0 0 / 0 Other: Urine Color Yellow Pale Yellow Urine Appearance Clear Clear Comment Campbell bag changed as it was leaking all over floor. Stool Size Moderate Stool Characteristics Soft Brown Labs on day of discharge: Labs from last 24 hours 08/20/18 08/20/18 08/20/18 06:20 06:20 06:20 WBC 9.29 RBC 3.85 L Hgb 9.5 L Hct 33.2 L MCV 86.2 MCH 24.7 L MCHC 28.6 L RDW 18.9 H Plt Count 372 MPV 11.6 H Immature Gran % 0.2 Neutrophils % 62.8 Lymphocytes % 21.9 Monocytes % 8.6 Eosinophils % 5.9 Basophils % 0.6 Absolute Neutrophils 5.83 Absolute Lymphocytes 2.03 Absolute Monocytes 0.80 H Absolute Eosinophils 0.55 Absolute Basophils 0.06 Sodium 147 H Potassium 4.0 Chloride 107 Carbon Dioxide 32.7 H Anion Gap 7.3 BUN 35 H Creatinine 0.70 Estimated GFR/1.73 m2 >= 60.00 Glucose 98 Calcium 9.5 Magnesium 1.9 PFSH Medical History Schizophrenia (Chronic) Cognitive developmental delay (Acute) Hypertension (Chronic) Hypothyroidism (Chronic) Social History household members: none current occupational status: disabled Smoking and Tabacco status: Never alcohol intake: never substance use type: does not use additional social history: Lives alone.
== END 2018-08-20 14:06 | disposition skilled nursing facility (03) | DRG 314 ==
LOC: ER 20:07 → ICU 21:00 → MS 08-01 19:00 → ICU 08-21 12:52
PROVIDERS: Internal Medicine; Surgery; Admitting Provider General Practice; Emergency Provider Student in an Organized Health Care Education/Training Program; PCP Internal Medicine; Visit Provider Internal Medicine
PROC: 0DJ68ZZ Inspection of Stomach, Via Natural or Artificial Opening Endoscopic (ICD-10-PCS; CPT 43235; principal; 2018-07-12 09:00)
PROC: 0DH63UZ Insertion of Feeding Device into Stomach, Percutaneous Approach (ICD-10-PCS; CPT 43246; principal; 2018-07-19 12:35)
DX: I95.9 Hypotension, unspecified (principal); J69.0 Pneumonitis due to inhalation of food and vomit; T83.511A Infection and inflammatory reaction due to indwelling urethral catheter, initial encounter; N39.0 Urinary tract infection, site not specified; A41.9 Sepsis, unspecified organism; J18.9 Pneumonia, unspecified organism; G92 Toxic encephalopathy; I50.33 Acute on chronic diastolic (congestive) heart failure; F20.2 Catatonic schizophrenia; N17.9 Acute kidney failure, unspecified; E87.2 Acidosis; E87.0 Hyperosmolality and hypernatremia; J68.0 Bronchitis and pneumonitis due to chemicals, gases, fumes and vapors; R57.9 Shock, unspecified; Z43.1 Encounter for attention to gastrostomy; E87.6 Hypokalemia; F79 Unspecified intellectual disabilities; K52.89 Other specified noninfective gastroenteritis and colitis; R41.82 Altered mental status, unspecified; K22.4 Dyskinesia of esophagus; K21.9 Gastro-esophageal reflux disease without esophagitis; B96.5 Pseudomonas (aeruginosa) (mallei) (pseudomallei) as the cause of diseases classified elsewhere; R33.8 Other retention of urine; T42.4X5A Adverse effect of benzodiazepines, initial encounter; K22.2 Esophageal obstruction; E86.1 Hypovolemia; D64.9 Anemia, unspecified; R13.11 Dysphagia, oral phase; R06.00 Dyspnea, unspecified; R07.89 Other chest pain; R79.1 Abnormal coagulation profile; R29.2 Abnormal reflex; R46.89 Other symptoms and signs involving appearance and behavior; R05 Cough; E04.2 Nontoxic multinodular goiter; E83.42 Hypomagnesemia; R29.810 Facial weakness; R13.14 Dysphagia, pharyngoesophageal phase; Z51.5 Encounter for palliative care; R09.02 Hypoxemia; R06.89 Other abnormalities of breathing; Z73.89 Other problems related to life management difficulty; I11.0 Hypertensive heart disease with heart failure; Z75.1 Person awaiting admission to adequate facility elsewhere; Z78.1 Physical restraint status; L89.812 Pressure ulcer of head, stage 2
CPT/HCPCS: 43235; 43246; 36410; 36415; 36556; 36569; 36591; 36592; 51701; 70491; 70553; 71045; 71275; 80048; 80051; 80053; 80076; 83690; 84145; 84520; 85027; 87040; 87077; 87449; 87505; 92610; 93005; 93306; 95816; 96361; 96365; 96366; 96367; 96368; 96375; 97110; 97162; 97163; 97167; 97530; 97535; 99222; 99223; 99231; 99232; 99233; 99239; 99252; 99253; 99254; 99255; 99285; 99291; 99356; G8996; J1650; NC; 70450; 70551; 74176; 74177; 74220; 74247; 76536; 80202; 81003; 81015; 82140; 82308; 82565; 82607; 82728; 82746; 83540; 83550; 83605; 83630; 83735; 83880; 84132; 84443; 84484; 85014; 85018; 85025; 85379; 87081; 87086; 87186; 87324; 87798; 93010; 93970; 94640; J0456; J0696; J1265; J1720; J1940; J1941; J1953; J1956; J2060; J2250; J2405; J2543; J2930; J2997; J3475; J3480; J3490; J7060; J7614; J7620; Q9967

== ENCOUNTER → 2018-07-07 07:45 | Outpatient (BNVA) | payer MEDICARE, MEDICAID, SELFPAY | PROVIDERS: PCP Internal Medicine; Visit Provider Psychiatry & Neurology Neurology | DX: R69 Illness, unspecified (principal) ==

== ENCOUNTER → 2018-08-27 13:14 | Outpatient (BNVA) | payer MEDICARE, MEDICAID, SELFPAY | PROVIDERS: Visit Provider Nurse Practitioner Gerontology | DX: R33.9 Retention of urine, unspecified (principal); I11.0 Hypertensive heart disease with heart failure; I50.9 Heart failure, unspecified | CPT/HCPCS: 99204; 99215 ==

== ENCOUNTER 2018-09-11 09:00 | Outpatient (REF) | payer SELFPAY ==
[2018-09-11 10:17] LABS: Abs Immature Grans 0.02 k/cumm (0.0-0.09); Absolute Basophil Count 0.03 k/cumm (0.0-0.2); Absolute Lymphocyte Count 1.48 k/cumm (1.2-3.4); Absolute Neutrophil Count 10.19 k/cumm (1.2-6.7); Basophils % 0.2; Eosinophils % 3.9; HCT 35.1 % (36.0-46.0); HGB 10.6 g/dL (12.0-15.5); Immature Grans % 0.2; Lymphocytes % 11.2; Mean Corp. HGB Concentration 30.2 g/dL (32.0-36.0); Mean Corpuscular Hemoglobin 25.6 pg (27.0-33.0); Mean Corpuscular Volume 84.8 fL (80-95); Mean Platelet Volume 12.9 fL (8.0-11.0); Monocytes % 7.1; Neutrophils % 77.4; Platelet Count 324 x1000/uL (130-400); RBC 4.14 m/cumm (4.00-5.20); White Blood Cell Count 13.17 k/cumm (4.4-10.8)
[2018-09-11 10:20] LABS: Absolute Eosinophil Count 0.51 k/cumm (0.0-0.7); Absolute Monocyte Count 0.94 k/cumm (0.11-0.7)
== END 2018-09-11 09:20 ==
LOC: LBN 09:00
PROVIDERS: PCP Family Medicine; Visit Provider Family Medicine
DX: R50.9 Fever, unspecified (principal)
CPT/HCPCS: 85025

== ENCOUNTER 2018-09-12 16:07 | Outpatient (REF) | payer MEDICARE, MEDICAID, SELFPAY ==
[2018-09-12 16:39] LABS: Bilirubin Negative (Negative); Blood Trace-intact (Negative); Clarity Sl Cloudy; Glucose Negative (Negative); Ketones Negative (Negative); Leukocyte Esterase Large (Negative); Nitrite Negative (Negative); Specific Gravity 1.015 (1.005-1.025); Urobilinogen 0.2 EU/dL (Up TO 0.2); pH 7.5 (5-8)
[2018-09-12 16:45] LABS: Bacteria Many HPF (Negative); C & S Indicated? Yes; WBC >50 HPF (0-5)
== END 2018-09-12 16:27 ==
LOC: LBN 16:07
PROVIDERS: PCP Family Medicine; Visit Provider Family Medicine
DX: N39.0 Urinary tract infection, site not specified (principal); R30.0 Dysuria
CPT/HCPCS: 87077; 81003; 81015; 87086; 87186

== ENCOUNTER 2018-09-22 16:44 | Emergency (ER) | payer MEDICARE, MEDICAID, SELFPAY ==
[2018-09-22] VITALS (42 sets, daily range): BP systolic 106–127; BP diastolic 74–87; PULSE 99–116; RESP 8–27; TEMP 37.8; O2SAT 91–98
--- NOTE | 2018-09-22 16:54 | DI.RAD_ITS ---
SYMPTOM/DIAGNOSIS: SOB, COUGH, ? PNEUMONIA AP AND LATERAL CHEST: There is some increased density in the right lower lobe and a small right pleural effusion is identified. The findings would be consistent with an acute pneumonitis. The left lung is clear. The heart is not enlarged. The hilar structures, mediastinum and tracheal air column are intact. SUMMARY: Findings consistent with an acute pneumonitis.
--- NOTE | 2018-09-22 16:56 | W.ED.GENAD ---
Discharge Plan Disposition Patient Disposition: HOME Condition: Improving Discharge Details Chief Complaint: Fever Clinical Impression: Pneumonia Primary Care Provider: Unknown,Unknown ED Provider: Shayna Boateng Home Meds and New Rx's Prescriptions: New amoxicillin-pot clavulanate [Augmentin] 875-125 mg tablet 1 tab PO BID 7 Days Qty: 14 RF: 0 doxycycline hyclate 100 mg tablet 100 mg PO BID 7 Days Qty: 14 RF: 0 Continued amoxicillin-pot clavulanate [Augmentin] 875-125 mg Tablet 875 tab Feeding Tube BID RF: 0 loperamide 2 mg Capsule 2 mg PO DAILY AM RF: 0 donepezil [Aricept] 10 mg Tablet 10 mg PO DAILY RF: 0 olanzapine [Zyprexa] 5 mg Tablet 10 mg PO DAILY RF: 0 sumatriptan succinate 50 mg Tablet 50 mg PO PRN PRNRF: 0 methimazole 5 mg Tablet 5 mg PO DAILY RF: 0 albuterol sulfate [ProAir HFA] 90 mcg/actuation Hfa Aerosol Inhaler 2 % Inhalation PRN PRNRF: 0 cholecalciferol (vitamin D3) [Vitamin D3] 1,000 unit Capsule 1 tab PO DAILY RF: 0 memantine 10 mg Tablet 10 mg PO BID RF: 0 furosemide 40 mg Tablet 40 mg PO DAILY Qty: 0 RF: 0 donepezil 5 mg Tablet 10 mg UD HS Qty: 0 RF: 0 loperamide 2 mg Capsule 2 mg PO DAILY Qty: 0 RF: 0 clonazepam 1 mg Tablet 1.5 mg PO BID Qty: 90 RF: 0 amlodipine 5 mg Tablet 5 mg PO DAILY Qty: 0 RF: 0 potassium chloride 20 mEq Packet 40 meq NG DAILY Qty: 0 RF: 0 cyanocobalamin (vitamin B-12) [Vitamin B-12] 500 mcg Tablet 1,000 mcg NG DAILY Qty: 0 RF: 0 ascorbic acid (vitamin C) [Vitamin C] 500 mg Tablet 500 mg NG BID Qty: 0 RF: 0 folic acid 1 mg Tablet 1 mg NG DAILY Qty: 0 RF: 0 nystatin 100,000 unit/gram Powder topical BID Qty: 0 RF: 0 imipramine HCl 25 mg Tablet 25 mg PO HS Qty: 0 RF: 0 Refresh Plus 0.5 % Dropperette 1 ea OU PRN PRNQty: 0 RF: 0 Floranex 100 million cell Granules In Packet 1 g PO TID Qty: 0 RF: 0 ferrous sulfate 220 mg (44 mg iron)/5 mL Elixir 325 mg NG BID Qty: 0 RF: 0 Mag&Al/Sim/Diphenhyd/Lidocaine [First-Mouthwash Blm Suspension] 5 ml PO Q6H PRN PRNQty: 0 RF: 0 omeprazole 40 mg Capsule,Delayed Release(Dr/Ec) 40 mg PO BID Qty: 0 RF: 0 Discharge Instructions Instructions: Pneumonia (ED) Additional Instructions: You were noted to have some mild fluid in your lungs on your chest x-ray. Please continue to take your Lasix as directed. Also drink plenty of fluids to stay hydrated. Take the antibiotics as directed until finished. Take magnesium oxide per g tube to help increase your low magnesium. Follow-up with your primary care doctor tomorrow for reevaluation. Return immediately to the emergency department with any worsening or new concerning symptoms. Discharge Data Discharge Physician: Shayna Boateng Medical Decision Making 63-year-old female with a history of CHF, schizophrenia, hypertension, hypothyroidism, developmental delay who presents from the [facility] for fever and concern for aspiration pneumonia. She recently finished Keflex for UTI. She was also given 1 dose of Augmentin for pneumonia within the past few days. Temp 102.6 per EMS. She was given 650 of Tylenol at the alf. She is DNR/DNI. Heart rate 110s. Temp 100. Remainder vitals within normal limits. Patient appears nontoxic. Mucous membranes dry. Diminished breath sounds in the right base. Abdomen soft. 2+ pitting edema to the bilateral lower extremities. Will place an IV, labs, urinalysis, lactate, blood cultures, chest x-ray, and EKG. Will also give a dose of Tylenol. EKG notes a rate of 116, sinus, no acute ST findings. 1830 --labs and imaging reviewed. White blood cell count 22. Lactate 0.8. Electrolytes within normal limits. Magnesium 1.5. Troponin negative. BNP 560. Urinalysis 3-5 WBCs but appears contaminated. Chest x-ray notes right lower lobe pneumonia as well as mild interstitial edema and tiny right pleural effusion. Heart rate much improved, now low 100s. Oxygen saturation 95% on 2 L. Will give a dose of Levaquin. Patient appears in no acute distress, speaking full sentences. At this point in time, I feel like she is appropriate to discharge back to the [facility]. 2024 --patient looks much better. She has no signs of respiratory distress, speaking in full sentences. Heart rate 90s. Blood pressure stable. Sister at bedside and feels that patient looks better. She is agreeable with plan for transfer back to the [facility]. Upon review of medication, there is an interaction with Levaquin with Aricept due to risk of QT prolongation. Therefore we will send back with prescriptions for Augmentin and doxycycline. Instructions also written for patient to have nasal cannula 2 L to keep oxygen saturations greater than 92%. Her O2 sat is 94% on room air at this time. They were instructed that there was some mild fluid noted on the chest x-ray. Instructed to keep hydrated in the setting of infection, but do also take the Lasix as directed. Instructed to return here immediately if worse. Medical Records Medical records reviewed: Yes I reviewed the patient's medical records. Lab Data Lab results reviewed: Yes I reviewed the patient's lab results. ECG Data Attestation: I personally reviewed and interpreted this ECG (s) as follows: Interpretation: Rate of 116, sinus tachycardia. No acute ST elevation or depression. QTc 433. QRS 100. HPI General Mode of arrival: EMS. Date/Time Provider Initiated Documentation: 09/22/18 16:56. Limitations to Documentation: other (h/o cognitive developmental delay). Information obtained by: patient and EMS. HPI Narrative: Patient is a 63-year-old female with a history of CHF, schizophrenia, hypertension, hypothyroidism who presents from the [facility] for fever and concern for aspiration pneumonia. Patient was recently treated with Keflex for UTI which she finished over the weekend. She was then given 1 dose of Augmentin since then for possible pneumonia. She was noted to have a temp of 102 at the alf for which she was given 650 mg of Tylenol. Saturation on room air per EMS was 93%. She was found to be on 2 L of O2 at the alf. She is not chronically on oxygen. Patient ambulates with a walker and has a developmental delay at baseline. Per nursing staff she appeared to be neurologically at baseline. Patient admitted to vomiting once this weekend. She states she also had a dry cough this weekend but this is now improved. She states she did eat breakfast this morning. She denies any headache, nausea, chest pain, shortness of breath, abdominal pain. Related Data Home Medications Medication Instructions Recorded Confirmed albuterol sulfate [ProAir HFA] 2 % INHALATION PRN PRN 07/04/18 09/22/18 cholecalciferol (vitamin D3) 1 tab PO DAILY 07/04/18 09/22/18 [Vitamin D3] donepezil [Aricept] 10 mg PO DAILY 07/04/18 09/22/18 loperamide 2 mg PO DAILY AM 07/04/18 09/22/18 memantine 10 mg PO BID 07/04/18 09/22/18 methimazole 5 mg PO DAILY 07/04/18 09/22/18 olanzapine [Zyprexa] 10 mg PO DAILY 07/04/18 09/22/18 sumatriptan succinate 50 mg PO PRN PRN 07/04/18 09/22/18 Floranex 1 g PO TID #0 ea 08/20/18 08/27/18 Mag&Al/Sim/Diphenhyd/Lidocaine 5 ml PO Q6H PRN PRN #0 08/20/18 08/27/18 [First-Mouthwash Blm Suspension] Refresh Plus 1 ea OU PRN PRN #0 ea 08/20/18 09/22/18 amlodipine 5 mg PO DAILY #0 tab 08/20/18 09/22/18 ascorbic acid (vitamin C) [Vitamin 500 mg NG BID #0 tab 08/20/18 09/22/18 C] clonazepam 1.5 mg PO BID #90 tab 08/20/18 09/22/18 cyanocobalamin (vitamin B-12) 1,000 mcg NG DAILY #0 tab 08/20/18 09/22/18 [Vitamin B-12] donepezil 10 mg UD HS #0 tab 08/20/18 09/22/18 ferrous sulfate 325 mg NG BID #0 ml 08/20/18 09/22/18 folic acid 1 mg NG DAILY #0 tab 08/20/18 09/22/18 furosemide 40 mg PO DAILY #0 tab 08/20/18 09/22/18 imipramine HCl 25 mg PO HS #0 tab 08/20/18 09/22/18 loperamide 2 mg PO DAILY #0 cap 08/20/18 09/22/18 nystatin 0 g TOPICAL BID #0 g 08/20/18 09/22/18 omeprazole 40 mg PO BID #0 cap 08/20/18 09/22/18 potassium chloride 40 meq NG DAILY #0 ea 08/20/18 09/22/18 amoxicillin-pot clavulanate 1 tab PO BID 7 Days #14 tab 09/22/18 [Augmentin] amoxicillin-pot clavulanate 875 tab FEEDING TUBE BID 09/22/18 09/22/18 [Augmentin] doxycycline hyclate 100 mg PO BID 7 Days #14 tab 09/22/18 Previous Rx's Medication Instructions Recorded Floranex 1 g PO TID #0 ea 08/20/18 Mag&Al/Sim/Diphenhyd/Lidocaine 5 ml PO Q6H PRN PRN #0 08/20/18 [First-Mouthwash Blm Suspension] Refresh Plus 1 ea OU PRN PRN #0 ea 08/20/18 amlodipine 5 mg PO DAILY #0 tab 08/20/18 ascorbic acid (vitamin C) [Vitamin 500 mg NG BID #0 tab 08/20/18 C] clonazepam 1.5 mg PO BID #90 tab 08/20/18 cyanocobalamin (vitamin B-12) 1,000 mcg NG DAILY #0 tab 08/20/18 [Vitamin B-12] donepezil 10 mg UD HS #0 tab 08/20/18 ferrous sulfate 325 mg NG BID #0 ml 08/20/18 folic acid 1 mg NG DAILY #0 tab 08/20/18 furosemide 40 mg PO DAILY #0 tab 08/20/18 imipramine HCl 25 mg PO HS #0 tab 08/20/18 loperamide 2 mg PO DAILY #0 cap 08/20/18 nystatin 0 g TOPICAL BID #0 g 08/20/18 omeprazole 40 mg PO BID #0 cap 08/20/18 potassium chloride 40 meq NG DAILY #0 ea 08/20/18 amoxicillin-pot clavulanate 1 tab PO BID 7 Days #14 tab 09/22/18 [Augmentin] doxycycline hyclate 100 mg PO BID 7 Days #14 tab 09/22/18 Allergies Allergy/AdvReac Type Severity Reaction Status Date / Time Sulfa (Sulfonamide Allergy Mild Skin Rash Unverified 04/01/19 17:09 Antibiotics) General Stated Complaint: Fever TIFFANY: 2 Review of Systems Review of Systems All systems reviewed & are unremarkable except as noted in HPI and below Constitutional Reports as per HPI, Denies chills and Reports fever(s) Eyes Denies blurry vision ENT Denies dizziness, Denies sore throat and Denies throat swelling Cardiovascular Denies chest pain and Denies dyspnea Respiratory Reports cough and Denies dyspnea Gastrointestinal Denies abdominal pain, Denies diarrhea and Denies vomiting Genitourinary Denies hematuria and Denies dysuria Musculoskeletal Denies back pain and Denies numbness Integumentary/Breasts Denies lesions and Denies rash Neurologic Denies dizziness, Denies focal weakness and Denies numbness Allergic/Immunologic Denies throat swelling [facility] Medical History Schizophrenia (Chronic) Cognitive developmental delay (Acute) CHF (congestive heart failure) (Chronic) Hypertension (Chronic) Hypothyroidism (Chronic) Surgical History H/O oophorectomy (Acute) History of bilateral tubal ligation (Acute) History of hernia repair (Chronic) Social History Smoking/Tobacco Use Status: Never Alcohol Intake: never Drug use: Never Substance use type: does not use Household members: none Do you feel safe in your relationship?: Yes Additional Social history: Lives alone. Exam Const General: cooperative and no acute distress Orientation: alert, awake and oriented x3 HENMT Head: normal to inspection Ears: hearing grossly normal bilaterally, external ears normal and TM's normal bilaterally General nose exam: external nose normal Face and sinus: normal facial exam Mouth: mucous membranes dry Teeth and gingiva: dentition normal Eyes General: appearance normal, both eyes and all related structures Eyelids: eyelids normal EOM: EOM intact bilaterally Neck Neck: normal visual inspection Lymphatic: no lymphadenopathy noted Chest Chest: normal inspection of the chest Resp Effort & Inspection: normal respiratory effort, able to speak in complete sentences, labored and uses accessory muscles Auscultation: diminished lung sounds on the right in the lower lung reynaga Cardio Rate: tachycardic Rhythm: regular rhythm GI Inspection: visible herniation (below umbilicus) and other (G tube present, no signs of infection) Palpation: soft, not firm, no guarding, no hepatosplenomegaly, no masses and nontender Auscultation: hypoactive bowel sounds Skin General skin exam: no rashes or lesions noted Neuro General: alert and awake Cognition: normal cognition Speech: speech normal and abnormal speech garbled (chronic) Motor: muscle tone normal throughout Sensory Exam: no sensory deficits noted Extrem General: normal to inspection, full ROM, normal capillary refill and edema Laterality: bilateral (2+ pitting) Psych Appearance: grossly normal Mental Status: mental status grossly normal Speech and Movement: speech and movement normal Affect: normal affect Thought Process: normal Course Vital Signs Temperature 100.0 F H 09/22/18 16:51 Pulse 113 H 09/22/18 16:51 Respiratory Rate 21 09/22/18 16:51 Blood Pressure 122/87 09/22/18 16:51 Pulse Oximetry 95 09/22/18 16:51 Temperature 100.0 F H 09/22/18 16:51 Temperature Source Skin 09/22/18 16:51 Pulse 113 H 09/22/18 16:51 Respiratory Rate 21 09/22/18 16:51 Respiratory Effort 09/22/18 16:51 Blood Pressure 122/87 09/22/18 16:51 Blood Pressure Position Supine 09/22/18 16:51 Pulse Oximetry 95 09/22/18 16:51 Oxygen Delivery Method Nasal Cannula 09/22/18 16:51 Oxygen Flow Rate 2 09/22/18 16:51 Pain Level 0 09/22/18 16:51 Lab/Test Results Lab/Test Results: 09/22/18 16:54 Blood Blood Culture - Pending 09/22/18 16:54 Blood Blood Culture - Pending
[2018-09-22] MEDS: Acetaminophen Solution 160 MG/5 ML CUP 320 MG PO (17:00)
[2018-09-22 17:04] LABS: Absolute Eosinophil Count 0.02 k/cumm (0.0-0.7); Basophils % 0.1; Eosinophils % 0.1; HCT 32.8 % (36.0-46.0); HGB 10.4 g/dL (12.0-15.5); Immature Grans % 0.4; Mean Corp. HGB Concentration 31.7 g/dL (32.0-36.0); Mean Corpuscular Hemoglobin 25.6 pg (27.0-33.0); Mean Corpuscular Volume 80.6 fL (80-95); Mean Platelet Volume 10.4 fL (8.0-11.0); Platelet Count 336 x1000/uL (130-400); RBC 4.07 m/cumm (4.00-5.20); RBC Distribution Width 15.5 % (11.7-14.6); White Blood Cell Count 22.38 k/cumm (4.4-10.8)
[2018-09-22 17:05] LABS: Absolute Basophil Count 0.02 k/cumm (0.0-0.2); Lactate-non-spesis 0.8 mmol/l (0.6-1.4)
[2018-09-22] MEDS: Albuterol/Ipratropium 3 ML UPD VIAL UPD (17:05)
[2018-09-22 17:16] LABS: Absolute Lymphocyte Count 1.79 k/cumm (1.2-3.4); Absolute Neutrophil Count 19.69 k/cumm (1.2-6.7); Poikilocytes 1+; Polychromasia Present
[2018-09-22 17:18] LABS: Hypochromasia 2+
[2018-09-22 17:23] LABS: PTT Activated 26.7 sec (21.0-31.4); Prothrombin Time 11.5 sec (9.3-11.0)
[2018-09-22 17:24] LABS: INR 1.1 (0.9-1.1)
[2018-09-22 17:25] LABS: ALT 23 U/L (12-78); AST 19 U/L (15-37); Albumin 1.9 g/dL (3.4-5.0); Alkaline Phosphatase 154 U/L (46-116); BUN 10 mg/dL (7-18); Bilirubin, Total 0.4 mg/dL (0.2-1.0); CREATININE 0.69 mg/dL (0.55-1.02); Calcium 8.7 mg/dL (8.5-10.1); Chloride 100 mmol/L (98-107); Glucose 132 mg/dL (70-100); Magnesium 1.5 mg/dL (1.8-2.4); Potassium 3.5 mmol/L (3.5-5.1); Sodium 137 mmol/L (136-145); Total Protein 7.1 g/dL (6.4-8.2)
[2018-09-22 17:28] LABS: NT-proBNP 560 pg/mL; Troponin I < 0.02 ng/mL (0.00-0.06)
[2018-09-22 17:43] LABS: Bilirubin Negative (Negative); Blood Negative (Negative); Clarity Clear; Glucose Negative (Negative); Ketones Negative (Negative); Leukocyte Esterase Negative (Negative); Nitrite Negative (Negative); Urobilinogen 0.2 EU/dL (Up TO 0.2)
[2018-09-22 17:54] LABS: Bacteria Rare HPF (Negative); Casts 0-2 Fine Granular LPF (Negative); Crystals Negative HPF (Negative); Epithelial Cells Many HPF (Negative); Mucus Moderate (Negative); Other Cells Rare Renal (Negative); RBC Negative (0-2)
[2018-09-22 17:55] LABS: C & S Indicated? No/Sq. Contamination
--- NOTE | 2018-09-22 18:21 | DI.VRAD_ITS ---
EXAM: XR Chest, 2 Views EXAM DATE/TIME: 09/22/2018 4:56 PM CLINICAL HISTORY: 63 years old, female; Signs and symptoms; Cough and shortness of breath; Patient HX: SOB, cough; Additional info: R/O pneumonia TECHNIQUE: Imaging protocol: XR of the chest, 2 views. COMPARISON: CR XR PORTABLE CHEST AP 08/11/2018 1:04 PM FINDINGS: Lungs: Small patchy density in the posterior right lower lobe consistent with pneumonia in the proper clinical setting. Differential diagnosis includes atelectasis. Pleural space: Tiny right pleural effusion. Mild peribronchial cuffing and fissural thickening, suspicious for mild interstitial edema. Heart/Mediastinum: Unremarkable. No cardiomegaly. Bones/joints: Unremarkable. IMPRESSION: 1. Small right lower lobe airspace disease consistent with pneumonia in the proper clinical setting. Differential diagnosis includes atelectasis. 2. Minimal peribronchial cuffing and mild fissure thickening suspicious for mild interstitial edema. 3. Tiny right pleural effusion. Dictated and Authenticated by: Rios Olson MD. Ordering:VALE Corral MD
[2018-09-22] MEDS: Normal Saline 250 ML IV (18:36)
[2018-09-22] MEDS: levoFLOXacin 750 MG/150 ML BAG 100 MG IVPB (18:36)
[2018-09-22] MEDS: Amoxicillin 875/Clav. 125 TAB PO (21:12)
[2018-09-22] MEDS: Doxycycline Hyclate 100 MG CAP 200 MG PO (21:12)
[2018-09-23 08:32] LABS: Diff Comment Manual Differential
== END 2018-09-22 21:05 | disposition home or self-care (01) ==
PROVIDERS: Emergency Provider Physician Assistant
DX: J18.9 Pneumonia, unspecified organism (principal); F88 Other disorders of psychological development; I10 Essential (primary) hypertension
CPT/HCPCS: 36415; 80053; 87040; 93005; 96361; 96365; 99285; 71046; 81003; 81015; 83605; 83735; 83880; 84484; 85025; 85610; 85730; 93010; J1956; J7620

== ENCOUNTER 2018-09-30 04:05 | Emergency (ER) | payer MEDICARE, MEDICAID, SELFPAY ==
[2018-09-30] VITALS (39 sets, daily range): BP systolic 119–142; BP diastolic 75–89; PULSE 88–102; RESP 7–24; TEMP 36.5–37.1; O2SAT 91–100
--- NOTE | 2018-09-30 03:51 | W.ED.GENAD ---
Discharge Plan Disposition Patient Disposition: [facility] (LEVEL 2) [facility] Condition: Good Discharge Details Chief Complaint: SOB Clinical Impression: COPD (chronic obstructive pulmonary disease), Fluid overload Primary Care Provider: Unknown,Unknown ED Provider: Bg Gautam Home Meds and New Rx's Prescriptions: New guaifenesin [Mucinex] 600 mg tablet extended release 12hr 600 mg PO Q12H Qty: 14 RF: 0 prednisone 50 MG tablet 50 mg PO DAILY Qty: 5 RF: 0 No Action loperamide 2 mg Capsule 2 mg Feeding Tube DAILY AM RF: 0 donepezil [Aricept] 10 mg Tablet 10 mg Feeding Tube HS RF: 0 olanzapine [Zyprexa] 5 mg Tablet 10 mg Feeding Tube HS RF: 0 sumatriptan succinate 50 mg Tablet 50 mg PRN PRNRF: 0 methimazole 5 mg Tablet 5 mg Feeding Tube DAILY RF: 0 albuterol sulfate [ProAir HFA] 90 mcg/actuation Hfa Aerosol Inhaler 2 % Inhalation PRN PRNRF: 0 cholecalciferol (vitamin D3) [Vitamin D3] 1,000 unit Capsule 1 tab Feeding Tube DAILY RF: 0 memantine 10 mg Tablet 10 mg Feeding Tube BID RF: 0 Refresh Plus 0.5 % Dropperette 1 ea OU PRN PRNQty: 0 RF: 0 acetaminophen 325 mg Tablet 650 mg Feeding Tube Q4H PRNRF: 0 Jevity 1.2 Lionel 0.06 gram-1.2 kcal/mL Liquid 390 ml Feeding Tube QID RF: 0 furosemide 40 mg tablet 40 mg Feeding Tube DAILY RF: 0 clonazepam 1 mg tablet 1.5 mg Feeding Tube BID RF: 0 amlodipine 5 mg tablet 5 mg Feeding Tube DAILY RF: 0 potassium chloride 20 mEq packet 40 meq Feeding Tube DAILY RF: 0 cyanocobalamin (vitamin B-12) [Vitamin B-12] 500 mcg tablet 1,000 mcg Feeding Tube DAILY RF: 0 ascorbic acid (vitamin C) [Vitamin C] 500 mg tablet 250 mg Feeding Tube BID RF: 0 folic acid 1 mg tablet 1 mg Feeding Tube DAILY RF: 0 imipramine HCl 25 mg tablet 25 mg Feeding Tube HS RF: 0 Floranex 100 million cell granules in packet 1 packet Feeding Tube TID RF: 0 ferrous sulfate 220 mg (44 mg iron)/5 mL elixir 325 mg Feeding Tube BID RF: 0 Discharge Instructions Additional Instructions: Feel the patient would benefit from notable and aggressive pulmonary toilet. Recommend the following: #1: Mucinex or mucolytic therapy #2: Aggressive pulmonary percussion therapy #3: Aggressive incentive spirometry #4: Albuterol every 6 hours #5: 50 mg prednisone daily for 5 days Medical Decision Making This is a 63-year-old female who is DNR/DNI with a past medical history of CHF, schizophrenia, hypertension, hypothyroidism, who presents today for respiratory concern. Review of previous echocardiogram revealed that she had notable systolic function in the 60s, no other severe abnormality. However the patient is on 40 of Lasix daily. She is recently treated for community-acquired pneumonia with doxycycline and Augmentin at her facility, she had been doing well, however the last few days her symptoms have slowly worsened with rhonchi, cough, edema of her lower extremities. She has had increased respiratory rate but no increase in her oxygen need. EMS did give her 1 DuoNeb prior to arrival noticed normal improvement in her lung sounds. On exam now the patient has notable wheezes and rhonchi, as well as notable upper respiratory rhonchi. She shows no signs of severe respiratory distress whatsoever though. There is pitting edema of her lower extremities. We will get a chest x-ray to rule out fluid overload, give 20 of Lasix, evaluate for any acute cardiac etiology or worsening pneumonia and reassess. 6:39 AM Patient's laboratory workup is returned, no significant white count, no evidence of bandemia, hemoglobin is stable, electrolytes within normal limits, renal function stable, troponin EKG benign. Urinalysis shows no evidence of, chest chest x-ray demonstrates evidence of grossly stable interstitial edema with a small right pleural effusion, with no significant worsening. C. difficile testing was negative. After breathing treatments the patient's lung sounds notably improved, and the patient has had notable urine output with the Lasix here. She continues to saturate at 96-100% on her baseline 2 L. With her stable chest x-ray, notable improvement with breathing treatments and Lasix, no white count, no bandemia no fever, no signs of worsening pneumonia, I feel that her signs and symptoms at this time are clinically consistent with mild fluid overload, as well as a COPD exacerbation. Feel that the patient be discharged home with notably reassuring vital signs, however we do recommend mucolytic's, 5-day steroid burst, incentive spirometry, percussive therapy at her facility for her back, continue pulmonary toilet, and close observation. This was discussed with the nurse on the nurse to nurse report prior to discharge. I have extensively reviewed the treatment plan and discharge instructions with the patient. I have addressed all patient concerns at this time. The patient was made aware of what symptoms to monitor for that would warrant a return to the emergency department. Discussed the plan with the patient, they demonstrate verbal understanding and agreement with our assessment and plan at this time. EKG 4: 28 Rate 94, intervals normal, sinus rhythm, no significant ST elevation or depression, flattening of T waves throughout as a nonspecific T wave abnormality. No significant Q waves. COMPARISON: SC XR CHEST 2V PA LATERAL 09/22/2018 5:52 PM FINDINGS: Grossly stable right pleural effusion and right basilar opacity. Mild interstitial edema, grossly stable. No pneumothorax The osseous structures and cardiomediastinal silhouette are grossly stable IMPRESSION: Grossly stable mild interstitial edema and small right pleural effusion/basilar opacity Dictated and Authenticated by: Gopi Skelton MD. HPI General Date/Time Provider Initiated Documentation: 09/30/18 04:23. HPI Narrative: Patient is a 63-year-old female with a history of CHF, schizophrenia, hypertension, hypothyroidism who is DNR/DNI who presents from the [facility]. She was recently here roughly 7-8 days ago, that time she was diagnosed with pneumonia, started on doxycycline and Augmentin as there was concern for an interaction between Levaquin and her Aricept. She was discharged back to the [facility] with 2 L of oxygen, and antibiotics and had been doing well, however over the last 2-3 days [facility] staff feel like she has been worsening. She has had a cough that is been worsening, questionable productivity, no fever, but notable increase in respiratory rate, however her oxygen demands have remained stable. [facility] also noticed some swelling in her lower extremities more so compared to normal. No other complaints or modifying factors. At this time patient denies any complaints whatsoever, she denies chest pain, shortness of breath, fever, chills, vomiting diarrhea, headache, neck pain, numbness tingling or weakness. Of note the patient does normally take 40 mg of Lasix daily. No other significant abnormalities, no other modifying factors. Related Data Home Medications Medication Instructions Recorded Confirmed albuterol sulfate [ProAir HFA] 2 % INHALATION PRN PRN 07/04/18 09/30/18 cholecalciferol (vitamin D3) 1 tab FEEDING TUBE DAILY 07/04/18 09/30/18 [Vitamin D3] donepezil [Aricept] 10 mg FEEDING TUBE HS 07/04/18 09/30/18 loperamide 2 mg FEEDING TUBE DAILY AM 07/04/18 09/30/18 memantine 10 mg FEEDING TUBE BID 07/04/18 09/30/18 methimazole 5 mg FEEDING TUBE DAILY 07/04/18 09/30/18 olanzapine [Zyprexa] 10 mg FEEDING TUBE HS 07/04/18 09/30/18 sumatriptan succinate 50 mg PRN PRN 07/04/18 09/30/18 Refresh Plus 1 ea OU PRN PRN #0 ea 08/20/18 09/30/18 Floranex 1 packet FEEDING TUBE TID 09/30/18 09/30/18 acetaminophen 650 mg FEEDING TUBE Q4H PRN 09/30/18 09/30/18 amlodipine 5 mg FEEDING TUBE DAILY 09/30/18 09/30/18 ascorbic acid (vitamin C) [Vitamin 250 mg FEEDING TUBE BID 09/30/18 09/30/18 C] clonazepam 1.5 mg FEEDING TUBE BID 09/30/18 09/30/18 cyanocobalamin (vitamin B-12) 1,000 mcg FEEDING TUBE DAILY 09/30/18 09/30/18 [Vitamin B-12] ferrous sulfate 325 mg FEEDING TUBE BID 09/30/18 09/30/18 folic acid 1 mg FEEDING TUBE DAILY 09/30/18 09/30/18 furosemide 40 mg FEEDING TUBE DAILY 09/30/18 09/30/18 guaifenesin [Mucinex] 600 mg PO Q12H #14 tab 09/30/18 imipramine HCl 25 mg FEEDING TUBE HS 09/30/18 09/30/18 lactose-reduced food with fibr 390 ml FEEDING TUBE QID 09/30/18 09/30/18 [Jevity 1.2 Lionel] potassium chloride 40 meq FEEDING TUBE DAILY 09/30/18 09/30/18 prednisone 50 mg PO DAILY #5 tab 09/30/18 Previous Rx's Medication Instructions Recorded Refresh Plus 1 ea OU PRN PRN #0 ea 08/20/18 guaifenesin [Mucinex] 600 mg PO Q12H #14 tab 09/30/18 prednisone 50 mg PO DAILY #5 tab 09/30/18 Allergies Allergy/AdvReac Type Severity Reaction Status Date / Time Sulfa (Sulfonamide Allergy Mild Skin Rash Unverified 09/30/18 04:33 Antibiotics) General TIFFANY: 2 Review of Systems Review of Systems All systems reviewed & are unremarkable except as noted in HPI and below PFSH Social History Smoking/Tobacco Use Status: Never Alcohol Intake: never Drug use: Never Substance use type: does not use Household members: none Do you feel safe in your relationship?: Yes Additional Social history: Resident @ [facility] H&R Exam Narrative Exam Narrative: 1.Const: Well-nourished, Well-developed, appearing stated age 2.Eyes: PERRL, no conjunctival injection, and symmetrical lids. 3.ENT: Atraumatic external nose and ears. Moist MM. Neck: Symmetric, trachea midline, No thyromegaly. 4.CVS: +S1/S2, No murmurs or gallops. Peripheral pulses 2+ and equal in all extremities. Brisk capillary refill in all extremities. 5.RESP: Notable crackles and wheezes throughout, notable upper respiratory rhonchi. No signs of severe respiratory distress. 6.GI: Soft, Nontender, No hepatosplenomegaly. No guarding or rebound. G-tube is in place, notable periumbilical hernia is present and nontender 7.MSK: Normocephalic/Atraumatic, Extremities w/o deformity or ttp No cyanosis or clubbing, Normal movement of all extremities. Mild +1-+2 pitting edema of the lower extremities bilaterally. No tenderness or signs of cellulitis 8.Skin: Warm, Dry. No rashes or lesions. 9.Neuro: utility specialist II-XII grossly intact. Sensation grossly intact, no focal neurologic deficits. 10.Psych: (AAO) x3. Appropriate mood and affect
[2018-09-30] MEDS: Furosemide 20 MG/2 ML VIAL (03:55)
--- NOTE | 2018-09-30 04:15 | DI.RAD_ITS ---
SYMPTOM/DIAGNOSIS: COUGH, SOB PORTABLE AP CHEST: Heart size and pulmonary vasculature are within normal limits. There is persistent blunting of the right costophrenic angle suggesting scarring or pleural effusion. Opacity in the right lung base appears stable. The lungs are otherwise clear. No pneumothorax is identified. IMPRESSION: Overall stable appearance of the chest with a small right basilar infiltrate and small right pleural effusion or pleural scarring.
[2018-09-30] MEDS: Albuterol/Ipratropium 3 ML UPD VIAL 6 ML UPD (04:17)
[2018-09-30] MEDS: methylPREDNISolone SUCC 125 MG VIAL IVP (04:18)
[2018-09-30 04:21] LABS: Abs Immature Grans 0.03 k/cumm (0.0-0.09); Absolute Basophil Count 0.03 k/cumm (0.0-0.2); Absolute Eosinophil Count 0.36 k/cumm (0.0-0.7); Absolute Lymphocyte Count 1.22 k/cumm (1.2-3.4); Absolute Monocyte Count 0.97 k/cumm (0.11-0.7); Absolute Neutrophil Count 4.12 k/cumm (1.2-6.7); Basophils % 0.4; Eosinophils % 5.3; HCT 33.3 % (36.0-46.0); HGB 10.1 g/dL (12.0-15.5); Immature Grans % 0.4; Lymphocytes % 18.1; Mean Corp. HGB Concentration 30.3 g/dL (32.0-36.0); Mean Corpuscular Hemoglobin 24.9 pg (27.0-33.0); Mean Corpuscular Volume 82.2 fL (80-95); Monocytes % 14.4; Neutrophils % 61.4; Platelet Count 413 x1000/uL (130-400); RBC 4.05 m/cumm (4.00-5.20); White Blood Cell Count 6.73 k/cumm (4.4-10.8)
[2018-09-30 04:21] LABS: Bilirubin Negative (Negative); Blood Negative (Negative); Clarity Clear; Glucose Negative (Negative); Ketones Negative (Negative); Leukocyte Esterase Negative (Negative); Nitrite Negative (Negative); Urobilinogen 0.2 EU/dL (Up TO 0.2)
[2018-09-30 04:36] LABS: ALT 18 U/L (12-78); AST 24 U/L (15-37); Albumin 2.1 g/dL (3.4-5.0); Alkaline Phosphatase 118 U/L (46-116); Anion Gap 7.6 mmol/L (3-11); BUN 10 mg/dL (7-18); Bilirubin, Total 0.1 mg/dL (0.2-1.0); CO2 28.4 mmol/L (21.0-32.0); Calcium 8.7 mg/dL (8.5-10.1); Chloride 100 mmol/L (98-107); Glucose 124 mg/dL (70-100); NT-proBNP 170 pg/mL; Potassium 3.4 mmol/L (3.5-5.1); Sodium 136 mmol/L (136-145); Total Protein 7.6 g/dL (6.4-8.2)
[2018-09-30 04:37] LABS: Troponin I < 0.02 ng/mL (0.00-0.06)
[2018-09-30 04:38] LABS: Bacteria Rare HPF (Negative); C & S Indicated? No; Casts Negative LPF (Negative); Crystals Few Calcium Oxalate HPF (Negative); Epithelial Cells Rare HPF (Negative); Mucus Trace (Negative); Other Cells Negative (Negative); RBC Negative (0-2); WBC Negative HPF (0-5)
--- NOTE | 2018-09-30 06:14 | DI.VRAD_ITS ---
EXAM: XR Chest, 1 View EXAM DATE/TIME: 09/30/2018 4:00 AM CLINICAL HISTORY: 63 years old, female; Signs and symptoms; Cough and shortness of breath; Patient HX: Cough, SOB, recent pneumonia TECHNIQUE: Imaging protocol: XR of the chest, 1 view. COMPARISON: SC XR CHEST 2V PA LATERAL 09/22/2018 5:52 PM FINDINGS: Grossly stable right pleural effusion and right basilar opacity. Mild interstitial edema, grossly stable. No pneumothorax The osseous structures and cardiomediastinal silhouette are grossly stable IMPRESSION: Grossly stable mild interstitial edema and small right pleural effusion/basilar opacity Dictated and Authenticated by: Gopi Skelton MD. Ordering:SUKH Pederson MD
== END 2018-09-30 07:44 | disposition intermediate care facility (04) ==
PROVIDERS: Emergency Provider Student in an Organized Health Care Education/Training Program
DX: J44.9 Chronic obstructive pulmonary disease, unspecified (principal); E87.70 Fluid overload, unspecified; I10 Essential (primary) hypertension; R33.9 Retention of urine, unspecified
CPT/HCPCS: 36415; 51702; 51798; 80053; 93005; 94640; 96374; 99213; 99285; 71045; 81003; 81015; 83880; 84484; 85025; 87324; 93010; J1941; J2930; J7620

== ENCOUNTER 2018-10-02 00:59 | Emergency (ER) | payer MEDICARE, MEDICAID, SELFPAY ==
[2018-10-02] VITALS (21 sets, daily range): BP systolic 118–127; BP diastolic 80–88; PULSE 100–106; RESP 17–24; TEMP 37.4; O2SAT 90–99
--- NOTE | 2018-10-02 00:51 | W.ED.GENAD ---
Discharge Plan Disposition Patient Disposition: SNF (LEVEL 1) [facility] Condition: Stable Discharge Details Chief Complaint: SOB Clinical Impression: COPD exacerbation Primary Care Provider: Unknown,Unknown ED Provider: Valentín Hickey Home Meds and New Rx's Prescriptions: New levofloxacin 750 mg tablet 750 mg Feeding Tube DAILY Qty: 6 RF: 0 No Action loperamide 2 mg Capsule 2 mg Feeding Tube DAILY AM RF: 0 donepezil [Aricept] 10 mg Tablet 10 mg Feeding Tube HS RF: 0 olanzapine [Zyprexa] 5 mg Tablet 10 mg Feeding Tube HS RF: 0 sumatriptan succinate 50 mg Tablet 50 mg PRN PRNRF: 0 methimazole 5 mg Tablet 5 mg Feeding Tube DAILY RF: 0 albuterol sulfate [ProAir HFA] 90 mcg/actuation Hfa Aerosol Inhaler 2 % Inhalation PRN PRNRF: 0 cholecalciferol (vitamin D3) [Vitamin D3] 1,000 unit Capsule 1 tab Feeding Tube DAILY RF: 0 memantine 10 mg Tablet 10 mg Feeding Tube BID RF: 0 Refresh Plus 0.5 % Dropperette 1 ea OU PRN PRNQty: 0 RF: 0 acetaminophen 325 mg Tablet 650 mg Feeding Tube Q4H PRNRF: 0 Jevity 1.2 Lionel 0.06 gram-1.2 kcal/mL Liquid 390 ml Feeding Tube QID RF: 0 furosemide 40 mg tablet 40 mg Feeding Tube DAILY RF: 0 clonazepam 1 mg tablet 1.5 mg Feeding Tube BID RF: 0 amlodipine 5 mg tablet 5 mg Feeding Tube DAILY RF: 0 potassium chloride 20 mEq packet 40 meq Feeding Tube DAILY RF: 0 cyanocobalamin (vitamin B-12) [Vitamin B-12] 500 mcg tablet 1,000 mcg Feeding Tube DAILY RF: 0 ascorbic acid (vitamin C) [Vitamin C] 500 mg tablet 250 mg Feeding Tube BID RF: 0 folic acid 1 mg tablet 1 mg Feeding Tube DAILY RF: 0 imipramine HCl 25 mg tablet 25 mg Feeding Tube HS RF: 0 Floranex 100 million cell granules in packet 1 packet Feeding Tube TID RF: 0 ferrous sulfate 220 mg (44 mg iron)/5 mL elixir 325 mg Feeding Tube BID RF: 0 guaifenesin [Mucinex] 600 mg tablet extended release 12hr 600 mg PO Q12H Qty: 14 RF: 0 prednisone 50 MG tablet 50 mg PO DAILY Qty: 5 RF: 0 ipratropium-albuterol 0.5 mg-3 mg(2.5 mg base)/3 mL Solution For Nebulization 3 ml Inhalation DIRECTED PRNRF: 0 omeprazole magnesium 2.5 mg Susp,Delayed Release For Recon 40 mg Feeding Tube BID RF: 0 Discharge Instructions Instructions: COPD (Chronic Obstructive Pulmonary Disease) (ED) Additional Instructions: Increase her lasix to 40mg twice daily for the next 3 days and then have her medical provider that takes care of her decide if she should continue this dose Increase her albuterol nebulizers to every 4 hours she was given levofloxacin here today, next dose should be morning of 10/03 Medical Decision Making 63 yo female with multiple medical problems including chf, copd, htn, who comes in with chief complaint of shortness of breath. She was seen here 2 days ago and given nebs and dose of IV lasix, improved and was stable for d/c back to the [facility]. Tonight she had increased sob per ems report and so ems was called and on arrival she had wheezing per their report, she was given duoneb en route. On arrival she arrives in no distress and when asked how she feels states well. She has diffuse wheezing bilaterally, suspect copd, already had steroids withn 24 hours, will give another duoneb. She also is noted to have pitting edema of both lower legs and so could be also chf, will give dose of lasix. Will also obtain ecg and lab work to eval for cardiac ischemia though unlikely given lack of chest pain. No evidence of dvt on exam and PE consistent with copd so doubt PE. Has a cough likely from the copd, afebrile, but will obtain xray to eval for new infiltrate. pt feeling much better after lasix and duoneb. Given increased cough will tx with abx for copd exacerbation. xray negative on my read. She feels well per pt and is in no distress. She remains HD stable. Labs show no significant changes from last visit, wbc 11 from 6 which could be increased from the prednisone she is on pt remains stable, is on 2L NC at her bseline with o2 saturations in the low 90's, in no distress. FEel she is stable for management at the [facility], will have them do nebs every 4 hours and also start abx. First dose given here. Do not feel she requires hospitalization at this time given stable vitals and no distress at this time Differential Diagnosis chf, copd, uri, pna Imaging Data Radiologic Study: Attestation: I personally reviewed and interpreted this imaging study as follows: Imaging: X-Ray My impression: small right pleural effusion, no significant change from recent cxr Lab Data Lab results reviewed: Yes I reviewed the patient's lab results. ECG Data Attestation: I personally reviewed and interpreted this ECG (s) as follows: Prior ECG tracings: available for review Interpretation: sinus rhythm, rate of 103, no acute st twave ischemic changes from prior ekg HPI General Mode of arrival: EMS. Date/Time Provider Initiated Documentation: 10/02/18 01:49. Information obtained by: patient and EMS. History of Present Illness 63 year old F presents to the emergency department with the chief complaint of short of breath, described as moderate, Patient reports no radiation. Patient started experiencing this hour(s) (6) No relieving factors improve symptom(s), No exacerbating factors reported . Patient notes cough. Patient did receive the following treatments prior to arrival, none Related Data Home Medications Medication Instructions Recorded Confirmed albuterol sulfate [ProAir HFA] 2 % INHALATION PRN PRN 07/04/18 10/02/18 cholecalciferol (vitamin D3) 1 tab FEEDING TUBE DAILY 07/04/18 10/02/18 [Vitamin D3] donepezil [Aricept] 10 mg FEEDING TUBE HS 07/04/18 10/02/18 loperamide 2 mg FEEDING TUBE DAILY AM 07/04/18 10/02/18 memantine 10 mg FEEDING TUBE BID 07/04/18 10/02/18 methimazole 5 mg FEEDING TUBE DAILY 07/04/18 10/02/18 olanzapine [Zyprexa] 10 mg FEEDING TUBE HS 07/04/18 10/02/18 sumatriptan succinate 50 mg PRN PRN 07/04/18 10/02/18 Refresh Plus 1 ea OU PRN PRN #0 ea 08/20/18 10/02/18 Floranex 1 packet FEEDING TUBE TID 09/30/18 10/02/18 acetaminophen 650 mg FEEDING TUBE Q4H PRN 09/30/18 10/02/18 amlodipine 5 mg FEEDING TUBE DAILY 09/30/18 10/02/18 ascorbic acid (vitamin C) [Vitamin 250 mg FEEDING TUBE BID 09/30/18 10/02/18 C] clonazepam 1.5 mg FEEDING TUBE BID 09/30/18 10/02/18 cyanocobalamin (vitamin B-12) 1,000 mcg FEEDING TUBE DAILY 09/30/18 10/02/18 [Vitamin B-12] ferrous sulfate 325 mg FEEDING TUBE BID 09/30/18 10/02/18 folic acid 1 mg FEEDING TUBE DAILY 09/30/18 10/02/18 furosemide 40 mg FEEDING TUBE DAILY 09/30/18 10/02/18 guaifenesin [Mucinex] 600 mg PO Q12H #14 tab 09/30/18 10/02/18 imipramine HCl 25 mg FEEDING TUBE HS 09/30/18 10/02/18 lactose-reduced food with fibr 390 ml FEEDING TUBE QID 09/30/18 10/02/18 [Jevity 1.2 Lionel] potassium chloride 40 meq FEEDING TUBE DAILY 09/30/18 10/02/18 prednisone 50 mg PO DAILY #5 tab 09/30/18 10/02/18 ipratropium-albuterol 3 ml INHALATION DIRECTED PRN 10/02/18 10/02/18 levofloxacin 750 mg FEEDING TUBE DAILY #6 tab 10/02/18 omeprazole magnesium 40 mg FEEDING TUBE BID 10/02/18 10/02/18 Previous Rx's Medication Instructions Recorded Refresh Plus 1 ea OU PRN PRN #0 ea 08/20/18 guaifenesin [Mucinex] 600 mg PO Q12H #14 tab 09/30/18 prednisone 50 mg PO DAILY #5 tab 09/30/18 levofloxacin 750 mg FEEDING TUBE DAILY #6 tab 10/02/18 Allergies Allergy/AdvReac Type Severity Reaction Status Date / Time Sulfa (Sulfonamide Allergy Mild Skin Rash Unverified 10/02/18 01:29 Antibiotics) General TIFFANY: 3 Review of Systems Review of Systems All systems reviewed & are unremarkable except as noted in HPI and below Constitutional Denies fever(s) and Denies weakness Cardiovascular Denies chest pain Gastrointestinal Denies abdominal pain, Denies nausea and Denies vomiting Genitourinary Denies dysuria Integumentary/Breasts Denies rash Neurologic Denies weakness Endocrine Denies heat intolerance PFSH Medical History Schizophrenia (Chronic) Cognitive developmental delay (Acute) CHF (congestive heart failure) (Chronic) Hypertension (Chronic) Hypothyroidism (Chronic) Surgical History H/O oophorectomy (Acute) History of bilateral tubal ligation (Acute) History of hernia repair (Chronic) Social History Smoking/Tobacco Use Status: Never Alcohol Intake: never Drug use: Never Substance use type: does not use Household members: none Do you feel safe in your relationship?: Yes Additional Social history: Resident @ [facility] H&R Exam Const General: no acute distress Orientation: alert HENMT Head: normal to inspection Ears: external ears normal General nose exam: external nose normal Mouth: moist mucous membranes Eyes General: appearance normal, both eyes and all related structures Neck Neck: normal visual inspection Resp Effort & Inspection: normal respiratory effort and able to speak in complete sentences Cardio Rate: regular rate Skin General skin exam: no rashes or lesions noted Neuro General: alert Extrem General: normal to inspection Psych Mental Status: mental status grossly normal
[2018-10-02 01:14] LABS: Abs Immature Grans 0.05 k/cumm (0.0-0.09); Absolute Basophil Count 0.03 k/cumm (0.0-0.2); Absolute Lymphocyte Count 1.65 k/cumm (1.2-3.4); Absolute Monocyte Count 0.93 k/cumm (0.11-0.7); Absolute Neutrophil Count 8.85 k/cumm (1.2-6.7); Basophils % 0.3; Immature Grans % 0.4; Lymphocytes % 14.3; Mean Corp. HGB Concentration 31.3 g/dL (32.0-36.0); Mean Corpuscular Hemoglobin 25.1 pg (27.0-33.0); Mean Corpuscular Volume 80.2 fL (80-95); Mean Platelet Volume 9.8 fL (8.0-11.0); Monocytes % 8.1; Neutrophils % 76.9; Platelet Count 489 x1000/uL (130-400); RBC 3.99 m/cumm (4.00-5.20); RBC Distribution Width 16.3 % (11.7-14.6); White Blood Cell Count 11.51 k/cumm (4.4-10.8)
--- NOTE | 2018-10-02 01:16 | DI.RAD_ITS ---
SYMPTOM/DIAGNOSIS: SOB PORTABLE AP CHEST: There is blunting of the costophrenic angles bilaterally, small pleural effusion may be present. There are bilateral apparent areas of minimal atelectasis in the lung bases. Right basilar infiltrate not excluded. No gross interval change in appearance from 09/30/18. CONCLUSION: Stable appearance of the chest. Consider pleural effusions and/or right basilar pneumonia. PA and lateral chest requested for further evaluation.
[2018-10-02] MEDS: Normal Saline Flush 10 ML SYR IVP (01:19)
[2018-10-02] MEDS: Furosemide 40 MG/4 ML VIAL IVP (01:19)
[2018-10-02 01:24] LABS: INR 1.1 (0.9-1.1); PTT Activated 25.5 sec (21.0-31.4); Prothrombin Time 10.8 sec (9.3-11.0)
[2018-10-02] MEDS: Albuterol/Ipratropium 3 ML UPD VIAL (01:28)
[2018-10-02 01:30] LABS: ALT 42 U/L (12-78); AST 44 U/L (15-37); Albumin 2.2 g/dL (3.4-5.0); Alkaline Phosphatase 189 U/L (46-116); Anion Gap 5.8 mmol/L (3-11); BUN 16 mg/dL (7-18); Bilirubin, Total 0.2 mg/dL (0.2-1.0); CO2 32.2 mmol/L (21.0-32.0); Calcium 8.5 mg/dL (8.5-10.1); Chloride 101 mmol/L (98-107); Glucose 111 mg/dL (70-100); Magnesium 1.7 mg/dL (1.8-2.4); NT-proBNP 287 pg/mL; Potassium 3.4 mmol/L (3.5-5.1); Sodium 139 mmol/L (136-145); Total Protein 7.5 g/dL (6.4-8.2); Troponin I < 0.02 ng/mL (0.00-0.06)
[2018-10-02] MEDS: levoFLOXacin 500 MG, levoFLOXacin 250 MG 750 MG PO (01:58)
--- NOTE | 2018-10-02 02:24 | DI.VRAD_ITS ---
EXAM: XR Chest, 1 View EXAM DATE/TIME: 10/02/2018 1:00 AM CLINICAL HISTORY: 63 years old, female; Signs and symptoms; Shortness of breath TECHNIQUE: Imaging protocol: XR of the chest, 1 view. COMPARISON: SC XR PORTABLE CHEST AP 09/30/2018 4:09 AM FINDINGS: Lungs: Minimal basilar atelectasis. No consolidation. Pleural space: Unremarkable. No evidence of pneumothorax. Heart/Mediastinum: Unremarkable. Heart size within normal limits for technique. Bones/joints: Unremarkable. IMPRESSION: Minimal basilar atelectasis. Dictated and Authenticated by: Connor Wiley MD. Ordering:SAPPHIRE Laura MD
== END 2018-10-02 02:43 | disposition skilled nursing facility (03) ==
PROVIDERS: Emergency Provider Emergency Medicine
DX: J44.1 Chronic obstructive pulmonary disease with (acute) exacerbation (principal); I10 Essential (primary) hypertension
CPT/HCPCS: 36415; 80053; 87449; 93005; 94640; 96374; 99285; 71045; 83735; 83880; 84484; 85025; 85610; 85730; 93010; J1940; J7620

== ENCOUNTER 2018-10-23 11:31 | Outpatient (REF) | payer MEDICARE, MEDICAID, SELFPAY ==
[2018-10-23 12:33] LABS: Iron 19 ug/dL (50-175)
[2018-10-23 12:40] LABS: Abs Immature Grans 0.01 k/cumm (0.0-0.09); Absolute Basophil Count 0.04 k/cumm (0.0-0.2); Absolute Eosinophil Count 0.41 k/cumm (0.0-0.7); Absolute Lymphocyte Count 1.62 k/cumm (1.2-3.4); Absolute Monocyte Count 0.69 k/cumm (0.11-0.7); Absolute Neutrophil Count 4.57 k/cumm (1.2-6.7); Basophils % 0.5; Eosinophils % 5.6; Immature Grans % 0.1; Lymphocytes % 22.1; Mean Corp. HGB Concentration 30.6 g/dL (32.0-36.0); Mean Corpuscular Hemoglobin 24.2 pg (27.0-33.0); Mean Corpuscular Volume 79.3 fL (80-95); Monocytes % 9.4; Neutrophils % 62.3; Platelet Count 315 x1000/uL (130-400); RBC 4.54 m/cumm (4.00-5.20); RBC Distribution Width 17.7 % (11.7-14.6); White Blood Cell Count 7.34 k/cumm (4.4-10.8)
[2018-10-23 12:56] LABS: Vitamin D 25 Total 48.2 ng/ml (30-100)
[2018-10-23 13:02] LABS: ALT 30 U/L (12-78); AST 23 U/L (15-37); Albumin 2.7 g/dL (3.4-5.0); Alkaline Phosphatase 144 U/L (46-116); Anion Gap 7.3 mmol/L (3-11); BUN 13 mg/dL (7-18); Bilirubin, Total 0.3 mg/dL (0.2-1.0); CO2 30.7 mmol/L (21.0-32.0); CREATININE 0.62 mg/dL (0.55-1.02); Calcium 9.3 mg/dL (8.5-10.1); Chloride 103 mmol/L (98-107); Glucose 87 mg/dL (70-100); Sodium 141 mmol/L (136-145); TSH (W/Ref FT4) 2.43 uIU/mL (0.358-3.74); Total Protein 6.7 g/dL (6.4-8.2); Vitamin B12 863 pg/mL (193-986)
[2018-10-23 13:05] LABS: Folate > 20.0 ng/mL (8.6-20.0)
== END 2018-10-23 11:51 ==
LOC: LBN 11:31
PROVIDERS: Visit Provider Family Medicine
DX: D64.9 Anemia, unspecified (principal); E55.9 Vitamin D deficiency, unspecified; R63.4 Abnormal weight loss; J69.0 Pneumonitis due to inhalation of food and vomit
CPT/HCPCS: 80053; 82306; 82607; 82746; 83540; 84443; 85025

== ENCOUNTER → 2018-12-15 10:00 | Outpatient (BNVA) | payer MEDICARE, MEDICAID, SELFPAY | PROVIDERS: PCP Family Medicine; Referring Provider Family Medicine; Visit Provider Surgery | DX: Z46.89 Encounter for fitting and adjustment of other specified devices (principal); Z93.1 Gastrostomy status; I10 Essential (primary) hypertension | CPT/HCPCS: 99212; 99213 ==

== ENCOUNTER 2019-02-10 13:33 | Outpatient (REF) | payer MEDICARE, MEDICAID, SELFPAY ==
[2019-02-10 14:47] LABS: Abs Immature Grans 0.02 k/cumm (0.0-0.09); Absolute Basophil Count 0.03 k/cumm (0.0-0.2); Absolute Eosinophil Count 0.09 k/cumm (0.0-0.7); Absolute Lymphocyte Count 1.54 k/cumm (1.2-3.4); Absolute Monocyte Count 0.58 k/cumm (0.11-0.7); Basophils % 0.4; Eosinophils % 1.2; HCT 40.2 % (36.0-46.0); HGB 12.3 g/dL (12.0-15.5); Immature Grans % 0.3; Lymphocytes % 20.4; Mean Corp. HGB Concentration 30.6 g/dL (32.0-36.0); Mean Corpuscular Hemoglobin 23.6 pg (27.0-33.0); Mean Corpuscular Volume 77.2 fL (80-95); Mean Platelet Volume 11.4 fL (8.0-11.0); Monocytes % 7.7; RBC 5.21 m/cumm (4.00-5.20); RBC Distribution Width 18.4 % (11.7-14.6); White Blood Cell Count 7.56 k/cumm (4.4-10.8)
[2019-02-10 14:58] LABS: ALT 21 U/L (12-78); AST 14 U/L (15-37); Albumin 3.2 g/dL (3.4-5.0); Alkaline Phosphatase 121 U/L (46-116); Anion Gap 10.7 mmol/L (3-11); BUN 13 mg/dL (7-18); Bilirubin, Total 0.2 mg/dL (0.2-1.0); CO2 28.3 mmol/L (21.0-32.0); CREATININE 0.67 mg/dL (0.55-1.02); Chloride 107 mmol/L (98-107); Glucose 85 mg/dL (70-100); Sodium 146 mmol/L (136-145); Total Protein 7.2 g/dL (6.4-8.2)
[2019-02-10 15:11] LABS: Anisocytosis 1+; Diff Comment Diff Reviewed; Microcytosis 2+
[2019-02-10 15:12] LABS: Platelet Count 300 x1000/uL (130-400); Poikilocytes 1+
== END 2019-02-10 13:53 ==
LOC: LBN 13:33
PROVIDERS: PCP Internal Medicine; Visit Provider Family Medicine
DX: I10 Essential (primary) hypertension (principal); R53.83 Other fatigue
CPT/HCPCS: 80053; 85025

== ENCOUNTER 2019-02-13 01:08 | Outpatient (CLI) | payer MEDICARE, MEDICAID, SELFPAY ==
--- NOTE | 2019-02-13 09:54 | DI.RAD_ITS ---
SYMPTOM/DIAGNOSIS: BACK PAIN LUMBAR SPINE: AP, lateral and bilateral oblique views of the lumbar spine were obtained. There are five lumbar type vertebral bodies. No spondylosis or spondylolisthesis is seen. There is narrowing and a vacuum disc at the T 12-L 1 disc space. Endplate osteophytes are seen at T 12-L 1 and L 5-S 1. There are degenerative changes of the facets from L 3-4 through L 5-S 1. No acute fractures or subluxations are seen. IMPRESSION: Mild degenerative changes in the lumbar spine.
[2019-02-13] MEDS: Omnipaque 350 MG/ML 50 ML BTL IJ (10:23)
[2019-02-13] MEDS: Breeza Beverage 473 ML BTL PO ×2 (11:36)
[2019-02-13] MEDS: Omnipaque 350 MG/ML 100 ML BTL IJ (11:37)
--- NOTE | 2019-02-13 11:38 | DI.CT_ITS ---
SYMPTOM/DIAGNOSIS: F/U LOWER ATTENUATION MASS/CYST CT ABDOMEN AND PELVIS: CT scan of the abdomen and pelvis was performed following the uneventful administration of intravenous and oral contrast material. Comparison is 08/14/18 No acute findings are seen in the lung bases. The liver is normal in size. There is marked thickening of the wall of the distal gallbladder measuring up to 1.2 cm. There is a lack of separation between the gallbladder and this region and the adjacent liver. There is adjacent decreased attenuation in the liver measuring 3 x 2.5 cm There is a stone seen within the gallbladder. There is no biliary ductal dilatation. These findings have developed since the prior examination. No definite pericholecystic fluid is seen. There is infiltration in the adjacent fat. The pancreas is unremarkable as are the spleen and adrenal glands. The right adrenal gland is unremarkable. There is a 1.2 x 1.4 cm left adrenal nodule. The kidneys show normal and symmetric enhancement. Stable hypodense lesions are seen within the kidneys. These likely reflect cysts. The urinary bladder is intact. The reproductive organs are grossly unremarkable. There is diverticulosis seen in the colon but no evidence of acute diverticulitis. The bowel is otherwise unremarkable. No evidence of obstruction is seen. The abdominal aorta is of normal caliber. 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 The artery measures up to 1.8 cm in diameter. No significant abdominal or pelvic adenopathy or ascites is present. No aggressive osseous lesions are seen in the bones. There is again seen a homogeneously low attenuation lesion in the subcutaneous tissues in the anterior abdominal wall. It measures 11.3 cm transverse by 10.3 cm AP by 12.1 cm cranial caudad. This compares with 9.4 transverse x 12.1 cm cranial caudad. There are now thin calcifications seen in the wall of the mass. No internal solid component is identified. IMPRESSION: 1. Slight interval increase in size of the subcutaneous fluid collection in the anterior abdominal wall since 08/14/18 2. Interval development of thickening of the fundus of the gallbladder with infiltration in the adjacent liver. Neoplasm is suspected. inflammatory or infectious process is considered less likely. 3. Left adrenal nodule, unchanged since 08/14/18 4. Diverticulosis of the colon but no evidence of acute diverticulitis 5. 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
== END 2019-02-13 01:28 ==
PROVIDERS: PCP Internal Medicine; Visit Provider Nurse Practitioner Gerontology
DX: M54.5 Low back pain (principal); M25.78 Osteophyte, vertebrae; M47.817 Spondylosis without myelopathy or radiculopathy, lumbosacral region; R22.2 Localized swelling, mass and lump, trunk; K82.8 Other specified diseases of gallbladder; E27.8 Other specified disorders of adrenal gland; K57.30 Diverticulosis of large intestine without perforation or abscess without bleeding
CPT/HCPCS: 72110; 74177; J3490; Q9967

== ENCOUNTER 2019-03-10 16:30 | Outpatient (REF) | payer MEDICARE, MEDICAID, SELFPAY ==
[2019-03-10 14:58] LABS: Anion Gap 6.7 mmol/L (3-11); BUN 12 mg/dL (7-18); CO2 31.3 mmol/L (21.0-32.0); CREATININE 0.66 mg/dL (0.55-1.02); Calcium 8.3 mg/dL (8.5-10.1); Chloride 105 mmol/L (98-107); Glucose 107 mg/dL (70-100); Potassium 3.8 mmol/L (3.5-5.1); Sodium 143 mmol/L (136-145)
== END 2019-03-10 16:50 ==
LOC: LBN 16:30
PROVIDERS: PCP Internal Medicine; Visit Provider Family Medicine
DX: R60.0 Localized edema (principal); Z79.899 Other long term (current) drug therapy
CPT/HCPCS: 80048

== ENCOUNTER 2019-03-31 10:56 | Outpatient (REF) | payer MEDICARE, MEDICAID, SELFPAY ==
[2019-03-31 12:45] LABS: ALT 16 U/L (14-59); AST 18 U/L (15-37); Albumin 3.4 g/dL (3.4-5.0); Alkaline Phosphatase 115 U/L (46-116); Anion Gap 8.1 mmol/L (3-11); BUN 10 mg/dL (7-18); Bilirubin, Total 0.3 mg/dL (0.2-1.0); CO2 32.9 mmol/L (21.0-32.0); CREATININE 0.74 mg/dL (0.55-1.02); Calcium 8.5 mg/dL (8.5-10.1); Chloride 103 mmol/L (98-107); Glucose 99 mg/dL (70-100); Potassium 3.4 mmol/L (3.5-5.1); Sodium 144 mmol/L (136-145); Total Protein 7.3 g/dL (6.4-8.2)
== END 2019-03-31 11:16 ==
LOC: LBN 10:56
PROVIDERS: PCP Internal Medicine; Referring Provider Nurse Practitioner Gerontology; Visit Provider Family Medicine
DX: I10 Essential (primary) hypertension (principal)
CPT/HCPCS: 80053

== ENCOUNTER 2019-05-15 01:24 | Outpatient (CLI) | payer MEDICARE, MEDICAID, SELFPAY ==
--- NOTE | 2019-05-15 07:08 | DI.US_ITS ---
EXAM: US ABDOMEN CLINICAL HISTORY: GALLBLADDER DISEASE, PROBABLE GB CARCINOMA, K82.9, SEE CT SCAN/ASSESS ASCITES TECHNIQUE: Ultrasound abdomen performed using standard protocol. COMPARISON: CT ABDOMEN AND PELVIS W from 02/13/2019 FINDINGS: LIVER: The liver is enlarged. Evaluation of the liver is somewhat compromised due to patient body lowery bitus. There is hepatopetal flow through the portal vein. GALLBLADDER: There is cholelithiasis. Gallbladder wall is thickened up to 5.4 millimeters. There wa s a negative sonographic Hampton sign. No pericholecystic fluid is seen. Portions of the gallbladder cannot be visualized due to patient body habitus. The distal aspect of the gallbladder was not well visualized. KIDNEYS: Kidneys are symmetric in size. No evidence of renal calculi. No evidence of hydronephrosis. No renal mass or cyst identified. BILIARY SYSTEM: Common bile duct measures 7.1 millimeters. No intrahepatic biliary ductal dilation. HAMPTON'S SIGN: Negative. PANCREAS: Obscured due to overlying bowel. SPLEEN: Not enlarged. ABDOMINAL AORTA AND IVC: Visualized portions normal caliber. ASCITES: None seen. There is a 10.9 x 10.5 x 12 centimeter complex vascular lesion in the subcutaneous tissues of the ant erior abdominal wall. This is been present on prior examinations including the CT scan from 02/14/20 19. IMPRESSION: 1. Gallbladder not well visualized due to patient body habitus. 2. Cholelithiasis. No biliary ductal dilatation. 3. 10.9 centimeter complex subcutaneous lesion. This has been present on prior examinations.
== END 2019-05-15 01:44 ==
PROVIDERS: PCP Internal Medicine; Visit Provider Family Medicine
DX: K82.8 Other specified diseases of gallbladder (principal); K80.20 Calculus of gallbladder without cholecystitis without obstruction; R16.0 Hepatomegaly, not elsewhere classified
CPT/HCPCS: 76700

== ENCOUNTER → 2019-06-01 10:17 | Outpatient (BNVA) | payer MEDICARE, MEDICAID, SELFPAY | PROVIDERS: PCP Internal Medicine; Referring Provider Internal Medicine; Visit Provider Surgery | DX: R93.5 Abnormal findings on diagnostic imaging of other abdominal regions, including retroperitoneum (principal); K82.9 Disease of gallbladder, unspecified | CPT/HCPCS: 99213 ==

== ENCOUNTER 2019-07-06 13:25 | Outpatient (REF) | payer MEDICARE, MEDICAID, SELFPAY ==
[2019-07-06 16:29] LABS: Iron 44 ug/dL (50-170); Total Iron Binding Capacity 302 ug/dL (250-450); Transferrin Sat 15 % (15-50)
[2019-07-06 16:41] LABS: ALT 22 U/L (14-59); AST 13 U/L (15-37); Albumin 3.1 g/dL (3.4-5.0); Alkaline Phosphatase 105 U/L (46-116); Anion Gap 7.2 mmol/L (3-11); BUN 9 mg/dL (7-18); Bilirubin, Total 0.2 mg/dL (0.2-1.0); CO2 34.8 mmol/L (21.0-32.0); CREATININE 0.66 mg/dL (0.55-1.02); Calcium 8.8 mg/dL (8.5-10.1); Chloride 102 mmol/L (98-107); Ferritin 19 ng/mL (8-252); Glucose 95 mg/dL (74-106); Potassium 3.6 mmol/L (3.5-5.1); Sodium 144 mmol/L (136-145); Total Protein 6.6 g/dL (6.4-8.2)
[2019-07-07 10:46] LABS: HBs Antibody, Qual Negative (See Note); HBs Antibody, Quant <3.1 mIU/mL (See Note); Hepatitis B Core Antibody Negative (Negative); Hepatitis B surface Ag Negative (Negative); Hepatitis C Ab w Rflx HCV PCR Negative (Negative)
[2019-07-07 11:08] LABS: IgG 1317 mg/dL (610-1,616)
== END 2019-07-06 13:45 ==
LOC: LBN 13:25
PROVIDERS: PCP Family Medicine; Visit Provider Family Medicine
DX: I10 Essential (primary) hypertension (principal); D51.8 Other vitamin B12 deficiency anemias; R53.83 Other fatigue; R60.9 Edema, unspecified; Z11.59 Encounter for screening for other viral diseases
CPT/HCPCS: 80053; 82784; 86704; 86706; 86803; 87340; 82728; 83540; 83550

== ENCOUNTER 2019-07-07 08:01 | Outpatient (REF) | payer MEDICARE, MEDICAID, SELFPAY ==
[2019-07-07 14:32] LABS: Absolute Basophil Count 0.05 k/cumm (0.0-0.2); Absolute Eosinophil Count 0.51 k/cumm (0.0-0.7); Absolute Monocyte Count 0.79 k/cumm (0.11-0.7); Absolute Neutrophil Count 4.47 k/cumm (1.2-6.7); Basophils % 0.6; Eosinophils % 6.6; HCT 39.7 % (36.0-46.0); HGB 11.8 g/dL (12.0-15.5); Lymphocytes % 24.6; Mean Corp. HGB Concentration 29.7 g/dL (32.0-36.0); Mean Corpuscular Hemoglobin 24.5 pg (27.0-33.0); Mean Corpuscular Volume 82.5 fL (80-95); Mean Platelet Volume 10.7 fL (8.0-11.0); Monocytes % 10.2; Platelet Count 371 x1000/uL (130-400); RBC 4.81 m/cumm (4.00-5.20); White Blood Cell Count 7.72 k/cumm (4.4-10.8)
[2019-07-07 14:41] LABS: Lipase 90 U/L (73-393)
[2019-07-08 13:49] LABS: Rheumatoid Factor <7.5 IU/mL (<12.5); Transferrin 233 mg/dL (201-352)
== END 2019-07-07 08:21 ==
LOC: LBN 08:01
PROVIDERS: Surgery; PCP Family Medicine; Visit Provider Family Medicine
DX: R10.11 Right upper quadrant pain (principal); D64.9 Anemia, unspecified; K74.60 Unspecified cirrhosis of liver; R60.9 Edema, unspecified; R53.83 Other fatigue
CPT/HCPCS: 83690; 82784; 82787; 84466; 85025; 86431

== ENCOUNTER 2019-07-13 12:47 | Outpatient (REF) | payer MEDICARE, MEDICAID, SELFPAY ==
[2019-07-13 13:53] LABS: Anion Gap 6.8 mmol/L (3-11); BUN 11 mg/dL (7-18); CO2 35.2 mmol/L (21.0-32.0); CREATININE 0.62 mg/dL (0.55-1.02); Calcium 8.6 mg/dL (8.5-10.1); Chloride 101 mmol/L (98-107); Glucose 146 mg/dL (74-106); Potassium 3.1 mmol/L (3.5-5.1); Sodium 143 mmol/L (136-145)
== END 2019-07-13 13:07 ==
LOC: LBN 12:47
PROVIDERS: PCP Family Medicine; Visit Provider Family Medicine
DX: I50.9 Heart failure, unspecified (principal)
CPT/HCPCS: 80048

== ENCOUNTER 2019-07-14 10:11 | Outpatient (REF) | payer MEDICARE, MEDICAID, SELFPAY ==
[2019-07-14 10:28] LABS: Anion Gap 5.2 mmol/L (3-11); BUN 11 mg/dL (7-18); CO2 35.8 mmol/L (21.0-32.0); CREATININE 0.58 mg/dL (0.55-1.02); Calcium 8.7 mg/dL (8.5-10.1); Chloride 101 mmol/L (98-107); Glucose 116 mg/dL (74-106); Magnesium 1.7 mg/dL (1.8-2.4); Potassium 3.3 mmol/L (3.5-5.1); Sodium 142 mmol/L (136-145)
== END 2019-07-14 10:31 ==
LOC: LBO 10:11
PROVIDERS: PCP Family Medicine; Visit Provider Family Medicine
DX: R60.9 Edema, unspecified (principal); E87.6 Hypokalemia; I10 Essential (primary) hypertension
CPT/HCPCS: 80048; 83735

== ENCOUNTER 2019-07-16 10:47 | Outpatient (REF) | payer MEDICARE, MEDICAID, SELFPAY ==
[2019-07-17 14:16] LABS: Potassium 3.5 mmol/L (3.5-5.1)
== END 2019-07-16 11:07 ==
LOC: LBN 10:47
PROVIDERS: PCP Family Medicine; Visit Provider Family Medicine
DX: I50.9 Heart failure, unspecified (principal)
CPT/HCPCS: 84132

== ENCOUNTER 2019-07-27 12:43 | Outpatient (REF) | payer MEDICARE, MEDICAID, SELFPAY ==
[2019-07-27 13:22] LABS: Abs Immature Grans 0.01 k/cumm (0.0-0.09); Absolute Basophil Count 0.04 k/cumm (0.0-0.2); Absolute Eosinophil Count 0.32 k/cumm (0.0-0.7); Absolute Lymphocyte Count 1.69 k/cumm (1.2-3.4); Absolute Monocyte Count 0.67 k/cumm (0.11-0.7); Absolute Neutrophil Count 4.99 k/cumm (1.2-6.7); Basophils % 0.5; Eosinophils % 4.1; HCT 39.2 % (36.0-46.0); HGB 11.6 g/dL (12.0-15.5); Immature Grans % 0.1 %; Lymphocytes % 21.9; Mean Corp. HGB Concentration 29.6 g/dL (32.0-36.0); Mean Corpuscular Hemoglobin 24.5 pg (27.0-33.0); Mean Corpuscular Volume 82.9 fL (80-95); Mean Platelet Volume 10.6 fL (8.0-11.0); Monocytes % 8.7; Neutrophils % 64.7; Platelet Count 373 x1000/uL (130-400); RBC 4.73 m/cumm (4.00-5.20); RBC Distribution Width 16.7 % (11.7-14.6); White Blood Cell Count 7.72 k/cumm (4.4-10.8)
[2019-07-27 14:07] LABS: ALT 17 U/L (14-59); AST 15 U/L (15-37); Albumin 3.4 g/dL (3.4-5.0); Alkaline Phosphatase 110 U/L (46-116); Anion Gap 6.5 mmol/L (3-11); BUN 12 mg/dL (7-18); Bilirubin, Total 0.2 mg/dL (0.2-1.0); CO2 34.5 mmol/L (21.0-32.0); CREATININE 0.72 mg/dL (0.55-1.02); Calcium 8.8 mg/dL (8.5-10.1); Chloride 104 mmol/L (98-107); Glucose 121 mg/dL (74-106); Sodium 145 mmol/L (136-145); Total Protein 7.2 g/dL (6.4-8.2)
== END 2019-07-27 13:03 ==
LOC: LBN 12:43
PROVIDERS: PCP Family Medicine; Visit Provider Family Medicine
DX: R10.11 Right upper quadrant pain (principal); Z11.59 Encounter for screening for other viral diseases; I10 Essential (primary) hypertension; R53.83 Other fatigue
CPT/HCPCS: 80053; 86704; 86706; 86803; 87340; 85025

== ENCOUNTER 2019-08-18 12:04 | Outpatient (REF) | payer MEDICARE, MEDICAID, SELFPAY ==
[2019-08-18 13:33] LABS: Anion Gap 8.2 mmol/L (3-11); BUN 12 mg/dL (7-18); CO2 32.8 mmol/L (21.0-32.0); CREATININE 0.57 mg/dL (0.55-1.02); Calcium 8.8 mg/dL (8.5-10.1); Chloride 101 mmol/L (98-107); Glucose 94 mg/dL (74-106); Potassium 3.7 mmol/L (3.5-5.1); Sodium 142 mmol/L (136-145)
== END 2019-08-18 12:24 ==
LOC: LBN 12:04
PROVIDERS: PCP Family Medicine; Visit Provider Family Medicine
DX: I10 Essential (primary) hypertension (principal)
CPT/HCPCS: 80048

== ENCOUNTER 2019-09-07 12:16 | Outpatient (REF) | payer MEDICARE, MEDICAID, SELFPAY ==
[2019-09-07 14:09] LABS: Anion Gap 6.5 mmol/L (3-11); BUN 16 mg/dL (7-18); CO2 34.5 mmol/L (21.0-32.0); CREATININE 0.71 mg/dL (0.55-1.02); Calcium 8.9 mg/dL (8.5-10.1); Chloride 103 mmol/L (98-107); Glucose 93 mg/dL (74-106); Potassium 4.2 mmol/L (3.5-5.1); Sodium 144 mmol/L (136-145)
[2019-09-07 14:14] LABS: HCT 41.5 % (36.0-46.0); HGB 12.4 g/dL (12.0-15.5)
== END 2019-09-07 12:36 ==
LOC: LBN 12:16
PROVIDERS: PCP Family Medicine; Visit Provider Family Medicine
DX: I10 Essential (primary) hypertension (principal); R53.83 Other fatigue
CPT/HCPCS: 80048; 85014; 85018

== ENCOUNTER 2019-09-22 09:25 | Outpatient (REF) | payer MEDICARE, MEDICAID, SELFPAY ==
[2019-09-22 10:42] LABS: Iron 47 ug/dL (50-170); Total Iron Binding Capacity 332 ug/dL (250-450); Transferrin Sat 14 % (15-50)
[2019-09-22 10:55] LABS: Ferritin 20 ng/mL (8-252); Magnesium 1.7 mg/dL (1.8-2.4)
== END 2019-09-22 09:45 ==
LOC: LBN 09:25
PROVIDERS: PCP Family Medicine; Visit Provider Family Medicine
DX: D64.9 Anemia, unspecified (principal)
CPT/HCPCS: 82728; 83540; 83550; 83735

== ENCOUNTER 2019-11-09 16:40 | Outpatient (REF) | payer MEDICARE, MEDICAID, SELFPAY | END 2019-11-09 17:00 | LOC: LBN 16:40 | PROVIDERS: PCP Family Medicine; Visit Provider Family Medicine | DX: R00.1 Bradycardia, unspecified (principal); E87.1 Hypo-osmolality and hyponatremia; Z53.8 Procedure and treatment not carried out for other reasons | CPT/HCPCS: 80048 ==

== ENCOUNTER 2019-11-11 18:04 | Outpatient (REF) | payer MEDICARE, MEDICAID, SELFPAY ==
[2019-11-11 16:51] LABS: Anion Gap 2.6 mmol/L (3-11); BUN 16 mg/dL (7-18); CO2 37.4 mmol/L (21.0-32.0); CREATININE 0.78 mg/dL (0.55-1.02); Chloride 100 mmol/L (98-107); Glucose 111 mg/dL (74-106); Potassium 3.8 mmol/L (3.5-5.1); Sodium 140 mmol/L (136-145)
[2019-11-12 13:40] LABS: Iron 33 ug/dL (50-170); Total Iron Binding Capacity 300 ug/dL (250-450); Transferrin Sat 11 % (15-50)
[2019-11-12 13:54] LABS: Ferritin 30 ng/mL (8-252); Magnesium 1.8 mg/dL (1.8-2.4); TSH 2.91 uIU/mL (0.36-3.74)
[2019-11-12 14:06] LABS: FREE T4 1.08 ng/dL (0.76-1.46)
== END 2019-11-11 18:24 ==
LOC: LBN 18:04
PROVIDERS: PCP Family Medicine; Visit Provider Family Medicine
DX: D64.9 Anemia, unspecified (principal); E11.9 Type 2 diabetes mellitus without complications; F20.2 Catatonic schizophrenia; E83.42 Hypomagnesemia; E03.9 Hypothyroidism, unspecified; Z79.899 Other long term (current) drug therapy
CPT/HCPCS: 80048; 82728; 83540; 83550; 83735; 84439; 84443

== ENCOUNTER 2019-11-13 12:46 | Outpatient (REF) | payer MEDICARE, MEDICAID, SELFPAY ==
[2019-11-13 14:36] LABS: Hemoglobin A1C 5.5 % (3.8-5.6)
== END 2019-11-13 13:06 ==
LOC: NCHCN 12:46
PROVIDERS: PCP Family Medicine; Visit Provider Family Medicine
DX: E11.40 Type 2 diabetes mellitus with diabetic neuropathy, unspecified (principal); E03.9 Hypothyroidism, unspecified
CPT/HCPCS: 83036; 84443

== ENCOUNTER 2020-01-01 12:55 | Outpatient (REF) | payer MEDICARE, MEDICAID, SELFPAY ==
[2020-01-01 15:02] LABS: HCT 42.8 % (36.0-46.0); HGB 13.4 g/dL (12.0-15.5)
== END 2020-01-01 13:15 ==
LOC: LBN 12:55
PROVIDERS: PCP Family Medicine; Visit Provider Family Medicine
DX: K92.1 Melena (principal)
CPT/HCPCS: 85014; 85018

== ENCOUNTER 2020-01-15 03:39 | Outpatient (CLI) | payer MEDICARE, MEDICAID, SELFPAY ==
[2020-01-15] MEDS: Gadoterate meglumine 20 ML VIAL IVP (11:05)
--- NOTE | 2020-01-15 11:20 | DI.MRI_ITS ---
EXAM: MR ABDOMEN WO/W CLINICAL HISTORY: F/U CIRRHOSIS HEPATOMA,F/U G4 GB,F/U ABNL CT AND US,R93.5 TECHNIQUE: Multiplanar multisequence MRA of the Abdomen was performed. COMPARISON: CT CT CHEST/ABD/PEL W from 01/16/2020 FINDINGS: Liver: No evidence of a hepatic mass is seen. No enhancing lesions are identified. Gallbladder: Cholelithiasis. No biliary ductal dilatation. Pancreas: Unremarkable Spleen: Unremarkable Kidneys: Left renal cyst. Lung bases: Clear Aorta: No aneurysm. Bowel: Unremarkable. IMPRESSION: 1. No evidence of a hepatic mass. 2. Cholelithiasis. No biliary ductal dilatation. DATA REPOSITORY:
== END 2020-01-15 03:59 ==
PROVIDERS: PCP Family Medicine; Visit Provider Internal Medicine Gastroenterology
DX: K80.20 Calculus of gallbladder without cholecystitis without obstruction (principal); Q61.01 Congenital single renal cyst
CPT/HCPCS: 74183

== ENCOUNTER 2020-01-16 18:42 | Inpatient (IN) | payer MEDICARE, MEDICAID, SELFPAY ==
--- NOTE | 2020-01-16 18:45 | DI.RAD_ITS ---
EXAM: XR SOFT TISSUE NECK CLINICAL HISTORY: R/O foreign body. TECHNIQUE: 2D digital imaging was performed. COMPARISON: No exams were available for comparison FINDINGS: BONES: Mild degenerative changes SOFT TISSUE: Normal. No foreign body is identified. The airway appears patent. IMPRESSION: No radiopaque foreign body is identified. DATA REPOSITORY: RADIATION DOSE DELIVERED:
--- NOTE | 2020-01-16 18:45 | DI.RAD_ITS ---
EXAM: XR CHEST 2V PA LATERAL CLINICAL HISTORY: R/O aspiration pneumonia TECHNIQUE: 2D digital imaging was performed. COMPARISON: CR XR PORTABLE CHEST AP from 10/02/2018 FINDINGS: Tortuous aorta. HEART: Normal. PULMONARY VASCULATURE: Normal. LUNGS: Mild basilar scarring versus fibrotic changes. No evidence of infiltrate. PLEURAL SPACE: No pleural effusion or pneumothorax. BONE:Mild degenerative changes in thoracic spine. IMPRESSION: No acute pulmonary findings. DATA REPOSITORY: RADIATION DOSE DELIVERED:
[2020-01-16 18:46] VITALS: BP 130/93; PULSE 104; RESP 20; TEMP 37.1; O2SAT 96
[2020-01-16 18:50] VITALS: RESP 20
--- NOTE | 2020-01-16 18:57 | W.ED.GENAD ---
Discharge Plan Disposition Patient Disposition: [facility]IENT Condition: Stable Discharge Details Chief Complaint: GenMedical Clinical Impression: Dysphagia Admit Date/Time: 01/16/20 22:38 Admit Provider: Clarisse Barrera Attending Provider: Clarisse Barrera Primary Care Provider: Ann Marie Roa ED Provider: Anika Gomes Discharge Data Discharge Date/Time-TO BE ENTERED AT DEPARTURE: 01/16/20 23:30 Medical Decision Making 64-year-old female presents via EMS with feeling of foreign body stuck in throat. Patient reports that she was at lunch when she ate a piece of chicken felt to get stuck in her throat, had an episode of emesis where she vomited a piece of chicken and some blood since then has vomited multiple times and has increased mucus production. She does have a history of CHF, cognitive development delay, hypertension, hypothyroidism schizophrenia and aspiration pneumonia. She does have slurred speech is at her baseline at this time. Patient recently had a PEG tube taken out in November, does have a history of dysphagia and esophageal dysmotility. 1950: Informed by residential treatment staff that patient had 2 episodes of spitting up thick white frothy sputum type material. They are having difficulty getting blood patient was poked approximately 3 times for an IV and lab was called to get labs drawn on patient. Patient is on her way to diagnostic imaging at this time. Plan at this time is to review imaging and consult surgery regarding possible ingested retained foreign body. Imaging protocol: XR of the chest Views: 2 views. COMPARISON: SC XR PORTABLE CHEST AP 10/02/2018 1:12 AM FINDINGS: Lungs: The lung volumes are increase suggestive of COPD. The lungs are clear. No pulmonary consolidation. Pleural space: No pleural effusion or pneumothorax. Heart/Mediastinum: The cardiomediastinal silhouette and pulmonary vasculature are within normal limits. Bones/joints: Unremarkable. IMPRESSION: No acute abnormality. Imaging protocol: XR of the soft tissues of the neck. COMPARISON: CT neck w 07/27/2018 2:36 PM FINDINGS: Airway: The upper airway is patent. Retropharyngeal space: The retropharyngeal soft tissues are normal. Soft tissues: No radiographic evidence of epiglottitis. No radiopaque foreign body identified. Bones/joints: Mild degenerative spondylosis of the cervical spine. IMPRESSION: No radiopaque foreign body identified. Thank you for allowing us to participate in the care of your patient. Dictated and Authenticated by: Rios Olson MD 2047: Spoke with Dr. Bess for consultation regarding patient and possible esophageal stricture. She agrees that this is not an emergency situation at this time and patient can follow-up at a later time. residential treatment staff informed me that patient is able to drink some water and hold it down without further emesis or spitting up saliva. Plan is to transfer patient back [place] [facility] outpatient follow-up with surgery for a scope if needed at a later time. 2099: Spoke with Sussy DUNLAP at the [facility] who reports that emesis of sputum began after med pass at 1600. Patient has vomited x 6 times since that. Sending patient home on IV fluids not an option at this time. 2118: Spoke with Dr. Stahl hospitalist regarding possible admission of patient due to continued spit up of saliva type material. She requests a CT of the chest abdomen pelvis with attempting p.o. contrast if patient is able to tolerate to evaluate esophagus. At this time recommend admission due to unable to swallow for possible foreign body esophageal obstruction versus esophageal stricture. 2217: CT results obtained which are noted below. PROCEDURE INFORMATION: Exam: CT Chest With Contrast Exam date and time: 01/16/2020 9:43 PM Age: 64 years old Clinical indication: Vomiting TECHNIQUE: Imaging protocol: Computed tomography of the chest with intravenous contrast. Contrast material: OMNIPAQUE 350; Contrast volume: 100 ml; Contrast route: INTRAVENOUS (IV); COMPARISON: CT ABDOMEN PELVIS W 02/13/2019 11:30 AM FINDINGS: Lungs: Unremarkable. No consolidation. No masses. Pleural space: Unremarkable. No pneumothorax. No pleural effusion. Heart: Unremarkable. No cardiomegaly. No pericardial effusion. Mediastinal space: Fluid throughout the esophagus which makes the patient vulnerable to aspiration. No evidence of distal esophageal mechanical obstruction. Clinically correlate. Aorta: Unremarkable. No aortic aneurysm. Lymph nodes: Unremarkable. No enlarged lymph nodes. Bones/joints: Unremarkable. No acute fracture. Soft tissues: Unremarkable. IMPRESSION: Fluid throughout the esophagus which makes the patient vulnerable to aspiration. No evidence of distal esophageal mechanical obstruction. Clinically correlate. CT ABDOMEN PELVIS W 02/13/2019 11:30 AM FINDINGS: Liver: Normal. No mass. Gallbladder and bile ducts: Abnormal appearing contracted gallbladder. Consider ultrasound for better visualization. Underlying pathology is not excluded. Pancreas: Normal. No ductal dilation. Spleen: Normal. No splenomegaly. Adrenals: Left adrenal nonspecific nodule measuring 16 mm and 50 Hounsfield units. This is too dense to be a lipid rich adenoma. Lipid poor adenoma, primary or secondary malignancy is not excluded. Kidneys and ureters: 1 cm simple left renal cyst, Bosniak 1 classification. No further workup is recommended. Stomach and bowel: Distal colonic diverticulosis without diverticulitis. Appendix: Unable to identify the appendix. Intraperitoneal space: Unremarkable. No free air. No significant fluid collection. Vasculature: Mild atherosclerosis. Lymph nodes: Unremarkable. No enlarged lymph nodes. Bladder: Unremarkable as visualized. 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 Bones/joints: Unremarkable. No acute fracture. Soft tissues: Partially peripherally calcified 12 cm diameter lesion in the subcutaneous fat of the anterior abdominal pelvic region measures 17 Hounsfield units. Complex cyst or mass is not excluded. Correlate with ultrasound. IMPRESSION: 1. Abnormal appearing contracted gallbladder. Consider ultrasound for better visualization. Underlying pathology is not excluded. 2. Left adrenal nonspecific nodule measuring 16 mm and 50 Hounsfield units. This is too dense to be a lipid rich adenoma. Lipid poor adenoma, primary or secondary malignancy is not excluded. 3. Partially peripherally calcified 12 cm diameter lesion in the subcutaneous fat of the anterior abdominal pelvic region measures 17 Hounsfield units. Complex cyst or mass is not excluded. Correlate with ultrasound. 4. Distal colonic diverticulosis without diverticulitis. 2220: Dr. Barrera re-paged. 2234: Discussed patient case in details and CT results with Dr. Barrera she agrees to admit patient for observation and further evaluation. Medical Records Medical records reviewed: Yes I reviewed the patient's medical records. Medical records narrative: Surgical notes reviewed from June 2018 for PEG placement for dysphagia and esophageal dysmotility. HPI General Mode of arrival: EMS. Date/Time Provider Initiated Documentation: 01/16/20 18:48. Limitations to Documentation: no limitations. Information obtained by: patient, EMS and RN notes reviewed. HPI Narrative: 64-year-old female presents via EMS with feeling of foreign body stuck in throat. Patient reports that she was at lunch when she ate a piece of chicken felt to get stuck in her throat, had an episode of emesis where she vomited a piece of chicken and some blood since then has vomited multiple times and has increased mucus production. She does have a history of CHF, cognitive development delay, hypertension, hypothyroidism schizophrenia and aspiration pneumonia. She does have slurred speech is at her baseline at this time. Patient recently had a PEG tube taken out in November, does have a history of dysphagia and esophageal dysmotility. Related Data Home Medications Medication Instructions Recorded Confirmed donepezil [Aricept] 10 mg PO HS 07/04/18 01/17/20 loperamide 2 mg PO PRN PRN 07/04/18 01/17/20 methimazole 5 mg PO DAILY 07/04/18 01/17/20 sumatriptan succinate 50 mg PO PRN PRN 07/04/18 01/17/20 acetaminophen 650 mg PO TID PRN PRN 09/30/18 01/17/20 amlodipine 5 mg PO DAILY 09/30/18 01/17/20 ascorbic acid (vitamin C) [Vitamin 500 mg PO BID 09/30/18 01/17/20 C] folic acid 1 mg PO DAILY 09/30/18 01/17/20 furosemide 40 mg PO DAILY@1400 09/30/18 01/17/20 imipramine HCl 25 mg PO HS 09/30/18 01/17/20 calcium carbonate-vitamin D3 1 tab PO BID 01/16/20 01/17/20 [Calcium 600 with Vitamin D3] clonazepam 1 mg PO TID 01/16/20 01/17/20 escitalopram oxalate 5 mg PO DAILY 01/16/20 01/17/20 famotidine 20 mg PO DAILY 01/16/20 01/17/20 lisinopril 10 mg PO DAILY 01/16/20 01/16/20 magnesium oxide 400 mg PO DAILY 01/16/20 01/16/20 potassium chloride [Klor-Con M10] 30 meq PO DAILY 01/16/20 01/16/20 Lactobacillus acidoph-L.bulgar 1 packet PO TID 01/17/20 01/17/20 [Floranex] Refresh Plus 1 ea OU DAILY PRN PRN 01/17/20 01/17/20 ferrous sulfate 325 mg PO BID 01/17/20 01/17/20 furosemide 60 mg PO QAM 01/17/20 01/17/20 guaifenesin [Tussin] 200 mg PO Q6H PRN PRN 01/17/20 01/17/20 olanzapine 15 mg PO HS 01/17/20 01/17/20 Allergies Allergy/AdvReac Type Severity Reaction Status Date / Time Sulfa (Sulfonamide Allergy Mild Skin Rash Verified 01/16/20 18:54 Antibiotics) General Stated Complaint: GenMedical TIFFANY: 3 Review of Systems Narrative: Constitutional: Negative for weight loss, has a history of cognitive delay, is able to answer my questions appropriately, well groomed, obese body habitus, appears comfortable. HEENT: Denies trauma, headaches, blurry vision, nasal discharge, reports trouble swallowing after eating a piece of chicken at lunch today. Chest: Denies chest pain, palpitations, irregular rhythm, hypertension. Respiratory: Denies Shortness of breath, cough, hemoptysis. GI: Denies abdominal pain,diarrhea, constipation. Did have emesis x3-4, is complaining of nausea. Does have a history of a cyst to her lower abdomen which is fairly large on observation. : Denies dysuria, hematuria, flank pain, rectal bleeding. Neuro: Denies dizziness, blurry vision, weakness, syncope, headache or facial numbness. Hematologic: Denies easy bruising, intolerance to heat or cold, hair loss. 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 at [facility] on 08/25/2019 Gastric ulcer (Acute) GERD (gastroesophageal reflux disease) (Chronic) Hypertension (Chronic) Hypothyroidism (Chronic) 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 Obesity, morbid, BMI 40.0-49.9 (Acute) Palliative care patient (Acute) Roxi Ramirez Schizophrenia (Chronic) Urinary retention (Acute) UTI (urinary tract infection) (Acute) Weakness on right side of face (Resolved) Surgical History (Updated 01/17/20 @ 01:29 by Clarisse Barrera MD) H/O esophagogastroduodenoscopy (Inactive) and endoscopic ultrasound 08/2019 at [facility] H/O oophorectomy (Acute) History of bilateral tubal ligation (Acute) History of hernia repair (Chronic) Social History Smoking/Tobacco Use Status: Never Alcohol Intake: never Drug use: Never Substance use type: does not use Household members: none Do you feel safe at home: Yes Do you feel safe in your relationship?: Yes Additional Social history: [place] [facility] [employer] Exam Narrative Exam Narrative: Constitutional: Alert and oriented x3. Slurred speech history of cognitive delay, this is her baseline, appears older than stated age. Obese body habitus. Head: Normocephalic, no trauma. Eyes: Pupils PERRLA, Red reflex noted, EOM's intact. Eyelids symmetrical without lesions, discharge, or swelling. ENT: Bilateral TM's WNL, External ear normal to inspection, no mastoid TTP, swelling, or erythema, Nasal turbinates WNL, no nasal discharge. Poor dentition, Posterior pharynx WNL, no exudate. No visualized foreign body, no stridor. Chest: RRR, Normal S1, S2, distal pulses intact. Resp: Lungs clear to auscultation bilaterally, no wheezes, rales, or rhonchi. Musculoskeletal: , 5/5 strength to all four extremities. Abdomen: Obese girth, does have a large palpable mass noted to her right lower quadrant which patient states that she does have a cyst. Skin: No suspicious rashes or lesions. Capillary refill less than 2 sec. Neurologic: Cranial nerves II-XII intact. Alert and oriented x 3. DTR's intact. Hematologic/Lymphatic: No ecchymosis, no lymphadenopathy. Course Vital Signs Vital signs: Vital Signs Temperature 37.1 C 01/16/20 18:46 Pulse 104 H 01/16/20 18:46 Respiratory Rate 20 01/16/20 18:46 Blood Pressure 130/93 H 01/16/20 18:46 Pulse Oximetry 96 01/16/20 18:46 Temperature 37.1 C 01/16/20 18:46 Temperature Source Temporal Artery Scan 01/16/20 18:46 Pulse 104 H 01/16/20 18:46 Respiratory Rate 20 01/16/20 18:50 Respiratory Effort 01/16/20 18:50 Respiratory Depth Normal 01/16/20 18:50 Respiratory Pattern Normal 01/16/20 18:50 Blood Pressure 130/93 H 01/16/20 18:46 Pulse Oximetry 96 01/16/20 18:46 Oxygen Delivery Method Room Air 01/16/20 18:46 Oxygen Flow Rate 0 01/16/20 18:46 Pain Level 0 01/16/20 18:46
--- NOTE | 2020-01-16 19:54 | NUR.NOTE ---
Nursing Note:Patient noted to have spit up clear, thin phlegm twice. States she feels like she has something in her throat still. Scant amount. No difficulty breathing or talking noted.
[2020-01-16 19:56] LABS: Abs Immature Grans 0.02 k/cumm (0.0-0.09); Absolute Basophil Count 0.03 k/cumm (0.0-0.2); Absolute Eosinophil Count 0.22 k/cumm (0.0-0.7); Absolute Lymphocyte Count 1.86 k/cumm (1.2-3.4); Absolute Monocyte Count 0.92 k/cumm (0.11-0.7); Absolute Neutrophil Count 7.63 k/cumm (1.2-6.7); Basophils % 0.3; Eosinophils % 2.1; HCT 43.5 % (36.0-46.0); HGB 13.7 g/dL (12.0-15.5); Immature Grans % 0.2 %; Lactate 0.9 mmol/L (0.6-1.4); Lymphocytes % 17.4; Mean Corp. HGB Concentration 31.5 g/dL (32.0-36.0); Mean Corpuscular Hemoglobin 27.1 pg (27.0-33.0); Mean Corpuscular Volume 86.1 fL (80-95); Mean Platelet Volume 9.9 fL (8.0-11.0); Monocytes % 8.6; Neutrophils % 71.4; Platelet Count 307 x1000/uL (130-400); RBC 5.05 m/cumm (4.00-5.20); RBC Distribution Width 15.4 % (11.7-14.6); White Blood Cell Count 10.68 k/cumm (4.4-10.8)
[2020-01-16 20:11] LABS: ALT 22 U/L (14-59); AST 22 U/L (15-37); Albumin 3.5 g/dL (3.4-5.0); Alkaline Phosphatase 113 U/L (46-116); Anion Gap 5.9 mmol/L (3-11); BUN 10 mg/dL (7-18); Bilirubin, Total 0.3 mg/dL (0.2-1.0); CO2 34.1 mmol/L (21.0-32.0); CREATININE 0.72 mg/dL (0.55-1.02); Calcium 8.8 mg/dL (8.5-10.1); Chloride 102 mmol/L (98-107); Glucose 124 mg/dL (74-106); Sodium 142 mmol/L (136-145); Total Protein 7.7 g/dL (6.4-8.2)
[2020-01-16] MEDS: Normal Saline 1,000 ML 150 ML IV (20:37)
--- NOTE | 2020-01-16 20:39 | DI.VRAD_ITS ---
PROCEDURE INFORMATION: Exam: XR Chest, 2 Views Exam date and time: 01/16/2020 8:24 PM Age: 64 years old Clinical indication: Other: R/O aspiration pneumonia TECHNIQUE: Imaging protocol: XR of the chest Views: 2 views. COMPARISON: SC XR PORTABLE CHEST AP 10/02/2018 1:12 AM FINDINGS: Lungs: The lung volumes are increase suggestive of COPD. The lungs are clear. No pulmonary consolidation. Pleural space: No pleural effusion or pneumothorax. Heart/Mediastinum: The cardiomediastinal silhouette and pulmonary vasculature are within normal limits. Bones/joints: Unremarkable. IMPRESSION: No acute abnormality. Dictated and Authenticated by: Rios Olson MD. Ordering:TOSHIA Donaldson MD
--- NOTE | 2020-01-16 20:41 | DI.VRAD_ITS ---
PROCEDURE INFORMATION: Exam: XR Soft Tissue Neck Exam date and time: 01/16/2020 8:24 PM Age: 64 years old Clinical indication: Other: R/O foreign body TECHNIQUE: Imaging protocol: XR of the soft tissues of the neck. COMPARISON: CT neck w 07/27/2018 2:36 PM FINDINGS: Airway: The upper airway is patent. Retropharyngeal space: The retropharyngeal soft tissues are normal. Soft tissues: No radiographic evidence of epiglottitis. No radiopaque foreign body identified. Bones/joints: Mild degenerative spondylosis of the cervical spine. IMPRESSION: No radiopaque foreign body identified. Dictated and Authenticated by: Rios Olson MD. Ordering:TOSHIA Donaldson MD
--- NOTE | 2020-01-16 21:15 | DI.CT_ITS ---
EXAM: CT CHEST/ABD/PEL W CLINICAL HISTORY: Vomiting TECHNIQUE: Imaging Protocol: Axial computed tomography images with coronal and sagittal reformatted images were created and reviewed CONTRAST MATERIAL: Intravenous: Omnipaque 350 Contrast volume:100 ml Oral: / no COMPARISON: PELVIC CT OF 02/13/19 FINDINGS CHEST Tracheobronchial tree: Patent where visualized. Mediastinum and [place]: No dominant adenopathy or fluid collection. Pulmonary parenchyma: No consolidation or dominant measurable mass. No architectural distortion. Pleura: No effusion or pneumothorax. Lymph nodes: Within normal limits. Aorta: Thoracic portion non-dilated. Heart: Normal size Bones: Degenerative changes and scoliosis. The esophagus is mildly distended with fluid which could indicate reflux. There is no gross evidence of a mass. ABDOMEN: Exam is limited by patient motion and body habitus. Liver: Mild fatty infiltration.. No measurable mass. Gallbladder and biliary tract: No biliary dilatation. The gallbladder is somewhat contracted and show s probable stones. These were demonstrated on previous MRI. Pancreas: Normal density, no abnormal calcifications or inflammatory process. Spleen: Normal. Kidneys: Normal size, contour and axis. No radiodense stones or obstructive uropathy. No masses seen. Small left renal cyst. Adrenal glands: Stable tiny left adrenal nodule . Aorta: Abdominal portion non-dilated. Lymph nodes: Within normal limits. PELVIS: Bladder: Symmetric distention, no gross wall thickening. Bowel: No obstruction or bowel wall thickening. Diverticulosis without evidence of diverticulitis. Peritoneal cavity: No ascites, collection or mesenteric inflammatory response. Bones: Within normal limits. Reproductive organs: Within normal limits. Soft tissues: Stable peripherally calcified cystic lesion in the anterior abdominal wall. IMPRESSION: 1. Fluid in the esophagus. The findings could indicate reflux. 2. Contracted gallbladder with stones. 3. Diverticulosis without evidence of stones. RADIATION DOSE DELIVERED: DATA REPOSITORY: All CT scans at this facility are submitted to the National Radiology Data Registry (NRDR) Dose Index Registry (DIR) with the [employer] (A[employer]). RADIATION OPTIMIZATION: All CT scans at this facility use at least one of these dose optimization te chniques: automated exposure control; mA and/or kV adjustment per patient size (includes targeted exa ms where dose is matched to clinical indication); or iterative reconstruction.
[2020-01-16 21:23] VITALS: BP 144/87; PULSE 85; RESP 20; O2SAT 96
[2020-01-16] MEDS: Omnipaque 350 MG/ML 100 ML BTL IJ (21:51)
[2020-01-16] MEDS: Normal Saline - Diluent 50 ML VIAL IV (21:52)
--- NOTE | 2020-01-16 22:12 | DI.VRAD_ITS ---
PROCEDURE INFORMATION: Exam: CT Chest With Contrast Exam date and time: 01/16/2020 9:43 PM Age: 64 years old Clinical indication: Vomiting TECHNIQUE: Imaging protocol: Computed tomography of the chest with intravenous contrast. Contrast material: OMNIPAQUE 350; Contrast volume: 100 ml; Contrast route: INTRAVENOUS (IV); COMPARISON: CT ABDOMEN PELVIS W 02/13/2019 11:30 AM FINDINGS: Lungs: Unremarkable. No consolidation. No masses. Pleural space: Unremarkable. No pneumothorax. No pleural effusion. Heart: Unremarkable. No cardiomegaly. No pericardial effusion. Mediastinal space: Fluid throughout the esophagus which makes the patient vulnerable to aspiration. No evidence of distal esophageal mechanical obstruction. Clinically correlate. Aorta: Unremarkable. No aortic aneurysm. Lymph nodes: Unremarkable. No enlarged lymph nodes. Bones/joints: Unremarkable. No acute fracture. Soft tissues: Unremarkable. IMPRESSION: Fluid throughout the esophagus which makes the patient vulnerable to aspiration. No evidence of distal esophageal mechanical obstruction. Clinically correlate. PROCEDURE INFORMATION: Exam: CT Abdomen And Pelvis With Contrast Exam date and time: 01/16/2020 9:43 PM Age: 64 years old Clinical indication: Vomiting TECHNIQUE: Imaging protocol: Computed tomography of the abdomen and pelvis with intravenous contrast. COMPARISON: CT ABDOMEN PELVIS W 02/13/2019 11:30 AM FINDINGS: Liver: Normal. No mass. Gallbladder and bile ducts: Abnormal appearing contracted gallbladder. Consider ultrasound for better visualization. Underlying pathology is not excluded. Pancreas: Normal. No ductal dilation. Spleen: Normal. No splenomegaly. Adrenals: Left adrenal nonspecific nodule measuring 16 mm and 50 Hounsfield units. This is too dense to be a lipid rich adenoma. Lipid poor adenoma, primary or secondary malignancy is not excluded. Kidneys and ureters: 1 cm simple left renal cyst, Bosniak 1 classification. No further workup is recommended. Stomach and bowel: Distal colonic diverticulosis without diverticulitis. Appendix: Unable to identify the appendix. Intraperitoneal space: Unremarkable. No free air. No significant fluid collection. Vasculature: Mild atherosclerosis. Lymph nodes: Unremarkable. No enlarged lymph nodes. Bladder: Unremarkable as visualized. 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 Bones/joints: Unremarkable. No acute fracture. Soft tissues: Partially peripherally calcified 12 cm diameter lesion in the subcutaneous fat of the anterior abdominal pelvic region measures 17 Hounsfield units. Complex cyst or mass is not excluded. Correlate with ultrasound. IMPRESSION: 1. Abnormal appearing contracted gallbladder. Consider ultrasound for better visualization. Underlying pathology is not excluded. 2. Left adrenal nonspecific nodule measuring 16 mm and 50 Hounsfield units. This is too dense to be a lipid rich adenoma. Lipid poor adenoma, primary or secondary malignancy is not excluded. 3. Partially peripherally calcified 12 cm diameter lesion in the subcutaneous fat of the anterior abdominal pelvic region measures 17 Hounsfield units. Complex cyst or mass is not excluded. Correlate with ultrasound. 4. Distal colonic diverticulosis without diverticulitis. Dictated and Authenticated by: Inder Gardner MD. Ordering:TOSHIA Donaldson MD
[2020-01-17] VITALS (15 sets, daily range): BP systolic 104–138; BP diastolic 68–95; PULSE 82–106; RESP 18–24; TEMP 36.7–37.5; O2SAT 93–99
[2020-01-17] MEDS: Normal Saline 1,000 ML 150 ML IV
[2020-01-17] MEDS: POTASSIUM CHLORIDE 20 MEQ/100 ML BAG 50 MEQ IVPB ×2 (00:40→03:00)
[2020-01-17] MEDS: Heparin 5,000 UNITS/ML VIAL 5000 UNITS SC (00:40)
--- NOTE | 2020-01-17 00:59 | HPE_ITS ---
Date of service: 01/17/20 Time of Service: 01:01 Assessment and Plan Assessment and plan (1) Dysphagia: Status: Acute Assessment and plan: Appears to be for both liquids and solids and without evidence of mechanical obstruction at GE juntion. Made strict NPO and consult general surgery. I suspect the patient's esophageal dysmotility has worsened and she might have a new gastrostomy tube. Strict aspiration precautions. Consider NGT (the patient declined this at the time of my interview with her). (2) Esophageal dysmotility: Status: Chronic Assessment and plan: As above. The last time the patient was noted to have this, she was in the middle of catatonia - however, at this time she seems to be rather communicative and not at all catatonic. (3) Aspiration pneumonia: Status: Ruled-out Assessment and plan: Both CXR and CT of the chest do not show acute pulmonary disease. Her dyspnea may have to do with ongoing aspiration, however, so her respiratory status should be monitored closely. (4) Hematemesis: Status: Resolved Assessment and plan: x1 in setting of vomiting. No recurrences since. Start PPI and check hematest. Hold chemical DVT ppx. (5) Gallbladder anomaly: Status: Chronic Assessment and plan: The patient has IgG4 disease causing gallbladder f ibrosis. She had a negative EUS in 08/2019 at [facility], and decision was made at this time to watch/wait rather than perform cholecystectomy. The patient did have RUQ/epigastric pain today during the events at the senior care, which may be indicative of her gallbladder disease being symptomatic. The issue of cholecystectomy should be broached again, though there were questions about the patient being a good surgical candidate in the [facility] GI note and I suspect this would have to be done at a tertiary care facility. At this time, she is asymptomatic. General surgery is consulted. Obtain US RUQ. (6) Hematuria: Status: Acute Assessment and plan: Check UA. CT did not show radioopaque kidney stones. The patient has a h/o urinary retention - check bladder scans. (7) Chronic diastolic CHF (congestive heart failure): Status: Chronic Assessment and plan: pro-BNP is the lowest we've seen it at our facility. There is no evidence of fluid overload by either CXR or CT. The lungs do not sound wet clinically. She is mildly tachypenic, however. Because she is NPO, she is getting IV fluids at 75 cc/Hr with low threshold to stop. Obtain venous dopplers to rule out DVT in BLEs given edema. (8) DVT prophylaxis: Status: Acute Assessment and plan: Hold chemical DVT ppx in light of hematemesis. Hold TEDs/SCDs until DVT ruled out. (9) Discharge planning issues: Status: Acute Assessment and plan: DNR/DNI Formerly a hospice patient, but no longer on hospice. Consult palliative care, PT. 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 The patient did report RUQ and epigastric pain at the time, but it has since resolved. She noted a little bit of bright red blood on her plate when she vomited. Since then she has been continuously bringing up/regurgitating clear contents without blood. She was brought to the ED due to concerns for aspiration pneumonia. She has been afebrile since arrival with O2 sats in low 90s on room air. She patient reports a productive cough for a week, but denies shortness of breath. She reports a chronically runny nose, denies fevers, sore throat, chest pain. States having diarrhea every once in a while is normal for her, and she last had it yesterday. The last time she brought up water was 10 minutes ago. She specifically declines an NGT at this time, but we talked about the fact that there is a chance she really might have to have it on this admission, though we would always respect her wishes. Nursing noted that there was blood in her urine today - the patient specifically denies urinary symptoms. She states she has not had a period in 10 years. Review of Systems All systems reviewed & are unremarkable except as noted in HPI and below [facility] Medical History (Updated 01/17/20 @ 02:15 by Clarisse Barrera MD) Aspiration pneumonia (Ruled-out) Asthma (Chronic) Catatonia associated with another mental disorder (Acute) Cholestasis (Acute) Chronic diastolic CHF (congestive heart failure) (Chronic) Cirrhosis (Acute) Cognitive developmental delay (Acute) Dysphagia (Acute) Esophageal dysmotility (Chronic) Falls (Acute) 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 at [facility] on 08/25/2019 Gastric ulcer (Acute) GERD (gastroesophageal reflux disease) (Chronic) Hypertension (Chronic) Hypothyroidism (Chronic) 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 Obesity, morbid, BMI 40.0-49.9 (Acute) Palliative care patient (Acute) Roxi Ramirez Schizophrenia (Chronic) Urinary retention (Acute) UTI (urinary tract infection) (Acute) Weakness on right side of face (Resolved) Surgical History (Updated 01/17/20 @ 01:29 by Clarisse Barrera MD) H/O esophagogastroduodenoscopy (Inactive) and endoscopic ultrasound 08/2019 at [facility] H/O oophorectomy (Acute) History of bilateral tubal ligation (Acute) History of hernia repair (Chronic) Social History Smoking/Tobacco Use Status: Never Alcohol Intake: never Drug use: Never Substance use type: does not use Household members: none Do you feel safe at home: Yes Do you feel safe in your relationship?: Yes Additional Social history: Resident @ [facility] Home Medications and Allergies Home Medications Medication Instructions Recorded Confirmed Type donepezil [Aricept] 10 mg PO HS 07/04/18 01/17/20 History loperamide 2 mg PO PRN PRN 07/04/18 01/17/20 History methimazole 5 mg PO DAILY 07/04/18 01/17/20 History sumatriptan succinate 50 mg PO PRN PRN 07/04/18 01/17/20 History acetaminophen 650 mg PO TID PRN PRN 09/30/18 01/17/20 History amlodipine 5 mg PO DAILY 09/30/18 01/17/20 History ascorbic acid (vitamin C) [Vitamin 500 mg PO BID 09/30/18 01/17/20 History C] folic acid 1 mg PO DAILY 09/30/18 01/17/20 History furosemide 40 mg PO DAILY@1400 09/30/18 01/17/20 History imipramine HCl 25 mg PO HS 09/30/18 01/17/20 History calcium carbonate-vitamin D3 1 tab PO BID 01/16/20 01/17/20 History [Calcium 600 with Vitamin D3] clonazepam 1 mg PO TID 01/16/20 01/17/20 History escitalopram oxalate 5 mg PO DAILY 01/16/20 01/17/20 History famotidine 20 mg PO DAILY 01/16/20 01/17/20 History lisinopril 10 mg PO DAILY 01/16/20 01/16/20 History magnesium oxide 400 mg PO DAILY 01/16/20 01/16/20 History potassium chloride [Klor-Con M10] 30 meq PO DAILY 01/16/20 01/16/20 History Lactobacillus acidoph-L.bulgar 1 packet PO TID 01/17/20 01/17/20 History [Floranex] Refresh Plus 1 ea OU DAILY PRN PRN 01/17/20 01/17/20 History ferrous sulfate 325 mg PO BID 01/17/20 01/17/20 History furosemide 60 mg PO QAM 01/17/20 01/17/20 History guaifenesin [Tussin] 200 mg PO Q6H PRN PRN 01/17/20 01/17/20 History olanzapine 15 mg PO HS 01/17/20 01/17/20 History Allergies Allergy/AdvReac Type Severity Reaction Status Date / Time Sulfa (Sulfonamide Allergy Mild Skin Rash Verified 01/16/20 18:54 Antibiotics) Exam Narrative Exam Narrative: General: Very pleasant obese female, A&Ox3, appears slightly tachypneic at a 30 degree angle in bed Neurological: A&Ox3, slight R facial weakness, no other focal deficits, somewhat slow speech Psychiatric: bright affect, appropriate speech pattern/content Skin: Visible skin intact HEENT: Atraumatic, normocephalic, EOMI, MMM, clear oropharynx, no submandibular or cervical lymphadenopathy, slight goiter, no JVD Cardiovascular: RRR, no m/r/g Lungs: CTAB-diminished breath sounds, slightly tachypneic Gastrointestinal: mid-R abdominal wall fluid collection soft, nontender throughtout abdomen including RUQ, obese Genitourinary: deferred - however, saw urine in hat - does appear blood-tinged Extremities: 3+ pitting edema bilaterally, in compression sleeves, I am unable to palpate pedal pulses due to edema Results Imaging Additional studies: CXR: No acute abnormality. XR soft tissue neck: No radiopaque foreign body identified. CT chest (noncontrast): Fluid throughout the esophagus which makes the patient vulnerable to aspiration. No evidence of distal esophageal mechanical obstruction. Clinically correlate. CT abdomen/pelvis: . Abnormal appearing contracted gallbladder. Consider ultrasound for better visualization. Underlying pathology is not excluded. 2. Left adrenal nonspecific nodule measuring 16 mm and 50 Hounsfield units. This is too dense to be a lipid rich adenoma. Lipid poor adenoma, primary or secondary malignancy is not excluded. 3. Partially peripherally calcified 12 cm diameter lesion in the subcutaneous fat of the anterior abdominal pelvic region measures 17 Hounsfield units. Complex cyst or mass is not excluded. Correlate with ultrasound. 4. Distal colonic diverticulosis without diverticulitis. Labs Result diagrams: 01/16/20 19:42 01/16/20 19:42 Labs: Laboratory Results - last 24 hr 01/16/20 01/16/20 01/16/20 19:42 19:42 19:42 WBC 10.68 RBC 5.05 Hgb 13.7 Hct 43.5 MCV 86.1 MCH 27.1 MCHC 31.5 L RDW 15.4 H Plt Count 307 MPV 9.9 Immature Gran % 0.2 Neutrophils % 71.4 Lymphocytes % 17.4 Monocytes % 8.6 Eosinophils % 2.1 Basophils % 0.3 Absolute Neutrophils 7.63 H Absolute Lymphocytes 1.86 Absolute Monocytes 0.92 H Absolute Eosinophils 0.22 Absolute Basophils 0.03 Sodium 142 Potassium 3.0 L Chloride 102 Carbon Dioxide 34.1 H Anion Gap 5.9 BUN 10 Creatinine 0.72 Estimated GFR/1.73 m2 >= 60.00 Glucose 124 H Lactate 0.9 Calcium 8.8 Total Bilirubin 0.3 AST 22 ALT 22 Alkaline Phosphatase 113 Total Protein 7.7 Albumin 3.5 Last Vital Signs Temp 37.1 C 01/17/20 00:53 Pulse 106 H 01/17/20 00:53 Resp 24 01/17/20 00:53 BP 135/91 H 01/17/20 00:53 Pulse Ox 93 L 01/17/20 00:53 COVID-19 Screening Have you,or household,traveled outside [place] in last 14 days?: No Had IN PERSON contact w/suspected or confirmed C-19 person: No
[2020-01-17] MEDS: Pantoprazole 40 MG VIAL IVP ×2 (01:07→08:34)
[2020-01-17] MEDS: Normal Saline Flush 10 ML SYR IVP ×4 (01:07→18:02)
[2020-01-17 01:58] LABS: NT-proBNP 54 pg/mL (<300)
[2020-01-17 04:56] LABS: Bilirubin Negative (Negative); Blood Negative (Negative); Clarity Clear (Clear); Glucose Negative (Negative); Ketones Negative (Negative); Leukocyte Esterase Negative (Negative); Nitrite Negative (Negative); Specific Gravity 1.015 (1.005-1.025); Urobilinogen 0.2 EU/dL (Up TO 0.2)
[2020-01-17 07:44] LABS: Abs Immature Grans 0.02 k/cumm (0.0-0.09); Absolute Basophil Count 0.03 k/cumm (0.0-0.2); Absolute Eosinophil Count 0.22 k/cumm (0.0-0.7); Absolute Monocyte Count 0.92 k/cumm (0.11-0.7); Absolute Neutrophil Count 7.48 k/cumm (1.2-6.7); Basophils % 0.3; Eosinophils % 2.3; HCT 41.9 % (36.0-46.0); HGB 12.9 g/dL (12.0-15.5); Immature Grans % 0.2 %; Lymphocytes % 11.3; Mean Corp. HGB Concentration 30.8 g/dL (32.0-36.0); Mean Corpuscular Hemoglobin 26.8 pg (27.0-33.0); Mean Corpuscular Volume 86.9 fL (80-95); Mean Platelet Volume 10.8 fL (8.0-11.0); Monocytes % 9.4; Neutrophils % 76.5; Platelet Count 218 x1000/uL (130-400); RBC 4.82 m/cumm (4.00-5.20); RBC Distribution Width 15.5 % (11.7-14.6); White Blood Cell Count 9.77 k/cumm (4.4-10.8)
[2020-01-17 08:05] LABS: TSH (W/Ref FT4) 2.05 uIU/mL (0.36-3.74)
[2020-01-17 08:11] LABS: ALT 19 U/L (14-59); AST 23 U/L (15-37); Albumin 2.9 g/dL (3.4-5.0); Alkaline Phosphatase 96 U/L (46-116); BUN 7 mg/dL (7-18); Bilirubin, Direct 0.09 mg/dL (0.00-0.20); Bilirubin, Total 0.3 mg/dL (0.2-1.0); CREATININE 0.64 mg/dL (0.55-1.02); Calcium 7.8 mg/dL (8.5-10.1); Chloride 105 mmol/L (98-107); Glucose 106 mg/dL (74-106); Magnesium 1.8 mg/dL (1.8-2.4); Potassium 3.7 mmol/L (3.5-5.1); Sodium 143 mmol/L (136-145); Total Protein 6.9 g/dL (6.4-8.2)
[2020-01-17] MEDS: Nystatin POWDER 60 GM JAR TP ×3 (08:34→20:35)
--- NOTE | 2020-01-17 08:48 | PGE_ITS ---
Date of Service Date of service: 01/17/20 Time of Service: 08:49 Objective Objective Clinical Data: Abnormal lab results 01/16/20 01/16/20 01/17/20 Range/Units 19:42 19:42 07:00 MCH (27.0-33.0) pg MCHC 31.5 L (32.0-36.0) g/dL RDW 15.4 H (11.7-14.6) % Absolute Neutrophils 7.63 H (1.2-6.7) k/cumm Absolute Lymphocytes (1.2-3.4) k/cumm Absolute Monocytes 0.92 H (0.11-0.7) k/cumm Potassium 3.0 L (3.5-5.1) mmol/L Carbon Dioxide 34.1 H (21.0-32.0) mmol/L Glucose 124 H (74-106) mg/dL Calcium 7.8 L (8.5-10.1) mg/dL Albumin 2.9 L (3.4-5.0) g/dL 01/17/20 Range/Units 07:00 MCH 26.8 L (27.0-33.0) pg MCHC 30.8 L (32.0-36.0) g/dL RDW 15.5 H (11.7-14.6) % Absolute Neutrophils 7.48 H (1.2-6.7) k/cumm Absolute Lymphocytes 1.10 L (1.2-3.4) k/cumm Absolute Monocytes 0.92 H (0.11-0.7) k/cumm Potassium (3.5-5.1) mmol/L Carbon Dioxide (21.0-32.0) mmol/L Glucose (74-106) mg/dL Calcium (8.5-10.1) mg/dL Albumin (3.4-5.0) g/dL Vital Signs Temperature 98.6 F 01/17/20 08:21 Temperature Source Temporal Artery Scan 01/17/20 08:21 Pulse 98 H 01/17/20 08:21 Respiratory Rate 19 01/17/20 08:21 Respiratory Effort 01/17/20 00:01 Respiratory Depth Deep 01/17/20 00:01 Respiratory Pattern Irregular 01/17/20 00:01 Blood Pressure 117/78 01/17/20 08:21 Pulse Oximetry 98 01/17/20 08:21 Oxygen Delivery Method Nasal Cannula 01/17/20 08:21 Oxygen Flow Rate 2 01/17/20 08:21 Pain Level 0 01/17/20 08:21 Intake & Output 01/16/20 01/16/20 01/17/20 11:59 23:59 11:59 Intake Total 1000 / 1000 100 / 100 Output Total 1000 / 1000 Balance 1000 / 1000 -900 / -900 Weight 259 lb 15.999 oz 271 lb 6.224 oz Intake: IV 1000 / 1000 100 / 100 Output: Urine 1000 / 1000 Other: Urine Color Yellow Urine Appearance Clear Voiding Methods Toilet Laboratory Results WBC 9.77 k/cumm (4.4-10.8) 01/17/20 07:00 RBC 4.82 m/cumm (4.00-5.20) 01/17/20 07:00 Hgb 12.9 g/dL (12.0-15.5) 01/17/20 07:00 Hct 41.9 % (36.0-46.0) 01/17/20 07:00 MCV 86.9 fL (80-95) 01/17/20 07:00 MCH 26.8 pg (27.0-33.0) L 01/17/20 07:00 MCHC 30.8 g/dL (32.0-36.0) L 01/17/20 07:00 RDW 15.5 % (11.7-14.6) H 01/17/20 07:00 Plt Count 218 x1000/uL (130-400) 01/17/20 07:00 MPV 10.8 fL (8.0-11.0) 01/17/20 07:00 Immature Gran % 0.2 % 01/17/20 07:00 Neutrophils % 76.5 01/17/20 07:00 Lymphocytes % 11.3 01/17/20 07:00 Monocytes % 9.4 01/17/20 07:00 Eosinophils % 2.3 01/17/20 07:00 Basophils % 0.3 01/17/20 07:00 Absolute Neutrophils 7.48 k/cumm (1.2-6.7) H 01/17/20 07:00 Absolute Lymphocytes 1.10 k/cumm (1.2-3.4) L 01/17/20 07:00 Absolute Monocytes 0.92 k/cumm (0.11-0.7) H 01/17/20 07:00 Absolute Eosinophils 0.22 k/cumm (0.0-0.7) 01/17/20 07:00 Absolute Basophils 0.03 k/cumm (0.0-0.2) 01/17/20 07:00 Sodium 143 mmol/L (136-145) 01/17/20 07:00 Potassium 3.7 mmol/L (3.5-5.1) D 01/17/20 07:00 Chloride 105 mmol/L (98-107) 01/17/20 07:00 Carbon Dioxide 32.0 mmol/L (21.0-32.0) 01/17/20 07:00 Anion Gap 6.0 mmol/L (3-11) 01/17/20 07:00 BUN 7 mg/dL (7-18) 01/17/20 07:00 Creatinine 0.64 mg/dL (0.55-1.02) 01/17/20 07:00 Estimated GFR/1.73 m2 >= 60.00 (mL/min/1.73m2) 01/17/20 07:00 Glucose 106 mg/dL (74-106) 01/17/20 07:00 Lactate 0.9 mmol/L (0.6-1.4) 01/16/20 19:42 Calcium 7.8 mg/dL (8.5-10.1) L 01/17/20 07:00 Magnesium 1.8 mg/dL (1.8-2.4) 01/17/20 07:00 Total Bilirubin 0.3 mg/dL (0.2-1.0) 01/17/20 07:00 Conjugated Bilirubin 0.09 mg/dL (0.00-0.20) 01/17/20 07:00 AST 23 U/L (15-37) 01/17/20 07:00 ALT 19 U/L (14-59) 01/17/20 07:00 Alkaline Phosphatase 96 U/L (46-116) 01/17/20 07:00 NT-Pro-B Natriuret Pep 54 pg/mL (<300) 01/16/20 19:42 Total Protein 6.9 g/dL (6.4-8.2) 01/17/20 07:00 Albumin 2.9 g/dL (3.4-5.0) L 01/17/20 07:00 TSH 2.05 uIU/mL (0.36-3.74) 01/17/20 07:00 Urine Color Yellow (Yellow) 01/17/20 04:45 Urine Clarity Clear (Clear) 01/17/20 04:45 Urine pH 7.0 (5-8) 01/17/20 04:45 Ur Specific [place] 1.015 (1.005-1.025) 01/17/20 04:45 Urine Protein Negative mg/dL (Negative) 01/17/20 04:45 Urine Ketones Negative mg/dL (Negative) 01/17/20 04:45 Urine Blood Negative (Negative) 01/17/20 04:45 Urine Nitrite Negative (Negative) 01/17/20 04:45 Urine Bilirubin Negative (Negative) 01/17/20 04:45 Urine Urobilinogen 0.2 EU/dL (Up TO 0.2) 01/17/20 04:45 Ur Leukocyte Esterase Negative (Negative) 01/17/20 04:45 Urine Glucose Negative mg/dL (Negative) 01/17/20 04:45
--- NOTE | 2020-01-17 08:54 | INITIAL_ITS ---
- If Service Date Differs Date of service: 01/17/20 Time of Service: 08:54 Care Management Initial Assess REASON FOR HOSPITALIZATION:: Dysphagia for liquids and esophageal dysmotility. PAST MEDICAL HISTORY/PAST SURGICAL HISTORY:: Medical History: Aspiration pneumonia (Ruled-out), Asthma (Chronic), Catatonia associated with another mental disorder (Acute), Cholestasis (Acute), Chronic diastolic CHF (congestive heart failure) (Chronic), Cirrhosis (Acute), Cognitive developmental delay (Acute), Dysphagia (Acute), Esophageal dysmotility (Chronic), Falls (Acute), Gallbladder anomaly (Chronic), 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 at [facility] on 08/25/2019, Gastric ulcer (Acute), GERD (gastroesophageal reflux disease) (Chronic), Hypertension (Chronic), Hypothyroidism (Chronic), 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 Surgical History: H/O esophagogastroduodenoscopy (Inactive) and endoscopic ultrasound 08/2019 at [facility], H/O oophorectomy (Acute),. History of bilateral tubal ligation (Acute), and History of hernia repair (Chronic). PREVIOUS FUNCTIONAL STATUS/SOCIAL/FAMILY SUPPORTS:: Christie is a 64 year old female who is disabled and resides at the [facility] in [place]. A telephone conversation with her sister, Netta, reveals that Christie has been at the [facility] since July of 2018. Christie enjoys watching television, taking trips in the car, and she loves to visit and talk with people. Christie has the support of her two sisters, Netta and Tiny, and brother, Cedric. CURRENT FUNCTIONAL STATUS:: CM is unable to meet with Christie as she is sound asleep when CM comes to meet with her. Christie's sister and DPOA, Netta, reports that Christie is meeting with Dr. Ramirez on Saturday at 7:00 am. A decision will be made at that time regarding how to proceed with her care. CM will continue to follow. ADVANCE DIRECTIVES:: [facility] on file; Casie Herrera (sister) is DPOA. Has patient been provided with info about the portal/API?: Yes Did the patient sign up for the portal?: No CODE STATUS:: DNR/DNI INSURANCE COVERAGE / FINANCIAL ISSUES:: Medicare and Medicaid. CURRENT HOME/COMMUNITY SERVICES/EQUIPMENT:: Palliative care, wheelchair and walker. PRIMARY CARE PHYSICIAN:: Listed as Ann Marie Roa in chart. Sister, Netta, advises Dr. Salas at the [facility] is Christie's PCP. POTENTIAL DISCHARGE NEEDS:: To be determined. PATIENT/FAMILY EDUCATION NEEDS:: Discharge instructions, limitations, follow-up plan of care, including Ask Me Three and self-management. ANTICIPATED BARRIERS TO DISCHARGE:: No anticipated barriers at this time. TRANSPORTATION:: Via [facility] wheelchair van vs ambulance. PLAN:: Anticipate Christie will return to the [facility] when ready per MD. Plan details remain to be determined, pending visit with Dr. Ramirez tomorrow morning. CM will continue to follow.
--- NOTE | 2020-01-17 09:15 | IN_ITS ---
Date of service: 01/17/20 Time of Service: 08:45 PT Notes Visit Reasons: DYSPHAGIA FOR LIQUIDS, ESOPHAGEAL DYSMOTILITY Inpatient Physical Therapy Evaluation Date: January 17, 2020 Referring Doctor: Clarisse Barrera MD PT Orders: PT CONSULT: Limited ability Precautions: Standard fall precautions: Patient is awaiting results of COVID-19 testing Patient Profile/Admitting Diagnosis: Patient is a 64 year old female with cognitive developmental delay presenting to ER with feeling of foreign body stuck in her throat. Was seen by ER on 01/15. She is a resident of [facility]. At lunch, she at a piece of chicken and felt as though some was stuck in her throat. 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 at [facility] on 08/25/2019 Gastric ulcer (Acute) GERD (gastroesophageal reflux disease) (Chronic) Hypertension (Chronic) Hypothyroidism (Chronic) 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 Current Functional Limitations: Patient states she uses a front wheeled walker and or wheelchair for mobility at her residence in the [facility] facility Equipment Owned/DME: Front Wheeled walker and wheelchair Subjective: No pain complaints. Patient agreeable to PT consult. Unsure as if she needs to go to the bathroom or not. Discussed with nursing who was present in the room to bring a bedside commode she can try this if needed. Admits she has not stood up since she is been in the hospital. Admits her baseline at the [facility] is ambulation with front with walker or use of a wheelchair. Objective: General Observation: Very cooperative with PT consult. Very pleasant. Significant swelling throughout bilateral lower extremities. IV port in right upper extremity and is on 2 L supplemental oxygen. States she does not use this typically. Mental Status: Alert and orientated to person and place but not time. Pain: No complaints ROM: Right Upper Extremity: Within functional limits Left Upper Extremity: Within functional Right Lower Extremity: Within functional limit with the exception of ankle range of motion limited due to swelling. Dorsiflexion 5 degrees planter flexion 25 degrees. Left Lower Extremity: Within functional limits with the exception of ankle range of motion limited due to swelling. Dorsiflexion 5 degrees plantar and 25 degrees. Strength: Right Upper Extremity: 4/5 glenohumeral joint flexion and abduction, biceps and tricep. 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 Left Upper Extremity:/5 glenohumeral flexion and abduction, bicep and tricep. 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 Patient form straight leg raise with 0 degree lag. Resisted t dorsiflexion and plantar flexion 4/5. Left Lower Extremity: 4-5 hip flexion, 4/5 quadricep, 4-5 hamstring. Patient perform straight leg raise with 0 degree lag. Resisted dorsiflexion and plantarflexion 4/5. Sensation: Patient reports lack of sensation in bilateral feet. Bed Mobility/Transfers: Bed mobility: Patient required use of mechanical lift help move for up towards the head of bed. Supine?sit: Min assist x1 Sit?stand: Min assist x1 to FWW Stand-sit: Contact-guard from front wheeled walker with verbal cues for hand placement Gait: Contact-guard with use of front wheeled walker 5 feet x 3. Balance: Static Sitting: Good Dynamic Sitting: Good Static Standing: Fair Dynamic Standing: Poor Special Tests: Mobility Limitations Standardized Measure [facility] AM-PAC 6 clicks Basic Mobility Inpatient Short Form: Raw Score: 15 standardized Score: 39.45 CMS Score: 57.7% CMS Modifier: CK Informed Consent/Education: Patient instructed in purpose of PT consult and plan of care. Assessment: Patient is a XT 4 year old female with cognitive development delay referred to physical therapy services with the diagnosis of limited ability. Patient presents with clinical signs and symptoms consistent with diagnosis, as demonstrated by the following impairment level findings: Bilateral lower extremity weakness, balance impairment, edema bilateral lower extremities, decreased cardiovascular endurance. Impairments are contributing to the following functional limitations: Functional transfers, community ambulation, bed mobility. AMPAC score 57.7%. Patient is assessed as a [] Low 09597 X moderate 37617 [] High 79501 complexity based on the following: History: See above Examination: See above Presentation: Evolving Decision Making: Moderate, AM-PAC score of 57.7% Goals: Goals X1 week 1. Supine-Sit: standby assist 2. Sit-Supine: stand by assist 3. Sit-Stand: Standby assist to front wheeled walker 4. Stand-Sit: Standby assist from front wheeled walker 5. Bed-Chair: Standby assist with use of front wheeled walker 6. Chair-Bed: Standby assist with use of front wheeled walker 7. Gait: Patient ambulating 100 feet with use of front wheeled walker and contact-guard Plan of Care/Treatment Plan: 1-2x/day, 7 days/week x 1 week. Plan of care has been reviewed with the MEDICAL STAFF SPECIALIST providing the service under Physical Therapy direction. Initiate Physical Therapy intervention for strengthening, bed mobility, transfers, gait, stairs, balance training, use of assistive device. DISCHARGE RECOMMENDATIONS: Recommend return to [facility] with physical therapy services to promote improved functional mobility and strength TREATMENT CODE/TIME: 65775. 8 45-9 15 Thank you for this referral. ALISIA PerezT Disclaimer: This note was created using [employer] voice recognition software. It was reviewed for major content. However, there may be multiple small discrepancies and errors due to the voice recognition aspects of the software.
--- NOTE | 2020-01-17 09:18 | SCONE_ITS ---
Date of service: 01/17/20 Time of Service: 08:30 Assessment and Plan Assessment and plan (1) Esophageal dysmotility: Status: Chronic Assessment and plan: A\\ 64 year old female with multiple medical problems who has known esophageal dysmotility. CT scan shows fluid and a dilated distal esophagus. Patient and sister do not want an NG tube. There is high risk of aspiration. I do not feel that EGD would add anything to the care or prognosis of this patient. Strongly encourage NG tube due to aspiration risk. Also patient would be able to get her Psych meds through the NG tube to avoid catatonia. This was discussed with Dr. Murray I will sign off. Please let us know if there is anything further we may be able to do to assist in the care of this patient History of Present Illness History of Present Illness Chief Complaint: dysphagia Narrative: Mrs. Gardiner is a 64 year old female who lives at the [place] who was brought to the ED last night after choking of a piece of chicken. CT scan and XRays reviewed today. Ct scan shows a dilated distal esophagus with fluid. NO mechanical obstruction. Patient has a complicated PMHx which includes dysphagia and Gallbladder fibrosis. She is a DNR/DNI and is a Palliative Care patient. Mrs. Gardiner is not able to give me much information. She doesn't complain of abdominal pain. She is still spitting up secretions per nursing staff. Also per Nursing staff patient/ and sister do not want an NG tube or other interventions until she is seen by Dr. Ramirez. 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 at [facility] on 08/25/2019 Gastric ulcer (Acute) GERD (gastroesophageal reflux disease) (Chronic) Hypertension (Chronic) Hypothyroidism (Chronic) 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 Obesity, morbid, BMI 40.0-49.9 (Acute) Palliative care patient (Acute) Roxi Ramirez Schizophrenia (Chronic) Urinary retention (Acute) UTI (urinary tract infection) (Acute) Weakness on right side of face (Resolved) Surgical History (Updated 01/17/20 @ 01:29 by Clarisse Barrera MD) H/O esophagogastroduodenoscopy (Inactive) and endoscopic ultrasound 08/2019 at [facility] H/O oophorectomy (Acute) History of bilateral tubal ligation (Acute) History of hernia repair (Chronic) Social History Smoking/Tobacco Use Status: Never Alcohol Intake: never Drug use: Never Substance use type: does not use Household members: none Do you feel safe at home: Yes Do you feel safe in your relationship?: Yes Additional Social history: Resident @ [facility] [employer] Exam Const General: cooperative and no acute distress Orientation: alert and awake Resp Effort & Inspection: normal respiratory effort Auscultation: clear to auscultation bilaterally and other (gurgling heard from fluid in her esophagus) Cardio Rate: regular rate Rhythm: regular rhythm GI Palpation: soft and nontender Results Last Vital Signs Temp 98.6 F 01/17/20 08:21 Pulse 98 H 01/17/20 08:21 Resp 19 01/17/20 08:21 BP 117/78 01/17/20 08:21 Pulse Ox 98 01/17/20 08:21 Labs Result diagrams: 01/17/20 07:00 01/17/20 07:00 Labs: Laboratory Results - last 24 hr 01/16/20 01/16/20 01/16/20 19:42 19:42 19:42 WBC 10.68 RBC 5.05 Hgb 13.7 Hct 43.5 MCV 86.1 MCH 27.1 MCHC 31.5 L RDW 15.4 H Plt Count 307 MPV 9.9 Immature Gran % 0.2 Neutrophils % 71.4 Lymphocytes % 17.4 Monocytes % 8.6 Eosinophils % 2.1 Basophils % 0.3 Absolute Neutrophils 7.63 H Absolute Lymphocytes 1.86 Absolute Monocytes 0.92 H Absolute Eosinophils 0.22 Absolute Basophils 0.03 Sodium 142 Potassium 3.0 L Chloride 102 Carbon Dioxide 34.1 H Anion Gap 5.9 BUN 10 Creatinine 0.72 Estimated GFR/1.73 m2 >= 60.00 Glucose 124 H Lactate 0.9 Calcium 8.8 Magnesium Total Bilirubin 0.3 Conjugated Bilirubin AST 22 ALT 22 Alkaline Phosphatase 113 NT-Pro-B Natriuret Pep 54 Total Protein 7.7 Albumin 3.5 TSH Urine Color Urine Clarity Urine pH Ur Specific [place] Urine Protein Urine Ketones Urine Blood Urine Nitrite Urine Bilirubin Urine Urobilinogen Ur Leukocyte Esterase Urine Glucose 01/17/20 01/17/20 01/17/20 04:45 07:00 07:00 WBC 9.77 RBC 4.82 Hgb 12.9 Hct 41.9 MCV 86.9 MCH 26.8 L MCHC 30.8 L RDW 15.5 H Plt Count 218 MPV 10.8 Immature Gran % 0.2 Neutrophils % 76.5 Lymphocytes % 11.3 Monocytes % 9.4 Eosinophils % 2.3 Basophils % 0.3 Absolute Neutrophils 7.48 H Absolute Lymphocytes 1.10 L Absolute Monocytes 0.92 H Absolute Eosinophils 0.22 Absolute Basophils 0.03 Sodium 143 Potassium 3.7 D Chloride 105 Carbon Dioxide 32.0 Anion Gap 6.0 BUN 7 Creatinine 0.64 Estimated GFR/1.73 m2 >= 60.00 Glucose 106 Lactate Calcium 7.8 L Magnesium 1.8 Total Bilirubin 0.3 Conjugated Bilirubin 0.09 AST 23 ALT 19 Alkaline Phosphatase 96 NT-Pro-B Natriuret Pep Total Protein 6.9 Albumin 2.9 L TSH Urine Color Yellow Urine Clarity Clear Urine pH 7.0 Ur Specific [place] 1.015 Urine Protein Negative Urine Ketones Negative Urine Blood Negative Urine Nitrite Negative Urine Bilirubin Negative Urine Urobilinogen 0.2 Ur Leukocyte Esterase Negative Urine Glucose Negative 01/17/20 07:00 WBC RBC Hgb Hct MCV MCH MCHC RDW Plt Count MPV Immature Gran % Neutrophils % Lymphocytes % Monocytes % Eosinophils % Basophils % Absolute Neutrophils Absolute Lymphocytes Absolute Monocytes Absolute Eosinophils Absolute Basophils Sodium Potassium Chloride Carbon Dioxide Anion Gap BUN Creatinine Estimated GFR/1.73 m2 Glucose Lactate Calcium Magnesium Total Bilirubin Conjugated Bilirubin AST ALT Alkaline Phosphatase NT-Pro-B Natriuret Pep Total Protein Albumin TSH 2.05 Urine Color Urine Clarity Urine pH Ur Specific [place] Urine Protein Urine Ketones Urine Blood Urine Nitrite Urine Bilirubin Urine Urobilinogen Ur Leukocyte Esterase Urine Glucose
--- NOTE | 2020-01-17 10:09 | W.PM.PROGNOT ---
Date of Service Date of service: 01/17/20 Time of Service: 10:09 Assessment and Plan Assessment and plan (1) Dysphagia: Status: Acute Assessment and plan: Unclear as to the etiology of her esophageal dysmotility. No evidence of mechanical obstruction by CT scan. Patient had prior EGD which demonstrated GERD. I suspect that the patient has some form of achalasia. Present time patient will be kept n.p.o. and given IV fluids and her medications will be converted to parenteral forms wherever available. I spoke with the patient about NG and she indicated that she is willing to have an NG however the sister has spoke with nursing staff indicated that she does not want any procedure done until the patient is seen by Dr. Ramirez. After Dr. Ramirez sees the patient we will have a discussion and see what the patient and her family are willing to proceed with. If the patient is not to have a feeding tube or an NG that I think she should be placed on comfort care and return to the [facility] as there is no indication for acute hospitalization. Qualifiers: Dysphagia type: esophageal phase Qualified Code(s): R13.10 - Dysphagia, unspecified (2) Esophageal dysmotility: Status: Chronic Assessment and plan: As above. (3) Aspiration pneumonia: Status: Ruled-out Assessment and plan: Both CXR and CT of the chest do not show acute pulmonary disease. Her dyspnea may have to do with ongoing aspiration, however, so her respiratory status should be monitored closely. (4) Hematemesis: Status: Resolved Assessment and plan: x1 in setting of vomiting. No recurrences since. Start PPI and check hematest. Hold chemical DVT ppx. (5) Gallbladder anomaly: Status: Chronic Assessment and plan: The patient has IgG4 disease causing gallbladder fibrosis. She had a negative EUS in 08/2019 at [facility], and decision was made at this time to watch/wait rather than perform cholecystectomy. Patient was scheduled for an MRCP of her gallbladder at [facility] as of July 28, 2019. As near as I can tell this was never completed. Dr. Barrera order an ultrasound of her abdomen for tomorrow. However, if the family and Dr. Ramirez decide in conjunction with the patient that no further aggressive treatment will be pursued and I see no point in performing further diagnostic images. (6) Chronic diastolic CHF (congestive heart failure): Status: Chronic Assessment and plan: pro-BNP is the lowest we've seen it at our facility. There is no evidence of fluid overload by either CXR or CT. The lungs do not sound wet clinically. She is mildly tachypenic, however. Because she is NPO, she is getting IV fluids at 75 cc/Hr with low threshold to stop. Obtain venous dopplers to rule out DVT in BLEs given edema. (7) DVT prophylaxis: Status: Acute Assessment and plan: Hold chemical DVT ppx in light of hematemesis. Hold TEDs/SCDs until DVT ruled out. (8) Discharge planning issues: Status: Acute Assessment and plan: DNR/DNI Formerly a hospice patient, but no longer on hospice. Consult palliative care, PT. Subjective Subjective Interval history since last seen: 64-year-old female resident of the [facility] in [facility] who has a history of schizophrenia including previous episodes of catatonia, hypothyroidism, peptic ulcer disease, reflux esophagitis (diagnosed by EGD and endoscopic ultrasound performed August 25, 2019, negative for H. pylori, no abnormalities of the pancreatic duct or common bile duct or pancreas), status post liver biopsy and gallbladder wall biopsy performed June 25, 2019 at [facility] which demonstrated steatohepatitis and lymphoplasmacytic inflammation of the gallbladder wall with increased IgG4 plasma cells. Patient previously had a PEG tube in 2019 because of esophageal dysmotility problems. This was removed in November 2018. Patient was sent in last night from the [facility] because of episode of dysphagia in which she was witnessed to have a choking spell after eating some chicken at lunch yesterday followed by some small amount of hematemesis and continued problem handling her saliva with repeated spitting up of phlegm and saliva. She has had no further hematemesis since that time. CT evaluation of the soft tissues of the neck failed to demonstrate any foreign body and CT of the chest and abdomen failed to demonstrate any pulmonary pathology but demonstrated fluid throughout the esophagus with no evidence of distal esophageal mechanical obstruction. GB appeared to be contracted and abnormal in appearance. There is a left adrenal nodule of 16 mm and 50 Hounsfeild units too dense for a lipid adenoma. The patient was admitted for iv fluids and kept NPO and surgical consult has been requested of Dr. Bess to evaluate the patient's esophagus and recommend treatment. I have spoken w/ Dr. Bess who indicated that Dr. Ramirez has called the nurses and spoken with them to indicate that the patient is not to have a feeding tube. The patient's sister (her DPOA) and indicated that she does not want the patient to have an NG placed nor have an EGD until the patient is seen by Dr. Ramirez. At this point the patient is a high risk for aspiration given that we are unable to decompress the esophagus of its contents. Dr. Barrera has made the patient NPO. I have worked w/ pharmacy to try to convert as many of the patient's meds to iv or im as possible. Exam Narrative Exam Narrative: Morbidly obese female who is alert pleasant and cooperative but oriented only to person. She is sitting up at the bedside in no distress. She denies any chest pain or dyspnea or abdominal pain or nausea. Lungs are clear to auscultation. Heart is regular Abdomen is obese soft and nontender Lower extremities with 2+ pitting edema Objective Objective Clinical Data: Abnormal lab results 01/16/20 01/16/20 01/17/20 Range/Units 19:42 19:42 07:00 MCH (27.0-33.0) pg MCHC 31.5 L (32.0-36.0) g/dL RDW 15.4 H (11.7-14.6) % Absolute Neutrophils 7.63 H (1.2-6.7) k/cumm Absolute Lymphocytes (1.2-3.4) k/cumm Absolute Monocytes 0.92 H (0.11-0.7) k/cumm Potassium 3.0 L (3.5-5.1) mmol/L Carbon Dioxide 34.1 H (21.0-32.0) mmol/L Glucose 124 H (74-106) mg/dL Calcium 7.8 L (8.5-10.1) mg/dL Albumin 2.9 L (3.4-5.0) g/dL 01/17/20 Range/Units 07:00 MCH 26.8 L (27.0-33.0) pg MCHC 30.8 L (32.0-36.0) g/dL RDW 15.5 H (11.7-14.6) % Absolute Neutrophils 7.48 H (1.2-6.7) k/cumm Absolute Lymphocytes 1.10 L (1.2-3.4) k/cumm Absolute Monocytes 0.92 H (0.11-0.7) k/cumm Potassium (3.5-5.1) mmol/L Carbon Dioxide (21.0-32.0) mmol/L Glucose (74-106) mg/dL Calcium (8.5-10.1) mg/dL Albumin (3.4-5.0) g/dL Vital Signs Temperature 37 C 01/17/20 08:21 Temperature Source Temporal Artery Scan 01/17/20 08:21 Pulse 98 H 01/17/20 08:21 Pulse Rhythm Regular 01/17/20 09:44 Respiratory Rate 19 01/17/20 08:21 Respiratory Effort Non-Labored 01/17/20 09:44 Respiratory Depth Normal 01/17/20 09:44 Respiratory Pattern Normal 01/17/20 09:44 Blood Pressure 117/78 01/17/20 08:21 Pulse Oximetry 98 01/17/20 08:21 Oxygen Delivery Method Nasal Cannula 01/17/20 08:21 Oxygen Flow Rate 2 01/17/20 08:21 Pain Level 0 01/17/20 08:21 Intake & Output 01/16/20 01/16/20 01/17/20 11:59 23:59 11:59 Intake Total 1000 / 1000 100 / 100 Output Total 1000 / 1000 Balance 1000 / 1000 -900 / -900 Weight 117.934 kg 123.1 kg Intake: IV 1000 / 1000 100 / 100 Output: Urine 1000 / 1000 Other: Urine Color Yellow Urine Appearance Clear Voiding Methods Toilet Laboratory Results WBC 9.77 k/cumm (4.4-10.8) 01/17/20 07:00 RBC 4.82 m/cumm (4.00-5.20) 01/17/20 07:00 Hgb 12.9 g/dL (12.0-15.5) 01/17/20 07:00 Hct 41.9 % (36.0-46.0) 01/17/20 07:00 MCV 86.9 fL (80-95) 01/17/20 07:00 MCH 26.8 pg (27.0-33.0) L 01/17/20 07:00 MCHC 30.8 g/dL (32.0-36.0) L 01/17/20 07:00 RDW 15.5 % (11.7-14.6) H 01/17/20 07:00 Plt Count 218 x1000/uL (130-400) 01/17/20 07:00 MPV 10.8 fL (8.0-11.0) 01/17/20 07:00 Immature Gran % 0.2 % 01/17/20 07:00 Neutrophils % 76.5 01/17/20 07:00 Lymphocytes % 11.3 01/17/20 07:00 Monocytes % 9.4 01/17/20 07:00 Eosinophils % 2.3 01/17/20 07:00 Basophils % 0.3 01/17/20 07:00 Absolute Neutrophils 7.48 k/cumm (1.2-6.7) H 01/17/20 07:00 Absolute Lymphocytes 1.10 k/cumm (1.2-3.4) L 01/17/20 07:00 Absolute Monocytes 0.92 k/cumm (0.11-0.7) H 01/17/20 07:00 Absolute Eosinophils 0.22 k/cumm (0.0-0.7) 01/17/20 07:00 Absolute Basophils 0.03 k/cumm (0.0-0.2) 01/17/20 07:00 Sodium 143 mmol/L (136-145) 01/17/20 07:00 Potassium 3.7 mmol/L (3.5-5.1) D 01/17/20 07:00 Chloride 105 mmol/L (98-107) 01/17/20 07:00 Carbon Dioxide 32.0 mmol/L (21.0-32.0) 01/17/20 07:00 Anion Gap 6.0 mmol/L (3-11) 01/17/20 07:00 BUN 7 mg/dL (7-18) 01/17/20 07:00 Creatinine 0.64 mg/dL (0.55-1.02) 01/17/20 07:00 Estimated GFR/1.73 m2 >= 60.00 (mL/min/1.73m2) 01/17/20 07:00 Glucose 106 mg/dL (74-106) 01/17/20 07:00 Lactate 0.9 mmol/L (0.6-1.4) 01/16/20 19:42 Calcium 7.8 mg/dL (8.5-10.1) L 01/17/20 07:00 Magnesium 1.8 mg/dL (1.8-2.4) 01/17/20 07:00 Total Bilirubin 0.3 mg/dL (0.2-1.0) 01/17/20 07:00 Conjugated Bilirubin 0.09 mg/dL (0.00-0.20) 01/17/20 07:00 AST 23 U/L (15-37) 01/17/20 07:00 ALT 19 U/L (14-59) 01/17/20 07:00 Alkaline Phosphatase 96 U/L (46-116) 01/17/20 07:00 NT-Pro-B Natriuret Pep 54 pg/mL (<300) 01/16/20 19:42 Total Protein 6.9 g/dL (6.4-8.2) 01/17/20 07:00 Albumin 2.9 g/dL (3.4-5.0) L 01/17/20 07:00 TSH 2.05 uIU/mL (0.36-3.74) 01/17/20 07:00 Urine Color Yellow (Yellow) 01/17/20 04:45 Urine Clarity Clear (Clear) 01/17/20 04:45 Urine pH 7.0 (5-8) 01/17/20 04:45 Ur Specific [place] 1.015 (1.005-1.025) 01/17/20 04:45 Urine Protein Negative mg/dL (Negative) 01/17/20 04:45 Urine Ketones Negative mg/dL (Negative) 01/17/20 04:45 Urine Blood Negative (Negative) 01/17/20 04:45 Urine Nitrite Negative (Negative) 01/17/20 04:45 Urine Bilirubin Negative (Negative) 01/17/20 04:45 Urine Urobilinogen 0.2 EU/dL (Up TO 0.2) 01/17/20 04:45 Ur Leukocyte Esterase Negative (Negative) 01/17/20 04:45 Urine Glucose Negative mg/dL (Negative) 01/17/20 04:45
[2020-01-17] MEDS: Enoxaparin 40 MG/0.4 ML SYR SC (11:32)
[2020-01-17] MEDS: FAMOTIDINE 20 MG/50 ML BAG 200 MG IVPB ×2 (11:32→22:52)
[2020-01-17 12:49] LABS: COVID-19 RT-PCR UVMMC Result Negative (Negative)
[2020-01-17] MEDS: POTASSIUM CHLORIDE/D5-0.9%NACL 1,000 ML 75 MEQ IV (13:11)
--- NOTE | 2020-01-17 13:26 | PHA.REVIEW ---
Pharmacy Admission Review - Admission Clinical Review (Last Updated 01/17/20 @ 02:06 by Clarisse Barrera MD) Hematuria (Acute) Dysphagia (Acute) DVT prophylaxis (Acute) Discharge planning issues (Acute) Sulfa (Sulfonamide Antibiotics) Allergy (Mild, Verified 01/16/20 18:54) Skin Rash Height 5 ft 6 in Weight 123.1 kg - Renal Dosing Renal Dosing: BUN 7 mg/dL (7-18) 01/17/20 07:00 Creatinine 0.64 mg/dL (0.55-1.02) 01/17/20 07:00 Medications needing adjustments: Reviewed (CRCL ~118ml/ml using adj bw) - Anticoagulation Anticoagulation: Hgb 12.9 g/dL (12.0-15.5) 01/17/20 07:00 Hct 41.9 % (36.0-46.0) 01/17/20 07:00 Plt Count 218 x1000/uL (130-400) 01/17/20 07:00 Creatinine 0.64 mg/dL (0.55-1.02) 01/17/20 07:00 DVT Prohphylaxis: Reviewed Medications: Enoxaparin (had 1x heme + emesis before admission(mda)) Therapeutic Anticoagulation: N/A - Relevant Labs Sodium 143 mmol/L (136-145) 01/17/20 07:00 Potassium 3.7 mmol/L (3.5-5.1) D 01/17/20 07:00 Chloride 105 mmol/L (98-107) 01/17/20 07:00 Magnesium 1.8 mg/dL (1.8-2.4) 01/17/20 07:00 Electrolytes, C-Reactive P, ESR: Reviewed - DM Control DM Control: Glucose 106 mg/dL (74-106) 01/17/20 07:00 Insulin Dosing: N/A - Heart Failure/NY Heart Failure/NY: NT-Pro-B Natriuret Pep 54 pg/mL (<300) 01/16/20 19:42 - BP Control BP Control: Blood Pressure 134/88 Blood Pressure 134/88 Blood Pressure 138/95 Blood Pressure 138/95 Blood Pressure 117/78 Blood Pressure 105/78 If elevated: N/A - Home Meds Home Med List reviewed: Intervened (asked by MD to facilitate changing meds to injectable forms: lisinopril to enalaprilat, olanzepine to IM, clonazepam to lorazepam IM. meds:methimazole, donepezil, escitalopram, imipramine unable to convert) - Comments Comments/Follow Ups: awaiting Dr Ramirez visit to establish goals of care. pt needs NG tube to prevent aspiration and for med administration otherwise switch to comfort care??
[2020-01-17] MEDS: LORazepam 2 MG/ML VIAL IM ×2 (13:59→20:35)
[2020-01-17] MEDS: OLANZapine 10 MG VIAL 15 MG IM (22:53)
[2020-01-18] VITALS (12 sets, daily range): BP systolic 91–159; BP diastolic 68–103; PULSE 73–96; RESP 16–24; TEMP 36.2–37; O2SAT 93–98
[2020-01-18] MEDS: POTASSIUM CHLORIDE/D5-0.9%NACL 1,000 ML 75 MEQ IV ×2 (02:51→16:09)
--- NOTE | 2020-01-18 05:52 | PCNE_ITS ---
Date of service: 01/18/20 Time of Service: 05:53 History of Present Illness Narrative: Christie is a 64-year-old woman who lives at the [facility]. 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 She was in her usual state of health on when her Sister Casie was there to visit. On Saturday she had several episodes of nausea and was then brought to the ER. She was admitted as she was unable to take p.o. Her Sister Casie had contacted me at 6 AM on Saturday concerned about a possible G-tube. Christie was adamant that she did not want to have another G-tube. I have heard from Dr. Salas, her PCP at the [facility] and also read Dr. Swenson's note Consults Consult date: 01/18/20 Requesting physician: Yvon Murray Assessment and Plan Assessment and plan (1) Hematemesis: Status: Resolved (2) Chronic diastolic CHF (congestive heart failure): Status: Chronic (3) Gallbladder anomaly: Status: Chronic (4) Cirrhosis: Status: Acute (5) Palliative care patient: Status: Acute Assessment and plan: Christie does agree to an NG tube. I did call up her Sister Netta who is her D POA. They both agreed to a temporary NG tube. I have passed this information on to both Dr. Ward and Dr. Swenson. Question about whether or not Christie really needs the Bell because of the discrepancy between the bladder scanning and what actually came out after a Bell was inserted. I would recommend that this be discharged as soon as possible If Christie is still here in the next couple of days I will stop back in and visit her. She does have a known problem with esophageal dysmotility. Swallowing eval may be helpful. This may have already been done. This document was created by [employer] software. Content was screened for misspellings, grammatical mistakes, etc. I apologize for any problems, but please contact me for further clarification if needed. Review of Systems Narrative: Christie states that she is feeling better. She does not have any chest pain, shortness of breath, she is n.p.o. but has not had any vomiting. She does not think she has any nausea. She did pass gas yesterday and had a small bowel movement. There was a question of whether or not she had urinary retention but there was discrepancy between the bladder scan and what actually came out after she had a Bell placed. She is anxious to go home. She reiterates that she does not want a G-tube. She is very firm on that. We talked about an NG tube for temporary use. She was okay with that. She understands that it will not be comfortable and will be placed in her nose. 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 at [facility] on 08/25/2019 Gastric ulcer (Acute) GERD (gastroesophageal reflux disease) (Chronic) Hypertension (Chronic) Hypothyroidism (Chronic) 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 Obesity, morbid, BMI 40.0-49.9 (Acute) Palliative care patient (Acute) Roxi Ramirez Schizophrenia (Chronic) Urinary retention (Acute) UTI (urinary tract infection) (Acute) Weakness on right side of face (Resolved) Surgical History (Updated 01/17/20 @ 01:29 by Clarisse Barrera MD) H/O esophagogastroduodenoscopy (Inactive) and endoscopic ultrasound 08/2019 at [facility] H/O oophorectomy (Acute) History of bilateral tubal ligation (Acute) History of hernia repair (Chronic) Social History Smoking/Tobacco Use Status: Never Alcohol Intake: never Drug use: Never Substance use type: does not use Household members: none Do you feel safe at home: Yes Do you feel safe in your relationship?: Yes Additional Social history: Resident @ [facility] [employer] Exam Narrative Exam Narrative: Recent CT Scan: PROCEDURE INFORMATION: Exam: CT Chest With Contrast Exam date and time: 01/16/2020 9:43 PM Age: 64 years old Clinical indication: Vomiting TECHNIQUE: Imaging protocol: Computed tomography of the chest with intravenous contrast. Contrast material: OMNIPAQUE 350; Contrast volume: 100 ml; Contrast route: INTRAVENOUS (IV); COMPARISON: CT ABDOMEN PELVIS W 02/13/2019 11:30 AM FINDINGS: Lungs: Unremarkable. No consolidation. No masses. Pleural space: Unremarkable. No pneumothorax. No pleural effusion. Heart: Unremarkable. No cardiomegaly. No pericardial effusion. Mediastinal space: Fluid throughout the esophagus which makes the patient vulnerable to aspiration. No evidence of distal esophageal mechanical obstruction. Clinically correlate. Aorta: Unremarkable. No aortic aneurysm. Lymph nodes: Unremarkable. No enlarged lymph nodes. Bones/joints: Unremarkable. No acute fracture. Soft tissues: Unremarkable. IMPRESSION: Fluid throughout the esophagus which makes the patient vulnerable to aspiration. No evidence of distal esophageal mechanical obstruction. Clinically correlate. PROCEDURE INFORMATION: Exam: CT Abdomen And Pelvis With Contrast Exam date and time: 01/16/2020 9:43 PM Age: 64 years old Clinical indication: Vomiting TECHNIQUE: Imaging protocol: Computed tomography of the abdomen and pelvis with intravenous contrast. COMPARISON: CT ABDOMEN PELVIS W 02/13/2019 11:30 AM FINDINGS: Liver: Normal. No mass. Gallbladder and bile ducts: Abnormal appearing contracted gallbladder. Consider ultrasound for better visualization. Underlying pathology is not excluded. Pancreas: Normal. No ductal dilation. Spleen: Normal. No splenomegaly. Adrenals: Left adrenal nonspecific nodule measuring 16 mm and 50 Hounsfield units. This is too dense to be a lipid rich adenoma. Lipid poor adenoma, primary or secondary malignancy is not excluded. Kidneys and ureters: 1 cm simple left renal cyst, Bosniak 1 classification. No further workup is recommended. Stomach and bowel: Distal colonic diverticulosis without diverticulitis. Appendix: Unable to identify the appendix. Intraperitoneal space: Unremarkable. No free air. No significant fluid collection. Vasculature: Mild atherosclerosis. Lymph nodes: Unremarkable. No enlarged lymph nodes. Bladder: Unremarkable as visualized. 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 Bones/joints: Unremarkable. No acute fracture. Soft tissues: Partially peripherally calcified 12 cm diameter lesion in the subcutaneous fat of the anterior abdominal pelvic region measures 17 Hounsfield units. Complex cyst or mass is not excluded. Correlate with ultrasound. IMPRESSION: 1. Abnormal appearing contracted gallbladder. Consider ultrasound for better visualization. Underlying pathology is not excluded. 2. Left adrenal nonspecific nodule measuring 16 mm and 50 Hounsfield units. This is too dense to be a lipid rich adenoma. Lipid poor adenoma, primary or secondary malignancy is not excluded. 3. Partially peripherally calcified 12 cm diameter lesion in the subcutaneous fat of the anterior abdominal pelvic region measures 17 Hounsfield units. Complex cyst or mass is not excluded. Correlate with ultrasound. 4. Distal colonic diverticulosis without diverticulitis. Exam: Christie looks great. She is lying in bed but sits up when I asked her to. She is smiling most of the time. Her heart is a bit fast in the upper 90s. I did not appreciate any murmur today. Her lungs poor aeration few scattered rales. Abdomen soft nontender with excellent bowel sounds in all 4 quadrants I did review her labs which were reassuring. Her albumin was down but 5 days earlier was in the normal range. Results Last Vital Signs Temp 97.3 F L 01/18/20 03:30 Pulse 73 01/18/20 03:30 Resp 16 01/18/20 03:30 BP 91/68 L 01/18/20 03:30 Pulse Ox 93 L 01/18/20 03:30 Labs Result diagrams: 01/18/20 06:30 01/18/20 06:30 Labs: Laboratory Results - last 24 hr 01/17/20 01/17/20 01/17/20 00:00 07:00 07:00 WBC 9.77 RBC 4.82 Hgb 12.9 Hct 41.9 MCV 86.9 MCH 26.8 L MCHC 30.8 L RDW 15.5 H Plt Count 218 MPV 10.8 Immature Gran % 0.2 Neutrophils % 76.5 Lymphocytes % 11.3 Monocytes % 9.4 Eosinophils % 2.3 Basophils % 0.3 Absolute Neutrophils 7.48 H Absolute Lymphocytes 1.10 L Absolute Monocytes 0.92 H Absolute Eosinophils 0.22 Absolute Basophils 0.03 Sodium 143 Potassium 3.7 D Chloride 105 Carbon Dioxide 32.0 Anion Gap 6.0 BUN 7 Creatinine 0.64 Estimated GFR/1.73 m2 >= 60.00 Glucose 106 Calcium 7.8 L Magnesium 1.8 Total Bilirubin 0.3 Conjugated Bilirubin 0.09 AST 23 ALT 19 Alkaline Phosphatase 96 Total Protein 6.9 Albumin 2.9 L TSH COVID-19 PCR Negative Nasopharyn COVID-19 PCR Not Applicable Ref Test Perform Site [place] [facility] 01/17/20 07:00 WBC RBC Hgb Hct MCV MCH MCHC RDW Plt Count MPV Immature Gran % Neutrophils % Lymphocytes % Monocytes % Eosinophils % Basophils % Absolute Neutrophils Absolute Lymphocytes Absolute Monocytes Absolute Eosinophils Absolute Basophils Sodium Potassium Chloride Carbon Dioxide Anion Gap BUN Creatinine Estimated GFR/1.73 m2 Glucose Calcium Magnesium Total Bilirubin Conjugated Bilirubin AST ALT Alkaline Phosphatase Total Protein Albumin TSH 2.05 COVID-19 PCR Nasopharyn COVID-19 PCR Ref Test Perform Site
[2020-01-18 06:51] LABS: Abs Immature Grans 0.02 k/cumm (0.0-0.09); Absolute Basophil Count 0.02 k/cumm (0.0-0.2); Absolute Eosinophil Count 0.31 k/cumm (0.0-0.7); Absolute Monocyte Count 0.64 k/cumm (0.11-0.7); Absolute Neutrophil Count 3.46 k/cumm (1.2-6.7); Basophils % 0.3; Eosinophils % 5.2; HCT 41.3 % (36.0-46.0); HGB 12.2 g/dL (12.0-15.5); Immature Grans % 0.3 %; Lymphocytes % 25.2; Mean Corp. HGB Concentration 29.5 g/dL (32.0-36.0); Mean Corpuscular Hemoglobin 26.6 pg (27.0-33.0); Mean Platelet Volume 9.9 fL (8.0-11.0); Monocytes % 10.8; Neutrophils % 58.2; Platelet Count 274 x1000/uL (130-400); RBC 4.59 m/cumm (4.00-5.20); White Blood Cell Count 5.95 k/cumm (4.4-10.8)
[2020-01-18 07:15] LABS: ALT 21 U/L (14-59); AST 21 U/L (15-37); Albumin 2.6 g/dL (3.4-5.0); Alkaline Phosphatase 78 U/L (46-116); Anion Gap 3.4 mmol/L (3-11); BUN 7 mg/dL (7-18); Bilirubin, Total 0.3 mg/dL (0.2-1.0); CO2 32.6 mmol/L (21.0-32.0); CREATININE 0.58 mg/dL (0.55-1.02); Calcium 7.9 mg/dL (8.5-10.1); Chloride 111 mmol/L (98-107); Glucose 97 mg/dL (74-106); Potassium 3.7 mmol/L (3.5-5.1); Sodium 147 mmol/L (136-145); Total Protein 6.1 g/dL (6.4-8.2)
--- NOTE | 2020-01-18 08:00 | DI.US_ITS ---
EXAM: US EXTREMITY VENOUS BI CLINICAL HISTORY: BLE edema. TECHNIQUE: Bilateral lower extremity venous ultrasound performed using grayscale, color-flow, and sp ectral Doppler analysis. COMPARISON: No exams were available for comparison FINDINGS: The bilateral common femoral, femoral and popliteal veins demonstrate normal compressibility, augment ation, and color Doppler. The posterior tibial veins are patent. There is no evidence of superficial thrombophlebitis or Werner's cyst. IMPRESSION: Right: Negative for DVT Left: Negative for DVT DATA REPOSITORY:
[2020-01-18] MEDS: Pantoprazole 40 MG VIAL IVP (08:10)
[2020-01-18] MEDS: Normal Saline Flush 10 ML SYR IVP ×5 (08:10→17:54)
[2020-01-18] MEDS: LORazepam 2 MG/ML VIAL IM ×3 (08:11→20:03)
[2020-01-18] MEDS: Nystatin POWDER 60 GM JAR TP ×3 (08:13→20:03)
[2020-01-18] MEDS: FAMOTIDINE 20 MG/50 ML BAG 200 MG IVPB ×2 (09:53→22:16)
--- NOTE | 2020-01-18 10:04 | PGE_ITS ---
Date of Service Date of service: 01/18/20 Time of Service: 10:04 Assessment and Plan Assessment and plan (1) Dysphagia: Status: Acute Assessment and plan: Per Dr. Ramirez, patient is ok w/ placement of NG. I confirmed this w/ the patient. I explained to her that this is only a temporary measure to alleviate the fluid accumulated in her distal esophagus and to allow passage of oral meds. Qualifiers: Dysphagia type: esophageal phase Qualified Code(s): R13.10 - Dysphagia, unspecified (2) Esophageal dysmotility: Status: Chronic Assessment and plan: As above. Will place NG but will need further evaluation of the cause of her motility disorder. I will talk w/ her sister to discuss how aggressive they want to pursue workup. She would need evaluated by GI at [facility] for esophageal manometry (3) Gallbladder anomaly: Status: Chronic Assessment and plan: The patient has IgG4 disease causing gallbladder fibrosis. She had a negative EUS in 08/2019 at [facility], and decision was made at this time to watch/wait rather than perform cholecystectomy. Patient was scheduled for an MRCP of her gallbladder at [facility] as of July 28, 2019. As near as I can tell this was never completed. Dr. Barrera order an ultrasound of her abdomen for tomorrow. However, if the family and Dr. Ramirez decide in conjunction with the patient that no further aggressive treatment will be pursued and I see no point in performing further diagnostic images. (4) Chronic diastolic CHF (congestive heart failure): Status: Chronic Assessment and plan: clinically she seems to be getting volume overloaded. She is now 7 kg increase of her wt over admisson. She has diffuse bilateral B lines c/w CHF/acute interstitial process. Her BNP is still within normal but on the rise (up to 135 from admission level of 54). I am decreasing her fluids to KVO and will give her couple doses of lasix and repeat her labs in the a.m. Also I have ordered an CXR to rule out aspiration given her significant fluid retention in her esophagus. (5) DVT prophylaxis: Status: Acute Assessment and plan: venous duplex of her legs was negative for DVT. Will give her DVT prophylaxis w/ CHEYANNE and SCD's (6) Discharge planning issues: Status: Acute Assessment and plan: DNR/DNI Formerly a hospice patient, but no longer on hospice. Consult palliative care, PT. Subjective Subjective Interval history since last seen: Patient denies any abdominal pain or nausea or vomiting. She is feeling mildly dyspneic w/ any activity and is having wheezing. No hypoxemia. I did a POCUS exam of her lungs and she has diffuse bilateral B lines. I think that she is getting volume overloaded d/t not getting her lasix. Exam Narrative Exam Narrative: Alert and oriented x 3 Neck is obese; difficult to discern JVD Lungs w/ diffuse bilateral wheezing; no rhonchi Cor RRR, soft systolic murmur over apex Abdomen: non-distended, normal bowel sounds, non-tender to palpation Extremities: 2+ pitting bilateral edema Objective Objective Clinical Data: Abnormal lab results 01/18/20 01/18/20 Range/Units 06:30 06:30 MCH 26.6 L (27.0-33.0) pg MCHC 29.5 L (32.0-36.0) g/dL RDW 16.0 H (11.7-14.6) % Sodium 147 H (136-145) mmol/L Chloride 111 H (98-107) mmol/L Carbon Dioxide 32.6 H (21.0-32.0) mmol/L Calcium 7.9 L (8.5-10.1) mg/dL Total Protein 6.1 L (6.4-8.2) g/dL Albumin 2.6 L (3.4-5.0) g/dL Vital Signs Temperature 36.2 C L 01/18/20 08:07 Temperature Source Tympanic 01/18/20 08:07 Pulse 86 01/18/20 08:07 Pulse Rhythm Regular 01/18/20 07:23 Respiratory Rate 24 01/18/20 08:39 Respiratory Effort 01/18/20 08:39 Respiratory Depth Normal 01/18/20 08:39 Respiratory Pattern Normal 01/18/20 08:39 Blood Pressure 134/83 01/18/20 08:07 Pulse Oximetry 97 01/18/20 08:07 Oxygen Delivery Method Nasal Cannula 01/18/20 08:07 Oxygen Flow Rate 2 01/18/20 08:07 Pain Level 2 01/18/20 08:07 Comment 01/17/20 23:45 Intake & Output 01/17/20 01/17/20 01/18/20 11:59 23:59 11:59 Intake Total 130 / 1221.25 1091.25 / 1221.25 1000 / 1000 Output Total 1600 / 2148 548 / 2148 75 / 75 Balance -1470 / -926.75 543.25 / -926.75 925 / 925 Weight 123.1 kg 124.9 kg Intake: IV 130 / 1221.25 1091.25 / 1221.25 1000 / 1000 Output: Urine 1600 / 1800 200 / 1800 75 / 75 Post Void Residual 348 / 348 Other: Urine Color Yellow Light Sofia Urine Appearance Clear Clear Clear Urine Odor Normal Comment just 2 gtts urine in BSC mixed wth stool, approximate amount Stool Occult Blood Negative Negative Stool Size Small Moderate Stool Characteristics Formed Liquid Voiding Methods Bedside Commode Laboratory Results WBC 5.95 k/cumm (4.4-10.8) D 01/18/20 06:30 RBC 4.59 m/cumm (4.00-5.20) 01/18/20 06:30 Hgb 12.2 g/dL (12.0-15.5) 01/18/20 06:30 Hct 41.3 % (36.0-46.0) 01/18/20 06:30 MCV 90.0 fL (80-95) D 01/18/20 06:30 MCH 26.6 pg (27.0-33.0) L 01/18/20 06:30 MCHC 29.5 g/dL (32.0-36.0) L 01/18/20 06:30 RDW 16.0 % (11.7-14.6) H 01/18/20 06:30 Plt Count 274 x1000/uL (130-400) 01/18/20 06:30 MPV 9.9 fL (8.0-11.0) 01/18/20 06:30 Immature Gran % 0.3 % 01/18/20 06:30 Neutrophils % 58.2 01/18/20 06:30 Lymphocytes % 25.2 01/18/20 06:30 Monocytes % 10.8 01/18/20 06:30 Eosinophils % 5.2 01/18/20 06:30 Basophils % 0.3 01/18/20 06:30 Absolute Neutrophils 3.46 k/cumm (1.2-6.7) 01/18/20 06:30 Absolute Lymphocytes 1.50 k/cumm (1.2-3.4) 01/18/20 06:30 Absolute Monocytes 0.64 k/cumm (0.11-0.7) 01/18/20 06:30 Absolute Eosinophils 0.31 k/cumm (0.0-0.7) 01/18/20 06:30 Absolute Basophils 0.02 k/cumm (0.0-0.2) 01/18/20 06:30 Sodium 147 mmol/L (136-145) H 01/18/20 06:30 Potassium 3.7 mmol/L (3.5-5.1) 01/18/20 06:30 Chloride 111 mmol/L (98-107) H 01/18/20 06:30 Carbon Dioxide 32.6 mmol/L (21.0-32.0) H 01/18/20 06:30 Anion Gap 3.4 mmol/L (3-11) 01/18/20 06:30 BUN 7 mg/dL (7-18) 01/18/20 06:30 Creatinine 0.58 mg/dL (0.55-1.02) 01/18/20 06:30 Estimated GFR/1.73 m2 >= 60.00 (mL/min/1.73m2) 01/18/20 06:30 Glucose 97 mg/dL (74-106) 01/18/20 06:30 Lactate 0.9 mmol/L (0.6-1.4) 01/16/20 19:42 Calcium 7.9 mg/dL (8.5-10.1) L 01/18/20 06:30 Magnesium 1.8 mg/dL (1.8-2.4) 01/17/20 07:00 Total Bilirubin 0.3 mg/dL (0.2-1.0) 01/18/20 06:30 Conjugated Bilirubin 0.09 mg/dL (0.00-0.20) 01/17/20 07:00 AST 21 U/L (15-37) 01/18/20 06:30 ALT 21 U/L (14-59) 01/18/20 06:30 Alkaline Phosphatase 78 U/L (46-116) 01/18/20 06:30 NT-Pro-B Natriuret Pep 54 pg/mL (<300) 01/16/20 19:42 Total Protein 6.1 g/dL (6.4-8.2) L 01/18/20 06:30 Albumin 2.6 g/dL (3.4-5.0) L 01/18/20 06:30 TSH 2.05 uIU/mL (0.36-3.74) 01/17/20 07:00 Urine Color Yellow (Yellow) 01/17/20 04:45 Urine Clarity Clear (Clear) 01/17/20 04:45 Urine pH 7.0 (5-8) 01/17/20 04:45 Ur Specific [place] 1.015 (1.005-1.025) 01/17/20 04:45 Urine Protein Negative mg/dL (Negative) 01/17/20 04:45 Urine Ketones Negative mg/dL (Negative) 01/17/20 04:45 Urine Blood Negative (Negative) 01/17/20 04:45 Urine Nitrite Negative (Negative) 01/17/20 04:45 Urine Bilirubin Negative (Negative) 01/17/20 04:45 Urine Urobilinogen 0.2 EU/dL (Up TO 0.2) 01/17/20 04:45 Ur Leukocyte Esterase Negative (Negative) 01/17/20 04:45 Urine Glucose Negative mg/dL (Negative) 01/17/20 04:45 COVID-19 PCR Negative (Negative) 01/17/20 00:00 Nasopharyn COVID-19 PCR Not Applicable 01/17/20 00:00 Ref Test Perform Site [facility] 01/17/20 00:00
--- NOTE | 2020-01-18 10:51 | RESPIRATORY ---
Patient was asked is she normally uses home oxygen and it was found she uses it on and off at the [facility]. Patient stated she has not used it (oxygen) in quite awhile.
[2020-01-18 11:03] LABS: NT-proBNP 135 pg/mL (<300)
--- NOTE | 2020-01-18 12:01 | CMPROGNOTE_ITS ---
- If Service Date Differs Date of service: 01/18/20 Time of Service: 12:01 Care Management Progress Note S/O: Christie was sitting up in bed when CM met with her. She was pleasant and agreeable to answer questions. Christie stated that she ate cut up chicken on Saturday and it got stuck in her throat. When asked if she had ever had this happen before she stated that she went through a similar episode about a year ago. Christie shared that she lives at the [facility] and likes it there very much. When asked, she stated that she has 2 sisters and a brother that are her supports. Christie will have a nasogastric tube placed today to enable her to have nourishment and medications. A: Christie is a 64 year old woman admitted on 01/16/20 with dysphagia P: Anticipate Christie will return to the [facility] when ready per MD. A palliative consult was held with Dr. Ramirez this morning and the decision was made to p lace a nasogastric tube. CM will continue to follow and support Christie, her family and discharge planning concerns.
[2020-01-18] MEDS: Furosemide 40 MG/4 ML VIAL IVP ×2 (12:04→16:10)
--- NOTE | 2020-01-18 13:15 | DI.RAD_ITS ---
EXAM: XR PORTABLE CHEST AP CLINICAL HISTORY: dyspnea TECHNIQUE: 2D digital imaging was performed. COMPARISON: No exams were available for comparison FINDINGS: A nasogastric tube is again noted with the tip projecting at the fundus of the stomach. The heart is not enlarged. The lungs are poorly inflated but grossly clear. IMPRESSION: No acute abnormality.
--- NOTE | 2020-01-18 13:53 | DI.RAD_ITS ---
EXAM: 2D digital imaging was performed. CLINICAL HISTORY: placement of NG. COMPARISON: CT CT CHEST/ABD/PEL W from 01/16/2020 TECHNIQUE: Supine views of the abdomen performed. FINDINGS: Exam is limited due to patient body habitus. The is a gastric tube is been inserted. The tip of the tube is near the GE junction and should be advanced further into the stomach. The visualized portio ns of the lungs appear clear. The heart size is normal. IMPRESSION: 1. Nonobstructive bowel gas pattern. 2. NG tube tip near the GE junction. DATA REPOSITORY: RADIATION DOSE DELIVERED:
--- NOTE | 2020-01-18 14:18 | PT.INTREAT ---
Date of service: 01/18/20 Time of Service: 11:12 PT Notes Visit Reasons: DYSPHAGIA FOR LIQUIDS, ESOPHAGEAL DYSMOTILITY Inpatient Physical Therapy Treatment Note [facility] Date: 01/18/2020 PRECAUTIONS: Fall. Activity as tolerated. NPO per MD. SUBJECTIVE: Christie states that she would like to walk. She reports that she has lived at the [facility] for about 2 years now help her with self-care and with ambulation using her front wheeled walker. OBJECTIVE: NGT in place. IV in right UE. BIlateral TEDS on. Mild swelling noted on B legs and feet. PAIN: None reported . BED MOBILITY/TRANSFERS Supine-sit: SBA with HOB at 30 degrees Sit-stand: Contact-guard assist with minimal verbal cueing for hand placement Stand-sit: Contact-guard assist with minimal verbal cueing for hand placement Bed-Chair: Contact-guard assist with minimal verbal cueing for hand placement Chair-bed: Contact-guard assist with minimal verbal cueing for hand placement GAIT Assistive Device: Front wheeled walker Weight bearing: Full weight bearing Assist: Contact-guard assist Distance: 30 feet in the morning. 50 feet in the afternoon Deviation: Mildly wide-based gait. Decreased aurora. Decreased DF bilaterally. THEREX: Tolerated seated level exercises consisting of ankle pumps x10, long arc quads x10, and hip flexion x10, with minimal SOB. ASSESSMENT: Patient remains NPO per MD. She demonstrated mild shortness of breath activity during both sessions. She needs physical assistance, wheelchair follow, and use of a front wheel walker to maximize safety with mobility ADL performance. PLAN: She will continue to benefit from skilled services in order to achieve initially established goals. TREATMENT CODE/TIME: Session 1--59120 x 8 minutes beginning at 11:12 AM. Session 2--33112 x 16 minutes, 9711 0 x 15 minutes, beginning at 14:18 PM.
--- NOTE | 2020-01-18 14:27 | DI.US_ITS ---
APPROVED REPORT EXAM: Comprehensive 2D, Doppler, and color-flow Echocardiogram Patient Location: In-Patient Room/Bed: [address] Operator Helper: Melissa Ball RDCS (AE) Indications: Dyspnea Other Information Study Quality: Poor. Technically limited study due to inability to position patient and body habitus. . Conclusion Technically very difficult study Left ventricle appears normal in size, overall systolic function. Not able to accurately assess florencia onal wall motion Right ventricle appears normal in size, overall systolic function is normal Both atria are grossly normal in size There are no apparent structural valvular abnormalities Trivial mitral regurgitation Wall motion Left Ventricle The left ventricle is normal size. The overall left ventricular systolic function appears normal. The re is normal left ventricular wall thickness. Regional wall motion is not well visualized but grossly normal. Right Ventricle The right ventricle is normal size. appears grossly normal Atria Left atrium is not well visualized. The left atrium size is normal. The right atrium size is normal. Aortic Valve Aortic valve is probably trileaflet. There is no aortic valvular stenosis. No aortic regurgitation is present. Mitral Valve The mitral valve is normal in structure. No evidence of mitral valve stenosis. Trace mitral regurgita tion. Tricuspid Valve Tricuspid valve is not well visualized. There is no tricuspid valve stenosis. There is no tricuspid v alve regurgitation noted. Pulmonic Valve Pulmonic valve is not well visualized. There is no pulmonic valvular stenosis. There is no pulmonic v alvular regurgitation. Great Vessels The aortic root is normal in size. Ascending aorta is not well visualized. Aortic arch is not well vi sualized. IVC is normal in size and collapses >50% with inspiration. Pericardium There is no pericardial effusion. 2D Dimensions IVSD d PLAX 0.93 cm F: 0.6-1.0 LVPW d PLAX 0.98 cm F: 0.6 - 1.0 LVID d PLAX 4.61 cm F: 3.8 - 5.2 LVDs 3.40 cm F: 2.2 - 3.5 Ao Root d 3.18 cm F: 2.7 - 3.3 LV EF Teichholz 50.1 % FS 25.35 % LV Diastology MV E' medial 0.089 (>0.07 m/s) E/A Ratio 1.2 LV E/e MED 8.85 (<14) MV E Vmax 0.79 (0.4-1.3 m/s) MV E' lateral 0.088 (>0.1 m/s) MV A Vmax 0.65 (0.4-1.3 m/s) LV E/e LAT 8.95 (<14) MV E/A Ratio 1.14 MV E/E' medial 8.88 MV E/E' lateral 8.98 Aortic Valve LVOT Area 3.97 cm2 AoV Area Vmax 3.11 cm2 LVOT Vmax 0.96 m/s AoV Area/ BSA (Vmax) 1.36 cm2/m2 LVOT Mean Bora. 0.71 m/s GALILEO Mean Bora. 2.92 cm2 LVOT Peak Grad 3.7 mmHg GALILEO Mean [place]. Index 1.28 cm2/m2 LVOT Mean Grad 2.2 mmHg LVOT VTI 0.173 m LVOT Diam s 2.20 cm AoV Vmax 1.22 m/s Velocity Ratio 0.78 AoV Mean Bora. 0.96 m/s AoV Peak Grad 6.0 mmHg LVOT SV 68.87 mL AoV Mean Grad 4.0 mmHg AoV VTI 0.244 m AoV Area VTI 2.82 cm2 AoV Area/ BSA (VTI) 1.23 cm/m2 Mitral Valve MV DT 213 (160-240 msec) MV PHT 62 msec MV Area PHT 3.55 cm2 Pulmonary Valve PV Vmax 1.03 (0.5-1.5 m/s) RVOT Peak Gr. 3.16 mmHg PV Peak Grad 4.2 mmHg RVOT Mean Gr. 1.55 mmHg PV Mean Grad 2.2 mmHg RVOT VTI 0.146 m PV VTI 0.178 m RVOT Vmax 0.89 m/s
--- NOTE | 2020-01-18 16:48 | DI.VRAD_ITS ---
PROCEDURE INFORMATION: Exam: XR Chest, 1 View Exam date and time: 01/18/2020 4:31 PM Age: 64 years old Clinical indication: Other: Dyspnea TECHNIQUE: Imaging protocol: XR of the chest Views: 1 view. COMPARISON: CR XR CHEST 2V PA LATERAL 01/16/2020 8:15 PM FINDINGS: Tubes, catheters and devices: NGT present with the tip at the stomach. Lungs: Unremarkable. No consolidation. Pleural space: Unremarkable. No pleural effusion. No pneumothorax. Heart/Mediastinum: Unremarkable. No cardiomegaly. Bones/joints: Unremarkable. IMPRESSION: NG tube at the stomach. Dictated and Authenticated by: Morris Bejarano MD. Ordering:[facility] Trevor Sanz MD
--- NOTE | 2020-01-18 20:25 | PGE_ITS ---
Date of Service Date of service: 01/18/20 Time of Service: 20:25 Assessment and Plan Assessment and plan (1) Esophageal dysmotility: Status: Chronic Assessment and plan: i don't think she has any esophageal foreign body. She has a history of esophageal dysmotility. She should have a barium swallow and speech eval to make sure she is not aspirating. Pt has recently been change from dysphagia diet to regular diet. She be re- evaluated. Pt does not want a feeding tube placed again. Continue to treat for reflux- on PPI therapy. (2) GERD (gastroesophageal reflux disease): Status: Chronic (3) Palliative care patient: Status: Acute Subjective Subjective Interval history since last seen: pt seen adn examined at [facility] request of Dr. Murray regarding possible esophageal foreign body. pt has an NGT in place. There has been minimal output. Pt has been able to handle her own secretions. Pt drank about 50cc of water she had no choking. She was able to swallow the water down. Results of prior Barium swallow and speech consult noted below. BARIUM SWALLOW AND UPPER GI: The examination was performed with the patient in the semi upright position. There was no aspiration or penetration during the examination. There is decreased motility of the esophagus with residual contrast remaining in the mid esophagus. No stricture is seen. No hiatal hernia was noted. No intrinsic or extrinsic masses are seen in the esophagus. There is a question of delay in the ni phase of swallowing. This may be further evaluated with a modified barium swallow with speech pathology. IMPRESSION: 1. No evidence of an esophageal stricture. 2. No evidence of aspiration or penetration during the examination. 3. Decreased esophageal peristalsis. Dictated By: Souleymane Kee M.D. 07/11/18 *STUDY CONCLUSIONS* Summary: 1. Procedure narrative: Image quality was fair. 2. Left ventricle: The cavity size was normal. Wall thickness was normal. Systolic function was normal. The estimated ejection fraction was 60-65%. Although no diagnostic regional wall motion abnormality was identified, this possibility cannot be completely excluded on the basis of this study. 3. Right ventricle: The cavity size was normal. Wall thickness was normal. Systolic function was normal. *PATIENT PRESENTATION* *CARDIAC ANATOMY* Left ventricle: The cavity size was normal. Wall thickness was normal. Systolic function was normal. The estimated ejection fraction was 60-65%. Although no diagnostic regional wall motion abnormality was identified, this possibility cannot be completely excluded on the basis of this study. The study is not technically sufficient to allow evaluation of LV diastolic function. Aortic valve: Poorly visualized. Mobility was not restricted. Doppler: Transvalvular velocity was within the normal range. There was no stenosis. There was no significant regurgitation. VTI ratio of LVOT to aortic valve: 1.15. Valve area (VTI): 3.9cm^2. Indexed valve area (VTI): 1.8cm^2/m^2. Peak velocity ratio of LVOT to aortic valve: 1. Valve area (Vmax): 3.4cm^2. Indexed valve area (Vmax): 1.6cm^2/m^2. Mean velocity ratio of LVOT to aortic valve: 0.77. Valve area (Vmean): 2.6cm^2. Indexed valve area (Vmean): 1.2cm^2/m^2. Mean gradient (S): 3.1mm Hg. Peak gradient (S): 4.6mm Hg. Aorta: Aortic root: The aortic root was normal in size. Ascending aorta: The ascending aorta was normal in size. Mitral valve: Structurally normal valve. Mobility was not restricted. Doppler: Transvalvular velocity was within the normal range. There was no evidence for stenosis. There was no significant regurgitation. Valve area by pressure half-time: 3.5cm^2. Indexed valve area by pressure half-time: 1.6cm^2/m^2. Left atrium: The atrium was normal in size. Right ventricle: The cavity size was normal. Wall thickness was normal. Systolic function was normal. Pulmonic valve: Doppler: Transvalvular velocity was within the normal range. There was no evidence for stenosis. There was no significant regurgitation. Tricuspid valve: Structurally normal valve. Doppler: Transvalvular velocity was within the normal range. There was no evidence for stenosis. There was no significant regurgitation. Pulmonary artery: Systolic pressure could not be accurately estimated. Right atrium: The atrium was normal in size. Pericardium: There was no pericardial effusion. Systemic veins: Inferior vena cava: Well visualized. The vessel was patent and normal in size. The respirophasic diameter changes were in the normal range (greater than or equal to 50%). Baseline ECG: Normal sinus rhythm. Exam HENMT Other: poor dentition pt is able to manage her own secretions. no prior head/neck surgery GI Other: obese non tender Objective Objective Clinical Data: Abnormal lab results 01/18/20 01/18/20 Range/Units 06:30 06:30 MCH 26.6 L (27.0-33.0) pg MCHC 29.5 L (32.0-36.0) g/dL RDW 16.0 H (11.7-14.6) % Sodium 147 H (136-145) mmol/L Chloride 111 H (98-107) mmol/L Carbon Dioxide 32.6 H (21.0-32.0) mmol/L Calcium 7.9 L (8.5-10.1) mg/dL Total Protein 6.1 L (6.4-8.2) g/dL Albumin 2.6 L (3.4-5.0) g/dL Vital Signs Temperature 36.6 C 01/18/20 19:00 Temperature Source Tympanic 01/18/20 19:00 Pulse 83 01/18/20 19:00 Pulse Rhythm Regular 01/18/20 15:27 Respiratory Rate 19 01/18/20 19:00 Respiratory Effort 01/18/20 15:27 Respiratory Depth Normal 01/18/20 15:27 Respiratory Pattern Normal 01/18/20 08:39 Blood Pressure 136/85 01/18/20 19:00 Pulse Oximetry 96 01/18/20 19:00 Oxygen Delivery Method Room Air 01/18/20 19:00 Oxygen Flow Rate 0 01/18/20 19:00 Pain Level 0 01/18/20 19:00 Comment 01/17/20 23:45 Intake & Output 01/17/20 01/18/20 01/18/20 23:59 11:59 23:59 Intake Total 1091.25 / 1221.25 999 / 1996.5 997.5 / 1996. Output Total 548 / 2148 175 / 3875 3700 / 3875 Balance 543.25 / -926.75 825 / -1877.5 -2702.5 / -1877.5 Weight 124.9 kg Intake: IV 1091.25 / 1221.25 1000 / 1996.5 997. Output: Urine 200 / 1800 175 / 3875 3700 / 3875 Post Void Residual 348 / 348 Other: Urine Color Yellow Pale Light Sofia Yellow Urine Appearance Clear Clear Clear Sediment Urine Odor None Normal Comment mixed wth stool, approximate amount Pt voided some in brief and in bedside commode. New brief applied and linens changed Stool Occult Blood Negative Negative Stool Size Small Moderate Stool Characteristics Formed Liquid Voiding Methods Indwelling Catheter Bedside Commode Laboratory Results WBC 5.95 k/cumm (4.4-10.8) D 01/18/20 06:30 RBC 4.59 m/cumm (4.00-5.20) 01/18/20 06:30 Hgb 12.2 g/dL (12.0-15.5) 01/18/20 06:30 Hct 41.3 % (36.0-46.0) 01/18/20 06:30 MCV 90.0 fL (80-95) D 01/18/20 06:30 MCH 26.6 pg (27.0-33.0) L 01/18/20 06:30 MCHC 29.5 g/dL (32.0-36.0) L 01/18/20 06:30 RDW 16.0 % (11.7-14.6) H 01/18/20 06:30 Plt Count 274 x1000/uL (130-400) 01/18/20 06:30 MPV 9.9 fL (8.0-11.0) 01/18/20 06:30 Immature Gran % 0.3 % 01/18/20 06:30 Neutrophils % 58.2 01/18/20 06:30 Lymphocytes % 25.2 01/18/20 06:30 Monocytes % 10.8 01/18/20 06:30 Eosinophils % 5.2 01/18/20 06:30 Basophils % 0.3 01/18/20 06:30 Absolute Neutrophils 3.46 k/cumm (1.2-6.7) 01/18/20 06:30 Absolute Lymphocytes 1.50 k/cumm (1.2-3.4) 01/18/20 06:30 Absolute Monocytes 0.64 k/cumm (0.11-0.7) 01/18/20 06:30 Absolute Eosinophils 0.31 k/cumm (0.0-0.7) 01/18/20 06:30 Absolute Basophils 0.02 k/cumm (0.0-0.2) 01/18/20 06:30 Sodium 147 mmol/L (136-145) H 01/18/20 06:30 Potassium 3.7 mmol/L (3.5-5.1) 01/18/20 06:30 Chloride 111 mmol/L (98-107) H 01/18/20 06:30 Carbon Dioxide 32.6 mmol/L (21.0-32.0) H 01/18/20 06:30 Anion Gap 3.4 mmol/L (3-11) 01/18/20 06:30 BUN 7 mg/dL (7-18) 01/18/20 06:30 Creatinine 0.58 mg/dL (0.55-1.02) 01/18/20 06:30 Estimated GFR/1.73 m2 >= 60.00 (mL/min/1.73m2) 01/18/20 06:30 Glucose 97 mg/dL (74-106) 01/18/20 06:30 Lactate 0.9 mmol/L (0.6-1.4) 01/16/20 19:42 Calcium 7.9 mg/dL (8.5-10.1) L 01/18/20 06:30 Magnesium 1.8 mg/dL (1.8-2.4) 01/17/20 07:00 Total Bilirubin 0.3 mg/dL (0.2-1.0) 01/18/20 06:30 Conjugated Bilirubin 0.09 mg/dL (0.00-0.20) 01/17/20 07:00 AST 21 U/L (15-37) 01/18/20 06:30 ALT 21 U/L (14-59) 01/18/20 06:30 Alkaline Phosphatase 78 U/L (46-116) 01/18/20 06:30 NT-Pro-B Natriuret Pep 135 pg/mL (<300) 01/18/20 06:30 Total Protein 6.1 g/dL (6.4-8.2) L 01/18/20 06:30 Albumin 2.6 g/dL (3.4-5.0) L 01/18/20 06:30 TSH 2.05 uIU/mL (0.36-3.74) 01/17/20 07:00 Urine Color Yellow (Yellow) 01/17/20 04:45 Urine Clarity Clear (Clear) 01/17/20 04:45 Urine pH 7.0 (5-8) 01/17/20 04:45 Ur Specific [place] 1.015 (1.005-1.025) 01/17/20 04:45 Urine Protein Negative mg/dL (Negative) 01/17/20 04:45 Urine Ketones Negative mg/dL (Negative) 01/17/20 04:45 Urine Blood Negative (Negative) 01/17/20 04:45 Urine Nitrite Negative (Negative) 01/17/20 04:45 Urine Bilirubin Negative (Negative) 01/17/20 04:45 Urine Urobilinogen 0.2 EU/dL (Up TO 0.2) 01/17/20 04:45 Ur Leukocyte Esterase Negative (Negative) 01/17/20 04:45 Urine Glucose Negative mg/dL (Negative) 01/17/20 04:45 COVID-19 PCR Negative (Negative) 01/17/20 00:00 Nasopharyn COVID-19 PCR Not Applicable 01/17/20 00:00 Ref Test Perform Site [facility] lab 01/17/20 00:00
[2020-01-18] MEDS: OLANZapine 10 MG VIAL 15 MG IM (23:01)
[2020-01-18] MEDS: Water,Injection,Sterile 10 ML VIAL IJ (23:03)
[2020-01-19] VITALS (13 sets, daily range): BP systolic 109–141; BP diastolic 8–99; PULSE 82–109; RESP 4–20; TEMP 36.1–37.4; O2SAT 92–97
[2020-01-19] MEDS: POTASSIUM CHLORIDE/D5-0.9%NACL 1,000 ML 75 MEQ IV (05:23)
[2020-01-19 06:45] LABS: Anion Gap 6.9 mmol/L (3-11); BUN 6 mg/dL (7-18); CO2 32.1 mmol/L (21.0-32.0); CREATININE 0.66 mg/dL (0.55-1.02); Calcium 8.1 mg/dL (8.5-10.1); Chloride 109 mmol/L (98-107); Glucose 115 mg/dL (74-106); Magnesium 1.7 mg/dL (1.8-2.4); Potassium 3.1 mmol/L (3.5-5.1); Sodium 148 mmol/L (136-145)
[2020-01-19] MEDS: Normal Saline Flush 10 ML SYR IVP ×3 (07:49→18:12)
[2020-01-19] MEDS: Pantoprazole 40 MG VIAL IVP (07:49)
[2020-01-19] MEDS: LORazepam 2 MG/ML VIAL IM ×3 (07:50→20:18)
[2020-01-19] MEDS: Nystatin POWDER 60 GM JAR TP ×3 (07:50→20:19)
--- NOTE | 2020-01-19 08:27 | PDOC.CMPRO ---
- If Service Date Differs Date of service: 01/19/20 Time of Service: 08:27 Care Management Progress Note S/O: Christie was sitting up in bed when CM met with her. She was pleasant and smiling and engaged readily with CM. Christie stated that she was feeling better today and that she had had a test done this morning. She also stated that she was really glad to get the tube out (NG tube) because it hurt her throat. Christie indicated that she hopes to be able to get something to drink soon, as she is thirsty. CM informed her that she needed to have one more test and that if it went well, that might be possible. A: Christie is a 64 year old woman admitted on 01/16/20 with dysphagia P: Christie will return to the [facility] when medically ready per MD. She will follow their plan of care as prescribed. CM will continue to support Christie and assess for discharge planning needs.
--- NOTE | 2020-01-19 08:30 | DI.RAD_ITS ---
EXAM: RF BARIUM SWALLOW CLINICAL HISTORY: dysphagia TECHNIQUE: 2D and realtime digital imaging was performed. CONTRAST MATERIAL: Thick and thin barium and barium tablet were administered. COMPARISON: No exams were available for comparison FINDINGS: The soap drier operator view of the chest shows normal heart size. The lungs appear clear. The soap drier operator view of the neck shows degenerative changes of the cervical spine. Exam is limited due to patient's inability to stand. Thin barium was administered. The patient declined administration of the barium tablet sayi ng she is unable to swallow pills. No aspiration was observed during the exam. There is a small sliding hiatal hernia and a distal esop hageal Schatzki ring. The more proximal esophagus is unremarkable. No gastroesophageal reflux was o bserved during the exam. IMPRESSION: Limited exam. Schatzki ring.
[2020-01-19] MEDS: MAGNESIUM SULFATE 2 GM/50 ML BAG IVPB (10:13)
[2020-01-19] MEDS: FAMOTIDINE 20 MG/50 ML BAG 200 MG IVPB ×2 (10:34→22:17)
--- NOTE | 2020-01-19 10:35 | PGE_ITS ---
Date of Service Date of service: 01/19/20 Time of Service: 10:35 Assessment and Plan Assessment and plan (1) Dysphagia: Status: Acute Assessment and plan: Awaiting results of barium swallow. Diet will be advanced based upon the results of her barium swallow and speech therapy will be consulted to help evaluate and treat her dysphagia. Qualifiers: Dysphagia type: esophageal phase Qualified Code(s): R13.10 - Dysphagia, unspecified (2) Esophageal dysmotility: Status: Chronic Assessment and plan: As above. (3) Gallbladder anomaly: Status: Chronic Assessment and plan: The patient has IgG4 disease causing gallbladder fibrosis. Negative endoscopic ultrasound in August 2019 and a more recent MRCP was also negative. (4) Chronic diastolic CHF (congestive heart failure): Status: Chronic Assessment and plan: Chest x-ray yesterday was unremarkable with no consolidation and no evidence of CHF on her chest x-ray in spite of the fact that my [id number] ultrasound yesterday demonstrated diffuse B-lines. Patient received IV Lasix yesterday I have stopped that and will recheck her proBNP. Her potassium was low this morning at 3.1 we will give her IV supplementation. Magnesium was also low at 1.7 and again this will be corrected. At this time Lasix has been withheld. Her echocardiogram yesterday showed normal left ventricular size and normal overall normal systolic function. Right ventricular size and function appear to be grossly normal. No apparent structural valvular abnormalities. Left ventricular ejection fraction 50% (5) DVT prophylaxis: Status: Acute Assessment and plan: venous duplex of her legs was negative for DVT. Will give her DVT prophylaxis w/ CHEYANNE and SCD's (6) Discharge planning issues: Status: Acute Assessment and plan: DNR/DNI Formerly a hospice patient, but no longer on hospice As the patient has no end- stage life disease. She originally was put on hospice when it looks like she may have a gallbladder cancer but this is been ruled out by biopsy as well as imaging. Consult palliative care, PT. Subjective Subjective Interval history since last seen: Patient denies any nausea or vomiting. She just states that her throat is sore from having the NG in place. NG has been discontinued and patient is supposed to undergo a barium swallow this morning with a follow-up with speech therapy. Depending on the results of the barium swallow I may start her on a diet later today. Exam Narrative Exam Narrative: Obese female who is alert and oriented person place time circumstance in no distress. She is sitting up in bed. Lungs with diffuse bilateral wheezing. Heart regular rate and rhythm. Abdomen is obese soft nontender with normal active bowel sounds no guarding and no rebound tenderness. Objective Objective Clinical Data: Abnormal lab results 01/19/20 Range/Units 06:20 Sodium 148 H (136-145) mmol/L Potassium 3.1 L (3.5-5.1) mmol/L Chloride 109 H (98-107) mmol/L Carbon Dioxide 32.1 H (21.0-32.0) mmol/L BUN 6 L (7-18) mg/dL Glucose 115 H (74-106) mg/dL Calcium 8.1 L (8.5-10.1) mg/dL Magnesium 1.7 L (1.8-2.4) mg/dL Vital Signs Temperature 37.1 C 01/19/20 09:09 Temperature Source Temporal Artery Scan 01/19/20 09:09 Pulse 109 H 01/19/20 09:09 Pulse Rhythm Regular 01/19/20 08:02 Respiratory Rate 01/19/20 09:09 Respiratory Effort Short of Breath 01/19/20 08:02 Respiratory Depth Shallow 01/19/20 08:02 Respiratory Pattern Normal 01/19/20 08:02 Blood Pressure 124/81 01/19/20 09:09 Pulse Oximetry 93 L 01/19/20 09:10 Oxygen Delivery Method Room Air 01/19/20 09:10 Oxygen Flow Rate 0 01/19/20 09:10 Pain Level 0 01/19/20 09:09 Comment 01/19/20 09:09 Intake & Output 01/18/20 01/18/20 01/19/20 11:59 23:59 11:59 Intake Total 1050 / 2097.5 1047.5 / 2097.5 1164.25 / 1164.25 Output Total 175 / 4375 4200 / 4375 225 / 225 Balance 875 / -2277.5 -3152.5 / -2277.5 939.25 / 939.25 Weight 124.9 kg 124.4 kg Intake: IV 1050 / 2097.5 1047.5 / 2097.5 1164.25 / 1164.25 Output: Gastric Drainage 225 / 225 Left Nare 225 / 225 Urine 175 / 4375 4200 / 4375 Other: Urine Color Yellow Pale Yellow Light Sofia Yellow Urine Appearance Clear Clear Clear Sediment Urine Odor None Normal Normal Comment Pt voided some in brief and in bedside commode. New brief applied and linens changed Stool Occult Blood Negative Stool Size Moderate Stool Characteristics Liquid Voiding Methods Indwelling Catheter Bedside Commode Toilet Laboratory Results WBC 5.95 k/cumm (4.4-10.8) D 01/18/20 06:30 RBC 4.59 m/cumm (4.00-5.20) 01/18/20 06:30 Hgb 12.2 g/dL (12.0-15.5) 01/18/20 06:30 Hct 41.3 % (36.0-46.0) 01/18/20 06:30 MCV 90.0 fL (80-95) D 01/18/20 06:30 MCH 26.6 pg (27.0-33.0) L 01/18/20 06:30 MCHC 29.5 g/dL (32.0-36.0) L 01/18/20 06:30 RDW 16.0 % (11.7-14.6) H 01/18/20 06:30 Plt Count 274 x1000/uL (130-400) 01/18/20 06:30 MPV 9.9 fL (8.0-11.0) 01/18/20 06:30 Immature Gran % 0.3 % 01/18/20 06:30 Neutrophils % 58.2 01/18/20 06:30 Lymphocytes % 25.2 01/18/20 06:30 Monocytes % 10.8 01/18/20 06:30 Eosinophils % 5.2 01/18/20 06:30 Basophils % 0.3 01/18/20 06:30 Absolute Neutrophils 3.46 k/cumm (1.2-6.7) 01/18/20 06:30 Absolute Lymphocytes 1.50 k/cumm (1.2-3.4) 01/18/20 06:30 Absolute Monocytes 0.64 k/cumm (0.11-0.7) 01/18/20 06:30 Absolute Eosinophils 0.31 k/cumm (0.0-0.7) 01/18/20 06:30 Absolute Basophils 0.02 k/cumm (0.0-0.2) 01/18/20 06:30 Sodium 148 mmol/L (136-145) H 01/19/20 06:20 Potassium 3.1 mmol/L (3.5-5.1) L 01/19/20 06:20 Chloride 109 mmol/L (98-107) H 01/19/20 06:20 Carbon Dioxide 32.1 mmol/L (21.0-32.0) H 01/19/20 06:20 Anion Gap 6.9 mmol/L (3-11) 01/19/20 06:20 BUN 6 mg/dL (7-18) L 01/19/20 06:20 Creatinine 0.66 mg/dL (0.55-1.02) 01/19/20 06:20 Estimated GFR/1.73 m2 >= 60.00 (mL/min/1.73m2) 01/19/20 06:20 Glucose 115 mg/dL (74-106) H 01/19/20 06:20 Lactate 0.9 mmol/L (0.6-1.4) 01/16/20 19:42 Calcium 8.1 mg/dL (8.5-10.1) L 01/19/20 06:20 Magnesium 1.7 mg/dL (1.8-2.4) L 01/19/20 06:20 Total Bilirubin 0.3 mg/dL (0.2-1.0) 01/18/20 06:30 Conjugated Bilirubin 0.09 mg/dL (0.00-0.20) 01/17/20 07:00 AST 21 U/L (15-37) 01/18/20 06:30 ALT 21 U/L (14-59) 01/18/20 06:30 Alkaline Phosphatase 78 U/L (46-116) 01/18/20 06:30 NT-Pro-B Natriuret Pep 135 pg/mL (<300) 01/18/20 06:30 Total Protein 6.1 g/dL (6.4-8.2) L 01/18/20 06:30 Albumin 2.6 g/dL (3.4-5.0) L 01/18/20 06:30 TSH 2.05 uIU/mL (0.36-3.74) 01/17/20 07:00 Urine Color Yellow (Yellow) 01/17/20 04:45 Urine Clarity Clear (Clear) 01/17/20 04:45 Urine pH 7.0 (5-8) 01/17/20 04:45 Ur Specific [place] 1.015 (1.005-1.025) 01/17/20 04:45 Urine Protein Negative mg/dL (Negative) 01/17/20 04:45 Urine Ketones Negative mg/dL (Negative) 01/17/20 04:45 Urine Blood Negative (Negative) 01/17/20 04:45 Urine Nitrite Negative (Negative) 01/17/20 04:45 Urine Bilirubin Negative (Negative) 01/17/20 04:45 Urine Urobilinogen 0.2 EU/dL (Up TO 0.2) 01/17/20 04:45 Ur Leukocyte Esterase Negative (Negative) 01/17/20 04:45 Urine Glucose Negative mg/dL (Negative) 01/17/20 04:45 COVID-19 PCR Negative (Negative) 01/17/20 00:00 Nasopharyn COVID-19 PCR Not Applicable 01/17/20 00:00 Ref Test Perform Site [facility] 01/17/20 00:00
--- NOTE | 2020-01-19 10:37 | PT.INTREAT ---
Date of service: 01/19/20 Time of Service: 10:37 PT Notes Visit Reasons: DYSPHAGIA FOR LIQUIDS, ESOPHAGEAL DYSMOTILITY Inpatient Physical Therapy Treatment Note [facility] Date: 01/19/20 PRECAUTIONS: Fall SUBJECTIVE: Christie is pleasant and agreeable to participating in PT. OBJECTIVE: Second session abbreviated due to patient going to testing. PAIN: No c/o pain BED MOBILITY/TRANSFERS Supine-sit: SBA with HOB at 40 degrees Sit-stand: CGA Stand-sit: CGA GAIT Assistive Device: FWW Weight bearing: Full Assist: CGA Distance: 60' x2 in a.m.; 60' in p.m. Deviation: Seated rest, cueing for decrease shoulder elevation, wheelchair follow ASSESSMENT: Patient tolerated session well, with minimal complaint of shoulder pain with gait training due to increased shoulder elevation. She was able to tolerate a progression in gait distance with FWW support and CGA. PLAN: Continue with PT's POC TREATMENT CODE/TIME: Session 1: 20 minutes; [id number] Session 2: 10 minutes; [id number]
[2020-01-19 10:59] LABS: NT-proBNP 141 pg/mL (<300)
[2020-01-19] MEDS: Barium Sulfate 60% W/V 355 ML BTL 100 ML PO (11:45)
[2020-01-19] MEDS: Albuterol 2.5 MG/3 ML INH SOLN VIAL UPD (12:04)
[2020-01-19] MEDS: POTASSIUM CHLORIDE 20 MEQ/100 ML BAG 50 MEQ IVPB ×3 (13:04→15:23)
[2020-01-19 15:05] LABS: Potassium 3.3 mmol/L (3.5-5.1)
[2020-01-19] MEDS: OLANZapine 10 MG VIAL 15 MG IM (22:18)
[2020-01-19] MEDS: Water,Injection,Sterile 10 ML VIAL IJ (22:19)
[2020-01-20] VITALS (11 sets, daily range): BP systolic 110–155; BP diastolic 56–110; PULSE 77–99; RESP 4–20; TEMP 35.2–36.7; O2SAT 92–97
[2020-01-20 06:39] LABS: Anion Gap 3.2 mmol/L (3-11); BUN 6 mg/dL (7-18); CO2 31.8 mmol/L (21.0-32.0); CREATININE 0.53 mg/dL (0.55-1.02); Calcium 7.9 mg/dL (8.5-10.1); Chloride 109 mmol/L (98-107); Glucose 103 mg/dL (74-106); Potassium 3.6 mmol/L (3.5-5.1); Sodium 144 mmol/L (136-145)
[2020-01-20] MEDS: Nystatin POWDER 60 GM JAR TP ×3 (08:12→20:23)
[2020-01-20] MEDS: LORazepam 2 MG/ML VIAL IM (08:12)
[2020-01-20] MEDS: Pantoprazole 40 MG VIAL IVP (08:12)
[2020-01-20] MEDS: Normal Saline Flush 10 ML SYR IVP ×3 (08:13→18:12)
--- NOTE | 2020-01-20 09:26 | NUR.NOTE ---
Nursing Note: At 0855 on 01/20/20, this RN returned a phone call from the pt.'s sister, Netta. Pt.'s sister just wanted an update on the pt. This RN informed pt.'s sister of pt.'s VS, that the pt. was denying any pain/discomfort, of the pt.'s head to toe assessment, of the results of the pt.'s barium swallow, and that the pt. may be discharged back to the [facility] today. Pt.'s sister asked to be called prior to the pt. being discharged. RN will reassess as necessary.
--- NOTE | 2020-01-20 10:06 | PDOC.CMPRO ---
- If Service Date Differs Date of service: 01/20/20 Time of Service: 10:06 Care Management Progress Note S/O: Christie was ambulating in the leo with PT when CM met with her. She was pleasant and smiling as usual and reported that she is doing good. She shared that she ate breakfast this morning without difficulty and is looking forward to solid food for lunch. CM shared that if she does well with lunch and dinner today, that she will likely be able to return to [facility] tomorrow. Christie appeared pleased with that information. . A: Christie is a 64 year old woman admitted on 01/16/20 with dysphagia P: Christie will return to the [facility] when medically ready per MD. Ana, DNS at the [facility], was contacted . She stated that [facility] is unable to accept her today as they have no isolation room available. Ana was also questioned regarding the need for repeat Covid testing. She was told that Christie's admission test was done on 01/17/20 at 0000. Ana stated that if Christie returns tomorrow morning, a new test will not be necessary. Christie will transport via [facility]. CM will continue to support Christie and assess for discharge planning needs.
[2020-01-20] MEDS: POTASSIUM CHLORIDE/D5-0.45NACL 1,000 ML 65 MEQ IV (10:18)
[2020-01-20] MEDS: FAMOTIDINE 20 MG/50 ML BAG 200 MG IVPB (10:22)
--- NOTE | 2020-01-20 10:38 | NUR.NOTE ---
Nursing Note: At 1015 on 01/20/20, this RN consulted with the oracle analyst to determine plan of care for the stage one pressure injury noted on pt.'s left buttock. stud dairy cattle farmer informed that the pt. has had a mepilex dressing over the pressure injury, but that the dressing has already come off twice this morning (dressing change was performed first time; dressing was left off and z guard cream was applied second time) when pt. was up to the bedside commode. Per oracle analyst, have the order for the mepilex dressing discontinued, don't apply any z guard or yessenia cream unless the pressure injury site opens up, and instead, just turn and reposition the pt. q1hr and have the pt. stand and move around the room approximately q1-2hr. Charge nurse and MD notified of this conversation and are agreeable to the plan of care. RN will reassess as necessary.
[2020-01-20] MEDS: Acetaminophen Solution 650 MG/20.3 ML CUP PO (11:01)
--- NOTE | 2020-01-20 11:20 | PT.INTREAT ---
Date of service: 01/20/20 Time of Service: 11:20 PT Notes Visit Reasons: DYSPHAGIA FOR LIQUIDS, ESOPHAGEAL DYSMOTILITY Inpatient Physical Therapy Treatment Note [facility] Date: 01/20/20 PRECAUTIONS: Fall. Standard. Activity as tolerated. SUBJECTIVE: Agreable to PT session. Denies headache, dizziness, back pain throughout session. States that she has special shoes at the [facility] that she wears for her feet. OBJECTIVE: Continued swelling seen in B feet and distal legs. B out-toeing. IV in R UE. PAIN: None. BED MOBILITY/TRANSFERS Sit-stand: SBA Stand-sit: SBA Bed?chair: SBA Chair?bed: SBA GAIT Assistive Device: FWW Weight bearing: Full Assist: CGA Distance: 75 feet x 2 Deviation: 1 Seated rest. Walker height lowered down to minimize strain on B shoulders. Step to gait pattern. Wheelchair follow by FELICITAS Szymanski. B foot eversion. Oxygen saturation of 95-96% on room air and HR 92-110 bpm. THERA EX: Patient tolerated seated level exercises consisting of LAQs x10, seated hip flexion x10, and ankle pumping x20 with out increase in pain or undue difficulty. ASSESSMENT: Patient tolerated session well with no complaint of B shoulder pain with walker height adjustment. She was able to tolerate a progression in gait distance with FWW support and CGA. PLAN: Progress with PT POC as tolerated by patient. TREATMENT CODE/TIME: 39259 x 20 minutes, 95860 x 10 minutes, beginning at 11:20 AM.
--- NOTE | 2020-01-20 11:22 | W.PM.PROGNOT ---
Date of Service Date of service: 01/20/20 Time of Service: 11:22 Assessment and Plan Assessment and plan (1) Dysphagia: Status: Acute Assessment and plan: Barium swallow showed a Schatzki's ring but otherwise no mechanical obstruction. Patient was advanced to a clear liquid diet yesterday. And can advance her to moisten minced solids along with thin liquids. She does well with this she can be discharged to the [facility] and follow-up as an outpatient with speech therapy. Patient should follow-up with GI at [facility] regarding the Schatzki's ring. Case discussed with the speech therapist. Qualifiers: Dysphagia type: esophageal phase Qualified Code(s): R13.10 - Dysphagia, unspecified (2) Esophageal dysmotility: Status: Chronic Assessment and plan: As above. (3) Gallbladder anomaly: Status: Chronic Assessment and plan: The patient has IgG4 disease causing gallbladder fibrosis. Negative endoscopic ultrasound in August 2019 and a more recent MRCP was also negative. (4) Chronic diastolic CHF (congestive heart failure): Status: Chronic Assessment and plan: I will resume her amlodipine and lisinopril and furosemide. I have written for parameters for holding based on her blood pressure. (5) DVT prophylaxis: Status: Acute Assessment and plan: venous duplex of her legs was negative for DVT. Will give her DVT prophylaxis w/ CHEYANNE and SCD's (6) Discharge planning issues: Status: Acute Assessment and plan: Continues with DNR/DNI status. Palliative consult from Dr. Ramirez appreciated. Patient to return to the [facility] tomorrow morning. Subjective Subjective Interval history since last seen: Patient is feeling much better today. She has no nausea no vomiting no abdominal pain. She tolerated clear liquid diet. Work on advance her diet and give her moistened minced foods with thin liquids. Unfortunately the [facility] cannot take her back this afternoon so we will plan for discharge tomorrow morning. Speech therapy is unavailable to see her today so we will have him follow-up with her at the [facility] starting tomorrow. Her barium swallow demonstrated a Schatzki's ring. Patient should follow-up with GI at [facility] upon discharge. Exam Narrative Exam Narrative: Obese female who is alert and oriented person place time circumstance in no distress. She is sitting up in bed. Lungs clear to auscultation Heart regular rate and rhythm. Abdomen is obese soft nontender with normal active bowel sounds no guarding and no rebound tenderness. Objective Objective Clinical Data: Abnormal lab results 01/19/20 01/20/20 Range/Units 14:55 06:05 Potassium 3.3 L (3.5-5.1) mmol/L Chloride 109 H (98-107) mmol/L BUN 6 L (7-18) mg/dL Creatinine 0.53 L (0.55-1.02) mg/dL Calcium 7.9 L (8.5-10.1) mg/dL Vital Signs Temperature 36.6 C 01/20/20 07:57 Temperature Source Tympanic 01/20/20 07:57 Pulse 90 01/20/20 07:57 Pulse Rhythm Regular 01/20/20 07:15 Respiratory Rate 01/20/20 07:57 Respiratory Effort Non-Labored 01/20/20 07:15 Respiratory Depth Normal 01/20/20 07:15 Respiratory Pattern Normal 01/20/20 07:15 Blood Pressure 114/76 01/20/20 07:57 Pulse Oximetry 92 L 01/20/20 07:57 Oxygen Delivery Method Room Air 01/20/20 07:57 Oxygen Flow Rate 0 01/20/20 07:57 Pain Level 9 01/20/20 11:01 Comment 01/20/20 07:10 Intake & Output 01/19/20 01/19/20 01/20/20 11:59 23:59 11:59 Intake Total 1214.25 / 1818.417 604.167 / 1818.417 534.333 / 534.333 Output Total 300 / 500 200 / 500 350 / 350 Balance 914.25 / 1318.417 404.167 / 1318.417 184.333 / 184.333 Weight 124.4 kg 123.1 kg Intake: IV 1214.25 / 1338.417 124.167 / 1338.417 54.333 / 54.333 Oral 480 / 480 480 / 480 Output: Gastric Drainage 300 / 300 Left Nare 300 / 300 Urine 200 / 200 350 / 350 Other: Urine Color Yellow Straw Yellow Urine Appearance Clear Clear Clear Urine Odor Normal Normal Normal Comment incontinent with stool Void x1 in the bedside commode. Urine mixed with stool; RN unable to determine urine amount. Stool Occult Blood Negative Negative Stool Size Moderate Small Stool Characteristics Liquid Soft Brown Voiding Methods Toilet Bedside Commode Laboratory Results WBC 5.95 k/cumm (4.4-10.8) D 01/18/20 06:30 RBC 4.59 m/cumm (4.00-5.20) 01/18/20 06:30 Hgb 12.2 g/dL (12.0-15.5) 01/18/20 06:30 Hct 41.3 % (36.0-46.0) 01/18/20 06:30 MCV 90.0 fL (80-95) D 01/18/20 06:30 MCH 26.6 pg (27.0-33.0) L 01/18/20 06:30 MCHC 29.5 g/dL (32.0-36.0) L 01/18/20 06:30 RDW 16.0 % (11.7-14.6) H 01/18/20 06:30 Plt Count 274 x1000/uL (130-400) 01/18/20 06:30 MPV 9.9 fL (8.0-11.0) 01/18/20 06:30 Immature Gran % 0.3 % 01/18/20 06:30 Neutrophils % 58.2 01/18/20 06:30 Lymphocytes % 25.2 01/18/20 06:30 Monocytes % 10.8 01/18/20 06:30 Eosinophils % 5.2 01/18/20 06:30 Basophils % 0.3 01/18/20 06:30 Absolute Neutrophils 3.46 k/cumm (1.2-6.7) 01/18/20 06:30 Absolute Lymphocytes 1.50 k/cumm (1.2-3.4) 01/18/20 06:30 Absolute Monocytes 0.64 k/cumm (0.11-0.7) 01/18/20 06:30 Absolute Eosinophils 0.31 k/cumm (0.0-0.7) 01/18/20 06:30 Absolute Basophils 0.02 k/cumm (0.0-0.2) 01/18/20 06:30 Sodium 144 mmol/L (136-145) 01/20/20 06:05 Potassium 3.6 mmol/L (3.5-5.1) 01/20/20 06:05 Chloride 109 mmol/L (98-107) H 01/20/20 06:05 Carbon Dioxide 31.8 mmol/L (21.0-32.0) 01/20/20 06:05 Anion Gap 3.2 mmol/L (3-11) 01/20/20 06:05 BUN 6 mg/dL (7-18) L 01/20/20 06:05 Creatinine 0.53 mg/dL (0.55-1.02) L 01/20/20 06:05 Estimated GFR/1.73 m2 >= 60.00 (mL/min/1.73m2) 01/20/20 06:05 Glucose 103 mg/dL (74-106) 01/20/20 06:05 Lactate 0.9 mmol/L (0.6-1.4) 01/16/20 19:42 Calcium 7.9 mg/dL (8.5-10.1) L 01/20/20 06:05 Magnesium 2.0 mg/dL (1.8-2.4) 01/20/20 06:05 Total Bilirubin 0.3 mg/dL (0.2-1.0) 01/18/20 06:30 Conjugated Bilirubin 0.09 mg/dL (0.00-0.20) 01/17/20 07:00 AST 21 U/L (15-37) 01/18/20 06:30 ALT 21 U/L (14-59) 01/18/20 06:30 Alkaline Phosphatase 78 U/L (46-116) 01/18/20 06:30 NT-Pro-B Natriuret Pep 141 pg/mL (<300) 01/19/20 06:20 Total Protein 6.1 g/dL (6.4-8.2) L 01/18/20 06:30 Albumin 2.6 g/dL (3.4-5.0) L 01/18/20 06:30 TSH 2.05 uIU/mL (0.36-3.74) 01/17/20 07:00 Urine Color Yellow (Yellow) 01/17/20 04:45 Urine Clarity Clear (Clear) 01/17/20 04:45 Urine pH 7.0 (5-8) 01/17/20 04:45 Ur Specific [place] 1.015 (1.005-1.025) 01/17/20 04:45 Urine Protein Negative mg/dL (Negative) 01/17/20 04:45 Urine Ketones Negative mg/dL (Negative) 01/17/20 04:45 Urine Blood Negative (Negative) 01/17/20 04:45 Urine Nitrite Negative (Negative) 01/17/20 04:45 Urine Bilirubin Negative (Negative) 01/17/20 04:45 Urine Urobilinogen 0.2 EU/dL (Up TO 0.2) 01/17/20 04:45 Ur Leukocyte Esterase Negative (Negative) 01/17/20 04:45 Urine Glucose Negative mg/dL (Negative) 01/17/20 04:45 COVID-19 PCR Negative (Negative) 01/17/20 00:00 Nasopharyn COVID-19 PCR Not Applicable 01/17/20 00:00 Ref Test Perform Site [facility] 01/17/20 00:00 Reviewed Pertinent PMH: Yes Objective Narrative Objective Narrative: Exam(s) a RF:RF barium swallow EXAM: RF BARIUM SWALLOW CLINICAL HISTORY: dysphagia TECHNIQUE: 2D and realtime digital imaging was performed. CONTRAST MATERIAL: Thick and thin barium and barium tablet were administered. COMPARISON: No exams were available for comparison FINDINGS: The physical security specialist view of the chest shows normal heart size. The lungs appear clear. The physical security specialist view of the neck shows degenerative changes of the cervical spine. Exam is limited due to patient's inability to stand. Thin barium was administered. The patient declined administration of the barium tablet saying she is unable to swallow pills. No aspiration was observed during the exam. There is a small sliding hiatal hernia and a distal esophageal Schatzki ring. The more proximal esophagus is unremarkable. No gastroesophageal reflux was observed during the exam. IMPRESSION: Limited exam. Schatzki ring.
[2020-01-20] MEDS: methIMAzole 5 MG TAB PO (12:07)
[2020-01-20] MEDS: Potassium Chloride Liquid 20 MEQ PKT 30 MEQ PO (12:08)
--- NOTE | 2020-01-20 13:06 | W.PALPGNOTE ---
Date of service: 01/20/20 Time of Service: 10:06 Assessment and Plan Assessment and plan (1) Schatzki's ring of distal esophagus: Status: Acute (2) Hematemesis: Status: Resolved (3) Obesity, morbid, BMI 40.0-49.9: Status: Acute (4) Palliative care patient: Status: Acute Assessment and plan: Overall Cheryle is doing very well. She is starting to eat. The hope is that she will be able to eat turn to a modified diet . She is not excited about the prospect of a feeding tube. She was willing to go that route if necessary. I have been in contact with her sister over the last few days. We are both very happy that Cheryle is doing so well. Will persue GI consult in the future if necessary. This document was created by [employer] software. Content was screened for misspellings, grammatical mistakes, etc. I apologize for any problems, but please contact me for further clarification if needed. Subjective Subjective Interval history since last seen: Over the last few days Cheryle has gotten much better. She states that she was able to take p.o. yesterday and that she ate her entire breakfast. From the looks of her breakfast tray it is mostly liquids and soft solids. She is hopeful to be able to go back to the [facility] soon Exam Narrative Exam Narrative: Cheryle looks great. Her heart is regular. Her lungs she cooperates with the exam but she is not real good at taking good deep breaths. I did hear a few rales in places. Her abdomen is soft nontender. She did pass gas while I was there. Objective Objective Clinical Data: Abnormal lab results 01/19/20 01/20/20 Range/Units 14:55 06:05 Potassium 3.3 L (3.5-5.1) mmol/L Chloride 109 H (98-107) mmol/L BUN 6 L (7-18) mg/dL Creatinine 0.53 L (0.55-1.02) mg/dL Calcium 7.9 L (8.5-10.1) mg/dL Vital Signs Temperature 97.5 F L 01/20/20 11:30 Temperature Source Tympanic 01/20/20 11:30 Pulse 95 H 01/20/20 12:07 Pulse Rhythm Regular 01/20/20 07:15 Respiratory Rate 18 01/20/20 11:30 Respiratory Effort Non-Labored 01/20/20 07:15 Respiratory Depth Normal 01/20/20 07:15 Respiratory Pattern Normal 01/20/20 07:15 Blood Pressure 143/95 H 01/20/20 12:07 Pulse Oximetry 96 01/20/20 11:30 Oxygen Delivery Method Room Air 01/20/20 11:30 Oxygen Flow Rate 0 01/20/20 11:30 Pain Level 9 01/20/20 11:01 Comment 01/20/20 07:10 Intake & Output 01/19/20 01/20/20 01/20/20 23:59 11:59 23:59 Intake Total 604.167 / 1818.417 534.333 / 534.333 Output Total 200 / 500 550 / 550 Balance 404.167 / 1318.417 -15.667 / -15.667 Weight 271 lb 6.224 oz Intake: IV 124.167 / 1338.417 54.333 / 54.333 Oral 480 / 480 480 / 480 Output: Urine 200 / 200 550 / 550 Other: Urine Color Straw Yellow Urine Appearance Clear Clear Urine Odor Normal Normal Comment incontinent with stool Void x1 in the bedside commode. Briefs were changed. Stool Occult Blood Negative Negative Stool Size Moderate Small Stool Characteristics Liquid Soft Brown Voiding Methods Bedside Commode Bedside Commode Laboratory Results WBC 5.95 k/cumm (4.4-10.8) D 01/18/20 06:30 RBC 4.59 m/cumm (4.00-5.20) 01/18/20 06:30 Hgb 12.2 g/dL (12.0-15.5) 01/18/20 06:30 Hct 41.3 % (36.0-46.0) 01/18/20 06:30 MCV 90.0 fL (80-95) D 01/18/20 06:30 MCH 26.6 pg (27.0-33.0) L 01/18/20 06:30 MCHC 29.5 g/dL (32.0-36.0) L 01/18/20 06:30 RDW 16.0 % (11.7-14.6) H 01/18/20 06:30 Plt Count 274 x1000/uL (130-400) 01/18/20 06:30 MPV 9.9 fL (8.0-11.0) 01/18/20 06:30 Immature Gran % 0.3 % 01/18/20 06:30 Neutrophils % 58.2 01/18/20 06:30 Lymphocytes % 25.2 01/18/20 06:30 Monocytes % 10.8 01/18/20 06:30 Eosinophils % 5.2 01/18/20 06:30 Basophils % 0.3 01/18/20 06:30 Absolute Neutrophils 3.46 k/cumm (1.2-6.7) 01/18/20 06:30 Absolute Lymphocytes 1.50 k/cumm (1.2-3.4) 01/18/20 06:30 Absolute Monocytes 0.64 k/cumm (0.11-0.7) 01/18/20 06:30 Absolute Eosinophils 0.31 k/cumm (0.0-0.7) 01/18/20 06:30 Absolute Basophils 0.02 k/cumm (0.0-0.2) 01/18/20 06:30 Sodium 144 mmol/L (136-145) 01/20/20 06:05 Potassium 3.6 mmol/L (3.5-5.1) 01/20/20 06:05 Chloride 109 mmol/L (98-107) H 01/20/20 06:05 Carbon Dioxide 31.8 mmol/L (21.0-32.0) 01/20/20 06:05 Anion Gap 3.2 mmol/L (3-11) 01/20/20 06:05 BUN 6 mg/dL (7-18) L 01/20/20 06:05 Creatinine 0.53 mg/dL (0.55-1.02) L 01/20/20 06:05 Estimated GFR/1.73 m2 >= 60.00 (mL/min/1.73m2) 01/20/20 06:05 Glucose 103 mg/dL (74-106) 01/20/20 06:05 Lactate 0.9 mmol/L (0.6-1.4) 01/16/20 19:42 Calcium 7.9 mg/dL (8.5-10.1) L 01/20/20 06:05 Magnesium 2.0 mg/dL (1.8-2.4) 01/20/20 06:05 Total Bilirubin 0.3 mg/dL (0.2-1.0) 01/18/20 06:30 Conjugated Bilirubin 0.09 mg/dL (0.00-0.20) 01/17/20 07:00 AST 21 U/L (15-37) 01/18/20 06:30 ALT 21 U/L (14-59) 01/18/20 06:30 Alkaline Phosphatase 78 U/L (46-116) 01/18/20 06:30 NT-Pro-B Natriuret Pep 141 pg/mL (<300) 01/19/20 06:20 Total Protein 6.1 g/dL (6.4-8.2) L 01/18/20 06:30 Albumin 2.6 g/dL (3.4-5.0) L 01/18/20 06:30 TSH 2.05 uIU/mL (0.36-3.74) 01/17/20 07:00 Urine Color Yellow (Yellow) 01/17/20 04:45 Urine Clarity Clear (Clear) 01/17/20 04:45 Urine pH 7.0 (5-8) 01/17/20 04:45 Ur Specific [place] 1.015 (1.005-1.025) 01/17/20 04:45 Urine Protein Negative mg/dL (Negative) 01/17/20 04:45 Urine Ketones Negative mg/dL (Negative) 01/17/20 04:45 Urine Blood Negative (Negative) 01/17/20 04:45 Urine Nitrite Negative (Negative) 01/17/20 04:45 Urine Bilirubin Negative (Negative) 01/17/20 04:45 Urine Urobilinogen 0.2 EU/dL (Up TO 0.2) 01/17/20 04:45 Ur Leukocyte Esterase Negative (Negative) 01/17/20 04:45 Urine Glucose Negative mg/dL (Negative) 01/17/20 04:45 COVID-19 PCR Negative (Negative) 01/17/20 00:00 Nasopharyn COVID-19 PCR Not Applicable 01/17/20 00:00 Ref Test [facility] 01/17/20 00:00
[2020-01-20] MEDS: Furosemide 40 MG TAB PO (16:37)
[2020-01-20] MEDS: Magnesium Oxide 400 MG TAB PO (20:23)
[2020-01-20] MEDS: Albuterol 2.5 MG/3 ML INH SOLN VIAL UPD (20:29)
[2020-01-20] MEDS: OLANZapine 10 MG, OLANZapine 5 MG 15 MG PO (21:47)
[2020-01-21] VITALS (7 sets, daily range): BP systolic 107–140; BP diastolic 56–88; PULSE 78–95; RESP 17–22; TEMP 36.3–37.2; O2SAT 93–98
[2020-01-21] MEDS: POTASSIUM CHLORIDE/D5-0.45NACL 1,000 ML 65 MEQ IV (01:33)
[2020-01-21] MEDS: Normal Saline Flush 10 ML SYR IVP ×2 (06:34→11:56)
[2020-01-21] MEDS: amLODIPine 5 MG TAB PO (08:02)
[2020-01-21] MEDS: Magnesium Oxide 400 MG TAB PO (08:02)
[2020-01-21] MEDS: methIMAzole 5 MG TAB PO (08:02)
[2020-01-21] MEDS: Potassium Chloride Liquid 20 MEQ PKT 30 MEQ PO (08:02)
[2020-01-21] MEDS: Furosemide 40 MG TAB PO (08:02)
[2020-01-21] MEDS: Lisinopril 10 MG TAB PO (08:02)
[2020-01-21] MEDS: Nystatin POWDER 60 GM JAR TP ×2 (08:03→14:13)
--- NOTE | 2020-01-21 09:16 | SPP_ITS ---
Date of service: 01/19/20 Time of Service: 14:00 Subjective This [employer] is very familiar with pt having worked with her extensively following last hospitalization with eventual return of swallow function and removal of PEG tube. Spoke with Dr. Ramirez as well as Dr. Murray. Pts dysphagia is esophageal in nature and previous testing has revealed poor motility and a non- obstructing Schatski's ring. Despite this, pt has been tolerating regular texture diet with moist ground meat at the [facility] but does require occasional cues for safe swallow strategies including small bites, pacing and thorough mastication. Recommend pt be re-assessed by [employer] upon return to [facility] to ensure staff follow through with correct diet texture and safe swallow strategies.
[2020-01-21 11:23] LABS: Bilirubin Negative (Negative); Blood Negative (Negative); Clarity Clear (Clear); Glucose Negative (Negative); Ketones Negative (Negative); Leukocyte Esterase Negative (Negative); Nitrite Negative (Negative); Urobilinogen 0.2 EU/dL (Up TO 0.2)
[2020-01-21] MEDS: Phenazopyridine 200 MG TAB PO ×2 (11:55→14:13)
[2020-01-21] MEDS: Fosfomycin Tromethamine 3 GM PACKET PO (11:55)
--- NOTE | 2020-01-21 14:01 | W.NUTCONSULT ---
Date of service: 01/21/20 Time of Service: 14:01 Nutritional Consult ASSESSMENT: 64 year old female, resident of the [facility]. Admitted with hematemesis. PMH: CHF, morbid obesity, esophageal dysmotility with hx of reliance on peg feedings. Pallative care patient. Barium Swallow 01/19/20 and speech consult completed. Current diet of heart healthy soft bite sized foods appropriate at this time per ACQUISITION ADVISOR. ACQUISITION ADVISOR will follow when returns to the [facility]. Completing > 75% of meals. Currently meeting nutrient and fluid needs. NUTRITIONAL DIAGNOSIS: esophageal dysmotility Intervention: none needed at this time, current diet appropriate. Plan: will monitor po intake, labs, weight and make recommendations as warranted. Time Spent in Nutritional Counseling and Treatment: 5 min face to face
--- NOTE | 2020-01-21 14:37 | CHAPLAIN ---
Christie lives at [facility], and said she may return there today. She is originally from [place] and taked about how much she liked it there. Christie aid she is feeling better. She was very pleasant and easily engaged in a conversation.
--- NOTE | 2020-01-21 14:53 | DSE_ITS ---
Date of service: 01/21/20 Time of Service: 14:54 DS: Diagnosis Discharge Diagnosis (1) Schatzki's ring of distal esophagus: Status: Acute Asessment and Plan: Patient needs to follow Speech pathologists recommendations regarding swallowing/eating safety precautions (sitting upright at 90 degrees for 30 minutes after meals and 15 to 20 minutes after meds), no meals or snacks within 2hours of lying down at bedtime. Alternating solids and liquids taking small bites and double swallows between bites. continue your H2 sary. 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 Recent MRCP of her abdomen demonstrated no hepatic mass and biliary ductal dilatation but non-obstructive gall stones. (5) Chronic diastolic CHF (congestive heart failure): Status: Chronic Asessment and Plan: patient's lasix was held while she was NPO and receiving iv fluids. Her lasix should be resumed as previously prescribed and repeat BMP should be obtained within one week. (6) Discharge planning issues: Status: Resolved Asessment and Plan: patient is being discharged back to [facility] for follow up with her PCP and with Speech therapy. Further follow up may be needed w/ GI regarding her Schatzki esophageal ring if she has further swallowing problems. Discharge Plan Disposition Patient Disposition: SNF (LEVEL 1) [facility] Condition: Improving Discharge Details Chief Complaint: GenMedical Clinical Impression: Dysphagia Reason For Visit: DYSPHAGIA FOR LIQUIDS, ESOPHAGEAL DYSMOTILITY Admit Date/Time: 01/16/20 22:38 Admit Provider: Clarisse Barrera Attending Provider: Clarisse Barrera Primary Care Provider: Ann Marie Roa ED Provider: Anika Gomes Hospital Course Hospital Course: 64-year-old female resident of the [facility] in [facility] who has a past medical history significant for schizophrenia with catatonia as well as a history of GERD and gastric ulcer and autoimmune hepatitis and 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 Patient presented to the emergency department after having a choking spell on some chicken sandwich. She has had a history of swallowing difficulties after she was in a prolonged catatonic state and had required a PEG tube which was removed in November 2018. Since that time she had done well with speech therapy and was eating a regular diet. She had been on dysphasia diet but had been increased to a regular diet. See her H&P for details of her presentation. Patient was made n.p.o. and underwent a CT scan of her chest abdomen and pelvis. Chest portion showed a distended esophagus with fluid in the distal esophagus with no evidence of mass. Pulmonary parenchyma showed no consolidation. No pleural effusion and no evidence for pulmonary embolus CT through the abdomen showed contracted gallbladder with stones and diverticulosis but no evidence for diverticulitis. Liver showed fatty liver changes. Pancreas appear to be normal. Kidneys appear to be normal with the exception of a small left renal cyst. Abdominal aorta was nondilated. Patient was admitted to the hospital and made n.p.o. Consultation with general surgery with Dr. Ayesha Bess on January 17, 2020. Dr. Bess recommended NG tube due to increased risk for aspiration however at that time the family the patient did not consent to an NG. Dr. Ramirez who knows the patient well was consulted from a palliative care standpoint and saw the patient on January 17. Patient's sister Netta Herrera was adamant that she did not want her sister have another gastric feeding tube. I met with her sister the next day and she and the patient confirmed a willingness to have an NG tube placed. NG was placed the next morning on January 18, 2020 placed to low intermittent suction. Dr. Petra Frank saw the patient on Saturday, January 18, 2020 and after a bedside swallowing test with clear liquids was tried and the patient tolerated without coughing or choking it was decided that an EGD would not be needed and that a barium swallow would be performed. Barium swallowing evaluation was subsequently performed on Sunday January 19, 2020 which demonstrated Schatzki's ring and a small sliding hiatal hernia. Patient was placed on a clear liquid diet and tolerated this wel l on January 18 through January 19. On the afternoon of January 19 her diet was advanced to minced and moist foods with thin liquids. She tolerated this diet well. Unfortunate the [facility] cannot take the patient back on January 20, 2020 and therefore she was held until January 21, 2020. On the morning of January 21, 2020 patient did have some nausea but no vomiting. She has had some loose stools for which we ordered a repeat C. difficile study. Her initial cultures from January 15 showed no growth on her blood cultures. Her initial urine culture showed gram- positive maite mixed less than 10,000 colonies. However subsequently we found that the urine culture is also growing less than 10,000 colonies of gram- negative alethea. On the morning of discharge she did complain of some dysuria at which point I ordered a repeat urinalysis and urine culture. Urine culture is pending at the time of discharge but the catheterized urine specimen appears to be clean. Specifically it is negative for protein ketones blood nitrites or bilirubin or leukocyte Estrace. Nevertheless the patient was given a dose of fosfomycin 3 g along with Pyridium 200 mg. Stool for C. difficile is pending at this time. Patient is clinically stable and ready for transfer to a assisted where her PCP can follow-up on the C. difficile study and urine culture results. Patient can should continue to work with speech therapy. On the day of discharge she was seen by speech therapy by Sameera Mario who knows the patient well from working with her at the [facility]. She recommends the patient be reassessed by speech and language pathologist upon return to the [facility] to follow through with the correct diet texture and safe swallowing strategies. Home Meds and New Rx's Prescriptions: Continued famotidine 20 mg tablet 20 mg PO DAILY RF: 0 magnesium oxide 400 mg (241.3 mg magnesium) Tablet 400 mg PO DAILY RF: 0 lisinopril 10 mg Tablet 10 mg PO DAILY RF: 0 potassium chloride [Klor-Con M10] 10 mEq tablet,ER particles/crystals 30 meq PO DAILY RF: 0 escitalopram oxalate 5 mg tablet 5 mg PO DAILY RF: 0 Calcium 600 with Vitamin D3 600 mg(1,500mg) -400 unit Tablet,Chewable 1 tab PO BID RF: 0 clonazepam 1 mg tablet 1 mg PO TID RF: 0 guaifenesin [Tussin] 100 mg/5 mL Liquid 200 mg PO Q6H PRN PRN (Reason: Cough) RF: 0 ferrous sulfate 325 mg (65 mg iron) Tablet 325 mg PO BID RF: 0 olanzapine 15 mg tablet 15 mg PO HS RF: 0 furosemide 20 mg tablet 60 mg PO QAM RF: 0 Floranex 100 million cell Granules In Packet 1 packet PO TID RF: 0 Refresh Plus 0.5 % dropperette 1 ea OU DAILY PRN PRN (Reason: Dry Eyes) RF: 0 loperamide 2 mg Capsule 2 mg PO PRN PRN (Reason: Loose Stool) RF: 0 donepezil [Aricept] 10 mg Tablet 10 mg PO HS RF: 0 sumatriptan succinate 50 mg Tablet 50 mg PO PRN PRNRF: 0 methimazole 5 mg Tablet 5 mg PO DAILY RF: 0 acetaminophen 325 mg Tablet 650 mg PO TID PRN PRN (Reason: Pain) RF: 0 furosemide 40 mg tablet 40 mg PO DAILY@1400 RF: 0 amlodipine 5 mg tablet 5 mg PO DAILY RF: 0 ascorbic acid (vitamin C) [Vitamin C] 500 mg tablet 500 mg PO BID RF: 0 folic acid 1 mg tablet 1 mg PO DAILY RF: 0 imipramine HCl 25 mg tablet 25 mg PO HS RF: 0 Discharge Instructions Instructions: Aspiration Precautions (DC), Barium Swallow (DC) Additional Instructions: Speech therapy is to be consulted to reevaluate the patient upon return to the [facility] and to work with the patient and staff regarding swallowing safety precautions as well as to adjust the patient's diet to prevent aspiration. Get a follow-up BMP in 1 week. Pending lab results include stool for C. difficile toxin as well as repeat urine culture. Consult physical therapy to continue working with the patient regarding improving her strength and ambulation and balance and Occupational Therapy to continue work with the christiano ent regarding improving her independent ADL performance. Stand Alone Forms: Nursing Discharge Form Activity:: Activity as Tolerated Equipment/Supplies:: No Equipment Needed Diet:: Other Discharge Orders Discharge Orders: Discharge Order (Routine); Ordered 01/21/20 Ordered By: Yvon Murray Other Ambulatory Orders: Basic Metabolic Panel (Routine) Timeframe: 1 Week Facility: [facility] - Location: Laboratory Outpatient Ordered By: Yvon Murray DS: Summary Status at Discharge Functional status at discharge: uses cane/walker Overall status at discharge: patient is back to baseline Mental Status: mental status grossly normal Speech and Movement: speech and movement normal Mood: congruent mood Affect: normal affect Exam Narrative Exam Narrative: Obese female who is alert and oriented person place time circumstance in no distress. She is sitting up in bed. Lungs clear to auscultation Heart regular rate and rhythm. Abdomen is obese soft nontender with normal active bowel sounds no guarding and no rebound tenderness. Psych Mental Status: mental status grossly normal Speech and Movement: speech and movement normal Mood: congruent mood Affect: normal affect DS: Data Vitals/I&O Vitals and I&O: Vital Signs Temperature 37 C 01/21/20 11:48 Temperature Source Tympanic 01/21/20 11:48 Pulse 94 H 01/21/20 11:55 Pulse Rhythm Regular 01/21/20 04:38 Respiratory Rate 22 01/21/20 11:48 Respiratory Effort Labored 01/21/20 04:38 Respiratory Depth Deep 01/21/20 04:38 Respiratory Pattern Tachypnea 01/21/20 04:38 Blood Pressure 140/81 01/21/20 11:55 Pulse Oximetry 98 01/21/20 11:48 Oxygen Delivery Method Room Air 01/21/20 11:48 Oxygen Flow Rate 0 01/21/20 11:48 Pain Level 0 01/21/20 11:48 Comment 01/21/20 11:42 Intake & Output 01/20/20 01/21/20 01/21/20 23:59 11:59 23:59 Intake Total 1900 / 2454.333 1220.667 / 1460.667 240 / 1460.667 Output Total 600 / 1300 2860 / 3710 850 / 3710 Balance 1300 / 1154.333 -1639.333 / -2249.333 -610 / -2249.333 Weight 124.6 kg Intake: IV 50 / 124.333 980.667 / 980.667 Oral 1850 / 2330 240 / 480 240 / 480 Output: Urine 600 / 1300 2860 / 3710 850 / 3710 Other: Urine Color Yellow Pale Yellow Yellow Urine Appearance Clear Clear Clear Urine Odor Normal Normal Comment Void x1 in the bedside commode. Urine mixed with stool; RN unable to determine urine amount. void mixed with bm, when wiped pt there was trejo red blood on wipe. Stool Size Small Small Stool Characteristics Soft Formed Liquid Brown Voiding Methods Bedside Commode Bedside Commode Toilet Data Completed and Pending Labs on day of discharge: Labs from last 24 hours 01/21/20 11:15 Urine Color Yellow Urine Clarity Clear Urine pH 7.0 Ur Specific [place] 1.020 Urine Protein Negative Urine Ketones Negative Urine Blood Negative Urine Nitrite Negative Urine Bilirubin Negative Urine Urobilinogen 0.2 Ur Leukocyte Esterase Negative Urine Glucose Negative 01/21/20 11:15 Urine - Cath Straight Urine Culture - Pending Preliminary micro results at discharge 01/21/20 11:15 Urine Culture - Pending Urine - Cath Straight 01/16/20 20:05 Blood Culture - Preliminary Blood NO GROWTH 96 HOURS 01/16/20 19:54 Blood Culture - Preliminary Blood NO GROWTH 96 HOURS [facility] Medical History (Updated 01/21/20 @ 14:55 by Yvon Murray) Aspiration pneumonia (Ruled-out) Asthma (Chronic) Catatonia associated with another mental disorder (Acute) Cholestasis (Acute) Chronic diastolic CHF (congestive heart failure) (Chronic) Cirrhosis (Acute) Cognitive developmental delay (Acute) Dysphagia (Acute) Esophageal dysmotility (Chronic) Falls (Acute) 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 at [facility] on 08/25/2019 Gastric ulcer (Acute) GERD (gastroesophageal reflux disease) (Chronic) Hypertension (Chronic) Hypothyroidism (Chronic) 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 Obesity, morbid, BMI 40.0-49.9 (Acute) Palliative care patient (Acute) Roxi Dobbertin Schatzki's ring of distal esophagus (Acute) Schizophrenia (Chronic) Urinary retention (Acute) UTI (urinary tract infection) (Acute) Weakness on right side of face (Resolved) Surgical History (Updated 01/17/20 @ 01:29 by Clarisse Barrera MD) H/O esophagogastroduodenoscopy (Inactive) and endoscopic ultrasound 08/2019 at [facility] H/O oophorectomy (Acute) History of bilateral tubal ligation (Acute) History of hernia repair (Chronic) Social History Smoking/Tobacco Use Status: Never Alcohol Intake: never Drug use: Never Substance use type: does not use Household members: none Do you feel safe at home: Yes Do you feel safe in your relationship?: Yes Additional Social history: Resident @ [facility] [employer]
--- NOTE | 2020-01-21 15:12 | PTTR_ITS ---
Date of service: 01/21/20 Time of Service: 11:20 PT Notes Visit Reasons: DYSPHAGIA FOR LIQUIDS, ESOPHAGEAL DYSMOTILITY Inpatient Physical Therapy Treatment Note [facility] Date: 01/21/2020 SUBJECTIVE: Christie states that she is doing well. I am going back to the [facility] later today. OBJECTIVE: [] BED MOBILITY/TRANSFERS Sit-stand: SBA Stand-sit: SBA GAIT Assistive Device:FWW Weight bearing: FWB Assist: CGA Distance: approx 90' Deviation: wc to follow. She required 1 seated rest break x 2 min d/t shld fatigue. THEREX: global LE strength and stabilization. ASSESSMENT: tolerated session well. Reminders to relax shld and try to avoid pressing down on walker. PLAN: d/c to the [facility] later today. TREATMENT CODE/TIME: 25 min. [id number], [id number].
--- NOTE | 2020-01-21 15:35 | CMDISCH_ITS ---
- If Service Date Differs Date of service: 01/21/20 Time of Service: 15:36 LACE Index Scoring Tool - Questions: Length of Stay (in days): 4 - 6 Acuity (Admit via E.D.?): Yes Comorbidities: Congestive Heart Failure E.D. Visits: 1 - Answers: Total Score: 10 Risk of Readmission: High Risk Care Management Discharge Reason for Hospitalization: Dysphagia for liquids and esophageal dysmotility. Discharge Plan: Christie will discharge back to [facility], where she is a resident. She will follow up with her provider there and her plan of care. Christie will trasnport via [facility] wheelchair van, coordinated by CM Patient/Family Education Needs: Discharge plan, limitations, Ask Me Three
--- NOTE | 2020-01-26 18:34 | INDS_ITS ---
Date of service: 01/26/20 PT Notes Visit Reasons: DYSPHAGIA FOR LIQUIDS, ESOPHAGEAL DYSMOTILITY Inpatient Physical Therapy Discharge Summary Dates: 01/26/2020 Dates of Service: 01/17/2020 through 01/21/2020 This is a clinical summary of care provided on the duration of dates listed above. No charge was made in the completion of this documentation. Referring Doctor: Clarisse Barrera MD PT Orders: PT CONSULT: Limited ability Precautions: Standard fall precautions: Patient is awaiting results of COVID-19 testing Patient Profile/Admitting Diagnosis: Patient is a 64 year old female with cognitive developmental delay presenting to ER with feeling of foreign body stuck in her throat. Was seen by ER on 01/15. She is a resident of [facility]. At lunch, she at a piece of chicken and felt as though some was stuck in her throat. 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 at [facility] on 08/25/2019 Gastric ulcer (Acute) GERD (gastroesophageal reflux disease) (Chronic) Hypertension (Chronic) Hypothyroidism (Chronic) 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 Current Functional Limitations: Patient states she uses a front wheeled walker and or wheelchair for mobility at her residence in the [facility] facility Equipment Owned/DME: Front Wheeled walker and wheelchair Subjective: NT. See most recent MASTER FIRE CONTROL TECHNICIAN notes. Objective: General Observation: NT. See most recent MASTER FIRE CONTROL TECHNICIAN notes. Mental Status: NT. See most recent MASTER FIRE CONTROL TECHNICIAN notes. Pain: NT. See most recent MASTER FIRE CONTROL TECHNICIAN notes. ROM: Right Upper Extremity: Within functional limits Left Upper Extremity: Within functional Right Lower Extremity: Within functional limit with the exception of ankle range of motion limited due to swelling. Dorsiflexion 5 degrees planter flexion 25 degrees. Left Lower Extremity: Within functional limits with the exception of ankle range of motion limited due to swelling. Dorsiflexion 5 degrees plantar and 25 degrees. Strength: Right Upper Extremity: 4/5 glenohumeral joint flexion and abduction, biceps and tricep. Good dock associate. Left Upper Extremity:/5 glenohumeral flexion and abduction, bicep and tricep. Good dock associate Right Lower Extremity: 4-/5 hip flexion, 4/5 quadricep, 4-/5 hamstring. Patient form straight leg raise with 0 degree lag. Resisted t dorsiflexion and plantar flexion 4/5. Left Lower Extremity: 4-5 hip flexion, 4/5 quadricep, 4-5 hamstring. Patient perform straight leg raise with 0 degree lag. Resisted dorsiflexion and plantarflexion 4/5. Sensation: Patient reports lack of sensation in bilateral feet. Bed Mobility/Transfers: Bed mobility: Standby assist Supine?sit: Standby assist Sit?stand: Standby assist, needs front wheeled walker Stand-sit: Standby assist, needs front wheeled walker Gait: 70 to 90 feet with contact-guard assist using a front wheeled walker. Balance: Static Sitting: Good Dynamic Sitting: Good Static Standing: Fair Dynamic Standing: Fair Assessment: Christie demonstrated meaningful functional mobility improvement during this episode of care. She will continue to require skilled physical therapy services at the SNF in a to achieve highest functional mobility level to reduce fall risk and reduce hospitalization risk. Goals: Goals X1 week 1. Supine-Sit: standby assist MET 2. Sit-Supine: stand by assist MET 3. Sit-Stand: Standby assist to front wheeled walker MET 4. Stand-Sit: Standby assist from front wheeled walker MET 5. Bed-Chair: Standby assist with use of front wheeled walker MET 6. Chair-Bed: Standby assist with use of front wheeled walker MET 7. Gait: Patient ambulating 100 feet with use of front wheeled walker and contact-guard MET DISCHARGE RECOMMENDATIONS: Recommend return to [facility] with physical therapy services to promote improved functional mobility and strength TREATMENT CODE/TIME: NC. Thank you for the opportunity to participate in the care of this patient. Rachel Hinton PT, DPT, CLT [facility] [place], [place]
== END 2020-01-21 16:00 | disposition skilled nursing facility (03) | DRG 392 ==
LOC: ER 23:30 → MS 23:36
PROVIDERS: Internal Medicine; Admitting Provider Internal Medicine; Emergency Provider Registered Nurse Emergency; PCP Family Medicine; Visit Provider Internal Medicine
DX: K22.2 Esophageal obstruction (principal); D80.3 Selective deficiency of immunoglobulin G [IgG] subclasses; I50.32 Chronic diastolic (congestive) heart failure; Z68.41 Body mass index [BMI] 40.0-44.9, adult; F20.2 Catatonic schizophrenia; K22.4 Dyskinesia of esophagus; R31.9 Hematuria, unspecified; Z66 Do not resuscitate; K74.60 Unspecified cirrhosis of liver; J45.909 Unspecified asthma, uncomplicated; Z87.11 Personal history of peptic ulcer disease; I11.0 Hypertensive heart disease with heart failure; K21.9 Gastro-esophageal reflux disease without esophagitis; E03.9 Hypothyroidism, unspecified; E66.01 Morbid (severe) obesity due to excess calories; Z11.59 Encounter for screening for other viral diseases; R06.00 Dyspnea, unspecified; G31.84 Mild cognitive impairment of uncertain or unknown etiology; R13.19 Other dysphagia
CPT/HCPCS: 36415; 74177; 80048; 80053; 80076; 87040; 93306; 96360; 96361; 97110; 97162; 97530; 99221; 99223; 99231; 99232; 99233; 99239; 99252; 99254; 99285; J1650; NC; U0003; 70360; 71045; 71046; 71260; 74018; 74221; 81003; 83605; 83735; 83880; 84132; 84443; 85025; 87086; 93970; 94640; 99284; J1644; J1940; J2060; J3480; J3490; J7613

== ENCOUNTER 2020-01-29 12:53 | Outpatient (REF) | payer MEDICARE, MEDICAID, SELFPAY ==
[2020-01-29 13:24] LABS: Anion Gap 6.9 mmol/L (3-11); BUN 9 mg/dL (7-18); CO2 34.1 mmol/L (21.0-32.0); CREATININE 0.72 mg/dL (0.55-1.02); Calcium 9.3 mg/dL (8.5-10.1); Chloride 99 mmol/L (98-107); Glucose 101 mg/dL (74-106); Potassium 3.7 mmol/L (3.5-5.1); Sodium 140 mmol/L (136-145)
== END 2020-01-29 13:13 ==
LOC: LBN 12:53
PROVIDERS: PCP Family Medicine; Visit Provider Family Medicine
DX: E87.8 Other disorders of electrolyte and fluid balance, not elsewhere classified (principal); I10 Essential (primary) hypertension; E66.9 Obesity, unspecified
CPT/HCPCS: 80048

== ENCOUNTER 2020-04-16 21:13 | Inpatient (IN) | payer MEDICARE, MEDICAID, SELFPAY ==
[2020-04-16] VITALS (30 sets, daily range): BP systolic 117–146; BP diastolic 87–97; PULSE 104–110; RESP 8–32; TEMP 37.2; O2SAT 86–98
--- NOTE | 2020-04-16 21:10 | ED.GENADUL_ITS ---
Discharge Plan Disposition Patient Disposition: [facility] Condition: Stable Discharge Details Chief Complaint: SOB Clinical Impression: Aspiration pneumonia Primary Care Provider: Ann Marie Roa ED Provider: Bg Gautam Home Meds and New Rx's Prescriptions: No Action magnesium oxide 400 mg (241.3 mg magnesium) Tablet 400 mg PO DAILY RF: 0 lisinopril 10 mg Tablet 10 mg PO DAILY RF: 0 potassium chloride [Klor-Con M10] 10 mEq tablet,ER particles/crystals 30 meq PO DAILY RF: 0 escitalopram oxalate 5 mg tablet 5 mg PO DAILY RF: 0 Calcium 600 with Vitamin D3 600 mg(1,500mg) -400 unit Tablet,Chewable 1 tab PO BID RF: 0 clonazepam 1 mg tablet 1 mg PO TID RF: 0 ferrous sulfate 325 mg (65 mg iron) Tablet 325 mg PO BID RF: 0 olanzapine 15 mg tablet 15 mg PO HS RF: 0 furosemide 20 mg tablet 60 mg PO QAM RF: 0 Floranex 100 million cell Granules In Packet 1 packet PO TID RF: 0 Refresh Plus 0.5 % dropperette 1 ea OU DAILY PRN PRN (Reason: Dry Eyes) RF: 0 omeprazole 20 mg Capsule,Delayed Release(Dr/Ec) 20 mg PO DAILY RF: 0 Tussin 100 mg/5 mL Syrup 200 mg PO Q6H PRNRF: 0 loperamide 2 mg Capsule 2 mg PO PRN PRN (Reason: Loose Stool) RF: 0 donepezil [Aricept] 10 mg Tablet 10 mg PO HS RF: 0 sumatriptan succinate 50 mg Tablet 50 mg PO PRN PRNRF: 0 methimazole 5 mg Tablet 5 mg PO DAILY RF: 0 acetaminophen 325 mg Tablet 650 mg PO TID PRN PRN (Reason: Pain) RF: 0 furosemide 40 mg tablet 40 mg PO DAILY@1400 RF: 0 amlodipine 5 mg tablet 5 mg PO DAILY RF: 0 ascorbic acid (vitamin C) [Vitamin C] 500 mg tablet 500 mg PO BID RF: 0 folic acid 1 mg tablet 1 mg PO DAILY RF: 0 imipramine HCl 25 mg tablet 25 mg PO HS RF: 0 Medical Decision Making This is a 64-year-old female who is DNR/DNI with a past medical history of CHF, schizophrenia, hypertension, hypothyroidism, who currently resides at the [facility] presents today for shortness of breath. Yesterday the patient was eating a turkey sandwich when she had a notable choking episode, since then she has been coughing and short of breath. Per [facility] facility she wa s at 88% when she was started on 4 L of oxygen which brought her up to the low 90s, she has no history of COPD. She has been coughing purulent mucus material per patient. She denies any pain in her chest. She denies any pleuritic chest pain. Temperature was 99 at the rehab facility. She denies any other complaints at this time. She does have a history of chronic venous stasis and pitting edema. This has been unchanged. No other complaints at this time. No other modifying factors. Exam demonstrates crackles and wheezes in the bases bilaterally, chronic +2 to +3 pitting edema. Oxygenation is around 93% at this time on 4 L, the patient normally is not on oxygen nor does she have a history of lung disease. Highest suspicion is for aspiration pneumonia or pneumonitis, less likely is CHF exacerbation. We will get imaging, evaluate for evidence of pneumonia, monitor closely and reassess. 11:08 PM X-ray reveals evidence of infiltrate compatible with a history of aspiration. No white count or bandemia however. Troponin normal, electrolytes stable, proBNP normal, not suggestive of acute CHF. Covid test pending. The patient actually states that she is feeling better, and having less difficulty breathing however she seems to be slightly more tachypneic at this time, and may be demonstrating some signs of respiratory fatigue. VBG was ordered and shows a pH of 7.29, PCO2 73. BiPAP has been started. 3 g of Unasyn have been administered. Discussed the case with the hospitalist Dr. Barrera, she agrees with the assessment and plan. Patient will be admitted to the ICU for further management. I have extensively reviewed the treatment plan with the patient. I have addressed all patient concerns at this time. I have also discussed the plan with the admitting physician and they agree with the current assessment and plan and have agreed to assume responsibility for the patient. All parties demonstrate verbal understanding and agreement with our assessment and plan at this time. EKG 21: 28 Rate 108, intervals normal, sinus tachycardia, no significant ST elevations or depressions, no evidence of STEMI. FINDINGS: Lungs: Patchy opacity in the left lung base appears increased. Mild generalized interstitial thickening and slight vascular congestion appearing similar. Pleural space: A small left pleural effusion is possible. No pneumothorax. Heart/Mediastinum: No cardiomegaly. Bones/joints: No acute fracture. IMPRESSION: 1. Patchy opacity in the left lung base appears increased and compatible with a history of aspiration. Mild generalized interstitial thickening and slight vascular congestion appearing similar. 2. A small left pleural effusion is possible. Thank you for allowing us to participate in the care of your patient. Dictated and Authenticated by: Jie Causey MD 04/16/2020 10:20 PM Eastern Time ([place] & [place]) HPI General Date/Time Provider Initiated Documentation: 04/16/20 21:23 . HPI Narrative: This is a 64-year-old female who is DNR/DNI with a past medical history of CHF, schizophrenia, hypertension, hypothyroidism, who currently resides at the [facility] presents today for shortness of breath. Yesterday the patient was eating a turkey sandwich when she had a notable choking episode, since then she has been coughing and short of breath. Per [facility] facility she was at 88% when she was started on 4 L of oxygen which brought her up to the low 90s, she has no history of COPD. She has been coughing purulent mucus material per patient. She denies any pain in her chest. She denies any pleuritic chest pain. Temperature was 99 at the rehab facility. She denies any other complaints at this time. She does have a history of chronic venous stasis and pitting edema. This has been unchanged. No other complaints at this time. No other modifying factors. Related Data Home Medications Medication Instructions Recorded Confirmed donepezil [Aricept] 10 mg PO HS 07/04/18 04/16/20 loperamide 2 mg PO PRN PRN 07/04/18 01/17/20 methimazole 5 mg PO DAILY 07/04/18 04/16/20 sumatriptan succinate 50 mg PO PRN PRN 07/04/18 04/16/20 acetaminophen 650 mg PO TID PRN PRN 09/30/18 04/16/20 amlodipine 5 mg PO DAILY 09/30/18 04/16/20 ascorbic acid (vitamin C) [Vitamin 500 mg PO BID 09/30/18 04/16/20 C] folic acid 1 mg PO DAILY 09/30/18 04/16/20 furosemide 40 mg PO DAILY@1400 09/30/18 04/16/20 imipramine HCl 25 mg PO HS 09/30/18 04/16/20 Calcium 600 with Vitamin D3 1 tab PO BID 01/16/20 04/16/20 clonazepam 1 mg PO TID 01/16/20 04/16/20 escitalopram oxalate 5 mg PO DAILY 01/16/20 04/16/20 lisinopril 10 mg PO DAILY 01/16/20 04/16/20 magnesium oxide 400 mg PO DAILY 01/16/20 04/16/20 potassium chloride [Klor-Con M10] 30 meq PO DAILY 01/16/20 04/16/20 Floranex 1 packet PO TID 01/17/20 04/16/20 Refresh Plus 1 ea OU DAILY PRN PRN 01/17/20 04/16/20 ferrous sulfate 325 mg PO BID 01/17/20 04/16/20 furosemide 60 mg PO QAM 01/17/20 04/16/20 olanzapine 15 mg PO HS 01/17/20 04/16/20 guaifenesin [Tussin] 200 mg PO Q6H PRN 04/16/20 04/16/20 omeprazole 20 mg PO DAILY 04/16/20 04/16/20 Allergies Allergy/AdvReac Type Severity Reaction Status Date / Time Sulfa (Sulfonamide Allergy Mild Skin Rash Verified 04/16/20 22:10 Antibiotics) General TIFFANY: 3 Review of Systems All systems reviewed & are unremarkable except as noted in HPI and below PFSH Medical History Aspiration pneumonia Asthma Catatonia associated with another mental disorder Cholestasis Chronic diastolic CHF (congestive heart failure) Cirrhosis Cognitive developmental delay Dysphagia Esophageal dysmotility [place] 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 at [facility] on 08/25/2019 Gastric ulcer GERD (gastroesophageal reflux disease) Hypertension Hypothyroidism 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 Obesity, morbid, BMI 40.0-49.9 Palliative care patient Roxi Ashley Schatzki's ring of distal esophagus Schizophrenia Urinary retention UTI (urinary tract infection) Weakness on right side of face Surgical History H/O esophagogastroduodenoscopy and endoscopic ultrasound 08/2019 at [facility] H/O oophorectomy History of bilateral tubal ligation History of hernia repair Social History Smoking/Tobacco Use Status: Never Alcohol Intake: never Drug use: Never Substance use type: does not use Household members: none Do you feel safe at home: Yes Do you feel safe in your relationship?: Yes Additional Social history: Resident @ [facility] [employer] Exam Narrative Exam Narrative: 1.Const: Well-nourished, Well-developed, appearing stated age 2.Eyes: PERRL, no conjunctival injection, and symmetrical lids. 3.ENT: Atraumatic external nose and ears. Moist MM. Neck: Symmetric, trachea midline, No thyromegaly. 4.CVS: +S1/S2, No murmurs or gallops. Peripheral pulses 2+ and equal in all ex tremities. Brisk capillary refill in all extremities. 5.RESP: Mildly labored respiratory effort, wheezes in the bases bilaterally. Mild crackles in the bases bilaterally. 6.GI: Soft, Nontender/Nondistended, No hepatosplenomegaly. No guarding or rebound. 7.MSK: Normocephalic/Atraumatic, Extremities w/o deformity or ttp No cyanosis or clubbing, Normal movement of all extremities, +3 pitting edema bilateral lower extremities, no tenderness redness or signs of cellulitis. 8.Skin: Warm, Dry. No rashes or lesions. 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 Sensation grossly intact, no focal sade rologic deficits. 10.Psych: (AAO) x3. Appropriate mood and affect
--- NOTE | 2020-04-16 21:15 | DI.RAD_ITS ---
EXAM: XR PORTABLE CHEST AP CLINICAL HISTORY: cough, SOB, aspirated turkey jocelyn yesterday TECHNIQUE: COMPARISON: CR,RF RF BARIUM SWALLOW from 01/19/2020 FINDINGS: Portable upright chest at 2200 hours. The heart is not enlarged. There are patchy opacities in the left lung base and perhaps in the right lung base to a lesser degree as well. Upper lung zones appea r clear. No gross pleural effusion on this frontal film. Findings are new since prior chest radiograph of December 2019. IMPRESSION: Left basilar opacities, suspect aspiration pneumonia considering the patient's history. RADIATION DOSE DELIVERED: Total DLP
--- NOTE | 2020-04-16 21:15 | RT.EKG_ITS ---
APPROVED REPORT Exam: Resting ECG Patient Location: E HR:108 bpm ECG Measurements Heart Rate 108 AXIS WY 161 P 63 QRSd 95 QRS 92 QT 317 T 22 QTc 427 Conclusion =EKG 21: 28 Rate 108, intervals normal, sinus tachycardia, no significant ST elevations or depressions, no eviden ce of STEMI.
[2020-04-16 21:44] LABS: Abs Immature Grans 0.04 10^3/uL (0.0-0.06); Absolute Basophil Count 0.04 10^3/uL (0.0-0.2); Absolute Eosinophil Count 0.25 10^3/uL (0.0-0.7); Absolute Lymphocyte Count 1.64 10^3/uL (1.2-3.4); Absolute Monocyte Count 0.82 10^3/uL (0.1-0.8); Basophils % 0.4; Eosinophils % 2.7; HCT 42.3 % (36.0-46.0); HGB 12.7 g/dL (11.2-15.7); Immature Grans % 0.4; Lymphocytes % 17.8; MCH 27.4 pg (27.0-33.0); MCV 91.4 fL (80-95); Monocytes % 8.9; Neutrophils % 69.8; Nucleated RBC 0 %; Platelet Count 270 10^3/uL (130-400); RBC 4.63 10^6/uL (3.93-5.22); RDW 14.4 % (11.7-14.6); RDW-SD 48.7 fL; WBC 9.19 10^3/uL (4.4-10.8)
[2020-04-16] MEDS: Albuterol/Ipratropium 3 ML UPD VIAL 6 ML UPD (22:07)
[2020-04-16 22:09] LABS: Lactate 1.2 mmol/L (0.6-1.4)
[2020-04-16 22:17] LABS: PTT Activated 26.3 sec (21.0-31.4); Prothrombin Time 9.8 sec (9.3-11.0)
--- NOTE | 2020-04-16 22:20 | DI.VRAD_ITS ---
PROCEDURE INFORMATION: Exam: XR Chest, 1 View Exam date and time: 04/16/2020 21:57 Age: 64 years old Clinical indication: Cough and shortness of breath; Patient HX: Cough, SOB; PT aspirated turkey sandwich yesterday TECHNIQUE: Imaging protocol: XR of the chest Views: 1 view. COMPARISON: XR PORTABLE CHEST AP 01/18/2020 14:16 FINDINGS: Lungs: Patchy opacity in the left lung base appears increased. Mild generalized interstitial thickening and slight vascular congestion appearing similar. Pleural space: A small left pleural effusion is possible. No pneumothorax. Heart/Mediastinum: No cardiomegaly. Bones/joints: No acute fracture. IMPRESSION: 1. Patchy opacity in the left lung base appears increased and compatible with a history of aspiration. Mild generalized interstitial thickening and slight vascular congestion appearing similar. 2. A small left pleural effusion is possible. Dictated and Authenticated by: Jie Causey MD. Ordering:SUKH Pederson MD
[2020-04-16 22:34] LABS: ALT 27 U/L (14-59); AST 17 U/L (15-37); Albumin 3.2 g/dL (3.4-5.0); Alkaline Phosphatase 111 U/L (46-116); Anion Gap 2.6 mmol/L (3-11); BUN 10 mg/dL (7-18); Bilirubin, Total 0.3 mg/dL (0.2-1.0); CO2 34.4 mmol/L (21.0-32.0); CREATININE 0.67 mg/dL (0.55-1.02); Calcium 8.9 mg/dL (8.5-10.1); Chloride 102 mmol/L (98-107); Glucose 117 mg/dL (74-106); NT-proBNP 68 pg/mL (<300); Potassium 4.1 mmol/L (3.5-5.1); Sodium 139 mmol/L (136-145); Total Protein 7.5 g/dL (6.4-8.2)
[2020-04-16 22:38] LABS: Troponin I < 0.05 ng/mL (<0.06)
[2020-04-16] MEDS: AMPICILLIN/SULBACTAM 3 GM in Normal Saline 100 ML IVPB (22:45)
[2020-04-16 22:52] LABS: BE (Venous) 8 mmol/L (-2-3); HCO3 (Venous) 35 mmol/L (23-28); O2 Sat (Venous) 84 %; TCO2 (Venous) 32 mmol/L (24-29); pH (Venous) 7.29 (7.31-7.41); pO2 (Venous) 51 mmHg
[2020-04-16 22:54] LABS: pCO2 (Venous) 73 mmHg (41-51)
--- NOTE | 2020-04-16 22:54 | NUR.NOTE ---
Nursing Note: CRITICAL VALUE TOLD TO DR LOMELI PC02 WAS 73 04/16/20
--- NOTE | 2020-04-16 23:53 | W.PM.HP.N ---
Date of service: 04/16/20 Time of Service: 23:54 Assessment and Plan Assessment and plan (1) Acute respiratory failure with hypoxia and hypercapnia: Status: Acute Assessment and plan: Due to aspiration pneumonia, present on admission. No signs of sepsis and presentation less likely to represent COVID-19, though this is being ruled out. Admit to ICU on BiPAP tonight. Treat pneumonia with zosyn. Provide scheduled and prn nebs. Will also add systemic steroids. Will recheck VBG in am. Patient is DNR/DNI. (2) Aspiration pneumonia: Status: Acute Assessment and plan: As above. Speech therapy and palliative care are consulted as this is not the first time that Christie has aspiration pneumonia. Strict aspiration precautions will need to be followed here. NPO until the patient is evaluated by speech therapy. (3) Chronic diastolic CHF (congestive heart failure): Status: Chronic Assessment and plan: pro BNP on this admission is lower than on prior admissions, but could underestimate the degree of fluid overload due to patient's obesity. BiPAP will help diurese the patient. Meanwhile, we will continue her outpatient diuretics. Monitor strict I/Os and daily weights. (4) Esophageal dysmotility: Status: Chronic Assessment and plan: As above (5) Schatzki's ring of distal esophagus: Status: Chronic Assessment and plan: As above (6) Schizophrenia: Status: Chronic Assessment and plan: If the patient is not able to tolerate her PO medications, her benzodiazepines and antipsychotics might have to be converted to injectables. The patient does have a h/o profound catatonia. (7) DVT prophylaxis: Status: Acute Assessment and plan: Lovenox (8) Discharge planning issues: Status: Acute Assessment and plan: DNR/DNI. ?need for a gastrostomy tube. Palliative and speech therapy are consulted Total Critical Care Time 60 minutes. History of Present Illness History of Present Illness Chief Complaint: shortness of breath, aspiration event at the [facility] Narrative: Ms Gardiner is a 64 year old female with PMHx of dysphagia due to esophageal dysmotility with h/o prior aspiration pneumonia, who does not at present have a gastrostomy tube, as well as chronic diastolic CHF, chronic edema, hyperthyroidism, h/o schizophrenia and catatonia, who was brought to [facility] ED by ambulance from the [facility] with shortness of breath and hypoxia to the 80s, requiring 4 L of O2 (the patient is on room air at baseline). Yesterday, there was a witnessed aspiration event at the [facility], where the patient aspiration on a turkey sandwich. It is hard to understand what the patient is saying exactly because she is on BiPAP at the time of the exam, but she states she remembers aspirating on green beans, and not the sandwich. She says she has not been choking often and that she is already feeling a lot better. Her workup in the ED revealed acute hypoxic hypercapnic respiratoy failure with pH of 7.29 and pCO2 of 73 on VBG and oxygen requirement of 4L. Her CXR is c/w LLL aspiration pneumonia and mild vascular congestion. The patient was initiated on BiPAP in the ED, and the hospitalists were asked to admit the patient to the ICU for further care. She was given unasyn in the ED. The patient had a previous admission at [facility] in December of this year for aspiration pneumonia, where her esophageal dysmotility and dysphagia were discussed with family, and at the time the patient elected not to get the gastrostomy tube, though there is a palliative care consult in our system stating that, should the patient require it in the future, she would be open to having it. She is a palliative care patient and is DNR/DNI. 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 Obesity, morbid, BMI 40.0-49.9 Palliative care patient Roxi Ramirez Schatzki's ring of distal esophagus Schizophrenia Urinary retention UTI (urinary tract infection) Weakness on right side of face Surgical History H/O esophagogastroduodenoscopy and endoscopic ultrasound 08/2019 at [facility] H/O oophorectomy History of bilateral tubal ligation History of hernia repair Social History Smoking/Tobacco Use Status: Never Alcohol Intake: never Drug use: Never Substance use type: does not use Household members: none Do you feel safe at home: Yes Do you feel safe in your relationship?: Yes Additional Social history: Resident @ [facility] Home Medications and Allergies Home Medications Medication Instructions Recorded Confirmed Type donepezil [Aricept] 10 mg PO HS 07/04/18 04/16/20 History loperamide 2 mg PO PRN PRN 07/04/18 01/17/20 History methimazole 5 mg PO DAILY 07/04/18 04/16/20 History sumatriptan succinate 50 mg PO PRN PRN 07/04/18 04/16/20 History acetaminophen 650 mg PO TID PRN PRN 09/30/18 04/16/20 History amlodipine 5 mg PO DAILY 09/30/18 04/16/20 History ascorbic acid (vitamin C) [Vitamin 500 mg PO BID 09/30/18 04/16/20 History C] folic acid 1 mg PO DAILY 09/30/18 04/16/20 History furosemide 40 mg PO DAILY@1400 09/30/18 04/16/20 History imipramine HCl 25 mg PO HS 09/30/18 04/16/20 History Calcium 600 with Vitamin D3 1 tab PO BID 01/16/20 04/16/20 History clonazepam 1 mg PO TID 01/16/20 04/16/20 History escitalopram oxalate 5 mg PO DAILY 01/16/20 04/16/20 History lisinopril 10 mg PO DAILY 01/16/20 04/16/20 History magnesium oxide 400 mg PO DAILY 01/16/20 04/16/20 History potassium chloride [Klor-Con M10] 30 meq PO DAILY 01/16/20 04/16/20 History Floranex 1 packet PO TID 01/17/20 04/16/20 History Refresh Plus 1 ea OU DAILY PRN PRN 01/17/20 04/16/20 History ferrous sulfate 325 mg PO BID 01/17/20 04/16/20 History furosemide 60 mg PO QAM 01/17/20 04/16/20 History olanzapine 15 mg PO HS 01/17/20 04/16/20 History guaifenesin [Tussin] 200 mg PO Q6H PRN 04/16/20 04/16/20 History omeprazole 20 mg PO DAILY 04/16/20 04/16/20 History Allergies Allergy/AdvReac Type Severity Reaction Status Date / Time Sulfa (Sulfonamide Allergy Mild Skin Rash Verified 04/16/20 22:10 Antibiotics) Exam Narrative Exam Narrative: General: Pleasant, obese female, A&Ox3, on BiPAP, awake, cooperative, coherent, does have increased work of breathing/retractions Neurological: A&Ox3, no focal deficits Psychiatric: Appears to be at her baseline, cooperative, but exam abbreviated due to patient being on BIPAP Skin: pale, dry, intact HEENT: Atraumatic, normocephalic, EOMI, MMM, wearing BIPAP - oropharyngeal exam deferred Cardiovascular: RRR, mildly tachycardic, low 100s, no obvious murmurs, rubs, or gallops Lungs: expiratory wheezing B on BIPAP; rectractions/increased work of breathing Gastrointestinal: soft, nontender, nondistended, RLQ mass (old) Genitourinary: deferred Extremities: 3+ BLE edema, symmetric (chronic). No clubbing/cyanosis. Results Imaging Additional studies: EKG: Sinus tach, HR 108, ? inverted T waves in lead II vs ST segment depression, no acute ischemia. No prior EKG in the system for comparison. CXR: 1. Patchy opacity in the left lung base appears increased and compatible with a history of aspiration. Mild generalized interstitial thickening and slight vascular congestion appearing similar. 2. A small left pleural effusion is possible. Labs Result diagrams: 04/16/20 21:35 04/16/20 21:35 Labs: Laboratory Results - last 24 hr 04/16/20 04/16/20 04/16/20 21:35 21:35 21:35 WBC 9.19 RBC 4.63 Hgb 12.7 Hct 42.3 MCV 91.4 MCH 27.4 MCHC 30.0 L RDW 14.4 Plt Count 270 MPV 10.0 Immature Gran % 0.4 Neutrophils % 69.8 Lymphocytes % 17.8 Monocytes % 8.9 Eosinophils % 2.7 Basophils % 0.4 Nucleated RBC % 0 Absolute Neutrophils 6.40 Absolute Lymphocytes 1.64 Absolute Monocytes 0.82 H Absolute Eosinophils 0.25 Absolute Basophils 0.04 PT INR APTT VBG pH VBG pCO2 VBG pO2 VBG HCO3 VBG Total CO2 VBG O2 Saturation VBG Base Excess VBG Lactate 1.2 Sodium 139 Potassium 4.1 Chloride 102 Carbon Dioxide 34.4 H Anion Gap 2.6 L BUN 10 Creatinine 0.67 Estimated GFR/1.73 m2 >= 60.00 Glucose 117 H Calcium 8.9 Total Bilirubin 0.3 AST 17 ALT 27 Alkaline Phosphatase 111 Troponin I < 0.05 NT-Pro-B Natriuret Pep 68 Total Protein 7.5 Albumin 3.2 L 04/16/20 04/16/20 21:35 22:45 WBC RBC Hgb Hct MCV MCH MCHC RDW Plt Count MPV Immature Gran % Neutrophils % Lymphocytes % Monocytes % Eosinophils % Basophils % Nucleated RBC % Absolute Neutrophils Absolute Lymphocytes Absolute Monocytes Absolute Eosinophils Absolute Basophils PT 9.8 INR 1.0 APTT 26.3 VBG pH 7.29 L VBG pCO2 73 H* VBG pO2 51 VBG HCO3 35 H VBG Total CO2 32 H VBG O2 Saturation 84 VBG Base Excess 8 H VBG Lactate Sodium Potassium Chloride Carbon Dioxide Anion Gap BUN Creatinine Estimated GFR/1.73 m2 Glucose Calcium Total Bilirubin AST ALT Alkaline Phosphatase Troponin I NT-Pro-B Natriuret Pep Total Protein Albumin Last Vital Signs Temp 37.2 C 04/16/20 21:13 Pulse 107 H 04/16/20 23:28 Resp 27 H 04/16/20 23:30 BP 144/97 H 04/16/20 23:16 Pulse Ox 91 L 04/16/20 23:30 COVID-19 Screening Have you,or household,traveled outside [place] in last 14 days?: No Had IN PERSON contact w/suspected or confirmed C-19 person: No
[2020-04-17] VITALS (36 sets, daily range): BP systolic 114–135; BP diastolic 73–87; PULSE 80–114; RESP 8–29; TEMP 36–37.8; O2SAT 87–99
[2020-04-17 00:49] LABS: Troponin I < 0.05 ng/mL (<0.06)
[2020-04-17] MEDS: ACETAMINOPHEN 1,000 MG/100 ML BTL 400 MG IVPB (01:02)
[2020-04-17] MEDS: methylPREDNISolone SUCC 125 MG VIAL 60 MG IVP ×2 (01:02→12:43)
[2020-04-17] MEDS: PIPERACILLIN/TAZO 3.375 GM in Normal Saline 50 ML IVPB ×4 (01:03→18:07)
[2020-04-17] MEDS: Albuterol/Ipratropium 3 ML UPD VIAL UPD ×3 (06:38→18:22)
[2020-04-17 07:16] LABS: BE (Venous) 6 mmol/L (-2-3); HCO3 (Venous) 32 mmol/L (23-28); O2 Sat (Venous) 99 %; TCO2 (Venous) 29 mmol/L (24-29); pCO2 (Venous) 59 mmHg (41-51); pH (Venous) 7.34 (7.31-7.41); pO2 (Venous) 119 mmHg
[2020-04-17 07:18] LABS: Abs Immature Grans 0.13 10^3/uL (0.0-0.06); Absolute Basophil Count 0.04 10^3/uL (0.0-0.2); Absolute Eosinophil Count 0.11 10^3/uL (0.0-0.7); Basophils % 0.2; Eosinophils % 0.5; HCT 44.5 % (36.0-46.0); HGB 13.5 g/dL (11.2-15.7); Immature Grans % 0.6; Lymphocytes % 3.7; MCH 27.5 pg (27.0-33.0); MCHC 30.3 % (32.0-36.0); MCV 90.6 fL (80-95); MPV 10.2 fL (8.0-11.0); Monocytes % 3.3; Neutrophils % 91.7; Nucleated RBC 0 %; Platelet Count 232 10^3/uL (130-400); RBC 4.91 10^6/uL (3.93-5.22); RDW 14.3 % (11.7-14.6); RDW-SD 47.8 fL; WBC 21.74 10^3/uL (4.4-10.8)
[2020-04-17 07:25] LABS: Absolute Monocyte Count 0.72 10^3/uL (0.1-0.8); Absolute Neutrophil Count 19.94 10^3/uL (1.2-6.7)
[2020-04-17 07:35] LABS: Anion Gap 4.8 mmol/L (3-11); BUN 12 mg/dL (7-18); CO2 33.2 mmol/L (21.0-32.0); CREATININE 0.75 mg/dL (0.55-1.02); Calcium 8.7 mg/dL (8.5-10.1); Chloride 103 mmol/L (98-107); Glucose 168 mg/dL (74-106); Potassium 4.4 mmol/L (3.5-5.1); Sodium 141 mmol/L (136-145)
--- NOTE | 2020-04-17 09:04 | W.PM.PROGNOT ---
Date of Service Date of service: 04/17/20 Time of Service: 09:04 Assessment and Plan Assessment and plan (1) Acute respiratory failure with hypoxia and hypercapnia: Status: Acute Assessment and plan: Presented with hypoxia and placed on BiPAP Now on 1L NC. Treating aspiration PNA (2) Aspiration pneumonia: Status: Acute Assessment and plan: Patchy opacity of left lung base on CXR. Recurrent aspiration PNA + dysphagia. Cont Zosyn and steroid. Change to po prednisone for short burst in AM Speech evaluation ordered. Would likely benefit from video swallow; would have to arrange this through another facility. Qualifiers: Laterality: left (3) Chronic diastolic CHF (congestive heart failure): Status: Chronic Assessment and plan: Cont home Lasix dosing. (4) Dysphagia: Status: Acute Assessment and plan: See aspiration PNA Eats a soft diet. Qualifiers: Dysphagia type: esophageal phase Qualified Code(s): R13.10 - Dysphagia, unspecified Subjective Subjective Patient reports: feels better and afebrile; denies nausea, vomiting and shortness of breath Interval history since last seen: Pt taken off BiPAP this am. Up in chair and feels much better. No CP, palpitations. No cough/sputum Exam Const General: cooperative and no acute distress Nutritional Appearance: obese Orientation: alert, oriented to person and oriented to place Eyes Sclera: sclerae normal EOM: EOM intact bilaterally Resp Effort & Inspection: normal respiratory effort Auscultation: crackles on the left in the lower lung reynaga, diminished lung sounds and wheezes scattered wheezes Cardio Rate: regular rate Rhythm: regular rhythm Heart Sounds: S1 normal and S2 normal GI Palpation: soft and nontender Auscultation: normal bowel sounds Skin General skin exam: no rashes or lesions noted Extrem General: no calf tenderness and edema Laterality: bilateral Psych Appearance: grossly normal Speech and Movement: speech and movement normal Affect: normal affect Attitude: cooperative Objective Last Vital Signs Temp 37.6 C H 04/17/20 04:10 Pulse 85 04/17/20 08:05 Resp 19 04/17/20 08:05 BP 126/75 04/17/20 05:01 Pulse Ox 95 04/17/20 08:05 Laboratory Results - last 24 hr 04/16/20 04/16/20 04/16/20 21:35 21:35 21:35 WBC 9.19 RBC 4.63 Hgb 12.7 Hct 42.3 MCV 91.4 MCH 27.4 MCHC 30.0 L RDW 14.4 Plt Count 270 MPV 10.0 Immature Gran % 0.4 Neutrophils % 69.8 Lymphocytes % 17.8 Monocytes % 8.9 Eosinophils % 2.7 Basophils % 0.4 Nucleated RBC % 0 Absolute Neutrophils 6.40 Absolute Lymphocytes 1.64 Absolute Monocytes 0.82 H Absolute Eosinophils 0.25 Absolute Basophils 0.04 PT INR APTT VBG pH VBG pCO2 VBG pO2 VBG HCO3 VBG Total CO2 VBG O2 Saturation VBG Base Excess VBG Lactate 1.2 Sodium 139 Potassium 4.1 Chloride 102 Carbon Dioxide 34.4 H Anion Gap 2.6 L BUN 10 Creatinine 0.67 Estimated GFR/1.73 m2 >= 60.00 Glucose 117 H Calcium 8.9 Magnesium Total Bilirubin 0.3 AST 17 ALT 27 Alkaline Phosphatase 111 Troponin I < 0.05 NT-Pro-B Natriuret Pep 68 Total Protein 7.5 Albumin 3.2 L TSH 04/16/20 04/16/20 04/17/20 21:35 22:45 00:25 WBC RBC Hgb Hct MCV MCH MCHC RDW Plt Count MPV Immature Gran % Neutrophils % Lymphocytes % Monocytes % Eosinophils % Basophils % Nucleated RBC % Absolute Neutrophils Absolute Lymphocytes Absolute Monocytes Absolute Eosinophils Absolute Basophils PT 9.8 INR 1.0 APTT 26.3 VBG pH 7.29 L VBG pCO2 73 H* VBG pO2 51 VBG HCO3 35 H VBG Total CO2 32 H VBG O2 Saturation 84 VBG Base Excess 8 H VBG Lactate Sodium Potassium Chloride Carbon Dioxide Anion Gap BUN Creatinine Estimated GFR/1.73 m2 Glucose Calcium Magnesium Total Bilirubin AST ALT Alkaline Phosphatase Troponin I < 0.05 NT-Pro-B Natriuret Pep Total Protein Albumin TSH 04/17/20 04/17/20 04/17/20 06:45 06:45 06:45 WBC 21.74 H D RBC 4.91 Hgb 13.5 Hct 44.5 MCV 90.6 MCH 27.5 MCHC 30.3 L RDW 14.3 Plt Count 232 MPV 10.2 Immature Gran % 0.6 Neutrophils % 91.7 Lymphocytes % 3.7 Monocytes % 3.3 Eosinophils % 0.5 Basophils % 0.2 Nucleated RBC % 0 Absolute Neutrophils 19.94 H Absolute Lymphocytes 0.80 L Absolute Monocytes 0.72 Absolute Eosinophils 0.11 Absolute Basophils 0.04 PT INR APTT VBG pH VBG pCO2 VBG pO2 VBG HCO3 VBG Total CO2 VBG O2 Saturation VBG Base Excess VBG Lactate Sodium 141 Potassium 4.4 Chloride 103 Carbon Dioxide 33.2 H Anion Gap 4.8 BUN 12 Creatinine 0.75 Estimated GFR/1.73 m2 >= 60.00 Glucose 168 H Calcium 8.7 Magnesium 2.0 Total Bilirubin AST ALT Alkaline Phosphatase Troponin I NT-Pro-B Natriuret Pep Total Protein Albumin TSH 0.80 04/17/20 06:45 WBC RBC Hgb Hct MCV MCH MCHC RDW Plt Count MPV Immature Gran % Neutrophils % Lymphocytes % Monocytes % Eosinophils % Basophils % Nucleated RBC % Absolute Neutrophils Absolute Lymphocytes Absolute Monocytes Absolute Eosinophils Absolute Basophils PT INR APTT VBG pH 7.34 VBG pCO2 59 H VBG pO2 119 VBG HCO3 32 H VBG Total CO2 29 VBG O2 Saturation 99 VBG Base Excess 6 H VBG Lactate Sodium Potassium Chloride Carbon Dioxide Anion Gap BUN Creatinine Estimated GFR/1.73 m2 Glucose Calcium Magnesium Total Bilirubin AST ALT Alkaline Phosphatase Troponin I NT-Pro-B Natriuret Pep Total Protein Albumin TSH
[2020-04-17] MEDS: Pantoprazole 40 MG VIAL IVP (09:30)
[2020-04-17] MEDS: Calcium 600mg/Vit D 200U TAB 1 TAB PO ×2 (09:45→20:08)
[2020-04-17] MEDS: amLODIPine 5 MG TAB PO (09:45)
[2020-04-17] MEDS: Lisinopril 10 MG TAB PO (09:45)
[2020-04-17] MEDS: Furosemide 20 MG TAB 60 MG PO (09:45)
[2020-04-17] MEDS: Ferrous Sulfate 325 MG TAB PO ×2 (09:46→20:08)
[2020-04-17] MEDS: Magnesium Oxide 400 MG TAB PO (09:46)
[2020-04-17] MEDS: Omeprazole 20 MG CAPCR PO (09:46)
[2020-04-17] MEDS: Folic Acid 1 MG TAB PO (09:46)
[2020-04-17] MEDS: Ascorbic Acid 500 MG TAB PO ×2 (09:47→20:08)
[2020-04-17] MEDS: Potassium Chloride 10 MEQ TABCR 30 MEQ PO (09:47)
[2020-04-17] MEDS: methIMAzole 5 MG TAB PO (09:48)
[2020-04-17] MEDS: Enoxaparin 40 MG/0.4 ML SYR SC (09:48)
[2020-04-17] MEDS: clonazePAM 1 MG TAB PO ×3 (09:48→20:08)
[2020-04-17] MEDS: Escitalopram 10 MG TAB 5 MG PO (09:49)
[2020-04-17] MEDS: Normal Saline Flush 10 ML SYR IVP ×2 (09:50→12:45)
--- NOTE | 2020-04-17 10:51 | PHA.REVIEW ---
Pharmacy Admission Review - Admission Clinical Review (Last Reviewed 04/16/20 @ 21:37 by Bg Gautam DO) Discharge planning issues (Acute) Acute respiratory failure with hypoxia and hypercapnia (Acute) Aspiration pneumonia (Acute) Dysphagia (Acute) DVT prophylaxis (Acute) Sulfa (Sulfonamide Antibiotics) Allergy (Mild, Verified 04/16/20 22:10) Skin Rash Height 5 ft 6 in Weight 126.4 kg - Renal Dosing Renal Dosing: BUN 12 mg/dL (7-18) 04/17/20 06:45 Creatinine 0.75 mg/dL (0.55-1.02) 04/17/20 06:45 Medications needing adjustments: Reviewed (CRCL ~67ML/MIN) - Anticoagulation Anticoagulation: Hgb 13.5 g/dL (11.2-15.7) 04/17/20 06:45 Hct 44.5 % (36.0-46.0) 04/17/20 06:45 Plt Count 232 10^3/uL (130-400) 04/17/20 06:45 INR 1.0 (0.9-1.1) 04/16/20 21:35 Creatinine 0.75 mg/dL (0.55-1.02) 04/17/20 06:45 DVT Prohphylaxis: Reviewed Medications: Enoxaparin Therapeutic Anticoagulation: N/A - Relevant Labs Sodium 141 mmol/L (136-145) 04/17/20 06:45 Potassium 4.4 mmol/L (3.5-5.1) 04/17/20 06:45 Chloride 103 mmol/L (98-107) 04/17/20 06:45 Magnesium 2.0 mg/dL (1.8-2.4) 04/17/20 06:45 Electrolytes, C-Reactive P, ESR: Reviewed - DM Control DM Control: Glucose 168 mg/dL (74-106) H 04/17/20 06:45 - Heart Failure/UT Heart Failure/UT: Troponin I < 0.05 ng/mL (<0.06) 04/17/20 00:25 NT-Pro-B Natriuret Pep 68 pg/mL (<300) 04/16/20 21:35 - BP Control BP Control: Blood Pressure 125/76 Blood Pressure 125/76 Blood Pressure 134/87 Blood Pressure 126/74 Blood Pressure 126/75 Blood Pressure 129/77 Blood Pressure 135/81 Blood Pressure 134/84 Blood Pressure 146/97 Blood Pressure 144/97 Blood Pressure 139/94 - Qtc Review If Elevated: Reviewed (427) - Home Meds Home Med List reviewed: Reviewed (omeprazole ordered instead of famotidine. no med list from the [facility] in pt chart) - Current meds Current Medication Order Review: Reviewed - Comments Comments/Follow Ups: palliative care patient from The [facility]. speech consult ordered. on BiPap
--- NOTE | 2020-04-17 11:13 | PT.INIE ---
PT Notes Visit Reasons: ASPIRATION PNEUMONIA,ACUTE HYPOXIC HYPERCAPNIC RES Inpatient Physical Therapy Evaluation Date: 04/17/2020 Referring Doctor: Clarisse Barrera MD PT Orders: PT CONSULT: Limited ability Precautions: Falls Patient Profile/Admitting Diagnosis: 64-year-old female admitted yesterday with pneumonia PMHX: Refer to her primary care's medication list Social History/Home Situation: Been a resident of the [facility] for the past year Current Functional Limitations: Requires some assistance with assuming the supine to sitting positions and vice versa. States that she has been ambulating at the senior living with a wheeled walker. 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 Her lower extremity strength is 3/5 Neuro: Hyporeflexive, sensations intact to light touch Bed Mobility/Transfers: Requires minimal assistance with lower extremities when assuming a supine sitting positions and vice versa Gait: Ambulated 30 feet with a wheeled walker and minimal contact guarding with a stable gait Balance: [] Static Sitting: Good Dynamic Sitting: Good Static Standing: Good Dynamic Standing: Fair Special Tests: Mobility Limitations Standardized Measure [facility] AM-PAC 6 clicks Basic Mobility Inpatient Short Form: Raw Score: 16 standardized Score: 40.78 CMS Score: 54.16% Informed Consent/Education: Patient instructed in purpose of PT consult and plan of care. Assessment: Patient is a 64 year old female referred to physical therapy services with the diagnosis of pneumonia. Patient presents with clinical signs and symptoms consistent with diagnosis, as demonstrated by the following impairment level findings: Minimal assistance with her bed mobility with a stable gait.. Impairments are contributing to the following functional limitations: AMPAC score. Patient is assessed as a [] Moderate [id number] complexity based on the following: History: See comorbidities and social history Examination: See above for functional imitations impairments Presentation: Evolving Decision Making: Moderate complexity based on her clinical findings Goals: Plan of Care/Treatment Plan: Patient's functional status and gait is comparable to preadmission according the patient. Discussion with nursing staff notes that the have time to ambulate the patient to maintain her function and strength. Therefore, she is not a candidate for physical therapy. TREATMENT CODE/TIME: 9716
--- NOTE | 2020-04-17 11:34 | PDOC.CMIN ---
- If Service Date Differs Date of service: 04/17/20 Time of Service: 11:34 Care Management Initial Assess REASON FOR HOSPITALIZATION:: Aspiration pneumonia PAST MEDICAL HISTORY/PAST SURGICAL HISTORY:: Medical History. Aspiration pneumonia. Asthma. Catatonia associated with another mental disorder. Cholestasis. Chronic diastolic CHF (congestive heart failure). Cirrhosis. Cognitive developmental delay. Dysphagia. Esophageal dysmotility. Falls. 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 Gastric ulcer. GERD (gastroesophageal reflux disease). Hypertension. Hypothyroidism. 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 Obesity, morbid, BMI 40.0-49.9. Palliative care patient. Roxi Millerertin. Schatzki's ring of distal esophagus. Schizophrenia. Urinary retention. UTI (urinary tract infection). Weakness on right side of face. Surgical History. H/O esophagogastroduodenoscopy. and endoscopic ultrasound 08/2019 at [facility]. H/O oophorectomy. History of bilateral tubal ligation. History of hernia repair PREVIOUS FUNCTIONAL STATUS/SOCIAL/FAMILY SUPPORTS:: Christie lives at the [facility] currently, and stated that she has been there for about a year (Jul 2018). She stated that she enjoys her time at the [facility], and is happy to be there. She reported that she could not recall much about her past. She stated that she has family in [place], [place]. Per chart review, she has support from her siblings Tiny Chadwick and Cedric. She is disabled at baseline and requires assistance with her ADL's. CURRENT FUNCTIONAL STATUS:: Christie was sitting up in her chair when CM met with her. She reported that she is feeling much better today. She stated that she likes living at the [facility], and looks forward to returning. CM will continue to follow. ADVANCE DIRECTIVES:: [facility]ST on file; Casie Herrera (sister) is DPOA. Has patient been provided with info about the portal/API?: Yes Did the patient sign up for the portal?: No CODE STATUS:: DNR/DNI INSURANCE COVERAGE / FINANCIAL ISSUES:: MCR/ [employer] CURRENT HOME/COMMUNITY SERVICES/EQUIPMENT:: Palliative care, w/c, FWW. Christie receives all of her care living at [facility]. PRIMARY CARE PHYSICIAN:: Listed as Ann Marie Roa in chart. Sister, Netta, advises Dr. Salas at the [facility] is Christie's PCP. POTENTIAL DISCHARGE NEEDS:: Follow up appointments PATIENT/FAMILY EDUCATION NEEDS:: Review discharge instructions regarding activity levels and medications, discussion of self care needs and goals of care. ANTICIPATED BARRIERS TO DISCHARGE:: None identified. TRANSPORTATION:: Via [employer] w/c van PLAN:: Anticipate Christie will return to the [facility] once medically cleared. CM will coordinate transportation, likely via [facility] w/c van. She will follow up with her PCP and discharge plan of care. CM will continue to follow.
[2020-04-17 13:29] LABS: COVID-19 RT-PCR UVMMC Result Negative (Negative)
[2020-04-17] MEDS: Furosemide 40 MG TAB PO (14:06)
[2020-04-17] MEDS: Normal Saline 500 ML 30 ML IV (18:11)
[2020-04-17] MEDS: OLANZapine 5 MG TAB 15 MG PO (21:17)
[2020-04-17] MEDS: Donepezil 5 MG TAB 10 MG PO (21:18)
[2020-04-18] MEDS: PIPERACILLIN/TAZO 3.375 GM in Normal Saline 50 ML IVPB ×2 (00:14→06:19)
[2020-04-18] MEDS: Albuterol/Ipratropium 3 ML UPD VIAL UPD (06:20)
[2020-04-18 06:56] LABS: Absolute Basophil Count 0.02 10^3/uL (0.0-0.2); Basophils % 0.1; HCT 38.8 % (36.0-46.0); HGB 11.8 g/dL (11.2-15.7); Immature Grans % 0.6; Lymphocytes % 8.3; MCH 27.4 pg (27.0-33.0); MCHC 30.4 % (32.0-36.0); MPV 10.8 fL (8.0-11.0); Monocytes % 5.3; Neutrophils % 85.7; Nucleated RBC 0 %; Platelet Count 268 10^3/uL (130-400); RBC 4.31 10^6/uL (3.93-5.22); RDW 14.2 % (11.7-14.6); RDW-SD 47.5 fL; WBC 17.89 10^3/uL (4.4-10.8)
[2020-04-18 07:04] LABS: Absolute Lymphocyte Count 1.48 10^3/uL (1.2-3.4); Absolute Monocyte Count 0.95 10^3/uL (0.1-0.8); Absolute Neutrophil Count 15.33 10^3/uL (1.2-6.7)
[2020-04-18 07:10] LABS: Anion Gap 4.7 mmol/L (3-11); BUN 15 mg/dL (7-18); CO2 34.3 mmol/L (21.0-32.0); CREATININE 0.76 mg/dL (0.55-1.02); Calcium 8.9 mg/dL (8.5-10.1); Chloride 96 mmol/L (98-107); Glucose 111 mg/dL (74-106); Potassium 4.4 mmol/L (3.5-5.1); Sodium 135 mmol/L (136-145)
--- NOTE | 2020-04-18 07:54 | PCNE_ITS ---
Date of service: 04/18/20 Time of Service: 07:54 History of Present Illness History of Present Illness Chief Complaint: Aspiration pneumonia Narrative: Christie is a 64-year-old woman who has schizophrenia and multifactorial difficulties with eating. She has had a food tube in the past. She had another episode of aspiration pneumonia and was brought into [facility]. She was obtunded at the time. Over the last 24 hours she has cleared considerably. She said she had fish last night for dinner and that she is feeling good. She remains on IV antibiotics Consults Consult date: 04/18/20 Requesting physician: Clarisse Barrera Assessment and Plan Assessment and plan (1) Acute respiratory failure with hypoxia and hypercapnia: Status: Acute (2) Aspiration pneumonia: Status: Acute Qualifiers: Laterality: left (3) Schatzki's ring of distal esophagus: Status: Chronic (4) Obesity, morbid, BMI 40.0-49.9: Status: Acute (5) Palliative care patient: Status: Acute Assessment and plan: 64-year-old woman with multiple factors influencing her swallowing. She has had another bout of aspiration pneumonia. Her white count is improving. She is able to eat again. She is anxious to get back to the [facility]. Although we have spoken about this on multiple admissions regarding a feeding tube she understands the risks and prefers to eat by mouth knowing that at times she may aspirate. Hopefully if she stabilizes over the next 24 hours she will be able to go home on p.o. medication. Thank you very much for this consult Review of Systems Narrative: Christie looks good, she is her usual smiley self. She states that she has no pain in her chest, no shortness of breath, no difficulty with eating. 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 Obesity, morbid, BMI 40.0-49.9 Palliative care patient Roxi Ramirez Schatzki's ring of distal esophagus Schizophrenia Urinary retention UTI (urinary tract infection) Weakness on right side of face Surgical History H/O esophagogastroduodenoscopy and endoscopic ultrasound 08/2019 at [facility] H/O oophorectomy History of bilateral tubal ligation History of hernia repair Social History Smoking/Tobacco Use Status: Never Alcohol Intake: never Drug use: Never Substance use type: does not use Household members: none Do you feel safe at home: Yes Do you feel safe in your relationship?: Yes Additional Social history: Resident @ [facility] [employer] Exam Narrative Exam Narrative: Christie smiles at me and says gifty Ramirez. She remembers the events of the last few days. She states that she is now able to eat and demonstrate swallowing for me Her heart is regular and rate controlled. Her lungs there are some areas that have some rales especially on the left side. Her abdomen is soft nontender. Results Last Vital Signs Temp 98.2 F 04/17/20 15:51 Pulse 95 H 04/17/20 18:23 Resp 20 04/17/20 18:23 BP 114/73 04/17/20 15:51 Pulse Ox 99 04/17/20 18:23 Exam(s) a RAD:XR portable chest AP EXAM: XR PORTABLE CHEST AP CLINICAL HISTORY: cough, SOB, aspirated turkey jocelyn yesterday TECHNIQUE: COMPARISON: CR,RF RF BARIUM SWALLOW from 01/19/2020 FINDINGS: Portable upright chest at 2200 hours. The heart is not enlarged. There are patchy opacities in the left lung base and perhaps in the right lung base to a lesser degree as well. Upper lung zones appear clear. No gross pleural effusion on this frontal film. Findings are new since prior chest radiograph of December 2019. IMPRESSION: Left basilar opacities, suspect aspiration pneumonia considering the patient's history. Labs Result diagrams: 04/18/20 06:08 04/18/20 06:08 Labs: Laboratory Results - last 24 hr 04/16/20 04/18/20 04/18/20 21:35 06:08 06:08 WBC 17.89 H RBC 4.31 Hgb 11.8 Hct 38.8 MCV 90.0 MCH 27.4 MCHC 30.4 L RDW 14.2 Plt Count 268 MPV 10.8 Immature Gran % 0.6 Neutrophils % 85.7 Lymphocytes % 8.3 Monocytes % 5.3 Eosinophils % 0.0 Basophils % 0.1 Nucleated RBC % 0 Absolute Neutrophils 15.33 H Absolute Lymphocytes 1.48 Absolute Monocytes 0.95 H Absolute Eosinophils 0.00 Absolute Basophils 0.02 Sodium 135 L Potassium 4.4 Chloride 96 L Carbon Dioxide 34.3 H Anion Gap 4.7 BUN 15 Creatinine 0.76 Estimated GFR/1.73 m2 >= 60.00 Glucose 111 H Calcium 8.9 COVID-19 PCR Negative Nasopharyn COVID-19 PCR Not Applicable Ref Test Perform Site [place] [facility]
[2020-04-18] MEDS: Pantoprazole 40 MG VIAL IVP (08:16)
[2020-04-18] MEDS: Potassium Chloride 10 MEQ TABCR 30 MEQ PO (08:17)
[2020-04-18] MEDS: predniSONE 10 MG TAB 30 MG PO (08:17)
[2020-04-18] MEDS: Normal Saline Flush 10 ML SYR IVP (08:17)
[2020-04-18] MEDS: Folic Acid 1 MG TAB PO (08:18)
[2020-04-18] MEDS: Lisinopril 10 MG TAB PO (08:18)
[2020-04-18] MEDS: Ferrous Sulfate 325 MG TAB PO (08:18)
[2020-04-18] MEDS: Omeprazole 20 MG CAPCR PO (08:18)
[2020-04-18] MEDS: Furosemide 20 MG TAB 60 MG PO (08:18)
[2020-04-18] MEDS: Calcium 600mg/Vit D 200U TAB 1 TAB PO (08:18)
[2020-04-18] MEDS: Ascorbic Acid 500 MG TAB PO (08:18)
[2020-04-18] MEDS: amLODIPine 5 MG TAB PO (08:18)
[2020-04-18] MEDS: Escitalopram 10 MG TAB 5 MG PO (08:19)
[2020-04-18] MEDS: Magnesium Oxide 400 MG TAB PO (08:19)
[2020-04-18] MEDS: methIMAzole 5 MG TAB PO (08:19)
[2020-04-18] MEDS: clonazePAM 1 MG TAB PO (08:19)
[2020-04-18] MEDS: Enoxaparin 40 MG/0.4 ML SYR SC (08:20)
--- NOTE | 2020-04-18 09:22 | PDOC.CMDIS ---
LACE Index Scoring Tool - Questions: Length of Stay (in days): 2 Acuity (Admit via E.D.?): Yes Comorbidities: Congestive Heart Failure E.D. Visits: 2 - Answers: Total Score: 9 Risk of Readmission: Low Risk Care Management Discharge Reason for Hospitalization: Aspiration pneumonia Discharge Plan: Christie will return to [facility] when ready per MD. She will transport via private vehicle with [facility]. CM completed paperwork and notified internal and external team. Patient/Family Education Needs: Review discharge instructions, discuss Ask Me Three. Services Needed at Discharge: Jail Facility ([facility] return. ), Transportation ([facility])
--- NOTE | 2020-04-18 09:24 | DSE_ITS ---
Date of service: 04/18/20 Time of Service: 09:24 DS: Diagnosis Discharge Diagnosis (1) Acute respiratory failure with hypoxia and hypercapnia: Status: Acute (2) Aspiration pneumonia: Status: Acute (3) Schatzki's ring of distal esophagus: Status: Chronic (4) Obesity, morbid, BMI 40.0-49.9: Status: Acute (5) Palliative care patient: Status: Acute Discharge Plan Disposition Patient Disposition: [facility] ([facility]) [facility] Condition: Good Discharge Details Reason For Visit: ASPIRATION PNEUMONIA,ACUTE HYPOXIC HYPERCAPNIC RES Admit Date/Time: 04/16/20 22:57 Admit Provider: Clarisse Barrera Attending Provider: Clarisse Barrera Primary Care Provider: Ann Marie Roa Hospital Course Hospital Course: Ms Gardiner is a 64 year old female with PMHx of dysphagia due to esophageal dysmotility with h/o prior aspiration pneumonia, who does not at present have a gastrostomy tube, as well as chronic diastolic CHF, chronic edema, hyperthyroidism, h/o schizophrenia and catatonia, who was brought to [facility] ED by ambulance from the [facility] with shortness of breath and hypoxia to the 80s, requiring 4 L of O2 (the patient is on room air at baseline). Yesterday, there was a witnessed aspiration event at the [facility], where the patient aspiration on a turkey sandwich. Pt then stated she choked on green beans. She required BiPAP initially to maintain O2 saturations w/o CO2 retention. Her workup in the ED revealed acute hypoxic hypercapnic respiratoy failure with pH of 7.29 and pCO2 of 73 on VBG and oxygen requirement of 4L. Her CXR was c/w LLL aspiration pneumonia and mild vascular congestion. She was given unasyn in the ED. The patient had a previous admission at [facility] in December of this year for aspiration pneumonia, where her esophageal dysmotility and dysphagia were discussed with family, and at the time the patient elected not to get the gastrostomy tube, though there is a palliative care consult in our system stating that, should the patient require it in the future, she would be open to having it. She is a palliative care patient and is DNR/DNI. Palliative physician did consult during this hospitalization. The morning after admission she was weaned off supplemental O2 and ambulated in her room. She was initially placed on IV steroids for pneumonitis from the aspiration event. Steroid coverage changed to oral prednisone then d/c'd upon d/c. Antibiotic coverage changed to Augmentin 875mg BID for 7 days at time of D/C. Her PCP informed us that she has a GI appoinment with Dr. Clinton on 05/03/2020. She also endorsed that Christie does not eat unsupervised but does sometimes eat rapidly. She eats a soft diet and is encouraged by staff at her facility to chew well and eat slowly. Home Meds and New Rx's Prescriptions: New amoxicillin-pot clavulanate [Augmentin] 875-125 mg tablet 1 tab PO BID Qty: 14 RF: 0 Continued magnesium oxide 400 mg (241.3 mg magnesium) Tablet 400 mg PO DAILY RF: 0 lisinopril 10 mg Tablet 10 mg PO DAILY RF: 0 potassium chloride [Klor-Con M10] 10 mEq tablet,ER particles/crystals 30 meq PO DAILY RF: 0 escitalopram oxalate 5 mg tablet 5 mg PO DAILY RF: 0 Calcium 600 with Vitamin D3 600 mg(1,500mg) -400 unit Tablet,Chewable 1 tab PO BID RF: 0 clonazepam 1 mg tablet 1 mg PO TID RF: 0 ferrous sulfate 325 mg (65 mg iron) Tablet 325 mg PO BID RF: 0 olanzapine 15 mg tablet 15 mg PO HS RF: 0 furosemide 20 mg tablet 60 mg PO QAM RF: 0 Floranex 100 million cell Granules In Packet 1 packet PO TID RF: 0 Refresh Plus 0.5 % dropperette 1 ea OU DAILY PRN PRN (Reason: Dry Eyes) RF: 0 omeprazole 20 mg Capsule,Delayed Release(Dr/Ec) 20 mg PO DAILY RF: 0 guaifenesin 100 mg/5 mL Syrup 200 mg PO Q6H PRNRF: 0 loperamide 2 mg Capsule 2 mg PO PRN PRN (Reason: Loose Stool) RF: 0 donepezil [Aricept] 10 mg Tablet 10 mg PO HS RF: 0 sumatriptan succinate 50 mg Tablet 50 mg PO PRN PRNRF: 0 methimazole 5 mg Tablet 5 mg PO DAILY RF: 0 acetaminophen 325 mg Tablet 650 mg PO TID PRN PRN (Reason: Pain) RF: 0 furosemide 40 mg tablet 40 mg PO DAILY@1400 RF: 0 amlodipine 5 mg tablet 5 mg PO DAILY RF: 0 ascorbic acid (vitamin C) [Vitamin C] 500 mg tablet 500 mg PO BID RF: 0 folic acid 1 mg tablet 1 mg PO DAILY RF: 0 imipramine HCl 25 mg tablet 25 mg PO HS RF: 0 Discharge Instructions Instructions: Aspiration Precautions (GEN) Activity:: Activity as Tolerated Equipment/Supplies:: No Equipment Needed Diet:: soft mechanical Discharge Orders Discharge Orders: Discharge Order (Routine); Ordered 04/18/20 Ordered By: Shawn Jaffe DS: Summary Status at Discharge Functional status at discharge: independent ambulation Overall status at discharge: patient is back to baseline Mental Status: other (development delay.) Speech and Movement: speech and movement normal Mood: congruent mood and other (development delay.) Affect: normal affect Exam Const General: cooperative and no acute distress Nutritional Appearance: obese Orientation: oriented to person Resp Effort & Inspection: normal respiratory effort Auscultation: clear to auscultation bilaterally and diminished lung sounds Cardio Jugular venous pressure: no JVD Rate: regular rate Rhythm: regular rhythm Heart Sounds: S1 normal and S2 normal GI Palpation: soft and nontender Auscultation: normal bowel sounds Extrem General: no calf tenderness and edema Laterality: bilateral (2+) Psych Appearance: grossly normal Mental Status: other (development delay.) Speech and Movement: speech and movement normal Mood: congruent mood and other (development delay.) Affect: normal affect Attitude: cooperative Insight: poor DS: Data Vitals/I&O Vitals and I&O: Vital Signs Temperature 36.8 C 04/17/20 15:51 Temperature Source Tympanic 04/17/20 15:51 Pulse 95 H 04/17/20 18:23 Pulse Rhythm Regular 04/18/20 00:05 Pulse 98 H 04/17/20 13:00 Respiratory Rate 20 04/17/20 18:23 Respiratory Effort Non-Labored 04/18/20 00:05 Respiratory Depth Normal 04/18/20 00:05 Respiratory Pattern Normal 04/18/20 00:05 Blood Pressure 114/73 04/17/20 15:51 Blood Pressure Mean 86 04/17/20 09:24 Blood Pressure Position Sitting 04/16/20 21:13 Pulse Oximetry 99 04/17/20 18:23 Oxygen Delivery Method Room Air 04/17/20 18:22 Oxygen Flow Rate 0 04/17/20 18:22 Fraction of Inspired Oxygen (FIO2) 40 04/17/20 08:05 Pain Level 0 04/17/20 15:51 Intake & Output 04/17/20 04/17/20 04/18/20 11:59 23:59 11:59 Intake Total 297 / 974 677 / 974 110 / 110 Output Total 600 / 600 Balance -303 / 374 677 / 374 110 / 110 Weight 126.4 kg 125.7 kg Intake: IV 60 / 260 200 / 260 110 / 110 Oral 237 / 714 477 / 714 Output: Urine 600 / 600 Other: Urine Color Pale Light Sofia Urine Appearance Clear Clear Clear Urine Odor Normal Strong Comment Amount estimated as patient had 200ml in commode and soaked a brief and sheets Stool Occult Blood Negative Stool Size Small Stool Characteristics Soft Formed Voiding Methods Bedside Commode Diaper Incontinent Data Completed and Pending Labs on day of discharge: Labs from last 24 hours 04/18/20 04/18/20 04/16/20 06:08 06:08 21:35 WBC 17.89 H RBC 4.31 Hgb 11.8 Hct 38.8 MCV 90.0 MCH 27.4 MCHC 30.4 L RDW 14.2 Plt Count 268 MPV 10.8 Immature Gran % 0.6 Neutrophils % 85.7 Lymphocytes % 8.3 Monocytes % 5.3 Eosinophils % 0.0 Basophils % 0.1 Nucleated RBC % 0 Absolute Neutrophils 15.33 H Absolute Lymphocytes 1.48 Absolute Monocytes 0.95 H Absolute Eosinophils 0.00 Absolute Basophils 0.02 Sodium 135 L Potassium 4.4 Chloride 96 L Carbon Dioxide 34.3 H Anion Gap 4.7 BUN 15 Creatinine 0.76 Estimated GFR/1.73 m2 >= 60.00 Glucose 111 H Calcium 8.9 COVID-19 PCR Negative Nasopharyn COVID-19 PCR Not Applicable Ref Test Perform Site [place] [facility] Preliminary micro results at discharge 04/16/20 21:50 Blood Culture - Preliminary Blood NO GROWTH 24 HOURS 04/16/20 21:35 Blood Culture - Preliminary Blood NO GROWTH 24 HOURS [facility] Medical History Aspiration pneumonia Asthma Catatonia associated with another mental disorder Cholestasis Chronic diastolic CHF (congestive heart failure) Cirrhosis Cognitive developmental delay Dysphagia Esophageal dysmotility [place] 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 [facility] [place] Gastric ulcer GERD (gastroesophageal reflux disease) Hypertension Hypothyroidism 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 Obesity, morbid, BMI 40.0-49.9 Palliative care patient Roxi Ramirez Schatzki's ring of distal esophagus Schizophrenia Urinary retention UTI (urinary tract infection) Weakness on right side of face Surgical History H/O esophagogastroduodenoscopy and endoscopic ultrasound [place] [facility] [place]ophorect[place] History of bilateral tubal ligation History of hernia repair Social History Smoking/Tobacco Use Status: Never Alcohol Intake: never Drug use: Never Substance use type: does not use Household members: none Do you feel safe at home: Yes Do you feel safe in your relationship?: Yes Additional Social history: Resident @ [facility] [employer]
== END 2020-04-18 10:50 | disposition intermediate care facility (04) | DRG 177 ==
LOC: ER 23:29 → ICU 23:51 → MS 04-17 14:28
PROVIDERS: Family Medicine; Admitting Provider Internal Medicine; Emergency Provider Student in an Organized Health Care Education/Training Program; PCP Family Medicine; Visit Provider Internal Medicine
DX: J69.0 Pneumonitis due to inhalation of food and vomit (principal); J96.01 Acute respiratory failure with hypoxia; J96.02 Acute respiratory failure with hypercapnia; K83.1 Obstruction of bile duct; Z68.41 Body mass index [BMI] 40.0-44.9, adult; I50.32 Chronic diastolic (congestive) heart failure; F20.2 Catatonic schizophrenia; E66.01 Morbid (severe) obesity due to excess calories; K22.2 Esophageal obstruction; Z51.5 Encounter for palliative care; R13.10 Dysphagia, unspecified; J45.909 Unspecified asthma, uncomplicated; K74.60 Unspecified cirrhosis of liver; K21.9 Gastro-esophageal reflux disease without esophagitis; R33.9 Retention of urine, unspecified; K82.8 Other specified diseases of gallbladder; E03.9 Hypothyroidism, unspecified; Z66 Do not resuscitate
CPT/HCPCS: 36415; 80048; 80053; 82805; 87040; 87081; 93005; 94640; 96365; 97162; 99232; 99239; 99254; 99285; 99291; J1650; U0003; 71045; 83605; 83735; 83880; 84443; 84484; 85025; 85610; 85730; 87070; 87205; 93010; 94660; J0131; J0295; J2543; J2930; J3490; J7512; J7620

== ENCOUNTER 2020-04-22 15:13 | Outpatient (REF) | payer MEDICARE, MEDICAID, SELFPAY ==
[2020-04-22 15:39] LABS: Abs Immature Grans 0.07 10^3/uL (0.0-0.06); Absolute Basophil Count 0.05 10^3/uL (0.0-0.2); Absolute Lymphocyte Count 1.98 10^3/uL (1.2-3.4); Absolute Monocyte Count 0.75 10^3/uL (0.1-0.8); Absolute Neutrophil Count 8.73 10^3/uL (1.2-6.7); Basophils % 0.4; Eosinophils % 3.3; HCT 45.3 % (36.0-46.0); HGB 13.5 g/dL (11.2-15.7); Immature Grans % 0.6; Lymphocytes % 16.5; MCH 27.6 pg (27.0-33.0); MCHC 29.8 % (32.0-36.0); MCV 92.4 fL (80-95); MPV 10.6 fL (8.0-11.0); Monocytes % 6.3; Neutrophils % 72.9; Nucleated RBC 0 %; Platelet Count 333 10^3/uL (130-400); RDW 14.6 % (11.7-14.6); RDW-SD 49.8 fL; WBC 11.97 10^3/uL (4.4-10.8)
[2020-04-22 15:48] LABS: Anion Gap 3.9 mmol/L (3-11); BUN 12 mg/dL (7-18); CO2 34.1 mmol/L (21.0-32.0); CREATININE 0.82 mg/dL (0.55-1.02); Calcium 9.2 mg/dL (8.5-10.1); Chloride 103 mmol/L (98-107); Glucose 103 mg/dL (74-106); Potassium 4.5 mmol/L (3.5-5.1); Sodium 141 mmol/L (136-145)
== END 2020-04-22 15:33 ==
LOC: NCHCN 15:13
PROVIDERS: PCP Family Medicine; Visit Provider Family Medicine
DX: J18.9 Pneumonia, unspecified organism (principal); I50.9 Heart failure, unspecified; E11.9 Type 2 diabetes mellitus without complications
CPT/HCPCS: 80048; 85025

== ENCOUNTER 2020-05-23 11:07 | Outpatient (REF) | payer MEDICARE, MEDICAID, SELFPAY ==
[2020-05-23 13:24] LABS: Anion Gap 4.8 mmol/L (3-11); BUN 10 mg/dL (7-18); CO2 33.2 mmol/L (21.0-32.0); CREATININE 0.71 mg/dL (0.55-1.02); Calcium 8.9 mg/dL (8.5-10.1); Chloride 105 mmol/L (98-107); Glucose 95 mg/dL (74-106); Sodium 143 mmol/L (136-145)
[2020-05-23 13:45] LABS: Abs Immature Grans 0.03 10^3/uL (0.0-0.06); Absolute Basophil Count 0.05 10^3/uL (0.0-0.2); Absolute Eosinophil Count 0.24 10^3/uL (0.0-0.7); Absolute Lymphocyte Count 1.53 10^3/uL (1.2-3.4); Absolute Monocyte Count 0.61 10^3/uL (0.1-0.8); Absolute Neutrophil Count 5.34 10^3/uL (1.2-6.7); Basophils % 0.6; Eosinophils % 3.1; HCT 48.8 % (36.0-46.0); HGB 14.6 g/dL (11.2-15.7); Immature Grans % 0.4; Lymphocytes % 19.6; MCH 27.4 pg (27.0-33.0); MCHC 29.9 % (32.0-36.0); MCV 91.6 fL (80-95); MPV 11.4 fL (8.0-11.0); Monocytes % 7.8; Neutrophils % 68.5; Nucleated RBC 0 %; Platelet Count 269 10^3/uL (130-400); RBC 5.33 10^6/uL (3.93-5.22); RDW-SD 50.7 fL
== END 2020-05-23 11:27 ==
LOC: NCHCN 11:07
PROVIDERS: PCP Family Medicine; Visit Provider Family Medicine
DX: E11.65 Type 2 diabetes mellitus with hyperglycemia (principal); F60.1 Schizoid personality disorder; I50.32 Chronic diastolic (congestive) heart failure; E66.01 Morbid (severe) obesity due to excess calories
CPT/HCPCS: 80048; 85025

== ENCOUNTER 2020-05-30 19:39 | Outpatient (REF) | payer MEDICARE, MEDICAID, SELFPAY ==
[2020-05-30 20:41] LABS: Bilirubin Negative (Negative); Blood Negative (Negative); Clarity Clear (Clear); Glucose Negative (Negative); Ketones 15 mg/dL (Negative); Leukocyte Esterase Negative (Negative); Nitrite Negative (Negative); Urobilinogen 0.2 EU/dL (Up TO 0.2)
== END 2020-05-30 19:59 ==
LOC: LBN 19:39
PROVIDERS: PCP Family Medicine; Visit Provider Nurse Practitioner Gerontology
DX: N39.0 Urinary tract infection, site not specified (principal)
CPT/HCPCS: 81003; 87086

== ENCOUNTER 2020-06-29 03:29 | Outpatient (CLI) | payer MEDICARE, MEDICAID, SELFPAY ==
--- NOTE | 2020-06-29 | DI.RAD_ITS ---
EXAM: XR CHEST 2V PA LATERAL CLINICAL HISTORY: F/U ASPIRATION PNEUMONIA AND BIBASILAR OPACITIES,BLE EDEMA. TECHNIQUE: 2D digital imaging was performed. COMPARISON: CR,XR XR PORTABLE CHEST AP from 04/16/2020 FINDINGS: Heart size is normal. The mediastinum is not widened. Left lung is clear. Mild increased markings in the lateral right lung base. The previously present infiltrate in the left lower lobe is no longer seen. There are no obvious pleural effusions. No pne umothorax. IMPRESSION: Mild increased markings in the lateral right lung base. However, significant improvement when compar ed to the portable image of 04/16/2020. DATA REPOSITORY: RADIATION DOSE DELIVERED:
== END 2020-06-29 03:49 ==
PROVIDERS: PCP Family Medicine; Visit Provider Nurse Practitioner Gerontology
DX: J69.0 Pneumonitis due to inhalation of food and vomit (principal); R60.0 Localized edema; R91.8 Other nonspecific abnormal finding of lung field
CPT/HCPCS: 71046

== ENCOUNTER 2020-08-01 21:49 | Emergency (ER) | payer MEDICARE, MEDICAID, SELFPAY ==
[2020-08-01 21:32] VITALS: BP 147/83; PULSE 80; RESP 23; TEMP 36.2; O2SAT 97
--- NOTE | 2020-08-01 21:38 | ED.GENADUL_ITS ---
Discharge Plan Disposition Patient Disposition: HOME Condition: Good Discharge Details Clinical Impression: Angioedema Primary Care Provider: Ann Marie Roa ED Provider: Bg Gautam Home Meds and New Rx's Prescriptions: New prednisone 50 mg tablet 50 mg PO DAILY Qty: 5 RF: 0 Continued magnesium oxide 400 mg (241.3 mg magnesium) Tablet 400 mg PO DAILY RF: 0 lisinopril 10 mg Tablet 10 mg PO DAILY RF: 0 potassium chloride [Klor-Con M10] 10 mEq tablet,ER particles/crystals 30 meq PO DAILY RF: 0 escitalopram oxalate 5 mg tablet 5 mg PO DAILY RF: 0 Calcium 600 with Vitamin D3 600 mg(1,500mg) -400 unit Tablet,Chewable 1 tab PO BID RF: 0 clonazepam 1 mg tablet 1 mg PO TID RF: 0 ferrous sulfate 325 mg (65 mg iron) Tablet 325 mg PO BID RF: 0 olanzapine 15 mg tablet 15 mg PO HS RF: 0 Floranex 100 million cell Granules In Packet 1 packet PO TID RF: 0 Refresh Plus 0.5 % dropperette 1 ea OU DAILY PRN PRN (Reason: Dry Eyes) RF: 0 omeprazole 20 mg Capsule,Delayed Release(Dr/Ec) 20 mg PO DAILY RF: 0 guaifenesin 100 mg/5 mL Syrup 200 mg PO Q6H PRNRF: 0 cholestyramine (with sugar) 4 gram powder in packet 1 packet PO DAILY RF: 0 donepezil [Aricept] 10 mg Tablet 10 mg PO HS RF: 0 methimazole 5 mg Tablet 5 mg PO DAILY RF: 0 acetaminophen 325 mg Tablet 650 mg PO TID PRN PRN (Reason: Pain) RF: 0 amlodipine 5 mg tablet 5 mg PO DAILY RF: 0 ascorbic acid (vitamin C) [Vitamin C] 500 mg tablet 500 mg PO BID RF: 0 folic acid 1 mg tablet 1 mg PO DAILY RF: 0 imipramine HCl 25 mg tablet 25 mg PO HS RF: 0 Discontinued furosemide 20 mg tablet 60 mg PO QAM RF: 0 furosemide 40 mg tablet 40 mg PO DAILY@1400 RF: 0 Discharge Instructions Additional Instructions: Stop your lisinopril as this class of medications has been known to cause angioedema. Please take the prednisone, 50 mg daily for the next 5 days as directed. Please continue to take 25 mg of Benadryl 3-4 times per day as needed for swelling until your symptoms resolved. An alternative to this would be taking loratadine 10 mg daily until the symptoms resolved. Both of these medications are [id number]. If you notice any worsening of your symptoms, or any new symptoms such as vomiting, diarrhea, fever, chills, shortness of breath, chest pain, numbness, weakness, or fainting , please return immediately to the emergency department for reevaluation. Please follow up with your primary care provider as soon as possible for reassessment and reevaluation. As always, it was a pleasure participating in your medical care today. Referrals: Ann Marie Roa [Primary Care Provider] - Medical Decision Making <Luis Antonio Hensley MD - Last Filed: 08/01/20 21:42> 65-year-old female who takes an YAMEL inhibitor. [facility]. After dinner this evening she noted to have left face and lip swelling. No known food allergies. No drooling and no shortness of breath. She was given Benadryl 25 mg, prednisone 20 mg, Pepcid 20 mg by mouth prior to transport. She arrives to the ER alert, pleasant and interactive. She is afebrile and oxygenating 97%, speaking in full sentences. Consistent with angioedema, most likely secondary to her YAMEL inhibitor, no other clear inciting etiology. IV access had been established by EMS, we administered Solu-Medrol, Pepcid and an additional 25 mg of Benadryl. <Bg Gautam DO - Last Filed: 08/02/20 00:29> Patient was signed out to me by my colleague Dr. Luis Antonio Hensley, please refer to his HPI, physical exam, assessment and plan. At time of signout we are pending reassessment for angioedema which only included the lip and cheek. There is no edema of the tongue both initially or now. The swelling in her lips and cheek have completely resolved, she feels well, no wheezes or difficulty breathing, vital signs stable. At this time she shows no evidence whatsoever of angioedema anaphylaxis or other allergic reaction. Patient safe and stable for discharge currently. Plan per Dr. Hensley with the hold lisinopril/YAMEL ARB until reassessment by PCP. We will continue this plan. Will recommend Benadryl or loratadine at home, as well as a 5-day steroid burst. I did contact Bakari who cares for the patient at the [facility], and informed him of the plan. Instructions were also written in the discharge instructions. Patient will be transferred back to via [facility] ambulance, discussed red flags which return. I have extensively reviewed the treatment plan and discharge instructions with the patient. I have addressed all patient concerns at this time. The patient was made aware of what symptoms to monitor for that would warrant a return to the emergency department. Discussed the plan with the patient, they demonstrate verbal understanding and agreement with our assessment and plan at this time. The documentation in this chart was dictated using [employer] dictation software. Please excuse any dictation errors. HPI <Luis Antonio Hensley MD - Last Filed: 08/01/20 21:42> General Mode of arrival: EMS . Date/Time Provider Initiated Documentation: 08/01/20 22:30 . Information obtained by: patient and EMS . History of Present Illness 65 year old F presents to the emergency department with the chief complaint of L face swelling, described as mild and moderate, Quality is described as constant, and is localized to the face, mouth and left. Patient started experiencing this minute(s) and it has been constant. No relieving factors improve symptom(s), No exacerbating factors reported . Patient notes denies shortness of breath. Patient did receive the following treatments prior to arrival, other (Prednisone 20 mg, Benadryl 25 mg, Pepcid 20 mg) Related Data Home Medications Medication Instructions Recorded Confirmed donepezil [Aricept] 10 mg PO HS 07/04/18 08/01/20 methimazole 5 mg PO DAILY 07/04/18 08/01/20 acetaminophen 650 mg PO TID PRN PRN 09/30/18 08/01/20 amlodipine 5 mg PO DAILY 09/30/18 08/01/20 ascorbic acid (vitamin C) [Vitamin 500 mg PO BID 09/30/18 08/01/20 C] folic acid 1 mg PO DAILY 09/30/18 08/01/20 imipramine HCl 25 mg PO HS 09/30/18 08/01/20 Calcium 600 with Vitamin D3 1 tab PO BID 01/16/20 08/01/20 clonazepam 1 mg PO TID 01/16/20 08/01/20 escitalopram oxalate 5 mg PO DAILY 01/16/20 08/01/20 lisinopril 10 mg PO DAILY 01/16/20 08/01/20 magnesium oxide 400 mg PO DAILY 01/16/20 08/01/20 potassium chloride [Klor-Con M10] 30 meq PO DAILY 01/16/20 08/01/20 Floranex 1 packet PO TID 01/17/20 08/01/20 Refresh Plus 1 ea OU DAILY PRN PRN 01/17/20 08/01/20 ferrous sulfate 325 mg PO BID 01/17/20 08/01/20 olanzapine 15 mg PO HS 01/17/20 08/01/20 guaifenesin 200 mg PO Q6H PRN 04/16/20 08/01/20 omeprazole 20 mg PO DAILY 04/16/20 08/01/20 cholestyramine (with sugar) 1 packet PO DAILY 08/01/20 08/01/20 prednisone 50 mg PO DAILY #5 tab 08/01/20 Previous Rx's Medication Instructions Recorded prednisone 50 mg PO DAILY #5 tab 08/01/20 Allergies Allergy/AdvReac Type Severity Reaction Status Date / Time Sulfa (Sulfonamide Allergy Mild Skin Rash Verified 04/16/20 22:10 Antibiotics) General Stated Complaint: Allergic TIFFANY: 2 Review of Systems <Luis Antonio Hensley MD - Last Filed: 08/01/20 21:42> Narrative: No change to voice. No drooling. No shortness of breath. Has otherwise been well. 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 Obesity, morbid, BMI 40.0-49.9 Palliative care patient Roxi Doranjanaertin Schatzki's ring of distal esophagus Schizophrenia Urinary retention UTI (urinary tract infection) Weakness on right side of face Surgical History H/O esophagogastroduodenoscopy and endoscopic ultrasound 08/2019 at [facility] [place] H/O oophorectomy History of bilateral tubal ligation History of hernia repair Social History Smoking/Tobacco Use Status: Never Smoking risk assessment performed?: Yes Alcohol Intake: never Drug use: Never Substance use type: does not use Household members: none Do you feel safe at home: Yes Do you feel safe in your relationship?: Yes Additional Social history: Resident @ [facility] [employer] Exam <Luis Antonio Hensley MD - Last Filed: 08/01/20 21:42> Narrative Exam Narrative: GEN: awake, alert, oriented 3. Pleasant, well groomed, interacti ve. HEAD: Normocephalic, atraumatic ENT: Mucous membranes moist, oropharynx unremarkable, left lip and cheek swelling, the uvula is midline, partially edentulous, external ear exam unremarkable EYES: PERRL, EOMI NECK: Full ROM, no ROBEL, no menigismus CHEST/RESP: Nontender, clear to auscultation bilateral, no wheeze/rhonchi/rales CARDIOVASCULAR: RRR, no murmur, rub brian. 2+ Rad pulse bilateral ABDOMEN: Soft, nontender, anterior mobile nontender mass. +Bowel sounds EXT: Full ROM, no edema, no rash Neuro: Grossly normal neurologic exam, conversant, interactive. Psych: Speech fluent, thoughts congruent, affect normal Course <Luis Antonio Hensley MD - Last Filed: 08/01/20 21:42> Vital Signs Vital signs: Vital Signs Temperature 36.2 C L 08/01/20 21:32 Pulse 80 08/01/20 21:32 Respiratory Rate 23 08/01/20 21:32 Blood Pressure 147/83 H 08/01/20 21:32 Pulse Oximetry 97 08/01/20 21:32 Temperature 36.2 C L 08/01/20 21:32 Temperature Source Skin 08/01/20 21:32 Pulse 80 08/01/20 21:32 Respiratory Rate 23 08/01/20 21:32 Blood Pressure 147/83 H 08/01/20 21:32 Blood Pressure Position Supine 08/01/20 21:32 Pulse Oximetry 97 08/01/20 21:32 Oxygen Delivery Method Room Air 08/01/20 21:32 Oxygen Flow Rate 0 08/01/20 21:32 Pain Level 7 08/01/20 21:32 Sign Out <Luis Antonio Hensley MD - Last Filed: 08/01/20 21:42> Sign Out Data: Sign Out Comment: recheck left upper lip angioedema Last updated by Luis Antonio Hensley MD at 08/01/20 22:51
[2020-08-01] MEDS: diphenhydrAMINE 50 MG/ML VIAL 25 MG IVP (21:45)
[2020-08-01] MEDS: methylPREDNISolone SUCC 125 MG VIAL IVP (21:45)
[2020-08-01] MEDS: FAMOTIDINE 20 MG/50 ML BAG 200 MG IVPB (21:45)
--- NOTE | 2020-08-01 22:17 | NUR.NOTE ---
Spoke with pt sister/guardian Tiny [phone]. Aware pt here, consent to treat, aware of plan for DC back to [facility] if improved. Would like call back only if any issues arise.
[2020-08-01 22:32] VITALS: BP 123/60; PULSE 66; PULSE 70; RESP 18; O2SAT 98
[2020-08-01 23:00] VITALS: PULSE 73; RESP 21; O2SAT 93
--- NOTE | 2020-08-01 23:45 | NUR.NOTE ---
Lip swelling improved. Speech more clear, pt reports lip feels less swollen. Mrogan PO fluids. plan to re-eval in 1 hour.
[2020-08-02 00:01] VITALS: BP 115/76; PULSE 73; PULSE 76; RESP 17; O2SAT 92
== END 2020-08-02 00:52 | disposition home or self-care (01) ==
PROVIDERS: Emergency Provider Student in an Organized Health Care Education/Training Program; PCP Family Medicine
DX: T78.3XXA Angioneurotic edema, initial encounter (principal); T46.4X5A Adverse effect of angiotensin-converting-enzyme inhibitors, initial encounter
CPT/HCPCS: 96365; 96375; 99284; J1200; J2930

== ENCOUNTER 2020-08-29 18:15 | Outpatient (REF) | payer MEDICARE, MEDICAID, SELFPAY ==
[2020-08-29 14:14] LABS: Anion Gap 5.8 mmol/L (3-11); BUN 8 mg/dL (7-18); CO2 35.2 mmol/L (21.0-32.0); CREATININE 0.6 mg/dL (0.55-1.02); Calcium 9.2 mg/dL (8.5-10.1); Chloride 103 mmol/L (98-107); Glucose 86 mg/dL (74-106); Potassium 3.8 mmol/L (3.5-5.1); Sodium 144 mmol/L (136-145)
== END 2020-08-29 18:16 | disposition home or self-care (01) ==
LOC: NCHCN 18:15
PROVIDERS: PCP Family Medicine; Visit Provider Family Medicine
DX: I50.32 Chronic diastolic (congestive) heart failure (principal); E11.65 Type 2 diabetes mellitus with hyperglycemia; E66.01 Morbid (severe) obesity due to excess calories
CPT/HCPCS: 80048

== ENCOUNTER 2020-08-31 02:48 | Outpatient (CLI) | payer MEDICARE, MEDICAID, SELFPAY ==
--- NOTE | 2020-08-31 | DI.RAD_ITS ---
EXAM: XR LUMBAR SPINE COMPLETE CLINICAL HISTORY: S/P FALL, LT LOW BACK PAIN. TECHNIQUE: 2D digital imaging was performed. COMPARISON: CR XR lumbar spine complete from 02/13/2019 FINDINGS: There are 5 lumbar type vertebral bodies. No spondylolysis or spondylolisthesis. No acute fracture or subluxation. Mild degenerative facet arthropathy is seen at L4-5 and L5-S1. Mild disc space narr owing is seen at T12-L1 and L1-L2. Atherosclerosis is present. IMPRESSION: No acute fracture or subluxation. DATA REPOSITORY: RADIATION DOSE DELIVERED:
== END 2020-08-31 03:08 ==
PROVIDERS: PCP Family Medicine; Visit Provider Family Medicine
DX: M54.5 Low back pain (principal)
CPT/HCPCS: 72110

== ENCOUNTER 2020-10-31 15:45 | Outpatient (REF) | payer MEDICARE, MEDICAID, SELFPAY ==
[2020-10-31 14:48] LABS: Anion Gap 7.2 mmol/L (3-11); BUN 15 mg/dL (7-18); CO2 33.8 mmol/L (21.0-32.0); CREATININE 0.6 mg/dL (0.55-1.02); Calcium 9.3 mg/dL (8.5-10.1); Chloride 104 mmol/L (98-107); Glucose 81 mg/dL (74-106); Potassium 4.4 mmol/L (3.5-5.1); Sodium 145 mmol/L (136-145); TSH (W/Ref FT4) 2.03 uIU/mL (0.36-3.74)
== END 2020-10-31 15:46 | disposition home or self-care (01) ==
LOC: LBN 15:45
PROVIDERS: PCP Family Medicine; Visit Provider Family Medicine
DX: E03.8 Other specified hypothyroidism (principal); I10 Essential (primary) hypertension; I50.32 Chronic diastolic (congestive) heart failure
CPT/HCPCS: 80048; 84443

== ENCOUNTER 2020-12-13 12:32 | Outpatient (REF) | payer MEDICARE, MEDICAID, SELFPAY ==
[2020-12-13 13:01] LABS: Abs Immature Grans 0.02 10^3/uL (0.0-0.06); Absolute Basophil Count 0.06 10^3/uL (0.0-0.2); Absolute Eosinophil Count 0.35 10^3/uL (0.0-0.7); Absolute Lymphocyte Count 1.99 10^3/uL (1.2-3.4); Absolute Neutrophil Count 5.49 10^3/uL (1.2-6.7); Basophils % 0.7; HGB 14.5 g/dL (11.2-15.7); Immature Grans % 0.2; Lymphocytes % 22.8; MCH 28.8 pg (27.0-33.0); MCHC 30.9 % (32.0-36.0); MCV 93.3 fL (80-95); MPV 10.7 fL (8.0-11.0); Monocytes % 9.2; Neutrophils % 63.1; Nucleated RBC 0 %; Platelet Count 261 10^3/uL (130-400); RBC 5.04 10^6/uL (3.93-5.22); RDW 13.6 % (11.7-14.6); RDW-SD 46.5 fL; WBC 8.71 10^3/uL (4.4-10.8)
[2020-12-13 13:59] LABS: Iron 87 ug/dL (50-170); Total Iron Binding Capacity 267 ug/dL (250-450); Transferrin Sat 33 % (15-50)
[2020-12-13 14:27] LABS: BUN 9 mg/dL (7-18); CREATININE 0.6 mg/dL (0.55-1.02); Calcium 9.2 mg/dL (8.5-10.1); Chloride 102 mmol/L (98-107); Ferritin 113 ng/mL (8-252); Glucose 108 mg/dL (74-106); Magnesium 2.1 mg/dL (1.8-2.4); Potassium 3.8 mmol/L (3.5-5.1); Sodium 145 mmol/L (136-145)
== END 2020-12-13 12:33 | disposition home or self-care (01) ==
LOC: NCHCN 12:32
PROVIDERS: PCP Family Medicine; Visit Provider Family Medicine
DX: K87 Disorders of gallbladder, biliary tract and pancreas in diseases classified elsewhere (principal); E83.42 Hypomagnesemia; E11.65 Type 2 diabetes mellitus with hyperglycemia; I50.32 Chronic diastolic (congestive) heart failure; K44.9 Diaphragmatic hernia without obstruction or gangrene
CPT/HCPCS: 80048; 82728; 83540; 83550; 83735; 85025

== ENCOUNTER 2021-01-17 14:15 | Outpatient (REF) | payer MEDICARE, MEDICAID, SELFPAY ==
[2021-01-17 15:14] LABS: Abs Immature Grans 0.02 10^3/uL (0.0-0.06); Absolute Basophil Count 0.05 10^3/uL (0.0-0.2); Absolute Eosinophil Count 0.31 10^3/uL (0.0-0.7); Absolute Lymphocyte Count 1.47 10^3/uL (1.2-3.4); Absolute Monocyte Count 0.68 10^3/uL (0.1-0.8); Absolute Neutrophil Count 4.76 10^3/uL (1.2-6.7); Basophils % 0.7; Eosinophils % 4.3; HCT 48.2 % (36.0-46.0); HGB 14.5 g/dL (11.2-15.7); Immature Grans % 0.3; Lymphocytes % 20.2; MCH 28.9 pg (27.0-33.0); MCHC 30.1 % (32.0-36.0); MCV 96.2 fL (80-95); MPV 10.7 fL (8.0-11.0); Monocytes % 9.3; Neutrophils % 65.2; Nucleated RBC 0 %; Platelet Count 240 10^3/uL (130-400); RBC 5.01 10^6/uL (3.93-5.22); RDW 14.6 % (11.7-14.6); RDW-SD 52.3 fL; WBC 7.29 10^3/uL (4.4-10.8)
[2021-01-17 15:35] LABS: Anion Gap 3.1 mmol/L (3-11); BUN 11 mg/dL (7-18); CO2 39.9 mmol/L (21.0-32.0); CREATININE 0.6 mg/dL (0.55-1.02); Calcium 8.7 mg/dL (8.5-10.1); Chloride 103 mmol/L (98-107); Glucose 93 mg/dL (74-106); Potassium 3.6 mmol/L (3.5-5.1); Sodium 146 mmol/L (136-145); TSH (W/Ref FT4) 2.19 uIU/mL (0.36-3.74)
== END 2021-01-17 14:16 | disposition home or self-care (01) ==
LOC: LBN 14:15
PROVIDERS: PCP Family Medicine; Visit Provider Internal Medicine
DX: E11.65 Type 2 diabetes mellitus with hyperglycemia (principal); E83.42 Hypomagnesemia; I50.32 Chronic diastolic (congestive) heart failure; K44.9 Diaphragmatic hernia without obstruction or gangrene; K87 Disorders of gallbladder, biliary tract and pancreas in diseases classified elsewhere
CPT/HCPCS: 80048; 84443; 85025

== ENCOUNTER 2021-01-30 18:46 | Outpatient (REF) | payer MEDICARE, MEDICAID, SELFPAY ==
[2021-01-30 19:32] LABS: Abs Immature Grans 0.07 10^3/uL (0.0-0.06); Absolute Basophil Count 0.06 10^3/uL (0.0-0.2); Absolute Eosinophil Count 0.28 10^3/uL (0.0-0.7); Absolute Lymphocyte Count 1.65 10^3/uL (1.2-3.4); Absolute Monocyte Count 0.81 10^3/uL (0.1-0.8); Absolute Neutrophil Count 6.38 10^3/uL (1.2-6.7); Basophils % 0.6; HCT 50.9 % (36.0-46.0); HGB 14.5 g/dL (11.2-15.7); Immature Grans % 0.8; Lymphocytes % 17.8; MCH 28.5 pg (27.0-33.0); MCHC 28.5 % (32.0-36.0); MPV 10.9 fL (8.0-11.0); Monocytes % 8.8; Nucleated RBC 0 %; Platelet Count 259 10^3/uL (130-400); RBC 5.09 10^6/uL (3.93-5.22); RDW 14.6 % (11.7-14.6); WBC 9.25 10^3/uL (4.4-10.8)
[2021-01-30 19:40] LABS: Anion Gap -0.9 mmol/L (3-11); BUN 9 mg/dL (7-18); CO2 41.9 mmol/L (21.0-32.0); CREATININE 0.6 mg/dL (0.55-1.02); Calcium 8.8 mg/dL (8.5-10.1); Chloride 106 mmol/L (98-107); Glucose 121 mg/dL (74-106); Potassium 3.9 mmol/L (3.5-5.1); Sodium 147 mmol/L (136-145)
[2021-01-31 13:20] LABS: NT-proBNP 201 pg/mL (<300)
== END 2021-01-30 18:47 | disposition home or self-care (01) ==
LOC: LBN 18:46
PROVIDERS: PCP Family Medicine; Visit Provider Nurse Practitioner Gerontology
DX: I50.9 Heart failure, unspecified (principal); R50.9 Fever, unspecified; J06.9 Acute upper respiratory infection, unspecified
CPT/HCPCS: 80048; 83880; 85025

== ENCOUNTER 2021-01-31 01:48 | Outpatient (CLI) | payer MEDICARE, MEDICAID, SELFPAY ==
--- NOTE | 2021-01-31 08:20 | DI.RAD_ITS ---
Exam(s) XR CHEST 2V PA LATERAL EXAM: XR CHEST 2V PA LATERAL CLINICAL HISTORY: HYPOXIA,COUGH,ASPIRATION PNEUMONIA TECHNIQUE: 2D digital imaging was performed. COMPARISON: CR,RF RF BARIUM SWALLOW from 01/19/2020 CR,RF RF BARIUM SWALLOW from 01/19/2020 CR,XR XR PORTABLE CHEST AP from 04/16/2020 CR,XR XR PORTABLE CHEST AP from 04/16/2020 CR XR CHEST 2V PA LATERAL from 06/29/2020 CR XR CHEST 2V PA LATERAL from 06/29/2020 FINDINGS: The heart size within normal limits. Aorta mildly tortuous. Minimal blunting at the costophrenic an gles, unchanged. No infiltrate, pulmonary edema or pneumothorax. IMPRESSION: No acute abnormality. DATA REPOSITORY: RADIATION DOSE DELIVERED:
== END 2021-01-31 02:08 ==
PROVIDERS: PCP Family Medicine; Visit Provider Internal Medicine
DX: J69.0 Pneumonitis due to inhalation of food and vomit (principal); R09.02 Hypoxemia
CPT/HCPCS: 71046

== ENCOUNTER 2021-02-13 16:51 | Outpatient (REF) | payer MEDICARE, MEDICAID, SELFPAY ==
[2021-02-13 20:55] LABS: Bilirubin Negative (Negative); Blood Negative (Negative); Clarity Cloudy (Clear); Glucose Negative (Negative); Ketones Negative (Negative); Leukocyte Esterase Negative (Negative); Nitrite Negative (Negative); Specific Gravity 1.025 (1.005-1.025); Urobilinogen 0.2 EU/dL (Up TO 0.2)
[2021-02-13 20:57] LABS: Abs Immature Grans 0.02 10^3/uL (0.0-0.06); Absolute Basophil Count 0.07 10^3/uL (0.0-0.2); Absolute Eosinophil Count 0.13 10^3/uL (0.0-0.7); Basophils % 0.5; HCT 55.4 % (36.0-46.0); HGB 16.8 g/dL (11.2-15.7); Immature Grans % 0.2; Lymphocytes % 14.4; MCH 28.3 pg (27.0-33.0); MCHC 30.3 % (32.0-36.0); MCV 93.3 fL (80-95); MPV 11.6 fL (8.0-11.0); Neutrophils % 74.9; Nucleated RBC 0 %; Platelet Count 334 10^3/uL (130-400); RBC 5.94 10^6/uL (3.93-5.22); RDW 13.9 % (11.7-14.6); RDW-SD 48.2 fL; WBC 13.17 10^3/uL (4.4-10.8)
[2021-02-13 20:59] LABS: Absolute Monocyte Count 1.19 10^3/uL (0.1-0.8); Absolute Neutrophil Count 9.86 10^3/uL (1.2-6.7); Anion Gap 8.5 mmol/L (3-11); BUN 17 mg/dL (7-18); CO2 32.5 mmol/L (21.0-32.0); CREATININE 0.8 mg/dL (0.55-1.02); Calcium 10.6 mg/dL (8.5-10.1); Chloride 107 mmol/L (98-107); Glucose 113 mg/dL (74-106); Potassium 3.7 mmol/L (3.5-5.1); Sodium 148 mmol/L (136-145)
[2021-02-13 21:03] LABS: Bacteria Few HPF (Negative); C & S Indicated? No; Casts Negative LPF (Negative); Crystals Few Amorphous HPF (Negative); Epithelial Cells Few HPF (Negative); Mucus Negative (Negative); RBC 0-2 HPF (0-2)
== END 2021-02-13 16:52 | disposition home or self-care (01) ==
LOC: LBN 16:51
PROVIDERS: PCP Family Medicine; Visit Provider Internal Medicine
DX: R50.9 Fever, unspecified (principal); R68.89 Other general symptoms and signs; R82.998 Other abnormal findings in urine
CPT/HCPCS: 80048; 81003; 81015; 85025

== ENCOUNTER 2021-02-15 14:45 | Outpatient (REF) | payer MEDICARE, MEDICAID, SELFPAY ==
[2021-02-15 16:05] LABS: Abs Immature Grans 0.03 10^3/uL (0.0-0.06); Absolute Basophil Count 0.07 10^3/uL (0.0-0.2); Absolute Eosinophil Count 0.26 10^3/uL (0.0-0.7); Absolute Monocyte Count 1.11 10^3/uL (0.1-0.8); Absolute Neutrophil Count 9.79 10^3/uL (1.2-6.7); Basophils % 0.5; Eosinophils % 1.9; HCT 54.3 % (36.0-46.0); HGB 16.6 g/dL (11.2-15.7); Immature Grans % 0.2; MCH 28.2 pg (27.0-33.0); MCHC 30.6 % (32.0-36.0); MCV 92.3 fL (80-95); Monocytes % 8.2; Neutrophils % 72.2; Nucleated RBC 0 %; Platelet Count 333 10^3/uL (130-400); RBC 5.88 10^6/uL (3.93-5.22); RDW 13.7 % (11.7-14.6); RDW-SD 47.2 fL; WBC 13.56 10^3/uL (4.4-10.8)
[2021-02-15 16:06] LABS: Absolute Lymphocyte Count 2.31 10^3/uL (1.2-3.4)
[2021-02-15 16:18] LABS: ALT 92 U/L (14-59); AST 39 U/L (15-37); Albumin 3.6 g/dL (3.4-5.0); Alkaline Phosphatase 113 U/L (46-116); Anion Gap 12.2 mmol/L (3-11); BUN 16 mg/dL (7-18); Bilirubin, Total 0.4 mg/dL (0.2-1.0); C-Reactive Protein 2.75 mg/dL (0.0-0.3); CO2 27.8 mmol/L (21.0-32.0); CREATININE 1.1 mg/dL (0.55-1.02); Calcium 9.6 mg/dL (8.5-10.1); Chloride 105 mmol/L (98-107); Estimated GFR 49.85 (mL/min/1.73m2); Glucose 213 mg/dL (74-106); Potassium 3.7 mmol/L (3.5-5.1); Sodium 145 mmol/L (136-145); Total Protein 7.3 g/dL (6.4-8.2)
[2021-02-16 00:40] LABS: Vitamin D 25 Total 33.4 ng/mL (30-100)
== END 2021-02-15 14:46 | disposition home or self-care (01) ==
LOC: LBN 14:45
PROVIDERS: PCP Family Medicine; Visit Provider Nurse Practitioner Gerontology
DX: I50.9 Heart failure, unspecified (principal); E55.9 Vitamin D deficiency, unspecified; E11.9 Type 2 diabetes mellitus without complications; E87.8 Other disorders of electrolyte and fluid balance, not elsewhere classified
CPT/HCPCS: 80053; 82306; 83970; 85025; 86140

== ENCOUNTER 2021-02-16 09:00 | Emergency (ER) | payer MEDICARE, MEDICAID, SELFPAY ==
[2021-02-16] VITALS (37 sets, daily range): BP systolic 112–168; BP diastolic 84–117; PULSE 103–137; RESP 16–36; TEMP 36.7; O2SAT 90–95
[2021-02-16 09:33] LABS: Abs Immature Grans 0.02 10^3/uL (0.0-0.06); Absolute Basophil Count 0.05 10^3/uL (0.0-0.2); Absolute Eosinophil Count 0.19 10^3/uL (0.0-0.7); Absolute Lymphocyte Count 1.74 10^3/uL (1.2-3.4); Absolute Monocyte Count 0.95 10^3/uL (0.1-0.8); Basophils % 0.4; Eosinophils % 1.6; HGB 16.2 g/dL (11.2-15.7); Immature Grans % 0.2; MCH 28.1 pg (27.0-33.0); MCHC 30.6 % (32.0-36.0); MPV 10.9 fL (8.0-11.0); Monocytes % 8.2; Neutrophils % 74.6; Nucleated RBC 0 %; Platelet Count 299 10^3/uL (130-400); RBC 5.76 10^6/uL (3.93-5.22); RDW 13.7 % (11.7-14.6); RDW-SD 47.2 fL; WBC 11.59 10^3/uL (4.4-10.8)
[2021-02-16 09:34] LABS: Absolute Neutrophil Count 8.65 10^3/uL (1.2-6.7)
--- NOTE | 2021-02-16 09:41 | ED.GENADUL_ITS ---
Discharge Plan Disposition Patient Disposition: SNF (LEVEL 1) [facility] Condition: Stable Discharge Details Clinical Impression: Acute dehydration Primary Care Provider: Ann Marie Roa ED Provider: Que Lopez Home Meds and New Rx's Prescriptions: Continued magnesium oxide 400 mg (241.3 mg magnesium) Tablet 400 mg PO DAILY RF: 0 potassium chloride [Klor-Con M10] 10 mEq tablet,ER particles/crystals 30 meq PO DAILY RF: 0 escitalopram oxalate 5 mg tablet 5 mg PO DAILY RF: 0 Calcium 600 with Vitamin D3 600 mg(1,500mg) -400 unit Tablet,Chewable 1 tab PO BID RF: 0 clonazepam 1 mg tablet 1 mg PO TID RF: 0 ferrous sulfate 325 mg (65 mg iron) Tablet 325 mg PO BID RF: 0 olanzapine 15 mg tablet 15 mg PO HS RF: 0 Floranex 100 million cell Granules In Packet 1 packet PO TID RF: 0 Refresh Plus 0.5 % dropperette 1 ea OU DAILY PRN PRN (Reason: Dry Eyes) RF: 0 omeprazole 20 mg Capsule,Delayed Release(Dr/Ec) 20 mg PO DAILY RF: 0 guaifenesin 100 mg/5 mL Syrup 200 mg PO Q6H PRNRF: 0 cholestyramine (with sugar) 4 gram powder in packet 1 packet PO DAILY RF: 0 donepezil [Aricept] 10 mg Tablet 10 mg PO HS RF: 0 methimazole 5 mg Tablet 5 mg PO DAILY RF: 0 acetaminophen 325 mg Tablet 650 mg PO TID PRN PRN (Reason: Pain) RF: 0 amlodipine 5 mg tablet 5 mg PO DAILY RF: 0 ascorbic acid (vitamin C) [Vitamin C] 500 mg tablet 500 mg PO BID RF: 0 folic acid 1 mg tablet 1 mg PO DAILY RF: 0 imipramine HCl 25 mg tablet 25 mg PO HS RF: 0 furosemide 80 mg tablet 80 mg PO DAILY RF: 0 furosemide 20 mg tablet 60 mg PO .1400 DAILY RF: 0 sumatriptan succinate 50 mg Tablet 50 mg PO PRN PRNRF: 0 nystatin 100,000 unit/gram powder 1 applic TOPICAL DAILY PRN PRNRF: 0 Discharge Instructions Instructions: Dehydration (ED) Additional Instructions: Please discuss your diuretic (Lasix) prescription with your prescribing physician. Diuretic dosing may need to be adjusted. Be sure to maintain adequate hydration. Please contact your primary care physician to arrange follow-up. Return to the ER for any worsening or new concerning symptoms. Referrals: Ann Marie Roa [Primary Care Provider] - Discharge Data Discharge Date/Time-TO BE ENTERED AT DEPARTURE: 02/16/21 14:24 Medical Decision Making 945??65-year-old female with multiple medical problems sent from long-term with concern for altered mental status with the past 5 days with decreased oral intake. Patient has no complaints. No signs of focal bacterial infection on exam. Patient is tachycardic and appears dehydrated. I will give light IVF bolus to rehydrate given prior history of congestive heart failure. I will encourage patient to take oral hydration. Plan to check labs to assess for electrolyte abnormalities and acute renal insufficiency. I will obtain chest x-ray to assess for occult pneumonia. Urinalysis was inconclusive recently, will repeat today. --Chest x-ray interpreted by radiology: IMPRESSION: Different densities over the mike thoraces. Rings to mind possibility of relative hypoperfusion of the left lung field which can be seen with pulmonary emboli. If clinically indicated pulmonary embolus protocol CT scan can be performed. --CT of the chest interpreted by radiology:IMPRESSION: 1. No evidence of acute pulmonary emboli. No evidence of pulmonary infarction.No pleural effusions. 2. No confluent infiltrates. No intrathoracic adenopathy 3. Stable small left adrenal nodule. 1320--Labs reviewed and nondiagnostic. Heart rate did improve with light IVF bolus. I spoke with nurse practitioner at [facility] and discussed ED presentation course. I am concerned the patient may be over diuresed leading to dehydration. Reluctant to give additional IV fluid at this time given congestive heart failure history. Plan for oral rehydration and adjustment of diuretic dosing. Patient will be discharged with outpatient follow-up to occur at [facility]. Medical Records Medical records reviewed: Yes I reviewed the patient's medical records. Lab Data Lab results reviewed: Yes I reviewed the patient's lab results. Labs: Laboratory Tests Range/Units 02/16/21 02/16/21 02/16/21 09:20 09:20 09:20 WBC (4.4-10.8) 10^3/uL 11.59 H RBC (3.93-5.22) 10^6/uL 5.76 H Hgb (11.2-15.7) g/dL 16.2 H Hct (36.0-46.0) % 53.0 H MCV (80-95) fL 92.0 MCH (27.0-33.0) pg 28.1 MCHC (32.0-36.0) % 30.6 L RDW (11.7-14.6) % 13.7 Plt Count (130-400) 10^3/uL 299 MPV (8.0-11.0) fL 10.9 Immature Gran % 0.2 Neutrophils % 74.6 Lymphocytes % 15.0 Monocytes % 8.2 Eosinophils % 1.6 Basophils % 0.4 Nucleated RBC % % 0 Absolute Neutrophils (1.2-6.7) 10^3/uL 8.65 H Absolute Lymphocytes (1.2-3.4) 10^3/uL 1.74 Absolute Monocytes (0.1-0.8) 10^3/uL 0.95 H Absolute Eosinophils (0.0-0.7) 10^3/uL 0.19 Absolute Basophils (0.0-0.2) 10^3/uL 0.05 Sodium (136-145) mmol/L 146 H Potassium (3.5-5.1) mmol/L 3.6 Chloride (98-107) mmol/L 105 Carbon Dioxide (21.0-32.0) mmol/L 33.6 H Anion Gap (3-11) mmol/L 7.4 BUN (7-18) mg/dL 13 Creatinine (0.55-1.02) mg/dL 0.8 Estimated GFR/1.73 m2 (mL/min/1.73m2) >= 60.00 Glucose (74-106) mg/dL 116 H D Calcium (8.5-10.1) mg/dL 9.7 Total Bilirubin (0.2-1.0) mg/dL 0.3 AST (15-37) U/L 38 H ALT (14-59) U/L 86 H Alkaline Phosphatase (46-116) U/L 112 Ammonia (11-32) umol/L Troponin I (<0.06) ng/mL < 0.05 Total Protein (6.4-8.2) g/dL 7.7 Albumin (3.4-5.0) g/dL 3.5 TSH (0.36-3.74) uIU/mL 1.15 Urine Color (Yellow) Urine Clarity (Clear) Urine pH (5-8) Ur Specific Albin (1.005-1.025) Urine Protein (Negative) mg/dL Urine Ketones (Negative) mg/dL Urine Blood (Negative) Urine Nitrite (Negative) Urine Bilirubin (Negative) Urine Urobilinogen (Up TO 0.2) EU/dL Ur Leukocyte Esterase (Negative) Urine Glucose (Negative) mg/dL Range/Units 02/16/21 02/16/21 10:00 12:34 WBC (4.4-10.8) 10^3/uL RBC (3.93-5.22) 10^6/uL Hgb (11.2-15.7) g/dL Hct (36.0-46.0) % MCV (80-95) fL MCH (27.0-33.0) pg MCHC (32.0-36.0) % RDW (11.7-14.6) % Plt Count (130-400) 10^3/uL MPV (8.0-11.0) fL Immature Gran % Neutrophils % Lymphocytes % Monocytes % Eosinophils % Basophils % Nucleated RBC % % Absolute Neutrophils (1.2-6.7) 10^3/uL Absolute Lymphocytes (1.2-3.4) 10^3/uL Absolute Monocytes (0.1-0.8) 10^3/uL Absolute Eosinophils (0.0-0.7) 10^3/uL Absolute Basophils (0.0-0.2) 10^3/uL Sodium (136-145) mmol/L Potassium (3.5-5.1) mmol/L Chloride (98-107) mmol/L Carbon Dioxide (21.0-32.0) mmol/L Anion Gap (3-11) mmol/L BUN (7-18) mg/dL Creatinine (0.55-1.02) mg/dL Estimated GFR/1.73 m2 (mL/min/1.73m2) Glucose (74-106) mg/dL Calcium (8.5-10.1) mg/dL Total Bilirubin (0.2-1.0) mg/dL AST (15-37) U/L ALT (14-59) U/L Alkaline Phosphatase (46-116) U/L Ammonia (11-32) umol/L 15 Troponin I (<0.06) ng/mL Total Protein (6.4-8.2) g/dL Albumin (3.4-5.0) g/dL TSH (0.36-3.74) uIU/mL Urine Color (Yellow) Yellow Urine Clarity (Clear) Clear Urine pH (5-8) 7.0 Ur Specific Albin (1.005-1.025) 1.020 Urine Protein (Negative) mg/dL Negative Urine Ketones (Negative) mg/dL Negative Urine Blood (Negative) Negative Urine Nitrite (Negative) Negative Urine Bilirubin (Negative) Negative Urine Urobilinogen (Up TO 0.2) EU/dL 0.2 Ur Leukocyte Esterase (Negative) Negative Urine Glucose (Negative) mg/dL Negative HPI General Mode of arrival: EMS . Date/Time Provider Initiated Documentation: 02/16/21 09:04 . Limitations to Documentation: no limitations . Information obtained by: EMS . 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 Patient has had some alteration of mental status with past few days and has been eating and drinking less than usual. Nondiagnostic labs including urinalysis performed yesterday. Patient sent for further evaluation. Patient has no complaints. She denies pain. No modifiers. Patient denies associated headache, denies fever, denies cough, denies dysuria, denies abdominal pain. Related Data Home Medications Medication Instructions Recorded Confirmed donepezil [Aricept] 10 mg PO HS 07/04/18 02/16/21 methimazole 5 mg PO DAILY 07/04/18 02/16/21 acetaminophen 650 mg PO TID PRN PRN 09/30/18 02/16/21 amlodipine 5 mg PO DAILY 09/30/18 02/16/21 ascorbic acid (vitamin C) [Vitamin 500 mg PO BID 09/30/18 02/16/21 C] folic acid 1 mg PO DAILY 09/30/18 02/16/21 imipramine HCl 25 mg PO HS 09/30/18 02/16/21 Calcium 600 with Vitamin D3 1 tab PO BID 01/16/20 02/16/21 clonazepam 1 mg PO TID 01/16/20 02/16/21 escitalopram oxalate 5 mg PO DAILY 01/16/20 02/16/21 magnesium oxide 400 mg PO DAILY 01/16/20 02/16/21 potassium chloride [Klor-Con M10] 30 meq PO DAILY 01/16/20 02/16/21 Floranex 1 packet PO TID 01/17/20 02/16/21 Refresh Plus 1 ea OU DAILY PRN PRN 01/17/20 02/16/21 ferrous sulfate 325 mg PO BID 01/17/20 02/16/21 olanzapine 15 mg PO HS 01/17/20 02/16/21 guaifenesin 200 mg PO Q6H PRN 04/16/20 02/16/21 omeprazole 20 mg PO DAILY 04/16/20 02/16/21 cholestyramine (with sugar) 1 packet PO DAILY 08/01/20 02/16/21 furosemide 60 mg PO .1400 DAILY 02/16/21 02/16/21 furosemide 80 mg PO DAILY 02/16/21 nystatin 1 applic TOPICAL DAILY PRN PRN 02/16/21 02/16/21 sumatriptan succinate 50 mg PO PRN PRN 02/16/21 02/16/21 Allergies Allergy/AdvReac Type Severity Reaction Status Date / Time Sulfa (Sulfonamide Allergy Mild Skin Rash Verified 04/16/20 22:10 Antibiotics) General Stated Complaint: AMS/LOC TIFFANY: 2 Review of Systems All systems reviewed & are unremarkable except as noted in HPI and below Constitutional Constitutional: Denies fever(s) Respiratory Respiratory: Denies cough PFSH Medical History Aspiration pneumonia Asthma Catatonia associated with another mental disorder Cholestasis Chronic diastolic CHF (congestive heart failure) Cirrhosis Cognitive developmental delay Dysphagia Esophageal dysmotility [place] 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 [place] [facility] H/O oophorectomy History of bilateral tubal ligation History of hernia repair Social History Smoking/Tobacco Use Status: Never Smoking risk assessment performed?: Yes Alcohol Intake: never Drug use: Never Substance use type: does not use Household members: none Do you feel safe at home: Yes Do you feel safe in your relationship?: Yes Additional Social history: Resident @ [employer] [facility] [employer] Exam Const General: cooperative and no acute distress HENMT Head: normocephalic and atraumatic Mouth: mucous membranes dry Throat: posterior oropharynx normal Eyes Conjunctivae: normal conjunctivae Sclera: normal sclerae EOM: EOM intact bilaterally Neck Neck: trachea midline and supple Resp Auscultation: clear to auscultation bilaterally, no rales, no rhonchi and no wheezes Cardio Rate: tachycardic Rhythm: regular rhythm Heart Sounds: no murmurs GI Palpation: soft, not firm, no guarding, no masses, not rigid and nontender Other: Midline lower abdominal mass that patient notes is chronic cyst, nontender nonpulsatile Skin General skin exam: no rashes or lesions noted Neuro General: patient alert, patient awake, patient oriented x3, oriented Patient Orientation: Person, Place and Time (Month) and tone normal Other: Generalized weakness Extrem General: no edema Psych Appearance: grossly normal Affect: blunted Attitude: cooperative Course Vital Signs Vital signs: Vital Signs Temperature 36.7 C 02/16/21 09:02 Pulse 110 H 02/16/21 09:02 Respiratory Rate 22 02/16/21 09:02 Blood Pressure 129/91 H 02/16/21 09:02 Pulse Oximetry 92 02/16/21 09:02 Temperature 36.7 C 02/16/21 09:02 Temperature Source Temporal Artery Scan 02/16/21 09:02 Pulse 110 H 02/16/21 09:02 Respiratory Rate 22 02/16/21 09:02 Respiratory Effort Non-Labored 02/16/21 09:08 Blood Pressure 129/91 H 02/16/21 09:02 Blood Pressure Position Supine 02/16/21 09:02 Pulse Oximetry 92 02/16/21 09:02 Oxygen Delivery Method Room Air 02/16/21 09:02 Oxygen Flow Rate 0 02/16/21 09:02 Pain Level 0 02/16/21 09:02 Lab/Test Results Lab/Test Results: Laboratory Tests Range/Units 02/16/21 09:20 WBC (4.4-10.8) 10^3/uL 11.59 H RBC (3.93-5.22) 10^6/uL 5.76 H Hgb (11.2-15.7) g/dL 16.2 H Hct (36.0-46.0) % 53.0 H MCV (80-95) fL 92.0 MCH (27.0-33.0) pg 28.1 MCHC (32.0-36.0) % 30.6 L RDW (11.7-14.6) % 13.7 Plt Count (130-400) 10^3/uL 299 MPV (8.0-11.0) fL 10.9 Immature Gran % 0.2 Neutrophils % 74.6 Lymphocytes % 15.0 Monocytes % 8.2 Eosinophils % 1.6 Basophils % 0.4 Nucleated RBC % % 0 Absolute Neutrophils (1.2-6.7) 10^3/uL 8.65 H Absolute Lymphocytes (1.2-3.4) 10^3/uL 1.74 Absolute Monocytes (0.1-0.8) 10^3/uL 0.95 H Absolute Eosinophils (0.0-0.7) 10^3/uL 0.19 Absolute Basophils (0.0-0.2) 10^3/uL 0.05
--- NOTE | 2021-02-16 09:45 | DI.RAD_ITS ---
Exam(s) XR CHEST 2V PA LATERAL EXAM: XR CHEST 2V PA LATERAL CLINICAL HISTORY: altered mentation. TECHNIQUE: 2D digital imaging was performed. COMPARISON: CR XR CHEST 2V PA LATERAL from 01/31/2021 FINDINGS: Heart size is slightly prominent. The mediastinum is not widened. Left lung appears clear. Increased density noted over entire right lung field when compared to the l eft side. No pleural effusions evident. Platelike atelectasis in the right lung base noted. IMPRESSION: Different densities over the mike thoraces. Rings to mind possibility of relative hypoperfusion of t he left lung field which can be seen with pulmonary emboli. If clinically indicated pulmonary embolu s protocol CT scan can be performed. DATA REPOSITORY: RADIATION DOSE DELIVERED:
[2021-02-16 09:46] LABS: ALT 86 U/L (14-59); AST 38 U/L (15-37); Albumin 3.5 g/dL (3.4-5.0); Alkaline Phosphatase 112 U/L (46-116); Anion Gap 7.4 mmol/L (3-11); BUN 13 mg/dL (7-18); Bilirubin, Total 0.3 mg/dL (0.2-1.0); CO2 33.6 mmol/L (21.0-32.0); CREATININE 0.8 mg/dL (0.55-1.02); Calcium 9.7 mg/dL (8.5-10.1); Chloride 105 mmol/L (98-107); Glucose 116 mg/dL (74-106); Potassium 3.6 mmol/L (3.5-5.1); Sodium 146 mmol/L (136-145); Total Protein 7.7 g/dL (6.4-8.2)
[2021-02-16 09:53] LABS: TSH (W/Ref FT4) 1.15 uIU/mL (0.36-3.74)
[2021-02-16 10:00] LABS: Troponin I < 0.05 ng/mL (<0.06)
[2021-02-16] MEDS: Normal Saline Flush 10 ML SYR IVP (10:10)
[2021-02-16] MEDS: Normal Saline 250 ML IV (10:10)
[2021-02-16 10:17] LABS: Bilirubin Negative (Negative); Blood Negative (Negative); Clarity Clear (Clear); Glucose Negative (Negative); Ketones Negative (Negative); Leukocyte Esterase Negative (Negative); Nitrite Negative (Negative); Urobilinogen 0.2 EU/dL (Up TO 0.2)
--- NOTE | 2021-02-16 11:45 | DI.CT_ITS ---
Exam(s) CT CHEST PE CTA EXAM: CT CHEST PE CTA CLINICAL HISTORY: abnormal chest xray, altered mentation, tachycardi. TECHNIQUE: Imaging Protocol: CT angiography of the chest was performed using pulmonary embolus nesha col. Multi planar reconstructions were performed. CONTRAST MATERIAL: Intravenous: Omnipaque 350 Contrast volume: 100 cc COMPARISON: CT CT CHEST/ABD/PEL W from 01/16/[address] CHEST/ABD/PEL W from 01/16/2020 CR XR CHEST 2V PA LATERAL from 02/16/2021 CR XR CHEST 2V PA LATERAL from 02/16/2021 FINDINGS: CHEST: Images somewhat degraded by motion artifact PULMONARY ARTERIES: There are no intraluminal filling defects to suggest acute pulmonary emboli. LUNGS: There are no confluent pulmonary infiltrates nor pleural effusions. No obvious discrete nodul es in either lung field.. MEDIASTINUM: There is no hilar nor mediastinal adenopathy. Visualized thyroid unremarkable. CARDIAC: Heart size is upper normal. There is no pericardial effusion.Caliber of the thoracic aorta is within normal limits. No evidence of dissection. There is no significant shift of the interventri cular septum. PARTIALLY VISUALIZED UPPERMOST ABDOMEN: Right adrenal gland appears unremarkable. There is a nodule in the left adrenal gland measuring 1.6 by 1.4 cm. This appears unchanged from abdominal CT scan of December 2019. OSSEOUS: No significant osseous lesions.. IMPRESSION: 1. No evidence of acute pulmonary emboli. No evidence of pulmonary infarction.No pleural effusions. 2. No confluent infiltrates. No intrathoracic adenopathy 3. Stable small left adrenal nodule. RADIATION DOSE DELIVERED: 668.09mGy.cm Total DLP DATA REPOSITORY: All CT scans at this facility are submitted to the National Radiology Data Registry (NRDR) Dose Index Registry (DIR) with the [employer] (A[employer]). RADIATION OPTIMIZATION: All CT scans at this facility use at least one of these dose optimization te chniques: automated exposure control; mA and/or kV adjustment per patient size (includes targeted exa ms where dose is matched to clinical indication); or iterative reconstruction.
[2021-02-16] MEDS: Omnipaque 350 MG/ML 100 ML BTL IJ (12:22)
[2021-02-16 12:46] LABS: Ammonia 15 umol/L (11-32)
== END 2021-02-16 14:24 | disposition skilled nursing facility (03) ==
PROVIDERS: Emergency Provider Student in an Organized Health Care Education/Training Program; PCP Family Medicine
DX: E86.0 Dehydration (principal); R00.0 Tachycardia, unspecified; E03.9 Hypothyroidism, unspecified; I50.32 Chronic diastolic (congestive) heart failure; E11.9 Type 2 diabetes mellitus without complications
CPT/HCPCS: 36415; 71275; 80053; 96360; 96361; 99285; 71046; 81003; 82140; 84443; 84484; 85025; J3490

== ENCOUNTER 2021-02-21 17:18 | Outpatient (REF) | payer MEDICARE, MEDICAID, SELFPAY ==
[2021-02-21 17:56] LABS: Abs Immature Grans 0.02 10^3/uL (0.0-0.06); Absolute Basophil Count 0.04 10^3/uL (0.0-0.2); Absolute Eosinophil Count 0.17 10^3/uL (0.0-0.7); Absolute Lymphocyte Count 1.54 10^3/uL (1.2-3.4); Absolute Monocyte Count 0.66 10^3/uL (0.1-0.8); Absolute Neutrophil Count 8.04 10^3/uL (1.2-6.7); Basophils % 0.4; Eosinophils % 1.6; HCT 52.2 % (36.0-46.0); HGB 15.9 g/dL (11.2-15.7); Immature Grans % 0.2; Lymphocytes % 14.7; MCHC 30.5 % (32.0-36.0); MCV 92.1 fL (80-95); Monocytes % 6.3; Neutrophils % 76.8; Nucleated RBC 0 %; Platelet Count 277 10^3/uL (130-400); RBC 5.67 10^6/uL (3.93-5.22); RDW 13.6 % (11.7-14.6); RDW-SD 46.5 fL; WBC 10.47 10^3/uL (4.4-10.8)
[2021-02-21 18:04] LABS: Anion Gap 7.2 mmol/L (3-11); BUN 11 mg/dL (7-18); CO2 32.8 mmol/L (21.0-32.0); CREATININE 0.8 mg/dL (0.55-1.02); Calcium 8.7 mg/dL (8.5-10.1); Chloride 105 mmol/L (98-107); Glucose 161 mg/dL (74-106); Potassium 3.5 mmol/L (3.5-5.1); Sodium 145 mmol/L (136-145)
[2021-02-23 01:18] LABS: Vitamin D 25 Total 33.8 ng/mL (30-100)
[2021-02-23 09:39] LABS: Parathyroid Hormone,Intact 159 pg/mL (19-88)
== END 2021-02-21 17:19 | disposition home or self-care (01) ==
LOC: LBN 17:18
PROVIDERS: PCP Family Medicine; Visit Provider Nurse Practitioner Gerontology
DX: F25.1 Schizoaffective disorder, depressive type (principal); E83.42 Hypomagnesemia; M62.81 Muscle weakness (generalized); E55.9 Vitamin D deficiency, unspecified
CPT/HCPCS: 80048; 82306; 83970; 85025

== ENCOUNTER 2021-02-26 15:56 | Outpatient (REF) | payer MEDICARE, MEDICAID, SELFPAY ==
[2021-02-26 16:13] LABS: Abs Immature Grans 0.04 10^3/uL (0.0-0.06); Absolute Basophil Count 0.05 10^3/uL (0.0-0.2); Absolute Lymphocyte Count 1.91 10^3/uL (1.2-3.4); Absolute Monocyte Count 1.01 10^3/uL (0.1-0.8); Absolute Neutrophil Count 9.99 10^3/uL (1.2-6.7); Basophils % 0.4; Eosinophils % 0.8; Immature Grans % 0.3; Lymphocytes % 14.6; MCH 28.1 pg (27.0-33.0); MCV 90.6 fL (80-95); MPV 11.6 fL (8.0-11.0); Monocytes % 7.7; Neutrophils % 76.2; Nucleated RBC 0 %; Platelet Count 315 10^3/uL (130-400); RDW 13.3 % (11.7-14.6); RDW-SD 44.7 fL; WBC 13.11 10^3/uL (4.4-10.8)
[2021-02-26 16:39] LABS: ALT 61 U/L (14-59); AST 30 U/L (15-37); Albumin 3.9 g/dL (3.4-5.0); Alkaline Phosphatase 121 U/L (46-116); BUN 11 mg/dL (7-18); Bilirubin, Total 0.4 mg/dL (0.2-1.0); CREATININE 0.7 mg/dL (0.55-1.02); Calcium 9.4 mg/dL (8.5-10.1); Chloride 102 mmol/L (98-107); Glucose 117 mg/dL (74-106); Potassium 3.2 mmol/L (3.5-5.1); Sodium 143 mmol/L (136-145); Total Protein 7.7 g/dL (6.4-8.2)
[2021-02-26 17:25] LABS: Diff Comment RBC Morph Reviewed; HCT 55.1 % (36.0-46.0); HGB 17.1 g/dL (11.2-15.7); RBC 6.08 10^6/uL (3.93-5.22); RBC Morphology Normal
== END 2021-02-26 15:57 | disposition home or self-care (01) ==
LOC: LBN 15:56
PROVIDERS: PCP Family Medicine; Visit Provider Nurse Practitioner Gerontology
DX: M62.81 Muscle weakness (generalized) (principal); E03.8 Other specified hypothyroidism; F25.1 Schizoaffective disorder, depressive type
CPT/HCPCS: 80053; 85025

== ENCOUNTER 2021-02-28 17:13 | Outpatient (REF) | payer MEDICARE, MEDICAID, SELFPAY ==
[2021-02-28 17:44] LABS: Abs Immature Grans 0.02 10^3/uL (0.0-0.06); Absolute Basophil Count 0.07 10^3/uL (0.0-0.2); Absolute Eosinophil Count 0.29 10^3/uL (0.0-0.7); Absolute Lymphocyte Count 1.78 10^3/uL (1.2-3.4); Absolute Monocyte Count 0.86 10^3/uL (0.1-0.8); Absolute Neutrophil Count 5.83 10^3/uL (1.2-6.7); Basophils % 0.8; Eosinophils % 3.3; HCT 53.3 % (36.0-46.0); HGB 16.3 g/dL (11.2-15.7); Immature Grans % 0.2; Lymphocytes % 20.1; MCHC 30.6 % (32.0-36.0); MCV 91.4 fL (80-95); MPV 12.1 fL (8.0-11.0); Monocytes % 9.7; Neutrophils % 65.9; Nucleated RBC 0 %; Platelet Count 294 10^3/uL (130-400); RBC 5.83 10^6/uL (3.93-5.22); RDW 13.4 % (11.7-14.6); RDW-SD 45.1 fL; WBC 8.85 10^3/uL (4.4-10.8)
[2021-02-28 17:46] LABS: ESR 48 mm/hr (0-30)
[2021-02-28 18:31] LABS: ALT 55 U/L (14-59); AST 35 U/L (15-37); Albumin 3.5 g/dL (3.4-5.0); Alkaline Phosphatase 112 U/L (46-116); Anion Gap 10.3 mmol/L (3-11); BUN 11 mg/dL (7-18); Bilirubin, Total 0.4 mg/dL (0.2-1.0); C-Reactive Protein 2.35 mg/dL (0.0-0.3); CO2 31.7 mmol/L (21.0-32.0); CREATININE 0.8 mg/dL (0.55-1.02); Calcium 9.3 mg/dL (8.5-10.1); Chloride 101 mmol/L (98-107); Glucose 137 mg/dL (74-106); PHOSPHORUS 3.9 mg/dL (2.6-4.7); Potassium 3.3 mmol/L (3.5-5.1); Sodium 143 mmol/L (136-145); Total Protein 7.1 g/dL (6.4-8.2)
[2021-02-28 18:48] LABS: Bilirubin Negative (Negative); Blood Negative (Negative); Clarity Sl Cloudy (Clear); Glucose Negative (Negative); Ketones Trace mg/dL (Negative); Leukocyte Esterase Small (Negative); Nitrite Negative (Negative); Urobilinogen 0.2 EU/dL (Up TO 0.2)
[2021-02-28 18:49] LABS: Iron 90 ug/dL (50-170)
[2021-02-28 18:50] LABS: C & S Indicated? C&S Done As Ordered
[2021-02-28 19:03] LABS: Bacteria Packed HPF (Negative); Crystals Negative HPF (Negative); Epithelial Cells Negative HPF (Negative); Mucus Negative (Negative); RBC Negative HPF (0-2); WBC >50 HPF (0-5)
[2021-03-01 17:36] LABS: AFP Tumor Marker 2.8 ng/mL (<8.1)
[2021-03-01 18:04] LABS: Prolactin 36.1 ng/mL (See Table)
[2021-03-02 01:35] LABS: Vitamin D 25 Total 35.8 ng/mL (30-100)
[2021-03-02 10:05] LABS: Parathyroid Hormone,Intact 164 pg/mL (19-88)
== END 2021-02-28 17:14 | disposition home or self-care (01) ==
LOC: LBN 17:13
PROVIDERS: PCP Family Medicine; Visit Provider Nurse Practitioner Gerontology
DX: N39.0 Urinary tract infection, site not specified (principal); R41.0 Disorientation, unspecified; F25.1 Schizoaffective disorder, depressive type; E83.42 Hypomagnesemia; M62.81 Muscle weakness (generalized); E55.9 Vitamin D deficiency, unspecified; E11.9 Type 2 diabetes mellitus without complications
CPT/HCPCS: 80053; 82306; 85652; 81003; 81015; 82105; 83540; 83970; 84100; 84146; 85025; 86140; 87086

== ENCOUNTER 2021-03-07 02:18 | Outpatient (CLI) | payer MEDICARE, MEDICAID, SELFPAY ==
--- NOTE | 2021-03-07 | DI.US_ITS ---
Exam(s) US ABDOMEN EXAM: US ABDOMEN CLINICAL HISTORY: H/O GB CA,POSSIBLE PAIN,STOMACH ENLARGING TECHNIQUE: Ultrasound abdomen performed using standard protocol. COMPARISON: CT CT CHEST/ABD/PEL W from 01/16/[address] CHEST PE CTA from 02/16/[address] CHEST PE CTA from 02/16/2021 FINDINGS: Exam is limited by patient body habitus and limited breath-holding ability. LIVER: Mild fatty infiltration.. No focal liver lesions are seen.. GALLBLADDER: A 1.9 centimeter stone is noted within a contracted gallbladder. No evidence of wall th ickening. No pericholecystic fluid identified. HOLGUIN'S SIGN: Negative. BILIARY SYSTEM: No intrahepatic or extrahepatic biliary ductal dilation. KIDNEYS: Kidneys are symmetric in size. No evidence of renal calculi. No evidence of hydronephrosis. No renal mass or cyst identified. PANCREAS: Normal where visualized. SPLEEN: Not enlarged. ABDOMINAL AORTA AND IVC: Visualized portions normal caliber. ASCITES: None seen. IMPRESSION: Limited exam due to patient body habitus. The gallbladder is contracted and contains a 1.9 centimete r stone. DATA REPOSITORY:
== END 2021-03-07 02:38 ==
PROVIDERS: PCP Family Medicine; Visit Provider Nurse Practitioner Gerontology
DX: K31.89 Other diseases of stomach and duodenum (principal); Z85.09 Personal history of malignant neoplasm of other digestive organs; K80.20 Calculus of gallbladder without cholecystitis without obstruction
CPT/HCPCS: 76700

== ENCOUNTER 2021-03-07 16:05 | Outpatient (REF) | payer MEDICARE, MEDICAID, SELFPAY ==
[2021-03-07 17:50] LABS: Bilirubin Negative (Negative); Blood Negative (Negative); Clarity Clear (Clear); Glucose Negative (Negative); Ketones Negative (Negative); Leukocyte Esterase Small (Negative); Nitrite Negative (Negative); Specific Gravity >= 1.030 (1.005-1.025); Urobilinogen 0.2 EU/dL (Up TO 0.2); pH 5.5 (5-8)
[2021-03-07 18:20] LABS: Bacteria Many HPF (Negative); Crystals Negative HPF (Negative); Epithelial Cells Negative HPF (Negative); Mucus Negative (Negative); Other Cells Negative (Negative); RBC Negative HPF (0-2); WBC >50 HPF (0-5)
[2021-03-07 18:21] LABS: C & S Indicated? C&S Done As Ordered; Casts Negative LPF (Negative)
== END 2021-03-07 16:06 | disposition home or self-care (01) ==
LOC: LBN 16:05
PROVIDERS: PCP Family Medicine; Visit Provider Internal Medicine
DX: N39.0 Urinary tract infection, site not specified (principal); R41.0 Disorientation, unspecified
CPT/HCPCS: 87077; 81003; 81015; 87086; 87186

== ENCOUNTER 2021-03-15 02:05 | Outpatient (CLI) | payer MEDICARE, MEDICAID, SELFPAY ==
--- NOTE | 2021-03-15 | DI.CT_ITS ---
Exam(s) CT HEAD WO/W EXAM: CT HEAD WO/W CLINICAL HISTORY: BEHAVIOR CHANGES, MEMORY LOSS. TECHNIQUE: Imaging Protocol: Both noninfused and contrast infused CT scans of the brain were perform ed. IV Contrast Dose =100 cc Axial computed tomography images with coronal and sagittal reformatted images were created and review ed COMPARISON: CT CT HEAD WO from 07/13/2018 FINDINGS: There are no skull fractures nor fluid in the visualized paranasal sinuses. There is no evidence of intracranial hemorrhage, mass effect, or shift of midline structures. There are no extra-axial fluid collections. The ventricles are not enlarged or shifted and there is no blo od within the ventricular system nor within the basal cisterns. There are no ring enhancing lesions in the brain and there is no abnormal meningeal enhancement, foca l or diffuse. No obvious aneurysms. Mild symmetrical atrophy which appears unchanged from the prior study of 2019 IMPRESSION: No significant intracranial findings. No significant enhancing intracranial findings. RADIATION DOSE DELIVERED: 1,666.55mGy.cm Total DLP DATA REPOSITORY: All CT scans at this facility are submitted to the National Radiology Data Registry (NRDR) Dose Index Registry (DIR) with the [employer] (ACR). RADIATION OPTIMIZATION: All CT scans at this facility use at least one of these dose optimization te chniques: automated exposure control; mA and/or kV adjustment per patient size (includes targeted exa ms where dose is matched to clinical indication); or iterative reconstruction.
[2021-03-15] MEDS: Omnipaque 350 MG/ML 100 ML BTL IJ (11:59)
== END 2021-03-15 02:25 ==
PROVIDERS: PCP Family Medicine; Visit Provider Family Medicine
DX: R46.89 Other symptoms and signs involving appearance and behavior (principal)
CPT/HCPCS: 70470; J3490

== ENCOUNTER 2021-03-15 06:27 | Emergency (ER) | payer MEDICARE, MEDICAID, SELFPAY ==
[2021-03-15] VITALS (34 sets, daily range): BP systolic 121–157; BP diastolic 100–112; PULSE 102–179; RESP 1–28; TEMP 36.3; O2SAT 89–100
--- NOTE | 2021-03-15 07:00 | RT.EKG_ITS ---
APPROVED REPORT Exam: Resting ECG Reason for Exam: sob Patient Location: E HR:106 bpm ECG Measurements Heart Rate 106 AXIS [place] 145 P 61 QRSd 95 QRS 95 QT 337 T 3 QTc 447 Conclusion Sinus tachycardia...rate> 99 Right axis deviation...QRS axis ( 91,269). Sinus. No STEMI. I have reviewed and interpreted ECG and agree with software generated interpretation.
[2021-03-15 07:32] LABS: Source Nasal/Nares
[2021-03-15 07:34] LABS: Abs Immature Grans 0.04 10^3/uL (0.0-0.06); Absolute Basophil Count 0.06 10^3/uL (0.0-0.2); Absolute Eosinophil Count 0.38 10^3/uL (0.0-0.7); Absolute Lymphocyte Count 1.85 10^3/uL (1.2-3.4); Absolute Monocyte Count 0.93 10^3/uL (0.1-0.8); Absolute Neutrophil Count 7.36 10^3/uL (1.2-6.7); Basophils % 0.6; Eosinophils % 3.6; HCT 48.7 % (36.0-46.0); HGB 14.7 g/dL (11.2-15.7); Immature Grans % 0.4; Lymphocytes % 17.4; MCH 28.3 pg (27.0-33.0); MCHC 30.2 % (32.0-36.0); MCV 93.8 fL (80-95); MPV 10.9 fL (8.0-11.0); Monocytes % 8.8; Neutrophils % 69.2; Nucleated RBC 0 %; Platelet Count 305 10^3/uL (130-400); RBC 5.19 10^6/uL (3.93-5.22); RDW 13.4 % (11.7-14.6); RDW-SD 46.6 fL; WBC 10.62 10^3/uL (4.4-10.8)
[2021-03-15 07:40] LABS: BE (Venous) 12 mmol/L (-2-3); HCO3 (Venous) 39 mmol/L (23-28); O2 Sat (Venous) 71 %; TCO2 (Venous) 41 mmol/l (24-29); pH (Venous) 7.29 (7.31-7.41); pO2 (Venous) 44 mmHg
[2021-03-15 07:42] LABS: pCO2 (Venous) 81 mmHg (41-51)
--- NOTE | 2021-03-15 07:45 | DI.RAD_ITS ---
Exam(s) XR PORTABLE CHEST AP EXAM: XR PORTABLE CHEST AP CLINICAL HISTORY: cough, sob, r/o acute disease. TECHNIQUE: 2D digital imaging was performed. COMPARISON: CR XR CHEST 2V PA LATERAL from 02/16/2021 FINDINGS: Heart size is upper normal. The mediastinum is not widened. Lungs are clear. No infiltrates nor obvious pleural effusions. Chest leads in place IMPRESSION: No acute pulmonary findings on this single AP portable view of the chest. DATA REPOSITORY: RADIATION DOSE DELIVERED: All CT scans at this facility use at least one of these dose optimization techniques: automated exposure control; mA and/or kV adjustment per patient size (includes targeted e xams where dose is matched to clinical indication); or iterative reconstruction.
--- NOTE | 2021-03-15 07:45 | W.ED.GENAD ---
Discharge Plan Disposition Patient Disposition: HOME Condition: Improving Discharge Details Clinical Impression: Acute asthmatic bronchitis Primary Care Provider: Ann Marie Roa ED Provider: Shayna Boateng Home Meds and New Rx's Prescriptions: New prednisone 20 mg tablet See Rx Instructions .ROUTE .COMPLEX Qty: 12 RF: 0 albuterol sulfate 90 mcg/actuation aerosol powdr breath activated 2 inh IH Q6H PRN (Reason: shortness of breath or wheezing) Qty: 1 RF: 0 benzonatate [Tessalon Perles] 100 mg capsule 100 mg PO TID PRN (Reason: cough) Qty: 14 RF: 0 Continued potassium chloride [Klor-Con M10] 10 mEq tablet,ER particles/crystals 30 meq PO BID RF: 0 magnesium oxide 400 mg (241.3 mg magnesium) Tablet 400 mg PO DAILY RF: 0 escitalopram oxalate 5 mg tablet 5 mg PO DAILY RF: 0 Calcium 600 with Vitamin D3 600 mg(1,500mg) -400 unit Tablet,Chewable 1 tab PO BID RF: 0 clonazepam 1 mg tablet 1 mg PO TID RF: 0 ferrous sulfate 325 mg (65 mg iron) Tablet 325 mg PO BID RF: 0 olanzapine 15 mg tablet 15 mg PO HS RF: 0 Floranex 100 million cell Granules In Packet 1 packet PO TID RF: 0 Refresh Plus 0.5 % dropperette 1 ea OU DAILY PRN PRN (Reason: Dry Eyes) RF: 0 omeprazole 20 mg Capsule,Delayed Release(Dr/Ec) 20 mg PO DAILY RF: 0 guaifenesin 100 mg/5 mL Syrup 200 mg PO Q6H PRNRF: 0 cholestyramine (with sugar) 4 gram powder in packet 1 packet PO DAILY RF: 0 donepezil [Aricept] 10 mg Tablet 10 mg PO HS RF: 0 methimazole 5 mg Tablet 5 mg PO DAILY RF: 0 acetaminophen 325 mg Tablet 650 mg PO TID PRN PRN (Reason: Pain) RF: 0 amlodipine 5 mg tablet 5 mg PO DAILY RF: 0 ascorbic acid (vitamin C) [Vitamin C] 500 mg tablet 500 mg PO BID RF: 0 folic acid 1 mg tablet 1 mg PO DAILY RF: 0 imipramine HCl 25 mg tablet 25 mg PO HS RF: 0 furosemide 80 mg tablet 80 mg PO DAILY RF: 0 furosemide 20 mg tablet 60 mg PO .1400 DAILY RF: 0 sumatriptan succinate 50 mg Tablet 50 mg PO PRN PRNRF: 0 nystatin 100,000 unit/gram powder 1 applic TOPICAL DAILY PRN PRNRF: 0 Discharge Instructions Instructions: Acute Bronchitis (ED) Additional Instructions: You can use 1 to 2 L of nasal cannula as needed to keep your oxygen saturation above 90%. Drink plenty of fluids and get plenty of rest. You were given prescriptions for steroids, and albuterol inhaler and cough medication. Take the steroids as directed until finished. Use the albuterol inhaler and take the cough medication as needed and directed. Follow-up with your primary care doctor in 1 week. Return to the emergency department with any worsening or new concerning symptoms. Discharge Data Discharge Physician: Shayna Boateng Medical Decision Making 65-year-old female from the [facility] with a history of polycythemia, CHF, obesity, cirrhosis, GERD, schizophrenia, hypertension, Parkinson's disease, and Graves' disease presents for cough, wheezing and shortness of breath this morning. Heart rate 110s. Oxygen saturation 99% on 2 L, decreased to 91% on room air. She has scattered wheezing throughout. She appears in no acute respiratory distress. Differential diagnosis includes bronchitis, CHF exacerbation, pneumonia, electrolyte abnormality, arrhythmia, COVID-19, dehydration. Screening labs ordered on arrival. We will add DuoNeb, Solu-Medrol, chest x-ray and reassess. Labs and imaging reviewed. Normal white blood cell count. VBG notes a pH of 7.29, PCO2 81, bicarb 39 consistent with respiratory acidosis with compensation. Patient has had similar 81 evaluated in the past. Negative troponin. Normal BNP. Covid negative. Chest x-ray negative. Patient reassessed and she feels much better. Oxygen saturation 91% on RA. Will give another neb treatment and repeat VBG. Repeat VBG notes now normalized pH with improvement in PCO2 from 81 down to 65. Patient continues to states she feels much better and feels good to go back to the [facility]. Will treat with steroids, albuterol inhaler and Tessalon Perles. Radiology department called to state that patient has an outpatient CT scan ordered for this afternoon for recent altered mental status. Will obtain is here while she is in the hospital so she does not have to be brought back at this afternoon. Patient is awake and alert, without focal deficits and at her mental status baseline at present. Advised to follow up with the primary care doctor for re-evaluation. Usual and customary return precautions given prior to discharge. Medical Records Medical records reviewed: Yes I reviewed the patient's medical records. Imaging Data Radiologic Study: Radiologist's impression: XR PORTABLE CHEST AP CLINICAL HISTORY: cough, sob, r/o acute disease. TECHNIQUE: 2D digital imaging was performed. COMPARISON: CR XR CHEST 2V PA LATERAL from 02/16/2021 FINDINGS: Heart size is upper normal. The mediastinum is not widened. Lungs are clear. No infiltrates nor obvious pleural effusions. Chest leads in place IMPRESSION: No acute pulmonary findings on this single AP portable view of the chest. Lab Data Lab results reviewed: Yes I reviewed the patient's lab results. Labs: 03/15/21 07:55 Blood Blood Culture - Pending 03/15/21 07:06 Blood Blood Culture - Pending Laboratory Tests Range/Units 03/15/21 03/15/21 03/15/21 06:50 06:50 06:50 WBC (4.4-10.8) 10^3/uL 10.62 RBC (3.93-5.22) 10^6/uL 5.19 Hgb (11.2-15.7) g/dL 14.7 Hct (36.0-46.0) % 48.7 H MCV (80-95) fL 93.8 MCH (27.0-33.0) pg 28.3 MCHC (32.0-36.0) % 30.2 L RDW (11.7-14.6) % 13.4 Plt Count (130-400) 10^3/uL 305 MPV (8.0-11.0) fL 10.9 Immature Gran % 0.4 Neutrophils % 69.2 Lymphocytes % 17.4 Monocytes % 8.8 Eosinophils % 3.6 Basophils % 0.6 Nucleated RBC % % 0 Absolute Neutrophils (1.2-6.7) 10^3/uL 7.36 H Absolute Lymphocytes (1.2-3.4) 10^3/uL 1.85 Absolute Monocytes (0.1-0.8) 10^3/uL 0.93 H Absolute Eosinophils (0.0-0.7) 10^3/uL 0.38 Absolute Basophils (0.0-0.2) 10^3/uL 0.06 PT (9.3-11.0) sec 10.4 INR (0.9-1.1) 1.0 APTT (21.0-27.5) sec 26.7 VBG pH VBG pCO2 VBG pO2 VBG HCO3 VBG Total CO2 VBG O2 Saturation VBG Base Excess Sodium (136-145) mmol/L 144 Potassium (3.5-5.1) mmol/L 3.9 Chloride (98-107) mmol/L 104 Carbon Dioxide (21.0-32.0) mmol/L 38.3 H Anion Gap (3-11) mmol/L 1.7 L BUN (7-18) mg/dL 9 Creatinine (0.55-1.02) mg/dL 0.6 Estimated GFR/1.73 m2 (mL/min/1.73m2) >= 60.00 Glucose (74-106) mg/dL 109 H Calcium (8.5-10.1) mg/dL 9.1 Magnesium (1.8-2.4) mg/dL 1.9 Total Bilirubin (0.2-1.0) mg/dL 0.3 AST (15-37) U/L 16 ALT (14-59) U/L 38 Alkaline Phosphatase (46-116) U/L 121 H Troponin I (<0.06) ng/mL < 0.05 NT-Pro-B Natriuret Pep (<300) pg/mL 80 Total Protein (6.4-8.2) g/dL 7.1 Albumin (3.4-5.0) g/dL 3.1 L TSH (0.36-3.74) uIU/mL 1.48 COVID-19 Source SARS-CoV-2 (PCR) (Negative) Range/Units 03/15/21 03/15/21 03/15/21 07:06 07:25 07:27 WBC (4.4-10.8) 10^3/uL RBC (3.93-5.22) 10^6/uL Hgb (11.2-15.7) g/dL Hct (36.0-46.0) % MCV (80-95) fL MCH (27.0-33.0) pg MCHC (32.0-36.0) % RDW (11.7-14.6) % Plt Count (130-400) 10^3/uL MPV (8.0-11.0) fL Immature Gran % Neutrophils % Lymphocytes % Monocytes % Eosinophils % Basophils % Nucleated RBC % % Absolute Neutrophils (1.2-6.7) 10^3/uL Absolute Lymphocytes (1.2-3.4) 10^3/uL Absolute Monocytes (0.1-0.8) 10^3/uL Absolute Eosinophils (0.0-0.7) 10^3/uL Absolute Basophils (0.0-0.2) 10^3/uL PT (9.3-11.0) sec INR (0.9-1.1) APTT (21.0-27.5) sec VBG pH Cancelled 7.29 L VBG pCO2 Cancelled 81 H* VBG pO2 Cancelled 44 VBG HCO3 Cancelled 39 H VBG Total CO2 Cancelled 41 H VBG O2 Saturation Cancelled 71 VBG Base Excess Cancelled 12 H Sodium (136-145) mmol/L Potassium (3.5-5.1) mmol/L Chloride (98-107) mmol/L Carbon Dioxide (21.0-32.0) mmol/L Anion Gap (3-11) mmol/L BUN (7-18) mg/dL Creatinine (0.55-1.02) mg/dL Estimated GFR/1.73 m2 (mL/min/1.73m2) Glucose (74-106) mg/dL Calcium (8.5-10.1) mg/dL Magnesium (1.8-2.4) mg/dL Total Bilirubin (0.2-1.0) mg/dL AST (15-37) U/L ALT (14-59) U/L Alkaline Phosphatase (46-116) U/L Troponin I (<0.06) ng/mL NT-Pro-B Natriuret Pep (<300) pg/mL Total Protein (6.4-8.2) g/dL Albumin (3.4-5.0) g/dL TSH (0.36-3.74) uIU/mL COVID-19 Source Nasal/Nares SARS-CoV-2 (PCR) (Negative) Negative Range/Units 03/15/21 03/15/21 10:06 10:45 WBC (4.4-10.8) 10^3/uL RBC (3.93-5.22) 10^6/uL Hgb (11.2-15.7) g/dL Hct (36.0-46.0) % MCV (80-95) fL MCH (27.0-33.0) pg MCHC (32.0-36.0) % RDW (11.7-14.6) % Plt Count (130-400) 10^3/uL MPV (8.0-11.0) fL Immature Gran % Neutrophils % Lymphocytes % Monocytes % Eosinophils % Basophils % Nucleated RBC % % Absolute Neutrophils (1.2-6.7) 10^3/uL Absolute Lymphocytes (1.2-3.4) 10^3/uL Absolute Monocytes (0.1-0.8) 10^3/uL Absolute Eosinophils (0.0-0.7) 10^3/uL Absolute Basophils (0.0-0.2) 10^3/uL PT (9.3-11.0) sec INR (0.9-1.1) APTT (21.0-27.5) sec VBG pH 7.36 VBG pCO2 65 H* VBG pO2 79 VBG HCO3 37 H VBG Total CO2 33 H VBG O2 Saturation 95 VBG Base Excess 11 H Sodium (136-145) mmol/L Potassium (3.5-5.1) mmol/L Chloride (98-107) mmol/L Carbon Dioxide (21.0-32.0) mmol/L Anion Gap (3-11) mmol/L BUN (7-18) mg/dL Creatinine (0.55-1.02) mg/dL Estimated GFR/1.73 m2 (mL/min/1.73m2) Glucose (74-106) mg/dL Calcium (8.5-10.1) mg/dL Magnesium (1.8-2.4) mg/dL Total Bilirubin (0.2-1.0) mg/dL AST (15-37) U/L ALT (14-59) U/L Alkaline Phosphatase (46-116) U/L Troponin I (<0.06) ng/mL Cancelled NT-Pro-B Natriuret Pep (<300) pg/mL Total Protein (6.4-8.2) g/dL Albumin (3.4-5.0) g/dL TSH (0.36-3.74) uIU/mL COVID-19 Source SARS-CoV-2 (PCR) (Negative) ECG Data Attestation: I personally reviewed and interpreted this ECG (s) as follows: Interpretation: rate of 106, sinus, no acute ST elevation or depression. IL 145. QRS 95. QTc 447. HPI General Mode of arrival: EMS. Date/Time Provider Initiated Documentation: 03/15/21 06:58. Limitations to Documentation: no limitations. Information obtained by: patient. HPI Narrative: Patient is a 65-year-old female from the [facility] with a history of polycythemia, CHF, obesity, cirrhosis, GERD, anemia, asthma presents for increased cough and shortness of breath this morning. She states that staff at the [facility] noted that patient had wheezing this morning. Patient states she feels that she has a junky cough but has been unable to bring up any sputum. She denies any known fever, chest pain, nausea, vomiting, diarrhea, abdominal pain, dizziness. She has a history of chronic bilateral leg swelling but states this is no worse than usual. She states she has been eating and drinking normally. Related Data Home Medications Medication Instructions Recorded Confirmed donepezil [Aricept] 10 mg PO HS 07/04/18 03/15/21 methimazole 5 mg PO DAILY 07/04/18 03/15/21 acetaminophen 650 mg PO TID PRN PRN 09/30/18 03/15/21 amlodipine 5 mg PO DAILY 09/30/18 03/15/21 ascorbic acid (vitamin C) [Vitamin 500 mg PO BID 09/30/18 03/15/21 C] folic acid 1 mg PO DAILY 09/30/18 03/08/21 imipramine HCl 25 mg PO HS 09/30/18 03/15/21 Calcium 600 with Vitamin D3 1 tab PO BID 01/16/20 03/08/21 clonazepam 1 mg PO TID 01/16/20 03/08/21 escitalopram oxalate 5 mg PO DAILY 01/16/20 03/15/21 magnesium oxide 400 mg PO DAILY 01/16/20 03/08/21 Floranex 1 packet PO TID 01/17/20 03/15/21 Refresh Plus 1 ea OU DAILY PRN PRN 01/17/20 03/15/21 ferrous sulfate 325 mg PO BID 01/17/20 03/15/21 olanzapine 15 mg PO HS 01/17/20 03/08/21 guaifenesin 200 mg PO Q6H PRN 04/16/20 03/08/21 omeprazole 20 mg PO DAILY 04/16/20 03/15/21 cholestyramine (with sugar) 1 packet PO DAILY 08/01/20 03/15/21 furosemide 60 mg PO .1400 DAILY 02/16/21 03/15/21 furosemide 80 mg PO DAILY 02/16/21 03/15/21 nystatin 1 applic TOPICAL DAILY PRN PRN 02/16/21 03/08/21 sumatriptan succinate 50 mg PO PRN PRN 02/16/21 03/15/21 potassium chloride 10 mEq 30 meq PO BID tab 03/02/21 03/15/21 tablet,extended release(part/cryst) albuterol sulfate 2 inh IH Q6H PRN #1 each 03/15/21 benzonatate [Tessalon Perles] 100 mg PO TID PRN #14 cap 03/15/21 prednisone See Rx Instructions .ROUTE 03/15/21 .COMPLEX #12 tab Previous Rx's Medication Instructions Recorded albuterol sulfate 2 inh IH Q6H PRN #1 each 03/15/21 benzonatate [Tessalon Perles] 100 mg PO TID PRN #14 cap 03/15/21 prednisone See Rx Instructions .ROUTE 03/15/21 .COMPLEX #12 tab Allergies Allergy/AdvReac Type Severity Reaction Status Date / Time Sulfa (Sulfonamide Allergy Mild Skin Rash Verified 04/16/20 22:10 Antibiotics) General Stated Complaint: SOB TIFFANY: 2 Review of Systems All systems reviewed & are unremarkable except as noted in HPI and below Constitutional Constitutional: Reports as per HPI, Denies chills and Denies fever(s) Eyes Eyes: Denies blurry vision ENT Ears, Nose, Mouth, and Throat: Denies dizziness, Denies sore throat and Denies throat swelling Cardiovascular Cardiovascular: Denies chest pain and Reports dyspnea Respiratory Respiratory: Reports cough and Reports dyspnea Gastrointestinal Gastrointestinal: Denies abdominal pain, Denies diarrhea and Denies vomiting Genitourinary Genitourinary: Denies hematuria and Denies dysuria Musculoskeletal Musculoskeletal: Denies back pain and Denies numbness Integumentary/Breasts Skin/Breast: Denies lesions and Denies rash Neurologic Neurologic: Denies dizziness, Denies localized weakness and Denies numbness Allergic/Immunologic Allergic/Immunologic: Denies throat swelling [facility] Medical History Aspiration pneumonia Asthma Catatonia associated with another mental disorder Cholestasis Chronic diastolic CHF (congestive heart failure) Cirrhosis Cognitive developmental delay Dysphagia Esophageal dysmotility [place] 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 at [facility] on 08/25/2019 Gastric ulcer GERD (gastroesophageal reflux disease) Hypertension Hypothyroidism 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 Obesity, morbid, BMI 40.0-49.9 Palliative care patient Roxi Eatonbbertin Schatzki's ring of distal esophagus Schizophrenia Urinary retention UTI (urinary tract infection) Weakness on right side of face Surgical History H/O esophagogastroduodenoscopy and endoscopic ultrasound 08/2019 at [facility] H/O oophorectomy History of bilateral tubal ligation History of hernia repair Social History Smoking/Tobacco Use Status: Never Smoking risk assessment performed?: Yes Alcohol Intake: never Drug use: Never Substance use type: does not use Household members: none Do you feel safe at home: Yes Do you feel safe in your relationship?: Yes Additional Social history: Resident @ [facility] [employer] Exam Const General: cooperative and no acute distress HENMT Head: normal to inspection Face and sinus: normal facial exam Eyes General: appearance normal, both eyes and all related structures EOM: EOM intact bilaterally Neck Neck: normal visual inspection and No submandibular swelling Lymphatic: no lymphadenopathy noted Chest Chest: normal inspection of the chest and no tenderness Resp Effort & Inspection: normal respiratory effort and able to speak in complete sentences Auscultation: diminished lung sounds bilaterally throughout, no rhonchi and wheezes scattered wheezes Cardio Rate: tachycardic Rhythm: regular rhythm GI Inspection: normal to inspection Palpation: soft, not firm, not rigid and nontender Auscultation: normal bowel sounds Skin General skin exam: no rashes or lesions noted Neuro General: patient alert, patient awake and patient oriented x3 Cognition: normal cognition Speech: speech normal Motor: muscle tone normal throughout Sensory Exam: no sensory deficits noted Extrem General: normal to inspection, full ROM, capillary refill normal, no calf tenderness bilaterally and edema Laterality: bilateral (<1+ pitting b/l legs) Psych Appearance: grossly normal Mental Status: mental status grossly normal Speech and Movement: speech and movement normal Affect: normal affect Course Vital Signs Vital signs: Vital Signs Temperature 97.3 F L 03/15/21 06:59 Pulse 110 H 03/15/21 06:59 Respiratory Rate 17 03/15/21 06:59 Blood Pressure 142/104 H 03/15/21 06:59 Pulse Oximetry 100 03/15/21 06:59 Temperature 97.3 F L 03/15/21 06:59 Temperature Source Skin 03/15/21 06:59 Pulse 110 H 03/15/21 06:59 Respiratory Rate 17 03/15/21 06:59 Respiratory Effort 03/15/21 06:59 Blood Pressure 142/104 H 03/15/21 06:59 Blood Pressure Position Supine 03/15/21 06:59 Pulse Oximetry 100 03/15/21 06:59 Oxygen Delivery Method Nasal Cannula 03/15/21 06:59 Oxygen Flow Rate 2 03/15/21 06:59 Pain Level 0 03/15/21 06:59 Lab/Test Results Lab/Test Results: 03/15/21 07:25 Blood Blood Culture - Pending 03/15/21 07:06 Blood Blood Culture - Pending Laboratory Tests Range/Units 03/15/21 03/15/21 03/15/21 06:50 07:25 07:27 WBC (4.4-10.8) 10^3/uL 10.62 RBC (3.93-5.22) 10^6/uL 5.19 Hgb (11.2-15.7) g/dL 14.7 Hct (36.0-46.0) % 48.7 H MCV (80-95) fL 93.8 MCH (27.0-33.0) pg 28.3 MCHC (32.0-36.0) % 30.2 L RDW (11.7-14.6) % 13.4 Plt Count (130-400) 10^3/uL 305 MPV (8.0-11.0) fL 10.9 Immature Gran % 0.4 Neutrophils % 69.2 Lymphocytes % 17.4 Monocytes % 8.8 Eosinophils % 3.6 Basophils % 0.6 Nucleated RBC % % 0 Absolute Neutrophils (1.2-6.7) 10^3/uL 7.36 H Absolute Lymphocytes (1.2-3.4) 10^3/uL 1.85 Absolute Monocytes (0.1-0.8) 10^3/uL 0.93 H Absolute Eosinophils (0.0-0.7) 10^3/uL 0.38 Absolute Basophils (0.0-0.2) 10^3/uL 0.06 VBG pH (7.31-7.41) 7.29 L VBG pCO2 (41-51) mmHg 81 H* VBG pO2 mmHg 44 VBG HCO3 (23-28) mmol/L 39 H VBG Total CO2 (24-29) mmol/l 41 H VBG O2 Saturation % 71 VBG Base Excess (-2-3) mmol/L 12 H COVID-19 Source Nasal/Nares
[2021-03-15 08:01] LABS: PTT Activated 26.7 sec (21.0-27.5); Prothrombin Time 10.4 sec (9.3-11.0)
[2021-03-15 08:06] LABS: ALT 38 U/L (14-59); AST 16 U/L (15-37); Albumin 3.1 g/dL (3.4-5.0); Alkaline Phosphatase 121 U/L (46-116); Anion Gap 1.7 mmol/L (3-11); BUN 9 mg/dL (7-18); Bilirubin, Total 0.3 mg/dL (0.2-1.0); CO2 38.3 mmol/L (21.0-32.0); CREATININE 0.6 mg/dL (0.55-1.02); Calcium 9.1 mg/dL (8.5-10.1); Chloride 104 mmol/L (98-107); Glucose 109 mg/dL (74-106); Magnesium 1.9 mg/dL (1.8-2.4); NT-proBNP 80 pg/mL (<300); Potassium 3.9 mmol/L (3.5-5.1); Sodium 144 mmol/L (136-145); TSH (W/Ref FT4) 1.48 uIU/mL (0.36-3.74); Total Protein 7.1 g/dL (6.4-8.2)
[2021-03-15 08:12] LABS: Troponin I < 0.05 ng/mL (<0.06)
[2021-03-15 08:26] LABS: COVID-19 PCR Negative (Negative)
[2021-03-15] MEDS: methylPREDNISolone SUCC 125 MG VIAL IVP (08:40)
[2021-03-15] MEDS: Albuterol/Ipratropium 3 ML UPD VIAL UPD (09:13)
[2021-03-15] MEDS: Albuterol 2.5 MG/3 ML INH SOLN VIAL UPD (10:16)
[2021-03-15 10:54] LABS: BE (Venous) 11 mmol/L (-2-3); HCO3 (Venous) 37 mmol/L (23-28); O2 Sat (Venous) 95 %; TCO2 (Venous) 33 mmol/L (24-29); pH (Venous) 7.36 (7.31-7.41); pO2 (Venous) 79 mmHg
[2021-03-15 10:57] LABS: pCO2 (Venous) 65 mmHg (41-51)
== END 2021-03-15 12:37 | disposition home or self-care (01) ==
PROVIDERS: Emergency Medicine; Emergency Provider Physician Assistant; PCP Family Medicine
DX: J44.0 Chronic obstructive pulmonary disease with (acute) lower respiratory infection (principal); J20.8 Acute bronchitis due to other specified organisms; J45.901 Unspecified asthma with (acute) exacerbation; E87.2 Acidosis; I50.32 Chronic diastolic (congestive) heart failure; E05.00 Thyrotoxicosis with diffuse goiter without thyrotoxic crisis or storm; Z20.822 Contact with and (suspected) exposure to COVID-19; Z03.818 Encounter for observation for suspected exposure to other biological agents ruled out
CPT/HCPCS: 36415; 80053; 82805; 87040; 87635; 93005; 94640; 96374; 99285; 70470; 71045; 83735; 83880; 84443; 84484; 85025; 85610; 85730; 93010; J2930; J3490; J7613; J7620

== ENCOUNTER 2021-04-06 02:05 | Outpatient (CLI) | payer MEDICARE, MEDICAID, SELFPAY ==
--- NOTE | 2021-04-06 | DI.US_ITS ---
Exam(s) US SOFT TISS ABD WALL/LOW BACK EXAM: US SOFT TISS ABD WALL/LOW BACK CLINICAL HISTORY: VASCULAR LESION ANTERIOR ABD WALL TECHNIQUE: Ultrasound performed using standard protocol. COMPARISON: MR MR ABDOMEN WO/W from 01/15/2020 MR MR ABDOMEN WO/W from 01/15/[address] CHEST/ABD/PEL W from 01/16/[address] CHEST/ABD/PEL W from 01/16/[address] CHEST PE CTA from 02/16/[address] CHEST PE CTA from 02/16/2021 US US ABDOMEN from 03/07/2021 FINDINGS: Ultrasound examination of the abdominal wall was performed. There is mass measuring 11 by 9 cm by AP in diameter which is located deep to the umbilicus. This shows significant internal vascularity on Doppler evaluation. The mass is rounded and is heterogeneous in echotexture with a mixed cystic and solid appearance. Mass is indeterminate by ultrasound criteria. Comparing the current study with previous abdominal CT of January 16 2020 shows no gross interval schwarz ge in size since that time. Please correlate with biopsy results if available. IMPRESSION: DATA REPOSITORY:
== END 2021-04-06 02:25 ==
PROVIDERS: PCP Family Medicine; Visit Provider Nurse Practitioner Gerontology
DX: Z85.09 Personal history of malignant neoplasm of other digestive organs (principal); R93.5 Abnormal findings on diagnostic imaging of other abdominal regions, including retroperitoneum; R19.05 Periumbilic swelling, mass or lump
CPT/HCPCS: 76705

== ENCOUNTER 2021-04-20 16:09 | Outpatient (REF) | payer MEDICARE, MEDICAID, SELFPAY ==
[2021-04-20 17:22] LABS: Vitamin D 25 Total 30.2 ng/mL (30-100)
[2021-04-24 09:52] LABS: Parathyroid Hormone,Intact 129 pg/mL (19-88)
== END 2021-04-20 16:10 | disposition home or self-care (01) ==
LOC: LBN 16:09
PROVIDERS: PCP Family Medicine; Visit Provider Nurse Practitioner Gerontology
DX: E11.65 Type 2 diabetes mellitus with hyperglycemia (principal); E66.01 Morbid (severe) obesity due to excess calories; M62.81 Muscle weakness (generalized)
CPT/HCPCS: 82306; 83970

== ENCOUNTER 2021-04-26 13:48 | Outpatient (REF) | payer MEDICARE, MEDICAID, SELFPAY ==
[2021-04-26 15:36] LABS: Abs Immature Grans 0.07 10^3/uL (0.0-0.06); Absolute Basophil Count 0.07 10^3/uL (0.0-0.2); Absolute Eosinophil Count 0.27 10^3/uL (0.0-0.7); Absolute Lymphocyte Count 1.58 10^3/uL (1.2-3.4); Absolute Monocyte Count 0.65 10^3/uL (0.1-0.8); Absolute Neutrophil Count 4.81 10^3/uL (1.2-6.7); Basophils % 0.9; Eosinophils % 3.6; HCT 47.3 % (36.0-46.0); HGB 13.3 g/dL (11.2-15.7); Immature Grans % 0.9; Lymphocytes % 21.2; MCH 27.5 pg (27.0-33.0); MCHC 28.1 % (32.0-36.0); MCV 97.9 fL (80-95); MPV 10.7 fL (8.0-11.0); Monocytes % 8.7; Neutrophils % 64.7; Nucleated RBC 0 %; Platelet Count 266 10^3/uL (130-400); RBC 4.83 10^6/uL (3.93-5.22); RDW 15.9 % (11.7-14.6); RDW-SD 57.7 fL; WBC 7.45 10^3/uL (4.4-10.8)
[2021-04-26 16:11] LABS: Hemoglobin A1C 5.6 % (<5.7)
[2021-04-26 16:28] LABS: Anion Gap 4.2 mmol/L (3-11); BUN 11 mg/dL (7-18); CO2 38.8 mmol/L (21.0-32.0); CREATININE 0.6 mg/dL (0.55-1.02); Calcium 8.6 mg/dL (8.5-10.1); Chloride 103 mmol/L (98-107); Ferritin 52 ng/mL (8-252); Glucose 118 mg/dL (74-106); Sodium 146 mmol/L (136-145)
[2021-04-27 01:45] LABS: Vitamin D 25 Total 32.1 ng/mL (30-100)
== END 2021-04-26 13:49 | disposition home or self-care (01) ==
LOC: LBN 13:48
PROVIDERS: PCP Family Medicine; Visit Provider Nurse Practitioner Gerontology
DX: E11.65 Type 2 diabetes mellitus with hyperglycemia (principal); E66.01 Morbid (severe) obesity due to excess calories; M62.81 Muscle weakness (generalized)
CPT/HCPCS: 80048; 82306; 82728; 83036; 85025

== ENCOUNTER 2021-05-02 16:55 | Outpatient (REF) | payer MEDICARE, MEDICAID, SELFPAY ==
[2021-05-02 23:30] LABS: Albumin 3.5 g/dL (3.4-5.0); Alkaline Phosphatase 170 U/L (46-116); BUN 11 mg/dL (7-18); Bilirubin, Total 0.8 mg/dL (0.2-1.0); CREATININE 0.6 mg/dL (0.55-1.02); Calcium 8.7 mg/dL (8.5-10.1); Glucose 126 mg/dL (74-106); Potassium 3.8 mmol/L (3.5-5.1); Sodium 147 mmol/L (136-145); Total Protein 7.1 g/dL (6.4-8.2)
[2021-05-02 23:31] LABS: ALT 115 U/L (14-59); AST 61 U/L (15-37); CO2 > 45.0 mmol/L (21.0-32.0); Chloride 100 mmol/L (98-107)
== END 2021-05-02 16:56 | disposition home or self-care (01) ==
LOC: LBN 16:55
PROVIDERS: PCP Family Medicine; Visit Provider Internal Medicine
DX: J96.01 Acute respiratory failure with hypoxia (principal)
CPT/HCPCS: 80053; 85025

== ENCOUNTER 2021-05-16 18:42 | Outpatient (REF) | payer MEDICARE, MEDICAID, SELFPAY ==
[2021-05-16 22:28] LABS: Bilirubin Negative (Negative); Blood Negative (Negative); Clarity Clear (Clear); Glucose Negative (Negative); Ketones Negative (Negative); Leukocyte Esterase Negative (Negative); Nitrite Negative (Negative); Urobilinogen 0.2 EU/dL (Up TO 0.2)
== END 2021-05-16 18:43 | disposition home or self-care (01) ==
LOC: LBN 18:42
PROVIDERS: PCP Family Medicine; Visit Provider Nurse Practitioner Gerontology
DX: N39.0 Urinary tract infection, site not specified (principal)
CPT/HCPCS: 81003; 87086

== ENCOUNTER 2021-06-21 17:52 | Outpatient (REF) | payer MEDICARE, MEDICAID, SELFPAY ==
[2021-06-21 19:34] LABS: Abs Immature Grans 0.03 10^3/uL (0.0-0.06); Absolute Basophil Count 0.05 10^3/uL (0.0-0.2); Absolute Eosinophil Count 0.28 10^3/uL (0.0-0.7); Absolute Lymphocyte Count 1.68 10^3/uL (1.2-3.4); Absolute Monocyte Count 0.84 10^3/uL (0.1-0.8); Basophils % 0.7; Eosinophils % 3.7; HCT 44.6 % (36.0-46.0); HGB 12.6 g/dL (11.2-15.7); Immature Grans % 0.4; Lymphocytes % 22.5; MCH 27.8 pg (27.0-33.0); MCHC 28.3 % (32.0-36.0); MCV 98.2 fL (80-95); Monocytes % 11.2; Neutrophils % 61.5; Nucleated RBC 0 %; Platelet Count 230 10^3/uL (130-400); RBC 4.54 10^6/uL (3.93-5.22); RDW-SD 50.6 fL; WBC 7.48 10^3/uL (4.4-10.8)
== END 2021-06-21 17:53 | disposition home or self-care (01) ==
LOC: LBN 17:52
PROVIDERS: PCP Family Medicine; Visit Provider Nurse Practitioner Gerontology
DX: J96.01 Acute respiratory failure with hypoxia (principal); E11.65 Type 2 diabetes mellitus with hyperglycemia; R13.12 Dysphagia, oropharyngeal phase; J45.909 Unspecified asthma, uncomplicated
CPT/HCPCS: 85025

== ENCOUNTER 2021-06-26 15:14 | Outpatient (REF) | payer MEDICARE, MEDICAID, SELFPAY ==
[2021-06-26 16:11] LABS: Anion Gap 6.5 mmol/L (3-11); BUN 10 mg/dL (7-18); CO2 39.5 mmol/L (21.0-32.0); CREATININE 0.6 mg/dL (0.55-1.02); Calcium 9.2 mg/dL (8.5-10.1); Chloride 103 mmol/L (98-107); Glucose 109 mg/dL (74-106); Potassium 3.1 mmol/L (3.5-5.1); Sodium 149 mmol/L (136-145)
== END 2021-06-26 15:15 | disposition home or self-care (01) ==
LOC: LBN 15:14
PROVIDERS: PCP Family Medicine; Visit Provider Nurse Practitioner Gerontology
DX: E11.65 Type 2 diabetes mellitus with hyperglycemia (principal); F60.1 Schizoid personality disorder; J96.01 Acute respiratory failure with hypoxia
CPT/HCPCS: 80048

== ENCOUNTER 2021-06-29 14:11 | Outpatient (REF) | payer MEDICARE, MEDICAID, SELFPAY | END 2021-06-29 14:12 | disposition home or self-care (01) | LOC: LBN 14:11 | PROVIDERS: PCP Family Medicine; Visit Provider Nurse Practitioner Gerontology | CPT/HCPCS: 80048; 85027 ==

== ENCOUNTER 2021-06-30 09:28 | Outpatient (REF) | payer MEDICARE, MEDICAID, SELFPAY ==
[2021-06-30 10:50] LABS: Anion Gap 9.2 mmol/L (3-11); BUN 17 mg/dL (7-18); CO2 32.8 mmol/L (21.0-32.0); CREATININE 0.7 mg/dL (0.55-1.02); Calcium 9.2 mg/dL (8.5-10.1); Chloride 105 mmol/L (98-107); Glucose 101 mg/dL (74-106); Potassium 3.6 mmol/L (3.5-5.1); Sodium 147 mmol/L (136-145)
== END 2021-06-30 09:29 | disposition home or self-care (01) ==
LOC: LBN 09:28
PROVIDERS: PCP Family Medicine; Visit Provider Internal Medicine
DX: E87.6 Hypokalemia (principal)
CPT/HCPCS: 80048

== ENCOUNTER 2021-08-01 15:58 | Outpatient (REF) | payer MEDICARE, MEDICAID, SELFPAY ==
[2021-08-01 13:16] LABS: Abs Immature Grans 0.02 10^3/uL (0.0-0.06); Absolute Basophil Count 0.05 10^3/uL (0.0-0.2); Absolute Eosinophil Count 0.42 10^3/uL (0.0-0.7); Absolute Monocyte Count 0.81 10^3/uL (0.1-0.8); Absolute Neutrophil Count 6.95 10^3/uL (1.2-6.7); Basophils % 0.5; Eosinophils % 4.2; HCT 46.8 % (36.0-46.0); HGB 14.6 g/dL (11.2-15.7); Immature Grans % 0.2; Lymphocytes % 17.9; MCH 27.4 pg (27.0-33.0); MCHC 31.2 % (32.0-36.0); MCV 87.8 fL (80-95); MPV 12.2 fL (8.0-11.0); Monocytes % 8.1; Neutrophils % 69.1; Nucleated RBC 0 %; Platelet Count 221 10^3/uL (130-400); RBC 5.33 10^6/uL (3.93-5.22); RDW 13.4 % (11.7-14.6); RDW-SD 43.3 fL; WBC 10.05 10^3/uL (4.4-10.8)
[2021-08-01 13:23] LABS: ALT 36 U/L (14-59); AST 18 U/L (15-37); Albumin 3.2 g/dL (3.4-5.0); Alkaline Phosphatase 195 U/L (46-116); Anion Gap 6.4 mmol/L (3-11); BUN 13 mg/dL (7-18); Bilirubin, Total 0.5 mg/dL (0.2-1.0); CO2 35.6 mmol/L (21.0-32.0); CREATININE 0.7 mg/dL (0.55-1.02); Chloride 99 mmol/L (98-107); Glucose 98 mg/dL (74-106); Sodium 141 mmol/L (136-145); Total Protein 6.6 g/dL (6.4-8.2)
[2021-08-01 13:45] LABS: Potassium 2.8 mmol/L (3.5-5.1)
[2021-08-03 00:07] LABS: Vitamin D 25 Total 32.5 ng/mL (30-100)
== END 2021-08-01 15:59 | disposition home or self-care (01) ==
LOC: LBN 15:58
PROVIDERS: PCP Family Medicine; Visit Provider Nurse Practitioner Gerontology
DX: E55.9 Vitamin D deficiency, unspecified (principal); E11.65 Type 2 diabetes mellitus with hyperglycemia
CPT/HCPCS: 80053; 82306; 85025

== ENCOUNTER 2021-08-02 15:06 | Outpatient (REF) | payer MEDICARE, MEDICAID, SELFPAY ==
[2021-08-02 13:04] LABS: Anion Gap 6.4 mmol/L (3-11); BUN 13 mg/dL (7-18); CO2 35.6 mmol/L (21.0-32.0); CREATININE 0.8 mg/dL (0.55-1.02); Chloride 103 mmol/L (98-107); Glucose 134 mg/dL (74-106); Potassium 3.4 mmol/L (3.5-5.1); Sodium 145 mmol/L (136-145)
== END 2021-08-02 15:07 | disposition home or self-care (01) ==
LOC: LBN 15:06
PROVIDERS: PCP Family Medicine; Visit Provider Nurse Practitioner Gerontology
DX: D89.89 Other specified disorders involving the immune mechanism, not elsewhere classified (principal); E11.65 Type 2 diabetes mellitus with hyperglycemia
CPT/HCPCS: 80048

== ENCOUNTER 2021-08-08 16:07 | Outpatient (REF) | payer MEDICARE, MEDICAID, SELFPAY ==
[2021-08-08 11:34] LABS: Anion Gap 6.9 mmol/L (3-11); BUN 12 mg/dL (7-18); CO2 33.1 mmol/L (21.0-32.0); CREATININE 0.8 mg/dL (0.55-1.02); Calcium 9.4 mg/dL (8.5-10.1); Chloride 103 mmol/L (98-107); Glucose 90 mg/dL (74-106); Potassium 3.6 mmol/L (3.5-5.1); Sodium 143 mmol/L (136-145)
== END 2021-08-08 16:08 | disposition home or self-care (01) ==
LOC: LBN 16:07
PROVIDERS: PCP Family Medicine; Visit Provider Internal Medicine
DX: E87.6 Hypokalemia (principal)
CPT/HCPCS: 80048

== ENCOUNTER 2021-08-15 16:56 | Outpatient (REF) | payer MEDICARE, MEDICAID, SELFPAY ==
[2021-08-15 18:19] LABS: Anion Gap 12.2 mmol/L (3-11); BUN 9 mg/dL (7-18); CO2 30.8 mmol/L (21.0-32.0); CREATININE 0.8 mg/dL (0.55-1.02); Calcium 8.9 mg/dL (8.5-10.1); Chloride 102 mmol/L (98-107); Glucose 123 mg/dL (74-106); Potassium 3.6 mmol/L (3.5-5.1); Sodium 145 mmol/L (136-145)
== END 2021-08-15 16:57 | disposition home or self-care (01) ==
LOC: LBN 16:56
PROVIDERS: PCP Family Medicine; Visit Provider Nurse Practitioner Gerontology
DX: E87.8 Other disorders of electrolyte and fluid balance, not elsewhere classified (principal)
CPT/HCPCS: 80048

== ENCOUNTER 2021-08-22 14:42 | Outpatient (REF) | payer MEDICARE, MEDICAID, SELFPAY ==
[2021-08-22 16:38] LABS: Anion Gap 5.4 mmol/L (3-11); BUN 9 mg/dL (7-18); CO2 34.6 mmol/L (21.0-32.0); CREATININE 0.8 mg/dL (0.55-1.02); Calcium 9.1 mg/dL (8.5-10.1); Chloride 100 mmol/L (98-107); Folate 4.9 ng/mL (8.6-20.0); Glucose 100 mg/dL (74-106); Potassium 3.8 mmol/L (3.5-5.1); Sodium 140 mmol/L (136-145); TSH (W/Ref FT4) 2.85 uIU/mL (0.36-3.74); Vitamin B12 392 pg/mL (193-986)
== END 2021-08-22 14:43 | disposition home or self-care (01) ==
LOC: LBN 14:42
PROVIDERS: PCP Family Medicine; Visit Provider Nurse Practitioner Gerontology
DX: E11.65 Type 2 diabetes mellitus with hyperglycemia (principal); E03.8 Other specified hypothyroidism; D89.9 Disorder involving the immune mechanism, unspecified; J96.10 Chronic respiratory failure, unspecified whether with hypoxia or hypercapnia; F25.1 Schizoaffective disorder, depressive type
CPT/HCPCS: 80048; 82607; 82746; 83036; 84443

== ENCOUNTER 2022-02-27 21:35 | Outpatient (REF) | payer MEDICARE, MEDICAID, SELFPAY ==
[2022-02-27 21:44] LABS: Abs Immature Grans 0.02 10^3/uL (0.0-0.06); Absolute Basophil Count 0.08 10^3/uL (0.0-0.2); Absolute Lymphocyte Count 2.59 10^3/uL (1.2-3.4); Absolute Monocyte Count 0.83 10^3/uL (0.1-0.8); Absolute Neutrophil Count 5.29 10^3/uL (1.2-6.7); Basophils % 0.9; Eosinophils % 3.3; HCT 38.9 % (36.0-46.0); HGB 12.7 g/dL (11.2-15.7); Immature Grans % 0.2; Lymphocytes % 28.4; MCH 27.9 pg (27.0-33.0); MCHC 32.6 % (32.0-36.0); MCV 86 fL (80-95); MPV 11.5 fL (8.0-11.0); Monocytes % 9.1; Neutrophils % 58.1; Platelet Count 272 10^3/uL (130-400); RBC 4.55 10^6/uL (3.93-5.22); RDW 13.8 % (11.7-14.6); RDW-SD 43.1 fL; WBC 9.11 10^3/uL (4.4-10.8)
[2022-02-27 22:00] LABS: ALT 25 U/L (14-59); AST 17 U/L (15-37); Albumin 3.6 g/dL (3.4-5.0); Alkaline Phosphatase 114 U/L (46-116); Anion Gap 6.1 mmol/L (3-11); BUN 16 mg/dL (7-18); Bilirubin, Total 0.3 mg/dL (0.2-1.0); CO2 32.9 mmol/L (21.0-32.0); CREATININE 0.8 mg/dL (0.55-1.02); Calcium 8.8 mg/dL (8.5-10.1); Chloride 104 mmol/L (98-107); Estimated GFR 81.21 (mL/min/1.73m2); Glucose 95 mg/dL (74-106); NT-proBNP 203 pg/mL (<300); Potassium 3.7 mmol/L (3.5-5.1); Sodium 143 mmol/L (136-145); Total Protein 7.1 g/dL (6.4-8.2)
== END 2022-02-27 21:36 | disposition home or self-care (01) ==
LOC: LBN 21:35
PROVIDERS: PCP Family Medicine; Visit Provider Nurse Practitioner Gerontology
DX: I50.32 Chronic diastolic (congestive) heart failure (principal); I10 Essential (primary) hypertension; K25.9 Gastric ulcer, unspecified as acute or chronic, without hemorrhage or perforation; E11.65 Type 2 diabetes mellitus with hyperglycemia; K44.9 Diaphragmatic hernia without obstruction or gangrene
CPT/HCPCS: 80053; 83880; 85025

== ENCOUNTER 2022-04-17 18:17 | Outpatient (REF) | payer MEDICARE, MEDICAID, SELFPAY ==
[2022-04-17 23:40] LABS: ALT 26 U/L (14-59); AST 16 U/L (15-37); Albumin 3.9 g/dL (3.4-5.0); Alkaline Phosphatase 115 U/L (46-116); Anion Gap 6.3 mmol/L (3-11); BUN 16 mg/dL (7-18); Bilirubin, Total 0.3 mg/dL (0.2-1.0); CO2 33.7 mmol/L (21.0-32.0); CREATININE 0.8 mg/dL (0.55-1.02); Calcium 9.2 mg/dL (8.5-10.1); Chloride 103 mmol/L (98-107); Estimated GFR 81.21 (mL/min/1.73m2); Glucose 96 mg/dL (74-106); Potassium 3.4 mmol/L (3.5-5.1); Sodium 143 mmol/L (136-145); Total Protein 7.3 g/dL (6.4-8.2)
== END 2022-04-17 18:18 | disposition home or self-care (01) ==
LOC: LBN 18:17
PROVIDERS: PCP Family Medicine; Visit Provider Nurse Practitioner Gerontology
DX: E03.8 Other specified hypothyroidism (principal); I10 Essential (primary) hypertension; E11.65 Type 2 diabetes mellitus with hyperglycemia; R53.1 Weakness; R26.81 Unsteadiness on feet; D84.1 Defects in the complement system; J96.01 Acute respiratory failure with hypoxia
CPT/HCPCS: 80053

== ENCOUNTER 2022-05-15 18:35 | Outpatient (REF) | payer MEDICARE, MEDICAID, SELFPAY ==
[2022-05-15 19:35] LABS: Abs Immature Grans 0.03 10^3/uL (0.0-0.06); Absolute Basophil Count 0.08 10^3/uL (0.0-0.2); Absolute Eosinophil Count 0.28 10^3/uL (0.0-0.7); Absolute Lymphocyte Count 2.41 10^3/uL (1.2-3.4); Absolute Monocyte Count 0.78 10^3/uL (0.1-0.8); Absolute Neutrophil Count 5.55 10^3/uL (1.2-6.7); Basophils % 0.9; Eosinophils % 3.1; HCT 42.4 % (36.0-46.0); Immature Grans % 0.3; Lymphocytes % 26.4; MCH 27.5 pg (27.0-33.0); MCHC 30.7 % (32.0-36.0); MCV 90 fL (80-95); MPV 11.6 fL (8.0-11.0); Monocytes % 8.5; Neutrophils % 60.8; Platelet Count 265 10^3/uL (130-400); RBC 4.72 10^6/uL (3.93-5.22); RDW-SD 46.5 fL; WBC 9.13 10^3/uL (4.4-10.8)
[2022-05-15 20:07] LABS: ALT 23 U/L (14-59); AST 17 U/L (15-37); Albumin 3.9 g/dL (3.4-5.0); Alkaline Phosphatase 123 U/L (46-116); Anion Gap 6.4 mmol/L (3-11); BUN 16 mg/dL (7-18); Bilirubin, Total 0.3 mg/dL (0.2-1.0); CO2 33.6 mmol/L (21.0-32.0); CREATININE 0.7 mg/dL (0.55-1.02); Calcium 9.3 mg/dL (8.5-10.1); Chloride 101 mmol/L (98-107); Estimated GFR 95.32 (mL/min/1.73m2); Glucose 83 mg/dL (74-106); Potassium 3.8 mmol/L (3.5-5.1); Sodium 141 mmol/L (136-145); TSH (W/Ref FT4) 2.15 uIU/mL (0.36-3.74); Total Protein 7.4 g/dL (6.4-8.2); Vitamin B12 565 pg/mL (193-986)
[2022-05-15 21:08] LABS: Hemoglobin A1C 5.4 % (<5.7)
== END 2022-05-15 18:36 | disposition home or self-care (01) ==
LOC: LBN 18:35
PROVIDERS: Visit Provider Nurse Practitioner Gerontology
DX: J96.01 Acute respiratory failure with hypoxia (principal); E51.9 Thiamine deficiency, unspecified; E87.6 Hypokalemia; D89.89 Other specified disorders involving the immune mechanism, not elsewhere classified; R68.89 Other general symptoms and signs; E11.65 Type 2 diabetes mellitus with hyperglycemia
CPT/HCPCS: 80053; 82607; 83036; 84443; 85025

== ENCOUNTER 2022-06-12 16:53 | Outpatient (REF) | payer MEDICARE, MEDICAID, SELFPAY ==
[2022-06-12 17:52] LABS: Abs Immature Grans 0.03 10^3/uL (0.0-0.06); Absolute Basophil Count 0.03 10^3/uL (0.0-0.2); Absolute Eosinophil Count 0.01 10^3/uL (0.0-0.7); Absolute Lymphocyte Count 0.46 10^3/uL (1.2-3.4); Absolute Monocyte Count 0.55 10^3/uL (0.1-0.8); Absolute Neutrophil Count 4.08 10^3/uL (1.2-6.7); Basophils % 0.6; Eosinophils % 0.2; HCT 39.5 % (36.0-46.0); HGB 12.7 g/dL (11.2-15.7); Immature Grans % 0.6; Lymphocytes % 8.9; MCH 27.7 pg (27.0-33.0); MCHC 32.2 % (32.0-36.0); MCV 86 fL (80-95); MPV 11.7 fL (8.0-11.0); Monocytes % 10.7; Platelet Count 230 10^3/uL (130-400); RBC 4.58 10^6/uL (3.93-5.22); RDW 14.5 % (11.7-14.6); WBC 5.16 10^3/uL (4.4-10.8)
[2022-06-12 18:11] LABS: ALT 38 U/L (14-59); AST 38 U/L (15-37); Albumin 3.8 g/dL (3.4-5.0); Alkaline Phosphatase 116 U/L (46-116); Anion Gap 7.8 mmol/L (3-11); BUN 10 mg/dL (7-18); Bilirubin, Total 0.4 mg/dL (0.2-1.0); CO2 31.2 mmol/L (21.0-32.0); Calcium 8.4 mg/dL (8.5-10.1); Chloride 100 mmol/L (98-107); Estimated GFR 61.75 (mL/min/1.73m2); Glucose 178 mg/dL (74-106); NT-proBNP 335 pg/mL (<300); Potassium 3.5 mmol/L (3.5-5.1); Sodium 139 mmol/L (136-145); Total Protein 7.2 g/dL (6.4-8.2)
== END 2022-06-12 16:54 | disposition home or self-care (01) ==
LOC: LBN 16:53
PROVIDERS: Visit Provider Nurse Practitioner Gerontology
DX: I50.32 Chronic diastolic (congestive) heart failure (principal); J21.0 Acute bronchiolitis due to respiratory syncytial virus; R68.89 Other general symptoms and signs; J96.01 Acute respiratory failure with hypoxia
CPT/HCPCS: 80053; 83880; 85025

== ENCOUNTER 2022-09-04 16:04 | Outpatient (REF) | payer MEDICARE, MEDICAID, SELFPAY ==
[2022-09-04 17:08] LABS: Hemoglobin A1C 5.5 % (<5.7)
[2022-09-04 17:19] LABS: TSH (W/Ref FT4) 1.64 uIU/mL (0.36-3.74)
== END 2022-09-04 16:05 | disposition home or self-care (01) ==
LOC: LBN 16:04
PROVIDERS: Visit Provider Nurse Practitioner Gerontology
DX: D51.9 Vitamin B12 deficiency anemia, unspecified (principal); E11.9 Type 2 diabetes mellitus without complications; E03.8 Other specified hypothyroidism; E55.9 Vitamin D deficiency, unspecified; I50.32 Chronic diastolic (congestive) heart failure; R68.89 Other general symptoms and signs
CPT/HCPCS: 82306; 83036; 84443

== ENCOUNTER 2022-09-24 18:56 | Outpatient (REF) | payer MEDICARE, MEDICAID, SELFPAY ==
[2022-09-24 19:55] LABS: Abs Immature Grans 0.03 10^3/uL (0.0-0.06); Absolute Basophil Count 0.06 10^3/uL (0.0-0.2); Absolute Eosinophil Count 0.37 10^3/uL (0.0-0.7); Absolute Lymphocyte Count 2.09 10^3/uL (1.2-3.4); Absolute Monocyte Count 0.62 10^3/uL (0.1-0.8); Absolute Neutrophil Count 5.75 10^3/uL (1.2-6.7); Basophils % 0.7; Eosinophils % 4.1; HCT 43.8 % (36.0-46.0); HGB 13.3 g/dL (11.2-15.7); Immature Grans % 0.3; Lymphocytes % 23.4; MCH 27.1 pg (27.0-33.0); MCHC 30.4 % (32.0-36.0); MCV 89 fL (80-95); MPV 10.6 fL (8.0-11.0); Neutrophils % 64.5; Platelet Count 408 10^3/uL (130-400); RBC 4.91 10^6/uL (3.93-5.22); RDW 14.3 % (11.7-14.6); RDW-SD 46.5 fL; WBC 8.92 10^3/uL (4.4-10.8)
[2022-09-24 20:14] LABS: ALT 40 U/L (14-59); AST 23 U/L (15-37); Albumin 3.8 g/dL (3.4-5.0); Alkaline Phosphatase 104 U/L (46-116); Anion Gap 6.1 mmol/L (3-11); BUN 14 mg/dL (7-18); Bilirubin, Total 0.3 mg/dL (0.2-1.0); CO2 36.9 mmol/L (21.0-32.0); CREATININE 0.8 mg/dL (0.55-1.02); Calcium 9.7 mg/dL (8.5-10.1); Chloride 100 mmol/L (98-107); Estimated GFR 80.71 (mL/min/1.73m2); Glucose 137 mg/dL (74-106); NT-proBNP 53 pg/mL (<300); Potassium 3.6 mmol/L (3.5-5.1); Sodium 143 mmol/L (136-145); Total Protein 7.6 g/dL (6.4-8.2)
== END 2022-09-24 18:57 | disposition home or self-care (01) ==
LOC: LBN 18:56
PROVIDERS: Visit Provider Nurse Practitioner Gerontology
DX: D51.9 Vitamin B12 deficiency anemia, unspecified (principal); E03.8 Other specified hypothyroidism; I50.32 Chronic diastolic (congestive) heart failure; E11.9 Type 2 diabetes mellitus without complications; R68.89 Other general symptoms and signs
CPT/HCPCS: 80053; 83880; 85025

== ENCOUNTER 2023-03-05 17:49 | Outpatient (REF) | payer MEDICARE, MEDICAID, SELFPAY ==
[2023-03-05 18:01] LABS: Abs Immature Grans 0.03 10^3/uL (0.0-0.06); Absolute Basophil Count 0.06 10^3/uL (0.0-0.2); Absolute Eosinophil Count 0.18 10^3/uL (0.0-0.7); Absolute Lymphocyte Count 2.12 10^3/uL (1.2-3.4); Absolute Neutrophil Count 7.13 10^3/uL (1.2-6.7); Basophils % 0.6; Eosinophils % 1.7; HCT 41.5 % (36.0-46.0); Immature Grans % 0.3; MCH 26.9 pg (27.0-33.0); MCHC 31.3 % (32.0-36.0); MCV 86 fL (80-95); MPV 10.5 fL (8.0-11.0); Monocytes % 10.4; Platelet Count 322 10^3/uL (130-400); RBC 4.83 10^6/uL (3.93-5.22); RDW 13.8 % (11.7-14.6); RDW-SD 43.4 fL; WBC 10.62 10^3/uL (4.4-10.8)
[2023-03-05 18:22] LABS: Hemoglobin A1C 5.5 % (<5.7)
[2023-03-05 18:26] LABS: ALT 25 U/L (14-59); AST 15 U/L (15-37); Albumin 3.5 g/dL (3.4-5.0); Alkaline Phosphatase 93 U/L (46-116); Anion Gap 9.7 mmol/L (3-11); BUN 13 mg/dL (7-18); Bilirubin, Total 0.4 mg/dL (0.2-1.0); CO2 31.3 mmol/L (21.0-32.0); CREATININE 0.8 mg/dL (0.55-1.02); Calcium 8.9 mg/dL (8.5-10.1); Chloride 98 mmol/L (98-107); Estimated GFR 80.71 (mL/min/1.73m2); Glucose 113 mg/dL (74-106); Potassium 3.8 mmol/L (3.5-5.1); Sodium 139 mmol/L (136-145); Total Protein 7.4 g/dL (6.4-8.2)
== END 2023-03-05 17:50 | disposition home or self-care (01) ==
LOC: LBN 17:49
PROVIDERS: Visit Provider Nurse Practitioner Gerontology
DX: E11.65 Type 2 diabetes mellitus with hyperglycemia (principal); E87.6 Hypokalemia; E83.42 Hypomagnesemia; I89.0 Lymphedema, not elsewhere classified
CPT/HCPCS: 80053; 83036; 85025

== ENCOUNTER 2023-09-16 18:15 | Outpatient (REF) | payer MEDICARE, MEDICAID, SELFPAY ==
[2023-09-16 19:40] LABS: Hemoglobin A1C 5.9 % (<5.7)
[2023-09-16 20:09] LABS: ALT 22 U/L (14-59); AST 14 U/L (15-37); Albumin 3.5 g/dL (3.4-5.0); Alkaline Phosphatase 91 U/L (46-116); Anion Gap 5.9 mmol/L (3-11); BUN 20 mg/dL (7-18); Bilirubin, Total 0.2 mg/dL (0.2-1.0); CO2 36.1 mmol/L (21.0-32.0); CREATININE 0.7 mg/dL (0.55-1.02); Chloride 102 mmol/L (98-107); Estimated GFR 94.15 (mL/min/1.73m2); Glucose 90 mg/dL (74-106); Potassium 4.1 mmol/L (3.5-5.1); Sodium 144 mmol/L (136-145)
== END 2023-09-16 18:16 | disposition home or self-care (01) ==
LOC: LBN 18:15
PROVIDERS: Visit Provider Nurse Practitioner Gerontology
DX: E11.40 Type 2 diabetes mellitus with diabetic neuropathy, unspecified (principal)
CPT/HCPCS: 80053; 83036

== ENCOUNTER 2023-10-17 00:58 | Inpatient (IN) | payer MEDICARE, MEDICAID, SELFPAY ==
[2023-10-17] VITALS (69 sets, daily range): BP systolic 112–158; BP diastolic 68–95; PULSE 80–119; RESP 16–33; TEMP 36.6–37.6; O2SAT 86–96
--- NOTE | 2023-10-17 00:15 | RT.EKG_ITS ---
APPROVED REPORT Exam: Resting ECG Reason for Exam: short of breath Patient Location: E HR:102 bpm ECG Measurements Heart Rate 102 AXIS MD 135 P 57 QRSd 92 QRS 84 QT 354 T 8 QTc 462 Conclusion Sinus tachycardia...rate> 99
--- NOTE | 2023-10-17 00:45 | DI.RAD_ITS ---
Exam(s) XR PORTABLE CHEST AP EXAM: XR PORTABLE CHEST AP CLINICAL HISTORY: cough, sob TECHNIQUE: 2D digital imaging was performed of the chest. One image was obtained. An AP view was ob tained. COMPARISON: CR XR PORTABLE CHEST AP from 03/15/2021 FINDINGS: There is poor inspiration. MEDIASTINUM: Normal. HEART: Normal. PULMONARY VASCULATURE: Normal. LUNGS: There are bilateral basilar infiltrates present. PLEURAL SPACE: No pleural effusion or pneumothorax. BONE:Within normal limits for the patient's age. OTHER FINDINGS:Normal. IMPRESSION: Within the limits of the examination, there appear to be bilateral basilar infiltrates. These may re present atelectasis or pneumonia. DATA REPOSITORY: RADIATION DOSE DELIVERED:
--- NOTE | 2023-10-17 01:01 | W.ED.GENAD ---
Discharge Plan Disposition Patient Disposition: Admit to [facility] Condition: Fair Discharge Details Chief Complaint: RespSymp Clinical Impression: Cough, Hypoxia, Acute respiratory distress Primary Care Provider: Unknown,Unknown ED Provider: Morgan Deutsch Home Meds and New Rx's Prescriptions: No Action torsemide 20 mg tablet 80 mg PO BID escitalopram oxalate 10 mg tablet 10 mg PO DAILY amlodipine 5 mg tablet 5 mg PO DAILY guaifenesin [Tussin] 100 mg/5 mL liquid 200 mg PO Q6H PRN cholecalciferol (vitamin D3) 50 mcg (2,000 unit) capsule 50 mcg PO DAILY omeprazole 20 mg capsule,delayed release(DR/EC) 20 mg PO DAILY cholestyramine-aspartame 4 gram powder 50 pwd PO DAILY potassium chloride [Klor-Con M20] 20 mEq tablet,ER particles/crystals 40 meq PO BID fluticasone propion-salmeterol [Advair HFA] 115-21 mcg/actuation HFA aerosol inhaler 2 puff inhalation BID ProAir RespiClick 90 mcg/actuation aerosol powdr breath activated 1 inh inhalation Q12H olanzapine 15 mg tablet 15 mg PO HS acetaminophen 325 mg Tablet 650 mg PO TID PRN PRN (Reason: Pain) cholestyramine (with sugar) 4 gram powder 4 pwd PO DAILY HPI General Date/Time Provider Initiated Documentation: 10/17/23 01:01. HPI Narrative: The patient is a 68-year-old female, with a complex past medical and behavioral health history including schizophrenia, cognitive developmental delay, hypertension, hypothyroidism, esophageal dysmotility, prior aspiration pneumonia, lymphedema, and obstructive pulmonary disease, presents to the emergency department this evening with complaints of increased coughing and hypoxia tonight at her custodial facility. There was minimal history provided by EMS and by the facility itself. Essentially, the facility said that they found the patient tonight on their bedtime rounds with difficulty breathing and frequent coughing. The patient has a apparently new, wet sounding cough which has been ongoing for an unknown period of time. EMS reports that the patient had a fever of 100.5 F on their transport from the facility. The facility did not mention whether or not the patient has had a fever prior to EMSs arrival. The facility did say that there had been a recent outbreak of influenza among the patient's and residents, but they said that so far this patient had not tested positive for influenza. The patient was placed on 4 L nasal cannula which improved her oxygen saturation from the high 80s to the mid 90s. The patient denies having any shortness of breath on arrival to the emergency room, after the supplemental oxygen was placed. Related Data Home Medications Medication Instructions Recorded Confirmed acetaminophen 325 mg tablet 650 mg PO TID PRN PRN Pain 09/30/18 10/17/23 olanzapine 15 mg tablet 15 mg PO HS 01/17/20 10/17/23 potassium chloride 20 mEq 40 meq PO BID 08/31/21 10/17/23 tablet,extended release(part/cryst) (Klor-Con M) torsemide 20 mg tablet 80 mg PO BID 06/19/22 10/17/23 albuterol sulfate 90 mcg/actuation 1 inh inhalation Q12H 07/26/22 10/17/23 breath activated powder inhaler (ProAir RespiClick) fluticasone propionate 115 2 puff inhalation BID 07/26/22 10/17/23 mcg-salmeterol 21 mcg/actuation HFA inhaler (Advair HFA) cholecalciferol (vitamin D3) 50 50 mcg PO DAILY 10/31/22 10/17/23 mcg (2,000 unit) capsule cholestyramine-aspartame 4 gram 50 pwd PO DAILY 10/31/22 10/17/23 oral powder omeprazole 20 mg capsule,delayed 20 mg PO DAILY 10/31/22 10/17/23 release amlodipine 5 mg tablet 5 mg PO DAILY 01/03/23 10/17/23 escitalopram oxalate 10 mg tablet 10 mg PO DAILY 01/03/23 10/17/23 guaifenesin 100 mg/5 mL oral 200 mg PO Q6H PRN 01/30/23 10/17/23 liquid (Tussin) cholestyramine (with sugar) 4 gram 4 pwd PO DAILY 10/17/23 10/17/23 oral powder Allergies Allergy/AdvReac Type Severity Reaction Status Date / Time Sulfa (Sulfonamide Allergy Mild Skin Rash Verified 10/17/23 00:52 Antibiotics) General Stated Complaint: RespSymp TIFFANY: 3 Exam Const General: cooperative and no acute distress Nutritional Appearance: obese morbidly obese Orientation: alert, awake, oriented to person and oriented to place [facility] Other: There is somewhat crusted debris on the patient's lips. There is no obvious rhinorrhea or nasal congestion present. The patient does not describe any focal ear discomfort. Eyes Pupils: PERRL EOM: EOM intact bilaterally Resp Effort & Inspection: able to speak in complete sentences, cough Quality of cough: wet and tachypneic Auscultation: rhonchi lower bilaterally Cardio Rate: tachycardic Rhythm: regular rhythm Heart Sounds: S1 normal and S2 normal GI Inspection: obesity and other (Ventral hernia) Palpation: soft Auscultation: normal bowel sounds Skin General skin exam: no rashes or lesions noted Neuro Cranial Nerves: CN's II-XI intact bilaterally Speech: speech normal Motor: other (Chronically diminished muscle tone in bilateral lower extremities) Sensory Exam: no sensory deficits noted Extrem Right lower extremity: edema Details: pitting and 4+ Left lower extremity: edema Details: pitting and 4+ Course Vital Signs Vital signs: Vital Signs Temperature 37.6 C 10/17/23 00:47 Pulse 114 H 10/17/23 00:47 Respiratory Rate 32 H 10/17/23 00:47 Blood Pressure 158/95 H 10/17/23 00:47 Pulse Oximetry 91 L 10/17/23 00:47 Temperature 37.6 C 10/17/23 00:47 Pulse 114 H 10/17/23 00:47 Respiratory Rate 32 H 10/17/23 00:47 Respiratory Effort Normal 10/17/23 00:59 Respiratory Depth Normal 10/17/23 00:59 Blood Pressure 158/95 H 10/17/23 00:47 Pulse Oximetry 94 10/17/23 00:59 Oxygen Delivery Method Nasal Cannula 10/17/23 00:59 Oxygen Flow Rate 4 10/17/23 00:59 Pain Level 0 10/17/23 00:57 Lab/Test Results Lab/Test Results: 10/17/23 00:52 Blood Blood Culture - Pending 10/17/23 00:52 Blood Blood Culture - Pending Medical Decision Making The patient was seen and examined. She appears to be tachypneic and have some amount of mild respiratory distress, but is saturating relatively normally only 4 L nasal cannula applied by EMS. The patient is not wheezing and has relatively good air exchange although there is diffuse rhonchi in both lung bases. There is a wet sounding cough as well. The patient does take torsemide at baseline, and she has chronic lymphedema of the lower extremities. Patient has a prior history of both CHF and chronic obstructive pulmonary disease. This could represent an exacerbation of underlying CHF, but the cough and fever would be more indicative of a an acute respiratory illness. Given that the patient's facility currently has an influenza outbreak, this could be causing some of the patient's symptoms as well. The patient was given a DuoNeb treatment here in the emergency room to determine if this would improve her symptoms. The patient may require some amount of diuresis, if her chest x-ray reveals congestive failure. At this time, the patient is not requiring noninvasive ventilatory management for respiratory support as she has an oxygenation in the mid 90s and a only mildly elevated respiratory rate on nasal cannula oxygen. Disposition depends on discovery of pathology, although anticipate the patient require admission to the hospital for respiratory supportive care as she is newly requiring spinal oxygen. Quality:SDOH Health Related Social Needs: No Data to Display PFSH All Active Problems (Updated 10/17/23 @ 02:18 by Morgan Deutsch MD) Acute respiratory distress (Acute) Hypoxia (Acute) Cough (Acute) Weight gain (Acute) Onychomycosis (Acute) Schizophrenia (Chronic) Abdominal mass (Acute) unchange since 2019. 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 GERD (gastroesophageal reflux disease) (Chronic) Palliative care patient (Acute) Roxi Ramirez Acute on chronic diastolic CHF (congestive heart failure) (Acute) Medical History (Updated 10/17/23 @ 02:18 by Morgan Deutsch MD) Dyskinesia of esophagus Fever Low back pain Hip pain, bilateral Elevated WBC count Polycythemia Acute dehydration Discharge planning issues Acute respiratory failure with hypoxia and hypercapnia Aspiration pneumonia Hematemesis Falls Gastric ulcer Asthma Cholestasis Cirrhosis Dysphagia UTI (urinary tract infection) Urinary retention Acute colitis Abdominal pain Tooth pain Catheter-associated urinary tract infection Anemia Catatonia associated with another mental disorder Gastrostomy in place Advance directive on file Has end of life care plan Weakness on right side of face Hypokalemia Hypernatremia Hypomagnesemia Esophageal dysmotility Dysphagia Bradycardia Hypothyroidism Hypertension Cognitive developmental delay Babinski response Spell of behavior change Atypical chest pain Dyspnea Altered mental status KJ (acute kidney injury) Schizophrenia DVT prophylaxis Hypotension Surgical History H/[place]ophagogastroduodenoscopy [place] [facility] [place] History of bilateral tubal ligation History of hernia repair Social History Smoking/Tobacco Use Status: Never Smoking risk assessment performed?: Yes Alcohol Intake: never Drug use: Never Substance use type: does not use Household members: none Housing: half-way Do you feel safe at home: Yes Do you feel safe in your relationship?: Yes Additional Social history: Resident @ [facility] [employer]
[2023-10-17 01:04] LABS: Lactate 0.6 mmol/L (0.6-1.4)
[2023-10-17 01:06] LABS: Abs Immature Grans 0.06 10^3/uL (0.0-0.06); Absolute Eosinophil Count 0.47 10^3/uL (0.0-0.7); Absolute Lymphocyte Count 2.52 10^3/uL (1.2-3.4); Basophils % 0.4; Eosinophils % 2.9; HGB 12.7 g/dL (11.2-15.7); Immature Grans % 0.4; Lymphocytes % 15.5; MCH 25.9 pg (27.0-33.0); MCHC 30.2 % (32.0-36.0); MCV 86 fL (80-95); Monocytes % 8.8; Platelet Count 314 10^3/uL (130-400); RDW 14.8 % (11.7-14.6); RDW-SD 46.8 fL; WBC 16.28 10^3/uL (4.4-10.8)
[2023-10-17 01:08] LABS: Absolute Basophil Count 0.07 10^3/uL (0.0-0.2); Absolute Monocyte Count 1.43 10^3/uL (0.1-0.8); Absolute Neutrophil Count 11.72 10^3/uL (1.2-6.7)
[2023-10-17 01:16] LABS: Anion Gap 8.9 mmol/L (3-11); BUN 11 mg/dL (7-18); CO2 34.1 mmol/L (21.0-32.0); CREATININE 0.8 mg/dL (0.55-1.02); Calcium 8.6 mg/dL (8.5-10.1); Chloride 99 mmol/L (98-107); Estimated GFR 80.21 (mL/min/1.73m2); Glucose 134 mg/dL (74-106); Potassium 3.6 mmol/L (3.5-5.1); Sodium 142 mmol/L (136-145)
[2023-10-17 01:29] LABS: NT-proBNP 245 pg/mL (<300); Troponin I < 50 ng/L (< or =60)
[2023-10-17 01:51] LABS: COVID-19 PCR Negative (Negative); Influenza A PCR Negative (Negative); Influenza B PCR Negative (Negative); RSV PCR Negative (Negative); Source Nasopharynx
[2023-10-17] MEDS: methylPREDNISolone SUCC 125 MG VIAL 80 MG IVP ×3 (02:15→18:40)
[2023-10-17] MEDS: PIPERACILLIN/TAZO 4.5 GM in Normal Saline 100 ML IVPB (02:15)
[2023-10-17] MEDS: Furosemide 40 MG/4 ML VIAL IVP ×2 (02:15→18:41)
--- NOTE | 2023-10-17 02:28 | DI.VRAD_ITS ---
PROCEDURE INFORMATION: Exam: XR Chest Exam date and time: 10/17/2023 1:38 AM Age: 68 years old Clinical indication: Cough and shortness of breath; Additional info: Cough, SOB TECHNIQUE: Imaging protocol: Radiologic exam of the chest. Views: 1 view. COMPARISON: CR XR PORTABLE CHEST AP 15/03/2021 08:45 FINDINGS: Lungs: Low lung volumes. Possible bibasilar atelectasis/infiltrate. Pleural spaces: No pleural effusion or pneumothorax. Heart/Mediastinum: Unremarkable. No cardiomegaly. Bones/joints: Unremarkable. IMPRESSION: Possible bibasilar atelectasis/infiltrate. Dictated and Authenticated by: Keaton Rodriguez MD. Ordering:MACKENZIE Mora MD
--- NOTE | 2023-10-17 02:37 | HPE_ITS ---
Date of service: 10/17/23 Time of Service: 06:00 Assessment and Plan Assessment and plan (1) Acute hypoxic respiratory failure: Status: Acute Assessment and plan: This is likely multifactorial with possible aspiration in the setting of her chronic bronchial asthma and some degree of diastolic heart failure. She may also have untreated CALLIE which contributes to hypoxia while sleeping. She is stable on the floor, not in distress right now on supplemental oxygen. - I agree with treating pneumonia. Given concern for aspiration will use amp/sulbactam. She has no known history of MRSA or clear pseudomonas risks, so will not broaden for now. - Steroids and bronchodilators for asthma - She got a dose of IV furosemide in the ED. She is not clearly fluid overloaded but will reconsider additional diuresis as we observe her. (2) Aspiration pneumonia: Status: Ruled-out Assessment and plan: As above, got pip/tazo x 1 in the ED, now on amp/sulbactam day #1 10/16. Sputum culture ordered flu/covid/RSV negative (3) Acute on chronic diastolic CHF (congestive heart failure): Status: Acute Assessment and plan: As above, home diuretics for now. BNaP on admission not impressive. EKG and troponins x 2 reassuring. (4) Acute asthmatic bronchitis: Status: Acute Assessment and plan: Solumedrol IV along with albuterol/ipratropium. continue home ICS/LABA as well (5) Schizophrenia: Status: Chronic Assessment and plan: This has been stable recently, continue home olanzapine and escitalopram (6) GERD (gastroesophageal reflux disease): Status: Chronic Assessment and plan: continue home PPI (7) DVT prophylaxis: Status: Acute Assessment and plan: LMWH, BID per pharmacy given BMI History of Present Illness History of Present Illness Chief Complaint: respiratory distress Narrative: 68 yo F who is resident of [facility] with history of stable schizophrenia, cognitive/intellectual disability, bronchial asthma, and HFpEF who was sent to the emergency room after she was found to be in respiratory distress on evening rounds at the [facility]. The patient states she started coughing about 6 days ago, but became more short of breath on the evening prior to admission. Cough productive of thick sputum. She denies aspiration, has been eating and drinking normally, though there are notes from Dr. Ramirez documenting this concern from nursing staff. She states feels comfortable now with NRB mask (was on 4L NC before sleeping), not short of breath. No chest tightness or pain. She denies fever, but per EMS had tempurature 100.5 F. Of note, she was treated for a presumed viral URI with ashtma exacerbation with prednisone about a month ago. There has been a recent influenza outbreat at [facility]. Review of Systems All systems reviewed & are unremarkable except as noted in HPI and below Constitutional Constitutional: Denies poor appetite and Denies weight gain Cardiovascular Cardiovascular: Denies chest pain with activity, Reports pedal edema (this used to be much more per patient), Denies lightheadedness, Denies palpitations and Reports orthopnea (chronic) Respiratory Respiratory: Reports as per HPI and Denies hemoptysis Neurologic Neurologic: Denies confusion Psychiatric Psychiatric: Denies confusion and Denies mood swings Endocrine Endocrine: Denies palpitations PFSH All Active Problems DVT prophylaxis (Acute) Acute hypoxic respiratory failure (Acute) Cough (Acute) Weight gain (Acute) Onychomycosis (Acute) Schizophrenia (Chronic) Abdominal mass (Acute) unchange since 2019. 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 GERD (gastroesophageal reflux disease) (Chronic) Palliative care patient (Acute) Roxi Ramirez Acute on chronic diastolic CHF (congestive heart failure) (Acute) Medical History Dyskinesia of esophagus Low back pain Hip pain, bilateral Elevated WBC count Polycythemia Discharge planning issues Acute respiratory failure with hypoxia and hypercapnia Aspiration pneumonia Hematemesis Falls Gastric ulcer Asthma Cholestasis Cirrhosis Dysphagia UTI (urinary tract infection) Urinary retention Acute colitis Abdominal pain Tooth pain Catheter-associated urinary tract infection Anemia Catatonia associated with another mental disorder Gastrostomy in place Advance directive on file Has end of life care plan Weakness on right side of face Hypokalemia Hypernatremia Hypomagnesemia Esophageal dysmotility Dysphagia Bradycardia Hypothyroidism Hypertension Cognitive developmental delay Babinski response Spell of behavior change Atypical chest pain Dyspnea Altered mental status KJ (acute kidney injury) Schizophrenia Hypotension Surgical History H/O esophagogastroduodenoscopy and endoscopic ultrasound 08/2019 at [facility] [place] H/O oophorectomy History of bilateral tubal ligation History of hernia repair Social History Smoking/Tobacco Use Status: Never Smoking risk assessment performed?: Yes Alcohol Intake: never Drug use: Never Substance use type: does not use Household members: none [facility] Do you feel safe at home: Yes Do you feel safe in your relationship?: Yes Additional Social history: Resident @ [facility] Allergies and Home Medications Allergies Allergy/AdvReac Type Severity Reaction Status Date / Time Sulfa (Sulfonamide Allergy Mild Skin Rash Verified 10/17/23 00:52 Antibiotics) Home Medications Medication Instructions Recorded Confirmed Type acetaminophen 325 mg tablet 650 mg PO TID PRN PRN Pain 09/30/18 10/17/23 History olanzapine 15 mg tablet 15 mg PO HS 01/17/20 10/17/23 History potassium chloride 20 mEq 40 meq PO BID 08/31/21 10/17/23 History tablet,extended release(part/cryst) (Klor-Con M) torsemide 20 mg tablet 80 mg PO BID 06/19/22 10/17/23 History albuterol sulfate 90 mcg/actuation 1 inh inhalation Q12H 07/26/22 10/17/23 History breath activated powder inhaler (ProAir RespiClick) fluticasone propionate 115 2 puff inhalation BID 07/26/22 10/17/23 History mcg-salmeterol 21 mcg/actuation HFA inhaler (Advair HFA) cholecalciferol (vitamin D3) 50 50 mcg PO DAILY 10/31/22 10/17/23 History mcg (2,000 unit) capsule cholestyramine-aspartame 4 gram 50 pwd PO DAILY 10/31/22 10/17/23 History oral powder omeprazole 20 mg capsule,delayed 20 mg PO DAILY 10/31/22 10/17/23 History release amlodipine 5 mg tablet 5 mg PO DAILY 01/03/23 10/17/23 History escitalopram oxalate 10 mg tablet 10 mg PO DAILY 01/03/23 10/17/23 History guaifenesin 100 mg/5 mL oral 200 mg PO Q6H PRN 01/30/23 10/17/23 History liquid (Tussin) cholestyramine (with sugar) 4 gram 4 pwd PO DAILY 10/17/23 10/17/23 History oral powder Exam Narrative Exam Narrative: GEN: Alert and oriented x 4, very pleasant, cooperative, gives linear history. obese. No acute distress at rest. Able to speak in full sentences. HEENT: Head atraumatic. Conjunctiva clear, no icterus. PEERL, EOMI. no rhinorrhea. MMM, OP benign. Neck is supple with no masses or lymphadenopathy, trachea midline LUNGS: breath sounds audible bilaterally. Good air movement. Course wet basilar rales posteriorly bilaterally, with diffuse expiratory course rhonchi. Normal work of breathing. CV: RRR with no murmurs, gallops, or rubs. ABD: +BS, soft, NT/ND EXT: no cyanosis, clubbing. Trace justice ankle edema MSK: No joint redness or swelling NEURO: CN 2-12 grossly intact. Normal movement of 4 extremities. Slight resting tremor visible left hand. Normal speech and coordination SKIN: No rashes or open wounds. PSYCH: normal mood and affect, normal thought process. No hallucinations. Results Imaging Chest x-ray: report reviewed (Possible bibasilar atelectasis/infiltrate.) and image reviewed EKG: report reviewed and image reviewed (sinus, borderline tachycardic, nl axis, intervals. No ischemic ST-T changes) Labs 10/17/23 00:55 10/17/23 00:55 Labs: Laboratory Results - last 24 hr 10/17/23 10/17/23 00:55 01:05 WBC 16.28 H RBC 4.90 Hgb 12.7 Hct 42.0 MCV 86 MCH 25.9 L MCHC 30.2 L RDW 14.8 H Plt Count 314 MPV 10.0 Immature Gran % 0.4 Neutrophils % 72.0 Lymphocytes % 15.5 Monocytes % 8.8 Eosinophils % 2.9 Basophils % 0.4 Nucleated RBC % 0.0 Absolute Neutrophils 11.72 H Absolute Lymphocytes 2.52 Absolute Monocytes 1.43 H Absolute Eosinophils 0.47 Absolute Basophils 0.07 VBG Lactate 0.6 Sodium 142 Potassium 3.6 Chloride 99 Carbon Dioxide 34.1 H Anion Gap 8.9 BUN 11 Creatinine 0.8 Est GFR (CKD-EPI 2020) 80.21 Glucose 134 H Calcium 8.6 Troponin I < 50 NT-Pro-B Natriuret Pep 245 COVID-19 Source Nasopharynx SARS-CoV-2 (PCR) Negative Influenza Type A (PCR) Negative Influenza Type B (PCR) Negative RSV (PCR) Negative Last Vital Signs Temp 37.6 C 10/17/23 00:47 Pulse 92 H 10/17/23 02:16 Resp 26 H 10/17/23 02:22 BP 118/79 10/17/23 02:16 Pulse Ox 91 L 10/17/23 02:22 Time Spent Time spent with Patient: >75 minutes Time was spent: preparing to see the patient(eg.review tests), obtaining and/or reviewing separately otained hiistory, ordering medications,tests, procedures, referring, communicating with other health patient care secretary, indepentently interpreting results and counseling the patient
[2023-10-17 04:02] LABS: MRSA PCR Negative (Negative)
[2023-10-17 04:28] LABS: Troponin I < 50 ng/L (< or =60)
[2023-10-17 06:59] LABS: ALT 44 U/L (14-59); AST 28 U/L (15-37); Albumin 2.9 g/dL (3.4-5.0); Alkaline Phosphatase 121 U/L (46-116); Anion Gap 10.8 mmol/L (3-11); BUN 11 mg/dL (7-18); Bilirubin, Total 0.6 mg/dL (0.2-1.0); CO2 32.2 mmol/L (21.0-32.0); CREATININE 0.8 mg/dL (0.55-1.02); Calcium 8.6 mg/dL (8.5-10.1); Chloride 101 mmol/L (98-107); Estimated GFR 80.21 (mL/min/1.73m2); Glucose 147 mg/dL (74-106); Potassium 3.1 mmol/L (3.5-5.1); Sodium 144 mmol/L (136-145); Total Protein 7.6 g/dL (6.4-8.2)
[2023-10-17 07:10] LABS: Abs Immature Grans 0.06 10^3/uL (0.0-0.06); Absolute Basophil Count 0.05 10^3/uL (0.0-0.2); Absolute Eosinophil Count 0.33 10^3/uL (0.0-0.7); Absolute Lymphocyte Count 1.14 10^3/uL (1.2-3.4); Absolute Monocyte Count 0.61 10^3/uL (0.1-0.8); Absolute Neutrophil Count 10.49 10^3/uL (1.2-6.7); Basophils % 0.4; Eosinophils % 2.6; HCT 40.7 % (36.0-46.0); HGB 12.5 g/dL (11.2-15.7); Immature Grans % 0.5; MCH 26.3 pg (27.0-33.0); MCHC 30.7 % (32.0-36.0); MCV 86 fL (80-95); MPV 10.7 fL (8.0-11.0); Monocytes % 4.8; Neutrophils % 82.7; Platelet Count 295 10^3/uL (130-400); RBC 4.76 10^6/uL (3.93-5.22); RDW 14.7 % (11.7-14.6); RDW-SD 46.2 fL; WBC 12.68 10^3/uL (4.4-10.8)
[2023-10-17] MEDS: Budesonide/Formoterol 160/4.5 6 GM 60 PUFF INH IH ×2 (08:18→20:50)
[2023-10-17] MEDS: Albuterol HFA 8 GM 60 PUFF INH IH ×2 (08:18→20:50)
[2023-10-17] MEDS: AMPICILLIN/SULBACTAM 3 GM in Normal Saline 100 ML IVPB ×3 (08:33→19:45)
[2023-10-17] MEDS: amLODIPine 5 MG TAB PO (08:34)
[2023-10-17] MEDS: Potassium Chloride 20 MEQ TABCR 40 MEQ PO ×2 (08:34→19:46)
[2023-10-17] MEDS: Omeprazole 20 MG CAPCR PO (08:34)
[2023-10-17] MEDS: Escitalopram 10 MG TAB PO (08:34)
[2023-10-17] MEDS: Cholecalciferol (Vitamin D3) 1,000 UNIT TAB 2000 UNITS PO (08:34)
[2023-10-17] MEDS: Torsemide 20 MG TAB 80 MG PO ×2 (08:34→19:46)
[2023-10-17] MEDS: Normal Saline Flush 10 ML SYR IVP ×6 (08:34→22:09)
--- NOTE | 2023-10-17 08:36 | PDOC.CMIN ---
Date of service: 10/17/23 Time of Service: 08:36 Care Management Initial Assmt Initial Assessment REASON FOR HOSPITALIZATION:: aspiration pneumonia PREVIOUS FUNCTIONAL STATUS/SOCIAL/FAMILY SUPPORTS:: Christie is a 64 year old female who is disabled and resides at the [facility] in [place]. Christie shared that she has been at the [facility] for 5 years and really loves it there. Christie enjoys watching television, taking trips in the car, and she loves to visit and talk with people. Christie has 2 sisters, Netta and Tiny, and a brother, Cedric. They are very close and visit frequently. Christie is independent with most ADLs, by her report, and uses a walker for ambulation. CURRENT FUNCTIONAL STATUS:: Christie was sitting up in a chair when CM met with her. She had been dozing but was easily awakened with a light touch to the arm. She was pleasant in interaction and willingly engaged with CM. Christie stated that she has been at the [facility] for several years and is happy there. She talked about her siblings and the fact that they are involved in her care and visit as often as they can. She does not get to see her nieces and nephews too often though. Clinically Christie is doing OK. She is on 3L/min of oxygen via oxymask and is saturating in the low to mid nineties. She is afebrile however she remains tachycardic and her WBC is still elevated at 12.68, although it is lower than yesterday. ADVANCE DIRECTIVES:: No AD on file. HCA form completed. Sister Netta is HCA with Tiny as alternate. COLST on file. Has patient been provided with info about the portal/API?: No Did the patient sign up for the portal?: No CODE STATUS:: DNR/DNI INSURANCE COVERAGE / FINANCIAL ISSUES:: Medicare Medicaid CURRENT HOME/COMMUNITY SERVICES/EQUIPMENT:: lives in a SNF PRIMARY CARE PHYSICIAN:: Roxi Ramirez POTENTIAL DISCHARGE NEEDS:: Follow up with facility providers and plan of care PATIENT/FAMILY EDUCATION NEEDS:: Review of discharge instructions, activity, limitations, follow up plan, discuss Ask Me Three TRANSPORTATION:: via RCT coordinated by CM PLAN:: Anticipate Christie will be discharged back to the [facility] where shew resides when medically ready. She will follow up with facility providers and plan of care and transport via RCT. CM will follow and continue to assess for discharge needs. PFSH All Active Problems DVT prophylaxis (Acute) Acute hypoxic respiratory failure (Acute) Cough (Acute) Weight gain (Acute) Onychomycosis (Acute) Schizophrenia (Chronic) Abdominal mass (Acute) unchange since 2019. 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 GERD (gastroesophageal reflux disease) (Chronic) Palliative care patient (Acute) Roxi Ramirez Acute on chronic diastolic CHF (congestive heart failure) (Acute) Medical History Dyskinesia of esophagus Low back pain Hip pain, bilateral Elevated WBC count Polycythemia Discharge planning issues Acute respiratory failure with hypoxia and hypercapnia Aspiration pneumonia Hematemesis Falls Gastric ulcer Asthma Cholestasis Cirrhosis Dysphagia UTI (urinary tract infection) Urinary retention Acute colitis Abdominal pain Tooth pain Catheter-associated urinary tract infection Anemia Catatonia associated with another mental disorder Gastrostomy in place Advance directive on file Has end of life care plan Weakness on right side of face Hypokalemia Hypernatremia Hypomagnesemia Esophageal dysmotility Dysphagia Bradycardia Hypothyroidism Hypertension Cognitive developmental delay Babinski response Spell of behavior change Atypical chest pain Dyspnea Altered mental status KJ (acute kidney injury) Schizophrenia Hypotension Surgical History H/O esophagogastroduodenoscopy and endoscopic ultrasound 08/2019 at [facility] H/O oophorectomy History of bilateral tubal ligation History of hernia repair Social History Smoking/Tobacco Use Status: Never Smoking risk assessment performed?: Yes Alcohol Intake: never Drug use: Never Substance use type: does not use Household members: none Housing: long-term Do you feel safe at home: Yes Do you feel safe in your relationship?: Yes Additional Social history: Resident @ [facility] SDOH(Care Management) Screening Will the Patient Participate in the Screening?: Unable to obtain Social Determinants of Health Comments(SDOH Details): pt resides at the [facility]
--- NOTE | 2023-10-17 09:14 | W.PALLCONSUL ---
Date of service: 10/17/23 Time of Service: 09:14 History of Present Illness Narrative: Christie Gardiner is a 68-year-old woman who lives at the [facility]. She has a history of chronic bronchial asthma, CHF, chronic stable schizophrenia (no psychotic breaks in a long time), obesity, developmental delay, she has been followed by Dr. Ramirez of the palliative care team long-term to help with goals of care, advance care planning, and additional level of support. In fact Dr. Ramirez last saw her only 2 weeks ago and she was doing fine. Unfortunately, Christie developed acute dyspnea and cough and was admitted last night to [facility] with acute hypoxic respiratory failure felt to be secondary to respiratory infection (bacterial versus viral), perhaps aspiration and acute on chronic CHF she was started on supplemental oxygen, IV antibiotics, burst of steroids.. Care Team: Primary Care physician: The [facility] medical team Palliative care team: Dr. Ramirez Social HX: Marital Status: Single, never Occupation: Disabled most of her life Children: None Hobbies: Watching TV, playing Earle, listening to music Additional Services: Lives at group home [facility] Impression of currents health status: Doing better this morning What bothers you the most: That I am feeling a little weak What worries you the most: Not worried Goals: To feel better and return home. Current information preferences: Function: Ambulation: Self propels in wheelchair. Can stand and pivot from wheelchair to commode and from wheelchair to bed on her own ADLs: Dresses with minimal assist, feeds herself. Can toilet herself. iADLs: Dependent on others for all ADLs Hearing: Intact Vision: Not queried Cognition: Patient with mild developmental delay, seems oriented Falls: History of falls, none recently Driving: No Palliative Performance Scale % Ambulation Activity and Evidence of Disease Self Care Intake Level of Consciousness 100 Full Normal activity, no evidence of disease Full Normal Full 90 Full Normal activity, some evidence of disease Full Normal Full 80 Full Normal activity with effort, some evidence of disease Full Normal or reduced Full 70 Reduced Unable to do normal work, some evidence of disease Full Normal or reduced Full 60 Reduced Unable to do hobby or some housework, significant disease Occasional assist necessary Normal or reduced Full or confusion 50 Mainly sit/lie Unable to do any work, extensive disease Considerable assistance required Normal or reduced Full or confusion 40 Mainly in bed Unable to do any work, extensive disease Mainly assistance Normal or reduced Full, drowsy, or confusion 30 Totally bed bound Unable to do any work, extensive disease Total care Reduced Full, drowsy, or confusion 20 Totally bed bound Unable to do any work, extensive disease Total care Minimal sips Full, drowsy, or confusion 10 Totally bed bound Unable to do any work, extensive disease Total care Mouth care only Drowsy or coma 0 - - - - Patient Score: 50 Spiritual history: Not queried Palliative review of systems: Pain: No pain Dyspnea: Right now okay GI symptoms: None Appetite: Reports she is eating Depression: None Anxiety: None Emotional Distress: Spiritual/Existential Distress: Labs: Cr: Creatinine 0.8 Liver panel: Normal Albumin: 2.9 CBC: Hemoglobin 12.5 Advanced Care Planning: Advanced Directive: No advance directive on file Health Care Agent: 2018 HCA form: Sister Netta Herrera is HCA; Sister Tiny Hameed is alternate COLST: June 2018 COLST on file: DNR/DNI;+ transfer, + antibiotics, trial of IV hydration Limitations: Assessment and Plan Assessment and plan (1) Acute hypoxic respiratory failure: Status: Acute Assessment and plan: Ms. Gardiner is a 68-year-old woman with chronic stable schizophrenia, lifelong developmental delay, acute on chronic CHF, acute exacerbation asthmatic bronchitis resulting in acute hypoxic respiratory failure. She appears to be responding to initial treatment. She seems comfortable in the hospital, relaxed and interacting well with staff. Her goal is to get better and be able to return back to the [facility] where she has lived for several years. We reviewed her previous COLST which expressed desire not to have CPR or intubation. She seemed to have a good understanding of what this meant. She says she would never want to have CPR or to be on a breathing machine. She wishes to remain DNR/DNI. She seems to have capacity to understand this decision. Regarding possibility of aspiration, please see [facility] evaluation note today. Patient has noted that she is having some trouble swallowing. Speech therapy will continue to meet with her during her stay here and will make recommendations. Regarding her schizophrenia, she will be continued on her regular medications. Hopefully she will rapidly improve and be able to return back to the [facility], which she identifies as her home.Supportive counseling today. Please contact palliative care team if you would like us to meet with her again prior to discharge. (2) Acute asthmatic bronchitis: Status: Acute (3) Physician orders for life-sustaining treatment (POLST) form indicates patient wish for rh-wzs-dfkcdlnqvyk status: Status: Acute (4) Schizophrenia: Status: Chronic (5) Acute on chronic diastolic CHF (congestive heart failure): Status: Acute (6) Palliative care patient: Status: Acute (7) Counseling regarding advance care planning and goals of care: Status: Acute PFSH All Active Problems (Updated 10/17/23 @ 21:09 by Kori Saldana MD) Counseling regarding advance care planning and goals of care (Acute) Palliative care patient (Acute) DVT prophylaxis (Acute) Acute hypoxic respiratory failure (Acute) Cough (Acute) Weight gain (Acute) Onychomycosis (Acute) Schizophrenia (Chronic) Abdominal mass (Acute) unchange since 2019. 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 GERD (gastroesophageal reflux disease) (Chronic) Palliative care patient (Acute) Roxi Ramirez Acute on chronic diastolic CHF (congestive heart failure) (Acute) Medical History Dyskinesia of esophagus Low back pain Hip pain, bilateral Elevated WBC count Polycythemia Discharge planning issues Acute respiratory failure with hypoxia and hypercapnia Aspiration pneumonia Hematemesis Falls Gastric ulcer Asthma Cholestasis Cirrhosis Dysphagia UTI (urinary tract infection) Urinary retention Acute colitis Abdominal pain Tooth pain Catheter-associated urinary tract infection Anemia Catatonia associated with another mental disorder Gastrostomy in place Advance directive on file Has end of life care plan Weakness on right side of face Hypokalemia Hypernatremia Hypomagnesemia Esophageal dysmotility Dysphagia Bradycardia Hypothyroidism Hypertension Cognitive developmental delay Babinski response Spell of behavior change Atypical chest pain Dyspnea Altered mental status KJ (acute kidney injury) Schizophrenia Hypotension Surgical History H/O esophagogastroduodenoscopy and endoscopic ultrasound 08/2019 at [facility] H/O oophorectomy History of bilateral tubal ligation History of hernia repair Social History Smoking/Tobacco Use Status: Never Smoking risk assessment performed?: Yes Alcohol Intake: never Drug use: Never Substance use type: does not use Household members: none Housing: intermediate Do you feel safe at home: Yes Do you feel safe in your relationship?: Yes Additional Social history: Resident @ [facility] H[employer]R Exam Narrative Exam Narrative: Pleasant, cooperative and talkative woman sitting in recliner with her feet up. Has supplemental oxygen on. Intermittent very wet but nonproductive cough. No respiratory distress, able to speak in complete sentences. No audible wheeze or notable increased expiratory phase observed. Extremities with trace bilateral edema (apparently usually worse) Results Last Vital Signs Temp 36.6 C 10/17/23 07:19 Pulse 94 H 10/17/23 07:19 Resp 20 10/17/23 07:19 BP 129/83 10/17/23 07:19 Pulse Ox 94 10/17/23 07:19 Labs 10/17/23 04:02 10/17/23 04:02 Labs: Laboratory Results - last 24 hr 10/17/23 10/17/23 10/17/23 00:55 01:05 02:48 WBC 16.28 H RBC 4.90 Hgb 12.7 Hct 42.0 MCV 86 MCH 25.9 L MCHC 30.2 L RDW 14.8 H Plt Count 314 MPV 10.0 Immature Gran % 0.4 Neutrophils % 72.0 Lymphocytes % 15.5 Monocytes % 8.8 Eosinophils % 2.9 Basophils % 0.4 Nucleated RBC % 0.0 Absolute Neutrophils 11.72 H Absolute Lymphocytes 2.52 Absolute Monocytes 1.43 H Absolute Eosinophils 0.47 Absolute Basophils 0.07 VBG Lactate 0.6 Sodium 142 Potassium 3.6 Chloride 99 Carbon Dioxide 34.1 H Anion Gap 8.9 BUN 11 Creatinine 0.8 Est GFR (CKD-EPI 2020) 80.21 Glucose 134 H Calcium 8.6 Total Bilirubin AST ALT Alkaline Phosphatase Troponin I < 50 NT-Pro-B Natriuret Pep 245 Total Protein Albumin COVID-19 Source Nasopharynx SARS-CoV-2 (PCR) Negative Influenza Type A (PCR) Negative Influenza Type B (PCR) Negative RSV (PCR) Negative MRSA (TEM-PCR) Negative 10/17/23 04:02 WBC 12.68 H RBC 4.76 Hgb 12.5 Hct 40.7 MCV 86 MCH 26.3 L MCHC 30.7 L RDW 14.7 H Plt Count 295 MPV 10.7 Immature Gran % 0.5 Neutrophils % 82.7 Lymphocytes % 9.0 Monocytes % 4.8 Eosinophils % 2.6 Basophils % 0.4 Nucleated RBC % 0.0 Absolute Neutrophils 10.49 H Absolute Lymphocytes 1.14 L Absolute Monocytes 0.61 Absolute Eosinophils 0.33 Absolute Basophils 0.05 VBG Lactate Sodium 144 Potassium 3.1 L Chloride 101 Carbon Dioxide 32.2 H Anion Gap 10.8 BUN 11 Creatinine 0.8 Est GFR (CKD-EPI 2020) 80.21 Glucose 147 H Calcium 8.6 Total Bilirubin 0.6 AST 28 ALT 44 Alkaline Phosphatase 121 H Troponin I < 50 NT-Pro-B Natriuret Pep Total Protein 7.6 Albumin 2.9 L COVID-19 Source SARS-CoV-2 (PCR) Influenza Type A (PCR) Influenza Type B (PCR) RSV (PCR) MRSA (TEM-PCR)
[2023-10-17] MEDS: DOXYCYCLINE 100 MG in Normal Saline 100 ML IVPB ×2 (09:21→20:40)
[2023-10-17 09:46] LABS: Lab Add On Test DONE
[2023-10-17 09:55] LABS: Magnesium 1.6 mg/dL (1.8-2.4)
[2023-10-17] MEDS: Enoxaparin 40 MG/0.4 ML SYR SC ×2 (10:30→21:35)
[2023-10-17] MEDS: guaiFENesin 200 MG/10 ML CUP 600 MG PO ×3 (10:30→21:35)
[2023-10-17] MEDS: Cholestyramine/Aspartame PKT 1 EACH PO (10:31)
[2023-10-17] MEDS: MAGNESIUM SULFATE 1 GM/100 ML BAG IVINF (12:32)
--- NOTE | 2023-10-17 13:26 | CHAPLAIN ---
Christie was up in the chair watching Murder, She Wrote. She was very pleasant and easily engaged in conversation. According to staff notes, Christie has stable schizophrenia and intellectual disabilities. She currently lives at the [facility], and likes living there she told me. She is originally from [place] and we talked about. I will continue to visit.
--- NOTE | 2023-10-17 13:56 | PHA.REVIEW2 ---
Pharmacy Admission Review Admission Clinical Review Admission Pharmacy Review: (Updated 10/17/23 @ 06:39 by Cody Rm) DVT prophylaxis (Acute) Acute hypoxic respiratory failure (Acute) Cough (Acute) Acute asthmatic bronchitis (Acute) Acute on chronic diastolic CHF (congestive heart failure) (Acute) Sulfa (Sulfonamide Antibiotics) Allergy (Mild, Verified 10/17/23 00:52) Skin Rash Resuscitation Status DNR/DNI Height 5 ft 6 in Weight 131.088 kg Pharmacy Admission Review Renal Dosing Renal Dosing: BUN 11 mg/dL (7-18) 10/17/23 04:02 Creatinine 0.8 mg/dL (0.55-1.02) 10/17/23 04:02 Medications needing adjustments: Reviewed (CrCl 74.81 mL/min) List of meds needing interventions: Current medications are okay Anticoagulation Anticoagulation: Hgb 12.5 g/dL (11.2-15.7) 10/17/23 04:02 Hct 40.7 % (36.0-46.0) 10/17/23 04:02 Plt Count 295 10^3/uL (130-400) 10/17/23 04:02 Creatinine 0.8 mg/dL (0.55-1.02) 10/17/23 04:02 DVT Prophylaxis: Reviewed Medications: Enoxaparin (40mg q12h due to BMI > 40) Relevant Labs Relevant Labs: Sodium 144 mmol/L (136-145) 10/17/23 04:02 Potassium 3.1 mmol/L (3.5-5.1) L 10/17/23 04:02 Chloride 101 mmol/L (98-107) 10/17/23 04:02 Magnesium 1.6 mg/dL (1.8-2.4) L 10/17/23 04:02 Electrolytes, C-Reactive P, ESR: Reviewed (K 3.1 (repleting), Mg 1.6 (repleting), glucose 147 at 0402) Cardiac Review Cardiac Review: Troponin I < 50 ng/L (< or =60) 10/17/23 04:02 NT-Pro-B Natriuret Pep 245 pg/mL (<300) 10/17/23 00:55 BP, HR, EF%: Reviewed (BP WNL, HR 91, Ox 91L) QTc Review QTc: Reviewed (QTc 462 from 10/17/23) IV to PO Switch IV Medications: Reviewed (Unasyn and doxycycline) Home Meds Home Med List reviewed: Reviewed Relevent Home Meds Not ordered & why?: Advair was substituted for Symbicort (non-formulary substitution change) Current Meds Current Medication Order Review: Reviewed Pharmacy Antibiotic Review Pharmacy Antibiotic Activity: C/S review and Reviewed, no change Comments: Patient is on Unasyn and doxycycline, day 1 for aspiration pneumonia. WBC 12.68 and blood cultures pending.
--- NOTE | 2023-10-17 14:42 | SP_ITS ---
Date of service: 10/17/23 Time of Service: 10:15 Subjective Clinical (Bedside) Swallow Evaluation Speech Language Pathology Referred by: Dr. Rm Referral Type: Clinical Swallow Evaluation Reason for Referral/HPI: Christie Gardiner is a 68 yo female who was referred for [employer] ADMINISTRATOR swallow evaluation secondary to concern for aspiration pneumonia. Per records Christie has a PMH significant for schizophrenia, cognitive/intellectual disability, bronchial asthma, hx schatzki ring and hiatal hernia (per barium swallow in December 2019), and hx lengthy hospitalization in 2018 following prolonged catatonic state due to abrupt withdrawal from medications in which she developed dysphagia and had a PEG placed in June 2018. PEG was removed in November 2018 and Christie worked with an [employer] ADMINISTRATOR to return to regular diet. At current baseline, she favors soft/moist foods due to missing dentition. Per notes, staff at [facility], where Christie lives, have expressed concern for aspiration with drinking soda. [employer] SYSTEM[employer] ADMINISTRATOR left voicemail at [facility] seeking additional information and requesting call back. [employer] ADMINISTRATOR IMPRESSIONS & RECOMMENDATIONS: Christie was seen today for a non-instrumental swallow evaluation. She was alert, pleasant, and participatory, tolerating 1 LPM via nasal cannula, with wet breathing at baseline. Oral mechanism examination was significant for missing dentition and poor oral hygiene. While no overt s/s aspiration was appreciated during the swallow, a few minutes after completion of snack, Christie demonstrated significant wet coughing episode, appearing highly consistent with regurgitation/acid reflux. With known esophageal history, suspect aspiration may be due to esophageal dysfunction/aspiration pneumonitis. Recommend further GI work up and/or review of reflux meds. [employer] SYSTEMS ADMINISTRATOR to continue to monitor. FURTHER [employer] SYSTEM[employer] ADMINISTRATOR SERVICES: Patient to be followed while on unit. Upon Discharge, no further [employer] ADMINISTRATOR services indicated Diet Recommendations: SOLIDS: 6-Soft & Bite-Sized Solids LIQUIDS: 0-Thin Liquids MEDICATIONS: Crushed in applesauce or pudding (Pt preference) STRATEGIES: [place] upright for all PO intake - out of bed/in chair as able Oral hygiene BID/2x per day Slow rate intake MAINTAIN UPRIGHT POSITION AT LEAST 60 MINUTES AFTER MEALS AVOID MEALS/SNACKS 2-3 HOURS BEFORE RECLINING SLEEP WITH HOB ELEVATED TO REDUCE NOCTURNAL REFLUX Level of Assistance/Supervision: Distant supervision for all PO intake Education Provided to: Nursing, Patient, Physician Topics Addressed: [employer] ADMINISTRATOR findings/recommendations SUBJECTIVE: Patient received alert/awake, agreeable to evaluation Pain Reported? None Baseline Swallow Function: Patient denies swallowing difficulty prior to admission and eats a soft diet at baseline. She states this is due to dentition and 'food sticking in her throat' if it's too rough. PO Trials Assessed: IDDSI 0 Thin Liquids via straw IDDSI 6 Soft & Bite Size Solid - Fig caitlyn bueno Oral Mechanism Examination: Missing Dentition; poor oral hygiene/dental decay. Cranial Nerve Assessment: CN V ? Trigeminal Facial Sensation WNL Jaw Strength/ROM WNL ?WNL CN VII- Facial WNL labial ROM, strength, coordination. WNL lingual sensation WNL CN IX ? Glossopharyngeal WNL palatal elevation with phonation. No evidence of nasal emissions WNL CN X ? Vagus WNL Vocal quality and volume. Strong/sharp volitional cough WNL CX XII ? Hypoglossal WNL lingual ROM, strength, coordination WNL Oral Phase Findings: Difficulty chewing Pharyngeal Phase Findings: WFL *Wet cough noted several minutes after completion of snack; suspect GI dysfunction ? Madeline Swallow Protocol Results: PASS ASSESSMENT: Further [employer] SYSTEM[employer] ADMINISTRATOR Services indicated. Patient to be monitored while on unit. Recommendation at Discharge: Do not anticipate [employer] SYSTEM[employer] ADMINISTRATOR services indicated Suggested Referrals: Gastroenterology Recommended Procedures: consider barium swallow PLAN: Frequency: 1-2x/week for 1-2 weeks Goals: Manufacturers Representative Goals: Patient will remain free from aspiration-related illness, malnutrition, and dehydration. Short Term Goals: Patient will tolerate L6 Soft Bite Size Diet and Thin liquids without overt s/s aspiration across 2/2 visits. Patient will tolerate PO trials for consideration of diet upgrade without overt s/s aspiration across 2/2 visits. [employer] ADMINISTRATOR CPT Code: 26130 Clinical Swallowing Evaluation TOTAL TIME: 20 Minutes ([id number])
--- NOTE | 2023-10-17 16:51 | W.PM.PROGNOT ---
Date of Service Date of service: 10/17/23 Time of Service: 16:51 Assessment and Plan Assessment and plan (1) Acute hypoxic respiratory failure: Status: Acute Assessment and plan: Continue amp/sulbactam. Continue Steroids and bronchodilators for asthma Continue furosemide . (2) Aspiration pneumonia: Status: Ruled-out Assessment and plan: Continue amp/sulbactam day #1 10/16. Sputum culture ordered flu/covid/RSV negative (3) Acute on chronic diastolic CHF (congestive heart failure): Status: Acute Assessment and plan: As above, home diuretics for now. ProBNP on admission 245 . EKG and troponins x 2 reassuring. (4) Acute asthmatic bronchitis: Status: Acute Assessment and plan: Continue solumedrol IV Continue albuterol/ipratropium. Continue home ICS/LABA (5) Schizophrenia: Status: Chronic Assessment and plan: Stable, continue home olanzapine and escitalopram (6) GERD (gastroesophageal reflux disease): Status: Chronic Assessment and plan: Continue PPI (7) DVT prophylaxis: Status: Acute Assessment and plan: LMWH, BID per pharmacy given BMI Subjective Subjective Patient reports: no new complaints, feels better, voiding w/o difficulty and shortness of breath Interval history since last seen: Continues to have oxygen requirement. Personnel at the [facility] reports she is on and off O2 there as needed. Speaks in full sentences, eating well. Drinking well. Exam Narrative Exam Narrative: GEN: Alert and oriented x 4, very pleasant, cooperative, obese. No acute distress at rest. Able to speak in full sentences. Eating full meals, hydrating well. HEENT: Head atraumatic. Conjunctiva clear, no icterus. PEERL, EOMI. no rhinorrhea. MMM, OP benign. Neck is supple with no masses or lymphadenopathy, trachea midline LUNGS: breath sounds audible bilaterally, clear with some upper airway congestion that clears with cough. Good air movement. Normal work of breathing. CV: RRR with no murmurs, gallops, or rubs. ABD: +BS, soft, NT/ND EXT: no cyanosis, clubbing. Trace justice ankle edema MSK: No joint redness or swelling NEURO: CN 2-12 grossly intact. Normal movement of 4 extremities. Slight resting tremor visible left hand. Normal speech and coordination SKIN: No rashes or open wounds. PSYCH: normal mood and affect, normal thought process. No hallucinations. Objective Last Vital Signs Temp 36.8 C 10/17/23 15:07 Pulse 80 10/17/23 15:07 Resp 18 10/17/23 15:07 BP 132/91 H 10/17/23 15:07 Pulse Ox 94 10/17/23 15:07 Laboratory Results - last 24 hr 10/17/23 10/17/23 10/17/23 00:55 01:05 02:48 WBC 16.28 H RBC 4.90 Hgb 12.7 Hct 42.0 MCV 86 MCH 25.9 L MCHC 30.2 L RDW 14.8 H Plt Count 314 MPV 10.0 Immature Gran % 0.4 Neutrophils % 72.0 Lymphocytes % 15.5 Monocytes % 8.8 Eosinophils % 2.9 Basophils % 0.4 Nucleated RBC % 0.0 Absolute Neutrophils 11.72 H Absolute Lymphocytes 2.52 Absolute Monocytes 1.43 H Absolute Eosinophils 0.47 Absolute Basophils 0.07 VBG Lactate 0.6 Sodium 142 Potassium 3.6 Chloride 99 Carbon Dioxide 34.1 H Anion Gap 8.9 BUN 11 Creatinine 0.8 Est GFR (CKD-EPI 2020) 80.21 Glucose 134 H Calcium 8.6 Magnesium Total Bilirubin AST ALT Alkaline Phosphatase Troponin I < 50 NT-Pro-B Natriuret Pep 245 Total Protein Albumin COVID-19 Source Nasopharynx SARS-CoV-2 (PCR) Negative Influenza Type A (PCR) Negative Influenza Type B (PCR) Negative RSV (PCR) Negative MRSA (TEM-PCR) Negative Add-On Test Request 10/17/23 10/17/23 04:02 09:45 WBC 12.68 H RBC 4.76 Hgb 12.5 Hct 40.7 MCV 86 MCH 26.3 L MCHC 30.7 L RDW 14.7 H Plt Count 295 MPV 10.7 Immature Gran % 0.5 Neutrophils % 82.7 Lymphocytes % 9.0 Monocytes % 4.8 Eosinophils % 2.6 Basophils % 0.4 Nucleated RBC % 0.0 Absolute Neutrophils 10.49 H Absolute Lymphocytes 1.14 L Absolute Monocytes 0.61 Absolute Eosinophils 0.33 Absolute Basophils 0.05 VBG Lactate Sodium 144 Potassium 3.1 L Chloride 101 Carbon Dioxide 32.2 H Anion Gap 10.8 BUN 11 Creatinine 0.8 Est GFR (CKD-EPI 2020) 80.21 Glucose 147 H Calcium 8.6 Magnesium 1.6 L Total Bilirubin 0.6 AST 28 ALT 44 Alkaline Phosphatase 121 H Troponin I < 50 NT-Pro-B Natriuret Pep Total Protein 7.6 Albumin 2.9 L COVID-19 Source SARS-CoV-2 (PCR) Influenza Type A (PCR) Influenza Type B (PCR) RSV (PCR) MRSA (TEM-PCR) Add-On Test Request DONE Time Spent with Patient Time Spent with Patient: 25-34 minutes Time was spent: preparing to see the patient(eg.review tests), ordering medications,tests, procedures, referring, communicating with other health medicare compliance auditor, indepentently interpreting results, counseling the patient and care coordination
[2023-10-17] MEDS: Benzonatate 100 MG CAP PO (19:46)
[2023-10-17] MEDS: OLANZapine 5 MG TAB 15 MG PO (19:46)
[2023-10-18] VITALS (8 sets, daily range): BP systolic 123–159; BP diastolic 81–98; PULSE 80–103; RESP 15–24; TEMP 35.9–37.4; O2SAT 93–96
[2023-10-18] MEDS: methylPREDNISolone SUCC 125 MG VIAL 80 MG IVP ×3 (02:13→18:32)
[2023-10-18] MEDS: AMPICILLIN/SULBACTAM 3 GM in Normal Saline 100 ML IVPB ×4 (02:14→20:07)
[2023-10-18] MEDS: guaiFENesin 200 MG/10 ML CUP 600 MG PO ×4 (04:03→21:57)
[2023-10-18 06:40] LABS: Absolute Lymphocyte Count 0.87 10^3/uL (1.2-3.4); Basophils % 0.1; HCT 39.7 % (36.0-46.0); HGB 12.5 g/dL (11.2-15.7); Immature Grans % 0.7; Lymphocytes % 6.1; MCH 26.4 pg (27.0-33.0); MCHC 31.5 % (32.0-36.0); MCV 84 fL (80-95); MPV 10.1 fL (8.0-11.0); Monocytes % 4.4; Neutrophils % 88.7; Platelet Count 348 10^3/uL (130-400); RBC 4.74 10^6/uL (3.93-5.22); RDW 14.3 % (11.7-14.6); RDW-SD 43.7 fL; WBC 14.19 10^3/uL (4.4-10.8)
[2023-10-18 06:46] LABS: Absolute Basophil Count 0.01 10^3/uL (0.0-0.2); Absolute Monocyte Count 0.62 10^3/uL (0.1-0.8); Absolute Neutrophil Count 12.59 10^3/uL (1.2-6.7)
[2023-10-18 07:07] LABS: ALT 40 U/L (14-59); AST 17 U/L (15-37); Albumin 2.8 g/dL (3.4-5.0); Alkaline Phosphatase 117 U/L (46-116); Anion Gap 6.6 mmol/L (3-11); BUN 17 mg/dL (7-18); Bilirubin, Total 0.3 mg/dL (0.2-1.0); CO2 34.4 mmol/L (21.0-32.0); CREATININE 0.8 mg/dL (0.55-1.02); Calcium 8.5 mg/dL (8.5-10.1); Chloride 99 mmol/L (98-107); Estimated GFR 80.21 (mL/min/1.73m2); Glucose 153 mg/dL (74-106); Magnesium 1.7 mg/dL (1.8-2.4); Potassium 3.4 mmol/L (3.5-5.1); Sodium 140 mmol/L (136-145); Total Protein 7.6 g/dL (6.4-8.2)
[2023-10-18] MEDS: Omeprazole 20 MG CAPCR 40 MG PO (07:22)
[2023-10-18] MEDS: Normal Saline Flush 10 ML SYR IVP ×4 (08:08→20:54)
--- NOTE | 2023-10-18 09:06 | CMPROGNOTE_ITS ---
Date of service: 10/18/23 Time of Service: 09:06 Care Management Progress Note Progress Note Text Progress Note Text: S/O: Christie was sitting up in the chair when CM met with her. She was pleasant and stated that she is feeling better. Clinically she seems to be improving. Her oxygen saturation is in the 90s on 3L/[place] of oxygen via [employer]. Christie is looking forward to returning to the [facility] when she is medically stable. She offered no new complaints today. A: Christie is a 68 year old woman admitted on 10/17/23 with pneumonia P:Anticipate Christie will be discharged back to the [facility] where she resides when medically ready. She will follow up with facility providers and plan of care and transport via RCT. CM will follow and continue to assess for discharge needs. SDOH(Care Management) Screening Will the Patient Participate in the Screening?: Unable to obtain Social Determinants of Health Comments(SDOH Details): pt resides at the [facility]
[2023-10-18] MEDS: DOXYCYCLINE 100 MG in Normal Saline 100 ML IVPB ×2 (10:01→20:52)
[2023-10-18] MEDS: Potassium Chloride 20 MEQ TABCR 40 MEQ PO ×2 (10:05→20:53)
[2023-10-18] MEDS: Cholecalciferol (Vitamin D3) 1,000 UNIT TAB 2000 UNITS PO (10:09)
[2023-10-18] MEDS: amLODIPine 5 MG TAB PO (10:09)
[2023-10-18] MEDS: Escitalopram 10 MG TAB PO (10:09)
[2023-10-18] MEDS: Torsemide 20 MG TAB 80 MG PO ×2 (10:10→20:53)
[2023-10-18] MEDS: Benzonatate 100 MG CAP PO ×2 (10:17→20:53)
[2023-10-18] MEDS: Cholestyramine/Aspartame PKT 1 EACH PO (10:23)
--- NOTE | 2023-10-18 10:25 | W.PM.PROGNOT ---
Date of Service Date of service: 10/18/23 Time of Service: 10:25 Assessment and Plan Assessment and plan (1) Acute hypoxic respiratory failure: Status: Acute Assessment and plan: Continue amp/sulbactam; convert to oral when discharged back to the [facility] Continue Steroids and bronchodilators for asthma Continue furosemide . (2) Aspiration pneumonia: Status: Ruled-out Assessment and plan: Continue amp/sulbactam day #2 10/17. Sputum culture ordered, collected and pending viral panel neg (3) Acute on chronic diastolic CHF (congestive heart failure): Status: Acute Assessment and plan: As above, continue diuretics (4) Acute asthmatic bronchitis: Status: Acute Assessment and plan: Continue solumedrol IV Continue albuterol/ipratropium. Continue home ICS/LABA (5) Schizophrenia: Status: Chronic Assessment and plan: Stable, continue home olanzapine and escitalopram (6) GERD (gastroesophageal reflux disease): Status: Chronic Assessment and plan: Continue PPI (7) DVT prophylaxis: Status: Acute Assessment and plan: LMWH, BID per pharmacy given BMI Discussed with Dr Murray Exam Narrative Exam Narrative: GEN: Alert and oriented x 4, very pleasant, cooperative, obese. No acute distress at rest. Able to speak in full sentences. Eating full meals, hydrating well. Conversant, smiling. HEENT: Head atraumatic. Conjunctiva clear, no icterus. PEERL, EOMI. no rhinorrhea. MMM, OP benign. Neck is supple with no masses or lymphadenopathy, trachea midline LUNGS: breath sounds audible bilaterally, clear with some upper airway congestion that clears with cough. Good air movement. Normal work of breathing. CV: RRR with no murmurs, gallops, or rubs. ABD: +BS, soft, NT/ND EXT: no cyanosis, clubbing. Trace justice ankle edema MSK: No joint redness or swelling NEURO: CN 2-12 grossly intact. Normal movement of 4 extremities. Slight resting tremor visible left hand. Normal speech and coordination SKIN: No rashes or open wounds. PSYCH: normal mood and affect, normal thought process. No hallucinations. Objective Last Vital Signs Temp 36.8 C 10/18/23 08:08 Pulse 99 H 10/18/23 08:08 Resp 20 10/18/23 08:08 BP 132/92 H 10/18/23 08:08 Pulse Ox 94 10/18/23 08:08 Laboratory Results - last 24 hr 10/18/23 06:14 WBC 14.19 H RBC 4.74 Hgb 12.5 Hct 39.7 MCV 84 MCH 26.4 L MCHC 31.5 L RDW 14.3 Plt Count 348 MPV 10.1 Immature Gran % 0.7 Neutrophils % 88.7 Lymphocytes % 6.1 Monocytes % 4.4 Eosinophils % 0.0 Basophils % 0.1 Nucleated RBC % 0.0 Absolute Neutrophils 12.59 H Absolute Lymphocytes 0.87 L Absolute Monocytes 0.62 Absolute Eosinophils 0.00 Absolute Basophils 0.01 Sodium 140 Potassium 3.4 L Chloride 99 Carbon Dioxide 34.4 H Anion Gap 6.6 BUN 17 Creatinine 0.8 Est GFR (CKD-EPI 2020) 80.21 Glucose 153 H Calcium 8.5 Magnesium 1.7 L Total Bilirubin 0.3 AST 17 ALT 40 Alkaline Phosphatase 117 H Total Protein 7.6 Albumin 2.8 L Time Spent with Patient Time Spent with Patient: 25-34 minutes Time was spent: preparing to see the patient(eg.review tests), ordering medications,tests, procedures, referring, communicating with other health neonatal intensive care nurse, indepentently interpreting results, counseling the patient and care coordination
[2023-10-18] MEDS: Enoxaparin 40 MG/0.4 ML SYR SC ×2 (10:28→20:52)
[2023-10-18] MEDS: Potassium Chloride 20 MEQ TABCR PO (11:30)
[2023-10-18] MEDS: MAGNESIUM SULFATE 1 GM/100 ML BAG IVINF (12:12)
[2023-10-18] MEDS: Albuterol HFA 8 GM 60 PUFF INH IH ×2 (12:13→19:39)
[2023-10-18] MEDS: Budesonide/Formoterol 160/4.5 6 GM 60 PUFF INH IH ×2 (12:13→19:35)
--- NOTE | 2023-10-18 15:40 | W.SPSTP ---
Date of service: 10/18/23 Time of Service: 12:00 Vance Soriano was contacted in her room during lunch. When FUNERAL PRE ARRANGEMENT COUNSELOR arrived she had eaten several bites of macaroni and cheese and pudding was drinking chocolate milk. She was unwilling to take any further solids but did take sips of liquid. Objective/Assessment/Plan Objective Treatment Techniques & Outcomes: PO Trials Assessed: IDDSI 0 Thin Liquids via cup edge x3, straw x2 Oral Phase Findings: n/a Pharyngeal Phase Findings: Wet cough noted prior to taking sips of liquid. Wet cough noted immediately upon first sip of chocolate milk. No further coughing noted. Per patient's sister and RN who was present, patient has been coughing like this intermittently throughout the day and does not seem related to PO intake. ? Assessment While pt did cough during thin liquid trials this date, they were undifferentiated from baseline coughing. If aspiration is occurring, continue to suspect primarily GI etiology. If further concerns arise for oral-pharyngeal dysphagia, recommend MBSS (may be completed outpatient). Recommendation at Discharge: Do not anticipate further FUNERAL PRE ARRANGEMENT COUNSELOR services indicated Suggested Referrals: Gastroenterology Recommended Procedures: consider barium swallow (esophagram) Plan Plan: Frequency: 1-2x/week for 1-2 weeks Goals: Fpc Goals: Patient will remain free from aspiration-related illness, malnutrition, and dehydration. Short Term Goals: Patient will tolerate L6 Soft Bite Size Diet and Thin liquids without overt s/s aspiration across 2/2 visits. Patient will tolerate PO trials for consideration of diet upgrade without overt s/s aspiration across 2/2 visits. Recommendations Recommendations: Diet: SOLIDS: 6-Soft & Bite-Sized Solids LIQUIDS: 0-Thin Liquids MEDICATIONS: Crushed in applesauce or pudding (Pt preference) STRATEGIES: [place] upright for all PO intake - out of bed/in chair as able Oral hygiene BID/2x per day Slow rate intake MAINTAIN UPRIGHT POSITION AT LEAST 60 MINUTES AFTER MEALS AVOID MEALS/SNACKS 2-3 HOURS BEFORE RECLINING SLEEP WITH HOB ELEVATED TO REDUCE NOCTURNAL REFLUX Level of Assistance/Supervision: Distant supervision for all PO intake Education Provided to: Patient, family Education topics: Review of reflux and safety precautions as outlined above. Total Time Spent: 12:00-12:15 (15 min total)
[2023-10-18] MEDS: OLANZapine 5 MG TAB 15 MG PO (20:53)
[2023-10-18] MEDS: Magnesium Chloride 64 MG TABCR PO (20:53)
[2023-10-19] VITALS (9 sets, daily range): BP systolic 113–159; BP diastolic 80–108; PULSE 77–99; RESP 18–20; TEMP 36–37.2; O2SAT 90–96
[2023-10-19] MEDS: methylPREDNISolone SUCC 125 MG VIAL 80 MG IVP ×3 (01:45→17:55)
[2023-10-19] MEDS: AMPICILLIN/SULBACTAM 3 GM in Normal Saline 100 ML IVPB ×4 (03:04→20:11)
[2023-10-19] MEDS: guaiFENesin 200 MG/10 ML CUP 600 MG PO ×4 (03:37→21:11)
[2023-10-19 06:40] LABS: Abs Immature Grans 0.28 10^3/uL (0.0-0.06); Absolute Basophil Count 0.03 10^3/uL (0.0-0.2); Absolute Lymphocyte Count 0.75 10^3/uL (1.2-3.4); Absolute Monocyte Count 0.38 10^3/uL (0.1-0.8); Absolute Neutrophil Count 11.53 10^3/uL (1.2-6.7); Basophils % 0.2; HCT 40.4 % (36.0-46.0); HGB 12.7 g/dL (11.2-15.7); Immature Grans % 2.2; Lymphocytes % 5.8; MCH 26.2 pg (27.0-33.0); MCHC 31.4 % (32.0-36.0); MCV 84 fL (80-95); MPV 10.2 fL (8.0-11.0); Monocytes % 2.9; Neutrophils % 88.9; Platelet Count 371 10^3/uL (130-400); RBC 4.84 10^6/uL (3.93-5.22); RDW 14.4 % (11.7-14.6); RDW-SD 43.8 fL; WBC 12.97 10^3/uL (4.4-10.8)
[2023-10-19 06:54] LABS: BUN 23 mg/dL (7-18); Calcium 8.6 mg/dL (8.5-10.1); Chloride 99 mmol/L (98-107); Estimated GFR 61.36 (mL/min/1.73m2); Glucose 199 mg/dL (74-106); Magnesium 1.8 mg/dL (1.8-2.4); Potassium 3.5 mmol/L (3.5-5.1); Sodium 140 mmol/L (136-145)
[2023-10-19] MEDS: Budesonide/Formoterol 160/4.5 6 GM 60 PUFF INH IH ×2 (07:54→20:26)
[2023-10-19] MEDS: Albuterol HFA 8 GM 60 PUFF INH IH ×2 (07:54→20:26)
[2023-10-19] MEDS: Torsemide 20 MG TAB 80 MG PO ×2 (08:06→21:10)
[2023-10-19] MEDS: Escitalopram 10 MG TAB PO (08:06)
[2023-10-19] MEDS: Omeprazole 20 MG CAPCR 40 MG PO (08:07)
[2023-10-19] MEDS: Potassium Chloride 20 MEQ TABCR 40 MEQ PO ×2 (08:07→21:10)
[2023-10-19] MEDS: Magnesium Chloride 64 MG TABCR PO ×2 (08:07→21:10)
[2023-10-19] MEDS: Cholecalciferol (Vitamin D3) 1,000 UNIT TAB 2000 UNITS PO (08:08)
[2023-10-19] MEDS: amLODIPine 5 MG TAB PO (08:08)
[2023-10-19] MEDS: Benzonatate 100 MG CAP PO ×3 (08:08→21:10)
[2023-10-19] MEDS: Normal Saline Flush 10 ML SYR IVP ×4 (08:09→21:11)
[2023-10-19] MEDS: DOXYCYCLINE 100 MG in Normal Saline 100 ML IVPB ×2 (09:05→21:11)
[2023-10-19] MEDS: Cholestyramine/Aspartame PKT 1 EACH PO (10:27)
[2023-10-19] MEDS: Enoxaparin 40 MG/0.4 ML SYR SC ×2 (10:30→21:21)
--- NOTE | 2023-10-19 14:46 | W.PM.PROGNOT ---
Date of Service Date of service: 10/19/23 Time of Service: 14:46 Assessment and Plan Assessment and plan (1) Acute hypoxic respiratory failure: Status: Acute Assessment and plan: Continue amp/sulbactam; convert to oral when discharged back to the [facility] Continue Steroids and bronchodilators for asthma Continue furosemide . (2) Aspiration pneumonia: Status: Ruled-out Assessment and plan: Continue amp/sulbactam day #3 10/18. Sputum culture - normal maite, rare growth viral panel neg STP recommends (3) Acute on chronic diastolic CHF (congestive heart failure): Status: Acute Assessment and plan: As above, continue diuretics (4) Acute asthmatic bronchitis: Status: Acute Assessment and plan: Continue solumedrol IV Continue albuterol/ipratropium. Continue home ICS/LABA (5) Schizophrenia: Status: Chronic Assessment and plan: Stable, continue home olanzapine and escitalopram (6) GERD (gastroesophageal reflux disease): Status: Chronic Assessment and plan: Continue PPI (7) DVT prophylaxis: Status: Acute Assessment and plan: LMWH, BID per pharmacy given BMI Plan to return to the [facility] if continues to improve Saturday or Saturday as skilled patient. Discussed with Dr Murray Subjective Subjective Patient reports: no new complaints, tolerating a regular diet, voiding w/o difficulty, bowel movement and afebrile; denies flatus, diarrhea, nausea, vomiting or shortness of breath Interval history since last seen: Very pleasant, conversant, smiling; no complaints Exam Narrative Exam Narrative: GEN: Alert and oriented x 4, very pleasant, cooperative, obese. No acute distress at rest. Able to speak in full sentences. Eating full meals, hydrating well. Conversant, smiling. HEENT: Head atraumatic. Conjunctiva clear, no icterus. PEERL, EOMI. no rhinorrhea. MMM. Neck is supple with no masses or lymphadenopathy, trachea midline LUNGS: breath sounds audible bilaterally, continues to have clear bilat breath sounds with some upper airway congestion that clears with cough. Good air movement. Normal work of breathing. CV: RRR with no murmurs, gallops, or rubs. ABD: +BS, soft, NT/ND EXT: no cyanosis, clubbing. Trace [place] ankle edema MSK: No joint redness or swelling NEURO: CN 2-12 grossly intact. Normal movement of 4 extremities. Slight resting tremor visible left hand. Normal speech and coordination SKIN: No rashes or open wounds. PSYCH: normal mood and affect, normal thought process. No hallucinations. Objective Last Vital Signs Temp 36.3 C L 10/19/23 11:10 Pulse 88 10/19/23 11:10 Resp 18 10/19/23 11:10 BP 129/93 H 10/19/23 11:10 Pulse Ox 94 10/19/23 11:10 Laboratory Results - last 24 hr 10/19/23 06:10 WBC 12.97 H RBC 4.84 Hgb 12.7 Hct 40.4 MCV 84 MCH 26.2 L MCHC 31.4 L RDW 14.4 Plt Count 371 MPV 10.2 Immature Gran % 2.2 Neutrophils % 88.9 Lymphocytes % 5.8 Monocytes % 2.9 Eosinophils % 0.0 Basophils % 0.2 Nucleated RBC % 0.0 Absolute Neutrophils 11.53 H Absolute Lymphocytes 0.75 L Absolute Monocytes 0.38 Absolute Eosinophils 0.00 Absolute Basophils 0.03 Sodium 140 Potassium 3.5 Chloride 99 Carbon Dioxide 32.0 Anion Gap 9.0 BUN 23 H Creatinine 1.0 Est GFR (CKD-EPI 2020) 61.36 Glucose 199 H Calcium 8.6 Magnesium 1.8 Time Spent with Patient Time Spent with Patient: 35-49 minutes Time was spent: preparing to see the patient(eg.review tests), ordering medications,tests, procedures, referring, communicating with other health daycare director, indepentently interpreting results, counseling the patient and care coordination
[2023-10-19] MEDS: OLANZapine 5 MG TAB 15 MG PO (21:10)
[2023-10-20] VITALS (8 sets, daily range): BP systolic 127–145; BP diastolic 84–93; PULSE 86–102; RESP 18–22; TEMP 36.7–37.3; O2SAT 90–96
[2023-10-20] MEDS: methylPREDNISolone SUCC 125 MG VIAL 80 MG IVP ×3 (02:58→18:01)
[2023-10-20] MEDS: AMPICILLIN/SULBACTAM 3 GM in Normal Saline 100 ML IVPB ×4 (03:00→22:10)
[2023-10-20] MEDS: guaiFENesin 200 MG/10 ML CUP 600 MG PO ×4 (04:57→22:10)
[2023-10-20 07:06] LABS: Abs Immature Grans 0.32 10^3/uL (0.0-0.06); Absolute Monocyte Count 0.63 10^3/uL (0.1-0.8); Basophils % 0.2; HCT 43.2 % (36.0-46.0); HGB 13.8 g/dL (11.2-15.7); Immature Grans % 2.6; Lymphocytes % 7.3; MCHC 31.9 % (32.0-36.0); MCV 81 fL (80-95); MPV 10.1 fL (8.0-11.0); Monocytes % 5.1; Neutrophils % 84.8; Platelet Count 437 10^3/uL (130-400); RBC 5.31 10^6/uL (3.93-5.22); RDW 14.5 % (11.7-14.6); RDW-SD 42.3 fL; WBC 12.27 10^3/uL (4.4-10.8)
[2023-10-20 07:21] LABS: Anion Gap 12.3 mmol/L (3-11); BUN 27 mg/dL (7-18); CO2 33.7 mmol/L (21.0-32.0); CREATININE 1.1 mg/dL (0.55-1.02); Calcium 9.4 mg/dL (8.5-10.1); Chloride 98 mmol/L (98-107); Estimated GFR 54.73 (mL/min/1.73m2); Glucose 166 mg/dL (74-106); Potassium 3.4 mmol/L (3.5-5.1); Sodium 144 mmol/L (136-145)
[2023-10-20 07:23] LABS: Absolute Basophil Count 0.02 10^3/uL (0.0-0.2)
[2023-10-20] MEDS: Cholecalciferol (Vitamin D3) 1,000 UNIT TAB 2000 UNITS PO (07:46)
[2023-10-20] MEDS: Normal Saline Flush 10 ML SYR IVP ×5 (07:46→22:11)
[2023-10-20] MEDS: Magnesium Chloride 64 MG TABCR PO ×2 (07:46→22:10)
[2023-10-20] MEDS: amLODIPine 5 MG TAB PO (07:46)
[2023-10-20] MEDS: Torsemide 20 MG TAB 80 MG PO ×2 (07:46→22:11)
[2023-10-20] MEDS: Benzonatate 100 MG CAP PO ×3 (07:47→22:11)
[2023-10-20] MEDS: Omeprazole 20 MG CAPCR 40 MG PO (07:47)
[2023-10-20] MEDS: Potassium Chloride 20 MEQ TABCR 40 MEQ PO ×2 (07:47→22:11)
[2023-10-20] MEDS: Escitalopram 10 MG TAB PO (07:47)
[2023-10-20] MEDS: Albuterol HFA 8 GM 60 PUFF INH IH ×2 (07:51→21:39)
[2023-10-20] MEDS: Budesonide/Formoterol 160/4.5 6 GM 60 PUFF INH IH ×2 (07:51→21:39)
[2023-10-20] MEDS: DOXYCYCLINE 100 MG in Normal Saline 100 ML IVPB ×2 (08:59→22:55)
[2023-10-20] MEDS: Enoxaparin 40 MG/0.4 ML SYR SC ×2 (10:35→23:00)
[2023-10-20] MEDS: POTASSIUM CHLORIDE 10 MEQ/100 ML BAG 100 MEQ IVINF ×2 (10:36→11:48)
[2023-10-20] MEDS: Cholestyramine/Aspartame PKT 1 EACH PO (10:36)
--- NOTE | 2023-10-20 10:45 | W.PM.PROGNOT ---
Date of Service Date of service: 10/20/23 Time of Service: 10:45 Assessment and Plan Assessment and plan (1) Acute hypoxic respiratory failure: Status: Acute Assessment and plan: Continue amp/sulbactam; convert to oral when discharged back to the [facility] Continue Steroids and bronchodilators for asthma Continue furosemide . (2) Aspiration pneumonia: Status: Ruled-out Assessment and plan: Continue amp/sulbactam day #4 Sputum culture - normal maite, rare growth viral panel neg STP recommends barium swallow which is scheduled for tomorrow, will be NPO after midnight. (3) Acute on chronic diastolic CHF (congestive heart failure): Status: Acute Assessment and plan: As above, continue diuretics (4) Acute asthmatic bronchitis: Status: Acute Assessment and plan: stop solumedrol IV and downstep to oral prednisone Continue albuterol/ipratropium. Continue home ICS/LABA (5) Schizophrenia: Status: Chronic Assessment and plan: Stable, continue home olanzapine and escitalopram (6) GERD (gastroesophageal reflux disease): Status: Chronic Assessment and plan: Continue PPI (7) DVT prophylaxis: Status: Acute Assessment and plan: LMWH, BID per pharmacy given BMI Plan to return to the [facility] if continues to improve Saturday or Saturday as skilled patient. Discussed with Dr Murray Subjective Subjective Patient reports: no new complaints, feels better and afebrile; denies shortness of breath Objective Last Vital Signs Temp 37.1 C 10/20/23 07:19 Pulse 91 H 10/20/23 07:19 Resp 20 10/20/23 07:19 BP 138/84 10/20/23 07:19 Pulse Ox 93 10/20/23 07:51 Laboratory Results - last 24 hr 10/20/23 06:50 WBC 12.27 H RBC 5.31 H Hgb 13.8 Hct 43.2 MCV 81 MCH 26.0 L MCHC 31.9 L RDW 14.5 Plt Count 437 H MPV 10.1 Immature Gran % 2.6 Neutrophils % 84.8 Lymphocytes % 7.3 Monocytes % 5.1 Eosinophils % 0.0 Basophils % 0.2 Nucleated RBC % 0.0 Absolute Neutrophils 10.40 H Absolute Lymphocytes 0.90 L Absolute Monocytes 0.63 Absolute Eosinophils 0.00 Absolute Basophils 0.02 Sodium 144 Potassium 3.4 L Chloride 98 Carbon Dioxide 33.7 H Anion Gap 12.3 H BUN 27 H Creatinine 1.1 H Est GFR (CKD-EPI 2020) 54.73 Glucose 166 H Calcium 9.4 Magnesium 2.0 Time Spent with Patient Time Spent with Patient: 25-34 minutes Time was spent: preparing to see the patient(eg.review tests), obtaining and/or reviewing separately otained hiistory, ordering medications,tests, procedures, indepentently interpreting results and counseling the patient
[2023-10-20] MEDS: OLANZapine 5 MG TAB 15 MG PO (22:11)
[2023-10-21 03:37] VITALS: BP 148/95; PULSE 98; RESP 18; TEMP 37.2; O2SAT 91
[2023-10-21] MEDS: AMPICILLIN/SULBACTAM 3 GM in Normal Saline 100 ML IVPB ×4 (05:00→21:38)
[2023-10-21] MEDS: guaiFENesin 200 MG/10 ML CUP 600 MG PO ×3 (05:00→21:38)
[2023-10-21] MEDS: Albuterol HFA 8 GM 60 PUFF INH IH ×2 (07:47→21:01)
[2023-10-21] MEDS: Budesonide/Formoterol 160/4.5 6 GM 60 PUFF INH IH ×2 (07:48→21:02)
--- NOTE | 2023-10-21 08:34 | W.PALPGNOTE ---
Date of service: 10/21/23 Time of Service: 08:34 Assessment and Plan Assessment and plan (1) Counseling regarding advance care planning and goals of care: Status: Acute (2) Schizophrenia: Status: Chronic (3) Aspiration pneumonia: Status: Ruled-out Assessment and plan: Please remember that 1 of Christie's few pleasures in life is the fact that she likes to drink soda. We have talked about making certain that she is sitting upright with her chin tucked. I have spoken with the nurses at the [facility] and she is only to have 3 to 4 ounces at a time. To take this away from her is taking away one of her few choices and pleasures in life. I did say that she might need to have this soda thickened some with some thicket. Schizophrenia?stable at this time. Unfortunately in the last 10 years I am seeing to times where Cheryle has gone into an exacerbation of her schizophrenia. She has been stable now for a few years. Mood?ever smiling Is very content at the [facility], loves her friends, and smiles all the time. At this point getting back to the [facility] as soon as she is medically able would be in her best interest. Question pneumonia versus atelectasis?on antibiotics Subjective Subjective Interval history since last seen: Cheryle told me that she has pneumonia. Today she is feeling much better. Overall she states that her breathing is good. She is anxious to get back to the [facility]. Exam Narrative Exam Narrative: Cheryle is her ever smiling self. Her breathing is full with good aeration. I do not hear any rales. I hear a few wheezes in the left lung. Her heart is regular. Her abdomen is soft nontender. She is very cooperative. Objective Last Vital Signs Temp 99.0 F 10/21/23 03:37 Pulse 98 H 10/21/23 03:37 Resp 18 10/21/23 03:37 BP 148/95 H 10/21/23 03:37 Pulse Ox 91 L 10/21/23 03:37 Barium Swallow MPRESSION: 1. 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 There is extensive retroperitoneal lymphadenopathy and ascites. 2. 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 Also occlusion of the splenic vein near the portal vein confluence and vascular compression and narrowing at multiple levels as described above. 3. Other findings as above. 4. 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 These may represent atelectasis or pneumonia.
[2023-10-21 08:37] VITALS: BP 141/98; PULSE 79; RESP 19; TEMP 36.9; O2SAT 91
--- NOTE | 2023-10-21 08:58 | CMPROGNOTE_ITS ---
Date of service: 10/21/23 Time of Service: 08:58 Care Management Progress Note Progress Note Text Progress Note Text: S/O: Christie was sitting in her recliner watching TV when CM met with her. She is pleasant and looking forward to going back to the [facility] when able. Anticipate discharge back to the [facility] tomorrow after her Barium swallow if remains medically remains medically stable. CM notified Nurse Jamison at the [facility]. Christie no longer requires supplemental O2 and stated that she is feeling better. Per pt, has lived at the [facility] for 4 years. She has never been or had children and the [facility] has become her home. Christie denies any new concerns today and returned her focus to the movie she was watching. A: Christie is a 68 year old woman admitted on 10/17/23 with pneumonia P:Anticipate Christie will be discharged back to the [facility] where she resides when medically ready. She will follow up with facility providers and plan of care and transport via RCT w/c van. CM will follow and continue to assess for discharge needs. SDOH(Care Management) Screening Will the Patient Participate in the Screening?: Unable to obtain Social Determinants of Health Comments(SDOH Details): pt resides at the [facility]
[2023-10-21] MEDS: Normal Saline Flush 10 ML SYR IVP ×3 (10:35→21:40)
[2023-10-21] MEDS: Enoxaparin 40 MG/0.4 ML SYR SC ×2 (10:35→21:40)
[2023-10-21] MEDS: DOXYCYCLINE 100 MG in Normal Saline 100 ML IVPB ×2 (11:17→23:06)
[2023-10-21 11:30] VITALS: BP 152/81; PULSE 92; RESP 19; TEMP 37.2; O2SAT 91
[2023-10-21] MEDS: Cholestyramine/Aspartame PKT 1 EACH PO (12:01)
[2023-10-21] MEDS: predniSONE 20 MG TAB 40 MG PO (12:01)
[2023-10-21] MEDS: Torsemide 20 MG TAB 80 MG PO ×2 (12:02→23:07)
[2023-10-21] MEDS: Cholecalciferol (Vitamin D3) 1,000 UNIT TAB 2000 UNITS PO (12:02)
[2023-10-21] MEDS: Magnesium Chloride 64 MG TABCR PO ×2 (12:02→23:08)
[2023-10-21] MEDS: Potassium Chloride 20 MEQ TABCR 40 MEQ PO ×2 (12:02→23:08)
[2023-10-21] MEDS: amLODIPine 5 MG TAB PO (12:03)
[2023-10-21] MEDS: Escitalopram 10 MG TAB PO (12:03)
[2023-10-21] MEDS: Omeprazole 20 MG CAPCR 40 MG PO (12:05)
--- NOTE | 2023-10-21 13:07 | PGE_ITS ---
Date of Service Date of service: 10/21/23 Time of Service: 13:07 Assessment and Plan Assessment and plan (1) Acute hypoxic respiratory failure: Status: Acute Assessment and plan: Continue amp/sulbactam; convert to oral when discharged back to the [facility] Continue Steroids and bronchodilators for asthma Continue furosemide . (2) Aspiration pneumonia: Status: Ruled-out Assessment and plan: Continue amp/sulbactam day #5 Sputum culture - normal maite, rare growth viral panel neg STP recommends barium swallow which is scheduled for tomorrow, will be NPO after midnight. (3) Acute on chronic diastolic CHF (congestive heart failure): Status: Acute Assessment and plan: As above, continue diuretics (4) Acute asthmatic bronchitis: Status: Acute Assessment and plan: stop solumedrol IV and downstep to oral prednisone Continue albuterol/ipratropium. Continue home ICS/LABA (5) Schizophrenia: Status: Chronic Assessment and plan: Stable, continue home olanzapine and escitalopram (6) GERD (gastroesophageal reflux disease): Status: Chronic Assessment and plan: Continue PPI (7) DVT prophylaxis: Status: Acute Assessment and plan: LMWH, BID per pharmacy given BMI Plan to return to the [facility] after her barium swallow on Saturday as skilled patient. Discussed with Dr Murray Subjective Subjective Patient reports: no new complaints, feels better, tolerating liquids well, tolerating a regular diet and afebrile; denies shortness of breath Interval history since last seen: Patient remains medically stable and tolerating oral intake. She has no new oxygen requirements. She has remained hospitalized awaiting a barium swallow unfortunately they will be unable to perform today Exam Narrative Exam Narrative: Obese chronically ill-appearing female older than stated age. Head is atraumatic normocephalic eyes nonicteric noninjected oral mucosa slightly dry neck with full range of motion no JVD cardiovascular regular rate and rhythm respirations are even and unlabored with diminished breath sounds in the bases abdomen soft nontender obese moves all extremities. Neurologic she is awake alert oriented no focal deficits psychiatric normal mood and affect Objective Last Vital Signs Temp 37.2 C 10/21/23 11:30 Pulse 92 H 10/21/23 11:30 Resp 19 10/21/23 11:30 BP 152/81 H 10/21/23 11:30 Pulse Ox 91 L 10/21/23 11:30 Time Spent with Patient Time Spent with Patient: 25-34 minutes Time was spent: preparing to see the patient(eg.review tests), obtaining and/or reviewing separately otained hiistory, ordering medications,tests, procedures, indepentently interpreting results and counseling the patient
[2023-10-21] MEDS: Benzonatate 100 MG CAP PO ×2 (14:59→21:44)
[2023-10-21 16:11] VITALS: BP 131/92; PULSE 96; RESP 19; TEMP 37.2; O2SAT 92
[2023-10-21 19:17] VITALS: BP 129/93; PULSE 111; RESP 20; TEMP 37.1; O2SAT 92
[2023-10-21] MEDS: OLANZapine 5 MG TAB 15 MG PO (21:44)
[2023-10-21 23:09] VITALS: BP 141/92; PULSE 98; RESP 20; TEMP 36.5; O2SAT 92
[2023-10-22] MEDS: guaiFENesin 200 MG/10 ML CUP 600 MG PO ×3 (04:37→22:29)
[2023-10-22] MEDS: AMPICILLIN/SULBACTAM 3 GM in Normal Saline 100 ML IVPB ×4 (04:37→22:28)
[2023-10-22] MEDS: Normal Saline Flush 10 ML SYR IVP ×4 (04:38→20:37)
[2023-10-22 06:44] LABS: Abs Immature Grans 0.27 10^3/uL (0.0-0.06); Basophils % 0.3; Eosinophils % 0.1; HCT 46.4 % (36.0-46.0); HGB 14.7 g/dL (11.2-15.7); Immature Grans % 1.5; Lymphocytes % 17.5; MCHC 31.7 % (32.0-36.0); MCV 82 fL (80-95); MPV 9.8 fL (8.0-11.0); Monocytes % 8.8; Neutrophils % 71.8; Nucleated RBC 0.1 % (0.0-0.3); Platelet Count 382 10^3/uL (130-400); RBC 5.66 10^6/uL (3.93-5.22); RDW 14.6 % (11.7-14.6); RDW-SD 43.6 fL
[2023-10-22 06:46] LABS: Absolute Basophil Count 0.05 10^3/uL (0.0-0.2); Absolute Eosinophil Count 0.02 10^3/uL (0.0-0.7); Absolute Lymphocyte Count 3.19 10^3/uL (1.2-3.4); Absolute Neutrophil Count 13.07 10^3/uL (1.2-6.7)
[2023-10-22 07:12] LABS: Anion Gap 8.5 mmol/L (3-11); BUN 30 mg/dL (7-18); CO2 37.5 mmol/L (21.0-32.0); Calcium 8.9 mg/dL (8.5-10.1); Chloride 103 mmol/L (98-107); Estimated GFR 61.36 (mL/min/1.73m2); Glucose 101 mg/dL (74-106); Sodium 149 mmol/L (136-145)
[2023-10-22 07:13] LABS: Diff Comment Diff Reviewed; RBC Morphology Normal
[2023-10-22 07:14] LABS: Potassium 2.7 mmol/L (3.5-5.1)
[2023-10-22] MEDS: Albuterol HFA 8 GM 60 PUFF INH IH ×2 (07:44→20:46)
[2023-10-22] MEDS: Budesonide/Formoterol 160/4.5 6 GM 60 PUFF INH IH ×2 (07:44→20:46)
[2023-10-22 08:06] VITALS: BP 134/99; PULSE 95; RESP 20; TEMP 36.7; O2SAT 92
[2023-10-22] MEDS: POTASSIUM CHLORIDE 20 MEQ/100 ML BAG 50 MEQ IVINF (08:09)
[2023-10-22 08:38] LABS: Lab Add On Test DONE
[2023-10-22] MEDS: Escitalopram 10 MG TAB PO (08:40)
[2023-10-22] MEDS: Cholecalciferol (Vitamin D3) 1,000 UNIT TAB 2000 UNITS PO (08:40)
[2023-10-22] MEDS: Potassium Chloride 20 MEQ TABCR 40 MEQ PO ×2 (08:41→20:38)
[2023-10-22] MEDS: Magnesium Chloride 64 MG TABCR PO ×2 (08:41→20:38)
[2023-10-22] MEDS: Omeprazole 20 MG CAPCR 40 MG PO (08:41)
[2023-10-22] MEDS: Benzonatate 100 MG CAP PO ×2 (08:41→20:38)
[2023-10-22] MEDS: amLODIPine 5 MG TAB PO (08:42)
[2023-10-22] MEDS: predniSONE 20 MG TAB 40 MG PO (08:42)
--- NOTE | 2023-10-22 08:50 | PDOC.CMPRO ---
Date of service: 10/22/23 Time of Service: 08:50 Care Management Progress Note Progress Note Text Progress Note Text: S/O: Christie was sitting up in her chair when CM met with her. She confirmed that she is going to have a barrium swallow evaluation this afternoon. Due to this happening late in the afternoon, she will likely not be able to return [place] [facility] [place] [place] tomorrow. CM reviewed this with Christie, who is agreeable to the plan and is looking forward to returning [place] [facility] [place] where she resides. CM updated Alba at the [facility] [place], stating that she will likely return tomorrow, which Alba was in support of. CM will continue to follow. A: Christie is a 68 year old woman admitted on 10/17/23 with pneumonia P:Anticipate Christie will be discharged back [place] [facility] [place] she resides when medically ready. She will follow up with facility providers and plan of care and transport via RCT w/c van. CM will follow and continue to assess for discharge needs. SDOH(Care Management) Screening Will the Patient Participate in the Screening?: Unable to obtain Social Determinants of Health Comments(SDOH Details): pt resides at the [facility]
[2023-10-22 08:58] LABS: Magnesium 1.8 mg/dL (1.8-2.4)
[2023-10-22] MEDS: Enoxaparin 40 MG/0.4 ML SYR SC ×2 (10:50→22:29)
[2023-10-22] MEDS: DOXYCYCLINE 100 MG in Normal Saline 100 ML IVPB ×2 (11:30→23:54)
--- NOTE | 2023-10-22 12:20 | W.PM.PROGNOT ---
Date of Service Date of service: 10/22/23 Time of Service: 12:20 Assessment and Plan Assessment and plan (1) Acute hypoxic respiratory failure: Status: Acute Assessment and plan: Continue amp/sulbactam; convert to oral when discharged back to the [facility] Continue Steroids and bronchodilators for asthma Continue furosemide . (2) Aspiration pneumonia: Status: Ruled-out Assessment and plan: Continue amp/sulbactam day #6 Sputum culture - normal maite, rare growth viral panel neg STP recommends barium swallow which is scheduled for tomorrow, will be NPO after midnight. (3) Acute on chronic diastolic CHF (congestive heart failure): Status: Acute Assessment and plan: As above, continue diuretics (4) Acute asthmatic bronchitis: Status: Acute Assessment and plan: stop solumedrol IV and downstep to oral prednisone Continue albuterol/ipratropium. Continue home ICS/LABA (5) Schizophrenia: Status: Chronic Assessment and plan: Stable, continue home olanzapine and escitalopram (6) GERD (gastroesophageal reflux disease): Status: Chronic Assessment and plan: Continue PPI (7) DVT prophylaxis: Status: Acute Assessment and plan: LMWH, BID per pharmacy given BMI Plan to return to the [facility] after her barium swallow on Saturday as skilled patient. Discussed with Dr Murray Subjective Subjective Patient reports: no new complaints, feels better, tolerating liquids well, tolerating a regular diet, bowel movement and afebrile; denies shortness of breath Exam Narrative Exam Narrative: Obese chronically ill-appearing female older than stated age. Head is atraumatic normocephalic eyes nonicteric noninjected oral mucosa slightly dry neck with full range of motion no JVD cardiovascular regular rate and rhythm respirations are even and unlabored with diminished breath sounds in the bases abdomen soft nontender obese moves all extremities. Neurologic she is awake alert oriented no focal deficits psychiatric normal mood and affect Objective Last Vital Signs Temp 36.7 C 10/22/23 08:06 Pulse 95 H 10/22/23 08:06 Resp 20 10/22/23 08:06 BP 134/99 H 10/22/23 08:06 Pulse Ox 92 10/22/23 08:06 Laboratory Results - last 24 hr 10/22/23 10/22/23 06:24 08:38 WBC 18.20 H RBC 5.66 H Hgb 14.7 Hct 46.4 H MCV 82 MCH 26.0 L MCHC 31.7 L RDW 14.6 Plt Count 382 MPV 9.8 Immature Gran % 1.5 Neutrophils % 71.8 Lymphocytes % 17.5 Monocytes % 8.8 Eosinophils % 0.1 Basophils % 0.3 Nucleated RBC % 0.1 Absolute Neutrophils 13.07 H Absolute Lymphocytes 3.19 Absolute Monocytes 1.60 H Absolute Eosinophils 0.02 Absolute Basophils 0.05 RBC Morphology Normal Sodium 149 H Potassium 2.7 L* Chloride 103 Carbon Dioxide 37.5 H Anion Gap 8.5 BUN 30 H Creatinine 1.0 Est GFR (CKD-EPI 2020) 61.36 Glucose 101 Calcium 8.9 Magnesium 1.8 Add-On Test Request DONE Time Spent with Patient Time Spent with Patient: 35-49 minutes Time was spent: preparing to see the patient(eg.review tests), obtaining and/or reviewing separately otained hiistory, ordering medications,tests, procedures, indepentently interpreting results and counseling the patient
[2023-10-22 14:37] LABS: Potassium 3.2 mmol/L (3.5-5.1)
--- NOTE | 2023-10-22 15:12 | DI.RAD_ITS ---
Exam(s) RF BARIUM SWALLOW EXAM: RF BARIUM SWALLOW CLINICAL HISTORY: ? reflux pneumonitis, asp pneumonia ruled out TECHNIQUE: 2D and realtime digital imaging was performed. CONTRAST MATERIAL: Thick barium was administered. COMPARISON: CR,XR XR PORTABLE CHEST AP from 10/17/2023 FINDINGS: The PA and lateral chest films show normal heart size and grossly clear lung reynaga. The lateral sticker hand view of the neck is unremarkable. The exam was quite limited due to patient immobility. Esophagus: The patient swallowed barium without difficulty. No mass is visible. Nostricture. Motility: Poor esophageal peristalsis, with sluggish esophageal emptying. There is no hiatal hernia. Due to lack of quantity of barium ingested, gastroesophageal reflux could not be elicited. Barium tablet not administered. IMPRESSION: Extremely limited exam. Poor esophageal motility. RADIATION DOSE DELIVERED: ada Peña=17.7 mGy
[2023-10-22 15:51] VITALS: BP 129/92; PULSE 114; RESP 24; TEMP 37.2; O2SAT 91
[2023-10-22] MEDS: OLANZapine 5 MG TAB 15 MG PO (20:37)
[2023-10-22] MEDS: Torsemide 20 MG TAB 80 MG PO (20:38)
[2023-10-22 22:50] VITALS: BP 118/82; PULSE 82; RESP 19; TEMP 36.9; O2SAT 92
[2023-10-23] MEDS: AMPICILLIN/SULBACTAM 3 GM in Normal Saline 100 ML IVPB ×2 (04:41→11:18)
[2023-10-23] MEDS: guaiFENesin 200 MG/10 ML CUP 600 MG PO ×2 (04:41→11:18)
[2023-10-23 07:43] VITALS: BP 135/95; PULSE 89; RESP 20; TEMP 36.1; O2SAT 94
[2023-10-23] MEDS: predniSONE 20 MG TAB 40 MG PO (08:06)
[2023-10-23] MEDS: Cholecalciferol (Vitamin D3) 1,000 UNIT TAB 2000 UNITS PO (08:07)
[2023-10-23] MEDS: Potassium Chloride 20 MEQ TABCR 40 MEQ PO (08:07)
[2023-10-23] MEDS: Magnesium Chloride 64 MG TABCR PO (08:07)
[2023-10-23] MEDS: Torsemide 20 MG TAB 80 MG PO (08:07)
[2023-10-23] MEDS: Escitalopram 10 MG TAB PO (08:07)
[2023-10-23] MEDS: amLODIPine 5 MG TAB PO (08:07)
[2023-10-23] MEDS: Omeprazole 20 MG CAPCR 40 MG PO (08:07)
[2023-10-23] MEDS: Normal Saline Flush 10 ML SYR IVP (08:08)
[2023-10-23] MEDS: Benzonatate 100 MG CAP PO (08:08)
[2023-10-23] MEDS: Albuterol HFA 8 GM 60 PUFF INH IH (08:23)
[2023-10-23] MEDS: Budesonide/Formoterol 160/4.5 6 GM 60 PUFF INH IH (08:23)
[2023-10-23] MEDS: Cholestyramine/Aspartame PKT 1 EACH PO (11:17)
[2023-10-23] MEDS: Enoxaparin 40 MG/0.4 ML SYR SC (11:19)
--- NOTE | 2023-10-23 11:23 | CMDISCH_ITS ---
Date of service: 10/23/23 Time of Service: 11:23 LACE Index Scoring Tool Questions: Length of Stay (in days): 4 - 6 Was the patient admitted via the E.D.?: Yes Comorbidities: Congestive Heart Failure E.D. Visits: 1 Answers: Total Score: 10 Risk of Readmission: High Risk Care Management Discharge Plan Reason for Hospitalization: aspiration pneumonia Discharge Plan: Christie is discharged back to the [facility] via RCT W/C van. Christie santiago ill follow up with community/ facility providers and her discharge plan of care as instructed. Patient/Family Education Needs: Review discharge instructions, limitations, medications and plan to follow up with community providers. Discuss ask me three. Services Needed at Discharge: Halfway Facility (Return to the [facility]) and Transportation (RCT w/c van) SDOH Health Related Social Needs: No Data to Display
[2023-10-23] MEDS: DOXYCYCLINE 100 MG in Normal Saline 100 ML IVPB (11:28)
--- NOTE | 2023-10-23 12:00 | DSE_ITS ---
Date of service: 10/23/23 Time of Service: 12:00 DS: Diagnosis Discharge Diagnosis (1) Aspiration pneumonia: Status: Ruled-out (2) Counseling regarding advance care planning and goals of care: Status: Acute (3) Schizophrenia: Status: Chronic Discharge Plan Disposition Patient Disposition: [facility] Care Facility(SNF) Condition: Stable Discharge Details Reason For Visit: hypoxia, aspiration pneumonia, asthma exacerbation Admit Date/Time: 10/17/23 02:24 Admit Provider: Cody Rm Attending Provider: Cody Rm Hospital Course Hospital Course: This is a morbidly obese 68-year-old female patient who resides at the [facility] past medical history significant for asthma, chronic diastolic heart failure, GERD who presented to the emergency department with hypoxic respiratory failure thought to be due to aspiration pneumonia. She responded to treatment and was weaned off oxygen. She began eating and drinking and returned to her baseline. She remained here over the weekend to undergo a swallow evaluation by speech which unfortunately was not completed until Saturday. Please see diet modifications as recommended by speech therapy. She has been afebrile oxygenating well on room air with no new complaints feeling back to her baseline. Her white count did remain elevated and was 18 at discharge thought to be secondary to her steroid use. she did complete a 7-day course of antibiotics and steroids and will be discharged home with no new prescriptions. discharge discussed with Dr Tay [place] Meds and New Rx's Prescriptions: Continued torsemide 20 mg tablet 80 mg PO BID escitalopram oxalate 10 mg tablet 10 mg PO DAILY amlodipine 5 mg tablet 5 mg PO DAILY guaifenesin [Tussin] 100 mg/5 mL liquid 200 mg PO Q6H PRN cholecalciferol (vitamin D3) 50 mcg (2,000 unit) capsule 50 mcg PO DAILY omeprazole 20 mg capsule,delayed release(DR/EC) 20 mg PO DAILY cholestyramine-aspartame 4 gram powder 50 pwd PO DAILY fluticasone propion-salmeterol [Advair HFA] 115-21 mcg/actuation HFA aerosol inhaler 2 puff inhalation BID ProAir RespiClick 90 mcg/actuation aerosol powdr breath activated 1 inh inhalation Q12H olanzapine 15 mg tablet 15 mg PO HS acetaminophen 325 mg Tablet 650 mg PO TID PRN PRN (Reason: Pain) cholestyramine (with sugar) 4 gram powder 4 pwd PO DAILY Changed potassium chloride [Klor-Con M20] 20 mEq tablet,ER particles/crystals 40 meq PO QMEALS Qty: 0 0RF Discharge Instructions Instructions: Hypokalemia (DC), Aspiration Pneumonia (DC) Additional Instructions: You have completed your course of antibiotics and steroids while in the hospital so there are no additional prescriptions needed at discharge. Continue recommendations by speech therapy to include: SOLIDS: 6-Soft & Bite-Sized Solids LIQUIDS: 0-Thin Liquids MEDICATIONS: Crushed in applesauce or pudding (Pt preference) STRATEGIES: [place] upright for all PO intake - out of bed/in chair as able Oral hygiene BID/2x per day Slow rate intake MAINTAIN UPRIGHT POSITION AT LEAST 60 MINUTES AFTER MEALS AVOID MEALS/SNACKS 2-3 HOURS BEFORE RECLINING SLEEP WITH HOB ELEVATED TO REDUCE NOCTURNAL REFLUX Level of Assistance/Supervision: Distant supervision for all PO intake Activity:: Activity as Tolerated Equipment/Supplies:: No Equipment Needed Diet:: As Tolerated Discharge Orders Discharge Orders: Discharge Order (Routine); Ordered 10/23/23 Ordered By: Bailey Oneal DS: Summary Time Spent with Patient providing and/or coordinating discharge services: Greater than 30 minutes Status at Discharge Functional status at discharge: uses cane/walker Overall status at discharge: patient is progressing back to baseline Mental Status: mental status grossly normal Speech and Movement: speech and movement normal Mood: congruent mood Affect: normal affect Quality:SDOH Health Related Social Needs: No Data to Display Exam Narrative Exam Narrative: Obese chronically ill-appearing female older than stated age. Head is atraumatic normocephalic eyes nonicteric noninjected oral mucosa slightly dry neck with full range of motion no JVD cardiovascular regular rate and rhythm respirations are even and unlabored with diminished breath sounds in the bases abdomen soft nontender obese moves all extremities. Neurologic she is awake alert oriented no focal deficits psychiatric normal mood and affect Psych Mental Status: mental status grossly normal Speech and Movement: speech and movement normal Mood: congruent mood Affect: normal affect DS: Data Vitals/I&O Vitals and I&O: Vital Signs Temperature 36.1 C L 10/23/23 07:43 Temperature Source Tympanic 10/23/23 07:43 Pulse 89 10/23/23 07:43 Pulse Rhythm Regular 10/23/23 11:34 Pulse 119 H 10/17/23 03:00 Respiratory Rate 20 10/23/23 07:43 Respiratory Effort Normal, Non-Labored 10/23/23 11:34 Respiratory Depth Normal 10/23/23 11:34 Respiratory Pattern Normal 10/23/23 11:34 Blood Pressure 135/95 H 10/23/23 07:43 Blood Pressure Mean 99 10/17/23 02:46 Pulse Oximetry 94 10/23/23 07:43 Oxygen Delivery Method Room Air 10/23/23 07:43 Oxygen Flow Rate 0 10/23/23 07:43 Pain Level 0 10/23/23 07:43 Comment Nurse Petra was notified about pulse, BP and O2. 10/22/23 15:51 Intake & Output 10/22/23 10/23/23 10/23/23 23:59 11:59 23:59 Intake Total 410 / 810 800 / 800 Output Total 1850 / 1850 Balance 410 / -890 -1050 / -1050 Weight 122.3 kg Intake: IV 310 / 710 200 / 200 Oral 100 / 100 600 / 600 Output: Urine 1850 / 1850 Other: Urine Color Yellow Yellow Urine Appearance Clear Clear Urine Odor Normal None Comment Did have purewick but now is out. Stool Size Moderate Small Stool Characteristics Soft Soft Brown Voiding Methods Bedside Commode Bedside Commode Data Completed and Pending Labs on day of discharge: Labs from last 24 hours 10/22/23 14:10 Potassium 3.2 L PFSH All Active Problems (Updated 10/17/23 @ 21:09 by Kori Saldana MD) Counseling regarding advance care planning and goals of care (Acute) Palliative care patient (Acute) DVT prophylaxis (Acute) Acute hypoxic respiratory failure (Acute) Cough (Acute) Weight gain (Acute) Onychomycosis (Acute) Schizophrenia (Chronic) Abdominal mass (Acute) unchange since 2019. 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 GERD (gastroesophageal reflux disease) (Chronic) Palliative care patient (Acute) Roxi Ramirez Acute on chronic diastolic CHF (congestive heart failure) (Acute) Medical History Dyskinesia of esophagus Low back pain Hip pain, bilateral Elevated WBC count Polycythemia Discharge planning issues Acute respiratory failure with hypoxia and hypercapnia Aspiration pneumonia Hematemesis [place] Gastric ulcer Asthma Cholestasis Cirrhosis Dysphagia UTI (urinary tract infection) Urinary retention Acute colitis Abdominal pain Tooth pain Catheter-associated urinary tract infection Anemia Catatonia associated with another mental disorder Gastrostomy in place Advance directive on file Has end of life care plan Weakness on right side of face Hypokalemia Hypernatremia Hypomagnesemia Esophageal dysmotility Dysphagia Bradycardia Hypothyroidism Hypertension Cognitive developmental delay Babinski response Spell of behavior change Atypical chest pain Dyspnea Altered mental status KJ (acute kidney injury) Schizophrenia Hypotension Surgical History H/O esophagogastroduodenoscopy and endoscopic ultrasound 08/2019 at [facility] H/O oophorectomy History of bilateral tubal ligation History of hernia repair Social History Smoking/Tobacco Use Status: Never Smoking risk assessment performed?: Yes Alcohol Intake: never Drug use: Never Substance use type: does not use Household members: none Housing: halfway Do you feel safe at home: Yes Do you feel safe in your relationship?: Yes Additional Social history: Resident @ [facility] [employer] Time Spent with Patient Time Spent with Patient: 45-69 minutes Time was spent: preparing to see the patient(eg.review tests), obtaining and/or reviewing separately otained hiistory, ordering medications,tests, procedures, indepentently interpreting results and counseling the patient
--- NOTE | 2023-10-23 12:40 | NUR.NOTE ---
Nursing Note: [facility]
== END 2023-10-23 13:26 | disposition skilled nursing facility (03) | DRG 202 ==
LOC: ER 02:46 → MS 03:24
PROVIDERS: Internal Medicine; Nurse Practitioner Acute Care; Nurse Practitioner Family; Admitting Provider Family Medicine; Emergency Provider Emergency Medicine Emergency Medical Services; Visit Provider Family Medicine
DX: J45.901 Unspecified asthma with (acute) exacerbation (principal); I50.33 Acute on chronic diastolic (congestive) heart failure; J96.01 Acute respiratory failure with hypoxia; Z68.41 Body mass index [BMI] 40.0-44.9, adult; F20.9 Schizophrenia, unspecified; K21.9 Gastro-esophageal reflux disease without esophagitis; Z66 Do not resuscitate; K22.2 Esophageal obstruction; E66.01 Morbid (severe) obesity due to excess calories; D89.84 IgG4-related disease; R41.89 Other symptoms and signs involving cognitive functions and awareness
CPT/HCPCS: 00123; 36415; 80048; 80053; 87040; 87637; 87641; 92526; 93005; 94640; 96365; 96375; 99285; J1650; 71045; 74221; 83605; 83735; 83880; 84132; 84484; 85025; 87070; 87205; 93010; 93041; 94664; 94667; 94668; 94760; 99223; 99231; 99232; 99239; J0295; J1940; J2543; J2919; J3475; J3480; J3490; J7512

== ENCOUNTER 2023-11-04 17:49 | Outpatient (REF) | payer MEDICARE, MEDICAID, SELFPAY ==
[2023-11-04 17:27] LABS: Absolute Lymphocyte Count 2.48 10^3/uL (1.2-3.4); Basophils % 0.4 %; Eosinophils % 2.5 %; HCT 42.7 % (36.0-46.0); HGB 13.3 g/dL (11.2-15.7); Immature Grans % 0.6 %; Lymphocytes % 14.9 %; MCH 26.4 pg (27.0-33.0); MCHC 31.1 % (32.0-36.0); MCV 85 fL (80-95); MPV 11.2 fL (8.0-11.0); Monocytes % 5.2 %; Neutrophils % 76.4 %; Platelet Count 344 10^3/uL (130-400); RBC 5.03 10^6/uL (3.93-5.22); RDW 15.2 % (11.7-14.6); WBC 16.67 10^3/uL (4.4-10.8)
[2023-11-04 17:33] LABS: Absolute Basophil Count 0.07 10^3/uL (0.0-0.2); Absolute Eosinophil Count 0.42 10^3/uL (0.0-0.7); Absolute Monocyte Count 0.87 10^3/uL (0.1-0.8); Absolute Neutrophil Count 12.74 10^3/uL (1.2-6.7)
[2023-11-04 17:51] LABS: ALT 31 U/L (14-59); AST 14 U/L (15-37); Albumin 3.1 g/dL (3.4-5.0); Alkaline Phosphatase 134 U/L (46-116); Anion Gap 10.6 mmol/L (3-11); BUN 15 mg/dL (7-18); Bilirubin, Total 0.3 mg/dL (0.2-1.0); CO2 31.4 mmol/L (21.0-32.0); CREATININE 0.8 mg/dL (0.55-1.02); Calcium 9.2 mg/dL (8.5-10.1); Chloride 98 mmol/L (98-107); Estimated GFR 80.21 (mL/min/1.73m2); Glucose 112 mg/dL (74-106); NT-proBNP 126 pg/mL (<300); Potassium 4.1 mmol/L (3.5-5.1); Sodium 140 mmol/L (136-145); Total Protein 6.9 g/dL (6.4-8.2)
== END 2023-11-04 17:50 | disposition home or self-care (01) ==
LOC: LBN 17:49
PROVIDERS: Visit Provider Nurse Practitioner Gerontology
DX: I11.0 Hypertensive heart disease with heart failure (principal); I50.32 Chronic diastolic (congestive) heart failure; E87.6 Hypokalemia
CPT/HCPCS: 80053; 83880; 85025

== ENCOUNTER 2023-11-06 16:12 | Outpatient (REF) | payer MEDICARE, MEDICAID, SELFPAY ==
[2023-11-06 19:08] LABS: Bilirubin Negative (Negative); Blood Negative (Negative); Clarity Clear (Clear); Glucose Negative (Negative); Ketones Negative (Negative); Leukocyte Esterase Negative (Negative); Nitrite Negative (Negative); Urobilinogen 0.2 mg/dL (Up to 0.2); pH 6.5 (5-8)
== END 2023-11-06 16:13 | disposition home or self-care (01) ==
LOC: LBN 16:12
PROVIDERS: Visit Provider Family Medicine
DX: G89.4 Chronic pain syndrome (principal); R68.89 Other general symptoms and signs; B96.89 Other specified bacterial agents as the cause of diseases classified elsewhere
CPT/HCPCS: 81003; 87086

== ENCOUNTER 2023-11-11 18:10 | Outpatient (REF) | payer MEDICARE, MEDICAID, SELFPAY ==
[2023-11-11 18:46] LABS: ALT 34 U/L (14-59); AST 18 U/L (15-37); Alkaline Phosphatase 106 U/L (46-116); Anion Gap 5.5 mmol/L (3-11); BUN 12 mg/dL (7-18); Bilirubin, Total 0.2 mg/dL (0.2-1.0); CO2 35.5 mmol/L (21.0-32.0); CREATININE 0.9 mg/dL (0.55-1.02); Calcium 8.7 mg/dL (8.5-10.1); Chloride 99 mmol/L (98-107); Estimated GFR 69.64 (mL/min/1.73m2); Glucose 149 mg/dL (74-106); NT-proBNP 245 pg/mL (<300); Sodium 140 mmol/L (136-145); Total Protein 6.5 g/dL (6.4-8.2)
[2023-11-11 18:55] LABS: Potassium 2.7 mmol/L (3.5-5.1)
[2023-11-11 20:03] LABS: Abs Immature Grans 0.06 10^3/uL (0.0-0.06); Absolute Basophil Count 0.05 10^3/uL (0.0-0.2); Absolute Eosinophil Count 0.76 10^3/uL (0.0-0.7); Absolute Lymphocyte Count 1.93 10^3/uL (1.2-3.4); Absolute Monocyte Count 0.93 10^3/uL (0.1-0.8); Absolute Neutrophil Count 9.31 10^3/uL (1.2-6.7); Basophils % 0.4 %; Eosinophils % 5.8 %; HCT 37.2 % (36.0-46.0); HGB 11.9 g/dL (11.2-15.7); Immature Grans % 0.5 %; Lymphocytes % 14.8 %; MCH 27.2 pg (27.0-33.0); MCV 85 fL (80-95); MPV 10.4 fL (8.0-11.0); Monocytes % 7.1 %; Neutrophils % 71.4 %; Platelet Count 336 10^3/uL (130-400); RBC 4.38 10^6/uL (3.93-5.22); RDW 14.7 % (11.7-14.6); RDW-SD 45.1 fL; WBC 13.04 10^3/uL (4.4-10.8)
== END 2023-11-11 18:11 | disposition home or self-care (01) ==
LOC: LBN 18:10
PROVIDERS: Visit Provider Nurse Practitioner Gerontology
DX: I50.9 Heart failure, unspecified (principal)
CPT/HCPCS: 80053; 83880; 85025

== ENCOUNTER 2023-11-12 18:23 | Outpatient (REF) | payer MEDICARE, MEDICAID, SELFPAY ==
[2023-11-12 18:47] LABS: Potassium 3.3 mmol/L (3.5-5.1)
== END 2023-11-12 18:24 | disposition home or self-care (01) ==
LOC: LBN 18:23
PROVIDERS: Visit Provider Nurse Practitioner Gerontology
DX: G89.4 Chronic pain syndrome (principal); E87.6 Hypokalemia
CPT/HCPCS: 84132

== ENCOUNTER 2023-11-15 07:51 | Outpatient (REF) | payer MEDICARE, MEDICAID, SELFPAY ==
[2023-11-14 18:08] LABS: Potassium 3.7 mmol/L (3.5-5.1)
== END 2023-11-15 07:52 | disposition home or self-care (01) ==
LOC: LBN 07:51
PROVIDERS: Visit Provider Nurse Practitioner Gerontology
DX: E87.6 Hypokalemia (principal)
CPT/HCPCS: 84132

== ENCOUNTER 2023-11-19 15:26 | Outpatient (REF) | payer SELFPAY ==
[2023-11-19 18:30] LABS: ALT 34 U/L (14-59); AST 17 U/L (15-37); Albumin 3.6 g/dL (3.4-5.0); Alkaline Phosphatase 109 U/L (46-116); Anion Gap 8.6 mmol/L (3-11); BUN 22 mg/dL (7-18); Bilirubin, Total 0.2 mg/dL (0.2-1.0); CO2 34.4 mmol/L (21.0-32.0); Calcium 9.9 mg/dL (8.5-10.1); Chloride 96 mmol/L (98-107); Estimated GFR 61.36 (mL/min/1.73m2); Glucose 126 mg/dL (74-106); Potassium 4.2 mmol/L (3.5-5.1); Sodium 139 mmol/L (136-145); Total Protein 7.2 g/dL (6.4-8.2)
== END 2023-11-19 15:27 | disposition home or self-care (01) ==
LOC: LBN 15:26
PROVIDERS: Visit Provider Nurse Practitioner Gerontology
DX: J96.01 Acute respiratory failure with hypoxia (principal); R53.81 Other malaise; R53.83 Other fatigue
CPT/HCPCS: 80053

== ENCOUNTER 2024-07-06 18:53 | Outpatient (REF) | payer MEDICARE, MEDICAID, SELFPAY ==
[2024-07-06 18:24] LABS: Abs Immature Grans 0.03 10^3/uL (0.0-0.06); Absolute Basophil Count 0.07 10^3/uL (0.0-0.2); Absolute Eosinophil Count 0.29 10^3/uL (0.0-0.7); Absolute Monocyte Count 0.82 10^3/uL (0.1-0.8); Absolute Neutrophil Count 6.11 10^3/uL (1.2-6.7); Basophils % 0.8 %; Eosinophils % 3.1 %; HCT 38.8 % (36.0-46.0); HGB 11.5 g/dL (11.2-15.7); Immature Grans % 0.3 %; Lymphocytes % 20.6 %; MCH 24.1 pg (27.0-33.0); MCHC 29.6 % (32.0-36.0); MCV 81 fL (80-95); MPV 10.9 fL (8.0-11.0); Monocytes % 8.9 %; Neutrophils % 66.3 %; Platelet Count 330 10^3/uL (130-400); RBC 4.77 10^6/uL (3.93-5.22); RDW 15.2 % (11.7-14.6); RDW-SD 45.4 fL; WBC 9.22 10^3/uL (4.4-10.8)
--- OUTSIDE RECORDS SUMMARY | 2024-07-06 18:58 | XMS_ITS | Encounter Summary ---
Author Organization [facility] [place] [address] Care Team Providers Care Sole Leveler Machine Name Role Phone Ann Marie Roa MD Primary Care Provi ben Encounter Details Date Type Department Care Team (Late st Contact Info) Description 08/29/2022 Telephone [place] [phone] Shellie Herrera Social History Tobacco Use Types Packs/Day Years Used Date Smoking Tobacco: Never Smokeless Tobacco: Never Alcohol Use Standard Drinks/Week Comments Never 0 (1 standard drink = 0.6 oz pur e alcohol) Sex and Gender Information Value Date Recorded Sex Assigned at Not on file Gender Identity Not on file Sexual Orientation Not on file documented as of this encounter Miscellaneous Notes * Telephone Encounter - Shellie Herrera - 08/29/2022 11:36 AM EST Called the [facility] and spoke to the police department secretary who said the one who schedules appts is in a meeting. Per vilma traige pt needs OV or TH visit with hepatology provider prior to scheduling EGD documented in this encounter Plan of Treatment Not on file documented as of this encounter Visit Diagnoses Not on filedocumented in this encounter Care Teams Sole Leveler Machine Relationship Specialty Start Date End Date Ann Marie Roa MD [address] [place] [address] PCP - General Family Medicine 05/02/20 documented as of this encounter
--- OUTSIDE RECORDS SUMMARY | 2024-07-06 18:58 | XMS_ITS | Encounter Summary ---
Author Organization [facility] Address [address] [place] [id number] Care Team Providers Care Cytogenetic Technician Name Role Phone Souleymane Muller MD Primary Care Provider [phone] Encounter Details Date Type Department Care Team (Latest Contact Info) Description 08/16/2015 7:12 EST - 08/16/2015 11:36 EST Hospital Encounter [address] [address] Unknown, Provider, MD Discharge Disposition: Home or Self Care Social History Tobacco Use Types Packs/Day Years Used Date Smoking Tobacco: Never Assessed Comments Unknown Sex and Gender Information Value Date Recorded Sex Assigned at Not on file Legal Sex Female 18:24 EST Gender Identity Not on file Sexual Orientation Not on file documented as of this encounter Discharge Disposition Disposition Code Departure Means Destination Home or Self Alf documented in this encounter Plan of Treatment Not on file documented as of this encounter Visit Diagnoses Not on filedocumented in this encounter Care Teams Cytogenetic Technician Relationship Specialty Start Date End Date Souleymane Muller MD [address] [place] [id number] PCP - General 12/09/13 documented as of this encounter
--- OUTSIDE RECORDS SUMMARY | 2024-07-06 18:58 | XMS_ITS | Encounter Summary ---
Author Organization [facility] Address [facility] [place] [address] Care Team Providers Care Ware Server Name Role Phone Roxi Ramirez MD Primary Care Provider [phone] Encounter Details Date Type Department Care Team (Late st Contact Info) Description 01/18/2020 4:10 PM EDT Ancillary Procedure Radiology Library at [facility] [place] [id number] Xavier Barton MD [facility] [place] [address] Social History Tobacco Use Types Packs/Day Years Used Date Smoking Tobacco: Never Smokeless Tobacco: Never Alcohol Use Standard Drinks/Week Comments Never 0 (1 standard drink = 0.6 oz pur e alcohol) Sex and Gender Information Value Date Recorded Sex Assigned at Not on file Gender Identity Not on file Sexual Orientation Not on file documented as of this encounter Plan of Treatment Not on file documented as of this encounter Procedures Procedure Name Priority Date/Time Associated Diagnosis Comments FILM LIBRARY STORAGE ONLY ULTRASOUND STUDY Routine 01/18/2020 4:07 PM EDT documented in this encounter Results * Film Library- Storage Only Ultrasound Study (01/18/2020 4:07 PM EDT) Narrative [facility] - 01/18/2020 4:07 PM EDT This exam is auto-finalizing. It's purpose is for storage only. Xavier Barton MD IMG FILM LIBRARY ORD ERABLES [facility] [place], [place] documented in this encounter Visit Diagnoses Not on filedocumented in this encounter Care Teams Ware Server Relationship Specialty Start Date End Date Roxi Ramirez MD [address] [place] [address] PCP - General Family Medicine 08/25/19 05/01/20 documented as of this encounter
--- OUTSIDE RECORDS SUMMARY | 2024-07-06 18:58 | XMS_ITS | Encounter Summary ---
Author Organization [facility] [place] [address] Care Team Providers Care Improvement Spec Name Role Phone Roxi Ramirez MD Primary Care Provider [phone] Encounter Details Date Type Department Care Team (Late st Contact Info) Description 01/18/2020 Telephone [place] [phone] Adri Brock MD Social History Tobacco Use Types Packs/Day Years [...] encounter Miscellaneous Notes * Telephone Encounter - Adri Brock MD - 01/18/2020 4:13 PM EDT Transfer Center Call: I received a call from Dr. Murray at [facility]. Briefly, this is a 64 y/o F w/PMH of oropharyngeal dysphagia 2/2 schizophrenia with catatonia, prior PEG that was removed as she was able to swallow again for a while. She was admitted after choking on chicken then had a small amount of hematemesis that is now resolved. She has not been able to tolerate her secretions now for several days. CT 2 days ago showed fluid filled distal esophagus EGD/EUS (08/25/19) Findings: ?The esophagus was normal until the distal esophagus ?where there was LA Class A esophagitis distally just ?at the GE junction. ?The stomach was normal with the exception of a small ?- 5 mm- clean-based ulcer along the lesser curvature. ?Multiple biopsies were taken with a cold forceps for ?histology, ?The duodenum was normal. They do have surgeons who are able to perform endoscopy, but do not feel comfortable doing so. Based on the information provided to me, the general recommendations for this type of patient is urgent transfer of this patient for urgent endoscopy for likely food impaction. She is at much higher risk for perforation due to the fact that the food bolus has likely been present for several days. This is not an official consult, as my recommendations are limited by my inability to interview andexamine the patient as well as personally review the medical record, imaging, and laboratory findings. Adri Brock MD Gastroenterology Fellow 01/18/2020 4:13 PM Pager #[phone] documented in this encounter Plan of Treatment Not on file documented as of this encounter Visit Diagnoses Not on filedocumented in this encounter Care Teams Improvement Spec Relationship Specialty Start Date End Date Roxi Ramirez MD [address] [place] [address] PCP - General Family Medicine 08/25/19 05/01/20 documented as of this encounter
--- OUTSIDE RECORDS SUMMARY | 2024-07-06 18:58 | XMS_ITS | Encounter Summary ---
Author Organization [facility] Address [address] [place] [address] Care Team Providers Care Semiconductor Equipment Technician Name Role Phone Unavailable Primary Care Provider Unavailabl e Encounter Details Date Type Department Care Team (Late st Contact Info) Description 01/31/2001 Results Only [facility] - Map conversion [address] [place] [address] Alejandra Schultz, [facility] [address] [place] [place] [address] [place] [address] Social History Tobacco Use Types Packs/Day Years [...] Procedure Name Priority Date/Time Associated Diagnosis Comments CYTOPATHOLOGY Routine 01/31/2001 0:00 EDT documented in this encounter Results * CYTOPATHOLOGY (01/31/2001 0:00 EDT) Pathology Report: CYTOPATHOLOGY REPORT Reports generated via electronic interface contain original data; however they are lacking the format of the original report. Caution should be taken when reading/interpreti ng unformatted reports. Name: ? KYLE CHRISTIE Sophia ? Accession #: ? [id number] : ? 1955 (Age: 45) ??F ?Collect Date: ? 01/31/2001 Location: ? [facility] ? Receive Date: ? 02/03/2001 Provider: ?ALEJANDRA SCHULTZ RECREATION PROGRAM SPECIALIST Copy to: ? Specimen/Source: ?ThinPrep Pap Test, Cervix/Endocervix Last Menstrual Period: ? 01/03/01 ? SPECIMEN ADEQUACY ? Satisfactory for evaluation. GENERAL CATEGORIZATION ? Within Normal Limits ? Document reviewed and electronically signed by: ? MARELY Long(ASCP) ? Report Date: ??02/10/2001 13:50 End of Report [facility] 01/31/2001 02/03/2001 Alejandra Schultz RECREATION PROGRAM SPECIALIST PATHOLOGY ORDERABLES Final R esult [facility] [address] [place] [address] documented in this encounter Visit Diagnoses Not on filedocumented in this encounter
--- OUTSIDE RECORDS SUMMARY | 2024-07-06 18:58 | XMS_ITS | Referral Summary ---
Author Organization [facility] Address [address] [place] [address] Care Team Providers Care Patient Accounts Manager Name Role Phone Souleymane Muller MD Primary Care Provider [phone] Social History Tobacco Use Types Packs/Day Years Used Date Smoking Tobacco: Never Assessed Comments Unknown Sex and Gender Information Value Date Recorded Sex Assigned at Not on file Legal Sex Female 18:24 EST Gender Identity Not on file Sexual Orientation Not on file Plan of Treatment Not on file Care Teams Patient Accounts Manager Relationship Specialty Start Date End Date Souleymane Muller MD [address] [place] [address] PCP - General 12/09/13
--- OUTSIDE RECORDS SUMMARY | 2024-07-06 18:58 | XMS_ITS | Encounter Summary ---
[facility] [place] [address] Care Team Providers Care Drafter Electronic Name Role Phone Ann Marie Roa MD Primary Care Provi ben Encounter Details Date Type Department Care Team (Late st Contact Info) Description 07/06/2022 [place] [phone] Jessica Zaman Social History Tobacco Use Types Packs/Day Years [...] encounter Miscellaneous Notes * Telephone Encounter - Jessica Zaman - 07/06/2022 9:58 AM EST Per note-pt needs Clinic OV/TH prior to procedure scheduling. Will need new order. Sent to Clinic Schedulers. Old cases closed. documented in this encounter Plan of Treatment Not on file documented as of this encounter Visit Diagnoses Not on filedocumented in this encounter Care Teams Drafter Electronic Relationship Specialty Start Date End Date Ann Marie Roa MD [address] [place] [address] PCP - General Family Medicine 05/02/20 documented as of this encounter
--- OUTSIDE RECORDS SUMMARY | 2024-07-06 18:58 | XMS_ITS | Encounter Summary ---
Author Organization [facility] Address [address] [place] [address] Care Team Providers Care Crochet Beader Name Role Phone Unavailable Primary Care Provider Unavailabl e Encounter Details Date Type Department Care Team (Late st Contact Info) Description 02/06/[address] [facility] - Map conversion [address] [place] [address] Alejandra Schultz, [facility] [address] [place] [address] [place] [address] Social History Tobacco Use Types [...] Priority Date/Time Associated Diagnosis Comments CYTOPATHOLOGY Routine 02/06/2002 0:00 EDT documented in this encounter Results * CYTOPATHOLOGY (02/06/2002 0:00 EDT) Pathology Report: CYTOPATHOLOGY REPORT Reports generated via electronic interface contain original data; however they are lacking the format of the original report. Caution should be taken when reading/interpreti ng unformatted reports. Name: ? KYLE CHRISTIE Sophia ? Accession #: ? [id number] : ? 1955 (Age: 46) ??F ?Collect Date: ? 02/06/2002 Location: ? [facility] ? Receive Date: ? 02/10/2002 Provider: ?ALEJANDRA SCHULTZ STUDIO CAMERA OPERATOR Copy to: ? Specimen/Source: ?ThinPrep Pap Test, Cervix/Endocervix Last Menstrual Period: ? 02/01/02 ? SPECIMEN ADEQUACY ? Satisfactory for Evaluation - transformation zone component present GENERAL CATEGORIZATION ? Negative for Intraepithelial Lesion or Malignancy ? Document reviewed and electronically signed by: ? MARELY Morrissey(ASCP) ? Report Date: ??02/11/2002 07:50 End of Report FABIOLA COLÓN 02/06/2002 02/10/2002 us Alejandra Schultz STUDIO CAMERA OPERATOR PATHOLOGY ORDERABLES Final R esult [facility] [address] [place] [address] documented in this encounter Visit Diagnoses Not on filedocumented in this encounter
--- OUTSIDE RECORDS SUMMARY | 2024-07-06 18:58 | XMS_ITS | Encounter Summary ---
Author Organization [facility] Address [address] [place] [address] Care Team Providers Care Luggage Repairer Name Role Phone Souleymane Muller MD Primary Care Provider [phone] Encounter Details Date Type Department Care Team (Late st Contact Info) Description 03/01/2021 Lab Requisition [facility] Pathology & Laboratory Medicine - [address] [address] Outr Resulting Lab, Provider Social History Tobacco Use Types Packs/Day Years [...] Procedure Name Priority Date/Time Associated Diagnosis Comments PTH INTACT Routine 02/28/2021 8:52 EDT AFP TUMOR MARKER Routine 02/28/2021 8:52 EDT PROLACTIN Routine 02/28/2021 8:52 EDT documented in this encounter Results * (ABNORMAL) PTH INTACT (02/28/2021 8:52 EDT) Intact PTH 164(H) 19 - 88 pg/mL 03/02/2021 10:01 EDT [facility] Blood VENOUS BLOOD / Unknown 02/28/2021 8:52 EDT 03/01/2021 16:31 EDT Provider Outr Resulting Lab CHEMISTRY & BLOOD GA S ORDERABLES Final Result Performing Organization Address [facility] de Phone Number [facility] [address] [place] [address] * PROLACTIN (02/28/2021 8:52 EDT) [facility] Prolactin 36.1 See Table ng/mL 03/01/2021 17:59 EDT [facility] Comment: NOTE: Female Reference Ranges: PHYSIOLOGICAL STATUS ?EXPECTED RANGE ? Postmenopausal ?1.8 - 20.3 ng/mL ?9.7 - 208.5 ng/mL Non- ?2.8 - 29.2 ng/mL Reference Ranges for Prolactin in female patients <18 years old have not been established. Blood VENOUS BLOOD / Unknown 02/28/2021 8:52 EDT 03/01/2021 16:31 EDT us Provider Outr Resulting Lab CHEMISTRY & BLOOD GA S ORDERABLES Final Result Performing Organization Address [facility] Co de Phone Number [facility] [address] [place] [address] * AFP TUMOR MARKER (02/28/2021 8:52 EDT) [facility] AFP Tumor Marker 2.8 <8.1 ng/mL 03/01/2021 17:31 EDT [facility] Comment: AFP Tumor Marker cannot be interpreted in females. ?? NOTE: Serum AFP concentrations should not be interpreted as absolute evidence for the presence or absence of malignant disease. Assayed on Siemens ADVIA Centaur XPT using chemiluminescent technology. ??Values obtained by using different assay methods cannot be used interchangeably. Blood VENOUS BLOOD / Unknown 02/28/2021 8:52 EDT 03/01/2021 16:31 EDT us Provider Outr Resulting Lab CHEMISTRY & BLOOD GA S ORDERABLES Final Result Performing Organization Address City/State/[facility] Co de Phone Number [facility] [address] [place] [address] documented in this encounter Visit Diagnoses Not on filedocumented in this encounter Care Teams Luggage Repairer Relationship Specialty Start Date End Date Souleymane Muller MD [address] [place] [address] PCP - General 12/09/13 documented as of this encounter
--- OUTSIDE RECORDS SUMMARY | 2024-07-06 18:58 | XMS_ITS | Encounter Summary ---
Author Organization [facility] Address [facility] [place] [address] Care Team Providers Care Worm Grower Name Role Phone Roxi Ramirez MD Primary Care Provider [phone] Encounter Details Date Type Department Care Team (Late st Contact Info) Description 01/16/2020 12:10 AM EDT Ancillary Procedure Radiology Library at [facility] [place] [phone] Xavier Barton MD [facility] [place] [address] Social History Tobacco Use Types Packs/Day Years [...] Associated Diagnosis Comments FILM LIBRARY STORAGE ONLY DX SPINE Routine 01/16/2020 12:10 AM EDT documented in this encounter Results * Film Library- Storage Only DX Spine (01/16/2020 12:10 AM EDT) Narrative [facility] - 01/18/2020 4:06 PM EDT This exam is auto-finalizing. It's purpose is for storage only. Xavier Barton MD IMG FILM LIBRARY ORD ERABLES [facility] [place] documented in this encounter Visit Diagnoses Not on filedocumented in this encounter Care Teams Worm Grower Relationship Specialty Start Date End Date Roxi Ramirez MD [address] [place] [address] PCP - General Family Medicine 08/25/19 05/01/20 documented as of this encounter
--- OUTSIDE RECORDS SUMMARY | 2024-07-06 18:58 | XMS_ITS | Encounter Summary ---
Author Organization [facility] Address [address] [place] [address] Care Team Providers Care Furnace Liner Name Role Phone Unavailable Primary Care Provider Unavailabl e Encounter Details Date Type Department Care Team (Late st Contact Info) Description 03/08/2009 Orders Only [facility] Laboratory Services - [facility] [address] [place] [address] Geraldine Smiley MD [address] [place] [address] [place] [address] Social History Tobacco Use Types Packs/Day Years [...] Priority Date/Time Associated Diagnosis Comments CYTOPATHOLOGY Routine 03/08/2009 0:00 EDT documented in this encounter Results * CYTOPATHOLOGY (03/08/2009 0:00 EDT) Pathology Report: CYTOPATHOLOGY REPORT ? Reports generated via electronic interface contain original data; ? however they are lacking the format of the original report. ? Caution should be taken when reading/interpreti ng unformatted reports. ? Name: ? WRIGHT, CHRISTIE M ? Accession #: ? [id number] ? : ? 1955 (Age: 53) ??F ?Collect Date: ? 03/08/2009 ? Location: ? [facility] ? Receive Date: ? 03/08/2009 ? Provider: ?GERALDINE SMILEY MD ? Copy to: ? Specimen/Source: ?Pap Test, Cervix/Endocervix, ThinPrep Imaging System ? with manual evaluation ? Last Menstrual Period: ? 4/1/09 ? Other: ? HPVA - HPV testing requested if ASC-US on the current ThinPrep Pap test. ? SPECIMEN ADEQUACY ? Satisfactory for Evaluation ? - transformation zone component present ? - scant squamous epithelial component ? GENERAL CATEGORIZATION ? Negative for Intraepithelial Lesion or Malignancy ? Document reviewed and electronically signed by: ? Rosalba Alen, CT(ASCP) ? Report Date: ??03/14/2009 15:13 ? End of Report ? FABIOLA COLÓN 03/08/2009 03/08/2009 us Geraldine Smiley MD PATHOLOGY ORDERABLES Final Resu lt [facility] [address] [place] [address] documented in this encounter Visit Diagnoses Not on filedocumented in this encounter
--- OUTSIDE RECORDS SUMMARY | 2024-07-06 18:58 | XMS_ITS | Encounter Summary ---
Author Organization [facility] Address [address] [place] [address] Care Team Providers Care Vice President Of Software Development Name Role Phone Souleymane Muller MD Primary Care Provider [phone] Encounter Details Date Type Department Care Team (Late st Contact Info) Description 07/07/2019 Lab Requisition [facility] Pathology & Laboratory Medicine - [address] [address] Unknown, Provider, Social History Tobacco Use Types Packs/Day Years [...] Procedure Name Priority Date/Time Associated Diagnosis Comments HOLD SST Routine 07/07/2019 21:33 EST RHEUMATOID FACTOR Routine 07/07/2019 6:05 EST TRANSFERRIN Routine 07/07/2019 6:05 EST documented in this encounter Results * HOLD SST (07/07/2019 21:33 EST) Hold Hold 07/07/2019 22:45 EST [facility] Blood VENOUS BLOOD / Unknown 07/07/2019 21:33 EST 07/07/2019 21:33 EST us Provider Unknown MD LAB INFO SERVICE AND SUPPORT & PHONE RESULT Final Result [facility] [address] [place] [address] * TRANSFERRIN (07/07/2019 6:05 EST) Transferrin 233 201 - 352 mg/dL 07/08/2019 13:45 EST [facility] Blood VENOUS BLOOD / Unknown 07/07/2019 6:05 EST 07/07/2019 21:32 EST us Provider Unknown MD CHEMISTRY & BLOOD GAS ORDERA BLES Final Result [facility] [address] [place] [address] * RHEUMATOID FACTOR (07/07/2019 6:05 EST) Rheumatoid Factor <7.5 <12.5 IU/mL 07/08/2019 13:45 EST [facility] Blood VENOUS BLOOD / Unknown 07/07/2019 6:05 EST 07/07/2019 21:32 EST us Provider Unknown MD CHEMISTRY & BLOOD GAS ORDERA BLES Final Result [facility] [address] [place] [address] documented in this encounter Visit Diagnoses Not on filedocumented in this encounter Care Teams Vice President Of Software Development Relationship Specialty Start Date End Date Souleymane Muller MD [address] [place] [address] PCP - General 12/09/13 documented as of this encounter
--- OUTSIDE RECORDS SUMMARY | 2024-07-06 18:58 | XMS_ITS | Encounter Summary ---
[place] [address] Care Team Providers Care Sorority Supervisor Name Role Phone Roxi Ramirez MD Primary Care Provider [phone] Encounter Details Date Type Department Care Team (Late st Contact Info) Description 02/11/2020 Telephone [place] [phone] Luis Antonio Frederick Social History Tobacco Use Types Packs/Day Years [...] encounter Miscellaneous Notes * Telephone Encounter - Luis Antonio Frederick - 02/11/2020 9:51 AM EDT The GI Telehealth Educate Team attempted to contact patient to check their readiness for their upcoming telehealth visit in GI. Isra Frederick Patient Experience Navigator Section of Gastroenterology and Hepatology documented in this encounter Plan of Treatment Not on file documented as of this encounter Visit Diagnoses Not on filedocumented in this encounter Care Teams Sorority Supervisor Relationship Specialty Start Date End Date Roxi Ramirez MD [address] [place], [place] [id number] PCP - General Family Medicine 08/25/19 05/01/20 documented as of this encounter
--- OUTSIDE RECORDS SUMMARY | 2024-07-06 18:58 | XMS_ITS | Encounter Summary ---
Author Organization [facility] Address [address] [place] [address] Care Team Providers Care Target Aircraft Technician Name Role Phone Unavailable Primary Care Provider Unavailabl e Encounter Details Date Type Department Care Team (Late st Contact Info) Description 12/08/1999 Results Only [facility] - Maple conversion [address] [place] [address] Sanchez Arias MD [address] [facility] [address] [address] Social History Tobacco Use Types Packs/Day Years [...] Priority Date/Time Associated Diagnosis Comments CYTOPATHOLOGY Routine 12/08/1999 0:00 EDT documented in this encounter Results * CYTOPATHOLOGY (12/08/1999 0:00 EDT) Pathology Report: CYTOPATHOLOGY REPORT Reports generated via electronic interface contain original data; however they are lacking the format of the original report. Caution should be taken when reading/interpreti ng unformatted reports. Name: ? CHRISTIE WRIGHT ? Accession #: ? [id number] : ? 1955 (Age: 44) ??F ?Collect Date: ? 12/08/1999 Location: ? [facility] ? Receive Date: ? 12/11/1999 Provider: ?SANCHEZ ARIAS MD Copy to: ? Specimen/Source: ?Conventional Pap Test, Cervix/Endocervix Last Menstrual Period: ? 11/16/99 ? SPECIMEN ADEQUACY ? Satisfactory for evaluation. GENERAL CATEGORIZATION ? Within Normal Limits ? Document reviewed and electronically signed by: ? MARELY Long(ASCP) ? Report Date: ??12/12/1999 07:48 End of Report [facility] COL[facility] 12/08/1999 12/11/1999 us Sanchez Arias MD PATHOLOGY ORDERABLES Final Resu lt [facility] [address] [place] [address] documented in this encounter Visit Diagnoses Not on filedocumented in this encounter
--- OUTSIDE RECORDS SUMMARY | 2024-07-06 18:58 | XMS_ITS | Encounter Summary ---
Author Organization [facility] Address [address] [place] [address] Care Team Providers Care Applied Exercise Physiologist Name Role Phone Souleymane Muller MD Primary Care Provider [phone] Encounter Details Date Type Department Care Team (Latest Contact Info) Description 02/08/2015 7:16 EDT - 02/08/2015 23:59 EDT Hospital Encounter [address] [address] Unknown, Provider, MD Discharge Disposition: Home or [...] Code Departure Means Destination Home or Self Long-Term documented in this encounter Plan of Treatment Not on file documented as of this encounter Visit Diagnoses Not on filedocumented in this encounter Care Teams Applied Exercise Physiologist Relationship Specialty Start Date End Date Souleymane Muller MD [address] [place] [address] PCP - General 12/09/13 documented as of this encounter
--- OUTSIDE RECORDS SUMMARY | 2024-07-06 18:58 | XMS_ITS | Encounter Summary ---
Author Organization [facility] Address [address] [place] [address] Care Team Providers Care Vp Transportation Name Role Phone Otto Muller MD Primary Care Provider [phone] Encounter Details Date Type Department Care Team (Late st Contact Info) Description 08/16/2015 Results Only [facility] [phone] Jasbir Escobar DPM [address] [place] [phone] Social History Tobacco Use Types Packs/Day Years [...] Procedure Name Priority Date/Time Associated Diagnosis Comments SURGICAL PATHOLOGY Routine 08/16/2015 8:40 EST documented in this encounter Results * SURGICAL PATHOLOGY (08/16/2015 8:40 EST) Pathology Report: SURGICAL PATHOLOGY REPORT Reports generated via electronic interface contain original data; however they are lacking the format of the original report. Caution should be taken when reading/interpret ing unformatted reports. Name: ? WRIGHTCHRISTIE ? Accession #: ? [id number] ? : ? 1955 (Age: 60) ??F ? Collect Date: ? 08/16/2015 ? Location: ? [facility] ? Receive Date: ? 08/17/2015 ? Provider: JASBIR ESCOBAR DP Copy to: OTTO MULLER MD ? Final Pathologic Diagnosis: A. SKIN, METATARSAL PHALANGEAL JOINT, ULCER, DEBRIDEMENT: - ??Acral skin with penetrating ulcer and granulation tissue. B. BONE, FIRST METATARSAL HEAD, RESECTION: - ??Features consistent with chronic osteomyelitis. - ??Minimal periosteal fibrosis at resection margin. - ??Surgical margin viable. Document reviewed and electronically signed by: FAISAL SARABIA MD Report ??Date: 08/24/2015 07:33 By the signature above, the attending physician certifies that he/she has personally conducted a gross and/or microscopic examination of the described specimens and rendered or confirmed the above diagnosis. Specimen(s) Received: A. ??Ulcer of the MTP B. ??1st metatarsal head Clinical History: Not listed Gross Description: A. ?Received in formalin labelled with proper patient identification (initials W, S) and ulcer of the MTP is an unoriented elliptical excision of muir-white skin (3.8 x 1.5 and is excised to a depth of 0.2 cm). There is a central ulcerating nodule that measures 1.2 x 1.0 x 0.2 cm. The margins are inked black. Additionally received is a fragment of muir-white tissue that measures 1.8 x 1.0 x 0.4 cm. The excision specimen is serially sectioned and entirely submitted as A2-A6 central sections and A1 tips, reverse en face. The separately received piece of tissue is submitted as A7. B. ?Received in formalin labelled with proper patient identification (initials W, S) and 1st metatarsal head are two fragments of bone, the largest (with a smooth rounded outer surface) measuring 2.2 x 1.4 x 1.6 cm. The second fragment measures 1.5 x 0.8 x 0.5 cm. The surgical margin is inked black. There are no lesions present on the surface or upon sectioning of the bone. A care support representative section is submitted in B1 (for decalcification) to include the surgical margin. Dr. Morocho 08/17/2015 2:30 PM End of Report [facility] 08/16/2015 8:40 EST 08/17/2015 8:40 EST us Jasbir Escobar DPM PATHOLOGY ORDERABLES Loreto howard Result [facility] [address] [place] [address] documented in this encounter Visit Diagnoses Not on filedocumented in this encounter Care Teams Vp Transportation Relationship Specialty Start Date End Date Otto Muller MD [address] [place] [address] PCP - General 12/09/13 documented as of this encounter
--- OUTSIDE RECORDS SUMMARY | 2024-07-06 18:58 | XMS_ITS | Clinical Summary ---
Author Organization [facility] Address [address] [place] [address] Care Team Providers Care Radio Host Name Role Phone Souleymane Muller MD Primary Care Provider [phone] Social History Tobacco Use Types Packs/Day Years Used Date Smoking Tobacco: Never Assessed Comments Unknown Sex and Gender Information Value Date Recorded Sex Assigned at Not on file Legal Sex Female 18:24 EST Gender Identity Not on file Sexual Orientation Not on file Plan of Treatment Health Maintenance Due Date Last Done Comments Hepatitis C Screen 1955 Fall Risk Screening 2020 COVID-19 Vaccine (2023-25 season) 2024 RSV Immunization ( o r 60+ Years) (1 - 1-dose 75+ series) 2030 Care Teams Radio Host Relationship Specialty Start Date End Date Souleymane Muller MD [address] [place] [address] PCP - General 12/09/13
--- OUTSIDE RECORDS SUMMARY | 2024-07-06 18:58 | XMS_ITS | Encounter Summary ---
Author Organization [facility] Address [address] [place] [address] Care Team Providers Care Insurance Defense Paralegal Name Role Phone Unavailable Primary Care Provider Unavailabl e Encounter Details Date Type Department Care Team (Late st Contact Info) Description 05/11/2005 Results Only [facility] - [facility] [address] [place] [address] Sanchez Arias MD [address] [place] [address] [address] [address] Social History Tobacco Use Types [...] Priority Date/Time Associated Diagnosis Comments CYTOPATHOLOGY Routine 05/11/2005 0:00 EST SURGICAL PATHOLOGY Routine 05/11/2005 0:00 EST documented in this encounter Results * SURGICAL PATHOLOGY (05/11/2005 0:00 EST) Pathology Report: SURGICAL PATHOLOGY REPORT Reports generated via electronic interface contain original data; however they are lacking the format of the original report. Caution should be taken when reading/interpreti ng unformatted reports. Name: ? CHRISTIE WRIGHT ? Accession #: ? [id number] ? : ? 1955 (Age: 49) ??F ? Collect Date: ? 05/11/2005 ? Location: ? [facility] ? Receive Date: ? 05/11/2005 ? Provider: SANCHEZ ARIAS MD Copy to: OTTO RUIZ MD ? Final Pathologic Diagnosis: ? Cervix, polyp, biopsy: - Benign endocervical polyp. Document reviewed and electronically signed by: Rosette Bella MD Report ??Date: 05/15/2005 16:14 By the signature above, the attending physician certifies that he/she has personally conducted a gross and/or microscopic examination of the described specimens and rendered or confirmed the above diagnosis. Specimen(s) Received: ? Polyp Clinical History: ? Cervical polyp; LMP: 04/10/05 Intraoperative Interpretation: ? Received in formalin labelled Wright and cx is a 1.5 x 1.5 x 0.6 cm white-pink, glistening mucosal-lined polypoid tissue. ??The specimen is bisected and entirely submitted in one cassette. (Evens Randle)/mpl End of Report [facility] 05/11/2005 05/11/2005 15: 18 EST us Sanchez Arias MD PATHOLOGY ORDERABLES Final Resu lt [facility] [address] [place] [address] * CYTOPATHOLOGY (05/11/2005 0:00 EST) Pathology Report: CYTOPATHOLOGY REPORT Reports generated via electronic interface contain original data; however they are lacking the format of the original report. Caution should be taken when reading/interpreti ng unformatted reports. Name: ? WRIGHT, CHRISTIE M ? Accession #: ? [id number] : ? 1955 (Age: 49) ??F ?Collect Date: ? 05/11/2005 Location: ? [facility] ? Receive Date: ? 05/14/2005 Provider: ?SANCHEZ ARIAS MD Copy to: ? Specimen/Source: ?ThinPrep Pap Test, Cervix/Endocervix, processed on MozPrep Imaging System, with manual evaluation Last Menstrual Period: ? 04/10/05 Previous Gynecologic Pathology: ? Yes: Cervical polyp ? SPECIMEN ADEQUACY ? Satisfactory for Evaluation - transformation zone component present GENERAL CATEGORIZATION ? Negative for Intraepithelial Lesion or Malignancy ? Document reviewed and electronically signed by: ? MARELY Munson(ASCP) ? Report Date: ??05/16/2005 14:28 End of Report [facility] 05/11/2005 05/14/2005 us Sanchez Arias MD PATHOLOGY ORDERABLES Final Resu lt [facility] [address] [place] [address] documented in this encounter Visit Diagnoses Not on filedocumented in this encounter
--- OUTSIDE RECORDS SUMMARY | 2024-07-06 18:58 | XMS_ITS | Encounter Summary ---
Author Organization [facility] Address [address] [place] [address] Care Team Providers Care Formation Testing Operator Name Role Phone Souleymane Muller MD Primary Care Provider [phone] Encounter Details Date Type Department Care Team (Late st Contact Info) Description 12/09/2013 Results Only [facility] [phone] Ernie Marie MD [address] [place] [address] DIM[place] BAUTISTA [id number] Social History Tobacco Use Types Packs/Day Years [...] Date/Time Associated Diagnosis Comments SURGICAL PATHOLOGY Routine 12/09/2013 9:45 EDT documented in this encounter Results * SURGICAL PATHOLOGY (12/09/2013 9:45 EDT) Pathology Report: SURGICAL PATHOLOGY REPORT Reports generated via electronic interface contain original data; however they are lacking the format of the original report. Caution should be taken when reading/interpreti ng unformatted reports. Name: ? CHRISTIE WRIGHT ? Accession #: ? [id number] ? : ? 1955 (Age: 58) ??F ? Collect Date: ? 12/09/2013 ? Location: ? [facility] ? Receive Date: ? 12/10/2013 ? Provider: ERNIE MARIE MD Copy to: ? Final Pathologic Diagnosis: A. ovary and fallopian tube, right, salpingo-oophorect aubrie: - ??Ovary: ??- ??Rare serosal fibrous adhesions. - ??Fallopian tube: ??- ??No specific pathologic features. B. ovary and fallopian tube, left, salpingo-oophorect aubrie: - ??Ovary: ??- ??Rare serosal fibrous adhesions. - ??Fallopian tube: ??- ??Adherent portion of ovarian parenchyma with benign serous cystadenofibroma. Document reviewed and electronically signed by: FAISAL SARABIA MD Report ??Date: 12/13/2013 11:31 By the signature above, the attending physician certifies that he/she has personally conducted a gross and/or microscopic examination of the described specimens and rendered or confirmed the above diagnosis. Specimen(s) Received: A. ??R tube and ovary B. ??L tube and ovary Clinical History: FHx ovarian cancer (mother/PGM) Gross Description: A. ?Received in formalin labelled with proper patient identification (initials W, S) and right tube and ovary is an intact ovary (2.0 x 1.4 x 0.7 cm) with attached fimbriated fallopian tube (4.8 cm in length x 0.4 cm in diameter). The ovary has a muir-yellow lobulated capsule and sectioning reveals a muir cut surface with multiple corpora albicans. The fallopian tube has muir-purple smooth serosa and sectioning reveals a muir-white cut surface with a pinpoint lumen throughout. ??The ovary is entirely submitted in A1 and A2 and the fallopian tube in A3-A5. B. ?Received in formalin labelled with proper patient identification (initials W, S) and left tube and ovary is an intact ovary (2.0 x 1.3 x 0.9 cm) with attached fimbriated fallopian tube (5.0 cm in length x 0.4 cm in diameter). The ovary has a muir-yellow lobulated capsule and sectioning reveals a arellano-muir cut surface with multiple corpora albicans. The fallopian tube has a muir-purple smooth serosa and sectioning reveals a muir-white cut surface with a pinpoint lumen throughout. ??Attached to the fimbria, there is a firm arellano-white nodule (0.9 x 0.6 x 0.5 cm). ??The ovary is entirely submitted in B1 and B2 and the fallopian tube with attached nodule in B3-B6. Petra Alanis 12/10/2013 10:23 AM End of Report [facility] 12/09/2013 9:45 EDT 12/10/2013 9:45 EDT us Ernie Marie MD PATHOLOGY ORDERABLES Final Re sult [facility] [address] [place] [address] documented in this encounter Visit Diagnoses Not on filedocumented in this encounter Care Teams Formation Testing Operator Relationship Specialty Start Date End Date Souleymane Muller MD [address] [place] [address] PCP - General 12/09/13 documented as of this encounter
--- OUTSIDE RECORDS SUMMARY | 2024-07-06 18:58 | XMS_ITS | Encounter Summary ---
Author Organization [facility] Address [address] [place] [address] Care Team Providers Care Painter Railroad Car Name Role Phone Unavailable Primary Care Provider Unavailabl e Encounter Details Date Type Department Care Team (Late st Contact Info) Description 07/02/2012 Results Only [facility] [place] [address] [place], [place] [id number] Geraldine Smiley MD [address] [place] [address] [place] Social History Tobacco Use Types Packs/Day Years [...] Procedure Name Priority Date/Time Associated Diagnosis Comments PAP TEST- RESULT ONLY Routine 07/02/2012 0:00 EST documented in this encounter Results * PAP TEST- RESULT ONLY (07/02/2012 0:00 EST) Pathology Report: CYTOPATHOLOGY REPORT Reports generated via electronic interface contain original data; however they are lacking the format of the original report. Caution should be taken when reading/interpreti ng unformatted reports. Name: ? KYLE CHRISTIE Sophia ? Accession #: ? [id number] ? : ? 1955 (Age: 57) ??F ?Collect Date: ? 07/02/2012 ? Location: ? [facility] ? Receive Date: ? 07/03/2012 ? Provider: GERALDINE SMILEY MD Copy to: ? Final Report SPECIMEN ADEQUACY ? Satisfactory for Evaluation - transformation zone component present GENERAL CATEGORIZATION ? Negative for Intraepithelial Lesion or Malignancy ?? Last Menstrual Period: 09/22/08 Specimen/Source: ??Pap Test, Cervix/Endocervix, ThinPrep Imaging System with manual evaluation Document reviewed and electronically signed by: ? Fatoumata Capone, MARELY(ASCP) ? Report ??Date: 07/07/2012 14:41 HPV with Pap Test ? Date Ordered: ? 07/07/2012 ? Status: ?? Signed Out ?Date Complete: ? 07/09/2012 ? By: ??System Interface ? Date Reported: ? 07/09/2012 ? Interpretation RESULT: Negative for HPV. No E6 or E7 mRNA is detected from HPV types 16,18,31,33,35, 39,45,51,52,56,58, 59,66, and 68 by telecommunications sales representative mediated amplification. Comments Document reviewed and electronically signed by: ? System Interface ? Report date: 07/09/2012 By the signature above, the attending physician certifies that he/she has personally conducted a gross and/or microscopic examination of the described specimens and rendered or confirmed the above diagnosis. End of Report [facility] 07/02/2012 07/03/2012 us Geraldine Smiley MD PATHOLOGY ORDERABLES Final Resu lt [facility] [address] [place] [address] documented in this encounter Visit Diagnoses Not on filedocumented in this encounter
--- OUTSIDE RECORDS SUMMARY | 2024-07-06 18:58 | XMS_ITS | Encounter Summary ---
Author Organization [facility] Address [address] [place] [address] Care Team Providers Care Shoes Salesperson Name Role Phone Souleymane Muller MD Primary Care Provider [phone] Encounter Details Date Type Department Care Team (Late st Contact Info) Description 07/06/2019 Lab Requisition [facility] Pathology & Laboratory Medicine - [address] [address] Unknown, Provider, Social History Tobacco Use Types [...] Procedure Name Priority Date/Time Associated Diagnosis Comments IGG Routine 07/06/2019 11:00 EST documented in this encounter Results * IGG (07/06/2019 11:00 EST) IgG 1,317 610-1,616 mg/dL 07/07/2019 11:03 EST [facility] Blood VENOUS BLOOD / Unknown Venipuncture / Unknown 07/06/2019 11:00 EST 07/06/2019 21:20 EST us Provider Unknown CHEMISTRY & BLOOD GAS ORDERA BLES Final Result [facility] [address] [place] [address] documented in this encounter Visit Diagnoses Not on filedocumented in this encounter Care Teams Shoes Salesperson Relationship Specialty Start Date End Date Souleymane Muller MD [address] [place] [address] PCP - General 12/09/13 documented as of this encounter
--- OUTSIDE RECORDS SUMMARY | 2024-07-06 18:58 | XMS_ITS | Encounter Summary ---
Author Organization [facility] Address [address] [place] [address] Care Team Providers Care Parts Cataloger Name Role Phone Souleymane Muller MD Primary Care Provider [phone] Encounter Details Date Type Department Care Team (Late st Contact Info) Description 04/21/2021 Lab Requisition [facility] Pathology & Laboratory Medicine - [address] [address] Outr Resulting Lab, Provider Social History Tobacco [...] Date/Time Associated Diagnosis Comments PTH INTACT Routine 04/20/2021 7:25 EDT documented in this encounter Results * (ABNORMAL) PTH INTACT (04/20/2021 7:25 EDT) Intact PTH 129(H) 19 - 88 pg/mL 04/24/2021 9:47 EDT [facility] Blood VENOUS BLOOD / Unknown 04/20/2021 7:25 EDT 04/21/2021 16:18 EDT us Provider Outr Resulting Lab CHEMISTRY & BLOOD GA S ORDERABLES Final Result [facility] [address] [place] [address] documented in this encounter Visit Diagnoses Not on filedocumented in this encounter Care Teams Parts Cataloger Relationship Specialty Start Date End Date Souleymane Muller MD [address] [place] [address] PCP - General 12/09/13 documented as of this encounter
--- OUTSIDE RECORDS SUMMARY | 2024-07-06 18:58 | XMS_ITS | Encounter Summary ---
Author Organization [facility] [place] [address] Care Team Providers Care Kettle Skimmer Name Role Phone Roxi Ramirez MD Primary Care Provider [phone] Reason for Referral * Consultation (SRUTHI) - Closed Specialty Diagnoses / Procedures Referred By Contac t Referred To Contact Gastroenterology Diagnoses Other cirrhosis of liver Esophageal dysphagia Remington Ochoa MD [facility] [place] [address] [facility] Endoscopy [address] [place] [address] Referral ID Status Reason Start Date Expiration Date V isits Requested Visits Authorized [id number] Closed Consult, Test & Treat 02/15/2020 02/14/2021 1 1 Encounter Details Date Type Department Care Team (Latest Contact Info) Description 02/15/2020 4:00 PM EDT TH Visit (TeleHealth) [place] [address] Remington Ochoa MD [facility] [place] [place] [address] Other cirrhosis of liver; Esophageal dysphagia Social History Tobacco Use Types Packs/Day Years Used Date Smoking Tobacco: Never Smokeless Tobacco: Never Alcohol Use Standard Drinks/Week Comments Never 0 (1 standard drink = 0.6 oz pur e alcohol) Sex and Gender Information Value Date Recorded Sex Assigned at Not on file Gender Identity Not on file Sexual Orientation Not on file documented as of this encounter Progress Notes * Remington Ochoa MD - 02/15/2020 4:00 PM EDT [facility] Section of Gastroenterology and Hepatology Outpatient Consultation [facility] Gastroenterology Telephone Note Primary care provider: Roxi Ramirez MD Referred by I spoke wirg Ms Gardiner at [place] and her physician and nursing housekeeping supervisor hotel regarding recent possible food impaction She has been doing well since, with close attention to eating slowly, small bites and augmented water consumption. No obstructive pathology seen on EGD in August Has been on H2B Review of Systems: All other systems negative except as above in HPI No past medical history on file. Past Surgical History: Procedure Laterality Date ??? CT GUIDED BIOPSY PERITONEAL/OMENTAL 06/25/2019 CT Guided Biopsy Peritoneal/Omental 06/25/2019 [facility] RAD CAT SCAN ??? PRO ENDOSCOPIC US EXAM, ESOPH N/A 08/25/2019 UPPER EUS- ENDOSCOPIC ULTRASOUND performed by Connor Clinton MD at [facility] ENDOSCOPY ??? PRO UPPER GI ENDOSCOPY, BIOPSY N/A 08/25/2019 EGD WITH BIOPSY (WRVU 2.49) performed by Connor Clinton MD at [facility] ENDOSCOPY Social History: reports that she has never smoked. She has never used smokeless tobacco. She reports that she does not drink alcohol or use drugs. Family History: family history is not on file. Current Outpatient Medications Medication Sig Dispense Refill ??? acetaminophen (TYLENOL) 325 mg Tablet Take 650 mg by mouth every 4 hours as needed for Pain. ??? KLONOPIN 0.5 mg Tablet ??? amLODIPine (NORVASC) 5 mg Tablet ??? VITAMIN D 25 mcg (1,000 unit) Tablet ??? cyanocobalamin, vitamin B-12, 1,000 mcg Tablet ??? donepezil (ARICEPT) 10 mg Tablet ??? escitalopram oxalate (LEXAPRO) 5 mg Tablet ??? famotidine (PEPCID) 20 mg Tablet ??? folic acid (FOLVITE) 1 mg Tablet ??? furosemide (LASIX) 20 mg Tablet ??? imipramine (TOFRANIL) 25 mg Tablet ??? ipratropium-albuterol (DUONEB) 0.5 mg-3 mg(2.5 mg base)/3 mL Solution for Nebulization ??? Lactobacillus acidoph-L.bulgar 100 million cell Powder in Packet ??? levoFLOXacin (LEVAQUIN) 750 mg Tablet ??? loperamide (IMODIUM A-D) 2 mg Capsule ??? methIMAzole (TAPAZOLE) 5 mg Tablet ??? OLANZapine (ZYPREXA) 10 mg Tablet ??? omeprazole (PRILOSEC) 20 mg Capsule, Delayed Release(E.C.) ??? potassium chloride ER (K-DUR/KLOR-CON) 20 mEq Tab Sust.Rel. Particle/Crystal ??? predniSONE (DELTASONE) 20 mg Tablet No current facility-administered medications for this visit. Allergies Allergen Reactions ??? Sulfa (Sulfonamide Antibiotics) No Physical Examination Performed because this was a telephone/telehealth visit Additional Testing: Reviewed available labs, imaging and endoscopy results in EDH/CIS as well as Scan Docs tab. Labs: Lab Results Component Value Date WBC 11.2 (H) 07/28/2019 HGB 12.7 07/28/2019 HCT 44.0 07/28/2019 MCV 82.4 (L) 07/28/2019 PLATELET 385 (H) 07/28/2019 Chemistry Component Value Date/Time NA 143 07/28/2019 1012 K 3.5 07/28/2019 1012 CL 98 07/28/2019 1012 CO2 31 07/28/2019 1012 BUN 17 07/28/2019 1012 CREATININE 0.69 (L) 07/28/2019 1012 Component Value Date/Time CALCIUM 9.6 07/28/2019 1012 ALKPHOS 110 (H) 07/28/2019 1012 AST 15 07/28/2019 1012 ALT 15 07/28/2019 1012 BILITOT 0.3 07/28/2019 1012 Lab Results Component Value Date ALT 15 07/28/2019 AST 15 07/28/2019 ALKPHOS 110 (H) 07/28/2019 BILITOT 0.3 07/28/2019 IMPRESSION AND RECOMMENDATIONS: Christie Cortes Abdifatah is a 64 y.o. woman who I met in September 2018 regarding oropharyngeal dysphagia in the context of neuropsychiatric disability. Temporary feeding tube placed (since removed). She then returned for evaluation in July in follow up of imaging performed for RUQ pain, that showed a markedly thickened gallbladder fundus with involvement of adjacent liver, suspicious for a neoplastic process. 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 The pathology report also notes cirrhosis and focal steatosis. See prior note for detailed, however management strategy has been observation. Recent MR without mass. She is here in follow up regarding recent possible food impaction. She has been doing well since dietary modification. Will plan for upper endoscopy to exclude development of a peptic stricture or obstructing ring. Will also need biannual US for HCC screening. ?? Patient verbally consents to this telephone visit and understands that this visit may be billed, similar to a clinic office visit. I provided care to the patient today via telephone call, 15 minutes telephone visit was spent in discussion with patient on above. Remington Ochoa MD CC Roxi Ramirez MD [address] [facility] [address] [place] [address] No referring provider defined for this encounter. Gastroenterology Section [facility] documented in this encounter Plan of Treatment Scheduled Referrals Name Type Priority Associated Diagnoses Order Schedule Referral to Gastroenterology Outpatient Referral Routine Other cirrhosis of liver Esophageal dysphagia Ordered: 02/15/2020 documented as of this encounter Visit Diagnoses Diagnosis Other cirrhosis of liver Esophageal dysphagia Dysphagia, pharyngoesophageal phase documented in this encounter Care Teams Kettle Skimmer Relationship Specialty Start Date End Date Roxi Ramirez MD [address] [facility] [place] [address] PCP - General Family Medicine 08/25/19 05/01/20 documented as of this encounter
--- OUTSIDE RECORDS SUMMARY | 2024-07-06 18:58 | XMS_ITS | Encounter Summary ---
Author Organization [facility] Address [facility] [place] [address] Care Team Providers Care Physical Therapy Supervisor Name Role Phone Ann Marie Roa MD Primary Care Provi ebn Encounter Details Date Type Department Care Team (Latest Contact Info) Description 10/03/2022 2:00 PM EDT TH Visit (TeleHealth) [place] [address] Senia Diaz APRN [facility] [place] [address] Hepatic cirrhosis, unspecified hepatic cirrhosis type, unspecified whether ascites present Social History Tobacco Use Types Packs/Day Years Used Date Smoking Tobacco: Never Smokeless Tobacco: Never Alcohol Use Standard Drinks/Week Comments Never 0 (1 standard drink = 0.6 oz pur e alcohol) Sex and Gender Information Value Date Recorded Sex Assigned at Not on file Gender Identity Not on file Sexual Orientation Not on file documented as of this encounter Progress Notes * Senia Diaz APRN - 10/03/2022 2:00 PM EDT Gastroenterology and Hepatology Follow Up Visit Patient: Christie Gardiner : 1955 Provider: Senia SONI We utilized a phone connection as patient was unable to sign on through link. Interval History: Ms. Christie Gardiner is a 67 y.o. female with a history of cirrhosis here today for follow up. Since last being seen Christie reports doing well. She has had no dysphagia, and feeding tube is removed. She tells me she quite enjoys eating, and has no restrictions on what she eats. No choking episodes. No abdominal pain. Bowels are moving normally. During this interview patient, and her nurse tell me she is on palliative care, and prefers not to do any testing. Patient does not want her liver disease followed anymore. No endoscopy, no ultrasound Most recent labs per nursing staff: AST-23 ALT-40 Bili-0.3 Platelets-408 Albumin-3.8 No trouble with medications Normal diet Weight-274 pounds Patient has no concerns. She is seen by medical provider weekly at her half-way. 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 Temporary feeding tube placed (since removed). She then returned for evaluation in July in follow up of imaging performed for RUQ pain, that showed a markedly thickened gallbladder fundus with involvement of adjacent liver, suspicious for a neoplastic process. 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 ??The pathology report also notes cirrhosis and focal steatosis. See prior note for detailed, however management strategy has been observation. Recent MR without mass. 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 Clinical and radiologic correlation is required; suggest ??evaluating serum IgG4. The relationship between the liver cirrhosis and gallbladder fibrosis is unclear. ?? ROS: Constitutional: No unintentional weight loss, fatigue, nor fevers. CV: Denies chest pain, palpitations, dizziness, SOB Resp: No cough, no wheezing GI: As per HPI : No increase in frequency, no burning, no pain with urination Hem: No easy bruising, no swollen nodes MSK: No joint pain/swelling, no muscle pain Skin: No new rash,sores, or lesions. PROBLEM LIST There is no problem list on file for this patient. MEDICATIONS: Current Outpatient Medications Medication Sig Dispense Refill [...] No current facility-administered medications for this visit. ALLERGIES/ADR Allergies Allergen Reactions ??? Sulfa (Sulfonamide Antibiotics) PHYSICAL EXAMINATION: Phone visit only PERTINENT LABS AND IMAGING: Lab Results Component Value Date WBC 11.2 (H) 07/28/2019 HGB 12.7 07/28/2019 HCT 44.0 07/28/2019 MCV 82.4 (L) 07/28/2019 Lab Results Component Value Date ALT 15 07/28/2019 AST 15 07/28/2019 ALKPHOS 110 (H) 07/28/2019 BILITOT 0.3 07/28/2019 Chemistry Component Value Date/Time NA 143 07/28/2019 1012 K 3.5 07/28/2019 1012 CL 98 07/28/2019 1012 CO2 31 07/28/2019 1012 BUN 17 07/28/2019 1012 CREATININE 0.69 (L) 07/28/2019 1012 Component Value Date/Time CALCIUM 9.6 07/28/2019 1012 ALKPHOS 110 (H) 07/28/2019 1012 AST 15 07/28/2019 1012 ALT 15 07/28/2019 1012 BILITOT 0.3 07/28/2019 1012 IMPRESSION/PLAN: Christie Gardiner is a 67 y.o. 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 Visit was set up today to reengage her in cirrhosis care-ie labs, and imaging every 6 months, andupdating egd for variceal surveillance. We discussed the rationale behind monitoring patients with cirrhosis, and the increased risk of HCC. At this time Christie does not want any further GI testing, or workup. She is aware of chronic liver disease, but does not want this treated. Nurse was with her on the phone while we were discussing her options, and nurse confirms her treatment goals. Patient reports testing, and surveillance is not within her goals of care. Should she decompensate, develop dysphagia again she should reach out to us. Patient opting to not follow with hepatology at this time. The patient was given my contact information and will call me with concerns or questions Total time spent on encounter today: Time spent reviewing records prior to this encounter: 5 minutes Time spent during encounter with patient including counselin minutes Time spent documenting encounter after office visit: 0 minutes Senia Diaz APRN MSN [facility] of [place]astro[facility]ology [place] [address] Cc: Ann Marie Roa MD documented in this encounter Plan of Treatment Not on file documented as of this encounter Visit Diagnoses Diagnosis Hepatic cirrhosis, unspecified hepatic cirrhosis type, unspecified whether ascites present documented in this encounter Care Teams Physical Therapy Supervisor Relationship Specialty Start Date End Date Ann Marie Roa MD [address] [place] [address] PCP - General Family Medicine 05/02/20 documented as of this encounter
--- OUTSIDE RECORDS SUMMARY | 2024-07-06 18:58 | XMS_ITS | Clinical Summary ---
Author Organization [facility] Address [facility] [place] [address] Care Team Providers Care Detailer Pharmaceuticals Name Role Phone Ann Marie Roa MD Primary Care Provi ben Allergies Active Allergy Reactions Criticality Noted Date Comments Sulfa (Sulfonamide Antibiotics) 07/2019 Medications Medication Sig Dispensed Refills Start Date End Date Status KLONOPIN 0.5 mg Tablet 02/12/2019 Ac tive amLODIPine (NORVASC) 5 mg Tablet 2019 Active VITAMIN D 25 mcg (1,000 unit) Tablet 06/02/2019 Active cyanocobalamin, vitamin B-12, 1,000 mcg Tablet 03/05/2019 Ac tive donepezil (ARICEPT) 10 mg Tablet 2019 Active escitalopram oxalate (LEXAPRO) 5 mg Tablet 2019 Act michael famotidine (PEPCID) 20 mg Tablet 2019 Active folic acid (FOLVITE) 1 mg Tablet 06/03/2019 Active furosemide (LASIX) 20 mg Tablet 03/19/2019 Active imipramine (TOFRANIL) 25 mg Tablet 05/05/2019 Active ipratropium-albuterol (DUONEB) 0.5 mg-3 mg(2.5 mg base)/3 mL Solution for Nebulization 04/06/2019 Active Lactobacillus acidoph-L.bulgar 100 million cell Powder in Packet 05/26/2019 Active levoFLOXacin (LEVAQUIN) 750 mg Tablet 04/06/2019 Active loperamide (IMODIUM A-D) 2 mg Capsule 2019 Active methIMAzole (TAPAZOLE) 5 mg Tablet 06/03/2019 Active OLANZapine (ZYPREXA) 10 mg Tablet 01/08/2019 Active omeprazole (PRILOSEC) 20 mg Capsule, Delayed Release(E.C.) 01/08/2019 Active potassium chloride ER (K-DUR/KLOR-CON) 20 mEq Tab Sust.Rel. Particle/Crystal 06/03/2019 Active predniSONE (DELTASONE) 20 mg Tablet 04/06/2019 Active acetaminophen (TYLENOL) 325 mg Tablet Take 650 mg by mouth every 4 hours as needed for Pain. 06/25/2019 Active Social History Tobacco Use Types Packs/Day Years Used Date Smoking Tobacco: Never Smokeless Tobacco: Never Alcohol Use Standard Drinks/Week Comments Never 0 (1 standard drink = 0.6 oz pur e alcohol) Sex and Gender Information Value Date Recorded Sex Assigned at Not on file Gender Identity Not on file Sexual Orientation Not on file Last Filed Vital Signs Vital Sign Reading Time Taken Comments Blood Pressure 128/94 08/25/2019 6:00 PM EST Pulse 90 08/25/2019 6:00 PM EST Temperature 36.9 ??C (98.4 ??F) 08/25/2019 2:14 PM ES T Respiratory Rate 18 08/25/2019 5:50 PM EST Oxygen Saturation 96% 08/25/2019 6:00 PM EST Inhaled Oxygen Concentration - - Weight 118.4 kg (261 lb) 08/25/2019 2:14 PM EST Height 167.6 cm (5' 6) 08/25/2019 2:14 PM EST Body Mass Index 42.13 08/25/2019 2:14 PM EST Plan of Treatment Health Maintenance Due Date Last Done Comments CT Colonography 1955 Colonoscopy 1955 Colorectal Cancer Screening 1955 FIT DNA 1955 FIT 1955 Sigmoidoscopy (10 year) with FIT yearly 1955 Sigmoidoscopy 1955 Tetanus/Diphtheria/Pertussis Vaccines (1 - Tdap) 05/28 Breast Cancer Share Decision Needed 1995 Breast Cancer screening 1995 Pneumoccocal Vaccine: 50+ (1 of 1 - PCV) 2005 Zoster vaccine (1 of 2) 2005 Advance Directive 2010 Bone Density Scan 2020 Covid-19 Vaccine (1 - 2024-25 season) 2024 Influenza (Flu) vaccine (1 o f 1 - Influenza standard series) 02/23/2024 Diabetes Screening (HgbA1C or Glucose) Discontinued Hepatitis C Screening Completed 07/28/2019 Procedures Procedure Name Priority Date/Time Associated Diagnosis Comments 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 07/28/2019 10:12 AM EST IgG4 related disease from Last 3 Months or Most Recently Relevant to Health Maintenance Results * Hepatitis C Antibody (07/28/2019 10:12 AM EST) Hepatitis C Antibody Negative Negative [facility] Blood specimen (specimen) 07/28/2019 10:12 AM EST 07/28/2019 10:38 AM EST Narrative Resulting Agency Comment Spec In Lab Remington Ochoa MD CHEMISTRY ORDERABLES [facility] [place] [id number] * (ABNORMAL) Basic Metabolic Panel (non-fasting) (07/28/2019 10:12 AM EST) Glucose 114 65 - 199 mg/dL [facility] Comment:Diabetes: >=200 mg/d L plus symptoms Blood Urea Nitrogen 17 8 - 18 mg/dL [facility] Creatinine 0.69(L) 0.70 - 1.20 mg/dL [facility] Sodium 143 135 - 145 mmol/L [facility] Potassium 3.5 3.5 - 5.0 mmol/L [facility] Comment: Please note: ??Patients with WBC >100,000 may have falsely elevated Potassium levels. ??For accurate Potassium quantification in these patients send serum separator tube (gold top) for subsequent determinations. ??Contact the Clinical Chemistry Laboratory if there are any questions. Chloride 98 98 - 107 mmol/L [facility] Carbon Dioxide 31 22 - 31 mmol/L [facility] Anion Gap 14 5 - 15 mmol/L [facility] Calcium 9.6 8.5 - 10.5 mg/dL [facility] Est Glomerular Filtration Rate 92 >=60 mL/min/1. 73 m?? [facility] Comment: The eGFR was calculated using the CKD-EPI equation. As with all creatinine based estimates of kidney function, eGFR values calculated with the CKD-EPI equation are not accurate in patients with acute kidney failure, extremes of body mass or the acutely ill. [email or web address] eGFR 107 >=60 mL/min/1. 73 m?? [facility] Comment: The eGFR was calculated using the CKD-EPI equation. As with all creatinine based estimates of kidney function, eGFR values calculated with the CKD-EPI equation are not accurate in patients with acute kidney failure, extremes of body mass or the acutely ill. [email or web address] Blood specimen (specimen) 07/28/2019 10:12 AM EST 07/28/2019 10:18 AM EST Narrative Resulting Agency Comment Spec In Lab Remington Ochoa MD CHEMISTRY ORDERABLES [facility] [place] [address] from Last 3 Months or Most Recently Relevant to Health Maintenance Advance Directives * Full Code (Latest Code Status on File) Date Activated Date Inactivated Comments 06/25/2019 8:17 AM 06/26/2019 4:38 AM Question Answer Comments Does patient have capacity to make decision: Yes Care Teams Detailer [employer]aceuticals Relationship Specialty Start Date End Date Ann Marie Roa MD [address] [place] [address] PCP - General Family Medicine 05/02/20
--- OUTSIDE RECORDS SUMMARY | 2024-07-06 18:58 | XMS_ITS | Encounter Summary ---
Author Organization [facility] Address [facility] [place] [address] Care Team Providers Care Oracle Data Warehouse Developer Name Role Phone Ann Marie Roa MD Primary Care Provi ben Encounter Details Date Type Department Care Team (Late st Contact Info) Description 07/04/2022 Notes [place] [id number] Senia Diaz APRN [facility] [place] [address] Social History Tobacco Use Types Packs/Day Years [...] Progress Notes * Senia Diaz APRN - 07/04/2022 10:10 AM EST Endoscopy Triage Review Procedure: EGD Indication: Follow up dysphagia, cirrhosis via biopsy-variceal screening Before scheduling procedure patient should have an OV or TH visit with hepatology provider. documented in this encounter Plan of Treatment Not on file documented as of this encounter Visit Diagnoses Not on filedocumented in this encounter Care Teams Oracle Data Warehouse Developer Relationship Specialty Start Date End Date NehemiahAnn Marie Izaguirre MD [address] [place] [address] PCP - General Family Medicine 05/02/20 documented as of this encounter
--- OUTSIDE RECORDS SUMMARY | 2024-07-06 18:58 | XMS_ITS | Encounter Summary ---
Author Organization [facility] Address [address] [place] [address] Care Team Providers Care Applications Scientist Name Role Phone Souleymane Muller MD Primary Care Provider [phone] Encounter Details Date Type Department Care Team (Late st Contact Info) Description 04/16/2020 Lab Requisition [facility] Pathology & Laboratory Medicine - [address] [address] Outr Resulting Lab, Provider Social History Tobacco [...] Procedure Name Priority Date/Time Associated Diagnosis Comments ZZCOVID-19 TEST [facility] PCR Today 04/16/2020 21:35 EDT COVID-19 TESTING Routine 04/16/2020 21:3 5 EDT documented in this encounter Results * COVID-19 TEST [facility] PCR (04/16/2020 21:35 EDT) Swab ENTIRE NASOPHARYNX / Unknown 04/16/2020 21:35 EDT 04/17/2020 8:22 EDT us Provider Outr Resulting Lab MICROBIOLOGY - GENER AL ORDERABLES Final Result [facility] [address] [place] [address] * COVID-19 TESTING (04/16/2020 21:35 EDT) COVID-19 rt-PCR Result Negative Negative 04/17/2020 13:02 EDT [facility] Comment: This test has not been FDA cleared or approved. This test has been authorized by FDA under an EUA for use by authorized laboratories. This test has been authorized only for detection of nucleic acid from 2019-nCoV, not for any other viruses or pathogens. This test is only authorized for the duration of the declaration that circumstances exist justifying the authorization of emergency use of in vitro diagnostic tests for detection and/or diagnosis of 2019-nCoV under section 564(b)(1) of Act, 21 U.S.C ?? 360bbb-3(b) (1), unless the authorization is terminated or revoked sooner. Negative results do not preclude 2019-nCoV infection and should not be used as the sole basis for treatment or other patient management decisions. Negative results must be combined with clinical observations, patient history, and epidemiological information. Performed on the [employer] instrument Performing Lab [place] [facility] 04/17/2020 13:02 EDT [facility] Swab 04/16/2020 21:3 5 EDT 04/17/2020 8:22 EDT us Provider Outr Resulting Lab MICROBIOLOGY - GENER AL ORDERABLES Final Result [facility] [address] [place] [address] documented in this encounter Visit Diagnoses Not on filedocumented in this encounter Care Teams Applications Scientist Relationship Specialty Start Date End Date Souleymane Muller MD [address] [place] [address] PCP - General 12/09/13 documented as of this encounter
--- OUTSIDE RECORDS SUMMARY | 2024-07-06 18:58 | XMS_ITS | Encounter Summary ---
Author Organization [facility] Address [facility] [place] [address] Care Team Providers Care Visually Impaired Teacher Name Role Phone Roxi Ramirez MD Primary Care Provider Encounter Details Date Type Department Care Team (Late st Contact Info) Description 01/18/2020 4:15 PM EDT Ancillary Procedure Rad[facility] [place] [id number] Xavier Barton MD [facility] [place] [address] Social History Tobacco Use Types Packs/Day Years [...] Diagnosis Comments FILM LIBRARY STORAGE ONLY DX ABDOMEN Routine 01/18/2020 4:08 PM EDT documented in this encounter Results * Film Library- Storage Only DX Abdomen (01/18/2020 4:08 PM EDT) Narrative [facility] - 01/18/2020 4:08 PM EDT This exam is auto-finalizing. It's purpose is for storage only. Xavier Barton MD IMG FILM LIBRARY ORD ERABLES [facility] [place], [place] documented in this encounter Visit Diagnoses Not on filedocumented in this encounter Care Teams Visually Impaired Teacher Relationship Specialty Start Date End Date Roxi Ramirez MD [address] [place] [address] PCP - General Family Medicine 08/25/19 05/01/20 documented as of this encounter
--- OUTSIDE RECORDS SUMMARY | 2024-07-06 18:58 | XMS_ITS | Encounter Summary ---
Author Organization [facility] Address [address] [place] [address] Care Team Providers Care Blast Furnace Helper Name Role Phone Souleymane Muller MD Primary Care Provider [phone] Encounter Details Date Type Department Care Team (Late st Contact Info) Description 01/17/2020 Lab Requisition [facility] Pathology & Laboratory Medicine - [address] [address] Outr Resulting Lab, Provider Social History Tobacco [...] Comments ZZCOVID-19 TEST [facility] PCR Today 01/17/2020 0:00 EDT COVID-19 TESTING Routine 01/17/2020 0:00 EDT documented in this encounter Results * COVID-19 TEST [facility] PCR (01/17/2020 0:00 EDT) Swab ENTIRE NASOPHARYNX / Unknown 01/17/2020 01/17/2020 9:08 EDT us Provider Outr Resulting Lab MICROBIOLOGY - GENER AL ORDERABLES Final Result [facility] [address] [place] [address] * COVID-19 TESTING (01/17/2020 0:00 EDT) COVID-19 rt-PCR Result Negative Negative 01/17/2020 11:48 EDT [facility] Comment: This test has not [...] history, and epidemiological information. Performed on the [employer] instrument Performing Lab [place] [facility] 01/17/2020 11:48 EDT [facility] Swab 01/17/2020 01/17/2020 9:0 8 EDT us Provider Outr Resulting Lab MICROBIOLOGY - GENER AL ORDERABLES Final Result [facility] [address] [place] [address] documented in this encounter Visit Diagnoses Not on filedocumented in this encounter Care Teams Blast Furnace Helper Relationship Specialty Start Date End Date Souleymane Muller MD [address] [place] [address] PCP - General 12/09/13 documented as of this encounter
--- OUTSIDE RECORDS SUMMARY | 2024-07-06 18:58 | XMS_ITS | Encounter Summary ---
Author Organization [facility] Address [address] [place] [address] Care Team Providers Care Cloth Finishing Range Operator Name Role Phone Souleymane Muller MD Primary Care Provider [phone] Encounter Details Date Type Department Care Team (Latest Contact Info) Description 08/16/2015 11:37 EST - 08/16/2015 23:59 EST Hospital Encounter [address] [address] Unknown, Provider, MD Discharge Disposition: Home or [...] Code Departure Means Destination Home or Self Prison documented in this encounter Plan of Treatment Not on file documented as of this encounter Visit Diagnoses Not on filedocumented in this encounter Care Teams Cloth Finishing Range Operator Relationship Specialty Start Date End Date Souleymane Muller MD [address] [place] [address] PCP - General 12/09/13 documented as of this encounter
--- OUTSIDE RECORDS SUMMARY | 2024-07-06 18:58 | XMS_ITS | Encounter Summary ---
Author Organization [facility] [place] [address] Care Team Providers Care Deckhand Shrimp Boat Name Role Phone Roxi Ramirez MD Primary Care Provider [phone] Encounter Details Date Type Department Care Team (Late st Contact Info) Description 04/18/2020 Telephone [place] [address] Awilda Pereyra Social History Tobacco Use Types Packs/Day Years [...] encounter Miscellaneous Notes * Telephone Encounter - Awilda Pereyra - 04/18/2020 9:09 AM EDT Christie Gardiner [id number] Diagnosis/Indication: EGD 1. Have you ever had a/an Upper Endoscopy before? Yes: Date 08/25/19 If yes, did you have any problems with the procedure? No What type of sedation was used: General Anesthesia 2. Do you take any Blood Thinners? No 3. Do you have a Pacemaker or Defibrillator device? No 4. Are you a diabetic? No 5. Do you have any Allergies to Eggs, Latex or Medications? Yes: Sulfa 6. Do you take any Oral Iron Supplements (Including multi-vitamins)? No 7. Do you have a history of three or more abdominal surgeries? No 8. Have you had a problem with sedation or anesthesia? No 9. Do you have a c-pap machine or oxygen tank? Neither 10. Do you take prescription narcotic pain medications, including suboxone or methodone? No 11. Do you have a preference regarding the gender of your provider? No Preference 12. Is there any other information you would like to give us to aid in scheduling? No 13. Say to patient: You must have a responsible constitution party who will drive you to your procedure, stay [place] for the entire duration of your procedure, and drive you home from your procedure? *Please Verify the height and weight, and adjust if height and/or weight have changed* Estimated body mass index is 42.13 kg/m?? as calculated from the following: Height as of 08/25/19: 167.6 cm (5' 6). Weight as of 08/25/19: 118.4 kg (261 lb). *Delete if not needed* Height: 5'6 Weight: 263 BMI: 42.4 Age:64 y.o. documented in this encounter Plan of Treatment Not on file documented as of this encounter Visit Diagnoses Not on filedocumented in this encounter Care Teams Deckhand Shrimp Boat Relationship Specialty Start Date End Date Roxi Ramirez MD [address] [place] [address] PCP - General Family Medicine 08/25/19 05/01/20 documented as of this encounter
--- OUTSIDE RECORDS SUMMARY | 2024-07-06 18:58 | XMS_ITS | Encounter Summary ---
Author Organization [facility] Address [address] [place] [address] Care Team Providers Care Training Lead Name Role Phone Souleymane Muller MD Primary Care Provider [phone] Encounter Details Date Type Department Care Team (Late st Contact Info) Description 07/06/2019 Lab Requisition [facility] Pathology & Laboratory Medicine - [address] [address] Unknown, Provider, Social History Tobacco Use Types [...] Procedure Name Priority Date/Time Associated Diagnosis Comments CHRONIC HEPATITIS PROFILE, UNKNOWN TYPE Routine 07/06/2019 11:00 EST documented in this encounter Results * CHRONIC HEPATITIS PROFILE, UNKNOWN TYPE (07/06/2019 11:00 EST) Hep B Surface Ag Negative Negative 07/07/19 10:42 [facility] Hep B Surface Ab, Quantitative <3.1 See Note mIU/mL 07/07/2019 10:42 [facility] Comment: Reference Range for Hep B Surface Ab, Quant: Positive: >= 10.0 mIU/mL Negative: ??< 10.0 mIU/mL Patient is presumed to not be immune to infection with Hepatitis B Virus. Hep B Surface Ab, Qualitative Negative See Note 07/07/2019 10:42 EST [facility] Comment: Reference Range for Hep B Surface Ab, Qual: Unvaccinated: ??Negative Vaccinated: ??Positive Hepatitis B Core Ab, Total Negative Negative 07/07/2019 10:42 EST [facility] Hep C Antibody Negative Negative 07/07/2019 10:42 EST [facility] Blood VENOUS BLOOD / Unknown Venipuncture / Unknown 07/06/2019 11:00 EST 07/06/2019 21:20 EST us Provider Unknown CHEMISTRY & BLOOD GAS ORDERA BLES Final Result [facility] [address] [place] [address] documented in this encounter Visit Diagnoses Not on filedocumented in this encounter Care Teams Training Lead Relationship Specialty Start Date End Date Souleymane Muller MD [address] [place] [id number] PCP - General 12/09/13 documented as of this encounter
--- OUTSIDE RECORDS SUMMARY | 2024-07-06 18:58 | XMS_ITS | Encounter Summary ---
Author Organization [facility] Address [address] [place] [address] Care Team Providers Care Loan Supervisor Name Role Phone Unavailable Primary Care Provider Unavailabl e Encounter Details Date Type Department Care Team (Late st Contact Info) Description 04/28/2004 Results Only [facility] - Maple conversion [address] [place] [address] Alejandra Schultz, [facility] [address] [place] [address] Social History Tobacco Use Types [...] Priority Date/Time Associated Diagnosis Comments CYTOPATHOLOGY Routine 04/28/2004 0:00 EST documented in this encounter Results * CYTOPATHOLOGY (04/28/2004 0:00 EST) Pathology Report: CYTOPATHOLOGY REPORT Reports generated via electronic interface contain original data; however they are lacking the format of the original report. Caution should be taken when reading/interpreti ng unformatted reports. Name: ? KYLE CHRISTIE M ? Accession #: ? [id number] : ? 1955 (Age: 48) ??F ?Collect Date: ? 04/28/2004 Location: ? [facility] ? Receive Date: ? 05/01/2004 Provider: ?ALEJANDRA SCHULTZ SCHEDULING CLERK Copy to: ? Specimen/Source: ?ThinPrep Pap Test, Cervix/Endocervix Last Menstrual Period: ? 03/10/04 Other: ? HPVA - HPV testing requested if ASC-US on the current ThinPrep Pap test. ? SPECIMEN ADEQUACY ? Satisfactory for Evaluation - transformation zone component present - scant squamous epithelial component secondary to excessive blood - scant squamous epithelial component secondary to excessive mucus GENERAL CATEGORIZATION ? Negative for Intraepithelial Lesion or Malignancy INTERPRETATION ? Reactive cellular changes associated with inflammation present (includes repair). ? Document reviewed and electronically signed by: ? FAISAL SARABIA MD ? Report Date: ??05/06/2004 13:21 End of Report [facility] 04/28/2004 05/01/2004 Alejandra Schultz SCHEDULING CLERK PATHOLOGY ORDERABLES Final R esult [facility] [address] [place] [address] documented in this encounter Visit Diagnoses Not on filedocumented in this encounter
--- OUTSIDE RECORDS SUMMARY | 2024-07-06 18:58 | XMS_ITS | Encounter Summary ---
Author Organization [facility] Address [address] [place] [address] Care Team Providers Care Rice Farmer Name Role Phone Souleymane Muller MD Primary Care Provider [phone] Encounter Details Date Type Department Care Team (Late st Contact Info) Description 02/21/2021 Lab Requisition [facility] Pathology & Laboratory Medicine - [address] [address] Outr Resulting Lab, Provider Social History Tobacco [...] Date/Time Associated Diagnosis Comments PTH INTACT Routine 02/21/2021 12:55 EDT documented in this encounter Results * (ABNORMAL) PTH INTACT (02/21/2021 12:55 EDT) Intact PTH 159(H) 19 - 88 pg/mL 02/23/2021 9:35 EDT [facility] Blood VENOUS BLOOD / Unknown 02/21/2021 12:55 EDT 02/22/2021 16:48 EDT us Provider Outr Resulting Lab CHEMISTRY & BLOOD GA S ORDERABLES Final Result [facility] [address] [place] [address] documented in this encounter Visit Diagnoses Not on filedocumented in this encounter Care Teams Rice Farmer Relationship Specialty Start Date End Date Souleymane Muller MD [address] [place] [address] PCP - General 12/09/13 documented as of this encounter
--- OUTSIDE RECORDS SUMMARY | 2024-07-06 18:58 | XMS_ITS | Encounter Summary ---
Author Organization [facility] Address [address] [place] [address] Care Team Providers Care Senior Rd Engineer Name Role Phone Otto Muller MD Primary Care Provider [phone] Encounter Details Date Type Department Care Team (Late st Contact Info) Description 02/08/2015 Results Only [facility]- [facility] [phone] Jasbir Escobar DPM [address] [place] [phone] Social History Tobacco Use Types Packs/Day Years [...] Date/Time Associated Diagnosis Comments SURGICAL PATHOLOGY Routine 02/08/2015 14 :51 EDT documented in this encounter Results * SURGICAL PATHOLOGY (02/08/2015 14:51 EDT) Pathology Report: SURGICAL PATHOLOGY REPORT Reports generated via electronic interface contain original data; however they are lacking the format of the original report. Caution should be taken when reading/interpret ing unformatted reports. Name: ? KYLECHRISTIE Sophia ? Accession #: ? [id number] ? : ? 1955 (Age: 59) ??F ? Collect Date: ? 02/08/2015 ? Location: ? [facility] ? Receive Date: ? 02/09/2015 ? Provider: JASBIR ESCOBAR DPM Copy to: OTTO MULLER MD ? Final Pathologic Diagnosis: A. SKIN, RIGHT FOOT, ULCER, EXCISION: - ??Hyperplastic acral skin with penetrating ulcer, granulation tissue, and parakeratosis. - ??PAS stain is positive for fungal organisms. B. BONE, LEFT FOOT, FIRST METATARSAL HEAD, RESECTION: - ??Vital cortical and trabecular bone. - ??Negative for acute osteomyelitis. Document reviewed and electronically signed by: PAN GUERRERO MD Report ??Date: 02/15/2015 11:40 By the signature above, the attending physician certifies that he/she has personally conducted a gross and/or microscopic examination of the described specimens and rendered or confirmed the above diagnosis. Specimen(s) Received: A. ??Ulcer plantar medial aspect left foot B. ??Bone head 1st metatarsal left foot Clinical History: Not listed Gross Description: A. ?Received in formalin labelled with proper patient identification (initials W, S) and right foot ulcer is an unoriented elliptical excision of muir-white skin (3.7 x 0.9 cm and is excised to a depth of 0.4 cm). There is a central muir-yellow ulcerative lesion that measures 0.9 x 0.7 cm, which has a central defect. The margins are inked black. Submitted in toto in A1. B. ?Received in formalin labelled with proper patient identification (initials W, S) and head of 1st metatarsal left are three pieces of muir-yellow gelatinous bone with a small amount of attached muir-pink fibrous tissue (0.5 x 0.4 x 0.3 cm, 0.6 x 0.5 x 0.3 cm, and 2.0 x 1.9 x 0.4 cm). One surface of the largest piece is smooth. ??Submitted in toto in B1 following decalcification. Jessica Lopze 02/09/2015 5:34 PM End of Report [facility] 02/08/2015 14:5 1 EDT 02/09/2015 14:51 EDT us Jasbir Escobar DPM PATHOLOGY ORDERABLES Loreto howard Result [facility] [address] [place] [address] documented in this encounter Visit Diagnoses Not on filedocumented in this encounter Care Teams Senior Rd Engineer Relationship Specialty Start Date End Date Otto Muller MD [address] [place] [address] PCP - General 12/09/13 documented as of this encounter
--- OUTSIDE RECORDS SUMMARY | 2024-07-06 18:58 | XMS_ITS | Encounter Summary ---
Author Organization [facility] Address [address] [place] [address] Care Team Providers Care Farmer General Name Role Phone Souleymane Muller MD Primary Care Provider [phone] Encounter Details Date Type Department Care Team (Latest Contact Info) Description 12/09/2013 11:02 EDT - 12/09/2013 23:59 EDT Hospital Encounter [address] [address] Unknown, Provider, MD Discharge Disposition: Home or [...] Code Departure Means Destination Home or Self Senior Care documented in this encounter Plan of Treatment Not on file documented as of this encounter Visit Diagnoses Not on filedocumented in this encounter Care Teams Farmer General Relationship Specialty Start Date End Date Souleymane Muller MD [address] [place] [id number] PCP - General 12/09/13 documented as of this encounter
--- OUTSIDE RECORDS SUMMARY | 2024-07-06 18:59 | XMS_ITS | Encounter Summary ---
[place] [address] Care Team Providers Care Injection Molding Supervisor Name Role Phone Roxi Ramirez MD Primary Care Provider [phone] Encounter Details Date Type Department Care Team (Late st Contact Info) Description 10/22/2019 [place] [phone] Kendall Waters RN Social History Tobacco Use Types Packs/Day Years [...] encounter Miscellaneous Notes * Telephone Encounter - Kendall Waters RN - 10/22/2019 3:05 PM EDT The patient's sister / guardian, Netta Herrera calls asking if it is ok with Dr Ochoa if she has the MRI up in [facility] rather then here at [facility]. She says she always gets sick when she comes here documented in this encounter Plan of Treatment Not on file documented as of this encounter Visit Diagnoses Not on filedocumented in this encounter Care Teams Injection Molding Supervisor Relationship Specialty Start Date End Date Roxi Ramirez MD [address] [place] [address] PCP - General Family Medicine 08/25/19 05/01/20 documented as of this encounter
--- OUTSIDE RECORDS SUMMARY | 2024-07-06 18:59 | XMS_ITS | Encounter Summary ---
[place] [address] Care Team Providers Care Radar Mechanic Name Role Phone Roxi Ramirez MD Primary Care Provider [phone] Encounter Details Date Type Department Care Team (Late st Contact Info) Description 01/07/2020 Telephone [place] [phone] Gisella Hinojosa Social History Tobacco Use Types Packs/Day Years [...] encounter Miscellaneous Notes * Telephone Encounter - Gisella Hinojosa - 01/07/2020 1:46 PM EDT Call made to patient's small animal caretaker, Netta FERRER asking to call GI back and give us an update on the MRI that was ordered by Dr. Ochoa documented in this encounter Plan of Treatment Not on file documented as of this encounter Visit Diagnoses Not on filedocumented in this encounter Care Teams Radar Mechanic Relationship Specialty Start Date End Date Roxi Ramirez MD [address] [place], [place] [phone] PCP - General Family Medicine 08/25/19 05/01/20 documented as of this encounter
--- OUTSIDE RECORDS SUMMARY | 2024-07-06 18:59 | XMS_ITS | Encounter Summary ---
[facility] [place] [address] Care Team Providers Care Bessemer Bottom Maker Name Role Phone Souleymane Muller MD Primary Care Provider [phone] Encounter Details Date Type Department Care Team (Late st Contact Info) Description 08/07/2019 [place] [phone] Gisella Hinojosa Social History Tobacco Use Types Packs/Day Years Used Date Smoking Tobacco: Never Assessed Alcohol Use Standard Drinks/Week Comments Never 0 (1 standard drink = 0.6 oz pur e alcohol) Sex and Gender Information Value Date Recorded Sex Assigned at Not on file Gender Identity Not on file Sexual Orientation Not on file documented as of this encounter Miscellaneous Notes * Telephone Encounter - Gisella Hinojosa - 08/07/2019 8:50 AM EST Called facility where patient lives and Alba who does patient scheduling is going to call back Patient needs a f/u with Dr. Ochoa after appt with Dr. Kee documented in this encounter Plan of Treatment Not on file documented as of this encounter Visit Diagnoses Not on filedocumented in this encounter Care Teams Bessemer Bottom Maker Relationship Specialty Start Date End Date Souleymane Muller MD [address] [place] [address] PCP - General General Internal Medicine 06/02/1908/23 documented as of this encounter
--- OUTSIDE RECORDS SUMMARY | 2024-07-06 18:59 | XMS_ITS | Encounter Summary ---
Author Organization [facility] [place] [address] Care Team Providers Care Title Coordinator Name Role Phone Roxi Ramirez MD Primary Care Provider Encounter Details Date Type Department Care Team (Late st Contact Info) Description 01/15/2020 Ancillary Procedure Radiology Library at [facility] ([place] [phone] Roxi Ramirez MD [address] [place] [address] Social History Tobacco Use Types Packs/Day Years [...] Associated Diagnosis Comments FILM LIBRARY STORAGE ONLY MR ABDOMEN Routine 01/15/2020 12:00 AM EDT documented in this encounter Results * Film Library- Storage Only MR Abdomen (01/15/2020 12:00 AM EDT) Narrative [facility] - 01/18/2020 12:00 PM EDT This exam is auto-finalizing. It's purpose is for storage only. Roxi Ramirez MD G FILM LIBRARY ORD ERABLES [facility] [place], [place] documented in this encounter Visit Diagnoses Not on filedocumented in this encounter Care Teams Title Coordinator Relationship Specialty Start Date End Date Roxi Ramirez MD [address] [place] [address] PCP - General Family Medicine 08/25/19 05/01/20 documented as of this encounter
--- OUTSIDE RECORDS SUMMARY | 2024-07-06 18:59 | XMS_ITS | Encounter Summary ---
Author Organization Formerly [facility] Address [facility] [place] [address] Care Team Providers Care Plaster Die Maker Name Role Phone Souleymane Muller MD Primary Care Provider [phone] Encounter Details Date Type Department Care Team (Late st Contact Info) Description 07/28/2019 8:30 AM EST Office Visit [place] [address] Remington Ochoa MD [facility] [place] [address] IgG4 related disease; Abnormal results of liver function studies Social History Tobacco Use Types Packs/Day Years [...] Progress Notes * Remington Ochoa MD - 07/28/2019 8:30 AM EST Images from the original note were not included. GI PROBLEM LIST Here in follow up I met her September of last year regarding oropharyngeal dysphagia She is accompanied by her family today. They say she met with a speech pathologist and her swallowing is markedly improved, feeding tube removed However, last summer started to develop abdominal and flank pain., CT in january showed GB thickening and involvment of adjacent liver suspicious for a neoplastic process She underwent a biopsy of the area DIAGNOSIS Negative for Malignancy Electronically signed by: ??Morgan Flores MD Verified: ??06/29/2019 ?Pathologist Performed at: ??-[facility] Dept. of Pathology, [place], [place] DISCUSSION Gallbladder wall (CT-guided needle core biopsy and [...] liver cirrhosis and gallbladder fibrosis is unclear. Iron stain is negative and trichrome stain shows cirrhosis. Dr. Llanes has reviewed the case and concurs with the findings. Review of Systems: All other systems negative except as above in HPI No past medical history on file. Past Surgical History: Procedure Laterality Date ??? CT GUIDED BIOPSY PERITONEAL/OMENTAL 06/25/2019 CT Guided Biopsy Peritoneal/Omental 06/25/2019 [facility] RAD CAT SCAN Social History: reports that she does not drink alcohol. Family History: family history is not on [...] Allergies Allergen Reactions ??? Sulfa (Sulfonamide Antibiotics) Physical Examination: There were no vitals taken for this visit. Alert and oriented, No acute distress Anicteric, acyanotic, MMM No neck adenopathy, no thyromegaly No wheezing Regular rhythm Abdomen soft, non-tender, non-distended, normal bowel sounds No edema No rashes Additional Testing: Reviewed available labs, imaging and endoscopy results in ED[facility]/CIS as well as Scan Docs tab. Labs: No results found for: WBC, HGB, HCT, MCV, PLATELET Chemistry No results found for: NA, K, CL, CO2, BUN, CREATININE No results found for: CALCIUM, ALKPHOS, AST, ALT, BILITOT No results found for: ALT, AST, GGT, ALKPHOS, BILITOT IMPRESSION AND RECOMMENDATIONS: Christie Gaona is a 64 y.o. woman returning for evaluation of a new abnormality. 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 Her family says that since that time she met again with a speech pathologist, her swallowing markedly improved, and her feeding tube was removed. However, last summer developed RUQ pain and underwent imaging showing a markedly thickened gallbladder fundus with involvement of adjacent liver, suspicious for a neoplastic process. 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 The pathology report also notes cirrhosis and focal steatosis. Regarding her liver disease, I am going to contact our pathology department regarding the liver sample, and whether there was sufficient tissue for general examination and additional staining. Her chronic liver disease may or may not be related to IgG4 disease (e.g., possible cirrhosis from fatty liver disease). I counseled Ms Gaona and her family that regardless of the etiology, periodic surveillance imaging for hepatoma is recommended, and EV screening. Will plan for blood work today as well as schedule for MRI hepatoma protocol, and EGD for EV screening. 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 I counseled Ms gaona and her family that this is systemic disorder that has been described to effect multiple different organs, including the liver and biliary system. If she has active IgG4 related hepatitis I would recommend treatment. If she has isolated GB involvement, and is otherwise feeling well, I am not sure the benefits of immunosuppressive therapy in her caseoutweigh the risk - furthermore, I do not know what outcomes may be improved with steroid/thiopurine therapy. Will order MRCP to examine biliary system to be performed at time of MR hepatoma protocol. Whether she should undergo cholecystectomy was also discussed. She was seen in surgical consultatio n. I will discuss this with our surgical department; however, I suspect that it would not be a simple operation and her performance status and comorbid disease places her at higher risk of adverse surgical outcomes. By shared decision making, we collectively agreed to monitor for now. Remington Ochoa MD Soule[place] [address] No referring provider defined for this encounter. documented in this encounter Miscellaneous Notes * Addendum Note - Brandt Hough - 07/28/2019 8:30 AM ESTAddended by: BRANDT HOUGH on: 07/28/2019 09:57 AM Modules accepted: Orders documented in this encounter Plan of Treatment Not on file documented as of this encounter Procedures Procedure Name Priority Date/Time Associated Diagnosis Comments SCAN, PERIPHERAL BLOOD Routine 0 10:12 AM EST [facility] LIVER-KIDNEY MICROSOMAL AB Routine 07/28/2019 10:12 AM EST IgG4 related disease HEMOGRAM Routine 07/28/2019 10:12 AM EST IgG4 related disease DIFFERENTIAL, AUTOMATED Routine 07/28/2019 10:12 AM EST IgG4 related disease HC HEPATITIS C ANTIBODY Routine 07/28/2019 10:12 AM EST IgG4 related disease HC HEPATITIS A, TOTAL Routine 07/28/2019 10:12 AM EST IgG4 related disease HC P[facility] MITOCHONDRIAL ANTIBODY Routine 07/28/2019 10:12 AM EST IgG4 related disease HC HEPATITIS B CORE AB Routine 0 10:12 AM EST IgG4 related disease IGG 4 Routine 07/28/2019 10:12 AM EST [facility] SMOOTH MUSCLE AB, SERUM Routine 07/28/2019 10:12 AM EST IgG4 related disease HC HEPATITIS B SURFACE AB Routine 07/28/2019 10:12 AM EST IgG4 related disease HC HEPATITIS B SURFACE AG Routine 07/28/2019 10:12 AM EST IgG4 related disease HC PROTHROMBIN TIME Routine 07/28/2019 1 0:12 AM EST Abnormal results of liver function studies IgG4 related disease HC CBC,PLT & AUTO DIFF Routine 0 10:12 AM EST IgG4 related disease HC ANTINUCLEAR ANTIBODY,SERUM Routine 07/28/2019 10:12 AM EST IgG4 related disease HC IGM, SERUM Routine 07/28/2019 10:12 AM EST IgG4 related disease HEPATIC FUNCTION PANEL Routine 0 10:12 AM EST IgG4 related disease BASIC METABOLIC PANEL Routine 07/28/2019 10:12 AM EST IgG4 related disease documented in this encounter Results * (ABNORMAL) IgG 4 (07/28/2019 10:12 AM EST) [facility] IgG 4 174.8(H) 4.0 - 86.0 mg/dL [facility] Comment: Test Performed by Jim Russell, [email or web address], [address] [place] [address] Abe Pizano M.D., Ph.D., Director of Laboratories , [facility] [id number] Blood specimen (specimen) Venous Draw / Unknown 07/28/2019 10:12 AM EST 07/31/2019 6:52 AM EST Narrative Resulting Agency Comment Spec In Lab Remington Ochoa MD IMMUNOLOGY ORDERABLE S Performing Organization Address City/[facility]/ZIP Co de Phone Number [facility] [place] [address] * Scan, Peripheral Blood (07/28/2019 10:12 AM EST) [facility] Plat estimate Increased [facility] RBC Morphology Abnormal [facility] Microcyte 1-5 /HPF [facility] Hypochromia Slight [facility] Ovalocytes 1-5 /HPF [facility] Stippled RBC Present >1/HPF [facility] Blood specimen (specimen) 07/28/2019 10:12 AM EST 07/28/2019 10:18 AM EST Narrative Resulting Agency Comment Spec In Lab Remington Ochoa MD HEMATOLOGY ORDERABLE S [facility] [place] [address] * (ABNORMAL) Differential, Automated (07/28/2019 10:12 AM EST) [facility] Neutrophil % 88.1 % [facility] Neutrophil Absolute 9.85(H) 1.70 - 6.10 x10(3)/mc L [facility] Lymph % 5.2 % [facility] Lymphocytes Abs 0.6(L) 0.9 - 3.2 x10(3)/[facility] Monocyte % 4.4 % [facility] Monocyte Abs 0.5 0.3 - 0.9 x10(3)/[facility] Eos % 1.9 % [facility] Eosinophils Abs 0.2 0.0 - 0.4 x10(3)/[facility] Basophil % 0.2 % [facility] Baso Absolute 0.0 0.0 - 0.1 x10(3)/[facility] Immature Gran % 0.20 % [facility] Comment: Immature granulocytes(IG's)percentage and absolute count will include metamyelocytes, myelocytes, and promyelocytes. Blood smears from CBCs yielding IG's will be scanned manually for concordance. If this scan disagrees with the automated IG or if promyelocytes are noted, a manual differential will be performed. Immature Gran Absolute 0.02 0.00 - 0.04 x10(3)/[facility] Blood specimen (specimen) 07/28/2019 10:12 AM EST 07/28/2019 10:18 AM EST Narrative Resulting Agency Comment Spec In Lab Remington Ochoa MD HEMATOLOGY ORDERABLE S Performing Organization Address City/State/[facility] Co de Phone Number [facility] [place] [address] * (ABNORMAL) Hemogram (07/28/2019 10:12 AM EST) White Blood Cell 11.2(H) 4.0 - 9.5 x10(3)/[facility] Red Blood Cell 5.34(H) 4.00 - 5.21 x10(6)/[facility] Hemoglobin 12.7 11.7 - 15.5 gm/dL [facility] Hematocrit 44.0 35.7 - 45.8 % [facility] Mean Cell Volume 82.4(L) 82.6 - 94.[address] [facility] Mean Cell Hemoglobin 23.8(L) 27.1 - 32.[address] [facility] Mean Cell Hemoglobin Concentration 28.9(L) 31.7 - 35.0 gm/dL [facility] Platelet 385(H) 145 - 357 x10(3)/mc L [facility] RDW Standard Deviation 48.0(H) 37.0 - 46.[address] [facility] RDW coefficient of variation 16.1(H) 11.5 - 14.1 % [facility] Mean Platelet Volume 10.2 7.6 - 12.[address] [facility] NRBC% auto 0.0 % [facility] NRBC Absolute 0.000 0.000 - 0.000 x10(3)/mc L [facility] Blood specimen (specimen) 07/28/2019 10:12 AM EST 07/28/2019 10:18 AM EST Narrative Resulting Agency Comment Spec In Lab Remington Ochoa MD HEMATOLOGY ORDERABLE S Performing Organization Address City/[facility]/ZIP Co de Phone Number [facility] [place] [address] * IgM (07/28/2019 10:12 AM EST) IgM 84 40 - 230 mg/dL [facility] Blood specimen (specimen) 07/28/2019 10:12 AM EST 07/28/2019 10:38 AM EST Narrative Resulting Agency Comment Spec In Lab Remington Ochoa MD CHEMISTRY ORDERABLES Performing Organization Address City/[facility]/ZIP Co de Phone Number [facility] [place] [address] * [place] ([facility]/CGP) (07/28/2019 10:12 AM EST) [place] Neg Neg [facility] Comment:Anti-nuclear antibod ies were tested using an indirect immunofluorescent assay. Blood specimen (specimen) 07/28/2019 10:12 AM EST 07/28/2019 11:35 AM EST Narrative Resulting Agency Comment Spec In Lab Remington Ochoa MD LAB SEND OUT ORDERAB LES Performing Organization Address City/[facility]/ZIP Co de Phone Number [facility] [place] [address] * Mitochondrial Antibody, M2 (07/28/2019 10:12 AM EST) Mitochon Ab (OCTOBER) <0.1 <0.1 (Negative) [facility] Comment: Test Performed by: [facility] [place] [address] General Claims Agent: Aquilino Valdivia M.D. Ph.D.; CLIA# [id number] Blood specimen (specimen) 07/28/2019 10:12 AM EST 07/28/2019 12:45 PM EST Narrative Resulting Agency Comment Spec In Lab Remington Ochoa MD LAB SEND OUT ORDERAB LES Performing Organization Address [facility] Co de Phone Number [facility] [place] [address] * Liver/Kidney Microsome Type 1 Antibody (07/28/2019 10:12 AM EST) Lily/Kid Mirco1 (OCTOBER) <5.0 <=20.0 (Negative) [facility] Comment: Test Performed by: [facility] [place] [address] General Claims Agent: Aquilino Valdivia M.D. Ph.D.; CLIA# [id number] Blood specimen (specimen) 07/28/2019 10:12 AM EST 07/28/2019 12:45 PM EST Narrative Resulting Agency Comment Spec In Lab Remington Ochoa MD LAB SEND OUT ORDERAB LES Performing Organization Address City/[facility]/ZIP Co de Phone Number [facility] [place] [address] * Smooth Muscle Antibody (07/28/2019 10:12 AM EST) Sm Muscle Ab (OCTOBER) Negative Negative Sophia DAS [facility] Comment: ADDITIONAL INFORMATION This test was developed and its performance characteristics determined by [facility] in a manner consistent with CLIA requirements. This test has not been cleared or approved by the U.S. Food and Drug Administration. Test Performed by: [facility] [address] [place] [address] General Claims Agent: Aquilino Valdivia M.D. Ph.D.; CLIA# [id number] Blood specimen (specimen) 07/28/2019 10:12 AM EST 07/28/2019 12:45 PM EST Narrative Resulting Agency Comment Spec In Lab Remington Ochoa MD LAB SEND OUT ORDERAB LES Performing Organization Address City/[facility]/ZIP Co de Phone Number [facility] [place] [address] * Hepatitis A Antibody, Total (07/28/2019 10:12 AM EST) Hepatitis A ANTIBODY, TOTAL Negative Negative [facility] Blood specimen (specimen) 07/28/2019 10:12 AM EST 07/28/2019 10:38 AM EST Narrative Resulting Agency Comment Spec In Lab Remington Ochoa MD CHEMISTRY ORDERABLES Performing Organization Address [facility]/ZIP Co de Phone Number [facility] [place] [address] * Hepatitis B Core Antibody, Total (07/28/2019 10:12 AM EST) Hepatitis B Core Antibody Negative Negative [facility] Blood specimen (specimen) 07/28/2019 10:12 AM EST 07/28/2019 10:38 AM EST Narrative Resulting Agency Comment Spec In Lab Remington Ochoa MD CHEMISTRY ORDERABLES Performing Organization Address [facility] Co de Phone Number [facility] [place] [address] * Hepatitis B Surface Antibody (07/28/2019 10:12 AM EST) Hepatitis B Surface Antibody, Quantitative <3.5 IU/L [facility] Comment: HepB Surface Ab Quant: Unvaccinated: < 8.5 IU/L Vaccinated: > 11.5 IU/L Hepatitis B Surface Antibody Negative [facility] Comment: Patient is presumed to be not vaccinated or immune to HBV infection. Expected Results: Vaccinated: Positive Unvaccinated: Negative Blood specimen (specimen) 07/28/2019 10:12 AM EST 07/28/2019 10:38 AM EST Narrative Resulting Agency Comment Spec In Lab Remington Ochoa MD CHEMISTRY ORDERABLES Performing Organization Address [facility] Co de Phone Number [facility] [place] [address] * Hepatitis B Surface Antigen (07/28/2019 10:12 AM EST) Hepatitis B Surface Antigen Negative Negative [facility] Blood specimen (specimen) 07/28/2019 10:12 AM EST 07/28/2019 10:38 AM EST Narrative Resulting Agency Comment Spec In Lab Remington Ochoa MD CHEMISTRY ORDERABLES Performing Organization Address [facility] Co de Phone Number [facility] [place] [address] * Hepatitis C Antibody (07/28/2019 10:12 AM EST) Hepatitis C Antibody Negative Negative [facility] Blood specimen (specimen) 07/28/2019 10:12 AM EST 07/28/2019 10:38 AM EST Narrative Resulting Agency Comment Spec In Lab Remington Ochoa MD CHEMISTRY ORDERABLES Performing Organization Address [facility] Co de Phone Number [facility] [place] [address] * Prothrombin Time (07/28/2019 10:12 AM EST) Prothrombin Time 12.4 9.4 - 12.[address] [facility] International Normalization Ratio 1.[address] [facility] Comment: An INR <2.0 indicates adequate procoagulant activity for hemostasis in most patients without underlying bleeding disorders, though the INR may not adequately reflect hemostatic capacity in patients with liver disease and synthetic impairment. The recommended target INR range for therapeutic anticoagulation is 2.0 ? 3.0 for most applications, though lower and higher ranges may be appropriate depending on clinical circumstances. Blood specimen (specimen) 07/28/2019 10:12 AM EST 07/28/2019 10:18 AM EST Narrative Resulting Agency Comment Spec In Lab Remington Ochoa MD HEMATOLOGY ORDERABLE S Performing Organization Address [facility] de Phone Number [facility] [place] [address] * (ABNORMAL) Hepatic Function Panel (07/28/2019 10:12 AM EST) Pathologist [facility] Protein, Total 8.0 6.1 - 8.0 gm/dL [facility] Albumin 4.3 3.2 - 5.2 gm/dL [facility] Aspartate Aminotransferase 15 0 - 30 unit/L [facility] Alanine Aminotransferase 15 0 - 30 unit/L [facility] Alkaline Phosphatase 110(H) 35 - 105 unit/L [facility] Bilirubin, Total 0.3 0.2 - 1.3 mg/dL [facility] Bilirubin, Direct 0.1 0.0 - 0.3 mg/dL [facility] Blood specimen (specimen) 07/28/2019 10:12 AM EST 07/28/2019 10:18 AM EST Narrative Resulting Agency Comment Spec In Lab Remington Ochoa MD CHEMISTRY ORDERABLES [facility] [place] [address] * (ABNORMAL) Basic Metabolic Panel (non-fasting) (07/28/2019 10:12 AM EST) Glucose 114 65 - 199 mg/dL [facility] Comment:Diabetes: >=200 mg/d L plus symptoms Blood Urea Nitrogen 17 8 - 18 mg/dL [facility] Creatinine 0.69(L) 0.70 - 1.20 mg/dL [facility] Sodium 143 135 - 145 mmol/L [facility] Potassium 3.5 3.5 - 5.0 mmol/L [facility] Comment: Please note: ??Patients with WBC >100,000 may have falsely elevated Potassium levels. ??For accurate Potassium quantification in these patients send serum separator tube (gold top) for subsequent determinations. ??Contact the Clinical Chemistry Laboratory if there are any questions. Chloride 98 98 - 107 mmol/L [facility] Carbon Dioxide 31 22 - 31 mmol/L [facility] Anion Gap 14 5 - 15 mmol/L [facility] Calcium 9.6 8.5 - 10.5 mg/dL [facility] Est Glomerular Filtration Rate 92 >=60 mL/min/1. 73 m?? [facility] Comment: The eGFR was calculated using the CKD-EPI equation. As with all creatinine based estimates of kidney function, eGFR values calculated with the CKD-EPI equation are not accurate in patients with acute kidney failure, extremes of body mass or the acutely ill. [email or web address] eGFR 107 >=60 mL/min/1. 73 m?? [facility] Comment: The eGFR was calculated using the CKD-EPI equation. As with all creatinine based estimates of kidney function, eGFR values calculated with the CKD-EPI equation are not accurate in patients with acute kidney failure, extremes of body mass or the acutely ill. [email or web address] Blood specimen (specimen) 07/28/2019 10:12 AM EST 07/28/2019 10:18 AM EST Narrative Resulting Agency Comment Spec In Lab Remington Ochoa MD CHEMISTRY ORDERABLES [facility] [place] [address] documented in this encounter Visit Diagnoses Diagnosis IgG4 related disease Abnormal results of liver function studies Nonspecific abnormal results of liver function study documented in this encounter Care Teams Plaster Die Maker Relationship Specialty Start Date End Date Souleymane Muller MD [address] [place] [id number] PCP - General General Internal Medicine 06/02/1908/23 documented as of this encounter
--- OUTSIDE RECORDS SUMMARY | 2024-07-06 18:59 | XMS_ITS | Encounter Summary ---
Author Organization Formerly [facility] [place] [address] Care Team Providers Care Insulation Nozzleman Name Role Phone Unavailable Primary Care Provider Unavailabl e Encounter Details Date Type Department Care Team (Late st Contact Info) Description 07/04/2018 Ancillary Procedure Radiology Library at [place] [address] Remington Ochoa MD [facility] [place] [address] Social History Tobacco Use Types Packs/Day Years Used Date Smoking Tobacco: Never Assessed Sex and Gender Information Value Date Recorded Sex Assigned at Not on file Gender Identity Not on file Sexual Orientation Not on file documented as of this encounter Plan of Treatment Not on file documented as of this encounter Procedures Procedure Name Priority Date/Time Associated Diagnosis Comments FILM LIBRARY STORAGE ONLY CT ABDOMEN Routine 07/04/2018 12:00 AM EST documented in this encounter Results * Film Library- Storage Only CT Abdomen (07/04/2018 12:00 AM EST) Narrative RAD - 07/21/2019 3:28 PM EST This exam is auto-finalizing. It's purpose is for storage only. Remington Ochoa MD IMG FILM LIBRARY ORD ERABLES [place], [place] documented in this encounter Visit Diagnoses Not on filedocumented in this encounter
--- OUTSIDE RECORDS SUMMARY | 2024-07-06 18:59 | XMS_ITS | Encounter Summary ---
Author Organization Formerly [facility] Address [facility] [place] [address] Care Team Providers Care Gasket Notcher Name Role Phone Souleymane Muller MD Primary Care Provider [phone] Encounter Details Date Type Department Care Team (Late st Contact Info) Description 07/21/2019 Telephone [place] [id number] Tish Gallo Social History Tobacco Use Types Packs/Day Years Used Date Smoking Tobacco: Never Assessed Alcohol Use Standard Drinks/Week Comments Never 0 (1 standard drink = 0.6 oz pur e alcohol) Sex and Gender Information Value Date Recorded Sex Assigned at Not on file Gender Identity Not on file Sexual Orientation Not on file documented as of this encounter Miscellaneous Notes * Telephone Encounter - Tish Gallo - 07/21/2019 8:40 AM EST [facility] called to schedule an appt for pt to see Dr. Ochoa. I scheduled an appt for next Saturday,07/28. The nurse from [facility] said they are having pt's recent imaging pushed to us from [facility], and they will also fax records to us prior to her visit. documented in this encounter Plan of Treatment Not on file documented as of this encounter Visit Diagnoses Not on filedocumented in this encounter Care Teams Gasket Notcher Relationship Specialty Start Date End Date Souleymane Muller MD [address] [place] [id number] PCP - General General Internal Medicine 06/[birth year]08[birth year]23 documented as of this encounter
--- OUTSIDE RECORDS SUMMARY | 2024-07-06 18:59 | XMS_ITS | Encounter Summary ---
Author Organization [facility] Address [facility] [place] [address] Care Team Providers Care Colorist Dyer Name Role Phone Souleymane Muller MD Primary Care Provider [phone] Reason for Referral * Consultation (Routine) - Closed Specialty Diagnoses / Procedures Referred By Contac t Referred To Contact General Surgery Diagnoses Calculus of gallbladder with acute cholecystitis without obstruction Remington Ochoa MD [facility] [place] [address] Jacinda Kee MD [facility] [place] [address] Referral ID Status Reason Start Date Expiration Date V isits Requested Visits Authorized [id number] Closed Consult, Test & Treat 07/30/2019 07/29/2020 1 1 Encounter Details Date Type Department Care Team (Late st Contact Info) Description 07/30/2019 Orders [place] [address] Remington Ochoa MD [facility] [place] [address] Calculus of gallbladder with acute cholecystitis without obstruction Social History Tobacco Use Types Packs/Day Years [...] Progress Notes * Remington Ochoa MD - 07/30/2019 1:42 PM EST I just called and spoke with Netta Randolph, one of Ms Gardiner's daughters and POA/ health care decision proxy. I met with Ms Gardiner's other daughter Tiny Hameed and brother in the office on Saturday. I wanted to update Ms Gardiner and her family on the outcome of my presentation of Ms Gardiner during GI radiology rounds yesterday. There were opinions that the biopsy results could be misleading, an underlying malignancy may stillbe a possibility, and that a cholecystectomy should be pursued. I presented the alternative that if she has a non malignant disease, a surgery in the context of her cirrhosis and other comorbid medical conditions could unnecessarily place her at risk of complications and decompensation. It was agreed that additional evaluation with regards to her actual operative candidacy should be performed. Therefore, I am going to place a referral for Ms Gardiner to be seen by one of our surgical oncologists. I also recommend proceeding with repeat imaging as previously recommended. documented in this encounter Plan of Treatment Scheduled Referrals Name Type Priority Associated Diagnoses Orde r Schedule Referral to Surgical Oncology Outpatient Referral Routine Calculus of gallbladder with acute cholecystitis without obstruction Ordered: 07/30/2019 documented as of this encounter Visit Diagnoses Diagnosis Calculus of gallbladder with acute cholecystitis without obstruction Calculus of gallbladder with acute cholecystitis, without mention of obstruction documented in this encounter Care Teams Colorist Dyer Relationship Specialty Start Date End Date Souleymane Muller MD [address] [place] [id number] PCP - General General Internal Medicine 06/02/1908/23 documented as of this encounter
--- OUTSIDE RECORDS SUMMARY | 2024-07-06 18:59 | XMS_ITS | Encounter Summary ---
Author Organization [facility] [place] [address] Care Team Providers Care Data Warehousing Specialist Name Role Phone Souleymane Muller MD Primary Care Provider [phone] Reason for Referral * Diagnostic Test (Routine) - Closed Specialty Diagnoses / Procedures Referred By Cesar pagan Referred To Contact Radiology Diagnoses Thickening of wall of gallbladder Procedures CT Guided Biopsy Peritoneal/Omental Tequila Jang MD [address] [place] [address] [address] [place] [address] [facility] [place] [address] Referral ID Status Reason Start Date Expiration Date V isits Requested Visits Authorized [id number] Closed Specialty Service Requested 06/05/2019 06/04/2020 1 1 Reason for Visit * Diagnostic Test (Routine) - Closed Specialty Diagnoses / Procedures [facility] Referred To Contact Radiology Diagnoses Thickening of wall of gallbladder Procedures CT Guided Biopsy Peritoneal/Omental Tequila Jang MD [address] [place] [address] [address] [place] [address] [facility] [place] [address] Referral ID Status Reason Start Date Expiration Date V isits Requested Visits Authorized [id number] Closed Specialty Service Requested 06/05/2019 06/04/2020 1 1 Encounter Details Date Type Department Care Team (Latest Contact Info) Description 06/25/2019 8:06 AM EST - 06/25/2019 11:59 PM EST Hospital [place] [address] Tequila Jang MD Thickening of wall of gallbladder Discharge Disposition: Home Social History Tobacco Use Types Packs/Day Years Used Date Smoking Tobacco: Never Assessed Alcohol Use Standard Drinks/Week Comments Never 0 (1 standard drink = 0.6 oz pur e alcohol) Sex and Gender Information Value Date Recorded Sex Assigned at Not on file Gender Identity Not on file Sexual Orientation Not on file documented as of this encounter Last Filed Vital Signs Vital Sign Reading Time Taken Comments Blood Pressure 144/97 06/25/2019 10:30 AM EST Pulse 83 06/25/2019 9:30 AM EST Temperature 36.2 ??C (97.2 ??F) 06/25/2019 9:39 AM ES T Respiratory Rate 16 06/25/2019 10:30 AM EST Oxygen Saturation 97% 06/25/2019 10:30 AM EST Inhaled Oxygen Concentration - - Weight - - Height - - Body Mass Index - - documented in this encounter Discharge Instructions * Discharge Instructions* Mercedes Leavitt RN - 06/25/2019 10:01 AM EST [facility] Vascular and Interventional Radiology Biopsy Discharge Instructions ??? Liver, kidney or bone biopsy: call your doctor immediately if you develop a sudden onset of weakness, increased pain or swelling at the biopsy site or heavy bleeding at the biopsy site. ??? Lung biopsy: coughing up a little blood is common during the next 24 hours. If large blood clots come up, or if the bleeding gets worse, you should contact us or your doctor immediately. The mostcommon complication is collapse of the lung. The symptoms of lung collapse are increasing pain on breathing, often extending into the shoulder on the side of the biopsy, and increasing difficulty breathing. If these symptoms occur after you leave the hospital, have someone drive you to the nearest Emergency Department as it must be treated promptly or call 911. Activity And Diet: ??? Go home and rest quietly for the remainder of the day. You may resume your normal activities tomorrow. ??? Resume your usual diet after the procedure. ??? Do not drive, sign any important/legal documents, or make any important decisions for 24 hours following sedation medications. When to call your healthcare provider: ??? If you see any redness, swelling or drainage at the biopsy site. ??? If you develop chills. ??? If you have a fever greater than or equal to 101 degrees Fahrenheit. ??? If you develop pain around the biopsy site. Bandage: ??? Check the dressing/bandaid throughout the day for an increase in drainage. Keep the biopsy sitedry for 24 hours. Replace the bandaid as needed. You may shower 24 hours after the biopsy. Medication: ??? DO NOT take aspirin-containing products, ibuprofen, or blood-thinning medication for the next 24 hours unless your clinician says you may do so. ??? Generally you may use acetaminophen as needed for discomfort unless you have liver disease and are instructed not to take acetaminophen. Biopsy Results ??? The results of your biopsy should be available within 5 business days and will be reported to you by your primary memory care program resident or the clinician who ordered the biopsy. Please do not call us forresults as we will not have them. ??? If you have not been contacted by your clinician within 5 business days you should call that office for further information. When to call the Interventional Radiology Department: Please call with any questions or concerns. If it is during regular office hours, please call [phone]. If it is after regular office hours, or on weekends or holidays, please call [phone] and ask to speak to the Art Conservator case monitor for Interventional Radiology. You have received medication during your procedure to help lessen anxiety and keep you comfortable.These medications affect judgement and reaction time. We recommend that you do not drive, operate equipment, sign any important documents, or smoke unattended for 24 hours following your procedure. Because of the sedation, be careful on stairs, as you may be unsteady on your feet. You may resume your regular diet as tolerated. IV site -- slight redness, or tenderness is normal, you can use a warm compress. If tenderness and redness increases or foul drainage occurs, please contact your M. D. Revised 04/09/19 documented in this encounter Medications at Time of Discharge Medication Sig Dispensed Refills Start Date End Date acetaminophen (TYLENOL) 325 mg Tablet Take 650 mg by mouth every 4 hours as needed for Pain. 06/25/2019 KLONOPIN 0.5 mg Tablet 02/12/2019 amLODIPine (NORVASC) 5 mg Tablet 2019 VITAMIN D 25 mcg (1,000 unit) Tablet 06/02/2019 cyanocobalamin, vitamin B-12, 1,000 mcg Tablet 03/05/2019 donepezil (ARICEPT) 10 mg Tablet 2019 escitalopram oxalate (LEXAPRO) 5 mg Tablet 2019 famotidine (PEPCID) 20 mg Tablet 2019 folic acid (FOLVITE) 1 mg Tablet 06/03/2019 furosemide (LASIX) 20 mg Tablet 03/19/2019 imipramine (TOFRANIL) 25 mg Tablet 05/05/2019 ipratropium-albuterol (DUONEB) 0.5 mg-3 mg(2.5 mg base)/3 mL Solution for Nebulization 04/06/2019 Lactobacillus acidoph-L.bulgar 100 million cell Powder in Packet 05/26/2019 levoFLOXacin (LEVAQUIN) 750 mg Tablet 04/06/2019 loperamide (IMODIUM A-D) 2 mg Capsule 2019 methIMAzole (TAPAZOLE) 5 mg Tablet 06/03/2019 OLANZapine (ZYPREXA) 10 mg Tablet 01/08/2019 omeprazole (PRILOSEC) 20 mg Capsule, Delayed Release(E.C.) 01/08/2019 potassium chloride ER (K-DUR/KLOR-CON) 20 mEq Tab Sust.Rel. Particle/Crystal 06/03/2019 predniSONE (DELTASONE) 20 mg Tablet 04/06/2019 documented as of this encounter Progress Notes * Kisha Araujo RN - 06/25/2019 8:40 AM EST To procedure room ct2 via stretcher. Onto table supineAll monitors, O2, safety strap in place. Med's per protocol. * Kisha Araujo RN - 06/19/2019 10:12 AM EST ANGIO NURSING DATABASE Name: CHRISTIE WRIGHT Date of : 1955 AGE: 64 y.o. Address: [facility] [address] [address] (home) Mobile: Telephone Information: Referring Provider: Tequila Jang REASON FOR VISIT: Order Questions Answers Where will study be performed? [facility] Radiology [120] Is the patient on anticoagulant / anitplatelet therapy ? Other: see comments field Reason for exam and clinical history: Gallbladder wall tickening, chronic cholecytitis, may represent malignancy. - BX requested to r/o. Clinical information / mariscal questions: Outside order- in scanned docs Does the patient have any pertinent outside imaging? Yes Allergies not on file Pertinent PMH: There is no problem list on file for this patient. Pertinent PSH: No past surgical history on file. Date/Procedure Meds given/comments 06/25/19 Retroperitoneal/omental biopsy Fentanyl 100 IV mcg, Laboratory Results: Medications: Prior to Admission medications Not on File documented in this encounter Procedure Notes * Valentín Acevedo MD - 06/25/2019 8:17 AM EST VIR PREPROCEDURE ADDENDUM Focused Exam: gen: aaox3, NAD, CV: reg rate, S1S2, no M ascultated lung: CTAB, no wheeze or crackles ASA Class 2 Mallimipati 2 Plan: Risks and benefits of procedure discussed w/patient and questions answered. Informed consent was obtained. Proceed w/ CT guided gallbladder fossa/abdominal mass biopsy under conscious sedation. documented in this encounter Plan of Treatment Not on file documented as of this encounter Procedures Procedure Name Priority Date/Time Associated Diagnosis Comments CT GUIDED BIOPSY PERITONEAL/OMENTAL Routine 06/25/2019 9:41 AM EST Thickening of wall of gallbladder NON-HELP DESK INTERNSHIP FINAL REPORT Routine 06/25/2019 9:30 AM EST CYTOPATHOLOGY NON-GYNECOLOGICAL Routine 06/25/2019 8:25 AM EST documented in this encounter Results * CT Guided Biopsy Peritoneal/Omental (06/25/2019 9:41 AM EST) Anatomical Region Laterality Modality Computed Tomogra phy Impressions 06/25/2019 9:57 AM EST Impression: Technically successful core needle CT guided biopsy of gallbladder wall/pericholecystic liver. Physician Internist(s): Resident/Fellow: None Attending: Valentín Acevedo MD Procedure/Teaching Attestation: ??I performed the procedure. Moderate Sedation Attestation: I was present during the intra-service time as documented by IR nurse. Thank you for letting us participate in the care of this patient. For questions regarding this report, please contact the number below. ? Electronically signed by: Valentín Acevedo [facility] ([phone]), at 06/25/2019 9:57 AM Narrative 06/25/2019 9:57 AM EST RADIOLOGY PROCEDURE NOTE Procedure: CT Guided biopsy of the gallbladder wall/pericholecystic liver.. Indication for Procedure: Gallbladder wall tickening, chronic cholecytitis, may represent malignancy. - BX requested to r/o. . Consent: After discussing the risks (including infection, hemorrhage, damage to surrounding structures, respiratory depression) and benefits, the patient consented to the procedure. Method of Sedation: ??Due to the painful nature of the procedure, patient received split doses of intravenous fentanyl and versed from the IR nurse while pulse, pressure, and oxygen saturation were continuously monitored. 1% lidocaine was used for local analgesia. Technique: Prior to beginning the procedure, a standard time out Moment of Truth was performed. The patient was positioned supine on the CT table. ??An initial localizing CT scan of the abdomen was obtained and the skin entry site was marked on the skin with the assistance of the CT laser lights. The skin was prepped and draped in the usual sterile fashion. Local anesthesia provided with 1% lidocaine. A 19 ga introducer needle was directed to the target lesion with the assistance of CT fluoroscopy. Coaxially, 9 core biopsies were taken. The needle was removed. Sterile gauze dressing was applied. A post-procedure non-contrast CT scan was obtained. Medications: Please see EMR Contrast: None EBL: <5 cc Complications: No immediate Specimens: 9 core biopsy samples of the region of the gallbladder wall /pericholecystic liver. Findings: Pre-procedure planning CT exam of the abdomen showed gallbladder wall thickening with abnormality in the adjacent liver. ??Post-biopsy CT showed no hematoma. Procedure Note Valentín Acevedo MD - 06/25/2019 RADIOLOGY PROCEDURE NOTE Procedure: CT Guided biopsy of the gallbladder wall/pericholecysticliver.. Indication for Procedure: Gallbladder wall tickening, chroniccholecytitis, may represent malignancy. - BX requested to r/o. . Consent: After discussing the risks (including infection, hemorrhage,damage to surrounding structures, respiratory depression) and benefits, thepatient consented to the procedure. Method of Sedation: Due to the painful nature of the procedure, patient received split doses of intravenous fentanyl and versed from the IR nursewhile pulse, pressure, and oxygen saturation were continuously monitored. 1%lidocaine was used for local analgesia. Technique: Prior to beginning the procedure, a standard time out Momentof Truth was performed. The patient was positioned supine on the CT table.An initial localizing CT scan of the abdomen was obtained and the skin entrysite was marked on the skin with the assistance of the CT laser lights. Theskin was prepped and draped in the usual sterile fashion. Local anesthesia providedwith 1% lidocaine. A 19 ga introducer needle was directed to the target lesionwith the assistance of CT fluoroscopy. Coaxially, 9 core biopsies were taken.The needle was removed. Sterile gauze dressing was applied. A post-procedure non-contrast CT scan was obtained. Medications: Please see EMR Contrast: None EBL: <5 cc Complications: No immediate Specimens: 9 core biopsy samples of the region of the gallbladder wall /pericholecystic liver. Findings: Pre-procedure planning CT exam of the abdomen showed gallbladderwall thickening with abnormality in the adjacent liver. Post-biopsy CT showedno hematoma. IMPRESSION Impression: Technically successful core needle CT guided biopsy ofgallbladder wall/pericholecystic liver. Physician Internist(s): Resident/Fellow: None Attending: Valentín Acevedo MD Procedure/Teaching Attestation: I performed the procedure. Moderate Sedation Attestation: I was present during the intra-service timeas documented by IR nurse. Thank you for letting us participate in the care of this patient. Forquestions regarding this report, please contact the number below. Electronically signed by: Valentín Acevedo [facility]([phone]), at 06/25/2019 9:57 AM Tequila Jang MD IMG CT ORDERABLES * Non-Pony Ride Operator Final Report (06/25/2019 9:30 AM EST) Diagnosis Discussion [id number] ? Location: [facility] The signing pathologist has (i) examined the relevant preparation(s) for the specimen(s) and (ii) rendered or confirmed the diagnosis(es). . ? Non-Pony Ride Operator Final DIAGNOSIS Negative for Malignancy Electronically signed by: ??Morgan Flores MD Verified: ??06/29/2019 ?Pathologist Performed at: ??-[facility] Dept. 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 Clinical and radiologic correlation is required; suggest evaluating serum IgG4. The relationship between the liver cirrhosis and gallbladder fibrosis is unclear. Iron stain is negative and trichrome stain shows cirrhosis. Dr. Llanes has reviewed the case and concurs with the findings. --- Immunohistochemistry Studies --- ? Immunohistochemical assays were performed (on paraffin-embedded cell block sections fixed in 10% neutral buffered formalin for 6-72 hours) using the polymer technique with appropriate controls. The sections are studied for IgG4/IgG double stain. These immunohistochemical studies provide ancillary information and are used only in conjunction with standard diagnostic procedures. CLINICAL INFORMATION Specimen Source : Gallbladder wall (CT-guided needle core biopsy and touch imprint cytology, assisted) Pertinent Clinical Data and Significant Therapy: Chronic and progressive gallbladder wall thickening. Concern for chronic cholecystitis, adenomyomatosis, or malignancy Clinical Impression : Chronic and progressive gallbladder wall thickening. Concern for chronic cholecystitis, adenomyomatosis, or malignancy Pertinent Radiologic Findings ??: (not provided) Gross Description: . CLINICAL INFORMATION Received in Formalin approximately 45 mL total volume of cloudy, colorless fluid, with clots. Total Preparation: Touch Imprint(s) 4; Needle Core Biopsy Block(s) 1. Intraprocedural Immediate Assessment: Evaluation Episode #1 (1 slide): Inadequate for final diagnosis. Mostly hepatocytes. Evaluation Episode #2 (1 slide): Inadequate for final diagnosis. Mostly hepatocytes. Evaluation Episode #3 (1 slide): Inadequate for final diagnosis. Mostly hepatocytes. Evaluation Episode #4 (1 slide): Inadequate for final diagnosis. Rare atypical cells, hepatocytes, and vessels. Immediate Assessment by: Morgan Flores MD. Note: The above attending cytopathologist personally examined the Immediate Assessment slides and rendered the Immediate Assessment. Such assessments are preliminary; see Diagnosis and Discussion for final interpretation. 06/29/2019 3:00 PM EST [facility] Misc. FNA 06/25/2019 9:30 AM EST 06/25/2019 9:30 AM EST Valentín Acevedo MD PATHOLOGY/CYTOLOGY ORDERABLES [facility] [place] [address] * Cytopathology Non-Gynecological (06/25/2019 8:25 AM EST) AP Specimen 06/25/2019 8:25 AM EST 06/25/2019 8:25 AM EST Narrative [facility] - 06/25/2019 8:25 AM EST Specimen requisition ordered. ??Separate Pathology report to follow Tequila Jang MD PATHOLOGY/CYTOLOGY O RUY [facility] [place] [address] documented in this encounter Visit Diagnoses Diagnosis Thickening of wall of gallbladder documented in this encounter Administered Medications Inactive Administered Medications - up to 3 most recent administrations Medication Order MAR Action Action Date Dose Rate Site fentaNYL 50 mcg/mL multi-dose injection 25-50 mcg, Intravenous, EVERY 3 MIN PRN, Starting on Leigha 06/25/19 at 0812, Until Sat06/26/19 at 0433, Pain, per unit protocol, - Start dose 50 mcg (reduce dose to 25 mcg if history of sedation sensitivity). - Titration dose 25-50 mcg IV, (based on patient response) every 3 minutes PRN, to maintain procedural pain less than 2 per pain Scale. Maximum dose: 50 mcg/dose, 250 mcg/hour For use in Interventional Radiology (IR) only for procedural sedation with direct provider supervision and verbal order., Angio/IR (Intra-Procedure), Routine Given 06/25/2019 9:18 AM EST 25 mcg Given 06/25/2019 9:04 AM EST 25 mcg Given 06/25/2019 8:58 AM EST 25 mcg lidocaine (XYLOCAINE) 10 mg/mL (1 %) injection 10 mg 10 mg, Subcutaneous, ONCE, 1 dose, On Leigha 06/25/19 at 0830, For use in Interventional Radiology (IR) only for procedure with direct provider supervision and verbal order., Angio/IR (Intra-Procedure), Routine Given 06/25/2019 8:30 AM EST 10 mg sodium chloride 0.9 % (flush) flush 5 mL 5 mL, Intravenous, EVERY 12 HOURS, First dose on Leigha 06/25/19 at 0830, Until Discontinued, Angio/IR (Day of Procedure), Routine Given 06/25/2019 8:30 AM EST 5 mLs sodium chloride 0.9% infusion 1,000 mL, at 100 mL/hr, Intravenous, CONTINUOUS, Starting on Leigha 06/25/19 at 0830, Until Sat06/26/19 at 0433, Angio/IR (Day of Procedure) New Bag 06/25/2019 8:58 AM EST 1,000 mLs 100 mL/hr documented in this encounter Care Teams Data Warehousing Specialist Relationship Specialty Start Date End Date Souleymane Muller MD [address] [place] [id number] PCP - General General Internal Medicine 06/02/1908/23 documented as of this encounter
--- OUTSIDE RECORDS SUMMARY | 2024-07-06 18:59 | XMS_ITS | Encounter Summary ---
Author Organization [facility] Address [facility] [place] [address] Care Team Providers Care Leave Manager Name Role Phone Roxi Ramirez MD Primary Care Provider [phone] Reason for Referral * Consultation (Routine) - Canceled Specialty Diagnoses / Procedures Referred By Contcele t Referred To Contact General Surgery Diagnoses Gallbladder mass Remington Ochoa MD [facility] [place] [address] Jacinda Kee MD [facility] [place] [address] Referral ID Status Reason Start Date Expiration Date V isits Requested Visits Authorized [id number] Canceled Consult, Test & Treat 12/09/2019 12/08/2020 1 1 Encounter Details Date Type Department Care Team (Late st Contact Info) Description 12/09/2019 [place] [address] Remington Ochoa MD [facility] [place] [address] Gallbladder mass Social History Tobacco Use Types Packs/Day Years Used Date Smoking Tobacco: Never Smokeless Tobacco: Never Alcohol Use Standard Drinks/Week Comments Never 0 (1 standard drink = 0.6 oz pur e alcohol) Sex and Gender Information Value Date Recorded Sex Assigned at Not on file Gender Identity Not on file Sexual Orientation Not on file documented as of this encounter Plan of Treatment Scheduled Referrals Name Type Priority Associated Diagnoses Orde r Schedule Referral to General Surgery Outpatient Referral Routine Gallbladder mass Ordered: 12/09/2019 documented as of this encounter Visit Diagnoses Diagnosis Gallbladder mass Other specified disorder of gallbladder documented in this encounter Care Teams Leave Manager Relationship Specialty Start Date End Date Roxi Ramirez MD [address] [place] [address] [address] [facility] [address] [place] [address] PCP - General Family Medicine 08/25/19 05/01/20 documented as of this encounter
--- OUTSIDE RECORDS SUMMARY | 2024-07-06 18:59 | XMS_ITS | Encounter Summary ---
Author Organization [facility] [place] [address] Care Team Providers Care Production Recorder Name Role Phone Unavailable Primary Care Provider Unavailabl e Reason for Referral * Speech Therapy (Routine) - Closed Specialty Diagnoses / Procedures Referred By Cesar pagan Referred To Contact Speech Pathology / Speech Therapy Diagnoses Meconium aspiration pneumonia, unspecified laterality, unspecified part of lung Saúl Ochoa MD [facility] [place] [address] [facility] [employer] [place] [address] Referral ID Status Reason Start Date Expiration Date V isits Requested Visits Authorized [id number] Closed Evaluate and Treat 09/29/2018 09/29/2019 1 1 Reason for Visit * Consultation (Routine) - Closed Specialty Diagnoses / Procedures Referred By Cesar pagan Referred To Contact Gastroenterology Diagnoses GERD, pt has a PEG Tube placement done on 07/19 Procedures consult with possible manometry if deemed appropriate Fernandez Sigala MD [address] [place] [address] [facility] [place] [address] [address] Referral ID Status Reason Start Date Expiration Date Visits Re quested Visits Authorized [id number] Closed 09/08/2018 09/08/2019 1 1 Encounter Details Date Type Department Care Team (Late st Contact Info) Description 09/29/2018 1:00 PM EDT Office Visit Gastroenterology at [facility] [place] [address] Saúl Ochoa MD [facility] [address] [place] [address] Meconium aspiration pneumonia, unspecified laterality, unspecified part of lung Social History Tobacco Use Types Packs/Day Years Used Date Smoking Tobacco: Never Assessed Sex and Gender Information Value Date Recorded Sex Assigned at Not on file Gender Identity Not on file Sexual Orientation Not on file documented as of this encounter Progress Notes * Saúl Ochoa MD - 09/29/2018 1:00 PM EDT Images from the original note were not included. [facility] Section of Gastroenterology and Hepatology Outpatient Consultation Reason for Visit: aspiration Referred by Fernandez Sigala A History of Present Illness: Christie Gaona is a 63 y.o. woman here for evaluation of aspiration pneumonia. Accompanied by family members and nursing care providers. Briefly, they described a hospitalization in June, with septic shock related to pneumonia attributed to aspiration. 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 Underwent esophagram and EGD. Ultimately PEG was placed, Recalls undergoing endoscopy without stricture or mass. Here to discuss manometry. Family recalls remote past Ms gaona undergoing speech path eval, and being recommended compensatory swallow mechanism, that she stopped doing (family not sure why). Review of Systems: All other systems negative except as above in HPI PMHx{PSHx -severe disability from neuropsychiatric disease Social History: currently in [facility] Family History: no family history of esophageal cancer No current outpatient medications on file. No current facility-administered medications for this visit. Allergies not on file Physical Examination: There were no vitals taken [...] IMPRESSION AND RECOMMENDATIONS: Christie Gaona is a 63 y.o. with severe neuropsychiatric disability here for swallow evaluation. She was accompanied by her sisters. I counseled them on her condition. Oropharyngeal dysfunction has previously been identified for Ms Gaona, and recommendations made to facilitate swallowing are no longer being followed for an unknown period of time. She could be at risk of aspiration pneumonia secondary to oropharyngeal dysfunction both during transfer phase of swallowing and from reflux events, and therefore could still have aspiration events even while NPO with PEGtube. The family felt comfortable that no esophageal obstruction was identified at OSH EGD, and they did not think repeating would be necessary. I recommend re-evaluation by speech and language pathologist. OSH records also indicate the possibiliy of esophageal dysmotility, which could be related to neuropsychiatric medications and disability. If she is not found to have significant oropharyngealdysphagia, I offered to move forward with manometry if the family and patient would like to furtherdefine the basis of possible esophageal dysmotility Saúl Ochoa MD No primary care provider on file. No primary provider on file. Fernandez Sigala MD [address] [place] [address] documented in this encounter Miscellaneous Notes * Addendum Note - Saúl Ochoa MD - 09/29/2018 1:00 PM EDTAddended by: SAÚL OCHOA on: 09/29/2018 03:00 PM Modules accepted: Orders documented in this encounter Plan of Treatment Scheduled Referrals Name Type Priority Associated Diagnoses Orde r Schedule Referral to Speech Therapy Outpatient Referral Routine Meconium aspiration pneumonia, unspecified laterality, unspecified part of lung Ordered: 09/29/2018 documented as of this encounter Visit Diagnoses Diagnosis Meconium aspiration pneumonia, unspecified laterality, unspecified part of lung documented in this encounter
--- OUTSIDE RECORDS SUMMARY | 2024-07-06 18:59 | XMS_ITS | Encounter Summary ---
[place] [address] Care Team Providers Care Engraver Seals Name Role Phone Unavailable Primary Care Provider Unavailabl e Encounter Details Date Type Department Care Team (Late st Contact Info) Description 07/09/2018 External Results 1 [place] [id number] Social History Tobacco Use Types Packs/Day Years Used Date Smoking Tobacco: Never Assessed Sex and Gender Information Value Date Recorded Sex Assigned at Not on file Gender Identity Not on file Sexual Orientation Not on file documented as of this encounter Plan of Treatment Not on file documented as of this encounter Procedures Procedure Name Priority Date/Time Associated Diagnosis Comments ECG SCAN Routine 07/09/2018 documented in this encounter Results * Scan Doc: ECG (07/09/2018) Historical Provider MD ABARCA MGNivia SCAN EX T ORDR/RSLT documented in this encounter Visit Diagnoses Not on filedocumented in this encounter
--- OUTSIDE RECORDS SUMMARY | 2024-07-06 18:59 | XMS_ITS | Encounter Summary ---
Author Organization [facility] [place] [address] Care Team Providers Care Cheesemaking Laborer Name Role Phone Roxi Ramirez MD Primary Care Provider [phone] Encounter Details Date Type Department Care Team (Late st Contact Info) Description 08/25/2019 4:23 PM EST Anesthesia Event [place] [id number] Iker Braden [facility] [place] [address] Ayan Kidd MD [facility] [place] [address] Anesthesia Record Procedure Summary Procedure Name Responsible Anesthesiologist Anesthesia Start Time Anesthesia Stop Time UPPER EUS- ENDOSCOPIC ULTRASOUND (WRVU 3.47) (Trunk) Iker Braden DO 08/25/19 1623 08/25/19 1706 Events Date Time Event Comment 08/25/2019 1435 1623 AN Verify 1623 Start 1623 An Start Data 1628 An Induction 1628 Anesthesia Ready 1631 Procedure Start 1706 an stop data 1706 Recovery or ICU Handoff Flores ent care was transferred to the destination unit staff after review of the patient's medical history, current anesthetic/surgical status and plan, according to the Provider Handoff Checklist. 1706 Stop Meds Name Total Propofol 50 mg Propofol INF 899.84 mg Lactated Ringers 0 mL * Agents Name O2 Air N2O O2 Auxiliary Flowmeter 1 * Blood No blood administrations on file. Lines, Drains, and Airways Type Details Placement Removal Incision 06/25/19; 0900; abdomen; 02/19/22 (LDA cleanup utility RA#[id number]); 1715 (LDA cleanup utility RA#[id number]) 06/25/19 0900 by Kisha Araujo RN 02/19/22 1715 by Frank Montelongo (RETIRED) Peripheral IV Line - Single Lumen 08/25/19; 1423; cephalic vein (lateral side of arm), left; [id number] catheter system; 22 gauge; Kendal Beard RN; distraction; 0; no longer indicated; 08/25/19; 1806 08/25/19 1423 by Arcaelis Beard RN 08/25/19 1806 by Kaylene Mike RN documented in this encounter Social History Tobacco Use Types Packs/Day Years Used Date Smoking Tobacco: Never Smokeless Tobacco: Never Alcohol Use Standard Drinks/Week Comments Never 0 (1 standard drink = 0.6 oz pur e alcohol) Sex and Gender Information Value Date Recorded Sex Assigned at Not on file Gender Identity Not on file Sexual Orientation Not on file documented as of this encounter OR Notes * Anesthesia Postprocedure Evaluation - Iker Braden DO - 08/25/2019 6:38 PM EST Department of Anesthesiology Post-procedure Note Patient: Christie Gardiner Procedure Summary Date: 08/25/19 Room / Location: [facility] ENDO 2 / [facility] ENDOSCOPY Anesthesia Start: 1623 Anesthesia Stop: 1705 Procedures: UPPER EUS- ENDOSCOPIC ULTRASOUND (N/A Trunk) EGD WITH BIOPSY (WRVU 2.49) (N/A Trunk) Diagnosis: (Screening) Surgeon: Connor Clinton MD Responsible Provider: Iker Braden DO Anesthesia Type: MAC ASA Status: 2 All Anesthesia Providers: Anesthesiologist: Iker Braden DO [employer]: Raji Batista CRNA Vitals Value Taken Time BP 128/94 08/25/2019 6:00 PM Temp Pulse 90 08/25/2019 6:00 PM Resp 18 08/25/2019 5:50 PM SpO2 95 % 08/25/2019 6:00 PM Pain Level 0 08/25/2019 6:00 PM Vitals shown include unvalidated device data. Patient Location: PACU/[facility] Level of Consciousness: Awake and Alert Pain Management: Satisfactory Analgesia PONV: None Cardiovascular Status: Hemodynamically Stable Respiratory Status: Stable Respiratory Status and Room Air Postoperative Fluid Status: Intravascular EUvolemia Possible Anesthetic Complications: NONE apparent at time of evaluation Final Primary Anesthesia Type: MAC (The anesthetic type performed was the same as planned.) Comments: Patient had oxygen saturations in the mid 90's prior to discharge. Initially upon emergence the patient has thick secretions which required suctioning. In recovery these secretions subsidedbut the family stated after the procedure that she prone to aspiration. In fact she sleeps with herhead elevated at home. In the future she should get intubated for this type of procedure. Fortunately there was not evidence of aspiration today. Lungs were clear to ascultation in the recovery. She took her incentive spirometry home for use there. * Anesthesia Preprocedure Evaluation - Ayan Kidd MD - 08/25/2019 1:51 PM EST Images from the original note were not included. Pre-Anesthesia Evaluation for: Christie Gardiner a 64 y.o. female. Procedure(s): UPPER EUS- ENDOSCOPIC ULTRASOUND EGD, UPPER GI ENDOSCOPY There are no active problems to display for this patient. No past medical history on file. Past Surgical History: Procedure Laterality Date ??? CT GUIDED BIOPSY PERITONEAL/OMENTAL 06/25/2019 CT Guided Biopsy Peritoneal/Omental 06/25/2019 [facility] RAD CAT SCAN Social History Tobacco Use ??? Smoking status: Not on file Substance Use Topics ??? Alcohol use: Never Frequency: Never Social History Substance and Sexual Activity Drug Use Not on file Allergies Allergen Reactions ??? Sulfa (Sulfonamide Antibiotics) Medications: MAR and/or home medications have been reviewed. Physical Exam: There were no vitals filed for this visit. There is no height or weight on file to calculate BMI. Airway Assessment: Mallampati: III TM distance: >3 FB Neck ROM: full Cardiovascular Assessment: Rhythm: regular Rate: normal Pulmonary Assessment: breath sounds clear to auscultation Dental Assessment: Misc Assessment: Patient is wearing No contact(s). IV access: Peripheral line Anesthesia Plan: ASA 2 MAC, with a(n) intravenous induction Christie Gardiner is a 64 y.o. 118 kg female presenting for EGD/EUS. Pt has a PMH of severe disability from neuropsychiatric disease (Schizophrenia) and cognitive dysfunction, ongoing dysphagia status post gastrostomy catheter placement, HTN, and Hypothyroidism Prior anesthetic hx: no prior anesthesia history on file Labs were reviewed Allergies: -- Sulfa (Sulfonamide Antibiotics) NPO Status: Appropriate Anesthetic Plan: MAC, GA backup Standard ASA monitoring Adequate IV access Ayan Kidd MD PhD #[id number] Region - Other Informed Consent: Anesthetic plan and risks discussed with patient. Plan discussed with [employer]. PAT Clinic Note documented in this encounter Plan of Treatment Not on file documented as of this encounter Visit Diagnoses Not on filedocumented in this encounter Administered Medications Inactive Administered Medications - up to 3 most recent administrations Medication Order MAR Action Action Date Dose Rate Site lactated ringers infusion CONTINUOUS PRN, Starting on 08/25/19 at 1623, Until 08/25/19 at 1706, Anesthesia Intra-op New Bag 08/25/2019 4:23 PM EST propofol (DIPRIVAN) 10 mg/mL bolus injection (Anesthesia) PRN, Starting on 08/25/19 at 1628, Until 08/25/19 at 1706, Anesthesia Intra-op Given 08/25/2019 4:28 PM EST 50 mg propofol (DIPRIVAN) infusion CONTINUOUS PRN, Starting on 08/25/19 at 1628, Until 08/25/19 at 1706, Anesthesia Intra-op, Routine New Bag 08/25/2019 4:28 PM EST 200 mcg/kg/min 142.1 mL/hr documented in this encounter Care Teams Cheesemaking Laborer Relationship Specialty Start Date End Date Roxi Ramirez MD [address] [address] [place] [address] PCP - General Family Medicine 08/25/19 05/01/20 documented as of this encounter
--- OUTSIDE RECORDS SUMMARY | 2024-07-06 18:59 | XMS_ITS | Encounter Summary ---
Author Organization [facility] [place] [address] Care Team Providers Care It Program Auditor Name Role Phone Unavailable Primary Care Provider Unavailabl e Reason for Referral * Speech Therapy (Routine) - Closed Specialty Diagnoses / Procedures Referred By Cesar pagan Referred To Contact Speech Pathology / Speech Therapy Diagnoses Dysphagia, oropharyngeal phase Remington Ochoa MD [facility] [place] [address] [facility] Tele[place] [address] Referral ID Status Reason Start Date Expiration Date V isits Requested Visits Authorized [id number] Closed Evaluate and Treat 10/02/2018 10/02/2019 1 1 Encounter Details Date Type Department Care Team (Late st Contact Info) Description 10/02/2018 Orders [place] [address] Remington Ochoa MD [facility] [place] [address] Dysphagia, oropharyngeal phase Social History Tobacco Use Types Packs/Day Years Used Date Smoking Tobacco: Never Assessed Sex and Gender Information Value Date Recorded Sex Assigned at Not on file Gender Identity Not on file Sexual Orientation Not on file documented as of this encounter Plan of Treatment Scheduled Referrals Name Type Priority Associated Diagnoses Orde r Schedule Referral to Speech Therapy Outpatient Referral Routine Dysphagia, oropharyngeal phase Ordered: 10/02/2018 documented as of this encounter Visit Diagnoses Diagnosis Dysphagia, oropharyngeal phase documented in this encounter
--- OUTSIDE RECORDS SUMMARY | 2024-07-06 18:59 | XMS_ITS | Encounter Summary ---
Author Organization [facility] [place] [address] Care Team Providers Care Marketing Ambassador Name Role Phone Roxi Ramirez MD Primary Care Provider [phone] Encounter Details Date Type Department Care Team (Late st Contact Info) Description 01/16/2020 Ancillary Procedure Radiology Library at [facility] [place] [address] Roxi Ramirez MD [address] [facility] [address] [place] [address] Social History Tobacco Use Types Packs/Day Years [...] Diagnosis Comments FILM LIBRARY STORAGE ONLY CT CHEST ABDOMEN PELVIS Routine 01/16/2020 12:00 AM EDT documented in this encounter Results * Film Library- Storage Only CT Chest Abdomen Pelvis (01/16/2020 12:00 AM EDT) Narrative [facility] - 01/18/2020 12:02 PM EDT This exam is auto-finalizing. It's purpose is for storage only. Roxi Ramirez MD IMG FILM LIBRARY ORD ERABLES [facility] [place], [place] documented in this encounter Visit Diagnoses Not on filedocumented in this encounter Care Teams Marketing Ambassador Relationship Specialty Start Date End Date Roxi Ramirez MD [address] [place] [address] PCP - General Family Medicine 08/25/19 05/01/20 documented as of this encounter
--- OUTSIDE RECORDS SUMMARY | 2024-07-06 18:59 | XMS_ITS | Encounter Summary ---
Author Organization [facility] [place] [address] Care Team Providers Care Special Ed Assistant Name Role Phone Unavailable Primary Care Provider Unavailabl e Encounter Details Date Type Department Care Team (Late st Contact Info) Description 07/09/2018 Telephone Cardiology at [address] [address] Randa Ambrose, FORESTRY TECHNICAL OFFICER [facility] [place] [address] Social History Tobacco Use Types Packs/Day Years Used Date Smoking Tobacco: Never Assessed Sex and Gender Information Value Date Recorded Sex Assigned at Not on file Gender Identity Not on file Sexual Orientation Not on file documented as of this encounter Miscellaneous Notes * Telephone Encounter - Randa Ambrose APRN - 07/09/2018 3:57 PM EST 07/09/2018 Christie Gardiner Initial Contact Date: 07/09/2018 Initial contact time: 1422 Consult Provider: Dr. Sal Patient Location: [facility] Past Medical History: Cognitive Delay HTN GERD OSH Course: Patient started on HCTZ a few weeks ago in addition to her home dose lisinopril. She went to the [facility] the setting of feeling poorly and her SBP was found to be in the 60s with a mild lactate elevation. There was concern for sepsis, blood cultures were drawn and she was started on broad spectrum antibiotics for possible PNA (Ct with atelectasis vs PNA). Echocardiogram WNL. No malignant arrhythmias noted. Started on levophed which her pressures did not respond well too and she became intermittingly bradycardic to the 30s while on this. Transitioned to dopamine with good response, HR now back in the 60s, VSS currently stable. OSH provider requesting cardiology input regarding need for furthercardiac workup/pacemaker. Pertinent Diagnostic Findings: Echo - preserved LVEF no WMAs (not available for review) EKG - see scanned docs Labs - mildly elevated lactate but otherwise WNL at this time (including TSH) CTA - possible PNA, on broad spectrum ABX Home medications: methimazole, donazapil, HCTZ - new, lisinopril, memantine Plan: OSH provider consulting cardiology regarding need for further work up. EKGs reviewed with Dr. Babcock, EP consult MD who felt that these showed SB rather than junctional rhythm, would recommend continuing to monitor the patient on telemetry and once stable see how her chronotropic response is while ambulating, correct underlying etiology. Case also discussed with general cardiology Dr. Lerma whodid not feel that this scenario prompted further need for cardiac evaluation at this time (negativetroponins, no malignant arrhythmias, EKG - SB but otherwise WNL, Echo reportedly normal). These recommendations were relayed to Dr. Sal and he was encouraged to call back should there be a changein status prompting further cardiac evaluation. - above recommendations were based on my discussion with Dr. Sal; I have not personally interviewed or examined this patient. Randa Ambrose APRN Cardiovascular Medicine Pager [phone] 07/09/2018 . documented in this encounter Plan of Treatment Not on file documented as of this encounter Visit Diagnoses Not on filedocumented in this encounter
--- OUTSIDE RECORDS SUMMARY | 2024-07-06 18:59 | XMS_ITS | Encounter Summary ---
Author Organization [facility] Address [facility] [place] [address] Care Team Providers Care Engine Testing Supervisor Name Role Phone Roxi Ramirez MD Primary Care Provider [phone] Encounter Details Date Type Department Care Team (Latest Contact Info) Description 08/25/2019 1:49 PM EST - 08/25/2019 6:17 PM EST Hospital Encounter [place] [address] Connor Clinton MD [facility] [place] [address] Discharge Disposition: Home Social History Tobacco Use [...] Mass Index 42.13 08/25/2019 2:14 PM EST documented in this encounter Discharge Instructions * Discharge Instructions* Kaylene Mike, RN - 08/25/2019 5:48 PM EST Upper GI Endoscopy: What to Expect at Home Your Recovery You will be able to go home after your doctor or nurse checks to make sure you are not having any problems. You may have to stay overnight if you had treatment during the test. You may have a sore throat fora day or two after the test. This care sheet gives you a general idea about what to expect after the test. How can you care for yourself at home? Activity Rest when you feel tired. ?? You can do your normal activities when it feels okay to do so. Diet ?? Follow your doctor's directions for eating. ?? Unless your doctor has told you not to, drink plenty of fluids. This helps to replace the fluidsthat were lost during the prep. ?? Do not drink alcohol. Medicines ?? Your doctor will tell you if and when you can restart your medicines. He or she will also give you instructions about taking any new medicines. ?? If you take blood thinners, such as warfarin (Coumadin), clopidogrel (Plavix), or aspirin, be sure to talk to your doctor. He or she will tell you if and when to start taking those medicines again. Make sure that you understand exactly what your doctor wants you to do. ?? If polyps were removed or a biopsy was done during the test, your doctor may tell you not to take aspirin or other anti-inflammatory medicines for a few days. These include ibuprofen (Advil, Motrin) and naproxen (Aleve). ?? If you have a sore throat the day after the procedure, use an gyyc-kbp-sakliag spray to numb your throat. Sucking on throat lozenges and gargling with warm salt water may also help relieve your symptoms. Other instructions ?? For your safety, do not drive or operate machinery until the medicine wears off and you can think clearly. Your doctor may tell you not to drive or operate machinery until the day after your test. ?? Do not sign legal documents or make major decisions until the medicine wears off and you can think clearly. The anesthesia can make it hard for you to fully understand what you are agreeing to. Additional Information for Sedation Patients For patients who received sedation: ?? You may have received medications before and/or during your procedure which effects your judgement and reaction time. ?? Do not drive, operate machinery, drink alcoholic beverages or make important decisions for 24 hours. ?? Be careful on stairs as you may be unsteady on your feet. ?? You may eat a regular diet as tolerated. ?? Do not smoke if you are alone. ?? IV site: Slight redness or tenderness is normal, you can use a warm compress if you would like. If tenderness and/or redness increase or if foul drainage occurs, please contact your Doctor. Please call [phone] before 8pm Mon-Fri with problems, questions or concerns. If you call after 8pm or on weekends, call the Hospital at [phone] and ask to speak to the Job Estimator electronics installer and the cylinder machine operator will contact that person for you. When should you call for help? Call [phone] anytime you think you may need emergency care. For example, call if: ?? You passed out (lost consciousness). ?? You pass maroon or bloody stools. ?? You have trouble breathing. Call your doctor now or seek immediate medical care if: ?? You have pain that does not get better after you take pain medicine. ?? You are sick to your stomach or cannot drink fluids. ?? You have new or worse belly pain. ?? You have blood in your stools. ?? You have a fever. ?? You cannot pass stools or gas. Watch closely for changes in your health, and be sure to contact your doctor if you have any problems. Where can you learn more? [facility] View your After Visit Summary and more online at [email or web address] If you would like to provide feedback about your hospital experience, please call the Office of Patient and Family Relations at . If you have received this After Visit Summary in error, please immediately return it in person to the department, or notify the [facility] Privacy Office by calling toll free at between the hours of 8AM and 5PM to arrange for our retrieval of the documents at no cost to you. Content Version: 12.2 ?? 4312-5530 [employer]. Care instructions adapted under license by [facility]. If you have questions about a medical condition or this instruction, always ask your healthcare professional. [employer] disclaims any warranty or liability for your use of this information.Endoscopic Ultrasound (Oral): What to Expect At Home Your Recovery After you have an endoscopic ultrasound--a test to look for problems in the stomach, liver, gallbladder, and other organs--you will stay at the hospital or clinic for 1 to 2 hours. This will allow the medicine to wear off. You will be able to go home after your doctor or nurse checks to make sure you are not having any problems. You may have a sore throat for a day or two after the test. This care sheet gives you a general idea about what to expect after the test. How can you care for yourself at home? Activity Rest when you feel tired. ?? You can do your normal activities when it feels okay to do so. Diet ?? Follow your doctor's directions for eating. ?? Unless your doctor has told you not to, drink plenty of fluids. This helps to replace the fluidsthat were lost during the colon prep. ?? Do not drink alcohol. Medicines ?? Your doctor will tell you if and when you can restart your medicines. He or she will also give you instructions about taking any new medicines. ?? If you take blood thinners, such as warfarin (Coumadin), clopidogrel (Plavix), or aspirin, be sure to talk to your doctor. He or she will tell you if and when to start taking those medicines again. Make sure that you understand exactly what your doctor wants you to do. ?? If a biopsy was done during the test, your doctor may tell you not to take aspirin or other anti-inflammatory medicines for a few days. These include ibuprofen (Advil, Motrin) and naproxen (Aleve). ?? If you have a sore throat the day after the procedure, use an mzok-ijn-lgbpfex spray to numb your throat. Sucking on throat lozenges and gargling with warm salt water may also help relieve your symptoms. Other instructions ?? For your safety, do not drive or operate machinery until the medicine wears off and you can think clearly. Your doctor may tell you not to drive or operate machinery until the day after your test. ?? Do not sign legal documents or make major decisions until the medicine wears off and you can think clearly. The anesthesia can make it hard for you to fully understand what you are agreeing to. Additional Information for Sedation Patients For patients who received sedation: ?? You may have received medications before and/or during your procedure which effects your judgement and reaction time. ?? Do not drive, operate machinery, drink alcoholic beverages or make important decisions for 24 hours. ?? Be careful on stairs as you may be unsteady on your feet. ?? You may eat a regular diet as tolerated. ?? Do not smoke if you are alone. ?? IV site: Slight redness or tenderness is normal, you can use a warm compress if you would like. If tenderness and/or redness increase or if foul drainage occurs, please contact your Doctor. Please call [phone] before 8pm Mon-Fri with problems, questions or concerns. If you call after 8pm or on weekends, call the Hospital at [phone] and ask to speak to the Job Estimator electronics installer and the cylinder machine operator will contact that person for you. When should you call for help? Call [phone] anytime you think you may need emergency care. For example, call if: ?? You passed out (lost consciousness). ?? You pass maroon or bloody stools. ?? You have trouble breathing. Call your doctor now or seek immediate medical care if: ?? You have pain that does not get better after you take pain medicine. ?? You are sick to your stomach or cannot drink fluids. ?? You have new or worse belly pain. ?? You have blood in your stools. ?? You have a fever. ?? You cannot pass stools or gas. Watch closely for changes in your health, and be sure to contact your doctor if you have any problems. Where can you learn more? [facility] View your After Visit Summary and more online at [email or web address] If you would like to provide feedback about your hospital experience, please call the Office of Patient and Family Relations at . If you have received this After Visit Summary in error, please immediately return it in person to the department, or notify the [facility] Privacy Office by calling toll free at between the hours of 8AM and 5PM to arrange for our retrieval of the documents at no cost to you. Content Version: 12.2 ?? [id number] [employer]. Care instructions adapted under license by [facility]. If you have questions about a medical condition or this instruction, always ask your healthcare professional. [employer] disclaims any warranty or liability for your use of this information. documented in this encounter Medications at Time [...] Tablet 04/06/2019 documented as of this encounter H&P Notes * Graciela Enamorado MD - 08/25/2019 4:21 PM EST Patient Name: Christie Gardiner Patient Age: 64 y.o. Birthdate: 1955 Admit date: 08/25/2019 Attending Physician: Connor Clinton MD Gastroenterology and Hepatology Pre-Procedure History and Physical Exam Procedure: EUS: Indication: evaluation of the gallbladder and pancreas, possible IgG4 disease There is no problem list on file for this patient. EXAM: HEENT: Airway examined, oropharynx clear Mallampati Score: III (soft palate, base of uvula visible) LUNGS: Clear to auscultation HEART: Regular rate and rhythm, normal S1, S2 ABDOMEN: Normal bowel sounds, soft, non tender, non distended, A/P Proceed with the planned endoscopic procedure. ASA 3 - Patient with moderate systemic disease with functional limitations Sedation Plan: anesthesia Risks and benefits of the procedure explained to the patient. Consent signed. Graciela Enamorado MD Advanced Endoscopy Fellow Gastroenterology documented in this encounter Plan of Treatment Not on file documented as of this encounter Procedures Procedure Name Priority Date/Time Associated Diagnosis Comments SURGICAL PATHOLOGY REPORT Routine 08/25/2019 4:57 PM EST SPECIMEN TO PATHOLOGY Routine 08/25/2019 4:57 PM EST UPPER GI ENDOSCOPY Routine 08/25/2019 4: 26 PM EST Upper Gi Endoscopy, Biopsy ([id number]) 08/25/2019 4:23 PM EST Screening Endoscopic Us Exam, Esoph ([id number]) 08/25/2019 4:23 PM EST Screening UPPER EUS-ENDOSCOPIC ULTRASOUND Routine 08/25/2019 4:05 PM EST documented in this encounter Results * Surgical Pathology Report (08/25/2019 4:57 PM EST) Final Diagnosis -[id number] ? Location: 4T; EA06; A The signing pathologist has (i) examined the relevant preparation(s) for the specimen(s) and (ii) rendered or confirmed the diagnosis(es). . ?Surgical Pathology DIAGNOSIS Stomach, ??biopsy: - ??Antrum-type mucosa with mild reactive gastropathy. - ??Body/fundic-typ e mucosa, negative for diagnostic abnormality. - No microorganisms consistent with Helicobacter species are identified on the H&E stain. Electronically signed by: ??Jesus Llanes MD Verified: ??08/28/2019 ?Pathologist Performed at: ??-[facility] Dept. of Pathology, [place], [place] CLINICAL INFORMATION Specimen Submitted: A - Gastric bx Clinical History and Diagnosis: Gastritis and abdominal pain SPECIMEN PROCESSING A - Labeled/Fixative: Gastric biopsy rule out H. pylori, formalin. Quantity/Size: Two, 0.3 cm. Tissue Description: Soft, muir-pink tissues. Sections/Processi ng: Submitted en toto ??in 1 cassette labeled A1. ??PPS 08/28/2019 2:[address] [facility] GI Biopsy 08/25/2019 4:57 PM EST 08/25/2019 4:57 PM EST Connor Clinton MD PATHOLOGY/CYTOLOGY ORDERABLES [facility] [place] [address] * Specimen to Pathology (08/25/2019 4:57 PM EST) AP Specimen 08/25/2019 4:57 PM EST 08/25/2019 4:[address] [facility] - 08/25/2019 4:57 PM EST Specimen requisition ordered. ??Separate Pathology report to follow Connor Clinton MD PATHOLOGY/CYTOLOGY ORDERABLES Performing Organization Address [facility]/ZIP Co de Phone Number [facility] [place] [address] * UPPER GI ENDOSCOPY (08/25/2019 4:26 PM EST) Pathologist [facility] UPPER GI ENDOSCOPY [facility] Procedure Date: 08/25/2019 4:26 PM ? Patient Name: Christie Gardiner ? [facility]: [id number] ? Date of : 1955 ? Age: 64 ? Order #: [id number] ? Instrument Name: [id number] ? Procedure: ? Upper GI endoscopy Indications: ? Evaluate for autoimmune pancreatitis Providers: ? Connor Clinton MD, [facility] ? Fanny Enamorado, TONEY, ? Monica Dejesus, [employer] Welding Machine Operator Referring MD: ?Souleymane Muller MD Medicines: ? Monitored Anesthesia Care Complications: ? No immediate complications. Procedure: ? Pre-Anesthesia Assessment: ? - Prior to the procedure, a History ? and Physical was performed, and ? patient medications and allergies ? were reviewed. The patient is ? competent. The risks and benefits of ? the procedure and the sedation ? options and risks were discussed with ? the patient. All questions were ? answered and informed consent was ? obtained. Patient identification and ? proposed procedure were verified in ? the pre-procedure area. Mental Status ? Examination: alert and oriented. ? Respiratory Examination: clear to ? auscultation. CV Examination: normal. ? Prophylactic Antibiotics: The patient ? does not require prophylactic ? antibiotics. Prior Anticoagulants: ? The patient has taken no previous ? anticoagulant or antiplatelet agents. ? ASA Grade Assessment: III - A patient ? with severe systemic disease. After ? reviewing the risks and benefits, the ? patient was deemed in satisfactory ? condition to undergo the procedure. ? The anesthesia plan was to use ? monitored anesthesia care (MAC). ? Immediately prior to administration ? of medications, the patient was ? re-assessed for adequacy to receive ? sedatives. The heart rate, ? respiratory rate, oxygen saturations, ? blood pressure, adequacy of pulmonary ? ventilation, and response to care ? were monitored throughout the ? procedure. The physical status of the ? patient was re-assessed after the ? procedure. ? The procedure, indications, benefits, ? risks and alternatives were explained ? to the patient. Specifically ? discussed were potential ? complications including, but not ? limited to, bleeding, perforation, ? infection, missing a cancer, and ? adverse medication reactions. The ? Endoscope was introduced through the ? mouth, and advanced to the third part ? of duodenum. The patient tolerated ? the procedure well. The upper GI ? endoscopy was accomplished without ? difficulty. The patient tolerated the ? procedure well. ? Findings: ? The esophagus was normal until the distal esophagus ? where there was LA Class A esophagitis distally just ? at the GE junction. ? The stomach was normal with the exception of a small ? - 5 mm- clean-based ulcer along the lesser curvature. ? Multiple biopsies were taken with a cold forceps for ? histology, ? The duodenum was normal. ? Moderate Sedation: ? Not applicable - See Anesthesia documentation Impression: ?- Gastric ulcer - otherwise normal ? exam Recommendation: ?- Await pathology results ? Procedure Code(s): ?? --- Professional --- ? 30059, Esophagogastroduod enoscopy, ? flexible, transoral; diagnostic, ? including collection of specimen(s) ? by brushing or washing, when ? performed (separate procedure) ? --- Technical --- ? 12564, Esophagogastroduod enoscopy, ? flexible, transoral; diagnostic, ? including collection of specimen(s) ? by brushing or washing, when ? performed (separate procedure) CPT copyright 2017 [employer]. All rights reserved. The codes documented in this report are preliminary and upon senior regulatory affairs specialist review may be revised to meet current compliance requirements. Attending Participation: ? I personally performed the entire procedure. ? ___ Connor Clinton MD 08/25/2019 5:08:04 PM This report has been signed electronically. Number of Addenda: 0 Note Initiated On: 08/25/2019 4:26 PM [employer] 08/25/2019 4:26 PM EST Souleymane Muller MD GENERAL SURGICAL ORD ERABLES [employer] * UPPER EUS-ENDOSCOPIC ULTRASOUND (08/25/2019 4:05 PM EST) UPPER ENDOSCOPIC ULTRASOUND [facility] Procedure Date: 08/25/2019 4:05 PM ? Patient Name: Christie Gardiner ? N: [id number] ? Date of : 1955 ? Age: 64 ? Order #: [id number] ? Instrument Name: [id number] ? Procedure: ? Upper EUS Indications: ? Rule out AIP Providers: ? Connor [facility] MD, [facility]. ? Fanny Enamorado RN, ? Monica Dejesus, Elect[employer]lag Welding Machine Operator Referring MD: ?Souleymane Muller MD Medicines: ? Monitored Anesthesia Care Complications: ? No immediate complications. Procedure: ? Pre-Anesthesia Assessment: ? - Prior to the procedure, a History ? and Physical was performed, and ? patient medications and allergies ? were reviewed. The patient is ? competent. The risks and benefits of ? the procedure and the sedation ? options and risks were discussed with ? the patient. All questions were ? answered and informed consent was ? obtained. Patient identification and ? proposed procedure were verified by ? the physician in the pre-procedure ? area. Mental Status Examination: ? alert and oriented. Airway ? Examination: normal oropharyngeal ? airway and neck mobility. Respiratory ? Examination: clear to auscultation. ? CV Examination: normal. Prophylactic ? Antibiotics: The patient does not ? require prophylactic antibiotics. ? Prior Anticoagulants: The patient has ? taken no previous anticoagulant or ? antiplatelet agents. ASA Grade ? Assessment: III - A patient with ? severe systemic disease. After ? reviewing the risks and benefits, the ? patient was deemed in satisfactory ? condition to undergo the procedure. ? The anesthesia plan was to use ? monitored anesthesia care (MAC). ? Immediately prior to administration ? of medications, the patient was ? re-assessed for adequacy to receive ? sedatives. The heart rate, ? respiratory rate, oxygen saturations, ? blood pressure, adequacy of pulmonary ? ventilation, and response to care ? were monitored throughout the ? procedure. The physical status of the ? patient was re-assessed after the ? procedure. ? The procedure, indications, benefits, ? risks and alternatives were explained ? to the patient. Specifically ? discussed were potential ? complications including, but not ? limited to, bleeding, perforation, ? infection, missing a cancer, and ? adverse medication reactions.The ? Endosonoscope was introduced through ? the mouth, and advanced to the third ? part of duodenum. The upper EUS was ? accomplished without difficulty. The ? patient tolerated the procedure well. ? Findings: ? Endosonographic Findings: : ? There was no sign of significant endosonographic ? abnormality in the esophagus, stomach, duodenum or ? celiac axis. ? There was no sign of significant endosonographic ? abnormality in the ampulla. Specifically the CBD and ? PD tapered normally to the ampulla. ? There was no sign of significant endosonographic ? abnormality in the common bile duct. The maximum ? diameter of the duct was 3 mm. The wall was not ? thickened and I could not visualize the gallbladder. ? There was no sign of significant endosonographic ? abnormality in the left lobe of the liver. ? There was no sign of significant endosonographic ? abnormality in the pancreatic head, body and tail. ? Specially there was no evidence of inflammatory ? changes consistent with autoimmune pancreatitis ? No lymphadenopathy seen. ? Moderate Sedation: ? Not applicable - See Anesthesia documentation Impression: ?- No EUS evidence of AIP Recommendation: ?- Await pathology results from ? endoscopy ? - Follow-up with Dr. Malloy as ? scheduled ? Procedure Code(s): ?? --- Professional --- ? 40638, Esophagogastroduod enoscopy, ? flexible, transoral; with endoscopic ? ultrasound examination, including the ? esophagus, stomach, and either the ? duodenum or a surgically altered ? stomach where the jejunum is examined ? distal to the anastomosis ? --- Technical --- ? 94084, Esophagogastroduod enoscopy, ? flexible, transoral; with endoscopic ? ultrasound examination, including the ? esophagus, stomach, and either the ? duodenum or a surgically altered ? stomach where the jejunum is examined ? distal to the anastomosis CPT copyright 2017 [employer]. All rights reserved. The codes documented in this report are preliminary and upon senior regulatory affairs specialist review may be revised to meet current compliance requirements. Attending Participation: ? I was present and participated during the entire ? procedure, including non-mariscal portions. ? ___ Connor Clinton MD 08/25/2019 5:13:11 PM This report has been signed electronically. Number of Addenda: 0 Note Initiated On: 08/25/2019 4:05 PM [employer] 08/25/2019 4:05 PM EST Souleymane Muller MD GENERAL SURGICAL ORD ERABLES [employer] documented in this encounter Visit Diagnoses Not on filedocumented in this encounter Administered Medications Inactive Administered Medications - up to 3 most recent administrations Medication Order MAR Action Action Date Dose Rate Site lactated ringers infusion 100 mL/hr, Intravenous, CONTINUOUS, Starting on Sat08/25/19 at 1430, Until Sat08/25/19 at 1749, Endoscopy (Intra-Procedure) New Bag 08/25/2019 2:23 PM EST 100 mL/hr 100 mL/hr documented in this encounter Active and Recently Administered Medications Times are shown in EST. Continuous Medication Order 08/23/2019 08/24/2019 08/25/2019 lactated ringers infusion (CANCELED) 100 mL/hr, Intravenous, CONTINUOUS, Starting on Sat08/25/19 at 1430, Until Sat08/25/19 at 1749, Endoscopy (Intra-Procedure) 1423 (New Bag - Prov ider: Aracelis Beard, TONEY) documented in this encounter Care Teams Engine Testing Supervisor Relationship Specialty Start Date End Date Roxi Ramirez MD [address] [place] [address] PCP - General Family Medicine 08/25/19 05/01/20 documented as of this encounter
--- OUTSIDE RECORDS SUMMARY | 2024-07-06 18:59 | XMS_ITS | Encounter Summary ---
Author Organization [facility] [place] [address] Care Team Providers Care Filling Technician Name Role Phone Souleymane Muller MD Primary Care Provider [phone] Encounter Details Date Type Department Care Team (Late st Contact Info) Description 06/05/2019 [place] [address] Morris Donovan, [facility] [place] [address] Social History Tobacco Use Types Packs/Day Years Used Date Smoking Tobacco: Never Assessed Sex and Gender Information Value Date Recorded Sex Assigned at Not on file Gender Identity Not on file Sexual Orientation Not on file documented as of this encounter H&P Notes * Morris Donovan - 06/05/2019 10:44 AM EST Images from the original note were not included. INTERVENTIONAL RADIOLOGY FOCUSED H&P and PRE-PROCEDURE NOTE: PCP: Souleymane Muller MD Referring Provider: Tequila Jang MD Planned Procedure: CT-Guided Gallbladder Wall Biopsy Procedure Indication: Chronic and progressive gallbladder wall thickening. Concern for chonic cholecystitis, adenomyomatosis, or malignancy. Presenting Diagnosis/ Complaint: Christie Gardiner is a 64 y.o. female with a past medical history significant for severe disability from neuropsychiatric disease (Schizophrenia) and cognitive dysfunction, ongoing dysphagia status post gastrostomy catheter placement, HTN, and Hypothyroidism who has had ongoing, intermittent abdominal pain for which CT and US examinations have been performed. Over time, her pain appears to be right upper quadrant predominate and associated with food. The gallbladder was unable to be seen on US; however, on CT there was progressive gallbladder wall thickening with cholelithiasis. The possibility of chronic cholecystitis versus gallbladder malignancy was raised. IRis consulted for percutaneous gallbladder wall biopsy to help guide surgical options. Past Medical/Surgical History: As above. Medications: As in scanned documents. Allergies: Patient has no allergy information on record. Allergies not listed in scanned documents;will need to be reviewed. Social History and Habits: Social History Socioeconomic History ??? Marital status: Single Spouse name: Not on file ??? Number of children: Not on file ??? Years of education: Not on file ??? Highest education level: Not on file Occupational History ??? Not on file Social Needs ??? Financial resource strain: Not on file ??? Food insecurity: Worry: Not on file Inability: Not on file ??? Transportation needs: Medical: Not on file Non-medical: Not on file Tobacco Use ??? Smoking status: Not on file Substance and Sexual Activity ??? Alcohol use: Not on file ??? Drug use: Not on file ??? Sexual activity: Not on file Lifestyle ??? Physical activity: Days per week: Not on file Minutes per session: Not on file ??? Stress: Not on file Relationships ??? Social connections: Talks on phone: Not on file Gets together: Not on file Attends mormon service: Not on file Active member of club or organization: Not on file Attends meetings of clubs or organizations: Not on file Relationship status: Not on file ??? Intimate partner violence: Fear of current or ex partner: Not on file Emotionally abused: Not on file Physically abused: Not on file Forced sexual activity: Not on file Other Topics Concern ??? Not on file Social History Narrative ??? Not on file Significant Family History: No family history on file. Pertinent ROS: as per HPI Labs: Outside Laboratories - 03/31/19 ?? Creatinine - 0.74, estimated GFR >60. ?? WBC - 7.56 ?? HGB - 12.3 ?? HCT - 40.2 ?? PLT - 300 ?? No recent PT/INR. Imaging: CT of the Abdomen and Pelvis - 02/13/19 Physical Exam: Pending (to be performed in angio the day of procedure) ASA: Pending (to be assessed in angio the day of procedure) Mallampati Class: Pending (to be assessed in angio the day of procedure) Assessment: 64 y.o. female with a past medical history significant for severe disability from neuropsychiatric disease (Schizophrenia) and cognitive dysfunction, ongoing dysphagia status post gastrostomy catheter placement, HTN, and Hypothyroidism who has had ongoing, intermittent abdominal pain for which CT and US examinations have been performed. Over time, her pain appears to be right upper quadrant predominate and associated with food. The gallbladder was unable to be seen on US; however, on CT there was progressive gallbladder wall thickening with cholelithiasis. The possibility of chronic cholecystitis versus gallbladder malignancy was raised. IR is consulted for percutaneous gallbladder wall biopsy to help guide surgical options. There appears to be abnormality involving the adjacent hepatic parenchyma; biopsy target would be this region. Plan: Biopsy/drain access site: Breanna-cholecystic Hepatic Abnormality / Gallbladder Wall (Right Upper Quadrant) IV Contrast Required: Possibly Patient Position: Supine. Cytopathology presence needed: No. General anesthesia required: No. Medications to discontinue (and days): None. Labs: Per protocol Other Pertinent Information: Allergies are not updated or in scanned documents; will need to be reviewed. Case reviewed with Dr. Pinzon and Dr. Reed. 06/05/2019 documented in this encounter Plan of Treatment Not on file documented as of this encounter Visit Diagnoses Not on filedocumented in this encounter Care Teams Filling Technician Relationship Specialty Start Date End Date Souleymane Muller MD [address] [place] [address] PCP - General General Internal Medicine 06/02/1908/23 documented as of this encounter
--- OUTSIDE RECORDS SUMMARY | 2024-07-06 18:59 | XMS_ITS | Encounter Summary ---
Author Organization [facility] Address [facility] [place] [address] Care Team Providers Care Customer Service Consultant Name Role Phone Roxi Ramirez MD Primary Care Provider [phone] Encounter Details Date Type Department Care Team (Late st Contact Info) Description 08/25/2019 3:00 PM EST - 08/25/2019 4:30 PM EST [place] [address] Connor Clinton MD [facility] [place] [address] UPPER EUS- ENDOSCOPIC ULTRASOUND (WRVU 3.47) Social History Tobacco Use Types Packs/Day Years [...] Sign Reading Time Taken Comments Blood Pressure 144/99 08/25/2019 2:14 PM EST Pulse 98 08/25/2019 2:14 PM EST Temperature 36.9 ??C (98.4 ??F) 08/25/2019 2:14 PM ES T Respiratory Rate - - Oxygen Saturation 98% 08/25/2019 2:14 PM EST Inhaled Oxygen Concentration - - [...] the day after the procedure, use an crtm-ksg-fmpyoby spray to numb your throat. Sucking on [...] occurs, please contact your Doctor. Please call [phone] before 8pm Mon-Fri with problems, questions or concerns. If you call after 8pm or on weekends, call the Hospital at [phone] and ask to speak to the Concession Supervisor authorization rep and the weatherstrip machine operator will contact that person for you. When should you call for help? Call [phone] anytime you think you may need emergency [...] any problems. Where can you learn more? [facility] View your After Visit Summary and more online at [email or web address] If you would like to provide feedback about your hospital experience, please call the Office of Patient and Family Relations at . If you have received this After Visit Summary in error, please immediately return it in person to the department, or notify the [facility] Privacy Office by calling toll free at between the hours of 8AM and 5PM to arrange for our retrieval of the documents at no cost to you. Content Version: 12.2 ?? 5907-2258 [employer]. Care instructions adapted under license by [facility]. If you have questions about a medical condition or this instruction, always ask your healthcare professional. [employer] disclaims any warranty or liability for your [...] the day after the procedure, use an firg-jgt-qmionvt spray to numb your throat. Sucking on [...] occurs, please contact your Doctor. Please call [phone] before 8pm Mon-Fri with problems, questions or concerns. If you call after 8pm or on weekends, call the Hospital at [phone] and ask to speak to the Concession Supervisor authorization rep and the weatherstrip machine operator will contact that person for you. When should you call for help? Call [phone] anytime you think you may need emergency [...] any problems. Where can you learn more? [facility] View your After Visit Summary and more online at [email or web address] If you would like to provide [...] cost to you. Content Version: 12.2 ?? 2488-2507 [employer]. Care instructions adapted under license by [facility]. If you have questions about a medical condition or this instruction, always ask your healthcare professional. [employer] disclaims any warranty or liability for your [...] 26 PM EST Upper Gi Endoscopy, Biopsy ([id number]) 08/25/2019 4:23 PM EST Screening Endoscopic Us Exam, Esoph ([id number]) 08/25/2019 4:23 PM EST Screening UPPER EUS-ENDOSCOPIC ULTRASOUND Routine 08/25/2019 4:05 PM EST documented in this encounter Results * Surgical Pathology Report (08/25/2019 4:57 PM EST) Final Diagnosis -[id number] ? Location: 4T; EA06; A The signing [...] Llanes MD Verified: ??08/28/2019 ?Pathologist Performed at: ??[facility], [place], [place] CLINICAL INFORMATION Specimen Submitted: A - Gastric bx Clinical History and Diagnosis: Gastritis and abdominal pain SPECIMEN PROCESSING A - Labeled/Fixative: Gastric biopsy rule out H. pylori, formalin. Quantity/Size: Two, 0.3 cm. Tissue Description: Soft, muir-pink tissues. Sections/Processi ng: Submitted en toto ??in 1 cassette labeled A1. ??PPS 08/28/2019 2:16 PM EST [facility] GI Biopsy 08/25/2019 4:57 PM EST 08/25/2019 4:57 PM EST Connor Clinton MD PATHOLOGY/CYTOLOGY ORDERABLES [facility] [place] [address] * Specimen to Pathology (08/25/2019 4:57 PM EST) AP Specimen 08/25/2019 4:57 PM EST 08/25/2019 4:57 PM EST Narrative [facility] - 08/25/2019 4:57 PM EST Specimen requisition ordered. ??Separate Pathology report to follow Connor Clinton MD PATHOLOGY/CYTOLOGY ORDERABLES Performing Organization Address [facility]/ZIP Co de Phone Number [facility] [place] [address] * UPPER GI ENDOSCOPY (08/25/2019 4:26 PM EST) Pathologist [facility] UPPER GI ENDOSCOPY [facility] Procedure Date: 08/25/2019 4:26 PM ? Patient Name: Christie Gardiner ? [facility]: [id number] ? Date of : 1955 ? Age: 64 ? Order #: [id number] ? Instrument Name: [id number] ? Procedure: ? Upper GI endoscopy Indications: ? Evaluate for autoimmune pancreatitis Providers: ? Connor Clinton MD, [facility]. ? Fanny Enamorado, TONEY, ? Monica Dejesus, Physician Obstetrician Referring MD: ?Souleymane Muller MD Medicines: ? [...] Procedure Code(s): ?? --- Professional --- ? 55896, Esophagogastroduod enoscopy, ? flexible, transoral; diagnostic, ? including collection of specimen(s) ? by brushing or washing, when ? performed (separate procedure) ? --- Technical --- ? 65862, Esophagogastroduod enoscopy, ? flexible, transoral; diagnostic, ? including collection of specimen(s) ? by brushing or washing, when ? performed (separate procedure) CPT copyright 2017 [employer]. All rights reserved. The codes documented in this report are preliminary and upon soda column operator review may be revised to meet current [...] (08/25/2019 4:05 PM EST) UPPER ENDOSCOPIC ULTRASOUND [facility] Procedure Date: 08/25/2019 4:05 PM ? Patient Name: Christie Gardiner ? N: [id number] ? Date of : 1955 ? Age: 64 ? Order #: [id number] ? Instrument Name: [id number] ? Procedure: ? Upper EUS Indications: ? Rule out AIP Providers: ? Connor Clinton MD, [facility]. ? Fanny Enamorado RN, ? Monica Dejesus, Physician Obstetrician Referring MD: ?Souleymane Muller MD Medicines: ? [...] Procedure Code(s): ?? --- Professional --- ? 74970, Esophagogastroduod enoscopy, ? flexible, transoral; with endoscopic ? ultrasound examination, including the ? esophagus, stomach, and either the ? duodenum or a surgically altered ? stomach where the jejunum is examined ? distal to the anastomosis ? --- Technical --- ? 61202, Esophagogastroduod enoscopy, ? flexible, transoral; with endoscopic ? ultrasound examination, including the ? esophagus, stomach, and either the ? duodenum or a surgically altered ? stomach where the jejunum is examined ? distal to the anastomosis CPT copyright 2017 [employer]. All rights reserved. The codes documented in this report are preliminary and upon soda column operator review may be revised to meet current [...] TONEY) documented in this encounter Care Teams Customer Service Consultant Relationship Specialty Start Date End Date Roxi Ramirez MD [address] [place] [address] PCP - General Family Medicine 08/25/19 05/01/20 documented as of this encounter
--- OUTSIDE RECORDS SUMMARY | 2024-07-06 18:59 | XMS_ITS | Encounter Summary ---
Author Organization [facility] Address [facility] [place] [address] Care Team Providers Care Rasper Machine Operator Name Role Phone Souleymane Muller MD Primary Care Provider [phone] Encounter Details Date Type Department Care Team (Late st Contact Info) Description 07/30/2019 Orders [place] [address] Remington Ochoa MD [facility] [place] [address] IgG4 deficiency; IgG4-related sclerosing disease Social History Tobacco Use Types Packs/Day Years [...] as of this encounter Visit Diagnoses 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
--- OUTSIDE RECORDS SUMMARY | 2024-07-06 18:59 | XMS_ITS | Encounter Summary ---
Author Organization [facility] [place] [address] Care Team Providers Care Private Banker Name Role Phone Unavailable Primary Care Provider Unavailabl e Encounter Details Date Type Department Care Team (Late st Contact Info) Description 05/15/2019 Ancillary Procedure Radiology Library at [facility] [address] [place] [address] Souleymane Muller MD [address] [place] [address] Social History Tobacco Use Types Packs/Day Years [...] FILM LIBRARY STORAGE ONLY ULTRASOUND STUDY Routine 05/15/2019 12:00 AM EST documented in this encounter Results * Film Library- Storage Only Ultrasound Study (05/15/2019 12:00 AM EST) Narrative RAD - 06/04/2019 4:51 AM EST This exam is auto-finalizing. It's purpose is for storage only. Souleymane Muller MD IMG FILM LIBRARY ORD [facility]LES [facility] [place] documented in this encounter Visit Diagnoses Not on filedocumented in this encounter
--- OUTSIDE RECORDS SUMMARY | 2024-07-06 18:59 | XMS_ITS | Encounter Summary ---
Author Organization [facility] [place] [address] Care Team Providers Care Navigation Teacher Name Role Phone Roxi Ramirez MD Primary Care Provider Encounter Details Date Type Department Care Team (Late st Contact Info) Description 01/16/2020 12:05 AM EDT Ancillary Procedure Radiology Library at [facility] [place] [id number] Roxi Ramirez MD [address] [place] [address] Social History Tobacco Use Types Packs/Day Years [...] Diagnosis Comments FILM LIBRARY STORAGE ONLY DX CHEST Routine 01/16/2020 12:05 AM EDT documented in this encounter Results * Film Library- Storage Only DX Chest (01/16/2020 12:05 AM EDT) Narrative RAD - 01/18/2020 12:03 PM EDT This exam is auto-finalizing. It's purpose is for storage only. Roxi Ramirez MD IMG FILM LIBRARY ORD ERABLES [facility] [place], [place] documented in this encounter Visit Diagnoses Not on filedocumented in this encounter Care Teams Navigation Teacher Relationship Specialty Start Date End Date Roxi Ramirez MD [address] [place] [address] PCP - General Family Medicine 08/25/19 05/01/20 documented as of this encounter
--- OUTSIDE RECORDS SUMMARY | 2024-07-06 18:59 | XMS_ITS | Encounter Summary ---
[place] [address] Care Team Providers Care Business Services Director Name Role Phone Roxi Ramirez MD Primary Care Provider [phone] Encounter Details Date Type Department Care Team (Late st Contact Info) Description 11/05/2019 Tele[place] [phone] Gisella Hinojosa Social History Tobacco Use Types [...] * Telephone Encounter - Gisella Hinojosa - 11/05/2019 1:23 PM EDT LVM per isa from Dr. Ochoa. Patient needs a non urgent telehealth f/u documented in this encounter Plan of Treatment Not on file documented as of this encounter Visit Diagnoses Not on filedocumented in this encounter Care Teams Business Services Director Relationship Specialty Start Date End Date Roxi Ramirez MD [address] [place] [address] PCP - General Family Medicine 08/25/19 05/01/20 documented as of this encounter
--- OUTSIDE RECORDS SUMMARY | 2024-07-06 18:59 | XMS_ITS | Encounter Summary ---
Author Organization [facility] Address [facility] [place] [address] Care Team Providers Care Container Finishing Inspector Name Role Phone Unavailable Primary Care Provider Unavailabl e Encounter Details Date Type Department Care Team (Late st Contact Info) Description 07/11/2018 Telephone [place] [phone] Eloise Kendrick MD [facility] [place] [address] Social History Tobacco Use Types Packs/Day Years Used Date Smoking Tobacco: Never Assessed Sex and Gender Information Value Date Recorded Sex Assigned at Not on file Gender Identity Not on file Sexual Orientation Not on file documented as of this encounter Miscellaneous Notes * Telephone Encounter - Eloise Kendrick - 07/11/2018 11:15 AM EST TRANSFER CENTER CALL: Received a call from Dr. Sigala at [facility] about this patient, a 63-year-old woman with developmentaldelay, initially admitted for hypotension and KJ likely due to new initiation of diuretics, now with repeated episodes of difficulty swallowing. She doesn't feel like food is stuck, and she doesn't regurgitate food- just transient episodes of looking very ill, and complaining of difficulty swallowing (her cognitive delay makes obtaining a history a little bit difficult). According to her sister, she has a remote history of esophageal stricture s/p balloon dilation. Her symptoms have acutely worsened since admission. Labs unremarkable Chest xray unremarkable Barium swallow: retained barium in the mid-esophagus, no stricture noted Given her symptoms, history, and results of barium swallow, recommend EGD as next step in evaluation. May have a stricture, mass, or esophageal motility disorder. Offered to help arrange a vrdh-mbs-lwirg EGD for early next week. He will call [facility] to ask about GI/bed availability up there, and let usknow. These recommendations are limited by my inability to examine the patient or view the complete medical record. documented in this encounter Plan of Treatment Not on file documented as of this encounter Visit Diagnoses Not on filedocumented in this encounter
--- OUTSIDE RECORDS SUMMARY | 2024-07-06 18:59 | XMS_ITS | Encounter Summary ---
Author Organization [facility] [place] [address] Care Team Providers Care After School Program Director Name Role Phone Unavailable Primary Care Provider Unavailabl e Encounter Details Date Type Department Care Team (Late st Contact Info) Description 02/13/2019 Ancillary Procedure Radiology Library at [facility] [place] [address] Souleymane Muller MD [address] [place] [address] Social History Tobacco Use Types Packs/Day Years [...] Comments FILM LIBRARY STORAGE ONLY CT ABDOMEN AND PELVIS Routine 02/13/2019 12:00 AM EDT documented in this encounter Results * Film Library- Storage Only CT Abdomen & Pelvis (02/13/2019 12:00 AM EDT) Narrative RAD - 06/04/2019 4:51 AM EST This exam is auto-finalizing. It's purpose is for storage only. Souleymane Muller MD IMG FILM LIBRARY ORD ERABLES [place], [place] documented in this encounter Visit Diagnoses Not on filedocumented in this encounter
--- OUTSIDE RECORDS SUMMARY | 2024-07-06 18:59 | XMS_ITS | Encounter Summary ---
[place] [address] Care Team Providers Care Fork Lift Truck Operator Name Role Phone Souleymane Muller MD Primary Care Provider Encounter Details Date Type Department Care Team (Late st Contact Info) Description 07/16/2019 Telephone [place] [phone] Tish Gallo Social History Tobacco Use Types [...] on filedocumented in this encounter Care Teams Fork Lift Truck Operator Relationship Specialty Start Date End Date Souleymane Muller MD [address] [place] [address] PCP - General General Internal Medicine 06/02/1908/23 documented as of this encounter
--- OUTSIDE RECORDS SUMMARY | 2024-07-06 18:59 | XMS_ITS | Encounter Summary ---
Author Organization [facility] Address [facility] [place] [address] Care Team Providers Care Program Associate Name Role Phone Unavailable Primary Care Provider Unavailabl e Encounter Details Date Type Department Care Team (Late st Contact Info) Description 07/12/2018 Telephone [place] [phone] Annette Bryson MD [facility] [address] GASTRO[place] [address] Social History Tobacco Use Types Packs/Day Years Used Date Smoking Tobacco: Never Assessed Sex and Gender Information Value Date Recorded Sex Assigned at Not on file Gender Identity Not on file Sexual Orientation Not on file documented as of this encounter Miscellaneous Notes * Telephone Encounter - Annette Bryson - 07/12/2018 4:25 PM EST Transfer Center Call: I received a call from Dr. Barrera at [facility]. Briefly, this is 63 yo female with hx of developmental delay, hx of esophageal stricture who was admitted to [facility] with hypotension and KJ with concerns for aspiration PNA. Shock has resolved and sheis no longer on pressors. She has passed a swallow evaluation with TOBACCO DRYING MACHINE OPERATOR, but was noted by RN to havegurgling and difficulty swallowing. Barium swallow showed retained barium in the mid- esophagus. Sheis now s/p EGD with findings of schatzi ring, non-obstructing. She is on PPI BID. CT chest 07/07 didnot mention extrinsic compression. She is reportedly at her normal mental status. She is on a number of psychoactive. She is current on a modified diet per TOBACCO DRYING MACHINE OPERATOR, but Dr. Barrera is unclear if she was on this diet when she was gurgling on food. VS: 64 36.4 Normal BP Based on the information provided to me that has been outlined above, the general recommendations for this type of patient is HREM as an outpatient. In terms of inpatient care, recommend following upwith TOBACCO DRYING MACHINE OPERATOR on dietary recommendations. This is not an official consult, as my recommendations are limi monster by my inability to interview and examine the patient as well as personally review the medical record, imaging, and laboratory findings. Annette Bryson MD Gastroenterology PGY-4 07/12/2018 4:25 PM Pager #[phone] documented in this encounter Plan of Treatment Not on file documented as of this encounter Visit Diagnoses Not on filedocumented in this encounter
--- OUTSIDE RECORDS SUMMARY | 2024-07-06 18:59 | XMS_ITS | Encounter Summary ---
Author Organization [facility] [place] [address] Care Team Providers Care Ballroom Dancer Name Role Phone Unavailable Primary Care Provider Unavailabl e Encounter Details Date Type Department Care Team (Late st Contact Info) Description 08/14/2018 Ancillary Procedure Radiology Library at [facility] [place] [id number] Souleymane Muller MD [address] [place] [id number] Social History Tobacco Use Types Packs/Day Years [...] STORAGE ONLY CT ABDOMEN AND PELVIS Routine 08/14/2018 12:00 AM EST documented in this encounter Results * Film Library- Storage Only CT Abdomen & Pelvis (08/14/2018 12:00 AM EST) Narrative [facility] - 06/04/2019 7:30 AM EST This exam is auto-finalizing. It's purpose is for storage only. Souleymane Muller MD IMG FILM LIBRARY ORD ERABLES [place], [place] documented in this encounter Visit Diagnoses Not on filedocumented in this encounter
--- OUTSIDE RECORDS SUMMARY | 2024-07-06 18:59 | XMS_ITS | Encounter Summary ---
[place] [address] Care Team Providers Care Learning Designer Name Role Phone Roxi Ramirez MD Primary Care Provider [phone] Encounter Details Date Type Department Care Team (Late st Contact Info) Description 11/10/2019 Telephone [place] [phone] Gisella Hinojosa Social History Tobacco Use Types [...] on filedocumented in this encounter Care Teams Learning Designer Relationship Specialty Start Date End Date Roxi Ramirez MD [address] [place] [address] PCP - General Family Medicine 08/25/19 05/01/20 documented as of this encounter
--- OUTSIDE RECORDS SUMMARY | 2024-07-06 18:59 | XMS_ITS | Encounter Summary ---
[facility] [place] [address] Care Team Providers Care Purchasing And Claims Supervisor Name Role Phone Roxi Ramirez MD Primary Care Provider [phone] Encounter Details Date Type Department Care Team (Late st Contact Info) Description 12/09/2019 [place] [phone] Gisella Hinojosa Social History Tobacco Use Types [...] * Telephone Encounter - Gisella Hinojosa - 12/09/2019 8:40 AM EDT Call made to patient. 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 Called to schedule MRI and f/u with Dr. Ochoa prior to patient scheduling her appt with General Surgery. Netta let me know that the MRI order has been sent to [facility], closer to patient's home. Patient is [facility] and they have not allowed residents to leave the facility due to COVID. MRI has not been done yet but as soon as it can be scheduled they are going to have it done. documented in this encounter Plan of Treatment Not on file documented as of this encounter Visit Diagnoses Not on filedocumented in this encounter Care Teams Purchasing And Claims Supervisor Relationship Specialty Start Date End Date Roxi Ramirez MD [address] [facility] [address] [place] [address] PCP - General Family Medicine 08/25/19 05/01/20 documented as of this encounter
[2024-07-06 19:01] LABS: Bilirubin Negative (Negative); Blood Negative (Negative); Clarity Clear (Clear); Glucose Negative (Negative); Ketones Negative (Negative); Leukocyte Esterase Negative (Negative); Nitrite Negative (Negative); Specific Gravity 1.015 (1.005-1.025); Urobilinogen 0.2 mg/dL (Up to 0.2)
[2024-07-06 20:19] LABS: ALT 21 U/L (14-59); AST 16 U/L (15-37); Albumin 3.4 g/dL (3.4-5.0); Alkaline Phosphatase 104 U/L (46-116); Anion Gap 7.4 mmol/L (3-11); BUN 17 mg/dL (7-18); Bilirubin, Total 0.22 mg/dL (0.2-1.0); CO2 36.6 mmol/L (21.0-32.0); CREATININE 0.8 mg/dL (0.55-1.02); Calcium 9.1 mg/dL (8.5-10.1); Chloride 102 mmol/L (98-107); Estimated GFR 79.71 (mL/min/1.73m2); Glucose 105 mg/dL (74-106); Potassium 3.7 mmol/L (3.5-5.1); Sodium 146 mmol/L (136-145); Total Protein 7.2 g/dL (6.4-8.2)
[2024-07-06 20:21] LABS: TSH (W/Ref FT4) < 0.01 uIU/mL (0.36-3.74)
== END 2024-07-06 18:54 | disposition home or self-care (01) ==
LOC: LBN 18:53
PROVIDERS: PCP Family Medicine; Visit Provider Nurse Practitioner Gerontology
DX: N39.0 Urinary tract infection, site not specified (principal)
CPT/HCPCS: 80053; 81003; 84439; 84443; 85025; 87086

== ENCOUNTER 2024-08-17 00:43 | Inpatient (IN) | payer MEDICARE, MEDICAID, SELFPAY ==
[2024-08-17] VITALS (129 sets, daily range): BP systolic 105–185; BP diastolic 73–123; PULSE 56–127; RESP 17–43; TEMP 37–38.3; O2SAT 86–95
--- NOTE | 2024-08-17 00:30 | RT.EKG_ITS ---
APPROVED REPORT Exam: Resting ECG Reason for Exam: SOB of 45 Patient Location: E HR:114 bpm ECG Measurements Heart Rate 114 AXIS MT 142 P 51 QRSd 98 QRS 84 QT 329 T -5 QTc 443 Conclusion Sinus tachycardia...rate> 99 Atrial premature complexes in couplets...pair SV complexes w/ short R-R Low voltage, precordial leads...precordial leads <1.0mV I have reviewed and interpreted ECG and agree with software generated interpretation.
--- NOTE | 2024-08-17 00:45 | DI.RAD_ITS ---
Exam(s) XR PORTABLE CHEST AP EXAM: XR PORTABLE CHEST AP CLINICAL HISTORY: sob, cough, hypoxic TECHNIQUE: 2D digital imaging was performed. COMPARISON: CR,RF RF BARIUM SWALLOW from 10/22/2023 FINDINGS: The exam is limited by under penetration at the lung bases. LUNGS: Basilar infiltrates are not excluded. Question tiny pleural effusions. Pulmonary vascular pr ominence. HEART: Normal size. AORTA: Normal diameter. BONES: Unremarkable for age. Soft tissues: Unremarkable. IMPRESSION: Question of basilar infiltrates. Tiny pleural effusions. The findings could represent CHF. DATA REPOSITORY: RADIATION DOSE DELIVERED:
[2024-08-17 01:08] LABS: BE (Venous) 9 mmol/L (-2-3); HCO3 (Venous) 34 mmol/L (23-28); Lactate 0.9 mmol/L (<or=2.0); O2 Sat (Venous) 92 %; TCO2 (Venous) 31 mmol/L (24-29); pCO2 (Venous) 53 mmHg (41-51); pH (Venous) 7.41 (7.31-7.41); pO2 (Venous) 61 mmHg
[2024-08-17 01:09] LABS: Abs Immature Grans 0.06 10^3/uL (0.0-0.06); Absolute Basophil Count 0.06 10^3/uL (0.0-0.2); Absolute Eosinophil Count 0.34 10^3/uL (0.0-0.7); Absolute Lymphocyte Count 1.81 10^3/uL (1.2-3.4); Absolute Neutrophil Count 11.56 10^3/uL (1.2-6.7); Basophils % 0.4 %; Eosinophils % 2.2 %; HCT 40.3 % (36.0-46.0); HGB 12.1 g/dL (11.2-15.7); Immature Grans % 0.4 %; Lymphocytes % 11.9 %; MCH 23.7 pg (27.0-33.0); MCV 79 fL (80-95); MPV 10.7 fL (8.0-11.0); Monocytes % 9.2 %; Neutrophils % 75.9 %; Platelet Count 298 10^3/uL (130-400); RDW 14.6 % (11.7-14.6); RDW-SD 42.5 fL; WBC 15.23 10^3/uL (4.4-10.8)
[2024-08-17] MEDS: Albuterol/Ipratropium 3 ML UPD VIAL UPD (01:10)
[2024-08-17 01:30] LABS: Troponin I 11 ng/L (<or=51)
[2024-08-17 01:33] LABS: ALT 27 U/L (14-59); AST 15 U/L (15-37); Albumin 3.1 g/dL (3.4-5.0); Alkaline Phosphatase 99 U/L (46-116); Anion Gap 5.5 mmol/L (3-11); BUN 14 mg/dL (7-18); Bilirubin, Total 0.67 mg/dL (0.2-1.0); CO2 34.5 mmol/L (21.0-32.0); CREATININE 0.9 mg/dL (0.55-1.02); Calcium 9.1 mg/dL (8.5-10.1); Chloride 99 mmol/L (98-107); Glucose 140 mg/dL (74-106); Sodium 139 mmol/L (136-145); Total Protein 7.8 g/dL (6.4-8.2)
[2024-08-17 01:36] LABS: Potassium 2.9 mmol/L (3.5-5.1)
[2024-08-17 01:37] LABS: Procalcitonin 0.13 ng/mL
[2024-08-17 01:47] LABS: COVID-19 PCR Negative (Negative); Influenza A PCR Negative (Negative); Influenza B PCR Negative (Negative); RSV PCR Negative (Negative)
--- NOTE | 2024-08-17 01:47 | ED.GENADUL_ITS ---
Discharge Plan Disposition Patient Disposition: Admit to [facility] Condition: Good Discharge Details Chief Complaint: RespSymp Clinical Impression: Pneumonia, Hypoxemia Primary Care Provider: Roxi Ramirez ED Provider: Bg Gautam Home Meds and New Rx's Prescriptions: No Action torsemide 20 mg tablet 80 mg PO BID escitalopram oxalate 10 mg tablet 10 mg PO DAILY amlodipine 5 mg tablet 5 mg PO DAILY olanzapine 20 mg tablet 20 mg PO HS Qty: 30 6RF spironolactone 25 mg tablet 25 mg PO DAILY guaifenesin [Tussin] 100 mg/5 mL liquid 200 mg PO Q6H PRN cholecalciferol (vitamin D3) 50 mcg (2,000 unit) capsule 50 mcg PO DAILY omeprazole 20 mg capsule,delayed release(DR/EC) 20 mg PO DAILY mirabegron [Myrbetriq] 25 mg tablet extended release 24 hr 25 mg PO DAILY polyethylene glycol 3350 [ClearLax] 17 gram/dose powder 17 g PO DAILY PRN lorazepam 0.5 mg tablet 0.5 mg PO BID Qty: 60 5RF guaifenesin 600 mg tablet extended release 12hr 600 mg PO BID Qty: 10 0RF fluticasone propion-salmeterol [Advair HFA] 115-21 mcg/actuation HFA aerosol inhaler 2 puff inhalation BID ProAir RespiClick 90 mcg/actuation aerosol powdr breath activated 1 inh inhalation Q12H acetaminophen 325 mg Tablet 650 mg PO TID PRN PRN (Reason: Pain) cholestyramine (with sugar) 4 gram powder 4 pwd PO DAILY HPI General Date/Time Provider Initiated Documentation: 08/17/24 00:54 . HPI Narrative: 69-year-old female with a past medical history of esophageal dysmotility, schizophrenia, asthma, thyroid dysfunction, congestive heart failure (however echo in 2019 showed normal ventricular movement), GERD, on furosemide, spironolactone, who currently resides at the [facility], presents today for evaluation of shortness of breath and cough. Patient states that she has been coughing for the last few days, however the [facility] staff states that it began this evening and she was notably short of breath. [facility] recorded an O2 saturation at 81% on room air. EMS was called. She was on 10 L when EMS arrived and the patient was saturating in the low 90s. Patient was brought to the ER for further assessment. Patient denies any chest pain. She denies any swelling in her lower extremities recently. She states that this does not feel like her previous episodes of congestive heart failure. Related Data Home Medications ?Medication ?Instructions ?Recorded ?Confirmed acetaminophen 325 mg tablet 650 mg PO TID PRN PRN Pain 09/30/18 08/17/24 torsemide 20 mg tablet 80 mg PO BID 06/19/22 08/17/24 albuterol sulfate 90 mcg/actuation 1 inh inhalation Q12H 07/26/22 08/17/24 breath activated powder inhaler (ProAir RespiClick) fluticasone propionate 115 2 puff inhalation BID 07/26/22 08/17/24 mcg-salmeterol 21 mcg/actuation HFA inhaler (Advair HFA) cholecalciferol (vitamin D3) 50 50 mcg PO DAILY 10/31/22 08/17/24 mcg (2,000 unit) capsule omeprazole 20 mg capsule,delayed 20 mg PO DAILY 10/31/22 08/17/24 release amlodipine 5 mg tablet 5 mg PO DAILY 01/03/23 08/17/24 escitalopram oxalate 10 mg tablet 10 mg PO DAILY 01/03/23 08/17/24 cholestyramine (with sugar) 4 gram 4 pwd PO DAILY 10/17/23 08/17/24 oral powder olanzapine 20 mg tablet 20 mg PO HS #30 tabs 11/20/23 08/17/24 spironolactone 25 mg tablet 25 mg PO DAILY 11/21/23 08/17/24 mirabegron 25 mg tablet,extended 25 mg PO DAILY 12/04/23 08/17/24 release 24 hr (Myrbetriq) guaifenesin 100 mg/5 mL oral 200 mg PO Q6H PRN 03/02/24 08/17/24 liquid (Tussin) polyethylene glycol 3350 17 17 g PO DAILY PRN 06/11/24 08/17/24 gram/dose oral powder (ClearLax) guaifenesin 600 mg tablet, 600 mg PO BID #10 tabs 08/04/24 08/17/24 extended release 12 hr lorazepam 0.5 mg tablet 0.5 mg PO BID anxiety #60 tabs 08/04/24 08/17/24 Previous Rx's ?Medication ?Instructions ?Recorded olanzapine 20 mg tablet 20 mg PO HS #30 tabs 11/20/23 guaifenesin 600 mg tablet, 600 mg PO BID #10 tabs 08/04/24 extended release 12 hr lorazepam 0.5 mg tablet 0.5 mg PO BID anxiety #60 tabs 08/04/24 Allergies Allergy/AdvReac Type Severity Reaction Status Date / Time Sulfa (Sulfonamide Allergy Mild Skin Rash Verified 08/17/24 00:56 Antibiotics) General Stated Complaint: RespSymp TIFFANY: 3 Exam Narrative Exam Narrative: 1.Const: Well-nourished, Well-developed, appearing stated age 2.Eyes: PERRL, no conjunctival injection, and symmetrical lids. 3.ENT: Atraumatic external nose and ears. Moist MM. Neck: Symmetric, trachea midline, No thyromegaly. 4.CVS: +S1/S2, Peripheral pulses 2+ and equal in all extremities. Brisk capillary refill in all extremities. 5.RESP: Notably rhonchorous breath sounds throughout, mainly in the upper abdomen with was scattered mild crackles in the bases. 6.GI: Soft, Nontender/Nondistended, No hepatosplenomegaly. No guarding or rebou nd. 7.MSK: Normocephalic/Atraumatic, Extremities w/o deformity or ttp No cyanosis or clubbing, Normal movement of all extremities. No pitting edema lower extremities 8.Skin: Warm, Dry. No rashes or lesions. 9.Neuro: blanchard grinder operator II-XII grossly intact. Sensation grossly intact, no focal neurologic deficits. 10.Psych: (AAO) x3. Appropriate mood and affect Course Vital Signs Vital signs: Vital Signs Temperature 37.4 C 08/17/24 00:47 Pulse 124 H 08/17/24 00:47 Respiratory Rate 20 08/17/24 00:47 Blood Pressure 145/99 H 08/17/24 00:47 Pulse Oximetry 88 L 08/17/24 00:47 Temperature 37.4 C 08/17/24 00:47 Pulse 117 H 08/17/24 01:20 Pulse 127 H 08/17/24 01:20 Respiratory Rate 18 08/17/24 01:20 Respiratory Effort Normal, Non-Labored 08/17/24 00:59 Respiratory Depth Normal 08/17/24 00:59 Blood Pressure 185/123 H 08/17/24 01:15 Blood Pressure Mean 127 08/17/24 01:15 Blood Pressure Position Supine 08/17/24 00:47 Pulse Oximetry 93 08/17/24 01:20 Oxygen Delivery Method Room Air 08/17/24 00:47 Oxygen Flow Rate 30 08/17/24 01:15 Fraction of Inspired Oxygen (FIO2) 40 08/17/24 01:15 Comment 95% on 4 LPM NC 08/17/24 00:47 Lab/Test Results Lab/Test Results: 08/17/24 01:25 Blood Blood Culture - Pending 08/17/24 01:04 Blood Blood Culture - Pending Laboratory Tests Range/Units 08/17/24 01:02 WBC (4.4-10.8) 10^3/uL 15.23 H RBC (3.93-5.22) 10^6/uL 5.10 Hgb (11.2-15.7) g/dL 12.1 Hct (36.0-46.0) % 40.3 MCV (80-95) fL 79 L MCH (27.0-33.0) pg 23.7 L MCHC (32.0-36.0) % 30.0 L RDW (11.7-14.6) % 14.6 Plt Count (130-400) 10^3/uL 298 MPV (8.0-11.0) fL 10.7 Immature Gran % % 0.4 Neutrophils % % 75.9 Lymphocytes % % 11.9 Monocytes % % 9.2 Eosinophils % % 2.2 Basophils % % 0.4 Nucleated RBC % (0.0-0.3) % 0.0 Absolute Neutrophils (1.2-6.7) 10^3/uL 11.56 H Absolute Lymphocytes (1.2-3.4) 10^3/uL 1.81 Absolute Monocytes (0.1-0.8) 10^3/uL 1.40 H Absolute Eosinophils (0.0-0.7) 10^3/uL 0.34 Absolute Basophils (0.0-0.2) 10^3/uL 0.06 VBG pH (7.31-7.41) 7.41 VBG pCO2 (41-51) mmHg 53 H VBG pO2 mmHg 61 VBG HCO3 (23-28) mmol/L 34 H VBG Total CO2 (24-29) mmol/L 31 H VBG O2 Saturation % 92 VBG Base Excess (-2-3) mmol/L 9 H VBG Lactate (<or=2.0) mmol/L 0.9 Sodium (136-145) mmol/L 139 Potassium (3.5-5.1) mmol/L 2.9 L* Chloride (98-107) mmol/L 99 Carbon Dioxide (21.0-32.0) mmol/L 34.5 H Anion Gap (3-11) mmol/L 5.5 BUN (7-18) mg/dL 14 Creatinine (0.55-1.02) mg/dL 0.9 Est GFR (CKD-EPI 2020) (mL/min/1.73m2) 69.20 Glucose (74-106) mg/dL 140 H Calcium (8.5-10.1) mg/dL 9.1 Total Bilirubin (0.2-1.0) mg/dL 0.67 AST (15-37) U/L 15 ALT (14-59) U/L 27 Alkaline Phosphatase (46-116) U/L 99 Troponin I (<or=51) ng/L 11 Total Protein (6.4-8.2) g/dL 7.8 Albumin (3.4-5.0) g/dL 3.1 L Procalcitonin ng/mL 0.13 Medical Decision Making 69-year-old female with a past medical history of esophageal dysmotility, schizophrenia, asthma, thyroid dysfunction, congestive heart failure (however echo in 2019 showed normal ventricular movement), GERD, on furosemide, spironolactone, who currently resides at the [facility], presents today for evaluation of shortness of breath and cough. Patient states that she has been coughing for the last few days, however the [facility] staff states that it began this evening and she was notably short of breath. [facility] recorded an O2 saturation at 81% on room air. EMS was called. She was on 10 L when EMS arrived and the patient was saturating in the low 90s. Patient was brought to the ER for further assessment. Patient denies any chest pain. She denies any swelling in her lower extremities recently. She states that this does not feel like her previous episodes of congestive heart failure. Exam demonstrates extremely rhonchorous upper respiratory breath sounds, with a few scattered crackles in the bases. No pitting edema of the lower extremities. Symptoms do not appear consistent with congestive heart failure exacerbation based on clinical assessment. Differential is concerning for pneumonia versus aspiration pneumonia. Concern for an asthma component as well. Out of concern for the significant upper respiratory rhonchorous components I am worried that there may be a mucous plugging issue or just significant sputum getting in the way causing hypoxemia. Initially we titrated down to 4 L, the patient tolerated this well with an O2 in the low 90s. However we will transition to high flow nasal cannula with moisturizing warmed air to help with the expectoration of secretions. Will evaluate for other concerning etiologies. Will monitor closely and reassess. We will contact respiratory therapy for aggressive pulmonary toilet and physiotherapy with suctioning. 2:51 AM Patient has been maintaining well on high flow. Aggressive suctioning was performed and multiple large mucous plugs were removed, patient tolerated this well and had a significant clinical improvement after this. However she still continues to have recurrence of notable mucus, and she does get into coughing fits which then brings about brief episodes of hypoxemia which did subsequently require the high flow to be titrated up to 45%. However she seems to be tolerating this very well. Chest x-ray showed evidence of bibasilar infiltrates, will start the patient on ceftriaxone and doxycycline for pneumonia. Without unilateral focality I think it is less likely that this would be aspiration pneumonia. Laboratory workup does show an elevated white count, no acidosis, minimal elevation in pCO2. Lactate normal. Procalcitonin minimally elevated at 0.13. Patient's troponin is normal, potassium low at 2.9, renal function normal. Magnesium low at 1.3. We will give 40 of liquid oral potassium secondary to her dysphagia. Will give 20 of IV potassium, will give 2 g of magnesium. Patient has received 2 g of ceftriaxone and doxycycline. COVID flu and RSV testing negative. I did reach out to the hospitalist Dr. Rojas, he agrees with the assessment and plan. I will place admission orders on his behalf at his request. In the interim, we will hold the patient in the ED and continue to manage her medical care until she is able to transition to the floor. I have extensively reviewed the treatment plan with the patient. I have addressed all patient concerns at this time. I have also discussed the plan with the admitting physician and they agree with the current assessment and plan and have agreed to assume responsibility for the patient. All parties demonstrate verbal understanding and agreement with our assessment and plan at this time. The documentation in this chart was dictated using [employer] dictation software. Please excuse any dictation errors. FINDINGS: Lungs: Low lung volumes. Mild pulmonary vascular congestion. Ill-defined bibasilar opacities. Pleural spaces: Suspect small left pleural effusion. Heart/Mediastinum: Cardiac silhouette magnified by AP technique. Bones/joints: No acute abnormality. IMPRESSION: Ill-defined bibasilar opacities. Consider atelectasis, pneumonia. Follow-up as c linically warranted. Thank you for allowing us to participate in the care of your patient. Dictated and Authenticated by: Tyra Bangura MD 08/17/2024 1:50 AM Eastern Time ([place] & [place]) Quality:SDOH Health Related Social Needs: No Data to Display Critical Care Time Critical Care Time Critical Care Time: Yes Total Critical Care Time: 45 Attestation: Upon my evaluation, this patient had a high probability of imminent or life- threatening deterioration, which required my direct attention, intervention, and personal management. I have personally provided 45 minutes of critical care time exclusive of time spent on separately billable procedures. Time includes review of laboratory data, radiology results, discussion with consultants, and monitoring for potential decompensation. Interventions were performed as documented. 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 at [facility] on 08/25/2019 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 GERD (gastroesophageal reflux disease) (Chronic) Acute on chronic diastolic CHF (congestive heart failure) (Acute) Medical History (Updated 08/17/24 @ 03:01 by Bg R Dain, DO) Low back pain Hip pain, bilateral Polycythemia Acute respiratory failure with hypoxia and hypercapnia Aspiration pneumonia Hematemesis Gastric ulcer Asthma Cholestasis Cirrhosis Urinary retention Catatonia associated with another mental disorder Advance directive on file Has end of life care plan Weakness on right side of face Hypokalemia Hypernatremia Hypomagnesemia Esophageal dysmotility Dysphagia Bradycardia Hypothyroidism Hypertension Cognitive developmental delay Babinski response Dyspnea KJ (acute kidney injury) Schizophrenia Surgical History H/O esophagogastroduodenoscopy and endoscopic ultrasound 08/2019 at [facility] H/O oophorectomy History of bilateral tubal ligation History of hernia repair Social History Smoking/Tobacco Use Status: Never Smoking risk assessment performed?: Yes Alcohol Intake: never Drug use: Never Substance use type: does not use Household members: none Housing: jail Do you feel safe at home: Yes Do you feel safe in your relationship?: Yes Additional Social history: Resident @ [facility] [employer]
[2024-08-17 01:50] LABS: Source Nasopharynx
--- NOTE | 2024-08-17 01:50 | DI.VRAD_ITS ---
PROCEDURE INFORMATION: Exam: XR Chest Exam date and time: 08/17/2024 1:34 AM Age: 69 years old Clinical indication: SOB, cough, hypoxic TECHNIQUE: Imaging protocol: Radiologic exam of the chest. Views: 1 view. COMPARISON: CR XR PORTABLE CHEST AP 10/17/2023 1:38 AM FINDINGS: Lungs: Low lung volumes. Mild pulmonary vascular congestion. Ill-defined bibasilar opacities. Pleural spaces: Suspect small left pleural effusion. Heart/Mediastinum: Cardiac silhouette magnified by AP technique. Bones/joints: No acute abnormality. IMPRESSION: Ill-defined bibasilar opacities. Consider atelectasis, pneumonia. Follow-up as clinically warranted. Dictated and Authenticated by: Tyra Bangura MD. Orderin Dain Pederson MD
[2024-08-17 01:56] LABS: Magnesium 1.3 mg/dL (1.8-2.4)
[2024-08-17] MEDS: DOXYCYCLINE 100 MG in Normal Saline 100 ML IVPB ×2 (02:16→14:14)
[2024-08-17] MEDS: POTASSIUM CHLORIDE 20 MEQ/100 ML BAG 50 MEQ IV_INF (02:17)
[2024-08-17] MEDS: cefTRIAXone 2 GM/50 ML BAG IVPB (02:17)
[2024-08-17 02:30] LABS: Lab Add On Test DONE
[2024-08-17 02:50] LABS: NT-proBNP 283 pg/mL (<300)
[2024-08-17] MEDS: Potassium Chloride Liquid 20 MEQ PKT 40 MEQ PO (03:07)
[2024-08-17] MEDS: MAGNESIUM SULFATE 2 GM/50 ML BAG IV_INF (03:08)
[2024-08-17 03:21] LABS: Troponin I 7 ng/L (<or=51)
[2024-08-17 03:48] LABS: MRSA PCR Negative (Negative)
[2024-08-17 04:50] LABS: Troponin I 8 ng/L (<or=51)
[2024-08-17] MEDS: Acetaminophen 325 MG TAB 650 MG PO (06:06)
[2024-08-17] MEDS: Benzonatate 100 MG CAP 200 MG PO ×3 (06:07→21:07)
--- NOTE | 2024-08-17 07:31 | W.PALLCONSUL ---
Date of service: 08/17/24 Time of Service: 07:32 History of Present Illness History of Present Illness Chief Complaint: SOB, worsening Narrative: 69 yo female with long history of Schizophrenia, living at the [facility]. She has recurrent difficulties with aspiration pneumonia. I saw her about 10 days ago at the [facility] and she had a brief cough, but was feeling better. Unfortunately her illness progressed, she became more SOB and was sent to ER for evaluation. Due to hypoxemia and cxr showing pneumonia, she was admitted for further care. Cheryle stated she felt better than when she was admitted. Consults Consult date: 08/17/24 Requesting physician: Jesus Manuel James Assessment and Plan Assessment and plan (1) Schizophrenia: Status: Chronic Assessment and plan: Christie has been a long-term patient of mine while she has been living at the [facility]. I have seen her both is the medical research assistant there and also as a palliative consult. I saw her as recently as 10 days ago. Her schizophrenia is generally very stable and she is a happy delightful person. She has had 3 episodes of paranoia, tab and aggression. What works best for her is to increase her Ativan. We have had to go as high as 1 mg 3 times daily and 1 mg as needed. Over the course of several weeks she does come back to her baseline. She presently is at her baseline but if she becomes agitated I would definitely consider a low-dose of lorazepam. I have discussed this with the hospitalist team I will continue to follow She received replacement potassium. Will check levels Aspiration pneumonia - multiple episodes. Speech eval would be helpful. She loves soda, but only allowed 4oz / 3 times weekly due to her aspiration problems with carbonated beverages. Please limit these liquids. Spoke to nursing regarding this Review of Systems Constitutional Comments: feeling better, but said she had problems breathing PO - nl elimination - baseline No chest pain, headaches, abdominal pain generally smiles and cooperative PFSH All Active Problems (Updated 08/17/24 @ 11:30 by Jesus Manuel James DO) Hypoxemia (Acute) Pneumonia (Acute) Counseling regarding advance care planning and goals of care (Acute) Acute hypoxic respiratory failure (Acute) Onychomycosis (Acute) Schizophrenia (Chronic) Acute asthmatic bronchitis (Acute) Elevated parathyroid hormone (Acute) Physician orders for life-sustaining treatment (POLST) form indicates patient wish for cx-szo-iwppbfmjyge status (Acute) Schatzki's ring of distal esophagus (Chronic) Hematuria (Acute) Obesity, morbid, BMI 40.0-49.9 (Acute) 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 [facility] 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 Acute on chronic diastolic CHF (congestive heart failure) (Acute) GERD (gastroesophageal reflux disease) (Chronic) Medical History (Updated 08/17/24 @ 11:30 by Jesus Manuel James DO) Low back pain Hip pain, bilateral Polycythemia Acute respiratory failure with hypoxia and hypercapnia Aspiration pneumonia Hematemesis Gastric ulcer Asthma Cholestasis Cirrhosis Urinary retention Catatonia associated with another mental disorder Advance directive on file Has end of life care plan Weakness on right side of face Hypokalemia Hypernatremia Hypomagnesemia Esophageal dysmotility Dysphagia Bradycardia Hypothyroidism Hypertension Cognitive developmental delay Babinski response Dyspnea KJ (acute kidney injury) Schizophrenia Surgical History H/O esophagogastroduodenoscopy and endoscopic ultrasound [place] [facility] oophorect[place] History of bilateral tubal ligation History of hernia repair Social History Smoking/Tobacco Use Status: Never Smoking risk assessment performed?: Yes Alcohol Intake: never Drug use: Never Substance use type: does not use Household members: none Housing: usp Do you feel safe at home: Yes Do you feel safe in your relationship?: Yes Additional Social history: Resident @ [facility]R Exam Narrative Exam Narrative: As is her baseline: smiley, happy femaie. HEENT: eyes clear, teeth in poor condition, no LN enlargement Lungs - rales - left posterior lung reynaga; decreased inspiration cardiac - RR, SM 2/6 Abdomen - Non tender, obese Lower extremities- some edema, but less than baseline, support hose not in place Results Last Vital Signs Temp 100.9 F H 08/17/24 06:06 Pulse 99 H 08/17/24 06:26 Resp 22 08/17/24 06:26 BP 137/85 08/17/24 06:26 Pulse Ox 91 L 08/17/24 06:26 Labs 08/17/24 14:45 08/17/24 14:45 Labs: Laboratory Results - last 24 hr 08/17/24 08/17/24 08/17/24 01:02 02:32 02:50 WBC 15.23 H RBC 5.10 Hgb 12.1 Hct 40.3 MCV 79 L MCH 23.7 L MCHC 30.0 L RDW 14.6 Plt Count 298 MPV 10.7 Immature Gran % 0.4 Neutrophils % 75.9 Lymphocytes % 11.9 Monocytes % 9.2 Eosinophils % 2.2 Basophils % 0.4 Nucleated RBC % 0.0 Absolute Neutrophils 11.56 H Absolute Lymphocytes 1.81 Absolute Monocytes 1.40 H Absolute Eosinophils 0.34 Absolute Basophils 0.06 VBG pH 7.41 VBG pCO2 53 H VBG pO2 61 VBG HCO3 34 H VBG Total CO2 31 H VBG O2 Saturation 92 VBG Base Excess 9 H VBG Lactate 0.9 Sodium 139 Potassium 2.9 L* Chloride 99 Carbon Dioxide 34.5 H Anion Gap 5.5 BUN 14 Creatinine 0.9 Est GFR (CKD-EPI 2020) 69.20 Glucose 140 H Calcium 9.1 Magnesium 1.3 L Total Bilirubin 0.67 AST 15 ALT 27 Alkaline Phosphatase 99 Troponin I 11 7 NT-Pro-B Natriuret Pep 283 Total Protein 7.8 Albumin 3.1 L Procalcitonin 0.13 COVID-19 Source Nasopharynx SARS-CoV-2 (PCR) Negative Influenza Type A (PCR) Negative Influenza Type B (PCR) Negative RSV (PCR) Negative MRSA (TEM-PCR) Negative Add-On Test Request DONE 08/17/24 04:30 WBC RBC Hgb Hct MCV MCH MCHC RDW Plt Count MPV Immature Gran % Neutrophils % Lymphocytes % Monocytes % Eosinophils % Basophils % Nucleated RBC % Absolute Neutrophils Absolute Lymphocytes Absolute Monocytes Absolute Eosinophils Absolute Basophils VBG pH VBG pCO2 VBG pO2 VBG HCO3 VBG Total CO2 VBG O2 Saturation VBG Base Excess VBG Lactate Sodium Potassium Chloride Carbon Dioxide Anion Gap BUN Creatinine Est GFR (CKD-EPI 2020) Glucose Calcium Magnesium Total Bilirubin AST ALT Alkaline Phosphatase Troponin I 8 NT-Pro-B Natriuret Pep Total Protein Albumin Procalcitonin COVID-19 Source SARS-CoV-2 (PCR) Influenza Type A (PCR) Influenza Type B (PCR) RSV (PCR) MRSA (TEM-PCR) Add-On Test Request Imaging Chest x-ray: report reviewed (INDINGS: The exam is limited by under penetration at the lung bases. LUNGS: Basilar infiltrates are not excluded. Question tiny pleural effusions. Pulmonary vascular prominence. HEART: Normal size. AORTA: Normal diameter. BONES: Unremarkable for age. Soft tissues: Unremarkable. IMPRESSION) Time Spent Time Spent with Patient Time Spent(min): 28
--- NOTE | 2024-08-17 08:52 | INITIAL_ITS ---
Date of service: 08/17/24 Time of Service: 08:52 Care Management Initial Assmt Initial Assessment Reason for Hospitalization: pneumonia Functional Status/Living Situation Patient Presentation: Christie was brought to the ER from the [facility] early this morning, where she has resided for a few years, due to cough and low O2 sats. Christie was found to have aspiration pneumonia. When CM met with her today, she was on high flow nc at 40% with a flow rate of 43. She does not use O2 at baseline. She was noted to have a very wet sounding cough, and she stated that she feels quite sick. Christie is on double abx to treat her pneumonia, and she also has running IVF. Christie was quite pleasant, but was not really up to conversing at this time. She did report that she is very happy living at the [facility], and her sisters visit often. Town of Residence: [place] at the [facility] Resides with: Other (the [facility]) Significant Other/Family: Local (sisters, Tiny and Netta and brother-in law, Cedric, who visit and call often) Caregiver/Guardian: the [facility] Natural Supports: sisters Employment Status: Retired Instrumental Activities of Daily Living (ADLs): Requires support Activities/Hobbies/SocialSupport: Watching TV, taking road trips and talking/visiting with people. Medications Medication Management: No Issues/Barriers identified Physical Functioning/Mobility Assistive Device: FWW, needs assist Advance Directives Advance Directives: Do you have an Advance Directive: Y 06/13/22 12:11 AD On File at [facility]: Y 06/13/22 12:11 Date Asked 08/25/18 08/17/24 07:49 AD Date Reviewed 08/17/24 08/17/24 01:05 COLST On File at [facility] Yes 06/13/22 12:11 COLST Date Scanned 08/01/18 06/13/22 12:11 Code Status Resuscitation Status DNR/DNI Insurance Coverage/Financial Issues Insurance: Medicare and Medicaid Care Team Visit Care Team Role Provider Type Jesus Manuel James DO MD [facility] STAFF PHYSICIAN Roxi Ramirez MD, [place] Primary Care Provider [facility] Bg Gautam DO Emergency Provider [facility] STAFF PHYSICIAN Jesus Manuel Garcia MD Admit Provider MD [facility] STAFF PHYSICIAN Attending Provider Other: Dr. Ramirez also follows as Palliative Care patient Discharge Potential Discharge Needs: PT Evaluation and PCP F/U Appt Anticipated Barriers to Discharge: None Identified Patient/Family Education Needs: Review discharge instructions, discuss Ask Me Three Transportation: RCT RCT Transportation: Wheel chair van Plan: Anticipate Christie will be discharged back to the [facility], where she resides, when medically ready. She will follow up with facility providers and plan of care and transport via RCT. CM will follow and continue to assess for discharge needs. Social Determinants of Health Screening Social Determinants of Health last assessed: 08/17/24 Will the Patient Participate in the Screening?: Yes Do you worry about having a steady place to live?: no Problems where you live: no known problems In the past 12 months, have you had to go without electric, gas, oil or water in your home?: no Have you or anyone in your house had to go without enough food to eat?: no Has lack of transportation kept you from medical appointments or from doing things needed for daily living?: no Has anyone in your life made you feel unsafe or unsupported?: no How hard is it for you to pay for the very basics like food, housing, medical care, and heating? Would you say it is:: Not hard at all Do you want help finding or keeping work or a job?: I do not need or want help If for any reason you need help with day-to-day activities such as bathing, preparing meals, shopping, managing finances, etc., do you get the help you need?: I don?t need any help How often do you feel lonely or isolated from those around you?: Never Do you speak a language other than Tristanian at home?: No Does the patient want assistance with any of the above?: No Social Determinants of Health Comments(SDRI Details): lives at the [facility] All Active Problems (Updated 08/17/24 @ 11:30 by Jesus Manuel James DO) Hypoxemia (Acute) Pneumonia (Acute) Counseling regarding advance care planning and goals of care (Acute) Acute hypoxic respiratory failure (Acute) Onychomycosis (Acute) Schizophrenia (Chronic) Acute asthmatic bronchitis (Acute) Elevated parathyroid hormone (Acute) Physician orders for life-sustaining treatment (POLST) form indicates patient wish for ct-qcv-bchfbttzccn status (Acute) Schatzki's ring of distal esophagus (Chronic) Hematuria (Acute) Obesity, morbid, BMI 40.0-49.9 (Acute) 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 at [facility] [place] on 08/25/2019 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 GERD (gastroesophageal reflux disease) (Chronic) Acute on chronic diastolic CHF (congestive heart failure) (Acute) Medical History (Updated 08/17/24 @ 11:30 by Jesus Manuel James DO) Low back pain Hip pain, bilateral Polycythemia Acute respiratory failure with hypoxia and hypercapnia Aspiration pneumonia Hematemesis Gastric ulcer Asthma Cholestasis Cirrhosis Urinary retention Catatonia associated with another mental disorder Advance directive on file Has end of life care plan Weakness on right side of face Hypokalemia Hypernatremia Hypomagnesemia Esophageal dysmotility Dysphagia Bradycardia Hypothyroidism Hypertension Cognitive developmental delay Babinski response Dyspnea KJ (acute kidney injury) Schizophrenia Surgical History H/O esophagogastroduodenoscopy and endoscopic ultrasound 08/2019 at [facility] [place] H/O oophorectomy History of bilateral tubal ligation History of hernia repair Social History Smoking/Tobacco Use Status: Never Smoking risk assessment performed?: Yes Alcohol Intake: never Drug use: Never Substance use type: does not use Household members: none Housing: skilled nursing Do you feel safe at home: Yes Do you feel safe in your relationship?: Yes Additional Social history: Resident @ [facility] H&R Readmission Within the Past 30 Days Yes or No: No
[2024-08-17] MEDS: Normal Saline Flush 10 ML SYR IVP ×2 (09:35→21:08)
--- NOTE | 2024-08-17 11:21 | HPE_ITS ---
Date of service: 08/17/24 Time of Service: 11:21 Assessment and Plan Assessment and plan (1) Acute hypoxic respiratory failure: Status: Acute Assessment and plan: will keep in ICU due to O2 requirements for now due to pna as discussed below continue HFNC, currently 40L with sat 92% (2) Pneumonia: Status: Acute Assessment and plan: Question of CAP vs aspiration, patient has hx of aspiration with esophageal dysmotility PATIENT MEETS SEPSIS CRITERIA Given abx in ER, will start Unasyn/Doxy to continue for now continue nebs/Advair Blood cultures follow WBC speech eval once more alert apparently well known to palliative care here, will order consultation (3) Schizophrenia: Status: Chronic Assessment and plan: documented as being well controlled with current mendications has required ativan in the past but is very sedated now, can order prn if needed conitnue outpatient meds (mirabegron, olanzapine) History of Present Illness History of Present Illness Chief Complaint: hypoxia Narrative: This is a 69 yo female, resident of the [facility], with pmhx: chronic aspiration, chronic diastolic CHF, GERD that presented overnight with SOB and hypoxia. I encountered the patient the next morning. She was very lethargic, on HFNC, stable but not arousable enough to give much hx. Therefore, hx is per previous documentation. Per ER, patient had ongoing cough noted by staff at facility over past few days. This continued to worsen and sat at that time was 81% on RA, patient is typically not on home O2. EMS was called and she was started on 10L with improvement into the law 90s. Patient was subsequently admitted to our service early in the morning. Given single dose of IV Zosyn in ER with plans for treatment of presumed recurrent aspiration pna with infiltrates found on CXR. Was found to be hypokalemic/hypomagnesemic in ER, repleted IV with rechecks pending. As noted, patient was very lethargic when I met her this AM. She was able to open her eyes and gave me 1 word answers and fell back asleep. Vitals/labs reviewed. Review of Systems Narrative: could not obtain in this lethargic patient PFSH All Active Problems (Updated 08/17/24 @ 11:30 by Jesus Manuel James DO) Hypoxemia (Acute) Pneumonia (Acute) Counseling regarding advance care planning and goals of care (Acute) Acute hypoxic respiratory failure (Acute) Onychomycosis (Acute) Schizophrenia (Chronic) Acute asthmatic bronchitis (Acute) Elevated parathyroid hormone (Acute) Physician orders for life-sustaining treatment (POLST) form indicates patient wish for hp-gnz-sgpmgtkffjw status (Acute) Schatzki's ring of distal esophagus (Chronic) Hematuria (Acute) Obesity, morbid, BMI 40.0-49.9 (Acute) 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 [facility] [place] 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 GERD (gastroesophageal reflux disease) (Chronic) Acute on chronic diastolic CHF (congestive heart failure) (Acute) Medical History (Updated 08/17/24 @ 11:30 by Jesus Manuel James DO) Low back pain Hip pain, bilateral Polycythemia Acute respiratory failure with hypoxia and hypercapnia Aspiration pneumonia Hematemesis Gastric ulcer Asthma Cholestasis Cirrhosis Urinary retention Catatonia associated with another mental disorder Advance directive on file Has end of life care plan Weakness on right side of face Hypokalemia Hypernatremia Hypomagnesemia Esophageal dysmotility Dysphagia Bradycardia Hypothyroidism Hypertension Cognitive developmental delay Babinski response Dyspnea KJ (acute kidney injury) Schizophrenia Surgical History H/O esophagogastroduodenoscopy [place] [facility] [place] oophorect[place] History of bilateral tubal ligation History of hernia repair Social History Smoking/Tobacco Use Status: Never Smoking risk assessment performed?: Yes Alcohol Intake: never Drug use: Never Substance use type: does not use Household members: none Housing: long term Do you feel safe at home: Yes Do you feel safe in your relationship?: Yes Additional Social history: Resident @ [facility] Allergies and Home Medications Allergies Allergy/AdvReac Type Severity Reaction Status Date / Time Sulfa (Sulfonamide Allergy Mild Skin Rash Verified 08/17/24 00:56 Antibiotics) Home Medications ?Medication ?Instructions ?Recorded ?Confirmed ?Type acetaminophen 325 mg tablet 650 mg PO TID PRN PRN Pain 09/30/18 08/17/24 History torsemide 20 mg tablet 80 mg PO BID 06/19/22 08/17/24 History albuterol sulfate 90 mcg/actuation 1 inh inhalation Q12H 07/26/22 08/17/24 History breath activated powder inhaler (ProAir RespiClick) fluticasone propionate 115 2 puff inhalation BID 07/26/22 08/17/24 History mcg-salmeterol 21 mcg/actuation HFA inhaler (Advair HFA) cholecalciferol (vitamin D3) 50 50 mcg PO DAILY 10/31/22 08/17/24 History mcg (2,000 unit) capsule omeprazole 20 mg capsule,delayed 20 mg PO DAILY 10/31/22 08/17/24 History release amlodipine 5 mg tablet 5 mg PO DAILY 01/03/23 08/17/24 History escitalopram oxalate 10 mg tablet 10 mg PO DAILY 01/03/23 08/17/24 History cholestyramine (with sugar) 4 gram 4 pwd PO DAILY 10/17/23 08/17/24 History oral powder olanzapine 20 mg tablet 20 mg PO HS #30 tabs 11/20/23 08/17/24 Rx spironolactone 25 mg tablet 25 mg PO DAILY 11/21/23 08/17/24 History mirabegron 25 mg tablet,extended 25 mg PO DAILY 12/04/23 08/17/24 History release 24 hr (Myrbetriq) guaifenesin 100 mg/5 mL oral 200 mg PO Q6H PRN 03/02/24 08/17/24 History liquid (Tussin) polyethylene glycol 3350 17 17 g PO DAILY PRN 06/11/24 08/17/24 History gram/dose oral powder (ClearLax) guaifenesin 600 mg tablet, 600 mg PO BID #10 tabs 08/04/24 08/17/24 Rx extended release 12 hr lorazepam 0.5 mg tablet 0.5 mg PO BID anxiety #60 tabs 08/04/24 08/17/24 Rx Exam Const General: ill appearing Nutritional Appearance: average body habitus Resp Effort & Inspection: normal respiratory effort Auscultation: clear to auscultation bilaterally (very limited in this non cooperative patient) Cardio Jugular venous pressure: no JVD Rate: regular rate Rhythm: regular rhythm Bruits: no abdominal aortic bruits GI Inspection: normal to inspection Palpation: soft Percussion: normal to percussion Auscultation: normal bowel sounds Skin General skin exam: no rashes or lesions noted Neuro General: not alert Extrem General: normal to inspection and no pedal edema Results Imaging Chest x-ray: report reviewed and image reviewed Labs 08/17/24 01:02 08/17/24 01:02 Labs: Laboratory Results - last 24 hr 08/17/24 08/17/24 08/17/24 01:02 02:32 02:50 WBC 15.23 H RBC 5.10 Hgb 12.1 Hct 40.3 MCV 79 L MCH 23.7 L MCHC 30.0 L RDW 14.6 Plt Count 298 MPV 10.7 Immature Gran % 0.4 Neutrophils % 75.9 Lymphocytes % 11.9 Monocytes % 9.2 Eosinophils % 2.2 Basophils % 0.4 Nucleated RBC % 0.0 Absolute Neutrophils 11.56 H Absolute Lymphocytes 1.81 Absolute Monocytes 1.40 H Absolute Eosinophils 0.34 Absolute Basophils 0.06 VBG pH 7.41 VBG pCO2 53 H VBG pO2 61 VBG HCO3 34 H VBG Total CO2 31 H VBG O2 Saturation 92 VBG Base Excess 9 H VBG Lactate 0.9 Sodium 139 Potassium 2.9 L* Chloride 99 Carbon Dioxide 34.5 H Anion Gap 5.5 BUN 14 Creatinine 0.9 Est GFR (CKD-EPI 2020) 69.20 Glucose 140 H Calcium 9.1 Magnesium 1.3 L Total Bilirubin 0.67 AST 15 ALT 27 Alkaline Phosphatase 99 Troponin I 11 7 NT-Pro-B Natriuret Pep 283 Total Protein 7.8 Albumin 3.1 L Procalcitonin 0.13 COVID-19 Source Nasopharynx SARS-CoV-2 (PCR) Negative Influenza Type A (PCR) Negative Influenza Type B (PCR) Negative RSV (PCR) Negative MRSA (TEM-PCR) Negative Add-On Test Request DONE 08/17/24 04:30 WBC RBC Hgb Hct MCV MCH MCHC RDW Plt Count MPV Immature Gran % Neutrophils % Lymphocytes % Monocytes % Eosinophils % Basophils % Nucleated RBC % Absolute Neutrophils Absolute Lymphocytes Absolute Monocytes Absolute Eosinophils Absolute Basophils VBG pH VBG pCO2 VBG pO2 VBG HCO3 VBG Total CO2 VBG O2 Saturation VBG Base Excess VBG Lactate Sodium Potassium Chloride Carbon Dioxide Anion Gap BUN Creatinine Est GFR (CKD-EPI 2020) Glucose Calcium Magnesium Total Bilirubin AST ALT Alkaline Phosphatase Troponin I 8 NT-Pro-B Natriuret Pep Total Protein Albumin Procalcitonin COVID-19 Source SARS-CoV-2 (PCR) Influenza Type A (PCR) Influenza Type B (PCR) RSV (PCR) MRSA (TEM-PCR) Add-On Test Request Last Vital Signs Temp 38.3 C H 08/17/24 06:06 Pulse 93 H 08/17/24 07:30 Resp 29 H 08/17/24 07:30 BP 129/85 08/17/24 07:01 Pulse Ox 92 08/17/24 07:30 Time Spent Time spent with Patient: 40-54 minutes Time was spent: preparing to see the patient(eg.review tests), obtaining and/or reviewing separately otained hiistory and ordering medications,tests, procedures
[2024-08-17] MEDS: Budesonide/Formoterol 160/4.5 6 GM 60 PUFF INH IH ×2 (13:52→21:08)
[2024-08-17] MEDS: Omeprazole 20 MG CAPCR PO (14:15)
[2024-08-17] MEDS: Enoxaparin 40 MG/0.4 ML SYR SC (14:15)
[2024-08-17] MEDS: Escitalopram 10 MG TAB PO (14:16)
[2024-08-17] MEDS: Mirabegron 25 MG TABCR PO (14:17)
[2024-08-17] MEDS: Torsemide 20 MG TAB 80 MG PO (14:17)
[2024-08-17] MEDS: amLODIPine 5 MG TAB PO (14:17)
[2024-08-17 14:59] LABS: HCT 41.3 % (36.0-46.0); HGB 12.2 g/dL (11.2-15.7); MCH 23.6 pg (27.0-33.0); MCHC 29.5 % (32.0-36.0); MCV 80 fL (80-95); MPV 10.7 fL (8.0-11.0); Platelet Count 313 10^3/uL (130-400); RBC 5.18 10^6/uL (3.93-5.22); RDW 14.8 % (11.7-14.6); RDW-SD 43.2 fL; WBC 12.62 10^3/uL (4.4-10.8)
[2024-08-17 15:21] LABS: ALT 26 U/L (14-59); AST 17 U/L (15-37); Albumin 2.9 g/dL (3.4-5.0); Alkaline Phosphatase 97 U/L (46-116); Anion Gap 5.1 mmol/L (3-11); BUN 12 mg/dL (7-18); Bilirubin, Total 0.39 mg/dL (0.2-1.0); CO2 32.9 mmol/L (21.0-32.0); CREATININE 0.7 mg/dL (0.55-1.02); Calcium 9.4 mg/dL (8.5-10.1); Chloride 105 mmol/L (98-107); Estimated GFR 93.56 (mL/min/1.73m2); Glucose 116 mg/dL (74-106); Potassium 3.4 mmol/L (3.5-5.1); Sodium 143 mmol/L (136-145); Total Protein 7.5 g/dL (6.4-8.2)
[2024-08-17] MEDS: Normal Saline 1,000 ML 80 ML IV (15:57)
[2024-08-17] MEDS: AMPICILLIN/SULBACTAM 3 GM in Normal Saline 100 ML IVPB ×2 (16:01→22:21)
--- NOTE | 2024-08-17 16:29 | W.SPSTE ---
Date of service: 08/17/24 Time of Service: 16:00 Subjective Clinical (Bedside) Swallow Evaluation Speech Language Pathology Referred by: Dr James Referral Type: Clinical Swallow Evaluation Reason for Referral/HPI: Christie Gardiner is a 69 yo female familiar to this department from prior pneumonia hospitalization with PMH significant for schizophrenia, recurrent pneumonia, chronic diastolic CHF, and chronic aspiration in the setting of esophageal dysmotility/GERD. She was admitted with acute hypoxic respiratory failure. INTERNATIONAL MARKETING MANAGER IMPRESSIONS & RECOMMENDATIONS: Christie seen sitting bolt upright in bed on HFNC. She was initially on 40LPM, increased to 50LPM in light of desaturation during repositioning and PO trials. Christie was alert and oriented to self/situation. She accepted PO trials of thin liquid via straw and pudding (1:1 assist) without overt s/s aspiration. Of notice, after approximately 2 ounces pudding and 2 ounces of water, patient did experience reflux episode it came back up. This presentation is highly similar to last admission- with limited indications for prandial aspiration and high suspicion for recurrent pneumonia to be related to aspiration pneumonitis of reflux, in the setting of esophageal dysmotility. Unclear if medicinal intervention to support esophageal dysmotility would be beneficial- nursing aware of positional recommendations (upright for 30-60 min after PO as tolerated). Palliative care is also consulted. FURTHER INTERNATIONAL MARKETING MANAGER SERVICES: Patient to be followed while on unit to monitor additional needs No INTERNATIONAL MARKETING MANAGER services indicated post discharge. Diet Recommendations: SOLIDS: L4 Puree (Baseline per patient) LIQUIDS: Thin Liquids MEDICATIONS: Crushed in applesauce or pudding (baseline) SUPERVISION: 1:1 supervision/assist Reflux Strategies: - [place] upright for all PO (tilt bed as needed) and remain upright 30-60 min after - Elevate HOB at all times as tolerated SUBJECTIVE: Patient received alert/awake, lethargic, agreeable to evaluation Pain Reported? None Baseline Swallow Function: Patient reports puree diet at baseline due to dentition and preference She states mac and cheese is not pureed but all other foods are (including meats) PO Trials Assessed: IDDSI 0 Thin Liquids - 2 ounces IDDSI 4 Puree Solid - pudding, 2 ounces Oral Mechanism Examination: Oral hygiene is poor, sparse upper dentition only, thick secretions cleared with swab Cranial Nerve Assessment: CN V ? Trigeminal Facial Sensation WNL Jaw Strength/ROM WNL ?WNL CN VII- Facial WNL labial ROM, strength, coordination. WNL lingual sensation WNL CN IX ? Glossopharyngeal WNL palatal elevation with phonation. No evidence of nasal emissions WNL CN X ? Vagus WNL Vocal quality and volume. Strong/sharp volitional cough WNL CX XII ? Hypoglossal WNL lingual ROM, strength, coordination WNL Oral Phase Findings: WFL for trials assessed Increased work of breath with need to pause between spoonfuls for replenishing breaths Pharyngeal Phase Findings: WFL Single swallow per bite/sip Denied stasis No coughing/throat clearing/change in vocal quality *approximately 60 seconds after finishing PO, pt states 'it's coming back up' with belching ASSESSMENT: Further INTERNATIONAL MARKETING MANAGER Services indicated. Patient to be followed while on unit to monitor for further INTERNATIONAL MARKETING MANAGER needs, especially in the setting of fluctuating respiratory status Recommendation at Discharge: No INTERNATIONAL MARKETING MANAGER needs identified post discharge Recommended Procedures: N/A - Recommend consideration of pharmaceutical management of esophageal dysmotility Education Provided to: Nursing, Patient, Hospitalist Topics Addressed: INTERNATIONAL MARKETING MANAGER findings and recommendations PLAN: Frequency: Monitor (1-2x/week for 1 week) Goals: Snf Goals: Patient will remain free from aspiration-related illness, malnutrition, and dehydration. Short Term Goals: Patient will tolerate Puree Diet and Thin liquids without overt s/s aspiration across 2/2 visits. INTERNATIONAL MARKETING MANAGER CPT Code: 48047 Clinical Swallowing Evaluation TOTAL TIME: 4945-9516 30 Minutes
[2024-08-17] MEDS: Albuterol HFA 8 GM 60 PUFF INH IH (21:07)
[2024-08-17] MEDS: OLANZapine 10 MG TAB 20 MG PO (21:07)
[2024-08-18] VITALS (43 sets, daily range): BP systolic 118–137; BP diastolic 83–101; PULSE 92–128; RESP 16–36; TEMP 37–37.5; O2SAT 88–97
[2024-08-18] MEDS: Enoxaparin 40 MG/0.4 ML SYR SC ×2 (02:07→14:28)
[2024-08-18] MEDS: DOXYCYCLINE 100 MG in Normal Saline 100 ML IVPB ×2 (02:07→14:19)
[2024-08-18] MEDS: AMPICILLIN/SULBACTAM 3 GM in Normal Saline 100 ML IVPB ×3 (04:09→20:36)
[2024-08-18] MEDS: Normal Saline 1,000 ML 80 ML IV ×2 (04:45→20:29)
[2024-08-18 07:07] LABS: Abs Immature Grans 0.03 10^3/uL (0.0-0.06); Absolute Eosinophil Count 0.24 10^3/uL (0.0-0.7); Absolute Lymphocyte Count 1.59 10^3/uL (1.2-3.4); Absolute Monocyte Count 1.22 10^3/uL (0.1-0.8); Basophils % 0.6 %; Eosinophils % 2.2 %; HCT 41.2 % (36.0-46.0); HGB 12.3 g/dL (11.2-15.7); Immature Grans % 0.3 %; Lymphocytes % 14.6 %; MCH 23.8 pg (27.0-33.0); MCHC 29.9 % (32.0-36.0); MCV 80 fL (80-95); MPV 11.3 fL (8.0-11.0); Monocytes % 11.2 %; Neutrophils % 71.1 %; Platelet Count 336 10^3/uL (130-400); RBC 5.17 10^6/uL (3.93-5.22); RDW 14.9 % (11.7-14.6); RDW-SD 43.1 fL; WBC 10.89 10^3/uL (4.4-10.8)
[2024-08-18 07:14] LABS: Absolute Basophil Count 0.07 10^3/uL (0.0-0.2); Absolute Neutrophil Count 7.74 10^3/uL (1.2-6.7)
[2024-08-18 07:23] LABS: Anion Gap 7.5 mmol/L (3-11); BUN 13 mg/dL (7-18); CO2 33.5 mmol/L (21.0-32.0); CREATININE 0.8 mg/dL (0.55-1.02); Calcium 9.2 mg/dL (8.5-10.1); Chloride 108 mmol/L (98-107); Estimated GFR 79.71 (mL/min/1.73m2); Glucose 117 mg/dL (74-106); Sodium 149 mmol/L (136-145)
[2024-08-18 07:26] LABS: Potassium 2.9 mmol/L (3.5-5.1)
[2024-08-18] MEDS: Budesonide/Formoterol 160/4.5 6 GM 60 PUFF INH IH ×2 (08:07→20:29)
[2024-08-18] MEDS: Albuterol HFA 8 GM 60 PUFF INH IH ×2 (08:07→20:30)
--- NOTE | 2024-08-18 09:22 | PDOC.CMPRO ---
Date of service: 08/18/24 Time of Service: 09:22 Care Management Progress Note Progress Note Text Progress Note Text: Christie remains in ICU. Her O2 requirement went up overnight, and she is now requiring 68% O2 at a rate of 60L/min. She was sitting up in the bed, visiting with her sister when CM met with her today. Christie stated that she is feeling better, and was asking when she would be discharged home. She did look brighter than yesterday, despite her increased O2 need. Christie denied that she had any needs. JAVIER Willis at the [facility], called to check on Christie today. Christie was very pleased to know this. Discharge Potential Discharge Needs: PCP F/U Appt Anticipated Barriers to Discharge: None Identified Patient/Family Education Needs: Review discharge instructions, discuss Ask Me Three Transportation: RCT RCT Transportation: Wheel chair van Plan: Anticipate Christie will be discharged back to the [facility], where she resides, when medically ready. She will follow up with facility providers and plan of care and transport via RCT. CM will follow and continue to assess for discharge needs. Social Determinants of Health Screening Social Determinants of Health last assessed: 08/18/24 Will the Patient Participate in the Screening?: Yes Do you worry about having a steady place to live?: no Problems where you live: no known problems In the past 12 months, have you had to go without electric, gas, oil or water in your home?: no Have you or anyone in your house had to go without enough food to eat?: no Has lack of transportation kept you from medical appointments or from doing things needed for daily living?: no Has anyone in your life made you feel unsafe or unsupported?: no How hard is it for you to pay for the very basics like food, housing, medical care, and heating? Would you say it is:: Not hard at all Do you want help finding or keeping work or a job?: I do not need or want help If for any reason you need help with day-to-day activities such as bathing, preparing meals, shopping, managing finances, etc., do you get the help you need?: I don?t need any help How often do you feel lonely or isolated from those around you?: Never Do you speak a language other than [place] at home?: No Does the patient want assistance with any of the above?: No Social Determinants of Health Comments(SDOH Details): lives at [facility]
[2024-08-18] MEDS: Normal Saline Flush 10 ML SYR IVP ×2 (14:29→20:53)
[2024-08-18] MEDS: Cholestyramine/Aspartame PKT 1 EACH PO (14:31)
[2024-08-18] MEDS: Cholecalciferol (Vitamin D3) 1,000 UNIT TAB 2000 UNITS PO (14:35)
[2024-08-18] MEDS: Potassium Chloride Liquid 20 MEQ PKT 40 MEQ PO (14:35)
[2024-08-18] MEDS: Escitalopram 10 MG TAB PO (14:36)
[2024-08-18] MEDS: Omeprazole 20 MG CAPCR PO (14:36)
[2024-08-18] MEDS: Mirabegron 25 MG TABCR PO (14:36)
[2024-08-18] MEDS: amLODIPine 5 MG TAB PO (14:37)
--- NOTE | 2024-08-18 15:50 | SPP_ITS ---
Date of service: 08/18/24 Time of Service: 11:30 Subjective OIL AND GAS SUPERINTENDENT contacting patient at bedside to re-evaluate liquid tolerance this date given RN report of coughing with thin liquids (milk) during breakfast. RN also provided thickened liquids and reported improved tolerance with this after initial coughing episode with breakfast. Objective/Assessment/Plan Objective Treatment Techniques & Outcomes: PO Trials Assessed: IDDSI 0 Thin Liquids: via tsp x 4, via self-selected single straw sips x ~4-5 oz Oral Phase Findings: WFL for trials assessed Increased work of breath with need to pause between spoonfuls for replenishing breaths Pharyngeal Phase Findings: WFL Single swallow per bite/sip Denied stasis No coughing/throat clearing/change in vocal quality No esophageal sx observed or reported by patient Respiratory observations: Patient maintains HFNC throughout trials, with minimal fluctuation in RR (16-18) or SpO2 (90-91). Per chart review, flow rate increased to 60L/min and 68% O2 since yesterday. Counterintelligence Analyst Goals: Patient will remain free from aspiration-related illness, malnutrition, and dehydration. Short Term Goals: Patient will tolerate Puree Diet and Thin liquids without overt s/s aspiration across 2/2 visits. Assessment OIL AND GAS SUPERINTENDENT -re-evaluating liquids tolerance this date given nursing report of poor thin liquids tolerance earlier this morning with significant coughing episodes. While it is possible that increased oxygen needs/flow rate since yesterday could decrease liquid tolerance, OIL AND GAS SUPERINTENDENT is not appreciating any decreased tolerance at time of visit mid-day and patient is without any s/sx aspiration or penetration during observed trials at bedside. It is also possible observed coughing earlier this date could have been a function of reduced liquid tolerance in setting of reflux when taken in conjunction with solids at breakfast, or it may have been incidental coughing due to poor respiratory status. Do not recommend any changes to diet recommendations at this time, but OIL AND GAS SUPERINTENDENT will continue to check in with RN this date to ensure patient maintains good tolerance of liquids. Diet Recommendations: SOLIDS: L4 Puree (Baseline per patient) LIQUIDS: Thin Liquids MEDICATIONS: Crushed in applesauce or pudding (baseline) SUPERVISION: 1:1 supervision/assist Reflux Strategies: - [place] upright for all PO (tilt bed as needed) and remain upright 30-60 min after - Elevate HOB at all times as tolerated - Smaller/More frequent meals Plan Plan: Monitor (1-2x/week for 1 week) Total time spent in direct patient care: 15 min (11:30-11:45)
--- NOTE | 2024-08-18 15:50 | PGE_ITS ---
Date of Service Date of service: 08/18/24 Time of Service: 15:50 Assessment and Plan Assessment and plan (1) Acute hypoxic respiratory failure: Status: Acute Assessment and plan: - remains on hiflo NS as noted above - continue ICU monitoring, hopefully can titrate to NC soon - treatment of underlying cause as noted below (2) Aspiration pneumonia: Status: Ruled-out Assessment and plan: - continue empiric abx with Unasyn and doxycycline, seems to be clinically imp roving along with improved leukocytosis - appreciate speech eval, at baseline and diet has been adjusted (pureed/thins with 1:1). continue aspiration precautions - consideration to transitioning to PO once patient's O2 needs have improved (3) Schizophrenia: Status: Chronic Assessment and plan: - seems to be well controlled at my visit today - continue Lexapro and mirabegron as ordered - prn ativan for agitation Subjective Subjective Interval history since last seen: Seen and examined. Remains in the ICU. Much more alert today, easy to engage in conversation and seems very pleasant. Despite this, required increase in her hiflo to 60L with sat of 94%. other vitals stable. Exam Const General: cooperative, comfortable and no acute distress Orientation: alert and awake Chest Chest: normal inspection of the chest Resp Effort & Inspection: normal respiratory effort Auscultation: rales (both bases) Cardio Rate: regular rate Rhythm: regular rhythm Heart Sounds: S1 normal and S2 normal GI Palpation: soft and nontender Percussion: normal to percussion Auscultation: normal bowel sounds Neuro General: patient alert and patient awake Cranial Nerves: CN's II-XI intact bilaterally Objective Last Vital Signs Temp 37.5 C 08/18/24 14:59 Pulse 104 H 08/18/24 14:29 Resp 23 08/18/24 14:29 BP 126/86 08/18/24 14:29 Pulse Ox 94 08/18/24 14:29 Laboratory Results - last 24 hr 08/18/24 05:30 WBC 10.89 H RBC 5.17 Hgb 12.3 Hct 41.2 MCV 80 MCH 23.8 L MCHC 29.9 L RDW 14.9 H Plt Count 336 MPV 11.3 H Immature Gran % 0.3 Neutrophils % 71.1 Lymphocytes % 14.6 Monocytes % 11.2 Eosinophils % 2.2 Basophils % 0.6 Nucleated RBC % 0.0 Absolute Neutrophils 7.74 H Absolute Lymphocytes 1.59 Absolute Monocytes 1.22 H Absolute Eosinophils 0.24 Absolute Basophils 0.07 Sodium 149 H Potassium 2.9 L* Chloride 108 H Carbon Dioxide 33.5 H Anion Gap 7.5 BUN 13 Creatinine 0.8 Est GFR (CKD-EPI 2020) 79.71 Glucose 117 H Calcium 9.2 Time Spent with Patient Time Spent with Patient: <25 minutes Time was spent: preparing to see the patient(eg.review tests), ordering medications,tests, procedures, indepentently interpreting results and care coordination
[2024-08-18] MEDS: Torsemide 20 MG TAB 80 MG PO (16:13)
[2024-08-18] MEDS: Benzonatate 100 MG CAP 200 MG PO ×2 (16:13→20:44)
--- NOTE | 2024-08-18 17:15 | DI.RAD_ITS ---
Exam(s) XR PORTABLE CHEST AP EXAM: XR PORTABLE CHEST AP CLINICAL HISTORY: SOB, pna FU TECHNIQUE: 2D digital imaging was performed of the chest. One image was obtained. An AP view was ob tained. COMPARISON: CR,XR XR PORTABLE CHEST AP from 08/17/2024 FINDINGS: Examination limited by patient positioning. The patient is rotated with poor inspiration. MEDIASTINUM: Normal. HEART: Heart size is at the upper limits of normal. PULMONARY VASCULATURE: Normal. LUNGS: The left hemidiaphragm and left lung base is poorly visualized. A left basilar infiltrate is suspected. Atelectatic changes are seen in the right lung base. PLEURAL SPACE: There appear to be small bilateral pleural effusions. BONE:Within normal limits for the patient's age. OTHER FINDINGS:Normal. IMPRESSION: 1. There does appear to be slight progression of the opacity in the left lung base compared to the pr ior examination. 2. Bilateral pleural effusions. 3. Heart size is at the upper limits of normal in size. DATA REPOSITORY: RADIATION DOSE DELIVERED:
[2024-08-18] MEDS: OLANZapine 10 MG TAB 20 MG PO (20:44)
[2024-08-18] MEDS: Polyethylene Glycol 3350 17 GM PACKET PO (20:52)
[2024-08-18] MEDS: Bisacodyl 5 MG TABEC PO (23:42)
[2024-08-19] VITALS (60 sets, daily range): BP systolic 109–163; BP diastolic 71–112; PULSE 73–131; RESP 16–36; TEMP 36–38.1; O2SAT 83–96
[2024-08-19] MEDS: AMPICILLIN/SULBACTAM 3 GM in Normal Saline 100 ML IVPB ×4 (02:21→20:11)
[2024-08-19] MEDS: DOXYCYCLINE 100 MG in Normal Saline 100 ML IVPB ×2 (02:21→16:30)
[2024-08-19] MEDS: Enoxaparin 40 MG/0.4 ML SYR SC ×2 (02:22→15:11)
[2024-08-19 06:02] LABS: Abs Immature Grans 0.04 10^3/uL (0.0-0.06); Absolute Basophil Count 0.06 10^3/uL (0.0-0.2); Absolute Eosinophil Count 0.22 10^3/uL (0.0-0.7); Absolute Lymphocyte Count 1.85 10^3/uL (1.2-3.4); Absolute Monocyte Count 1.05 10^3/uL (0.1-0.8); Absolute Neutrophil Count 6.23 10^3/uL (1.2-6.7); Basophils % 0.6 %; Eosinophils % 2.3 %; HCT 39.9 % (36.0-46.0); HGB 11.9 g/dL (11.2-15.7); Immature Grans % 0.4 %; Lymphocytes % 19.6 %; MCH 23.8 pg (27.0-33.0); MCHC 29.8 % (32.0-36.0); MCV 80 fL (80-95); Monocytes % 11.1 %; Platelet Count 303 10^3/uL (130-400); RDW-SD 43.6 fL; WBC 9.45 10^3/uL (4.4-10.8)
[2024-08-19 06:25] LABS: Anion Gap 8.5 mmol/L (3-11); BUN 15 mg/dL (7-18); CO2 35.5 mmol/L (21.0-32.0); CREATININE 0.8 mg/dL (0.55-1.02); Calcium 9.1 mg/dL (8.5-10.1); Chloride 107 mmol/L (98-107); Estimated GFR 79.71 (mL/min/1.73m2); Glucose 120 mg/dL (74-106); Magnesium 1.5 mg/dL (1.8-2.4); Sodium 151 mmol/L (136-145)
[2024-08-19] MEDS: Omeprazole 20 MG CAPCR PO (06:56)
[2024-08-19] MEDS: Albuterol HFA 8 GM 60 PUFF INH IH (08:08)
[2024-08-19] MEDS: Budesonide/Formoterol 160/4.5 6 GM 60 PUFF INH IH ×2 (08:08→20:48)
--- NOTE | 2024-08-19 08:57 | CMPROGNOTE_ITS ---
Date of service: 08/19/24 Time of Service: 08:57 Care Management Progress Note Progress Note Text Progress Note Text: Christie is still on quite a bit of O2, and is breathing rather fast, so is still requiring ICU level of care, but she remains very pleasant. Her cough is now productive, and she feels that this is a good sign. She was very happy to hear that the SW at the [facility] has been checking on her and that they miss her. Discharge Potential Discharge Needs: PCP F/U Appt Anticipated Barriers to Discharge: None Identified Patient/Family Education Needs: Review discharge instructions, discuss Ask Me Three Transportation: RCT RCT Transportation: Wheel chair van Plan: Anticipate Christie will be discharged back to the [facility], where she resides, when medically ready. She will follow up with facility providers and plan of care and transport via RCT. CM will follow and continue to assess for discharge needs. Social Determinants of Health Screening Social Determinants of Health last assessed: 08/19/24 Will the Patient Participate in the Screening?: Yes Do you worry about having a steady place to live?: no Problems where you live: no known problems In the past 12 months, have you had to go without electric, gas, oil or water in your home?: no Have you or anyone in your house had to go without enough food to eat?: no Has lack of transportation kept you from medical appointments or from doing things needed for daily living?: no Has anyone in your life made you feel unsafe or unsupported?: no How hard is it for you to pay for the very basics like food, housing, medical care, and heating? Would you say it is:: Not hard at all Do you want help finding or keeping work or a job?: I do not need or want help If for any reason you need help with day-to-day activities such as bathing, preparing meals, shopping, managing finances, etc., do you get the help you need?: I don?t need any help How often do you feel lonely or isolated from those around you?: Never Do you speak a language other than [place] at home?: No Does the patient want assistance with any of the above?: No Social Determinants of Health Comments(SDNC Details): lives at the [facility]
[2024-08-19] MEDS: Cholecalciferol (Vitamin D3) 1,000 UNIT TAB 2000 UNITS PO (09:15)
[2024-08-19] MEDS: amLODIPine 5 MG TAB PO (09:15)
[2024-08-19] MEDS: Benzonatate 100 MG CAP 200 MG PO ×3 (09:15→20:10)
[2024-08-19] MEDS: Docusate Sodium 100 MG CAP PO (09:16)
[2024-08-19] MEDS: Mirabegron 25 MG TABCR PO (09:18)
[2024-08-19] MEDS: Spironolactone 25 MG TAB PO (09:18)
[2024-08-19] MEDS: Escitalopram 10 MG TAB PO (09:28)
[2024-08-19] MEDS: Torsemide 20 MG TAB 80 MG PO ×2 (12:10→19:02)
[2024-08-19] MEDS: Normal Saline Flush 10 ML SYR IVP ×3 (12:11→20:11)
--- NOTE | 2024-08-19 12:30 | W.PALPGNOTE ---
Date of service: 08/19/24 Time of Service: 08:00 Assessment and Plan Assessment and plan (1) Counseling regarding advance care planning and goals of care: Status: Acute (2) Schizophrenia: Status: Chronic (3) Aspiration pneumonia: Status: Ruled-out (4) Acute hypoxic respiratory failure: Status: Acute Assessment and plan: Cheryle continues on supplemental oxygen. She is working with respiratory to hopefully decrease her congestion and help move secretions. I understand nursing concern. This has not been a new problem for Cheryle and staff at the [facility] has been working diligently to help her. This pattern is repeating itself. I have calls into both Netta and Tiny her sisters, to speak with them about long-term goals. Await our conversations regarding halfway goals and will report it in an addendum Cheryle's numbers look better than her physical exam. I will continue to follow Subjective Subjective Interval history since last seen: Cheryle reports that she is feeling good. She remembers a speech therapist person coming in. Respiratory is quite concerned about her upper airway congestion and wants to work on loosening up her secretions Nursing is concerned because speech states that she is doing well but yet she coughs and gags when she tries to eat. Nursing is reluctant to feed her Exam Narrative Exam Narrative: Cheryle is her smiling self. She is cooperative with the exam. Her lungs sound like they are full of congestion and rales throughout. Both anterior and posterior. This is not far from her baseline. Her heart is regular. Staff reports that her mood is good. Objective Last Vital Signs Temp 99.0 F 08/19/24 00:38 Pulse 102 H 08/19/24 04:01 Resp 29 H 08/19/24 04:01 BP 114/82 08/19/24 04:01 Pulse Ox 92 08/19/24 04:01 Laboratory Results - last 24 hr 08/19/24 05:23 WBC 9.45 RBC 5.00 Hgb 11.9 Hct 39.9 MCV 80 MCH 23.8 L MCHC 29.8 L RDW 15.0 H Plt Count 303 MPV 11.0 Immature Gran % 0.4 Neutrophils % 66.0 Lymphocytes % 19.6 Monocytes % 11.1 Eosinophils % 2.3 Basophils % 0.6 Nucleated RBC % 0.0 Absolute Neutrophils 6.23 Absolute Lymphocytes 1.85 Absolute Monocytes 1.05 H Absolute Eosinophils 0.22 Absolute Basophils 0.06 Sodium 151 H Potassium 3.0 L Chloride 107 Carbon Dioxide 35.5 H Anion Gap 8.5 BUN 15 Creatinine 0.8 Est GFR (CKD-EPI 2020) 79.71 Glucose 120 H Calcium 9.1 Magnesium 1.5 L
--- NOTE | 2024-08-19 12:52 | W.PM.PROGNOT ---
Date of Service Date of service: 08/19/24 Time of Service: 12:52 Assessment and Plan Assessment and plan (1) Acute hypoxic respiratory failure: Status: Acute Assessment and plan: - remains on hiflo NS as noted above - continue ICU monitoring, continue to titrate hiflo as able - treatment of underlying cause as noted below (2) Aspiration pneumonia: Status: Ruled-out Assessment and plan: - continue empiric abx with Unasyn and doxycycline, leukocytosis has not resolved - continue SPT recommended diet of pureed/thins with supervision. i did d/w SPT at bedside today. - will have PT/OT eval, mostly for transfers - unfortunately, there is not much more we can do to improve aspiration outside of placing g-tube for feeds which is not advisable for this patient. i did d/w palliative care at bedside and we are in agreement on this. she will touch base with patient's sister. patient was previously on hospice but was taken off after she improved, i think returning to that status should be considered after she is discharged so she does not return to the hospital. (3) Schizophrenia: Status: Chronic Assessment and plan: - continues to be stable - continue Lexapro and mirabegron as ordered - prn ativan for agitation Subjective Subjective Interval history since last seen: Seen and examined. Patient is awake/alert, pleasant. We discussed home functional status, typically uses wheelchair but does self transfers. There has been ongoing concern re: swallowing, patient tends to sound like she is aspirating when eating. SPT has seen patient on multiple occasions and feels this is baseline, issue is more GI/motility than oropharyngeal. STEAM[employer]END[employer]RO[employer] has been able to decrease her hiflo O2 today. Currently on 60L HF with sat 92%. Exam Const General: cooperative, comfortable and no acute distress Nutritional Appearance: well nourished Orientation: alert, awake and oriented x3 Neck Neck: normal visual inspection Chest Chest: normal inspection of the chest Resp Effort & Inspection: normal respiratory effort Other: diminished BS with some crackles at bases Cardio Rate: regular rate Rhythm: regular rhythm and abnormal rhythm Heart Sounds: S1 normal and S2 normal GI Inspection: normal to inspection Palpation: soft and nontender Neuro Cranial Nerves: CN's II-XI intact bilaterally Extrem General: normal to inspection Objective Last Vital Signs Temp 37.2 C 08/19/24 00:38 Pulse 96 H 08/19/24 12:01 Resp 25 H 08/19/24 12:01 BP 124/86 08/19/24 12:01 Pulse Ox 86 L 08/19/24 12:01 Laboratory Results - last 24 hr 08/19/24 05:23 WBC 9.45 RBC 5.00 Hgb 11.9 Hct 39.9 MCV 80 MCH 23.8 L MCHC 29.8 L RDW 15.0 H Plt Count 303 MPV 11.0 Immature Gran % 0.4 Neutrophils % 66.0 Lymphocytes % 19.6 Monocytes % 11.1 Eosinophils % 2.3 Basophils % 0.6 Nucleated RBC % 0.0 Absolute Neutrophils 6.23 Absolute Lymphocytes 1.85 Absolute Monocytes 1.05 H Absolute Eosinophils 0.22 Absolute Basophils 0.06 Sodium 151 H Potassium 3.0 L Chloride 107 Carbon Dioxide 35.5 H Anion Gap 8.5 BUN 15 Creatinine 0.8 Est GFR (CKD-EPI 2020) 79.71 Glucose 120 H Calcium 9.1 Magnesium 1.5 L Time Spent with Patient Time Spent with Patient: <25 minutes Time was spent: preparing to see the patient(eg.review tests), ordering medications,tests, procedures, indepentently interpreting results and care coordination
[2024-08-19] MEDS: Acetaminophen 325 MG TAB 650 MG PO ×2 (16:16→23:01)
--- NOTE | 2024-08-19 20:00 | NUR.NOTE ---
Nursing Note: Pt had large soft bm incontinent episode, cleaned up and pericare done, , new purewick applied, pt complaining of back pain, anxious at same time sinus tachycardia 130-140, and RR=30-40, pt repositioned in bed, Dr Lawrence in to see pt, updated on pt's condition, new orders given, see MAR.
[2024-08-19] MEDS: OLANZapine 10 MG TAB 20 MG PO (20:10)
[2024-08-19] MEDS: HYDROmorphone 2 MG/ML SYR 0.5 MG IVP ×2 (21:25→22:28)
[2024-08-19] MEDS: Normal Saline 500 ML IV (21:26)
[2024-08-19] MEDS: POTASSIUM CHLORIDE 20 MEQ/100 ML BAG 50 MEQ IV_INF (22:26)
[2024-08-19] MEDS: MAGNESIUM SULFATE 2 GM/50 ML BAG IV_INF (22:26)
[2024-08-20] VITALS (37 sets, daily range): BP systolic 123–155; BP diastolic 80–114; PULSE 96–137; RESP 5–34; TEMP 2.7–37.4; O2SAT 83–94
[2024-08-20] MEDS: Albuterol HFA 8 GM 60 PUFF INH IH ×3 (01:05→19:38)
[2024-08-20] MEDS: Normal Saline 1,000 ML 80 ML IV (01:08)
[2024-08-20] MEDS: AMPICILLIN/SULBACTAM 3 GM in Normal Saline 100 ML IVPB ×4 (01:10→19:39)
[2024-08-20] MEDS: Enoxaparin 40 MG/0.4 ML SYR SC ×2 (01:10→14:29)
[2024-08-20] MEDS: HYDROmorphone 2 MG/ML SYR 0.5 MG IVP ×5 (01:30→21:41)
[2024-08-20] MEDS: Normal Saline Flush 10 ML SYR IVP ×3 (01:30→20:09)
[2024-08-20] MEDS: DOXYCYCLINE 100 MG in Normal Saline 100 ML IVPB ×2 (02:37→14:29)
--- NOTE | 2024-08-20 06:39 | NUR.NOTE ---
Nursing Note: Dr Ramirez in to see pt, updated on pt's condition, discussed overnight events, no further orders given.
[2024-08-20 06:52] LABS: Abs Immature Grans 0.05 10^3/uL (0.0-0.06); Absolute Basophil Count 0.05 10^3/uL (0.0-0.2); Absolute Eosinophil Count 0.13 10^3/uL (0.0-0.7); Absolute Monocyte Count 0.28 10^3/uL (0.1-0.8); Absolute Neutrophil Count 7.95 10^3/uL (1.2-6.7); Basophils % 0.5 %; Eosinophils % 1.4 %; Immature Grans % 0.5 %; Lymphocytes % 11.5 %; MCH 23.5 pg (27.0-33.0); MCHC 29.5 % (32.0-36.0); MCV 80 fL (80-95); MPV 11.1 fL (8.0-11.0); Monocytes % 2.9 %; Neutrophils % 83.2 %; Platelet Count 327 10^3/uL (130-400); RBC 5.53 10^6/uL (3.93-5.22); RDW 15.1 % (11.7-14.6); RDW-SD 43.6 fL; WBC 9.56 10^3/uL (4.4-10.8)
[2024-08-20 07:09] LABS: Anion Gap 6.1 mmol/L (3-11); BUN 15 mg/dL (7-18); CO2 36.9 mmol/L (21.0-32.0); CREATININE 0.7 mg/dL (0.55-1.02); Calcium 9.2 mg/dL (8.5-10.1); Chloride 108 mmol/L (98-107); Estimated GFR 93.56 (mL/min/1.73m2); Glucose 147 mg/dL (74-106); Sodium 151 mmol/L (136-145)
--- NOTE | 2024-08-20 07:38 | PCPN_ITS ---
Date of service: 08/20/24 Time of Service: 07:38 Assessment and Plan Assessment and plan (1) Schizophrenia: Status: Chronic (2) Aspiration pneumonia: Status: Ruled-out Assessment and plan: Cheryle never complaints. I am not surprised that she told me she was feeling good. Her vitals tell a different story. Labs show that she has low potassium. This will need to be replaced She has not had a urine documented since 2 weeks ago. I would recommend getting a urine since things are definitely different than what they have been She may need to have an updated chest x-ray. I did speak with Netta yesterday. Netta and her brother and sister were both thinking that this was something that was repeating itself i.e. her aspiration pneumonia. We did talk briefly about comfort measures only when she returns to the [facility]. Netta is going to talk to the family and then we will have meeting. I did speak to Christie about this today. She thought that it was a good idea to stay at the [facility] and not be transferred if she got sick. I am very happy that the Dilaudid was helpful but please remember to use Ativan as needed to avoid Christie going into a manic episode I was unable to locate the walker when I first walked in the room and spoke with Cheryle. Nursing directed me to where it was. I urged staff to get her up and get her moving is much as possible Subjective Subjective Interval history since last seen: Cheryle states that she is feeling fine. She wanted to be certain that she had a walker available to her so that she could get up and get moving. Nursing states that she had 0.5 mg of Dilaudid and it was very helpful. Her vitals are elevated Exam Narrative Exam Narrative: Cheryle looks better and sounds better than she did yesterday but her vitals do not. (Yesterday it was the opposite) she is having less upper respiratory sounds. She is breathing deeper. Her heart is tachycardic. Legs 1+ edema. Objective Last Vital Signs Temp 99.0 F 08/19/24 20:46 Pulse 113 H 08/20/24 06:01 Resp 29 H 08/20/24 06:01 BP 155/114 H 08/20/24 06:01 Pulse Ox 88 L 08/19/24 15:18 Laboratory Results - last 24 hr 08/20/24 05:35 WBC 9.56 RBC 5.53 H Hgb 13.0 Hct 44.0 MCV 80 MCH 23.5 L MCHC 29.5 L RDW 15.1 H Plt Count 327 MPV 11.1 H Immature Gran % 0.5 Neutrophils % 83.2 Lymphocytes % 11.5 Monocytes % 2.9 Eosinophils % 1.4 Basophils % 0.5 Nucleated RBC % 0.0 Absolute Neutrophils 7.95 H Absolute Lymphocytes 1.10 L Absolute Monocytes 0.28 Absolute Eosinophils 0.13 Absolute Basophils 0.05 Sodium 151 H Potassium 3.0 L Chloride 108 H Carbon Dioxide 36.9 H Anion Gap 6.1 BUN 15 Creatinine 0.7 Est GFR (CKD-EPI 2020) 93.56 Glucose 147 H Calcium 9.2 Magnesium 2.0 Objective Narrative Objective Narrative: I did review her diagnostic studies. Her last chest x-ray was 08/18. She has not had a urine
[2024-08-20] MEDS: Budesonide/Formoterol 160/4.5 6 GM 60 PUFF INH IH ×2 (08:00→20:10)
[2024-08-20] MEDS: Omeprazole 20 MG CAPCR PO (08:13)
[2024-08-20] MEDS: Cholecalciferol (Vitamin D3) 1,000 UNIT TAB 2000 UNITS PO (08:13)
[2024-08-20] MEDS: Escitalopram 10 MG TAB PO (08:13)
[2024-08-20] MEDS: Benzonatate 100 MG CAP 200 MG PO ×3 (08:13→19:38)
[2024-08-20] MEDS: amLODIPine 5 MG TAB PO (08:13)
[2024-08-20] MEDS: Mirabegron 25 MG TABCR PO (08:13)
--- NOTE | 2024-08-20 08:35 | W.SPSTP ---
Date of service: 08/20/24 Time of Service: 08:08 Subjective [employer] contacting patient at bedside with breakfast tray and administration of meds. Patient alert and conversant. Objective: PO Trials Assessed: IDDSI 0 Thin Liquids: via straw, 4 ounces milk + 2 ounces soda IDDSI 4 Puree: Yogurt Oral Phase Findings: WFL for trials assessed Increased work of breath with need to pause between spoonfuls for replenishing breaths Pharyngeal Phase Findings: Single swallow per bite/sip Cough x 2 with yogurt, strong cough reflex No overt s/s aspiration with thins No esophageal sx observed or reported by patient Respiratory observations: Patient maintains HFNC throughout trials, 60L/min 40%O2. Vital signs stable, SpO2 88% Jail Goals: Patient will remain free from aspiration-related illness, malnutrition, and dehydration. Short Term Goals: Patient will tolerate Puree Diet and Thin liquids without overt s/s aspiration across 2/2 visits. Assessment [employer] WORKER re-evaluating PO tolerance with breakfast tray. Nursing received report of need to thicken liquids last evening, though patient tolerating thin liquids without issue today. Continue to recommend baseline dysphagia diet- Puree solids and thin liquids. High suspicion for recurrent aspiration to be due to chronic esophageal dysphagia/reflux pneumonitis with known esophageal dysmotility. Though suspect at least mild acute oral pharyngeal dysphagia in the setting of deconditioned status and respiratory needs. Continue to recommend strict aspiration and reflux precautions as outlined below. Diet Recommendations: SOLIDS: L4 Puree (Baseline per patient) LIQUIDS: Thin Liquids MEDICATIONS: Crushed in applesauce or pudding (baseline) SUPERVISION: 1:1 supervision/assist with meals Reflux Strategies: - [place] upright for all PO (tilt bed as needed) and remain upright 30-60 min after - Elevate HOB at all times as tolerated - Smaller/More frequent meals Plan Monitor (1-2x/week for 1 week) Total time spent in direct patient care: 22 min (8:08-8:30)
[2024-08-20] MEDS: DEXTROSE 5%-WATER 1,000 ML 80 ML IV ×2 (09:06→19:58)
[2024-08-20] MEDS: POTASSIUM CHLORIDE 20 MEQ/100 ML BAG 50 MEQ IV_INF (09:07)
--- NOTE | 2024-08-20 09:19 | PDOC.CMPRO ---
Date of service: 08/20/24 Time of Service: 09:19 Care Management Progress Note Progress Note Text Progress Note Text: Christie was lying in bed with the HOB elevated when CM met with her. She is awake and very polite, conversation is somewhat limited while wearing Hi-Tim O2. She states that she feels good. Per nursing, Christie O2 requirements have been increasing throughout the day. She is currently O2 Sat is 91% on 60L, palliative is following. Discharge Anticipated Barriers to Discharge: Medical Status Patient/Family Education Needs: Review discharge instructions, discuss Ask Me Three Transportation: RCT RCT Transportation: Wheel chair van Plan: Anticipate Christie will be discharged back to the [facility], where she resides, when medically ready. She will follow up with facility providers and plan of care and transport via RCT. CM will follow and continue to assess for discharge needs. Social Determinants of Health Screening Social Determinants of Health last assessed: 08/20/24 Will the Patient Participate in the Screening?: Yes Do you worry about having a steady place to live?: no Problems where you live: no known problems In the past 12 months, have you had to go without electric, gas, oil or water in your home?: no Have you or anyone in your house had to go without enough food to eat?: no Has lack of transportation kept you from medical appointments or from doing things needed for daily living?: no Has anyone in your life made you feel unsafe or unsupported?: no How hard is it for you to pay for the very basics like food, housing, medical care, and heating? Would you say it is:: Not hard at all Do you want help finding or keeping work or a job?: I do not need or want help If for any reason you need help with day-to-day activities such as bathing, preparing meals, shopping, managing finances, etc., do you get the help you need?: I don?t need any help How often do you feel lonely or isolated from those around you?: Never Do you speak a language other than Indonesian at home?: No Does the patient want assistance with any of the above?: No Social Determinants of Health Comments(SDOH Details): lives at the [facility]
[2024-08-20] MEDS: Cholestyramine/Aspartame PKT 1 EACH PO (10:56)
--- NOTE | 2024-08-20 13:04 | TELEFU_ITS ---
Date of service: 08/20/24 Time of Service: 13:04 Nutrition Note NOTE: Christie is a 69yo female admitted for treatment of PNA/acute hypoxic resp failure. Hx of class 3 obesity per current BMI of 43.4, GERD, CHF. Resides at the [facility] where her meals are prepared. Ordered for regular diet with puree solids and think liquids per her baseline. Speech saw this morning and recommendation was to continue current consistency. Weight has been stable as of recent. Labs today: Sodium 151, Potassium 3.0, chloride 108, GFR 93, on 08/17 total protein wnl and albumin 2.9 indcating more inflammation/fluid retention than protein inadequacies. Average intake at meals 50% or > A1C was 5.9.% last year - no diabetes meds at this time. fasting glucose 147 this morning which is the highest thus far during this admission. Nutrition Dx: stage 3 obesity related to inactivity and metabolic dysfunction as evidenced by BMI >40. No aggressive nutrition intervention planned at this time - will continue to monitor labs, po intake, diet consistencies. Time Spent in Nutritional Counseling and Treatment: 0
--- NOTE | 2024-08-20 13:12 | PT.INIE ---
PT Notes Visit Reasons: Pneumonia Inpatient Physical Therapy Evaluation Date: 08/20/2024 Referring Doctor: Dr James PT Orders: PT CONSULT: PT evaluation and treatment Precautions: Standard ,Oxygen dependent currently 60HLF , telemetry, Patient Profile/Admitting Diagnosis: Pt is 69 yo female presented to ED via EMS from [facility] with hypoxia and SOB, cough x several days prior to admission. Pt arrived on 10L/min via NC with sats in low 90s. Pt treated with IV ABx d/t infiltrates noted on CxR which likely are aspiration pneumonia . Pt was admitted to ICU for continued medical management. Her supplemental oxygen needs increased and pt is currently on 60 Liters via HLF NC with FiO2 47. Pt seen by Palliative Care and PT consult placed . 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 at [facility] on 08/25/2019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GERD (gastroesophageal reflux disease) (Chronic) Acute on chronic diastolic CHF (congestive heart failure) (Acute) Medical History (Updated 08/17/24 @ 11:30 by Jesus Manuel James DO) Low back pain Hip pain, bilateral Polycythemia Acute respiratory failure with hypoxia and hypercapnia Aspiration pneumonia Hematemesis Gastric ulcer Asthma Cholestasis Cirrhosis Urinary retention Catatonia associated with another mental disorder Advance directive on file Has end of life care plan Weakness on right side of face Hypokalemia Hypernatremia Hypomagnesemia Esophageal dysmotility Dysphagia Bradycardia Hypothyroidism Hypertension Cognitive developmental delay Babinski response Dyspnea KJ (acute kidney injury) Schizophrenia Surgical History H/[place] [facility]ast[facility] [place] History of bilateral tubal ligation History of hernia repair Social History/Home Situation:Pt resides at [facility] for LTC placement. She sleeps in her recliner and is able to perform step turn transfers to from her w/c with a FWW with 1 assist from staff. She reports she no longer is able to walk. Equipment Owned/DME: recliner, FWW, oxygen, wheelchair, nebs Subjective: Pt reports she is feeling better and is looking forward to standing/moving. She noted she was happy to try and sit at the edge of the bed. Objective: General Observation: female in seated position in bed with high liter flow oxygen in place Mental Status: Alert and oriented to person, place, date and situation Pain: denied Vital Signs: monitored continuously via telemetry by Nurse. ROM: Right Upper Extremity: WFL Left Upper Extremity: WFL Right Lower Extremity: WFL ankle to neutral DF Left Lower Extremity: WFL ankle to neutral DF Strength: Right Upper Extremity: >/= to 3/5 grossly regulator tester good Left Upper Extremity: >/= to 3/5 grossly regulator tester good Right Lower Extremity: grossly hip 3-/5, knee 3/5 ankle 3/5 Left Lower Extremity : grossly hip 3-/5, knee 3/5 ankle 3/5 Sensation: intact Bed Mobility/Transfers: supine to sit: mod A of 1 with HOB 45 degrees sit to supine : Mod A of 2 for LEs into bed boost: max A of 2 rolling Mod A of 1 with rails and HOB elevated d/t dyspnea when HOB flat sit to stand min A of 1 and SBA of 1 from elevated bed height Gait: Unable pt does not ambulate at baseline Balance: [] Static Sitting: Good Dynamic Sitting: Fair Static Standing: Fair+ with BUE support on FWW Dynamic Standing: Fair - with BUE support Special Tests: Mobility Limitations Standardized Measure [facility] AM-PAC 6 clicks Basic Mobility Inpatient Short Form: Raw Score: 12 CMS Score: 68.66% Informed Consent/Education: Patient instructed in purpose of PT consult and plan of care. Treatment: 88315 Side stepping with FWW mod A of 1 SBA of 1 3 x 2 steps stand static at FWW x 3 mins x 3 for incontinence care. Assessment: Patient is a 69 year old medically complex female referred to physical therapy services with the diagnosis of pneumonia . Patient presents with clinical signs and symptoms consistent with admitting diagnosis, as demonstrated by the following impairment level findings: 1. impaired strength/ motor control BUE/BLE major muscle groups 2. impaired balance sitting and standing 3. impaired activity tolerance 4. impaired pulmonary/ respiratory status requiring high liter flow supplemental oxygen Impairments are contributing to the following functional limitations: 1.AMPAC score. 2. decline in transfer skills 3. increased time to complete ADL/Mobility skills/tasks 4. risk for falls Patient is assessed as a Moderate 11063 complexity based on the following: History: pt is 69 yo female with complex current and past medical history as outlined above Examination: pt demonstrates impairments in strength, balance ,and functional activity tolerance with limitation in her ability to perform mobility and ADL tasks as stated above. Presentation: Evolving Decision Making: Moderate Goals: Goals X1 week 1. perform sit to stand with min A of 1 2. perform step turn transfer with FWW to chair with min A of 1 without s/s of increased dyspnea 3. tolerate out of bed to chair x 2 hours BID without increased work of breathing to increased functional activity tolerance Plan of Care/Treatment Plan: 1-2x/day, 7 days/week x 1 week. Plan of care has been reviewed with the [employer]ERAL [employer]IVER providing the service under Physical Therapy direction. Initiate Physical Therapy intervention for strengthening, bed mobility, transfers, gait, stairs, balance training, use of assistive device. DISCHARGE RECOMMENDATIONS: [] [] Home with no services [] [] Home with services [specify] [] Home with outpatient PT [] [X] SNF for continued rehabilitation as appropriate [] [facility] [] [] SNF versus LTC based on ability to participate and progress [] TREATMENT CODE/TIME:44450, 58654/ [id number]
--- NOTE | 2024-08-20 13:22 | W.PM.PROGNOT ---
Date of Service Date of service: 08/20/24 Time of Service: 13:23 Assessment and Plan Assessment and plan (1) Acute hypoxic respiratory failure: Status: Acute Assessment and plan: - remains on hiflo NS as noted above - continue ICU monitoring, continue to titrate hiflo as able - treatment of underlying cause as noted below (2) Aspiration pneumonia: Status: Ruled-out Assessment and plan: - continue empiric abx with Unasyn and doxycycline, day #4 - WBC now normal - continue SPT recommended diet of pureed/thins with supervision. - will have PT/OT eval, mostly for transfers - unfortunately, there is not much more we can do to improve aspiration outside of placing g-tube for feeds which is not advisable for this patient. appreciate palliative care input, family meeting to be scheduled to discuss alternatives. however, as patient does not seem to be improving, i am concerned that there may need to be a decision made during this hospitalization. (3) Schizophrenia: Status: Chronic Assessment and plan: - continues to be stable - continue Lexapro and mirabegron as ordered - prn ativan for agitation (4) Electrolyte abnormality: Status: Acute Assessment and plan: - suspect hyperNa and hypoK are due to poor PO intake - IV repletion of K - started gentle D5W for Na - recheck labs in the AM Subjective Subjective Interval history since last seen: Seen and examined. Awake and alert. Continues to be very pleasant. Cough seems to have worsened overnight and is much more loose. Per report, patient was having some discomfort yesterday evening and was given dilaudid with good response. Today, vitals remain stable, sats 90-92% on hiflo 60L. Exam Const General: cooperative, comfortable and no acute distress Nutritional Appearance: obese Orientation: alert, awake and oriented x3 Chest Chest: normal inspection of the chest Resp Effort & Inspection: cough Auscultation: rhonchi (at bases) Cardio Rate: regular rate Rhythm: regular rhythm Heart Sounds: S1 normal and S2 normal GI Inspection: normal to inspection Palpation: soft and no guarding Auscultation: normal bowel sounds Skin General skin exam: no rashes or lesions noted Neuro General: patient alert, patient awake and patient oriented x3 Cranial Nerves: CN's II-XI intact bilaterally Objective Last Vital Signs Temp 36.9 C 08/20/24 07:50 Pulse 115 H 08/20/24 07:20 Resp 21 08/20/24 07:20 BP 140/85 08/20/24 07:20 Pulse Ox 90 L 08/20/24 10:27 Laboratory Results - last 24 hr 08/20/24 05:35 WBC 9.56 RBC 5.53 H Hgb 13.0 Hct 44.0 MCV 80 MCH 23.5 L MCHC 29.5 L RDW 15.1 H Plt Count 327 MPV 11.1 H Immature Gran % 0.5 Neutrophils % 83.2 Lymphocytes % 11.5 Monocytes % 2.9 Eosinophils % 1.4 Basophils % 0.5 Nucleated RBC % 0.0 Absolute Neutrophils 7.95 H Absolute Lymphocytes 1.10 L Absolute Monocytes 0.28 Absolute Eosinophils 0.13 Absolute Basophils 0.05 Sodium 151 H Potassium 3.0 L Chloride 108 H Carbon Dioxide 36.9 H Anion Gap 6.1 BUN 15 Creatinine 0.7 Est GFR (CKD-EPI 2020) 93.56 Glucose 147 H Calcium 9.2 Magnesium 2.0 Time Spent with Patient Time Spent with Patient: <25 minutes Time was spent: preparing to see the patient(eg.review tests), ordering medications,tests, procedures, indepentently interpreting results, counseling the patient and care coordination
[2024-08-20] MEDS: Acetaminophen 325 MG TAB 650 MG PO (17:48)
[2024-08-20] MEDS: OLANZapine 10 MG TAB 20 MG PO (19:39)
[2024-08-20] MEDS: Levalbuterol 0.63 MG/3 ML UPD VIAL UPD (20:40)
[2024-08-21] VITALS (32 sets, daily range): BP systolic 112–130; BP diastolic 77–107; PULSE 94–134; RESP 5–34; TEMP 36.1–37.2; O2SAT 86–97
[2024-08-21] MEDS: AMPICILLIN/SULBACTAM 3 GM in Normal Saline 100 ML IVPB ×4 (01:02→20:37)
[2024-08-21] MEDS: HYDROmorphone 2 MG/ML SYR 0.5 MG IVP ×3 (01:03→05:33)
[2024-08-21] MEDS: DOXYCYCLINE 100 MG in Normal Saline 100 ML IVPB ×2 (01:42→16:24)
[2024-08-21] MEDS: Enoxaparin 40 MG/0.4 ML SYR SC ×2 (02:01→13:59)
[2024-08-21] MEDS: Acetaminophen 325 MG TAB 650 MG PO (02:35)
[2024-08-21] MEDS: Levalbuterol 0.63 MG/3 ML UPD VIAL UPD ×2 (03:35→05:33)
--- NOTE | 2024-08-21 05:33 | NUR.NOTE ---
Nursing Note: Pt had incontinent episode of stool, loose, brown, cleaned up and repositioned, became hypoxic, respirations RR=30's O2 sat=80% on high flow, rhonchi and wheezing throughout, gave stat PRN treatment and dilaudid for symptom control, o2 sat came up to 93%, respirations improved to RR=24, work of breathing decreased, will monitor.
[2024-08-21] MEDS: Bisacodyl 5 MG TABEC PO (06:25)
[2024-08-21 06:27] LABS: Abs Immature Grans 0.04 10^3/uL (0.0-0.06); Absolute Basophil Count 0.06 10^3/uL (0.0-0.2); Absolute Eosinophil Count 0.15 10^3/uL (0.0-0.7); Absolute Monocyte Count 1.07 10^3/uL (0.1-0.8); Absolute Neutrophil Count 8.11 10^3/uL (1.2-6.7); Basophils % 0.5 %; Eosinophils % 1.3 %; HCT 43.1 % (36.0-46.0); HGB 12.7 g/dL (11.2-15.7); Immature Grans % 0.3 %; Lymphocytes % 18.4 %; MCH 23.6 pg (27.0-33.0); MCHC 29.5 % (32.0-36.0); MCV 80 fL (80-95); MPV 11.2 fL (8.0-11.0); Monocytes % 9.3 %; Neutrophils % 70.2 %; Platelet Count 349 10^3/uL (130-400); RBC 5.39 10^6/uL (3.93-5.22); RDW 15.2 % (11.7-14.6); RDW-SD 43.7 fL; WBC 11.55 10^3/uL (4.4-10.8)
[2024-08-21 06:28] LABS: Absolute Lymphocyte Count 2.13 10^3/uL (1.2-3.4)
[2024-08-21 06:40] LABS: Anion Gap 6.5 mmol/L (3-11); BUN 21 mg/dL (7-18); CO2 35.5 mmol/L (21.0-32.0); CREATININE 0.8 mg/dL (0.55-1.02); Calcium 9.9 mg/dL (8.5-10.1); Chloride 106 mmol/L (98-107); Estimated GFR 79.71 (mL/min/1.73m2); Glucose 139 mg/dL (74-106); Magnesium 1.8 mg/dL (1.8-2.4); Sodium 148 mmol/L (136-145)
[2024-08-21 06:44] LABS: Potassium 2.9 mmol/L (3.5-5.1)
[2024-08-21] MEDS: Escitalopram 10 MG TAB PO (07:38)
[2024-08-21] MEDS: amLODIPine 5 MG TAB PO (07:38)
[2024-08-21] MEDS: Benzonatate 100 MG CAP 200 MG PO ×3 (07:40→20:31)
[2024-08-21] MEDS: Docusate Sodium 100 MG CAP PO ×2 (07:40→20:35)
[2024-08-21] MEDS: Mirabegron 25 MG TABCR PO (07:42)
[2024-08-21] MEDS: Omeprazole 20 MG CAPCR PO (07:42)
[2024-08-21] MEDS: Normal Saline Flush 10 ML SYR IVP ×4 (07:43→21:52)
[2024-08-21] MEDS: Cholecalciferol (Vitamin D3) 1,000 UNIT TAB 2000 UNITS PO (07:45)
[2024-08-21] MEDS: Albuterol HFA 8 GM 60 PUFF INH IH ×2 (07:51→21:09)
[2024-08-21] MEDS: Budesonide/Formoterol 160/4.5 6 GM 60 PUFF INH IH ×2 (07:51→21:10)
[2024-08-21] MEDS: POTASSIUM CHLORIDE 10 MEQ/100 ML BAG 100 MEQ IV_INF ×4 (08:36→13:59)
--- NOTE | 2024-08-21 09:23 | PDOC.CMPRO ---
Date of service: 08/21/24 Time of Service: 09:23 Care Management Progress Note Progress Note Text Progress Note Text: Christie was lying in bed with the HOB elevated when CM met with her. She is awake and very polite, conversation is somewhat limited while wearing Hi-Tim O2. She states that she feels good. Per nursing, Christie O2 requirements have been increasing throughout the day. She is currently O2 Sat is 91% on 60L, palliative is following. Discharge Anticipated Barriers to Discharge: Medical Status Patient/Family Education Needs: Review discharge instructions, discuss Ask Me Three Transportation: RCT RCT Transportation: Wheel chair van Plan: Anticipate Christie will be discharged back to the [facility], where she resides, when medically ready. She will follow up with facility providers and plan of care and transport via RCT. CM will follow and continue to assess for discharge needs. Social Determinants of Health Screening Social Determinants of Health last assessed: 08/21/24 Will the Patient Participate in the Screening?: Yes Do you worry about having a steady place to live?: no Problems where you live: no known problems In the past 12 months, have you had to go without electric, gas, oil or water in your home?: no Have you or anyone in your house had to go without enough food to eat?: no Has lack of transportation kept you from medical appointments or from doing things needed for daily living?: no Has anyone in your life made you feel unsafe or unsupported?: no How hard is it for you to pay for the very basics like food, housing, medical care, and heating? Would you say it is:: Not hard at all Do you want help finding or keeping work or a job?: I do not need or want help If for any reason you need help with day-to-day activities such as bathing, preparing meals, shopping, managing finances, etc., do you get the help you need?: I don?t need any help How often do you feel lonely or isolated from those around you?: Never Do you speak a language other than Irish at home?: No Does the patient want assistance with any of the above?: No Social Determinants of Health Comments(SDOH Details): lives at the [facility]
[2024-08-21] MEDS: Cholestyramine/Aspartame PKT 1 EACH PO (11:04)
[2024-08-21] MEDS: DEXTROSE 5%-WATER 1,000 ML 80 ML IV (11:13)
--- NOTE | 2024-08-21 12:21 | PDOC.CMPRO ---
Date of service: 08/21/24 Time of Service: 12:22 Care Management Progress Note Discharge Potential Discharge Needs: PCP F/U Appt Anticipated Barriers to Discharge: Medical Status Patient/Family Education Needs: Review discharge instructions, discuss Ask Me Three Transportation: Private vehicle Plan: Anticipate Christie will be discharged back to the [facility], where she resides, when medically ready. She will follow up with facility providers and plan of care and transport via RCT. CM will follow and continue to assess for discharge needs. Social Determinants of Health Screening Social Determinants of Health last assessed: 08/21/24 Will the Patient Participate in the Screening?: Yes Do you worry about having a steady place to live?: no Problems where you live: no known problems In the past 12 months, have you had to go without electric, gas, oil or water in your home?: no Have you or anyone in your house had to go without enough food to eat?: no Has lack of transportation kept you from medical appointments or from doing things needed for daily living?: no Has anyone in your life made you feel unsafe or unsupported?: no How hard is it for you to pay for the very basics like food, housing, medical care, and heating? Would you say it is:: Not hard at all Do you want help finding or keeping work or a job?: I do not need or want help If for any reason you need help with day-to-day activities such as bathing, preparing meals, shopping, managing finances, etc., do you get the help you need?: I don?t need any help How often do you feel lonely or isolated from those around you?: Never Do you speak a language other than Kazakh at home?: No Does the patient want assistance with any of the above?: No Social Determinants of Health Comments(SDOH Details): lives at the [facility]
--- NOTE | 2024-08-21 14:35 | PT.INTREAT ---
PT Notes Visit Reasons: Pneumonia Date: 08/21/2024 PRECAUTIONS: Standard ,Oxygen dependent currently 60HLF , telemetry, SUBJECTIVE: Pt reports she would not like to participate with OOB activity, agreed to Bed level activity. ? PAIN: none VITALS: monitored via telemetry Therapeutic procedures 35040 15mins: Instruction in therapeutic exercises to develop strength and endurance, range of motion and flexibility. HEP instruction: Provided skilled instruction in proper exercise performance: Provided skilled manual cues to facilitate proper muscle recruitment and/or movement pattern: Hooklying AAROM SLR [id number] Hooklying hip abduction [id number] Hooklying clamshells [id number] knee to chest [id number] 90/90 hip internal/extenal rotation [id number] Quad sets [id number] Glute sets [id number] Assessment: Pt refused further engagement after bed level exercises. PLAN: Continue with global strengthening and general conditioning for improved safety, mobility and activity tolerance until pt is ready for DC. TREATMENT CODE/TIME: [id number] 15mins (2:15-2:30pm)
--- NOTE | 2024-08-21 14:52 | W.PC.ACHO ---
Registration Status: Primary Language: Preferred Language: ED Information & Data Chief Complaint RespSymp 08/17/24 01:51 Triage Note Recent Hx of Pneumonia, pt 08/17/24 00:47 says no symptoms, cough, EMS stated low O2 Sat and junky sounding lungs Medical / Surgical History (Last Updated 05/14/24 @ 12:05 by Roxi Ramirez MD, [place]) Low back pain Hip pain, bilateral Polycythemia Acute respiratory failure with hypoxia and hypercapnia Aspiration pneumonia Hematemesis Gastric ulcer Asthma Cholestasis Cirrhosis Urinary retention Catatonia associated with another mental disorder Advance directive on file Has end of life care plan Weakness on right side of face Hypokalemia Hypernatremia Hypomagnesemia Esophageal dysmotility Dysphagia Bradycardia Hypothyroidism Hypertension Cognitive developmental delay Babinski response Dyspnea KJ (acute kidney injury) Schizophrenia (Last Reviewed 10/17/23 @ 06:47 by Cody Rm) H/O esophagogastroduodenoscopy H/O oophorectomy History of bilateral tubal ligation History of hernia repair Most Recent Vital Signs Temperature 37.0 C 08/21/24 00:01 Temperature Source Temporal Artery Scan 08/20/24 07:50 Pulse 119 H 08/21/24 12:01 Pulse 120 H 08/21/24 12:01 Respiratory Rate 29 H 08/21/24 12:01 Respiratory Effort Labored 08/17/24 04:40 Respiratory Depth Shallow 08/17/24 04:40 Respiratory Pattern Tachypnea 08/17/24 04:40 Blood Pressure 128/107 H 08/21/24 12:01 Blood Pressure Mean 115 08/21/24 12:01 Blood Pressure Position Supine 08/17/24 00:47 Pulse Oximetry 94 08/21/24 10:02 Oxygen Delivery Method High Flow Nasal Cannula 08/21/24 08:05 Oxygen Flow Rate 60 08/21/24 08:05 Fraction of Inspired Oxygen (FIO2) 70 08/21/24 08:05 Pain Level 0 08/20/24 07:50 Comment R wrist bp 08/19/24 15:55 Comment captured before my shift 08/21/24 06:01 Allergies Sulfa (Sulfonamide Antibiotics) Allergy (Mild, Verified 08/17/24 00:56) Skin Rash Precautions Isolation Standard precaution 08/17/24 00:57 Active Medications Generic Name Dose Route Start Last Admin Trade Name Freq PRN Reason Stop Dose Admin Acetaminophen 650 mg 08/17/24 05:49 08/21/24 02:35 Acetaminophen 325 Mg Tab PO 650 mg Q6H PRN PRN Administration Albuterol Sulfate 1 puff 08/17/24 20:00 08/21/24 07:51 Albuterol Hfa 8 Gm 60 Puff Inh IH 1 puff Q12H KALIN Administration Amlodipine Besylate 5 mg 08/17/24 12:30 08/21/24 07:38 Amlodipine 5 Mg Tab PO 5 mg DAILY KALIN Administration Benzonatate 200 mg 08/17/24 06:00 08/21/24 14:00 Benzonatate 100 Mg Cap PO 200 mg TID KALIN Administration Bisacodyl 5 mg 08/18/24 22:00 08/21/24 06:25 Bisacodyl 5 Mg Tabec PO 5 mg DAILY PRN PRN Administration Constipation Budesonide/Formoterol Fumarate 2 puff 08/17/24 12:00 08/21/24 07:51 Budesonide/Formoterol 160/4.5 6 Gm 60 Puff Inh IH 2 puff BID KALIN Administration Cholecalciferol 2,000 units 08/18/24 08:30 08/21/24 07:45 Cholecalciferol (Vitamin D3) 1,000 Unit Tab PO 2,000 units DAILY KALIN Administration Cholestyramine/Aspartame 1 each 08/18/24 11:00 08/21/24 11:04 Cholestyramine/Aspartame Pkt PO 1 each DAILY@1100 KALIN Administration Docusate Sodium 100 mg 08/19/24 08:30 08/21/24 07:40 Docusate Sodium 100 Mg Cap PO 100 mg BID KALIN Administration Enoxaparin Sodium 40 mg 08/18/24 02:00 08/21/24 13:59 Enoxaparin 40 Mg/0.4 Ml Syr SC 40 mg Q12H KALIN Administration Escitalopram Oxalate 10 mg 08/17/24 12:30 08/21/24 07:38 Escitalopram 10 Mg Tab PO 10 mg DAILY KALIN Administration Hydromorphone HCl 0.5 mg 08/20/24 01:21 08/21/24 05:33 Hydromorphone 2 Mg/Ml Syr IVP 0.5 mg Q2H PRN PRN Administration Doxycycline Hyclate 100 mg/ 100 mls @ 100 mls/hr 08/17/24 14:00 08/21/24 02:46 Sodium Chloride IVPB Infused Q12H KALIN Infusion Ampicillin Sodium/Sulbactam 100 mls @ 200 mls/hr 08/18/24 20:00 08/21/24 08:14 Sodium 3 gm/ Sodium Chloride IVPB Infused Q6H KALIN Infusion Dextrose/Water 1,000 mls @ 80 mls/hr 08/20/24 08:00 08/21/24 12:31 IV 80 mls/hr INFUSION KALIN Infusion Levalbuterol HCl 0.63 mg 08/20/24 20:24 08/21/24 05:33 Levalbuterol 0.63 Mg/3 Ml Upd Vial UPD 0.63 mg Q2H PRN PRN Administration Mirabegron 25 mg 08/17/24 12:30 08/21/24 07:42 Mirabegron 25 Mg Tabcr PO 25 mg DAILY KALIN Administration Olanzapine 20 mg 08/17/24 20:00 08/20/24 19:39 Olanzapine 10 Mg Tab PO 20 mg HS KALIN Administration Omeprazole 20 mg 08/18/24 07:30 08/21/24 07:42 Omeprazole 20 Mg Capcr PO 20 mg DAILY@0730 KALIN Administration Polyethylene Glycol 17 gm 08/17/24 12:15 08/18/24 20:52 Polyethylene Glycol 3350 17 Gm Packet PO 17 gm DAILY PRN PRN Administration Sodium Chloride 0 ml 08/17/24 02:09 08/21/24 07:43 Normal Saline Flush 10 Ml Syr IVP 10 ml PRN PRN Administration Sodium Chloride 0 ml 08/17/24 08:30 08/21/24 07:43 Normal Saline Flush 10 Ml Syr IVP 10 ml BID KALIN Administration Spironolactone 25 mg 08/17/24 12:00 08/19/24 09:18 Spironolactone 25 Mg Tab PO 25 mg DAILY KALIN Administration Torsemide 80 mg 08/19/24 18:00 08/19/24 19:02 Torsemide 20 Mg Tab PO 80 mg BID@0830,1800 KALIN Administration IV IV Catheter Type [Right Peripheral IV Antecubital] IV Catheter Type [Right Hand] Saline Lock IV Catheter Type [Left Saline Lock Antecubital] IV Catheter Gauge [Right 20 Antecubital] IV Catheter Gauge [Right Hand] 20 IV Catheter Gauge [Left 18 Antecubital] Diagnostics 08/21/24 Range/Units 05:35 WBC 11.55 H (4.4-10.8) 10^3/uL RBC 5.39 H (3.93-5.22) 10^6/uL Hgb 12.7 (11.2-15.7) g/dL Hct 43.1 (36.0-46.0) % MCV 80 (80-95) fL MCH 23.6 L (27.0-33.0) pg MCHC 29.5 L (32.0-36.0) % RDW 15.2 H (11.7-14.6) % Plt Count 349 (130-400) 10^3/uL MPV 11.2 H (8.0-11.0) fL Immature Gran % 0.3 % Neutrophils % 70.2 % Lymphocytes % 18.4 % Monocytes % 9.3 % Eosinophils % 1.3 % Basophils % 0.5 % Nucleated RBC % 0.0 (0.0-0.3) % Absolute Neutrophils 8.11 H (1.2-6.7) 10^3/uL Absolute Lymphocytes 2.13 (1.2-3.4) 10^3/uL Absolute Monocytes 1.07 H (0.1-0.8) 10^3/uL Absolute Eosinophils 0.15 (0.0-0.7) 10^3/uL Absolute Basophils 0.06 (0.0-0.2) 10^3/uL Sodium 148 H (136-145) mmol/L Potassium 2.9 L* (3.5-5.1) mmol/L Chloride 106 (98-107) mmol/L Carbon Dioxide 35.5 H (21.0-32.0) mmol/L Anion Gap 6.5 (3-11) mmol/L BUN 21 H (7-18) mg/dL Creatinine 0.8 (0.55-1.02) mg/dL Est GFR (CKD-EPI 2020) 79.71 (mL/min/1.73m2) Glucose 139 H (74-106) mg/dL Calcium 9.9 (8.5-10.1) mg/dL Magnesium 1.8 (1.8-2.4) mg/dL 08/17/24 01:25 Blood Culture - Preliminary Blood NO GROWTH 96 HOURS 08/17/24 01:04 Blood Culture - Preliminary Blood NO GROWTH 96 HOURS Intake and Output - 24 Hour Total 08/17/24 00:37 thru 08/21/24 12:31 Intake Total 96927.666 Output Total 6985 Balance 6969.666 Weight 122.3 kg Intake: IV 9594.666 Oral 4360 Output: Urine 6935 Stool 50 Other: Urine Color Dark Sofia Urine Appearance Clear Urine Odor None Comment very faintly cloudy, ctm Stool Size Moderate Stool Characteristics Soft Brown Falls Risk Assessment History of Falls No History 08/17/24 04:40 Contributing Factors Unstable 08/17/24 04:40 Ambulatory Aids Uses ambulatory device + 08/17/24 04:40 Tubes/Lines With any additional score 08/17/24 04:40 Gait Evaluation No gait disturbance 08/17/24 04:40 Cognition No cognitive impairment 08/17/24 04:40 Fall Total Score 53 08/17/24 04:40 Level of Risk High Risk 08/17/24 04:40 Problems (Last Updated 05/14/24 @ 12:05 by Roxi Ramirez MD, DC) Electrolyte abnormality (Acute) Hypoxemia (Acute) Pneumonia (Acute) Counseling regarding advance care planning and goals of care (Acute) Acute hypoxic respiratory failure (Acute) Schizophrenia (Chronic) Notes 08/21/24 05:33 (created 08/21/24 05:47) Nursing Notes by [facility] Nursing Note: Pt had incontinent episode of stool, loose, brown, cleaned up and repositioned, became hypoxic, respirations RR=30's O2 sat=80% on high flow, rhonchi and wheezing throughout, gave stat PRN treatment and dilaudid for symptom control, o2 sat came up to 93%, respirations improved to RR=24, work of breathing decreased, will monitor. Initialized on 08/21/24 05:47 - END OF NOTE 08/20/24 06:39 Nursing Notes by [facility] Nursing Note: Dr Ramirez in to see pt, updated on pt's condition, discussed overnight events, no further orders given. Initialized on 08/20/24 06:39 - END OF NOTE 08/19/24 20:00 (created 08/20/24 06:26) Nursing Notes by [facility] Nursing Note: Pt had large soft bm incontinent episode, cleaned up and pericare done, , new purewick applied, pt complaining of back pain, anxious at same time sinus tachycardia 130-140, and RR=30-40, pt repositioned in bed, Dr Lawrence in to see pt, updated on pt's condition, new orders given, see MAR. Initialized on 08/20/24 06:26 - END OF NOTE v v v v v v v v v Sending and/or Receiving Nurses: Please use comment section below to note any information pertinent to the patient hand-off not included above. Information / Comments: Report received from: PALMIRA Silva ELECTRICAL ENGINEERING TECHNICIAN student, 12:28
--- NOTE | 2024-08-21 15:56 | CMPROGNOTE_ITS ---
Date of service: 08/21/24 Time of Service: 15:30 Care Management Progress Note Progress Note Text Progress Note Text: Christie was transferred from the ICU to the med surg floor today. There has been no real change in her oxygen requirement, and plans to meet with Regina's sister to determine the course of care. Regina remains very upbeat. She smiles very easily and states she feels good. She was watching a [employer] movie when CM met with her, and we had a nice talk about our love of [employer] movies and soap operas. Regina was made aware that [facility], SW, [place], has been checking on her and misses her pleasant demeanor. This made Christie smile, she was really pleased to know she is being thought of, and stated that she misses [facility]. Discharge Potential Discharge Needs: PCP F/U Appt Anticipated Barriers to Discharge: Medical Status Patient/Family Education Needs: Review discharge instructions, discuss Ask Me Three Transportation: RCT RCT Transportation: Wheel chair van Plan: Anticipate Christie will be discharged back to the [facility], where she resides, when medically ready. She will follow up with facility providers and plan of care and transport via RCT. CM will follow and continue to assess for discharge needs. Social Determinants of Health Screening Social Determinants of Health last assessed: 08/21/24 Will the Patient Participate in the Screening?: Yes Do you worry about having a steady place to live?: no Problems where you live: no known problems In the past 12 months, have you had to go without electric, gas, oil or water in your home?: no Have you or anyone in your house had to go without enough food to eat?: no Has lack of transportation kept you from medical appointments or from doing things needed for daily living?: no Has anyone in your life made you feel unsafe or unsupported?: no How hard is it for you to pay for the very basics like food, housing, medical care, and heating? Would you say it is:: Not hard at all Do you want help finding or keeping work or a job?: I do not need or want help If for any reason you need help with day-to-day activities such as bathing, preparing meals, shopping, managing finances, etc., do you get the help you need?: I don?t need any help How often do you feel lonely or isolated from those around you?: Never Do you speak a language other than Afghan at home?: No Does the patient want assistance with any of the above?: No Social Determinants of Health Comments(SDOH Details): lives at [facility]
--- NOTE | 2024-08-21 16:53 | W.PM.PROGNOT ---
Date of Service Date of service: 08/21/24 Time of Service: 16:53 Assessment and Plan Assessment and plan (1) Acute hypoxic respiratory failure: Status: Acute Assessment and plan: - remains on hiflo NS as noted above - treatment of underlying cause as noted below - after my visit, patient was transferred out of ICU (2) Aspiration pneumonia: Status: Ruled-out Assessment and plan: - continue empiric abx with Unasyn and doxycycline, day #5 - WBC starting to climb again as patient continues to aspirate. will monitor - continue SPT recommended diet of pureed/thins with supervision. - will have PT/OT eval, mostly for transfers - unfortunately, there is not much more we can do to improve aspiration outside of placing g-tube for feeds which is not advisable for this patient. appreciate palliative care input, family meeting to be scheduled to discuss alternatives. however, as patient does not seem to be improving, i am concerned that there may need to be a decision made during this hospitalization. (3) Schizophrenia: Status: Chronic Assessment and plan: - continues to be stable - continue Lexapro and mirabegron as ordered - prn ativan for agitation (4) Electrolyte abnormality: Status: Acute Assessment and plan: - suspect hyperNa and hypoK are due to poor PO intake - IV repletion of K again today - some improvement in Na with d5w, increase rate as tolerated - recheck labs in the AM Subjective Subjective Interval history since last seen: Seen and examined. Remains alert and pleasant. Exhibits loose sounding cough which seems to be getting worse on subsequent visits. No change in O2 needs, still on 60L hiflo when I visited. Other vital stable. Exam Const General: cooperative, comfortable and no acute distress Nutritional Appearance: obese Orientation: alert, awake and oriented x3 Chest Chest: normal inspection of the chest Resp Effort & Inspection: cough Auscultation: rhonchi (at bases) Cardio Rate: regular rate Rhythm: regular rhythm Heart Sounds: S1 normal and S2 normal GI Inspection: normal to inspection Palpation: soft and no guarding Auscultation: normal bowel sounds Skin General skin exam: no rashes or lesions noted Neuro General: patient alert, patient awake and patient oriented x3 Cranial Nerves: CN's II-XI intact bilaterally Objective Last Vital Signs Temp 36.8 C 08/21/24 15:59 Pulse 109 H 08/21/24 15:59 Resp 20 08/21/24 15:59 BP 112/84 08/21/24 15:59 Pulse Ox 92 08/21/24 15:59 Laboratory Results - last 24 hr 08/21/24 05:35 WBC 11.55 H RBC 5.39 H Hgb 12.7 Hct 43.1 MCV 80 MCH 23.6 L MCHC 29.5 L RDW 15.2 H Plt Count 349 MPV 11.2 H Immature Gran % 0.3 Neutrophils % 70.2 Lymphocytes % 18.4 Monocytes % 9.3 Eosinophils % 1.3 Basophils % 0.5 Nucleated RBC % 0.0 Absolute Neutrophils 8.11 H Absolute Lymphocytes 2.13 Absolute Monocytes 1.07 H Absolute Eosinophils 0.15 Absolute Basophils 0.06 Sodium 148 H Potassium 2.9 L* Chloride 106 Carbon Dioxide 35.5 H Anion Gap 6.5 BUN 21 H Creatinine 0.8 Est GFR (CKD-EPI 2020) 79.71 Glucose 139 H Calcium 9.9 Magnesium 1.8 Time Spent with Patient Time Spent with Patient: <25 minutes Time was spent: preparing to see the patient(eg.review tests), ordering medications,tests, procedures, indepentently interpreting results, counseling the patient and care coordination
[2024-08-21] MEDS: OLANZapine 10 MG TAB 20 MG PO (20:32)
[2024-08-21] MEDS: DEXTROSE 5%-WATER 1,000 ML 100 ML IV (21:52)
[2024-08-22] VITALS (12 sets, daily range): BP systolic 124–150; BP diastolic 77–111; PULSE 105–124; RESP 17–22; TEMP 36–37.1; O2SAT 88–94
[2024-08-22] MEDS: Normal Saline Flush 10 ML SYR IVP ×6 (02:15→20:31)
[2024-08-22] MEDS: AMPICILLIN/SULBACTAM 3 GM in Normal Saline 100 ML IVPB ×3 (02:15→16:08)
[2024-08-22] MEDS: Enoxaparin 40 MG/0.4 ML SYR SC ×2 (02:16→13:47)
[2024-08-22] MEDS: DOXYCYCLINE 100 MG in Normal Saline 100 ML IVPB ×2 (03:05→16:15)
[2024-08-22 07:14] LABS: Abs Immature Grans 0.05 10^3/uL (0.0-0.06); Absolute Basophil Count 0.05 10^3/uL (0.0-0.2); Absolute Eosinophil Count 0.82 10^3/uL (0.0-0.7); Basophils % 0.4 %; Eosinophils % 6.8 %; HGB 12.5 g/dL (11.2-15.7); Immature Grans % 0.4 %; Lymphocytes % 18.3 %; MCH 23.8 pg (27.0-33.0); MCHC 29.8 % (32.0-36.0); MCV 80 fL (80-95); MPV 10.7 fL (8.0-11.0); Monocytes % 8.7 %; Neutrophils % 65.4 %; Platelet Count 319 10^3/uL (130-400); RBC 5.25 10^6/uL (3.93-5.22); RDW 15.1 % (11.7-14.6); RDW-SD 43.8 fL; WBC 12.01 10^3/uL (4.4-10.8)
[2024-08-22 07:16] LABS: Absolute Monocyte Count 1.04 10^3/uL (0.1-0.8); Absolute Neutrophil Count 7.85 10^3/uL (1.2-6.7)
[2024-08-22 07:28] LABS: Anion Gap 6.3 mmol/L (3-11); BUN 17 mg/dL (7-18); CO2 33.7 mmol/L (21.0-32.0); CREATININE 0.7 mg/dL (0.55-1.02); Calcium 9.6 mg/dL (8.5-10.1); Chloride 105 mmol/L (98-107); Estimated GFR 93.56 (mL/min/1.73m2); Glucose 130 mg/dL (74-106); Magnesium 1.6 mg/dL (1.8-2.4); Sodium 145 mmol/L (136-145)
[2024-08-22] MEDS: Escitalopram 10 MG TAB PO (08:09)
[2024-08-22] MEDS: Omeprazole 20 MG CAPCR PO (08:09)
[2024-08-22] MEDS: Docusate Sodium 100 MG CAP PO ×2 (08:09→20:30)
[2024-08-22] MEDS: amLODIPine 5 MG TAB PO (08:09)
[2024-08-22] MEDS: Cholecalciferol (Vitamin D3) 1,000 UNIT TAB 2000 UNITS PO (08:10)
[2024-08-22] MEDS: Mirabegron 25 MG TABCR PO (08:10)
[2024-08-22] MEDS: Benzonatate 100 MG CAP 200 MG PO ×3 (08:10→20:30)
[2024-08-22] MEDS: Albuterol HFA 8 GM 60 PUFF INH IH ×2 (08:39→19:58)
[2024-08-22] MEDS: Budesonide/Formoterol 160/4.5 6 GM 60 PUFF INH IH ×2 (08:39→19:58)
[2024-08-22] MEDS: POTASSIUM CHLORIDE 10 MEQ/100 ML BAG 100 MEQ IV_INF ×4 (09:44→13:46)
[2024-08-22] MEDS: Cholestyramine/Aspartame PKT 1 EACH PO (10:55)
--- NOTE | 2024-08-22 14:45 | PT.INNT ---
PT Notes Visit Reasons: Pneumonia Defer PT session today per low O2 sats and heart rate 130s. Will see tomorrow.
--- NOTE | 2024-08-22 15:01 | W.PM.PROGNOT ---
Date of Service Date of service: 08/22/24 Time of Service: 15:01 Assessment and Plan Assessment and plan (1) Acute hypoxic respiratory failure: Status: Acute Assessment and plan: - remains on hiflo NS as noted above - treatment of underlying cause as noted below (2) Aspiration pneumonia: Status: Ruled-out Assessment and plan: - continue empiric abx with Unasyn and doxycycline, day #6 - WBC still elevated again and concern is that she continues to aspirate - continue SPT recommended diet of pureed/thins with supervision. - will have PT/OT eval, mostly for transfers - unfortunately, there is not much more we can do to improve aspiration outside of placing g-tube for feeds which is not advisable for this patient. appreciate palliative care input, family meeting to be scheduled to discuss alternatives. however, as patient does not seem to be improving, i am concerned that there may need to be a decision made during this hospitalization. Dr. Ramirez is aware and making arrangements for meeting early next week. (3) Schizophrenia: Status: Chronic Assessment and plan: - continues to be stable - continue Lexapro and mirabegron as ordered - prn ativan for agitation (4) Electrolyte abnormality: Status: Acute Assessment and plan: - suspect hyperNa and hypoK are due to poor PO intake - IV repletion of K again today - some improvement in Na with d5w, increase rate as tolerated - recheck labs in the AM Subjective Subjective Interval history since last seen: Seen and examined. Again, remains awake and alert, exhibits loose cough. RT in room, just turned down hiflo. Patient still denying any symptoms. Vitals stable although patient has had some tachycardia. Exam Const General: cooperative, comfortable and no acute distress Nutritional Appearance: obese Orientation: alert, awake and oriented x3 Chest Chest: normal inspection of the chest Resp Effort & Inspection: cough Auscultation: rhonchi (at bases) Cardio Rate: regular rate Rhythm: regular rhythm Heart Sounds: S1 normal and S2 normal GI Inspection: normal to inspection Palpation: soft and no guarding Auscultation: normal bowel sounds Skin General skin exam: no rashes or lesions noted Neuro General: patient alert, patient awake and patient oriented x3 Cranial Nerves: CN's II-XI intact bilaterally Objective Last Vital Signs Temp 36.4 C L 08/22/24 14:19 Pulse 124 H 08/22/24 14:19 Resp 22 08/22/24 14:19 BP 143/93 H 08/22/24 14:19 Pulse Ox 92 08/22/24 14:19 Laboratory Results - last 24 hr 08/22/24 06:42 WBC 12.01 H RBC 5.25 H Hgb 12.5 Hct 42.0 MCV 80 MCH 23.8 L MCHC 29.8 L RDW 15.1 H Plt Count 319 MPV 10.7 Immature Gran % 0.4 Neutrophils % 65.4 Lymphocytes % 18.3 Monocytes % 8.7 Eosinophils % 6.8 Basophils % 0.4 Nucleated RBC % 0.0 Absolute Neutrophils 7.85 H Absolute Lymphocytes 2.20 Absolute Monocytes 1.04 H Absolute Eosinophils 0.82 H Absolute Basophils 0.05 Sodium 145 Potassium 3.0 L Chloride 105 Carbon Dioxide 33.7 H Anion Gap 6.3 BUN 17 Creatinine 0.7 Est GFR (CKD-EPI 2020) 93.56 Glucose 130 H Calcium 9.6 Magnesium 1.6 L Time Spent with Patient Time Spent with Patient: <25 minutes Time was spent: ordering medications,tests, procedures, referring, communicating with other health congregational care pastor, indepentently interpreting results and counseling the patient
[2024-08-22] MEDS: OLANZapine 10 MG TAB 20 MG PO (20:30)
[2024-08-23] VITALS (14 sets, daily range): BP systolic 119–148; BP diastolic 76–96; PULSE 96–110; RESP 20–22; TEMP 36.4–37.8; O2SAT 90–96
[2024-08-23] MEDS: AMPICILLIN/SULBACTAM 3 GM in Normal Saline 100 ML IVPB ×3 (00:31→10:13)
[2024-08-23] MEDS: Normal Saline Flush 10 ML SYR IVP ×4 (00:33→10:12)
[2024-08-23] MEDS: Enoxaparin 40 MG/0.4 ML SYR SC ×2 (03:09→16:21)
[2024-08-23] MEDS: DOXYCYCLINE 100 MG in Normal Saline 100 ML IVPB (05:08)
[2024-08-23 06:47] LABS: Abs Immature Grans 0.04 10^3/uL (0.0-0.06); Absolute Basophil Count 0.05 10^3/uL (0.0-0.2); Absolute Eosinophil Count 0.52 10^3/uL (0.0-0.7); Absolute Lymphocyte Count 1.95 10^3/uL (1.2-3.4); Absolute Monocyte Count 1.14 10^3/uL (0.1-0.8); Basophils % 0.4 %; Eosinophils % 4.5 %; HCT 42.7 % (36.0-46.0); HGB 13.1 g/dL (11.2-15.7); Immature Grans % 0.3 %; Lymphocytes % 16.9 %; MCH 23.9 pg (27.0-33.0); MCHC 30.7 % (32.0-36.0); MCV 78 fL (80-95); Monocytes % 9.9 %; Platelet Count 324 10^3/uL (130-400); RBC 5.47 10^6/uL (3.93-5.22); RDW 15.1 % (11.7-14.6); RDW-SD 42.5 fL; WBC 11.54 10^3/uL (4.4-10.8)
[2024-08-23 06:54] LABS: Absolute Neutrophil Count 7.85 10^3/uL (1.2-6.7)
[2024-08-23 07:00] LABS: Anion Gap 7.9 mmol/L (3-11); BUN 18 mg/dL (7-18); CO2 32.1 mmol/L (21.0-32.0); CREATININE 0.7 mg/dL (0.55-1.02); Calcium 9.6 mg/dL (8.5-10.1); Chloride 109 mmol/L (98-107); Estimated GFR 93.56 (mL/min/1.73m2); Glucose 117 mg/dL (74-106); Magnesium 1.8 mg/dL (1.8-2.4); Potassium 3.2 mmol/L (3.5-5.1); Sodium 149 mmol/L (136-145)
[2024-08-23] MEDS: Budesonide/Formoterol 160/4.5 6 GM 60 PUFF INH IH ×2 (08:27→20:20)
[2024-08-23] MEDS: Albuterol HFA 8 GM 60 PUFF INH IH ×2 (08:27→20:20)
--- NOTE | 2024-08-23 09:48 | PT.INTREAT ---
PT Notes Visit Reasons: Pneumonia Inpatient Physical Therapy Treatment Note [facility] Date: August 23, 2024 PRECAUTIONS: Standard ,Oxygen dependent currently 60HLF , telemetry, SUBJECTIVE: Pt reports she would not like to participate with OOB activity, agreed to Bed level activity. ? PAIN: none VITALS: monitored via telemetry Therapeutic procedures [id number] 15mins: Instruction in therapeutic exercises to develop strength and endurance, range of motion and flexibility. HEP instruction: Provided skilled instruction in proper exercise performance: Provided skilled manual cues to facilitate proper muscle recruitment and/or movement pattern: Hooklying AAROM SLR [id number] Hooklying hip abduction [id number] Hooklying clamshells [id number] knee to chest [id number] 90/90 hip internal/extenal rotation [id number] Quad sets [id number] Glute sets [id number] Assessment: O2 saturation dropped to 83% during bed exercises. Respiratory did come in and adjust her oxygen she returned to 92%. Be sure to touch base with nursing prior to initiating subsequent treatments. PLAN: Continue with global strengthening and general conditioning for improved safety, mobility and activity tolerance until pt is ready for DC. TREATMENT CODE/TIME: Morning session: [id number] 20mins (9:00-9:20)
[2024-08-23] MEDS: Hyaluronidase 150 UNITS VIAL 15 UNITS IJ (11:51)
--- NOTE | 2024-08-23 16:46 | W.PM.PROGNOT ---
Date of Service Date of service: 08/23/24 Time of Service: 16:46 Assessment and Plan Assessment and plan (1) Acute hypoxic respiratory failure: Status: Acute Assessment and plan: - remains on hiflo NS as noted above. Concern for recurrent aspiration events, but current FiO2 similar to her chronic 4 liters NC. - treatment of underlying cause as noted below (2) Aspiration pneumonia: Status: Ruled-out Assessment and plan: - Abx with Unasyn and doxycycline. Today day #7. Lost IV, will stop antibiotics and monitor at this point. - Still concern for continuing to aspirate, but family does not want g-tube or aggressive intervention. Goals of care are comfort focused. - continue SPT recommended diet of pureed/thins with supervision if she wants to try to eat again. Can try oral medications with fliuids. - Message from Dr. Ramirez this morning, plans transition to FAMILY SUPPORT COORDINATOR, will be in 3/3 (3) Schizophrenia: Status: Chronic Assessment and plan: - continues to be stable - on olanzapine, Lexapro, may have vomited this morning but no signs of mood changes, monitor. - prn ativan for agitation (4) Electrolyte abnormality: Status: Acute Assessment and plan: - suspect hyperNa and hypoK are due to poor PO intake - Lost IV. Will reassess goals of care before considering midline, follow up labs. Subjective Subjective Patient reports: denies diarrhea or fever Interval history since last seen: Events: Vomited up medications this morning with breakfast. She feels okay. Denies complaints. No pain currently. Exam Narrative Exam Narrative: Alert, interactive, with HFNC at 36% FIO2 but in no distress at rest. tachycardic, regular, no murmur. Lungs with good breath sounds bilaterally, no rales, scattered expiratory wheeze. Abd soft, NT. Legs 1+ edema. Objective Last Vital Signs Temp 37.8 C H 08/23/24 14:56 Pulse 110 H 08/23/24 14:56 Resp 22 08/23/24 14:56 BP 119/88 08/23/24 14:56 Pulse Ox 90 L 08/23/24 14:56 Laboratory Results - last 24 hr 08/23/24 06:06 WBC 11.54 H RBC 5.47 H Hgb 13.1 Hct 42.7 MCV 78 L MCH 23.9 L MCHC 30.7 L RDW 15.1 H Plt Count 324 MPV 11.0 Immature Gran % 0.3 Neutrophils % 68.0 Lymphocytes % 16.9 Monocytes % 9.9 Eosinophils % 4.5 Basophils % 0.4 Nucleated RBC % 0.0 Absolute Neutrophils 7.85 H Absolute Lymphocytes 1.95 Absolute Monocytes 1.14 H Absolute Eosinophils 0.52 Absolute Basophils 0.05 Sodium 149 H Potassium 3.2 L Chloride 109 H Carbon Dioxide 32.1 H Anion Gap 7.9 BUN 18 Creatinine 0.7 Est GFR (CKD-EPI 2020) 93.56 Glucose 117 H Calcium 9.6 Magnesium 1.8 Time Spent with Patient Time Spent with Patient: 35-49 minutes Time was spent: preparing to see the patient(eg.review tests), obtaining and/or reviewing separately otained hiistory, ordering medications,tests, procedures, referring, communicating with other health inspector health care facilities, indepentently interpreting results, counseling the patient and care coordination
[2024-08-23] MEDS: OLANZapine 10 MG TAB 20 MG PO (20:36)
[2024-08-24] VITALS (9 sets, daily range): BP systolic 122–129; BP diastolic 81–99; PULSE 90–91; RESP 20–22; TEMP 31–37; O2SAT 91–95
[2024-08-24] MEDS: Enoxaparin 40 MG/0.4 ML SYR SC (04:27)
--- NOTE | 2024-08-24 07:57 | PCPN_ITS ---
Date of service: 08/24/24 Time of Service: 06:30 Assessment and Plan Assessment and plan (1) Counseling regarding advance care planning and goals of care: Status: Acute (2) Acute on chronic diastolic CHF (congestive heart failure): Status: Acute Assessment and plan: Cheryle listen to what I had to say and agreed to comfort measures only. She agreed again to no transport back to [facility], she understands that when she comes off of the high flow oxygen and other medications etc. that she may . She was able to repeat this back to myself. Despite her simple outlook, Cheryle has fairly deep understanding of what is happening to her. Staff is going to work on weaning her from her high flow to her nasal cannula so that she can return to the [facility]. She is hoping this will occur today. I have notified the [facility] about this. I did communicate with Netta, and she and her brother and sister are at the bedside as I am writing this note. Cheryle is incredible she may improve from this episode, but may not. She and family know that she may . Cheryle is enthusiastic about being able to drink rahat deisy all she wants. This has been restricted because of her breathing, swallowing, and weight. I have communicated to the [facility] that she would be returning CLIENT RESOLUTION SPECIALIST, and she is in no transport per Cheryle and family. I will see her at the [facility] later this week If appropriate will transition her to hospice. I reached out to Dr. Chu both yesterday and today about plans Subjective Subjective Interval history since last seen: Cheryle states that she is feeling fine. She admits that she is always saying that she is feeling fine. Hospitalist and staff state that there is not a lot of improvement. She continues to have difficulty with maintaining saturations. She is on a low-dose of high flow oxygen. She does not appear to be improving significantly. They are concerned that she may need to be on CLIENT RESOLUTION SPECIALIST. I had spoken with Netta yesterday and she and the family are in agreement with this. I spoke at length to Cheryle about what CLIENT RESOLUTION SPECIALIST is the advantages and disadvantages etc. I did have a witness in the room Exam Narrative Exam Narrative: Cheryle is her ever enthusiastic self. She is smiling and answers me. She does have good memory over the last week and what has been done for her. Her heart is regular. Her lungs have rhonchi and rales throughout. She is able to sit up with about 50% assist. Her legs have edema. Objective Last Vital Signs Temp 97.5 F L 08/24/24 06:43 Pulse 91 H 08/24/24 06:43 Resp 20 08/24/24 06:43 BP 129/81 08/24/24 06:43 Pulse Ox 94 08/24/24 06:43
[2024-08-24] MEDS: Budesonide/Formoterol 160/4.5 6 GM 60 PUFF INH IH (08:29)
[2024-08-24] MEDS: Albuterol HFA 8 GM 60 PUFF INH IH (08:29)
[2024-08-24] MEDS: Omeprazole 20 MG CAPCR PO (09:21)
[2024-08-24] MEDS: Mirabegron 25 MG TABCR PO (09:21)
[2024-08-24] MEDS: amLODIPine 5 MG TAB PO (09:21)
[2024-08-24] MEDS: Escitalopram 10 MG TAB PO (09:21)
[2024-08-24] MEDS: Cholecalciferol (Vitamin D3) 1,000 UNIT TAB 2000 UNITS PO (09:21)
--- NOTE | 2024-08-24 10:52 | W.NUTRFU ---
Date of service: 08/24/24 Time of Service: 10:52 Nutrition Note NOTE: Pt anticipated to return to [facility] today on comfort measures only. No aggressive nutrition intervention planned at this time Time Spent in Nutritional Counseling and Treatment: 0
--- NOTE | 2024-08-24 13:04 | DSE_ITS ---
Date of service: 08/24/24 Time of Service: 13:04 DS: Diagnosis Discharge Diagnosis (1) Counseling regarding advance care planning and goals of care: Status: Acute (2) Acute on chronic diastolic CHF (congestive heart failure): Status: Acute Discharge Plan Disposition Patient Disposition: Intermediate Facility(SNF) Condition: Serious Discharge Details Reason For Visit: Pneumonia Admit Date/Time: 08/17/24 02:09 Admit Provider: Jesus Manuel Garcia Attending Provider: Jesus Manuel Garcia Primary Care Provider: Roxi Ramirez [place] [facility] Hospital Course: 69 yo female resident of [facility] with a history of schizophrenia, chronic aspiration, HFpEF, GERD and esophageal ring presented with lethargy, cough and hypoxia. She was diagnosed with a recurrence of aspiration pneumonia and treated initially with pip/tazo then amp/sulbactam and doxycycline and high flow nasal oxygen and admitted to the ICU. S he was evaluated by FARM MACHINE TENDER who recommended pureed diet and thin liquids with aspiration precautions. potassium, magnesium and fluids were given IV for hypokalemia, hypomagnesemia, and hypernatremia. She did show initial improvement, was transferred out of the ICU, but continued to have aspiration events and was vomiting food and medication. WBC was improving but went back up. Her oxygen requirements fluctuate but she continued on HFNC. The patient was followed by Dr. Ramirez from Palliative care who knows her intermodal dispatcher. There has been a pattern of recurrent aspiration. The patient and family did not want a g-tube or other invasive procedure. After multiple discussions with the patient and her family, the decision was made to transfer to [facility] status. Hospice consult was placed prior to discharge. Antibiotics were stopped and oral medications limited to her psychiatric medications. She had lost her IV access several times and the decision was made 08/[address] a midline for access given she was moving towards ECHOCARDIOGRAPHY TECH status. She was transferred back to the [facility] on ECHOCARDIOGRAPHY TECH status. She remains on 4 liters nasal cannula at the time of discharge. Home Meds and New Rx's Prescriptions: New bisacodyl 10 mg Suppository [address] DAILY PRN PRNQty: 12 0RF haloperidol lactate 5 mg/mL Solution 5 mg IM Q4H PRN PRN (Reason: Moderate agitation) Qty: 10 0RF Continued escitalopram oxalate 10 mg tablet 10 mg PO DAILY olanzapine 20 mg tablet 20 mg PO HS Qty: 30 6RF guaifenesin [Tussin] 100 mg/5 mL liquid 200 mg PO Q6H PRN polyethylene glycol 3350 [ClearLax] 17 gram/dose powder 17 g PO DAILY PRN lorazepam 0.5 mg tablet 0.5 mg PO BID Qty: 60 5RF fluticasone propion-salmeterol [Advair HFA] 115-21 mcg/actuation HFA aerosol inhaler 2 puff inhalation BID ProAir RespiClick 90 mcg/actuation aerosol powdr breath activated 1 inh inhalation Q12H acetaminophen 325 mg Tablet 650 mg PO TID PRN PRN (Reason: Pain) Discontinued torsemide 20 mg tablet 80 mg PO BID amlodipine 5 mg tablet 5 mg PO DAILY spironolactone 25 mg tablet 25 mg PO DAILY cholecalciferol (vitamin D3) 50 mcg (2,000 unit) capsule 50 mcg PO DAILY omeprazole 20 mg capsule,delayed release(DR/EC) 20 mg PO DAILY mirabegron [Myrbetriq] 25 mg tablet extended release 24 hr 25 mg PO DAILY guaifenesin 600 mg tablet extended release 12hr 600 mg PO BID Qty: 10 0RF cholestyramine (with sugar) 4 gram powder 4 pwd PO DAILY Discharge Instructions Referrals: Kisha Bourgeois MD [ [facility] STAFF PHYSICIAN] - (hospice referral, became ECHOCARDIOGRAPHY TECH at this admission. [facility] following patient as palliative provider. lives at [facility]) Activity:: Activity as Tolerated Equipment/Supplies:: No Equipment Needed Diet:: pureed thin liquids Discharge Orders Discharge Orders: Discharge Order (Routine); Ordered 08/24/24 Ordered By: Cody Rm DS: Summary Time Spent with Patient providing and/or coordinating discharge services: Greater than 30 minutes Status at Discharge Functional status at discharge: bed bound Overall status at discharge: patient is not back to baseline Mental Status: mental status grossly normal Speech and Movement: speech and movement normal Mood: congruent mood Affect: normal affect Quality:SDOH Health Related Social Needs: No Data to Display Exam Narrative Exam Narrative: Alert, interactive, with HFNC at 36% FIO2 but in no distress at rest. tachycardic, regular, no murmur. Lungs with good breath sounds bilaterally, no rales, scattered expiratory course rhonchi and hyperresonant areas. Abd soft, NT. Legs 1+ edema. Psych Mental Status: mental status grossly normal Speech and Movement: speech and movement normal Mood: congruent mood Affect: normal affect DS: Data Vitals/I&O Vitals and I&O: Vital Signs Temperature 36.4 C L 08/24/24 06:43 Temperature Source Temporal Artery Scan 08/24/24 06:43 Pulse 91 H 08/24/24 06:43 Pulse 120 H 08/21/24 12:01 Respiratory Rate 20 08/24/24 06:43 Respiratory Effort Labored 08/17/24 04:40 Respiratory Depth Shallow 08/17/24 04:40 Respiratory Pattern Tachypnea 08/17/24 04:40 Blood Pressure 129/81 08/24/24 06:43 Blood Pressure Mean 115 08/21/24 12:01 Blood Pressure Position Supine 08/17/24 00:47 Pulse Oximetry 94 08/24/24 11:09 Oxygen Delivery Method Nasal Cannula 08/24/24 11:09 Oxygen Flow Rate 1 08/24/24 11:09 Fraction of Inspired Oxygen (FIO2) 36 08/24/24 08:26 Pain Level 0 08/22/24 11:06 Comment RN Notified 08/24/24 03:36 Comment captured before my shift 08/21/24 06:01 Intake & Output 08/23/24 08/24/24 08/24/24 23:59 11:59 23:59 Intake Total 250 / 907 100 / 100 Balance 250 / 907 100 / 100 Intake: IV 100 / 400 Oral 150 / 507 100 / 100 Other: Urine Color Yellow Comment unknown amount Stool Size Small Large Stool Characteristics Soft Soft Formed Brown PFSH All Active Problems (Updated 08/24/24 @ 12:22 by Cody Rm) Electrolyte abnormality (Acute) Hypoxemia (Acute) Pneumonia (Acute) Counseling regarding advance care planning and goals of care (Acute) Acute hypoxic respiratory failure (Acute) Onychomycosis (Acute) Schizophrenia (Chronic) Acute asthmatic bronchitis (Acute) Elevated parathyroid hormone (Acute) Physician orders for life-sustaining treatment (POLST) form indicates patient wish for [id number] status (Acute) Schatzki's ring of distal esophagus (Chronic) Hematuria (Acute) Obesity, morbid, BMI 40.0-49.9 (Acute) 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 at [facility] on 08/25/2019 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 Acute on chronic diastolic CHF (congestive heart failure) (Acute) GERD (gastroesophageal reflux disease) (Chronic) Medical History (Updated 08/24/24 @ 12:22 by Cody Rm) Low back pain Hip pain, bilateral Polycythemia Acute respiratory failure with hypoxia and hypercapnia Aspiration pneumonia Hematemesis Gastric ulcer Asthma Cholestasis Cirrhosis Urinary retention Catatonia associated with another mental disorder Advance directive on file Has end of life care plan Weakness on right side of face Hypokalemia Hypernatremia Hypomagnesemia Esophageal dysmotility Dysphagia Bradycardia Hypothyroidism Hypertension Cognitive developmental delay Babinski response Dyspnea KJ (acute kidney injury) Schizophrenia Surgical History H/O esophagogastroduodenoscopy and endoscopic ultrasound 08/2019 at [facility] H/O oophorectomy History of bilateral tubal ligation History of hernia repair Social History Smoking/Tobacco Use Status: Never Smoking risk assessment performed?: Yes Alcohol Intake: never Drug use: Never Substance use type: does not use Household members: none Housing: custodial Do you feel safe at home: Yes Do you feel safe in your relationship?: Yes Additional Social history: Resident @ [facility] Time Spent with Patient Time Spent with Patient: 45-69 minutes Time was spent: preparing to see the patient(eg.review tests), obtaining and/or reviewing separately otained hiistory, ordering medications,tests, procedures, referring, communicating with other health early breastfeeding care specialist, indepentently interpreting results, counseling the patient and care coordination
--- NOTE | 2024-08-24 13:43 | CMDISCH_ITS ---
Date of service: 08/24/24 Time of Service: 13:43 LACE Index Scoring Tool Questions: Length of Stay (in days): 7 - 13 Was the patient admitted via the E.D.?: Yes Comorbidities: Congestive Heart Failure E.D. Visits: 1 Answers: Total Score: 11 Risk of Readmission: High Risk Care Management Discharge Plan Reason for Hospitalization: Pneumonia Discharge Plan: Christie is happy to be discharging back to the [facility] where she resides for LTC. Pt will follow up with palliative care and her discharge plan of care as directed. She will transport via EMS. Patient/Family Education Needs: Review discharge instructions and plan to follow up with community providers. Discuss ask me three. Services Needed at Discharge: Alf Facility ([facility]) and Transportation (EMS, [facility], Coordinated by CM) [facility] Health Related Social Needs: No Data to Display
--- NOTE | 2024-08-24 14:28 | NT_ITS ---
PT Notes Visit Reasons: Pneumonia Pt status changed to Comfort care Pt declines any further skilled PT therefore skilled PT discontinued. Pt is being discharged back to [facility]
--- NOTE | 2024-08-24 14:38 | W.PC.ACHO ---
Registration Status: Primary Language: Preferred Language: ED Information & Data Chief Complaint RespSymp 08/17/24 01:51 Triage Note Recent Hx of Pneumonia, pt 08/17/24 00:47 says no symptoms, cough, EMS stated low O2 Sat and junky sounding lungs Medical / Surgical History (Last Updated 05/14/24 @ 12:05 by Roxi Ramirez MD, [place]) Low back pain Hip pain, bilateral Polycythemia Acute respiratory failure with hypoxia and hypercapnia Aspiration pneumonia Hematemesis Gastric ulcer Asthma Cholestasis Cirrhosis Urinary retention Catatonia associated with another mental disorder Advance directive on file Has end of life care plan Weakness on right side of face Hypokalemia Hypernatremia Hypomagnesemia Esophageal dysmotility Dysphagia Bradycardia Hypothyroidism Hypertension Cognitive developmental delay Babinski response Dyspnea KJ (acute kidney injury) Schizophrenia (Last Reviewed 10/17/23 @ 06:47 by Cody Rm) H/O esophagogastroduodenoscopy H/O oophorectomy History of bilateral tubal ligation History of hernia repair Most Recent Vital Signs Temperature 36.4 C L 08/24/24 06:43 Temperature Source Temporal Artery Scan 08/24/24 06:43 Pulse 91 H 08/24/24 06:43 Pulse 120 H 08/21/24 12:01 Respiratory Rate 20 08/24/24 06:43 Respiratory Effort Labored 08/17/24 04:40 Respiratory Depth Shallow 08/17/24 04:40 Respiratory Pattern Tachypnea 08/17/24 04:40 Blood Pressure 129/81 08/24/24 06:43 Blood Pressure Mean 115 08/21/24 12:01 Blood Pressure Position Supine 08/17/24 00:47 Pulse Oximetry 94 08/24/24 11:09 Oxygen Delivery Method Nasal Cannula 08/24/24 11:09 Oxygen Flow Rate 1 08/24/24 11:09 Fraction of Inspired Oxygen (FIO2) 36 08/24/24 08:26 Pain Level 0 08/22/24 11:06 Comment RN Notified 08/24/24 03:36 Comment captured before my shift 08/21/24 06:01 Allergies Sulfa (Sulfonamide Antibiotics) Allergy (Mild, Verified 08/17/24 00:56) Skin Rash Precautions Isolation Standard precaution 08/17/24 00:57 Active Medications Generic Name Dose Route Start Last Admin Trade Name Freq PRN Reason Stop Dose Admin Acetaminophen 650 mg 08/17/24 05:49 08/21/24 02:35 Acetaminophen 325 Mg Tab PO 650 mg Q6H PRN PRN Administration Albuterol Sulfate 1 puff 08/17/24 20:00 08/24/24 08:29 Albuterol Hfa 8 Gm 60 Puff Inh IH 1 puff Q12H KALIN Administration Budesonide/Formoterol Fumarate 2 puff 08/17/24 12:00 08/24/24 08:29 Budesonide/Formoterol 160/4.5 6 Gm 60 Puff Inh IH 2 puff BID KALIN Administration Escitalopram Oxalate 10 mg 08/17/24 12:30 08/24/24 09:21 Escitalopram 10 Mg Tab PO 10 mg DAILY KALIN Administration Hyaluronidase 15 units 08/23/24 12:00 08/23/24 11:51 Hyaluronidase 150 Units Vial IJ 15 units DIRECTED KALIN Administration Levalbuterol HCl 0.63 mg 08/20/24 20:24 08/21/24 05:33 Levalbuterol 0.63 Mg/3 Ml Upd Vial UPD 0.63 mg Q2H PRN PRN Administration Olanzapine 20 mg 08/17/24 20:00 08/23/24 20:36 Olanzapine 10 Mg Tab PO 20 mg HS KALIN Administration Polyethylene Glycol 17 gm 08/17/24 12:15 08/18/24 20:52 Polyethylene Glycol 3350 17 Gm Packet PO 17 gm DAILY PRN PRN Administration Sodium Chloride 0 ml 08/17/24 02:09 08/23/24 05:09 Normal Saline Flush 10 Ml Syr IVP 10 ml PRN PRN Administration Sodium Chloride 0 ml 08/17/24 08:30 08/24/24 09:39 Normal Saline Flush 10 Ml Syr IVP Not Given BID KALIN IV IV Catheter Type [L Saline Lock Antecubital] IV Catheter Type [Right Saline Lock Antecubital] IV Catheter Type [Right Hand] Saline Lock IV Catheter Type [Left Saline Lock Antecubital] IV Catheter Gauge [L 20 Antecubital] IV Catheter Gauge [Right 20 Antecubital] IV Catheter Gauge [Right Hand] 20 IV Catheter Gauge [Left 18 Antecubital] Intake and Output - 24 Hour Total 08/17/24 00:37 thru 08/24/24 10:31 Intake Total 07501.333 Output Total 7235 Balance 93081.333 Weight 122.3 kg Intake: IV [address]27.333 Oral 5017 Output: Urine 7185 Stool 50 Other: Urine Color Yellow Urine Appearance Clear Urine Odor Normal Comment unknown amount Stool Size Large Stool Characteristics Soft Formed Brown Falls Risk Assessment History of Falls No History 08/17/24 04:40 Contributing Factors Unstable 08/17/24 04:40 Ambulatory Aids Uses ambulatory device + 08/17/24 04:40 Tubes/Lines With any additional score 08/17/24 04:40 Gait Evaluation No gait disturbance 08/17/24 04:40 Cognition No cognitive impairment 08/17/24 04:40 Fall Total Score 53 08/17/24 04:40 Level of Risk High Risk 08/17/24 04:40 Problems (Last Updated 05/14/24 @ 12:05 by Roxi Ramirez MD, DC) Electrolyte abnormality (Acute) Hypoxemia (Acute) Pneumonia (Acute) Counseling regarding advance care planning and goals of care (Acute) Acute hypoxic respiratory failure (Acute) Schizophrenia (Chronic) Acute on chronic diastolic CHF (congestive heart failure) (Acute) Notes 08/21/24 05:33 (created 08/21/24 05:47) Nursing Notes by Lux [facility] Nursing Note: Pt had incontinent episode of stool, loose, brown, cleaned up and repositioned, became hypoxic, respirations RR=30's O2 sat=80% on high flow, rhonchi and wheezing throughout, gave stat PRN treatment and dilaudid for symptom control, o2 sat came up to 93%, respirations improved to RR=24, work of breathing decreased, will monitor. Initialized on 08/21/24 05:47 - END OF NOTE 08/20/24 06:39 Nursing Notes by [facility] Nursing Note: Dr Ramirez in to see pt, updated on pt's condition, discussed overnight events, no further orders given. Initialized on 08/20/24 06:39 - END OF NOTE 08/19/24 20:00 (created 08/20/24 06:26) Nursing Notes by Lux [facility] Nursing Note: Pt had large soft bm incontinent episode, cleaned up and pericare done, , new purewick applied, pt complaining of back pain, anxious at same time sinus tachycardia 130-140, and RR=30-40, pt repositioned in bed, Dr Lawrence in to see pt, updated on pt's condition, new orders given, see MAR. Initialized on 08/20/24 06:26 - END OF NOTE v v v v v v v v v Sending and/or Receiving Nurses: Please use comment section below to note any information pertinent to the patient hand-off not included above. Information / Comments: Report given to estephania lopez from mary kay velazquez at [phone]
== END 2024-08-24 17:14 | disposition skilled nursing facility (03) | DRG 177 ==
LOC: ER 03:48 → ICU 04:33 → MS 08-21 12:36
PROVIDERS: Hospitalist; Admitting Provider Emergency Medicine; Emergency Provider Student in an Organized Health Care Education/Training Program; PCP Family Medicine; Responsible Provider Family Medicine; Visit Provider Emergency Medicine
DX: J69.0 Pneumonitis due to inhalation of food and vomit (principal); I50.33 Acute on chronic diastolic (congestive) heart failure; J96.01 Acute respiratory failure with hypoxia; E87.0 Hyperosmolality and hypernatremia; Z68.41 Body mass index [BMI] 40.0-44.9, adult; F20.9 Schizophrenia, unspecified; K22.4 Dyskinesia of esophagus; Z79.899 Other long term (current) drug therapy; J45.909 Unspecified asthma, uncomplicated; K21.9 Gastro-esophageal reflux disease without esophagitis; E66.01 Morbid (severe) obesity due to excess calories; K82.8 Other specified diseases of gallbladder; K22.2 Esophageal obstruction; D89.84 IgG4-related disease; K74.60 Unspecified cirrhosis of liver; E03.9 Hypothyroidism, unspecified; R41.89 Other symptoms and signs involving cognitive functions and awareness; E87.6 Hypokalemia; E83.42 Hypomagnesemia; T17.928A Food in respiratory tract, part unspecified causing other injury, initial encounter; W44.F3XA Food entering into or through a natural orifice, initial encounter; Z51.5 Encounter for palliative care; I11.0 Hypertensive heart disease with heart failure
CPT/HCPCS: 00123; 36415; 80048; 80053; 82805; 84145; 85027; 87040; 87637; 87641; 92526; 92610; 93005; 94640; 94761; 96365; 96367; 96368; 97110; 97162; 97530; 99291; J1650; 71045; 83605; 83735; 83880; 84484; 85025; 92507; 93010; 94664; 94667; 94668; 94760; 99223; 99232; 99239; J0295; J0696; J1171; J3470; J3475; J3480; J7060; J7614; J7620